=== PATIENT | female | born 1970 | race Caucasian/White ===

== ENCOUNTER 2021-12-31 07:33 | Emergency (ER) | payer MEDICAID, SELFPAY ==
--- OUTSIDE RECORDS SUMMARY | 2021-12-31 07:49 | XMS_ITS | Encounter Summary ---
:1970 Author Organization [facility] Address [address] [place] [address] Care Team Providers Name Role Phone Ro Norton APRN, C.N.PRaffy, D.N.P. Primary Care Provider Reason for Referral Outpatient (Routine) - Authorized Specialty Diagnoses / Procedures Referred By Contact Refer red To Contact Diagnoses Screening Mammogram Breast Cancer Ro Norton, MORGAN, [facility] Procedures BI Breast Screening Bilateral with Tomosynthesis C.N.P., D.N.P. [address] [phone] Referral ID Status Reason Start Date Expiration Date Visits V isits Requested Authorized [id number] Authorized 12/21/2021 12/21/2022 1 1 Encounter Details Date Type Department Care Team Description 12/21/2021 Orders Only [facility], Screening Mammogram MORGAN, C.N.P., Breast Cancer D.N.P. [address] [place] [phone] Social History Tobacco Use Types Packs/Day Years Used Date Smoking Tobacco: Every Day Cigarettes 0.5 Smokeless Tobacco: Never Comments: 4-5 cigarettes a day Alcohol Use Standard Drinks/Week Comments Yes 0 (1 standard drink = 0.6 oz pure alcoho l) ocassionally Alcohol Habits Answer Date Recorded How often do you have a drink containing alcohol? 2-3 times a week 02/25/2021 How many drinks containing alcohol do you have on a 1 or 2 02/25/2021 typical day when you are drinking? How often do you have six or more drinks on one Never 02/25/2021 occasion? Social Isolation Answer Date Recorded In a typical week, how many times do you More than three devon es a week 02/25/2021 talk on the phone with family, friends, or neighbors? How often do you get together with friends More than three t imes a week 02/25/2021 or relatives? How often do you attend nondenominational or Never 2021 jewish services? Do you belong to any clubs or No 02/25/2021 organizations such as nondenominational groups, unions, fraternal or athletic groups, or school groups? How often do you attend meetings of the Never 02/25/2021 clubs or organizations you belong to? Are you now , , , 02/25/2021 , never or living with a partner? Physical Activity Answer Date Recorded On average, how many days per week do you engage in moderate to 2 days 02/25/2021 strenuous exercise (like walking fast, running, jogging, dancing, swimming, biking, or other activities that cause a light or heavy sweat)? On average, how many minutes do you engage in exercise at th is 30 min 02/25/2021 level? Stress Answer Date Recorded Do you feel stress - tense, restless, nervous, or anxious, N ot at all 02/25/2021 or unable to sleep at night because your mind is troubled all the time - these days? Financial Resource Strain Answer Date Recorded How hard is it for you to pay for the very basics like Not h darinel at all 02/25/2021 food, housing, medical care, and heating? Intimate Partner Violence Answer Date Recorded Within the last year, have you been afraid of your partner o r No 02/25/2021 ex-partner? Within the last year, have you been humiliated or emotionall y No 02/25/2021 abused in other ways by your partner or ex-partner? Within the last year, have you been kicked, hit, slapped, or No 02/25/2021 otherwise physically hurt by your partner or ex-partner? Within the last year, have you been raped or forced to have any No 02/25/2021 kind of sexual activity by your partner or ex-partner? Food Insecurity Answer Date Recorded Within the past 12 months, you worried that your food would Never true 02/25/2021 run out before you got money to buy more. Within the past 12 months, the food you bought just didn't N ever true 02/25/2021 last and you didn't have money to get more. Transportation Needs Answer Date Recorded In the past 12 months, has lack of transportation kept you f rom No 02/25/2021 medical appointments or from getting medications? In the past 12 months, has lack of transportation kept you f rom No 02/25/2021 meetings, work, or getting things needed for daily living? Housing Stability Answer Date Recorded In the last 12 months, was there a time when you were not ab le No 02/25/2021 to pay the mortgage or rent on time? In the last 12 months, how many places have you lived? 1 02/25/2021 In the last 12 months, was there a time when you did not hav e a No 02/25/[address] or slept in a skilled nursing (including now)? Education Answer Date Recorded What is the highest level of school you have completed or 12 th grade 11/13/2019 the highest degree you have received? Sex Assigned at Date Recorded Female 10/14/2020 12:54 PM CDT documented as of this encounter Plan of Treatment Scheduled Orders Name Type Priority Associated Order Schedule Diagnoses BI Breast Screening Imaging RAD - Routine (most Screening Mamm ogram Expected: Bilateral with inpatients and all Breast Cancer 2021, Tomosynthesis outpatients) Expires: 06/19/2022 documented as of this encounter Visit Diagnoses Diagnosis Screening Mammogram Breast Cancer documented in this encounter Care Teams Hybrid Car Mechanic Relationship Specialty Start Date End Date Ro Norton APRN, C.N.P., PCP - General Family Medicine D.N.P. [address] [phone] documented as of this encounter
--- OUTSIDE RECORDS SUMMARY | 2021-12-31 07:49 | XMS_ITS | Encounter Summary ---
:1970 Author Organization [facility] Address [address] [place] [address] Care Team Providers Name Role Phone Ro Norton APRN, C.N.P., D.N.P. Primary Care Provider Reason for Visit Reason Comments Form Review Medical opinion form Encounter Details Date Type Department Care Team Description 08/03/2021 Clinical Communication Department of Ro Norton [facility] Review Family MedicineElan APRN, (Medical op inion [place] C.N.P., D.N.P. form ) Clinic, in [address] [address] [place], [place] [phone] (Work) [phone] Social History Tobacco Use Types Packs/Day Years [...] or relatives? How often do you attend gnosticist or Never 2021 anabaptist services? Do you belong to any clubs or No 02/25/2021 organizations such as gnosticist groups, unions, fraternal or athletic groups, or [...] place to sleep or slept in a fdc (including now)? Education Answer Date Recorded What is the highest level of school you have completed or 12 th grade 11/13/2019 the highest degree you have received? Sex Assigned at Date Recorded Female 10/14/2020 12:54 PM CDT documented as of this encounter Miscellaneous Notes Telephone Encounter - Karine Ordonez - 08/06/2021 8:27 AM CDT Form completed by the provider. Faxed back and sent to scanning. Telephone Encounter - Karine Ordonez - 08/04/2021 2:52 PM CDT Form emailed to Ro Norton for review/signature FIRE OFFICER: [facility] PHONE NUMBER: [phone] INFO REQUESTED: Medical Opinion Form INSTRUCTIONS: Fax back to [phone] Telephone Encounter - Mary Cali - 08/03/2021 3:32 PM CDT Work Comp form received by [facility] Forms Team on 08/03/21 from patient. Please allow 7-10 business days for form completion documented in this encounter Plan of Treatment Not on filedocumented as of this encounter Visit Diagnoses Not on filedocumented in this encounter Care Teams Physics Faculty Member Relationship Specialty Start Date End Date Ro Norton APRN, C.N.P., PCP - General Family Medicine D.N.P. [address] [phone] documented as of this encounter
--- OUTSIDE RECORDS SUMMARY | 2021-12-31 07:49 | XMS_ITS | Encounter Summary ---
:[address] [facility] Address [address] [place] [address] Care Team Providers Name Role Phone Ro Norton APRN, C.N.Kirsty, D.N.P. Primary Care Provider Reason for Referral Outpatient (Routine) - Authorized Specialty Diagnoses / Referred By Referred To Cont act Procedures Contact Gastroenterology and Diagnoses [facility] [place] MORA.N.Kirsty, D.N.P. [address] [place] [phone] Referral ID Status Reason Start Date Expiration Date Visits V isits Requested Authorized [id number] Authorized 09/14/2021 09/14/2022 1 1 Encounter Details Date Type Department Care Team Description 09/13/2021 Clinical Communication Department of Ro Holguin, Medicine, [place] MORGAN C.N.PRaffy, Clinic, in [place] [address] [phone] Social History Tobacco Use Types Packs/Day [...] or relatives? How often do you attend sikhism or Never 2021 baptist services? Do you belong to any clubs or No 02/25/2021 organizations such as sikhism groups, unions, fraternal or athletic groups, or [...] place to sleep or slept in a long term (including now)? Education Answer Date Recorded What is the highest level of school you have completed or 12 th grade 11/13/2019 the highest degree you have received? Sex Assigned at Date Recorded Female 10/14/2020 12:54 PM CDT documented as of this encounter Miscellaneous Notes Telephone Encounter - Ro Norton APRN, C.N.P., D.N.P. - 09/14/2021 12:50 PM CDT Order placed for GI-Hepatology. Please assist with scheduling Telephone Encounter - Nicole Carpenter L.P.N. - 09/14/2021 11:22 AM CDT Re-pended order, Routing to Ro Norton APRN, C.N.Kirsty, D.N.P. to see if she has any insight regarding this being a GI thing? Telephone Encounter - Rebekah Campbell - 09/13/2021 4:42 PM CDT ORDER/LAB/REFERRAL REQUEST: Name of test/referral/order requested: [id number] Reason for request: Ro placed an order, for Allison to be seen by Infectious Diseases, regarding Hepatitis, however that order should go to Gastroenterology. Please place a new order for this, as listed above, for [place]. Please contact Allison to schedule. Date needed: as soon as possible. Routing: -Order and Lab requests go to [facility] PCP PANEL MANAGERS -Referral Requests go to PCPs PLASTER MOLD MAKER pool Please pend orders prior to routing to PCP/Provider DOS/PASS are encouraged to pend orders prior to forwarding message documented in this encounter Plan of Treatment Scheduled Referrals Name Type Priority Associated Order Schedule Diagnoses Gastroenterology and Outpatient Routine Hepatitis C Expecte d: Hepatology - Hepatology Referral 08/21 consult (clinic) (Approximat e), Expires: 12/15/2022 documented as of this encounter Visit Diagnoses Diagnosis Hepatitis C - Primary documented in this encounter Care Teams Personal Development Mentor Relationship Specialty Start Date End Date Ro Norton APRN, C.N.P., PCP - General Family Medicine D.N.P. [address] [phone] documented as of this encounter
--- OUTSIDE RECORDS SUMMARY | 2021-12-31 07:49 | XMS_ITS | Encounter Summary ---
:1970 Author Organization [facility] Address [address] [place] [address] Care Team Providers Name Role Phone Ro Norton APRN, C.N.P., D.N.P. Primary Care Provider Encounter Details Date Type Department Care Team Description 07/23/2021 Orders Only Department of [facility] Ro Norton AP RN, Medicine, [place] C.N.P., D .N.P. [facility], [address] [place] [phone] Social History Tobacco Use Types Packs/Day Years [...] or relatives? How often do you attend zoroastrian or Never 2021 caodaism services? Do you belong to any clubs or No 02/25/2021 organizations such as zoroastrian groups, unions, fraternal or athletic groups, or [...] place to sleep or slept in a halfway (including now)? Education Answer Date Recorded What is the highest level of school you have completed or 12 th grade 11/13/2019 the highest degree you have received? Sex Assigned at Date Recorded Female 10/14/2020 12:54 PM CDT documented as of this encounter Plan of Treatment Not on filedocumented as of this encounter Visit Diagnoses Not on filedocumented in this encounter Care Teams Construction Mgr Relationship Specialty Start Date End Date Ro Norton APRN, C.N.P., PCP - General Family Medicine D.N.P. [address] [phone] documented as of this encounter
--- OUTSIDE RECORDS SUMMARY | 2021-12-31 07:49 | XMS_ITS | Encounter Summary ---
:1970 Author Organization [facility] Address [address] [place] [address] Care Team Providers Name Role Phone Ro Norton APRN, C.N.Kirsty, D.N.P. Primary Care Provider Encounter Details Date Type Department Care Team Description 10/20/2021 E-Visit [facility] Express [facility] Express [facility] Online for at the [facility] on MORGAN C. N.Kirsty Athlete's Foot the 4th Floor [address] [facility] [address] [place] [phone] Social History Tobacco Use Types Packs/Day Years [...] or relatives? How often do you attend samaritan or Never 2021 roman catholic services? Do you belong to any clubs or No 02/25/2021 organizations such as samaritan groups, unions, fraternal or athletic groups, or [...] place to sleep or slept in a assisted (including now)? Education Answer Date Recorded What is the highest level of school you have completed or 12 th grade 11/13/2019 the highest degree you have received? Sex Assigned at Date Recorded Female 10/14/2020 12:54 PM CDT documented as of this encounter Plan of Treatment Not on filedocumented as of this encounter Visit Diagnoses Diagnosis Onychomycosis - Primary documented in this encounter Care Teams Food Equipment Service Technician Relationship Specialty Start Date End Date Ro Norton APRN, C.N.P., PCP - General Family Medicine D.N.P. [address] [phone] documented as of this encounter
--- OUTSIDE RECORDS SUMMARY | 2021-12-31 07:49 | XMS_ITS | Encounter Summary ---
:1970 Author Organization [facility] Address [address] [place] [address] Care Team Providers Name Role Phone Ro Norton APRN, C.N.P., D.N.P. Primary Care Provider Reason for Visit Reason Comments Post Ed Visit Follow-up 06/26/21 Face Swelling. States she was out of Lasix and did not take for a few days and thin ks that was the cause. Other Patient states she had a yea st infection awhile ago and still feeling like she has one. Di scharge and itchy. Outpatient (Routine) - Closed Specialty Diagnoses / Procedures Referred By Contact Refer red To Contact Emergency Medicine Diagnoses Swelling Face Darryl Blackman, [facility] MORGAN, C.N.P. [address] [place] [id number] Referral ID Status Reason Start Date Expiration Date Visits Requ ested Visits Authorized [id number] Closed 06/26/2021 06/26/2022 1 1 Encounter Details Date Type Department Care Team Description 07/23/2021 Office Visit Department of [facility] Ro Norton, [place]ien[place] Estrogen Post Menopausal (Primary Dx); Medicine, Law MORA, C.N.P., Swelling F tramaine; [facility], in D.N.P. Screening Examination Diabetes Mellitus; [place] [address] Discharge V aginal; [facility] Screening For Venereal Disease; [address] [place] [address] Pap Smear Examination; [place] [address] Chronic Obstructive Pulmonary Disease Wi thout Exacerbation (HCC); [id number] Tobacco Use; Other Secondary Pulmonary Hypertension ( HCC); [phone] Hepatitis C (Fax) Social History Tobacco Use Types Packs/Day Years [...] or relatives? How often do you attend islam or Never 2021 church services? Do you belong to any clubs or No 02/25/2021 organizations such as islam groups, unions, fraternal or athletic groups, or [...] PM CDT documented as of this encounter Last Filed Vital Signs Vital Sign Reading Time Taken Comments Blood Pressure 123/86 07/23/2021 8:07 AM CDT Pulse 80 07/23/2021 8:07 AM CDT Temperature 36.2 ??C (97.2 ??F) 07/23/2021 8:07 AM CDT Respiratory Rate - - Oxygen Saturation 83% 07/23/2021 8:07 AM CDT Inhaled Oxygen Concentration - - Weight 63.9 kg (140 lb 14 oz) 07/23/2021 8:07 AM CDT Height - - Body Mass Index 19.79 09/29/2020 10:43 AM CDT documented in this encounter Progress Notes Ro Norton, MORGAN, C.N.P., D.N.P. - 07/23/2021 8:00 AM CDT SUBJECTIVE CHIEF COMPLAINT/REASON FOR VISIT Allison Schulz is a 50 y.o. female who presents for evaluation of Post Ed Visit Follow-up (06/26/21 Face Swelling. States she was out of Lasix and did not take for a few days and thinks that was the cause. ) and Other (Patient states she had a yeast infection awhile ago and still feeling like she has one. Discharge and itchy. ). HISTORY OF PRESENT ILLNESS Allison Schulz presents for the following concerns: 1. Vaginal discharge She had a suspected yeast infection and was treated with diflucan. She took both doses and reports symptoms mildly improved but did not resolve. She was sexually active one month ago with a new partner. She has white vaginal discharge without odor and with mild itching. 2. ED follow up-facial swelling This has resolved with re-initiation of her lasix. She was out of her medication for a week before her symptoms of facial swelling began. She reports that her entire body was puffy during this time, and not just her face but this was the most noticeable. 3. Social concerns Her boyfriend of several years in his sleep in December. This has caused her to lose her home which he was renting and main source of income as he supported her. She has been missing several important appointment as she does not currently have transportation andshe is currently homeless. She has been staying between her children's homes couch [employer]. She reports however that her daughter recently got a car that she is hoping she will be able to use to get to her appointments. OBJECTIVE PHYSICAL EXAMINATION Vital Signs: BP 123/86 (BP Location: Left arm, Patient Position: Sitting, Cuff Size: Regular) Pulse 80 Temp 36.2 ??C Wt 63.9 kg SpO2 (!) 83% BMI 19.79 kg/m?? Body mass index is 19.79 kg/m??. General: No acute distress. HEENT: Normocephalic. EOMI, PERRL, Canals patent, TMs normal. Oropharynx without lesion of mucosa. Neck: No nodes, no thyromegaly. No bruit auscultated. Heart: Regular rate and rhythm. No murmurs, gallops or rubs noted. Lungs: Non-labored breathing. Clear to auscultation bilaterally. No expiratory wheeze. Abdomen: Nontender to palpation. No hepato-splenomegaly. No mass. Normal bowel sounds in all 4 quadrants. Extremities: No FERNANDA. No neurovascular compromise. No cyanosis, clubbing or edema. Skin: No atypical moles or skin changes. Neuro: Alert and oriented x3, nonfocal, moving all 4 extremities. CN II-XII grossly intact. Psych: Affect is appropriate. ASSESSMENT / PLAN 1. Swelling Face Resolved. Advised patient on the importance of continuing on lasix as prescribed. - POST ED VISIT Family Medicine - Comprehensive Metabolic Panel; Future - CBC without Differential; Future - Hemoglobin A1c; Future 2. Screening Examination Diabetes Mellitus - Hemoglobin A1c 3. Discharge Vaginal Vaginitis panel positive for gardnerella, will treat with metrogel. - Vaginitis Panel; Future - Chlamydia / Gonorrhoeae Amplified RNA; Future - Chlamydia / Gonorrhoeae Amplified RNA - Vaginitis Panel 4. Screening For Venereal Disease - HBs Antigen Scrn, S; Future - Hepatitis B Core IgM Ab; Future - Hepatitis A IgM Ab, Serum; Future - HCV Ab w/Reflex to HCV PCR, Serum; Future - HBs Antibody, Serum; Future - HBc Total Ab, Serum; Future - HIV-1/-2 Ag and Ab Screen, Plasma; Future 5. Deficiency Estrogen Post Menopausal 6. Pap Smear Examination - ThinPrep w/HPV Co-Test Screen 7. Chronic Obstructive Pulmonary Disease Without Exacerbation (HCC) 8. Tobacco Use 9. Other Secondary Pulmonary Hypertension (HCC) Symptoms are stable at this time, she is due for follow up with cardiology, pulmonary and hepatology. She plans to schedule these as soon as possible as she now has transportation. 10. Hepatitis C Per patient this has not been treated. Will obtain labs for further evaluation. She has previously been referred to hepatology but has been unable to go due to transportation issues. She currently is asymptomatic but does have elevated liver enzymes. Patient was instructed to follow up in primary care if symptoms are worsening or there is no improvement over the next several days. Plan was discussed with patient and is in agreement with plan. All questions were answered, side effects of any/all new medications were discussed. Patient left in no acute distress. Ready to learn. No apparent learning barriers were identified. Learning preferences include listening. Explained diagnosis and treatment plan. Patient/Child/Caregiver expressed understanding of the content. Ro Norton APRN, C.N.P., D.N.P. Total time: 42 minutes documented in this encounter Plan of Treatment Not on filedocumented as of this encounter Procedures Procedure Name Priority Date/Time Associated Comments Diagnosis HBS ANTIGEN SCRN, S Routine 07/23/2021 8:56 AM Screening For R esults for this CDT Venereal Disease procedure a re in the results section. HIV-1/-2 AG AND AB Routine 07/23/2021 8:56 AM Screening For Re sults for this SCREEN, PLASMA CDT Venereal Disease procedure are in the results section. HCV AB W/REFLEX TO HCV Routine 07/23/2021 8:56 AM Screening Fo r Results for this PCR, S CDT Venereal Disease procedure a re in the results section. HEPATITIS A IGM AB Routine 07/23/2021 8:56 AM Screening For Re sults for this CDT Venereal Disease procedure a re in the results section. HEP B CORE AB, IGM Routine 07/23/2021 8:56 AM Screening For Re sults for this CDT Venereal Disease procedure a re in the results section. HBC TOTAL AB, SERUM Routine 07/23/2021 8:56 AM Screening For R esults for this CDT Venereal Disease procedure a re in the results section. HBS ANTIBODY, SERUM Routine 07/23/2021 8:56 AM Screening For R esults for this CDT Venereal Disease procedure a re in the results section. CBC WITHOUT Routine 07/23/2021 8:56 AM Swelling Face Results for this DIFFERENTIAL, B CDT procedure ar e in the results section. HEMOGLOBIN A1C, B Routine 07/23/2021 8:56 AM Swelling Fa ce Results for this CDT Screening procedure are i n Examination the results Diabetes Mellitus section. COMPREHENSIVE Routine 07/23/2021 8:56 AM Swelling Face Results for this METABOLIC PANEL, S/P CDT procedu re are in the results section. VAGINITIS PANEL Routine 07/23/2021 8:24 AM Discharge Vaginal R esults for this CDT procedure are i n the results section. THINPREP W/HPV CO-TEST Routine 07/23/2021 8:24 AM Pap Smear Results for this SCREEN CDT Examination procedure are i n the results section. HPV WITH GENOTYPING, Routine 07/23/2021 8:24 AM R esults for this PCR, THINPREP CDT procedure are in the results section. CHLAMYDIA/GONORRHOEAE Routine 07/23/2021 8:24 AM Discharge Vag inal Results for this AMPLIFIED RNA CDT procedure are in the results section. documented in this encounter Results (ABNORMAL) Hemoglobin A1c (07/23/2021 8:56 AM CDT) P athologist Signature Hemoglobin A1c, 6.3 (H) 4.2 - 5.6 07/23/2021 CNFL B % 9:41 AM CDT Comment: Hemoglobin A1c values of 5.7-6.4 percent indicate an increased risk for developing diabetes m sumit. In diabetic patients, HbA1c goals should be discussed with healthcare provider. Specimen Anatomical Collection Method Collection Time Receive d Time (Source) Location / / Volume Laterality Blood (Blood, 07/23/2021 8:56 AM 07/24/19 9:00 Venous) CDT AM CDT Ro Norton APRN, C.N.P., D.N.P. LAB BLOOD ADD-ON Performing Organization Address City/State/ZIP Code Phon e Number [facility]- [address] [place] [phone] [place] [address] [address] HIV-1/-2 Ag and Ab Screen, Plasma (07/23/2021 8:56 AM CDT) P athologist Signature HIV Ag/Ab Negative Negative 07/24/2021 ECLR Screen, P 12:35 PM CDT Comment: Negative result does not rule out HIV in fection. If exposure to HIV infection occurred <14 d ays ago, contact the laboratory to request additi on of HIV-1 RNA detection / quantification test. HIV-1 p24 Ag Screen, P Negative Negative 07/24/2021 12:35 PM CDT ECLR Comment: Negative result does not rule out HIV in fection. If exposure to HIV infection occurred <14 d ays ago, contact the laboratory to request additi on of HIV-1 RNA detection / quantification test. HIV-1 Ab Screen, P Negative Negative 07/24/2021 12:35 PM C DT ECLR Comment: Negative result does not rule out HIV in fection. If exposure to HIV infection occurred <14 d ays ago, contact the laboratory to request additi on of HIV-1 RNA detection / quantification test. HIV-2 Ab Screen, P Negative Negative 07/24/2021 12:35 PM C DT ECLR Comment: Negative result does not rule out HIV in fection. If exposure to HIV infection occurred <14 d ays ago, contact the laboratory to request additi on of HIV-1 RNA detection / quantification test. Specimen Anatomical Collection Method Collection Time Receive d Time (Source) Location / / Volume Laterality Blood (Blood, 07/23/2021 8:56 AM 07/24/19 22 2:37 Venous) CDT PM CDT Ro Norton APRN C.N.P., D.N.P. LAB MICROBIOLOGY - BLOOD ORDERABLES Performing Organization Address City/State/ZIP Code Phon e Number [facility]- [address] [place] [address] [phone] [facility] [place] [address] System in [address] (ABNORMAL) HBc Total Ab, Serum (07/23/2021 8:56 AM CDT) Patholo gist Method Time Signature HBc Total Ab, Positive (A) Negative 07/24/2021 ECLR w/Reflex, S 1:49 AM CDT Specimen Anatomical Collection Method Collection Time Receive d Time (Source) Location / / Volume Laterality Blood (Blood, 07/23/2021 8:56 AM 07/24/19 22 9:05 Venous) CDT PM CDT Bolivar Borden APRN.N.PRaffy, D.N.P. LAB MICROBIOLOGY - BLOOD ORDERABLES Performing Organization Address [facility] Phon e Number [facility]- [address] [place] [address] [phone] [facility] [place] [address] System in [address] HBs Antibody, Serum (07/23/2021 8:56 AM CDT) P athologist Signature HBs Antibody, Negative 07/24/2021 ECLR S 1:49 AM CDT Comment: ----REFERENCE VALUE---- Unvaccinated: Negative Vaccinated: Positive HBs Antibody, Quantitative, S <3.50 mIU/mL 07/24/2021 1:49 AM CDT ECLR Comment: ----REFERENCE VALUE---- <8.50: Negative 8.50-11.49: Indeterminate >=11.50: Positive Specimen Anatomical Collection Method Collection Time Receive d Time (Source) Location / / Volume Laterality Blood (Blood, 07/23/2021 8:56 AM 07/24/19 22 9:04 Venous) CDT PM CDT Bolivar Borden APRN.N.PRaffy, D.N.P. LAB MICROBIOLOGY - BLOOD ORDERABLES Performing Organization Address [facility] Phon e Number [facility]- [address] [place] [address] [phone] [facility] [place] [address] System [address] (ABNORMAL) HCV Ab w/Reflex to HCV PCR, Serum (07/23/2021 8:56 AM CDT) [facility] Method Time Signature HCV Ab Reactive (A) Negative 07/24/2021 ECLR Screen, S 1:50 AM CDT Comment: Biotin has been identified by the edna levy as a potential interfering substance. Higher concentrations of biotin may be found in multivitamins, mcgregor ir/nail supplements, and workout supplements. If the result d oes not match clinical observations, repeat testing af ter patient refrains from the use of supplements for at least 12 hours. Specimen Anatomical Collection Method Collection Time Receive d Time (Source) Location / / Volume Laterality Blood (Blood, 07/23/2021 8:56 AM 07/24/19 22 9:04 Venous) CDT PM CDT Narrative [facility]- [facility] - 07/24/2021 1:50 AM CDT Specimen Information: Specimen ID: [id number] Specimen Type: Blood Specimen Collection Start Date: 2 ??8:56 AM Specimen Received Date: 07/23/2021 ??9:04 PM Specimen ID: [id number] Specimen Type: Blood Specimen Collection Start Date: 2 ??8:56 AM Specimen Received Date: 07/23/2021 ??9:05 PM Ro Norton APRN, C.N.P., D.N.P. LAB MICROBIOLOGY - BLOOD ORDERABLES Performing Organization Address City/State/ZIP Code Phon e Number [facility]- [address] [place] [address] [phone] [facility] [place] [address] System in [address] Hepatitis A IgM Ab, Serum (07/23/2021 8:56 AM CDT) athologist Signature Hepatitis A Negative Negative 07/24/20[facility] Ab, S 1:49 AM CDT Comment: Biotin has been identified by the edna levy as a potential interfering substance. Higher concentrations of biotin may be found in multivitamins, mcgregor ir/nail supplements, and workout supplements. If the result d oes not match clinical observations, repeat testing af ter patient refrains from the use of supplements for at least 12 hours. Specimen Anatomical Collection Method Collection Time Receive d Time (Source) Location / / Volume Laterality Blood (Blood, 07/23/2021 8:56 AM 07/24/19 22 9:05 Venous) CDT PM CDT Bolivar Borden APRN.N.P., D.N.P. LAB MICROBIOLOGY - BLOOD ORDERABLES Performing Organization Address [facility] Phon e Number [facility]- [address] [place] [address] [phone] [facility] [place] [address] System in [address] Hepatitis B Core IgM Ab (07/23/2021 8:56 AM CDT) [facility] Method Time Signature HBc IgM Ab, S Nonreactive Nonreactive 07/24/2021 ECLR 1:49 AM CDT Comment: Biotin has been identified by the edna levy as a potential interfering substance. Higher concentrations of biotin may be found in multivitamins, mcgregor ir/nail supplements, and workout supplements. If the result d oes not match clinical observations, repeat testing af ter patient refrains from the use of supplements for at least 12 hours. Specimen Anatomical Collection Method Collection Time Receive d Time (Source) Location / / Volume Laterality Blood (Blood, 07/23/2021 8:56 AM 07/24/19 22 9:04 Venous) CDT PM CDT Bolivar Borden APRN.N.P., D.N.P. LAB MICROBIOLOGY - BLOOD ORDERABLES Performing Organization Address [facility] Phon e Number [facility]- [address] [place] [phone] [facility] [place] [address] System in [address] HBs Antigen Scrn, S (07/23/2021 8:56 AM CDT) [facility] Method Time Signature HBs Antigen Nonreactive Nonreactive 07/24/2021 ECLR Scrn, S 1:49 AM CDT Specimen Anatomical Collection Method Collection Time Receive d Time (Source) Location / / Volume Laterality Blood (Blood, 07/23/2021 8:56 AM 07/24/19 22 9:04 Venous) CDT PM CDT Bolivar Borden APRN.N.P., D.N.P. LAB MICROBIOLOGY - BLOOD ORDERABLES Performing Organization Address City/[facility] Phon e Number [facility]- [address] [place] [phone] [facility] [place] [address] System in [address] (ABNORMAL) CBC without Differential (07/23/2021 8:56 AM CDT) Patholo gist Method Time Signature Hemoglobin 17.7 (H) 11.6 - 07/23/2021 CNFL 15.0 g/dL 9:45 AM CDT Hematocrit 54.2 (H) 35.5 - 07/23/2021 CNFL 44.9 % 9:45 AM CDT Erythrocytes 5.85 (H) 3.92 - 07/23/2021 CNFL 5.13 9:45 AM CDT x10(12)/L MCV 92.6 78.2 - 07/23/2021 CNFL 97.9 fL 9:45 AM CDT RBC Distrib Width 16.7 (H) 12.2 - 07/23/2021 CNFL 16.1 % 9:45 AM CDT Platelet Count 129 (L) 157 - 371 07/23/2021 CNFL x10(9)/L 9:45 AM CDT Leukocytes 6.4 3.4 - 9.6 07/23/2021 CNFL x10(9)/L 9:45 AM CDT Specimen Anatomical Collection Method Collection Time Receive d Time (Source) Location / / Volume Laterality Blood (Blood, 07/23/2021 8:56 AM 07/24/19 9:01 Venous) CDT AM CDT Ro Norton APRN, C.N.P., D.N.P. LAB BLOOD ADD-ON Performing Organization Address City/[facility] Code Phon e Number [facility]- [address] [place] [address] [place] [address] [place] [address] (ABNORMAL) Comprehensive Metabolic Panel (07/23/2021 8:56 AM CDT) P athologist Signature Potassium, P 4.0 3.6 - 5.2 07/23/2021 CNFL mmol/L 9:34 AM CDT Sodium, P 139 135 - 145 07/23/2021 CNFL mmol/L 9:34 AM CDT Chloride, P 100 98 - 107 07/23/2021 CNFL mmol/L 9:34 AM CDT Bicarbonate, P 27 22 - 29 07/23/2021 CNFL mmol/L 9:34 AM CDT Anion Gap, P 12 7 - 15 07/23/2021 CNFL 9:34 AM CDT BUN (Blood Urea 17 6 - 21 07/23/2021 CNFL Nitrogen), P mg/dL 9:34 AM CDT Creatinine 0.79 0.59 - 07/23/2021 CNFL 1.04 mg/dL 9:34 AM CDT eGFR-Black/Afric >90 >=60 07/23/2021 CNFL an Jamaican mL/min/BSA 9:34 AM CDT Comment: ----ADDITIONAL INFORMATION---- Estimated GFR calculated using the 2009 CKD_EPI creatinine equation. eGFR Non-Black/ 89 >=60 mL/min/BSA 9:34 AM CDT CNFL Comment: ----ADDITIONAL INFORMATION---- Estimated GFR calculated using the 2009 CKD_EPI creatinine equation. Calcium, Total, P 9.3 8.6 - 10.0 mg/dL 07/23/2021 9:34 AM CDT CNFL Glucose, P 109 70 - 140 mg/dL 07/23/2021 9:34 AM CDT C NFL Protein, Total, P 6.8 6.3 - 7.9 g/dL 07/23/2021 9:34 A M CDT CNFL Albumin, P 3.8 3.5 - 5.0 g/dL 07/23/2021 9:34 AM CDT C NFL Aspartate Aminotransferase 236 (H) 8 - 43 U/L 07/23/2021 9 :34 AM CDT CNFL (AST), P Alkaline Phosphatase, P 139 (H) 35 - 104 U/L 07/23/2021 9: 34 AM CDT CNFL Alanine Aminotransferase 218 (H) 7 - 45 U/L 07/23/2021 9:3 4 AM CDT CNFL (ALT), P Bilirubin, Total, P 1.0 <=1.2 mg/dL 07/23/2021 9:34 AM CDT [facility] Specimen Anatomical Collection Method Collection Time Receive d Time (Source) Location / / Volume Laterality Blood (Blood, 07/23/2021 8:56 AM 07/24/19 9:01 Venous) CDT AM CDT Bolivar Bordne APRN.N.P., D.N.P. LAB BLOOD ADD-ON Performing Organization Address City/[facility] Phon e Number [facility]- [address] [place] [address] [place] [address] [place] [address] HPV with Genotyping, PCR, ThinPrep (07/23/2021 8:24 AM CDT) athologist [facility] HPV with Negative Negative 07/26/2021 ECLR Genotyping, 4:50 PM CDT ThinPrep, PCR Comment: Negative for high risk HPV by nucleic ac id amplification. ??The following high risk HPV types were not detected: 16, 18, 31, 33, 35, 39, 45, 51, 52, 56, 58, 59, 66, and 68 Specimen Anatomical Collection Method Collection Time Receive d Time (Source) Location / / Volume Laterality Varies 07/23/2021 8:24 AM CDT 12:56 PM CDT Ro Norton APRN, Bolivar.N.P., D.N.P. LAB MICROBIOLOGY - GENERAL ORDERABLES Performing Organization Address City/[facility] Phon e Number [facility]- [address] [place] [address] [phone] [facility] [place] [address] System in [address] ThinPrep w/HPV Co-Test Screen (07/23/2021 8:24 AM CDT) Component Value Ref Test Analysis Performed Pathologis t Range Method Time At [facility] 07/29/2021 ECLR 1:02 PM CDT Report COLT Burrows(ASCP) 07/29/2021 ECLR electronically 1:02 PM signed by CDT I verify that I have examined all relevant slides/materials for the specimen(s) and rendered or confirmed the diagnosis. Gross Description Received specimen 07/29/2021 ECL R in a ThinPrep 1:02 PM vial. CDT Pap Test Source Cervical/Endocervi 07/29/2021 ECLR lidya 1:02 PM CDT Clinical History \[id number]\ 07/29/2021 ECLR 1:02 PM CDT Interpretation Cervical/Endocervical ??(ThinPrep): 07/29/2021 ECLR 1:02 PM Satisfactory for Evaluation CDT Endocervical/transformation zone components absent Negative for Intraepithelial Lesion or Malignancy Shift in nirmal suggestive of bacterial vaginosis High Risk HPV: ??Negative Negative for High Risk HPV by nucleic acid amplification. The following High Risk HPV types were not detected: 16, 18, 31, 33, 35, 39, 45, 51, 52, 56, 58, 59, 66, and 68. Specimen Anatomical Collection Method Collection Time Receive d Time (Source) Location / / Volume Laterality Varies 07/23/2021 8:24 AM 2 (Cervix/Endocerv CDT 12:56 PM CD T ix) Narrative This result has an attachment that is no t available. Ro Norton APRN, C.N.P., D.N.P. LAB PAP PATHDX OR DERABLES Performing Organization Address City/State/ZIP Code Phon e Number [facility]- [address] [place] [address] [phone] [facility] [place] [address] System in [address] Chlamydia / Gonorrhoeae Amplified RNA (07/23/2021 8:24 AM CDT) [facility] gist Method Time Signature Source Swab, Vagina 07/26/2021 ECLR 12:49 PM CDT Chlamydia Negative Negative 07/26/2021 ECLR trachomatis 12:49 PM CDT amplified RNA Source Swab, Vagina 07/26/2021 ECLR 12:49 PM CDT Neisseria Negative Negative 07/26/2021 ECLR gonorrhoeae 12:49 PM CDT amplified RNA Specimen Anatomical Collection Method Collection Time Receive d Time (Source) Location / / Volume Laterality Varies (Vagina) 07/23/2021 8:24 AM 2021 2:36 CDT PM CDT Ro Norton APRN, C.N.P., D.N.P. LAB MICROBIOLOGY - GENERAL ORDERABLES Performing Organization Address City/State/[facility] Code Phon e Number [facility]- [address] [place] [address] [phone] [facility] [place] [address] System in [address] (ABNORMAL) Vaginitis Panel (07/23/2021 8:24 AM CDT) Patholo gist Method Time Signature Pema Negative Negative 07/23/2021 CNFL species, DNA 10:17 AM CDT Gardnerella Positive (A) Negative 07/23/2021 CNFL vaginalis, DNA 10:17 AM CDT Trichomonas Negative Negative 07/23/2021 CNFL vaginalis, DNA 10:17 AM CDT Specimen Anatomical Collection Method Collection Time Receive d Time (Source) Location / / Volume Laterality Swab (Vagina) 07/23/2021 8:24 AM 07/24/19 22 9:20 CDT AM CDT Ro Norton APRN C.N.P., D.N.P. LAB MICROBIOLOGY - GENERAL ORDERABLES Performing Organization Address City/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 [address] [place] [phone] documented as of this encounter
--- OUTSIDE RECORDS SUMMARY | 2021-12-31 07:49 | XMS_ITS | Encounter Summary ---
:1970 Author Organization [facility] Address [address] [place] [address] Care Team Providers Name Role Phone Ro Norton APRN, C.N.P., D.N.P. Primary Care Provider Encounter Details Date Type Department Care Team Description 09/22/2021 Orders Only Pharmacy Prior Auth [place] Paulette Barrera [phone] Social History Tobacco Use Types Packs/Day Years [...] or relatives? How often do you attend jewish or Never 2021 alevism services? Do you belong to any clubs or No 02/25/2021 organizations such as jewish groups, unions, fraternal or athletic groups, or [...] minutes do you engage in exercise at is 30 min 02/25/2021 level? Stress Answer [...] place to sleep or slept in a snf (including now)? Education Answer Date Recorded What is the highest level of school you have completed or 12 th grade 11/13/2019 the highest degree you have received? Sex Assigned at Date Recorded Female 10/14/2020 12:54 PM CDT documented as of this encounter Plan of Treatment Not on filedocumented as of this encounter Visit Diagnoses Not on filedocumented in this encounter Care Teams Lead Informatica Developer Relationship Specialty Start Date End Date Ro Norton APRN, C.N.P., PCP - General Family Medicine D.N.P. [id number] [place] [phone] documented as of this encounter
--- OUTSIDE RECORDS SUMMARY | 2021-12-31 07:49 | XMS_ITS | Encounter Summary ---
:1970 Author Organization [facility] Address [address] [place] [address] Care Team Providers Name Role Phone Ro Norton APRN, C.N.PRaffy, D.N.P. Primary Care Provider Encounter Details Date Type Department Care Team Description 07/26/2021 Orders Only Department of Family Ro Norton He patitis C (Primary Medicine, [place] MORGAN, C.N.P., Dx) Clinic, in [place] [address] [phone] Social History Tobacco Use Types Packs/Day Years [...] or relatives? How often do you attend gnosticism or Never 2021 islam services? Do you belong to any clubs or No 02/25/2021 organizations such as gnosticism groups, unions, fraternal or athletic groups, or [...] place to sleep or slept in a usp (including now)? Education Answer Date Recorded What [...] Primary documented in this encounter Care Teams Coal Shoveler Relationship Specialty Start Date End Date Ro Norton APRN, C.N.P., PCP - General Family Medicine D.N.P. [address] [phone] documented as of this encounter
--- OUTSIDE RECORDS SUMMARY | 2021-12-31 07:49 | XMS_ITS | Encounter Summary ---
:1970 Author Organization [facility] Address [address] [place] [address] Care Team Providers Name Role Phone Ro Norton APRN, C.N.P., D.N.P. Primary Care Provider Reason for Visit Reason Comments Form Review Inder Verbal Order Encounter Details Date Type Department Care Team Description 11/25/2021 Clinical Communication Department of Ro Norton Review Family MedicineElan APRN, (Inder Ve rbnikita Ullin C.N.P., D.N.P. Order) Clinic, in [address] [address] [place], [place] [phone] (Work) [phone] Social History Tobacco Use Types Packs/Day Years [...] or relatives? How often do you attend orthodox or Never 2021 shinto services? Do you belong to any clubs or No 02/25/2021 organizations such as orthodox groups, unions, fraternal or athletic groups, or [...] place to sleep or slept in a nursing home (including now)? Education Answer Date Recorded What is the highest level of school you have completed or 12 th grade 11/13/2019 the highest degree you have received? Sex Assigned at Date Recorded Female 10/14/2020 12:54 PM CDT documented as of this encounter Miscellaneous Notes Telephone Encounter - Meg Hensley - 11/25/2021 2:05 PM CDT Faxed back. Sent to be scanned into patient chart. Notation for electronic signature, date, full name, and credentials added. Telephone Encounter - Meg Hensley - 11/25/2021 10:24 AM CDT Form was emailed to LARRY Norton for electronic review/signature. FINISH PRODUCTION MANAGER: Inder PHONE NUMBER: [phone] INFO REQUESTED: portable oxygen INSTRUCTIONS: Fax information to [phone] documented in this encounter Plan of Treatment Not on filedocumented as of this encounter Visit Diagnoses Not on filedocumented in this encounter Care Teams Post Closer Relationship Specialty Start Date End Date Ro Norton APRN, C.N.P., PCP - General Family Medicine D.N.P. [address] [phone] documented as of this encounter
--- OUTSIDE RECORDS SUMMARY | 2021-12-31 07:49 | XMS_ITS | Encounter Summary ---
:1970 Author Organization [facility] Address [address] [place] [address] Care Team Providers Name Role Phone Ro Norton APRN, C.NDean, MileNRaffyPRaffy Primary Care Provider Encounter Details Date Type Department Care Team Description 07/23/2021 Hospital Encounter Department of Ro Norton Scr eening Lipid Laboratory Medicine in [place] MORANDean, Law Alston D.N.P. [address] [phone] Social History Tobacco Use Types Packs/Day Years [...] or relatives? How often do you attend adventist or Never 2021 jewish services? Do you belong to any clubs or No 02/25/2021 organizations such as adventist groups, unions, fraternal or athletic groups, or [...] place to sleep or slept in a longterm (including now)? Education Answer Date Recorded What is the highest level of school you have completed or 12 th grade 11/13/2019 the highest degree you have received? Sex Assigned at Date Recorded Female 10/14/2020 12:54 PM CDT documented as of this encounter Medications at Time of Discharge Medication Sig Dispensed Refills Start Date End Date albuterol 90 INHALE 2 PUFFS BY 25.5 g 3 03/31/202103/31 mcg/actuation inhaler MOUTH FOUR TIMES A DAY ascorbic acid, vitamin C, Take 100 mg by 0 (VITAMIN C) 100 mg tablet mouth daily. DME Oxygen Administer 1 L into 0 nostril(s) at bedtime. DME Order docosahexaenoic acid-epa Take 1,000 mg by 0 120-180 mg capsule mouth. fluticasone Inhale 1 puff 2 0 02/03/2021 propion-salmeteroL 250-50 (two) times a day. mcg/dose diskus inhaler fluticasone INHALE 1 PUFF BY 60 each 11 02/03/20212021 propion-salmeteroL 250-50 MOUTH TWO TIMES A mcg/dose diskus inhaler DAY, RINSE MOUTH WITH WATER AFTER USE TO REDUCE AFTERTASTE AND INCIDENCE OF CANDIDIASIS. DO NOT SWALLOW. furosemide (LASIX) 20 mg Take 1 tablet (20 90 tablet 3 05/0 10/2021 tablet mg total) by mouth daily. HYDROcodone-acetaminophen Take 1 tablet by 0 03/23 (NORCO) 5-325 mg per mouth every 4 tablet (four) hours as needed. for pain ipratropium-albuteroL Inhale 3 mL. 0 03/09/2021 0 03/09/2022 (DUONEB) 0.5-2.5 mg/3 mL nebulizer solution ipratropium-albuteroL INHALE 3 ML BY 270 mL 3 03/09/2021 03/09/2022 (DUONEB) 0.5-2.5 mg/3 mL MOUTH VIA NEBULIZER nebulizer solution FOUR TIMES A DAY NEEDED FOR SHORTNESS OF BREATH OR WHEEZING multivitamin capsule Take 1 capsule by 0 mouth daily. pramipexole (MIRAPEX) Take 2 tablets 180 tablet 3 04/15/2021 0.125 mg tablet (0.25 mg total) by mouth at bedtime. sildenafil (REVATIO) 20 Take 1 tablet (20 270 tablet 3 04/2704/27/2022 mg tabletIndications: mg total) by mouth Hypertension Pulmonary 3 (three) times a Primary (HCC) day. sildenafil (REVATIO) 20 Take 20 mg by 0 1 mg tablet mouth. zinc sulfate (ZINCATE) Take 220 mg by 0 220 (50) mg capsule mouth daily. metroNIDAZOLE (METROGEL) Insert 1 applicator 70 g 0 07/30/2021 0.75 % vaginal gel into the vagina 2 (two) times a day for 7 days. penicillin V potassium TAKE 1 TABLET BY 28 tablet 0 021 12/23/2021 (VEETIDS) 500 mg tablet MOUTH FOUR TIMES A DAY UNTIL GONE fluconazole (DIFLUCAN) Take one tablet now 2 tablet 0 06/2107/29/2021 150 mg tablet and then repeat on day 3. pramipexole (MIRAPEX) Take 2 tablets 180 tablet 3 04/15/2021 09/23/2021 0.125 mg tablet (0.25 mg total) by mouth at bedtime. documented as of this encounter Plan of Treatment Not on filedocumented as of this encounter Procedures Procedure Name Priority Date/Time Associated Diagnosis Comme nts LIPID PANEL, S Routine 07/23/2021 8:56 AM Screening Lipid Resu lts for this CDT procedure are i n the results section . documented in this encounter Results Lipid Panel (07/23/2021 8:56 AM CDT) P athologist Signature Cholesterol, 106 mg/dL 07/23/2021 CNFL Total 9:35 AM CDT Comment: ----REFERENCE VALUE---- Desirable: < 200 Borderline high: 200 - 239 High: > or = 240 Triglycerides 47 mg/dL 07/23/2021 9:35 AM CDT CNF L Comment: ----REFERENCE VALUE---- Normal: <150 Borderline high: 150-199 High: 200-499 Very high: > or =500 Cholesterol, HDL 63 >=50 mg/dL 07/23/2021 9:35 AM CDT CNFL Calculated LDL 34 mg/dL 07/23/2021 9:35 AM CDT CN FL Comment: ----REFERENCE VALUE---- Desirable: <100 mg/dL Above Desirable: 100-129 mg/dL Borderline High: 130-159 mg/dL High: 160-189 mg/dL Very High: >=190 mg/dL Cholesterol, Non-HDL, Calculated 43 mg/dL 022 9:35 AM CDT CNFL Comment: ----REFERENCE VALUE---- Desirable: <130 Above Desirable: 130-159 Borderline high: 160-189 High: 190-219 Very high: > or =220 Specimen Anatomical Collection Method Collection Time Receive d Time (Source) Location / / Volume Laterality Blood (Blood, 07/23/2021 8:56 AM 07/24/19 22 9:00 Venous) CDT AM CDT Ro Norton APRN C.N.P., D.N.P. LAB BLOOD ADD-ON Performing Organization Address City/State/ZIP Code Phon e Number [facility]- [address] [place] [id number] [place] [address] System in [address] documented in this encounter Visit Diagnoses Diagnosis Screening Lipid documented in this encounter Care Teams Billing Services Manager Relationship Specialty Start Date End Date Ro Norton APRN, C.N.P., PCP - General Family Medicine D.N.P. [address] [place], [place] [address] [address] documented as of this encounter
--- OUTSIDE RECORDS SUMMARY | 2021-12-31 07:49 | XMS_ITS | Encounter Summary ---
:1970 Author Organization [facility] Address [address] [place] [address] Care Team Providers Name Role Phone Ro Norton APRN, C.N.P., D.N.P. Primary Care Provider Encounter Details Date Type Department Care Team Description 09/21/2021 Orders Only Pharmacy Prior Auth [place] Paulette Barrera [phone] Social History Tobacco Use Types Packs/Day Years [...] or relatives? How often do you attend synagogue or Never 2021 christianity services? Do you belong to any clubs or No 02/25/2021 organizations such as synagogue groups, unions, fraternal or athletic groups, or [...] place to sleep or slept in a fci (including now)? Education Answer Date Recorded What is the highest level of school you have completed or 12 th grade 11/13/2019 the highest degree you have received? Sex Assigned at Date Recorded Female 10/14/2020 12:54 PM CDT documented as of this encounter Plan of Treatment Not on filedocumented as of this encounter Visit Diagnoses Not on filedocumented in this encounter Care Teams Double End Production Grinder Relationship Specialty Start Date End Date Ro Norton APRN, C.N.P., PCP - General Family Medicine D.N.P. [phone] [place] [phone] documented as of this encounter
--- OUTSIDE RECORDS SUMMARY | 2021-12-31 07:49 | XMS_ITS | Encounter Summary ---
:1970 Author Organization [facility] Address [address] [place] [address] Care Team Providers Name Role Phone Ro Norton APRN, C.N.P., D.N.P. Primary Care Provider Encounter Details Date Type Department Care Team Description 07/29/2021 Orders Only [facility] [employer] Ro Norton AP RN, Medicine, [place] C.N.P., D .N.P. [facility], [address] [place] [phone] Social History Tobacco Use Types Packs/Day Years [...] do you attend nondenominational or Never 2021 yarsanism services? Do you belong to any clubs [...] place to sleep or slept in a group home (including now)? Education Answer Date Recorded What is the highest level of school you have completed or 12 th grade 11/13/2019 the highest degree you have received? Sex Assigned at Date Recorded Female 10/14/2020 12:54 PM CDT documented as of this encounter Plan of Treatment Not on filedocumented as of this encounter Visit Diagnoses Not on filedocumented in this encounter Care Teams Pelletizer Tender Relationship Specialty Start Date End Date Ro Norotn APRN, C.N.P., PCP - General Family Medicine D.N.P. [address] [phone] documented as of this encounter
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
--- OUTSIDE RECORDS SUMMARY | 2021-12-31 07:50 | XMS_ITS | Encounter Summary ---
:1970 Author Organization [facility] Address [address] [place] [address] Care Team Providers Name Role Phone Ro Norton APRN, C.N.P., D.N.P. Primary Care Provider Reason for Visit Reason Comments Care Coordination Encounter Details Date Type Department Care Team Description 04/14/2021 Patient Outreach Department of Miranda Phillips, [facility] Sales Consultant rdination Cardiovascular Medicine R.N. in [facility] [address] [facility] [address] [place] [phone] Social History Tobacco Use Types Packs/Day Years Used Date Smoking Tobacco: Every Day Cigarettes Smokeless Tobacco: Never Comments: 4-5 cigarettes a [...] do you attend zoroastrian or Never 2021 denominational services? Do you belong to any clubs [...] PM CDT documented as of this encounter Progress Notes Miranda Phillips R.N. - 04/14/2021 9:41 AM CST Following up for restart of her Ambrisentan. I have been unable to reach her by phone. A message wasBatesHooko sent through the on line portal. ION BLOCK CLERK documented in this encounter Plan of Treatment Not on filedocumented as of this encounter Visit Diagnoses Not on filedocumented in this encounter Care Teams Section Weaver Relationship Specialty Start Date End Date Ro Norton APRN, C.N.P., PCP - General Family Medicine D.N.P. [address] [phone] documented as of this encounter
--- OUTSIDE RECORDS SUMMARY | 2021-12-31 07:50 | XMS_ITS | Encounter Summary ---
:1970 Author Organization [facility] Address [address] [place] [address] Care Team Providers Name Role Phone Ro Norton APRN C.N.P., D.N.P. Primary Care Provider Reason for Referral Medication Prior Authorization - Closed Specialty Diagnoses / Procedures Referred By Contact Refer red To Contact Diagnoses Hypertension Pulmonary Primary (HCC) Lubna Mcmillan M.D. [address] [place] [address] Referral ID Status Reason Start Date Expiration Date Visits Requ ested Visits Authorized [id number] Closed 1 1 DENT SERVICE COORDINATOR Encounter Details Date Type Department Care Team Description 04/27/2021 Orders Only RST CCM Lubna Mcmillan Hypertension Pulmonary [address] [facility] Michael Ansari Primary (HCC) [place], [place] [address] [facility] [address] [place] [address] Social History Tobacco Use Types Packs/Day Years [...] or relatives? How often do you attend scientology or Never 2021 episcopal services? Do you belong to any clubs or No 02/25/2021 organizations such as scientology groups, unions, [employer] or athletic groups, or school groups? How [...] place to sleep or slept in a retirement (including now)? Education Answer Date Recorded What is the highest level of school you have completed or 12 th grade 11/13/2019 the highest degree you have received? Sex Assigned at Date Recorded Female 10/14/2020 12:54 PM CDT documented as of this encounter Plan of Treatment Not on filedocumented as of this encounter Visit Diagnoses Diagnosis Hypertension Pulmonary Primary (HCC) documented in this encounter Care Teams Rehabilitation Director Relationship Specialty Start Date End Date Ro Norton APRN, C.N.P., PCP - General Family Medicine D.N.P. [address] [phone] documented as of this encounter
--- OUTSIDE RECORDS SUMMARY | 2021-12-31 07:50 | XMS_ITS | Encounter Summary ---
:1970 Author Organization [facility] Address [address] [place] [address] Care Team Providers Name Role Phone Ro Norton APRN, C.N.P., D.N.P. Primary Care Provider Encounter Details Date Type Department Care Team Description 06/04/2021 E-Visit [facility] Ingrid Steinberg E xpress Care Online for Care at the [place] Mikala MORA, M .S.N. Seasonal Allergies Building on the [address] [place], [place] [address] [facility] [address] [place], [place] [phone] (Wo rk) [address] [phone] Social History Tobacco Use Types Packs/Day Years [...] or relatives? How often do you attend adventism or Never 2021 adventism services? Do you belong to any clubs or No 02/25/2021 organizations such as adventism groups, unions, fraternal or athletic groups, or [...] as of this encounter Visit Diagnoses Diagnosis Congestion Nasal - Primary documented in this encounter Care Teams Pen Tender Relationship Specialty Start Date End Date Ro Norton APRN, C.N.P., PCP - General Family Medicine D.N.P. [address] [phone] documented as of this encounter
--- OUTSIDE RECORDS SUMMARY | 2021-12-31 07:50 | XMS_ITS | Encounter Summary ---
:1970 Author Organization [facility] Address [address] [place] [address] Care Team Providers Name Role Phone Ro Norton APRN, C.N.P., D.N.P. Primary Care Provider Reason for Visit Reason Comments Vaginal Discharge Encounter Details Date Type Department Care Team Description 07/17/2021 Telemedicine [facility] Express Sangeetha España Vaginal Care at [facility] in [place], P.A.-C. (Primary Dx) Bryon [place] [address] [facility] [address] [facility] [place] [id number] [phone] Social History Tobacco Use Types Packs/Day Years [...] or relatives? How often do you attend mormonism or Never 2021 sikhism services? Do you belong to any clubs or No 02/25/2021 organizations such as mormonism groups, unions, fraternal or athletic groups, or [...] place to sleep or slept in a fpc (including now)? Education Answer Date Recorded What is the highest level of school you have completed or 12 th grade 11/13/2019 the highest degree you have received? Sex Assigned at Date Recorded Female 10/14/2020 12:54 PM CDT documented as of this encounter Progress Notes [place]enia España P.A.-C. - 07/17/2021 11:20 AM CDT Telemedicine Visit The patient was present for a consult via real-time audio/video technology by Y[place]enia España P.A.-C., [facility] on 07/17/2021. SUBJECTIVE CHIEF COMPLAINT/REASON FOR VISIT Vaginal Discharge Allison is a 50 y.o. female who requested evaluation of Vaginal discharge. A video visit was conducted this morning with the patient from the [facility] in [place], [place]. The patient states for 2 days she has had vaginal itching and a whitish colored discharge. She has noticed moisture and wetness in the vaginal area so thinks that vaginalyeast is likely. She states she recalls having a vaginal yeast infection quite a number of years agowith similar symptoms. She states she is not concerned about sexually transmitted infections at thistime. She has currently not been on an antibiotic. She does not have type 2 diabetes. She is postmenopausal. She has no other concerns today. REVIEW OF SYSTEMS: REVIEW OF SYSTEMS MEDICAL HISTORY Reviewed briefly. ALLERGIES/CONTRAINDICATIONS Reviewed briefly. MEDICATIONS Reviewed. OBJECTIVE VITAL SIGNS This was a video encounter and no vitals completed. Home vital signs reviewed with the patient if available PHYSICAL EXAMINATION Constitutional General: She is not in acute distress. Appearance: She is not ill-appearing or toxic-appearing. Pulmonary Effort: Pulmonary effort is normal. No respiratory distress. Neurological Mental Status: She is alert and oriented to person, place, and time. ASSESSMENT / PLAN Vaginal yeast infection, presumed Diflucan 150 mg, take 1 tablet on day 1 and 1 tablet on day 3. If her vaginal symptoms do not resolve with this treatment, then she is to go into her local clinic for a eres-yx-zumn visit and evaluation. I also told the patient she could purchase an wdhh-klh-zybwfzq topical anti-yeast cream and apply this externally for some relief of her pruritus. She is to try to keep the vaginal area clean and drywith good air circulation; I therefore recommended loose fitting clothing. Patient voices understanding and is in agreement of plan. @[email or web address]@ Consult conducted via real-time audio/video technology by [place] España [facility].A.-C. [facility] Consult conducted via real-time video technology by Charleen Blanca in [facility] Rico the patient Allison Schulz on 07/17/2021. I personally spent a total of 10 minutes in yhu-mixr-iv-face video encounter performing a review of the record and/or discussion with the patient/caregiver as described above. The majority of the time was spent in the counseling and coordination of care. Y[place]enia España P.A.-C. documented in this encounter Plan of Treatment Not on filedocumented as of this encounter Visit Diagnoses Diagnosis Discharge Vaginal - Primary documented in this encounter Care Teams Rotating Equipment Specialist Relationship Specialty Start Date End Date Ro Norton APRN, C.N.P., PCP - General Family Medicine D.N.P. [address] [phone] documented as of this encounter
--- OUTSIDE RECORDS SUMMARY | 2021-12-31 07:50 | XMS_ITS | Encounter Summary ---
:1970 Author Organization [facility] Address [address] [place] [address] Care Team Providers Name Role Phone Ro Norton APRN, C.N.P., D.N.P. Primary Care Provider Encounter Details Date Type Department Care Team Description 06/22/2021 Orders Only [facility] PCP [facility] Sa rosalinda Erickson M.D. Screening Lipid [address] [place] [address] (Wo rk) Social History Tobacco Use Types Packs/Day Years [...] or relatives? How often do you attend baptism or Never 2021 evangelical services? Do you belong to any clubs or No 02/25/2021 organizations such as baptism groups, unions, fraternal or athletic groups, or [...] Not on filedocumented as of this encounter Results Lipid Panel (07/23/2021 8:56 [...] Organization Address City/State/ZIP Code Phon e Number [address] [address] [place] [address] [address] documented in this encounter Visit Diagnoses Diagnosis Screening Lipid documented in this encounter Care Teams Chief Of Planning Relationship Specialty Start Date End Date Ro Norton APRN, C.N.P., PCP - General Family Medicine D.N.P. [address] [place] [phone] documented as of this encounter
--- OUTSIDE RECORDS SUMMARY | 2021-12-31 07:50 | XMS_ITS | Encounter Summary ---
:1970 Author Organization [facility] Address [address] [place] [address] Care Team Providers Name Role Phone Ro Norton APRN, C.N.P., D.N.P. Primary Care Provider Reason for Visit Reason Comments Med Refill Encounter Details Date Type Department Care Team Description 06/25/2021 Refill Division of Pulmonary Medicine Lubna Cleary M.D. Med Refill in [facility] [address] [facility] [address] [place] [address] [place] [address] [phone] Social History Tobacco Use Types Packs/Day Years [...] do you attend samaritan or Never 2021 protestant services? Do you belong to any clubs [...] on filedocumented in this encounter Care Teams Hotel Director Relationship Specialty Start Date End Date Ro Norton APRN, C.N.P., PCP - General Family Medicine D.N.P. [address] [phone] documented as of this encounter
--- OUTSIDE RECORDS SUMMARY | 2021-12-31 07:50 | XMS_ITS | Encounter Summary ---
:1970 Author Organization [facility] Address [address] [place] [address] Care Team Providers Name Role Phone Ro Norton APRN C.N.P., D.N.P. Primary Care Provider Reason for Visit Reason Comments Med Refill Encounter Details Date Type Department Care Team Description 04/15/2021 Refill Department of Family Medicine, Angela Hernandez, Med Refill [facility], in [place] Ama[place]ani, [address] [phone] Social History Tobacco Use Types Packs/Day Years [...] do you attend synagogue or Never 2021 confucianist services? Do you belong to any clubs [...] on filedocumented in this encounter Care Teams Bottom Polisher Relationship Specialty Start Date End Date Ro Norton APRN, C.N.P., PCP - General Family Medicine D.N.P. [address] [phone] documented as of this encounter
--- OUTSIDE RECORDS SUMMARY | 2021-12-31 07:50 | XMS_ITS | Encounter Summary ---
:1970 Author Organization [facility] Address [address] [place] [address] Care Team Providers Name Role Phone Ro Norton APRN, C.NDean, D.N.P. Primary Care Provider Encounter Details Date Type Department Care Team Description 04/22/2021 E-Visit [facility] Express Paige Cooley, Expr ess Care Online for Care at the [place] MORGAN C.N.Taylor., Bladder In fection Building on the 4th D.N.P. (female anatomy, age Floor [address] [place] [address] 12-65 years) [address] [place] [phone] [phone] Social History Tobacco Use Types Packs/Day Years [...] or relatives? How often do you attend zoroastrianism or Never 2021 synagogue services? Do you belong to any clubs or No 02/25/2021 organizations such as zoroastrianism groups, unions, fraternal or athletic groups, or [...] as of this encounter Visit Diagnoses Diagnosis Symptom Urinary - Primary documented in this encounter Care Teams Robotics Engineer Relationship Specialty Start Date End Date Ro Norton APRN, C.N.P., PCP - General Family Medicine D.N.P. [address] [phone] documented as of this encounter
--- OUTSIDE RECORDS SUMMARY | 2021-12-31 07:50 | XMS_ITS | Encounter Summary ---
:1970 Author Organization [facility] Address [address] [place] [address] Care Team Providers Name Role Phone Ro Norton APRN, C.N.P., D.N.P. Primary Care Provider Encounter Details Date Type Department Care Team Description 05/18/2021 Orders Only Pharmacy Prior Auth Kayy James [phone] Social History Tobacco Use Types Packs/Day Years [...] or relatives? How often do you attend congregational or Never 2021 episcopalian services? Do you belong to any clubs or No 02/25/2021 organizations such as congregational groups, unions, fraternal or athletic groups, or [...] on filedocumented in this encounter Care Teams Parachute Accessories Attacher Relationship Specialty Start Date End Date Ro Norton APRN, C.N.P., PCP - General Family Medicine D.N.P. [address] [phone] documented as of this encounter
--- OUTSIDE RECORDS SUMMARY | 2021-12-31 07:50 | XMS_ITS | Encounter Summary ---
:1970 Author Organization [facility] Address [address] [place] [address] Care Team Providers Name Role Phone Ro Norton APRN, C.N.P., D.N.P. Primary Care Provider Reason for Visit Reason Comments Care Coordination Encounter Details Date Type Department Care Team Description 04/21/2021 Patient Outreach Department of Miranda Phillips, Dilan Lieutenant General rdination Cardiovascular Medicine R.N. in [facility] [address] [facility] [address] [place] [phone] Social History Tobacco Use Types Packs/Day Years [...] do you attend scientology or Never 2021 catholic services? Do you belong to any clubs or No 02/25/2021 organizations such as scientology groups, unions, fraternal or athletic groups, or [...] encounter Progress Notes Miranda Phillips R.N. - 04/21/2021 1:27 PM CST She has not returned calls or portal messages regarding her pulmonary arterial hypertension medication, ambrisentan. We will not make further attempts to reach her at this time. L REFEREE documented in this encounter Plan of Treatment Not on filedocumented as of this encounter Visit Diagnoses Not on filedocumented in this encounter Care Teams Professor Of Fine Art Relationship Specialty Start Date End Date Ro Norton APRN, C.N.P., PCP - General Family Medicine D.N.P. [address] [phone] documented as of this encounter
--- OUTSIDE RECORDS SUMMARY | 2021-12-31 07:50 | XMS_ITS | Encounter Summary ---
:1970 Author Organization [facility] Address [address] [place] [address] Care Team Providers Name Role Phone Ro Norton APRN C.N.P., D.N.P. Primary Care Provider Reason for Referral Outpatient (Routine) - Authorized Specialty Diagnoses / Procedures Referred By Contact Refer red To Contact Orthopedic Surgery Yolie Leigh [facility] P.A.-C. [address] [place] [address] Referral ID Status Reason Start Date Expiration Date Visits V isits Requested Authorized [id number] Authorized 04/21/2021 04/21/2022 1 1 ANALYST Outpatient (Routine) - Closed Specialty Diagnoses / Procedures Referred By Contact Refer paula To Contact Diagnoses Pain Wrist Right Yolie Leigh [facility] Procedures DX Wrist Right 3+ Views P.A.-C. [address] [place] [address] Referral ID Status Reason Start Date Expiration Date Visits Requ ested Visits Authorized [id number] Closed 04/21/2021 04/21/2022 1 1 ANALYST Reason for Visit Appointment Request (Routine) - Closed Specialty Diagnoses / Procedures Referred By Contact Refer paula To Contact Family Medicine Referral ID Status Reason Start Date Expiration Date Visits Requ ested Visits Authorized [id number] Closed 04/06/2021 04/06/2022 1 1 Encounter Details Date Type Department Care Team Description 04/21/2021 Comprehensive Visit Department of [place] Leigh Wr ist Right Orthopedic Surgery Yolie Cabrera [place] Dx[place] [address] [phone] Social History Tobacco Use Types Packs/Day Years [...] or relatives? How often do you attend mandaeism or Never 2021 baptism services? Do you belong to any clubs or No 02/25/2021 organizations such as mandaeism groups, unions, fraternal or athletic groups, or [...] place to sleep or slept in a senior living (including now)? Education Answer Date Recorded What is the highest level of school you have completed or 12 th grade 11/13/2019 the highest degree you have received? Sex Assigned at Date Recorded Female 10/14/2020 12:54 PM CDT documented as of this encounter Consult Notes Yolie Leigh P.A.-C. - 04/21/2021 10:02 AM CST SUBJECTIVE CHIEF COMPLAINT/REASON FOR VISIT Right wrist fracture. HISTORY OF PRESENT ILLNESS The patient is a right-hand dominant female who sustained an injury on 04/02/2021 when she fell on the ice fracturing her wrist, presented to [facility] on 04/03/2021 and was placed in a plaster splint which was uncomfortable for her. She had followup scheduled here, but had no-showed that appointment because she did not have a ride. She is currently living at her daughter's house. Her boyfriend recently . She does not have a vehicle. It was difficult for her to get this appointment today even. She had removed her plaster splint on her own accord a few days ago and then at leastput on a Velcro wrist splint which she has been wearing. She tells me she has been nonweightbearing.No new injuries. She has no pain with just sitting. She does try to keep this arm elevated. No previous fractures to the wrist. ALLERGIES/CONTRAINDICATIONS As noted in the EMR. MEDICAL HISTORY As noted in the EMR. SURGICAL HISTORY As noted in the EMR. SOCIAL HISTORY The patient's boyfriend recently of a heart attack. She is a 1/2 pack per day smoker, trying to quit. 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 She is currently not working. She has a son who goes to [place] and plays baseball and she has2 daughters, working. OBJECTIVE PHYSICAL EXAMINATION Right Upper Extremity: Right wrist: She does have a moderate amount of swelling of the dorsum of thewrist with pain with palpation of the wrist. The integument is intact at the digits. Motor is grossly intact. Pulses and perfusion intact. Neurosensory intact to light touch. No issues at the right elbow. Full range of motion. Pain free. DIAGNOSTICS X-rays were reviewed with Dr. Mcmahon. ASSESSMENT / PLAN #1 Right distal radius fracture, now 3 weeks out from injury PLAN: We discussed treating this conservatively, placing a cast which she will stay in for an additional 3 weeks. She will see me back for cast removal and repeat x-rays at that time. Strict nonweightbearing status. Cast care discussed. Yolie Leigh P.A.-C. CT CT Job ID: [id number]/[facility] ANALYST documented in this encounter Plan of Treatment Scheduled Referrals Name Type Priority Associated Order Schedule Diagnoses Orthopedic Surgery Outpatient Referral Routine Ex pected: office visit 05/12/2021 (clinic) (Approximate), Expires: 07/22/2022 documented as of this encounter Results DX Wrist Right 3+ Views (04/21/2021 10:35 AM OIL ANALYST) Anatomical Region Laterality Modality Upper Extremity, Wrist, Musculoskeletal RST LOS, Right Digital Radiography Musculoskeletal ARZ LOS, Muskuloskeletal FLA LOS Specimen (Source) Anatomical Collection Method Collection Time Re ceived Time Location / / Volume Laterality 04/21/2021 10:51 AM OIL ANALYST Impressions 04/21/2021 10:54 AM OIL ANALYST Impacted moderately comminuted, minimally displaced intra-articular fracture the distal right radius with extension to the radio carpal and distal radioulnar joints. Slight dorsal angulation of the distal fracture fragme nt with mild dorsal tilt of the radial articular surface. Radial inclination is preserved on the f rontal image. Subtle tiny defect of the tip of the ulnar styloid could be posttraumatic. No defin ed ulnar styloid fractures. Slight negative ulnar variance. Remainder negative. Narrative 04/21/2021 10:54 AM OIL ANALYST EXAM: ??DX WRIST RIGHT 3+ VIEWS Procedure Note Hai Dawkins M.D. - 04/21/2021Format ting of this note might be different from the original. EXAM: DX WRIST RIGHT 3+ VIEWS IMPRESSION: Impacted moderately comminuted, minimall y displaced intra-articular fracture the distal right radius with extension to the radio carpal and distal radioulnar joints. Slight dorsal angulation of the distal fracture fragme nt with mild dorsal tilt of the radial articular surface. Radial inclination is preserved on the f rontal image. Subtle tiny defect of the tip of the ulnar styloid could be posttraumatic. No defin ed ulnar styloid fractures. Slight negative ulnar variance. Remainder negative. Yolie Leigh P.A.-C. IMG DIAGNOSTIC IMAGING PRO CEDURES documented in this encounter Visit Diagnoses Diagnosis Pain Wrist Right - Primary Pain Wrist Right documented in this encounter Care Teams Wood Barrel Reconditioner Relationship Specialty Start Date End Date Ro Norton APRN, C.N.P., PCP - General Family Medicine D.N.P. [address] [phone] documented as of this encounter
--- OUTSIDE RECORDS SUMMARY | 2021-12-31 07:50 | XMS_ITS | Encounter Summary ---
:1970 Author Organization [facility] Address [address] [place] [address] Care Team Providers Name Role Phone Ro Norton APRN, C.N.P., D.N.P. Primary Care Provider Encounter Details Date Type Department Care Team Description 05/17/2021 Orders Only Pharmacy Prior Auth RO JolleyMiles [phone] Social History Tobacco Use Types Packs/Day Years [...] do you attend gnosticist or Never 2021 congregation services? Do you belong to any clubs [...] on filedocumented in this encounter Care Teams Customs Brokerage Agent Relationship Specialty Start Date End Date Ro Norton APRN, C.N.P., PCP - General Family Medicine D.N.P. [address] [phone] documented as of this encounter
--- OUTSIDE RECORDS SUMMARY | 2021-12-31 07:50 | XMS_ITS | Encounter Summary ---
:1970 Author Organization [facility] Address [address] [place] [address] Care Team Providers Name Role Phone Ro Norton APRN, C.N.P., D.N.P. Primary Care Provider Encounter Details Date Type Department Care Team Description 06/28/2021 Orders Only Division of Pulmonary Archana Mcmillan M.D. Medicine in [place], [facility] [address] [place], [place] [address] [facility] [address] [place] [address] [phone] Social History Tobacco Use Types Packs/Day Years [...] or relatives? How often do you attend pentecostalism or Never 2021 buddhist services? Do you belong to any clubs or No 02/25/2021 organizations such as pentecostalism groups, unions, fraternal or athletic groups, or [...] place to sleep or slept in a correction (including now)? Education Answer Date Recorded What is the highest level of school you have completed or 12 th grade 11/13/2019 the highest degree you have received? Sex Assigned at Date Recorded Female 10/14/2020 12:54 PM CDT documented as of this encounter Plan of Treatment Not on filedocumented as of this encounter Visit Diagnoses Not on filedocumented in this encounter Care Teams State Trooper Relationship Specialty Start Date End Date Ro Norton APRN, C.N.P., PCP - General Family Medicine D.N.P. [address] [phone] documented as of this encounter
--- OUTSIDE RECORDS SUMMARY | 2021-12-31 07:50 | XMS_ITS | Encounter Summary ---
:1970 Author Organization [facility] Address [address] [place] [address] Care Team Providers Name Role Phone Ro Norton APRN, C.N.P., D.N.P. Primary Care Provider Reason for Visit Reason Comments Rx Prior Authorization PA DENIED SILDENAFIL 20 MG T AB Encounter Details Date Type Department Care Team Description 06/08/2021 Clinical Communication Pharmacy Prior Auth Robert Mccarty Rx Prior RO [phone] Authorization (PA DENIED SILDENAF [place] 20 MG TAB) Social History Tobacco Use Types Packs/Day Years [...] or relatives? How often do you attend temple or Never 2021 episcopal services? Do you belong to any clubs or No 02/25/2021 organizations such as temple groups, unions, fraternal or athletic groups, or [...] this encounter Miscellaneous Notes Telephone Encounter - Miranda Phillips R.N. - 06/08/2021 2:38 PM CDT Her [employer] [facility] [employer] insurance terminated 04/19/2021. That is the reason behind the denial. Her cell phone is out of service. I called her home phone. She confirmed she has [employer] insurance.She did not have the letter on her with the phone number for [employer] at the time of my call. She indicates she has not received a card yet with an ID number. On 04/27/2021 the sildenafil [facility]. [facility] [place] indicates they transferred the prescription to the [facility] [employer] - . The [facility] pharmacy indicates her [place] Medicaid numberis [id number]. I called [place] Medicaid at [phone] and they indicated we should call [facility]. Trevor wait for Allison to call back with the [facility] number. Telephone Encounter - Robert Mccarty - 06/08/2021 12:44 PM CDT Images from the original note were not included. The patient's health insurer has denied prior authorization for SILDENAFIL 20 MG TAB. A quick view of the denial reason is in this communication message. To view the denial letter: 1. Go to Snapshot 2. Go to the purple Medications box 3. Click on the blue Prior Authorizations link 4. Under Denied, click on the blue medication link to open and view the attachment. As the prescriber your options are: ??? Appeal the decision to the insurer directly (see denial letter for how to appeal). ??? Write a new Rx for an alternative medication therapy. ??? Release the Rx to the pharmacy so the patient can pay out of pocket if they desire. To Release Rx: Open this encounter, go to Meds & Orders, click on the medication, and click the blue ???Release Rx?? button. PLEASE NOTE: If the ???Release Rx?? button is not visible, the Rx has already been released to the pharmacy. If you have questions, please reply via QuickNote to Taylor AGUDELO. Thank you, The [facility] Team documented in this encounter Plan of Treatment Not on filedocumented as of this encounter Visit Diagnoses Not on filedocumented in this encounter Care Teams Gift Basket Packer Relationship Specialty Start Date End Date Ro Norton APRN, C.N.P., PCP - General Family Medicine D.N.P. [address] [phone] documented as of this encounter
--- OUTSIDE RECORDS SUMMARY | 2021-12-31 07:50 | XMS_ITS | Encounter Summary ---
:1970 Author Organization [facility] Address [address] [place] [address] Care Team Providers Name Role Phone Ro Norton APRN, C.N.P., D.N.P. Primary Care Provider Reason for Visit Reason Comments Med Refill Encounter Details Date Type Department Care Team Description 03/31/2021 Clinical Communication [facility] Karine Coles Med Refill [place] A, Pharm.D., [address] [place] [address] R.Ph. [place] [phone] [facility] [phone] [place] [phone] Social History Tobacco Use Types Packs/Day Years [...] or relatives? How often do you attend sabianist or Never 2021 jainism services? Do you belong to any clubs or No 02/25/2021 organizations such as sabianist groups, unions, fraternal or athletic groups, or [...] encounter Miscellaneous Notes Telephone Encounter - Karine Coles, Pharm.D., R.Ph. - 03/31/2021 9:59 AM CST Patient requesting a refill of albuterol inhaler. Thank you, [facility] - [place] T LINER documented in this encounter Plan of Treatment Not on filedocumented as of this encounter Visit Diagnoses Not on filedocumented in this encounter Care Teams Geology Associate Relationship Specialty Start Date End Date Ro Norton APRN, C.N.P., PCP - General Family Medicine D.N.P. [address] [phone] documented as of this encounter
--- OUTSIDE RECORDS SUMMARY | 2021-12-31 07:50 | XMS_ITS | Encounter Summary ---
:1970 Author Organization [facility] Address [address] [place] [address] Care Team Providers Name Role Phone Ro Norton APRN, C.N.P., D.N.P. Primary Care Provider Reason for Referral Outpatient (Routine) - Closed Specialty Diagnoses / Procedures Referred By Contact Refer red To Contact Emergency Medicine Diagnoses Swelling Face Darryl Blackman, [facility] MORGAN, C.N.P. [address] [place] [address] Referral ID Status Reason Start Date Expiration Date Visits Requ ested Visits Authorized [id number] Closed 06/26/2021 06/26/2022 1 1 Reason for Visit Reason Comments Facial Swelling Ongoing facial swelling for about two weeks. No difficulty with breathing. Encounter Details Date Type Department Care Team Description 06/26/2021 Emergency [facility] Darryl Blackman , Swelling Face (Primary Dx); Department TECHNICAL ADMINISTRATOR, C.N.P. Allergy Unspecified Initial [address] [place] [address] [place] [phone] (Wo rk) Social History Tobacco Use Types [...] or relatives? How often do you attend scientologist or Never 2021 mandaeism services? Do you belong to any clubs or No 02/25/2021 organizations such as scientologist groups, unions, fraternal or athletic groups, or [...] to sleep or slept in a senior care (including now)? Education Answer Date Recorded What is the highest level of school you have completed or 12 th grade 11/13/2019 the highest degree you have received? Sex Assigned at Date Recorded Female 10/14/2020 12:54 PM CDT documented as of this encounter Last Filed Vital Signs Vital Sign Reading Time Taken Comments Blood Pressure 135/99 06/26/2021 12:00 PM CDT Pulse 90 06/26/2021 12:00 PM CDT Temperature 36.5 ??C (97.7 ??F) 06/26/2021 11:53 AM CDT Respiratory Rate - - Oxygen Saturation 93% 06/26/2021 12:00 PM CDT Inhaled Oxygen Concentration - - Weight 78.5 kg (173 lb 1 oz) 06/26/2021 11:54 AM CDT Height - - Body Mass Index 24.31 09/29/2020 10:43 AM CDT documented in this encounter Discharge Instructions AttachmentsThe following attachments cannot be sent through Care Everywhere. Allergies Adult Nppy-oq-Uyhf (Pashto)documented in this encounter Medications at Time of Discharge Medication Sig Dispensed Refills Start Date End Date ascorbic acid, vitamin C, Take 100 mg by 0 (VITAMIN C) 100 mg tablet mouth daily. DME Oxygen Administer 1 L into 0 nostril(s) at bedtime. DME Order docosahexaenoic acid-epa Take 1,000 mg by 0 120-180 mg capsule mouth. fluticasone Inhale 1 puff 2 0 02/03/2021 propion-salmeteroL 250-50 (two) times a day. mcg/dose diskus inhaler ipratropium-albuteroL Inhale 3 mL. 0 03/09/2021 0 03/09/2022 (DUONEB) 0.5-2.5 mg/3 mL nebulizer solution multivitamin capsule Take 1 capsule by 0 mouth daily. sildenafil (REVATIO) 20 Take 1 tablet (20 270 tablet 3 04/2704/27/2022 mg tabletIndications: mg total) by mouth Hypertension Pulmonary 3 (three) times a Primary (HCC) day. sildenafil (REVATIO) 20 Take 20 mg by 0 1 mg tablet mouth. zinc sulfate (ZINCATE) Take 220 mg by 0 220 (50) mg capsule mouth daily. albuterol 90 INHALE 2 PUFFS BY 25.5 g 3 03/31/202103/31 mcg/actuation inhaler MOUTH FOUR TIMES A DAY fluticasone INHALE 1 PUFF BY 60 each 11 02/03/20212021 propion-salmeteroL 250-50 MOUTH TWO TIMES A mcg/dose diskus inhaler DAY, RINSE MOUTH WITH WATER AFTER USE TO REDUCE AFTERTASTE AND INCIDENCE OF CANDIDIASIS. DO NOT SWALLOW. HYDROcodone-acetaminophen Take 1 tablet by 0 03/23 (NORCO) 5-325 mg per mouth every 4 tablet (four) hours as needed. for pain ipratropium-albuteroL INHALE 3 ML BY 270 mL 3 03/09/2021 03/09/2022 (DUONEB) 0.5-2.5 mg/3 mL MOUTH VIA NEBULIZER nebulizer solution FOUR TIMES A DAY NEEDED FOR SHORTNESS OF BREATH OR WHEEZING loratadine (CLARITIN) 10 Take 1 tablet (10 10 tablet 0 05/0 08/2021 mg tablet mg total) by mouth daily for 10 days. pramipexole (MIRAPEX) Take 2 tablets 180 tablet 3 04/15/2021 0.125 mg tablet (0.25 mg total) by mouth at bedtime. pramipexole (MIRAPEX) Take 2 tablets 180 tablet 3 04/15/2021 09/23/2021 0.125 mg tablet (0.25 mg total) by mouth at bedtime. penicillin V potassium TAKE 1 TABLET BY 28 tablet 0 021 12/23/2021 (VEETIDS) 500 mg tablet MOUTH FOUR TIMES A DAY UNTIL GONE diphenhydrAMINE Take 1 capsule (25 10 capsule 0 06/26/2021 0 07/23/2021 (BENADRYL) 25 mg capsule mg total) by mouth at bedtime for 10 days. furosemide (LASIX) 20 mg Take 1 tablet (20 90 tablet 3 10/202106/28/2021 tablet mg total) by mouth daily. nitrofurantoin 0 04/23/2021 07/23/2021 monohydrate (MACROBID) 100 mg capsule phenazopyridine HCl Take by mouth. 0 0 07/23/2021 (PYRIDIUM ORAL) predniSONE (DELTASONE) 10 4 tabs X 4 days 3 40 tablet 0 08/202107/23/2021 mg tablet tabs X 4 days 2 tabs X 4 days 1 tab X 4 days -with food documented as of this encounter ED Notes Darryl Blackman APRN, C.N.P. - 06/26/2021 12:12 PM CDT Images from the original note were not included. SUBJECTIVE CHIEF COMPLAINT/REASON FOR VISIT Facial Swelling (Ongoing facial swelling for about two weeks. No difficulty with breathing.) HISTORY OF PRESENT ILLNESS Patient is a 45-year-old female coming in for evaluation of bilateral facial swelling ongoing for the past 2 weeks. She notes no recent fevers chills or other infectious etiology. She has no pain with extraocular motions. She denies any significant redness just puffy eyes no spreading into her cheeks.She did have an urgent care visit and they recommended her doing saline sprays she has not noticed any significant improvement in notes that the swelling is worse in the morning when she wakes up. She has no other swelling noted in her body and she has no airway compromise at this time. She has not tried anything at home other than nasal sprays. She denies any dental pain fevers. She is not appear in any acute distress at this time. History provided by: Patient REVIEW OF SYSTEMS Constitutional: Negative for chills, fatigue and fever. HENT: Positive for facial swelling. Negative for congestion, dental problem, mouth sores, sinus pressure, sore throat and trouble swallowing. Eyes: Positive for eliot-orbital edema. Negative for photophobia and visual disturbance. Respiratory: Negative for cough and shortness of breath. Cardiovascular: Negative for chest pain. Gastrointestinal: Negative for abdominal pain, nausea and vomiting. Genitourinary: Negative for flank pain, frequency and urgency. Musculoskeletal: Negative for neck pain and extremity pain. Skin: Negative for color change, itching, rash and wound. Allergic/Immunologic: Negative for immunocompromised state. Neurological: Negative for weakness and numbness. Hematological: Does not bruise/bleed easily. Psychiatric/Behavioral: The patient is not nervous/anxious. OBJECTIVE Initial Vitals Temperature Pulse Rate Heart Rate Resp Blood Pressure SpO2 06/26/21 1153 06/26/21 1153 -- -- 06/26/21 1153 06/26/21 1153 36.5 ??C 98 (!) 138/93 91 % Pain Score 06/26/21 1154 0 - No pain PHYSICAL EXAMINATION Constitutional: Vital signs are normal. She appears not listless and not lethargic. She is active and cooperative. She is easily aroused. She does not appear ill. No distress. She is not intubated. HENT: Head: Normocephalic. Swelling present. No signs of injury. There is normal jaw occlusion. Mouth/Throat: Oropharynx is clear and moist. Mucous membranes are moist. Eyes: Conjunctivae and EOM are normal. Pupils are equal, round, and reactive to light. Periorbital area normal appearing. Neck: Neck supple. No crepitus. Cardiovascular: Normal rate, regular rhythm, normal pulses and normal peripheral perfusion. Pulses are palpable. Pulses are no weak pulses. Capillary refill: takes less than 3 seconds, Pulmonary/Chest: Effort normal. There is normal air entry. No accessory muscle usage. No apnea and no tachypnea. She is not intubated. No respiratory distress. She has no decreased breath sounds. Abdominal: Soft. Normal appearance and non-distended. There is no abdominal tenderness. Musculoskeletal: General: No tenderness, deformity or edema. Normal range of motion. Cervical back: Full passive range of motion without pain, normal range of motion and neck supple. No edema, erythema or crepitus. Normal range of motion. Neurological: Alert, oriented to person, place, and time and easily aroused. She has normal sensation, normal strength and intact cranial nerves. She is not disoriented. GCS eye subscore is 4. GCS verbal subscore is 5. GCS motor subscore is 6. Normal speech. Gait normal. Skin: Skin is warm, dry, intact and normal color. She is not diaphoretic. Psychiatric: She has a normal mood and affect. Speech pattern is normal. Judgment and thought content normal. Relaxed.Cognition and memory are normal. ASSESSMENT/PLAN IMPRESSION AND PLAN Patient is a 50-year-old female coming in for evaluation bilateral perioral swelling going down intoher cheeks. She has no redness to the area no pain with extraocular motions. She denies any fevers chills is state that the swelling comes and goes. She has no new contacts or no new detergents. She has not tried anything at home for the past 2 weeks and states that it has waxed and waned but she has been living in [place] and did not want to see a provider there. She is back in town to see her security tech and primary care provider locally. Overall I do not suspect that this is her overall cellulitis or postseptal cellulitis as the area is not hot or inflamed. I feel this most likely represent s since allergic reaction. She will be given a steroid taper along with Benadryl and Claritin. I didgive her strict return precautions which she verbalized understanding of. The patient was dischargedstable condition. Final Diagnoses: as of 06/26/21 1212 Swelling Face - Bilateral eyes and cheeks Allergy Unspecified Initial Darryl Blackamn APRN, C.N.P. 06/26/21 1249 documented in this encounter Plan of Treatment Scheduled Referrals Name Type Priority Associated Diagnoses Order S chedule POST ED VISIT Outpatient Referral Routine Swelling Face Expect ed: Family Medicine 06/29/2021, Expires: 09/26/2022 documented as of this encounter Visit Diagnoses Diagnosis Swelling Face - Primary Allergy Unspecified Initial documented in this encounter Care Teams Spar Cap Beveler Relationship Specialty Start Date End Date Ro Norton APRN, C.N.P., PCP - General Family Medicine D.N.P. [address] [phone] documented as of this encounter
--- OUTSIDE RECORDS SUMMARY | 2021-12-31 07:50 | XMS_ITS | Encounter Summary ---
:1970 Author Organization [facility] Address [address] [place] [address] Care Team Providers Name Role Phone Ro Norton APRN, C.N.P., D.N.P. Primary Care Provider Encounter Details Date Type Department Care Team Description 07/09/2021 Orders Only Pharmacy Prior Auth RO Lyssa Alfred [phone] Social History Tobacco Use Types Packs/Day Years [...] or relatives? How often do you attend spiritism or Never 2021 mandaen services? Do you belong to any clubs or No 02/25/2021 organizations such as spiritism groups, unions, fraternal or athletic groups, or [...] for the very basics like Not h adrinel at all 02/25/2021 food, housing, medical care, [...] on filedocumented in this encounter Care Teams [employer] Storage Architect Relationship Specialty Start Date End Date Ro Norton APRN, C.N.P., PCP - General Family Medicine D.N.P. [address] [phone] documented as of this encounter
--- OUTSIDE RECORDS SUMMARY | 2021-12-31 07:50 | XMS_ITS | Encounter Summary ---
:1970 Author Organization [facility] Address [address] [place] [address] Care Team Providers Name Role Phone Ro Norton APRN C.N.PRaffy, D.N.P. Primary Care Provider Encounter Details Date Type Department Care Team Description 03/31/2021 Orders Only [facility] Pamela Vallecillo APRN, [place] C.N.PRaffy, D.N.P. [address] [phone] [place], [place] [phone] (Wo rk) Social History Tobacco Use Types [...] do you attend gnosticism or Never 2021 anabaptism services? Do you belong to any clubs [...] on filedocumented in this encounter Care Teams Decision Support Manager Relationship Specialty Start Date End Date Ro Norton APRN, C.N.P., PCP - General Family Medicine D.N.P. [address] [phone] documented as of this encounter
--- OUTSIDE RECORDS SUMMARY | 2021-12-31 07:50 | XMS_ITS | Encounter Summary ---
:1970 Author Organization [facility] Address [address] [place] [address] Care Team Providers Name Role Phone Ro Norton APRN, C.N.P., D.N.P. Primary Care Provider Reason for Visit Reason Comments PA denied Encounter Details Date Type Department Care Team Description 07/09/2021 Clinical Communication Division of Pulmonary Lubna Mcmillan denied Medicine in Elan Faust M.D. [place] [address] [facility] [address] [place] [phone] Social History Tobacco Use Types Packs/Day Years [...] do you attend synagogue or Never 2021 anabaptism services? Do you [...] place to sleep or slept in a half-way (including now)? Education Answer Date Recorded What is the highest level of school you have completed or 12 th grade 11/13/2019 the highest degree you have received? Sex Assigned at Date Recorded Female 10/14/2020 12:54 PM CDT documented as of this encounter Miscellaneous Notes Telephone Encounter - Miranda Phillips R.N. - 07/12/2021 4:10 PM CDT PA approval received 07/12/2021-08/19/2021. Pharmacy updated. She has two refills approved. Telephone Encounter - Miranda Phillips R.N. - 07/12/2021 2:37 PM CDT She picked up three weeks of medication from the pharmacy and paid out of pocket. The PA was denied according to the pharmacist. Her insurance with [facility] [employer] terminated 04/19/2021. We had last been waiting for her to update our team with her [employer] ID number. I tried to reach Heatherbut she did not pickling grader. The [facility] pharmacy indicates her [place] Medicaid number is [id number]. They looked for her [employer] ID number and the pharmacist indicates she has just straight [place] which started 05/21/2021. I was provided the phone number [phone] to complete the PA. I completed the PAover the phone and approval is pending. Telephone Encounter - Aniya Howard - 07/09/2021 9:33 AM CDT Call Message Who is Calling: Call Back: [phone] [facility] Medicaid insurance [phone] Message: The PA for sildenafil got denied. Can we get a denial letter sent. Patient cant afford the medication and is out [facility] is giving a coupon to help pay for the medication also Aniya JOLLY 2-1982 documented in this encounter Plan of Treatment Not on filedocumented as of this encounter Visit Diagnoses Not on filedocumented in this encounter Care Teams Electronics Scale Tester Relationship Specialty Start Date End Date Ro Norton APRN, C.N.P., PCP - General Family Medicine D.N.P. [address] [phone] documented as of this encounter
--- OUTSIDE RECORDS SUMMARY | 2021-12-31 07:50 | XMS_ITS | Encounter Summary ---
:1970 Author Organization [facility] Address [address] [place] [address] Care Team Providers Name Role Phone Ro Norton APRN, C.N.P., D.N.P. Primary Care Provider Reason for Visit Reason Comments Flank Pain Encounter Details Date Type Department Care Team Description 05/04/2021 Emergency [place] [facility] Natasha Traylor Pye lonephritis Acute (Primary Dx); Department M.D. Pyelonephritis Acute [address] [facility] [address] [place], [place] [phone] (Wo rk) Social History Tobacco Use Types [...] or relatives? How often do you attend christianity or Never 2021 baptist services? Do you belong to any clubs or No 02/25/2021 organizations such as christianity groups, unions, fraternal or athletic groups, or [...] Sign Reading Time Taken Comments Blood Pressure 104/68 05/04/2021 6:06 PM CDT Pulse 95 05/04/2021 6:06 PM CDT Temperature 36.1 ??C (96.9 ??F) 05/04/2021 3:30 PM CDT Respiratory Rate 16 05/04/2021 5:30 PM CDT Oxygen Saturation 93% 05/04/2021 6:06 PM CDT Inhaled Oxygen Concentration - - Weight - - Height - - Body Mass Index - - documented in this encounter Discharge Instructions AttachmentsThe following attachments cannot be sent through Care Everywhere. Pyelonephritis Adult [id number] (Luxembourgish)documented in this encounter Medications at Time of Discharge Medication Sig Dispensed Refills Start Date End Date ascorbic acid, vitamin C, Take 100 mg by 0 (VITAMIN C) 100 mg tablet mouth daily. DME Oxygen Administer 1 L into 0 nostril(s) at bedtime. DME Order sildenafil (REVATIO) 20 Take 1 tablet (20 270 tablet 3 04/2704/27/2022 mg tabletIndications: mg total) by mouth Hypertension Pulmonary 3 (three) times a Primary (HCC) day. albuterol 90 INHALE 2 PUFFS BY 25.5 g 3 03/31/202103/31 mcg/actuation inhaler MOUTH FOUR TIMES A DAY fluticasone Inhale 1 puff 2 0 02/03/2021 [...] mouth at bedtime. sildenafil (REVATIO) 20 Take 20 mg by 0 1 mg tablet mouth. zinc sulfate (ZINCATE) Take 220 mg by 0 220 (50) mg capsule mouth daily. furosemide (LASIX) 20 mg Take 1 tablet (20 30 tablet 3 12/2206/25/2021 tablet mg total) by mouth daily. phenazopyridine HCl Take by mouth. 0 0 07/23/2021 (PYRIDIUM ORAL) pramipexole (MIRAPEX) Take 2 tablets 180 tablet 3 04/15/2021 09/23/2021 0.125 mg tablet (0.25 mg total) by mouth at bedtime. cefdinir (OMNICEF) 300 mg Take 1 capsule (300 20 capsule 0 0 05/04/2021 05/14/2021 capsule mg total) by mouth every 12 (twelve) hours for 10 days. penicillin V potassium TAKE 1 TABLET BY 28 tablet 0 021 12/23/2021 (VEETIDS) 500 mg tablet MOUTH FOUR TIMES A DAY UNTIL GONE nitrofurantoin 0 04/23/2021 07/23/2021 monohydrate (MACROBID) 100 mg capsule documented as of this encounter ED Notes Natasha Traylor M.D. - 05/04/2021 4:05 PM CDT SUBJECTIVE CHIEF COMPLAINT/REASON FOR VISIT Flank Pain HISTORY OF PRESENT ILLNESS 50-year-old female recently treated with Macrobid for urinary tract infection presenting to the emergency department after completing the antibiotics and not experiencing continued dysuria and now flank pain on the left. Associated nausea but no reported fevers. Patient also describes generalized abdominal pain. REVIEW OF SYSTEMS All other systems reviewed and are negative. OBJECTIVE Initial Vitals Temperature Pulse Rate Heart Rate Resp Rate Blood Pressure SpO2 05/04/21 1530 05/04/21 1530 -- 05/04/21 1530 05/04/21 1530 05/04/21 1530 36.1 ??C 100 22 99/72 94 % Pain Score 05/04/21 1529 10 - Worst possible pain PHYSICAL EXAMINATION Constitutional: Nursing note and vitals reviewed. No distress. HENT: Head: Atraumatic. Mouth/Throat: Mucous membranes are moist. Neck: Neck supple. Cardiovascular: Normal rate and regular rhythm. Capillary refill: takes less than 3 seconds, Pulmonary/Chest: Effort normal. No respiratory distress. Abdominal: Diffuse mild tenderness. Somewhat localized to the left lateral abdomen Musculoskeletal: General: No edema. Normal range of motion. Cervical back: Normal range of motion and neck supple. Neurological: Alert and oriented to person, place, and time. Skin: Skin is warm and dry. She is not diaphoretic. Psychiatric: She has a normal mood and affect. Behavior is normal. ASSESSMENT/PLAN IMPRESSION AND PLAN 50-year-old presenting today with signs and symptoms consistent with a likely urinary tract infection as progressed to pyelonephritis. Urine is orange secondary to medication side effects but we will send for micro and obtain labs and perform cross-sectional imaging to assess for the potential for neph rolithiasis. Will provide Toradol and Zofran as well as fluids for hydration. Labs are notable for leukocytosis of 21k. CT scan consistent with likely left- sided pyelonephritis. After our interventionsin the emergency department the patient is feeling much better, pain free and tolerating orals without difficulty. The patient was treated in the ED with ceftriaxone and IV fluids as well as Toradol and Zofran. Outpatient management with cefdinir with strict return precautions. Final Diagnoses: as of 05/04/211801 Pyelonephritis Acute Pyelonephritis Acute Natasha Traylor M.D. 05/04/21 180 Kelli Sewell R.N. - 05/04/2021 3:30 PM CDT Pt states that she had a uti last week. Pt has taken her antibiotics but feels like the infection isback. Pt has pain in left flank. Kelli Sewell R.N. 05/04/21 1530 documented in this encounter Miscellaneous Notes Result Encounter Note - Lorenzo Ramirez M.D. - 05/06/2021 7:49 AM CDT Lorenzo Iglseias M.D. 05/06/21 0749 documented in this encounter Plan of Treatment Not on filedocumented as of this encounter Procedures Procedure Name Priority Date/Time Associated Comments Diagnosis CT ABDOMEN PELVIS RAD - Semiurgent 05/04/2021 5:59 Res ults for WITHOUT IV CONTRAST (Fast; most ED PM CDT this p rocedure patients; some are in the inpatients) results section. CBC WITH STAT 05/04/2021 4:32 Results for DIFFERENTIAL, B PM CDT this procedu re are in the results section. LACTATE, B/P STAT 05/04/2021 4:32 Results for PM CDT this procedure are in the results section. COMPREHENSIVE STAT 05/04/2021 4:32 Results for METABOLIC PANEL, S/P PM CDT this pr ocedure are in the results section. BACTERIAL CULTURE, STAT 05/04/2021 4:14 Result s for AEROBIC + SUSC, PM CDT this procedu re URINE are in the results section. URINALYSIS WITH STAT 05/04/2021 4:14 Results f or MICROSCOPIC PM CDT this procedure are in the results section. documented in this encounter Results CT Abdomen Pelvis without IV Contrast (05/04/2021 5:59 PM CDT) Anatomical Region Laterality Modality Abdomen, Pelvis, Abdominal RST LOS, Abdominal ARZ LOS, N/A Computed Tomography Abdominal FLA LOS Specimen (Source) Anatomical Collection Method Collection Time Re ceived Time Location / / Volume Laterality 05/05/2021 8:01 AM CDT Impressions 05/05/2021 8:09 AM CDT 1. ??Left perinephric fat stranding/edema and pelvic wall thickening are suspicious for infection. 2. ??6 mm nonobstructing stone left vane l midpole calyx. 3. ??Hepatic steatosis. Narrative 05/05/2021 8:09 AM CDT EXAM: CT ABDOMEN PELVIS WITHOUT IV CONTRAST COMPARISON: CT 10/22/19. FINDINGS: Left renal midpole calyx has 6 mm nonobstructing stone (series 2 image 166). No other stones. Left kidney appears edematous. T here is moderate left perinephric fat stranding/edema and urothelial wall thickening of the left r enal pelvis. These findings are suspicious for infection (pyelitis), though can be from recently passed stone. Cannot directly evaluate for pyelonephritis without IV contrast. No hydronephrosis o r hydroureter. Moderate diffuse hepatic steatosis. Norm al appendix. Arterial calcifications. Degenerative lumbar spondylosis. Otherwise negative. vRad: ??Findings concordant with dayai luciana vRad report. Procedure Note Pj Quijano M.D. - 05/05/2021 EXAM: CT ABDOMEN PELVIS WITHOUT IV CONTR AST COMPARISON: CT 10/22/19. FINDINGS: Left renal midpole calyx has 6 mm nonobstructing stone (series 2 image 166). No other stones. Left kidney appears edematous. T here is moderate left perinephric fat stranding/edema and urothelial wall thickening of the left r enal pelvis. These findings are suspicious for infection (pyelitis), though can be from recently passed stone. Cannot directly evaluate for pyelonephritis without IV contrast. No hydronephrosis o r hydroureter. Moderate diffuse hepatic steatosis. Norm al appendix. Arterial calcifications. Degenerative lumbar spondylosis. Otherwise negative. vRad: Findings concordant with prelimina ry vRad report. IMPRESSION: 1. Left perinephric fat stranding/edema and pelvic wall thickening are suspicious for infection. 2. 6 mm nonobstructing stone left renal midpole calyx. 3. Hepatic steatosis. Natasha Traylor M.D. IMG CT PROCEDURES Lactate (05/04/2021 4:32 PM CDT) athologist Signature Lactate, P 1.3 0.5 - 2.2 05/04/2021 [facility] mmol/L 5:07 PM CDT Specimen Anatomical Collection Method Collection Time Receive d Time (Source) Location / / Volume Laterality Blood (Blood, 05/04/2021 4:32 PM 05/05/19 4:38 Venous) CDT PM CDT Natasha Traylor M.D. LAB BLOOD NON ADD-ON Performing Organization Address City/State/ZIP Code Phon e Number [facility]- [address] [place] [phone] [place] [address] System in [address] (ABNORMAL) Comprehensive Metabolic Panel (05/04/2021 4:32 PM CDT) athologist Signature Potassium, P 4.7 3.6 - 5.2 05/04/2021 [facility] mmol/L 5:10 PM CDT Sodium, P 130 (L) 135 - 145 05/04/2021 [facility] mmol/L 5:10 PM CDT Chloride, P 94 (L) 98 - 107 05/04/2021 [facility] mmol/L 5:10 PM CDT Bicarbonate, P 27 22 - 29 05/04/2021 [facility] mmol/L 5:10 PM CDT Anion Gap, P 9 7 - 15 05/04/2021 [facility] 5:10 PM CDT BUN (Blood Urea 15 6 - 21 05/04/2021 [facility] Nitrogen), P mg/dL 5:10 PM CDT Creatinine 0.80 0.59 - 05/04/2021 [facility] 1.04 mg/dL 5:10 PM CDT eGFR-Black/Afri >90 >=60 05/04/2021 [facility] can Swazi mL/min/BSA 5:10 PM CDT Comment: ----ADDITIONAL INFORMATION---- Estimated GFR calculated using the 2009 CKD_EPI creatinine equation. eGFR Non-Black/ 87 >=60 mL/min/BSA 5:10 PM CDT [facility] Comment: ----ADDITIONAL INFORMATION---- Estimated GFR calculated using the 2009 CKD_EPI creatinine equation. Calcium, Total, P 8.4 (L) 8.6 - 10.0 mg/dL 05/04/2021 5:10 PM CDT [facility] Glucose, P 106 70 - 140 mg/dL 05/04/2021 5:10 PM CDT R [facility] Protein, Total, P 6.7 6.3 - 7.9 g/dL 05/04/2021 5:10 P M CDT [facility] Albumin, P 2.9 (L) 3.5 - 5.0 g/dL 05/04/2021 5:10 PM CDT R [facility] Aspartate Aminotransferase 70 (H) 8 - 43 U/L 05/04/2021 5 :10 PM CDT [facility] (AST), P Alkaline Phosphatase, P 201 (H) 35 - 104 U/L 05/04/2021 5: 10 PM CDT [facility] Alanine Aminotransferase 73 (H) 7 - 45 U/L 05/04/2021 5:1 0 PM CDT [facility] (ALT), P Bilirubin, Total, P 1.0 <=1.2 mg/dL 05/04/2021 5:10 PM CDT [facility] Specimen Anatomical Collection Method Collection Time Receive d Time (Source) Location / / Volume Laterality Blood (Blood, 05/04/2021 4:32 PM 05/05/19 4:38 Venous) CDT PM CDT Natasha Traylor M.D. LAB BLOOD ADD-ON Performing Organization Address City/State/ZIP Code Phon e Number [facility]- [address] [facility] [place] [address] [facility] [place] [address] System in [place] [address] (ABNORMAL) CBC with Differential, Blood (05/04/2021 4:32 PM CDT) [facility] Method Time Signature Hemoglobin 15.9 (H) 11.6 - 05/04/2021 [facility] 15.0 g/dL 4:47 PM CDT Hematocrit 48.8 (H) 35.5 - 05/04/2021 [facility] 44.9 % 4:47 PM CDT Erythrocytes 4.90 3.92 - 05/04/2021 [facility] 5.13 4:47 PM CDT x10(12)/L MCV 99.6 (H) 78.2 - 05/04/2021 [facility] 97.9 fL 4:47 PM CDT RBC Distrib Width 14.9 12.2 - 05/04/2021 [facility] 16.1 % 4:47 PM CDT Platelet Count 204 157 - 371 05/04/2021 [facility] x10(9)/L 4:47 PM CDT Leukocytes 21.2 (H) 3.4 - 9.6 05/04/2021 [facility] x10(9)/L 4:47 PM CDT Neutrophils 18.85 (H) 1.56 - 05/04/2021 [facility] 6.45 4:47 PM CDT x10(9)/L Lymphocytes 1.00 0.95 - 05/04/2021 [facility] 3.07 4:47 PM CDT x10(9)/L Monocytes 1.23 (H) 0.26 - 05/04/2021 [facility] 0.81 4:47 PM CDT x10(9)/L Eosinophils 0.03 0.03 - 05/04/2021 [facility] 0.48 4:47 PM CDT x10(9)/L Basophils 0.08 0.01 - 05/04/2021 [facility] 0.08 4:47 PM CDT x10(9)/L Specimen Anatomical Collection Method Collection Time Receive d Time (Source) Location / / Volume Laterality Blood (Blood, 05/04/2021 4:32 PM 05/05/19 4:38 Venous) CDT PM CDT Natasha Traylor M.D. LAB BLOOD ADD-ON Performing Organization Address City/State/ZIP Code Phon e Number [facility]- [address] [facility] [place], [place] [address] [place] [address] System in [place] [address] (ABNORMAL) Bacterial Culture, Aerobic + Susc, Urine (05/04/2021 4:14 PM CDT) [facility] gist Method Time Signature Urine Culture ESCHERICHIA COLI 05/06/2021 ECLR >100,000 cfu/mL 7:44 AM CDT (A) Specimen Anatomical Collection Method Collection Time Receive d Time (Source) Location / / Volume Laterality Urine (Urine, 05/04/2021 4:14 PM 05/05/19 9:24 Midstream) CDT PM CDT Comment: Specimen Source Site: Urine Organism Antibiotic Method Susceptibility Escherichia coli Ampicillin SUSCEPTIBILITY, DICK <=2 mcg/mL: Susceptible (MCG/ML) Escherichia coli Piperacillin + Tazobactam SUSCEPTIBILITY, DICK < =4 mcg/mL: Susceptible (MCG/ML) Escherichia coli Cefazolin SUSCEPTIBILITY, DICK <=4 mcg/mL: Susceptible (MCG/ML) Comment: The interpretation applies t o uncomplicated urinary tract infections only. It al so applies to these oral cephalosporins: cefuroxime, cephalexin, and cefprozil. Escherichia coli Ceftazidime SUSCEPTIBILITY, DICK <=1 mcg/mL: (MCG/ML) Susceptible Escherichia coli Ceftriaxone SUSCEPTIBILITY, DICK <=1 mcg/mL: (MCG/ML) Susceptible Escherichia coli Cefepime SUSCEPTIBILITY, DICK <=1 mcg/mL: (MCG/ML) Susceptible Escherichia coli Aztreonam SUSCEPTIBILITY, DICK <=1 mcg/mL: (MCG/ML) Susceptible Escherichia coli Ertapenem SUSCEPTIBILITY, DICK <=0.5 mcg/m L: (MCG/ML) Susceptible Escherichia coli Meropenem SUSCEPTIBILITY, DICK <=0.25 mcg/ mL: (MCG/ML) Susceptible Escherichia coli Gentamicin SUSCEPTIBILITY, DICK <=1 mcg/mL: (MCG/ML) Susceptible Escherichia coli Tobramycin SUSCEPTIBILITY, DICK <=1 mcg/mL: (MCG/ML) Susceptible Escherichia coli Levofloxacin SUSCEPTIBILITY, DICK <=0.12 mcg/ mL: (MCG/ML) Susceptible Escherichia coli Nitrofurantoin SUSCEPTIBILITY, DICK <=16 mcg/mL : (MCG/ML) Susceptible Escherichia coli Trimethoprim + SUSCEPTIBILITY, DICK <=20 mcg/mL : Sulfamethoxazole (MCG/ML) Susceptible Natasha Traylor M.D. LAB MICROBIOLOGY - GENERAL O RDERABLES Performing Organization Address City/State/ZIP Code Phon e Number [facility]- [address] [place] [phone] [facility] [place] [address] System [address] (ABNORMAL) Urinalysis with Microscopic: Urine, Midstream (05/04/2021 4:14 PM CDT) athologist Signature Source Midstream 05/04/2021 [facility] 4:41 PM CDT Clarity Cloudy (A) Clear 05/04/2021 [facility] 4:41 PM CDT Color [place] (A) 05/04/2021 [facility] 4:41 PM CDT Comment: ----REFERENCE VALUE---- Colorless Yellow [place] Blood SEE COMMENT Negative 05/04/2021 4:41 PM CDT [facility] Comment: Unable to determine due to colo r interference Nitrite SEE COMMENT Negative 05/04/2021 4:41 PM CDT [facility] Comment: Unable to determine due to colo r interference Leukocyte Esterase SEE COMMENT Negative 05/04/2021 4:41 PM CDT [facility] Comment: Unable to determine due to colo r interference Protein SEE COMMENT mg/dL 05/04/2021 4:41 PM CDT [facility] Comment: Unable to determine due to color interfe rence ----REFERENCE VALUE---- Negative Trace Glucose SEE COMMENT Negative mg/dL 05/04/2021 4:41 PM CDT [facility] Comment: Unable to determine due to colo r interference Ketone SEE COMMENT Negative mg/dL 05/04/2021 4:41 PM CDT [facility] Comment: Unable to determine due to colo r interference Bilirubin SEE COMMENT Negative 05/04/2021 4:41 PM CDT [facility] Comment: Unable to determine due to colo r interference pH SEE COMMENT 5.0 - 8.0 05/04/2021 4:41 PM CDT [facility] Comment: Unable to determine due to colo r interference Specific [place] SEE COMMENT 1.001 - 1.035 05/04/2021 4:41 P M CDT [facility] Comment: Unable to determine due to colo r interference Urobilinogen SEE COMMENT 0.2 - 1.0 mg/dL 05/04/2021 4:41 PM CDT [facility] Comment: Unable to determine due to colo r interference White Blood Cells >100 (A) /hpf 05/04/2021 4:41 PM CDT [facility] Comment: ----REFERENCE VALUE---- Males: 0-3 Females: 0-10 Unknown: 0-10 Red Blood Cells 3-10 (A) 0 - 2 /hpf 05/04/2021 4:41 PM CDT [facility] Dysmorphic Red Blood Cells <=25 <=25 % 05/04/2021 4: 41 PM CDT [facility] Bacteria Present (A) None Seen 05/04/2021 4:41 PM CDT [facility] Specimen Anatomical Collection Method Collection Time Receive d Time (Source) Location / / Volume Laterality Urine (Urine, 05/04/2021 4:14 PM 05/05/19 22 4:17 Midstream) CDT PM CDT Natasha Traylor M.D. LAB URINE ORDERABLES Performing Organization Address City/State/ZIP Code Phon e Number [facility]- [facility] [place], [place] [address] [place] [address] [address] documented in this encounter Visit Diagnoses Diagnosis Pyelonephritis Acute - Primary documented in this encounter Administered Medications Inactive Administered Medications - up to 3 most recent administrations Medication Order MAR Action Action Date Dose Rate Site cefTRIAXone in dextrose New Bag 05/04/2021 5:00 PM CDT 1 g 200 mL/hr (iso-osm) IVPB 1 g (ROCEPHIN) 1 g, intravenous, at 200 mL/hr, Administer over 15 Minutes, Once, On 05/04/21 at 1649, For 1 dose, Drug Monitoring Program: Pharmacist to adjust medication dosing based on indication and drug clearance factors., Indications: pyelo ketorolac injection 15 mg (TORADOL) Given 05/04/2021 4:48 PM CDT 15 mg 15 mg, intravenous, Once, On 05/04/21 at 1602, For 1 dose, Adult IV push rate: Over 15 seconds. Peds IV push rate: Over 1 minute. 60 mg dose only for IM, not recommended for IV. NaCl 0.9 % bolus 1,000 mL New Bag 05/04/2021 4:45 PM CDT 1,000 mL 1000 mL/hr 1,000 mL, intravenous, at 1,000 mL/hr, Administer over 1 Hours, Once, On 05/04/21 at 1602, For 1 dose ondansetron (PF) injection 4 mg (ZOFRAN) Given 05/04/2021 4:47 PM CDT 4 mg 4 mg, intravenous, Once, On 05/04/21 at 1602, For 1 dose documented in this encounter Active and Recently Administered Medications Due to Daylight Saving Time, this section may contain times in both FIELD ACCOUNT MANAGER and CDT. Scheduled Medication Order 05/02/2021 05/03/2021 05/04/2021 cefTRIAXone in dextrose (iso-osm) IVPB 1 g (ROCEPHIN) (COMPLETED ) 1700 (New Bag - Provider: Amparo Johnson RShikha)1715 (Stopped - Provider: Amparo Johnson RShikha) 1 g, intravenous, at 200 mL/hr, Administ er over 15 Minutes, Once, On e 05/04/21 at 1649, For 1 dose, Drug Monitoring Program: Pharmacist to adjust medication dosing based on indication and drug clearance factors., Indications: pyelo ketorolac injection 15 mg (TORADOL) (COMPLETED) 1648 (Given - Provider: Amparo Johnson RShikha) 15 mg, intravenous, Once, On 05/04/21 at 1602, For 1 dose, Adult IV push rate: Over 15 seconds. Peds IV push rate: Over 1 minute. 60 mg dose only for IM, not recommended for IV. NaCl 0.9 % bolus 1,000 mL (COMPLETED) 1645 (New Bag - Provider: Amparo Johnson R.N.)1800 (Stopped - Provider: Amparo Johnson R.N.) 1,000 mL, intravenous, at 1,000 mL/hr, A dminister over 1 Hours, Once, On Mon05/04/21 at 1602, For 1 dose ondansetron (PF) injection 4 mg (ZOFRAN) (COMPLETED) 1647 (Given - Provider: Amparo Johnson R.N.) 4 mg, intravenous, Once, On Mon05/04/21 at 1602, For 1 dose documented in this encounter Care Teams Career Services Coordinator Relationship Specialty Start Date End Date Ro Norton APRN, C.N.P., PCP - General Family Medicine D.N.P. [id number] [phone] documented as of this encounter
--- OUTSIDE RECORDS SUMMARY | 2021-12-31 07:50 | XMS_ITS | Encounter Summary ---
:1970 Author Organization [facility] Address [address] [place] [id number] Care Team Providers Name Role Phone Ro Norton APRN, C.N.Kirsty, D.N.P. Primary Care Provider Encounter Details Date Type Department Care Team Description 06/13/2021 E-Visit [facility] Express Edith Simmons, Expr ess Care Online for Care at the [place] MORGAN C.N.PRaffy, Sinus Symp toms Building on the 4th M.S.N. (sinusitis) Floor [address] [place] [address] [address] [place] [phone] Social History Tobacco Use Types Packs/Day Years [...] do you attend mandaeism or Never 2021 shinto services? Do you [...] as of this encounter Visit Diagnoses Diagnosis Infection Upper Respiratory - Primary documented in this encounter Care Teams Geriatric Physician Relationship Specialty Start Date End Date Ro Norton APRN, C.N.P., PCP - General Family Medicine D.N.P. [address] [phone] documented as of this encounter
--- OUTSIDE RECORDS SUMMARY | 2021-12-31 07:50 | XMS_ITS | Encounter Summary ---
:1970 Author Organization [facility] Address [address] [place] [address] Care Team Providers Name Role Phone Ro Norton APRN C.N.P., D.N.P. Primary Care Provider Reason for Referral Outpatient (Routine) - Closed Specialty Diagnoses / Procedures Referred By Contact Refer red To Contact Diagnoses Pain Wrist Right Yolie Leigh [facility] [place] [facility] Procedures DX Wrist Right 3+ Views P.A.-C. [address] [place] [address] Referral ID Status Reason Start Date Expiration Date Visits Requ ested Visits Authorized [id number] Closed 04/21/2021 04/21/2022 1 1 ER CARE SOCIAL WORKER Reason for Visit Outpatient (Routine) - Closed Specialty Diagnoses / Procedures Referred By Contact Refer red To Contact Diagnoses Pain Wrist Right Yolie Leigh [facility] [place] [facility] Procedures DX Wrist Right 3+ Views P.A.-C. [address] [place] [address] Referral ID Status Reason Start Date Expiration Date Visits Requ ested Visits Authorized [id number] Closed 04/21/2021 04/21/2022 1 1 Encounter Details Date Type Department Care Team Description 04/21/2021 Hospital Encounter Department of Yolie Leigh in Wrist Right Radiology in [place], [place] 701 [facility] [address] [facility] Carlos Alberto [place] [phone] Social History Tobacco Use Types Packs/Day Years [...] do you attend scientologist or Never 2021 adventism services? Do you [...] place to sleep or slept in a long-term (including now)? Education Answer Date Recorded What [...] FOUR TIMES A DAY ascorbic acid, vitamin Take 100 mg by mouth 0 C, (VITAMIN C) 100 mg daily. tablet DME Oxygen Administer 1 L into 0 nostril(s) at bedtime. DME Order fluticasone Inhale 1 puff 2 (two) 0 02/03/2021 propion-salmeteroL times a day. 250-50 mcg/dose diskus inhaler fluticasone INHALE 1 PUFF BY 60 each 11 02/03/20212021 propion-salmeteroL MOUTH TWO TIMES A 250-50 mcg/dose diskus DAY, RINSE MOUTH WITH inhaler WATER AFTER USE TO REDUCE AFTERTASTE AND INCIDENCE OF CANDIDIASIS. DO NOT SWALLOW. HYDROcodone-acetaminoph Take 1 tablet by 0 2021 en (NORCO) 5-325 mg per mouth every 4 (four) tablet hours as needed. for pain ipratropium-albuteroL Inhale 3 mL. 0 03/09/2021 0 03/09/2022 (DUONEB) 0.5-2.5 mg/3 mL nebulizer solution ipratropium-albuteroL INHALE 3 ML BY MOUTH 270 mL 3 02/2003/09/2022 (DUONEB) 0.5-2.5 mg/3 VIA NEBULIZER FOUR mL nebulizer solution TIMES A DAY NEEDED FOR SHORTNESS OF BREATH OR WHEEZING multivitamin capsule Take 1 capsule by 0 mouth daily. pramipexole (MIRAPEX) Take 2 tablets (0.25 180 tablet 3 03/24 0.125 mg tablet mg total) by mouth at bedtime. sildenafil (REVATIO) 20 Take 20 mg by mouth. 0 mg tablet zinc sulfate (ZINCATE) Take 220 mg by mouth 0 220 (50) mg capsule daily. penicillin V potassium TAKE 1 TABLET BY 28 tablet 0 021 12/23/2021 (VEETIDS) 500 mg tablet MOUTH FOUR TIMES A DAY UNTIL GONE furosemide (LASIX) 20 Take 1 tablet (20 mg 30 tablet 3 12/2206/25/2021 mg tablet total) by mouth daily. pramipexole (MIRAPEX) Take 2 tablets (0.25 180 tablet 3 03/2409/23/2021 0.125 mg tablet mg total) by mouth at bedtime. predniSONE (DELTASONE) Take 2 tablets (40 mg 10 tablet 0 04/26/2021 20 mg tablet total) by mouth daily. sildenafil (REVATIO) 20 Take 1 tablet (20 mg 90 tablet 11 04/27/2021 mg tabletIndications: total) by mouth 3 Hypertension Pulmonary (three) times a day. Primary (HCC) documented as of this encounter Plan of Treatment Not on filedocumented as of this encounter Procedures Procedure Name Priority Date/Time Associated Comments Diagnosis DX WRIST RIGHT 3+ RAD - Routine 04/21/2021 10:35 Pain Wrist Right R esults for this VIEWS (most inpatients AM FOSTER CARE SOCIAL WORKER procedure a re in and all the results outpatients) section. documented in this encounter Results DX Wrist Right 3+ Views (04/21/2021 10:35 AM FOSTER CARE SOCIAL WORKER) Anatomical Region Laterality Modality Upper Extremity, Wrist, Musculoskeletal RST LOS, Right Digital Radiography Musculoskeletal ARZ LOS, Muskuloskeletal FLA LOS Specimen (Source) Anatomical Collection Method Collection Time Re ceived Time Location / / Volume Laterality 04/21/2021 10:51 AM FOSTER CARE SOCIAL WORKER Impressions 04/21/2021 10:54 AM FOSTER CARE SOCIAL WORKER Impacted moderately comminuted, minimally displaced intra-articular fracture [...] variance. Remainder negative. Narrative 04/21/2021 10:54 AM FOSTER CARE SOCIAL WORKER EXAM: ??DX WRIST RIGHT 3+ VIEWS Procedure [...] encounter Visit Diagnoses Diagnosis Pain Wrist Right documented in this encounter Care Teams Control Room Helper Relationship Specialty Start Date End Date Ro Norton APRN, C.N.P., PCP - General Family Medicine D.N.P. [address] [phone] documented as of this encounter
--- OUTSIDE RECORDS SUMMARY | 2021-12-31 07:50 | XMS_ITS | Encounter Summary ---
:1970 Author Organization [facility] Address [address] [place] [address] Care Team Providers Name Role Phone Ro Norton APRN, C.N.P., D.N.P. Primary Care Provider Encounter Details Date Type Department Care Team Description 05/14/2021 Orders Only Division of Pulmonary Archana Mcmillan M.D. Medicine in [place], [facility] [address] [place], [place] [address] [facility] [address] [place] [address] [phone] Social History Tobacco Use Types Packs/Day Years [...] or relatives? How often do you attend episcopal or Never 2021 alevism services? Do you belong to any clubs or No 02/25/2021 organizations such as episcopal groups, unions, fraternal or athletic groups, or [...] on filedocumented in this encounter Care Teams Custom Shop Worker Relationship Specialty Start Date End Date Ro Norton APRN, C.N.P., PCP - General Family Medicine D.N.P. [address] [phone] documented as of this encounter
--- OUTSIDE RECORDS SUMMARY | 2021-12-31 07:50 | XMS_ITS | Encounter Summary ---
:1970 Author Organization [facility] Address [address] [place] [address] Care Team Providers Name Role Phone Ro Norton APRN C.N.P., D.N.P. Primary Care Provider Encounter Details Date Type Department Care Team Description 04/15/2021 Orders Only Department of Family Vikki Hernandez, Medicine, [place] P.Ambrosio-Ninoska, P.A. [facility], in [address] [phone] Social History Tobacco Use [...] or relatives? How often do you attend restoration or Never 2021 yazdanism services? Do you belong to any clubs or No 02/25/2021 organizations such as restoration groups, unions, fraternal or athletic groups, or [...] on filedocumented in this encounter Care Teams Chief Projectionist Relationship Specialty Start Date End Date Ro Norton APRN, C.N.P., PCP - General Family Medicine D.N.P. [address] [phone] documented as of this encounter
--- OUTSIDE RECORDS SUMMARY | 2021-12-31 07:51 | XMS_ITS | Encounter Summary ---
:1970 Author Organization [facility] Address [address] [place] [address] Care Team Providers Name Role Phone Ro Norton APRN C.N.P., D.N.P. Primary Care Provider Reason for Visit Reason Onset Date Comments Testing For Upper Respiratory Virus Symptoms 12/16/2020 Encounter Details Date Type Department Care Team Description 12/16/2020 External Outreach Department of Family Emilie Cervantes Contact With And Medicine, [place] Kirsty LiaoAMarcia (Suspected) Exposure Clinic, in [address] To COVID-19 (Primary [place], [place] Dx) 701 [facility] [address] [place], [place] [phone] (Work) [phone] Social History Tobacco Use Types Packs/Day Years [...] or relatives? How often do you attend voodoo or Never 2021 latter day services? Do you belong to any clubs or No 02/25/2021 organizations such as voodoo groups, unions, fraternal or athletic groups, or [...] documented as of this encounter Progress Notes Tanya Cuellar R.N. - 12/16/2020 1:09 PM CDT Encounter created for symptomatic infectious disease screening with possible COVID, Influenza, RSV, and/or Group A Strep testing. documented in this encounter Plan of Treatment Not on filedocumented as of this encounter Visit Diagnoses Diagnosis Contact With And (Suspected) Exposure To COVID-19 - Primary documented in this encounter Additional Health Concerns Infection Onset Date Last Indicated Resolved Time COVID19 Pending 12/16/2020 12/16/2020 01/05/2021 4:50 AM CARBON SETTER documented as of this encounter Care Teams Optometric Coordinator Relationship Specialty Start Date End Date Ro Norton APRN, C.N.P., PCP - General Family Medicine D.N.P. [address] [phone] documented as of this encounter
--- OUTSIDE RECORDS SUMMARY | 2021-12-31 07:51 | XMS_ITS | Encounter Summary ---
:1970 Author Organization [facility] Address [address] [place] [address] Care Team Providers Name Role Phone Ro Norton APRN, C.N.P., D.N.P. Primary Care Provider Reason for Visit Reason Comments Rx Prior Authorization PA DENIED - TADALAFIL 20 MG TABLET Encounter Details Date Type Department Care Team Description 10/12/2020 Clinical Division of [facility], Rx Prior Communication Pulmonary Medicine Joy Amaya Authorization (PA in [place], [address] [facility] DENIED - TADALAFIL 20 [place], [place] MG TABLET) [address] [facility] [address] [place], [place] [phone] (Work) [phone] Social History Tobacco Use Types Packs/Day Years [...] or relatives? How often do you attend baptist or Never 2021 religion services? Do you belong to any clubs or No 02/25/2021 organizations such as baptist groups, unions, fraternal or athletic groups, or [...] place to sleep or slept in a care home (including now)? Education Answer Date Recorded What is the highest level of school you have completed or 12 th grade 11/13/2019 the highest degree you have received? Sex Assigned at Date Recorded Female 10/14/2020 12:54 PM CDT documented as of this encounter Miscellaneous Notes Telephone Encounter - Lubna Mcmillan M.D. - 10/12/2020 4:34 PM CDT yes Telephone Encounter - Dawson Aguirre - 10/12/2020 9:55 AM CDT Images from the original note were not included. The patient's health insurer has denied prior authorization for TADALAFIL 20 MG TABLET A quick view of the denial reason [...] on filedocumented in this encounter Care Teams Overweaver Relationship Specialty Start Date End Date Ro Norton APRN, C.N.P., PCP - General Family Medicine D.N.P. [address] [phone] documented as of this encounter
--- OUTSIDE RECORDS SUMMARY | 2021-12-31 07:51 | XMS_ITS | Encounter Summary ---
:1970 Author Organization [facility] Address [address] [place] [address] Care Team Providers Name Role Phone Ro Norton APRN, C.N.P., D.N.P. Primary Care Provider Reason for Visit Reason Comments Care Coordination Encounter Details Date Type Department Care Team Description 01/21/2021 Patient Outreach Department of Miranda Phillips, [place] Critical Care Paramedic rdination Cardiovascular Medicine R.N. in [facility] [address] [facility] [address] [place] [address] [phone] Social History Tobacco Use Types Packs/Day Years [...] or relatives? How often do you attend muslim or Never 2021 yazidism services? Do you belong to any clubs or No 02/25/2021 organizations such as muslim groups, unions, fraternal or athletic groups, or [...] place to sleep or slept in a detention (including now)? Education Answer Date Recorded What is the highest level of school you have completed or 12 th grade 11/13/2019 the highest degree you have received? Sex Assigned at Date Recorded Female 10/14/2020 12:54 PM CDT documented as of this encounter Plan of Treatment Not on filedocumented as of this encounter Visit Diagnoses Not on filedocumented in this encounter Care Teams Layout Artist Relationship Specialty Start Date End Date Ro Norton APRN, C.N.P., PCP - General Family Medicine D.N.P. [address] [phone] documented as of this encounter
--- OUTSIDE RECORDS SUMMARY | 2021-12-31 07:51 | XMS_ITS | Encounter Summary ---
:1970 Author Organization [facility] Address [address] [place] [address] Care Team Providers Name Role Phone Ro Norton APRN, C.N.P., D.N.P. Primary Care Provider Reason for Visit Reason Comments Medication Problem Encounter Details Date Type Department Care Team Description 10/12/2020 Clinical Communication [facility] Olivia Cloes ation Problem Pharmacy Gamaliel Ratliff Pharm.D., [address] [place] [address]. [address] [address] [facility] [phone] [place] [address] Social History Tobacco Use Types Packs/Day [...] or relatives? How often do you attend religion or Never 2021 scientologist services? Do you belong to any clubs or No 02/25/2021 organizations such as religion groups, unions, fraternal or athletic groups, or [...] encounter Miscellaneous Notes Telephone Encounter - Miranda Patino, R.N. - 10/12/2020 4:41 PM CDT New Rx for Sildenafil sent to [facility] pharmacy [place], [place] Telephone Encounter - Lubna Mcmillan M.D. - 10/12/2020 4:34 PM CDT Ok to do sildenafil instead Telephone Encounter - Karine Coles Pharm.DRaffy, R.Ph. - 10/12/2020 4:20 PM CDT The PA for tadalafil was denied. The insurance will only cover sildenafil. Please consider this change and send an updated prescription, if appropriate, to [facility]. Thank you, [facility] [place] documented in this encounter Plan of Treatment Not on filedocumented as of this encounter Visit Diagnoses Diagnosis Hypertension Pulmonary Primary (HCC) - P rimary documented in this encounter Care Teams Student Life Advisor Relationship Specialty Start Date End Date Ro Norton APRN, C.N.P., PCP - General Family Medicine D.N.P. [address] [phone] documented as of this encounter
--- OUTSIDE RECORDS SUMMARY | 2021-12-31 07:51 | XMS_ITS | Encounter Summary ---
:1970 Author Organization [facility] Address [address] [place] [address] Care Team Providers Name Role Phone Lonny Norton APRN, C.N.P., D.N.P. Primary Care Provider Reason for Visit Reason Comments Medication Question Encounter Details Date Type Department Care Team Description 02/01/2021 Clinical Communication [facility] Olivia Coles ation Question Pharmacy Gamaliel Ratliff Pharm.D., [address] [place] [address]. [address] [address] [facility] [phone] [place] [phone] Social History Tobacco Use Types Packs/Day [...] or relatives? How often do you attend cheondoism or Never 2021 latter day services? Do you belong to any clubs or No 02/25/2021 organizations such as cheondoism groups, unions, fraternal or athletic groups, or [...] place to sleep or slept in a residential (including now)? Education Answer Date Recorded What is the highest level of school you have completed or 12 th grade 11/13/2019 the highest degree you have received? Sex Assigned at Date Recorded Female 10/14/2020 12:54 PM CDT documented as of this encounter Miscellaneous Notes Addendum Note - Lonny Norton APRN, C.N.P., D.N.P. - 02/01/2021 1:46 PM LOOPER FIXER Addended by: LONNY NORTON on: 02/01/2021 01:46 PM Modules accepted: Orders ER FIXER Telephone Encounter - Karine Coles Pharm.D., R.Ph. - 02/01/2021 1:29 PM CST Allison Starr is asking for a refill of her Advair. It has been taken of her medication list. Can she get a new prescription for it? Thank you, [facility] [place] ER FIXER documented in this encounter Plan of Treatment Not on filedocumented as of this encounter Visit Diagnoses Not on filedocumented in this encounter Care Teams Engineer Conductor Relationship Specialty Start Date End Date Lonny Norton APRN, C.N.P., PCP - General Family Medicine D.N.P. [address] [phone] documented as of this encounter
--- OUTSIDE RECORDS SUMMARY | 2021-12-31 07:51 | XMS_ITS | Encounter Summary ---
:1970 Author Organization [facility] Address [address] [place] [address] Care Team Providers Name Role Phone Ro Norton APRN, C.N.P., D.N.P. Primary Care Provider Reason for Visit Reason Comments Follow-up Encounter Details Date Type Department Care Team Description 12/23/2020 Patient Outreach Department of Cathie Phillips, Jatinder-u p Cardiovascular Medicine in [place], [place] [address] [facility] [address] [place] [address] [phone] Social History Tobacco Use Types Packs/Day Years [...] or relatives? How often do you attend pentecostal or Never 2021 christian services? Do you belong to any clubs or No 02/25/2021 organizations such as pentecostal groups, unions, fraternal or athletic groups, or [...] documented as of this encounter Progress Notes Cathie Phillips R.N. - 12/23/2020 5:41 PM CDT SUBJECTIVE CHIEF COMPLAINT / REASON FOR CALL Follow-up Information Discussed Ambrisentan was started on 12/23/2020 at 5 mg once daily. Her weight is reported as 150 pounds. PLAN Side effects to Ambrisentan were reviewed. Labs are planned for 01/08/2021 at the [facility]. testing is no longer needed. In collaboration with Dr. Wren a lab order was [facility] lab guidelines. She was reminded to obtain a weight daily and to call if her weight increases by 2-3 pounds in one day or five pounds over her baseline. Disposition/Recommendation: self-care is appropriate at this time, patient encouraged to call back with questions Information/Education: patient/caller able to teach back Caller agreeable to plan of care: yes The following references were used: nursing clinical judgement and plan per Dr. Wren. documented in this encounter Miscellaneous Notes Addendum Note - Cathie Phillips R.N. - 12/23/2020 5:41 PM CDT Addended by: CATHIE PHILLIPS on: 12/24/2020 03:33 PM Modules accepted: Orders documented in this encounter Plan of Treatment Not on filedocumented as of this encounter Visit Diagnoses Diagnosis Other Secondary Pulmonary Hypertension ( HCC) - Primary Medication Therapy Sod Farmer Not Anticoa gulant documented in this encounter Additional Health Concerns Infection Onset Date Last Indicated Resolved Time COVID19 Pending 12/16/2020 12/16/2020 01/05/2021 4:50 AM DEPENDENCY PROGRAM DIRECTOR documented as of this encounter Care Teams Property Preservation Specialist Relationship Specialty Start Date End Date Ro Norton APRN, C.N.P., PCP - General Family Medicine D.N.P. [address] [phone] documented as of this encounter
--- OUTSIDE RECORDS SUMMARY | 2021-12-31 07:51 | XMS_ITS | Encounter Summary ---
:1970 Author Organization [facility] Address [address] [place] [address] Care Team Providers Name Role Phone Ro Norton APRN, C.N.P., D.N.P. Primary Care Provider Reason for Visit Reason Comments Rx Prior Authorization ambrisentan Encounter Details Date Type Department Care Team Description 11/04/2020 Clinical Department of Nya Clancy Rx Prior Communication Cardiovascular E, R.N. Authorization Medicine in [address] [place] [address] (ambrisentan) [place], [place] [address] [place] [address] [place], [place] [phone] (Work) [phone] Social History Tobacco Use Types Packs/Day Years [...] do you attend sabianist or Never 2021 tenriism services? Do you belong to any clubs [...] Telephone Encounter - Lubna Mcmillan M.D. - 11/05/2020 12:25 PM CDT Spoke with patient for follow up. She feels significantly better on sildenafil but still has some limitations to activity tolerance with exertional dyspnea. She had a headache initially but that has since resolved. She denies any other adverse effects. Given persistent functional class II dyspnea and overall evidence and guidelines recommending upfront combination therapy, will proceed with addition of ambrisentan. Telephone Encounter - Nya Cannon R.N. - 11/04/2020 4:39 PM CDT Images from the original note were not included. Ambrisentan denied by insurance: documented in this encounter Plan of Treatment Not on filedocumented as of this encounter Visit Diagnoses Not on filedocumented in this encounter Care Teams Filter Operator Relationship Specialty Start Date End Date Ro Norton APRN, C.N.P., PCP - General Family Medicine D.N.P. [address] [phone] documented as of this encounter
--- OUTSIDE RECORDS SUMMARY | 2021-12-31 07:51 | XMS_ITS | Encounter Summary ---
:1970 Author Organization [facility] Address [address] [place] [address] Care Team Providers Name Role Phone Ro Norton APRN C.N.PRaffy, D.N.P. Primary Care Provider Encounter Details Date Type Department Care Team Description 03/09/2021 Orders Only [facility] Pamela Vallecillo APRN, [place] C.N.PRaffy, D.N.P. [address] [phone] [place], [place] [phone] (Wo rk) Social History Tobacco Use [...] or relatives? How often do you attend caodaism or Never 2021 sikhism services? Do you belong to any clubs or No 02/25/2021 organizations such as caodaism groups, unions, fraternal or athletic groups, or [...] on filedocumented in this encounter Care Teams Cotton Tier Relationship Specialty Start Date End Date Ro Norton APRN, C.N.P., PCP - General Family Medicine D.N.P. [address] [phone] documented as of this encounter
--- OUTSIDE RECORDS SUMMARY | 2021-12-31 07:51 | XMS_ITS | Encounter Summary ---
:1970 Author Organization [facility] Address [address] [place] [address] Care Team Providers Name Role Phone Ro Norton APRN, C.N.P., D.N.P. Primary Care Provider Reason for Visit Reason Comments Taddidierfil Siomara Encounter Details Date Type Department Care Team Description 10/15/2020 Clinical Communication Division of Lubna Mcmillan Pulmonary Medicine Michael Ansari in [place], [facility] [address] [place], [place] [address] [place] [address] [place], [place] [phone] (Work) [phone] Social History Tobacco Use Types Packs/Day Years [...] do you attend islam or Never 2021 muslim services? Do you belong to any clubs [...] this encounter Miscellaneous Notes Telephone Encounter - Rafia Bills - 10/15/2020 3:24 PM CDT We received a letter from Ms. Schulz's insurance stating that Tadalafil has been denied. I have faxed this letter to pulmonary hypertension at [phone] and scanned in this document to the patient's chart. Thank you, Rafia, Pulmonary Med. Admin. Asst. documented in this encounter Plan of Treatment Not on filedocumented as of this encounter Visit Diagnoses Not on filedocumented in this encounter Care Teams Crossing Supervisor Relationship Specialty Start Date End Date Ro Norton APRN, C.N.P., PCP - General Family Medicine D.N.P. [address] [phone] documented as of this encounter
--- OUTSIDE RECORDS SUMMARY | 2021-12-31 07:51 | XMS_ITS | Encounter Summary ---
:1970 Author Organization [facility] Address [address] [place] [address] Care Team Providers Name Role Phone Ro Norton APRN, C.N.P., D.N.P. Primary Care Provider Encounter Details Date Type Department Care Team Description 02/03/2021 Orders Only Department of Cardiovascular [facility]millan[facility] [place] [address] [facility] [address] [place] [phone] [phone] (Wo rk) Social History Tobacco Use Types [...] or relatives? How often do you attend rastafarian or Never 2021 christian services? Do you belong to any clubs or No 02/25/2021 organizations such as rastafarian groups, unions, fraternal or athletic groups, or [...] place to sleep or slept in a alf (including now)? Education Answer Date Recorded What is the highest level of school you have completed or 12 th grade 11/13/2019 the highest degree you have received? Sex Assigned at Date Recorded Female 10/14/2020 12:54 PM CDT documented as of this encounter Plan of Treatment Not on filedocumented as of this encounter Visit Diagnoses Not on filedocumented in this encounter Care Teams Inseam Trimming Machine Operator Relationship Specialty Start Date End Date Ro Norton APRN, C.N.P., PCP - General Family Medicine D.N.P. [address] [phone] documented as of this encounter
--- OUTSIDE RECORDS SUMMARY | 2021-12-31 07:51 | XMS_ITS | Encounter Summary ---
:1970 Author Organization [facility] Address [address] [place] [address] Care Team Providers Name Role Phone Ro Norton APRN, C.N.P., D.N.P. Primary Care Provider Reason for Visit Reason Comments Care Coordination Encounter Details Date Type Department Care Team Description 12/07/2020 Patient Outreach Department of Cathie Phillips, Dilan Tour Operator rdination Cardiovascular Medicine R.N. in [facility] [address] [facility] [address] [place] [address] [phone] Social History Tobacco Use Types Packs/Day Years [...] do you attend mormonism or Never 2021 temple services? Do you belong to any clubs [...] of this encounter Progress Notes Cathie Phillips RToya. - 12/07/2020 3:36 PM CDT SUBJECTIVE ?? CHIEF COMPLAINT / REASON FOR CALL Follow-up ?? Information Discussed She indicates she will complete a test this month so she can get her medication. She does want her status changed to post menopausal as she has not menstruated for over one year per her. She also has had her tubes tied. ?? PLAN MD Mcmillan has been contacted to see if he is in agreement with changing her status to postmenopausal. His response is pending. In the interim she will complete a test for this month so she can obtain her shipment. ?? Disposition/Recommendation: self-care is appropriate at this time, patient encouraged to call back with questions ?? Information/Education: patient/caller able to teach back ?? Caller agreeable to plan of care: yes ?? The following references were used: nursing clinical judgement documented in this encounter Miscellaneous Notes Addendum Note - Cathie Phillips R.N. - 12/07/2020 3:36 PM CDT Addended by: CATHIE PHILLIPS on: 12/07/2020 04:42 PM Modules accepted: Orders documented in this encounter Plan of Treatment Not on filedocumented as of this encounter Visit Diagnoses Diagnosis Other Secondary Pulmonary Hypertension ( HCC) - Primary Medication Therapy Care Home Not Anticoa gulant documented in this encounter Care Teams Crew Team Member Relationship Specialty Start Date End Date Ro Norton APRN, C.N.P., PCP - General Family Medicine D.N.P. [address] [phone] documented as of this encounter
--- OUTSIDE RECORDS SUMMARY | 2021-12-31 07:51 | XMS_ITS | Encounter Summary ---
:1970 Author Organization [facility] Address [address] [place] [address] Care Team Providers Name Role Phone Ro Norton APRN, C.N.P., D.N.P. Primary Care Provider Encounter Details Date Type Department Care Team Description 10/12/2020 Orders Only [facility] Lubna Hendricks M.D. [address] [facility] [address] [place] [address] [place] [phone] (Wo rk) Social History Tobacco Use Types [...] or relatives? How often do you attend moravian or Never 2021 mu-ism services? Do you belong to any clubs or No 02/25/2021 organizations such as moravian groups, unions, fraternal or athletic groups, or [...] on filedocumented in this encounter Care Teams Permastone Applicator Relationship Specialty Start Date End Date Ro Norton APRN, C.N.P., PCP - General Family Medicine D.N.P. [address] [phone] documented as of this encounter
--- OUTSIDE RECORDS SUMMARY | 2021-12-31 07:51 | XMS_ITS | Encounter Summary ---
:1970 Author Organization [facility] Address [address] [place] [address] Care Team Providers Name Role Phone Ro Norton APRN, C.N.P., D.N.P. Primary Care Provider Reason for Visit Reason Comments Med Refill Encounter Details Date Type Department Care Team Description 01/18/2021 Refill Division of Pulmonary Medicine Lubna Cleary M.D. Med Refill in [facility] [address] [facility] [address] [place] [address] [place] [address] [phone] Social History Tobacco Use Types Packs/Day Years [...] or relatives? How often do you attend hinduism or Never 2021 sabianist services? Do you belong to any clubs or No 02/25/2021 organizations such as hinduism groups, unions, fraternal or athletic groups, or [...] encounter Miscellaneous Notes Telephone Encounter - Rafia Jolley - 01/18/2021 9:[address] Wren, We received a refill request for patient's Lasix Script from the [facility] (P: [phone], ). Patient was last seen by you on 09/29/2020 and has no upcoming appointments at this time. ?? Please review the teed up order and approve if appropriate. Thank you, Rafia, Pulmonary Med. Admin. Asst. T TECHNICAL SPECIALIST documented in this encounter Plan of Treatment Not on filedocumented as of this encounter Visit Diagnoses Not on filedocumented in this encounter Care Teams Executive Account Manager Relationship Specialty Start Date End Date Ro Norton APRN, C.N.P., PCP - General Family Medicine D.N.P. [address] [phone] documented as of this encounter
--- OUTSIDE RECORDS SUMMARY | 2021-12-31 07:51 | XMS_ITS | Encounter Summary ---
:1970 Author Organization [facility] Address [address] [place] [address] Care Team Providers Name Role Phone Ro Norton APRN, C.N.P., D.N.P. Primary Care Provider Encounter Details Date Type Department Care Team Description 12/11/2020 Hospital Encounter Department of Lunba Mcmillan Secondary Pulmonary Hypertension (HCC); Laboratory Medicine Michael Ansari Medication Therapy Custodial Not Anticoa gulant in [place] [phone] BL [phone] [place], [place] (Work) [phone] Social History Tobacco Use Types Packs/Day [...] or relatives? How often do you attend confucianism or Never 2021 episcopalian services? Do you belong to any clubs or No 02/25/2021 organizations such as confucianism groups, unions, fraternal or athletic groups, or [...] Start Date End Date ascorbic acid, vitamin Take 100 mg by mouth 0 C, (VITAMIN C) 100 mg daily. tablet multivitamin capsule Take 1 capsule by 0 mouth daily. sildenafil (REVATIO) 20 Take 20 mg by mouth. 0 mg tablet zinc sulfate (ZINCATE) Take 220 mg by mouth 0 220 (50) mg capsule daily. acetaminophen (TYLENOL) Take 2 tablets (1,000 0 0 10/27/2019 12/17/2020 500 mg tablet mg total) by mouth every 6 (six) hours as needed for pain. 1st level for pain control albuterol 90 Inhale 2 puffs 4 1 Inhaler 2 06/19/20202021 mcg/actuation inhaler (four) times a day. furosemide (LASIX) 20 Take 1 tablet (20 mg 30 tablet 3 06/2001/18/2021 mg tablet total) by mouth daily. ipratropium-albuteroL Take 3 mL by 270 mL 3 05/07/2019 0 03/09/2021 (DUO-NEB) 0.5-2.5 mg/3 nebulization 4 (four) mL nebulizer solution times a day as needed for wheezing or shortness of breath. nicotine (NICOTROL) 10 Puff on dispenser for 168 each 0 12/17/2020 mg inhaler several minutes each hour as needed for nicotine withdrawal symptoms. Change cartridge after two to four hours. pramipexole (MIRAPEX) Take 2 tablets (0.25 60 tablet 2 06/202012/17/2020 0.125 mg tablet mg total) by mouth at bedtime. sildenafil (REVATIO) 20 Take 1 tablet (20 mg 90 tablet 11 04/27/2021 mg tabletIndications: total) by mouth 3 Hypertension Pulmonary (three) times a day. Primary (HCC) tadalafiL, pulm. Take 2 tablets (40 mg 60 tablet 11 10/03/19 21 12/24/2020 hypertension, (ADCIRCA) total) by mouth 20 mg tablet daily. 1 tab daily x 2 weeks then 2 tabs daily tiotropium (Spiriva Inhale 1 capsule (18 90 capsule 3 202012/17/2020 with HandiHaler) 18 mcg mcg total) daily. inhalation capsule documented as of this encounter Plan of Treatment Not on filedocumented as of this encounter Visit Diagnoses Diagnosis Other Secondary Pulmonary Hypertension ( HCC) Medication Therapy Custodial Not Anticoa gulant documented in this encounter Care Teams Truck Rental Clerk Relationship Specialty Start Date End Date Ro Norton APRN, C.N.P., PCP - General Family Medicine D.N.P. [address] [phone] documented as of this encounter
--- OUTSIDE RECORDS SUMMARY | 2021-12-31 07:51 | XMS_ITS | Encounter Summary ---
:1970 Author Organization [facility] Address [address] [place] [address] Care Team Providers Name Role Phone Ro Norton APRN, C.N.P., D.N.P. Primary Care Provider Reason for Visit Reason Comments Care Coordination Encounter Details Date Type Department Care Team Description 01/25/2021 Patient Outreach Department of Miranda Phillips, Dilan Textiles Sales Representative rdination Cardiovascular Medicine R.N. in [facility] [address] [facility] [address] [place] [address] [phone] Social History Tobacco Use Types Packs/Day Years [...] or relatives? How often do you attend alevism or Never 2021 restorationist services? Do you belong to any clubs or No 02/25/2021 organizations such as alevism groups, unions, fraternal or athletic groups, or [...] place to sleep or slept in a custodial (including now)? Education Answer Date Recorded What is the highest level of school you have completed or 12 th grade 11/13/2019 the highest degree you have received? Sex Assigned at Date Recorded Female 10/14/2020 12:54 PM CDT documented as of this encounter Progress Notes Miranda Phillips R.N. - 01/25/2021 10:24 AM CST SUBJECTIVE CHIEF COMPLAINT / REASON FOR CALL Care Coordination ASSESSMENT I was able to reach Allison and she indicates she hasn't been taking her Ambrisentan. She took two pills and stopped. She experienced a recent loss and indicates she just, hasn't been taking care of herself. She indicates she is ready to resume her Ambrisentan now at 5 mg daily. PLAN In collaboration with MD Mcmillan a lab order was completed for labs to be drawn 02/15/2021 at the [facility]. Once we have results we can review to see if she is ready to increase to 10 mg daily. Labs due 02/15/2021 Disposition/Recommendation: self-care is appropriate at this time, patient encouraged to call back with questions. Information/Education: patient/caller able to teach back. Caller agreeable to plan of care: yes. The following references were used: nursing clinical judgement. TIC CRESYLATE SHIFT SUPERINTENDENT documented in this encounter Plan of Treatment Scheduled Orders Name Type Priority Associated Diagnoses Order S chedule AST (Aspartate Lab Routine Other Secondary Pulmonary Expected: Aminotransferase) Hypertension ( HCC) 02/15/2021, Expires: Medication Therapy Long 07/2022 Term Not Anticoagulant ALT (Alanine Lab Routine Other Secondary Pulmonary Ex pected: Aminotransferase) Hypertension ( HCC) 02/15/2021, Expires: Medication Therapy Long 07/2022 Term Not Anticoagulant Alkaline Phosphatase Lab Routine Other Secondary Pulm onary Expected: Hypertension (HC C) 02/15/2021, Expires: Medication Therapy Long 07/2022 Term Not Anticoagulant Bilirubin, Total Lab Routine Other Secondary Pulmonar y Expected: Hypertension (HC C) 02/15/2021, Expires: Medication Therapy Long 07/2022 Term Not Anticoagulant CBC without Differential Lab Routine Other Secondary Pulmonary Expected: Hypertension (HC C) 02/15/2021, Expires: Medication Therapy Long 07/2022 Term Not Anticoagulant documented as of this encounter Visit Diagnoses Diagnosis Other Secondary Pulmonary Hypertension ( HCC) - Primary Medication Therapy [facility]ci Not Anticoa gulant documented in this encounter Care Teams Communication Center Coordinator Relationship Specialty Start Date End Date Ro Norton APRN, C.N.P., PCP - General Family Medicine D.N.P. [address] [phone] documented as of this encounter
--- OUTSIDE RECORDS SUMMARY | 2021-12-31 07:51 | XMS_ITS | Encounter Summary ---
:1970 Author Organization [facility] Address [address] [place] [address] Care Team Providers Name Role Phone Ro Norton APRN, C.N.P., D.N.P. Primary Care Provider Encounter Details Date Type Department Care Team Description 10/14/2020 Orders Only Pharmacy Prior Auth [place] Ro Norton APRN, C.N.P., D.N.P. [address] [place] [phone] (Wo rk) Social History Tobacco Use [...] do you attend gnosticism or Never 2021 confucianist services? Do you [...] on filedocumented in this encounter Care Teams Communication Specialist Relationship Specialty Start Date End Date Ro Norton APRN, C.N.P., PCP - General Family Medicine D.N.P. [address] [phone] documented as of this encounter
--- OUTSIDE RECORDS SUMMARY | 2021-12-31 07:51 | XMS_ITS | Encounter Summary ---
:1970 Author Organization [facility] Address [address] [place] [address] Care Team Providers Name Role Phone Ro Norton APRN, C.N.P., D.N.P. Primary Care Provider Encounter Details Date Type Department Care Team Description 02/01/2021 Orders Only [facility] Olga [place] Pharm.D., R.Ph. [address] [phone] [place], [place] [phone] (Wo rk) Social History Tobacco Use [...] do you attend confucianism or Never 2021 baptism services? Do you [...] on filedocumented in this encounter Care Teams Tool Planer Set Up Operator Relationship Specialty Start Date End Date Ro Norton APRN, C.N.P., PCP - General Family Medicine D.N.P. [address] [phone] documented as of this encounter
--- OUTSIDE RECORDS SUMMARY | 2021-12-31 07:51 | XMS_ITS | Encounter Summary ---
:1970 Author Organization [facility] Address [address] [place] [address] Care Team Providers Name Role Phone Ro Norton APRN, C.N.P., D.N.P. Primary Care Provider Encounter Details Date Type Department Care Team Description 12/16/2020 Patient Self-Triage CONNECTED CARE Symptom Wet Process [place], Provider Social History Tobacco Use Types Packs/Day Years [...] do you attend zoroastrianism or Never 2021 moravian services? Do you belong to any clubs [...] place to sleep or slept in a intermediate (including now)? Education Answer Date Recorded What is the highest level of school you have completed or 12 th grade 11/13/2019 the highest degree you have received? Sex Assigned at Date Recorded Female 10/14/2020 12:54 PM CDT documented as of this encounter Plan of Treatment Not on filedocumented as of this encounter Visit Diagnoses Not on filedocumented in this encounter Additional Health Concerns Infection Onset Date Last Indicated Resolved Time COVID19 Pending 12/16/2020 12/16/2020 01/05/2021 4:50 AM MARKET ANALYSIS DIRECTOR documented as of this encounter Care Teams Tradeshow Worker Relationship Specialty Start Date End Date Ro Norton APRN, C.N.P., PCP - General Family Medicine D.N.P. [address] [phone] documented as of this encounter
--- OUTSIDE RECORDS SUMMARY | 2021-12-31 07:51 | XMS_ITS | Encounter Summary ---
:1970 Author Organization [facility] Address [address] [place] [address] Care Team Providers Name Role Phone Ro Norton APRN, C.N.P., D.N.P. Primary Care Provider Reason for Visit Reason Comments Med Refill Encounter Details Date Type Department Care Team Description 01/28/2021 Refill Division of Pulmonary Medicine Lubna Cleary M.D. Med Refill in [facility] [address] [facility] [address] [place] [address] [place] [address] [phone] Social History Tobacco Use Types Packs/Day Years [...] or relatives? How often do you attend advent or Never 2021 roman catholic services? Do you belong to any clubs or No 02/25/2021 organizations such as advent groups, unions, fraternal or athletic groups, or [...] this encounter Miscellaneous Notes Telephone Encounter - Chanell Alvarez - 01/28/2021 11:27 AM CST Images from the original note were not included. Nurse review: Unable to pend medication to provider; Requested medication is not on patient's current med list. Name of Medication: Wixela Inhub Strength: 250-50 mcg/dose Last Seen: 09/29/2020-Dr. Mcmillan-Virtual Visit Pharmacy: [facility]-[address]?? CLEANER documented in this encounter Plan of Treatment Not on filedocumented as of this encounter Visit Diagnoses Not on filedocumented in this encounter Care Teams Jewel Sawyer Relationship Specialty Start Date End Date Ro Norton APRN, C.N.P., PCP - General Family Medicine D.N.P. [address] [place] [phone] documented as of this encounter
--- OUTSIDE RECORDS SUMMARY | 2021-12-31 07:51 | XMS_ITS | Encounter Summary ---
:1970 Author Organization [facility] Address [address] [place] [address] Care Team Providers Name Role Phone Ro Norton APRN, C.N.P., D.N.P. Primary Care Provider Encounter Details Date Type Department Care Team Description 10/12/2020 Orders Only [facility] Pharm[facility] - Ro Servin APRN, [address] [facility] 1 C.N.P., D.N.P. KARTHIK LEE [phone] [place] [address] [place] [phone] (Wo rk) Social History Tobacco Use [...] do you attend pentecostal or Never 2021 yarsani services? Do you belong to any clubs [...] on filedocumented in this encounter Care Teams Waiter/Waitress Club Relationship Specialty Start Date End Date Ro Norton APRN, C.N.P., PCP - General Family Medicine D.N.P. [address] [phone] documented as of this encounter
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
--- OUTSIDE RECORDS SUMMARY | 2021-12-31 07:51 | XMS_ITS | Encounter Summary ---
:1970 Author Organization [facility] Address [address] [place] [address] Care Team Providers Name Role Phone Ro Norton APRN, C.NDean, MileN.PRaffy Primary Care Provider Encounter Details Date Type Department Care Team Description 12/11/2020 Orders Only Department of [facility] Ro Norton, [facility] Medication Medicine, [place] MORGAN C.N.PRaffy, ([facility] Sc[facility]) Clinic, in [place] [address] [phone] Social History Tobacco Use Types Packs/Day Years [...] or relatives? How often do you attend sabianism or Never 2021 anabaptist services? Do you belong to any clubs or No 02/25/2021 organizations such as sabianism groups, unions, fraFabkids or athletic groups, or school groups? How [...] on filedocumented as of this encounter Results Test, POCT, Urine (lab) (12/11/2020 5:27 PM CDT) P athologist Signature Negative 12/11/2020 CNFL Test, POCT, U 5:32 PM CDT Specimen Anatomical Collection Method Collection Time Receive d Time (Source) Location / / Volume Laterality Urine (Urine, 12/11/2020 5:27 PM 12/12/19 5:27 Clean Catch) CDT PM CDT Ro Norton APRN, C.N.P., D.N.P. LAB POCT ORDERABL ES - DEVICE Performing Organization Address City/State/ZIP Code Phon e Number [facility]- [address] [place] [id number] [place] [address] System in [address] documented in this encounter Visit Diagnoses Diagnosis High Risk Medication - Primary documented in this encounter Additional Health Concerns Infection Onset Date Last Indicated Resolved Time COVID19 Pending 12/16/2020 12/16/2020 01/05/2021 4:50 AM MANAGER OF SELECTION AND ASSESSMENT documented as of this encounter Care Teams Community Services Manager Relationship Specialty Start Date End Date Ro Norton APRN, C.N.P., PCP - General Family Medicine D.N.P. [id number] [phone] documented as of this encounter
--- OUTSIDE RECORDS SUMMARY | 2021-12-31 07:51 | XMS_ITS | Encounter Summary ---
:1970 Author Organization [facility] Address [address] [place] [address] Care Team Providers Name Role Phone Ro Norton APRN C.N.PRaffy, D.N.P. Primary Care Provider Reason for Visit Reason Comments URI Encounter Details Date Type Department Care Team Description 02/25/2021 Telemedicine [facility] Nickie Zamora, Infe ction Upper Respiratory (Primary Dx); Care at [facility] MORGAN C.N.P., Chronic Obstructive Pulmonar y Disease Without Exacerbation (HCC) [address] TIMO Pace.N.P. [place], [place] [address] [facility] [address] [place], [place] [phone] Social History Tobacco Use Types Packs/Day Years [...] or relatives? How often do you attend yazidism or Never 2021 anglican services? Do you belong to any clubs or No 02/25/2021 organizations such as yazidism groups, unions, fraternal or athletic groups, or [...] documented as of this encounter Progress Notes Nickie Zamora APRN, C.N.P., D.N.P. - 02/25/2021 11:00 AM CST SUBJECTIVE CHIEF COMPLAINT / REASON FOR VISIT Video visit arranged today to discuss URI. This visit was arranged in the midst of the COVID-19 pandemic. Consult conducted via real-time audio/video technology by Nickie Zamora APRN, C.N.P., D.N.P. in [facility] to the patient's home. HISTORY OF PRESENT ILLNESS Patient is a pleasant 50 year old female with a significant past medical history including COPD and pulmonary hypertension who arranged a video appointment for evaluation of upper respiratory symptoms.Patient states she started feeling unwell 2 days ago. Began with a runny nose, now has chest congestion but denies any chest pain or shortness of breath. Does have productive cough with yellow secretions. Denies fever, chills, diaphoresis. She is able to drink water and eat per usual. Denies syncope but does have lightheadedness with multiple coughs but attributes this to her underlying cardiac disease. She has been using her PRN albuterol, ICS, nebulizers along with her chronic medications. Albuterol has been helping her wheezing, at time of appointment patient denies wheezing. Was seen by telemed in November for similar symptoms which resolved with oral steroids and antibiotics. Has not been around anyone in the past 2 weeks and has not tested for COVID 19. Patient states she knows her body and that she does not need to go to the ER but would like treatment to stay on top of her illnesses. She states that sometimes her oxygen levels are low but that she???does not feel like they are low at this time. She does not have a car to get to a clinic appointment for in person evaluation. The patient's allergies, current medications, problem list, and social history were reviewed and updated as appropriate. OBJECTIVE PHYSICAL EXAMINATION Exam limited due to this being a video appointment. Patient able to talk in complete sentences and does not appear to be in respiratory distress. Patient coughing throughout interview but alert and interactive moving around her home. ASSESSMENT / PLAN #1 Infection Upper Respiratory #2 Chronic Obstructive Pulmonary Disease Without Exacerbation ([facility]) Informed patient that due to the chronicity of her problems coupled with a second acute illness in the past 3 months, she is better served by discussing her plan of care with a member of her primary care team. Patient states that she was unable to get a video visit in [place], therefore she chosethis express care option. Unfortunately her presentation is outside the scope of express care practice. I recommended an in-person evaluation for physical examination and vital sign assessment to verify accurate diagnosis and subsequent treatment of her illness. Patient mentions that she did not have a car or any ability to travel to the clinic for an in-person appointment. Encouraged patient to contact a taxi or call 911 for emergency transportation to hospital which patient declined. Suggested that patient contact her primary care teams nurse triage for further assistance. There are no Patient Instructions on file for this visit. Patient has a [facility] online portal account, can view medication list electronically. ?? Ready to learn, no apparent learning barriers were identified; learning preferences include listening. Explained diagnosis and treatment plan; patient/child/caregiver expressed understanding of the content; and is in agreement with the plan above. I personally spent a total of 20 minutes in [id number] time performing a review of the record and/or discussion with the patient/caregiver as described above. H HAULER documented in this encounter Plan of Treatment Not on filedocumented as of this encounter Visit Diagnoses Diagnosis Infection Upper Respiratory - Primary Chronic Obstructive Pulmonary Disease Wi thout Exacerbation (HCC) documented in this encounter Care Teams Net Mvc Developer Relationship Specialty Start Date End Date Ro Norton APRN, C.N.P., PCP - General Family Medicine D.N.P. [id number] [phone] documented as of this encounter
--- OUTSIDE RECORDS SUMMARY | 2021-12-31 07:51 | XMS_ITS | Encounter Summary ---
:1970 Author Organization [facility] Address [address] [place] [address] Care Team Providers Name Role Phone Ro Norton APRN, C.N.P., D.N.P. Primary Care Provider Reason for Visit Reason Comments Med Refill Encounter Details Date Type Department Care Team Description 03/09/2021 Clinical Communication [facility] Karine Coles Med Refill Mineral A, Pharm.D., [address] [place] [address] R.Ph. [place] [phone] [facility] [phone] [place] [phone] Social History Tobacco Use Types Packs/Day Years [...] do you attend alevism or Never 2021 confucianism services? Do you belong to any clubs [...] - Ro Norton APRN, C.N.P., D.N.P. - 03/09/2021 2:17 PM CST Refill sent. E RESEARCHER Telephone Encounter - Karine Coles Pharm.D., R.Ph. - 03/09/2021 2:12 PM CST Allison is requesting a refill of Duonebs. Thank you, [facility] - Mineral E RESEARCHER documented in this encounter Plan of Treatment Not on filedocumented as of this encounter Visit Diagnoses Not on filedocumented in this encounter Care Teams Ditch Inspector Relationship Specialty Start Date End Date Ro Norton APRN C.N.P., PCP - General Family Medicine D.N.P. [address] [phone] documented as of this encounter
--- OUTSIDE RECORDS SUMMARY | 2021-12-31 07:51 | XMS_ITS | Encounter Summary ---
:1970 Author Organization [facility] Address [address] [place] [address] Care Team Providers Name Role Phone Ro Norton APRN, C.N.P., D.N.P. Primary Care Provider Encounter Details Date Type Department Care Team Description 12/23/2020 Orders Only [facility] [place] DRaffyDRaffyS. [address] [place] [address] [address] [place], [place] [address] [place] [address] [phone] (Wo rk) Social History Tobacco Use Types [...] or relatives? How often do you attend latter-day or Never 2021 denominational services? Do you belong to any clubs or No 02/25/2021 organizations such as latter-day groups, unions, fraternal or athletic groups, or [...] place to sleep or slept in a mcfp (including now)? Education Answer Date Recorded What [...] COVID19 Pending 12/16/2020 12/16/2020 01/05/2021 4:50 AM MATERIALS TECHNICIAN documented as of this encounter Care Teams Stock Preparation Supervisor Relationship Specialty Start Date End Date Ro Norton APRN, C.N.P., PCP - General Family Medicine D.N.P. [address] [phone] documented as of this encounter
--- OUTSIDE RECORDS SUMMARY | 2021-12-31 07:51 | XMS_ITS | Encounter Summary ---
:1970 Author Organization [facility] Address [address] [place] [address] Care Team Providers Name Role Phone Ro Norton APRN C.N.Kirsty, D.N.P. Primary Care Provider Encounter Details Date Type Department Care Team Description 12/11/2020 Hospital Encounter Department of Ro Norton Medication Laboratory Medicine MORGAN Ansari, in [place] TownsendNDean, D.N.P. [address] [place], [phone] [place] [phone] Social History Tobacco Use Types Packs/Day Years [...] do you attend samaritan or Never 2021 caodaism services? Do you [...] Name Priority Date/Time Associated Diagnosis Comme nts TEST, Routine 12/11/2020 5:27 PM High Risk Medicatio n Results for this POCT, U (LAB) CDT procedure are in the results section. documented in this encounter Results Test, POCT, Urine (lab) [...] Organization Address City/State/ZIP Code Phon e Number [facility]- [address] [place] [address] [place] [address] [place] [address] System [address] documented in this encounter Visit Diagnoses Diagnosis High Risk Medication documented in this encounter Care Teams Tank Charger Relationship Specialty Start Date End Date Ro Norton APRN, C.N.P., PCP - General Family Medicine D.N.P. [address] [place] [phone] documented as of this encounter
--- OUTSIDE RECORDS SUMMARY | 2021-12-31 07:51 | XMS_ITS | Encounter Summary ---
:1970 Author Organization [facility] Address [address] [place] [address] Care Team Providers Name Role Phone Ro Norton APRN C.N.PRaffy, D.N.P. Primary Care Provider Reason for Visit Reason Comments Med Refill Encounter Details Date Type Department Care Team Description 11/24/2020 Refill Department of Family Medicine, Ro Norton APRN, Med Refill [facility], in [place] C .N.P., D.N.P. [address] [phone] (Wo rk) Social History Tobacco Use Types [...] or relatives? How often do you attend denominational or Never 2021 anabaptist services? Do you belong to any clubs or No 02/25/2021 organizations such as denominational groups, unions, fraternal or athletic groups, or [...] on filedocumented in this encounter Care Teams Assistant Professor Of Art Relationship Specialty Start Date End Date Ro Norton APRN, C.N.P., PCP - General Family Medicine D.N.P. [address] [phone] documented as of this encounter
--- OUTSIDE RECORDS SUMMARY | 2021-12-31 07:51 | XMS_ITS | Encounter Summary ---
:1970 Author Organization [facility] Address [address] [place] [address] Care Team Providers Name Role Phone Ro Norton APRN, Bolivar.N.P., D.N.P. Primary Care Provider Reason for Visit Reason Comments Cough O2 at night and using neb an d inhalers yellow and light green plegem, covid test yesterday was neg , no nausea vomitting or fever. Encounter Details Date Type Department Care Team Description 03/01/2021 Telemedicine Department of [facility] Ro Norton Ch ronic Obstructive Pulmonary Disease Exacerbation (HCC) (Primary Dx); Medicine, Law MORA, C.N.P., Other Seco ndary Pulmonary Hypertension (HCC); [facility], in D.N.P. Infection Upper Respiratory [address] [phone] Social History Tobacco Use Types Packs/Day [...] do you attend islam or Never 2021 sabianist services? Do you belong to any clubs or No 02/25/2021 organizations such as islam groups, unions, [employer] or athletic groups, or school groups? How [...] documented as of this encounter Progress Notes Ro Norton, MORGAN, C.N.P., D.N.P. - 03/01/2021 1:30 PM CST SUBJECTIVE CHIEF COMPLAINT/REASON FOR VISIT Allison Schulz is a 50 y.o. female who presents for evaluation of Cough (O2 at night and using neb and inhalers yellow and light green plegem, covid test yesterday was neg , no nausea vomitting or fever. ). This is a virtual visit. HISTORY OF PRESENT ILLNESS Allison Schulz presents for video appointment for ???chest cold?? . Patient reports that symptoms have been present for the past several weeks including will discharge, sinus pressure, sore throat, cough and generalized malaise all of which has improved besides the cough. She reports that it has settled in her chest and she now has a productive cough and shortness of breath. She does not have any fevers or night sweats. She does not have any lower extremity edema. She reports that her weight is stable. She has been taking her medications as prescribed besides the ambrisentan which she self discontinued due to side effect of headache. She is due to follow-up with her cardiology team, but has not yetscheduled this. She reports that besides the current upper respiratory infection she overall feels well. She does report that she has had a extremely difficult past several months as her boyfriend Patricia from a heart attack in his sleep. She also reports that she was evicted from her home and so is in the process of moving. She reports that she had a COVID test at home yesterday which was negative. She has been taking her inhalers and nebulizers as prescribed and they do help with her symptoms. REVIEW OF SYSTEMS A brief review of systems was negative except for that mentioned in the history of present of illness. CURRENT MEDICATIONS Current Outpatient Medications Medication Sig ??? albuterol 90 mcg/actuation inhaler Inhale 2 puffs 4 (four) times a day. ??? ambrisentan (LETAIRIS) 5 mg tablet Take 1 tablet (5 mg total) by mouth daily. ??? ascorbic acid, vitamin C, (vitamin C) 100 mg tablet Take 100 mg by mouth daily. ??? DME Oxygen Administer 1 L into nostril(s) at bedtime. DME Order ??? furosemide (LASIX) 20 mg tablet Take 1 tablet (20 mg total) by mouth daily. ??? multivitamin capsule Take 1 capsule by mouth daily. ??? pramipexole (MIRAPEX) 0.125 mg tablet Take 2 tablets (0.25 mg total) by mouth at bedtime. ??? sildenafil (REVATIO) 20 mg tablet Take 1 tablet (20 mg total) by mouth 3 (three) times a day. ??? Wixela Inhub 250-50 mcg/act diskus inhaler Inhale 1 puff 2 (two) times a day. Rinse mouth with water after use to reduce aftertaste and incidence of candidiasis. Do not swallow. ??? zinc sulfate (ZINCATE) 220 (50) mg capsule Take 220 mg by mouth daily. ??? doxycycline monohydrate (ADOXA) 100 mg tablet Take 1 tablet (100 mg total) by mouth 2 (two) times a day for 5 days. ??? ipratropium-albuteroL (DUO-NEB) 0.5-2.5 mg/3 mL nebulizer solution Take 3 mL by nebulization 4 (four) times a day as needed for wheezing or shortness of breath. ??? predniSONE (DELTASONE) 20 mg tablet Take 2 tablets (40 mg total) by mouth daily. ALLERGIES/CONTRAINDICATIONS Allergies Allergen Reactions ??? Sulfa (Sulfonamide Antibiotics) Angioedema OBJECTIVE PHYSICAL EXAMINATION Visual examination performed as indicated for virtual visit. General: Alert and oriented in no acute distress. ASSESSMENT / PLAN 1. Other Secondary Pulmonary Hypertension (HCC) Encouraged patient to follow-up with her final inspector shuttle as ordered. Discussed the importance of frequent surveillance of her disease and medications. She reports that she plans to schedule this follow-upfollowing her move. 2. Chronic Obstructive Pulmonary Disease Exacerbation (HCC) 3. Infection Upper Respiratory Encouraged continued use of her inhalers and nebulizers. Will treat with prednisone and doxycycline for possible pneumonia given her tenuous heart and lung status. Discussed that she needs to be evaluated in person for any worsening or lack of improvement in symptoms. Plan was discussed with patient and is in agreement with plan. All questions were answered, side effects of any/all new medications were discussed. Ready to learn. No apparent learning barriers were identified. Learning preferences include listening. Explained diagnosis and treatment plan. Patient/Child/Caregiver expressed understanding of the content. No LOS data to display This Video Visit was performed during the COVID-19 emergency, when many states had issued [id number] orders. Ro Norton APRN, C.N.P., D.N.P. IGERATION OPERATOR documented in this encounter Plan of Treatment Not on filedocumented as of this encounter Visit Diagnoses Diagnosis Chronic Obstructive Pulmonary Disease Ex acerbation (HCC) - Primary Other Secondary Pulmonary Hypertension ( HCC) Infection Upper Respiratory documented in this encounter Care Teams Whale Trainer Relationship Specialty Start Date End Date Ro Norton APRN, C.N.P., PCP - General Family Medicine D.N.P. [address] [phone] documented as of this encounter
--- OUTSIDE RECORDS SUMMARY | 2021-12-31 07:51 | XMS_ITS | Encounter Summary ---
:1970 Author Organization [facility] Address [address] [place] [address] Care Team Providers Name Role Phone Ro Norton APRN, C.N.P., D.N.P. Primary Care Provider Reason for Visit Reason Comments Opsumit Denial Encounter Details Date Type Department Care Team Description 10/15/2020 Clinical Communication Division of Lubna Mcmillan Pulmonary Medicine Michael Ansari in [place], [address] [place] [address] [place] [phone] [place], [place] [phone] (Work) [phone] Social History Tobacco Use Types Packs/Day Years [...] do you attend zoroastrian or Never 2021 christianity services? Do you [...] Telephone Encounter - Lubna Mcmillan M.D. - 10/22/2020 9:46 PM CDT Would do ambrisentan instead. She needs a second drug Telephone Encounter - Nya Cannon R.N. - 10/22/2020 4:23 PM CDT Images from the original note were not included. Patient has started sildenafil however Opsumit was denied by insurance. Telephone Encounter - Rafia Bills - 10/15/2020 3:21 PM CDT We received a letter from Ms. Schulz's insurance stating that Opsumit has been denied. I have faxed this letter to pulmonary hypertension at [phone] and scanned in this document to the patient's chart. Thank you, Rafia, Pulmonary Med. Admin. Asst. documented in this encounter Plan of Treatment Not on filedocumented as of this encounter Visit Diagnoses Not on filedocumented in this encounter Care Teams Electronic Train Control Technician Relationship Specialty Start Date End Date Ro Norton APRN, C.N.P., PCP - General Family Medicine D.N.P. [address] [phone] documented as of this encounter
--- OUTSIDE RECORDS SUMMARY | 2021-12-31 07:52 | XMS_ITS | Encounter Summary ---
:1970 Author Organization [facility] Address [address] [place] [address] Care Team Providers Name Role Phone Ro Norton APRN, C.N.P., D.N.P. Primary Care Provider Encounter Details Date Type Department Care Team Description 09/10/2020 Orders Only RST CCM Lubna Mcmillan M.D. [address] [facility] [address] [place] [address] [place] [address] (Wo rk) Social History Tobacco Use Types [...] or relatives? How often do you attend amish or Never 2021 gnosticism services? Do you belong to any clubs or No 02/25/2021 organizations such as amish groups, unions, fraternal or athletic groups, or [...] on filedocumented in this encounter Care Teams Group Home Worker Relationship Specialty Start Date End Date Ro Norton APRN, C.N.P., PCP - General Family Medicine D.N.P. [address] [phone] documented as of this encounter
--- OUTSIDE RECORDS SUMMARY | 2021-12-31 07:52 | XMS_ITS | Encounter Summary ---
:1970 Author Organization [facility] Address [address] [place] [address] Care Team Providers Name Role Phone Ro Norton APRN, C.N.P., D.N.P. Primary Care Provider Encounter Details Date Type Department Care Team Description 10/12/2020 Orders Only Pharmacy Prior Auth [facility] [phone] Social History Tobacco Use Types Packs/Day Years [...] or relatives? How often do you attend hindu or Never 2021 denominational services? Do you belong to any clubs or No 02/25/2021 organizations such as hindu groups, unions, fraternal or athletic groups, or [...] place to sleep or slept in a jail (including now)? Education Answer Date Recorded What is the highest level of school you have completed or 12 th grade 11/13/2019 the highest degree you have received? Sex Assigned at Date Recorded Female 10/14/2020 12:54 PM CDT documented as of this encounter Plan of Treatment Not on filedocumented as of this encounter Visit Diagnoses Not on filedocumented in this encounter Care Teams An/Sqq 89(V)15 Sonar System Journeyman Relationship Specialty Start Date End Date Ro Norton APRN, C.N.P., PCP - General Family Medicine D.N.P. [address] [phone] documented as of this encounter
--- OUTSIDE RECORDS SUMMARY | 2021-12-31 07:52 | XMS_ITS | Encounter Summary ---
:1970 Author Organization [facility] Address [address] [place] [address] Care Team Providers Name Role Phone Ro Norton APRN, C.N.P., D.N.P. Primary Care Provider Reason for Visit Outpatient (Routine) - Closed Specialty Diagnoses / Procedures Referred By Contact Refer red To Contact Cardiovascular Disease Lubna Mcmillan [place] [address] [place] M.D. [address] [place] [phone] Referral ID Status Reason Start Date Expiration Date Visits Requ ested Visits Authorized [id number] Closed 09/23/2020 09/23/2021 1 1 Encounter Details Date Type Department Care Team Description 09/28/2020 Virtual Visit Department of Lubna Mcmillan M.D. [address] [place] [phone] Shortness Of Breath Cardiovascular Medicine Kirsten Barton, R.NRaffy [address] [place] [phone] in [facility] [address] [place] [phone] Social History Tobacco Use Types Packs/Day Years [...] do you attend cheondoism or Never 2021 moravian services? Do you [...] PM CDT documented as of this encounter Patient Instructions Patient InstructionsKirsten Barton, EthanN. - 09/28/2020 2:30 PM CDT Unable to reach patient via phone to provide these instructions. Pre-procedure instructions include: 1. Basic information about the scheduled procedure 2. Fasting for 8 hours, 6 hours, and 2 hours prior to report time; refer to page 8 of the pamphlet entitled Preparing For Your Cardiac Catheterization or Heart Rhythm Procedure for details 3. Presence of a responsible adult (18 years of age or older) the day of procedure as well as for transportation home 4. See updated Visitor policy: Due to the COVID-19 pandemic, visitor restrictions are in place. Two visitors are permitted to accompany the patient to any outpatient appointments, procedures, and the patient's hospital room. Visiting hours are 7 am to 9 pm. 5. Stay within 100 miles of [place] overnight 6. Take all medications as instructed 7. Call the [facility] Service Line ([phone]) the evening before the procedure between the hours of 7 pm and midnight to learn what time and where to report to the hospital the next day Vitamins/Supplements Instructions: Do not take vitamins or supplements the morning of the procedure. documented in this encounter Progress Notes Kirsten Barton R.N. - 09/28/2020 2:30 PM CDT Three attempts were made to contact the patient via phone to review pre- procedure education information. I was unable to reach the patient and left a message with a phone number for her to call to reach us. documented in this encounter Plan of Treatment Not on filedocumented as of this encounter Visit Diagnoses Diagnosis Shortness Of Breath documented in this encounter Care Teams Neck Pinner Relationship Specialty Start Date End Date Ro Norton APRN, C.N.P., PCP - General Family Medicine D.N.P. [address] [phone] documented as of this encounter
--- OUTSIDE RECORDS SUMMARY | 2021-12-31 07:52 | XMS_ITS | Encounter Summary ---
:1970 Author Organization [facility] Address [address] [place] [address] Care Team Providers Name Role Phone Ro Norton APRN, C.N.P., D.N.P. Primary Care Provider Encounter Details Date Type Department Care Team Description 10/03/2020 Orders Only [facility] Olga [place] Pharm.D., R.Ph. [address] [phone] [place], [place] [phone] (Wo rk) Social History Tobacco Use [...] or relatives? How often do you attend jainism or Never 2021 synagogue services? Do you belong to any clubs or No 02/25/2021 organizations such as jainism groups, unions, fraternal or athletic groups, or [...] on filedocumented in this encounter Care Teams Vice Chancellor Relationship Specialty Start Date End Date Ro Norton APRN, C.N.P., PCP - General Family Medicine D.N.P. [address] [phone] documented as of this encounter
--- OUTSIDE RECORDS SUMMARY | 2021-12-31 07:52 | XMS_ITS | Encounter Summary ---
:[address] [facility] Address [address] [place] [address] Care Team Providers Name Role Phone Ro Norton APRN C.N.P., D.N.P. Primary Care Provider Encounter Details Date Type Department Care Team Description 09/21/2020 Clinical Communication Department of Lubna Mcmillan Cardiovascular Medicine Michael Ansari in [facility] [address] [facility] [address] [place] [phone] [phone] Social History Tobacco Use Types Packs/Day Years [...] or relatives? How often do you attend holiness or Never 2021 congregation services? Do you belong to any clubs or No 02/25/2021 organizations such as holiness groups, unions, fraternal or athletic groups, or [...] Telephone Encounter - Lubna Mcmillan M.D. - 09/23/2020 10:55 AM CDT Listed for september 29. Will also need return visit add on (just double book at 3:30pm) and will need repeat covid swab. Telephone Encounter - Katia Ward - 09/21/2020 11:[address] Mcmillan, Ms. Schulz called this morning to get her cath scheduled. Can you please list the cath for sometime next week? Thank you, Katia documented in this encounter Plan of Treatment Not on filedocumented as of this encounter Visit Diagnoses Not on filedocumented in this encounter Additional Health Concerns Infection Onset Date Last Indicated Resolved Time COVID19 Pending 09/25/2020 09/25/2020 09/25/2020 11:14 PM CDT documented as of this encounter Care Teams Court Deputy Relationship Specialty Start Date End Date Ro Norton APRN, C.N.P., PCP - General Family Medicine D.N.P. [address] [phone] documented as of this encounter
--- OUTSIDE RECORDS SUMMARY | 2021-12-31 07:52 | XMS_ITS | Encounter Summary ---
:1970 Author Organization [facility] Address [address] [place] [address] Care Team Providers Name Role Phone Ro Norton APRN, C.N.P., D.N.P. Primary Care Provider Reason for Visit Reason Comments Rx Prior Authorization [place] DENIED - NICOTROL INH 10M G Encounter Details Date Type Department Care Team Description 09/14/2020 Clinical Division of [facility], Rx Prior Communication Pulmonary Medicine Joy Amaya Authorization (PA in [place], [address] [facility] DENIED - NICOTROL INH [place] [address] ) [address] [facility] [address] [place], [place] [phone] (Work) [phone] Social History Tobacco Use Types Packs/Day Years [...] or relatives? How often do you attend sikh or Never 2021 gnosticism services? Do you belong to any clubs or No 02/25/2021 organizations such as sikh groups, unions, fraternal or athletic groups, or [...] Notes Telephone Encounter - Rafia Bills - 09/17/2020 12:[address] Wren, We received the PA denial letter in the mail as well. It appears coverage for the Nicotrol Inhalation Inhaler 10 MG is denied because the patient must try 2 of the following formulary drugs first: nicotine patch, nicotine gum, or nicotine lozenge. ?? Would you like to appeal this denial or prescribe an alternative? Please let me know how you wishto move forward. If we can provide proof that the patient has tried other medications and they didn't work or she hadan allergy it may be approved. Thank you, Raifa, Pulmonary Med. Admin. Asst. Telephone Encounter - Dawson Aguirre - 09/14/2020 10:39 AM CDT The patient's health insurer has denied prior authorization for NICOTROL INH 10MG . To view the denial letter: 1. Go [...] documented as of this encounter Care Teams Partner Relationship Specialty Start Date End Date Ro Norton APRN, C.N.P., PCP - General Family Medicine D.N.P. [address] [phone] documented as of this encounter
--- OUTSIDE RECORDS SUMMARY | 2021-12-31 07:52 | XMS_ITS | Encounter Summary ---
:1970 Author Organization [facility] Address [address] [place] [address] Care Team Providers Name Role Phone Ro Norton APRN, C.N.P., D.N.P. Primary Care Provider Encounter Details Date Type Department Care Team Description 08/27/2020 Diagnostic Division of Pulmonary Lubna Mcmillan, Other Secondary Pulmonary Hypertension (HCC); [place] Shortness Of Breath [place] [address] [facility] [address] [place] [phone] [phone] Social History Tobacco Use Types Packs/Day Years [...] do you attend gnosticist or Never 2021 scientologist services? Do you [...] Name Priority Date/Time Associated Diagnosis Comme nts OXYGEN TITRATION Routine 08/27/2020 8:39 AM Other Secondary Re sults for this CDT Pulmonary Hypertension proce dure are in (HCC) the results Shortness Of Breath section. documented in this encounter Results Oxygen Titration (08/27/2020 8:39 AM CDT) [facility] gist Method Time Signature [1] Inspired Room Air MMODAL Gas (L/min) [1] Interface N/A MMODAL [1] Speed Rest MMODAL (mph) [1] Grade (%) 0 MMODAL [1] Time 10 MMODAL (min) [1] SpO2 (%) 95 MMODAL [1] Heart 84 MMODAL Rate [1] Ratings 6 MMODAL of Perceived Exertion (6-20) [2] Inspired Room Air MMODAL Gas (L/min) [2] Interface N/A MMODAL [2] Speed 1.2 MMODAL (mph) [2] Grade (%) 0 MMODAL [2] Time 3 MMODAL (min) [2] SpO2 (%) 92 MMODAL [2] Heart 90 MMODAL Rate [2] Ratings 7 MMODAL of Perceived Exertion (6-20) [3] Inspired Room Air MMODAL Gas (L/min) [3] Interface N/A MMODAL [3] Speed 1.5 MMODAL (mph) [3] Grade (%) 1.5 MMODAL [3] Time 1 MMODAL (min) [3] SpO2 (%) 91 MMODAL [3] Heart 92 MMODAL Rate [3] Ratings 8 MMODAL of Perceived Exertion (6-20) [4] Inspired Room Air MMODAL Gas (L/min) [4] Interface N/A MMODAL [4] Speed 2.0 MMODAL (mph) [4] Grade (%) 2.0 MMODAL [4] Time 1 MMODAL (min) [4] SpO2 (%) 88 MMODAL [4] Heart 108 MMODAL Rate [4] Ratings 9 MMODAL of Perceived Exertion (6-20) [5] Inspired 1 MMODAL Gas (L/min) [5] Interface Nasal cannula MMODAL [5] Speed 2.0 MMODAL (mph) [5] Grade (%) 2.0 MMODAL [5] Time 2 MMODAL (min) [5] SpO2 (%) 92 MMODAL [5] Heart 109 MMODAL Rate [5] Ratings 13 MMODAL of Perceived Exertion (6-20) Comment Total Exercise MMODAL Time=7 minutes. Forehead probe used. Additional time spent on oxygen education. All of her questions were answered at this time. Specimen (Source) Anatomical Location Collection Method / Collectio n Time Received Time / Laterality Volume Lubna Mcmillan M.D. PFT ORDERABLES Performing Organization Address City/State/ZIP Code Phon e Number MMODAL MMODAL NA documented in this encounter Visit Diagnoses Diagnosis Other Secondary Pulmonary Hypertension ( HCC) Shortness Of Breath documented in this encounter Additional Health Concerns Infection Onset Date Last Indicated Resolved Time COVID19 Pending 08/27/2020 08/27/2020 08/27/2020 12:09 PM CDT documented as of this encounter Care Teams Photographic Plate Maker Relationship Specialty Start Date End Date Ro Norton APRN, C.N.P., PCP - General Family Medicine D.N.P. [address] [phone] documented as of this encounter
--- OUTSIDE RECORDS SUMMARY | 2021-12-31 07:52 | XMS_ITS | Encounter Summary ---
:1970 Author Organization [facility] Address [address] [place] [address] Care Team Providers Name Role Phone Ro Norton APRN, C.N.P., D.N.P. Primary Care Provider Encounter Details Date Type Department Care Team Description 10/06/2020 Orders Only [facility] Pharm[facility] - [facility] Ro Norton APRN, [address] [facility] 1 C.N.P., [place] [address] [place] [address] [place] [phone] (Wo rk) Social History Tobacco [...] do you attend zoroastrianism or Never 2021 shinto services? Do you [...] on filedocumented in this encounter Care Teams Resort Keeper Relationship Specialty Start Date End Date Ro Norton APRN, C.N.P., PCP - General Family Medicine D.N.P. [address] [phone] documented as of this encounter
--- OUTSIDE RECORDS SUMMARY | 2021-12-31 07:52 | XMS_ITS | Encounter Summary ---
:1970 Author Organization [facility] Address [address] [place] [address] Care Team Providers Name Role Phone Ro Norton APRN, C.N.P., D.N.P. Primary Care Provider Encounter Details Date Type Department Care Team Description 08/27/2020 Clinical Communication Division of Pulmonary [facility] in [place] Faust M.D. [address] [place] [phone] Social History Tobacco Use Types Packs/Day Years [...] do you attend pentecostal or Never 2021 zoroastrianism services? Do you belong to any clubs [...] Visit Diagnoses Diagnosis Chronic Obstructive Pulmonary Disease (H CC) - Primary Other Secondary Pulmonary Hypertension ( HCC) Shortness Of Breath documented in this encounter Additional Health Concerns Infection Onset Date Last Indicated Resolved Time COVID19 Pending 08/27/2020 08/27/2020 08/27/2020 12:09 PM CDT documented as of this encounter Care Teams Food And Beverage Order Clerk Relationship Specialty Start Date End Date Ro Norton APRN, C.N.P., PCP - General Family Medicine D.N.P. [address] [phone] documented as of this encounter
--- OUTSIDE RECORDS SUMMARY | 2021-12-31 07:52 | XMS_ITS | Encounter Summary ---
:1970 Author Organization [facility] Address [address] [place] [address] Care Team Providers Name Role Phone Ro Norton APRN, C.N.P., D.N.P. Primary Care Provider Encounter Details Date Type Department Care Team Description 08/31/2020 Orders Only [facility] Pharm[facility] Lubna Hendricks M.D. [address] [facility] [address] [place] [address] [place] [phone] (Wo rk) Social History Tobacco Use Types [...] do you attend islam or Never 2021 synagogue services? Do you [...] on filedocumented in this encounter Care Teams Mule Driver Relationship Specialty Start Date End Date Ro Norton APRN, C.N.P., PCP - General Family Medicine D.N.P. [address] [phone] documented as of this encounter
--- OUTSIDE RECORDS SUMMARY | 2021-12-31 07:52 | XMS_ITS | Encounter Summary ---
:1970 Author Organization [facility] Address [address] [place] [address] Care Team Providers Name Role Phone Ro Norton APRN, C.N.P., D.N.P. Primary Care Provider Encounter Details Date Type Department Care Team Description 09/10/2020 Orders Only [facility] Pharm[facility] - Ro Servin APRN, [address] [facility] 1 C.N.P., D.N.P. KARTHIK LEE [phone] [place] [address] [place] [address] (Wo rk) Social History Tobacco [...] do you attend religion or Never 2021 sabianist services? Do you [...] place to sleep or slept in a [place] [facility] (including now)? Education Answer Date Recorded What is the highest level of school you have completed or 12 th grade 11/13/2019 the highest degree you have received? Sex Assigned at Date Recorded Female 10/14/2020 12:54 PM CDT documented as of this encounter Plan of Treatment Not on filedocumented as of this encounter Visit Diagnoses Not on filedocumented in this encounter Care Teams Chemical Production Engineer Relationship Specialty Start Date End Date Ro Norton APRN, C.N.P., PCP - General Family Medicine D.N.P. [address] [phone] documented as of this encounter
--- OUTSIDE RECORDS SUMMARY | 2021-12-31 07:52 | XMS_ITS | Encounter Summary ---
:1970 Author Organization [facility] Address [address] [place] [address] Care Team Providers Name Role Phone Ro Norton APRN, C.N.P., D.N.P. Primary Care Provider Reason for Visit Reason Comments COVID Inquiry Encounter Details Date Type Department Care Team Description 09/07/2020 Clinical Communication Central Appointment [facility] Office in [address] [id number] Social History Tobacco Use Types Packs/Day Years [...] do you attend voodoo or Never 2021 worship services? Do you belong to any clubs [...] on filedocumented in this encounter Care Teams Ecommerce Manager Relationship Specialty Start Date End Date Ro Norton APRN, C.N.P., PCP - General Family Medicine D.N.P. [address] [phone] documented as of this encounter
--- OUTSIDE RECORDS SUMMARY | 2021-12-31 07:52 | XMS_ITS | Encounter Summary ---
:1970 Author Organization [facility] Address [address] [place] [address] Care Team Providers Name Role Phone Ro Norton APRN, C.N.P., D.N.P. Primary Care Provider Reason for Visit Auth/Cert Specialty Diagnoses / Procedures Referred By Contact Refer red To Contact Diagnoses Other Secondary Pulmonary Hypertension (HCC) Other Secondary Pulmonary Hypertension (HCC) [I27.29] Procedures HEART CATHETERIZATION - RIGHT NITRIC OXIDE STUDY FULL SATURATION RUN Referral ID Status Reason Start Date Expiration Date Visits Requ ested Visits Authorized [id number] 1 1 Encounter Details Date Type Department Care Team Description 09/29/2020 Surgery [facility] of [place] HEART CATH ETERIZATION - Cardiovascular Diseases Michael [facility] in [facility] costa [address] [facility] [address] [place] [address] [phone] Social History Tobacco Use Types Packs/Day Years [...] or relatives? How often do you attend rastafari or Never 2021 restorationism services? Do you belong to any clubs or No 02/25/2021 organizations such as rastafari groups, unions, fraternal or athletic groups, or [...] Sign Reading Time Taken Comments Blood Pressure 133/86 09/29/2020 12:15 PM CDT Pulse 82 09/29/2020 12:10 PM CDT Temperature 36.5 ??C (97.7 ??F) 09/29/2020 10:43 AM CDT Respiratory Rate 7 09/29/2020 11:45 AM CDT Oxygen Saturation 93% 09/29/2020 12:10 PM CDT Inhaled Oxygen Concentration - - Weight 65.7 kg (144 lb 13.5 oz) 09/29/2020 10:43 AM CDT Height 179.7 cm (5' 10.75) 09/29/2020 10:43 AM CDT Body Mass Index 20.35 09/29/2020 10:43 AM CDT documented in this encounter Discharge Instructions AttachmentsThe following attachments cannot be sent through Care Everywhere.Care Following Your Catheter Procedure ([place] Islander)documented in this encounter Medications at Time of Discharge Medication Sig Dispensed Refills Start Date End Date ascorbic acid, vitamin Take 100 mg by mouth 0 C, (VITAMIN C) 100 mg daily. tablet multivitamin capsule Take 1 capsule by 0 mouth daily. zinc sulfate (ZINCATE) Take 220 mg by mouth 0 220 (50) mg capsule daily. albuterol 90 Inhale 2 puffs 4 1 Inhaler 2 06/19/20202021 mcg/actuation inhaler (four) times a day. furosemide (LASIX) 20 Take 1 tablet (20 mg 30 tablet 3 06/2001/18/2021 mg tablet total) by mouth daily. tiotropium (Spiriva Inhale 1 capsule (18 90 capsule 3 202012/17/2020 with HandiHaler) 18 mcg mcg total) daily. inhalation capsule acetaminophen (TYLENOL) Take 2 tablets (1,000 0 0 10/27/2019 12/17/2020 500 mg tablet mg total) by mouth every 6 (six) hours as needed for pain. 1st level for pain control ipratropium-albuteroL Take 3 mL by 270 mL [...] Take 2 tablets (0.25 60 tablet 2 04/10/202011/24/2020 0.125 mg tablet mg total) by mouth at bedtime. documented as of this encounter Nursing Notes Fabi Burkett R.N. - 09/29/2020 12:40 PM CDT The patient???s right IJ site/dressing is dry and intact. Vital signs are stable. No complaints of chest pain, no difficulty swallowing. No hematoma or bleeding present. No change in neuro status from prior to procedure. Ambulated without difficulty. Dismissal instructions were reviewed in detail as per [id number], with patient and family; they verbalized understanding. Follow up appointment is arranged. Patient was dismissed when discharge criteria was met, accompanied by daughter. All questions answered. documented in this encounter Plan of Treatment Not on filedocumented as of this encounter Procedures Procedure Name Priority Date/Time Associated Diagnosis Comme nts CARDIAC CATHETERIZATION Routine 09/29/2020 11:44 Other Seconda ry Results for this AM CDT Pulmonary procedure are i n Hypertension (HCC) the resul ts section. CARDIAC CATHETERIZATION Routine 09/29/2020 11:44 Other Seconda ry Results for this AM CDT Pulmonary procedure are i n Hypertension (HCC) the resul ts section. documented in this encounter Results RIGHT HEART CATHETERIZATION, NITRIC OXIDE STUDY (09/29/2020 11:44 AM CDT) Anatomical Region Laterality Modality X-Ray Angiography Specimen (Source) Anatomical Collection Method Collection Time Re ceived Time Location / / Volume Laterality 09/29/2020 11:03 AM CDT Narrative 09/29/2020 4:31 PM CDT For the complete report, see the Order-L evel Documents. PROCEDURE TYPES 1. ??HEART CATHETERIZATION - RIGHT 2. ??NITRIC OXIDE STUDY FINAL DIAGNOSIS 1. ??Severe pulmonary hypertension PRE-PROCEDURE DIAGNOSIS 1. ??Other Secondary Pulmonary Hypertens ion (HCC) HEMODYNAMICS SUMMARY Normal RA pressure. Severely elevated right ventricular syst olic pressure. ??Mildly elevated right ventricular end-diastolic pressure. ?? Severely elevated pulmonary artery press ure. Normal pulmonary wedge pressure. Reduced cardiac output. With inhaled nitric oxide the PA pressur e decreased and the CO increased. RADIATION DOSE DATA Procedure cumulative skin dose (mGy): 16 .75 Procedure cumulative dose area product ( Gy-cm2): 1.50 Fluoro Time (Min): 5.26 For the complete report, see the Order-L evel Documents. Lubna Mcmillan M.D. CV CARDIAC CATH PROCEDURES documented in this encounter Visit Diagnoses Diagnosis Other Secondary Pulmonary Hypertension ( HCC) - Primary Other Secondary Pulmonary Hypertension ( HCC) documented in this encounter Admitting Diagnoses Diagnosis Other Secondary Pulmonary Hypertension ( HCC) documented in this encounter Administered Medications Inactive Administered Medications - up to 3 most recent administrations Medication Order MAR Action Action Date Dose Rate Site fentaNYL injection 25 mcg (SUBLIMAZE) 25 mcg, intravenous, Every 2 min PRN, mo derate pain or score 4-6 of 10, severe pain or score 7-10 of 10, Administer over 1 m inute immediately prior to the procedure. May repeat every 2 minutes to a maximum of 200 mcg, until pain score of 3 or less, or until the patient meets the pain comf ort goal. Do not give if respiratory rate is less than 8 breaths/minute, Starting on Mon09/29/20 at 1106, Intraprocedure (CV) flumazeniL injection 0.2 mg (ROMAZICON) 0.2 mg, intravenous, Once as needed, rev ersal, Starting on Mon09/29/20 at 1106, For 1 dose, Intraprocedure (CV), Administer once if patient has a RASS score of -4, -5 and has a respiratory rate less than 8 breaths/minute. lidocaine 10 mg/mL (1 %) injection Given 09/29/2020 11:05 AM CDT 5 mL Right Neck (XYLOCAINE) As needed, Starting on Mon09/29/20 at 1105, Intraprocedure (CV) midazolam (PF) injection 0.25 mg (VERSED ) 0.25 mg, intravenous, Every 2 min PRN, s edation, RASS -2, Starting on Mon09/29/20 at 1106, Intraprocedure (CV), May repeat every 2 minutes to a maximum of 5 mg. Do not give if respiratory rate is less than 8 breaths/mi nute. midazolam (PF) injection 0.5 mg (VERSED) Given 09/29/2020 11:07 AM CDT 0.5 mg 0.5 mg, intravenous, Once as needed, sedation, Starting on Mon09/29/20 at 1106, For 1 dose, Intraprocedure (CV) midazolam (PF) injection 0.5 mg (VERSED) 0.5 mg, intravenous, Every 2 min PRN, se dation, RASS -1, Starting on Mon09/29/20 at 1106, Intraprocedure (CV), May repeat ev jami 2 minutes for a maximum of 5 mg. Do not give if respiratory rate is less than 8 breaths/minute . midazolam (PF) injection 1 mg (VERSED) 1 mg, intravenous, Every 2 min PRN, solo tion, RASS 0, Starting on Mon09/29/20 at 1106, Intraprocedure (CV), May repeat ev jami 2 minutes for a maximum of 5 mg. Do not give if respiratory rate is less than 8 breaths/minute . NaCl 0.9% infusion 20 mL/hr, intravenous, Once as needed, t o keep vein open, Starting on Mon09/29/20 at 1106, For 1 dose, Intraprocedure (CV) naloxone injection 0.2 mg (NARCAN) 0.2 mg, intravenous, Once as needed, respiratory depre ssion, Starting on Mon09/29/20 at 1106, For 1 dose, Intraproced ure (CV), Administer once if patient has a RASS score of -4, -5 and has a respiratory rate less t feliciano 8 breaths/minute. sodium chloride 0.9 % injection 10 mL 10 mL, intravenous, As needed, line care, Starting on Mon09/29/20 at 1106, Intraprocedure (CV), Peripheral Intraven ous Catheter and Rapid Infusion Catheter, prior to blood sampling, post blood transfusion or pos t blood sampling sodium chloride 0.9 % injection 10 mL 10 mL, intravenous, As needed, line care, Starting on Mon09/29/20 at 1047, Preprocedure (CV), Peripheral Intravenous Catheter and Rapid Infusion Catheter, prior to blood sampling, post blood transfusion or pos t blood sampling sodium chloride 0.9 % injection 3 mL 3 mL, intravenous, As needed, line care, Starting on T ue 09/29/20 at 1106, Intraprocedure (CV), Prior to and following infusion a nd between multiple consecutive infusions: sodium chloride 0.9 % injection sodium chloride 0.9 % injection 3 mL 3 mL, intravenous, Every 12 hours scheduled, First dos e on Mon09/29/20 at 2100, Intraprocedure (CV), Peripheral Intraven ous Catheter and Rapid Infusion Catheter, when no infusion to maintain patency sodium chloride 0.9 % injection 3 mL 3 mL, intravenous, As needed, line care, Starting on T ue 09/29/20 at 1047, Preprocedure (CV), Prior to and followin g infusion and between multiple consecutive infusions: sodium chloride 0.9 % injection sodium chloride 0.9 % injection 3 mL 3 mL, intravenous, Every 12 hours scheduled, First dos e on Mon09/29/20 at 2100, Preprocedure (CV), Peripheral Intravenous Catheter and Rapid Infusion Catheter, when no infusion to maintain patency documented in this encounter Active and Recently Administered Medications Times are shown in CDT. Scheduled Medication Order 09/27/2020 09/28/2020 09/29/2020 sodium chloride 0.9 % injection 3 mL 3 mL, intravenous, Every 12 hours schedu led, First dose on Mon09/29/20 at 2100, Intraprocedure (CV), Peripheral Intravenous Catheter and Rapid Infusion Catheter, when no infusion to maintain patency sodium chloride 0.9 % injection 3 mL 3 mL, intravenous, Every 12 hours schedu led, First dose on Mon09/29/20 at 2100, Preprocedure (CV), Peripheral Intravenous Catheter and Rapid Infusion Catheter, when no infusion to maintain patency PRN Medication Order 09/27/2020 09/28/2020 09/29/2020 fentaNYL injection 25 mcg (SUBLIMAZE) 25 mcg, intravenous, Every 2 min PRN, mo derate pain or score 4-6 of 10, severe pain or score 7-10 of 10, Administer over 1 minute immediately prior to the procedure. May repeat every 2 minutes to a maxi mum of 200 mcg, until pain score of 3 or less, or until the patient meets the pain comfort goal. Do not give if respiratory rate is less than 8 breaths/minute, Starting on Mon09/29/20 at 1106, Intraprocedure (CV) flumazeniL injection 0.2 mg (ROMAZICON) 0.2 mg, intravenous, Once as needed, rev ersal, Starting on Mon09/29/20 at 1106, For 1 dose, Intraprocedure (CV), Administer once if patient has a RASS score of -4, -5 and has a respiratory rate less than 8 breaths/minute. lidocaine 10 mg/mL (1 %) injection (XYLOCAINE) (CANCELED) 1105 (Given - Provider: Nupur Stewart, B.Ch., B.A.O.) As needed, Starting on Mon09/29/20 at 1105, Intraprocedure (CV) midazolam (PF) injection 0.25 mg (VERSED) 0.25 mg, intravenous, Every 2 min PRN, s edation, RASS -2, Starting on Mon09/29/20 at 1106, Intraprocedure (CV), May repeat every 2 minutes to a maximum of 5 mg. Do not give if respiratory rate is less than 8 breaths/minute. midazolam (PF) injection 0.5 mg (VERSED) (COMPLETED) 1107 (Given - Provider: Charlie Mcmillan R.N.) 0.5 mg, intravenous, Once as needed, sed ation, Starting on Mon09/29/20 at 1106, For 1 dose, Intraprocedure (CV) midazolam (PF) injection 0.5 mg (VERSED) 0.5 mg, intravenous, Every 2 min PRN, se dation, RASS -1, Starting on Mon09/29/20 at 1106, Intraprocedure (CV), May repeat every 2 minutes for a maximum of 5 mg. Do not give if respiratory rate is less than 8 breaths/minute. midazolam (PF) injection 1 mg (VERSED) 1 mg, intravenous, Every 2 min PRN, solo tion, RASS 0, Starting on Mon09/29/20 at 1106, Intraprocedure (CV), May repeat every 2 minutes for a maximum of 5 mg. Do not give if respiratory rate is less than 8 breaths/minute. NaCl 0.9% infusion 20 mL/hr, intravenous, Once as needed, t o keep vein open, Starting on Mon09/29/20 at 1106, For 1 dose, Intraprocedure (CV) naloxone injection 0.2 mg (NARCAN) 0.2 mg, intravenous, Once as needed, res piratory depression, Starting on Mon09/29/20 at 1106, For 1 dose, Intraprocedure (CV), Administer once if patient has a RASS score of -4, -5 and has a respiratory rate less than 8 breaths/minute. sodium chloride 0.9 % injection 10 mL 10 mL, intravenous, As needed, line care , Starting on Mon09/29/20 at 1106, Intraprocedure (CV), Peripheral Intravenous Catheter and Rapid Infusion Catheter, prior to blood sampling, post blood transfusion or post blood sampling sodium chloride 0.9 % injection 10 mL 10 mL, intravenous, As needed, line care , Starting on Mon09/29/20 at 1047, Preprocedure (CV), Peripheral Intravenous Catheter and Rapid Infusion Catheter, prior to blood sampling, post blood transfusion or post blood sampling sodium chloride 0.9 % injection 3 mL 3 mL, intravenous, As needed, line care, Starting on Mon09/29/20 at 1106, Intraprocedure (CV), Prior to and following infusion and between multiple consecutive infusions: sodium chloride 0.9 % injection sodium chloride 0.9 % injection 3 mL 3 mL, intravenous, As needed, line care, Starting on Mon09/29/20 at 1047, Preprocedure (CV), Prior to and following infusion and between multiple consecutive infusions: sodium chloride 0.9 % injection documented in this encounter Care Teams Graphic Design Assistant Relationship Specialty Start Date End Date Ro Norton APRN, C.N.P., PCP - General Family Medicine D.N.P. [address] [address] documented as of this encounter
--- OUTSIDE RECORDS SUMMARY | 2021-12-31 07:52 | XMS_ITS | Encounter Summary ---
:1970 Author Organization [facility] Address [address] [place] [address] Care Team Providers Name Role Phone Ro Norton APRN C.N.P., D.N.P. Primary Care Provider Reason for Referral Outpatient (Routine) - Closed Specialty Diagnoses / Procedures Referred By Contact Refer red To Contact Cardiovascular Disease Lubna Mcmillan [address] [facility] M.D. [address] [place] [address] Referral ID Status Reason Start Date Expiration Date Visits Requ ested Visits Authorized [id number] Closed 09/23/2020 09/23/2021 1 1 Encounter Details Date Type Department Care Team Description 09/23/2020 Orders Only Department of Lubna Mcmillan Cardiovascular Medicine Michael Ansari Pulmonary Hypertension in [facility] cost[place] [address] [facility] (HCC) (Primary Dx) [address] [place] [address] [phone] Social History Tobacco Use Types Packs/Day Years [...] do you attend hindu or Never 2021 baptist services? Do you [...] place to sleep or slept in a prison (including now)? Education Answer Date Recorded What is the highest level of school you have completed or 12 th grade 11/13/2019 the highest degree you have received? Sex Assigned at Date Recorded Female 10/14/2020 12:54 PM CDT documented as of this encounter Plan of Treatment Scheduled Referrals Name Type Priority Associated Order Schedule Diagnoses Cardiovascular Disease Outpatient Referral Routine Expected: nurse visit (clinic) 021 (Approximate), Expires: 09/24/2023 documented as of this encounter Visit Diagnoses Diagnosis Other Secondary Pulmonary Hypertension ( HCC) - Primary documented in this encounter Care Teams Valve Steamer Relationship Specialty Start Date End Date Ro Norton APRN, C.N.P., PCP - General Family Medicine D.N.P. [address] [address] documented as of this encounter
--- OUTSIDE RECORDS SUMMARY | 2021-12-31 07:52 | XMS_ITS | Encounter Summary ---
:1970 Author Organization [facility] Address [address] [place] [address] Care Team Providers Name Role Phone Ro [...] Expiration Date Visits Requ ested Visits Authorized [id number] 1 1 Encounter Details Date Type Department Care Team Description 09/29/2020 Hospital Encounter Division of Eusebia Mcmillan [facility] Cardiovascular Lubna Ansari M.D. Pulmonary Diseases in [place] [address] Hypertension (HCC) [place], [place] [address] [address] [place], [place] [phone] [address] (Work) [phone] Social History Tobacco Use Types Packs/Day Years [...] do you attend sabianism or Never 2021 advent services? Do you belong to any clubs or No 02/25/2021 organizations such as sabianism groups, unions, fraternal or athletic groups, or [...] through Care Everywhere.Care Following Your Catheter Procedure ([place]icaraguan)documented in this encounter Medications at Time of [...] instructions were reviewed in detail as per [id number], with patient and family; they verbalized understanding. [...] a respiratory rate less than 8 breaths/minute. midazolam (PF) injection 0.25 mg (VERSED ) 0.25 mg, intravenous, Every 2 min PRN, s edation, RASS -2, Starting on Mon09/29/20 at 1106, Intraprocedure (CV), May repeat every 2 minutes to a maximum of 5 mg. Do not give if respiratory rate is less than 8 breaths/mi nute. midazolam (PF) injection 0.5 mg (VERSED) 0.5 [...] intravenous, As needed, line care, Starting on 09/29/20 at 1106, Intraprocedure (CV), Prior to [...] intravenous, As needed, line care, Starting on 09/29/20 at 1047, Preprocedure (CV), Prior to [...] (CANCELED) 1105 (Given - Provider: Nupur Stewart, B.Juanita., B.A.O.) As needed, Starting on Mon09/29/20 at [...] injection documented in this encounter Care Teams Wax Ball Molder Relationship Specialty Start Date End Date Ro Norton APRN, C.N.P., PCP - General Family Medicine D.N.P. [address] [address] documented as of this encounter
--- OUTSIDE RECORDS SUMMARY | 2021-12-31 07:52 | XMS_ITS | Encounter Summary ---
:1970 Author Organization [facility] Address [address] [place] [address] Care Team Providers Name Role Phone Ro Norton APRN, C.N.P., D.N.P. Primary Care Provider Encounter Details Date Type Department Care Team Description 09/14/2020 Orders Only Pharmacy Prior Auth [facility] Manuel [phone] Social History Tobacco Use Types Packs/Day Years [...] do you attend gnosticism or Never 2021 buddhist services? Do you [...] documented as of this encounter Care Teams Ux Research Associate Relationship Specialty Start Date End Date Ro Norton APRN, C.N.P., PCP - General Family Medicine D.N.P. [address] [phone] documented as of this encounter
--- OUTSIDE RECORDS SUMMARY | 2021-12-31 07:52 | XMS_ITS | Encounter Summary ---
:1970 Author Organization [facility] Address [address] [place] [address] Care Team Providers Name Role Phone Ro Norton APRN, C.N.P., D.N.P. 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 Do you belong to any clubs [...] place to sleep or slept in a [facility] (including now)? Education Answer Date Recorded What is the highest level of school you have completed or 12 th grade 11/13/2019 the highest degree you have received? Sex Assigned at Date Recorded Female 10/14/2020 12:54 PM CDT documented as of this encounter Plan of Treatment Not on filedocumented as of this encounter Visit Diagnoses Diagnosis Other Secondary Pulmonary Hypertension ( HCC) - Primary Shortness Of Breath documented in this encounter Care Teams Hospital Pharmacy Technician Relationship Specialty Start Date End Date Ro Norton APRN, C.N.P., PCP - General Family Medicine D.N.P. [address] [address] documented as of this encounter
--- OUTSIDE RECORDS SUMMARY | 2021-12-31 07:52 | XMS_ITS | Encounter Summary ---
:[address] [facility] Address [address] [place] [address] Care Team Providers Name Role Phone Ro Norton APRN, C.N.P., D.N.P. Primary Care Provider Reason for Visit Appointment Request (Routine) - Closed Specialty Diagnoses / Procedures Referred By Contact Refer red To Contact Cardiovascular Disease Referral ID Status Reason Start Date Expiration Date Visits Requ ested Visits Authorized [id number] Closed 09/29/2020 09/29/2021 1 1 Encounter Details Date Type Department Care Team Description 09/29/2020 Virtual Visit Department of Lubna Mcmillan Cardiovascular Medicine Michael Ansari Pulmonary in [facility] [address] [facility] Hypertension (HCC) [address] [place] [phone] [phone] Social History Tobacco Use Types Packs/Day Years [...] or relatives? How often do you attend methodist or Never 2021 advent services? Do you belong to any clubs or No 02/25/2021 organizations such as methodist groups, unions, fraternal or athletic groups, or [...] documented as of this encounter Progress Notes Lubna Mcmillan M.D. - 09/29/2020 3:40 PM CDT Patient cancelled her follow up appointment to review the results of her right heart catheterization. I tried calling patient to review the results and it went straight to voicemail. I left a message asking her to return my call. Addendum 10/01/20: I have called patient every day and left voicemails for her to call back with no response. If she calls, I should be paged to talk to her about starting therapy for PAH. Addendum 10/02/20: I called Ms. Schulz and was able to speak with her regarding the results of her right heart catheterization which demonstrated severe precapillary PH RA 6, PCWP 10, CO 2.6, PVR 18 MONGE. Based on her hemodynamics, I would consider parenteral therapy but this will be challenging as it is d ifficult to get in touch with her for titrations and symptom assessment. Her cardiac output is quitelow but I wonder how accurate it is since she has no signs of right heart failure on exam and since RA pressure is also normal. I will start tadalafil and opsumit and we will reassess in 3 months. 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 [address] [phone] documented as of this encounter
--- OUTSIDE RECORDS SUMMARY | 2021-12-31 07:52 | XMS_ITS | Encounter Summary ---
:1970 Author Organization [facility] Address [address] [place] [address] Care Team Providers Name Role Phone Ro Norton APRN C.N.P., D.N.P. Primary Care Provider Reason for Referral Outpatient (Routine) - Closed Specialty Diagnoses / Procedures Referred By Contact Refer red To Contact Diagnoses Other Secondary Pulmonary Hypertension (HCC) Shortness Of Breath Lubna Mcmillan M.D. [facility] Procedures Echo Transthoracic (TTE) [address] [place] [address] Referral ID Status Reason Start Date Expiration Date Visits Requ ested Visits Authorized [id number] Closed 07/01/2020 07/01/2021 1 1 Reason for Visit Outpatient (Routine) - Closed Specialty Diagnoses / Procedures Referred By Contact Refer red To Contact Diagnoses Other Secondary Pulmonary Hypertension (HCC) Shortness Of Breath Lubna Mcmillan M.D. [facility] Procedures Echo Transthoracic (TTE) [address] [place] [address] Referral ID Status Reason Start Date Expiration Date Visits Requ ested Visits Authorized [id number] Closed 07/01/2020 07/01/2021 1 1 Encounter Details Date Type Department Care Team Description 08/27/2020 Hospital Encounter Department of Dub, Eusebia Se condary Pulmonary Hypertension (HCC); Cardiovascular Lubna Ansari M.D. Shortness Of Breath Diseases in [place], [address] [place], [place] [address] [address] [place], [place] [phone] (Work) [phone] Social History Tobacco Use Types Packs/Day Years [...] or relatives? How often do you attend episcopalian or Never 2021 mosque services? Do you belong to any clubs or No 02/25/2021 organizations such as episcopalian groups, unions, fraternal or athletic groups, or [...] capsule daily. acetaminophen (TYLENOL) Take 2 tablets 0 10/27/19 20 12/17/2020 500 mg tablet (1,000 mg total) by mouth every 6 (six) hours as needed for pain. 1st level for pain control albuterol 90 Inhale 2 puffs 4 1 Inhaler 2 06/19/20202021 mcg/actuation inhaler (four) times a day. azithromycin (ZITHROMAX) 500 mg on day 1, 6 tablet 0 06/1908/31/2020 250 mg tablet followed by 250 mg once daily for 4 days. docosahexaenoic acid-epa Take 1,000 mg by 0 09/29/2020 120-180 mg capsule mouth daily. furosemide (LASIX) 20 mg Take 1 tablet (20 mg 30 tablet 3 0 07/01/2020 01/18/2021 tablet total) by mouth daily. ipratropium-albuteroL Take 3 mL by 270 mL 3 05/07/2019 0 03/09/2021 (DUO-NEB) 0.5-2.5 mg/3 nebulization 4 mL nebulizer solution (four) times a day as needed for wheezing or shortness of breath. nicotine (NICOTROL) 10 Puff on dispenser 168 each 0 202012/17/2020 mg inhaler for several minutes each hour as needed for nicotine withdrawal symptoms. Change cartridge after two to four hours. pramipexole (MIRAPEX) Take 2 tablets (0.25 60 tablet 2 04/0 10/202011/24/2020 0.125 mg tablet mg total) by mouth at bedtime. tiotropium (Spiriva with Inhale 1 capsule (18 90 capsule 3 0 06/22/2020 12/17/2020 HandiHaler) 18 mcg mcg total) daily. inhalation capsule documented as of this encounter Plan of Treatment Not on filedocumented as of this encounter Procedures Procedure Name Priority Date/Time Associated Diagnosis Comme nts (TTE) 2D ECHO Routine 08/27/2020 4:25 PM Other Secondary Resul ts for this DOPPLER COLOR AND CDT Pulmonary procedure are in CONTRAST Hypertension (HC C) the results Shortness Of Breath section. documented in this encounter Results (TTE) 2D ECHO DOPPLER COLOR AND CONTRAST (08/27/2020 4:25 PM CDT) [facility] Method Time Signature Ejection Fraction 56 MC CV EIMS LV Mass Index 91 MC CV EIMS LV End-Diastolic 46 MC CV EIMS Diameter LV End-Systolic 32 MC CV EIMS Diameter MV E Velocity 0.3 MC CV EIMS MV A Velocity 0.6 MC CV EIMS MV E/A 0.50 MC CV EIMS MV e' Velocity 0.03 MC CV EIMS Medial MV e' Velocity 0.04 MC CV EIMS Lateral MV E/e' Medial 10.0 MC CV EIMS MV E/e' Lateral 7.5 MC CV EIMS Left ventricular 31 MC CV EIMS stroke volume index Cardiac Output 3.76 MC CV EIMS Cardiac Index 2.02 MC CV EIMS LV Interventricular 11 MC CV EIMS Septal Wall Thickness LV Posterior Wall 10 MC CV EIMS Thickness LV Relative Wall 43 MC CV EIMS Thickness RV 4-Chamber Basal 57 MC CV EIMS Diameter RV 4-Chamber Mid 50 MC CV EIMS Diameter RV 4-Chamber Length 90 MC CV EIMS TAPSE 12 MC CV EIMS Tricuspid Annular S? 0.07 MC CV EIMS RV Free Wall Strain -9 MC CV EIMS TR Vmax 4.30 MC CV EIMS RA Pressure 10 MC CV EIMS RV Systolic Pressure 84 MC CV EIM S Estimated diastolic 29 MC CV EIMS pulmonary artery pressure TR Vmax/RVOT TVI 0.44 MC CV EIMS Anatomical Region Laterality Modality Echocardiography Specimen (Source) Anatomical Collection Method Collection Time Re ceived Time Location / / Volume Laterality 08/27/2020 2:32 PM CDT Impressions 08/27/2020 4:20 PM CDT Echocardiogram performed per follow-up pulmonary hypertension protocol. ??Last full echocardiogram performed 10/23/2019. ??A gitated saline contrast administered. ??Findings consistent with pulmonary hypertension. ??Status post patent ductus arteriosus surgical ligation (elsewhere, date unknown). ??LEFT VENTRI EVER: ??Normal left ventricular chamber size. ??Abnormal left ventricular geometry with concentri c remodeling (increased wall thickness to cavity ratio). ??Calculated 2-D linear left cata tricular ejection fraction 56 %. ??D- shaped left ventricle. ??Paradoxical ventricular sep tommy motion. ??No regional wall motion abnormalities. Indeterminate left ventricular filling p ressure. ??RIGHT VENTRICLE: ??Severely enlarged right ventricular chamber size. ??Moderate-sev erely reduced right ventricular systolic function. Prominent right ventricular moderator ba nd. ??Averaged right ventricular free wall longitudinal peak systolic strain is -9 % (normal = m ore negative than -24%). ??Estimated right ventricular systolic pressure 84 mmHg assuming right atrial pressure of 10 mmHg. ??ATRIA: ??Enlarged left atrial size by visual estimate. ??Severe ly enlarged right atrial size. ??CARDIAC VALVES: Trileaflet aortic valve. ??Normal aortic valve. ??Trivial aortic valve regurgitation. ??Mildly thickened mitral valve. ??Mild mitral va lve regurgitation. ??Normal pulmonary valve. ??Severe pulmonary artery dilatation. ??Normal pu lmonary valve systolic velocities. ??Mild-moderate pulmonary valve regurgitation. ??Moderat susana thickened tricuspid valve. ??Tricuspid annulus dilatation. ??Mild-moderate tricuspid va lve regurgitation. ??OTHER ECHO FINDINGS: ??Borderline enlarged inferior vena cava size with no rmal inspiratory collapse (>50%). ??Normal abdominal aorta Doppler flow pattern. ??No atrial level shunt by color flow imaging and agitated saline contrast injection. ??No intracardiac ma ss or thrombus, but the left atrial appendage cannot be visualized adequately with transthoracic echo to exclude thrombus in this location. ??No pericardial effusion. For the complete report, see the [employer] Documents. Narrative 08/27/2020 4:20 PM CDT For the complete report, see the [employer] Documents. Final Impressions 1. Severely enlarged right ventricular c hamber size, moderate-severely reduced systolic function, estimated right ventricular sy stolic pressure 84 mmHg assuming right atrial pressure of 10 mmHg. 2. Normal left ventricular chamber size, no regional wall motion abnormalities, calculated 2-D linear ejection fraction 56 %. 3. D-shaped left ventricle. 4. Abnormal left ventricular geometry wi th concentric remodeling (increased wall thickness to cavity ratio), indeterminate filling pre ssure. 5. Mild-moderate tricuspid valve regurgi tation. 6. Mild-moderate pulmonary valve regurgi tation. 7. No pericardial effusion. 8. Agitated saline contrast administered . 9. No vecxc-zq-hjoi shunt at atrial leve l at rest or with Valsalva release. 10. No intrapulmonary shunt. Procedure Note Reji Chan M.D., M.P.H. - 2020 For the complete report, see the [employer] Documents. Final Impressions 1. Severely enlarged right ventricular c hamber size, moderate-severely reduced systolic function, estimated right ventricular sy stolic pressure 84 mmHg assuming right atrial pressure of 10 mmHg. 2. Normal left ventricular chamber size, no regional wall motion abnormalities, calculated 2-D linear ejection fraction 56 %. 3. D-shaped left ventricle. 4. Abnormal left ventricular geometry wi th concentric remodeling (increased wall thickness to cavity ratio), indeterminate filling pre ssure. 5. Mild-moderate tricuspid valve regurgi tation. 6. Mild-moderate pulmonary valve regurgi tation. 7. No pericardial effusion. 8. Agitated saline contrast administered . 9. No kbmgq-qi-nggj shunt at atrial leve l at rest or with Valsalva release. 10. No intrapulmonary shunt. Findings Echocardiogram performed per follow-up p ulmonary hypertension protocol. Last full echocardiogram performed 10/23/2019. Lashawn tated saline contrast administered. Findings consistent with pulmonary hypertension. Status post patent ductus arteriosus surgical ligation (elsewhere, date unknown). LEFT VENTRICL E: Normal left ventricular chamber size. Abnormal left ventricular geometry with concentri c remodeling (increased wall thickness to cavity ratio). Calculated 2-D linear left ventr icular ejection fraction 56 %. D-shaped left ventricle. Paradoxical ventricular septa l motion. No regional wall motion abnormalities. Indeterminate left ventricular filling p ressure. RIGHT VENTRICLE: Severely enlarged right ventricular chamber size. Moderate-sever susana reduced right ventricular systolic function. Prominent right ventricular moderator ba nd. Averaged right ventricular free wall longitudinal peak systolic strain is -9 % (normal = m ore negative than -24%). Estimated right ventricular systolic pressure 84 mmHg assuming right atrial pressure of 10 mmHg. ATRIA: Enlarged left atrial size by visual estimate. Severely enlarged right atrial size. CARDIAC VALVES: Trileaflet aortic valve. Normal aortic v alve. Trivial aortic valve regurgitation. Mildly thickened mitral valve. Mild mitral valv e regurgitation. Normal pulmonary valve. Severe pulmonary artery dilatation. Normal pulm onary valve systolic velocities. Mild-moderate pulmonary valve regurgitation. Moderatel y thickened tricuspid valve. Tricuspid annulus dilatation. Mild-moderate tricuspid valv e regurgitation. OTHER ECHO FINDINGS: Borderline enlarged inferior vena cava size with no rmal inspiratory collapse (>50%). Normal abdominal aorta Doppler flow pattern. No atrial le heather shunt by color flow imaging and agitated saline contrast injection. No intracardiac mass or thrombus, but the left atrial appendage cannot be visualized adequately with transthoracic echo to exclude thrombus in this location. No pericardial effusion. For the complete report, see the [employer] Documents. Lubna Mcmillan M.D. CV ECHO PROCEDURES documented in this encounter Visit Diagnoses Diagnosis Other Secondary Pulmonary Hypertension ( HCC) Shortness Of Breath documented in this encounter Administered Medications Inactive Administered Medications - up to 3 most recent administrations Medication Order MAR Action Action Date Dose Rate Site NaCl 0.9% bacteriostatic 0.9 % Given 08/27/2020 4:15 PM CDT 30 m L injection 30 mL 30 mL, intravenous, Once in imaging, for agitated saline (bubble) studies, Starting on Tessie 08/27/20 at 1553, For 1 dose, See protocol documented in this encounter Care Teams Case Assembler Relationship Specialty Start Date End Date Ro Norton APRN, C.N.P., PCP - General Family Medicine D.N.P. [address] [phone] documented as of this encounter
--- OUTSIDE RECORDS SUMMARY | 2021-12-31 07:52 | XMS_ITS | Encounter Summary ---
:1970 Author Organization [facility] Address [address] [place] [address] Care Team Providers Name Role Phone Ro Norton APRN, C.N.P., D.N.P. Primary Care Provider Encounter Details Date Type Department Care Team Description 09/02/2020 Orders Only Pharmacy Prior Auth RO Ro Norton APRN, C.N.P., D.N.P. [address] [place] [phone] (Wo rk) Social History Tobacco Use [...] or relatives? How often do you attend yarsani or Never 2021 mandaeism services? Do you belong to any clubs or No 02/25/2021 organizations such as yarsani groups, unions, fraternal or athletic groups, or [...] on filedocumented in this encounter Care Teams Power Regulator Relationship Specialty Start Date End Date Ro Norton APRN, C.N.P., PCP - General Family Medicine D.N.P. [address] [phone] documented as of this encounter
--- OUTSIDE RECORDS SUMMARY | 2021-12-31 07:52 | XMS_ITS | Encounter Summary ---
:1970 Author Organization [facility] Address [address] [place] [address] Care Team Providers Name Role Phone Ro Norton APRN, C.N.P., D.N.P. Primary Care Provider Reason for Visit Reason Comments Patient Education Outpatient (Routine) - Closed Specialty Diagnoses / Procedures Referred By Contact Refer red To Contact Cardiovascular Disease Lubna Mcmillan [place] [address] [place] M.D. [address] [place] [phone] Referral ID Status Reason Start Date Expiration Date Visits Requ ested Visits Authorized [id number] Closed 07/01/2020 07/01/2021 1 1 Encounter Details Date Type Department Care Team Description 08/21/2020 Virtual Visit Department of Lubna Mcmillan M.D. [address] [place] [phone] Shortness Of Breath Cardiovascular Medicine Mikayla Castañeda, RShikha in [facility] [address] [place] [phone] Social History Tobacco Use Types Packs/Day Years [...] do you attend amish or Never 2021 sabianism services? Do you belong to any clubs [...] as of this encounter Patient Instructions Patient InstructionsMikayla Kinsey R.N. - 08/21/2020 2:00 PM CDT PRE-PROCEDURE EDUCATION PROVIDED VIA TELEPHONE CALL. THE PATIENT WAS NOT PHYSICALLY PRESENT FOR THISAPPOINTMENT Pre-procedure instructions include: 1. Basic information about [...] pm. 5. Stay within 100 miles of [place] overnight 6. Take all medications as instructed 7. Call the [facility] Service Line ([phone]) the evening before the procedure between the hours of 7 pm and midnight to learn what time and where to report to the hospital the next day Vitamins/Supplements Instructions: Do not take vitamins or supplements the morning of the procedure. documented in this encounter Progress Notes Mikayla Kinsey R.N. - 08/21/2020 2:00 PM CDT SUBJECTIVE REASON FOR PHONE CALL Pre-procedure education Information Discussed Reviewed pre-procedure instructions with patient/family as listed in ???Preparing For Your Cardiac Catheterization or Heart Rhythm Procedure?? , [id number]. See After Visit Summary for specific instructions shared with the patient. Disposition/Recommendation: protocol orders Information/Education: none - patient/caller declined Caller agreeable to plan of care: no Patient was unable to be reached. The following references were used: none Additional education materials provided: None History: Pulmonary hypertension, SOB, COPD, Tobacco use, Hx of PDA status post ligation, Hepatitic C Labs: Completed 08/19/2020. Creatinine 1.02, eGFR 65 documented in this encounter Plan of Treatment Not on filedocumented as of this encounter Visit Diagnoses Diagnosis Shortness Of Breath documented in this encounter Care Teams Upholstery Repairer Relationship Specialty Start Date End Date Ro Norton APRN, C.N.P., PCP - General Family Medicine D.N.P. [address] [phone] documented as of this encounter
--- OUTSIDE RECORDS SUMMARY | 2021-12-31 07:52 | XMS_ITS | Encounter Summary ---
:1970 Author Organization [facility] Address [address] [place] [address] Care Team Providers Name Role Phone Ro Norton APRN C.N.P., D.N.P. Primary Care Provider Encounter Details Date Type Department Care Team Description 08/19/2020 Diagnostic Division of Pulmonary Lubna Mcmillan, Other Secondary Pulmonary Hypertension (HCC); [place] Shortness Of Breath [place] [address] [facility] [address] [place] [phone] [phone] Social History Tobacco Use Types Packs/Day Years [...] do you attend adventist or Never 2021 caodaism services? Do you [...] Name Priority Date/Time Associated Diagnosis Comme nts PUL HOME OVERNIGHT Routine 08/20/2020 Other Secondary Result s for this OXIMETRY Pulmonary Hypertension proce dure are in the (HCC) results section. Shortness Of Breath documented in this encounter Results Home Overnight Oximetry (08/20/2020) Specimen (Source) Anatomical Location Collection Method / Collectio n Time Received Time / Laterality Volume 08/20/2020 Narrative MOREJON FRANK MORRISONP - 08/25/2020 1:11 PM CD T This result has an attachment that is no t available. See PDF report for results Procedure Note Emery Ma M.D. - 08/25/2020For matting of this note might be different from the original. See PDF report for results Lubna Mcmillan M.D. PFT ORDERABLES Performing Organization Address City/State/ZIP Code Phon e Number [place] [place] [facility] documented in this encounter Visit Diagnoses Diagnosis Other Secondary Pulmonary Hypertension ( HCC) Shortness Of Breath documented in this encounter Care Teams Religious Healer Relationship Specialty Start Date End Date Ro Norton APRN, C.N.P., PCP - General Family Medicine D.N.P. [address] [phone] (work) documented as of this encounter
--- OUTSIDE RECORDS SUMMARY | 2021-12-31 07:52 | XMS_ITS | Encounter Summary ---
:1970 Author Organization [facility] Address [address] [place] [address] Care Team Providers Name Role Phone Ro Norton APRN, C.N.P., D.N.P. Primary Care Provider Encounter Details Date Type Department Care Team Description 08/20/2020 Orders Only Department of Hipolito Lubna Hepatitis C Chronic Cardiovascular Medicine Michael Ansari (HCC) (Primary Dx) in [facility] [address] [facility] [address] [place] [phone] Social History Tobacco Use Types Packs/Day Years [...] do you attend pentecostal or Never 2021 yarsanism services? Do you [...] this encounter Visit Diagnoses Diagnosis Hepatitis C Chronic (HCC) - Primary documented in this encounter Additional Health Concerns Infection Onset Date Last Indicated Resolved Time COVID19 Pending 08/27/2020 08/27/2020 08/27/2020 12:09 PM CDT documented as of this encounter Care Teams Concrete Products Machine Operator Relationship Specialty Start Date End Date Ro Norton APRN, C.N.P., PCP - General Family Medicine D.N.P. [address] [phone] documented as of this encounter
--- OUTSIDE RECORDS SUMMARY | 2021-12-31 07:52 | XMS_ITS | Encounter Summary ---
:1970 Author Organization [facility] Address [address] [place] [address] Care Team Providers Name Role Phone Ro Norton APRN, C.N.P., D.N.P. Primary Care Provider Reason for Visit Appointment Request (Routine) - Closed Specialty Diagnoses / Procedures Referred By Contact Refer red To Contact Referral ID Status Reason Start Date Expiration Date Visits Requ ested Visits Authorized [id number] Closed 08/07/2020 08/07/2021 1 1 Encounter Details Date Type Department Care Team Description 08/31/2020 Office Visit Department of Lubna Mcmillan Cardiovascular Medicine Michael Ansari Pulmonary in [facility] rotary engine assembler [address] [facility] Hypertension (HCC) [address] [place], [place] (Primary Dx) [place] [phone] Social History Tobacco Use Types Packs/Day Years [...] or relatives? How often do you attend congregation or Never 2021 religion services? Do you belong to any clubs or No 02/25/2021 organizations such as congregation groups, unions, fraternal or athletic groups, or [...] Sign Reading Time Taken Comments Blood Pressure 137/97 08/31/2020 3:29 PM CDT Pulse 86 08/31/2020 3:29 PM CDT Temperature 35.8 ??C (96.4 ??F) 08/31/2020 3:29 PM CDT Respiratory Rate - - Oxygen Saturation 91% 08/31/2020 3:29 PM CDT Inhaled Oxygen Concentration - - Weight 67.8 kg (149 lb 7.6 oz) 08/31/2020 3:29 PM CDT Height 181.1 cm (5' 11.3) 08/31/2020 3:29 PM CDT Body Mass Index 20.67 08/31/2020 3:29 PM CDT documented in this encounter Progress Notes Lubna Mcmillan M.D. - 08/31/2020 3:30 PM CDT SUBJECTIVE CHIEF COMPLAINT / REASON FOR VISIT Pulmonary hypertension HISTORY OF PRESENT ILLNESS Ms. Allison Schluz is a 50 y.o. female who presents for follow-up evaluation of pulmonary hypertension. She is a 50 y.o. female current smoker with a history of P[facility] status [facility] [place], COPD with anatomic emphysema and ongoing tobacco use, untreated HCV infection with abnormal LFTs and prior drug use. I last saw Ms. Allison Schulz on 07/01/20 for an initial consultation. At that time, we started lasix 20mg daily and recommended additional testing related to PH including right heart catheterization andother diagnostic evaluation. Unfortunately, she no-showed her right heart catheterization twice, most recently last week. She returns today to review the results of her testing and to discuss the importance of pursuing right heart catheterization. Since her last visit, Ms. Allison Schulz reports an improvement in lower extremity edema since starting lasix. She has not had any further episodes of syncope. She generally feels fine but does endorse dyspnea with activities such as getting dressed and showering. She denies any dyspnea at rest. Her major concern with pursuing RHC was the need for sedation. She denies any drug use. She continues to smoke cigarettes but has decreased to 10 per day. The following portions of the patient's history were reviewed and updated as appropriate: allergies,current medications, family history, medical history, social history, surgical history and problem list. REVIEW OF SYSTEMS A 10-point review of systems was negative except as noted in the history of present illness. OBJECTIVE PHYSICAL EXAM Vitals: 08/31/20 1529 BP: (!) 137/97 Pulse: 86 Temp: (!) 35.8 ??C SpO2: 91% General: Thin, no conversational dyspnea. No acute distress Eyes: Anicteric sclerae. Vessels: JVP elevated Heart: Regular rate and rhythm. Prominent P2 and 2/6 systolic murmur left sternal border. Well-healed sternal scar Lungs: Hyperinflated. Scattered expiratory wheezes Abdomen: Soft, nontender, nondistended. No hepatosplenomegaly. Extremities: No clubbing, cyanosis or edema. Skin: No appreciable rashes or lesions STUDIES NTproBNP: 1688 Chemistry: Lab Results Component Value Date/Time NA 141 08/19/2020 11:02 AM NA 135 05/29/2020 11:02 AM KSERUM 4.2 08/19/2020 11:02 AM KBLOOD 3.9 10/23/2019 04:13 AM KPLASMA 4.6 05/29/2020 11:02 AM CL 102 08/19/2020 11:02 AM CL 98 05/29/2020 11:02 AM BICARB 25 08/19/2020 11:02 AM BICARB 25 05/29/2020 11:02 AM BICARB 24 10/23/2019 04:13 AM BUN 21 08/19/2020 11:02 AM BUN 11 05/29/2020 11:02 AM CREATININE 1.02 08/19/2020 11:02 AM CREATININE 0.66 05/29/2020 11:02 AM EGFRNONBLKAA 65 08/19/2020 11:02 AM GLUCOSE 113 08/19/2020 11:02 AM GLUCOSE 101 05/29/2020 11:02 AM GLUCOSEPOC 74 10/24/2019 08:49 AM GLUCOSEPOC 125 10/23/2019 04:13 AM ALKPHOS 155 (H) 08/19/2020 11:02 AM ALKPHOS 233 (H) 05/29/2020 11:02 AM AST 199 (H) 08/19/2020 11:02 AM AST 381 (H) 05/29/2020 11:02 AM ALT 182 (H) 08/19/2020 11:02 AM BILITOT 1.0 08/19/2020 11:02 AM BILITOT 1.2 05/29/2020 11:02 AM ANIONGAP 14 08/19/2020 11:02 AM ANIONGAP 12 05/29/2020 11:02 AM CALCIUM 8.9 08/19/2020 11:02 AM CALCIUM 9.2 05/29/2020 11:02 AM CBC: Lab Results Component Value Date/Time WBC 6.1 08/19/2020 11:02 AM RBC 5.18 (H) 08/19/2020 11:02 AM HGB 16.1 (H) 08/19/2020 11:02 AM HCT 50.2 (H) 08/19/2020 11:02 AM HCT 38.0 10/23/2019 04:13 AM PLT 153 (L) 08/19/2020 11:02 AM Overnight oximetry: Reduced oxygen saturation Echo Transthoracic (TTE) Result Date: 08/27/2020 Impression: . Severely enlarged right ventricular chamber size, moderate-severely reduced systolic function, estimated right ventricular systolic pressure 84 mmHg assuming right atrial pressure of 10 mmHg. 2. Normal left ventricular chamber size, no regional wall motion abnormalities, calculated 2-D linear ejection fraction 56 %. 3. D-shaped left ventricle. 4. Abnormal left ventricular geometry with concentric remodeling (increased wall thickness to cavity ratio), indeterminate filling pressure. 5. Mild-moderate tricuspid valve regurgitation. 6. Mild-moderate pulmonary valve regurgitation. 7. No pericardial effusion. 8. Agitated saline contrast administered. 9. No nenrt-tl-pjvs shunt at atrial level at rest or with Valsalva release. 10. No intrapulmonary shunt. PFTs: Severe obstruction with acute bronchodilator response and air trapping VQ Scan: No mismatched defects. Air trapping ASSESSMENT / PLAN #1 Pulmonary hypertension, suspected multifactorial #2 History of PDA status post ligation #3 Ongoing tobacco use #4 COPD with severe obstruction and air trapping #5 HCV infection, untreated #6 Abnormal LFTs #7 Exertional desaturation #8 Polycythemia #9 Functional class III dyspnea on exertion Ms. Allison Schulz is a 50 y.o. female who presents for follow up evaluation of PH to review the results of her testing and to emphasize the importance of right heart catheterization which she has no showed twice and been reluctant to pursue. She has numerous risk factors for PH including active untreated HCV infection and abnormal LFTs, COPD and nocturnal hypoxia. She also has a history of prior druguse although denies methamphetamine use and has a history of PDA status post ligation. We will optimize her COPD treatment as below and also encourage smoking cessation. We discussed the danger of using supplemental oxygen while continuing to smoke and I provided her with a nicotrol prescription to aid in smoking cessation. In terms of her PH, we will proceed with RHC for definitive evaluation to determine the most appropriate next steps. Plan - RHC next week without sedation per patient preference - Hepatology consultation - Nocturnal supplemental oxygen (2lpm) and use of supplemental oxygen with activity (1 lpm) - Stop spiriva and start Trelegy Ellipta (if approved by insurance) - Nicotrol to aid in smoking cessation - Return visit to review test results documented in this encounter Plan of Treatment Not on filedocumented as of this encounter Visit Diagnoses Diagnosis Other Secondary Pulmonary Hypertension ( HCC) - Primary documented in this encounter Care Teams Parking Control Officer Relationship Specialty Start Date End Date Ro Norton APRN, C.N.P., PCP - General Family Medicine D.N.P. [address] [phone] documented as of this encounter
--- OUTSIDE RECORDS SUMMARY | 2021-12-31 07:53 | XMS_ITS | Encounter Summary ---
:1970 Author Organization [facility] Address [address] [place] [address] Care Team Providers Name Role Phone Ro Norton APRN C.N.Kirsty, MileNRaffyPRaffy Primary Care Provider Encounter Details Date Type Department Care Team Description 06/04/2020 Clinical Communication Department of [facility] Ro Norton, Medicine, [place] MORGAN C.N.PRaffy, Clinic, in [place] [address] [phone] Social History Tobacco Use Types Packs/Day Years [...] do you attend gnosticist or Never 2021 adventism services? Do you [...] on filedocumented in this encounter Care Teams Supervisor Painting Department Relationship Specialty Start Date End Date Ro Norton APRN, C.N.P., PCP - General Family Medicine D.N.P. [address] [phone] documented as of this encounter
--- OUTSIDE RECORDS SUMMARY | 2021-12-31 07:53 | XMS_ITS | Encounter Summary ---
:[address] [facility] Address [address] [place] [address] Care Team Providers Name Role Phone Ro Norton APRN C.N.Kirsty, MileNRaffyPRaffy Primary Care Provider Encounter Details Date Type Department Care Team Description 06/01/2020 Clinical Communication Department of [facility] Ro Norton, Medicine, [place] MORGAN C.N.PRaffy, Clinic, in [place] [address] [phone] Social History Tobacco Use Types Packs/Day Years [...] or relatives? How often do you attend uatsdin or Never 2021 hindu services? Do you belong to any clubs or No 02/25/2021 organizations such as uatsdin groups, unions, fraternal or athletic groups, or [...] this encounter Miscellaneous Notes Telephone Encounter - Raissa Mercedeshaydee Ansari - 06/01/2020 5:59 PM CDT Nitish Schulz, Ro Norton APRN, C.N.P., D.N.P. has put in a request for you to schedule an office visit, at your earliest convenience. To secure an appointment, please respond with your appointment time preferences (e.g. day of week, time of day, etc.) that would be close to the expected date that was requested. You can also reach us at your clinic appointment line if you would prefer to schedule this over the phone between 7 am-6 pm, Monday-Monday. [place]: [phone] [place]: [phone] [place]: [phone] [place]: [phone] [place]: [phone] [place]: [phone] Ollie Horne [facility]: [phone] D[facility] Partida [place], [place], or [place] [facility]: [phone] [place]:[phone] [place]: [phone] Thank you for trusting your health care to [facility]. documented in this encounter Plan of Treatment Not on filedocumented as of this encounter Visit Diagnoses Not on filedocumented in this encounter Care Teams Airline Mechanic Relationship Specialty Start Date End Date Ro Norton APRN, C.N.P., PCP - General Family Medicine D.N.P. [address] [phone] documented as of this encounter
--- OUTSIDE RECORDS SUMMARY | 2021-12-31 07:53 | XMS_ITS | Encounter Summary ---
:1970 Author Organization [facility] Address [address] [place] [address] Care Team Providers Name Role Phone Ro Norton APRN, C.N.P., D.N.P. Primary Care Provider Reason for Visit Reason Comments Follow-up Outpatient (Routine) - Closed Specialty Diagnoses / Procedures Referred By Contact Refer red To Contact Family Medicine Diagnoses Chronic Obstructive Pulmonary Disease Exacerbation (HCC) Ro Norton, [facility] MORGAN, C.N.P., D.N.P. [address] [place] [phone] Referral ID Status Reason Start Date Expiration Date Visits Requ ested Visits Authorized [id number] Closed 05/07/2019 05/06/2020 1 1 Encounter Details Date Type Department Care Team Description 06/05/2020 Office Visit Department of Family Ro Norton, Ot her Secondary Pulmonary Hypertension (HCC) (Primary Dx); Medicine, [place] MORA, C.N.P., Chronic Ob structive Pulmonary Disease Exacerbation (HCC); [facility], in D.N.P. Anomaly Heart Congenital (HCC) [address] [phone] Social History Tobacco Use Types Packs/Day Years Used Date Smoking Tobacco: Every Day Cigarettes Smokeless Tobacco: Never Tobacco Cessation: Ready to [...] do you attend yazidism or Never 2021 hinduism services? Do you belong to any clubs [...] Sign Reading Time Taken Comments Blood Pressure 138/97 06/05/2020 3:03 PM CDT Pulse 80 06/05/2020 3:03 PM CDT Temperature 36.4 ??C (97.5 ??F) 06/05/2020 3:03 PM CDT Respiratory Rate 18 06/05/2020 3:03 PM CDT Oxygen Saturation 93% 06/05/2020 3:03 PM CDT Inhaled Oxygen Concentration - - Weight - - Height - - Body Mass Index - - documented in this encounter Progress Notes Ro Norton APRN, C.N.P., D.N.P. - 06/05/2020 3:30 PM CDT SUBJECTIVE CHIEF COMPLAINT/REASON FOR VISIT Allison Schulz is a 49 y.o. female who presents for evaluation of Follow-up HISTORY OF PRESENT ILLNESS Allison Schulz presents for follow-up of her shortness of breath symptoms. She reports that her symptoms have been stable over the past several days. She had significant anxiety following her last appointment, but reports that she has had time to process the information and understands the importance of following up with the ordered tests and consult. OBJECTIVE PHYSICAL EXAMINATION Vital Signs: BP (!) 138/97 (BP Location: Left arm, Patient Position: Sitting, Cuff Size: Regular) Pulse 80 Temp 36.4 ??C (Temporal) Resp 18 SpO2 93% There is no height or weight on file to calculate BMI. General: No acute distress. Psych: Affect is appropriate. No SI/HI ASSESSMENT / PLAN 1. Chronic Obstructive Pulmonary Disease Exacerbation (HCC) Stable. No current concerns. - Family Medicine office visit (clinic) 2. Other Secondary Pulmonary Hypertension (HCC) She has insurance counsel ordered scheduled for July 01. - Cardiovascular Disease - Adult congenital heart disease consult (clinic); Future - Social Work - General consult (clinic); Future 3. Anomaly Heart Congenital (HCC) Consult reordered with appropriate diagnosis code. Patient was asked to contact me if she is unable to schedule this again. - Cardiovascular Disease - Adult congenital heart disease consult (clinic); Future - Social Work - General consult (clinic); Future Patient was instructed to follow up in [...] Ro Norton APRN, C.N.P., D.N.P. Total time: 12 minutes documented in this encounter Plan of Treatment Not on filedocumented as of this encounter Visit Diagnoses Diagnosis Other Secondary Pulmonary Hypertension ( HCC) - Primary Chronic Obstructive Pulmonary Disease Ex acerbation (HCC) Anomaly Heart Congenital (HCC) documented in this encounter Care Teams Powertrain Design Engineer Relationship Specialty Start Date End Date Ro Norton APRN, C.N.Taylor., PCP - General Family Medicine D.N.P. [address] [phone] documented as of this encounter
--- OUTSIDE RECORDS SUMMARY | 2021-12-31 07:53 | XMS_ITS | Encounter Summary ---
:1970 Author Organization [facility] Address [address] [place] [address] Care Team Providers Name Role Phone Ro Norton APRN C.N.PRaffy, D.N.P. Primary Care Provider Reason for Referral Outpatient (Routine) - Closed Specialty Diagnoses / Procedures Referred By Contact Refer red To Contact Diagnoses Other Secondary Pulmonary Hypertension (HCC) Shortness Of Breath Lubna Mcmillan M.D. [facility] Procedures NM Lung Ventilation and Perfusion [address] [place] [address] Referral ID Status Reason Start Date Expiration Date Visits Requ ested Visits Authorized [id number] Closed 07/01/2020 07/01/2021 6 6 Reason for Visit Outpatient (Routine) - Closed Specialty Diagnoses / Procedures Referred By Contact Refer red To Contact Diagnoses Other Secondary Pulmonary Hypertension (HCC) Shortness Of Breath Lubna Mcmillan M.D. [facility] Procedures NM Lung Ventilation and Perfusion [address] [place] [address] Referral ID Status Reason Start Date Expiration Date Visits Requ ested Visits Authorized [id number] Closed 07/01/2020 07/01/2021 6 6 Encounter Details Date Type Department Care Team Description 08/19/2020 Hospital Encounter Department of Lubna Mcmillan Other Secondary Pulmonary Hypertension (HCC); Radiology, Giovanni Ansari M.D. [facility], in [address] [place] [phone] 200 [facility] [phone] [place], [place] (Work) [address] [phone] Social History Tobacco Use Types Packs/Day Years [...] do you attend sikh or Never 2021 shinto services? Do you [...] needed for wheezing or shortness of breath. pramipexole (MIRAPEX) Take 2 tablets (0.25 60 tablet 2 04/10/202011/24/2020 0.125 mg tablet mg total) by mouth at bedtime. tiotropium (Spiriva with Inhale 1 capsule (18 90 capsule 3 0 06/22/2020 12/17/2020 HandiHaler) 18 mcg mcg total) daily. inhalation capsule documented as of this encounter Plan of Treatment Not on filedocumented as of this encounter Procedures Procedure Name Priority Date/Time Associated Comments Diagnosis NM LUNG RAD - Routine 08/19/2020 10:34 Other Secondary Results for VENTILATION AND (most inpatients AM CDT Pulmonary this pro cedure PERFUSION and all Hypertension (HC C) are in the outpatients) Shortness Of Breath results section. documented in this encounter Results NM Lung Ventilation and Perfusion (08/19/2020 10:34 AM CDT) Anatomical Region Laterality Modality Chest, Nuclear Medicine RST LOS, Nuclear Medicine ARZ N/A Nuclear Medicine LOS, Nuclear Medicine FLA LOS, Nuclear Medicine Specimen (Source) Anatomical Collection Method Collection Time Re ceived Time Location / / Volume Laterality 08/19/2020 10:40 AM CDT Impressions 08/19/2020 11:30 AM CDT 1. No mismatched defects to suggest PE. 2. Multifocal subsegmental matching VQ d efects involving all zones of the both lungs secondary to air trapping possibly from small airway disease. 3. Large matched defect involving the ri ght middle lobe and superior aspect of the right lower lobe secondary to atelec tasis/scarring as noted on the CT in October 2019. Narrative 08/19/2020 11:30 AM CDT EXAM: ??NM LUNG VENTILATION AND PERFUSION RADIOPHARMACEUTICAL/MEDS: Route: inhalation xenon Xe 133 gas (XENON Xe-133),19.5 mil licurie Route: intravenous technetium Tc 99m albumin aggregated inj ection (Tc-99m MAA) , 4.06 millicurie TECHNIQUE: Multiple projection planar pieter ng ventilation and perfusion images obtained beginning immediately following radiotracer inhalation and 5 minutes following IV radiotracer injection respe ctively. ?? COMPARISON: ??Chest x-ray 06/19/2020, CT chest with IV contrast 10/22/2019 INDICATION: ??CTEPH FINDINGS: ??On the ventilation study the re are areas of heterogeneous decreased ventilation involving the both lungs. Th e decrease is greatest involving the right mid lung. Multifocal areas of air trapping are noted involving both lungs in the upper, mid, and lower zones great est in the left midlung. On the perfusion study, there is heterog eneous perfusion involving both lungs with mostly matched non-segmental defect s from air trapping. There is a large perfusion defect that is matched with ve ntilation the involving the right middle lobe and the superior aspect of the righ t lower lobe which corresponds to atelectasis and/scarring noted on the co mparison CT chest on 10/22/2019. No mismatch defects suggest PE. Procedure Note Phillip Morel M.D., Ph.D. - 021 EXAM: NM LUNG VENTILATION AND PERFUSION RADIOPHARMACEUTICAL/MEDS: Route: inhalation xenon Xe 133 gas (XENON Xe-133),19.5 mil licurie Route: intravenous technetium Tc 99m albumin aggregated inj ection (Tc-99m MAA) , 4.06 millicurie TECHNIQUE: Multiple projection planar pieter ng ventilation and perfusion images obtained beginning immediately following radiotracer inhalation and 5 minutes following IV radiotracer injection respe ctively. COMPARISON: Chest x-ray 06/19/2020, CT c hest with IV contrast 10/22/2019 INDICATION: CTEPH FINDINGS: On the ventilation study there are areas of heterogeneous decreased ventilation involving the both lungs. Th e decrease is greatest involving the right mid lung. Multifocal areas of air trapping are noted involving both lungs in the upper, mid, and lower zones great est in the left midlung. On the perfusion study, there is heterog eneous perfusion involving both lungs with mostly matched non-segmental defect s from air trapping. There is a large perfusion defect that is matched with ve ntilation the involving the right middle lobe and the superior aspect of the righ t lower lobe which corresponds to atelectasis and/scarring noted on the co mparison CT chest on 10/22/2019. No mismatch defects suggest PE. IMPRESSION: 1. No mismatched defects to suggest PE. 2. Multifocal subsegmental matching VQ d efects involving all zones of the both lungs secondary to air trapping possibly from small airway disease. 3. Large matched defect involving the ri ght middle lobe and superior aspect of the right lower lobe secondary to atelec tasis/scarring as noted on the CT in October 2019. Lubna Mcmillan M.D. IMG NM PROCEDURES documented in this encounter Visit Diagnoses Diagnosis Other Secondary Pulmonary Hypertension ( HCC) Shortness Of Breath documented in this encounter Administered Medications Inactive Administered Medications - up to 3 most recent administrations Medication Order MAR Action Action Date Dose Rate Site technetium Tc 99m Given 08/19/2020 10:15 4.06 millicuries Right Hand albumin aggregated AM CDT injection (Tc-99m MAA) 4.06 millicurie, intravenous, Once, On Mon08/19/20 at 1030, For 1 dose xenon Xe 133 gas (XENON Xe-133) Given 08/19/2020 10:00 AM CDT 19.5 millicuries 15-30 millicurie, inhalation, Once, On Mon08/19/20 at 1030, For 1 dose documented in this encounter Care Teams [place]man Relationship Specialty Start Date End Date Ro Norton APRN, C.N.P., PCP - General Family Medicine D.N.P. [address] [phone] documented as of this encounter
--- OUTSIDE RECORDS SUMMARY | 2021-12-31 07:53 | XMS_ITS | Encounter Summary ---
:1970 Author Organization [facility] Address [address] [place] [address] Care Team Providers Name Role Phone Ro Norton APRN C.N.Kirsty, D.N.P. Primary Care Provider Reason for Visit Reason Comments Med Refill Encounter Details Date Type Department Care Team Description 06/22/2020 Refill Department of Family Medicine, Ro Norton APRN, Med Refill [facility], in Law C .N.P., D.N.P. [address] [phone] (Wo rk) Social History Tobacco Use Types [...] or relatives? How often do you attend christian or Never 2021 nondenominational services? Do you belong to any clubs or No 02/25/2021 organizations such as christian groups, unions, fraternal or athletic groups, or [...] place to sleep or slept in a penitentiary (including now)? Education Answer Date Recorded What is the highest level of school you have completed or 12 th grade 11/13/2019 the highest degree you have received? Sex Assigned at Date Recorded Female 10/14/2020 12:54 PM CDT documented as of this encounter Plan of Treatment Not on filedocumented as of this encounter Visit Diagnoses Not on filedocumented in this encounter Care Teams Dietitian Chief Relationship Specialty Start Date End Date Ro Norton APRN, C.N.P., PCP - General Family Medicine D.N.P. [address] [phone] documented as of this encounter
--- OUTSIDE RECORDS SUMMARY | 2021-12-31 07:53 | XMS_ITS | Encounter Summary ---
:1970 Author Organization [facility] Address [address] [place] [address] Care Team Providers Name Role Phone Ro Norton APRN, C.N.P., D.N.P. Primary Care Provider Reason for Visit Reason Comments Social Work and Cardiovascular Consults for RST Orders for [facility] Encounter Details Date Type Department Care Team Description 06/11/2020 Clinical Department of Ro Norton Social Work and Communication Family Medicine, MORGAN Ansari, [facility] C.N.P., D.N.P. Consults for RST Clinic, in [address] (Orders fo r [address] [address] [place], [place] [phone] (Work) [phone] Social History Tobacco Use Types Packs/Day Years [...] this encounter Miscellaneous Notes Telephone Encounter - Moon Peraza - 06/11/2020 11:49 AM CDT Thank you for your order. We have left messages for this patient to return a call so that we may gather additional informationfor registration and scheduling. We will attempt to contact the patient again in 30 days. If someoneshould contact you about the message, please direct that person to call us at [phone]. If you have questions, please call us at [phone] or [phone]. documented in this encounter Plan of Treatment Not on filedocumented as of this encounter Visit Diagnoses Not on filedocumented in this encounter Additional Health Concerns Infection Onset Date Last Indicated Resolved Time COVID19 Pending 06/19/2020 06/19/2020 06/19/2020 10:46 AM CDT documented as of this encounter Care Teams Keycase Assembler Relationship Specialty Start Date End Date Ro Norton APRN C.N.P., PCP - General Family Medicine D.N.P. [address] [id number] documented as of this encounter
--- OUTSIDE RECORDS SUMMARY | 2021-12-31 07:53 | XMS_ITS | Encounter Summary ---
:1970 Author Organization [facility] Address [address] [place] [address] Care Team Providers Name Role Phone Ro Norton APRN C.N.P., D.N.P. Primary Care Provider Reason for Visit Reason Comments Shortness of Breath Encounter Details Date Type Department Care Team Description 06/19/2020 Emergency [facility] Adrian Rea, Chronic Obstructive Department P.A.-C. Pulmonary Disease (HCC) [address] [place] [address] [address] [place] [address] (Primary Dx) [place] [phone] (Wo rk) Social History Tobacco Use Types [...] do you attend denominational or Never 2021 mosque services? Do you [...] Sign Reading Time Taken Comments Blood Pressure 118/90 06/19/2020 10:00 AM CDT Pulse 80 06/19/2020 10:50 AM CDT Temperature 36 ??C (96.8 ??F) 06/19/2020 9:31 AM CDT Respiratory Rate - - Oxygen Saturation 91% 06/19/2020 10:50 AM CDT Inhaled Oxygen Concentration - - Weight 74 kg (163 lb 2.3 oz) 06/19/2020 9:53 AM CDT Height - - Body Mass Index 23.89 10/23/2019 7:30 AM CDT documented in this encounter Discharge Instructions AttachmentsThe following attachments cannot be sent through Care Everywhere. Chronic Obstructive Pulmonary Disease Exacerbation ([place])documented in this encounter Medications at Time of Discharge Medication Sig Dispensed Refills Start Date End Date ascorbic acid, vitamin Take 100 mg by mouth 0 C, (VITAMIN C) 100 mg daily. tablet multivitamin capsule Take 1 capsule by 0 mouth daily. zinc sulfate (ZINCATE) Take 220 mg by mouth 0 220 (50) mg capsule daily. predniSONE (DELTASONE) Take 3 tablets (60 15 tablet 0 06/1906/24/2020 20 mg tablet mg total) by mouth daily for 5 days. Take with food or milk. acetaminophen (TYLENOL) Take 2 tablets 0 10/27/19 [...] 0 09/29/2020 120-180 mg capsule mouth daily. ipratropium-albuteroL Take 3 mL by 270 mL 3 05/07/2019 0 03/09/2021 (DUO-NEB) 0.5-2.5 mg/3 nebulization 4 mL nebulizer solution (four) times a day as needed for wheezing or shortness of breath. pramipexole (MIRAPEX) Take 2 tablets (0.25 60 tablet 2 10/202011/24/2020 0.125 mg tablet mg total) by mouth at bedtime. tiotropium (Spiriva with Inhale 1 capsule (18 90 capsule 3 0 05/07/2019 06/22/2020 HandiHaler) 18 mcg mcg total) daily. inhalation capsule documented as of this encounter ED Notes Adrian Rea P.A.-C. - 06/19/2020 9:49 AM CDT SUBJECTIVE CHIEF COMPLAINT/REASON FOR VISIT Shortness of Breath HISTORY OF PRESENT ILLNESS 49-year-old female with history of COPD, pulmonary hypertension presenting with shortness of breath,increased wheezing, mildly productive cough worsening over last 1-2 days. No fevers or chills, no nausea, vomiting, diarrhea or myalgias. She has not had the COVID vaccine yet. Patient O2 sat normally runs in the upper 80s however was in the lower 80s when rescue service 1st arrived. She was given a DuoNeb by EMS EN route and feels much improved. Patient currently smokes every day, occasionally drinks. Family history of breast cancer. REVIEW OF SYSTEMS Constitutional: Negative for chills and fever. HENT: Negative for rhinorrhea and sore throat. Respiratory: Positive for cough, shortness of breath and wheezing. Gastrointestinal: Negative for abdominal pain, diarrhea, nausea and vomiting. Skin: Negative for rash and wound. Psychiatric/Behavioral: Negative for confusion and decreased concentration. OBJECTIVE Initial Vitals Temperature Pulse Rate Heart Rate Resp Blood Pressure SpO2 06/19/20 0931 06/19/20 0931 -- -- 06/19/20 0931 06/19/20 0931 36 ??C 101 112/85 (!) 89 % Pain Score 06/19/20 0933 0 - No pain PHYSICAL EXAMINATION Constitutional: Vitals reviewed. She appears not lethargic. No distress. HENT: Nose: No nasal discharge. Mouth/Throat: Mucous membranes are moist. Eyes: Conjunctivae are normal. Pupils are equal, round, and reactive to light. Cardiovascular: Normal rate. Capillary refill: takes less than 3 seconds, Pulmonary/Chest: Effort normal. No respiratory distress. Decreased air movement is present. She has wheezes. Abdominal: exhibits no distension. Musculoskeletal: General: No deformity or edema. Cervical back: Normal range of motion. Neurological: Alert and oriented to person, place, and time. She is not disoriented. Skin: Skin is warm and dry. No rash noted. Psychiatric: She has a normal mood and affect. Behavior is normal. ASSESSMENT/PLAN IMPRESSION AND PLAN Patient given albuterol nebulizer which further improved her breathing. Chest x- ray shows bilateral middle and lower lobe interstitial prominence most consistent with viral etiology. COVID testing negative. Patient given prednisone in the emergency room. Will send her home with prescription for prednisone, albuterol inhaler and azithromycin. Home care instructions discussed, signs and symptoms that should prompt return to the emergency room were discussed. DIFFERENTIAL DIAGNOSIS Emergent etiology such as bacterial pneumonia, viral pneumonia, COVID infection, pneumothorax, PE I reviewed previous medical records including documentation from previous visits, radiology images/report and lab results. I personally reviewed the lab result(s) and my interpretation is documented in ED Course and normal. I personally reviewed the radiology image(s). The Radiology exam interpretation(s) is/are documentedin ED Course and abnormal. Final Diagnoses: as of Jun 19 1048 Chronic Obstructive Pulmonary Disease (HCC) Adrian Rea P.A.Shira. 06/19/20 1050 Annie Pugh R.N. - 06/19/2020 9:43 AM CDT Pt presents to ED with c/o increased work of breathing. Pt has hx of COPD. Denies fevers, chills, chest pain Annie Pugh R.N. 06/19/20 0944 documented in this encounter Plan of Treatment Not on filedocumented as of this encounter Procedures Procedure Name Priority Date/Time Associated Comments Diagnosis SARS CORONAVIRUS 2, STAT 06/19/2020 10:17 Resu lts for this PCR RAPID, V AM CDT procedure are i n the results section. DX CHEST AP OR PA RAD - Semiurgent 06/19/2020 9:54 Res ults for this AND LATERAL 2 VIEWS (Fast; most ED AM CDT proced ure are in patients; some the results inpatients) section. documented in this encounter Results SARS Coronavirus 2, PCR Rapid, V Symptomatic (06/19/2020 10:17 AM CDT) [facility] Method Time Signature SARS CoV-2, Undetected Undetected 06/19/2020 [facility] PCR, Rapid, V 10:46 AM CDT Comment: ----ADDITIONAL INFORMATION---- This RT-PCR test was performed using the Trey SARS-CoV-2 and Influenza A/B Reagent assay from [employer], which has received Emergency Use Authori zation(EUA) by the U.S. Food and Drug Administration . Fact sheets for this Emergency Use Autho rization (EUA) assay can be found at the following link s: For Healthcare Providers: https://www.fda.gov/media/904207/downloa d For Patients: https://www.fda.gov/media/035713/downloa d SARS Coronavirus 2, Source, Swab, Nasopharynx 05/23 10:21 AM CDT [facility] Rapid Specimen Anatomical Collection Method Collection Time Receive d Time (Source) Location / / Volume Laterality Varies 06/19/2020 10:17 06/19/2020 (Nasopharynx) AM CDT 10:21 AM CDT Adrian Rea P.A.-C. LAB MICROBIOLOGY - GENERAL O RDERABLES Performing Organization Address City/State/ZIP Code Phon e Number [facility]- [address] [place] [address] [place] [address] [place] [address] [address] in [place] [address] [address] DX Chest AP or PA and Lateral 2 Views (06/19/2020 9:54 AM CDT) Anatomical Region Laterality Modality Chest, Thoracic RST LOS, Thoracic ARZ LOS, Thoracic N/A Digital Radiography FLA LOS Specimen (Source) Anatomical Collection Method Collection Time Re ceived Time Location / / Volume Laterality 06/19/2020 9:56 AM CDT Impressions 06/19/2020 9:59 AM CDT New interstitial prominence in the mid and lower lungs can be seen with edema or infection. Remainder uncha nged. Cardiomegaly with enlargement of the central pulmonary arteries, and omar cent atelectasis in the medial right lower lobe. Hyperinflation. Sternotomy. Narrative 06/19/2020 9:59 AM CDT EXAM: DX CHEST AP OR PA AND LATERAL 2 VIEWS Procedure Note Asha Sheriff M.D. - 06/19/2020Form atting of this note might be different from the original. EXAM: DX CHEST AP OR PA AND LATERAL 2 EWS IMPRESSION: New interstitial prominence in the mid a nd lower lungs can be seen with edema or infection. Remainder uncha nged. Cardiomegaly with enlargement of the central pulmonary arteries, and omar cent atelectasis in the medial right lower lobe. Hyperinflation. Sternotomy. Adrian Rea P.A.-C. IMG DIAGNOSTIC IMAGING PROCE BLAIR documented in this encounter Visit Diagnoses Diagnosis Chronic Obstructive Pulmonary Disease (H CC) - Primary documented in this encounter Administered Medications Inactive Administered Medications - up to 3 most recent administrations Medication Order MAR Action Action Date Dose Rate Site albuterol nebulizer solution 2.5 Given 06/19/2020 9:51 AM CDT 2. 5 mg mg (ACCUNEB) 2.5 mg, nebulization, Once, On Mon06/19/20 at 0940, For 1 dose predniSONE tablet 60 mg (DELTASONE) Given 06/19/2020 9:51 AM CDT 60 mg 60 mg, oral, Once, On Mon06/19/20 at 0940, For 1 dose documented in this encounter Active and Recently Administered Medications Times are shown in CDT. Scheduled Medication Order 06/17/2020 06/18/2020 06/19/2020 albuterol nebulizer solution 2.5 mg (ACCUNEB) (COMPLETED) 950 (Given - Provider: Annie Pugh R.N.) 2.5 mg, nebulization, Once, On Mon06/19/20 at 0940, For 1 dose predniSONE tablet 60 mg (DELTASONE) (COMPLETED) 950 (Given - Provider: Annie Pugh R.N.) 60 mg, oral, Once, On Mon06/19/20 at 0940, For 1 dose documented in this encounter Additional Health Concerns Infection Onset Date Last Indicated Resolved Time COVID19 Pending 06/19/2020 06/19/2020 06/19/2020 10:46 AM CDT documented as of this encounter Care Teams Vessel Scrapper Relationship Specialty Start Date End Date Ro Norton APRN, C.N.P., PCP - General Family Medicine D.N.P. [id number] [phone] documented as of this encounter
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
--- OUTSIDE RECORDS SUMMARY | 2021-12-31 07:53 | XMS_ITS | Encounter Summary ---
:[address] [facility] Address [address] [place] [address] Care Team Providers Name Role Phone Ro Norton APRN, C.N.P., D.N.P. Primary Care Provider Encounter Details Date Type Department Care Team Description 05/29/2020 Hospital Encounter Department of Ro Norton Obstructive Pulmonary Disease Without Exacerbation (HCC); Radiology in [place] APRN, Other Se condary Pulmonary Hypertension (HCC); [place], [place] C.N.P., D.N.P. Shortness Of Breath; [id number] [place] [id number] [place] [address] [place], [place], [phone] [place] [phone] Social History Tobacco Use Types Packs/Day Years [...] do you attend [employer] or Never 2021 faith services? Do you belong to any clubs [...] pain. 1st level for pain control albuterol inhaler Inhale 2 puffs 4 1 Inhaler 2 05/07/2019 0 06/19/2020 (four) times a day. docosahexaenoic acid-epa Take 1,000 mg by 0 [...] Name Priority Date/Time Associated Comments Diagnosis DX CHEST AP OR PA RAD - Routine 05/29/2020 11:16 Chronic Obstructiv e Results for this AND LATERAL 2 (most inpatients AM CDT Pulmonary Disease proce dure are in VIEWS and all Without the results outpatients) Exacerbation (HC C) section. Other Secondary Pulmonary Hypertension (HC C) [...] C.N.P., D.N.P. IMG DIAGNOSTIC IM AGING PROCEDURES documented in this encounter Visit Diagnoses Diagnosis Chronic Obstructive Pulmonary Disease Wi thout Exacerbation (HCC) Other Secondary Pulmonary Hypertension ( HCC) Shortness Of Breath Fatigue documented in this encounter Care Teams Trim Master Operator Relationship Specialty Start Date End Date Ro Norton APRN, C.N.Taylor., PCP - General Family Medicine D.N.P. [address] [phone] documented as of this encounter
--- OUTSIDE RECORDS SUMMARY | 2021-12-31 07:53 | XMS_ITS | Encounter Summary ---
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 08/19/2020 [place] 25-75% 5:30 PM CDT SUITE PRED PEF 6.8 08/19/2020 [place] 5:30 PM CDT SUITE PRED DLCO 25.7 08/19/2020 [place] 5:30 PM CDT SUITE PRED DLCOc 25.7 08/19/2020 [place] 5:30 PM CDT SUITE Specimen (Source) Anatomical Collection Method Collection Time Re ceived Time Location / / Volume Laterality 08/19/2020 1:58 PM CDT Narrative This result has an attachment that is no t available. Lubna Mcmillan M.D. PFT ORDERABLES Performing Organization Address City/State/ZIP Code Phon e Number [place] [place] NA ECG 12 Lead (08/19/2020 12:42 PM CDT) P athologist Signature Ventricular Rate 69 BPM MUSE ECG/Min AK Interval 144 ms MUSE QRSD Interval 94 ms MUSE QT Interval 456 ms MUSE QTC Interval 488 ms MUSE P [place] 70 degrees MUSE R [place] 112 degrees MUSE T Wave [place] 103 degrees MUSE Specimen Anatomical Collection Method Collection Time Receive d Time (Source) Location / / Volume Laterality 08/19/2020 12:42 08/19/2020 PM CDT 12:53 PM CDT Impressions MUSE - 08/19/2020 12:53 PM CDT Normal sinus rhythm Right axis deviation Right ventricular hypertrophy ST and T wave abnormality, consider ante rior ischemia Slight ST depression in Inferior leads Prolonged QT When compared with ECG of 29-MAY-2020 11 :07, QT has lengthened Incomplete right bundle branch block no longer present Criteria for Right ventricular hypertrop hy is now present ST now depressed in Inferior leads Reviewed by PRAKASH Babin Narrative This result has an attachment that is no t available. Procedure Note José Luis Han M.D. - 08/19/2020Formatt ing of this note might be different from the original. IMPRESSION: Normal sinus rhythm Right axis deviation Right ventricular hypertrophy ST and T wave abnormality, consider ante rior ischemia Slight ST depression in Inferior leads Prolonged QT When compared with ECG of 29-MAY-2020 11 :07, QT has lengthened Incomplete right bundle branch block no longer present Criteria for Right ventricular hypertrop hy is now present ST now depressed in Inferior leads Reviewed by PRAKASH Babin Lubna Mcmillan M.D. ECG ORDERABLES Performing Organization Address City/State/ZIP Code Phon e Number MUSE MUSE NA HIV-1/-2 Ag and Ab Screen, Plasma (08/19/2020 11:02 AM CDT) P athologist Signature HIV-1/-2 Ag Negative Negative 08/19/2020 [facility] and Ab Screen, 9:25 PM CDT P Comment: Negative result does not rule out HIV in fection. If exposure to HIV infection occurred <14 d ays ago, contact the laboratory to request additi on of HIV-1 RNA detection / quantification test (HIV QN). Specimen Anatomical Collection Method Collection Time Receive d Time (Source) Location / / Volume Laterality Blood (Blood, 08/19/2020 11:02 08/19/2020 5:51 Venous) AM CDT PM CDT Lubna Mcmillan M.D. LAB MICROBIOLOGY - BLOOD ORD ERABLES Performing Organization Address [facility] Phon e Number [address] [place] [address] [address] [place] [address] Laboratory Medicine and Pathology [address] [place] [address] Dr. ARMSTRONG (ABNORMAL) HCV Ab w/Reflex to HCV PCR, Serum (08/19/2020 11:02 AM CDT) athologist Signature HCV Ab, S Reactive (A) Negative 08/19/2020 [facility] 10:10 PM CDT Comment: Supplemental testing for HCV RNA is orde red to rule out active HCV infection. Bnxwyh-ug-dsmgje ratio is >=8.00. Specimen Anatomical Collection Method Collection Time Receive d Time (Source) Location / / Volume Laterality Blood (Blood, 08/19/2020 11:02 08/19/2020 5:50 Venous) AM CDT PM CDT Lubna Mcmillan M.D. LAB MICROBIOLOGY - BLOOD ORD ERADARVIN Performing Organization Address [facility] Phon e Number [address] [place] [phone] [facility] [place] [address] Laboratory Medicine and Pathology [address] [place] [address] Dr. [place]STRONG (ABNORMAL) HBc Total Ab, Serum (08/19/2020 11:02 AM CDT) Patholo gist Method Time Signature HBc Total Ab, Positive (A) Negative 08/19/2020 [facility] S 9:53 PM CDT Comment: If clinically indicated, testing for Hep atitis B Core IgM antibody is necessary to differentia te between acute and past HBV infection. Specimen Anatomical Collection Method Collection Time Receive d Time (Source) Location / / Volume Laterality Blood (Blood, 08/19/2020 11:02 08/19/2020 5:50 Venous) AM CDT PM CDT Lubna Mcmillan M.D. LAB MICROBIOLOGY - BLOOD ORD ERABLES Performing Organization Address City/State/ZIP Code Phon e Number [facility] [address] [place], [place] [address] [facility] [place] [address] Laboratory Medicine and Pathology [address] [place] [address] Dr. ARMSTRONG HBs Antibody, Serum (08/19/2020 11:02 AM CDT) athologist Signature HBs Antibody, Negative 08/19/2020 [facility] S 9:47 PM CDT Comment: Patient is presumed to be not immune to infection with HBV. ----REFERENCE VALUE---- Unvaccinated: Negative Vaccinated: Positive HBs Antibody, Quantitative, S <5.0 mIU/mL 08/19/2020 9:47 PM CDT [facility] Comment: ----REFERENCE VALUE---- Unvaccinated: <5.0 Vaccinated: >=12.0 Specimen Anatomical Collection Method Collection Time Receive d Time (Source) Location / / Volume Laterality Blood (Blood, 08/19/2020 11:02 08/19/2020 5:50 Venous) AM CDT PM CDT Luban Mcmillan M.D. LAB MICROBIOLOGY - BLOOD ORD ERADARVIN Performing Organization Address City/State/ZIP Code Phon e Number [address] [place], [place] [address] [facility] [place] [address] Laboratory Medicine and Pathology [address] [place] [address] Dr. ARMSTRONG Hepatitis B Surface Antigen (08/19/2020 11:02 AM CDT) [facility] Signature HBs Antigen, S Negative Negative 08/19/2020 [facility] 9:37 PM CDT Specimen Anatomical Collection Method Collection Time Receive d Time (Source) Location / / Volume Laterality Blood (Blood, 08/19/2020 11:02 08/19/2020 5:50 Venous) AM CDT PM CDT Lubna Mcmillan M.D. LAB MICROBIOLOGY - BLOOD ORD ERABLES Performing Organization Address City/State/ZIP Code Phon e Number [place] [id number] [place], [place] [address] [facility] [place] [address] Laboratory Medicine and Pathology [address] [place] [address] Dr. ARMSTRONG (ABNORMAL) NT-Pro B-Type Natriuretic Peptide (BNP) (08/19/2020 11:02 AM CDT) athologist Signature NT-Pro BNP 1688 (H) <=144 pg/mL 08/19/2020 DTL 3:30 PM CDT Comment: NT-proBNP values less than 300 [...] n adults under 50 years of age. Specimen Anatomical Collection Method Collection Time Receive d Time (Source) Location / / Volume Laterality Blood (Blood, 08/19/2020 11:02 08/19/2020 Venous) AM CDT 11:25 AM CDT Lubna Mcmillan M.D. LAB BLOOD ADD-ON Performing Organization Address City/State/ZIP Code Phon e Number [facility] [address] [place], [place] [address] [facility] [place] [address] Laboratories-[employer] [facility] [employer] [facility] [address] Connective Tissue Diseases [place] (08/19/2020 11:02 AM CDT) athologist [facility] Antinuclear Ab, 0.2 <=1.0 08/20/2020 [facility] S (Negative) 12:33 PM CDT U Comment: ----ADDITIONAL INFORMATION---- Method: Enzyme-linked immunoassay using HEp-2 nuclear extract supplemented with purified antig ens. Cyclic Citrullinated <15.6 <20.0 (Negative) U 08/20/2020 10:49 AM [facility] Peptide Ab, S CDT Interpretation SEE COMMENT 08/20/2020 12:33 PM SDS C CDT Comment: Tests for antibodies to dsDNA and JULIANE an tigens are not performed automatically unless the KETURAH r esult is > or = 3.0 U. ??Studies performed at [facility] indicate that positive KETURAH results <3.0 U are rarely a ccompanied by positive second order tests. Specimen Anatomical Collection Method Collection Time Receive d Time (Source) Location / / Volume Laterality Blood (Blood, 08/19/2020 11:02 08/20/2020 7:35 Venous) AM CDT AM CDT Lubna Mcmillan M.D. LAB BLOOD ADD-ON Performing Organization Address City/State/ZIP Code Phon e Number [facility] [address] [place], [place] [address] [place] [address] [place] [address] Laboratory Medicine and Pathology [address] ARM[place] (ABNORMAL) Comprehensive Metabolic Panel (08/19/2020 11:02 AM CDT) P athologist Signature Potassium, S 4.2 3.6 - 5.2 08/19/2020 DTL mmol/L 3:30 PM CDT Sodium, S 141 135 - 145 08/19/2020 DTL mmol/L 3:30 PM CDT Chloride, S 102 98 - 107 08/19/2020 DTL mmol/L 3:30 PM CDT Bicarbonate, S 25 22 - 29 08/19/2020 DTL mmol/L 3:30 PM CDT Anion Gap 14 7 - 15 08/19/2020 DTL 3:30 PM CDT BUN (Blood Urea 21 6 - 21 08/19/2020 DTL Nitrogen), S mg/dL 3:30 PM CDT Creatinine 1.02 0.59 - 08/19/2020 DTL 1.04 mg/dL 3:30 PM CDT eGFR-Non 65 >=60 08/19/2020 DTL Black/ mL/min/BSA 3:30 PM CDT Burmese Comment: ----ADDITIONAL INFORMATION---- Estimated GFR calculated using the 2009 CKD_EPI creatinine equation. eGFR-Black/ 75 >=60 mL/min/BSA 2020 3:30 PM CDT DTL Comment: ----ADDITIONAL INFORMATION---- Estimated GFR calculated using the 2009 CKD_EPI creatinine equation. Calcium, Total, S 8.9 8.6 - 10.0 mg/dL 08/19/2020 3:30 PM CDT DTL Glucose, S 113 70 - 140 mg/dL 08/19/2020 3:30 PM CDT D TL Protein, Total, S 6.4 6.3 - 7.9 g/dL 08/19/2020 3:30 P M CDT DTL Albumin, S 3.7 3.5 - 5.0 g/dL 08/19/2020 3:30 PM CDT D TL Aspartate Aminotransferase 199 (H) 8 - 43 U/L 08/19/2020 3 :30 PM CDT DTL (AST), S Alkaline Phosphatase, S 155 (H) 35 - 104 U/L 08/19/2020 3: 30 PM CDT DTL Alanine Aminotransferase 182 (H) 7 - 45 U/L 08/19/2020 3:3 0 PM CDT DTL (ALT), S Bilirubin, Total, S 1.0 <=1.2 mg/dL 08/19/2020 3:30 PM CDT DTL Specimen Anatomical Collection Method Collection Time Receive d Time (Source) Location / / Volume Laterality Blood (Blood, 08/19/2020 11:02 08/19/2020 Venous) AM CDT 11:25 AM CDT Lubna Mcmillan M.D. LAB BLOOD ADD-ON Performing Organization Address City/State/ZIP Code Phon e Number [facility] - [address] [place], [place] [address] [facility] [place] [address] Laboratories-[employer] [facility] [employer] [facility] [employer] [facility] [address] [facility] (ABNORMAL) CBC with Differential, Blood (08/19/2020 11:02 AM CDT) [facility] gist Method Time Signature Hemoglobin 16.1 (H) 11.6 - 08/19/2020 DTL 15.0 g/dL 11:37 AM CDT Hematocrit 50.2 (H) 35.5 - 08/19/2020 DTL 44.9 % 11:37 AM CDT Erythrocytes 5.18 (H) 3.92 - 08/19/2020 DTL 5.13 11:37 AM CDT x10(12)/L MCV 96.9 78.2 - 08/19/2020 DTL 97.9 fL 11:37 AM CDT RBC Distrib Width 17.4 (H) 12.2 - 08/19/2020 DTL 16.1 % 11:37 AM CDT Platelet Count 153 (L) 157 - 371 08/19/2020 DTL x10(9)/L 11:37 AM CDT Leukocytes 6.1 3.4 - 9.6 08/19/2020 DTL x10(9)/L 11:37 AM CDT Neutrophils 4.11 1.56 - 08/19/2020 DTL 6.45 11:37 AM CDT x10(9)/L Lymphocytes 1.29 0.95 - 08/19/2020 DTL 3.07 11:37 AM CDT x10(9)/L Monocytes 0.56 0.26 - 08/19/2020 DTL 0.81 11:37 AM CDT x10(9)/L Eosinophils 0.14 0.03 - 08/19/2020 DTL 0.48 11:37 AM CDT x10(9)/L Basophils <0.03 0.01 - 08/19/2020 DTL 0.08 11:37 AM CDT x10(9)/L Specimen Anatomical Collection Method Collection Time Receive d Time (Source) Location / / Volume Laterality Blood (Blood, 08/19/2020 11:02 08/19/2020 Venous) AM CDT 11:26 AM CDT Lubna Mcmillan M.D. LAB BLOOD ADD-ON Performing Organization Address City/State/ZIP Code Phon e Number [facility] - [address] [place] [address] [facility] [place] [place] [address] Laboratories-[address] [place] Lung Ventilation and Perfusion (08/19/2020 10:34 [...] corresponds to atelectasis and/scarring [facility]. No mismatch defects [...] Hypertension ( HCC) Shortness Of Breath Fatigue Other Secondary Pulmonary Hypertension ( HCC) Shortness Of Breath Other Secondary Pulmonary Hypertension ( HCC) Shortness Of Breath Other Secondary Pulmonary Hypertension ( HCC) Shortness Of Breath documented in this encounter Care Teams Manpower Development Advisor Relationship Specialty Start Date End Date Ro Norton APRN, C.N.P., PCP - General Family Medicine D.N.P. [address] [phone] documented as of this encounter
--- OUTSIDE RECORDS SUMMARY | 2021-12-31 07:53 | XMS_ITS | Encounter Summary ---
:1970 Author Organization [facility] Address [address] [place] [address] Care Team Providers Name Role Phone Ro Norton APRN, C.N.P., D.N.P. Primary Care Provider Encounter Details Date Type Department Care Team Description 08/06/2020 Orders Only RST CCM Lubna Mcmillan Other Secondary [address] [facility] Michael Ansari Pulmonary Hypertension [place], [place] [address] [facility] (HCC) (Primary Dx) [phone] [place] [address] Social History Tobacco Use Types Packs/Day Years [...] do you attend spiritism or Never 2021 temple services? Do you [...] on filedocumented as of this encounter Results SARS CoV-2 RNA, PCR, Varies Asymptomatic (08/27/2020 8:37 AM CDT) [facility] Method Time Signature SARS CoV-2 Swab, 08/27/2020 [facility]TL RNA, PCR, Nasopharynx 12:08 PM Source CDT SARS CoV-2 Undetected Undetected 08/27/2020 DTL RNA, PCR 12:08 PM CDT Comment: SARS-CoV-2 RNA absent. This result does not rule out COVID-19 in the patient, as the sensitivity of the test depends o n the timing of the specimen collection and quality of the specimen. Result should be correlated with patient's history and clinical presentat ion. ----ADDITIONAL INFORMATION---- This RT-PCR test has received Emergency Use Authorization (EUA) by the U.S. Food and Drug Administration an d is used per marine railway operator's instructions. Performance characteristics were verified by [facility] in a manner consistent with CLIA requirements. Visit the CDC website: https://www.cdc.g ov/coronavirus/ for the most recent guidelines on Coron avirus testing. Fact Sheet for Healthcare Providers: https://www.fda.gov/media/749117/downloa d Fact Sheet for Patients: https://www.fda.gov/media/754327/downloa d Specimen Anatomical Collection Method Collection Time Receive d Time (Source) Location / / Volume Laterality Varies 08/27/2020 8:37 AM 9:11 (Nasopharynx) CDT AM CDT Lubna Mcmillan M.D. LAB MICROBIOLOGY - GENERAL O RDERABLES Performing Organization Address City/State/ZIP Code Phon e Number [facility] - [address] [place], [place] [address] [facility] [place] [address] Laboratories-[facility] [address] documented in this encounter Visit Diagnoses Diagnosis Other Secondary Pulmonary Hypertension ( HCC) - Primary documented in this encounter Care Teams Farmworker Fur Relationship Specialty Start Date End Date Ro Norton APRN, C.N.P., PCP - General Family Medicine D.N.P. [address] [phone] documented as of this encounter
--- OUTSIDE RECORDS SUMMARY | 2021-12-31 07:53 | XMS_ITS | Encounter Summary ---
:1970 Author Organization [facility] Address [address] [place] [address] Care Team Providers Name Role Phone Ro Norton APRN, C.N.P., D.N.P. Primary Care Provider Encounter Details Date Type Department Care Team Description 06/23/2020 Orders Only [facility] PCP [facility] MNT Ro Norton APRN, C.N.P., D.N.P. [id number] [place] [phone] (Wo rk) Social History Tobacco Use Types [...] do you attend voodoo or Never 2021 taoism services? Do you belong to any clubs [...] on filedocumented in this encounter Care Teams Engineering Test Mechanic Relationship Specialty Start Date End Date Ro Norton APRN, C.N.P., PCP - General Family Medicine D.N.P. [address] [phone] documented as of this encounter
--- OUTSIDE RECORDS SUMMARY | 2021-12-31 07:53 | XMS_ITS | Encounter Summary ---
:1970 Author Organization [facility] Address [address] [place] [address] Care Team Providers Name Role Phone Ro Norton APRN C.N.P., D.N.P. Primary Care Provider Encounter Details Date Type Department Care Team Description 06/29/2020 E-Visit [facility] Express Care Lennie Miller, RE: Express Care Online at the [facility] on MORGAN, C.N.P., for Seasonal Allergies the 4th Floor M.S.N. [address] [facility] [address] [place] [address] [place], [place] [phone] Social History Tobacco Use Types Packs/Day Years [...] or relatives? How often do you attend mosque or Never 2021 zoroastrianism services? Do you belong to any clubs or No 02/25/2021 organizations such as mosque groups, unions, fraternal or athletic groups, or [...] as of this encounter Visit Diagnoses Diagnosis Sinusitis - Primary Rhinitis Allergic documented in this encounter Care Teams Tooth Cutter Clutch Relationship Specialty Start Date End Date Ro Norton APRN, C.N.P., PCP - General Family Medicine D.N.P. [address] [phone] documented as of this encounter
--- OUTSIDE RECORDS SUMMARY | 2021-12-31 07:53 | XMS_ITS | Encounter Summary ---
:1970 Author Organization [facility] Address [address] [place] [address] Care Team Providers Name Role Phone Ro Norton APRN C.N.P., D.N.P. Primary Care Provider Encounter Details Date Type Department Care Team Description 08/19/2020 Hospital Encounter Department of Lubna Mcmillan Secondary Pulmonary Hypertension (HCC); Laboratory Medicine Michael Ansari Shortness Of Breath and Pathology, [address] [place] [address], [address] [facility] [address] [place] [phone] [place] [address] (Work) [place], [place] [phone] [address] (Fax) [phone] Social History Tobacco Use Types Packs/Day Years [...] do you attend rastafarian or Never 2021 restoration services? Do you belong to any clubs [...] Name Priority Date/Time Associated Diagnosis Comme nts HIV-1/-2 AG AND AB Routine 08/19/2020 11:02 Other Secondary Re sults for this SCREEN, PLASMA AM CDT Pulmonary procedure are in Hypertension (HC C) the results Shortness Of Breath section. HCV RNA DETECT/QUANT Routine 08/19/2020 11:02 Res ults for this AM CDT procedure are i n the results section. HCV AB W/REFLEX TO HCV Routine 08/19/2020 11:02 Other Secondar y Results for this PCR, S AM CDT Pulmonary procedure are i n Hypertension (HC C) the results Shortness Of Breath section. NT-PRO B-TYPE Routine 08/19/2020 11:02 Other Secondary Results for this NATRIURETIC PEPTIDE AM CDT Pulmonary procedur e are in (BNP), S Hypertension (HC C) the results Shortness Of Breath section. CONNECTIVE TISSUE Routine 08/19/2020 11:02 Other Secondary Res ults for this DISEASE CASCADE, AM CDT Pulmonary procedure a re in SHAHNAZ, S Hypertension (HC C) the results Shortness Of Breath section. HBC TOTAL AB, SERUM Routine 08/19/2020 11:02 Other Secondary R esults for this AM CDT Pulmonary procedure are i n Hypertension (HC C) the results Shortness Of Breath section. HBS ANTIBODY, SERUM Routine 08/19/2020 11:02 Other Secondary R esults for this AM CDT Pulmonary procedure are i n Hypertension (HC C) the results Shortness Of Breath section. HEPATITIS B SURFACE Routine 08/19/2020 11:02 Other Secondary R esults for this ANTIGEN AM CDT Pulmonary procedure are i n Hypertension (HC C) the results Shortness Of Breath section. CBC WITH DIFFERENTIAL, Routine 08/19/2020 11:02 Other Secondar y Results for this B AM CDT Pulmonary procedure are i n Hypertension (HC C) the results Shortness Of Breath section. COMPREHENSIVE Routine 08/19/2020 11:02 Other Secondary Results for this METABOLIC PANEL, S/P AM CDT Pulmonary procedu re are in Hypertension (HC C) the results Shortness Of Breath section. documented in this encounter Results (ABNORMAL) HCV RNA Detect / Quant, Serum (08/19/2020 11:02 AM CDT) [facility] Method Time Signature HCV RNA [id number] (A) Undetected 08/20/2020 [facility] Detect/Quant, IU/mL 4:16 PM CDT S Comment: Result in log IU/mL is 6.76. ----ADDITIONAL INFORMATION---- The quantification range of this assay i s 15 to 100,000,000 IU/mL (1.18 log to 8.00 log IU/mL). Testing was performe d using the sandra HCV test ([employer] with the sandra 6800 System. Specimen Anatomical Collection Method Collection Time Receive d Time (Source) Location / / Volume Laterality Blood 08/19/2020 11:02 08/19/2020 AM CDT 11:10 PM CDT Lubna Mcmillan M.D. LAB MICROBIOLOGY - BLOOD ORD ERABLES Performing Organization Address City/State/ZIP Code Phon e Number [facility] [address] [place], [place] [address] SUPPORT CENTER [facility] [place] [address] Laboratory Medicine and Pathology [address] [place] [address] Dr. ARMSTRONG HIV-1/-2 Ag and Ab Screen, Plasma (08/19/2020 11:02 AM CDT) athologist Signature HIV-1/-2 Ag Negative Negative 08/19/2020 [facility] and Ab Screen, 9:25 PM CDT P [...] Organization Address City/State/ZIP Code Phon e Number [facility] [address] [place], [place] [address] SUPPORT [facility] [place] [address] Laboratory Medicine and Pathology [facility] [address] ARMSTRONG (ABNORMAL) HCV Ab w/Reflex to HCV PCR, Serum (08/19/2020 11:02 AM CDT) P athologist Signature HCV Ab, S Reactive (A) Negative 08/19/2020 [facility] 10:10 PM CDT Comment: Supplemental testing for HCV RNA is orde red to rule out active HCV infection. Spxwai-kv-xxmabh ratio is >=8.00. Specimen Anatomical Collection Method Collection Time Receive d Time (Source) Location / / Volume Laterality Blood (Blood, 08/19/2020 11:02 08/19/2020 5:50 Venous) AM CDT PM CDT Lubna Mcmillan M.D. LAB MICROBIOLOGY - BLOOD ORD ERADARVIN Performing Organization Address City/State/ZIP Code Phon e Number [facility] [address] [place] [phone] 05 SUPPORT [facility] [place] [address] Laboratory Medicine and Pathology [address] [place] [address] Dr. ARMSTRONG (ABNORMAL) HBc Total Ab, Serum (08/19/2020 11:02 AM CDT) [facility] Method [facility] Signature HBc Total Ab, Positive (A) Negative 08/19/2020 [facility] S 9:53 PM CDT Comment: If clinically [...] Organization Address City/State/ZIP Code Phon e Number [facility] [address] [place] [place] [address] Laboratory Medicine and Pathology [address] [place] [address] Dr. ARMSTRONG HBs Antibody, Serum (08/19/2020 11:02 AM CDT) athologist [facility] HBs Antibody, Negative 08/19/2020 [facility] S 9:47 PM CDT Comment: Patient is presumed to be not immune to infection with HBV. ----REFERENCE VALUE---- Unvaccinated: Negative Vaccinated: Positive HBs Antibody, Quantitative, S <5.0 mIU/mL 08/19/2020 9:47 PM CDT [facility] Comment: ----REFERENCE VALUE---- Unvaccinated: <5.0 Vaccinated: >=12.0 Specimen Anatomical Collection Method Collection Time Receive d Time (Source) Location / / Volume Laterality Blood (Blood, 08/19/2020 11:02 08/19/2020 5:50 Venous) AM CDT PM CDT Lubna Mcmillan M.D. LAB MICROBIOLOGY - BLOOD ORD ERABLES Performing Organization Address City/State/ZIP Code Phon e Number [facility] [address] [place] [address] [place] [address] Laboratory Medicine and Pathology [address] [place] [address] Dr. ARMSTRONG Hepatitis B Surface Antigen (08/19/2020 11:02 AM CDT) [facility] HBs Antigen, S Negative Negative 08/19/2020 [facility] 9:37 PM CDT Specimen Anatomical Collection Method Collection Time Receive d Time (Source) Location / / Volume Laterality Blood (Blood, 08/19/2020 11:02 08/19/2020 5:50 Venous) AM CDT PM CDT Lubna Mcmillan M.D. LAB MICROBIOLOGY - BLOOD ORD ERABLES Performing Organization Address City/State/ZIP Code Phon e Number [facility] [address] [place] [address] [place] [address] Laboratory Medicine and Pathology [address] [place] [address] Dr. ARMSTRONG (ABNORMAL) NT-Pro B-Type Natriuretic Peptide [...] Organization Address City/State/ZIP Code Phon e Number [facility] - [address] [place] [address] [place] [address] [facility] 200 [facility] Connective Tissue Diseases [place] (08/19/2020 11:02 AM CDT) athologist Signature Antinuclear Ab, 0.2 <=1.0 08/20/2020 [facility] S (Negative) 12:33 PM CDT U Comment: ----ADDITIONAL INFORMATION---- Method: Enzyme-linked immunoassay using HEp-2 nuclear extract supplemented with purified antig ens. Cyclic Citrullinated <15.6 <20.0 (Negative) U 08/20/2020 10:49 AM [facility] Peptide Ab, S CDT Interpretation SEE COMMENT 08/20/2020 12:33 PM SDS C CDT Comment: Tests for antibodies to dsDNA and JULIANE an tigens are not performed automatically unless the KETURAH r esult is > or = 3.0 U. ??Studies performed at [facility] indicate that positive KETURAH results <3.0 U are rarely a ccompanied by positive second order tests. Specimen Anatomical Collection Method Collection Time Receive d Time (Source) Location / / Volume Laterality Blood (Blood, 08/19/2020 11:02 08/20/2020 7:35 Venous) AM CDT AM CDT Lubna Mcmillan M.D. LAB BLOOD ADD-ON Performing Organization Address City/State/ZIP Code Phon e Number [facility] [address] [place], [place] [address] SUPPORT CENTER [facility] [place] [address] Laboratory Medicine and Pathology [address] [...] 08/19/2020 [facility] Black/ mL/min/BSA 3:30 PM CDT [place] Comment: ----ADDITIONAL INFORMATION---- Estimated GFR calculated using [...] M.D. LAB BLOOD ADD-ON Performing Organization Address City/State/[facility] Code Phon e Number [facility] - [address] [place] [phone] [place] [address] [facility] 200 [facility] (ABNORMAL) CBC with Differential, Blood (08/19/2020 11:02 AM CDT) [facility] gist Method Time Signature Hemoglobin 16.1 (H) [...] Organization Address City/State/ZIP Code Phon e Number [facility] - [address] [place], [place] [address] [facility] [place] [address] [facility] [address] documented in this encounter Visit Diagnoses Diagnosis Other Secondary Pulmonary Hypertension ( HCC) Shortness Of Breath documented in this encounter Care Teams Food Production Manager Relationship Specialty Start Date End Date Ro Norton APRN, C.N.P., PCP - General Family Medicine D.N.P. [address] [phone] documented as of this encounter
--- OUTSIDE RECORDS SUMMARY | 2021-12-31 07:53 | XMS_ITS | Encounter Summary ---
:1970 Author Organization [facility] Address [address] [place] [address] Care Team Providers Name Role Phone Ro Norton APRN, C.N.P., D.N.P. Primary Care Provider Encounter Details Date Type Department Care Team Description 07/16/2020 Clinical Communication Division of Pulmonary [facility] in [place] Faust M.D. [address] [place] [address] [phone] Social History Tobacco Use Types Packs/Day Years [...] do you attend christian or Never 2021 confucianism services? Do you [...] Telephone Encounter - Lubna Mcmillan M.D. - 07/21/2020 2:50 PM CDT Thanks. Can we reach out to her again to see when she would like to reschedule? Telephone Encounter - Margy Porter - 07/16/2020 8:05 AM CDT Ms. Flores no-showed her COVID swab as scheduled 07/15 in [place]. I left a message for her to call to reschedule. She will need to come to [place] for a rapid COVID swab today 07/16 in order to proceed as scheduled with her testing tomorrow 07/17. Is she still able to proceed with the cath for 07/21 if this testing cannot be completed beforehand? Regardless, she will need to get COVID swabbed this weekend in order to get cathed on Monday. Otherwise, we will need to look at pushing out her entire schedule in order to accommodate the testing prior to the cath. documented in this encounter Plan of Treatment Not on filedocumented as of this encounter Visit Diagnoses Not on filedocumented in this encounter Additional Health Concerns Infection Onset Date Last Indicated Resolved Time COVID19 Pending 07/14/2020 07/14/2020 08/03/2020 4:45 AM CDT documented as of this encounter Care Teams Guest Service Aide Relationship Specialty Start Date End Date Ro Norton APRN, C.N.P., PCP - General Family Medicine D.N.P. [address] [phone] documented as of this encounter
--- OUTSIDE RECORDS SUMMARY | 2021-12-31 07:53 | XMS_ITS | Encounter Summary ---
:1970 Author Organization [facility] Address [address] [place] [address] Care Team Providers Name Role Phone Ro Norton APRN, C.N.P., D.N.P. Primary Care Provider Encounter Details Date Type Department Care Team Description 08/06/2020 Clinical Communication Division of Pulmonary [facility] in [place] Faust M.D. [address] [place] [address] [phone] Social History Tobacco Use Types Packs/Day Years [...] or relatives? How often do you attend mu-ism or Never 2021 judaism services? Do you belong to any clubs or No 02/25/2021 organizations such as mu-ism groups, unions, fraternal or athletic groups, or [...] Telephone Encounter - Lubna Mcmillan M.D. - 08/06/2020 3:46 PM CDT Thanks. Ordered for August 28. I can see as return at 4 Telephone Encounter - Hermila Nogueira - 08/06/2020 3:[address] Mcmillan, Please place the order for the catheterization any day between the and 28 of August for Mrs. Schulz. I have already scheduled for the cath education on August 21 and all other orders prior to that. I will schedule a return visit with you the afternoon after the procedure. Thank you Hermila documented in this encounter Plan of Treatment Not on filedocumented as of this encounter Visit Diagnoses Not on filedocumented in this encounter Care Teams Social Group Worker Relationship Specialty Start Date End Date Ro Norton APRN, C.N.P., PCP - General Family Medicine D.N.P. [address] [phone] (work) documented as of this encounter
--- OUTSIDE RECORDS SUMMARY | 2021-12-31 07:53 | XMS_ITS | Encounter Summary ---
:1970 Author Organization [facility] Address [address] [place] [address] Care Team Providers Name Role Phone Ro Norton APRN, C.N.P., D.N.P. Primary Care Provider Reason for Visit Reason Comments Social Work - General consult RST Order for [facility] Encounter Details Date Type Department Care Team Description 07/13/2020 Clinical Communication Department of Ro Norton Work - Family Medicine, MORGAN Ansari, General con sult RST [place] C.N.P., D.N.P. (Order for [facility], in [address] [address] [place], [place] [phone] [address] (Work) [phone] Social History Tobacco Use Types Packs/Day Years [...] do you attend moravian or Never 2021 christian services? Do you [...] this encounter Miscellaneous Notes Telephone Encounter - Lemuel Alfonso - 07/13/2020 10:33 AM CDT Thank you for your order. We have made our final attempt to contact this patient and have been unable to reach them. This order has been closed but may be reopened within 3 months of the order date. If the patient is interestedin scheduling an appointment, please have the patient contact us at [phone] and we will reinstate the order at that time. Sincerely, [facility] Online Services for Referring Providers Appointment Office documented in this encounter Plan of Treatment Not on filedocumented as of this encounter Visit Diagnoses Not on filedocumented in this encounter Additional Health Concerns Infection Onset Date Last Indicated Resolved Time COVID19 Pending 07/14/2020 07/14/2020 08/03/2020 4:45 AM CDT documented as of this encounter Care Teams Harpoon Engagement Planning Operator Relationship Specialty Start Date End Date Ro Norton, MORAGN, C.N.P., PCP - General Family Medicine D.N.P. [address] [phone] documented as of this encounter
--- OUTSIDE RECORDS SUMMARY | 2021-12-31 07:54 | XMS_ITS | Encounter Summary ---
:1970 Author Organization [facility] Address [address] [place] [address] Care Team Providers Name Role Phone Ro Norton APRN, C.N.P., D.N.P. Primary Care Provider Reason for Visit Reason Comments COVID Inquiry Encounter Details Date Type Department Care Team Description 10/29/2019 Clinical Communication Hospital Outpatient Christopher Amin COVID Inquiry Procedure Center in , R.N. [place], [place] [phone] [address] [facility] (Work) [place] [address] Social History Tobacco Use Types Packs/Day Years [...] or relatives? How often do you attend judaism or Never 2021 religion services? Do you belong to any clubs or No 02/25/2021 organizations such as judaism groups, unions, fraternal or athletic groups, or [...] or slept in a halfway (including now)? Sex Assigned at Date Recorded Female 10/14/2020 12:54 PM CDT documented as of this encounter Plan of Treatment Not on filedocumented as of this encounter Visit Diagnoses Not on filedocumented in this encounter Care Teams Cassandra Developer Relationship Specialty Start Date End Date Ro Norton APRN, C.N.P., PCP - General Family Medicine D.N.P. [address] [phone] documented as of this encounter
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
--- OUTSIDE RECORDS SUMMARY | 2021-12-31 07:54 | XMS_ITS | Encounter Summary ---
:1970 Author Organization [facility] Address [address] [place] [address] Care Team Providers Name Role Phone Ro Norton APRN, C.N.P., D.N.P. Primary Care Provider Reason for Visit Reason Comments COVID Inquiry Encounter Details Date Type Department Care Team Description 11/12/2019 Clinical Communication Hospital Outpatient Rebecca Upton, COVID Inquiry Procedure Center [place], [place] [phone] [address] [facility] (Work) [place] [address] Social History Tobacco Use Types [...] do you attend gnosticism or Never 2021 anglican services? Do you [...] or slept in a chcf (including now)? Sex Assigned at Date Recorded Female 10/14/2020 12:54 PM CDT documented as of this encounter Plan of Treatment Not on filedocumented as of this encounter Visit Diagnoses Not on filedocumented in this encounter Care Teams Aircraft Armament Mechanic Relationship Specialty Start Date End Date Ro Norton APRN, C.N.P., PCP - General Family Medicine D.N.P. [address] [phone] documented as of this encounter
--- OUTSIDE RECORDS SUMMARY | 2021-12-31 07:54 | XMS_ITS | Encounter Summary ---
:1970 Author Organization [facility] Address [address] [place] [address] Care Team Providers Name Role Phone Ro Norton APRN, C.N.P., D.N.P. Primary Care Provider Encounter Details Date Type Department Care Team Description 05/07/2020 Orders Only [facility] PCP [facility] Sa rosalinda Erickson M.D. [address] [place], [place] [phone] (Wo rk) Social History Tobacco Use Types [...] do you attend denominational or Never 2021 oriental orthodox services? Do you belong to any clubs [...] on filedocumented in this encounter Care Teams Transfusion Nurse Relationship Specialty Start Date End Date Ro Norton APRN, C.N.P., PCP - General Family Medicine D.N.P. [address] [phone] documented as of this encounter
--- OUTSIDE RECORDS SUMMARY | 2021-12-31 07:54 | XMS_ITS | Encounter Summary ---
:1970 Author Organization [facility] Address [address] [place] [address] Care Team Providers Name Role Phone Ro Norton APRN C.N.P., D.N.P. Primary Care Provider Encounter Details Date Type Department Care Team Description 12/13/2019 Hospital Encounter Department of Angelita Buchanan [facility] Radiology, [facility] C.N.P., M.S.N. [place], [place] [address] [facility] [address] [place] [phone] Social History Tobacco Use Types Packs/Day Years [...] do you attend advent or Never 2021 holiness services? Do you [...] needed for wheezing or shortness of breath. tiotropium (Spiriva with Inhale 1 capsule (18 90 capsule 3 0 05/07/2019 06/22/2020 HandiHaler) 18 mcg mcg total) daily. inhalation capsule documented as of this encounter Plan of Treatment Not on filedocumented as of this encounter Procedures Procedure Name Priority Date/Time Associated Comments Diagnosis DX KNEE LEFT 2 RAD - Routine 12/13/2019 8:31 Fracture Tibial Result s for this VIEWS (most inpatients AM CDT Plateau Closed procedure are in and all Initial Left the results outpatients) section. documented in this encounter Results DX Knee Left 2 Views (12/13/2019 8:31 AM CDT) Anatomical Region Laterality Modality Lower Extremity, Knee, Musculoskeletal RST LOS, Left Digital Radiography Musculoskeletal ARZ LOS, Muskuloskeletal FLA LOS Specimen (Source) Anatomical Collection Method Collection Time Re ceived Time Location / / Volume Laterality 12/13/2019 8:41 AM CDT Impressions 12/13/2019 8:42 AM CDT Comminuted intra-articular fracture proximal left tibia with interposition cement and medial plate an d screw fixation. Fracture lines are still visible. Lateral subluxation of th e tibia the knee joint. Knee joint effusion. Small cement fragments in the soft tissues along the medial aspect of the proximal leg. Osteopenia. Narrative 12/13/2019 8:42 AM CDT EXAM: ??DX KNEE LEFT 2 VIEWS Procedure Note Nitza Hernández M.D. - 12/13/2019Format ting of this note might be different from the original. EXAM: DX KNEE LEFT 2 VIEWS IMPRESSION: Comminuted intra-articular fracture prox imal left tibia with interposition cement and medial plate an d screw fixation. Fracture lines are still visible. Lateral subluxation of th e tibia the knee joint. Knee joint effusion. Small cement fragments in the soft tissues along the medial aspect of the proximal leg. Osteopenia. Angelita Buchanan APRN C.N.P., M.S.N. IMG DIAGNOSTIC QUE GING PROCEDURES documented in this encounter Visit Diagnoses Diagnosis Fracture Tibial Plateau Closed Initial L eft documented in this encounter Care Teams Utility Operator Relationship Specialty Start Date End Date Ro Norton APRN, C.N.P., PCP - General Family Medicine D.N.P. [address] [phone] documented as of this encounter
--- OUTSIDE RECORDS SUMMARY | 2021-12-31 07:54 | XMS_ITS | Encounter Summary ---
:1970 Author Organization [facility] Address [address] [place] [address] Care Team Providers Name Role Phone Ro Norton APRN, C.N.P., D.N.P. Primary Care Provider Encounter Details Date Type Department Care Team Description 11/13/2019 Hospital Encounter Department of Yvon iDll Rib Multiple Radiology, Jose Liao APRN, Closed [facility], in C.N.P., M.S.N. [place], [place] [address] [facility] [address] [place] [phone] Social History Tobacco Use Types Packs/Day Years [...] do you attend latter-day or Never 2021 temple services? Do you [...] Take 1 capsule by 0 mouth daily. acetaminophen Take 2 tablets (1,000 0 10/27/2019 12/17/2020 (TYLENOL) 500 mg mg total) by mouth tablet every 6 (six) hours as needed for pain. 1st level for pain control albuterol inhaler Inhale 2 puffs 4 1 Inhaler 2 05/07/2019 0 06/19/2020 (four) times a day. docusate sodium Take 2 capsules (200 120 capsule 1 0 12/13/2019 (COLACE) 100 mg mg total) by mouth 2 capsule (two) times a day. While on narcotic pain medications to prevent constipation enoxaparin (LOVENOX) Inject 0.4 mL (40 mg 24 Syringe 0 10/2612/13/2019 40 mg/0.4 mL injection total) under the skin daily for 24 days. gabapentin (NEURONTIN) Take 1 capsule (300 90 capsule 0 09/07/201912/13/2019 300 mg capsule mg total) by mouth 3 (three) times a day. ipratropium-albuteroL Take 3 mL by 270 mL 3 05/07/2019 0 03/09/2021 (DUO-NEB) 0.5-2.5 mg/3 nebulization 4 (four) mL nebulizer solution times a day as needed for wheezing or shortness of breath. lidocaine (Salonpas, Apply 1 patch 0 10/27/2019 1 lidocaine,) 4 % topically every 12 adhesive (twelve) hours as patch,medicated needed (chest wall pain). melatonin 3 mg tablet Take 1 tablet (3 mg 0 10/2612/13/2019 total) by mouth at bedtime. oxyCODONE (ROXICODONE) Take 1 tablet (15 mg 45 tablet 0 07/201912/13/2019 15 mg immediate total) by mouth every release 4 (four) hours as tabletIndications: needed for severe Prolonged Acute pain or score 7-10 of Pain/Traumatic Injury 10 Indication: Prolonged Acute Pain/Traumatic Injury. polyethylene glycol Take 1 packet (17 g 0 020 12/13/2019 (MIRALAX) 17 gram total) by mouth daily powder packet as needed for constipation. Dissolve each 17 g dose in 240 mLs (8 ounces) of beverage. sennosides (SENOKOT) Take 2 tablets (17.2 60 tablet 0 10/2612/13/2019 8.6 mg tablet mg total) by mouth at bedtime. While on narcotic pain medications to prevent constipation tiotropium (Spiriva Inhale 1 capsule (18 90 capsule 3 201906/22/2020 with HandiHaler) 18 mcg total) daily. mcg inhalation capsule traMADoL (ULTRAM) 50 Take 1 tablet (50 mg 50 tablet 0 10/2612/13/2019 mg tabletIndications: total) by mouth every Prolonged Acute 6 (six) hours as Pain/Traumatic Injury needed for pain Indications: Prolonged Acute Pain/Traumatic Injury. documented as of this encounter Plan of Treatment Not on filedocumented as of this encounter Procedures Procedure Name Priority Date/Time Associated Comments Diagnosis DX CHEST AP OR PA RAD - Routine 11/13/2019 8:20 Fracture Rib Result s for this AND LATERAL 2 (most inpatients AM CDT Multiple Closed procedu re are in VIEWS and all Initial Right the results outpatients) section. documented in this encounter Results DX Chest AP or PA and Lateral 2 Views (11/13/2019 8:20 AM CDT) Anatomical Region Laterality Modality Chest, Thoracic RST LOS, Thoracic ARZ LOS, Thoracic N/A Digital Radiography FLA LOS Specimen (Source) Anatomical Collection Method Collection Time Re ceived Time Location / / Volume Laterality 11/13/2019 8:31 AM CDT Impressions 11/13/2019 8:32 AM CDT Sternotomy. Marked prominence of the central pulmonary arteries. Patchy infiltrate in the left base later ally. Linear atelectasis right mid and lower lung. Right rib and sternal fractu res better demonstrated on prior CT exam. Narrative 11/13/2019 8:32 AM CDT EXAM: ??DX CHEST AP OR PA AND LATERAL 2 VIEWS Procedure Note Mason Aaron M.D. - 11/13/2019Format ting of this note might be different from the original. EXAM: DX CHEST AP OR PA AND LATERAL 2 EWS IMPRESSION: Sternotomy. Marked prominence of the eric tral pulmonary arteries. Patchy infiltrate in the left base later ally. Linear atelectasis right mid and lower lung. Right rib and sternal fractu res better demonstrated on prior CT exam. Ninoska Cross APRNN.Taylor., M.S.N. IMG DIAGNOSTIC IMAG ING PROCEDURES documented in this encounter Visit Diagnoses Diagnosis Fracture Rib Multiple Closed Initial Rig ht documented in this encounter Care Teams Medical Library Assistant Relationship Specialty Start Date End Date Ro Norton APRN C.N.P., PCP - General Family Medicine D.N.P. [address] [phone] documented as of this encounter
--- OUTSIDE RECORDS SUMMARY | 2021-12-31 07:54 | XMS_ITS | Encounter Summary ---
:1970 Author Organization [facility] Address [address] [place] [address] Care Team Providers Name Role Phone Ro Norton APRN, C.N.P., D.N.P. Primary Care Provider Encounter Details Date Type Department Care Team Description 01/07/2020 Clinical Communication Department of Raudel Lewis Orthopedic Surgery in [place], [place] [address] [facility] [address] [place] [phone] Social History Tobacco Use Types Packs/Day Years [...] or relatives? How often do you attend buddhism or Never 2021 mosque services? Do you belong to any clubs or No 02/25/2021 organizations such as buddhism groups, unions, fraternal or athletic groups, or [...] on filedocumented in this encounter Care Teams Motel Clerk Relationship Specialty Start Date End Date Ro Norton APRN, C.N.P., PCP - General Family Medicine D.N.P. [address] [phone] documented as of this encounter
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
--- OUTSIDE RECORDS SUMMARY | 2021-12-31 07:54 | XMS_ITS | Encounter Summary ---
:1970 Author Organization [facility] Address [address] [place] [address] Care Team Providers Name Role Phone Ro Norton APRN C.N.PRaffy, D.N.P. Primary Care Provider Encounter Details Date Type Department Care Team Description 12/24/2019 Orders Only Department of [place], Angelita Conde, Fracture T ibial Orthopedic Surgery in [place], C.N.PRaffy, Plate au Closed [place], [place] M.S.N. Subsequent Left [address] (Primary Dx) [place] [phone] Social History Tobacco Use Types Packs/Day Years [...] do you attend rastafarian or Never 2021 restorationism services? Do you [...] Primary documented in this encounter Care Teams Aquatics Group Fitness Instructor Relationship Specialty Start Date End Date Ro Norton APRN, C.N.P., PCP - General Family Medicine D.N.P. [address] [phone] documented as of this encounter
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
--- OUTSIDE RECORDS SUMMARY | 2021-12-31 07:54 | XMS_ITS | Encounter Summary ---
:1970 Author Organization [facility] Address [address] [place] [address] Care Team Providers Name Role Phone Ro Norton APRN, C.N.P., D.N.P. Primary Care Provider Encounter Details Date Type Department Care Team Description 01/21/2020 Hospital Encounter Department of [place], Fracture Tibial Radiology, Jose Vazquez M.D., [facility], in M.E. Subsequent Left [place], [facility] [address] [place], [place] [address] [facility] [address] [place], [place] [phone] (Work) [phone] Social History Tobacco Use Types Packs/Day Years [...] do you attend pentecostalism or Never 2021 sikhism services? Do you [...] Date/Time Associated Comments Diagnosis DX KNEE LEFT RAD - Routine 01/21/2020 9:29 Fracture Tibial Results for this STANDING 1-2 (most inpatients AM COMMERCIAL ACCOUNT EXECUTIVE Plateau Closed procedure are in VIEWS and all Subsequent Left the results outpatients) section. documented in this encounter Results DX Knee Left Standing 1-2 Views (01/21/2020 9:29 AM COMMERCIAL ACCOUNT EXECUTIVE) Anatomical Region Laterality Modality Lower Extremity, Knee, Musculoskeletal RST LOS, Left Digital Radiography Musculoskeletal ARZ LOS, Muskuloskeletal FLA LOS Specimen (Source) Anatomical Collection Method Collection Time Re ceived Time Location / / Volume Laterality 01/21/2020 9:32 AM COMMERCIAL ACCOUNT EXECUTIVE Impressions 01/21/2020 9:37 AM COMMERCIAL ACCOUNT EXECUTIVE Interposition cement and medial plate and screw fixation across a healing comminuted intra-articular left tibial plateau fracture. No change in alignment. Narrative 01/21/2020 9:37 AM COMMERCIAL ACCOUNT EXECUTIVE EXAM: ??DX KNEE LEFT STANDING 1-2 VIEWS Procedure Note Sergei Montiel M.D. - 01/21/2020Form atting of this note might be different from the original. EXAM: DX KNEE LEFT STANDING 1-2 VIEWS IMPRESSION: Interposition cement and medial plate an d screw fixation across a healing comminuted intra-articular left tibial plateau fracture. No change in alignment. Kelli Mojica M.D., M.E. IMG DIAGNOSTIC IMAGING PROCEDURES documented in this encounter Visit Diagnoses Diagnosis Fracture Tibial Plateau Closed Subsequen t Left documented in this encounter Care Teams Finished Metal Repairer Relationship Specialty Start Date End Date Ro Norton APRN, C.N.P., PCP - General Family Medicine D.N.P. [address] [phone] documented as of this encounter
--- OUTSIDE RECORDS SUMMARY | 2021-12-31 07:54 | XMS_ITS | Encounter Summary ---
:1970 Author Organization [facility] Address [address] [place] [address] Care Team Providers Name Role Phone Ro Norton APRN, C.N.P., D.N.P. Primary Care Provider Reason for Visit Reason Comments COVID Inquiry Encounter Details Date Type Department Care Team Description 12/12/2019 Clinical Communication Hospital Outpatient Rebecca Upton, COVID Inquiry Procedure Center in [place], [place] [phone] [address] [facility] (Work) [place] [address] Social History Tobacco Use Types [...] do you attend zoroastrian or Never 2021 yazidism services? Do you [...] on filedocumented in this encounter Care Teams Customizer Relationship Specialty Start Date End Date Ro Norton APRN, C.N.P., PCP - General Family Medicine D.N.P. [address] [phone] documented as of this encounter
--- OUTSIDE RECORDS SUMMARY | 2021-12-31 07:54 | XMS_ITS | Encounter Summary ---
:1970 Author Organization [facility] Address [address] [place] [address] Care Team Providers Name Role Phone Ro Norton APRN C.N.Kirsty, D.N.P. Primary Care Provider Reason for Referral Outpatient (Routine) - Closed Specialty Diagnoses / Procedures Referred By Contact Refer red To Contact Orthopedic Surgery Kelli Mojica [facility] M.D., M.E. [address] [place] [phone] Referral ID Status Reason Start Date Expiration Date Visits Requ ested Visits Authorized [id number] Closed 12/13/2019 12/12/2020 1 1 Reason for Visit Reason Comments Follow-up Outpatient (Routine) - Closed Specialty Diagnoses / Procedures Referred By Contact Refer red To Contact Orthopedic Surgery Angelita Buchanan APRN, [facility] C.N.PRaffy, M.S.N. [address] [place] [phone] Referral ID Status Reason Start Date Expiration Date Visits Requ ested Visits Authorized [id number] Closed 10/24/2019 10/23/2020 1 1 Encounter Details Date Type Department Care Team Description 12/13/2019 [facility] Wander Brush ibial Orthopedic Surgery in [place], [place] [address] [facility] Subsequent Left [address] [place], [place] (Primary Dx) [place] [phone] [phone] Social History Tobacco Use Types Packs/Day Years [...] or relatives? How often do you attend oriental orthodox or Never 2021 rastafarian services? Do you belong to any clubs or No 02/25/2021 organizations such as oriental orthodox groups, unions, fraternal or athletic groups, [...] documented as of this encounter Progress Notes Kelli Mojica M.D., M.E. - 12/13/2019 8:45 AM CDT HISTORY OF PRESENT ILLNESS Allison Schulz is a 49 y.o. female who on October 24, 2019 underwent open reduction internal fixation of her left tibial plateau fracture. They present to our clinic today 7 weeks after the procedure for wound evaluation. Patient is not currently experiencing numbness to the effected limb. Patient has not had any issues with incision drainage or healing to this point. Wound is well healed. Current post-operative ambulatory status/gait aids: Patient has been toe-touch weight-bearing on theleft lower extremity in hinged knee brace working on ROM. PHYSICAL EXAM General Appearance: Patient appears alert, active, comfortable, and in no acute distress. The patient is alert and oriented to person, place, and time and able to follow commands. Skin: Surgical site appearance: Surgical incision is clean, dry and intact without evidence of infection.Wound edges are well approximated. Musculoskeletal: Patient is able to fire EHL, FHL, gastrocsoleus, tibialis anterior, quadriceps, hamstrings. Left knee ROM: 5 degree short of full extension to about 95?? of flexion. Neurologic: Intact sensation to light touch through the deep peroneal, superficial peroneal, sural, saphenous and tibial nerve distributions of the affected leg. Vascular: The left lower extremity does appear well perfused. Dorsalis Pedis pulse is 2+ and capillary refill is <= 2 sec through all toes. IMPRESSION/REPORT/PLAN IMAGING STUDIES: Radiographs reviewed today. Implants remain stable, no evidence of loosening or new periprosthetic fracture. There is evidence of interval healing. #1 Left tibial plateau fracture status post open reduction internal fixation The patient continues to recover from their above stated procedure. Recommended weight bearing/brace/splint: She should remain toe-touch weight- bearing until 3 months postoperatively. She does not need to wear the hinged brace while in bed but when up and moving she should have the brace. She continue to work on range of motion to get full extension back as well as fur ther flexion. Plan/Follow up instructions: We will see her back in 6 wks for x-rays and evaluation. We discussed pain management strategies. All questions were answered, patient understands and agrees with the plan. Dr. Lewis was present for this evaulation. Raudel Lewis M.D. - 12/13/2019 8:45 AM CDT I have seen and evaluated Allison Schulz today. She is here today for a follow-up appointment after Open Reduction, Internal Fixation Tibia. - Left. She is doing well. Her pain is well controlled. She is working on knee range of motion. She has been restricting her weight-bearing. We discussed pain management techniques which include activity modification and medical management. Recent imaging was reviewed as indicated. Her tibial plateau fracture is well aligned. There is no signs of displacement or subsidence. The hardware is stable without signs of loosening or breakage. The joint is well aligned without evidence of posttraumatic arthritis or joint space narrowing. Patient's functional abilities were discussed. Wound evaluation and physical examination was performed. Wound appears in expected state of healing.The incision is healed without erythema, fluctuance, or drainage. There are no signs of acute infection. She can extend her knee short of full extension by about 5??, and when I stretch it a bit, she is able to gain her terminal extension. She is able flexion to about 95?? and with a little bit of pushing can get another 5-10 degrees of motion. Plan will be to continue her toe-touch weight-bearing status. She should not increase her weight-bearing. She can wear brace when she is mobilizing, but may discontinue use of brace at night when she is sleeping.. We discussed expected activities, limitations, and goals. All patient questions were answered. I offered if there was anything else that I could do for the patient and the patient was satisfied. She should continue working on her knee range of motion, working on getting terminal extension and increasing her flexion. We will see the patient back in 6 weeks. documented in this encounter Plan of Treatment Scheduled Referrals Name Type Priority Associated Order Schedule Diagnoses Orthopedic Surgery Outpatient Referral Routine Ex pected: office visit 01/24/2020 (clinic) (Approximate), Expires: 12/12/2022 documented as of this encounter Results DX Knee Left Standing 1-2 Views (01/21/2020 9:29 AM PERSONNEL PSYCHOLOGIST) Anatomical Region Laterality Modality Lower Extremity, Knee, Musculoskeletal RST LOS, Left Digital Radiography Musculoskeletal ARZ LOS, Muskuloskeletal FLA LOS Specimen (Source) Anatomical Collection Method Collection Time Re ceived Time Location / / Volume Laterality 01/21/2020 9:32 AM PERSONNEL PSYCHOLOGIST Impressions 01/21/2020 9:37 AM PERSONNEL PSYCHOLOGIST Interposition cement and medial plate and screw fixation across a healing comminuted intra-articular left tibial plateau fracture. No change in alignment. Narrative 01/21/2020 9:37 AM PERSONNEL PSYCHOLOGIST EXAM: ??DX KNEE LEFT STANDING 1-2 VIEWS [...] Plateau Closed Subsequen t Left - Primary Fracture Tibial Plateau Closed Subsequen t Left documented in this encounter Care Teams Banana Expert Relationship Specialty Start Date End Date Ro Norton APRN, C.N.P., PCP - General Family Medicine D.N.P. [address] [phone] documented as of this encounter
--- OUTSIDE RECORDS SUMMARY | 2021-12-31 07:54 | XMS_ITS | Encounter Summary ---
:1970 Author Organization [facility] Address [address] [place] [address] Care Team Providers Name Role Phone Ro Norton APRN C.N.P., D.N.P. Primary Care Provider Encounter Details Date Type Department Care Team Description 02/26/2020 Hospital Encounter Department of Angelita Buchanan Radiology, [facility] M.S.N. Subsequent [place], [place] [address] [email or web address] [address] [place] [phone] Social History Tobacco Use Types Packs/Day Years [...] or relatives? How often do you attend orthodoxy or Never 2021 muslim services? Do you belong to any clubs or No 02/25/2021 organizations such as orthodoxy groups, unions, fraternal or athletic groups, or [...] DX KNEE LEFT 2 RAD - Routine 02/26/2020 7:55 Fracture Tibial Result s for this VIEWS (most inpatients AM RELIEF WORKER Plateau Closed procedure are in and all Subsequent Left the results outpatients) section. documented in this encounter Results DX Knee Left 2 Views (02/26/2020 7:55 AM RELIEF WORKER) Anatomical Region Laterality Modality Lower Extremity, Knee, Musculoskeletal RST LOS, Left Digital Radiography Musculoskeletal ARZ LOS, Muskuloskeletal FLA LOS Specimen (Source) Anatomical Collection Method Collection Time Re ceived Time Location / / Volume Laterality 02/26/2020 8:08 AM RELIEF WORKER Impressions 02/26/2020 8:37 AM RELIEF WORKER Medial plate and screw fixation and interposition cement across a comminuted intra-articular left tibial p lateau fracture, with interval healing since 01/21/2020. The fracture lines are partially visible. Stable alignment. No radiographic evidence of hardware loosen ing, migration or fracture. Narrative 02/26/2020 8:37 AM RELIEF WORKER EXAM: ??DX KNEE LEFT 2 VIEWS Procedure Note Mukesh Martines M.D. - 02/26/2020For matting of this note might be different from the original. EXAM: DX KNEE LEFT 2 VIEWS IMPRESSION: Medial plate and screw fixation and inte rposition cement across a comminuted intra-articular left tibial p lateau fracture, with interval healing since 01/21/2020. The fracture lines are partially visible. Stable alignment. No radiographic evidence of hardware loosen ing, migration or fracture. Angelita Buchanan APRN C.N.P., M.S.N. IMG DIAGNOSTIC QUE GING PROCEDURES documented in this encounter Visit Diagnoses Diagnosis Fracture Tibial Plateau Closed Subsequen t Left documented in this encounter Care Teams Developer Analyst Relationship Specialty Start Date End Date Ro Norton APRN C.N.P., PCP - General Family Medicine D.N.P. [address] [phone] documented as of this encounter
--- OUTSIDE RECORDS SUMMARY | 2021-12-31 07:54 | XMS_ITS | Encounter Summary ---
:1970 Author Organization [facility] Address [address] [place] [address] Care Team Providers Name Role Phone Ro Norton APRN, C.N.P., D.N.P. Primary Care Provider Reason for Visit Reason Comments Med Refill oxycodone Encounter Details Date Type Department Care Team Description 11/15/2019 Clinical Communication Department of Raudel Lewis Med Refill Orthopedic Surgery Michael Betancourt (oxycodone) in [place], [facility] [address] [place], [place] [address] [facility] [address] [place], [place] [phone] [address] (Work) [phone] Social History Tobacco Use Types Packs/Day Years [...] or relatives? How often do you attend religious or Never 2021 uatsdin services? Do you belong to any clubs or No 02/25/2021 organizations such as religious groups, unions, fraternal or athletic groups, or [...] this encounter Miscellaneous Notes Telephone Encounter - Yogi Lang M.D. - 11/15/2019 1:25 PM CDT Attempted to called patient to discuss nature of pain. Unfortunately she was unable to be reached atthe phone # provided. I prescribed a short course of oxycodone to bridge her pain. This will be a 1 time refill as out expect her pain began to improve in the coming weeks. Will attempt to call her again at a later time. Telephone Encounter - Petra Izaguirre - 11/15/2019 12:17 PM CDT Patient calls today requesting a refill of the oxycodone. She states she has been out for about a day. She would like a refill sent to the [facility] in [place]. She statesshe is also taking gabapentin and Tramadol. She can be reached at [phone] if there are any questions. documented in this encounter Plan of Treatment Not on filedocumented as of this encounter Visit Diagnoses Not on filedocumented in this encounter Care Teams Machine Operator Assistant Relationship Specialty Start Date End Date Ro Norton APRN, C.N.P., PCP - General Family Medicine D.N.P. [address] [phone] documented as of this encounter
--- OUTSIDE RECORDS SUMMARY | 2021-12-31 07:54 | XMS_ITS | Encounter Summary ---
:1970 Author Organization [facility] Address [address] [place] [address] Care Team Providers Name Role Phone Ro Norton APRN, C.N.P., D.N.P. Primary Care Provider Encounter Details Date Type Department Care Team Description 03/05/2020 E-Visit [facility] [place], Laquita ramírez, [place], RE: [place] [facility] [place] [facility] on the [address] .[address]. Floor [address] [place] [address] [address] [place] [address] [phone] (Wo rk) Social History Tobacco Use Types [...] do you attend buddhism or Never 2021 roman catholic services? Do [...] as of this encounter Visit Diagnoses Diagnosis Edema Right Upper Eyelid - Primary documented in this encounter Care Teams Broadcaster Relationship Specialty Start Date End Date Ro Norton APRN, C.N.P., PCP - General Family Medicine D.N.P. [address] [phone] documented as of this encounter
--- OUTSIDE RECORDS SUMMARY | 2021-12-31 07:54 | XMS_ITS | Encounter Summary ---
:1970 Author Organization [facility] Address [address] [place] [address] Care Team Providers Name Role Phone Ro Norton APRN C.N.P., D.N.P. Primary Care Provider Encounter Details Date Type Department Care Team Description 11/15/2019 Orders Only Department of Orthopedic Serafin Lang M.D. Surgery in [place], [address] [place] [address] [place] [address] [place] [address] [phone] Social History Tobacco Use Types Packs/Day Years [...] do you attend zoroastrianism or Never 2021 hoahaoism services? Do you belong to any clubs [...] on filedocumented in this encounter Care Teams Compressor Assembler Relationship Specialty Start Date End Date Ro Norton APRN, C.N.P., PCP - General Family Medicine D.N.P. [address] [phone] documented as of this encounter
--- OUTSIDE RECORDS SUMMARY | 2021-12-31 07:54 | XMS_ITS | Encounter Summary ---
:1970 Author Organization [facility] Address [address] [place] [address] Care Team Providers Name Role Phone Ro Norton APRN C.N.PRaffy, D.N.P. Primary Care Provider Encounter Details Date Type Department Care Team Description 12/23/2019 Orders Only Department of Angelita Buchanan, Pain Calf Left Orthopedic Surgery in [place] C.N.PRaffy, (Prim jonny Dx) [place], [place] M.S.N. [address] [facility] [address] [place] [address] [phone] Social History Tobacco Use Types Packs/Day Years [...] do you attend methodist or Never 2021 mu-ism services? Do you [...] as of this encounter Visit Diagnoses Diagnosis Pain Calf Left - Primary documented in this encounter Care Teams Policy Analyst Relationship Specialty Start Date End Date Ro Norton APRN, C.N.P., PCP - General Family Medicine D.N.P. [address] [phone] documented as of this encounter
--- OUTSIDE RECORDS SUMMARY | 2021-12-31 07:54 | XMS_ITS | Encounter Summary ---
:1970 Author Organization [facility] Address [address] [place] [address] Care Team Providers Name Role Phone Ro Norton APRN, C.N.Kirsty, D.N.P. Primary Care Provider Reason for Referral Outpatient (Routine) - Closed Specialty Diagnoses / Procedures Referred By Contact Refer red To Contact Orthopedic Surgery Angelita Buchanan APRN, [facility] [place].N.Kirsty, M.S.N. 200 [place] [address] Referral ID Status Reason Start Date Expiration Date Visits Requ ested Visits Authorized [id number] Closed 02/24/2020 02/23/2021 1 1 Scheduling Instructions [facility] - est - 745 x-rays, 830 am eval EDURE TECH Encounter Details Date Type Department Care Team Description 02/24/2020 Orders Only Department of Angelita Buchanan, Fracture T ibial Orthopedic Surgery in [place] C.N.Kirsty, Plate au Closed [place], [place] M.S.N. Subsequent Left [address] [facility] 200 [facility] (Primary Dx) [place] [address] [phone] Social History Tobacco Use Types Packs/Day Years [...] do you attend jewish or Never 2021 sabianist services? Do you [...] Outpatient Referral Routine Ex pected: office visit 02/26/2020 (clinic) (Approximate), Expires: 02/23/2023 documented as of this encounter Results DX Knee Left 2 Views (02/26/2020 7:55 AM PROCEDURE TECH) Anatomical Region Laterality Modality Lower Extremity, Knee, Musculoskeletal RST LOS, Left Digital Radiography Musculoskeletal ARZ LOS, Muskuloskeletal FLA LOS Specimen (Source) Anatomical Collection Method Collection Time Re ceived Time Location / / Volume Laterality 02/26/2020 8:08 AM PROCEDURE TECH Impressions 02/26/2020 8:37 AM PROCEDURE TECH Medial plate and screw fixation and interposition cement across a comminuted intra-articular left tibial p lateau fracture, with interval healing since 01/21/2020. The fracture lines are partially visible. Stable alignment. No radiographic evidence of hardware loosen ing, migration or fracture. Narrative 02/26/2020 8:37 AM PROCEDURE TECH EXAM: ??DX KNEE LEFT 2 VIEWS Procedure [...] of hardware loosen ing, migration or fracture. Bolivar Benavides APRN.N.P., M.S.N. IMG DIAGNOSTIC QUE GING PROCEDURES documented in this encounter Visit Diagnoses Diagnosis Fracture Tibial Plateau Closed Subsequen t Left - Primary Fracture Tibial Plateau Closed Subsequen t Left documented in this encounter Care Teams Certified Medical Aide Relationship Specialty Start Date End Date Ro Norton APRN, C.N.P., PCP - General Family Medicine D.N.P. [address] [phone] documented as of this encounter
--- OUTSIDE RECORDS SUMMARY | 2021-12-31 07:54 | XMS_ITS | Encounter Summary ---
:1970 Author Organization [facility] Address [address] [place] [address] Care Team Providers Name Role Phone Ro Norton APRN, C.NDean, D.N.P. Primary Care Provider Reason for Referral Outpatient (Routine) - Closed Specialty Diagnoses / Procedures Referred By Contact Refer red To Contact Diagnoses Fracture Tibial Plateau Closed Subsequent Left Angelita Buchanan APRN, Procedures Suture Removal C.N.PRaffy, M.S.N. [address] [place] [phone] Referral ID Status Reason Start Date Expiration Date Visits Requ ested Visits Authorized [id number] Closed 11/13/2019 11/12/2020 1 1 Reason for Visit Reason Comments Follow-up Outpatient (Routine) - Closed Specialty Diagnoses / Procedures Referred By Contact Refer red To Contact Orthopedic Surgery Angelita Buchanan APRN, [facility] C.N.P., M.S.N. [address] [place] [phone] Referral ID Status Reason Start Date Expiration Date Visits Requ ested Visits Authorized [id number] Closed 10/24/2019 10/23/2020 1 1 Encounter Details Date Type Department Care Team Description 11/13/2019 Office Visit Department of [facility], Raudel Betancourt M.D. [address] [place] [phone] Fracture Tibial Orthopedic Surgery in [place] Angelita Conde APRN, C.N.P., M.S.N. [address] [place] [address] Plateau Closed [place], [place] Subsequent Left [address] [facility] (Primary Dx) [place] [phone] Social History Tobacco Use Types Packs/Day Years [...] do you attend samaritan or Never 2021 latter day services? Do [...] as of this encounter Progress Notes Angelita Buchanan APRN, C.N.P., M.S.N. - 11/13/2019 8:30 AM CDT HISTORY OF PRESENT ILLNESS Allison Schulz is a 49 y.o. female who on October 24, 2019 underwent open reduction internal fixation of her left tibial plateau fracture. They present to our clinic today 3 weeks after the procedure for wound evaluation. Patient is not currently experiencing numbness to the effected limb. Patient has not had any issues with incision drainage or healing to this point. Current post-operative ambulatory status/gait aids: Patient has been toe-touch weight-bearing on theleft lower extremity in the knee immobilizer and bulky dressing. PHYSICAL EXAM General Appearance: Patient appears alert, [...] tibialis anterior, quadriceps, hamstrings. Left knee ROM: 10 degree short of full extension to about 40?? of flexion. Neurologic: Intact sensation to light touch through the deep peroneal, superficial peroneal, sural, saphenous and tibial nerve distributions of the affected leg. Vascular: The left lower extremity does appear well perfused. Dorsalis Pedis pulse is 2+ and capillary refill is <= 2 sec through all toes. IMPRESSION/REPORT/PLAN IMAGING STUDIES: No imaging studies were done today #1 Left tibial plateau fracture status post open reduction internal fixation The patient continues to recover from their above stated procedure. Recommended weight bearing/brace/splint: Today she was transitioned into a hinged knee brace that was set at -10 to open knee range of motion. She should wear this at all times. She can remove it to heck her skin. She will continue her toe-touch weight-bearing status. We encouraged her to work on kneeflexion and extension. Plan/Follow up instructions: We will see her back on December 12 for x-rays and evaluation. We discussed pain management strategies. All questions were answered, patient understands and agrees with the plan. Dr. Lewis was present for this evaulation. Wound care instructions: Surgical sutures will be removed in office today by nursing staff and cleansed with Betadine solution. #1 Fracture Tibial Plateau Closed Subsequent Left documented in this encounter Plan of Treatment Scheduled Orders Name Type Priority Associated Diagnoses Order S chedule Suture Removal Procedures Routine Fracture Tibial Plateau Cl osed Ordered: 11/13/2019 Subsequent Left documented as of this encounter Visit Diagnoses Diagnosis Fracture Tibial Plateau Closed Subsequen t Left - Primary documented in this encounter Care Teams Flame Cutting Machine Operator Relationship Specialty Start Date End Date Ro Norton APRN, C.N.P., PCP - General Family Medicine D.N.P. [address] [phone] documented as of this encounter
--- OUTSIDE RECORDS SUMMARY | 2021-12-31 07:55 | XMS_ITS | Encounter Summary ---
:1970 Author Organization [facility] Address [address] [place] [address] Care Team Providers Name Role Phone Ro Norton APRN, C.N.P., D.N.P. Primary Care Provider Encounter Details Date Type Department Care Team Description 10/24/2019 Orders Only [facility] PCP [facility] MNT Ro Norton APRN, C.N.P., D.N.P. [id number] [place] [address] [phone] (Wo rk) Social History Tobacco Use Types [...] do you attend scientologist or Never 2021 anglican services? Do you [...] or slept in a usp (including now)? Sex Assigned at Date Recorded Female 10/14/2020 12:54 PM CDT documented as of this encounter Plan of Treatment Not on filedocumented as of this encounter Visit Diagnoses Not on filedocumented in this encounter Care Teams Concrete Block Layer Relationship Specialty Start Date End Date Ro Norton APRN, C.N.P., PCP - General Family Medicine D.N.P. [address] [id number] documented as of this encounter
--- OUTSIDE RECORDS SUMMARY | 2021-12-31 07:55 | XMS_ITS | Encounter Summary ---
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 melatonin tablet 3 mg Given 10/26/2019 8:19 PM CDT 3 mg 3 mg, oral, Daily at bedtime, First dose on Mon10/23/19 at 2100 Given 10/25/2019 8:02 PM CDT 3 mg Given 10/23/2019 8:25 PM CDT 3 mg mineral oil-glycerin enema 1 enema Given 10/26/2019 4:57 PM CDT 1 enema 1 enema, rectal, Once, On 10/26/19 at 1345, For 1 dose naloxone injection 0.2 mg (NARCAN) 0.2 mg, intravenous, As needed, respirat ory depression, Starting on Mon10/25/19 at 0720, For RASS Score -4 or less, respiratory rate of l ess than 8 breaths/min. Notify provider/service and rapid response team (if av ailable at institution). oxyCODONE IR tablet 10 mg (ROXICODONE) Given 10/25/2019 6:46 AM CDT 10 mg 10 mg, oral, Every 4 hours PRN, severe pain or score 7-10 of 10, Starting on Mon10/23/19 at 0438 Given 10/23/2019 4:20 PM CDT 10 mg Given 10/23/2019 11:58 AM CDT 10 mg oxyCODONE IR tablet 10 mg (ROXICODONE) 10 mg, oral, Every 4 hours PRN, moderate pain or score 4-6 of 10, Starting on Mon10/25/19 at 0719 oxyCODONE IR tablet 15 mg (ROXICODONE) Given 10/27/2019 12:32 PM CDT 15 mg 15 mg, oral, Every 4 hours PRN, severe pain or score 7-10 of 10, Starting on Mon10/25/19 at 0719 Given 10/26/2019 4:40 PM CDT 15 mg Given 10/26/2019 11:31 AM CDT 15 mg oxyCODONE IR tablet 5 mg (ROXICODONE) Given 10/24/2019 1:00 AM CDT 5 mg 5 mg, oral, Every 4 hours PRN, moderate pain or score 4-6 of 10, Starting on Mon10/23/19 at 0438 Given 10/23/2019 8:25 PM CDT 5 mg polyethylene glycol powder packet 17 g Given 10/26/2019 8:10 AM CDT 17 g (MIRALAX) 17 g, oral, Daily, First dose on Mon10/23/19 at 0900, Dissolve in 240 mLs (8 ounces) of water prior to giving. Avoid mixing with starch-based thickened liquids. Given 10/25/2019 8:30 AM CDT 17 g Given 10/23/2019 9:36 AM CDT 17 g pregabalin capsule 100 mg (LYRICA) Given 10/24/2019 8:18 PM CDT 100 mg 100 mg, oral, 3 times daily, First dose on Mon10/23/19 at 1400, For 2 days Given 10/24/2019 1:46 PM CDT 100 mg Given 10/23/2019 8:25 PM CDT 100 mg sennosides tablet 17.2 mg (SENOKOT) 17.2 mg, oral, Daily at bedtime, First d ose (after last modification) on Mon10/26/19 at 2100 sennosides tablet 8.6 mg (SENOKOT) Given 10/25/2019 8:02 PM CDT 8.6 mg 8.6 mg, oral, Daily at bedtime, First dose on Mon10/25/19 at 2100 sennosides-docusate sodium 8.6-50 mg per Given 10/24/2019 8:18 P M CDT 1 tablet tablet 1 tablet (SENOKOT-S) 1 tablet, oral, 2 times daily, First dose on Mon10/23/19 at 0900 Given 10/23/2019 8:25 PM CDT 1 tablet Given 10/23/2019 9:36 AM CDT 1 tablet sodium chloride 0.9 % injection 10 mL 10 mL, intravenous, As needed, line care, Starting on Mon10/23/19 at 0350, Peripheral Intravenous Catheter and Rapid Infusion Cat heter, prior to blood sampling, post blood transfusion or post blood samplin g sodium chloride 0.9 % injection 3 mL 3 mL, intravenous, As needed, line care, Starting on Mon10/23/19 at 0350, Prior to and following infusion and between multi ple consecutive infusions: sodium chloride 0.9 % injection sodium chloride 0.9 % injection 3 mL Given 10/26/2019 8:21 PM CDT 3 mL 3 mL, intravenous, Every 12 hours scheduled, First dose on Mon10/23/19 at 0900, Peripheral Intravenous Catheter and Rapid Infusion Catheter, when no infusion to maintain patency Given 10/25/2019 8:10 PM CDT 3 mL Given 10/24/2019 8:25 PM CDT 3 mL tiotropium 2.5 mcg/actuation inhaler 2 puff Given 07/2019 9:38 AM CDT 2 puffs (SPIRIVA RESPIMAT) 2 puff, inhalation, Daily (RT), First dose on Mon10/23/19 at 0800, tiotropium respimat was interchanged for tiotropium handihaler (same frequency) Given 10/26/2019 8:13 AM CDT 2 puffs Given 10/25/2019 8:39 AM CDT 2 puffs traMADoL tablet 50 mg (ULTRAM) Given 10/27/2019 11:43 AM CDT 50 mg 50 mg, oral, Every 6 hours, First dose on Mon10/23/19 at 0500, Drug Monitoring Program: Pharmacist to adjust medication dosing based on indication and drug clearance factors. Given 10/27/2019 5:19 AM CDT 50 mg Given 10/26/2019 11:50 PM CDT 50 mg documented in this encounter Active and Recently Administered Medications Times are shown in CDT. Scheduled Medication Order 10/25/2019 10/26/2019 10/27/2019 acetaminophen tablet 1,000 mg (TYLENOL) 0134 (Given - Provider: Augustus Gaona R.N.)0830 (Given - Provider: Damaris Ferreira RToya.)1355 (Given - Provider: Damaris Ferreira R.N.)1947 (Given - Provider: Montserrat Boone R.N.) 0215 (Given - Provider: Montserrat Boone R.N.)0809 (Given - Provider: Ethan TrippN.)1550 (Given - Provider: Damaris Ferreira R.N. - Comment: Patient given mag citrate at 1400-micromedex says no PO rehabilitation medicine physician within 2 hours) 0300 (Given - Provider: Montserrat Boone R.N.)0937 (Given - Provider: Damaris Ferreira R.N.) 1,000 mg, oral, Every 6 hours, First dose on Mon10/23/19 at 0 800 2019 (Given - Provider: Montserrat Boone R.N.) ceFAZolin in dextrose (iso-os) IVPB 2 g (ANCEF) (COMPL ETED) 013 (New Bag - Provider: Augustus Gaona R.N.) 2 g, intravenous, at 200 mL/hr, Administ er over 30 Minutes, Every 8 hours, First dose (after last modification) on Tessie 10/24/19 at 1700, For 2 doses, premix bag, Drug Monitoring Program: Pharmacist to adj ust medication dosing based on indicatio n and drug clearance factors., Indications: Prophylaxis, surgical docusate sodium capsule 200 mg (COLACE) 830 (Given - Provider: Damaris Ferreira R.N.)2001 (Given - Provider: Montserrat Boone R.N.) 808 (Given - Provider: Damaris Ferreira R.N.)2020 (Not Given - Provider: Montserrat Boone R.N. - Reason: Patient/family refused) 934 (Not Given - Provider: Damaris Ferreira R.N. - Reason: Patient/family refused) 200 mg, oral, 2 times daily, First dose on Mon10/25/19 at 0900, Do NOT crush or chew. enoxaparin injection 30 mg (LOVENOX) (CANCELED) 0830 ( Given - Provider: Damaris Ferreira R.N.)2001 (Given - Provider: Montserrat Boone R.N.) 809 (Given - Provider: Damaris Ferreira R.N.)2018 (Given - Provider: Montserrat Boone R.N.) 30 mg, subcutaneous, 2 times daily, First dose on Mon10/25/19 at 0900 enoxaparin injection 40 mg (LOVENOX) 0938 (Given - Provider: Ethan TrippNRaffy) 40 mg, subcutaneous, Daily, First dose ( after last modification) on Mon10/27/19 at 0900 gabapentin capsule 300 mg (NEURONTIN) 0831 (Given - Pr ovider: Damaris Ferreira R.N.)1355 (Given - Provider: Damaris Ferreira R.N.)2002 (Given - Provider: Montserrat Boone R.N. - Comment: lyrica discontinued) 0809 (Given - Provider: Damaris Ferreira R.N.)1550 (Given - Provider: Damaris Ferreira R.N. - Comment: Patient given mag citrate at 1400-micromedex says no PO rehabilitation medicine physician within 2 hours)2018 (Given - Provider: Montserrat Boone R.N.) 0937 (Given - Provider: Damaris Ferreira R.N.) 300 mg, oral, 3 times daily, First dose on Mon10/25/19 at 0900 lidocaine 5 % 1 patch (LIDODERM) 0830 (Medication Appl ied - Provider: Damaris Ferreira R.N.)2000 (Medication Removed - Provider: Montserrat Boone R.N.) 0810 (Not Given - Provider: Damaris Ferreira R.N. - Reason: Patient/family refused) 0934 (Not Given - Provider: Damaris Ferreira R.N. - Reason: Patient/family refused) 1 patch, transdermal, Administer over 12 Hours, Daily, First dose on Mon10/23/19 at 0900, May apply up to 3 patches per day. magnesium citrate solution 148 mL (CITROMA) (COMPLETED) 1406 (Given - Provider: Damaris Ferreira R.N.) 148 mL, oral, Once, On 10/26/19 at 1345, For 1 dose melatonin tablet 3 mg 2001 (Given - Provider: Montserrat brown RRaffyNRaffy) 2018 (Given - Provider: Montserrat Boone R.N.) 3 mg, oral, Daily at bedtime, First dose on Mon10/23/19 at 2100 mineral oil-glycerin enema 1 enema (COMPLETED) 165 (Given - Provider: Damaris Ferreira R.N. - Comment: Patient request to let mag citrate work first before NC route) 1 enema, rectal, Once, On 10/26/19 at 1345, For 1 dose polyethylene glycol powder packet 17 g (MIRALAX) 0830 (Given - Provider: Damaris Ferreira R.N.) 0810 (Given - Provider: Damaris Ferreira R.N.) 0935 (Not Given - Provider: Damaris Ferreira R.N. - Reason: Patient/family refused) 17 g, oral, Daily, First dose on 10/22 at 0900, Dissolve in 240 mLs (8 ounces) of water prior to giving. Avoid mixing with starch-based thickened liquids. sennosides tablet 17.2 mg (SENOKOT) 2020 (Not Given - Provider: Montserrat Boone R.N. - Reason: Patient/family refused) 17.2 mg, oral, Daily at bedtime, First d ose (after last modification) on Mon10/26/19 at 2100 sennosides tablet 8.6 mg (SENOKOT) (CANCELED) 2001 (Gi cata - Provider: Montserrat Boone R.N.) 8.6 mg, oral, Daily at bedtime, First dose on Mon10/25/19 at 2100 sodium chloride 0.9 % injection 3 mL 0844 (Not Given - Provider: Damaris Ferreira R.N. - Reason: Other)2009 (Given - Provider: Montserrat Boone R.N.) 0815 (Not Given - Provider: Damaris Ferreira R.N. - Reason: Other)2020 (Given - Provider: Montserrat Boone R.N.) 0935 (Not Given - Provider: Damaris Ferreira R.N. - Reason: Other) 3 mL, intravenous, Every 12 hours schedu led, First dose on Mon10/23/19 at 0900, Peripheral Intravenous Catheter and Rapid Infusion Catheter, when no infusion to maintain patency tiotropium 2.5 mcg/actuation inhaler 2 puff (SPIRIVA R ESPIMAT) 0839 (Given - Provider: Damaris Ferreira R.N.) 0813 (Given - Provider: Ethan CalhounNRaffy) 0938 (Given - Provider: Daamris saldana R.N.) 2 puff, inhalation, Daily (RT), First do se on Mon10/23/19 at 0800, tiotropium respimat was interchanged for tiotropium handihaler (same frequency) traMADoL tablet 50 mg (ULTRAM) 0134 (Given - Provider: Augustus Gaona R.N.)0547 (Given - Provider: Augustus Gaona R.N.)1112 (Given - Provider: Ethan TrippN.)1659 (Given - Provider: Ethan TrippN.)2256 (Given - Provider: Ethan BadilloN.) 0514 (Given - Provider: Belkis Badillo.N.)1115 (Given - Provider: Ethan TrippN.)1800 (Given - Provider: Ethan TrippN.)2350 (Given - Provider: Ethan BadilloN.) 0519 (Given - Provider: Montserrat Boone R.N.)1143 (Given - Provider: Damaris Ferreira R.N.) 50 mg, oral, Every 6 hours, First dose o n Mon10/23/19 at 0500, Drug Monitoring Program: Pharmacist to adjust medication dosing based on indication and drug clearance factors. PRN Medication Order 10/25/2019 10/26/2019 10/27/2019 albuterol nebulizer solution 2.5 mg (ACCUNEB) 2.5 mg, nebulization, Every 8 hours PRN, wheezing, shortness of breath, Starting Mon10/23/19 at 0412, Albuterol nebs were interchanged for albuterol/levalbuterol MDI (same frequency) bisacodyL suppository 10 mg (DULCOLAX) 10 mg, rectal, Daily PRN, constipation, Starting on Mon10/26/19 a t 0715 HYDROmorphone (PF) injection 0.4 mg (DILAUDID) 0.4 mg, intravenous, Every 2 hour PRN, s evere pain or score 7-10 of 10, Starting on Mon10/23/19 at 0438 naloxone injection 0.2 mg (NARCAN) 0.2 mg, intravenous, As needed, respirat ory depression, Starting on Mon10/25/19 at 0720, For RASS Score -4 or less, respiratory rate of less than 8 breaths/min. Notify provider/service and rapid response team (if available at institution). oxyCODONE IR tablet 10 mg (ROXICODONE) (CANCELED) 0646 (Given - Provider: Augustus Gaona R.N.) 10 mg, oral, Every 4 hours PRN, severe p ain or score 7-10 of 10, Starting on Mon10/23/19 at 0438 oxyCODONE IR tablet 10 mg (ROXICODONE)(Linked Group 1) 1112 (See Alternative - Provider: Damaris Ferreira R.N.)194 (See Alternative - Provider: Montserrat Boone R.N.) 0411 (See Alternative - Provider: Montserrat Boone R.N.)1131 (See Alternative - Provider: Damaris Ferreira R.N.)1640 (See Alternative - Provider: Damaris Ferreira R.N.) 1232 (See Alternative - Provider: Tiff Ferreira R.N.) 10 mg, oral, Every 4 hours PRN, moderate pain or score 4-6 of 10, Starting on Mon10/25/19 at 0719 oxyCODONE IR tablet 15 mg (ROXICODONE)(Linked Group 1) 1112 (Given - Provider: Damaris Ferreira R.N.)194 (Given - Provider: Montserrat Boone R.N.) 041 (Given - Provider: Montserrat Boone R.N.)1131 (Given - Provider: Damaris Ferreira R.N.)1640 (Given - Provider: Damaris Ferreira R.N.) 1232 (Given - Provider: Damaris Ferreira R.N.) 15 mg, oral, Every 4 hours PRN, severe p ain or score 7-10 of 10, Starting on Mon10/25/19 at 0719 sodium chloride 0.9 % injection 10 mL 10 mL, intravenous, As needed, line care , Starting on Mon10/23/19 at 0350, Peripheral Intravenous Catheter and Rapid Infusion Catheter, prior to blood sampling, post blood transfusion or post blood sampling sodium chloride 0.9 % injection 3 mL 3 mL, intravenous, As needed, line care, Starting on Mon10/23/19 at 0350, Prior to and following infusion and between multiple consecutive infusions: sodium chloride 0.9 % injection Linked Groups Order Group 1: oxyCODONE IR tablet 10 mg (ROXICODONE)Jump to med 10 mg, oral, Every 4 hours PRN, moderate pain or score 4-6 of 10, Starting on Mon10/25/19 at 0719 Or oxyCODONE IR tablet 15 mg (ROXICODONE)Jump to med 15 mg, oral, Every 4 hours PRN, severe p ain or score 7-10 of 10, Starting on Mon10/25/19 at 0719 documented in this encounter Additional Health Concerns Infection Onset Date Last Indicated Resolved Time COVID19 Pending 10/23/2019 10/23/2019 10/23/2019 10:32 AM CDT documented as of this encounter Care Teams Rn Iv Therapy Relationship Specialty Start Date End Date Ro Norton, MORGAN, C.N.P., PCP - General Family Medicine D.N.P. [id number] [id number] documented as of this encounter
--- OUTSIDE RECORDS SUMMARY | 2021-12-31 07:55 | XMS_ITS | Encounter Summary ---
:1970 Author Organization [facility] Address [address] [place] [address] Care Team Providers Name Role Phone Ro Norton APRN, C.N.P., D.N.P. Primary Care Provider Encounter Details Date Type Department Care Team Description 10/24/2019 Anesthesia Event RST ROMB MAIN OR Janel Hoff M.D. [address] [place] [phone] 12[address] [facility] Hilda Bello APRN, OLIVE PACKER [address] [place] [phone] [place] [address] Anesthesia Record Procedure Summary Procedure Name Responsible Anesthesia Start Anesthesia Stop Time Anesthesiologist Time OPEN REDUCTION, Janel Hoff M.D. 10/24/19 0803 10/24/19 1 125 INTERNAL FIXATION TIBIA. 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 tr ansport medically necessary Report received and care transferred Vital signs stab le during transfer Ventilation and oxygen saturation stable during transport 0803 In Room 0803 An Start Machine/Equipmen t Checked Infection Precautions Foll owed Procedure/Site Verified NPO Sta tus Verified Supine Standard ASA Mon itors Applied 0822 An Induction 0829 An Intubation 0856 Turnover to Proceduralist 09 Proc Start 0930 Quick Note Recruitment tiffanie ths given, Fi02 increased to 60%, BBS 0950 Quick Note Sat decreased to 84%- ETT pulled back to 19 cm at teeth- recruitment breaths given Saturation respo nded to 97%, Dr. Navarro present 1047 Proc Fin 1058 Airway Removal Criteria Met 1058 Extubation/Airway Removed 1058 Quick Note Oral and ETT suc tion - thick secreations 1100 Turnover to ANE Staff 1106 an stop data 1107 Quick Note Alert, SV, 02 pe r nasal cannula, IV Patent, VSS to P ACU 1116 Out of Room 1125 An End I completed my h andoff to the receiving staff during [facility] we 1. Identified the patient 2. Ident ified the responsible provider 3. Revi ewed the pertinent medical history 4. Discussed the surgical course 5. Review ed intra-op anesthesia management and i ssues during anesthesia 6. Set expectati ons for post-procedure period 7. Allowe d opportunity for questions and ac knowledgement of understanding. Name Total fentanyl injection 50 mcg/mL 100 mcg propofol 10 mg/mL 150 mg succinylcholine 20 mg/mL injection 100 mg phenylephrine 100 mcg/mL injection 1,000 mcg ePHEDrine PF 5 mg/mL syringe injection 25 mg ondansetron 4 mg/2 mL injection 4 mg sugammadex 100 mg/mL injection 160 mg phenylephrine 80 mcg/mL in NaCl 0.9% 250 mL infusion 2 .96 mg ceFAZolin in dextrose (iso-osm) IVPB 1 g (ANCEF) 2 g HYDROmorphone (PF) injection 0.4 mg (DILAUDID) 1.4 mg tranexamic acid in NaCl IVPB 1,000 mg (CYCLOKAPRON) 2 g ketamine 10 mg/mL injection 50 mg rocuronium 10 mg/mL injection 30 mg lactated ringers free drip 500 mL lactated ringers free drip 1,000 mL Agents No agents on file. Blood No blood administrations on file. Lines, Drains, and Airways Type Details Placement Removal Peripheral IV Placement Date: 10/22/192134 by 10/27/19 1245 b y 10/22/19; Placement Books, Chidi Mckay M ackenzie A, Time: 2134; Catheter R.N. Size: 18 G; Orientation: Right; Location: Hand; Site Prep: Chlorhexidine (Preferred); Inserted by: Mile Love CRNA; Insertion Attempts: 1; Removal Date: 10/27/19; Removal Time: 1245 (RETIRED) Wound 10/23/19; Abrasion(s); 10/23/19 0000 by 09/29/20 1242 by Back; Lower, Left, Mid; Harris Montez R.N. Agu zino, Claire L, 09/29/20; 1242 R.N. (RETIRED) Wound 10/23/19; 0500; Yes; 10/23/19 0500 by 09/29/20 1 242 by Abrasion(s); Thigh; Mango, Mirnada Hilario, R.N., Fabi Burkett L, Anterior, Left; CCRN R.N. 09/29/20; 1242 (RETIRED) Wound 10/23/19; 0500; Yes; 10/23/19 0500 by 09/29/20 1 241 by Abrasion(s); Knee; MangoMiranda, R.N., Pernell Burkettire L, Anterior, Left; CCRN R.N. 09/29/20; 1241 (RETIRED) Wound 10/23/19; 0500; Yes; 10/23/19 0500 by 09/29/20 1 241 by Abrasion(s); Pretibial; Miranda Cobian R.N., Jeremy zurita Claire L, Distal, Left; 09/29/20; CCRN R.N. 1241 Peripheral IV Placement Date: 10/23/19 1151 by 10/27/19 1245 b y 10/23/19; Placement Jhon Ford Macke nzie A, Time: 1151; Catheter Chidi Morales R.N. Size: 22 G; Orientation: Left; Location: Hand; Site Prep: Chlorhexidine (Preferred); Technique: Anatomical landmarks (vcb); Insertion Attempts: 1; Removal Date: 10/27/19; Removal Time: 1245 Indwelling Urinary Placement Date: 10/24/19 0545 by 10/24/19 181 3 by Catheter 10/24/19; Placement Dianna Vaca Alaina K, Time: 05; Type: R.N., C.M.S.R. N. Double-lumen, Latex; Size: 16 Fr.; Balloon Size: 10 mL; Urine Returned: Yes; Removal Date: 10/24/19; Removal Time: 181; Removal Reason: Per order ETT Placement Date: 10/24/19 0829 by 10/24/19 1058 b y 10/24/19; Placement Hilda Bello, Junie Bello, Time: 828 (created via FORESTER AIDE, OLIVE PACKER FORESTER AIDE, CR KELLEY procedure documentation); Mask Ventilation: Easy mask; Type: Standard ETT; Single Lumen Tube Size: 7 mm; Cuffed: Yes; Blade Size: Han 2; Location: Oral; Removal Date: 10/24/19; Removal Time: 105 Arterial Line Placement Date: 10/24/19 0856 by 10/24/19 1632 b y 10/24/19; Placemnt Time: Hilda Bello, Farshad Jeter, 08 (created via FORESTER AIDE, OLIVE PACKER R.N. procedure documentation); Orientation: Right; Location: Radial; Site Prep: Chlorhexidine (Preferred); Technique: Ultrasound guidance; Insertion Attempts: 5+; Securement: Securement dressing; Removal Date: 10/24/19; Removal Time: 163; Removal Reason: Per order (RETIRED) Wound 10/24/19; 0939; Yes (3 10/24/19 0939 by 09/29/20 1242 by cm area on right heel Tita Duran Aguzino, Claire L, with peeling scab noted, R.N. R.N. present on arrival to OR. Service notified); Skin tear Type 2 (partial flap loss); Heel; Right; skin tear on right heel with peeling scab; 09/29/20; 1242 (RETIRED) Incision 10/24/19; 1003; No; Leg; 10/24/19 1003 by 12/10 1241 by Left, Lower, Medial; Tita Duran Aguzino, Claire L, 09/29/20; 1241 R.N. R.N. documented in this encounter Social History Tobacco Use Types Packs/Day Years [...] do you attend mu-ism or Never 2021 church services? Do you [...] or slept in a retirement (including now)? Sex Assigned at Date Recorded Female 10/14/2020 12:54 PM CDT documented as of this encounter OR Notes Anesthesia Postprocedure Evaluation - Janel Hoff M.D. - 10/24/2019 2:44 PM CDT Patient: Allison Schulz Procedure Summary Date: 10/24/19 Room / Location: [place] [address] ROMB 4970 / [facility] in [place], [place] Anesthesia Start: 802 Anesthesia Stop: 1124 Procedure: OPEN REDUCTION, INTERNAL FIXATION TIBIA. (Left Leg Lower) Diagnosis: Fracture Tibial Plateau Closed Initial Left (Fracture Tibial Plateau Closed Initial Left [S82.142A].) Provider: Raudel Lewis M.D. Responsible Provider: Janel Hoff M.D. Anesthesia Type: general ASA Status: 3 Anesthesia Type: general Last vitals Vitals Value Taken Time BP 132/112 10/24/2019 12:15 PM Temp 36.4 ??C 10/24/2019 12:20 PM Pulse 74 10/24/2019 12:21 PM Resp 13 10/24/2019 12:25 PM SpO2 92 % 10/24/2019 12:21 PM Please reference Vitals flowsheet for most recent vital signs. Anesthesia Post Evaluation Patient Disposition: monitored unit, expectation for recovery time deferred to receiving unit Cardiovascular status: hemodynamics (HR & BP) acceptable Respiratory status: patent airway with spontaneous effort Temperature: normothermic Oxygen requirements: nasal cannula Level of consciousness: awake Pain score: pain adequately controlled and/or at baseline Post Op nausea/vomiting: none Hydration status: euvolemic Anesthesia Procedure Notes - Hilda Bello APRN, CRNA - 10/24/2019 10:09 AM CDTAssociated Order(s): Airway Airway Date/Time: 10/24/2019 8:29 AM Performed by: Hilda Bello APRN, CRNA Authorized by: Janel Hoff M.D. Patient location during procedure: OR / Procedure Area PROCEDURE DETAILS: Mask difficulty assessment: easy mask Final airway type: direct laryngoscopy, intubation Laryngeal Manipulation: no Final airway difficulty of direct laryngoscopy (DL): 0-easy Final best view of glottic structures - Cormack/Lehane Score: grade 2A ETT location: oral Adult blade type: Han 2 Adult tube size: 7 Adult ETT distance at teeth/gum: 19 Oral tube type: standard ETT Cuffed: yes Number of attempt to successful placement: 1 Airway confirmation: bilateral breath sounds, positive ETCO2 and bilateral chest rise Other previous techniques attempted: none Additional Comments Pre02, IV induction, R/L eyes taped, Handventilated, ETT placed PRE PROCEDURE DETAILS: Pre evaluation for airway management: procedure Urgency: elective Preop assessment of probable difficulty: questionable / suspicious difficult airway Preoxygenation: bag valve mask SEDATION / ANESTHESIA Anesthesia method: anesthesia POST PROCEDURE DETAILS: Procedure outcome: successful Airway event: no complications Anesthesia Procedure Notes - Hilda Bello APRN, CRNA - 10/24/2019 10:05 AM CDTAssociated Order(s): Invasive Catheter Invasive Catheter Date/Time: 10/24/2019 8:56 AM Performed by: Hilda Bello APRN, CRNA Authorized by: Janel Hoff M.D. Location: OR PROCEDURE DETAILS: Line type: arterial Laterality: right Location: radial Location details: new site Age group: adult Catheter diameter: 20 Ga Technique: ultrasound guided Ultrasound guidance: image not saved Monitored: no Number of attempts: 5 or more UNIVERSAL PROTOCOL All relevant documentation and testing were reviewed and available. All required blood products, implants, devices and or special equipment were made available as applicable. Pre-procedure verificationwas conducted and the correct site was marked if required. A fire risk assessment was done as applicable. The procedural time-out was conducted prior to performing the procedure and confirmed in a procedural pause. PRE-PROCEDURE DETAILS: Appropriate hand hygiene, gown, cap, mask, protective eyewear, sterile gloves, skin preparation, sterile drape, and strict aseptic technique were utilized as applicable for the procedure.: yes Skin preparation: chlorhexidine SEDATION / ANESTHESIA Anesthesia method: anesthesia POST-PROCEDURE DETAILS: Procedure completed successfully: yes Line secured: secured with sutureless device Chlorhexidine disc around insertion site and under catheter with slight turn: yes Complications - arterial: none COMMENTS Attempt R/L radial per SILVIA, placed per Dr. Navarro Anesthesia Preprocedure Evaluation - Janel Hoff M.D. - 10/24/2019 9:16 AM CDT Preprocedure Anesthesia & H&P Assessment Procedure Summary Anesthesia Start Date/Time: 10/24/19 0803 Procedure: OPEN REDUCTION, INTERNAL FIXATION TIBIA. (Left ) Diagnosis: Fracture Tibial Plateau Closed Initial Left [S82.142A] Pre-op diagnosis: Fracture Tibial Plateau Closed Initial Left [S82.142A]. Location: [place] [address] ROMB 01 0 / [facility] in [place], [place] Provider: Raudel Lewis M.D. Pertinent components of the patient's history including current problem list, medical history, surgical history, family history, social history, medications and allergies were reviewed. Present illnessand pre-op diagnosis were confirmed. The planned surgery / procedure was verified with the patient /legal guardian. The patient's general health condition remains unchanged PROBLEM LIST Relevant Problems CV (+) Other Secondary Pulmonary Hypertension (HCC) RESP (+) Chronic Obstructive Pulmonary Disease Without Exacerbation (HCC) (+) Other Secondary Pulmonary Hypertension (HCC) Other (+) Fracture Rib Multiple Closed Initial Right (+) Fracture Tibial Plateau Closed Initial Left (+) Traumatic Fracture Sternum Initial OBJECTIVE PHYSICAL EXAMINATION Airway (HEENT) Mallampati: II TM Distance: >3 FB Neck ROM: Full Mouth Opening: >3 cm Facies (pediatrics): normal Cardiovascular Rhythm: Regular Rate: Normal Cardiovascular Assessment: cardiovascular normal Functional Capacity: >4 METS Pulmonary Pulmonary Assessment: Clear General / Constitutional Constitutional Assessment: Normal General State of Health:: calm Neurological Neurologic Assessment:??alert and alert and oriented x 3 Dental Dental Assessment: dentition intact ASSESSMENT / PLAN ANESTHESIA PLAN ASA: 3 Anesthesia Plan: general Patient seen and allergies reviewed, anesthesia plan and risks discussed directly with patient /legal guardian or through an sign language interpreter. Risks/Benefits/Alternatives of Blood transfusion discussed with patient / legal guardian, including an opportunity to ask questions and/or decline some or all transfusion therapies. The patient / legalguardian consented to the use of all blood products, as deemed medically necessary Approval to Proceed: approved for anesthesia documented in this encounter Plan of Treatment Not on filedocumented as of this encounter Procedures Procedure Name Priority Date/Time Associated Comments Diagnosis LDA ANE ENDOTRACHEAL Routine 10/24/2019 10:09 Res ults for this AIRWAY AM CDT procedure are i n the results section. LDA ANE ARTERIAL LINE Routine 10/24/2019 10:05 Re sults for this INSERTION AM CDT procedure are i n the results section. [place] ARTL CATH/CNULA Routine 10/24/2019 10:05 Resul ts for this MONITOR PERC AM CDT procedure are i n the results section. documented in this encounter Results LDA ANE ENDOTRACHEAL AIRWAY (10/24/2019 10:09 AM CDT) Narrative Hilda Bello APRN, CRNA - 0 10:09 AM CDT Hilda Bello APRN, CRNA ? 10/24/2019 10:10 AM Airway Date/Time: 10/24/2019 8:29 AM Performed by: Hilda Bello APRN, CR NA Authorized by: Janel Hoff M.D. Patient location during procedure: OR / Procedure Area PROCEDURE DETAILS: Mask difficulty assessment: easy mask Final airway type: direct laryngoscopy, intubation Laryngeal Manipulation: no ?? Final airway difficulty of direct laryng oscopy (DL): 0-easy Final best view of glottic structures - Cormack/Lehane Score: grade 2A ETT location: oral Adult blade type: Han 2 Adult tube size: 7 Adult ETT distance at teeth/gum: 19 Oral tube type: standard ETT Cuffed: yes Number of attempt to successful placemen t: 1 Airway confirmation: bilateral breath so unds, positive ETCO2 and bilateral chest rise Other previous techniques attempted: non e Additional Comments Pre02, IV induction, R/L eyes taped, Healy dventilated, ETT placed ?? PRE PROCEDURE DETAILS: Pre evaluation for airway management: pr ocedure Urgency: elective Preop assessment of probable difficulty: questionable / suspicious difficult airway Preoxygenation: bag valve mask SEDATION / ANESTHESIA Anesthesia method: anesthesia POST PROCEDURE DETAILS: ? Procedure outcome: successful ?? Airway event: no complications Janel Hoff M.D. ANESTHESIA ORDERABLES [place] ARTL CATH/CNULA MONITOR PERC, LDA ANE ARTERIAL LINE INSERTION (10/24/2019 10:05 AM CDT) Narrative Hilda Bello APRN, CRNA - 0 10:05 AM CDT Hilda Bello APRN, CRNA ? 10/24/2019 10:08 AM Invasive Catheter Date/Time: 10/24/2019 8:56 AM Performed by: Aec, Hilda J, FORESTER AIDE, CR NA Authorized by: Janel Hoff M.D. Location: OR PROCEDURE DETAILS: Line type: arterial ?? Laterality: right Location: radial Location details: new site ? Age group: adult Catheter diameter: 20 Ga Technique: ultrasound guided ?? Ultrasound guidance: image not saved ??Monitored: no ?? Number of attempts: 5 or more UNIVERSAL PROTOCOL All relevant documentation and testing w ere reviewed and available. All required blood products, implants, devic es and or special equipment were made available as applicable. Pre-proced ure verification was conducted and the correct site was marked if required. A fire risk assessment was done as applicable. The procedural time-out w as conducted prior to performing the procedure and confirmed in a procedu ral pause. PRE-PROCEDURE DETAILS: Appropriate hand hygiene, gown, cap, mas k, protective eyewear, sterile gloves, skin preparation, sterile drape, and strict aseptic technique were utilized as applicable for the procedure .: yes ?? Skin preparation: chlorhexidine ?? SEDATION / ANESTHESIA Anesthesia method: anesthesia POST-PROCEDURE DETAILS: Procedure completed successfully: yes ?? Line secured: secured with sutureless de vice Chlorhexidine disc around insertion site and under catheter with slight turn: yes ?? Complications - arterial: none COMMENTS Attempt R/L radial per OLIVE PACKER, placed per Dr. Navarro Janel Hoff M.D. PROCEDURE/MINOR SURGICAL ORD ERABLES documented in this encounter Visit Diagnoses Not on filedocumented in this encounter Administered Medications Inactive Administered Medications - up to 3 most recent administrations Medication Order MAR Action Action Date Dose Rate Site ceFAZolin in dextrose (iso-osm) IVPB Given 10/24/2019 9:20 AM CD T 2 g 1 g (ANCEF) 1 g, intravenous, at 200 mL/hr, Administer over 15 Minutes, Every 8 hours, First dose on Tessie 10/24/19 at 0715, For 2 doses, premix bag, Drug Monitoring Program: Pharmacist to adjust medication dosing based on indication and drug clearance factors., Indications: Prophylaxis, surgical ePHEDrine (PF) injection Given 10/24/2019 8:37 AM CDT 15 mg intravenous, As needed, Starting on Tessie 10/24/19 at 0837, Anesthesia Intra-op Given 10/24/2019 8:30 AM CDT 10 mg fentaNYL injection (SUBLIMAZE) Given 10/24/2019 8:24 AM CDT 100 mcg intravenous, As needed, Starting on Tessie 10/24/19 at 0824, Anesthesia Intra-op HYDROmorphone (PF) injection 0.4 mg Given 10/24/2019 10:47 AM CD T 0.4 mg (DILAUDID) 0.4 mg, intravenous, Every 2 hour PRN, severe pain or score 7-10 of 10, Starting on Mon10/23/19 at 0438 Given 10/24/2019 10:15 AM CDT 0.4 mg Given 10/24/2019 9:59 AM CDT 0.6 mg ketamine injection (KETALAR) Given 10/24/2019 8:24 AM CDT 50 mg As needed, Starting on Tessie 10/24/19 at 0824, Anesthesia Intra-op lactated ringers New Bag 10/24/2019 8:03 AM CDT intravenous, Continuous Infusion: Per Instructions PRN, Starting on Tessie 10/24/19 at 0803, Anesthesia Intra-op lactated ringers New Bag 10/24/2019 10:16 AM CDT intravenous, Continuous Infusion: Per Instructions PRN, Starting on Tessie 10/24/19 at 0803, Anesthesia Intra-op New Bag 10/24/2019 8:03 AM CDT ondansetron (PF) injection (ZOFRAN) Given 10/24/2019 10:25 AM CDT 4 mg intravenous, As needed, Starting on Tessie 10/24/19 at 1025, Anesthesia Intra-op phenylephrine 80 Rate/Dose Change 10/24/2019 9:33 AM 0.2 mcg/kg/min 1 1.4 mL/hr mcg/mL in NaCl 0.9% CDT 250 mL infusion 0-1 mcg/kg/min ? 76 kg Dosing weight (0-57 mL/hr), intravenous, Continuous, Starting on Tessie 10/24/19 at 0745, Intra-Op, Premix ba mg in 250 mL, Patient Type: Standard, initiate at: Other, Rate: Per Provider, Titrate at: Other, Titrate: Per Provider, Goal: Other, Goal: Per Provider Rate/Dose Change 10/24/2019 9:20 AM CDT 0.3 mcg/kg/min 17.1 mL/hr Rate/Dose Change 10/24/2019 9:08 AM CDT 0.4 mcg/kg/min 22.8 mL/hr phenylephrine injection Given 10/24/2019 8:48 AM CDT 300 mcg intravenous, As needed, Starting on Tessie 10/24/19 at 0841, Anesthesia Intra-op Given 10/24/2019 8:41 AM CDT 200 mcg Given 10/24/2019 8:38 AM CDT 200 mcg propofoL injection (DIPRIVAN) Given 10/24/2019 8:24 AM CDT 150 mg intravenous, As needed, Starting on Tessie 10/24/19 at 0824, Anesthesia Intra-op rocuronium injection (ZEMURON) Given 10/24/2019 8:34 AM CDT 30 mg As needed, Starting on Tessie 10/24/19 at 0834, Anesthesia Intra-op succinylcholine (PF) injection (ANECTINE ) Given 10/24/2019 8:24 AM CDT 100 mg intravenous, As needed, Starting on Tessie 10/24/19 at 0824, Anesthesia Intra-op sugammadex injection (BRIDION) Given 10/24/2019 10:38 AM CDT 160 mg As needed, Starting on Tessie 10/24/19 at 1038, Anesthesia Intra-op tranexamic acid in NaCl IVPB 1,000 mg Given 10/24/2019 10:15 AM CDT 1 g (CYCLOKAPRON) 1,000 mg (1 g), intravenous, at 300 mL/hr, Administer over 20 Minutes, Once, On Tessie 10/24/19 at 0715, For 1 dose, Intra-Op, Administer in OR upon induction premix bag Given 10/24/2019 9:27 AM CDT 1 g documented in this encounter Care Teams Cook Specialty Relationship Specialty Start Date End Date Ro Norton APRN, C.N.P., PCP - General Family Medicine D.N.P. [address] [phone] documented as of this encounter
--- OUTSIDE RECORDS SUMMARY | 2021-12-31 07:55 | XMS_ITS | Encounter Summary ---
:1970 Author Organization [facility] Address [address] [place] [address] Care Team Providers Name Role Phone Ro Norton APRN C.N.Kirsty, D.N.P. Primary Care Provider Reason for Referral Outpatient (Routine) - Closed Specialty Diagnoses / Procedures Referred By Contact Refer red To Contact Orthopedic Surgery Angelita Buchanan APRN, [place] C.NDean, M.S.N. [address] [place] [phone] Referral ID Status Reason Start Date Expiration Date Visits Requ ested Visits Authorized [id number] Closed 10/24/2019 10/23/2020 1 1 Scheduling Instructions Sems - est utpatient (Routine) - Closed Specialty Diagnoses / Procedures Referred By Contact Refer red To Contact Orthopedic Surgery Angelita Buchanan APRN, [place] C.N.PRaffy, M.S.N. [address] [place] [phone] Referral ID Status Reason Start Date Expiration Date Visits Requ ested Visits Authorized [id number] Closed 10/24/2019 10/23/2020 1 1 Scheduling Instructions Sems - est - 830 am Encounter Details Date Type Department Care Team Description 10/24/2019 Orders Only Department of Dewayne, Angelita K, Fracture T ibial Orthopedic Surgery in [place], CShikhaP., Plate au Closed Initial [place], [place] M.S.N. Left (Primary Dx) [address] [place] [phone] Social History Tobacco Use Types Packs/Day Years [...] do you attend moravian or Never 2021 catholic services? Do you [...] or slept in a detention (including now)? Sex Assigned at Date Recorded Female 10/14/2020 12:54 PM CDT documented as of this encounter Plan of Treatment Scheduled Referrals Name Type Priority Associated Order Schedule Diagnoses Orthopedic Surgery Outpatient Referral Routine Ex pected: office visit 11/13/2019 (clinic) (Approximate), Expires: 10/23/2022 Orthopedic Surgery Outpatient Referral Routine Ex pected: office visit 12/13/2019 (clinic) (Approximate), Expires: 10/23/2022 documented as of this encounter Results DX [...] Fracture Tibial Plateau Closed Initial L eft - Primary Fracture Tibial Plateau Closed Initial L eft documented in this encounter Care Teams Draw Press Operator Relationship Specialty Start Date End Date Ro Norton APRN, C.N.P., PCP - General Family Medicine D.N.P. [address] [phone] (work) documented as of this encounter
--- OUTSIDE RECORDS SUMMARY | 2021-12-31 07:56 | XMS_ITS | Encounter Summary ---
:1970 Author Organization [facility] Address [address] [place] [address] Care Team Providers Name Role Phone Ro Norton APRN C.NDean, D.N.P. Primary Care Provider Encounter Details Date Type Department Care Team Description 06/04/2019 E-Visit [facility] Express Paige Cooley, RE: E-Visit Submission: Care at the [place] C.N.Kirsty, [facility] Building on the [address] D.N.P. Floor [address] [facility] [address] [place] [phone] Social History Tobacco Use Types Packs/Day Years [...] do you attend islam or Never 2021 uatsdin services? Do you [...] or slept in a snf (including now)? Sex Assigned at Date Recorded Female 10/14/2020 12:54 PM CDT documented as of this encounter Plan of Treatment Not on filedocumented as of this encounter Visit Diagnoses Diagnosis Rhinitis - Primary documented in this encounter Care Teams Management Trainee Program Stores Relationship Specialty Start Date End Date Ro Norton APRN, C.N.P., PCP - General Family Medicine D.N.P. [address] [phone] documented as of this encounter
--- OUTSIDE RECORDS SUMMARY | 2021-12-31 07:56 | XMS_ITS | Encounter Summary ---
:1970 Author Organization [facility] Address [address] [place] [address] Care Team Providers Name Role Phone Ro Norton APRN C.N.Kirsty, Kristin Primary Care Provider Encounter Details Date Type Department Care Team Description 08/07/2019 Clinical Communication Department of [facility] Ro Norton, Medicine, [place] [facility] C.N.PRaffy, Clinic, in [place] [address] [phone] Social History Tobacco Use Types Packs/Day Years [...] do you attend faith or Never 2021 temple services? Do you [...] slept in a senior care (including now)? Sex Assigned at Date Recorded Female 10/14/2020 12:54 PM CDT documented as of this encounter Miscellaneous Notes Telephone Encounter - Andreea Mercedes - 08/07/2019 3:55 PM CDT Nitish Schulz, Ro Norton APRN, [...] the phone between 7 am-6 pm, Monday-Monday. [place]: [phone] [place]: [phone] [place]: [phone] [place]: [phone] [place]: [phone] [place]: [phone] [place] or [place] [facility]: [phone] [place], [place], or [place] clinics: [phone] [place]:[phone] [place]: [phone] Thank you for trusting your health care to [facility]. documented in this encounter Plan of Treatment Not on filedocumented as of this encounter Visit Diagnoses Not on filedocumented in this encounter Care Teams Clipper Operator Relationship Specialty Start Date End Date Ro Norton APRN, C.N.P., PCP - General Family Medicine D.N.P. [address] [phone] documented as of this encounter
--- OUTSIDE RECORDS SUMMARY | 2021-12-31 07:56 | XMS_ITS | Encounter Summary ---
:1970 Author Organization [facility] Address [address] [place] [address] Care Team Providers Name Role Phone Ro Norton APRN, C.N.P., D.N.P. Primary Care Provider Reason for Visit Reason Comments Communication please triage Echo. Encounter Details Date Type Department Care Team Description 05/28/2019 Clinical Department of [place], Communication Communication Cardiovascular Kim Cabrera, (please tria ge Diseases in [place], R.N. Echo. ) [address] [facility], [phone] [place] [phone] Social History Tobacco Use Types Packs/Day [...] or relatives? How often do you attend jew or Never 2021 lutheran services? Do you belong to any clubs or No 02/25/2021 organizations such as jew groups, unions, fraternal or athletic groups, or [...] or slept in a prison (including now)? Sex Assigned at Date Recorded Female 10/14/2020 12:54 PM CDT documented as of this encounter Miscellaneous Notes Telephone Encounter - Radha Belle I - 06/25/2019 8:57 AM CDT lmtc Telephone Encounter - Kim Rodgers R.N. - 06/24/2019 2:29 PM CDT Nitish Garcia, Not sure if this has been done? Could we please call or schedule and send a letter to pt? Telephone Encounter - Kim Rodgers R.N. - 06/11/2019 11:20 AM CDT Nitish Garcia, I think this is one that we could call and schedule when schedules open up again. It will most likely be difficult to get a hold of her. I would probably schedule it and send a letter. I made multiple attempts to call her to defer her and she never called back. She was scheduled in but was deferredI believe. Telephone Encounter - Kim Rodgers R.N. - 06/06/2019 4:08 PM CDT Attempted to call no answer. Telephone Encounter - Kim Rodgers R.N. - 06/04/2019 4:08 PM CDT Lm x 2 . Telephone Encounter - Kim Rodgers R.N. - 06/03/2019 1:26 PM CDT LM for return call. Telephone Encounter - Sanjay Szymanski M.D. - 06/03/2019 11:16 AM CDT Ok, I think we can schedules this on an elective basis once routine echoes have been restarted. Thanks Telephone Encounter - Kim Rodgers R.N. - 06/03/2019 10:[address] Szymanski, I documented in my first message the incorrect information on Pt echo final impressions in Error I believe, because I can not find this information either as documented. Thank you for bringing this to my attention. I could not find any Echo report on file. Do you want pt to have an echo based on reason for ordering. Chronic COPD. Pulmonary HTN. Celso last note on 05/07/19 stated the following: Allison Schulz presents for medication refills. She recently moved from [place], and is out of her inhalers for management of her emphysema. Patient states that she was diagnosed with COPD, pulmonary hypertension and a hole in her heart. She states she had heart surgery to repair the swollen her heart several years ago in [place]. She does state that she was advised to do yearly echocardiograms and pulmonary function testing, which she has not done in several years. She currently smokes between 4-5 cigarettes daily. Telephone Encounter - Corina Bee R.N. - 05/31/2019 11:15 AM CDT Martha, could you look for this information? I could not find it. Telephone Encounter - Sanjay Szymanski M.D. - 05/29/2019 8:38 AM CDT I cannot find the echo report referenced below in Ro Norton's note, in [facility], or elsewhere in the chart. Can you provide the date of that echo report? If it's less than one year ago, this could be deferredfor 1 year. Telephone Encounter - Kim Rodgers R.N. - 05/28/2019 3:43 PM CDT Please Triage echo need ordered by Ro Norton COSMETICS AND TOILETRIES SALESPERSON. No visit scheduled with Dehydration Unit Operator. She ordered on 05/07/19 with visit for Pulmonary HTN and Copd Exacerbation. The below information documented was documented in ERROR. 06/03/19 noted this. Her note stated the following: Final Impressions 1. Possible bicuspid aortic valve with sclerotic/calcified nodules on the posterior cusp. Mild aortic stenosis; mean systolic gradient 16 mmHg, valve area 1.63 cm2. 2. Trivial aortic valve regurgitation. 3. Normal left ventricular chamber size; calculated ejection fraction 60%. 4. Global averaged left ventricular longitudinal peak systolic strain is normal at ?19 % (normal = more negative than ?18%). 5. Grade 1/4 left ventricular diastolic dysfunction, consistent with low to normal left ventricular filling pressure. 6. Normal right ventricular size and systolic function. 7. Ascending aorta dilatation (diameter 43 mm at mid level). documented in this encounter Plan of Treatment Not on filedocumented as of this encounter Visit Diagnoses Not on filedocumented in this encounter Care Teams Harbor Department Manager Relationship Specialty Start Date End Date Ro Norton APRN, C.N.P., PCP - General Family Medicine D.N.P. [address] [phone] documented as of this encounter
--- OUTSIDE RECORDS SUMMARY | 2021-12-31 07:56 | XMS_ITS | Encounter Summary ---
:1970 Author Organization [facility] Address [address] [place] [address] Care Team Providers Name Role Phone Ro Norton APRN C.N.P., D.N.P. Primary Care Provider Encounter Details Date Type Department Care Team Description 07/08/2019 Orders Only RST PCP [facility] Ro Norton, Screen ing Mammogram Breast Cancer; MORGAN C.N.P., D. N.P. Screening Examination Diabetes Mellitus; [address] [place] [address] [place] [phone] (Wo rk) Social History Tobacco Use Types [...] do you attend faith or Never 2021 druze services? Do you belong to any clubs [...] Visit Diagnoses Diagnosis Screening Mammogram Breast Cancer Screening Examination Diabetes Mellitus Screening Lipid documented in this encounter Care Teams Jive Developer Relationship Specialty Start Date End Date Ro Norton APRN, C.N.P., PCP - General Family Medicine D.N.P. [address] [phone] documented as of this encounter
--- OUTSIDE RECORDS SUMMARY | 2021-12-31 07:56 | XMS_ITS | Encounter Summary ---
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 within the frontal scalp near the bridge of the nose which could represent retained foreign bodies. Narrative 10/23/2019 12:21 AM CDT EXAM: CT HEAD WITHOUT IV CONTRAST COMPARISON: None FINDINGS: No intracranial hemorrhage, ma ss effect or acute infarct. No extra-axial fluid collections or hydroce phalus. No small hematoma overlying the right frontal bone. Scattered hyperdensi ties within the soft tissues could represent retained foreign bodies. Mild mucosal thickening in both maxillary sinuses. The remainder the paranasal sin uses and mastoid air cells are well-aerated. Procedure Note Endy Ortiz M.D. - 10/23/2019Form atting of this note might be different from the original. EXAM: CT HEAD WITHOUT IV CONTRAST COMPARISON: None FINDINGS: No intracranial hemorrhage, ma ss effect or acute infarct. No extra-axial fluid collections or hydroce phalus. No small hematoma overlying the right frontal bone. Scattered hyperdensi ties within the soft tissues could represent retained foreign bodies. Mild mucosal thickening in both maxillary sinuses. The remainder the paranasal sin uses and mastoid air cells are well-aerated. IMPRESSION: 1. No acute intracranial findings. 2. Small right frontal soft tissue hemat tristen. Scattered radiopaque foreign bodies within the frontal scalp near the bridge of the nose which could represent retained foreign bodies. Yvon Alcantara M.D. IMG CT PROCEDURES DX Chest Portable 1 View (10/22/2019 10:29 PM CDT) Anatomical Region Laterality Modality Chest, Thoracic RST LOS, Thoracic ARZ LOS, Thoracic N/A Computed Radiography FLA LOS Specimen (Source) Anatomical Collection Method Collection Time Re ceived Time Location / / Volume Laterality 10/22/2019 10:41 PM CDT Impressions 10/22/2019 10:49 PM CDT Widened mediastinum with consolidation in the perihilar right lung, adjacent to the descending aorta. Findin gs could represent pulmonary contusion, however vascular injury is also consider ation. CT of the chest is highly recommended for further evaluation. Part ially visualized mildly displaced fracture of the posterior right 9th rib. Sternotomy. The left lung is clear. Narrative 10/22/2019 10:49 PM CDT EXAM: DX CHEST PORTABLE 1 VIEW Procedure Note Endy Ortiz M.D. - 10/22/2019Form atting of this note might be different from the original. EXAM: DX CHEST PORTABLE 1 VIEW IMPRESSION: Widened mediastinum with consolidation i n the perihilar right lung, adjacent to the descending aorta. Findin gs could represent pulmonary contusion, however vascular injury is also consider ation. CT of the chest is highly recommended for further evaluation. Part ially visualized mildly displaced fracture of the posterior right 9th rib. Sternotomy. The left lung is clear. Yvon Alcantara M.D. IMG DIAGNOSTIC IMAGING PROCE [facility] DX Pelvis 1-2 Views (10/22/2019 10:28 PM CDT) Anatomical Region Laterality Modality Pelvis, Musculoskeletal RST LOS, Musculoskeletal ARZ N/A Computed Radiography LOS, Muskuloskeletal FLA LOS Specimen (Source) Anatomical Collection Method Collection Time Re ceived Time Location / / Volume Laterality 10/22/2019 10:40 PM CDT Impressions 10/22/2019 10:41 PM CDT No acute fractures of the pelvis. Narrative 10/22/2019 10:41 PM CDT EXAM: DX PELVIS 1-2 VIEWS Procedure Note Endy Ortiz M.D. - 10/22/2019Form atting of this note might be different from the original. EXAM: DX PELVIS 1-2 VIEWS IMPRESSION: No acute fractures of the pelvis. Yvon Alcantara M.D. IMG DIAGNOSTIC IMAGING PROCE [facility] Ethanol Level, Serum (10/22/2019 9:51 PM CDT) athologist Signature Ethanol, P <10 <10 mg/dL 10/22/2019 [facility] 10:20 PM CDT Specimen Anatomical Collection Method Collection Time Receive d Time (Source) Location / / Volume Laterality Blood (Blood, 10/22/2019 9:51 PM 10/22/19 20 9:55 Venous) CDT PM CDT Yvon Alcantara M.D. LAB BLOOD NON ADD-ON Performing Organization Address City/State/ZIP Code Phon e Number [facility]- [address] [place], [place] [address] [address] [place] [address] System in [place] [address] (ABNORMAL) Comprehensive Metabolic Panel (10/22/2019 9:51 PM CDT) athologist Signature Potassium, P 4.4 3.6 - 5.2 10/22/2019 [facility] mmol/L 10:21 PM CDT Sodium, P 138 135 - 145 10/22/2019 [facility] mmol/L 10:21 PM CDT Chloride, P 107 98 - 107 10/22/2019 [facility] mmol/L 10:21 PM CDT Bicarbonate, P 21 (L) 22 - 29 10/22/2019 [facility] mmol/L 10:20 PM CDT Anion Gap, P 10 7 - 15 10/22/2019 [facility] 10:21 PM CDT BUN (Blood Urea 18 6 - 21 10/22/2019 [facility] Nitrogen), P mg/dL 10:20 PM CDT Creatinine 0.78 0.59 - 10/22/2019 [facility] 1.04 mg/dL 10:20 PM CDT eGFR-Black/Afri >90 >=60 10/22/2019 [facility] can Mexican mL/min/BSA 10:20 PM CDT Comment: ----ADDITIONAL INFORMATION---- Estimated GFR calculated using the 2009 CKD_EPI creatinine equation. eGFR Non-Black/ >90 >=60 mL/min/BSA 10/22/2019 10:20 PM CDT [facility] Comment: ----ADDITIONAL INFORMATION---- Estimated GFR calculated using the 2009 CKD_EPI creatinine equation. Calcium, Total, P 9.0 8.6 - 10.0 mg/dL 10/22/2019 10:2 0 PM [facility] CDT Glucose, P 109 70 - 140 mg/dL 10/22/2019 10:20 PM [facility] CDT Protein, Total, P 6.6 6.3 - 7.9 g/dL 10/22/2019 10:20 PM [facility] CDT Albumin, P 3.5 3.5 - 5.0 g/dL 10/22/2019 10:20 PM [facility] CDT Aspartate Aminotransferase 339 (H) 8 - 43 U/L 10/22/2019 1 0:20 PM [facility] (AST), P CDT Alkaline Phosphatase, P 155 (H) 35 - 104 U/L 10/22/2019 10 :20 PM [facility] CDT Alanine Aminotransferase 189 (H) 7 - 45 U/L 10/22/2019 10: 20 PM [facility] (ALT), P CDT Bilirubin, Total, P 0.5 <=1.2 mg/dL 10/22/2019 10:20 P M [facility] CDT Specimen Anatomical Collection Method Collection Time Receive d Time (Source) Location / / Volume Laterality Blood (Blood, 10/22/2019 9:51 PM 10/22/19 9:55 Venous) CDT PM CDT Yvon Alcantara M.D. LAB BLOOD ADD-ON Performing Organization Address City/State/ZIP Code Phon e Number [facility]- [address] [facility] [place], [place] [address] [address] [facility] [place] [address] System in [place] [address] [place] [address] (ABNORMAL) CBC without Differential (10/22/2019 9:51 PM CDT) [facility] Method Time Signature Hemoglobin 13.2 11.6 - 10/22/2019 [facility] 15.0 g/dL 9:57 PM CDT Hematocrit 39.8 35.5 - 10/22/2019 [facility] 44.9 % 9:57 PM CDT Erythrocytes 3.95 3.92 - 10/22/2019 [facility] 5.13 9:57 PM CDT x10(12)/L MCV 100.8 (H) 78.2 - 10/22/2019 [facility] 97.9 fL 9:57 PM CDT RBC Distrib Width 12.8 12.2 - 10/22/2019 [facility] 16.1 % 9:57 PM CDT Platelet Count 227 157 - 371 10/22/2019 [facility] x10(9)/L 9:57 PM CDT Leukocytes 13.9 (H) 3.4 - 9.6 10/22/2019 [facility] x10(9)/L 9:57 PM CDT Specimen Anatomical Collection Method Collection Time Receive d Time (Source) Location / / Volume Laterality Blood (Blood, 10/22/2019 9:51 PM 10/22/19 9:55 Venous) CDT PM CDT Yvon Alcantara M.D. LAB BLOOD ADD-ON Performing Organization Address City/State/ZIP Code Phon e Number [facility]- [address] [facility] [place], [place] [address] [facility] [place] [address] System in [place] [address] documented in this encounter Visit Diagnoses Diagnosis Fracture Tibial Plateau Closed Initial L eft - Primary Fracture Sternum Body Closed Initial Fracture Rib Multiple Closed Initial Rig ht Other Secondary Pulmonary Hypertension ( HCC) Chronic Obstructive Pulmonary Disease Wi thout Exacerbation (HCC) documented in this encounter Administered Medications Inactive Administered Medications - up to 3 most recent administrations Medication Order MAR Action Action Date Dose Rate Site fentaNYL injection 75 mcg Given 10/22/2019 10:01 PM CDT 75 mcg (SUBLIMAZE) 75 mcg, intravenous, Once, On Mon10/22/19 at 2156, For 1 dose fentaNYL injection 75 mcg (SUBLIMAZE) Given 10/23/2019 2:58 AM CDT 75 mcg 75 mcg, intravenous, Every 15 min PRN, severe pain or score 7-10 of 10, Starting on Mon10/23/19 at 0029, For 3 doses Given 10/23/2019 12:42 AM CDT 75 mcg iohexoL 300 mg iodine/mL solution 80 mL Given 10/22/2019 11:53 P M CDT 80 mL (OMNIPAQUE) 80 mL, intravenous, Once in imaging, contrast, Starting on Mon10/22/19 at 2306, For 1 dose NaCl 0.9 % bolus 1,000 mL New Bag 10/22/2019 9:40 PM CDT 10 mL 1000 mL/hr 1,000 mL, intravenous, at 1,000 mL/hr, Administer over 1 Hours, Once, On Mon10/22/19 at 2138, For 1 dose NaCl 0.9% infusion New Bag 10/23/2019 12:40 AM CDT 125 mL/hr 125 mL/hr 125 mL/hr, intravenous, Continuous, Starting on Mon10/23/19 at 0035 sodium chloride 0.9 % flush 50 mL Given 10/22/2019 11:53 PM CDT 50 mL 50 mL, intravenous, Once, On Mon10/22/19 at 2308, For 1 dose documented in this encounter Active and Recently Administered Medications Times are shown in CDT. Scheduled Medication Order 10/21/2019 10/22/2019 10/23/2019 fentaNYL injection 75 mcg (SUBLIMAZE) (COMPLETED) 2200 (Given - Provider: Nickie Arita R.N.) 75 mcg, intravenous, Once, On Mon10/22/19 at 2156, For 1 dose NaCl 0.9 % bolus 1,000 mL (COMPLETED) 21 40 (New Bag - Provider: Stefany Castellon(R)(CT), R.TRaffy(R))2240 (Stopped - Provider: Nickie Arita R.N.) 1,000 mL, intravenous, at 1,000 mL/hr, A dminister over 1 Hours, Once, On Mon10/22/19 at 2138, For 1 dose sodium chloride 0.9 % flush 50 mL (COMPLETED) 2353 (Given - Provider: Stefany Castellon(R)(CT), R.Ada(R)) 50 mL, intravenous, Once, On Mon10/22/19 at 2308, For 1 dose Continuous Medication Order 10/21/2019 10/22/2019 10/23/2019 NaCl 0.9% infusion 0040 (New Bag - Provider: Florina Walls R.N.)0242 (Continue to External Healthcare Facility - Provider: Florina Walls R.N.) 125 mL/hr, intravenous, Continuous, Starting on Mon10/23/19 at 00 35 PRN Medication Order 10/21/2019 10/22/2019 10/23/2019 fentaNYL injection 75 mcg (SUBLIMAZE) 0042 (Given - Provider: Florina Walls R.N.)0258 (Given - Provider: Florina Walls R.N.) 75 mcg, intravenous, Every 15 min PRN, s evere pain or score 7-10 of 10, Starting on Mon10/23/19 at 0029, For 3 doses iohexoL 300 mg iodine/mL solution 80 mL (OMNIPAQUE) (COMPLET ED) 2353 (Given - Provider: Stefany Castellon(R)(CT), Stefany(R) - Comment: [phone]) 80 mL, intravenous, Once in imaging, con trast, Starting on Mon10/22/19 at 2306, For 1 dose documented in this encounter Care Teams Chest Pain Coordinator Relationship Specialty Start Date End Date Ro Norton APRN, C.N.P., PCP - General Family Medicine D.N.P. [id number] [address] documented as of this encounter
--- OUTSIDE RECORDS SUMMARY | 2021-12-31 07:56 | XMS_ITS | Encounter Summary ---
:1970 Author Organization [facility] Address [address] [place] [address] Care Team Providers Name Role Phone Ro Norton APRN C.N.PRaffy, D.N.P. Primary Care Provider Reason for Referral Outpatient (Routine) - Closed Specialty Diagnoses / Procedures Referred By Contact Refer red To Contact Family Medicine Diagnoses Chronic Obstructive Pulmonary Disease Exacerbation (HCC) Ro Norton [facility] MORGAN C.N.P., D.N.P. [address] [place] [address] Referral ID Status Reason Start Date Expiration Date Visits Requ ested Visits Authorized [id number] Closed 05/07/2019 05/06/2020 1 1 Reason for Visit Reason Comments Establish Care needs meds Appointment Request (Routine) - Closed Specialty Diagnoses / Procedures Referred By Contact Refer red To Contact Family Medicine Referral ID Status Reason Start Date Expiration Date Visits Requ ested Visits Authorized [id number] Closed 05/06/2019 05/05/2020 1 1 Encounter Details Date Type Department Care Team Description 05/07/2019 Comprehensive Visit Department of Ro Norton ic Obstructive Pulmonary Disease Exacerbation (HCC) (Primary Dx); Family Medicine, MORGAN Ansari, Eusebia moreira Pulmonary Hypertension (HCC) [facility], in [address] [place], [place] [address] [place], [place] [phone] [id number] (Work) [phone] Social History Tobacco Use Types Packs/Day Years [...] do you attend restoration or Never 2021 hindu services? Do you [...] Sign Reading Time Taken Comments Blood Pressure 122/93 05/07/2019 3:23 PM CDT Pulse 82 05/07/2019 3:23 PM CDT Temperature 36.2 ??C (97.2 ??F) 05/07/2019 3:23 PM CDT Respiratory Rate 18 05/07/2019 3:23 PM CDT Oxygen Saturation 96% 05/07/2019 3:23 PM CDT Inhaled Oxygen Concentration - - Weight 72.1 kg (158 lb 15.2 oz) 05/07/2019 3:23 PM CDT Height 176 cm (5' 9.29) 05/07/2019 3:23 PM CDT Body Mass Index 23.28 05/07/2019 3:23 PM CDT documented in this encounter Progress Notes Ro Norton, MORGAN, C.N.P., D.N.P. - 05/07/2019 3:30 PM CDT SUBJECTIVE CHIEF COMPLAINT/REASON FOR VISIT Allison Schulz is a 48 y.o. female who presents for evaluation of Establish Care (needs meds). HISTORY OF PRESENT ILLNESS Allison Schulz presents for medication refills. She recently moved from [place], and is out of her inhalers for management of her emphysema. Patient states that she was diagnosed with COPD, pulmonary hypertension and a hole in her heart. She states she had heart surgery to repair the swollen her heartseveral years ago in [place]. She does state that she was advised to do yearly echocardiograms and pu lmonary function testing, which she has not done in several years. She currently smokes between 4-5 cigarettes daily. REVIEW OF SYSTEMS A brief review of systems was negative except for that mentioned in the history of present of illness. CURRENT MEDICATIONS Current Outpatient Medications Medication Sig ??? albuterol inhaler Inhale 2 puffs 4 (four) times a day. ??? ascorbic acid, vitamin C, (vitamin C) 100 mg tablet Take 100 mg by mouth daily. ??? multivitamin capsule Take 1 capsule by mouth daily. ??? tiotropium (Spiriva with HandiHaler) 18 mcg inhalation capsule Inhale 1 capsule (18 mcg total) daily. ??? ipratropium-albuteroL (DUO-NEB) 0.5-2.5 mg/3 mL nebulizer solution Take 3 mL by nebulization 4 (four) times a day as needed for wheezing or shortness of breath. ALLERGIES/CONTRAINDICATIONS Allergies Allergen Reactions ??? Sulfa (Sulfonamide Antibiotics) Angioedema OBJECTIVE PHYSICAL EXAMINATION Vital Signs: BP (!) 122/93 (BP Location: Left arm, Patient Position: Sitting, Cuff Size: Regular) Pulse 82 Temp 36.2 ??C (Temporal) Resp 18 Ht 176 cm Wt 72.1 kg SpO2 96% No BMI 23.28 kg/m?? Body mass index is 23.28 kg/m??. General: No acute distress. HEENT: Normocephalic. EOMI, PERRL, Canals patent, TMs normal. Oropharynx without lesion of mucosa. Neck: No nodes, no thyromegaly. No bruit auscultated. Heart: Regular rate and rhythm. No murmurs, gallops or rubs noted. Lungs: Non-labored breathing. Clear to auscultation bilaterally. No expiratory wheeze. ASSESSMENT / PLAN 1. Chronic Obstructive Pulmonary Disease Exacerbation (HCC) Will obtain pulmonary function testing, as we do not have access to her records of previously reported pulmonary function testing. Provided refills - Echo Transthoracic (TTE); Future - Pulmonary Function Tests; Future - Family Medicine office visit (clinic); Future 2. Other Secondary Pulmonary Hypertension (HCC) Will obtain echocardiogram for patient's reported pulmonary hypertension. Will follow-up in three months after testing to determine a plan moving forward. - Echo Transthoracic (TTE); Future - Pulmonary Function Tests; Future Patient was instructed to follow up [...] the content. Ro Norton APRN, C.N.P., D.N.P. documented in this encounter Plan of Treatment Scheduled Orders Name Type Priority Associated Diagnoses Order S chedule Pulmonary Function PFT Routine Chronic Obstructive Ex pected: 05/07/2019 Tests Pulmonary Disease (Approxima te), Exacerbation (HC C) Expires: 05/06/2022 Other Secondary Pulmonary Hypertension (HCC) Scheduled Referrals Name Type Priority Associated Diagnoses Order S [facility] Outpatient Referral Routine Chronic Obstructiv e Expected: office visit Pulmonary Disease 08/07/2019 (clinic) Exacerbation (HCC) (Approxim ate), Expires: 05/06/2022 documented as of this encounter Visit Diagnoses Diagnosis Chronic Obstructive Pulmonary Disease Ex acerbation (HCC) - Primary Other Secondary Pulmonary Hypertension ( HCC) documented in this encounter Care Teams Rn Nicu Relationship Specialty Start Date End Date Ro Norton APRN, C.N.P., PCP - General Family Medicine D.N.P. [id number] [phone] documented as of this encounter
--- OUTSIDE RECORDS SUMMARY | 2021-12-31 07:56 | XMS_ITS | Encounter Summary ---
:1970 Author Organization [facility] Address [address] [place] [address] Care Team Providers Name Role Phone Ro Norotn APRN C.N.P., D.N.P. Primary Care Provider Encounter Details Date Type Department Care Team Description 10/23/2019 Documentation Department of Orthopedic Elyssa Lewis M.D. Surgery in [place], [facility] [address] [place], [place] [address] [facility] [address] [place] [address] [phone] Social History Tobacco Use Types Packs/Day Years [...] or relatives? How often do you attend quaker or Never 2021 anabaptism services? Do you belong to any clubs or No 02/25/2021 organizations such as quaker groups, unions, fraternal or athletic groups, or [...] slept in a nursing home (including now)? Sex Assigned at Date Recorded Female 10/14/2020 12:54 PM CDT documented as of this encounter Progress Notes Raudel Lewis M.D. - 10/23/2019 12:49 PM CDT I have seen and evaluated Allison Schulz today. She sustained a tibial plateau fracture. She has beenadmitted to the hospital. Her leg is been splinted. Her left foot remains well perfused. We discussed pain management techniques which include activity modification and medical management. Recent imaging was reviewed as indicated. She has a tibial plateau fracture with involvement of the medial plateau with comminution present. She has anterior impaction. The medial fragment is displacedmedially relative to the tibial shaft. There is widening of the joint incongruity of the lateral articular surface. Patient's functional abilities were discussed. We discussed operative versus non operative management of this injury. Based on the amount of joint displacement and incongruity and malalignment, I think it would be best treated with open reduction and internal fixation. She has significant impaction of the anterior joint with comminution present. We will try to disimpact this and likely have to bone graft or use synthetic bone graft material such as a tri calcium phosphate wedge to support the anterior joint. We will plan on medial plate fixationas well. We discussed the fact that she would be nonweightbearing or have minimal weight-bearing on this leg for the first 3 months. I stressed the fact that she would be 12 weeks off of this leg. She u nderstands this. We discussed expected activities, limitations, and goals. All patient questions were answered. I offered if there was anything else that I could do for the patient and the patient was satisfied. We will proceed with open reduction internal fixation of her tibial plateau fracture tomorrow. documented in this encounter Plan of Treatment Not on filedocumented as of this encounter Visit Diagnoses Not on filedocumented in this encounter Additional Health Concerns Infection Onset Date Last Indicated Resolved Time COVID19 Pending 10/23/2019 10/23/2019 10/23/2019 10:32 AM CDT documented as of this encounter Care Teams Meat Department Manager Relationship Specialty Start Date End Date Ro Norton APRN, C.N.P., PCP - General Family Medicine D.N.P. [address] [phone] documented as of this encounter
--- OUTSIDE RECORDS SUMMARY | 2021-12-31 07:56 | XMS_ITS | Encounter Summary ---
:1970 Author Organization [facility] Address [address] [place] [address] Care Team Providers Name Role Phone Unavailable Primary Care Provider Unavailable Reason for Visit Reason Onset Date Comments Pre-visit Testing Orders 06/04/2018 Encounter Details Date Type Department Care Team Description 06/04/2018 Clinical Department of [place] Pre-visit Test ing Communication Cardiovascular Tim Cabrera [facility] Medicine in .. [place], [place] [address] [facility] [address] [place] [phone] Social History Tobacco Use Types Packs/Day Years Used Date Smoking Tobacco: Never Assessed Alcohol Habits Answer Date Recorded How often [...] do you attend jew or Never 2021 scientology services? Do you belong to any clubs [...] slept in a group home (including now)? Sex Assigned at Date Recorded Female 10/14/2020 12:54 PM CDT documented as of this encounter Plan of Treatment Not on filedocumented as of this encounter Visit Diagnoses Diagnosis Hypertension Pulmonary (HCC) - Primary documented in this encounter
--- OUTSIDE RECORDS SUMMARY | 2021-12-31 07:56 | XMS_ITS | Encounter Summary ---
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 Montserrat Boone R.N.) 809 (Given - Provider: Damaris Ferreira R.N.)2018 (Given - Provider: Montserrat Boone R.N.) 30 mg, subcutaneous, 2 times daily, First dose on Mon10/25/19 at 0900 enoxaparin injection 40 mg (LOVENOX) 38 (Given - Provider: Damaris Ferreira R.N.) 40 mg, subcutaneous, Daily, First dose ( after last modification) on Mon10/27/19 at 0900 gabapentin capsule 300 mg (NEURONTIN) 0831 (Given - Pr ovider: Damaris Ferreira R.N.)1355 (Given - Provider: Damaris Ferreira R.N.)2002 (Given - Provider: Montserrat Boone R.N. - Comment: lyrica discontinued) 808 (Given - Provider: Damaris Ferreira R.N.)1550 (Given - Provider: Damaris Ferreira R.N. - Comment: Patient given mag citrate at 1400-micromedex says no PO medicinal chemist within 2 hours)2018 (Given - Provider: Montserrat Boone R.N.) 0937 (Given - Provider: Damaris Ferreira R.N.) 300 mg, oral, 3 times daily, First dose on Mon10/25/19 at 0900 lidocaine 5 % 1 patch (LIDODERM) 829 (Medication Appl ied - Provider: Damaris Ferreira R.N.)2000 (Medication Removed - Provider: Montserrat Boone R.N.) 08 (Not Given - Provider: Damaris Ferreira R.N. - Reason: Patient/family refused) 0934 (Not Given - Provider: Damaris Ferreira R.N. - Reason: Patient/family refused) 1 patch, transdermal, Administer over 12 Hours, Daily, First dose on Mon10/23/19 at 0900, May apply up to 3 patches per day. magnesium citrate solution 148 mL (CITROMA) (COMPLETED) 140 (Given - Provider: Damaris Ferreira R.N.) 148 mL, oral, Once, On 10/26/19 at 1345, For 1 dose melatonin tablet 3 mg 2001 (Given - Provider: Montserrat brown R.N.) 2018 (Given - Provider: Montserrat Boone R.N.) 3 mg, oral, Daily at bedtime, First dose on Mon10/23/19 at 2100 mineral oil-glycerin enema 1 enema (COMPLETED) 1656 (Given - Provider: Damaris Ferreira R.N. - Comment: Patient request to let mag citrate work first before MD route) 1 enema, rectal, Once, On 10/26/19 at 1345, For 1 dose polyethylene glycol powder packet 17 g (MIRALAX) 829 (Given - Provider: Damaris Ferreira R.N.) 809 (Given - Provider: Damaris Ferreira R.N.) 0935 [...] First d ose (after last modification) on 9/5/20 at 2100 sennosides tablet 8.6 mg (SENOKOT) (CANCELED) 2001 (Gi cata - Provider: Montserrat Boone R.N.) 8.6 mg, oral, Daily at bedtime, First dose on Mon10/25/19 at 2100 sodium chloride 0.9 % injection 3 mL 0844 (Not Given - Provider: Damaris Ferreira R.N. - Reason: Other)2009 (Given - Provider: Montserrat Bonoe R.N.) 0815 (Not Given - Provider: Damaris [...] Damaris Ferreira R.N.) 0813 (Given - Provider: Damaris saldana RRaffyNRaffy) 0938 (Given - Provider: Damaris saldana RRaffyN.) 2 puff, inhalation, Daily (RT), First do se on Mon10/23/19 at 0800, tiotropium respimat was interchanged for tiotropium handihaler (same frequency) traMADoL tablet 50 mg (ULTRAM) 0134 (Given - Provider: Augustus Gaona R.N.)0547 (Given - Provider: Augustus Gaona R.N.)1112 (Given - Provider: Damaris Ferreira R.N.)1659 (Given - Provider: Damaris Ferreira R.N.)2256 (Given - Provider: Montserrat Boone R.N.) 0514 (Given - Provider: Montserrat Boone R.N.)1115 (Given - Provider: Damaris A Koble, R.N.)1800 (Given - Provider: Damaris Ferreira R.N.)2350 (Given - Provider: Montserrat Boone R.N.) 0519 (Given - Provider: Montserrat Boone R.N.)1143 [...] 1112 (See Alternative - Provider: Damaris Ferreira R.N.)1947 (See Alternative - Provider: Montserrat Boone R.N.) [...] 1) 1112 (Given - Provider: Damaris Ferreira R.N.)1947 (Given - Provider: Montserrat Boone R.N.) 0411 (Given - Provider: Montserrat Boone R.N.)1131 (Given [...] documented as of this encounter Care Teams Cooker Sulfate Relationship Specialty Start Date End Date Ro Norton APRN, C.N.P., PCP - General Family Medicine D.N.P. [address] [phone] documented as of this encounter
== END 2021-12-31 07:55 | disposition left against medical advice (07) ==
DX: Z53.21 Procedure and treatment not carried out due to patient leaving prior to being seen by health care provider (principal)
CPT/HCPCS: 99281

== ENCOUNTER 2022-01-10 23:22 | Emergency (ER) | payer MEDICAID, SELFPAY ==
[2022-01-10 23:35] VITALS: BP 94/67; PULSE 106; RESP 24; TEMP 36.4; O2SAT 80; BMI 26.5
[2022-01-10 23:40] VITALS: O2SAT 89
[2022-01-10] MEDS: IPRAT-ALBUT 0.5-2.5 MG/3 ML NEB 1 NEB IH (23:40)
[2022-01-10 23:57] VITALS: O2SAT 89
--- NOTE | 2022-01-11 00:02 | CRLHL7_ITS ---
For Patients: As a result of the Century Cures Act, medical imaging exams and procedure reports are released immediately into your electronic medical record. You may view this report before your referring provider. If you have questions, please contact your health care provider. INDICATION: Cough, dyspnea. TECHNIQUE: Chest 1 views. COMPARISON: June 27, 2021. FINDINGS: Cardiovascular and mediastinum: Stable cardiomegaly and enlarged mediastinum. Sternotomy. Lungs and pleural spaces: Increase interstitial prominence. No sign of pleural effusion. No pneumothorax. Bones and soft tissues: No significant findings. IMPRESSION: Increase interstitial prominence, suggestive of pulmonary edema. Subtle patchy right midlung/lower lobe airspace opacities, possibly pneumonia. Similar cardiomegaly and pulmonary hypertension Dictated by Morgan Rome MD @ 01/11/2022 12:25:53 AM (Electronically Signed)
--- NOTE | 2022-01-11 00:02 | ED.GENADULT ---
HPI - General Adult General Time Seen by Provider: 23:50 Date Seen: 01/10/22 Chief complaint: Shortness of Breath/Dyspnea Stated complaint: wants a breathing treatment/nebulizer Time Seen by Provider: 01/10/22 23:24 Source: patient Mode of arrival: ambulatory Limitations: no limitations History of Present Illness HPI narrative: 51-year-old female with history of oxygen dependent COPD as well as heart failure who presents today with increased shortness of breath and cough starting today. She is in the process of moving and could not find her nebulizer machine. She reports she was seen at an outside facility 2 days ago and at that time was diagnosed with acute heart failure exacerbation. She increased her dose of Lasix and feels like her swelling and fluid have improved. She denies any chest pain, nausea, vomiting, diarrhea, fever. Leg swelling which is chronic but has improved. She is usually on 3 L of oxygen at night. Her medications include sildenafil, Lasix, and her inhalers. She reports a history of what sounds like BS the with repair. Patient reports she finished a prednisone burst 2 days ago. Related Data Home Medications Medication Instructions Recorded Confirmed albuterol sulfate 90 mcg/actuation 2 puff inhalation QID PRN 01/10/22 01/10/22 aerosol inhaler (ProAir HFA) furosemide 20 mg tablet 20 mg PO DAILY 01/10/22 01/10/22 ipratropium 0.5 mg-albuterol 3 mg 3 ml inhalation Q6H PRN 01/11/22 01/11/22 (2.5 mg base)/3 mL nebulization soln pramipexole 0.125 mg tablet 0.125 mg PO DAILY 01/11/22 01/11/22 prednisone 20 mg tablet 20 mg PO DAILY 01/11/22 01/11/22 sildenafil (pulm.hypertension) 20 20 mg PO DAILY 01/11/22 01/11/22 mg tablet Allergies Allergy/AdvReac Type Severity Reaction Status Date / Time Sulfa (Sulfonamide Allergy Severe Verified 01/11/22 01:54 Antibiotics) Review of Systems Status of ROS: Reports: 10 or more systems reviewed and unremarkable except as noted in History and below [facility] Medical History (Updated 01/11/22 @ 01:43 by Maxx Camarena RN) CHF (congestive heart failure) Constipation COPD (chronic obstructive pulmonary disease) Fracture of ribs, multiple Fracture of tibial plateau, closed Hemarthrosis Hypomagnesemia Severe pulmonary hypertension Shortness of breath Tobacco use Traumatic fracture of sternum Social History Smoking Status: Current every day smoker What tobacco products do you use: cigarettes Second hand tobacco smoke exposure: No How often do you have a drink containing alcohol: never AUDIT-C Alcohol total score: 0 Non-prescribed substance use: denies use Exam Narrative: Exam Narrative: General: Well-developed and well-nourished, no acute distress Head: Atraumatic and normocephalic Eyes: Pupils are equal reactive, extraocular motions intact, conjunctiva clear ENT: External nose and ears are normal, posterior pharynx without erythema or exudate Neck: No midline cervical tenderness, full spontaneous range of motion the neck, trachea midline, no adenopathy Heart: Regular rate and rhythm with 5 6 systolic murmur Lungs: Mild increased work of breathing with inspiratory and expiratory wheezes throughout, crackles on the left. Oxygen saturation 93-94% on 3 L but drops down in the 80s while talking. Abdomen: Soft, nontender, nondistended with active bowel sounds Musculoskeletal: No tenderness, deformity, or edema Neurologic: Awake, alert, and oriented x3, no gross focal neurologic deficits, cranial nerves intact as tested Psych: Mood and affect are appropriate Skin: No rashes Const: Vital Signs, click to edit/add: Vital Signs - 24 hr 01/10/22 23:35 01/10/22 23:57 01/10/22 23:40 Temperature 97.6 F Pulse Rate [Right Pulse Oximeter] 106 H Respiratory Rate 24 Blood Pressure [Ri ght Upper Arm] 94/67 Pulse Oximetry 80 L 89 89 Oxygen Delivery Me thod Room Air Nasal Cannula Oxygen Flow Rate 4 01/11/22 01:11 Temperature Pulse Rate [Right Pulse Oximeter] 94 Respiratory Rate 24 Blood Pressure [Ri ght Upper Arm] 115/74 Pulse Oximetry 95 Oxygen Delivery Me thod Nasal Cannula Oxygen Flow Rate 4 Documenting provider has reviewed patient's vital signs: yes Course Course Hospital Course: Patient seen and examined, prior records are reviewed. Differential diagnosis includes but not limited to acute heart failure, pulmonary edema, anemia, COPD exacerbation, respiratory failure, pneumonia. Patient presents with increased shortness of breath and cough today. She is given a DuoNeb on arrival in feels little bit better, chronically on 3 L of oxygen with recent emergency department visit for heart failure exacerbation. Labs and x-ray ordered, repeat albuterol neb will be given. Patient is mildly hypotensive and is tachycardic but given known recent heart failure, will not initiate aggressive fluid resuscitation at this time until chest x-ray and BNP resulted to evaluate for degree of heart failure today. Reevaluation(s) Reevaluation #1: White blood cell count is slightly elevated likely representing demargination from stress and recent prednisone use, could be also from hemoconcentration given elevated hemoglobin level. Venous blood gas with pCO2 of 59 but pH is 7.4, chronic hypercarbia. Time: 00:30 Reevaluation #2: Chest x-ray suggestive of pneumonia given patient's leukocytosis and worsening respiratory status, this is likely. Rocephin and azithromycin are ordered along with additional nebulizer treatment. Time: 00:47 Reevaluation #3: Patient recheck, she is feeling better. Heart rate is improved and blood pressure is also improved. Oxygen saturations still about 90% on her usual 3 L. She reports her oxygen saturation is normal 88-90%. She feels better. Using shared decision-making, we discussed risks and benefits of admission versus discharge, patient would like to be discharged. She will get a new nebulizer machine tomorrow. Decadron IV is given in the emergency department but will not continue further steroids. Azithromycin for home. Time: 01:09 Vital Signs Vital signs: Initial Vital Signs Temperature 97.6 F 01/10/22 23:35 Temperature Source Temporal Artery Scan 01/10/22 23:35 Pulse Rate 106 H 01/10/22 23:35 Respiratory Rate 24 01/10/22 23:35 Blood Pressure 94/67 01/10/22 23:35 Blood Pressure Mean 76 01/10/22 23:35 Blood Pressure Position Sitting 01/10/22 23:35 Pulse Oximetry 80 L 01/10/22 23:35 Oxygen Delivery Method 01/10/22 23:35 Vital Signs Temperature 97.6 F 01/10/22 23:35 Pulse Rate 106 H 01/10/22 23:35 Respiratory Rate 24 01/10/22 23:35 Blood Pressure 94/67 01/10/22 23:35 Pulse Oximetry 80 L 01/10/22 23:35 Oxygen Delivery Method 01/10/22 23:35 Temperature 97.6 F 01/10/22 23:35 Pulse Rate 94 01/11/22 01:11 Respiratory Rate 24 01/11/22 01:11 Blood Pressure 115/74 01/11/22 01:11 Pulse Oximetry 95 01/11/22 01:11 Oxygen Delivery Method 01/11/22 01:11 Oxygen Flow Rate 4 01/11/22 01:11 Medical Decision Making Medical Records Medical records reviewed: Yes I reviewed the patient's medical records Lab Data Lab results reviewed: Yes I reviewed the patient's lab results Labs: Lab Results 01/11/22 01/11/22 01/11/22 Range/Units 00:20 00:20 00:20 WBC 15.80 H (4.50-11.00) K/uL RBC 5.10 (4.00-5.20) m/uL Hgb 16.7 H (12.0-16.0) gm/dL Hct 51.6 H (33.0-51.0) % MCV 101 H (80-100) fL MCH 33 (26-34) pg MCHC 32 (32-36) gm/dL RDW Coeff of Jovan 14.4 (11.5-15.5) % Plt Count 225 (140-440) K/uL Neut % (Auto) 83.0 H (42.0-72.0) % Lymph % (Auto) 7.6 L (20-44) % Story % (Auto) 9.1 (0.0-11.0) % Eos % (Auto) 0.1 (0.0-7.0) % Baso % (Auto) 0.1 (0.0-3.0) % Neut # (Auto) 13.10 H (1.7-7.0) K/uL Lymph # (Auto) 1.20 (0.90-2.90) K/uL Story # (Auto) 1.40 H (0.00-0.90) K/UL Eos # (Auto) 0.00 (0.00-0.50) K/uL Baso # (Auto) 0.00 (0.00-0.30) K/uL Abs Immat Gran (auto) 0.00 (0.00-0.30) K/uL Imm/Tot Granulo (auto) 0.1 % VBG pH 7.419 (7.32-7.43) VBG pCO2 58 H (40-50) mmHG VBG pO2 27.3 (25-47) mmHG VBG HCO3 38 H (21-28) mmol/L Sodium 134 L (135-149) mmol/L Potassium 4.0 (3.6-5.1) mmol/L Chloride 93 L (96-114) mmol/L Carbon Dioxide 37 H (20-32) mmol/L BUN 21 (5-24) mg/dL Creatinine 0.7 (0.5-1.5) mg/dL Estimated Creat Clear 73.36 Estimated GFR 106 ml/min Glucose 94 (60-115) mg/dL Calcium 8.3 L (8.4-10.6) mg/dL NT-Pro-B Natriuret Pep 4530 H (0-125) PG/mL Imaging Data Chest x-ray: Attestation: I have reviewed the pertinent imaging results. My impression: Reviewed, cardiomegaly with question of some right lower lobe infiltrates Radiologist's impression: IMPRESSION: Increase interstitial prominence, suggestive of pulmonary edema. Subtle patchy right midlung/lower lobe airspace opacities, possibly pneumonia. Discharge Plan Discharge Clinical Impression: Acute infective exacerbation of chronic obstructive airway disease, Congestive heart failure, Community acquired pneumonia Patient Disposition: Home, Self-Care Condition: Stable Instructions: Heart Failure (DC), COPD (Chronic Obstructive Pulmonary Disease) (DC), Community Acquired Pneumonia (DC) Additional Instructions: Continue your current medications. Restart nebulizer treatments in the morning. Follow-up with your primary care doctor this week. Activity Level: No Restrictions Discharge Diet: Regular Prescriptions: No Action albuterol sulfate [ProAir HFA] 90 mcg/actuation HFA aerosol inhaler 2 puff INHALATION QID PRN furosemide 20 mg tablet 20 mg PO DAILY ipratropium-albuterol 0.5 mg-3 mg(2.5 mg base)/3 mL solution for nebulization 3 ml INHALATION Q6H PRN pramipexole 0.125 mg tablet 0.125 mg PO DAILY prednisone 20 mg tablet 20 mg PO DAILY sildenafil (pulm.hypertension) 20 mg tablet 20 mg PO DAILY Follow Up/Referrals: Provider,Not a Local [Primary Care Provider] - Stand Alone Forms: [employer] Info Instructions
--- OUTSIDE RECORDS SUMMARY | 2022-01-11 00:15 | XMS_ITS | Encounter Summary ---
:1970 [address] [facility] Address [address] [place] [address] Care Team Providers Name Role Phone Ro Norton APRN, C.N.Kirsty, D.N.P. Primary Care Provider Reason for Referral Outpatient (Routine) - Authorized Specialty Diagnoses / Referred By Referred To Cont act Procedures Contact Gastroenterology and Diagnoses [facility] [place] MORA.N.Kirsty, D.N.P. [address] [place] [phone] Referral ID Status Reason Start Date Expiration Date Visits V isits Requested Authorized [id number] Authorized 09/14/2021 09/14/2022 1 1 Encounter Details Date Type Department Care Team Description 09/13/2021 Clinical Communication Department of Ro Holguin, Medicine, [place] MORGAN C.N.PRaffy, Clinic, in [place] [address] [phone] Social History Tobacco Use Types Packs/Day [...] do you attend adventist or Never 2021 baptism services? Do you [...] CDT ORDER/LAB/REFERRAL REQUEST: Name of test/referral/order requested: [id number] Reason for request: Ro placed an order, for Allison to be seen by Infectious Diseases, regarding Hepatitis, however that order should go to Gastroenterology. Please place a new order for this, as listed above, for A[place]. Please contact Allison to schedule. Date needed: as soon as possible. Routing: -Order and Lab requests go to [facility] PCP PANEL MANAGERS -Referral Requests go to PCPs HAND BULLDOZER pool Please pend orders prior to routing to PCP/Provider DOS/PASS are encouraged to pend orders prior to forwarding message documented in this encounter Plan of Treatment Upcoming Encounters Date Type Specialty Care Team Description 01/14/2022 Appointment Radiology Ro Norton APRN, C.NDean, D.N.P. [address] [phone] (Amanda goldman) 01/27/2022 Clinical Support Integrative Medicine Haris, [address] [place], [place] [phone] (Amanda goldman) Scheduled Referrals Name Type Priority Associated Order Schedule Diagnoses Gastroenterology and Outpatient Routine Hepatitis C Expecte d: Hepatology - Hepatology Referral 08/21 consult (clinic) (Approximat e), Expires: 12/15/2022 documented as of this encounter Visit Diagnoses Diagnosis Hepatitis C - Primary documented in this encounter Care Teams Health Information Clerk Relationship Specialty Start Date End Date Ro Norton APRN C.N.P., PCP - General Family Medicine D.N.P. [address] [phone] documented as of this encounter
--- OUTSIDE RECORDS SUMMARY | 2022-01-11 00:15 | XMS_ITS | Encounter Summary ---
:1970 Author Organization [facility] Address [address] [place] [address] Care Team Providers Name Role Phone Ro Norton APRN, C.N.P., D.N.P. Primary Care Provider Encounter Details Date Type Department Care Team Description 09/21/2021 Orders Only Pharmacy Prior Auth [place] Paulette Barrera [phone] Social History Tobacco Use Types Packs/Day Years [...] do you attend adventism or Never 2021 tenriism services? Do you [...] as of this encounter Plan of Treatment Upcoming Encounters Date Type Specialty Care Team Description 01/14/2022 Appointment Radiology Ro Norton APRN, C.N.P., D.N.P. [address] [phone] (Wo rk) 01/27/2022 Clinical Support Integrative Medicine Haris, [address] [place], [place] [phone] (Wo rk) documented as of this encounter Visit Diagnoses Not on filedocumented in this encounter Care Teams Clinical Unit Coordinator Relationship Specialty Start Date End Date Ro Norton APRN, C.N.P., PCP - General Family Medicine D.N.P. [address] [phone] documented as of this encounter
--- OUTSIDE RECORDS SUMMARY | 2022-01-11 00:15 | XMS_ITS | Encounter Summary ---
:1970 Author Organization [facility] Address [address] [place] [address] Care Team Providers Name Role Phone Ro Norton APRN, C.N.P., D.N.P. Primary Care Provider Reason for Visit Reason Comments Form Review Inder Verbal Order Encounter Details Date Type Department Care Team Description 11/25/2021 Clinical Communication Department of Ro Norton rm Review Family MedicineElan APRN, (Inder Coello rbal [place] C.N.P., D.N.P. Order) Clinic, in [address] [address] [place], [place] [phone] (Work) [phone] Social History Tobacco Use Types Packs/Day Years [...] do you attend scientology or Never 2021 taoist services? Do you belong to any clubs [...] name, and credentials added. Telephone Encounter - eMg Hensley - 11/25/2021 10:24 AM CDT Form was emailed to LARRY Norton for electronic review/signature. QC TECH: Inder PHONE NUMBER: [phone] INFO REQUESTED: portable oxygen INSTRUCTIONS: Fax information to [phone] documented in this encounter Plan of Treatment Upcoming Encounters Date Type Specialty Care Team Description 01/14/2022 Appointment Radiology Ro Norton APRN, C.N.P., D.N.P. [address] [address] [place] [phone] (Wo rk) 01/27/2022 Clinical Support Integrative Medicine Haris, [address] [place], [place] [phone] (Wo rk) documented as of this encounter Visit Diagnoses Not on filedocumented in this encounter Care Teams Firer Diesel Locomotive Relationship Specialty Start Date End Date Ro Norton APRN, C.N.P., PCP - General Family Medicine D.N.P. [address] [phone] documented as of this encounter
--- OUTSIDE RECORDS SUMMARY | 2022-01-11 00:15 | XMS_ITS | Encounter Summary ---
:1970 Author Organization [facility] Address [address] [place] [address] Care Team Providers Name Role Phone Ro Norton APRN, C.NDean, MileN.PRaffy Primary Care Provider Encounter Details Date Type Department Care Team Description 07/23/2021 Hospital Encounter Department of Ro Norton Scr eening Lipid Laboratory Medicine in [place] MORANDean, Mile TownsendNRaffyP. [address] [phone] Social History Tobacco Use Types Packs/Day Years [...] do you attend muslim or Never 2021 orthodox services? Do you belong to any [...] Take 1 tablet (20 90 tablet 3 10/2021 tablet mg total) by mouth daily. [...] Appointment Radiology Ro Norton APRN, C.N.P., D.N.P. [id number] [phone] (Wo rk) 01/27/2022 Clinical Support Integrative Medicine Haris, Sohan y [address] [facility], [place] [phone] (Amanda rk) documented as of this encounter Procedures Procedure Name Priority Date/Time Associated Diagnosis Comme nts LIPID PANEL, S Routine 07/23/2021 8:56 AM Screening Lipid Resu lts for this CDT procedure are i n the results section . documented in this encounter Results Lipid Panel (07/23/2021 8:56 AM CDT) athologist Signature Cholesterol, 106 mg/dL 07/23/2021 CNFL [...] Organization Address City/State/ZIP Code Phon e Number [facility]- [address] [place] [phone] [facility] [place] [address] System in [address] documented in this encounter Visit Diagnoses Diagnosis Screening Lipid documented in this encounter Care Teams Inside Barrel Lathe Operator Relationship Specialty Start Date End Date Ro Norton APRN, C.N.P., PCP - General Family Medicine D.N.P. [address] [place] [phone] documented as of this encounter
--- OUTSIDE RECORDS SUMMARY | 2022-01-11 00:15 | XMS_ITS | Clinical Summary ---
:1970 Author Organization [facility] Address [address] [place] [address] Care Team Providers Name Role Phone Ro Norton APRN C.N.P., D.N.P. Primary Care Provider Source Comments Patient records contain information from all sites at [facility]. For routine questions regarding patient records, call [phone] during business hours, M-F 8:00 AM - 5:00 PM Central Time. Record requests for emergency care only can be directed to [phone] at any time.[facility] Allergies Active Allergy Reactions Severity Noted Date Comments Sulfa (Sulfonamide Antibiotics) Angioedema 8 Medications Medication Sig Dispensed Refills Start Date End Date Status multivitamin capsule Take 1 capsule by 0 Active mouth daily. ascorbic acid, Take 100 mg by 0 Active vitamin C, (VITAMIN mouth daily. C) 100 mg tablet zinc sulfate Take 220 mg by 0 Ac tive (ZINCATE) 220 (50) mg mouth daily. capsule DME Oxygen Administer 1 L 0 Acti ve into nostril(s) at bedtime. DME Order sildenafil (REVATIO) Take 1 tablet (20 270 tablet 3 04/27/2021 Active 20 mg mg total) by mouth 3 tabletIndications: 3 (three) times a Hypertension day. Pulmonary Primary (HCC) docosahexaenoic Take 1,000 mg by 0 Active acid-epa 120-180 mg mouth. capsule HYDROcodone-acetamino Take 1 tablet by 0 04/03/2021 Active phen (NORCO) 5-325 mg mouth every 4 per tablet (four) hours as needed. for pain fluticasone Inhale 1 puff 2 0 02/03/2021 A ctive propion-salmeteroL (two) times a day. 250-50 mcg/dose diskus inhaler ipratropium-albuteroL Inhale 3 mL. 0 03/09/202102/20 Active (DUONEB) 0.5-2.5 mg/3 3 mL nebulizer solution sildenafil (REVATIO) Take 20 mg by 0 10/12/2020 Active 20 mg tablet mouth. loratadine (CLARITIN) Take 1 tablet (10 10 tablet 0 06/26/2021 Active 10 mg tablet mg total) by mouth daily for 10 days. furosemide (LASIX) 20 Take 1 tablet (20 90 tablet 3 06/28/2021 Active mg tablet mg total) by mouth daily. pramipexole (MIRAPEX) Take 2 tablets 180 tablet 3 04/15/2021 Active 0.125 mg tablet (0.25 mg total) by mouth at bedtime. albuterol 90 INHALE 2 PUFFS BY 25.5 g 3 03/31/2021 03/31/19 2 Active mcg/actuation inhaler MOUTH FOUR TIMES A 3 DAY ipratropium-albuteroL INHALE 3 ML BY 270 mL 3 03/09/2021 Active (DUONEB) 0.5-2.5 mg/3 MOUTH VIA 3 mL nebulizer solution NEBULIZER FOUR TIMES A DAY NEEDED FOR SHORTNESS OF BREATH OR WHEEZING fluticasone INHALE 1 PUFF BY 60 each 11 02/03/2021 Active propion-salmeteroL MOUTH TWO TIMES A 2 250-50 mcg/dose DAY, RINSE MOUTH diskus inhaler WITH WATER AFTER USE TO REDUCE AFTERTASTE AND INCIDENCE OF CANDIDIASIS. DO NOT SWALLOW. ipratropium-albuteroL Inhale 3 mL by 180 mL 11 12/31/2021 Active (DUONEB) 0.5-2.5 mg/3 nebulization 4 mL nebulizer solution (four) times a day. penicillin V TAKE 1 TABLET BY 28 tablet 0 12/23/2020 potassium (VEETIDS) MOUTH FOUR TIMES A 2 500 mg tablet DAY UNTIL GONE predniSONE Take 3 tablets (60 15 tablet 0 12/31/2021 (DELTASONE) 20 mg mg total) by mouth 2 tablet daily for 5 days. Active Problems Problem Noted Date History Of Falling 07/25/2021 Shortness Of Breath 07/01/2020 Overview: Added automatically from request for stan pedersen [phone] Constipation 10/26/2019 Hypomagnesemia 10/24/2019 Observation Following Motor [...] Encounters Date Type Specialty Care Team Description 01/07/2022 Emergency Emergency Pj Jones Fluid Overload Unspecified (Primary Dx); Medicine A, C.N.P. Edema Leg 12/31/2021 Emergency Emergency Karine Goins Acute And Chron ic Respiratory Failure With Hypoxia (HCC) (Primary Dx); Medicine L, P.A.-C. Chronic Obstruc tive Pulmonary Disease Exacerbation (HCC); Edema Pulmonary (HCC); Other Secondary Pulmonary Hypertension (HCC); Thrombocytopeni a (HCC) 12/21/2021 Orders Only Errol, Screening Mammo gram Ro Ansari APRN, Breast Cancer C.N.P., D.N.P. 11/25/2021 Clinical Family Medicine Errol, Form Review ([facility] [employer] Ro Ansari APRN, Verbal Order) C.N.P., D.N.P. 10/20/2021 E-Visit Express or Urgent Candido Lyn Ca re Online for Care Anika Betancourt, Athlete's Foot MORGAN, C.N.P. from Last 3 Months Immunizations Name [...] or relatives? How often do you attend yazdanism or Never 2021 mu-ism services? Do you belong to any clubs or No 02/25/2021 organizations such as yazdanism groups, unions, fraternal or athletic groups, or [...] Sign Reading Time Taken Comments Blood Pressure 116/80 01/07/2022 8:00 PM CABINET WORKER Pulse 93 01/07/2022 8:00 PM CABINET WORKER Temperature 36.4 ??C (97.5 ??F) 01/07/2022 7:31 PM CABINET WORKER Respiratory Rate 22 01/07/2022 8:00 PM CABINET WORKER Oxygen Saturation 85% 01/07/2022 8:00 PM CABINET WORKER Inhaled Oxygen Concentration - - Weight 72.4 kg (159 lb 9.8 oz) 01/07/2022 7:26 PM CABINET WORKER Height 179.7 cm (5' 10.75) 09/29/2020 10:43 AM CDT Body Mass Index 22.42 09/29/2020 10:43 AM CDT Plan of Treatment Upcoming Encounters Date Type Specialty Care Team Description 01/14/2022 Appointment Radiology Ro Norton APRN, C.N.P., D.N.P. [id number] [phone] (Wo rk) 01/27/2022 Clinical Support Integrative Medicine Sohan Carballo y [address] [place], [place] [phone] (Wo rk) Health Maintenance Due Date Last Done Comments CT Colonography 1970 Cologuard 1970 Colonoscopy 1970 Colorectal Cancer Screening 1970 FIT 1970 Hepatitis B Vaccines (1 of 3 - 1970 3-dose series) Mammogram 1972 COVID-19 Vaccine (#1) 01/27/1973 Pneumococcal vaccine (0-64 years) 1978 (1 - PCV) Depression Screening (Annual 02/20/2021 PHQ-2) Tobacco Cessation counseling 06/05/2021 06/05/2020 Influenza Vaccine (#1) 2021 06/01/2020 Creatinine Level 01/07/2023 01/07/2022, 12/31/2021, 07/23/2021, Additional history exists Potassium Level 01/07/2023 01/07/2022, 12/31/2021, 07/23/2021, Additional history exists Sodium Level 01/07/2023 01/07/2022, 12/31/2021, 07/23/2021, Additional history exists Fasting Glucose for Diabetes 01/07/2025 01/07/2022, 022, Screening 07/23/2021, Additional history exists Cervical Cancer Screening 07/23/2026 07/23/2021, 07/23/2021 Lipid (Cholesterol) Screening 07/23/2026 07/23/2021 DTaP,Tdap,and Td Vaccines (3 - Td 10/22/2029 10/23/2019, or Tdap) HIV Screening Completed 07/23/2021, 08/19/2020 Medical Devices Implanted Type Area Software Intern Device Shelf Model / Identifier Expiration Serial / Date Lot Scrw Dcp St Fthrd 3.5x75 - [id number] Hardware Left: Depuy Syn thes 204.875 / Implanted: Qty: 1 on 10/24/2019 by Raudel Lewis M.D. at [facility] e.g. Tibia / pins/screws/ rods Procedures Procedure Name Priority Date/Time Associated Comments Diagnosis DX CHEST AP OR PA RAD - Semiurgent 01/07/2022 8:09 Res ults for AND LATERAL 2 VIEWS (Fast; most ED PM CABINET WORKER this p rocedure patients; some are in the inpatients) results section. NT-PRO B-TYPE STAT 01/07/2022 8:01 Results for NATRIURETIC PEPTIDE PM CABINET WORKER this pro cedure (BNP), S are in the results section. COMPREHENSIVE STAT 01/07/2022 8:01 Results for METABOLIC PANEL, S/P PM CABINET WORKER this pr ocedure are in the results section. CBC WITHOUT STAT 01/07/2022 8:01 Results for DIFFERENTIAL, B PM CABINET WORKER this procedu re are in the results section. CRITICAL CARE Routine 12/31/2021 1:25 Results for PM CABINET WORKER this procedure are in the results section. TROPONIN T, 2H/6H, Timed 12/31/2021 11:31 Resul ts for 5TH GEN, P AM CABINET WORKER this procedure are in the results section. DX CHEST AP OR PA RAD - Semiurgent 12/31/2021 9:23 Res ults for AND LATERAL 2 VIEWS (Fast; most ED AM CABINET WORKER this p rocedure patients; some are in the inpatients) results section. HC BLD GASES ANY Routine 12/31/2021 9:22 Results for COMBINATION AM CABINET WORKER this procedure are in the results section. BLOOD GAS, POCT, B STAT 12/31/2021 9:10 Result s for AM CABINET WORKER this procedure are in the results section. TROPONIN T, STAT 12/31/2021 9:10 Results for BASELINE, 5TH GEN, P AM CABINET WORKER this pr ocedure are in the results section. BASIC METABOLIC STAT 12/31/2021 9:10 Results f or PANEL, S/P AM CABINET WORKER this procedure are in the results section. CBC WITH STAT 12/31/2021 9:10 Results for DIFFERENTIAL, B AM CABINET WORKER this procedu re are in the results section. IFLU A, B, SARS STAT 12/31/2021 9:10 Results f or COV-2, PCR, RAPID,V AM CABINET WORKER this pro cedure are in the results section. ECG STAT 12/31/2021 8:45 Results for AM CABINET WORKER this procedure are in the results section. from Last 3 Months Results DX Chest AP or PA and Lateral 2 Views (01/07/2022 8:09 PM CABINET WORKER)Only the most recent of2 resultswithin the time period is included. Anatomical Region Laterality Modality Chest, Thoracic RST LOS, Thoracic ARZ LOS, Thoracic N/A Digital Radiography FLA LOS Specimen (Source) Anatomical Collection Method Collection Time Re ceived Time Location / / Volume Laterality 01/07/2022 8:14 PM CABINET WORKER Impressions 01/07/2022 8:16 PM CABINET WORKER Stable cardiomegaly and enlarged central pulmonary arteries, as can be seen with pulmonary hypertension. No pneumothorax. Increased mild bilateral mid and lower lung opacities could be seen with asymmetric pulmonary edema or multifocal pneumonia. Trace bilateral pleural effusions. Comparison: 12/31/2021 Narrative 01/07/2022 8:16 PM CABINET WORKER EXAM: DX CHEST AP OR PA AND LATERAL 2 VIEWS Procedure Note Tim Bruce M.D. - 01/07/2022Format ting of this note might be different from the original. EXAM: DX CHEST AP OR PA AND LATERAL 2 EWS IMPRESSION: Stable cardiomegaly and enlarged central pulmonary arteries, as can be seen with pulmonary hypertension. No pneumothorax. Increased mild bilateral mid and lower lung opacities could be seen with asymmetric pulmonary edema or multifocal pneumonia. Trace bilateral pleural effusions. Comparison: 12/31/2021 Pj Jones C.N.P. IMSelam DIAGNOSTIC IMAGING PROCE DURES (ABNORMAL) NT-Pro B-Type Natriuretic Peptide (BNP) (01/07/2022 8:01 PM CABINET WORKER) P athologist Signature NT-Pro BNP 2344 (H) <=141 pg/mL 01/07/2022 CNFL 8:35 PM CABINET WORKER Comment: NT-proBNP values less than 300 pg/mL hav e a 99% negative predictive value for excluding acute con gestive heart failure. A cutoff of 1200 pg/mL for janeen ents with an eGFR<60 yields a diagnostic sensitivity and spec ificity of 89% and 72% for acute congestive heart failure. NT-proBNP values greater than 450 pg/mL are consistent wi th CHF in adults under 50 years of age. Specimen Anatomical Collection Method Collection Time Receive d Time (Source) Location / / Volume Laterality Blood (Blood, 01/07/2022 8:01 PM 01/08/20 8:03 Venous) CABINET WORKER PM CABINET WORKER Pj Jones C.N.P. LAB BLOOD ADD-ON Performing Organization Address City/State/ZIP Code Phon e Number [facility]- [address] [place] [id number] [place] [address] [address] (ABNORMAL) CBC without Differential (01/07/2022 8:01 PM CABINET WORKER) Patholo gist Method Time Signature Hemoglobin 17.3 (H) 11.6 - 01/07/2022 CNFL 15.0 g/dL 8:17 PM CABINET WORKER Hematocrit 53.5 (H) 35.5 - 01/07/2022 CNFL 44.9 % 8:17 PM CABINET WORKER Erythrocytes 5.35 (H) 3.92 - 01/07/2022 CNFL 5.13 8:17 PM CABINET WORKER x10(12)/L MCV 100.0 (H) 78.2 - 01/07/2022 CNFL 97.9 fL 8:17 PM CABINET WORKER RBC Distrib Width 14.2 12.2 - 01/07/2022 CNFL 16.1 % 8:17 PM CABINET WORKER Platelet Count 196 157 - 371 01/07/2022 CNFL x10(9)/L 8:17 PM CABINET WORKER Leukocytes 16.1 (H) 3.4 - 9.6 01/07/2022 CNFL x10(9)/L 8:17 PM CABINET WORKER Specimen Anatomical Collection Method Collection Time Receive d Time (Source) Location / / Volume Laterality Blood (Blood, 01/07/2022 8:01 PM 01/08/20 8:03 Venous) CABINET WORKER PM CABINET WORKER Pj Jones C.N.P. LAB BLOOD ADD-ON Performing Organization Address City/State/ZIP Code Phon e Number [address] [address] [place] [address] [address] (ABNORMAL) Comprehensive Metabolic Panel (01/07/2022 8:01 PM CABINET WORKER) P athologist Signature Potassium, P 3.8 3.6 - 5.2 01/07/2022 CNFL mmol/L 8:24 PM CABINET WORKER Sodium, P 138 135 - 145 01/07/2022 CNFL mmol/L 8:24 PM CABINET WORKER Chloride, P 96 (L) 98 - 107 01/07/2022 CNFL mmol/L 8:24 PM CABINET WORKER Bicarbonate, P 32 (H) 22 - 29 01/07/2022 CNFL mmol/L 8:24 PM CABINET WORKER Anion Gap, P 10 7 - 15 01/07/2022 CNFL 8:24 PM CABINET WORKER BUN (Blood Urea 19 6 - 21 01/07/2022 CNFL Nitrogen), P mg/dL 8:24 PM CABINET WORKER Creatinine 0.73 0.59 - 01/07/2022 CNFL 1.04 mg/dL 8:24 PM CABINET WORKER Estimated GFR >90 >=60 01/07/2022 CNFL (eGFR) mL/min/BSA 8:24 PM CABINET WORKER Comment: Estimated GFR calculated using the 2020 CKD_EPI creatinine equation. Calcium, Total, P 8.5 (L) 8.6 - 10.0 mg/dL 01/07/2022 8:24 PM CABINET WORKER CNFL Glucose, P 126 70 - 140 mg/dL 01/07/2022 8:24 PM CABINET WORKER C NFL Protein, Total, P 6.8 6.3 - 7.9 g/dL 01/07/2022 8:24 P M CABINET WORKER CNFL Albumin, P 3.0 (L) 3.5 - 5.0 g/dL 01/07/2022 8:24 PM CABINET WORKER C NFL Aspartate Aminotransferase 79 (H) 8 - 43 U/L 01/07/2022 8 :24 PM CABINET WORKER CNFL (AST), P Alkaline Phosphatase, P 270 (H) 35 - 104 U/L 01/07/2022 8: 24 PM CABINET WORKER CNFL Alanine Aminotransferase 100 (H) 7 - 45 U/L 01/07/2022 8:2 4 PM CABINET WORKER CNFL (ALT), P Bilirubin, Total, P 0.8 <=1.2 mg/dL 01/07/2022 8:24 PM CABINET WORKER CNFL Specimen Anatomical Collection Method Collection Time Receive d Time (Source) Location / / Volume Laterality Blood (Blood, 01/07/2022 8:01 PM 01/08/20 8:03 Venous) CABINET WORKER PM CABINET WORKER Pj Jones C.N.P. LAB BLOOD ADD-ON Performing Organization Address City/State/ZIP Code Phon e Number [phone] [place] [address] [place] [address] System [address] Critical Care (12/31/2021 1:25 PM CABINET WORKER) Narrative Karine Goins P.A.-C. - 12/31/2021 1:25 PM CABINET WORKER Karine Goins P.A.-C. ? 12/31/2021 ??3:29 PM Critical Care Performed by: Karine Goins P.A.-C. Authorized by: Karine Goins P.A.-C. Critical care provider statement: Critical care total time (minutes): 30 Critical care time was exclusive of: sep luis billable procedures and treating other patients and teaching devon saldana CPR was performed on this patient: no ?? Critical care was necessary to treat or prevent imminent or life-threatening deterioration of the fo llowing conditions: respiratory failure Critical care was time spent personally by me on the following activities: blood draw for specimens, development of treatment plan with patient or surrogate, documenting in the patient ch art, evaluation of patient's response to treatment, examination of pa tient, obtaining history from patient or surrogate, ordering and perfo rming treatments and interventions, ordering and review of la boratory studies, ordering and review of radiographic studies, pulse ox imetry, re-evaluation of patient's condition and review of old charts I assumed direction of critical care for this patient from another provider in my specialty: no ?? Karine Goins P.A.-C. PROCEDURE/MINOR SURGICAL ORD ERABLES (ABNORMAL) Troponin T, 2H/6H, 5th Gen (12/31/2021 11:31 AM CABINET WORKER) P athologist Signature Troponin T, 2 12 (H) <=10 ng/L 12/31/2021 CNFL hr, 5th gen 12:01 PM CABINET WORKER Comment: Biotin has been identified by the edna levy as a potential interfering substance. Higher concentrations of biotin may be found in multivitamins, mcgregor ir/nail supplements, and workout supplements. If the result d oes not match clinical observations, repeat testing af ter patient refrains from the use of supplements for at least 12 hours. 2H Delta -3 ng/L 12/31/2021 12:01 PM CABINET WORKER CNFL 2H Delta Interp Not Changing 12/31/2021 12:[address] CNFL Troponin T, 6 hr, 5th gen CANCELED ng/L 12/31/2021 12: 01 PM CABINET WORKER CNFL Comment: Result canceled by the esha mejia Specimen Anatomical Collection Method Collection Time Receive d Time (Source) Location / / Volume Laterality Blood (Blood, 12/31/2021 11:31 12/31/2021 Venous) AM CABINET WORKER 11:33 AM CABINET WORKER Narrative [facility] - 12/31/2021 12:01 PM CABINET WORKER Specimen Information: Specimen ID: [id number] Specimen Type: Blood Specimen Collection Start Date: 022 11:31 AM Specimen Received Date: 12/31/2021 11:3 3 AM Specimen ID: [id number] Specimen Type: Blood Karine Goins P.A.-C. LAB BLOOD TROPONIN Performing Organization Address City/State/ZIP Code Phon e Number [address] [phone] [place] [address] (ABNORMAL) VBG (Venous Blood Gas), POCT (12/31/2021 9:22 AM CABINET WORKER) [facility] Method Time Signature pH, Venous, 7.41 7.32 - 7.43 12/31/2021 CNFL POCT, B 9:22 AM CABINET WORKER pCO2, Venous, 58 (H) 41 - 51 mm Hg 12/31/2021 CNFL POCT, B 9:22 AM CABINET WORKER pO2, Venous, 28 Not applicable 12/31/2021 CNFL POCT, B mm Hg 9:22 AM CABINET WORKER HCO3, Venous, 37 Not applicable 12/31/2021 CNFL POCT, B mmol/L 9:22 AM CABINET WORKER Base Excess, 12 Not applicable 12/31/2021 CNFL Venous, POCT, mmol/L 9:22 AM CABINET WORKER B O2 Saturation, 52 Not applicable 12/31/2021 CNFL Venous, POCT, % 9:22 AM CABINET WORKER B Sample Type, ABEL 12/31/2021 CNFL Blood Gas, 9:22 AM CABINET WORKER POCT Specimen Anatomical Collection Method Collection Time Receive d Time (Source) Location / / Volume Laterality Blood 12/31/2021 9:22 AM 9:23 CABINET WORKER AM CABINET WORKER Generic Rals LAB POCT ORDERABLES - DEVICE Performing Organization Address City/State/[facility] Code Phon e Number [address] [phone] [address] Influenza A/B, SARS CoV-2, PCR, Rapid, Varies Symptomatic (12/31/2021 9:10 AM CABINET WORKER) [facility] Method Time Signature Influenza A, Negative Negative 12/31/2021 CNFL PCR, Rapid, V 9:50 AM CABINET WORKER Influenza B, Negative Negative 12/31/2021 CNFL PCR, Rapid, V 9:50 AM CABINET WORKER SARS CoV-2, Undetected Undetected 12/31/2021 CNFL PCR, Rapid, V 9:50 AM CABINET WORKER Comment: ----ADDITIONAL INFORMATION---- This RT-PCR test was performed using the Trey SARS-CoV-2 and Influenza A/B Reagent assay from [employer], which has received Emergency Use Authori zation(EUA) by the U.S. Food and Drug Administration . Fact sheets for this Emergency Use Autho rization (EUA) assay can be found at the following link s: For Healthcare Providers: https://www.fda.gov/media/970724/downloa d For Patients: https://www.fda.gov/media/693215/downloa d Infl A/B, SARS CoV-2, PCR, Source Swab, Nasopharynx 12/31/2021 9:50 AM CABINET WORKER [facility] Specimen Anatomical Collection Method Collection Time Receive d Time (Source) Location / / Volume Laterality Swab 12/31/2021 9:10 AM 9:50 (Nasopharynx) CABINET WORKER AM CABINET WORKER Karine Goins P.A.-C. LAB MICROBIOLOGY - GENERAL O RDERABLES Performing Organization Address [facility] Phon e Number [address] [address] [place] [address] (ABNORMAL) Troponin T, Baseline, 5th gen (12/31/2021 9:10 AM CABINET WORKER) P athologist Signature Troponin T, 15 (H) <=10 ng/L 12/31/2021 [facility] Baseline, 5th 9:47 AM CABINET WORKER gen Comment: Biotin has been identified by the [...] Location / / Volume Laterality Blood (Blood, 12/31/2021 9:10 AM 01/01/20 22 9:14 Venous) CABINET WORKER AM CABINET WORKER Karine Goins P.A.-C. LAB BLOOD TROPONIN Performing Organization Address [facility] Phon e Number [address] [address] [place] [address] [address] Blood Gas, Venous, POCT (12/31/2021 9:10 AM CABINET WORKER) Analysis Performed At Patho logist Time Signature Blood Gas, Collected DEFAULT 12/31/2021 CNFL POCT, B 9:14 AM CABINET WORKER Specimen Anatomical Collection Method Collection Time Receive d Time (Source) Location / / Volume Laterality Blood (Other, 12/31/2021 9:10 AM 01/01/20 9:14 Specify in CABINET WORKER AM CABINET WORKER Comments) Karine Goins P.A.-C. LAB POCT ORDERABLES - DEVICE Performing Organization Address City/State/ZIP Code Phon e Number [facility]- [address] [place] [id number] [place] [address] [address] (ABNORMAL) CBC with Differential, Blood (12/31/2021 9:10 AM CABINET WORKER) Patholo gist Method Time Signature Hemoglobin 15.9 (H) 11.6 - 12/31/2021 CNFL 15.0 g/dL 9:18 AM CABINET WORKER Hematocrit 50.1 (H) 35.5 - 12/31/2021 CNFL 44.9 % 9:18 AM CABINET WORKER Erythrocytes 4.90 3.92 - 12/31/2021 CNFL 5.13 9:18 AM CABINET WORKER x10(12)/L MCV 102.2 (H) 78.2 - 12/31/2021 CNFL 97.9 fL 9:18 AM CABINET WORKER RBC Distrib Width 14.0 12.2 - 12/31/2021 CNFL 16.1 % 9:18 AM CABINET WORKER Platelet Count 150 (L) 157 - 371 12/31/2021 CNFL x10(9)/L 9:18 AM CABINET WORKER Leukocytes 8.4 3.4 - 9.6 12/31/2021 CNFL x10(9)/L 9:18 AM CABINET WORKER Neutrophils 7.00 (H) 1.56 - 12/31/2021 CNFL 6.45 9:18 AM CABINET WORKER x10(9)/L Lymphocytes 0.75 (L) 0.95 - 12/31/2021 CNFL 3.07 9:18 AM CABINET WORKER x10(9)/L Monocytes 0.59 0.26 - 12/31/2021 CNFL 0.81 9:18 AM CABINET WORKER x10(9)/L Eosinophils <0.04 0.03 - 12/31/2021 CNFL 0.48 9:18 AM CABINET WORKER x10(9)/L Basophils <0.04 0.01 - 12/31/2021 CNFL 0.08 9:18 AM CABINET WORKER x10(9)/L Specimen Anatomical Collection Method Collection Time Receive d Time (Source) Location / / Volume Laterality Blood (Blood, 12/31/2021 9:10 AM 01/01/20 9:13 Venous) CABINET WORKER AM CABINET WORKER Karine Goins P.A.-C. LAB BLOOD ADD-ON Performing Organization Address City/State/ZIP Code Phon e Number [facility]- [address] [place] [phone] [place] [address] [place] [address] (ABNORMAL) Basic Metabolic Panel (12/31/2021 9:10 AM CABINET WORKER) P athologist Signature Potassium, P 4.6 3.6 - 5.2 12/31/2021 CNFL mmol/L 9:47 AM CABINET WORKER Sodium, P 137 135 - 145 12/31/2021 CNFL mmol/L 9:47 AM CABINET WORKER Chloride, P 97 (L) 98 - 107 12/31/2021 CNFL mmol/L 9:47 AM CABINET WORKER Bicarbonate, P 29 22 - 29 12/31/2021 CNFL mmol/L 9:47 AM CABINET WORKER Anion Gap, P 11 7 - 15 12/31/2021 CNFL 9:47 AM CABINET WORKER BUN (Blood Urea 19 6 - 21 12/31/2021 CNFL Nitrogen), P mg/dL 9:47 AM CABINET WORKER Creatinine 0.78 0.59 - 12/31/2021 CNFL 1.04 mg/dL 9:47 AM CABINET WORKER Estimated GFR >90 >=60 12/31/2021 CNFL (eGFR) mL/min/BSA 9:47 AM CABINET WORKER Comment: Estimated GFR calculated using the 2020 CKD_EPI creatinine equation. Calcium, Total, P 8.5 (L) 8.6 - 10.0 mg/dL 12/31/2021 9:47 AM CABINET WORKER CNFL Glucose, P 118 70 - 140 mg/dL 12/31/2021 9:47 AM CABINET WORKER C NFL Specimen Anatomical Collection Method Collection Time Receive d Time (Source) Location / / Volume Laterality Blood (Blood, 12/31/2021 9:10 AM 01/01/20 9:13 Venous) CABINET WORKER AM CABINET WORKER Karine Goins P.A.-C. LAB BLOOD ADD-ON Performing Organization Address City/State/ZIP Code Phon e Number [facility]- [address] [place] [address] [place] [address] [place] [address] System in [place] [address] Bl ECG 12 Lead (12/31/2021 8:45 AM CABINET WORKER) P athologist Signature Ventricular Rate 100 BPM MUSE ECG/Min MS Interval 114 ms MUSE QRSD Interval 104 ms MUSE QT Interval 402 ms MUSE QTC Interval 518 ms MUSE P [place] 66 degrees MUSE R [place] 111 degrees MUSE T Wave [place] -55 degrees MUSE Specimen Anatomical Collection Method Collection Time Receive d Time (Source) Location / / Volume Laterality 12/31/2021 8:45 AM 8:52 CABINET WORKER AM CABINET WORKER Impressions MUSE - 12/31/2021 8:52 AM CABINET WORKER Poor data quality Normal sinus rhythm with short MS Right axis deviation Incomplete right bundle branch block Right ventricular hypertrophy Cannot rule out Anteroseptal infarct ST and T wave abnormality, consider infe rior ischemia ST and T wave abnormality, consider ante rolateral ischemia Prolonged QT When compared with ECG of 19-AUG-2020 12 :42, Significant changes have occurred Reviewed by PRAKASH Savage Narrative This result has an attachment that is no t available. Procedure Note Rob Walter M.D. - 12/31/2021Formatt ing of this note might be different from the original. IMPRESSION: Poor data quality Normal sinus rhythm with short MS Right axis deviation Incomplete right bundle branch block Right ventricular hypertrophy Cannot rule out Anteroseptal infarct ST and T wave abnormality, consider infe rior ischemia ST and T wave abnormality, consider ante rolateral ischemia Prolonged QT When compared with ECG of 19-AUG-2020 12 :42, Significant changes have occurred Reviewed by PRAKASH Savage Karine Goins P.A.-C. ECG ORDERABLES Performing Organization Address City/State/ZIP Code Phon e Number MUSE MUSE NA from Last 3 Months Insurance Payer Benefit Plan Subscriber ID Effective Dates Phone Address Type / Group [place] [id number] 2021-Presen [phone] [address] Medicaid HMO t [address] [place] [address] Advance Directives For more information, please contact: [phone] Latest Code Status on File Code Status Date Activated Date Inactivated Comments Full Code 10/23/2019 4:09 AM 10/27/2019 3:11 PM Question Answer Comments Full Code: Not Discussed Due to: Patient not available Care Teams Clinical Registered Nurse Relationship Specialty Start Date End Date Ro Norton APRN, C.N.P., PCP - General Family Medicine D.N.P. [id number] [id number]
--- OUTSIDE RECORDS SUMMARY | 2022-01-11 00:15 | XMS_ITS | Encounter Summary ---
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 Receive d Time (Source) Location / / Volume Laterality Blood (Blood, 12/31/2021 11:31 12/31/2021 Venous) AM BAKERY CHEF 11:33 AM BAKERY CHEF Narrative [facility] - 12/31/2021 12:01 PM BAKERY CHEF Specimen Information: Specimen ID: [id number] Specimen Type: Blood Specimen Collection Start Date: 022 11:31 AM Specimen Received Date: 12/31/2021 11:3 3 AM Specimen ID: [id number] Specimen Type: Blood Karine Goins P.A.-C. LAB BLOOD TROPONIN Performing Organization Address City/State/ZIP Code Phon e Number [place] [address] [place] [address] [place] [address] DX Chest AP or PA and Lateral 2 Views (12/31/2021 9:23 AM BAKERY CHEF) Anatomical Region Laterality Modality Chest, Thoracic RST LOS, Thoracic ARZ LOS, Thoracic N/A Digital Radiography FLA LOS Specimen (Source) Anatomical Collection Method Collection Time Re ceived Time Location / / Volume Laterality 12/31/2021 9:26 AM BAKERY CHEF Impressions 12/31/2021 9:32 AM BAKERY CHEF Unchanged enlargement of the cardiac silhouette and central pulmonary arteries. Intact median sternotomy wires. Mild increased interstitial pulmonary markings which could be seen with acute interstitial pulmonary edema. No l arge pleural effusion. Mild chronic degenerative changes in the spine. Comparison, 06/19/2020. Narrative 12/31/2021 9:32 AM BAKERY CHEF EXAM: DX CHEST AP OR PA AND LATERAL 2 VIEWS Procedure Note Reese Lynch M.B., Michael Roblero - 12/2021 EXAM: DX CHEST AP OR PA AND LATERAL 2 EWS IMPRESSION: Unchanged enlargement of the cardiac singh houette and central pulmonary arteries. Intact median sternotomy wires. Mild increased interstitial pulmonary markings which could be seen with acute interstitial pulmonary edema. No l arge pleural effusion. Mild chronic degenerative changes in the spine. Comparison, 06/19/2020. Karine Goins P.A.-C. IMG DIAGNOSTIC IMAGING PROCE DURES (ABNORMAL) VBG (Venous Blood Gas), POCT (12/31/2021 9:22 AM BAKERY CHEF) [facility] Method Time Signature pH, Venous, 7.41 7.32 - 7.43 12/31/2021 CNFL POCT, B 9:22 AM BAKERY CHEF pCO2, Venous, 58 (H) 41 - 51 mm Hg 12/31/2021 CNFL POCT, B 9:22 AM BAKERY CHEF pO2, Venous, 28 Not applicable 12/31/2021 CNFL POCT, B mm Hg 9:22 AM BAKERY CHEF HCO3, Venous, 37 Not applicable 12/31/2021 CNFL POCT, B mmol/L 9:22 AM BAKERY CHEF Base Excess, 12 Not applicable 12/31/2021 CNFL Venous, POCT, mmol/L 9:22 AM BAKERY CHEF B O2 Saturation, 52 Not applicable 12/31/2021 CNFL Venous, POCT, % 9:22 AM BAKERY CHEF B Sample Type, ABEL 12/31/2021 CNFL Blood Gas, 9:22 AM BAKERY CHEF POCT Specimen Anatomical Collection Method Collection Time Receive d Time (Source) Location / / Volume Laterality Blood 12/31/2021 9:22 AM 9:23 BAKERY CHEF AM BAKERY CHEF Generic Rals LAB POCT ORDERABLES - DEVICE Performing Organization Address City/State/ZIP Code Phon e Number [address] [address] [place] [address] [address] Influenza A/B, SARS CoV-2, PCR, Rapid, Varies Symptomatic (12/31/2021 9:10 AM BAKERY CHEF) [facility] Method Time Signature Influenza A, Negative Negative 12/31/2021 CNFL PCR, Rapid, V 9:50 AM BAKERY CHEF Influenza B, Negative Negative 12/31/2021 CNFL PCR, Rapid, V 9:50 AM BAKERY CHEF SARS CoV-2, Undetected Undetected 12/31/2021 CNFL PCR, Rapid, V 9:50 AM BAKERY CHEF Comment: ----ADDITIONAL INFORMATION---- This RT-PCR test was performed using the Trey SARS-CoV-2 and Influenza A/B Reagent assay from [employer], which has received Emergency Use Authori zation(EUA) by the U.S. Food and Drug Administration . Fact sheets for this Emergency Use Autho rization (EUA) assay can be found at the following link s: For Healthcare Providers: https://www.fda.gov/media/405340/downloa d For Patients: https://www.fda.gov/media/408322/downloa d Infl A/B, SARS CoV-2, PCR, Source Swab, Nasopharynx 12/31/2021 9:50 AM BAKERY CHEF CNFL Specimen Anatomical Collection Method Collection Time Receive d Time (Source) Location / / Volume Laterality Swab 12/31/2021 9:10 AM 9:50 (Nasopharynx) BAKERY CHEF AM BAKERY CHEF Karine Goins P.A.-C. LAB MICROBIOLOGY - GENERAL O RDERABLES Performing Organization Address [facility] Code Phon e Number [address] [address] [place] [address] [address] (ABNORMAL) Troponin T, Baseline, 5th gen (12/31/2021 9:10 AM BAKERY CHEF) athologist Signature Troponin T, 15 (H) <=10 ng/L 12/31/2021 CNFL Baseline, 5th 9:47 AM BAKERY CHEF gen Comment: Biotin has been identified by [...] Laterality Blood (Blood, 12/31/2021 9:10 AM 01/01/20 9:14 Venous) BAKERY CHEF AM BAKERY CHEF Karine Goins P.A.-C. LAB BLOOD TROPONIN Performing Organization Address [facility] Code Phon e Number [address] [address] [place] [address] [address] (ABNORMAL) Basic Metabolic Panel (12/31/2021 9:10 AM BAKERY CHEF) athologist Signature Potassium, P 4.6 3.6 - 5.2 12/31/2021 CNFL mmol/L 9:47 AM BAKERY CHEF Sodium, P 137 135 - 145 12/31/2021 CNFL mmol/L 9:47 AM BAKERY CHEF Chloride, P 97 (L) 98 - 107 12/31/2021 CNFL mmol/L 9:47 AM BAKERY CHEF Bicarbonate, P 29 22 - 29 12/31/2021 CNFL mmol/L 9:47 AM BAKERY CHEF Anion Gap, P 11 7 - 15 12/31/2021 CNFL 9:47 AM BAKERY CHEF BUN (Blood Urea 19 6 - 21 12/31/2021 CNFL Nitrogen), P mg/dL 9:47 AM BAKERY CHEF Creatinine 0.78 0.59 - 12/31/2021 CNFL 1.04 mg/dL 9:47 AM BAKERY CHEF Estimated GFR >90 >=60 12/31/2021 CNFL (eGFR) mL/min/BSA 9:47 AM BAKERY CHEF Comment: Estimated GFR calculated using the 2020 CKD_EPI creatinine equation. Calcium, Total, P 8.5 (L) 8.6 - 10.0 mg/dL 12/31/2021 9:47 AM BAKERY CHEF CNFL Glucose, P 118 70 - 140 mg/dL 12/31/2021 9:47 AM BAKERY CHEF C NFL Specimen Anatomical Collection Method Collection Time Receive d Time (Source) Location / / Volume Laterality Blood (Blood, 12/31/2021 9:10 AM 01/01/20 9:13 Venous) BAKERY CHEF AM BAKERY CHEF Karine Goins P.A.-C. LAB BLOOD ADD-ON Performing Organization Address City/State/ZIP Code Phon e Number [facility] [address] [place] [id number] [place] [address] [place] [address] [address] (ABNORMAL) CBC with Differential, Blood (12/31/2021 9:10 AM BAKERY CHEF) [facility] gist Method Time Signature Hemoglobin 15.9 (H) 11.6 - 12/31/2021 CNFL 15.0 g/dL 9:18 AM BAKERY CHEF Hematocrit 50.1 (H) 35.5 - 12/31/2021 CNFL 44.9 % 9:18 AM BAKERY CHEF Erythrocytes 4.90 3.92 - 12/31/2021 CNFL 5.13 9:18 AM BAKERY CHEF x10(12)/L MCV 102.2 (H) 78.2 - 12/31/2021 CNFL 97.9 fL 9:18 AM BAKERY CHEF RBC Distrib Width 14.0 12.2 - 12/31/2021 CNFL 16.1 % 9:18 AM BAKERY CHEF Platelet Count 150 (L) 157 - 371 12/31/2021 CNFL x10(9)/L 9:18 AM BAKERY CHEF Leukocytes 8.4 3.4 - 9.6 12/31/2021 CNFL x10(9)/L 9:18 AM BAKERY CHEF Neutrophils 7.00 (H) 1.56 - 12/31/2021 CNFL 6.45 9:18 AM BAKERY CHEF x10(9)/L Lymphocytes 0.75 (L) 0.95 - 12/31/2021 CNFL 3.07 9:18 AM BAKERY CHEF x10(9)/L Monocytes 0.59 0.26 - 12/31/2021 CNFL 0.81 9:18 AM BAKERY CHEF x10(9)/L Eosinophils <0.04 0.03 - 12/31/2021 CNFL 0.48 9:18 AM BAKERY CHEF x10(9)/L Basophils <0.04 0.01 - 12/31/2021 CNFL 0.08 9:18 AM BAKERY CHEF x10(9)/L Specimen Anatomical Collection Method Collection Time Receive d Time (Source) Location / / Volume Laterality Blood (Blood, 12/31/2021 9:10 AM 01/01/20 22 9:13 Venous) BAKERY CHEF AM BAKERY CHEF Karine Goins P.A.-C. LAB BLOOD ADD-ON Performing Organization Address City/[facility]/ZIP Code Phon e Number [address] [address] [place] [address] [address] Blood Gas, Venous, POCT (12/31/2021 9:10 AM BAKERY CHEF) Analysis Performed At Patho logist Time Signature Blood Gas, Collected DEFAULT 12/31/2021 CNFL POCT, B 9:14 AM BAKERY CHEF Specimen Anatomical Collection Method Collection Time Receive d Time (Source) Location / / Volume Laterality Blood (Other, 12/31/2021 9:10 AM 01/01/20 22 9:14 Specify in BAKERY CHEF AM BAKERY CHEF Comments) Karine Goins P.A.-C. LAB POCT ORDERABLES - DEVICE Performing Organization Address [facility] Phon e Number [address] [address] [place] [address] ECG 12 Lead (12/31/2021 8:45 AM BAKERY CHEF) P athologist Signature Ventricular Rate 100 BPM MUSE ECG/Min VT Interval 114 ms MUSE QRSD Interval 104 ms MUSE QT Interval 402 ms MUSE QTC Interval 518 ms MUSE P [place] 66 degrees MUSE R [place] 111 degrees MUSE T Wave [place] -55 degrees MUSE Specimen Anatomical Collection Method Collection Time Receive d Time (Source) Location / / Volume Laterality 12/31/2021 8:45 AM 8:52 BAKERY CHEF AM BAKERY CHEF Impressions MUSE - 12/31/2021 8:52 AM BAKERY CHEF Poor data quality Normal sinus rhythm with short VT Right axis deviation Incomplete right bundle branch [...] data quality Normal sinus rhythm with short VT Right axis deviation Incomplete right bundle branch [...] Code Phon e Number MUSE MUSE NA documented in this encounter Visit Diagnoses Diagnosis Acute And Chronic Respiratory Failure Wi th Hypoxia (HCC) - Primary Chronic Obstructive Pulmonary Disease Ex acerbation (HCC) Edema Pulmonary (HCC) Other Secondary Pulmonary Hypertension ( HCC) Thrombocytopenia (HCC) documented in this encounter Administered Medications Inactive Administered Medications - up to 3 most recent administrations Medication Order MAR Action Action Date Dose Rate Site furosemide (LASIX) 10 mg/mL injection - ADS Override Pull Starting on Mon12/31/21 at 0958, For 1 dose, Created by mellyt override furosemide injection 20 mg (LASIX) Given 12/31/2021 10:01 AM BAKERY CHEF 20 mg 20 mg, intravenous, Once, On Mon12/31/21 at 0945, For 1 dose, Adults: Doses less than 120 mg: IV push over 20 mg/minute. Doses 120 mg or greater: IVPB at 4 mg/minute. Peds/Neonates: Doses less than 120 mg over 0.5 mg/kg/minute. Doses 120 mg or greater: IVPB at 4 mg/minute. ipratropium-albuteroL 0.5-2.5 mg/3 mL nebulizer Given 12/31/2021 8:55 AM BAKERY CHEF 3 mL solution 3 mL (DUONEB) 3 mL, nebulization, Once, On Mon12/31/21 at 0835, For 1 dose ipratropium-albuteroL 0.5-2.5 mg/3 mL Given 12/31/2021 10:00 AM BAKERY CHEF 3 mL nebulizer solution 3 mL (DUONEB) 3 mL, nebulization, Once, On Mon12/31/21 at 0927, For 1 dose methylPREDNISolone sod succinate (PF) Given 12/31/2021 9:[address] 125 mg injection 125 mg (SOLU-Medrol) 125 mg, intravenous, Once, On Mon12/31/21 at 0835, For 1 dose, Activate vial to a final concentration of 62.5 mg/mL sodium chloride 0.9 % injection 10 mL 10 mL, intravenous, As needed, line care, Starting on Mon12/31/21 at 0832, Peripheral Intravenous Catheter and Rapid Infusion Cat heter, prior to blood sampling, post blood transfusion or post blood samplin g sodium chloride 0.9 % injection 3 mL 3 mL, intravenous, As needed, line care, Starting on Mon12/31/21 at 0832, Prior to and following infusion and between multi ple consecutive infusions: sodium chloride 0.9 % injection sodium chloride 0.9 % injection 3 mL 3 mL, intravenous, Every 12 hours schedu led, First dose on Mon12/31/21 at 0900, Peripheral Intravenous Catheter and Rapi d Infusion Catheter, when no infusion to maintain patency documented in this encounter Active and Recently Administered Medications Times are shown in BAKERY CHEF. Scheduled Medication Order 12/29/2021 12/30/2021 12/31/2021 furosemide injection 20 mg (LASIX) (COMPLETED) 1001 (Given - Provider: Annie Pugh R.N.) 20 mg, intravenous, Once, On Mon 2 at 0945, For 1 dose, Adults: Doses less than 120 mg: IV push over 20 mg/minute. Doses 120 mg or greater: IVPB at 4 mg/minute. Peds/Neonates: Doses less than 120 mg over 0.5 mg/kg/minute. Doses 120 mg or greater: IVPB at 4 mg /minute. ipratropium-albuteroL 0.5-2.5 mg/3 mL ne bulizer solution 3 mL (DUONEB) (COMPLETED) 0855 (Given - Provid er: Avis Good, R.R.T., L.R.T.) 3 mL, nebulization, Once, On Mon12/31/21 at 0835, For 1 dose ipratropium-albuteroL 0.5-2.5 mg/3 mL ne bulizer solution 3 mL (DUONEB) (COMPLETED) 1000 (Given - Provid er: Avis Good, R.R.T., L.R.T.) 3 mL, nebulization, Once, On Mon12/31/21 at 0927, For 1 dose methylPREDNISolone sod succinate (PF) in jection 125 mg (SOLU-Medrol) (COMPLETED) 09 (Given - Provid er: Annie Pugh, R.N.) 125 mg, intravenous, Once, On Mon at 0835, For 1 dose, Activate vial to a final concentration of 62.5 mg/mL sodium chloride 0.9 % injection 3 mL 0900 (Due) 3 mL, intravenous, Every 12 hours schedu led, First dose on Mon12/31/21 at 0900, Peripheral Intravenous Catheter and Rapid Infusion Catheter, when no infusion to maintain patency PRN Medication Order 12/29/2021 12/30/2021 12/31/2021 sodium chloride 0.9 % injection 10 mL 10 mL, intravenous, As needed, line care , Starting on Mon12/31/21 at 0832, Peripheral Intravenous Catheter and Rapid Infusion Catheter, prior to blood sampling, post blood transfusion or post blood sampling sodium chloride 0.9 % injection 3 mL 3 mL, intravenous, As needed, line care, Starting on Mon12/31/21 at 0832, Prior to and following infusion and between multiple consecutive infusions: sodium chloride 0.9 % injection documented in this encounter Additional Health Concerns Infection Onset Date Last Indicated Resolved Time COVID19 Pending 12/31/2021 12/31/2021 12/31/2021 9:51 AM BAKERY CHEF documented as of this encounter Care Teams Supervisor Fruit Grading Relationship Specialty Start Date End Date Ro Norton APRN, C.N.P., PCP - General Family Medicine D.N.P. [address] [phone] documented as of this encounter
--- OUTSIDE RECORDS SUMMARY | 2022-01-11 00:15 | XMS_ITS | Encounter Summary ---
:1970 Author Organization [facility] Address [address] [place] [id number] Care Team Providers Name Role Phone Ro Norton APRN, C.N.Kirsty, D.N.P. Primary Care Provider Encounter Details Date Type Department Care Team Description 10/20/2021 E-Visit [facility] Express Care Anika Lyn Express Care Online for at the [facility] on MORGAN C. N.P. Athlete's Foot the 4th Floor [address] [place] [address] [address] [place] [phone] Social History Tobacco Use Types Packs/Day Years [...] do you attend rastafarian or Never 2021 jewish services? Do you [...] Appointment Radiology Ro Norton APRN, C.N.P., D.N.P. [phone] [place] [phone] (Amanda goldman) 01/27/2022 Clinical Support Integrative Medicine Haris, Iv y [address] [place], [place] [phone] (Wo rk) documented as of this encounter Visit Diagnoses Diagnosis Onychomycosis - Primary documented in this encounter Care Teams Cake Wringer Relationship Specialty Start Date End Date Ro Norton APRN, C.N.P., PCP - General Family Medicine D.N.P. [phone] [place] [phone] documented as of this encounter
--- OUTSIDE RECORDS SUMMARY | 2022-01-11 00:15 | XMS_ITS | Encounter Summary ---
:1970 Author Organization [facility] Address [address] [place] [address] Care Team Providers Name Role Phone Ro Norotn APRN, C.N.P., D.N.P. Primary Care Provider Reason for Visit Reason Comments Form Review Medical opinion form Encounter Details Date Type Department Care Team Description 08/03/2021 Clinical Communication Department of Ro Norton Review Family MedicineElan APRN, (Medical op inion [facility] C.N.P., D.N.P. form ) Clinic, in [address] [phone] [place], [place] [phone] (Work) [phone] Social History Tobacco Use Types Packs/Day Years [...] do you attend restoration or Never 2021 baptist services? Do you [...] Form emailed to Ro Norton for review/signature APPLICATIONS CHEMIST: [facility] PHONE NUMBER: [phone] INFO REQUESTED: Medical Opinion Form INSTRUCTIONS: Fax back to [phone] Telephone Encounter - Mary Cali - 08/03/2021 3:32 PM CDT Work Comp form received by [facility] Forms Team on 08/03/21 from patient. Please allow 7-10 business days for form completion documented in this encounter Plan of Treatment Upcoming Encounters Date Type Specialty Care Team Description 01/14/2022 Appointment Radiology Ro Norton APRN, C.N.P., D.N.P. [address] [phone] (Wo rk) 01/27/2022 Clinical Support Integrative Medicine Haris, Iv y [address] [place], [place] [phone] (Wo rk) documented as of this encounter Visit Diagnoses Not on filedocumented in this encounter Care Teams Health Services Director Relationship Specialty Start Date End Date Ro Norton APRN, C.N.P., PCP - General Family Medicine D.N.P. [phone] [phone] documented as of this encounter
--- OUTSIDE RECORDS SUMMARY | 2022-01-11 00:15 | XMS_ITS | Encounter Summary ---
:1970 Author Organization [facility] Address [address] [place] [address] Care Team Providers Name Role Phone Ro Norton APRN C.N.PRaffy, D.N.P. Primary Care Provider Reason for Referral Outpatient (Routine) - Authorized Specialty Diagnoses / Procedures Referred By Contact Refer red To Contact Diagnoses Screening Mammogram Breast Cancer Ro Norton, [facility] Procedures BI Breast Screening Bilateral with Tomosynthesis C.N.P., D.N.P. [address] [place] [phone] Referral ID Status Reason Start Date Expiration Date Visits V isits Requested Authorized [id number] Authorized 12/21/2021 12/21/2022 1 1 Encounter Details Date Type Department Care Team Description 12/21/2021 Orders Only [facility], Screening Mammogram MORGAN C.N.PRaffy, Breast Cancer D.N.P. [address] [place] [phone] Social History Tobacco Use Types Packs/Day [...] do you attend jewish or Never 2021 zoroastrianism services? Do you [...] Appointment Radiology Ro Norton APRN, C.N.P., D.N.P. [address] [phone] (Amanda goldman) 01/27/2022 Clinical Support Integrative Medicine Sohan Carballo y [address] [place], [place] [phone] (Amanda goldman) Scheduled Orders Name Type Priority Associated Order Schedule Diagnoses BI Breast Screening Imaging RAD - Routine (most Screening Mamm ogram Expected: Bilateral with inpatients and all Breast Cancer 2021, Tomosynthesis outpatients) Expires: 06/19/2022 documented as of this encounter Visit Diagnoses Diagnosis Screening Mammogram Breast Cancer documented in this encounter Care Teams Transport Aircrewman Relationship Specialty Start Date End Date Ro Norton APRN, C.N.P., PCP - General Family Medicine D.N.P. [phone] [phone] documented as of this encounter
--- OUTSIDE RECORDS SUMMARY | 2022-01-11 00:15 | XMS_ITS | Encounter Summary ---
:1970 Author Organization [facility] Address [address] [place] [address] Care Team Providers Name Role Phone Ro Norton APRN, C.N.P., D.N.P. Primary Care Provider Encounter Details Date Type Department Care Team Description 07/26/2021 Orders Only Department of Family Ro Norton He patitis C (Primary Medicine, [place], C.N.P., Dx) Clinic, in [address] [phone] Social History Tobacco Use Types Packs/Day Years [...] do you attend yazidism or Never 2021 amish services? Do you belong to any clubs [...] Appointment Radiology Ro Norton APRN, C.N.P., D.N.P. [address] [phone] (Amanda goldman) 01/27/2022 Clinical Support Integrative Medicine Haris, Iv y [address] [place], [place] [phone] (Amanda rk) documented as of this encounter Visit Diagnoses Diagnosis Hepatitis C - Primary documented in this encounter Care Teams Multi Needle Machine Operator Relationship Specialty Start Date End Date Ro Norton APRN, C.N.P., PCP - General Family Medicine D.N.P. [address] [phone] documented as of this encounter
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
--- OUTSIDE RECORDS SUMMARY | 2022-01-11 00:15 | XMS_ITS | Encounter Summary ---
:1970 Author Organization [facility] Address [address] [place] [address] Care Team Providers Name Role Phone Ro Norton APRN C.N.P., D.N.P. Primary Care Provider Encounter Details Date Type Department Care Team Description 07/23/2021 Orders Only Department of [facility] Ro Norton AP RN, Medicine, [place] C.N.P., D .N.P. [facility], [place] [phone] [place] [phone] Social History Tobacco Use Types Packs/Day Years [...] or relatives? How often do you attend anabaptism or Never 2021 pentecostalism services? Do you belong to any clubs or No 02/25/2021 organizations such as anabaptism groups, unions, fraternal or athletic groups, or [...] Appointment Radiology Ro Norton APRN, C.N.P., D.N.P. [address] [phone] (Amanda goldman) 01/27/2022 Clinical Support Integrative Medicine Haris, Iv y [address] [place], [place] [phone] (Amanda goldman) documented as of this encounter Visit Diagnoses Not on filedocumented in this encounter Care Teams Fashion Consultant Selling Relationship Specialty Start Date End Date Ro Norton APRN, C.N.P., PCP - General Family Medicine D.N.P. [address] [phone] documented as of this encounter
--- OUTSIDE RECORDS SUMMARY | 2022-01-11 00:15 | XMS_ITS | Encounter Summary ---
:1970 Author Organization [facility] Address [address] [place] [address] Care Team Providers Name Role Phone Ro Norton APRN C.N.P., D.N.P. Primary Care Provider Encounter Details Date Type Department Care Team Description 07/29/2021 Orders Only Department of [facility] Ro Norton AP RN, Medicine, [place] C.N.P., D .N.P. [facility], [address] [address] [phone] Social History Tobacco Use Types Packs/Day Years [...] do you attend buddhism or Never 2021 pentecostalism services? Do you [...] Appointment Radiology Ro Norton APRN, C.N.P., D.N.P. [address] [phone] (Amanda goldman) 01/27/2022 Clinical Support Integrative Medicine Haris, Iv y [address] [place], [place] [phone] (Amanda goldman) documented as of this encounter Visit Diagnoses Not on filedocumented in this encounter Care Teams Patient Accounts Coordinator Relationship Specialty Start Date End Date Ro Norton APRN, C.N.P., PCP - General Family Medicine D.N.P. [address] [phone] documented as of this encounter
--- OUTSIDE RECORDS SUMMARY | 2022-01-11 00:15 | XMS_ITS | Encounter Summary ---
:1970 Author Organization [facility] Address [address] [place] [address] Care Team Providers Name Role Phone Ro Norton APRN, C.N.P., D.N.P. Primary Care Provider Encounter Details Date Type Department Care Team Description 09/22/2021 Orders Only Pharmacy Prior Auth [place] Paulette Barrera [phone] Social History Tobacco Use Types Packs/Day Years [...] or relatives? How often do you attend catholic or Never 2021 synagogue services? Do you belong to any clubs or No 02/25/2021 organizations such as catholic groups, unions, fraternal or athletic groups, or [...] Appointment Radiology Ro Norton APRN, C.N.P., D.N.P. [address] [phone] (Wo rk) 01/27/2022 Clinical Support Integrative Medicine Haris, Iv y [address] [place], [place] [phone] (Wo rk) documented as of this encounter Visit Diagnoses Not on filedocumented in this encounter Care Teams Animation Producer Relationship Specialty Start Date End Date Ro Norton APRN, C.N.P., PCP - General Family Medicine D.N.P. [address] [phone] documented as of this encounter
--- OUTSIDE RECORDS SUMMARY | 2022-01-11 00:16 | XMS_ITS | Encounter Summary ---
:1970 Author Organization [facility] Address [address] [place] [address] Care Team Providers Name Role Phone Ro Norton APRN C.N.P., D.N.P. Primary Care Provider Reason for Visit Reason Comments PA denied Encounter Details Date Type Department Care Team Description 07/09/2021 Clinical Communication Division of Pulmonary Lubna Mcmillan denied Medicine in Elan Faust M.D. [place] [address] [facility] [address] [place] [phone] [phone] Social History Tobacco Use Types Packs/Day Years [...] do you attend samaritan or Never 2021 mandaeism services? Do you [...] according to the pharmacist. Her insurance with [facility] [employer] terminated 04/19/2021. We had last been waiting for her to update our team with her [employer] ID number. I tried to reach Heatherbut she did not cotton picker. The [place] pharmacy indicates her [place] Medicaid number is [id number]. They looked for her are ID number and the pharmacist indicates she has just straight MA which started 05/21/2021. I was provided the phone number [phone] to complete the PA. I completed the PAover the phone and approval is pending. Telephone Encounter - Aniya Howard - 07/09/2021 9:33 AM CDT Call Message Who is Calling: Call Back: [phone] [place] [facility] Medicaid insurance [phone] Message: The PA for sildenafil got denied. Can we get a denial letter sent. Patient cant afford the medication and is out [facility] is giving a coupon to help pay for the medication also Aniya JOLLY [phone] documented in this encounter Plan of Treatment Upcoming Encounters Date Type Specialty Care Team Description 01/14/2022 Appointment Radiology Ro Norton APRN, C.N.P., D.N.P. [address] [place] [phone] (Wo rk) 01/27/2022 Clinical Support Integrative Medicine Haris, Iv y [address] [place], [place] [phone] (Wo rk) documented as of this encounter Visit Diagnoses Not on filedocumented in this encounter Care Teams Straight Truck Driver Relationship Specialty Start Date End Date Ro Norton APRN, C.N.P., PCP - General Family Medicine D.N.P. [phone] [place] [phone] documented as of this encounter
--- OUTSIDE RECORDS SUMMARY | 2022-01-11 00:16 | XMS_ITS | Encounter Summary ---
:1970 Author Organization [facility] Address [address] [place] [address] Care Team Providers Name Role Phone Ro Norton APRN C.N.P., D.N.P. Primary Care Provider Reason for Visit Reason Comments Med Refill Encounter Details Date Type Department Care Team Description 06/25/2021 Refill Division of Pulmonary Medicine Lubna Cleary M.D. Med Refill in [facility] [address] [facility] [address] [place] [address] [place] [address] [phone] Social History Tobacco Use Types Packs/Day Years [...] do you attend moravian or Never 2021 mormonism services? Do you belong to any clubs [...] Appointment Radiology Ro Norton APRN, C.N.P., D.N.P. [address] [phone] (Wo rk) 01/27/2022 Clinical Support Integrative Medicine Haris, Iv y [address] [place], [place] [phone] (Wo rk) documented as of this encounter Visit Diagnoses Not on filedocumented in this encounter Care Teams Allocation Analyst Relationship Specialty Start Date End Date Ro Norton APRN, C.N.P., PCP - General Family Medicine D.N.P. [address] [phone] documented as of this encounter
--- OUTSIDE RECORDS SUMMARY | 2022-01-11 00:16 | XMS_ITS | Encounter Summary ---
:1970 Author Organization [facility] Address [address] [place] [address] Care Team Providers Name Role Phone Ro Norton APRN, C.N.P., D.N.P. Primary Care Provider Encounter Details Date Type Department Care Team Description 06/04/2021 E-Visit [facility] Ingrid Steinberg E xpress Care Online for [facility] at the [place] Mikala MORA, M .S.N. Seasonal Allergies Building on the [address] [place], [place] [address] [facility] [address] [place], [place] [phone] (Wo rk) [address] [phone] Social History Tobacco Use Types Packs/Day Years [...] or relatives? How often do you attend bahai or Never 2021 islam services? Do you belong to any clubs or No 02/25/2021 organizations such as bahai groups, unions, fraternal or athletic groups, or [...] Appointment Radiology Ro Norton APRN, C.N.P., D.N.P. [address] [phone] (Amanda goldman) 01/27/2022 Clinical Support Integrative Medicine Haris, Iv y [address] [place], [place] [phone] (Amanda rk) documented as of this encounter Visit Diagnoses Diagnosis Congestion Nasal - Primary documented in this encounter Care Teams Creasing And Cutting Press Feeder Relationship Specialty Start Date End Date Ro Norton APRN, C.N.P., PCP - General Family Medicine D.N.P. [address] [phone] documented as of this encounter
--- OUTSIDE RECORDS SUMMARY | 2022-01-11 00:16 | XMS_ITS | Encounter Summary ---
:1970 Author Organization [facility] Address [address] [place] [address] Care Team Providers Name Role Phone Ro Norton APRN, C.N.P., D.N.P. Primary Care Provider Encounter Details Date Type Department Care Team Description 05/18/2021 Orders Only Pharmacy Prior Auth RO Kayy Velazquez [phone] Social History Tobacco Use Types Packs/Day Years [...] you attend oriental orthodox or Never 2021 zoroastrian services? Do you belong to any clubs [...] Appointment Radiology Ro Norton APRN, C.N.P., D.N.P. [address] [phone] (Wo rk) 01/27/2022 Clinical Support Integrative Medicine Hairs, Iv y [address] [place], [place] [phone] (Wo rk) documented as of this encounter Visit Diagnoses Not on filedocumented in this encounter Care Teams Supervisory Training Specialist Relationship Specialty Start Date End Date Ro Norton APRN, C.N.P., PCP - General Family Medicine D.N.P. [address] [phone] documented as of this encounter
--- OUTSIDE RECORDS SUMMARY | 2022-01-11 00:16 | XMS_ITS | Encounter Summary ---
:1970 Author Organization [facility] Address [address] [place] [address] Care Team Providers Name Role Phone Ro Norton APRN C.N.P., D.N.P. Primary Care Provider Reason for Visit Reason Comments Care Coordination Encounter Details Date Type Department Care Team Description 04/21/2021 Patient Outreach Department of Miranda Phillips Care Research Nurse rdination Cardiovascular Medicine R.N. in [facility] 200 [facility] [address] [place] [phone] [phone] Social History Tobacco Use Types Packs/Day Years [...] do you attend sabianism or Never 2021 congregational services? Do you belong to any clubs [...] attempts to reach her at this time. OGICAL AIDE documented in this encounter Plan of Treatment Upcoming Encounters Date Type Specialty Care Team Description 01/14/2022 Appointment Radiology Ro Norton APRN, C.N.P., D.N.P. [address] [phone] (Amanda goldman) 01/27/2022 Clinical Support Integrative Medicine Haris, Iv y [address] [place], [place] [phone] (Amanda goldman) documented as of this encounter Visit Diagnoses Not on filedocumented in this encounter Care Teams Trimming Machine Operator Relationship Specialty Start Date End Date Ro Norton APRN, C.N.P., PCP - General Family Medicine D.N.P. [address] [phone] documented as of this encounter
--- OUTSIDE RECORDS SUMMARY | 2022-01-11 00:16 | XMS_ITS | Encounter Summary ---
:1970 Author Organization [facility] Address [address] [place] [address] Care Team Providers Name Role Phone Ro [...] Emergency Medicine Diagnoses Swelling Face Darryl Blackman, [facility] MORGAN, C.N.P. [address] [place] [address] Referral ID Status Reason Start Date Expiration Date Visits Requ ested Visits Authorized [id number] Closed 06/26/2021 06/26/2022 1 1 Encounter Details Date Type Department Care Team Description 07/23/2021 Office Visit Department of [facility] Ro Norton, Christianson Estrogen Post Menopausal (Primary Dx); Medicine, Law MORA, C.N.P., Swelling F tramaine; [facility], in D.N.P. Screening Examination Diabetes Mellitus; [place] [address] Discharge V aginal; [facility] Screening For Venereal Disease; [address] [place] [address] Pap Smear Examination; [place] [address] Chronic Obstructive Pulmonary Disease Wi thout Exacerbation ([facility]); [phone] Tobacco Use; Other Secondary Pulmonary Hypertension ( HCC); [phone] Hepatitis C (Fax) Social History Tobacco Use [...] do you attend rastafarian or Never 2021 congregational services? Do you [...] been staying between her children's homes couch SIPXing. She reports however that her daughter recently [...] Appointment Radiology Ro Norton APRN, C.N.P., D.N.P. [address] [phone] (Amanda goldman) 01/27/2022 Clinical Support Integrative Medicine Haris, Iv y [address] [place] [phone] (Amanda goldman) documented as of this encounter Procedures Procedure [...] an increased risk for developing diabetes m ellitus. In diabetic patients, HbA1c goals should be discussed with healthcare provider. Specimen Anatomical Collection Method Collection Time Receive d Time (Source) Location / / Volume Laterality Blood (Blood, 07/23/2021 8:56 AM 07/24/19 22 9:00 Venous) CDT AM CDT Ninoska Borden APRNN.Kirsty, D.N.P. LAB BLOOD ADD-ON Performing Organization Address City/[facility] Phon e Number [place] [address] [place] [address] [facility] [place] [address] System [address] HIV-1/-2 Ag and Ab Screen, Plasma [...] 07/24/19 22 2:37 Venous) CDT PM CDT Bolivar Borden APRN.N.PRaffy, D.N.P. LAB MICROBIOLOGY - BLOOD ORDERABLES Performing Organization Address City/State/ZIP Code Phon e Number [address] [phone] [facility] [place] [address] [address] (ABNORMAL) HBc Total Ab, Serum (07/23/2021 [...] MICROBIOLOGY - BLOOD ORDERABLES Performing Organization Address [facility] Phon e Number [address] [phone] [facility] [place] [address] System [address] HBs Antibody, Serum (07/23/2021 8:56 AM [...] 07/24/19 22 9:04 Venous) CDT PM CDT Ro Norton APRN, C.N.PRaffy, D.N.P. LAB MICROBIOLOGY - BLOOD ORDERABLES Performing Organization Address [facility] Phon e Number [address] [place], [place] [address] [facility] [place] [address] System in [address] (ABNORMAL) HCV Ab w/Reflex to HCV PCR, Serum (07/23/2021 8:56 AM CDT) Patholo gist Method Time Signature HCV Ab Reactive (A) [...] Laterality Blood (Blood, 07/23/2021 8:56 AM 07/24/19 9:04 Venous) CDT PM CDT Narrative [facility] - 07/24/2021 1:50 AM CDT Specimen Information: Specimen ID: [id number] Specimen Type: Blood Specimen Collection Start Date: 2 ??8:56 AM Specimen Received Date: 07/23/2021 ??9:04 PM Specimen ID: [id number] Specimen Type: Blood Specimen Collection Start Date: 2 ??8:56 AM Specimen Received Date: 07/23/2021 ??9:05 PM Ro Norton APRN, C.N.P., D.N.P. LAB MICROBIOLOGY - BLOOD ORDERABLES Performing Organization Address City/State/ZIP Code Phon e Number [address] [address] [facility] [place] [address] System in [address] Hepatitis A IgM Ab, Serum (07/23/2021 8:56 AM CDT) P athologist Signature Hepatitis A Negative Negative 07/24/2021 ECLR IgM Ab, S 1:49 AM CDT Comment: [...] 07/24/19 22 9:05 Venous) CDT PM CDT Ro Norton APRN C.N.P., D.N.P. LAB MICROBIOLOGY - BLOOD ORDERABLES Performing Organization Address [facility] Phon e Number [address] [place] [address] [place] [address] System [address] Hepatitis B Core IgM Ab (07/23/2021 8:56 AM CDT) [facility] Method Time Signature HBc IgM Ab, [...] MICROBIOLOGY - BLOOD ORDERABLES Performing Organization Address [facility] Phon e Number [address] [address] [facility] [place] [address] System in [address] HBs Antigen Scrn, S (07/23/2021 8:56 AM CDT) [facility] Method Time Signature HBs Antigen Nonreactive Nonreactive 07/24/2021 ECLR Scrn, S 1:49 AM CDT Specimen Anatomical Collection Method Collection Time Receive d Time (Source) Location / / Volume Laterality Blood (Blood, 07/23/2021 8:56 AM 07/24/19 22 9:04 Venous) CDT PM CDT Ro Norton APRN, C.N.P., D.N.P. LAB MICROBIOLOGY - BLOOD ORDERABLES Performing Organization Address City/State/ZIP Code Phon e Number [facility]- [address] [place] [address] [facility] [place] [address] (ABNORMAL) CBC without Differential (07/23/2021 8:56 AM CDT) [facility] Method Time Signature Hemoglobin 17.7 (H) 11.6 [...] Blood (Blood, 07/23/2021 8:56 AM 07/24/19 22 9:01 Venous) CDT AM CDT Ro Norton APRN, C.N.P., MileNRaffyPRaffy LAB BLOOD ADD-ON Performing Organization Address City/State/ZIP Code Phon e Number [facility]- [address] [place] [address] [facility] [address] System [address] (ABNORMAL) Comprehensive Metabolic Panel (07/23/2021 8:56 [...] CDT eGFR-Black/Afric >90 >=60 07/23/2021 CNFL an Panamanian mL/min/BSA 9:34 AM CDT Comment: ----ADDITIONAL INFORMATION---- [...] 1.0 <=1.2 mg/dL 07/23/2021 9:34 AM CDT CNFL Specimen Anatomical Collection Method Collection Time Receive d Time (Source) Location / / Volume Laterality Blood (Blood, 07/23/2021 8:56 AM 07/24/19 9:01 Venous) CDT AM CDT Ro Norton APRN C.N.P., D.N.P. LAB BLOOD ADD-ON Performing Organization Address City/[facility] Phon e Number [address] [address] [facility] [address] [address] HPV with Genotyping, PCR, ThinPrep (07/23/2021 8:24 AM CDT) athologist Signature HPV with Negative Negative 07/26/2021 ECLR Genotyping, [...] CDT 12:56 PM CDT Ro Norton APRN, C.N.P., D.N.P. LAB MICROBIOLOGY - GENERAL ORDERABLES Performing Organization Address City/[facility]/ZIP Code Phon e Number [facility]- [address] [place] [address] [place] [address] [place] [address] [address] ThinPrep w/HPV Co-Test Screen (07/23/2021 8:24 AM CDT) Component Value Ref Test Analysis Performed Pathologis t Range Method Time At Signature 07/29/2021 ECLR 1:02 PM CDT Report COLT Burrows(ASCP) 07/29/2021 ECLR electronically 1:02 PM signed by CDT I verify that I have examined all relevant slides/materials for the specimen(s) and rendered or confirmed the diagnosis. Gross Description Received specimen 07/29/2021 ECL R in a ThinPrep 1:02 PM vial. CDT Pap Test Source Cervical/Endocervi 07/29/2021 ECLR lidya 1:02 PM CDT Clinical History \[id number]\ 07/29/2021 ECLR 1:02 PM CDT Interpretation Cervical/Endocervical [...] an attachment that is no t available. Bolivar Borden APRN.N.P., D.N.P. LAB PAP PATHDX OR DERABLES Performing Organization Address City/State/ZIP Code Phon e Number [facility]- [address] [place] [address] [facility] [place] [address] Chlamydia / Gonorrhoeae Amplified RNA (07/23/2021 8:24 AM CDT) Patholo gist Method Time Signature Source Swab, Vagina [...] 8:24 AM 2021 2:36 CDT PM CDT Bolivar Borden APRN.N.P., D.N.P. LAB MICROBIOLOGY - GENERAL ORDERABLES Performing Organization Address [facility] Phon e Number [address] [address] [facility] [place] [address] System [address] (ABNORMAL) Vaginitis Panel (07/23/2021 8:24 AM [...] AM 07/24/19 22 9:20 CDT AM CDT Bolivar Borden APRN.N.P., D.N.P. LAB MICROBIOLOGY - GENERAL ORDERABLES Performing Organization Address City/[facility] Phon e Number [address] [address] [facility] [address] System in [address] documented in this encounter Visit Diagnoses Diagnosis Deficiency Estrogen Post Menopausal - Pr imary Swelling Face Screening Examination Diabetes Mellitus Discharge Vaginal Screening For Venereal Disease Pap Smear Examination Chronic Obstructive Pulmonary Disease Wi thout Exacerbation (HCC) Tobacco Use Other Secondary Pulmonary Hypertension ( HCC) Hepatitis C documented in this encounter Care Teams Inspector Plumbing Relationship Specialty Start Date End Date Ro Norton APRN, C.N.P., PCP - General Family Medicine D.N.P. [address] [phone] documented as of this encounter
--- OUTSIDE RECORDS SUMMARY | 2022-01-11 00:16 | XMS_ITS | Encounter Summary ---
:1970 Author Organization [facility] Address [address] [place] [address] Care Team Providers Name Role Phone Ro Norton APRN C.N.P., D.N.P. Primary Care Provider Encounter Details Date Type Department Care Team Description 05/14/2021 Orders Only Division of Pulmonary Archana Mcmillan M.D. Medicine in [place], [facility] [address] [place], [place] [address] [facility] [address] [place] [address] [phone] Social History Tobacco Use Types Packs/Day Years [...] do you attend quaker or Never 2021 confucianism services? Do you [...] Appointment Radiology Ro Norton APRN, C.N.P., D.N.P. [address] [phone] (Wo rk) 01/27/2022 Clinical Support Integrative Medicine Haris, Sohan y [address] [place], [place] [phone] (Wo rk) documented as of this encounter Visit Diagnoses Not on filedocumented in this encounter Care Teams Power Wood Sawyer Relationship Specialty Start Date End Date Ro Norton APRN, C.N.P., PCP - General Family Medicine D.N.P. [address] [phone] documented as of this encounter
--- OUTSIDE RECORDS SUMMARY | 2022-01-11 00:16 | XMS_ITS | Encounter Summary ---
:1970 Author Organization [facility] Address [address] [place] [address] Care Team Providers Name Role Phone Ro Norton APRN C.N.P., D.N.P. Primary Care Provider Reason for Visit Reason Comments Flank Pain Encounter Details Date Type Department Care Team Description 05/04/2021 Emergency [place] [facility] [place], Derrell Seaman lonephritis Acute (Primary Dx); Department M.D. Pyelonephritis Acute [address] NATHANIEL [place], [place] [phone] (Wo rk) Social History Tobacco Use [...] do you attend islam or Never 2021 yazidism services? Do you [...] be sent through Care Everywhere. Pyelonephritis Adult Hozr-zr-Mpsg (Mongolian)documented in this encounter Medications at Time of [...] Pyelonephritis Acute Pyelonephritis Acute Natasha Traylor M.D. 05/04/211802 Kelli Sewell R.N. - 05/04/2021 3:30 PM CDT Pt states that she had a uti last week. Pt has taken her antibiotics but feels like the infection isback. Pt has pain in left flank. Kelli Sewell R.N. 05/04/21 1530 documented in this encounter Miscellaneous Notes Result Encounter Note - Lorenzo Ramirez M.D. - 05/06/2021 7:49 AM CDT omnicef Lorenzo Ramirez M.D. 05/06/21 0749 documented in this encounter Plan of Treatment Upcoming Encounters Date Type Specialty Care Team Description 01/14/2022 Appointment Radiology oR Norton APRN, C.N.P., D.N.P. [address] [phone] (Amanda goldman) 01/27/2022 Clinical Support Integrative Medicine Sohan Carballo y [address] [place], [place] [phone] (Wo rk) documented as [...] spondylosis. Otherwise negative. vRad: ??Findings concordant with prelimi luciana vRad report. Procedure Note Pj Quijano [...] CT PROCEDURES Lactate (05/04/2021 4:32 PM CDT) P athologist Signature Lactate, P 1.3 0.5 - 2.2 05/04/2021 [facility] mmol/L 5:07 PM CDT Specimen Anatomical Collection Method Collection Time Receive d Time (Source) Location / / Volume Laterality Blood (Blood, 05/04/2021 4:32 PM 05/05/19 22 4:38 Venous) CDT PM CDT Natasha Traylor M.D. LAB BLOOD NON ADD-ON Performing Organization Address City/State/ZIP Code Phon e Number [facility] [address] [place], [place] [address] [facility] [place] [address] System in [place] [address] (ABNORMAL) Comprehensive Metabolic Panel (05/04/2021 4:32 PM CDT) P athologist Signature Potassium, P 4.7 3.6 - [...] CDT eGFR-Black/Afri >90 >=60 05/04/2021 [facility] can Algerian mL/min/BSA 5:10 PM CDT Comment: ----ADDITIONAL INFORMATION---- [...] Address City/State/ZIP Code Phon e Number [facility]- [address] [place], [place] [address] [facility] [place] [address] System in [place] 701 [facility] (ABNORMAL) CBC with Differential, Blood (05/04/2021 4:32 PM CDT) [facility] gist Method Time Signature Hemoglobin 15.9 (H) [...] Laterality Blood (Blood, 05/04/2021 4:32 PM 05/05/19 22 4:38 Venous) CDT PM CDT Natasha Traylor M.D. LAB BLOOD ADD-ON Performing Organization Address City/State/ZIP Code Phon e Number [facility]- [address] [place] [address] [facility] [place] [address] System in [place] 701 [facility] (ABNORMAL) Bacterial Culture, Aerobic + Susc, Urine (05/04/2021 4:14 PM CDT) [facility] Method Time Signature Urine Culture ESCHERICHIA COLI 05/06/2021 ECLR >100,000 cfu/mL 7:44 AM CDT (A) Specimen Anatomical Collection Method Collection Time Receive d Time (Source) Location / / Volume Laterality Urine (Urine, 05/04/2021 4:14 PM 05/05/19 22 9:24 Midstream) CDT PM CDT Comment: Specimen [...] Address City/State/ZIP Code Phon e Number [facility]- [address] [place] [address] [facility] [place] [address] System [address] (ABNORMAL) Urinalysis with Microscopic: Urine, Midstream (05/04/2021 4:14 PM CDT) athologist Signature Source Midstream 05/04/2021 RDWG 4:41 PM CDT Clarity Cloudy (A) Clear 05/04/2021 RDW[facility] 4:41 PM CDT Color [place] (A) 05/04/2021 R[facility] 4:41 PM CDT Comment: [...] determine due to colo r interference Specific [place] SEE COMMENT 1.001 - 1.035 05/04/2021 4:41 [...] Laterality Urine (Urine, 05/04/2021 4:14 PM 05/05/19 4:17 Midstream) CDT PM CDT Natasha Traylor M.D. LAB URINE ORDERABLES Performing Organization Address City/State/ZIP Code Phon e Number [facility]- [address] [place], [place] [address] [facility] [place] [address] System in [place] [address] documented in this encounter Visit Diagnoses [...] 15 mg 15 mg, intravenous, Once, On Mon05/04/21 at 1602, For 1 dose, Adult IV [...] 4 mg 4 mg, intravenous, Once, On e 05/04/21 at 1602, For 1 dose documented in this encounter Active and Recently Administered Medications Due to Daylight Saving Time, this section may contain times in both EDI DEVELOPER and CDT. Scheduled Medication Order 05/02/2021 05/03/2021 05/04/2021 cefTRIAXone in dextrose (iso-osm) IVPB 1 g (ROCEPHIN) (COMPLETED ) 1700 (New Bag - Provider: Amparo Johnson R.N.)1715 (Stopped - Provider: Amparo Johnson R.N.) 1 g, intravenous, at 200 mL/hr, Administ er over 15 Minutes, Once, On e 05/04/21 at 1649, For 1 dose, Drug Monitoring Program: Pharmacist to adjust medication dosing based on indication and drug clearance factors., Indications: pyelo ketorolac injection 15 mg (TORADOL) (COMPLETED) 1647 (Given - Provider: Amparo Johnson R.N.) 15 mg, intravenous, Once, On e 05/04/21 at 1602, For 1 dose, Adult IV push rate: Over 15 seconds. Peds IV push rate: Over 1 minute. 60 mg dose only for IM, not recommended for IV. NaCl 0.9 % bolus 1,000 mL (COMPLETED) 1644 (New Bag - Provider: Amparo Johnson R.N.)1800 (Stopped - Provider: Amparo Johnson R.N.) 1,000 mL, intravenous, at 1,000 mL/hr, A dminister over 1 Hours, Once, On Mon05/04/21 at 1602, For 1 dose ondansetron (PF) injection 4 mg (ZOFRAN) (COMPLETED) 1646 (Given - Provider: Amparo Johnson R.N.) 4 mg, intravenous, Once, On e 05/04/21 at 1602, For 1 dose documented in this encounter Care Teams Logging Superintendent Relationship Specialty Start Date End Date Ro Norton APRN, C.N.P., PCP - General Family Medicine D.N.P. [address] [phone] documented as of this encounter
--- OUTSIDE RECORDS SUMMARY | 2022-01-11 00:16 | XMS_ITS | Encounter Summary ---
:1970 Author Organization [facility] Address [address] [place] [address] Care Team Providers Name Role Phone Ro Norton APRN, C.N.PRaffy, D.N.P. Primary Care Provider Reason for Referral Outpatient (Routine) - Closed Specialty Diagnoses / Procedures Referred By Contact Refer red To Contact Emergency Medicine Diagnoses Swelling Face Darryl Blackman, [facility] MORGAN, C.N.P. [address] [place] [address] Referral ID Status Reason Start Date Expiration Date Visits Requ ested Visits Authorized [id number] Closed 06/26/2021 06/26/2022 1 1 Reason for Visit Reason Comments Facial Swelling Ongoing facial swelling for about two weeks. No difficulty with breathing. Encounter Details Date Type Department Care Team Description 06/26/2021 Emergency [place] [facility] Darryl Blackman , Swelling Face (Primary Dx); Department MORGAN, C.N.P. Allergy Unspecified Initial [address] [place] [address] [place] [phone] (Wo rk) Social History Tobacco Use [...] do you attend voodoo or Never 2021 anglican services? Do you [...] be sent through Care Everywhere. Allergies Adult Zjht-eb-Hwjj (Faroese)documented in this encounter Medications at Time of [...] Take 1 tablet (10 10 tablet 0 08/2021 mg tablet mg total) by mouth [...] waned but she has been living in [place] and did not want to see a provider there. She is back in town to see her manager android and primary care provider locally. Overall I [...] eyes and cheeks Allergy Unspecified Initial Darryl Blackman APRN, C.N.P. 06/26/21 1249 documented in this encounter Plan of Treatment Upcoming Encounters Date Type Specialty Care Team Description 01/14/2022 Appointment Radiology Ro Norton APRN, C.N.P., D.N.P. [address] [phone] (Wo rk) 01/27/2022 Clinical Support Integrative Medicine Haris, Iv y [address] [place], [place] [phone] (Amanda rk) Scheduled Referrals Name Type Priority Associated Diagnoses Order S chedule POST ED VISIT Outpatient Referral Routine Swelling Face Expect ed: Family Medicine 06/29/2021, Expires: 09/26/2022 documented as of this encounter Visit Diagnoses Diagnosis Swelling Face - Primary Allergy Unspecified Initial documented in this encounter Care Teams Acetone Button Paster Relationship Specialty Start Date End Date Ro Norton APRN, C.N.P., PCP - General Family Medicine D.N.P. [address] [phone] documented as of this encounter
--- OUTSIDE RECORDS SUMMARY | 2022-01-11 00:16 | XMS_ITS | Encounter Summary ---
:1970 Author Organization [facility] Address [address] [place] [address] Care Team Providers Name Role Phone Ro Norton APRN C.N.P., D.N.P. Primary Care Provider Encounter Details Date Type Department Care Team Description 06/22/2021 Orders Only [facility] PCP [facility] Sa rosalinda Erickson M.D. Screening Lipid [address] [place] [phone] (Wo rk) Social History Tobacco Use Types [...] Appointment Radiology Ro Norton APRN, C.N.P., D.N.P. [address] [phone] (Wo rk) 01/27/2022 Clinical Support Integrative Medicine Haris, Iv y [address] [place], [place] [phone] (Wo rk) documented as of this encounter Results Lipid Panel [...] Organization Address City/State/ZIP Code Phon e Number [facility]- [address] [place] [address] [place] [address] System in [address] documented in this encounter Visit Diagnoses Diagnosis Screening Lipid documented in this encounter Care Teams Stoker Erector And Servicer Relationship Specialty Start Date End Date Ro Norton APRN, C.N.P., PCP - General Family Medicine D.N.P. [address] [place] [phone] documented as of this encounter
--- OUTSIDE RECORDS SUMMARY | 2022-01-11 00:16 | XMS_ITS | Encounter Summary ---
:1970 Author Organization [facility] Address [address] [place] [address] Care Team Providers Name Role Phone Ro Norton APRN C.N.PRaffy, D.N.P. Primary Care Provider Reason for Referral Medication Prior Authorization - Closed Specialty Diagnoses / Procedures Referred By Contact Refer red To Contact Diagnoses Hypertension Pulmonary Primary (HCC) Lubna Mcmillan M.D. [address] [place] [address] Referral ID Status Reason Start Date Expiration Date Visits Requ ested Visits Authorized [id number] Closed [address] FRAMER Encounter Details Date Type Department Care Team Description 04/27/2021 Orders Only RST CCM Lubna Mcmillan Hypertension Pulmonary 200 [facility] Michael Ansari Primary (HCC) [place], [place] 200 [facility] [address] [place] [address] Social History Tobacco Use Types Packs/Day Years [...] do you attend sabianism or Never 2021 sabianism services? Do you belong to any clubs or No 02/25/2021 organizations such as sabianism groups, unions, fraShout For Good or athletic groups, or school groups? How [...] Appointment Radiology Ro Norton APRN, C.N.P., D.N.P. [address] [phone] (Amanda goldman) 01/27/2022 Clinical Support Integrative Medicine Haris, Sohan y [address] [place], [place] [phone] (Amanda goldman) documented as of this encounter Visit Diagnoses Diagnosis Hypertension Pulmonary Primary (HCC) documented in this encounter Care Teams Plant Operator/Shift Supervisor Relationship Specialty Start Date End Date Ro Norton APRN, C.N.P., PCP - General Family Medicine D.N.P. [address] [phone] documented as of this encounter
--- OUTSIDE RECORDS SUMMARY | 2022-01-11 00:16 | XMS_ITS | Encounter Summary ---
:1970 Author Organization [facility] Address [address] [place] [address] Care Team Providers Name Role Phone Ro Norton APRN, C.N.P., D.N.P. Primary Care Provider Encounter Details Date Type Department Care Team Description 07/09/2021 Orders Only Pharmacy Prior Auth RO Lyssa Alfred [phone] Social History Tobacco Use Types Packs/Day Years [...] do you attend uatsdin or Never 2021 restoration services? Do you [...] Appointment Radiology Ro Norton APRN, C.N.P., D.N.P. [address] [phone] (Wo rk) 01/27/2022 Clinical Support Integrative Medicine Haris, Iv y [address] [place], [place] [phone] (Wo rk) documented as of this encounter Visit Diagnoses Not on filedocumented in this encounter Care Teams Department Chairperson Relationship Specialty Start Date End Date Ro Norton APRN, C.N.P., PCP - General Family Medicine D.N.P. [address] [phone] documented as of this encounter
--- OUTSIDE RECORDS SUMMARY | 2022-01-11 00:16 | XMS_ITS | Encounter Summary ---
:1970 Author Organization [facility] Address [address] [place] [address] Care Team Providers Name Role Phone Ro Norton APRN C.N.P., D.N.P. Primary Care Provider Reason for Visit Reason Comments Vaginal Discharge Encounter Details Date Type Department Care Team Description 07/17/2021 Telemedicine [facility] Express Sangeetha España Vaginal Care at [facility] in [place] P.A.-C. (Primary Dx) Bryon [place] [phone] [facility] [place] [phone] Social History Tobacco Use Types Packs/Day Years [...] do you attend baptist or Never 2021 anabaptist services? Do you [...] real-time audio/video technology by Yecenia España P.A.-C., [facility] on 07/17/2021. SUBJECTIVE CHIEF COMPLAINT/REASON FOR VISIT Dixie Discharge Allison is a 50 y.o. female who requested evaluation of Vaginal discharge. A video visit was conducted this morning with the patient from the [facility] in [place], [place]. The patient states for 2 days [...] go into her local clinic for a mrqd-dm-elka visit and evaluation. I also told the patient she could purchase an gnyn-abk-ijaxhjx topical anti-yeast cream and apply this externally for some relief of her pruritus. She is to try to keep the vaginal area clean and drywith good air circulation; I therefore recommended loose fitting clothing. Patient voices understanding and is in agreement of plan. @[email or web address]@ Consult conducted via real-time audio/video technology by Yecenia España P.A.-C. [facility] Patient's Home Consult conducted via real-time video technology by Charleen Blanca [facility] [place] the patient Allison Schulz on 07/17/2021. I personally spent a total of 10 minutes in fhq-knez-fj-face video encounter performing a review of the record and/or discussion with the patient/caregiver as described above. The majority of the time was spent in the counseling and coordination of care. Yecenia España P.A.-C. documented in this encounter Plan of Treatment Upcoming Encounters Date Type Specialty Care Team Description 01/14/2022 Appointment Radiology Ro Norton APRN, C.N.P., D.N.P. [address] [phone] (Wo rk) 01/27/2022 Clinical Support Integrative Medicine Haris, Iv y [address] [place], [place] [phone] (Wo rk) documented as of this encounter Visit Diagnoses Diagnosis Discharge Vaginal - Primary documented in this encounter Care Teams Roll Clamp Operator Relationship Specialty Start Date End Date Ro Norton APRN, C.N.P., PCP - General Family Medicine D.N.P. [address] [phone] documented as of this encounter
--- OUTSIDE RECORDS SUMMARY | 2022-01-11 00:16 | XMS_ITS | Encounter Summary ---
:1970 Author Organization [facility] Address [address] [place] [address] Care Team Providers Name Role Phone Ro Norton APRN, C.N.P., D.N.P. Primary Care Provider Reason for Visit Reason Comments Rx Prior Authorization [place] DENIED SILDENAFIL 20 MG T AB Encounter Details Date Type Department Care Team Description 06/08/2021 Clinical Communication Pharmacy Prior Auth Robert Mccarty Rx Prior RO [phone] Authorization ([place] DENIED SILDENAF [place] 20 MG [...] do you attend spiritism or Never 2021 voodoo services? Do you belong to any clubs [...] R.N. - 06/08/2021 2:38 PM CDT Her [facility] [employer] insurance terminated 04/19/2021. That is the reason behind the denial. Her cell phone is out of service. I called her home phone. She confirmed she has [employer] insurance.She did not have the letter on her with the phone number for [employer] at the time of my call. She indicates she has not received a card yet with an ID number. On 04/27/2021 the sildenafil was filled [facility]. The [facility] in [place] indicates they transferred the prescription to the [facility] - . The [place] pharmacy indicates her [place] Medicaid numberis [id number]. I called [place] Medicaid at [phone] and they indicated we should call [facility]. Trevor wait for Allison to call back with the [facility] number. Telephone Encounter - Robert Mccarty - [...] Appointment Radiology Ro Norton APRN, C.N.P., D.N.P. [address] [phone] (Amanda goldman) 01/27/2022 Clinical Support Integrative Medicine Haris, Iv y [address] [place], [place] [phone] (Amanda goldman) documented as of this encounter Visit Diagnoses Not on filedocumented in this encounter Care Teams Sole Tacker Relationship Specialty Start Date End Date Ro Norton APRN, C.N.P., PCP - General Family Medicine D.N.P. [address] [phone] documented as of this encounter
--- OUTSIDE RECORDS SUMMARY | 2022-01-11 00:16 | XMS_ITS | Encounter Summary ---
:1970 Author Organization [facility] Address [address] [place] [address] Care Team Providers Name Role Phone Ro Norton APRN C.N.P., D.N.P. Primary Care Provider Encounter Details Date Type Department Care Team Description 06/28/2021 Orders Only Division of Pulmonary Archana Mcmillan M.D. Medicine in [place], [facility] [address] [place], [place] [address] [facility] [phone] [place] [address] [phone] Social History Tobacco Use Types Packs/Day Years [...] do you attend adventist or Never 2021 faith services? Do you [...] Appointment Radiology Ro Norton APRN, C.N.P., D.N.P. [address] [phone] (Wo rk) 01/27/2022 Clinical Support Integrative Medicine Haris, Iv y [address] [place], [place] [phone] (Wo rk) documented as of this encounter Visit Diagnoses Not on filedocumented in this encounter Care Teams Aircraft Pilot Relationship Specialty Start Date End Date Ro Norton APRN, C.N.P., PCP - General Family Medicine D.N.P. [address] [phone] documented as of this encounter
--- OUTSIDE RECORDS SUMMARY | 2022-01-11 00:16 | XMS_ITS | Encounter Summary ---
:1970 Author Organization [facility] Address [address] [place] [address] Care Team Providers Name Role Phone Ro Norton APRN, C.N.Kirsty, D.N.P. Primary Care Provider Encounter Details Date Type Department Care Team Description 04/22/2021 E-Visit [facility] Express Paige Cooley, Shrutir ess Care Online for Care at the [place] MORGAN, C.N.P., Bladder In fection Building on the D.N.P. (female anatomy, age Floor [address] [place] [address] 12-65 years) [address] [place] [phone] Social History Tobacco Use Types Packs/Day Years [...] do you attend jain or Never 2021 zoroastrianism services? Do you [...] Appointment Radiology Ro Norton APRN, C.N.P., D.N.P. [address] [phone] (Amanda goldman) 01/27/2022 Clinical Support Integrative Medicine Haris, Iv y [address] [place], [place] [phone] (Amanda goldman) documented as of this encounter Visit Diagnoses Diagnosis Symptom Urinary - Primary documented in this encounter Care Teams Sausage Machine Operator Relationship Specialty Start Date End Date Ro Norton APRN, C.N.P., PCP - General Family Medicine D.N.P. [address] [phone] documented as of this encounter
--- OUTSIDE RECORDS SUMMARY | 2022-01-11 00:16 | XMS_ITS | Encounter Summary ---
:1970 Author Organization [facility] Address [address] [place] [address] Care Team Providers Name Role Phone Ro Norton APRN C.N.Kirsty, D.N.P. Primary Care Provider Encounter Details Date Type Department Care Team Description 06/13/2021 E-Visit [facility] Express SmaEdith clarke, Expr ess Care Online for Care at the [place] MORGAN, C.N.P., Sinus Symp toms Building on the 4th M.S.N. (sinusitis) Floor [address] [place] [address] [address] [place] [phone] [phone] Social History Tobacco Use Types Packs/Day Years [...] do you attend catholic or Never 2021 spiritism services? Do you belong to any clubs [...] Appointment Radiology Ro Norton APRN, C.N.P., D.N.P. [address] [phone] (Amanda goldman) 01/27/2022 Clinical Support Integrative Medicine Haris, Iv y [address] [place], [place] [phone] (Amanda goldman) documented as of this encounter Visit Diagnoses Diagnosis Infection Upper Respiratory - Primary documented in this encounter Care Teams Pipe Straightener Relationship Specialty Start Date End Date Ro Norton APRN, C.N.P., PCP - General Family Medicine D.N.P. [address] [phone] documented as of this encounter
--- OUTSIDE RECORDS SUMMARY | 2022-01-11 00:16 | XMS_ITS | Encounter Summary ---
:1970 Author Organization [facility] Address [address] [place] [address] Care Team Providers Name Role Phone Ro Norton APRN, C.N.P., D.N.P. Primary Care Provider Encounter Details Date Type Department Care Team Description 05/17/2021 Orders Only Pharmacy Prior Auth RO Miles Jolley [phone] Social History Tobacco Use Types Packs/Day Years [...] do you attend congregational or Never 2021 restorationism services? Do you [...] Appointment Radiology Ro Norton APRN, C.N.P., D.N.P. [address] [phone] (Wo rk) 01/27/2022 Clinical Support Integrative Medicine Haris, Iv y [address] [place], [place] [phone] (Wo rk) documented as of this encounter Visit Diagnoses Not on filedocumented in this encounter Care Teams Systems Architect Relationship Specialty Start Date End Date Ro Norton APRN, C.N.P., PCP - General Family Medicine D.N.P. [address] [phone] documented as of this encounter
--- OUTSIDE RECORDS SUMMARY | 2022-01-11 00:17 | XMS_ITS | Encounter Summary ---
:1970 Author Organization [facility] Address [address] [place] [address] Care Team Providers Name Role Phone Ro Norton APRN C.N.PRaffy, D.N.P. Primary Care Provider Reason for Referral Outpatient (Routine) - Authorized Specialty Diagnoses / Procedures Referred By Contact Francine mitchell To Contact Orthopedic Surgery Yolie Leigh [facility] P.A.-C. [address] [place] [address] Referral ID Status Reason Start Date Expiration Date Visits V isits Requested Authorized [id number] Authorized 04/21/2021 04/21/2022 1 1 TORIAL MANAGER Outpatient (Routine) - Closed Specialty Diagnoses / Procedures Referred By Contact Francine mitchell To Contact Diagnoses Pain Wrist Right Yolie Leigh [facility] Procedures DX Wrist Right 3+ Views P.A.-C. [address] [place] [phone] Referral ID Status Reason Start Date Expiration Date Visits Requ ested Visits Authorized [id number] Closed 04/21/2021 04/21/2022 1 1 TORIAL MANAGER Reason for Visit Appointment Request (Routine) - Closed Specialty Diagnoses / Procedures Referred By Contact Refer red To Contact Family Medicine Referral ID Status Reason Start Date Expiration Date Visits Requ ested Visits Authorized [id number] Closed 04/06/2021 04/06/2022 1 1 Encounter Details Date Type Department Care Team Description 04/21/2021 Comprehensive Visit Department of [place] Leigh ist Right Orthopedic Surgery Yolie Cabrera (Primary Dx) [place] [address] [phone] Social History Tobacco Use Types Packs/Day [...] do you attend sikh or Never 2021 sabianist services? Do you [...] the ice fracturing her wrist, presented to [facility] on 04/03/2021 and was placed in [...] trying to quit. 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 She is currently not working. She has a son who goes to [place] and plays baseball and she has2 daughters, [...] Yolie Leigh P.A.-C. CT CT Job ID: [id number]/[facility] TORIAL MANAGER documented in this encounter Plan of Treatment Upcoming Encounters Date Type Specialty Care Team Description 01/14/2022 Appointment Radiology Ro Norton APRN, C.N.P., D.N.P. [address] [phone] (Wo rk) 01/27/2022 Clinical Support Integrative Medicine Haris, Iv y [address] [place] [phone] (Wo rk) Scheduled Referrals Name Type Priority Associated Order Schedule Diagnoses Orthopedic Surgery Outpatient Referral Routine Ex pected: office visit 05/12/2021 (clinic) (Approximate), Expires: 07/22/2022 documented as of this encounter Results DX Wrist Right 3+ Views (04/21/2021 10:35 AM JANITORIAL MANAGER) Anatomical Region Laterality Modality Upper Extremity, Wrist, Musculoskeletal RST LOS, Right Digital Radiography Musculoskeletal ARZ LOS, Muskuloskeletal FLA LOS Specimen (Source) Anatomical Collection Method Collection Time Re ceived Time Location / / Volume Laterality 04/21/2021 10:51 AM JANITORIAL MANAGER Impressions 04/21/2021 10:54 AM JANITORIAL MANAGER Impacted moderately comminuted, minimally displaced intra-articular fracture [...] variance. Remainder negative. Narrative 04/21/2021 10:54 AM JANITORIAL MANAGER EXAM: ??DX WRIST RIGHT 3+ VIEWS Procedure [...] Right documented in this encounter Care Teams Charge Master Analyst Relationship Specialty Start Date End Date Ro Norton APRN, C.N.P., PCP - General Family Medicine D.N.P. [address] [phone] documented as of this encounter
--- OUTSIDE RECORDS SUMMARY | 2022-01-11 00:17 | XMS_ITS | Encounter Summary ---
:1970 Author Organization [facility] Address [address] [place] [address] Care Team Providers Name Role Phone Ro Norton APRN C.N.PRaffy, D.N.P. Primary Care Provider Reason for Visit Reason Comments URI Encounter Details Date Type Department Care Team Description 02/25/2021 Telemedicine [facility] Nickie Zamora, Infe ction Upper Respiratory (Primary Dx); Care at [facility] MORGAN C.N.P., Chronic Obstructive Pulmonar y Disease Without Exacerbation (HCC) [address] TIMO Pace.N.P. [place], [place] [address] [facility] [address] [place], [place] [phone] Social History Tobacco Use Types Packs/Day Years [...] do you attend jain or Never 2021 evangelical services? Do you [...] by Nickie Zamora APRN, C.N.P., D.N.P. in [facility] to the patient's home. HISTORY OF PRESENT [...] #2 Chronic Obstructive Pulmonary Disease Without Exacerbation ([facility]) Informed patient that due to the chronicity of her problems coupled with a second acute illness in the past 3 months, she is better served by discussing her plan of care with a member of her primary care team. Patient states that she was unable to get a video visit in [place], therefore she chosethis express care option. Unfortunately [...] file for this visit. Patient has a [facility] online portal account, can view medication list electronically. ?? Ready to learn, no apparent learning barriers were identified; learning preferences include listening. Explained diagnosis and treatment plan; patient/child/caregiver expressed understanding of the content; and is in agreement with the plan above. I personally spent a total of 20 minutes in vpq-wooo-pw-face time performing a review of the record and/or discussion with the patient/caregiver as described above. TAMPING MACHINE OPERATOR documented in this encounter Plan of Treatment Upcoming Encounters Date Type Specialty Care Team Description 01/14/2022 Appointment Radiology Ro Norton APRN C.N.P., D.N.P. [address] [phone] (Wo rk) 01/27/2022 Clinical Support Integrative Medicine Haris, Iv y [address] [place], [place] [phone] (Wo rk) documented as of this encounter Visit Diagnoses Diagnosis Infection Upper Respiratory - Primary Chronic Obstructive Pulmonary Disease Wi thout Exacerbation (HCC) documented in this encounter Care Teams Product Marketing Programs Manager Relationship Specialty Start Date End Date Ro Norton APRN, C.N.P., PCP - General Family Medicine D.N.P. [address] [place] [phone] documented as of this encounter
--- OUTSIDE RECORDS SUMMARY | 2022-01-11 00:17 | XMS_ITS | Encounter Summary ---
:1970 Author Organization [facility] Address [address] [place] [address] Care Team Providers Name Role Phone Ro Norton APRN C.N.PRaffy, D.N.P. Primary Care Provider Encounter Details Date Type Department Care Team Description 03/31/2021 Orders Only [facility] Pamela Vallecillo APRN, [place] C.N.PRaffy, D.N.P. [address] [address] [place], [place] [phone] (Wo rk) Social History Tobacco Use [...] or relatives? How often do you attend taoist or Never 2021 denominational services? Do you belong to any clubs or No 02/25/2021 organizations such as taoist groups, unions, fraternal or athletic groups, or [...] Appointment Radiology Ro Norton APRN, C.N.P., D.N.P. [address] [phone] (Wo rk) 01/27/2022 Clinical Support Integrative Medicine Haris, Iv y [address] [place], [place] [phone] (Wo rk) documented as of this encounter Visit Diagnoses Not on filedocumented in this encounter Care Teams Publication Distributor Relationship Specialty Start Date End Date Ro Norton APRN, C.N.P., PCP - General Family Medicine D.N.P. [address] [phone] documented as of this encounter
--- OUTSIDE RECORDS SUMMARY | 2022-01-11 00:17 | XMS_ITS | Encounter Summary ---
:1970 Author Organization [facility] Address [address] [place] [address] Care Team Providers Name Role Phone Ro Norton APRN C.N.P., D.N.P. Primary Care Provider Reason for Visit Reason Comments Med Refill Encounter Details Date Type Department Care Team Description 01/28/2021 Refill Division of Pulmonary Medicine Lubna Cleary M.D. Med Refill in [facility] costa [address] [facility] [address] [place] [address] [place] [address] [phone] Social History Tobacco Use Types Packs/Day Years [...] or relatives? How often do you attend mandaen or Never 2021 sabianism services? Do you belong to any clubs or No 02/25/2021 organizations such as mandaen groups, unions, fraternal or athletic groups, or [...] mcg/dose Last Seen: 09/29/2020-Dr. Mcmillan-Virtual Visit Pharmacy: [facility] - [address]?? ERTY MANAGEMENT SUPERVISOR documented in this encounter Plan of Treatment Upcoming Encounters Date Type Specialty Care Team Description 01/14/2022 Appointment Radiology Ro Norton APRN, C.N.P., D.N.P. [address] [place] [phone] (Amanda goldman) 01/27/2022 Clinical Support Integrative Medicine Sohan Carballo y [address] [place], [place] [phone] (Amanda goldman) documented as of this encounter Visit Diagnoses Not on filedocumented in this encounter Care Teams Regrader Relationship Specialty Start Date End Date Ro Norton APRN, C.N.P., PCP - General Family Medicine D.N.P. [address] [phone] documented as of this encounter
--- OUTSIDE RECORDS SUMMARY | 2022-01-11 00:17 | XMS_ITS | Encounter Summary ---
:1970 Author Organization [facility] Address [address] [place] [address] Care Team Providers Name Role Phone Ro Norton APRN C.N.P., D.N.P. Primary Care Provider Reason for Visit Reason Comments Med Refill Encounter Details Date Type Department Care Team Description 03/31/2021 Clinical Communication [facility] Karine Coles Med Refill Cantil A, Pharm.D., [address] [place] [address] R.Ph. [place] [phone] [facility] [phone] [place] [phone] Social History Tobacco Use Types Packs/Day Years [...] do you attend temple or Never 2021 sabianism services? Do you [...] a refill of albuterol inhaler. Thank you, [facility] - [place] Y BAR MANAGER documented in this encounter Plan of Treatment Upcoming Encounters Date Type Specialty Care Team Description 01/14/2022 Appointment Radiology Ro Norton APRN, C.N.P., D.N.P. [address] [phone] (Wo rk) 01/27/2022 Clinical Support Integrative Medicine Sohan Carballo y [address] [place], [place] [phone] (Amanda rk) documented as of this encounter Visit Diagnoses Not on filedocumented in this encounter Care Teams File Machine Operator Relationship Specialty Start Date End Date Ro Norton APRN, C.N.P., PCP - General Family Medicine [place] [address] [phone] documented as of this encounter
--- OUTSIDE RECORDS SUMMARY | 2022-01-11 00:17 | XMS_ITS | Encounter Summary ---
:1970 Author Organization [facility] Address [address] [place] [address] Care Team Providers Name Role Phone Ro Norton APRN C.N.PRaffy, D.N.P. Primary Care Provider Encounter Details Date Type Department Care Team Description 03/09/2021 Orders Only [facility] Pamela Vallecillo APRN, [place] C.N.PRaffy, D.N.P. [address] [address] [place], [place] [phone] (Wo rk) Social History Tobacco Use [...] do you attend episcopalian or Never 2021 synagogue services? Do you [...] Appointment Radiology Ro Norton APRN, C.N.P., D.N.P. [address] [phone] (Wo rk) 01/27/2022 Clinical Support Integrative Medicine Haris, Iv y [address] [place], [place] [phone] (Wo rk) documented as of this encounter Visit Diagnoses Not on filedocumented in this encounter Care Teams Mill Tender Warm Up Relationship Specialty Start Date End Date Ro Norton APRN, C.N.P., PCP - General Family Medicine D.N.P. [address] [phone] documented as of this encounter
--- OUTSIDE RECORDS SUMMARY | 2022-01-11 00:17 | XMS_ITS | Encounter Summary ---
:1970 Author Organization [facility] Address [address] [place] [address] Care Team Providers Name Role Phone Ro Norton APRN C.N.P., D.N.P. Primary Care Provider Reason for Visit Reason Comments Care Coordination Encounter Details Date Type Department Care Team Description 01/21/2021 Patient Outreach Department of Miranda Phillips Care Compounding Technician rdination Cardiovascular Medicine R.N. in [facility] 200 [facility] [address] [place] [address] [phone] Social History Tobacco Use Types Packs/Day Years [...] do you attend jew or Never 2021 christian services? Do you [...] Appointment Radiology Ro Norton APRN, C.N.P., D.N.P. [address] [phone] (Wo rk) 01/27/2022 Clinical Support Integrative Medicine Haris, Sohan y [address] [place], [place] [phone] (Wo rk) documented as of this encounter Visit Diagnoses Not on filedocumented in this encounter Care Teams Fisheries Technician Relationship Specialty Start Date End Date Ro Norton APRN, C.N.P., PCP - General Family Medicine D.N.P. [address] [phone] documented as of this encounter
--- OUTSIDE RECORDS SUMMARY | 2022-01-11 00:17 | XMS_ITS | Encounter Summary ---
:1970 Author Organization [facility] Address [address] [place] [address] Care Team Providers Name Role Phone Lonny Norton APRN C.N.P., D.N.P. Primary Care Provider Reason for Visit Reason Comments Medication Question Encounter Details Date Type Department Care Team Description 02/01/2021 Clinical Communication [facility] Olivia Coles ation Question Pharmacy Gamaliel Ratliff Pharm.D., [address] [place] [address]. [address] [address] [facility] [phone] [place] [phone] Social History Tobacco Use Types Packs/Day [...] do you attend yazidism or Never 2021 islam services? Do you [...] APRN, C.N.P., D.N.P. - 02/01/2021 1:46 PM BULK FLUIDS HANDLER Addended by: LONNY NORTON on: 02/01/2021 01:46 PM Modules accepted: Orders FLUIDS HANDLER Telephone Encounter - Karine Coles Pharm.D., R.Ph. - 02/01/2021 1:29 PM CST Allison Starr is asking for a refill of her Advair. It has been taken of her medication list. Can she get a new prescription for it? Thank you, [facility] [place] FLUIDS HANDLER documented in this encounter Plan of Treatment Upcoming Encounters Date Type Specialty Care Team Description 01/14/2022 Appointment Radiology Lonny Norton APRN, C.N.P., D.N.P. [address] [phone] (Wo rk) 01/27/2022 Clinical Support Integrative Medicine Haris, Iv y 701 [facility] [place] [place] [phone] (Wo rk) documented as of this encounter Visit Diagnoses Not on filedocumented in this encounter Care Teams Pipe Production Worker Relationship Specialty Start Date End Date Lonny Norton APRN, C.N.P., PCP - General Family Medicine D.N.P. [address] [address] [place] [phone] documented as of this encounter
--- OUTSIDE RECORDS SUMMARY | 2022-01-11 00:17 | XMS_ITS | Encounter Summary ---
:1970 Author Organization [facility] Address [address] [place] [address] Care Team Providers Name Role Phone Ro Norton APRN C.N.P., D.N.P. Primary Care Provider Reason for Visit Reason Comments Care Coordination Encounter Details Date Type Department Care Team Description 01/25/2021 Patient Outreach Department of Miranda Phillips Care Dextrine Mixer rdination Cardiovascular Medicine R.N. in [facility] 200 [facility] [address] [place] [address] [phone] Social History Tobacco Use Types Packs/Day Years [...] do you attend mosque or Never 2021 judaism services? Do you [...] labs to be drawn 02/15/2021 at the [facility]. Once we have results we can review to see if she is ready to increase to 10 mg daily. Labs due 02/15/2021 Disposition/Recommendation: self-care is appropriate at this time, patient encouraged to call back with questions. Information/Education: patient/caller able to teach back. Caller agreeable to plan of care: yes. The following references were used: nursing clinical judgement. PING AND RECEIVING documented in this encounter Plan of Treatment Upcoming Encounters Date Type Specialty Care Team Description 01/14/2022 Appointment Radiology Ro Norton APRN, C.N.P., D.N.P. [address] [address] [place] [address] (Wo rk) 01/27/2022 Clinical Support Integrative Medicine Sohan Carballo y 701 [facility] [place] [phone] (Wo rk) Scheduled Orders Name Type Priority Associated Diagnoses [...] (HC C) 02/15/2021, Expires: Medication Therapy Long 0 07/2022 Term Not Anticoagulant CBC without Differential Lab Routine Other Secondary Pulmonary Expected: Hypertension (HC C) 02/15/2021, Expires: Medication Therapy Long 07/2022 Term Not Anticoagulant documented as of this encounter Visit Diagnoses Diagnosis Other Secondary Pulmonary Hypertension ( HCC) - Primary Medication Therapy Shipping And Receiving Assistant Not Anticoa gulant documented in this encounter Care Teams Insurance Claims Representative Relationship Specialty Start Date End Date Ro Norton APRN, C.N.P., PCP - General Family Medicine D.N.P. [address] [phone] documented as of this encounter
--- OUTSIDE RECORDS SUMMARY | 2022-01-11 00:17 | XMS_ITS | Encounter Summary ---
:1970 Author Organization [facility] Address [address] [place] [address] Care Team Providers Name Role Phone Ro Norton APRN, C.N.P., D.N.P. Primary Care Provider Reason for Visit Reason Comments Cough O2 at night and using neb an d inhalers yellow and light green plegem, covid test yesterday was neg , no nausea vomitting or fever. Encounter Details Date Type Department Care Team Description 03/01/2021 Telemedicine Department of [facility] Ro Norton Ch ronic Obstructive Pulmonary Disease Exacerbation (HCC) (Primary Dx); Medicine, Law MORA, C.N.P., Other Seco ndary Pulmonary Hypertension (HCC); [facility], in D.N.P. Infection Upper Respiratory [address] [phone] Social History Tobacco Use Types Packs/Day [...] do you attend gnosticist or Never 2021 confucianism services? Do you belong to any clubs or No 02/25/2021 organizations such as gnosticist groups, unions, fraViking Therapeutics or athletic groups, or school groups? How [...] (HCC) Encouraged patient to follow-up with her grinder mill operator as ordered. Discussed the importance of frequent [...] COVID-19 emergency, when many states had issued soqrnpj-ez-swcip orders. Ro Norton APRN, C.N.P., D.N.P. MATIC BRINE MIXER OPERATOR documented in this encounter Plan of Treatment Upcoming Encounters Date Type Specialty Care Team Description 01/14/2022 Appointment Radiology Ro Norton APRN, C.N.P., D.N.P. [address] [phone] (Wo rk) 01/27/2022 Clinical Support Integrative Medicine Sohan Carballo [address] [place], [place] [phone] (Wo rk) documented as of this encounter Visit Diagnoses Diagnosis Chronic Obstructive Pulmonary Disease Ex acerbation (HCC) - Primary Other Secondary Pulmonary Hypertension ( HCC) Infection Upper Respiratory documented in this encounter Care Teams Yacht Captain Relationship Specialty Start Date End Date Ro Norton APRN, C.N.P., PCP - General Family Medicine D.N.P. [address] [phone] documented as of this encounter
--- OUTSIDE RECORDS SUMMARY | 2022-01-11 00:17 | XMS_ITS | Encounter Summary ---
:1970 Author Organization [facility] Address [address] [place] [address] Care Team Providers Name Role Phone Ro Norton APRN C.N.P., D.N.P. Primary Care Provider Reason for Visit Reason Comments Care Coordination Encounter Details Date Type Department Care Team Description 04/14/2021 Patient Outreach Department of Miranda Phillips Care Shake Out Worker rdination Cardiovascular Medicine R.N. in [facility] 200 [email or web address] [address] [place] [address] [phone] Social History Tobacco Use Types Packs/Day Years [...] or relatives? How often do you attend tenriism or Never 2021 anglican services? Do you belong to any clubs or No 02/25/2021 organizations such as tenriism groups, unions, fraternal or athletic groups, or [...] to reach her by phone. A message wasalso sent through the on line portal. ELAIN ENAMEL REPAIRER documented in this encounter Plan of Treatment Upcoming Encounters Date Type Specialty Care Team Description 01/14/2022 Appointment Radiology Ro Norton APRN, C.N.P., D.N.P. [address] [phone] (Amanda goldman) 01/27/2022 Clinical Support Integrative Medicine Haris, Iv y [address] [place], [place] [phone] (Amanda goldman) documented as of this encounter Visit Diagnoses Not on filedocumented in this encounter Care Teams Customer Support Specialist Relationship Specialty Start Date End Date Ro Norton APRN, C.N.P., PCP - General Family Medicine D.N.P. [address] [phone] documented as of this encounter
--- OUTSIDE RECORDS SUMMARY | 2022-01-11 00:17 | XMS_ITS | Encounter Summary ---
:1970 Author Organization [facility] Address [address] [place] [address] Care Team Providers Name Role Phone Ro Norton APRN C.N.P., D.N.P. Primary Care Provider Reason for Visit Reason Comments Med Refill Encounter Details Date Type Department Care Team Description 04/15/2021 Refill Department of Family Medicine, Angela Hernandez, Med Refill [facility], in [place] Ama[address] [phone] Social History Tobacco Use [...] do you attend voodoo or Never 2021 roman catholic services? Do [...] Appointment Radiology Ro Norton APRN, C.N.P., D.N.P. [address] [phone] (Wo rk) 01/27/2022 Clinical Support Integrative Medicine Haris, Iv y [address] [place], [place] [phone] (Wo rk) documented as of this encounter Visit Diagnoses Not on filedocumented in this encounter Care Teams Rfid Systems Engineer Relationship Specialty Start Date End Date Ro Norton APRN, C.N.P., PCP - General Family Medicine D.N.P. [address] [phone] documented as of this encounter
--- OUTSIDE RECORDS SUMMARY | 2022-01-11 00:17 | XMS_ITS | Encounter Summary ---
:1970 Author Organization [facility] Address [address] [place] [address] Care Team Providers Name Role Phone Ro Norton APRN C.N.P., D.N.P. Primary Care Provider Reason for Visit Reason Comments Med Refill Encounter Details Date Type Department Care Team Description 01/18/2021 Refill Division of Pulmonary Medicine Lubna Cleary M.D. Med Refill in [facility] [address] [facility] [address] [place] [address] [place] [address] [phone] Social History Tobacco Use Types Packs/Day Years [...] do you attend anabaptist or Never 2021 shinto services? Do you [...] request for patient's Lasix Script from the [facility] (P: [phone], ). Patient was last seen by you on 09/29/2020 and has no upcoming appointments at this time. ?? Please review the teed up order and approve if appropriate. Thank you, Rafia, Pulmonary Med. Admin. Asst. ON PUNCHER documented in this encounter Plan of Treatment Upcoming Encounters Date Type Specialty Care Team Description 01/14/2022 Appointment Radiology Ro Norton APRN, C.N.P., D.N.P. [address] [phone] (Amanda goldman) 01/27/2022 Clinical Support Integrative Medicine Sohan Carballo y [address] [place], [place] [phone] (Amanda goldman) documented as of this encounter Visit Diagnoses Not on filedocumented in this encounter Care Teams Voyage Management System Operator Relationship Specialty Start Date End Date Ro Norton APRN, C.N.P., PCP - General Family Medicine D.N.P. [address] [phone] documented as of this encounter"
--- OUTSIDE RECORDS SUMMARY | 2022-01-11 00:17 | XMS_ITS | Encounter Summary ---
:1970 Author Organization [facility] Address [address] [place] [address] Care Team Providers Name Role Phone Ro Norton APRN C.N.P., D.N.P. Primary Care Provider Reason for Visit Reason Comments Med Refill Encounter Details Date Type Department Care Team Description 03/09/2021 Clinical Communication [facility] Karine Coles Med Refill [place] A, Pharm.D., [address] [place] [address] R.Ph. [place] [phone] [facility] [phone] [place] [phone] Social History Tobacco Use Types Packs/Day Years [...] do you attend gnosticist or Never 2021 sabianism services? Do you [...] - 03/09/2021 2:17 PM CST Refill sent. TER'S DEVIL Telephone Encounter - Karine Coles Pharm.D., R.Ph. - 03/09/2021 2:12 PM CST Allison is requesting a refill of Duonebs. Thank you, [facility] - [place] TER'S DEVIL documented in this encounter Plan of Treatment Upcoming Encounters Date Type Specialty Care Team Description 01/14/2022 Appointment Radiology Ro Norton APRN, C.N.P., D.N.P. [address] [phone] (Wo rk) 01/27/2022 Clinical Support Integrative Medicine Haris, Iv y [address] [place], [place] [phone] (Wo rk) documented as of this encounter Visit Diagnoses Not on filedocumented in this encounter Care Teams Glue Reel Operator Relationship Specialty Start Date End Date Ro Norton APRN, C.N.P., PCP - General Family Medicine D.N.P. [address] [phone] documented as of this encounter
--- OUTSIDE RECORDS SUMMARY | 2022-01-11 00:17 | XMS_ITS | Encounter Summary ---
:1970 Author Organization [facility] Address [address] [place] [address] Care Team Providers Name Role Phone Ro Norton APRN C.N.P., D.N.P. Primary Care Provider Encounter Details Date Type Department Care Team Description 02/01/2021 Orders Only [facility] Olga [place] Pharm.D., R.Ph. [address] [phone] [place], [place] [phone] (Wo rk) Social History Tobacco Use [...] do you attend sikhism or Never 2021 yarsani services? Do you [...] Appointment Radiology Ro Norton APRN, C.N.P., D.N.P. [address] [phone] (Wo rk) 01/27/2022 Clinical Support Integrative Medicine Haris, Iv y [address] [place], [place] [phone] (Wo rk) documented as of this encounter Visit Diagnoses Not on filedocumented in this encounter Care Teams Electrical Parts Reconditioner Relationship Specialty Start Date End Date Ro Norton APRN, C.N.P., PCP - General Family Medicine D.N.P. [address] [phone] documented as of this encounter
--- OUTSIDE RECORDS SUMMARY | 2022-01-11 00:17 | XMS_ITS | Encounter Summary ---
:1970 Author Organization [facility] Address [address] [place] [address] Care Team Providers Name Role Phone Ro Norton APRN C.NDean, D.N.P. Primary Care Provider Reason for Referral Outpatient (Routine) - Closed Specialty Diagnoses / Procedures Referred By Contact Refer red To Contact Diagnoses Pain Wrist Right Yolie Leigh [facility] [place] [facility] Procedures DX Wrist Right 3+ Views P.A.-C. [address] [place] [phone] Referral ID Status Reason Start Date Expiration Date Visits Requ ested Visits Authorized [id number] Closed 04/21/2021 04/21/2022 1 1 N RESOURCES OFFICE MANAGER Reason for Visit Outpatient (Routine) - Closed Specialty Diagnoses / Procedures Referred By Contact Refer red To Contact Diagnoses Pain Wrist Right Yolie Leigh [facility] [place] [facility] Procedures DX Wrist Right 3+ Views P.A.-C. [address] [place] [phone] Referral ID Status Reason Start Date Expiration Date Visits Requ ested Visits Authorized [id number] Closed 04/21/2021 04/21/2022 1 1 Encounter Details Date Type Department Care Team Description 04/21/2021 Hospital Encounter Department of Yolie Leigh in Wrist Right Radiology in Carlos Alberto Cabrera P.A.-C. [place], [place] 701 [facility] 701 [facility] Carlos Alberto De Guz[place] [phone] Social History Tobacco Use Types Packs/Day Years [...] do you attend baptism or Never 2021 worship services? Do you [...] Appointment Radiology Ro Norton APRN, C.N.P., D.N.P. [address] [phone] (Wo rk) 01/27/2022 Clinical Support Integrative Medicine Sohan Carballo y [address] [place], [place] [phone] (Wo rk) documented as of this encounter Procedures Procedure Name Priority Date/Time Associated Comments Diagnosis DX WRIST RIGHT 3+ RAD - Routine 04/21/2021 10:35 Pain Wrist Right R esults for this VIEWS (most inpatients AM HUMAN RESOURCES OFFICE MANAGER procedure a re in and all the results outpatients) section. documented in this encounter Results DX Wrist Right 3+ Views (04/21/2021 10:35 AM HUMAN RESOURCES OFFICE MANAGER) Anatomical Region Laterality Modality Upper Extremity, Wrist, Musculoskeletal RST LOS, Right Digital Radiography Musculoskeletal ARZ LOS, Muskuloskeletal FLA LOS Specimen (Source) Anatomical Collection Method Collection Time Re ceived Time Location / / Volume Laterality 04/21/2021 10:51 AM HUMAN RESOURCES OFFICE MANAGER Impressions 04/21/2021 10:54 AM HUMAN RESOURCES OFFICE MANAGER Impacted moderately comminuted, minimally displaced intra-articular [...] variance. Remainder negative. Narrative 04/21/2021 10:54 AM HUMAN RESOURCES OFFICE MANAGER EXAM: ??DX WRIST RIGHT 3+ VIEWS [...] Right documented in this encounter Care Teams Crawler Crane Operator Relationship Specialty Start Date End Date Ro Norton APRN, C.N.P., PCP - General Family Medicine D.N.P. [address] [phone] documented as of this encounter
--- OUTSIDE RECORDS SUMMARY | 2022-01-11 00:17 | XMS_ITS | Encounter Summary ---
:1970 Author Organization [facility] Address [address] [place] [address] Care Team Providers Name Role Phone Ro Norton APRN C.N.Kirsty, D.N.P. Primary Care Provider Encounter Details Date Type Department Care Team Description 04/15/2021 Orders Only Department of Family Vikki Hernandez, Medicine, [place] P.Scott, P.A. [facility], in [address] [phone] Social History Tobacco Use [...] or relatives? How often do you attend druze or Never 2021 congregational services? Do you belong to any clubs or No 02/25/2021 organizations such as druze groups, unions, fraternal or athletic groups, or [...] Appointment Radiology Ro Norton APRN, C.N.P., D.N.P. [address] [phone] (Wo rk) 01/27/2022 Clinical Support Integrative Medicine Haris, Iv y [address] [place], [place] [phone] (Wo rk) documented as of this encounter Visit Diagnoses Not on filedocumented in this encounter Care Teams Watch Caser Relationship Specialty Start Date End Date Ro Norton APRN, C.N.P., PCP - General Family Medicine D.N.P. [address] [phone] documented as of this encounter
--- OUTSIDE RECORDS SUMMARY | 2022-01-11 00:17 | XMS_ITS | Encounter Summary ---
:1970 Author Organization [facility] Address [address] [place] [address] Care Team Providers Name Role Phone Ro Norton APRN C.N.P., D.N.P. Primary Care Provider Encounter Details Date Type Department Care Team Description 02/03/2021 Orders Only Department of Cardiovascular Dior Mcmillan, Medicine in [facility] [address] [place] [address] [address] [place] [phone] (Wo rk) Social History Tobacco Use Types [...] do you attend yazdanism or Never 2021 christian services? Do you [...] Appointment Radiology Ro Norton APRN, C.N.P., D.N.P. [address] [phone] (Wo rk) 01/27/2022 Clinical Support Integrative Medicine Haris, Sohan y [address] [place], [place] [phone] (Wo rk) documented as of this encounter Visit Diagnoses Not on filedocumented in this encounter Care Teams Telephone Advice Nurse Relationship Specialty Start Date End Date Ro Norton APRN, C.N.P., PCP - General Family Medicine D.N.P. [address] [phone] documented as of this encounter
--- OUTSIDE RECORDS SUMMARY | 2022-01-11 00:18 | XMS_ITS | Encounter Summary ---
:1970 Author Organization [facility] Address [address] [place] [address] Care Team Providers Name Role Phone Ro Norton APRN C.N.P., D.N.P. Primary Care Provider Encounter Details Date Type Department Care Team Description 12/16/2020 Patient Self-Triage CONNECTED CARE Symptom Lining Closer, Provider Social History Tobacco Use Types Packs/Day [...] do you attend holiness or Never 2021 scientologist services? Do you [...] Appointment Radiology Ro Norton APRN, C.N.P., D.N.P. [address] [phone] (Wo rk) 01/27/2022 Clinical Support Integrative Medicine Haris, Sohan y [address] [place], [place] [phone] (Wo rk) documented as of this encounter Visit Diagnoses Not on filedocumented in this encounter Additional Health Concerns Infection Onset Date Last Indicated Resolved Time COVID19 Pending 12/16/2020 12/16/2020 01/05/2021 4:50 AM QUILTING MACHINE HELPER documented as of this encounter Care Teams Post Doctoral Fellow Relationship Specialty Start Date End Date Ro Norton APRN, C.N.P., PCP - General Family Medicine D.N.P. [address] [phone] documented as of this encounter
--- OUTSIDE RECORDS SUMMARY | 2022-01-11 00:18 | XMS_ITS | Encounter Summary ---
:1970 Author Organization [facility] Address [address] [place] [address] Care Team Providers Name Role Phone Ro Norton APRN, C.N.P., D.N.P. Primary Care Provider Encounter Details Date Type Department Care Team Description 10/06/2020 Orders Only [facility] - [facility] Ro Norton APRN, [address] [facility] TE 1 C.N.P., [place] [address] [place] [address] [place] [phone] (Wo rk) Social History Tobacco [...] do you attend methodist or Never 2021 islam services? Do you [...] Appointment Radiology Ro Norton APRN, C.N.P., D.N.P. [address] [phone] (Amanda rk) 01/27/2022 Clinical Support Integrative Medicine Haris, Iv y [address] [place], [place] [phone] (Wo rk) documented as of this encounter Visit Diagnoses Not on filedocumented in this encounter Care Teams Guide Excursion Relationship Specialty Start Date End Date Ro Norton APRN, C.N.P., PCP - General Family Medicine D.N.P. [address] [phone] documented as of this encounter
--- OUTSIDE RECORDS SUMMARY | 2022-01-11 00:18 | XMS_ITS | Encounter Summary ---
:1970 Author Organization [facility] Address [address] [place] [address] Care Team Providers Name Role Phone Ro Norton APRN C.N.P., D.N.P. Primary Care Provider Reason for Visit Reason Comments Rx Prior Authorization PA DENIED - TADALAFIL 20 MG TABLET Encounter Details Date Type Department Care Team Description 10/12/2020 Clinical Division of [facility], Rx Prior Communication Pulmonary Medicine Joy Amaya Authorization (PA in [place], [address] [facility] DENIED - TADALAFIL 20 [place], [place] MG TABLET) [address] [facility] [address] [place], [place] [phone] (Work) [phone] Social History Tobacco Use Types Packs/Day Years [...] do you attend cheondoism or Never 2021 episcopal services? Do you belong to any clubs or No 02/25/2021 organizations such as cheondoism groups, unions, fraVeryan Medical or athletic groups, or school groups? How [...] Appointment Radiology Ro Norton APRN, C.N.P., D.N.P. [address] [phone] (Amanda goldman) 01/27/2022 Clinical Support Integrative Medicine Haris, Iv y [address] [place], [place] [phone] (Amanda goldman) documented as of this encounter Visit Diagnoses Not on filedocumented in this encounter Care Teams Ceo Na Relationship Specialty Start Date End Date Ro Norton APRN, C.N.P., PCP - General Family Medicine D.N.P. [address] [phone] documented as of this encounter
--- OUTSIDE RECORDS SUMMARY | 2022-01-11 00:18 | XMS_ITS | Encounter Summary ---
:1970 Author Organization [facility] Address [address] [place] [address] Care Team Providers Name Role Phone Ro Norton APRN C.N.P., D.N.P. Primary Care Provider Reason for Visit Reason Comments Tadalafil Denial Encounter Details Date Type Department Care Team Description 10/15/2020 Clinical Communication Division of Lubna Mcmillan Pulmonary Medicine Michael Ansari in [place], [address] [place] [address] [place] [address] [place], [place] [phone] (Work) [phone] Social History Tobacco Use Types Packs/Day Years [...] do you attend anabaptism or Never 2021 congregation services? Do you [...] faxed this letter to pulmonary hypertension at [phone] and scanned in this document to the patient's chart. Thank you, [facility]ia Pulmonary Med. Admin. Asst. documented in this encounter Plan of Treatment Upcoming Encounters Date Type Specialty Care Team Description 01/14/2022 Appointment Radiology Ro Norton APRN, C.N.P., D.N.P. [address] [phone] (Amanda goldman) 01/27/2022 Clinical Support Integrative Medicine Sohan Carballo y [address] [place], [place] [phone] (Amanda goldman) documented as of this encounter Visit Diagnoses Not on filedocumented in this encounter Care Teams Reading Professor Relationship Specialty Start Date End Date Ro Norton APRN, C.N.P., PCP - General Family Medicine D.N.P. [address] [phone] documented as of this encounter
--- OUTSIDE RECORDS SUMMARY | 2022-01-11 00:18 | XMS_ITS | Encounter Summary ---
:1970 Author Organization [facility] Address [address] [place] [address] Care Team Providers Name Role Phone Ro Norton APRN C.N.P., D.N.P. Primary Care Provider Encounter Details Date Type Department Care Team Description 12/23/2020 Orders Only [facility] Marvin [place] D.D.S. [address] [place], [place] [phone] [place], [place] [phone] (Wo rk) Social History Tobacco Use Types [...] do you attend adventism or Never 2021 congregation services? Do you [...] Appointment Radiology Ro Norton APRN, C.N.P., D.N.P. 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 [address] [place] [phone] documented as of this encounter
--- OUTSIDE RECORDS SUMMARY | 2022-01-11 00:18 | XMS_ITS | Encounter Summary ---
:1970 Author Organization [facility] Address [address] [place] [address] Care Team Providers Name Role Phone Ro Norton APRN C.N.Kirsty, Katelynn.N.P. Primary Care Provider Encounter Details Date Type Department Care Team Description 12/11/2020 Orders Only Department of [facility] Ro Norton, [facility] Medication Medicine, [place] MORGAN C.N.PRaffy, (Mei Scherer) Clinic, in [address] [phone] Social History Tobacco Use Types Packs/Day Years [...] do you attend religious or Never 2021 moravian services? Do you [...] Appointment Radiology Ro Norton APRN, C.N.P., D.N.P. [address] [phone] (Amanda rk) 01/27/2022 Clinical Support Integrative Medicine Haris, Iv y [address] [place], [place] [phone] (Amanda rk) documented as of this encounter Results Test, POCT, [...] Organization Address City/State/ZIP Code Phon e Number [facility]- [address] [place] [address] [place] [address] System [address] documented in this encounter Visit Diagnoses Diagnosis High Risk Medication - Primary documented in this encounter Additional Health Concerns Infection Onset Date Last Indicated Resolved Time COVID19 Pending 12/16/2020 12/16/2020 01/05/2021 4:50 AM 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 [address] [place] [phone] documented as of this encounter
--- OUTSIDE RECORDS SUMMARY | 2022-01-11 00:18 | XMS_ITS | Encounter Summary ---
:1970 Author Organization [facility] Address [address] [place] [address] Care Team Providers Name Role Phone Ro Norton APRN, C.N.P., D.N.P. Primary Care Provider Encounter Details Date Type Department Care Team Description 10/12/2020 Orders Only [facility] - Ro Servin APRN, [address] [facility] 1 C.N.P., [place] [address] [place] [address] [place] [phone] (Wo rk) Social History Tobacco [...] do you attend hinduism or Never 2021 protestant services? Do you [...] Appointment Radiology Ro Norton APRN, C.N.P., D.N.P. [address] [phone] (Amanda rk) 01/27/2022 Clinical Support Integrative Medicine Haris, Iv y [address] [place], [place] [phone] (Wo rk) documented as of this encounter Visit Diagnoses Not on filedocumented in this encounter Care Teams Label Machine Operator Relationship Specialty Start Date End Date Ro Norton APRN, C.N.P., PCP - General Family Medicine D.N.P. [address] [phone] documented as of this encounter
--- OUTSIDE RECORDS SUMMARY | 2022-01-11 00:18 | XMS_ITS | Encounter Summary ---
:1970 Author Organization [facility] Address [address] [place] [address] Care Team Providers Name Role Phone Ro Norton APRN C.N.PRaffy, D.N.P. Primary Care Provider Reason for Visit Reason Onset Date Comments Testing For Upper Respiratory Virus Symptoms 12/16/2020 Encounter Details Date Type Department Care Team Description 12/16/2020 External Outreach Department of [facility] Emilie Cervantes Contact With And Medicine, [place] Amairani Liao (Suspected) Exposure Clinic, in [address] To [facility] (Primary [place], [place] Dx) 701 [facility] [address] [place], [place] [phone] (Work) [phone] Social History Tobacco Use Types Packs/Day Years [...] do you attend faith or Never 2021 sabianist services? Do you [...] Appointment Radiology Ro Norton APRN, C.N.P., D.N.P. [address] [phone] (Amanda goldman) 01/27/2022 Clinical Support Integrative Medicine Sohan Carballo y [address] [place], [place] [phone] (Amanda goldman) documented as of this encounter Visit Diagnoses Diagnosis Contact With And (Suspected) Exposure To COVID-19 - Primary documented in this encounter Additional Health Concerns Infection Onset Date Last Indicated Resolved Time COVID19 Pending 12/16/2020 12/16/2020 01/05/2021 4:50 AM HOCKEY SCOUT documented as of this encounter Care Teams Adolescent Counselor Relationship Specialty Start Date End Date Ro Norton APRN, C.N.P., PCP - General Family Medicine D.N.P. [address] [phone] documented as of this encounter
--- OUTSIDE RECORDS SUMMARY | 2022-01-11 00:18 | XMS_ITS | Encounter Summary ---
:1970 Author Organization [facility] Address [address] [place] [address] Care Team Providers Name Role Phone Ro Norton APRN, C.N.P., D.N.P. Primary Care Provider Encounter Details Date Type Department Care Team Description 10/12/2020 Orders Only [facility] Lubna Hendricks M.D. 12[address] [facility] [address] [place] [address] [place], [place] [phone] (Wo rk) Social History Tobacco Use Types [...] or relatives? How often do you attend shinto or Never 2021 uatsdin services? Do you belong to any clubs or No 02/25/2021 organizations such as shinto groups, unions, fraternal or athletic groups, or [...] Appointment Radiology Ro Norton APRN, C.N.P., D.N.P. [address] [phone] (Wo rk) 01/27/2022 Clinical Support Integrative Medicine Haris, Iv y [address] [place], [place] [phone] (Wo rk) documented as of this encounter Visit Diagnoses Not on filedocumented in this encounter Care Teams Electronic Instrument Trades Worker Relationship Specialty Start Date End Date Ro Norton APRN, C.N.P., PCP - General Family Medicine D.N.P. [address] [phone] documented as of this encounter
--- OUTSIDE RECORDS SUMMARY | 2022-01-11 00:18 | XMS_ITS | Encounter Summary ---
:1970 Author Organization [facility] Address [address] [place] [address] Care Team Providers Name Role Phone Ro Norton APRN C.N.Kirsty, D.N.P. Primary Care Provider Encounter Details Date Type Department Care Team Description 12/11/2020 Hospital Encounter Department of Ro Norton is Medication Laboratory Medicine MORGAN Ansari, in [place] C.N.Kirsty, D.N.P. [address] [place], [address] [place] [phone] Social History Tobacco Use Types Packs/Day Years [...] do you attend baptist or Never 2021 gnosticist services? Do you belong to any clubs [...] Take 2 tablets (40 mg 60 tablet 10/03/19 21 12/24/2020 hypertension, (ADCIRCA) total) by [...] Appointment Radiology Ro Norton APRN, C.N.P., D.N.P. [address] [phone] (Wo rk) 01/27/2022 Clinical Support Integrative Medicine Haris, Iv y [address] [place], [place] [phone] (Wo rk) documented as [...] 12/12/19 5:27 Clean Catch) CDT PM CDT Ninoska Borden APRNN.Taylor., D.N.P. LAB POCT ORDERABL ES - DEVICE Performing Organization Address City/State/ZIP Code Phon e Number [facility]- [address] [place] [address] [place] [address] System [address] documented in this encounter Visit Diagnoses Diagnosis High Risk Medication documented in this encounter Care Teams Sloop Captain Relationship Specialty Start Date End Date Ro Norton APRN, C.N.P., PCP - General Family Medicine D.N.P. [address] [place] [phone] documented as of this encounter
--- OUTSIDE RECORDS SUMMARY | 2022-01-11 00:18 | XMS_ITS | Encounter Summary ---
:1970 Author Organization [facility] Address [address] [place] [address] Care Team Providers Name Role Phone Ro Norton APRN, C.N.P., D.N.P. Primary Care Provider Encounter Details Date Type Department Care Team Description 10/06/2020 Orders Only [facility] [place], Screening Mammogram Breast Cancer; MORGAN, C.N.P., Screening Lipi d D.N.P. [address] [phone] Social History Tobacco Use Types Packs/Day Years [...] do you attend gnosticist or Never 2021 yazdanism services? Do you [...] Appointment Radiology Ro Norton APRN, C.N.P., D.N.P. [address] [place] [phone] (Wo rk) 01/27/2022 Clinical Support Integrative Medicine Haris, Sohan y 701 [place], [place] [phone] (Wo rk) documented as of this encounter Visit Diagnoses Diagnosis Screening Mammogram Breast Cancer Screening Lipid documented in this encounter Care Teams Route Driver Salesperson Relationship Specialty Start Date End Date Ro Norton APRN, C.N.P., PCP - General Family Medicine D.N.P. [address] [place] [phone] documented as of this encounter
--- OUTSIDE RECORDS SUMMARY | 2022-01-11 00:18 | XMS_ITS | Encounter Summary ---
:1970 Author Organization [facility] Address [address] [place] [address] Care Team Providers Name Role Phone Ro Norton APRN C.N.P., D.N.P. Primary Care Provider Encounter Details Date Type Department Care Team Description 12/11/2020 Hospital Encounter Department of Lubna Mcmillan Secondary Pulmonary Hypertension (HCC); Laboratory Medicine Michael Ansari Medication Therapy Halfway Not Anticoa gulant in [place] [phone] [address] [phone] [place], [place] (Work) [phone] Social History Tobacco Use [...] Appointment Radiology Ro Norton APRN, C.N.P., D.N.P. [address] [phone] (Amanda rk) 01/27/2022 Clinical Support Integrative Medicine Hairs, Iv y [address] [place], [place] [phone] (Wo rk) documented as of this encounter Visit Diagnoses Diagnosis Other Secondary Pulmonary Hypertension ( HCC) Medication Therapy Java Developer Architect Not Anticoa gulant documented in this encounter Care Teams Auto Vinyl Top Installer Relationship Specialty Start Date End Date Ro Norton APRN, C.N.P., PCP - General Family Medicine D.N.P. [address] [phone] documented as of this encounter
--- OUTSIDE RECORDS SUMMARY | 2022-01-11 00:18 | XMS_ITS | Encounter Summary ---
:1970 Author Organization [facility] Address [address] [place] [address] Care Team Providers Name Role Phone Ro Norton APRN C.N.PRaffy, D.N.P. Primary Care Provider Reason for Visit Reason Comments URI worse the last 2 days. Star ezequiel 4 days ago Appointment Request (Routine) - Closed Specialty Diagnoses / Procedures Referred By Contact Refer red To Contact Family Medicine Referral ID Status Reason Start Date Expiration Date Visits Requ ested Visits Authorized [id number] Closed 12/16/2020 12/16/2021 1 1 Encounter Details Date Type Department Care Team Description 12/17/2020 Telemedicine Department of [facility] Marco Antonio Cervantes onbarrington Obstructive Pulmonary Disease Exacerbation (HCC) (Primary Dx); Medicine, [facility], [address] [address] [place], [place] [phone] (Work) [phone] Social History Tobacco Use Types Packs/Day Years [...] do you attend temple or Never 2021 restorationist services? Do you belong to any clubs or No 02/25/2021 organizations such as temple groups, [employer], [employer] or athletic groups, or school groups? How [...] technology by Marco Antonio Cervantes PA-C at [facility] to the patient in patient's home/personal device. At the beginning of visit, I introduced the myself, verified patient's date of , and discussed limitations of virtual visit verses [id number] visit. Patient agreed to proceed on with [...] by mouth daily for 5 days., Starting Mon12/17/2020, Until Mon12/22/2020, Normal - doxycycline hyclate (VIBRAMYCIN) 100 mg capsule; Take 1 capsule (100 mg total) by mouth 2 (two) times a day for 5 days., Starting Mon12/17/2020, Until Mon12/22/2020, Normal Consult conducted via real-time audio/video technology by Marco Antonio Cervantes PA-C at [facility] to the patient in patient's home/personal device. PATIENT EDUCATION Ready to learn, no apparent learning barriers were identified; learning preferences include listening. Explained diagnosis and treatment plan; patient/marketing analytics manager expressed understanding of the content. Patient/caregiver was [...] Description 01/14/2022 Appointment Radiology Ro Norton APRN, C.N.PRaffy, D.N.P. 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 [address] [phone] documented as of this encounter
--- OUTSIDE RECORDS SUMMARY | 2022-01-11 00:18 | XMS_ITS | Encounter Summary ---
:1970 Author Organization [facility] Address [address] [place] [address] Care Team Providers Name Role Phone Ro Norton APRN, C.N.P., D.N.P. Primary Care Provider Encounter Details Date Type Department Care Team Description 10/12/2020 Orders Only Pharmacy Prior Auth Dawson Manuel [phone] Social History Tobacco Use Types Packs/Day Years [...] or relatives? How often do you attend taoism or Never 2021 restorationism services? Do you belong to any clubs or No 02/25/2021 organizations such as taoism groups, unions, fraternal or athletic groups, or [...] Care Team Description 01/14/2022 Appointment Radiology Ro Nortno APRN, C.N.P., D.N.P. [address] [phone] (Wo rk) 01/27/2022 Clinical Support Integrative Medicine Haris, Iv y [address] [place], [place] [phone] (Wo rk) documented as of this encounter Visit Diagnoses Not on filedocumented in this encounter Care Teams Load Builder Relationship Specialty Start Date End Date Ro Norton APRN, C.N.P., PCP - General Family Medicine D.N.P. [address] [phone] documented as of this encounter
--- OUTSIDE RECORDS SUMMARY | 2022-01-11 00:18 | XMS_ITS | Encounter Summary ---
:[address] [facility] Address [address] [place] [address] Care Team Providers Name Role Phone Ro Norton APRN C.N.P., D.N.P. Primary Care Provider Reason for Visit Reason Comments Opsumit Denial Encounter Details Date Type Department Care Team Description 10/15/2020 Clinical Communication Division of Lubna Mcmillan Pulmonary Medicine Michael Ansari in [place], [address] [place] [address] [place] [phone] [place], [place] [phone] (Work) [phone] Social History Tobacco Use Types Packs/Day Years [...] or relatives? How often do you attend buddhist or Never 2021 evangelical services? Do you belong to any clubs or No 02/25/2021 organizations such as buddhist groups, unions, fraternal or athletic groups, or [...] second drug Telephone Encounter - Nya Cannon RToya. - 10/22/2020 4:23 PM CDT Images from the original note were not included. Patient has started sildenafil however Opsumit was denied by insurance. Telephone Encounter - Rafia Bills - 10/15/2020 3:21 PM CDT We received a letter from Ms. Schulz's insurance stating that Opsumit has been denied. I have faxed this letter to pulmonary hypertension at [phone] and scanned in this document to the patient's chart. Thank you, Rafia, Pulmonary Med. Admin. Asst. documented in this encounter Plan of Treatment Upcoming Encounters Date Type Specialty Care Team Description 01/14/2022 Appointment Radiology Ro Norton APRN, C.N.P., D.N.P. [address] [phone] (Wo rk) 01/27/2022 Clinical Support Integrative Medicine Haris, Iv y [address] [place], [place] [phone] (Wo rk) documented as of this encounter Visit Diagnoses Not on filedocumented in this encounter Care Teams Marble Machine Operator Relationship Specialty Start Date End Date Ro Norton APRN, C.N.P., PCP - General Family Medicine D.N.P. [address] [phone] documented as of this encounter
--- OUTSIDE RECORDS SUMMARY | 2022-01-11 00:18 | XMS_ITS | Encounter Summary ---
:1970 Author Organization [facility] Address [address] [place] [address] Care Team Providers Name Role Phone Ro Norton APRN C.N.PRaffy, D.N.P. Primary Care Provider Reason for Visit Reason Comments Med Refill Encounter Details Date Type Department Care Team Description 11/24/2020 Refill Department of Family Medicine, Ro Norton APRN, Med Refill [facility], in [place] C .N.PRaffy, D.N.P. [address] [phone] (Wo rk) Social History Tobacco Use Types [...] do you attend catholic or Never 2021 taoist services? Do you [...] Appointment Radiology Ro Norton APRN, C.N.P., D.N.P. [address] [phone] (Amanda godlman) 01/27/2022 Clinical Support Integrative Medicine Haris, Iv y [address] [place], [place] [phone] (Wo rk) documented as of this encounter Visit Diagnoses Not on filedocumented in this encounter Care Teams Pipe Smoker Machine Operator Relationship Specialty Start Date End Date Ro Norton APRN, C.N.P., PCP - General Family Medicine D.N.P. [address] [phone] documented as of this encounter
--- OUTSIDE RECORDS SUMMARY | 2022-01-11 00:18 | XMS_ITS | Encounter Summary ---
:1970 Author Organization [facility] Address [address] [place] [address] Care Team Providers Name Role Phone Ro Norton APRN C.N.P., D.N.P. Primary Care Provider Reason for Visit Reason Comments Medication Problem Encounter Details Date Type Department Care Team Description 10/12/2020 Clinical Communication [facility] Olivia Coles ation Problem Pharmacy Gamaliel Ratliff Pharm.D., [address] [place] [address]. [address] [address] [facility] [place] [facility] [phone] [place] [phone] Social History Tobacco Use Types Packs/Day [...] do you attend catholic or Never 2021 scientology services? Do you [...] CDT New Rx for Sildenafil sent to [facility] pharmacy [place], [place] Telephone Encounter - Lubna Mcmillan M.D. - 10/12/2020 4:34 PM CDT Ok to do sildenafil instead Telephone Encounter - Karine Coles Pharm.D., R.Ph. - 10/12/2020 4:20 PM CDT The PA for tadalafil was denied. The insurance will only cover sildenafil. Please consider this change and send an updated prescription, if appropriate, to [facility]. Thank you, [facility] documented in this encounter Plan of Treatment Upcoming Encounters Date Type Specialty Care Team Description 01/14/2022 Appointment Radiology Ro Norton APRN, C.N.P., D.N.P. [address] [phone] (Wo rk) 01/27/2022 Clinical Support Integrative Medicine Haris, Iv y [address] [place], [place] [phone] (Wo rk) documented as of this encounter Visit Diagnoses Diagnosis Hypertension Pulmonary Primary (HCC) - P rimary documented in this encounter Care Teams Manager Office Relationship Specialty Start Date End Date Ro Norton APRN, C.N.P., PCP - General Family Medicine D.N.P. [address] [phone] documented as of this encounter
--- OUTSIDE RECORDS SUMMARY | 2022-01-11 00:18 | XMS_ITS | Encounter Summary ---
:1970 Author Organization [facility] Address [address] [place] [address] Care Team Providers Name Role Phone Ro Norton APRN C.N.P., D.N.P. Primary Care Provider Encounter Details Date Type Department Care Team Description 10/03/2020 Orders Only [facility] Olga [place] Pharm.D., R.Ph. [address] [phone] [place], [place] [phone] (Wo rk) Social History Tobacco Use [...] do you attend episcopal or Never 2021 yarsani services? Do you [...] Appointment Radiology Ro Norton APRN, C.N.P., D.N.P. [address] [phone] (Wo rk) 01/27/2022 Clinical Support Integrative Medicine Haris, Iv y [address] [place], [place] [phone] (Wo rk) documented as of this encounter Visit Diagnoses Not on filedocumented in this encounter Care Teams It Infrastructure Engineer Relationship Specialty Start Date End Date Ro Norton APRN, C.N.P., PCP - General Family Medicine D.N.P. [address] [phone] documented as of this encounter
--- OUTSIDE RECORDS SUMMARY | 2022-01-11 00:18 | XMS_ITS | Encounter Summary ---
:1970 Author Organization [facility] Address [address] [place] [address] Care Team Providers Name Role Phone Ro Norton APRN C.N.P., D.N.P. Primary Care Provider Reason for Visit Reason Comments Follow-up Encounter Details Date Type Department Care Team Description 12/23/2020 Patient Outreach Department of Cathie Phillips Follow-brennan p Cardiovascular Medicine in [place], [place] [address] [facility] [address] [place] [phone] [phone] Social History Tobacco Use Types Packs/Day Years [...] do you attend sabianist or Never 2021 jewish services? Do you [...] Labs are planned for 01/08/2021 at the [facility]. testing is no longer needed. In collaboration with Dr. Wren a lab order was completedper the [facility] lab guidelines. She was reminded to obtain [...] Description 01/14/2022 Appointment Radiology Ro Norton APRN C.N.PRaffy, D.N.P. 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 [address] [phone] documented as of this encounter
--- OUTSIDE RECORDS SUMMARY | 2022-01-11 00:18 | XMS_ITS | Encounter Summary ---
:1970 Author Organization [facility] Address [address] [place] [address] Care Team Providers Name Role Phone Ro Norton APRN C.N.P., D.N.P. Primary Care Provider Reason for Visit Reason Comments Rx Prior Authorization ambrisentan Encounter Details Date Type Department Care Team Description 11/04/2020 Clinical Department of Nya Clancy Rx Prior Communication Cardiovascular E, R.N. Authorization Medicine in [address] [place] [address] (ambrisentan) [place], [place] [address] [place] [address] [place], [place] [phone] (Work) [phone] Social History Tobacco Use Types Packs/Day Years [...] do you attend samaritan or Never 2021 baptist services? Do you [...] Appointment Radiology Ro Norton APRN, C.N.P., D.N.P. [address] [phone] (Wo rk) 01/27/2022 Clinical Support Integrative Medicine Haris, Iv y [address] [place], [place] [phone] (Wo rk) documented as of this encounter Visit Diagnoses Not on filedocumented in this encounter Care Teams Memory Care Program Resident Relationship Specialty Start Date End Date Ro Norton APRN, C.N.P., PCP - General Family Medicine D.N.P. [address] [phone] documented as of this encounter
--- OUTSIDE RECORDS SUMMARY | 2022-01-11 00:18 | XMS_ITS | Encounter Summary ---
:1970 Author Organization [facility] Address [address] [place] [address] Care Team Providers Name Role Phone Ro Norton APRN C.N.P., D.N.P. Primary Care Provider Reason for Visit Reason Comments Care Coordination Encounter Details Date Type Department Care Team Description 12/07/2020 Patient Outreach Department of Cathie Phillips Care Patent Agent rdination Cardiovascular Medicine R.N. in [facility] 200 [facility] [address] [place] [address] [phone] Social History Tobacco Use Types Packs/Day Years [...] do you attend gnosticist or Never 2021 holiness services? Do you [...] Miscellaneous Notes Addendum Note - Cathie Phillips RToya. - 12/07/2020 3:36 PM CDT Addended by: CATHIE PHILLIPS on: 12/07/2020 04:42 PM Modules accepted: Orders documented in this encounter Plan of Treatment Upcoming Encounters Date Type Specialty Care Team Description 01/14/2022 Appointment Radiology Ro Norton APRN, C.N.PRaffy, D.N.P. [address] [phone] (Wo rk) 01/27/2022 Clinical Support Integrative Medicine Haris, Iv y [address] [place], [place] [phone] (Wo rk) documented as of this encounter Visit Diagnoses Diagnosis Other Secondary Pulmonary Hypertension ( HCC) - Primary Medication Therapy Correction Not Anticoa gulant documented in this encounter Care Teams Data Warehousing Engineer Relationship Specialty Start Date End Date Ro Norton APRN, C.N.P., PCP - General Family Medicine D.N.P. [address] [phone] documented as of this encounter
--- OUTSIDE RECORDS SUMMARY | 2022-01-11 00:18 | XMS_ITS | Encounter Summary ---
:1970 Author Organization [facility] Address [address] [place] [address] Care Team Providers Name Role Phone Ro Norton APRN, C.N.P., D.N.P. Primary Care Provider Encounter Details Date Type Department Care Team Description 10/14/2020 Orders Only Pharmacy Prior Auth [place] Ro Norton APRN, C.N.P., D.N.P. [address] [place] [phone] (Wo rk) Social History Tobacco Use [...] do you attend shinto or Never 2021 hindu services? Do you [...] Appointment Radiology Ro Norton APRN, C.N.P., D.N.P. [address] [phone] (Wo rk) 01/27/2022 Clinical Support Integrative Medicine Haris, Sohan y [address] [place], [place] [phone] (Wo rk) documented as of this encounter Visit Diagnoses Not on filedocumented in this encounter Care Teams Photo Optics Technician Relationship Specialty Start Date End Date Ro Norton APRN, C.N.P., PCP - General Family Medicine D.N.P. [address] [phone] documented as of this encounter
--- OUTSIDE RECORDS SUMMARY | 2022-01-11 00:19 | XMS_ITS | Encounter Summary ---
:1970 Author Organization [facility] Address [address] [place] [address] Care Team Providers Name Role Phone Ro Norton APRN, C.N.P., D.N.P. Primary Care Provider Reason for Visit Reason Comments Rx Prior Authorization PA DENIED - NICOTROL INH 10M G Encounter Details Date Type Department Care Team Description 09/14/2020 Clinical Division of [facility], Rx Prior Communication Pulmonary Medicine Joy Amaya Authorization (PA in [place], [address] [facility] DENIED - [place] [address] ) [address] [facility] [address] [place], [place] [phone] (Work) [phone] Social History Tobacco Use Types Packs/Day Years [...] do you attend nondenominational or Never 2021 anabaptist services? Do you [...] allergy it may be approved. Thank you, Rafia, Pulmonary Med. Admin. Asst. Telephone Encounter - [...] Appointment Radiology Ro Norton APRN, C.N.P., D.N.P. [address] [phone] (Wo rk) 01/27/2022 Clinical Support Integrative Medicine Haris, Iv y [address] [place], [place] [phone] (Wo rk) documented as of this encounter Visit Diagnoses Not on filedocumented in this encounter Additional Health Concerns Infection Onset Date Last Indicated Resolved Time COVID19 Pending 09/25/2020 09/25/2020 09/25/2020 11:14 PM CDT documented as of this encounter Care Teams Web Press Operator Assistant Relationship Specialty Start Date End Date Ro Norton APRN, C.N.P., PCP - General Family Medicine D.N.P. [address] [phone] documented as of this encounter
--- OUTSIDE RECORDS SUMMARY | 2022-01-11 00:19 | XMS_ITS | Encounter Summary ---
:1970 Author Organization [facility] Address [address] [place] [address] Care Team Providers Name Role Phone Ro Norton APRN C.N.PRaffy, D.N.P. Primary Care Provider Reason for Referral Outpatient (Routine) - Closed Specialty Diagnoses / Procedures Referred By Contact Refer red To Contact Cardiovascular Disease Lubna Mcmillan [address] [place] M.D. [address] [place] [address] Referral ID Status Reason Start Date Expiration Date Visits Requ ested Visits Authorized [id number] Closed 09/23/2020 09/23/2021 1 1 Encounter Details Date Type Department Care Team Description 09/23/2020 Orders Only Department of Lubna Mcmillan Cardiovascular Medicine Michael Ansari Pulmonary Hypertension in 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 Do you belong to any clubs or No 02/25/2021 organizations such as hindu groups, unions, fraVeristorm or athletic groups, or school groups? How [...] Appointment Radiology Ro Norton APRN, C.N.P., D.N.P. [address] [phone] (Wo rk) 01/27/2022 Clinical Support Integrative Medicine Sohan Carballo [address] [place], [place] [phone] (Wo rk) Scheduled Referrals Name Type Priority Associated Order Schedule Diagnoses Cardiovascular Disease Outpatient Referral Routine Expected: nurse visit (clinic) 08/04/2 021 (Approximate), Expires: 09/24/2023 documented as of this encounter Visit Diagnoses Diagnosis Other Secondary Pulmonary Hypertension ( HCC) - Primary documented in this encounter Care Teams Personnel Quality Assurance Auditor Relationship Specialty Start Date End Date Ro Norton APRN, C.N.P., PCP - General Family Medicine D.N.P. [address] [phone] documented as of this encounter
--- OUTSIDE RECORDS SUMMARY | 2022-01-11 00:19 | XMS_ITS | Encounter Summary ---
:1970 Author Organization [facility] Address [address] [place] [address] Care Team Providers Name Role Phone Ro Norton APRN, C.N.P., D.N.P. Primary Care Provider Encounter Details Date Type Department Care Team Description 09/02/2020 Orders Only Pharmacy Prior Auth RO Ro Norton APRN, C.N.P., D.N.P. [address] [place] [phone] (Wo rk) Social History Tobacco Use [...] do you attend orthodox or Never 2021 mandaen services? Do you [...] Appointment Radiology Ro Norton APRN, C.N.P., D.N.P. [address] [phone] (Wo rk) 01/27/2022 Clinical Support Integrative Medicine Haris, Sohan y [address] [place], [place] [phone] (Wo rk) documented as of this encounter Visit Diagnoses Not on filedocumented in this encounter Care Teams Escrow Officer Relationship Specialty Start Date End Date Ro Norton APRN, C.N.P., PCP - General Family Medicine D.N.P. [address] [phone] documented as of this encounter
--- OUTSIDE RECORDS SUMMARY | 2022-01-11 00:19 | XMS_ITS | Encounter Summary ---
:1970 Author Organization [facility] Address [address] [place] [address] Care Team Providers Name Role Phone Ro Norton APRN, C.N.P., D.N.P. Primary Care Provider Encounter Details Date Type Department Care Team Description 09/10/2020 Orders Only [facility] Pharm[facility] - Ro Servin APRN, [address] [facility] 1 C.N.P., [place] [address] [place] [address] [place] [phone] (Wo rk) Social History Tobacco [...] do you attend episcopal or Never 2021 scientologist services? Do you [...] Appointment Radiology Ro Norton APRN, C.N.P., D.N.P. [address] [phone] (Amanda rk) 01/27/2022 Clinical Support Integrative Medicine Haris, Iv y [address] [place], [place] [phone] (Wo rk) documented as of this encounter Visit Diagnoses Not on filedocumented in this encounter Care Teams Auto Body Estimator Relationship Specialty Start Date End Date Ro Norton APRN, C.N.P., PCP - General Family Medicine D.N.P. [address] [phone] documented as of this encounter
--- OUTSIDE RECORDS SUMMARY | 2022-01-11 00:19 | XMS_ITS | Encounter Summary ---
:1970 Author Organization [facility] Address [address] [place] [address] Care Team Providers Name Role Phone Ro Norton APRN C.N.PRaffy, D.N.P. Primary Care Provider Encounter Details Date Type Department Care Team Description 10/02/2020 Orders Only Department of Lubna Mcmillan Pulmonary Hypertension (HCC) (Primary Dx); Cardiovascular Medicine Michael Ansari Shortness Of Breath in [facility] costa [address] [facility] [address] [place] [address] [phone] Social History Tobacco Use Types Packs/Day Years [...] or relatives? How often do you attend confucianist or Never 2021 islam services? Do you belong to any clubs or No 02/25/2021 organizations such as confucianist groups, unions, fraternal or athletic groups, or [...] Appointment Radiology Ro Norton APRN, C.N.P., D.N.P. [address] [phone] (Wo rk) 01/27/2022 Clinical Support Integrative Medicine Haris, Iv y 701 [place], [place] [phone] (Wo rk) documented as of this encounter Visit Diagnoses Diagnosis Other Secondary Pulmonary Hypertension ( HCC) - Primary Shortness Of Breath documented in this encounter Care Teams Aluminum Can Collector Relationship Specialty Start Date End Date Ro Norton APRN, C.N.P., PCP - General Family Medicine D.N.P. [address] [phone] documented as of this encounter
--- OUTSIDE RECORDS SUMMARY | 2022-01-11 00:19 | XMS_ITS | Encounter Summary ---
:1970 Author Organization [facility] Address [address] [place] [address] Care Team Providers Name Role Phone Ro [...] Expiration Date Visits Requ ested Visits Authorized [id number] 1 1 Encounter Details Date Type Department Care Team Description 09/29/2020 Surgery Division of [place] HEART CATH ETERIZATION - Cardiovascular Diseases Michael [facility] in [facility] [address] [facility] [address] [place] [address] [phone] Social History Tobacco Use Types Packs/Day Years [...] do you attend druze or Never 2021 jew services? Do you belong to any clubs [...] through Care Everywhere.Care Following Your Catheter Procedure (Indonesian)documented in this encounter Medications at Time of [...] instructions were reviewed in detail as per [id number], with patient and family; they verbalized understanding. Follow up appointment is arranged. Patient was dismissed when discharge criteria was met, accompanied by daughter. All questions answered. documented in this encounter Plan of Treatment Upcoming Encounters Date Type Specialty Care Team Description 01/14/2022 Appointment Radiology Ro Norton APRN, C.N.P., D.N.P. [address] [phone] (Wo rk) 01/27/2022 Clinical Support Integrative Medicine Haris, Iv y [address] [place], [place] [phone] (Wo rk) documented as [...] As needed, line care, Starting on T 09/29/20 at 1106, Intraprocedure (CV), Prior to [...] As needed, line care, Starting on T 09/29/20 at 1047, Preprocedure (CV), Prior to [...] 10 mg/mL (1 %) injection (XYLOCAINE) (CANCELED) 110 (Given - Provider: Nupur Stewart, B.Juanita., B.A.O.) [...] midazolam (PF) injection 0.5 mg (VERSED) (COMPLETED) 1106 (Given - Provider: Charlie Mcmillan R.N.) 0.5 [...] injection documented in this encounter Care Teams Technical Sales Consultant Relationship Specialty Start Date End Date Ro Norton APRN, C.N.P., PCP - General Family Medicine D.N.P. [address] [phone] documented as of this encounter
--- OUTSIDE RECORDS SUMMARY | 2022-01-11 00:19 | XMS_ITS | Encounter Summary ---
:1970 Author Organization [facility] Address [address] [place] [address] Care Team Providers Name Role Phone Ro Norton APRN C.N.P., D.N.P. Primary Care Provider Encounter Details Date Type Department Care Team Description 08/27/2020 Clinical Communication Division of Pulmonary [facility] in Elan Faust M.D. [address] [place] [phone] [phone] Social History Tobacco Use Types Packs/Day Years [...] do you attend yazdanism or Never 2021 hindu services? Do you [...] Appointment Radiology Ro Norton APRN, C.N.P., D.N.P. [address] [phone] (Wo rk) 01/27/2022 Clinical Support Integrative Medicine Sohan Carballo y 701 [place], [place] [phone] (Wo rk) documented as of this encounter Visit Diagnoses Diagnosis Chronic Obstructive Pulmonary Disease (H CC) - Primary Other Secondary Pulmonary Hypertension ( HCC) Shortness Of Breath documented in this encounter Additional Health Concerns Infection Onset Date Last Indicated Resolved Time COVID19 Pending 08/27/2020 08/27/2020 08/27/2020 12:09 PM CDT documented as of this encounter Care Teams Streetcar Conductor Relationship Specialty Start Date End Date Ro Norton APRN, C.N.P., PCP - General Family Medicine D.N.P. [address] [phone] documented as of this encounter
--- OUTSIDE RECORDS SUMMARY | 2022-01-11 00:19 | XMS_ITS | Encounter Summary ---
:1970 Author Organization [facility] Address [address] [place] [address] Care Team Providers Name Role Phone Ro Norton APRN C.N.P., D.N.P. Primary Care Provider Encounter Details Date Type Department Care Team Description 08/27/2020 Diagnostic Division of Pulmonary Lubna Mcmillan, Other Secondary Pulmonary Hypertension (HCC); Medicine in [place] Shortness Of Breath [place] [address] [facility] [address] [place] [phone] [phone] Social History Tobacco Use Types Packs/Day Years [...] do you attend episcopal or Never 2021 baptist services? Do you [...] Appointment Radiology Ro Norton APRN, C.N.P., D.N.P. [address] [phone] (Wo rk) 01/27/2022 Clinical Support Integrative Medicine Haris, Sohan y [address] [place] [phone] (Wo rk) documented as of this encounter Procedures Procedure Name Priority Date/Time Associated Diagnosis Comme nts OXYGEN TITRATION Routine 08/27/2020 8:39 AM Other Secondary Re sults for this CDT Pulmonary Hypertension proce dure are in (HCC) the results Shortness Of Breath section. documented in this encounter Results Oxygen Titration (08/27/2020 8:39 AM CDT) [facility] gist Method Time Signature [1] Inspired [...] documented as of this encounter Care Teams Safety Glass Installer Relationship Specialty Start Date End Date Ro Norton APRN, C.N.P., PCP - General Family Medicine D.N.P. [address] [phone] documented as of this encounter
--- OUTSIDE RECORDS SUMMARY | 2022-01-11 00:19 | XMS_ITS | Encounter Summary ---
:1970 Author Organization [facility] Address [address] [place] [address] Care Team Providers Name Role Phone Ro Norton APRN C.N.P., D.N.P. Primary Care Provider Reason for Visit Reason Comments COVID Inquiry Encounter Details Date Type Department Care Team Description 09/07/2020 Clinical Communication Central Appointment [facility] in [address] [address] Social History Tobacco Use Types Packs/Day Years [...] do you attend yarsanism or Never 2021 mormonism services? Do you [...] Appointment Radiology Ro Norton APRN, C.N.P., D.N.P. [address] [phone] (Wo rk) 01/27/2022 Clinical Support Integrative Medicine Haris, Iv y [address] [place], [place] [phone] (Wo rk) documented as of this encounter Visit Diagnoses Not on filedocumented in this encounter Care Teams Welfare Centre Manager Relationship Specialty Start Date End Date Ro Norton APRN, C.N.P., PCP - General Family Medicine D.N.P. [address] [phone] documented as of this encounter
--- OUTSIDE RECORDS SUMMARY | 2022-01-11 00:19 | XMS_ITS | Encounter Summary ---
:1970 Author Organization [facility] Address [address] [place] [address] Care Team Providers Name Role Phone Ro Norton APRN C.N.Kirsty, D.N.P. Primary Care Provider Reason for Referral Outpatient (Routine) - Closed Specialty Diagnoses / Procedures Referred By Contact Refer red To Contact Diagnoses Other Secondary Pulmonary Hypertension (HCC) Shortness Of Breath Lubna Mcmillan M.D. [facility] Procedures Echo Transthoracic (TTE) [address] [place] [address] Referral ID Status Reason Start Date Expiration Date Visits Requ ested Visits Authorized [id number] Closed 07/01/2020 07/01/2021 1 1 Reason for Visit Outpatient (Routine) - Closed Specialty Diagnoses / Procedures Referred By Contact Refer red To Contact Diagnoses Other Secondary Pulmonary Hypertension (HCC) Shortness Of Breath Lubna Mcmillan M.D. [facility] Procedures Echo Transthoracic (TTE) [address] [place], [place] [phone] Referral ID Status Reason Start Date Expiration Date Visits Requ ested Visits Authorized [id number] Closed 07/01/2020 07/01/2021 1 1 Encounter Details Date Type Department Care Team Description 08/27/2020 Hospital Encounter Department of Hipolito, Eusebia Se condary Pulmonary Hypertension (HCC); Cardiovascular Lubna Ansari M.D. Shortness Of Breath Diseases in [place], [address] [place], [place] [address] [address] [place], [place] [phone] (Work) [phone] Social History Tobacco Use Types Packs/Day Years [...] do you attend gnosticist or Never 2021 mandaeism services? Do you [...] Appointment Radiology Ro Norton APRN, C.N.P., D.N.P. [address] [phone] (Wo rk) 01/27/2022 Clinical Support Integrative Medicine Sohan Carballo y [address] [place], [place] [phone] (Wo rk) documented as [...] COLOR AND CONTRAST (08/27/2020 4:25 PM CDT) [facility] Method Time Signature Ejection Fraction 56 [...] effusion. For the complete report, see the [facility] Documents. Narrative 08/27/2020 4:20 PM CDT For the complete report, see the [facility] Documents. Final Impressions 1. Severely enlarged right [...] Agitated saline contrast administered . 9. No upbjh-qe-oose shunt at atrial leve l at rest [...] Agitated saline contrast administered . 9. No ckmui-fi-buon shunt at atrial leve l at rest [...] protocol documented in this encounter Care Teams Billet Bed Operator Relationship Specialty Start Date End Date Ro Norton APRN, C.N.P., PCP - General Family Medicine D.N.P. [address] [phone] documented as of this encounter
--- OUTSIDE RECORDS SUMMARY | 2022-01-11 00:19 | XMS_ITS | Encounter Summary ---
:1970 Author Organization [facility] Address [address] [place] [address] Care Team Providers Name Role Phone Ro Norton APRN C.N.PRaffy, D.N.P. Primary Care Provider Reason for Visit Outpatient (Routine) - Closed Specialty Diagnoses / Procedures Referred By Contact Refer red To Contact Cardiovascular Disease Lubna Mcmillan [place] [address] [place] M.D. [address] [place] [phone] Referral ID Status Reason Start Date Expiration Date Visits Requ ested Visits Authorized [id number] Closed 09/23/2020 09/23/2021 1 1 Encounter Details Date Type Department Care Team Description 09/28/2020 Virtual Visit Department of Lubna Mcmillan M.D. [address] [place] [phone] Shortness Of Breath Cardiovascular Medicine Kirsten Barton, R.NRaffy [address] [place] [phone] in [facility] [address] [place] [phone] Social History Tobacco Use Types Packs/Day [...] this encounter Patient Instructions Patient InstructionsKirsten Barton, RRaffyN. - 09/28/2020 2:30 PM CDT Unable to [...] pm. 5. Stay within 100 miles of [place] overnight 6. Take all medications as instructed 7. Call the [facility] Service Line ([phone]) the evening before the procedure between the [...] Appointment Radiology Ro Norton APRN, C.N.P., D.N.P. [address] [phone] (Amanda goldman) 01/27/2022 Clinical Support Integrative Medicine Haris, Iv y [address] [place], [place] [phone] (Wo rk) documented as of this encounter Visit Diagnoses Diagnosis Shortness Of Breath documented in this encounter Care Teams Painter Railroad Car Relationship Specialty Start Date End Date Ro Norton APRN, C.N.P., PCP - General Family Medicine D.N.P. [address] [phone] documented as of this encounter
--- OUTSIDE RECORDS SUMMARY | 2022-01-11 00:19 | XMS_ITS | Encounter Summary ---
:1970 Author Organization [facility] Address [address] [place] [address] Care Team Providers Name Role Phone Ro Norton APRN, C.N.P., D.N.P. Primary Care Provider Encounter Details Date Type Department Care Team Description 09/10/2020 Orders Only RST CCM Lubna Mcmillan M.D. [address] [facility] [address] [place] [address] [place] [address] (Wo rk) Social History Tobacco Use Types [...] do you attend confucianist or Never 2021 restorationist services? Do you [...] Appointment Radiology Ro Norton APRN, C.N.P., D.N.P. [address] [place] [phone] (Wo rk) 01/27/2022 Clinical Support Integrative Medicine Haris, Iv y [address] [place], [place] [phone] (Wo rk) documented as of this encounter Visit Diagnoses Not on filedocumented in this encounter Care Teams Arch Pad Cementer Relationship Specialty Start Date End Date Ro Norton APRN, C.N.P., PCP - General Family Medicine D.N.P. [address] [phone] documented as of this encounter
--- OUTSIDE RECORDS SUMMARY | 2022-01-11 00:19 | XMS_ITS | Encounter Summary ---
:1970 Author Organization [facility] Address [address] [place] [address] Care Team Providers Name Role Phone Ro Norton APRN, C.N.P., D.N.P. Primary Care Provider Encounter Details Date Type Department Care Team Description 08/31/2020 Orders Only [facility] Pharm[facility] Lubna Hendricks M.D. [address] [facility] [address] [place] [address] [place], [place] [phone] (Wo rk) Social History Tobacco Use Types [...] do you attend denominational or Never 2021 sikh services? Do you belong to any clubs [...] Appointment Radiology Ro Norton APRN, C.N.P., D.N.P. [address] [phone] (Wo rk) 01/27/2022 Clinical Support Integrative Medicine Haris, Iv y [address] [place], [place] [phone] (Wo rk) documented as of this encounter Visit Diagnoses Not on filedocumented in this encounter Care Teams Chain Dyer Relationship Specialty Start Date End Date Ro Norton APRN, C.N.P., PCP - General Family Medicine D.N.P. [address] [phone] documented as of this encounter
--- OUTSIDE RECORDS SUMMARY | 2022-01-11 00:19 | XMS_ITS | Encounter Summary ---
:1970 Author Organization [facility] Address [address] [place] [address] Care Team Providers Name Role Phone Ro Norton APRN, C.N.P., D.N.P. Primary Care Provider Encounter Details Date Type Department Care Team Description 09/14/2020 Orders Only Pharmacy Prior Auth Dawson Manuel [phone] Social History Tobacco Use Types Packs/Day Years [...] do you attend judaism or Never 2021 bahai services? Do you belong to any clubs [...] Appointment Radiology Ro Norton APRN, C.N.P., D.N.P. [address] [phone] (Wo rk) 01/27/2022 Clinical Support Integrative Medicine Haris, Iv y [address] [place], [place] [phone] (Wo rk) documented as of this encounter Visit Diagnoses Not on filedocumented in this encounter Additional Health Concerns Infection Onset Date Last Indicated Resolved Time COVID19 Pending 09/25/2020 09/25/2020 09/25/2020 11:14 PM CDT documented as of this encounter Care Teams Machine Sole Leveler Relationship Specialty Start Date End Date Ro Norton APRN, C.N.P., PCP - General Family Medicine D.N.P. [address] [phone] documented as of this encounter
--- OUTSIDE RECORDS SUMMARY | 2022-01-11 00:19 | XMS_ITS | Encounter Summary ---
:1970 Author Organization [facility] Address [address] [place] [address] Care Team Providers Name Role Phone Ro Norton APRN C.N.P., D.N.P. Primary Care Provider Encounter Details Date Type Department Care Team Description 09/21/2020 Clinical Communication Department of Lubna Mcmillan Cardiovascular Medicine Michael Ansari in [facility] [address] [facility] [address] [place] [address] [phone] Social History Tobacco Use Types Packs/Day Years [...] do you attend yazdanism or Never 2021 mosque services? Do you [...] - 09/21/2020 11:[address] Mcmillan, . Jazz called this morning to get her cath scheduled. Can you please list the cath for sometime next week? Thank you, Katia documented in this encounter Plan of Treatment Upcoming Encounters Date Type Specialty Care Team Description 01/14/2022 Appointment Radiology Ro Norton APRN, C.N.P., D.N.P. [address] [phone] (Wo rk) 01/27/2022 Clinical Support Integrative Medicine Sohan Carballo [address] [place] [phone] (Wo rk) documented as of this encounter Visit Diagnoses Not on filedocumented in this encounter Additional Health Concerns Infection Onset Date Last Indicated Resolved Time COVID19 Pending 09/25/2020 09/25/2020 09/25/2020 11:14 PM CDT documented as of this encounter Care Teams Crossbow Maker Relationship Specialty Start Date End Date Ro Norton APRN, C.N.P., PCP - General Family Medicine D.N.P. [address] [phone] documented as of this encounter
--- OUTSIDE RECORDS SUMMARY | 2022-01-11 00:19 | XMS_ITS | Encounter Summary ---
:1970 Author Organization [facility] Address [address] [place] [address] Care Team Providers Name Role Phone Ro Norton APRN C.N.P., D.N.P. Primary Care Provider Reason for Visit Appointment Request (Routine) - Closed Specialty Diagnoses / Procedures Referred By Contact Refer red To Contact Cardiovascular Disease Referral ID Status Reason Start Date Expiration Date Visits Requ ested Visits Authorized [id number] Closed 09/29/2020 09/29/2021 1 1 Encounter Details Date Type Department Care Team Description 09/29/2020 Virtual Visit Department of Lubna Mcmillan Cardiovascular Medicine Michael Ansari Pulmonary in [facility] rotary cutter feeder [address] [facility] Hypertension (HCC) [address] [place] [address] [phone] Social History Tobacco Use Types Packs/Day Years [...] do you attend baptism or Never 2021 episcopalian services? Do you [...] Appointment Radiology Ro Norton APRN, C.N.P., D.N.P. [address] [place] [phone] (Wo rk) 01/27/2022 Clinical Support Integrative Medicine Haris, Iv y [address] [place], [place] [phone] (Wo rk) documented as of this encounter Visit Diagnoses Diagnosis Other Secondary Pulmonary Hypertension ( HCC) documented in this encounter Care Teams Commercial Horticulture Instructor Relationship Specialty Start Date End Date Ro Norton APRN, C.N.P., PCP - General Family Medicine D.N.P. [address] [place] [phone] documented as of this encounter
--- OUTSIDE RECORDS SUMMARY | 2022-01-11 00:19 | XMS_ITS | Encounter Summary ---
:1970 Author Organization [facility] Address [address] [place] [address] Care Team Providers Name Role Phone Ro [...] Expiration Date Visits Requ ested Visits Authorized [id number] 1 1 Encounter Details Date Type Department Care Team Description 09/29/2020 Hospital Encounter Division of [facility] Cardiovascular Lubna Ansari M.D. Pulmonary Diseases in [place] [address] [address] Hypertension (HCC) [place], [place] [address] [address] [place], [place] [phone] [address] (Work) [phone] Social History Tobacco Use Types Packs/Day Years [...] do you attend muslim or Never 2021 anglican services? Do you belong to any clubs or No 02/25/2021 organizations such as muslim groups, unions, fraWANTED Technologies or athletic groups, or school groups? How [...] through Care Everywhere.Care Following Your Catheter Procedure (Kuwaiti)documented in this encounter Medications at Time of [...] Take 2 tablets (0.25 60 tablet 2 /10/202011/24/2020 0.125 mg tablet mg total) by mouth [...] instructions were reviewed in detail as per [id number], with patient and family; they verbalized understanding. Follow up appointment is arranged. Patient was dismissed when discharge criteria was met, accompanied by daughter. All questions answered. documented in this encounter Plan of Treatment Upcoming Encounters Date Type Specialty Care Team Description 01/14/2022 Appointment Radiology Ro Norton APRN, C.N.P., D.N.P. [address] [phone] (Wo rk) 01/27/2022 Clinical Support Integrative Medicine Haris, Iv y [address] [place], [place] [phone] (Wo rk) documented as [...] intravenous, As needed, line care, Starting on u09/29/20 at 1047, Preprocedure (CV), Prior to and [...] injection documented in this encounter Care Teams Veneer Department Manager Relationship Specialty Start Date End Date Ro Norton APRN, C.N.P., PCP - General Family Medicine D.N.P. [address] [phone] documented as of this encounter
--- OUTSIDE RECORDS SUMMARY | 2022-01-11 00:19 | XMS_ITS | Encounter Summary ---
:1970 Author Organization [facility] Address [address] [place] [address] Care Team Providers Name Role Phone Ro Norton APRN C.N.PRaffy, D.N.P. Primary Care Provider Reason for Visit Appointment Request (Routine) - Closed Specialty Diagnoses / Procedures Referred By Contact Refer red To Contact Referral ID Status Reason Start Date Expiration Date Visits Requ ested Visits Authorized [id number] Closed 08/07/2020 08/07/2021 1 1 Encounter Details Date Type Department Care Team Description 08/31/2020 Office Visit Department of Lubna Mcmillan Cardiovascular Medicine Michael Ansari Pulmonary in [facility] rotational moulding operator [address] [facility] Hypertension (HCC) [address] [place], [place] (Primary Dx) [place] [address] [phone] Social History Tobacco Use Types Packs/Day Years [...] do you attend taoist or Never 2021 tenriism services? Do you [...] CDT documented in this encounter Progress Notes uLbna Mcmillan M.D. - 08/31/2020 3:30 PM CDT SUBJECTIVE CHIEF COMPLAINT / REASON FOR VISIT Pulmonary hypertension HISTORY OF PRESENT ILLNESS Ms. Allison Schulz is a 50 y.o. female who presents for follow-up evaluation of pulmonary hypertension. She is a 50 y.o. female current smoker with a history of PDA status post ligation in 2007 at [facility] [place], COPD with anatomic emphysema and ongoing tobacco [...] 8. Agitated saline contrast administered. 9. No cgckk-jv-etah shunt at atrial level at rest or [...] Description 01/14/2022 Appointment Radiology Ro Norton APRN, C.N.Taylor., D.N.P. [address] [phone] (Amanda goldman) 01/27/2022 Clinical Support Integrative Medicine Haris, Iv y [address] [place], [place] [phone] (Amanda goldman) documented as of this encounter Visit Diagnoses Diagnosis Other Secondary Pulmonary Hypertension ( HCC) - Primary documented in this encounter Care Teams Dialysis Patient Care Technician Relationship Specialty Start Date End Date Ro Norton APRN, C.N.P., PCP - General Family Medicine D.N.P. [address] [phone] documented as of this encounter
--- OUTSIDE RECORDS SUMMARY | 2022-01-11 00:20 | XMS_ITS | Encounter Summary ---
:1970 Author Organization [facility] Address [address] [place] [address] Care Team Providers Name Role Phone Ro Norton APRN C.N.P., D.N.P. Primary Care Provider Encounter Details Date Type Department Care Team Description 07/16/2020 Clinical Communication Division of Pulmonary [facility] in Elan Faust M.D. [address] [place] [phone] [phone] Social History Tobacco Use Types Packs/Day Years [...] do you attend mosque or Never 2021 evangelical services? Do you [...] her COVID swab as scheduled 07/15 in [place]. I left a message for her to call to reschedule. She will need to come to [place] for a rapid COVID swab today 07/16 [...] Appointment Radiology Ro Norton APRN, C.N.P., D.N.P. [address] [phone] (Amanda rk) 01/27/2022 Clinical Support Integrative Medicine Haris, Iv y [address] [place], [place] [address] (Amanda goldman) documented as of this encounter Visit Diagnoses Not on filedocumented in this encounter Additional Health Concerns Infection Onset Date Last Indicated Resolved Time COVID19 Pending 07/14/2020 07/14/2020 08/03/2020 4:45 AM CDT documented as of this encounter Care Teams Sports Announcer Relationship Specialty Start Date End Date Ro Norton APRN, C.N.P., PCP - General Family Medicine D.N.P. [address] [phone] documented as of this encounter
--- OUTSIDE RECORDS SUMMARY | 2022-01-11 00:20 | XMS_ITS | Encounter Summary ---
:1970 Author Organization [facility] Address [address] [place] [address] Care Team Providers Name Role Phone Ro Norton APRN C.N.P., D.N.P. Primary Care Provider Encounter Details Date Type Department Care Team Description 08/20/2020 Orders Only Department of Lubna Mcmillan Hepatitis C Chronic Cardiovascular Medicine Michael Ansari (HCC) (Primary Dx) in [facility] sweet potato disintegrator [address] [facility] [address] [place] [address] [phone] Social History Tobacco Use Types Packs/Day Years [...] do you attend sikh or Never 2021 druze services? Do you [...] Appointment Radiology Ro Norton APRN, C.N.P., D.N.P. [address] [phone] (Wo rk) 01/27/2022 Clinical Support Integrative Medicine Haris, Iv y [address] [place], [place] [phone] (Wo rk) documented as of this encounter Visit Diagnoses Diagnosis Hepatitis C Chronic (HCC) - Primary documented in this encounter Additional Health Concerns Infection Onset Date Last Indicated Resolved Time COVID19 Pending 08/27/2020 08/27/2020 08/27/2020 12:09 PM CDT documented as of this encounter Care Teams Civil Engineering Teacher Relationship Specialty Start Date End Date Ro Norton APRN, C.N.P., PCP - General Family Medicine D.N.P. [address] [phone] documented as of this encounter
--- OUTSIDE RECORDS SUMMARY | 2022-01-11 00:20 | XMS_ITS | Encounter Summary ---
:1970 Author Organization [facility] Address [address] [place] [address] Care Team Providers Name Role Phone Ro Norton APRN C.N.P., D.N.P. Primary Care Provider Encounter Details Date Type Department Care Team Description 08/06/2020 Orders Only RST CCM Lubna Mcmillan Other Secondary [address] [facility] Michael Ansari Pulmonary Hypertension [place], [place] [address] [facility] (HCC) (Primary Dx) [phone] [place] [address] Social History Tobacco Use Types Packs/Day Years [...] do you attend faith or Never 2021 amish services? Do you [...] Appointment Radiology Ro Norton, MORGAN, C.N.P., D.N.P. [address] [phone] (Wo rk) 01/27/2022 Clinical Support Integrative Medicine Haris, Iv y [address] [place], [place] [phone] (Wo rk) documented as of this encounter Results SARS CoV-2 RNA, PCR, Varies Asymptomatic (08/27/2020 8:37 AM CDT) [facility] Method Time Signature SARS CoV-2 Swab, 08/27/2020 [...] Drug Administration an d is used per metal sash setter's instructions. Performance characteristics were verified by [facility] in a manner consistent with CLIA requirements. Visit the CDC website: https://www.cdc.g ov/coronavirus/ for the most recent guidelines on Coron avirus testing. Fact Sheet for Healthcare Providers: https://www.fda.gov/media/055074/downloa d Fact Sheet for Patients: https://www.fda.gov/media/366224/downloa d Specimen Anatomical Collection Method Collection Time Receive d Time (Source) Location / / Volume Laterality Varies 08/27/2020 8:37 AM 9:11 (Nasopharynx) CDT AM CDT Lubna Mcmillan M.D. LAB MICROBIOLOGY - GENERAL O RDERABLES Performing Organization Address City/State/ZIP Code Phon e Number [facility] - [address] [place], [place] [address] [facility] [place] [address] [facility] [address] documented in this encounter Visit Diagnoses Diagnosis Other Secondary Pulmonary Hypertension ( HCC) - Primary documented in this encounter Care Teams Crusher Dry Ground Mica Relationship Specialty Start Date End Date Ro Norton APRN, C.N.P., PCP - General Family Medicine D.N.P. [address] [phone] documented as of this encounter
--- OUTSIDE RECORDS SUMMARY | 2022-01-11 00:20 | XMS_ITS | Encounter Summary ---
:1970 Author Organization [facility] Address [address] [place] [address] Care Team Providers Name Role Phone Ro Nroton APRN C.N.P., D.N.P. Primary Care Provider Encounter Details Date Type Department Care Team Description 08/06/2020 Clinical Communication Division of Pulmonary [facility] in Elan Faust M.D. [address] [place] [phone] [phone] Social History Tobacco Use Types Packs/Day Years [...] do you attend jewish or Never 2021 uatsdin services? Do you [...] Appointment Radiology Ro Norton, MORGAN, C.N.P., D.N.P. [address] [phone] (Wo rk) 01/27/2022 Clinical Support Integrative Medicine Haris Iv y [address] [facility] Carlos Alberto [place] [phone] (Wo rk) documented as of this encounter Visit Diagnoses Not on filedocumented in this encounter Care Teams Welder Gas Automatic Relationship Specialty Start Date End Date Ro Norton APRN, C.N.P., PCP - General Family Medicine D.N.P. [address] [phone] documented as of this encounter
--- OUTSIDE RECORDS SUMMARY | 2022-01-11 00:20 | XMS_ITS | Encounter Summary ---
:1970 Author Organization [facility] Address [address] [place] [address] Care Team Providers Name Role Phone Ro Norton APRN, C.N.Kirsty, D.N.P. Primary Care Provider Reason for Referral Outpatient (Routine) - Closed Specialty Diagnoses / Procedures Referred By Contact Refer red To Contact Diagnoses Other Secondary Pulmonary Hypertension (HCC) Shortness Of Breath Lubna Mcmillan M.D. [facility] Procedures NM Lung Ventilation and Perfusion [address] [place] [address] Referral ID Status Reason Start Date Expiration Date Visits Requ ested Visits Authorized [id number] Closed 07/01/2020 07/01/2021 6 6 Reason for Visit Outpatient (Routine) - Closed Specialty Diagnoses / Procedures Referred By Contact Refer red To Contact Diagnoses Other Secondary Pulmonary Hypertension (HCC) Shortness Of Breath Lubna Mcmillan M.D. [facility] Procedures NM Lung Ventilation and Perfusion [address] [place] [address] Referral ID Status Reason Start Date Expiration Date Visits Requ ested Visits Authorized [id number] Closed 07/01/2020 07/01/2021 6 6 Encounter Details Date Type Department Care Team Description 08/19/2020 Hospital Encounter Department of Lubna Mcmillan Other Secondary Pulmonary Hypertension (HCC); Radiology, Giovanni M, M.D. Shortness Of Breath Building, in 200 [facility] [address] 200 [facility] [phone] [place], [place] (Work) [address] [phone] Social History Tobacco Use Types Packs/Day Years [...] do you attend taoism or Never 2021 temple services? Do you [...] Appointment Radiology Ro Norton APRN, C.N.P., D.N.P. [address] [phone] (Wo rk) 01/27/2022 Clinical Support Integrative Medicine Sohan Carballo y [address] [place], [place] [phone] (Wo rk) documented as [...] corresponds to atelectasis and/scarring noted on the [place] m[facility] CT chest on 10/22/2019. No mismatch [...] corresponds to atelectasis and/[facility]. No mismatch defects [...] dose documented in this encounter Care Teams [employer] Relationship Specialty Start Date End Date Ro Norton APRN, C.N.P., PCP - General Family Medicine D.N.P. [address] [phone] documented as of this encounter
--- OUTSIDE RECORDS SUMMARY | 2022-01-11 00:20 | XMS_ITS | Encounter Summary ---
:1970 Author Organization [facility] Address [address] [place] [address] Care Team Providers Name Role Phone Ro Norton APRN, C.N.P., D.N.P. Primary Care Provider Reason for Visit Reason Comments Social Work - General consult RST Order for [facility] Encounter Details Date Type Department Care Team Description 07/13/2020 Clinical Communication Department of Ro Norton Work - Family Medicine, MORGAN Ansari, General con sult RST [place] C.N.P., D.N.P. (Order for [facility], in [address] [address] [place], [place] [phone] [address] (Work) [phone] Social History Tobacco Use Types Packs/Day Years [...] do you attend holiness or Never 2021 holiness services? Do you [...] please have the patient contact us at [phone] and we will reinstate the order at that time. Sincerely, [facility] Online Services for Referring Providers Appointment Office documented in this encounter Plan of Treatment Upcoming Encounters Date Type Specialty Care Team Description 01/14/2022 Appointment Radiology Ro Norton APRN, C.N.P., D.N.P. [address] [phone] (Wo rk) 01/27/2022 Clinical Support Integrative Medicine Sohan Carballo y [address] [place], [place] [phone] (Wo rk) documented as of this encounter Visit Diagnoses Not on filedocumented in this encounter Additional Health Concerns Infection Onset Date Last Indicated Resolved Time COVID19 Pending 07/14/2020 07/14/2020 08/03/2020 4:45 AM CDT documented as of this encounter Care Teams Admissions Nurse Relationship Specialty Start Date End Date Ro Norton APRN, C.N.P., PCP - General Family Medicine D.N.P. [address] [phone] documented as of this encounter
--- OUTSIDE RECORDS SUMMARY | 2022-01-11 00:20 | XMS_ITS | Encounter Summary ---
:1970 Author Organization [facility] Address [address] [place] [address] Care Team Providers Name Role Phone Ro Norton APRN C.N.P., D.N.P. Primary Care Provider Encounter Details Date Type Department Care Team Description 08/19/2020 Diagnostic Division of Pulmonary Lubna Mcmillan, Other Secondary Pulmonary Hypertension (HCC); Medicine in [place] Shortness Of Breath [place] [address] [facility] [address] [place] [address] [phone] Social History Tobacco Use Types Packs/Day Years [...] do you attend voodoo or Never 2021 anabaptism services? Do you [...] Appointment Radiology Ro Norton, MORGAN, C.N.P., D.N.P. [address] [phone] (Wo rk) 01/27/2022 Clinical Support Integrative Medicine Sohan Carballo y [address] [place] [phone] (Wo rk) documented as of this encounter Procedures Procedure Name Priority Date/Time Associated Diagnosis Comme nts PUL HOME OVERNIGHT Routine 08/20/2020 Other Secondary Result s for this OXIMETRY Pulmonary Hypertension proce dure are in the ([facility]) results section. Shortness Of Breath documented in this encounter Results Home Overnight Oximetry (08/20/2020) Specimen (Source) Anatomical Location Collection Method / Collectio n Time Received Time / Laterality Volume 08/20/2020 Narrative JEAN-PIERRE MARIE EAP - 08/25/2020 1:11 PM CD T This result has an attachment that is no t available. See PDF report for results Procedure Note Eemry Ma M.D. - 08/25/2020For matting of this note might be different from the original. See PDF report for results Lubna Mcmillan M.D. PFT ORDERABLES Performing Organization Address City/State/ZIP Code Phon e Number [facility] documented in this encounter Visit Diagnoses Diagnosis Other Secondary Pulmonary Hypertension ( HCC) Shortness Of Breath documented in this encounter Care Teams Clinical Documentation Developer Relationship Specialty Start Date End Date Ro Norton APRN, C.N.P., PCP - General Family Medicine D.N.P. [phone] [place] [phone] documented as of this encounter
--- OUTSIDE RECORDS SUMMARY | 2022-01-11 00:20 | XMS_ITS | Encounter Summary ---
:1970 Author Organization [facility] Address [address] [place] [address] Care Team Providers Name Role Phone Ro Norton APRN C.N.PRaffy, D.N.P. Primary Care Provider Reason for Visit Reason Comments Patient Education Outpatient (Routine) - Closed Specialty Diagnoses / Procedures Referred By Contact Refer red To Contact Cardiovascular Disease Lubna Mcmillan [address] [address] [place] M.D. [address] [place] [address] Referral ID Status Reason Start Date Expiration Date Visits Requ ested Visits Authorized [id number] Closed 07/01/2020 07/01/2021 1 1 Encounter Details Date Type Department Care Team Description 08/21/2020 Virtual Visit Department of Lubna Mcmillan M.D. [address] [place] [address] Shortness Of Breath Cardiovascular Medicine Mikayla Castañeda, RShikha in [employer] instant potato processing supervisor [address] [place] [address] Social History Tobacco Use Types Packs/Day Years [...] do you attend episcopal or Never 2021 jew services? Do you belong to any clubs or No 02/25/2021 organizations such as episcopal groups, unions, [employer] or athletic groups, or school groups? How [...] as of this encounter Patient Instructions Patient InstructionsBoMikayla ellsworth R.NRaffy - 08/21/2020 2:00 PM CDT PRE-PROCEDURE EDUCATION [...] pm. 5. Stay within 100 miles of [place] overnight 6. Take all medications as instructed 7. Call the [facility] Service Line ([phone]) the evening before the procedure between the [...] Cardiac Catheterization or Heart Rhythm Procedure?? , [id number]. See After Visit Summary for specific instructions [...] Appointment Radiology Ro Norton APRN, C.N.P., D.N.P. [address] [phone] (Amanda goldman) 01/27/2022 Clinical Support Integrative Medicine Sohan Carballo y [address] [place], [place] [phone] (Amanda goldman) documented as of this encounter Visit Diagnoses Diagnosis Shortness Of Breath documented in this encounter Care Teams Cook Specialty Foreign Food Relationship Specialty Start Date End Date Ro Norton APRN, C.N.P., PCP - General Family Medicine D.N.P. [address] [phone] documented as of this encounter
--- OUTSIDE RECORDS SUMMARY | 2022-01-11 00:20 | XMS_ITS | Encounter Summary ---
:1970 Author Organization [facility] Address [address] [place] [address] Care Team Providers Name Role Phone Ro Norton APRN C.N.PRaffy, D.N.P. Primary Care Provider Encounter Details Date Type Department Care Team Description 08/19/2020 Hospital Encounter Department of Lubna Mcmillan Other Secondary Pulmonary Hypertension (HCC); Laboratory Medicine Michael Ansari Shortness Of Breath and Pathology, [address] [place] [address] [facility] [address] [place] [phone] [place] [address] (Work) [place], [place] [phone] [address] (Fax) [phone] Social History Tobacco Use Types Packs/Day Years [...] do you attend anabaptism or Never 2021 catholic services? Do you [...] Appointment Radiology Ro Norton APRN, C.N.P., D.N.P. [address] [phone] (Wo rk) 01/27/2022 Clinical Support Integrative Medicine Haris, Iv y [address] [place], [place] [phone] (Wo rk) documented as [...] / Quant, Serum (08/19/2020 11:02 AM CDT) [facility] Method Time Signature HCV RNA [id number] (A) Undetected 08/20/2020 [facility] Detect/Quant, IU/mL 4:16 PM CDT S Comment: Result in log IU/mL is 6.76. ----ADDITIONAL INFORMATION---- The quantification range of this assay i s 15 to 100,000,000 IU/mL (1.18 log to 8.00 log IU/mL). Testing was performe d using the sandra HCV test ([employer] with the sandra 6800 System. Specimen Anatomical Collection Method Collection Time Receive d Time (Source) Location / / Volume Laterality Blood 08/19/2020 11:02 08/19/2020 AM CDT 11:10 PM CDT Lubna Mcmillan M.D. LAB MICROBIOLOGY - BLOOD ORD ERABLES Performing Organization Address City/State/ZIP Code Phon e Number [facility] [address] NATHANIEL Faust [place] [address] [facility] [place] [address] Laboratory Medicine and Pathology [address] ARMSTRONG HIV-1/-2 Ag and Ab Screen, Plasma (08/19/2020 11:02 AM CDT) athologist Signature HIV-1/-2 Ag Negative Negative 08/19/2020 [facility] and Ab Screen, 9:25 PM [...] - BLOOD ORD ERABLES Performing Organization Address City/[facility]/ZIP Code Phon e Number [address] [place] [address] [address] SU[address] [facility] [place] [address] Laboratory Medicine and Pathology [address] [place] [address] Dr. ARMSTRONG (ABNORMAL) HCV Ab w/Reflex to HCV PCR, Serum (08/19/2020 11:02 AM CDT) athologist Signature HCV Ab, S Reactive (A) Negative 08/19/2020 [facility] 10:10 PM CDT Comment: Supplemental testing for HCV RNA is orde red to rule out active HCV infection. Lavehs-rd-nwjkhs ratio is >=8.00. Specimen Anatomical Collection Method Collection Time Receive d Time (Source) Location / / Volume Laterality Blood (Blood, 08/19/2020 11:02 08/19/2020 5:50 Venous) AM CDT PM CDT Lubna Mcmillan M.D. LAB MICROBIOLOGY - BLOOD ORD ERABLES Performing Organization Address City/State/ZIP Code Phon e Number [place] [id number] [place], [place] [address] SUPPORT [facility] [place] [address] Laboratory Medicine and Pathology [address] [place] [address] Dr. ARMSTRONG (ABNORMAL) HBc Total Ab, Serum (08/19/2020 11:02 AM CDT) Patholo gist Method Time Signature HBc Total Ab, Positive (A) Negative 08/19/2020 [facility] S 9:53 PM CDT Comment: [...] - BLOOD ORD ERADARVIN Performing Organization Address [facility] Phon e Number [facility] [address] [place] [address] [place] [address] Laboratory Medicine and Pathology [address] [place] [address] Dr. ARMSTRONG HBs Antibody, Serum (08/19/2020 11:02 AM CDT) athologist Signature HBs Antibody, Negative 08/19/2020 [facility] S 9:47 PM CDT Comment: Patient is presumed to be not immune to infection with HBV. ----REFERENCE VALUE---- Unvaccinated: Negative Vaccinated: Positive HBs Antibody, Quantitative, S <5.0 mIU/mL 08/19/2020 9:47 PM CDT [facility] Comment: ----REFERENCE VALUE---- Unvaccinated: <5.0 Vaccinated: >=12.0 Specimen Anatomical Collection Method Collection Time Receive d Time (Source) Location / / Volume Laterality Blood (Blood, 08/19/2020 11:02 08/19/2020 5:50 Venous) AM CDT PM CDT Lubna Mcmillan M.D. LAB MICROBIOLOGY - BLOOD ORD KRISTY Performing Organization Address City/[facility] Code Phon e Number [facility] [address] [place], [place] [address] SUPPORT [facility] [place] [address] Laboratory Medicine and Pathology [address] [place] [address] Dr. ARMSTRONG Hepatitis B Surface Antigen (08/19/2020 11:02 AM CDT) athologist Signature HBs Antigen, S Negative Negative 08/19/2020 [facility] 9:37 PM CDT Specimen Anatomical Collection Method Collection Time Receive d Time (Source) Location / / Volume Laterality Blood (Blood, 08/19/2020 11:02 08/19/2020 5:50 Venous) AM CDT PM CDT Lubna Mcmillan M.D. LAB MICROBIOLOGY - BLOOD ORD ERABLES Performing Organization Address City/[facility]/ZIP Code Phon e Number [facility] [address] [place], [place] [address] [facility] [place] [address] Laboratory Medicine and Pathology [address] ARMSTRONG (ABNORMAL) NT-Pro B-Type Natriuretic Peptide [...] M.D. LAB BLOOD ADD-ON Performing Organization Address City/[facility]/ZIP Code Phon e Number [facility] [address] [place], [place] [address] [facility] [place] [address] [facility] 200 [facility] Connective Tissue Diseases [place] (08/19/2020 11:02 AM CDT) athologist Signature Antinuclear Ab, 0.2 <=1.0 08/20/2020 [facility] S (Negative) 12:33 PM CDT U Comment: ----ADDITIONAL INFORMATION---- Method: Enzyme-linked immunoassay using HEp-2 nuclear extract supplemented with purified antig ens. Cyclic Citrullinated <15.6 <20.0 (Negative) U 08/20/2020 10:49 AM [facility] Peptide Ab, S CDT Interpretation SEE COMMENT 08/20/2020 12:33 PM SDS C CDT Comment: Tests for antibodies to dsDNA and JULIANE an tigens are not performed automatically unless the KETURAH r esult is > or = 3.0 U. ??Studies performed at [facility] indicate that positive KETURAH results <3.0 U are rarely a ccompanied by positive second order tests. Specimen Anatomical Collection Method Collection Time Receive d Time (Source) Location / / Volume Laterality Blood (Blood, 08/19/2020 11:02 08/20/2020 7:35 Venous) AM CDT AM CDT Lubna Mcmillan M.D. LAB BLOOD ADD-ON Performing Organization Address City/State/ZIP Code Phon e Number [facility] [address] [place], [place] [address] [facility] [place] [address] Laboratory Medicine and Pathology [address] [place]ONG (ABNORMAL) Comprehensive Metabolic Panel (08/19/2020 11:02 AM CDT) athologist Signature Potassium, S 4.2 3.6 - [...] 08/19/2020 [facility]/ mL/min/BSA 3:30 PM CDT [place] Comment: ----ADDITIONAL INFORMATION---- Estimated GFR calculated using [...] Address City/State/ZIP Code Phon e Number [facility] - [address] [place] [address] [facility] [place] [address] [facility] 200 [facility] (ABNORMAL) CBC with Differential, Blood (08/19/2020 11:02 AM CDT) [facility] gist Method Time Signature Hemoglobin 16.1 [...] Address City/State/ZIP Code Phon e Number [facility] - [address] [place], [place] [address] [facility] [place] [address] [facility] [address] documented in this encounter Visit Diagnoses Diagnosis Other Secondary Pulmonary Hypertension ( HCC) Shortness Of Breath documented in this encounter Care Teams Traffic Operations Manager Relationship Specialty Start Date End Date Ro Norton APRN, C.N.P., PCP - General Family Medicine D.N.P. [address] [phone] documented as of this encounter
--- OUTSIDE RECORDS SUMMARY | 2022-01-11 00:21 | XMS_ITS | Encounter Summary ---
:1970 Author Organization [facility] Address [address] [place] [address] Care Team Providers Name Role Phone Ro Norton APRN, C.N.P., D.N.P. Primary Care Provider Encounter Details Date Type Department Care Team Description 03/05/2020 E-Visit [facility] Express Care at [place], Laquita ramírez, MORGAN, RE: [place] [facility] the [facility] [place] on the 4th C.N .P. Floor [address] [facility] [address] [place] [phone] (Wo rk) Social History Tobacco Use Types [...] you attend oriental orthodox or Never 2021 episcopalian services? Do you [...] Appointment Radiology Ro Norton APRN, C.N.P., D.N.P. [address] [place] [phone] (Wo rk) 01/27/2022 Clinical Support Integrative Medicine Haris, Iv y [address] [place], [place] [phone] (Wo rk) documented as of this encounter Visit Diagnoses Diagnosis Edema Right Upper Eyelid - Primary documented in this encounter Care Teams Welcome Wagon Host/Hostess Relationship Specialty Start Date End Date Ro Norton APRN, C.N.P., PCP - General Family Medicine D.N.P. [address] [place] [phone] documented as of this encounter
--- OUTSIDE RECORDS SUMMARY | 2022-01-11 00:21 | XMS_ITS | Encounter Summary ---
:1970 Author Organization [facility] Address [address] [place] [address] Care Team Providers Name Role Phone Ro Norton APRN C.N.P., D.N.P. Primary Care Provider Encounter Details Date Type Department Care Team Description 06/29/2020 E-Visit [facility] Express Care Lennie Miller, RE: Express Care Online at the [facility] on MORGAN, C.N.P., for Seasonal Allergies the 4th Floor M.S.N. [address] [facility] [address] [place] [phone] [place], [place] [phone] Social History Tobacco Use Types Packs/Day Years [...] or relatives? How often do you attend lutheran or Never 2021 quaker services? Do you belong to any clubs or No 02/25/2021 organizations such as lutheran groups, unions, fraternal or athletic groups, or [...] Appointment Radiology Ro Norton APRN, C.N.P., D.N.P. [address] [place] [phone] (Amanda goldman) 01/27/2022 Clinical Support Integrative Medicine Haris, Iv y [address] [place], [place] [phone] (Amanda rk) documented as of this encounter Visit Diagnoses Diagnosis Sinusitis - Primary Rhinitis Allergic documented in this encounter Care Teams Control Panel Operator Relationship Specialty Start Date End Date Ro Norton APRN, C.N.P., PCP - General Family Medicine D.N.P. [id number] [place] [phone] documented as of this encounter
--- OUTSIDE RECORDS SUMMARY | 2022-01-11 00:21 | XMS_ITS | Encounter Summary ---
:1970 Author Organization [facility] Address [address] [place] [address] Care Team Providers Name Role Phone Ro Norton APRN, C.N.P., D.N.P. Primary Care Provider Reason for Visit Reason Comments Social Work and Cardiovascular Consults for RST Orders for [facility] Encounter Details Date Type Department Care Team Description 06/11/2020 Clinical Department of Ro Norton Work and Communication Family Medicine, MORGAN Ansari, Cardiovasc stephanie [place] C.N.P., D.N.P. Consults for [facility] Clinic, in [address] (Orders fo r [address]) [address] [place] [phone] [place], [place] [phone] (Work) [phone] Social History Tobacco Use Types Packs/Day Years [...] do you attend moravian or Never 2021 presybeterian services? Do you belong to any clubs [...] direct that person to call us at [phone]. If you have questions, please call us at [phone] or [phone]. documented in this encounter Plan of Treatment Upcoming Encounters Date Type Specialty Care Team Description 01/14/2022 Appointment Radiology Ro Norton APRN, C.N.P., D.N.P. [address] [phone] (Wo rk) 01/27/2022 Clinical Support Integrative Medicine HarisSohan y [address] [place], [place] [phone] (Wo rk) documented as of this encounter Visit Diagnoses Not on filedocumented in this encounter Additional Health Concerns Infection Onset Date Last Indicated Resolved Time COVID19 Pending 06/19/2020 06/19/2020 06/19/2020 10:46 AM CDT documented as of this encounter Care Teams Cylinder Block Hole Reliner Relationship Specialty Start Date End Date Ro Norton APRN, C.N.P., PCP - General Family Medicine D.N.P. [address] [phone] documented as of this encounter
--- OUTSIDE RECORDS SUMMARY | 2022-01-11 00:21 | XMS_ITS | Encounter Summary ---
:1970 Author Organization [facility] Address [address] [place] [address] Care Team Providers Name Role Phone Ro Norton APRN C.N.PRaffy, D.N.P. Primary Care Provider Reason for Visit Reason Comments Follow-up Outpatient (Routine) - Closed Specialty Diagnoses / Procedures Referred By Contact Refer red To Contact Orthopedic Surgery Angelita Buchanan APRN, [facility] Selina C.N.PRaffy, M.S.N. [address] [place] [phone] Referral ID Status Reason Start Date Expiration Date Visits Requ ested Visits Authorized [id number] Closed 02/24/2020 02/23/2021 1 1 Encounter Details Date Type Department Care Team Description 02/26/2020 [facility] [address] [place] [phone] Fracture Tibial Orthopedic Surgery in Angelita Buchanan APRN C.N.PRaffy, M.S.N. [address] [place] [phone] Plateau Closed [place], [place] Subsequent Left [address] [facility] (Primary Dx) [place] [address] Social History Tobacco Use Types [...] do you attend rastafarian or Never 2021 gnosticist services? Do you [...] #1 Fracture Tibial Plateau Closed Subsequent Left SION SUPPORT MANAGER Felicity Hansen R.N. - 02/26/2020 8:30 AM CST Nursing Note Patient fitted for a Knee Immobilzer. 20 inch [place] Knee Immobilizer applied to left leg. Instructed to wear over clothing. Printed materials supplied by the product company sent with patient. Patient instructed on proper use of device. Patient taught. Learning assessment no barriers present, patient ready to learn. Patient verbalizedunderstanding and able to teach back. SION SUPPORT MANAGER documented in this encounter Plan of Treatment Upcoming Encounters Date Type Specialty Care Team Description 01/14/2022 Appointment Radiology Ro Norton APRN, C.N.P., D.N.P. [address] [phone] (Wo rk) 01/27/2022 Clinical Support Integrative Medicine Haris, Iv y [address] [place], [place] [phone] (Wo rk) documented as of this encounter Visit Diagnoses Diagnosis Fracture Tibial Plateau Closed Subsequen t Left - Primary documented in this encounter Care Teams Meter Tester Primary Relationship Specialty Start Date End Date Ro Norton APRN, C.N.P., PCP - General Family Medicine D.N.P. [address] [phone] documented as of this encounter
--- OUTSIDE RECORDS SUMMARY | 2022-01-11 00:21 | XMS_ITS | Encounter Summary ---
:1970 Author Organization [facility] Address [address] [place] [address] Care Team Providers Name Role Phone Ro Norton APRN C.N.PRaffy, D.N.P. Primary Care Provider Reason for Visit Reason Comments Med Refill Encounter Details Date Type Department Care Team Description 06/22/2020 Refill Department of Family Medicine, Ro Norton APRN, Med Refill [facility], in [place] C .N.PRaffy, D.N.P. [address] [phone] (Wo rk) Social History Tobacco Use Types [...] do you attend sikhism or Never 2021 mandaeism services? Do you [...] Appointment Radiology Ro Norton APRN, C.N.P., D.N.P. [address] [phone] (Amanda goldman) 01/27/2022 Clinical Support Integrative Medicine Haris, Iv y [address] [place], [place] [phone] (Wo rk) documented as of this encounter Visit Diagnoses Not on filedocumented in this encounter Care Teams Hospital Account Manager Relationship Specialty Start Date End Date Ro Norton APRN, C.N.P., PCP - General Family Medicine D.N.P. [address] [phone] documented as of this encounter
--- OUTSIDE RECORDS SUMMARY | 2022-01-11 00:21 | XMS_ITS | Encounter Summary ---
:1970 Author Organization [facility] Address [address] [place] [address] Care Team Providers Name Role Phone Ro Norton APRN C.N.P., D.N.P. Primary Care Provider Reason for Visit Reason Comments Shortness of Breath Encounter Details Date Type Department Care Team Description 06/19/2020 Emergency [facility] Adrian Rea, Chronic Obstructive Department P.A.-C. Pulmonary Disease (HCC) [address] [place] [address] [place] [address] (Primary Dx) [place] [phone] (Wo rk) Social History Tobacco Use Types [...] do you attend spiritism or Never 2021 holiness services? Do you [...] Care Everywhere. Chronic Obstructive Pulmonary Disease Exacerbation (Arabic)documented in this encounter Medications at Time of [...] 0931 06/19/20 0931 -- -- 06/19/20 0931 06/19/20930 36 ??C 101 112/85 (!) 89 % [...] 1048 Chronic Obstructive Pulmonary Disease (HCC) Adrian Rea, PRaffyA.Anita 06/19/20 1050 Annie Pugh R.N. - 06/19/2020 9:43 AM CDT Pt presents to ED with c/o increased work of breathing. Pt has hx of COPD. Denies fevers, chills, chest pain Annie Pugh R.N. 06/19/20 0944 documented in this encounter Plan of Treatment Upcoming Encounters Date Type Specialty Care Team Description 01/14/2022 Appointment Radiology Ro Norton, MORGAN, C.N.P., D.N.P. [address] [phone] (Wo rk) 01/27/2022 Clinical Support Integrative Medicine Haris, Iv y [address] [place] [phone] (Wo rk) documented as of [...] Rapid, V Symptomatic (06/19/2020 10:17 AM CDT) [facility] Method Time Signature SARS CoV-2, Undetected Undetected 06/19/2020 CNFL PCR, Rapid, V 10:46 AM CDT Comment: ----ADDITIONAL INFORMATION---- This RT-PCR test was performed using the Trey SARS-CoV-2 and Influenza A/B Reagent assay from [employer], which has received Emergency Use Authori zation(EUA) by the U.S. Food and Drug Administration . Fact sheets for this Emergency Use Autho rization (EUA) assay can be found at the following link s: For Healthcare Providers: https://www.fda.gov/media/789188/downloa d For Patients: https://www.fda.gov/media/900807/downloa d SARS Coronavirus 2, Source, Swab, Nasopharynx 05/23 10:21 AM CDT CNFL Rapid Specimen Anatomical Collection Method Collection Time Receive d Time (Source) Location / / Volume Laterality Varies 06/19/2020 10:17 06/19/2020 (Nasopharynx) AM CDT 10:21 AM CDT Adrian Rea P.A.-C. LAB MICROBIOLOGY - GENERAL O RDERABLES Performing Organization Address City/State/ZIP Code Phon e Number [id number] [place] [address] [place] [address] System in [place] [address] [address] DX Chest AP or PA and [...] as of this encounter Care Teams Food Beverage Manager Relationship Specialty Start Date End Date Ro Norton APRN, C.N.P., PCP - General Family Medicine D.N.P. [address] [phone] documented as of this encounter
--- OUTSIDE RECORDS SUMMARY | 2022-01-11 00:21 | XMS_ITS | Encounter Summary ---
:1970 Author Organization [facility] Address [address] [place] [address] Care Team Providers Name Role Phone Ro Norton APRN, C.N.P., D.N.P. Primary Care Provider Encounter Details Date Type Department Care Team Description 06/23/2020 Orders Only [facility] PCP [facility] MNT Ro Norton APRN, C.N.P., D.N.P. [address] [place] [phone] (Wo rk) Social History Tobacco Use [...] many times do you More than three edvon es a week 02/25/2021 talk on the phone with family, friends, or neighbors? How often do you get together with friends More than three t imes a week 02/25/2021 or relatives? How often do you attend pentecostalism or Never 2021 anabaptism services? Do you [...] Appointment Radiology Ro Norton APRN, C.N.P., D.N.P. [address] [phone] (Wo rk) 01/27/2022 Clinical Support Integrative Medicine Haris, Sohan y [address] [place], [place] [phone] (Wo rk) documented as of this encounter Visit Diagnoses Not on filedocumented in this encounter Care Teams Coat Feller Relationship Specialty Start Date End Date Ro Norton APRN, C.N.P., PCP - General Family Medicine D.N.P. [address] [phone] documented as of this encounter
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
--- OUTSIDE RECORDS SUMMARY | 2022-01-11 00:21 | XMS_ITS | Encounter Summary ---
:1970 Author Organization [facility] Address [address] [place] [address] Care Team Providers Name Role Phone Ro Norton APRN C.N.PRaffy, D.N.P. Primary Care Provider Encounter Details Date Type Department Care Team Description 02/26/2020 Hospital Encounter Department of Angelita Buchanan Radiology, [facility] M.S.N. Subsequent [place], [place] [address] [facility] [address] [place] [phone] Social History Tobacco Use Types Packs/Day Years [...] do you attend anabaptism or Never 2021 nondenominational services? Do you [...] Appointment Radiology Ro Norton APRN, C.N.P., D.N.P. [address] [place] [phone] (Wo rk) 01/27/2022 Clinical Support Integrative Medicine Haris, Iv y [address] [facility] [place] [phone] (Wo rk) documented as of this encounter Procedures Procedure Name Priority Date/Time Associated Comments Diagnosis DX KNEE LEFT 2 RAD - Routine 02/26/2020 7:55 Fracture Tibial Result s for this VIEWS (most inpatients AM RECEIVING TANK OPERATOR Plateau Closed procedure are in and all Subsequent Left the results outpatients) section. documented in this encounter Results DX Knee Left 2 Views (02/26/2020 7:55 AM RECEIVING TANK OPERATOR) Anatomical Region Laterality Modality Lower Extremity, Knee, Musculoskeletal RST LOS, Left Digital Radiography Musculoskeletal ARZ LOS, Muskuloskeletal FLA LOS Specimen (Source) Anatomical Collection Method Collection Time Re ceived Time Location / / Volume Laterality 02/26/2020 8:08 AM RECEIVING TANK OPERATOR Impressions 02/26/2020 8:37 AM RECEIVING TANK OPERATOR Medial plate and screw fixation and interposition cement across a comminuted intra-articular left tibial p lateau fracture, with interval healing since 01/21/2020. The fracture lines are partially visible. Stable alignment. No radiographic evidence of hardware loosen ing, migration or fracture. Narrative 02/26/2020 8:37 AM RECEIVING TANK OPERATOR EXAM: ??DX KNEE LEFT 2 VIEWS Procedure [...] loosen ing, migration or fracture. Angelita Buchanan APRN, C.N.P., M.S.N. IMG DIAGNOSTIC QUE GING PROCEDURES documented in this encounter Visit Diagnoses Diagnosis Fracture Tibial Plateau Closed Subsequen t Left documented in this encounter Care Teams Development Advisor Relationship Specialty Start Date End Date Ro Norton APRN C.N.P., PCP - General Family Medicine D.N.P. [address] [phone] documented as of this encounter
--- OUTSIDE RECORDS SUMMARY | 2022-01-11 00:21 | XMS_ITS | Encounter Summary ---
:1970 Author Organization [facility] Address [address] [place] [address] Care Team Providers Name Role Phone Ro Norton APRN, C.N.P., D.N.P. Primary Care Provider Reason for Visit Reason Comments Follow-up Outpatient (Routine) - Closed Specialty Diagnoses / Procedures Referred By Contact Refer red To Contact Family Medicine Diagnoses Chronic Obstructive Pulmonary Disease Exacerbation (HCC) Ro Norton, [facility] MORGAN, C.N.P., D.N.P. [address] [place] [phone] Referral ID Status Reason Start Date Expiration Date Visits Requ ested Visits Authorized [id number] Closed 05/07/2019 05/06/2020 1 1 Encounter Details Date Type Department Care Team Description 06/05/2020 Office Visit Department of Family Ro Norton, Ot her Secondary Pulmonary Hypertension (HCC) (Primary Dx); Medicine, Law MORA, C.N.P., Chronic Ob structive Pulmonary Disease Exacerbation (HCC); [facility], in D.N.P. Anomaly Heart Congenital (HCC) [address] [phone] Social History Tobacco Use Types Packs/Day [...] do you attend sikh or Never 2021 islam services? Do you [...] Other Secondary Pulmonary Hypertension (HCC) She has ip counsel ordered scheduled for July 01. - [...] Appointment Radiology Ro Norton APRN, C.N.P., D.N.P. [address] [phone] (Wo rk) 01/27/2022 Clinical Support Integrative Medicine Harsi, Iv y [address] [place], [place] [phone] (Wo rk) documented as of this encounter Visit Diagnoses Diagnosis Other Secondary Pulmonary Hypertension ( HCC) - Primary Chronic Obstructive Pulmonary Disease Ex acerbation (HCC) Anomaly Heart Congenital (HCC) documented in this encounter Care Teams [place]ombstone Setter Relationship Specialty Start Date End Date Ro Norton APRN, C.N.P., PCP - General Family Medicine D.N.P. [address] [phone] documented as of this encounter
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
--- OUTSIDE RECORDS SUMMARY | 2022-01-11 00:21 | XMS_ITS | Encounter Summary ---
:1970 Author Organization [facility] Address [address] [place] [address] Care Team Providers Name Role Phone Ro Norton APRN C.N.Kirsty, Katelynn.N.P. Primary Care Provider Encounter Details Date Type Department Care Team Description 06/01/2020 Clinical Communication Department of [facility] Ro Norton, Medicine, [place] MORGAN C.N.PRaffy, Clinic, in [place] [address] [phone] Social History Tobacco Use Types Packs/Day Years [...] do you attend nondenominational or Never 2021 baptism services? Do you [...] this encounter Miscellaneous Notes Telephone Encounter - Venufrank Andreea Ansari - 06/01/2020 5:59 PM CDT Nitish [...] the phone between 7 am-6 pm, Monday-Monday. [place]: [phone] [place]: [phone] [place]: [phone] [place]: [phone] [place]: [phone] [place]: [phone] [facility]: [phone] Dc Partida [place], [place], or [place] clinics: [phone] [place]:[phone] [place]: [phone] Thank you for trusting your health care to [facility]. documented in this encounter Plan of Treatment Upcoming Encounters Date Type Specialty Care Team Description 01/14/2022 Appointment Radiology Ro Norton APRN, C.N.P., D.N.P. [address] [phone] (Wo rk) 01/27/2022 Clinical Support Integrative Medicine Haris, Iv y [address] [place], [place] [phone] (Amanda goldman) documented as of this encounter Visit Diagnoses Not on filedocumented in this encounter Care Teams Terminal Block Assembler Relationship Specialty Start Date End Date Ro Norton APRN, C.N.P., PCP - General Family Medicine D.N.P. [address] [phone] documented as of this encounter
--- OUTSIDE RECORDS SUMMARY | 2022-01-11 00:21 | XMS_ITS | Encounter Summary ---
:1970 Author Organization [facility] Address [address] [place] [address] Care Team Providers Name Role Phone Ro Norton APRN, C.N.P., D.N.P. Primary Care Provider Encounter Details Date Type Department Care Team Description 05/29/2020 Hospital Encounter Department of Ro Norton c Obstructive Pulmonary Disease Without Exacerbation (HCC); Radiology in [place] Ansari APRN, Other Se condary Pulmonary Hypertension (HCC); [place], [place] C.N.P., D.N.P. Shortness Of Breath; [address] [place] [phone] [place] [address] [place], [place], [address] [place] [address] Social History Tobacco Use Types Packs/Day Years [...] do you attend amish or Never 2021 adventist services? Do you belong to any clubs [...] Appointment Radiology Ro Norton APRN, C.N.P., D.N.P. [address] [phone] (Wo rk) 01/27/2022 Clinical Support Integrative Medicine Haris, Iv y [address] [place], [place] [phone] (Wo rk) documented as [...] size unchanged. No new consolidation or effusion. Bolivar Borden APRN.N.Taylor., D.N.P. IMG DIAGNOSTIC IM AGING PROCEDURES documented in this encounter Visit Diagnoses Diagnosis Chronic Obstructive Pulmonary Disease Wi thout Exacerbation (HCC) Other Secondary Pulmonary Hypertension ( HCC) Shortness Of Breath Fatigue documented in this encounter Care Teams Stain Remover Relationship Specialty Start Date End Date Ro Norton APRN, C.N.P., PCP - General Family Medicine D.N.P. [address] [phone] documented as of this encounter
--- OUTSIDE RECORDS SUMMARY | 2022-01-11 00:21 | XMS_ITS | Encounter Summary ---
:1970 Author Organization [facility] Address [address] [place] [address] Care Team Providers Name Role Phone Ro Norton APRN C.N.Kirsty, Katelynn.N.P. Primary Care Provider Encounter Details Date Type Department Care Team Description 06/04/2020 Clinical Communication Department of [facility] Ro Norton, Medicine, [place] MORGAN C.N.PRaffy, Clinic, in [place] [address] [phone] Social History Tobacco Use Types Packs/Day Years [...] do you attend faith or Never 2021 orthodox services? Do you [...] Appointment Radiology Ro Norton APRN, C.N.P., D.N.P. [address] [phone] (Amanda rk) 01/27/2022 Clinical Support Integrative Medicine Haris, Iv y [address] [place], [place] [phone] (Wo rk) documented as of this encounter Visit Diagnoses Not on filedocumented in this encounter Care Teams Client Director Relationship Specialty Start Date End Date Ro Norton APRN, C.N.P., PCP - General Family Medicine D.N.P. [address] [phone] documented as of this encounter
--- OUTSIDE RECORDS SUMMARY | 2022-01-11 00:21 | XMS_ITS | Encounter Summary ---
:1970 Author Organization [facility] Address [address] [place] [address] Care Team Providers Name Role Phone Ro Norton APRN, C.N.P., D.N.P. Primary Care Provider Encounter Details Date Type Department Care Team Description 05/07/2020 Orders Only [facility] PCP [facility] Sa rosalinda Erickson M.D. [address] [place], [place] [phone] (Wo rk) Social History [...] Appointment Radiology Ro Norton APRN, C.N.P., D.N.P. [address] [place] [phone] (Wo rk) 01/27/2022 Clinical Support Integrative Medicine Haris, Iv y [address] [place], [place] [phone] (Wo rk) documented as of this encounter Visit Diagnoses Not on filedocumented in this encounter Care Teams Vice President Supply Chain Relationship Specialty Start Date End Date Ro Norton APRN, C.N.P., PCP - General Family Medicine D.N.P. [address] [phone] documented as of this encounter
--- OUTSIDE RECORDS SUMMARY | 2022-01-11 00:22 | XMS_ITS | Encounter Summary ---
:1970 Author Organization [facility] Address [address] [place] [address] Care Team Providers Name Role Phone oR Norton APRN, C.N.P., D.N.P. Primary Care Provider Reason for Visit Reason Comments COVID Inquiry Encounter Details Date Type Department Care Team Description 11/12/2019 Clinical Communication Hospital Outpatient Rebecca Upton, COVID Inquiry Procedure Center in [place], [place] [phone] [address] [facility] (Work) [place] [address] Social History Tobacco Use Types [...] do you attend sabianist or Never 2021 yazidi services? Do you belong to any clubs [...] or slept in a long-term (including now)? Sex Assigned at Date Recorded Female 10/14/2020 12:54 PM CDT documented as of this encounter Plan of Treatment Upcoming Encounters Date Type Specialty Care Team Description 01/14/2022 Appointment Radiology Ro Norton APRN, C.N.P., D.N.P. [address] [phone] (Wo rk) 01/27/2022 Clinical Support Integrative Medicine Haris, Iv y [address] [place], [place] [phone] (Wo rk) documented as of this encounter Visit Diagnoses Not on filedocumented in this encounter Care Teams Vascular Manager Relationship Specialty Start Date End Date Ro Norton APRN, C.N.P., PCP - General Family Medicine D.N.P. [address] [phone] documented as of this encounter
--- OUTSIDE RECORDS SUMMARY | 2022-01-11 00:22 | XMS_ITS | Encounter Summary ---
:1970 Author Organization [facility] Address [address] [place] [address] Care Team Providers Name Role Phone Ro Norton APRN C.N.P., D.N.P. Primary Care Provider Encounter Details Date Type Department Care Team Description 01/07/2020 Clinical Communication Department of Raudel Lewis Orthopedic Surgery in [place], [place] [address] [place] [address] [address] [place] [phone] Social History Tobacco Use Types Packs/Day Years [...] do you attend advent or Never 2021 mandaen services? Do you [...] Appointment Radiology Ro Norton APRN, C.N.P., D.N.P. [address] [phone] (Wo rk) 01/27/2022 Clinical Support Integrative Medicine Haris, Iv y [address] [place], [place] [phone] (Wo rk) documented as of this encounter Visit Diagnoses Not on filedocumented in this encounter Care Teams Mass Communications Professor Relationship Specialty Start Date End Date Ro Norton APRN, C.N.P., PCP - General Family Medicine D.N.P. [address] [phone] documented as of this encounter
--- OUTSIDE RECORDS SUMMARY | 2022-01-11 00:22 | XMS_ITS | Encounter Summary ---
:1970 Author Organization [facility] Address [address] [place] [address] Care Team Providers Name Role Phone Ro Norton APRN, C.N.P., D.N.P. Primary Care Provider Reason for Visit Reason Comments COVID Inquiry Encounter Details Date Type Department Care Team Description 12/12/2019 Clinical Communication Hospital Outpatient Rebecca Upton, COVID Inquiry Procedure Center in [place], [place] [phone] [address] [facility] [place] (Work) [place] [address] Social History Tobacco Use Types [...] do you attend cheondoism or Never 2021 restoration services? Do you [...] Appointment Radiology Ro Norton APRN, C.N.P., D.N.P. [address] [phone] (Wo rk) 01/27/2022 Clinical Support Integrative Medicine Haris, Iv y [address] [place], [place] [phone] (Wo rk) documented as of this encounter Visit Diagnoses Not on filedocumented in this encounter Care Teams Micro Computer Data Processor Relationship Specialty Start Date End Date Ro Norton APRN, C.N.P., PCP - General Family Medicine D.N.P. [address] [phone] documented as of this encounter
--- OUTSIDE RECORDS SUMMARY | 2022-01-11 00:22 | XMS_ITS | Encounter Summary ---
:1970 Author Organization [facility] Address [address] [place] [address] Care Team Providers Name Role Phone Ro Norton APRN C.N.PRaffy, D.N.P. Primary Care Provider Reason for Referral Outpatient (Routine) - Closed Specialty Diagnoses / Procedures Referred By Contact Refer red To Contact Orthopedic Surgery Kelli Mojica [place] [address] [place] M.D., M.E. [address] [place] [phone] Referral ID Status Reason Start Date Expiration Date Visits Requ ested Visits Authorized [id number] Closed 12/13/2019 12/12/2020 1 1 Reason for Visit Reason Comments Follow-up Outpatient (Routine) - Closed Specialty Diagnoses / Procedures Referred By Contact Refer red To Contact Orthopedic Surgery Angelita Buchanan APRN, [address] [place] C.N.P., M.S.N. [address] [place] [phone] Referral ID Status Reason Start Date Expiration Date Visits Requ ested Visits Authorized [id number] Closed 10/24/2019 10/23/2020 1 1 Encounter Details Date Type Department Care Team Description 12/13/2019 [facility] Wander Brush T ibial Orthopedic Surgery in [place], [place] 200 [facility] Subsequent Left [address] [place], [place] (Primary Dx) [place] [phone] Social History Tobacco Use Types Packs/Day Years [...] do you attend synagogue or Never 2021 adventism services? Do you [...] Appointment Radiology Ro Norton APRN, C.N.P., D.N.P. [address] [phone] (Wo rk) 01/27/2022 Clinical Support Integrative Medicine Sohan Carballo y [address] [facility] Carlos Alberto [place] [phone] (Wo rk) Scheduled Referrals Name Type Priority Associated Order Schedule Diagnoses Orthopedic Surgery Outpatient Referral Routine Ex pected: office visit 01/24/2020 (clinic) (Approximate), Expires: 12/12/2022 documented as of this encounter Results DX Knee Left Standing 1-2 Views (01/21/2020 9:29 AM [facility]) Anatomical Region Laterality Modality Lower Extremity, Knee, Musculoskeletal RST LOS, Left Digital Radiography Musculoskeletal ARZ LOS, Muskuloskeletal FLA LOS Specimen (Source) Anatomical Collection Method Collection Time Re ceived Time Location / / Volume Laterality 01/21/2020 9:32 AM [facility] Impressions 01/21/2020 9:37 AM [facility] Interposition cement and medial plate and screw fixation across a healing comminuted intra-articular left tibial plateau fracture. No change in alignment. Narrative 01/21/2020 9:37 AM [facility] EXAM: ??DX KNEE LEFT STANDING 1-2 VIEWS [...] Left documented in this encounter Care Teams Director Of Optimization Relationship Specialty Start Date End Date Ro Norton APRN, C.N.P., PCP - General Family Medicine D.N.P. [address] [place] [phone] documented as of this encounter
--- OUTSIDE RECORDS SUMMARY | 2022-01-11 00:22 | XMS_ITS | Encounter Summary ---
:1970 Author Organization [facility] Address [address] [place] [address] Care Team Providers Name Role Phone Ro Norton APRN, C.N.P., D.N.P. Primary Care Provider Reason for Visit Reason Comments COVID Inquiry Encounter Details Date Type Department Care Team Description 10/29/2019 Clinical Communication Hospital Outpatient Christopher Amin COVID Inquiry Procedure Center in [place], [place] [phone] [address] [facility] (Work) [place] [address] Social History Tobacco Use Types [...] do you attend pentecostalism or Never 2021 lutheran services? Do you [...] Appointment Radiology Ro Norton APRN, C.N.P., D.N.P. [address] [phone] (Wo rk) 01/27/2022 Clinical Support Integrative Medicine Haris, Iv y [address] [place], [place] [phone] (Wo rk) documented as of this encounter Visit Diagnoses Not on filedocumented in this encounter Care Teams Glaciologist Relationship Specialty Start Date End Date Ro Norton APRN, C.N.P., PCP - General Family Medicine D.N.P. [address] [phone] documented as of this encounter
--- OUTSIDE RECORDS SUMMARY | 2022-01-11 00:22 | XMS_ITS | Encounter Summary ---
:1970 Author Organization [facility] Address [address] [place] [address] Care Team Providers Name Role Phone Ro Norton APRN, C.NDean, D.N.P. Primary Care Provider Reason for Referral Outpatient (Routine) - Closed Specialty Diagnoses / Procedures Referred By Contact Refer red To Contact Orthopedic Surgery Angelita Buchanan APRN, [place] [facility] [place].N.Kirsty, M.S.N. 200 [place] [address] Referral ID Status Reason Start Date Expiration Date Visits Requ ested Visits Authorized [id number] Closed 02/24/2020 02/23/2021 1 1 Scheduling Instructions Sems - est - 745 x-rays, 830 am eval T CLUB MANAGER Encounter Details Date Type Department Care Team Description 02/24/2020 Orders Only Department of Angelita Buchanan, Fracture T ibial Orthopedic Surgery in [place] MORA.NDean, Plate au Closed [place], [place] M.S.N. Subsequent Left 1216 [facility] 200 [facility] (Primary Dx) [place] [address] [phone] Social History Tobacco Use Types Packs/Day Years [...] do you attend yarsanism or Never 2021 mu-ism services? Do you [...] Appointment Radiology Ro Norton APRN, C.N.P., D.N.P. [address] [phone] (Wo rk) 01/27/2022 Clinical Support Integrative Medicine Sohan Carballo 701 [place], [place] [phone] (Wo rk) Scheduled Referrals Name Type Priority Associated Order Schedule Diagnoses Orthopedic Surgery Outpatient Referral Routine Ex pected: office visit 02/26/2020 (clinic) (Approximate), Expires: 02/23/2023 documented as of this encounter Results DX Knee Left 2 Views (02/26/2020 7:55 AM NIGHT CLUB MANAGER) Anatomical Region Laterality Modality Lower Extremity, Knee, Musculoskeletal RST LOS, Left Digital Radiography Musculoskeletal ARZ LOS, Muskuloskeletal FLA LOS Specimen (Source) Anatomical Collection Method Collection Time Re ceived Time Location / / Volume Laterality 02/26/2020 8:08 AM NIGHT CLUB MANAGER Impressions 02/26/2020 8:37 AM NIGHT CLUB MANAGER Medial plate and screw fixation and interposition cement across a comminuted intra-articular left tibial p lateau fracture, with interval healing since 01/21/2020. The fracture lines are partially visible. Stable alignment. No radiographic evidence of hardware loosen ing, migration or fracture. Narrative 02/26/2020 8:37 AM NIGHT CLUB MANAGER EXAM: ??DX KNEE LEFT 2 VIEWS Procedure [...] Left documented in this encounter Care Teams Creative Arts Music Therapist Relationship Specialty Start Date End Date Ro Norton APRN, C.N.P., PCP - General Family Medicine D.N.P. [address] [place] [phone] documented as of this encounter
--- OUTSIDE RECORDS SUMMARY | 2022-01-11 00:22 | XMS_ITS | Encounter Summary ---
:1970 Author Organization [facility] Address [address] [place] [address] Care Team Providers Name Role Phone Ro Norton APRN C.N.Kirsty, D.N.P. Primary Care Provider Encounter Details Date Type Department Care Team Description 11/15/2019 Orders Only Department of Orthopedic Serafin Lang M.D. Surgery in [place], [address] [place] [address] [place] [phone] [place] [address] [phone] Social History Tobacco Use Types Packs/Day Years [...] do you attend yarsani or Never 2021 caodaism services? Do you [...] Appointment Radiology Ro Norton APRN, C.N.P., D.N.P. [address] [phone] (Wo rk) 01/27/2022 Clinical Support Integrative Medicine [place], Sohan y 701 [place], [place] [phone] (Wo rk) documented as of this encounter Visit Diagnoses Not on filedocumented in this encounter Care Teams Grinding Supervisor Relationship Specialty Start Date End Date Ro Norton APRN, C.N.P., PCP - General Family Medicine D.N.P. [address] [phone] documented as of this encounter
--- OUTSIDE RECORDS SUMMARY | 2022-01-11 00:22 | XMS_ITS | Encounter Summary ---
:1970 Author Organization [facility] Address [address] [place] [address] Care Team Providers Name Role Phone Ro Norton APRN C.N.P., D.N.P. Primary Care Provider Encounter Details Date Type Department Care Team Description 01/21/2020 Hospital Encounter Department of [place], Fracture Tibial Radiology, Jose Vazquez M.D., [facility], in [place]. Subsequent Left [place], [address] [place], [place] [address] [facility] [address] [place], [place] [phone] [address] (Work) [phone] Social History Tobacco Use Types Packs/Day Years [...] do you attend shinto or Never 2021 jew services? Do you [...] Appointment Radiology Ro Norton APRN, C.N.P., D.N.P. [address] [place] [phone] (Wo rk) 01/27/2022 Clinical Support Integrative Medicine Haris, Iv y 701 [place], [place] [phone] (Wo rk) documented as of this encounter Procedures Procedure Name Priority Date/Time Associated Comments Diagnosis DX KNEE LEFT RAD - Routine 01/21/2020 9:29 Fracture Tibial Results for this STANDING 1-2 (most inpatients AM CHIEF QUALITY OFFICER Plateau Closed procedure are in VIEWS and all Subsequent Left the results outpatients) section. documented in this encounter Results DX Knee Left Standing 1-2 Views (01/21/2020 9:29 AM CHIEF QUALITY OFFICER) Anatomical Region Laterality Modality Lower Extremity, Knee, Musculoskeletal RST LOS, Left Digital Radiography Musculoskeletal ARZ LOS, Muskuloskeletal FLA LOS Specimen (Source) Anatomical Collection Method Collection Time Re ceived Time Location / / Volume Laterality 01/21/2020 9:32 AM CHIEF QUALITY OFFICER Impressions 01/21/2020 9:37 AM CHIEF QUALITY OFFICER Interposition cement and medial plate and screw fixation across a healing comminuted intra-articular left tibial plateau fracture. No change in alignment. Narrative 01/21/2020 9:37 AM CHIEF QUALITY OFFICER EXAM: ??DX KNEE LEFT STANDING 1-2 VIEWS [...] Left documented in this encounter Care Teams Palaeontologist Relationship Specialty Start Date End Date Ro Norton APRN, C.N.P., PCP - General Family Medicine Katelynn.N.P. [address] [phone] documented as of this encounter
--- OUTSIDE RECORDS SUMMARY | 2022-01-11 00:22 | XMS_ITS | Encounter Summary ---
:1970 Author Organization [facility] Address [address] [place] [address] Care Team Providers Name Role Phone Ro Norton APRN C.N.PRaffy, D.N.P. Primary Care Provider Encounter Details Date Type Department Care Team Description 12/24/2019 Orders Only Department of [place], Angelita Conde, Fracture T ibial Orthopedic Surgery in [place], C.N.PRaffy, Plate au Closed [place], [place] M.S.N. Subsequent Left [address] (Primary Dx) [place] [address] [phone] Social History Tobacco Use Types Packs/Day Years [...] do you attend temple or Never 2021 yazidism services? Do you [...] Appointment Radiology Ro Norton APRN, C.N.P., D.N.P. [address] [phone] (Amanda rk) 01/27/2022 Clinical Support Integrative Medicine Haris, Iv y 701 [place], [place] [phone] (Wo rk) documented as of this encounter Visit Diagnoses Diagnosis Fracture Tibial Plateau Closed Subsequen t Left - Primary documented in this encounter Care Teams Touch Up Painter Hand Relationship Specialty Start Date End Date Ro Norton APRN, C.N.P., PCP - General Family Medicine D.N.P. [address] [phone] documented as of this encounter
--- OUTSIDE RECORDS SUMMARY | 2022-01-11 00:22 | XMS_ITS | Encounter Summary ---
:1970 Author Organization [facility] Address [address] [place] [address] Care Team Providers Name Role Phone Ro Norton APRN, C.NDean, D.N.P. Primary Care Provider Reason for Referral Outpatient (Routine) - Closed Specialty Diagnoses / Procedures Referred By Contact Refer red To Contact Diagnoses Fracture Tibial Plateau Closed Subsequent Left Angelita Buchanan APRN, Procedures Suture Removal C.N.P., M.S.N. [address] [place] [phone] Referral ID Status Reason Start Date Expiration Date Visits Requ ested Visits Authorized [id number] Closed 11/13/2019 11/12/2020 1 1 Reason for Visit Reason Comments Follow-up Outpatient (Routine) - Closed Specialty Diagnoses / Procedures Referred By Contact Refer red To Contact Orthopedic Surgery Angelita Buchanan APRN, [place] [facility] C.N.P., M.S.N. [address] [place] [phone] Referral ID Status Reason Start Date Expiration Date Visits Requ ested Visits Authorized [id number] Closed 10/24/2019 10/23/2020 1 1 Encounter Details Date Type Department Care Team Description 11/13/2019 Office Visit Department of [facility], Raudel Betancourt M.D. [address] [place] [phone] Fracture Tibial Orthopedic Surgery in Angelita Buchanan MOR[place] Conde C.N.P., M.S.N. [address] [place] [address] Plateau Closed [place], [place] Subsequent Left [address] [facility] (Primary Dx) [place] [phone] Social History Tobacco Use Types Packs/Day Years [...] do you attend yazidi or Never 2021 sikh services? Do you [...] instructions: We will see her back on October 23rd for x-rays and evaluation. We discussed pain [...] Appointment Radiology Ro Norton APRN C.N.P., D.N.P. [address] [phone] (Wo rk) 01/27/2022 Clinical Support Integrative Medicine Haris, Iv y [address] [place], [place] [phone] (Amanda goldman) Scheduled Orders Name Type Priority Associated Diagnoses Order S chedule Suture Removal Procedures Routine Fracture Tibial Plateau Cl osed Ordered: 11/13/2019 Subsequent Left documented as of this encounter Visit Diagnoses Diagnosis Fracture Tibial Plateau Closed Subsequen t Left - Primary documented in this encounter Care Teams Director Of Pupil Personnel Program Relationship Specialty Start Date End Date Ro Norton APRN, C.N.P., PCP - General Family Medicine D.N.P. [address] [phone] documented as of this encounter
--- OUTSIDE RECORDS SUMMARY | 2022-01-11 00:22 | XMS_ITS | Encounter Summary ---
:1970 Author Organization [facility] Address [address] [place] [address] Care Team Providers Name Role Phone Ro Norton APRN C.NDean, D.N.P. Primary Care Provider Reason for Visit Reason Comments Follow-up Outpatient (Routine) - Closed Specialty Diagnoses / Procedures Referred By Contact Refer red To Contact Orthopedic Surgery Kelli Mojica [facility] [address] [place] M.D., M.ERaffy [address] [place] [address] Referral ID Status Reason Start Date Expiration Date Visits Requ ested Visits Authorized [id number] Closed 12/13/2019 12/12/2020 1 1 Encounter Details Date Type Department Care Team Description 01/21/2020 Office Visit Department of [facility], Raudel Betancourt Fracture T ibial Orthopedic Surgery in .DRaffy [facility] Closed [place], [place] 200 [facility] Subsequent Left [address] [place], [place] (Primary Dx) [place] [phone] Social History Tobacco Use Types Packs/Day Years [...] do you attend adventist or Never 2021 mandaen services? Do you belong to any clubs or No 02/25/2021 organizations such as adventist groups, unions, [employer] or athletic groups, or school groups? How [...] Notes Angelita Buchanan APRN, C.N.P., M.S.N. - 01/21/2020 9:45 AM CST [...] #1 Fracture Tibial Plateau Closed Subsequent Left IC POLICY ANALYST documented in this encounter Plan of Treatment Upcoming Encounters Date Type Specialty Care Team Description 01/14/2022 Appointment Radiology Ro Norton APRN, C.N.P., D.N.P. [address] [phone] (Amanda goldman) 01/27/2022 Clinical Support Integrative Medicine Sohan Carballo y [address] [place], [place] [phone] (Wo rk) documented as of this encounter Visit Diagnoses Diagnosis Fracture Tibial Plateau Closed Subsequen t Left - Primary documented in this encounter Care Teams Trouble Operator Relationship Specialty Start Date End Date Ro Norton APRN, C.N.P., PCP - General Family Medicine D.N.P. [address] [phone] documented as of this encounter
--- OUTSIDE RECORDS SUMMARY | 2022-01-11 00:22 | XMS_ITS | Encounter Summary ---
:1970 Author Organization [facility] Address [address] [place] [address] Care Team Providers Name Role Phone Ro Norton APRN, C.N.P., D.N.P. Primary Care Provider Encounter Details Date Type Department Care Team Description 11/13/2019 Hospital Encounter Department of Yvon Dill Rib Multiple Radiology, Jose Liao APRN, Closed [facility], in C.N.P., M.S.N. [place], [place] [address] [facility] [address] [place] [phone] Social History Tobacco Use Types Packs/Day Years [...] do you attend zoroastrianism or Never 2021 mandaen services? Do you [...] Appointment Radiology Ro Norton APRN, C.N.P., D.N.P. [address] [phone] (Wo rk) 01/27/2022 Clinical Support Integrative Medicine Haris, Iv y [address] [facility] [place] [phone] (Wo rk) documented as of [...] res better demonstrated on prior CT exam. Yvon Dill APRN C.N.P., M.S.N. IMG DIAGNOSTIC IMAG ING PROCEDURES documented in this encounter Visit Diagnoses Diagnosis Fracture Rib Multiple Closed Initial Rig ht documented in this encounter Care Teams Wage And Salary Administrator Relationship Specialty Start Date End Date Ro Norton APRN, C.N.P., PCP - General Family Medicine D.N.P. [address] [place] [phone] documented as of this encounter
--- OUTSIDE RECORDS SUMMARY | 2022-01-11 00:22 | XMS_ITS | Encounter Summary ---
:1970 Author Organization [facility] Address [address] [place] [address] Care Team Providers Name Role Phone Ro Norton APRN, C.N.P., D.N.P. Primary Care Provider Reason for Visit Reason Comments Post Hospital Follow-up d/c 10/27/2019 Encounter Details Date Type Department Care Team Description 10/29/2019 Clinical Communication Department of Ro Norton [facility], MORGAN Ansari, Follow-up ( d/c [place] C.N.P., D.N.P. 10/27/2019) Clinic, in [address] [address] [place], [place] [phone] (Work) [phone] Social History Tobacco Use Types Packs/Day Years [...] do you attend episcopal or Never 2021 sikh services? Do you [...] Appointment Radiology Ro Norton APRN, C.N.P., D.N.P. [address] [phone] (Amanda goldman) 01/27/2022 Clinical Support Integrative Medicine Haris, Iv y 701 [place], [place] [phone] (Amanda goldman) documented as of this encounter Visit Diagnoses Not on filedocumented in this encounter Care Teams Claim Investigator Relationship Specialty Start Date End Date Ro Norton APRN, C.N.P., PCP - General Family Medicine D.N.P. [address] [phone] documented as of this encounter
--- OUTSIDE RECORDS SUMMARY | 2022-01-11 00:22 | XMS_ITS | Encounter Summary ---
:1970 Author Organization [facility] Address [address] [place] [address] Care Team Providers Name Role Phone Ro Norton APRN C.N.PRaffy, D.N.P. Primary Care Provider Reason for Visit Reason Comments Follow-up Outpatient (Routine) - Closed Specialty Diagnoses / Procedures Referred By Contact Refer red To Contact Trauma Critical Care Diagnoses Yvon Dill, [facility] and General Surgery Ninoska MORAN.Kirsty, M.S.N. [address] [place] [phone] Referral ID Status Reason Start Date Expiration Date Visits Requ ested Visits Authorized [id number] Closed 10/27/2019 10/26/2020 1 1 Encounter Details Date Type Department Care Team Description 11/13/2019 Office Visit Division of Trauma Yvon Dill APRN C.N.P., M.S.N. [address] [place] [phone] Fracture Rib Multiple Subsequent With Ro utine [facility] (Primary Dx); Critical Care and Veronique Castro APRN C.N.P., D.N.P. [address] [place] [phone] Chronic Obstructive Pulmonary Disease Wi thout Exacerbation (HCC); General Surgery in [facility] U se; [place], [place] Traumatic Fracture Sternum I nitial [address] [place] [phone] Social History Tobacco Use Types Packs/Day Years [...] or relatives? How often do you attend anglican or Never 2021 restoration services? Do you belong to any clubs or No 02/25/2021 organizations such as anglican groups, unions, fraternal or athletic groups, or [...] OF PRESENT ILLNESS Ms. Schulz presented to [facility] on 10/22 after she was involved in [...] Appointment Radiology Ro Norton APRN, C.N.P., D.N.P. [address] [phone] (Amanda goldman) 01/27/2022 Clinical Support Integrative Medicine Haris, Iv y 701 [place], [place] [phone] (Amanda rk) documented as of this encounter Visit Diagnoses Diagnosis Fracture Rib Multiple Subsequent With Ro utine Healing Right - Primary Chronic Obstructive Pulmonary Disease Wi thout Exacerbation (HCC) Tobacco Use Traumatic Fracture Sternum Initial documented in this encounter Care Teams Educational Director Relationship Specialty Start Date End Date Ro Norton APRN, C.N.P., PCP - General Family Medicine D.N.P. [address] [phone] documented as of this encounter
--- OUTSIDE RECORDS SUMMARY | 2022-01-11 00:22 | XMS_ITS | Encounter Summary ---
:1970 Author Organization [facility] Address [address] [place] [address] Care Team Providers Name Role Phone Ro Norton APRN C.N.PRaffy, D.N.P. Primary Care Provider Encounter Details Date Type Department Care Team Description 12/13/2019 Hospital Encounter Department of [place]ay[place], Angelita saldana [facility] Radiology, [facility] in C.N.P., M.S.N. [place], [place] [address] [facility] [address] [place] [phone] Social History Tobacco Use Types Packs/Day Years [...] do you attend congregation or Never 2021 denominational services? Do you [...] Appointment Radiology Ro Norton APRN, C.N.P., D.N.P. [address] [place] [phone] (Wo rk) 01/27/2022 Clinical Support Integrative Medicine Haris, Iv y 701 [place], [place] [phone] (Wo rk) documented as [...] aspect of the proximal leg. Osteopenia. Angelita Amaya Buchanan APRN, C.N.P., M.S.N. IMG DIAGNOSTIC QUE GING PROCEDURES documented in this encounter Visit Diagnoses Diagnosis Fracture Tibial Plateau Closed Initial L eft documented in this encounter Care Teams Mint Wafer Depositor Relationship Specialty Start Date End Date Ro Norton APRN, C.N.P., PCP - General Family Medicine D.N.P. [address] [phone] documented as of this encounter
--- OUTSIDE RECORDS SUMMARY | 2022-01-11 00:22 | XMS_ITS | Encounter Summary ---
:1970 Author Organization [facility] Address [address] [place] [address] Care Team Providers Name Role Phone Ro Norton APRN C.N.PRaffy, D.N.P. Primary Care Provider Reason for Visit Reason Comments Med Refill oxycodone Encounter Details Date Type Department Care Team Description 11/15/2019 Clinical Communication Department of Raudel Lewis Med Refill Orthopedic Surgery Michael Betancuort (oxycodone) in [place], [address] [place] [address] [place] [address] [place], [place] [phone] (Work) [phone] Social History Tobacco Use Types Packs/Day Years [...] do you attend sabianist or Never 2021 anglican services? Do you [...] would like a refill sent to the [facility] in [place]. She statesshe is also taking gabapentin and Tramadol. She can be reached at [phone] if there are any questions. documented in this encounter Plan of Treatment Upcoming Encounters Date Type Specialty Care Team Description 01/14/2022 Appointment Radiology Ro Norton APRN, C.N.P., D.N.P. [address] [phone] (Amanda goldman) 01/27/2022 Clinical Support Integrative Medicine Haris, Iv y 701 [place], [place] [phone] (Amanda goldman) documented as of this encounter Visit Diagnoses Not on filedocumented in this encounter Care Teams Dispatcher Chief Oil Relationship Specialty Start Date End Date Ro Norton APRN, C.N.P., PCP - General Family Medicine D.N.P. [address] [phone] documented as of this encounter
--- OUTSIDE RECORDS SUMMARY | 2022-01-11 00:22 | XMS_ITS | Encounter Summary ---
:1970 Author Organization [facility] Address [address] [place] [address] Care Team Providers Name Role Phone Ro Norton APRN C.N.PRaffy, D.N.P. Primary Care Provider Encounter Details Date Type Department Care Team Description 12/23/2019 Orders Only Department of Angelita Buchanan, Pain Calf Left Orthopedic Surgery in [place] C.N.PRaffy, (Prim jonny Dx) [place], [place] M.S.N. [address] [facility] [address] [place] [phone] [phone] Social History Tobacco Use Types Packs/Day Years [...] do you attend druze or Never 2021 episcopalian services? Do you [...] Appointment Radiology Ro Norton APRN, C.N.P., D.N.P. [address] [phone] (Wo rk) 01/27/2022 Clinical Support Integrative Medicine Haris, Iv y [address] [place], [place] [phone] (Wo rk) documented as of this encounter Visit Diagnoses Diagnosis Pain Calf Left - Primary documented in this encounter Care Teams Annealing Operator Relationship Specialty Start Date End Date Ro Norton APRN, C.N.P., PCP - General Family Medicine D.N.P. [address] [phone] documented as of this encounter
[2022-01-11 00:23] LABS: HCO3 VBG 38 mmol/L (21-28); PCO2 VBG 58 mmHG (40-50); PO2 VBG 27.3 mmHG (25-47); pH VBG 7.419 (7.32-7.43)
--- OUTSIDE RECORDS SUMMARY | 2022-01-11 00:23 | XMS_ITS | Encounter Summary ---
:1970 Author Organization [facility] Address [address] [place] [address] Care Team Providers Name Role Phone Ro Norton APRN C.N.Kirsty, D.N.P. Primary Care Provider Reason for Referral Outpatient (Routine) - Closed Specialty Diagnoses / Procedures Referred By Contact Refer red To Contact Orthopedic Surgery Angelita Buchanan APRN, [place] ter [place] C.N.Kirsty, M.S.N. [address] [place] [phone] Referral ID Status Reason Start Date Expiration Date Visits Requ ested Visits Authorized [id number] Closed 10/24/2019 10/23/2020 1 1 Scheduling Instructions Sems - est utpatient (Routine) - Closed Specialty Diagnoses / Procedures Referred By Contact Refer red To Contact Orthopedic Surgery Angelita Buchanan APRN, [place] ter [place] C.N.PRaffy, M.S.N. [address] [place] [phone] Referral ID Status Reason Start Date Expiration Date Visits Requ ested Visits Authorized [id number] Closed 10/24/2019 10/23/2020 1 1 Scheduling Instructions Sems - est - 830 am Encounter Details Date Type Department Care Team Description 10/24/2019 Orders Only Department of [place]ayne, Angelita Conde, Fracture T ibial Orthopedic Surgery in [place], CRaffyNRaffyP., Plate au Closed Initial [place], [place] M.S.N. Left (Primary Dx) [address] [place] [phone] [phone] Social History Tobacco Use Types Packs/Day Years [...] do you attend taoist or Never 2021 jainism services? Do you [...] Appointment Radiology Ro Norton APRN, C.N.P., D.N.P. [address] [place] [phone] (Wo rk) 01/27/2022 Clinical Support Integrative Medicine Haris, Iv y 701 [place], [place] [phone] (Wo rk) Scheduled Referrals [...] aspect of the proximal leg. Osteopenia. Angelita K Dewayne MORA C.N.P., M.S.N. IMG DIAGNOSTIC QUE GING PROCEDURES documented in this encounter Visit Diagnoses Diagnosis Fracture Tibial Plateau Closed Initial L eft - Primary Fracture Tibial Plateau Closed Initial L eft documented in this encounter Care Teams Burglar Alarm Operator Relationship Specialty Start Date End Date Ro Norton APRN, C.N.Taylor., PCP - General Family Medicine D.N.P. [address] [phone] documented as of this encounter
--- OUTSIDE RECORDS SUMMARY | 2022-01-11 00:23 | XMS_ITS | Encounter Summary ---
:1970 Author Organization [facility] Address [address] [place] [address] Care Team Providers Name Role Phone Ro Norton APRN, C.N.P., D.N.P. Primary Care Provider Encounter Details Date Type Department Care Team Description 10/24/2019 Anesthesia Event RST ROMB MAIN OR Janel Hoff M.D. [address] [place] [phone] [address] [facility] [place]ilda [place], [place] [phone] Anesthesia Record Procedure Summary Procedure Name Responsible Anesthesia Start Anesthesia Stop Time Anesthesiologist Time OPEN REDUCTION, Janel Hoff M.D. 10/24/19 0803 10/24/19 1 125 INTERNAL FIXATION TIBIA. (Left: Leg Lower) Events Date Time Event Comment 10/24/2019 0755 Monitored Transport Anesthesia p ick up from 7MB 514, 02 per nasal cannula, h ep lock x2, ECG, BP, pulse ox 0755 Anesthesia Lead Project Manager Anesthesia tr ansport medically necessary Report received [...] h andoff to the receiving staff during [facility] we 1. Identified the patient 2. Ident [...] Prep: Chlorhexidine (Preferred); Inserted by: Mile Love ONLINE MARKETING DIRECTOR; Insertion Attempts: 1; Removal Date: 10/27/19; Removal Time: 1245 (RETIRED) Wound 10/23/19; Abrasion(s); 10/23/19 0000 by 09/29/20 1242 by Back; Lower, Left, Mid; Harris Montez R.N. Agu zino, Claire L, 09/29/20; 1242 R.N. (RETIRED) Wound 10/23/19; 0500; Yes; 10/23/19 0500 by 09/29/20 1 242 by Abrasion(s); Thigh; MangoMiranda R.N., Fabi Burkett L, Anterior, Left; CCRN R.N. 09/29/20; 1242 (RETIRED) Wound 10/23/19; 0500; Yes; 10/23/19 0500 by 09/29/20 1 241 by Abrasion(s); Knee; Miranda Cobian R.NRaffy, Fabi Burkett L, Anterior, Left; CCRN R.N. 09/29/20; 1241 (RETIRED) Wound 10/23/19; 0500; Yes; 10/23/19 0500 by 09/29/20 1 241 by Abrasion(s); Pretibial; Miranda Cobian RShikha, Fabi Bailey L, Distal, Left; 09/29/20; CCRN R.N. 1241 [...] 10/24/19; Placement Dianna Vaca Alaina K, Time: 0545; Type: R.N., C.M.S.R. N. Double-lumen, Latex; Size: 16 Fr.; Balloon Size: 10 mL; Urine Returned: Yes; Removal Date: 10/24/19; Removal Time: 1813; Removal Reason: Per order ETT Placement Date: 10/24/19828 by 10/24/19 1058 b y 10/24/19; Placement Hilda Bello, Junie Bello, Time: 08 (created via EDUCATIONAL DIRECTOR, ONLINE MARKETING DIRECTOR EDUCATIONAL DIRECTOR, JUAN MANUEL BENSON procedure documentation); Mask Ventilation: Easy mask; Type: Standard ETT; Single Lumen Tube Size: 7 mm; Cuffed: Yes; Blade Size: Han 2; Location: Oral; Removal Date: 10/24/19; Removal Time: 105 Arterial Line Placement Date: 10/24/19855 by 10/24/19 1632 b y 10/24/19; Placemnt Time: Hilda Bello, Hipolito sales, Farshad W, 08 (created via EDUCATIONAL DIRECTOR, SILVIA R.NRaffy procedure documentation); Orientation: Right; Location: Radial; Site [...] do you attend pentecostal or Never 2021 lutheran services? Do you [...] Procedure Summary Date: 10/24/19 Room / Location: [place] [address] ROMB 1630 / [facility] in [place], [place] Anesthesia Start: 0803 Anesthesia Stop: 1124 Procedure: OPEN REDUCTION, INTERNAL [...] Tibial Plateau Closed Initial Left [S82.142A]. Location: OR 410 ROMB 01 1630 / [facility] in [place], [place] Provider: Raudel Lewis M.D. Pertinent components [...] with patient /legal guardian or through an wood cabinetmaker. Risks/Benefits/Alternatives of Blood transfusion discussed with patient [...] Appointment Radiology Ro Norton APRN, C.N.P., D.N.P. [address] [phone] (Wo rk) 01/27/2022 Clinical Support Integrative Medicine Sohan Carballo y [address] [place], [place] [phone] (Wo rk) documented as of this encounter Procedures Procedure Name Priority Date/Time Associated Comments Diagnosis LDA ANE ENDOTRACHEAL Routine 10/24/2019 10:09 Res ults for this AIRWAY AM CDT procedure are i n the results section. LDA ANE ARTERIAL LINE Routine 10/24/2019 10:05 Re sults for this INSERTION AM CDT procedure are i n the results section. [place] ARTL CATH/CNULA Routine 10/24/2019 10:05 Resul ts [...] no complications Janel Hoff M.D. ANESTHESIA ORDERABLES [place] ARTL CATH/CNULA MONITOR PERC, LDA ANE ARTERIAL LINE INSERTION (10/24/2019 10:05 AM CDT) Narrative Hilda Bello APRN, CRNA - 0 10:05 AM CDT Hilda Bello APRN, CRNA ? 10/24/2019 10:08 AM Invasive Catheter Date/Time: 10/24/2019 8:56 AM Performed by: Hilda Bello APRN, CR [...] arterial: none COMMENTS Attempt R/L radial per ONLINE MARKETING DIRECTOR, placed per Dr. Navarro Janel Hoff M.D. [...] g documented in this encounter Care Teams Dial Screw Assembler Relationship Specialty Start Date End Date Ro Norton APRN, C.N.P., PCP - General Family Medicine D.N.P. [address] [phone] documented as of this encounter
--- OUTSIDE RECORDS SUMMARY | 2022-01-11 00:23 | XMS_ITS | Encounter Summary ---
:1970 Author Organization [facility] Address [address] [place] [address] Care Team Providers Name Role Phone Ro Norton APRN, C.N.P., D.N.P. Primary Care Provider Encounter Details Date Type Department Care Team Description 10/24/2019 Orders Only [facility] PCP [facility] MNT Ro Norton APRN, C.N.P., D.N.P. [address] [place] [phone] (Wo rk) Social History Tobacco Use Types [...] do you attend rastafari or Never 2021 anabaptist services? Do you [...] Appointment Radiology Ro Norton APRN, C.N.P., D.N.P. [address] [phone] (Wo rk) 01/27/2022 Clinical Support Integrative Medicine Haris, Iv y [address] [place], [place] [phone] (Wo rk) documented as of this encounter Visit Diagnoses Not on filedocumented in this encounter Care Teams Food And Beverage Order Clerk Relationship Specialty Start Date End Date Ro Norton APRN, C.N.P., PCP - General Family Medicine D.N.P. [address] [phone] documented as of this encounter
--- OUTSIDE RECORDS SUMMARY | 2022-01-11 00:23 | XMS_ITS | Encounter Summary ---
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 [address] [facility] [place] [place] [address] Laboratories-[facility] [address] DX Chest Portable 1 [...] L1 vertebral body. Tasia French APRN, C.N.P. IMSelam DIAGNOSTIC IMAGIN G PROCEDURES Calcium, Ionized (10/25/2019 3:45 AM CDT) P athologist Signature Calcium, 4.73 4.57 - 5.43 10/25/2019 DTL Ionized, S mg/dL 5:09 AM CDT Comment: ----ADDITIONAL INFORMATION---- This test has been modified from the wilda no's instructions. Its performance characteri stics were determined by [facility] in a manner co nsistent with CLIA [...] Organization Address City/State/ZIP Code Phon e Number [facility] - [address] [place], [place] [address] [facility] [place] [address] [facility] [address] [facility] (ABNORMAL) Basic Metabolic Panel (10/24/2019 8:36 PM [...] 10/24/2019 DTL Black/ mL/min/BSA 9:48 PM CDT Gambian Comment: ----ADDITIONAL INFORMATION---- Estimated GFR calculated using [...] 9:32 Venous) CDT PM CDT Tasia French APRN, C.N.P. LAB BLOOD ADD-ON Performing Organization Address City/[facility] Phon e Number [facility] - [address] [place] [address] [facility] [place] [address] [address] (ABNORMAL) CBC without Differential (10/24/2019 8:36 PM CDT) [facility] gist Method Time Signature Hemoglobin 10.9 (L) [...] C.N.P. LAB BLOOD ADD-ON Performing Organization Address City/[facility] Code Phon e Number [facility] - [address] [place], [place] [address] [facility] [place] [address] [facility] [address] [place] Fluoro Less Than 1 Hour (10/24/2019 [...] Luis WANG FLUOROSCOPY PROCEDURES Performing Organization Address City/State/ZIP Code [...] Small left knee effusion. Elan Baeza M.D. IMSelam DIAGNOSTIC IMAGING PROCE BLAIR Glucose, POCT (10/24/2019 [...] City/State/ZIP Code Phon e Number POC RST [facility] [address] [place], [place] [address] LABS [facility] [place] [address] [place] P[place] [address] (ABNORMAL) Basic Metabolic [...] 10/24/2019 DTL Black/ mL/min/BSA 8:07 AM CDT Gambian Comment: ----ADDITIONAL INFORMATION---- Estimated GFR calculated using [...] 20 7:17 Venous) CDT AM CDT Ninoska Sierra APRNN.P. LAB BLOOD ADD-ON Performing Organization Address City/[facility] Phon e Number [facility] - [address] (ABNORMAL) CBC without Differential (10/24/2019 6:56 [...] 10/24/19 20 7:19 Venous) CDT AM CDT Bolivar Sierra APRN.N.P. LAB BLOOD ADD-ON Performing Organization Address City/[facility] Phon e Number [facility] - [address] (ABNORMAL) Hepatic Function Panel (10/24/2019 6:56 [...] D.N.P. LAB BLOOD ADD-ON Performing Organization Address City/[facility]/ZIP Code Phon e Number [facility] [address] [address] [facility] [place] [address] Laboratories-[address] Phosphorus Inorganic (10/24/2019 6:56 AM CDT) P athologist Signature Phosphorus 3.2 2.5 - 4.5 10/24/2019 DTL (Inorganic), S mg/dL 7:51 AM CDT Specimen Anatomical Collection Method Collection Time Receive d Time (Source) Location / / Volume Laterality Blood (Blood, 10/24/2019 6:56 AM 10/24/19 20 7:17 Venous) CDT AM CDT Sita Flores APRN, Bolivar.N.P., D.N.P. LAB BLOOD ADD-ON Performing Organization Address City/[facility]/ZIP Code Phon e Number [facility] - [address] [place], [place] [address] [place] [address] Magnesium (10/24/2019 6:56 AM CDT) P [...] City/State/ZIP Code Phon e Number [facility] - [address] [place] [address] [place] [address] DX Chest Portable 1 View (10/24/2019 [...] arteries consistent with pulmonary arterial hypertension. Sita A Ninoska Flores APRNNRaffyP., D.N.P. IMG DIAGNOSTIC IM AGING PROCEDURES (TTE) 2D ECHO DOPPLER COLOR (10/23/2019 3:03 PM CDT) [facility] Method Time Signature Ejection Fraction 61 [...] effusion. For the complete report, see the [email or web address] Documents. Narrative 10/23/2019 3:58 PM CDT For the complete report, see the [email or web address] Documents. Final Impressions 1. Status post patent [...] ??DX KNEE LEFT 2 VIEWS Procedure Note Harms, Mason F, M.D. - 10/23/2019Format ting of this note [...] Drug Screen Urine (10/23/2019 7:43 AM CDT) [facility] Method Time Signature Ethanol, Negative NEGATIVE 10/23/2019 [...] Organization Address City/State/ZIP Code Phon e Number [facility] - [address] [place], [place] [address] [facility] [place] [address] Laboratories-[facility] [address] Troponin T, 2H/6H, 5th Gen (10/23/2019 7:14 AM CDT) [facility] Method Time Signature Troponin T, 2 <6 [...] 20 7:19 Venous) CDT AM CDT Narrative [facility] - [facility] - 10/23/2019 12:31 PM CDT Specimen Information: Specimen ID: [id number] Specimen Type: Blood Specimen Collection Start Date: 0 ??7:14 AM Specimen Received Date: 10/23/2019 ??7:19 AM Specimen ID: [id number] Specimen Type: Blood Specimen Collection Start Date: 0 11:48 AM Specimen Received Date: 10/23/2019 11:52 AM Sita Flores APRN, C.N.P., D.N.P. LAB BLOOD TROPONI N Performing Organization Address City/State/[facility] Code Phon e Number [address] [address] [place] [address] [facility] 200 [facility] Critical Care (10/23/2019 6:55 AM CDT) [...] Signature Ventricular Rate 72 BPM MUSE ECG/Min [place] Interval 134 ms MUSE QRSD Interval 94 ms MUSE QT Interval 434 ms MUSE QTC Interval 475 ms MUSE P [place] 80 degrees MUSE R [place] 96 degrees MUSE T Wave [place] 102 degrees MUSE Specimen Anatomical Collection Method [...] NA SARS Coronavirus 2, Molecular Detection, PCR (HOUSESMITH) Asymptomatic (10/23/2019 5:31 AM CDT) [facility] gist Method Time Signature COVID-19, PCR Undetected [...] Drug Administration an d is used per beater room supervisor's instructions. Performance characteristics were verified by [facility] in a manner consistent with CLIA requirements. Visit the CDC website: https://www.cdc.g ov/coronavirus/ for the most recent guidelines on [place] virus testing. Fact Sheet for Healthcare Providers: https://www.fda.gov/media/506058/downloa d Fact Sheet for Patients: https://www.fda.gov/media/191792/downloa d Specimen Anatomical Collection Method Collection Time Receive d Time (Source) Location / / Volume Laterality Varies 10/23/2019 5:31 AM 0 6:00 (Nasopharynx) CDT AM CDT Sita Flores APRN, Bolivar.N.P., D.N.P. LAB MICROBIOLOGY - GENERAL ORDERABLES Performing Organization Address City/[facility] Phon e Number [facility] - [address] [place] [address] Troponin T, Baseline, 5th gen (10/23/2019 5:18 [...] LAB BLOOD TROPONI N Performing Organization Address City/[facility] Phon e Number [facility] - [address] [place] [address] Lactate, POCT (10/23/2019 4:14 AM CDT) Analysis Performed At Patho logist Time Signature Lactate, POCT Collected DEFAULT 10/23/2019 SMLX 4:14 AM CDT Specimen Anatomical Collection Method Collection Time Receive d Time (Source) Location / / Volume Laterality Blood (Blood, 10/23/2019 4:14 AM 10/23/19 20 4:14 Venous) CDT AM CDT Phillip Kimbrough M.D. LAB POCT ORDERABLES - DEVICE Performing Organization Address City/[facility]/ZIP [facility] Phon e Number [facility] - [address] [place], [place] [address] [facility] [place] [address] [facility] 200 [facility] (ABNORMAL) Lactate, POCT (10/23/2019 4:13 AM [...] POCT ORDERABLES - DEVICE Performing Organization Address City/[facility] Phon e Number [facility] [address] [place] [address] PCLX [facility] [address] [facility]ly [facility] 200 [facility] Venous Blood Gas and Electrolytes CG8+, [...] City/State/ZIP Code Phon e Number POC RST [facility] [address] [place], [place] [address] LABS [facility] [place] [address] [place] P[facility] [address] Ethanol Level, Serum (10/23/2019 4:13 AM CDT) P athologist Signature Ethanol, S <10 <10 mg/dL 10/23/2019 5:17 DTL AM CDT Specimen Anatomical Collection Method Collection Time Receive d Time (Source) Location / / Volume Laterality Blood (Blood, 10/23/2019 4:13 AM 10/23/19 5:04 Venous) CDT AM CDT Phillip Kimbrough M.D. LAB BLOOD NON ADD-ON Performing Organization Address City/[facility] Phon e Number [facility] - [address] Amylase, Total (10/23/2019 4:13 AM CDT) athologist Signature Amylase, Total, 32 26 - 102 10/23/2019 DT S U/L 5:17 AM CDT Specimen Anatomical Collection Method Collection Time Receive d Time (Source) Location / / Volume Laterality Blood (Blood, 10/23/2019 4:13 AM 10/23/19 5:04 Venous) CDT AM CDT Phillip Kimbrough M.D. LAB BLOOD ADD-ON Performing Organization Address City/[facility] Phon e Number [facility] - [address] hCG (Human Chorionic Gonadotropin), Quantitative, (10/23/2019 4:13 [...] Laterality Blood (Blood, 10/23/2019 4:13 AM 10/23/19 4:24 Venous) CDT AM CDT Phillip Kimbrough M.D. LAB BLOOD ADD-ON Performing Organization Address City/State/ZIP Code Phon e Number [facility] - [address] [place], [place] [address] [place] [address] Type and Screen (with reflex Antibody ID) (10/23/2019 4:12 AM CDT) Patholo gist Method Time Signature ABORh O Pos Not 10/23/2019 STRM applicable 4:46 AM CDT Antibody Negative Negative 10/23/2019 STRM Screen 5:01 AM CDT Type & Screen 10/26/2019 10/23/2019 STRM Expiration 23:59 4:46 AM CDT Testing Govind DEFAULT 10/23/2019 STRM Location 4:27 AM CDT Specimen Anatomical Collection Method Collection Time Receive d Time (Source) Location / / Volume Laterality Blood (Blood, 10/23/2019 4:12 AM 10/23/19 20 4:27 Venous) CDT AM CDT Phillip Kimbrough M.D. LAB BLOOD BANK TEST ORDERABL ES Performing Organization Address City/State/ZIP Code Phon e Number [facility] - [address] [place], [place] [address] [place] [address] [place] [address] [address] [facility] APTT (Activated Partial Thromboplastin Time) (10/23/2019 4:12 [...] Organization Address City/State/ZIP Code Phon e Number [facility] - [address] [place], [place] [address] [place] [address] Prothrombin Time (PT) (10/23/2019 4:12 AM [...] Organization Address City/State/ZIP Code Phon e Number [facility] - [address] [place], [place] [address] [place] [address] [facility] [address] (ABNORMAL) Basic Metabolic Panel (10/23/2019 4:12 [...] CDT eGFR-Black/Afric >90 >=60 10/23/2019 STMA an Gambian mL/min/BSA 4:41 AM CDT Comment: ----ADDITIONAL INFORMATION---- [...] M.D. LAB BLOOD ADD-ON Performing Organization Address City/[facility] Phon e Number [facility] - [address] [place] [phone] Laboratories-[address] (ABNORMAL) AST (Aspartate Aminotransferase) (10/23/2019 4:12 AM CDT) [facility] Mention Mobile Method Time Signature Aspartate 239 (H) 8 - 43 10/23/2019 STMA Aminotransferase U/L 4:41 AM CDT (AST), P Specimen Anatomical Collection Method Collection Time Receive d Time (Source) Location / / Volume Laterality Blood (Blood, 10/23/2019 4:12 AM 10/23/19 4:24 Venous) CDT AM CDT Phillip Kimbrough M.D. LAB BLOOD ADD-ON Performing Organization Address City/[facility] Phon e Number [facility] - [address] [place], [place] [address] [facility] [place] [address] (ABNORMAL) CBC with Differential, Blood (10/23/2019 4:12 AM CDT) [facility] Method Time Signature Hemoglobin 12.6 11.6 - [...] Organization Address City/State/ZIP Code Phon e Number [facility] - [address] [place], [place] [address] [place] [address] [facility] [address] (ABNORMAL) Thromboelastograph, Kaolin, Blood (10/23/2019 4:09 [...] 10/23/2019 STMA TEG mm 5:15 AM CDT Radha Moreno, 5.1 (H) 0.0 - 4.8 % 10/23/2019 STMA TEG 5:15 AM CDT Specimen Anatomical Collection Method Collection Time Receive d Time (Source) Location / / Volume Laterality Blood (Blood, 10/23/2019 4:09 AM 10/23/19 20 4:16 Venous) CDT AM CDT Phillip Kimbrough M.D. LAB BLOOD NON ADD-ON Performing Organization Address City/State/ZIP Code Phon e Number [facility] - [address] [place], [place] [address] [place] [address] [facility] [address] DX Chest Portable 1 View (10/23/2019 4:06 AM CDT) Anatomical Region Laterality Modality Chest, Thoracic RST LOS, Thoracic ARZ LOS, Thoracic N/A Digital Radiography FLA LOS Specimen (Source) Anatomical Collection Method Collection Time Re ceived Time Location / / Volume Laterality 10/23/2019 4:27 AM CDT Impressions 10/23/2019 6:42 AM CDT No significant change compared to [facility] radiograph from 10/22/2019. Sternotomy. Marked pulmonary [...] VIEW IMPRESSION: No significant change compared to [facility] r adiograph from 10/22/2019. Sternotomy. Marked pulmonary artery dila tation. Patchy opacities right lung base. No pleural effusion or pneumothora x. Rib and sternal fractures better demonstrated on comparison CT. Phillip Kimbrough M.D. IMG DIAGNOSTIC IMAGING PROCE DURES documented in this encounter Visit Diagnoses Diagnosis [...] (TYLENOL) 0134 (Given - Provider: Augustus Gaona RShikha)0830 (Given - Provider: Damaris Ferreira R.N.)1358 (Given - Provider: Damaris Ferreira R.N.)8539 (Given - Provider: Montserrat Boone RRaffyN.) 0215 (Given - Provider: Montserrat Boone R.N.)0809 (Given - Provider: Damaris Ferreira R.N.)1550 (Given - Provider: Damaris Ferreira R.N. - Comment: Patient given mag citrate at 1400-micromedex says no PO sediment remediation consultant within 2 hours) 0300 (Given - Provider: Montserrat Boone R.N.)0937 (Given - Provider: Damaris Ferreira R.N.) 1,000 mg, oral, Every 6 hours, First dose on Mon10/23/19 at 0 800 2018 (Given - Provider: Montserrat Boone R.N.) ceFAZolin [...] R.N.)2001 (Given - Provider: Montserrat Boone R.N.) 0809 (Given - Provider: Ethan TrippNRaffy)2020 (Not Given - Provider: Montserrat Boone R.N. - Reason: Patient/family refused) 0935 (Not Given - Provider: Damaris Ferreira R.N. - Reason: Patient/family refused) 200 mg, oral, 2 times daily, First dose on Mon10/25/19 at 0900, Do NOT crush or chew. enoxaparin injection 30 mg (LOVENOX) (CANCELED) 0830 ( Given - Provider: Damaris Ferreira R.N.)2001 (Given - Provider: Montserrat Boone R.N.) 08 (Given - Provider: Damaris Ferreira R.N.)2018 (Given - Provider: Montserrat Boone R.N.) 30 mg, subcutaneous, 2 times daily, First dose on Mon10/25/19 at 0900 enoxaparin injection 40 mg (LOVENOX) 09 (Given - Provider: Damaris Ferreira R.N.) 40 mg, subcutaneous, Daily, First dose ( after last modification) on Mon10/27/19 at 0900 gabapentin capsule 300 mg (NEURONTIN) 0831 (Given - Pr ovider: Damaris Ferreira R.N.)1355 (Given - Provider: Damaris Ferreira R.N.)2002 (Given - Provider: Montserrat Boone R.N. - Comment: lyrica discontinued) 08 (Given - Provider: Damaris Ferreira R.N.)1550 (Given - Provider: Damaris Ferreira R.N. - Comment: Patient given mag citrate at 1400-micromedex says no PO sediment remediation consultant within 2 hours)2018 (Given - Provider: Montserrat Boone R.N.) 0937 (Given - Provider: Ethan TrippNRaffy) 300 mg, oral, 3 times daily, First [...] mL (CITROMA) (COMPLETED) 1406 (Given - Provider: Ethan TrippNRaffy) 148 mL, oral, Once, On Mon10/26/19 at 1345, For 1 dose melatonin tablet 3 mg 2001 (Given - Provider: Montserrat brown RRaffyN.) 2018 (Given - Provider: Montserrat Boone R.N.) 3 mg, oral, Daily at bedtime, First dose on Mon10/23/19 at 2100 mineral oil-glycerin enema 1 enema (COMPLETED) 1656 (Given - Provider: Damaris Ferreira R.N. - Comment: Patient request to let mag citrate work first before TN route) 1 enema, rectal, Once, On 10/26/19 [...] mg (SENOKOT) 2020 (Not Given - Provider: oMntserrat Boone R.N. - Reason: Patient/family refused) 17.2 mg, oral, Daily at bedtime, First d ose (after last modification) on 10/26/19 at 2100 sennosides tablet 8.6 mg (SENOKOT) (CANCELED) 2001 (Gi cata - Provider: Ethan BadilloNRaffy) 8.6 mg, oral, Daily at bedtime, First [...] Provider: Ethan CalhounNRaffy) 0938 (Given - Provider: Ethan CalhounNRaffy) 2 puff, inhalation, Daily (RT), First do [...] Provider: Montserrat Boone R.N.)1115 (Given - Provider: Ethan TrippNRaffy)1800 (Given - Provider: Damaris Ferreira R.N.)2350 (Given - Provider: Montsrerat Boone R.N.) 0519 (Given - Provider: Ethan BadilloNRaffy)1143 (Given - Provider: Damaris Ferreira R.N.) 50 [...] mg, rectal, Daily PRN, constipation, Starting on Sat 20 a t 0715 HYDROmorphone (PF) injection 0.4 [...] 1112 (See Alternative - Provider: Damaris Ferreira R.N.)1946 (See Alternative - Provider: Montserrat Boone R.N.) 0411 (See Alternative - Provider: Montserrat Boone R.N.)1131 (See Alternative - Provider: Damaris Ferreira R.N.)1640 (See Alternative - Provider: Ethan TrippN.) 1232 (See Alternative - Provider: Tiff Ferreira RRaffyNRaffy) 10 mg, oral, Every 4 hours PRN, moderate pain or score 4-6 of 10, Starting on Mon10/25/19 at 0719 oxyCODONE IR tablet 15 mg (ROXICODONE)(Linked Group 1) 1112 (Given - Provider: Damaris Ferreira R.N.)194 (Given - Provider: Montserrat Boone R.N.) 041 (Given - Provider: Montserrat Boone R.N.)113 (Given - Provider: Dmaaris Ferreira R.N.)1640 (Given - Provider: Damaris Ferreira R.N.) 1232 (Given - Provider: Damaris Ferreira R.N.) 15 mg, oral, Every 4 hours PRN, severe p ain or score 7-10 of 10, Starting on Mon10/25/19 at 07 sodium chloride 0.9 % injection 10 mL [...] documented as of this encounter Care Teams Body Designer Relationship Specialty Start Date End Date Ro Norton APRN, C.N.P., PCP - General Family Medicine D.N.P. [id number] [phone] documented as of this encounter
[2022-01-11 00:24] LABS: Basophils Percent Auto 0.1 % (0.0-3.0); Eosinophils Percent Auto 0.1 % (0.0-7.0); Hematocrit 51.6 % (33.0-51.0); Hemoglobin* 16.7 gm/dL (12.0-16.0); Immature Granulocytes Pct Auto 0.1 %; Lymphocytes Percent Auto 7.6 % (20-44); Mean Corpuscular HGB Conc 32 gm/dL (32-36); Mean Corpuscular Hemoglobin 33 pg (26-34); Mean Corpuscular Volume 101 fL (80-100); Monocytes Percent Auto 9.1 % (0.0-11.0); Platelet Count* 225 K/uL (140-440); RDW Coefficient of Variation % 14.4 % (11.5-15.5)
--- OUTSIDE RECORDS SUMMARY | 2022-01-11 00:24 | XMS_ITS | Encounter Summary ---
:1970 Author Organization [facility] Address [address] [place] [address] Care Team Providers Name Role Phone Ro Norton APRN, C.N.P., D.N.P. Primary Care Provider Reason for Referral Outpatient (Routine) - Closed Specialty Diagnoses / Procedures Referred By Contact Refer red To Contact Family Medicine Diagnoses Chronic Obstructive Pulmonary Disease Exacerbation (HCC) Ro Norton, [facility] MORGAN C.N.P., D.N.P. [address] [place] [phone] Referral ID Status Reason Start Date Expiration Date Visits Requ ested Visits Authorized [id number] Closed 05/07/2019 05/06/2020 1 1 Reason for Visit Reason Comments Establish Care needs meds Appointment Request (Routine) - Closed Specialty Diagnoses / Procedures Referred By Contact Refer red To Contact Family Medicine Referral ID Status Reason Start Date Expiration Date Visits Requ ested Visits Authorized [id number] Closed 05/06/2019 05/05/2020 1 1 Encounter Details Date Type Department Care Team Description 05/07/2019 Comprehensive Visit Department of Ro Norton ic Obstructive Pulmonary Disease Exacerbation (HCC) (Primary Dx); Family Medicine, MORGAN Ansari, Eusebia moreira Pulmonary Hypertension (HCC) [place] C.N[facility] D.N.P[facility], in [place] [address] [address] [place], [place] [phone] (Work) [phone] Social History Tobacco Use Types Packs/Day Years [...] do you attend jew or Never 2021 zoroastrianism services? Do you [...] or slept in a custodial (including now)? Sex Assigned at Date Recorded [...] Notes Ro Norton APRN, C.N.P., D.N.P. - 05/07/2019 3:30 PM CDT SUBJECTIVE CHIEF COMPLAINT/REASON FOR VISIT Allison Schulz is a 48 y.o. female who presents for evaluation of Establish Care (needs meds). HISTORY OF PRESENT ILLNESS Allison Schulz presents for medication refills. She recently moved from [place], and is out of her inhalers for management of her emphysema. Patient states that she was diagnosed with COPD, pulmonary hypertension and a hole in her heart. She states she had heart surgery to repair the swollen her heartseveral years ago in [place]. She does state that she was advised [...] Description 01/14/2022 Appointment Radiology Ro Norton APRN, [place].N.P., D.N.P. [address] [phone] (Wo rk) 01/27/2022 Clinical Support Integrative Medicine Haris, Sohan y [address] [facility] [place] [phone] (Wo rk) Scheduled Orders Name Type Priority Associated Diagnoses Order S chedule Pulmonary Function PFT Routine Chronic Obstructive Ex pected: 05/07/2019 Tests Pulmonary Disease (Approxima te), Exacerbation (HC C) Expires: 05/06/2022 Other Secondary Pulmonary Hypertension (HCC) Scheduled Referrals Name Type Priority Associated Diagnoses Order [facility] Outpatient Referral Routine Chronic Obstructiv e Expected: office visit Pulmonary Disease 08/07/2019 (clinic) Exacerbation (HCC) (Approxim ate), Expires: 05/06/2022 documented as of this encounter Visit Diagnoses Diagnosis Chronic Obstructive Pulmonary Disease Ex acerbation (HCC) - Primary Other Secondary Pulmonary Hypertension ( HCC) documented in this encounter Care Teams Lumber Trimmer Relationship Specialty Start Date End Date Ro Norton APRN, C.N.P., PCP - General Family Medicine D.N.P. [address] [place] [phone] documented as of this encounter
--- OUTSIDE RECORDS SUMMARY | 2022-01-11 00:24 | XMS_ITS | Encounter Summary ---
:1970 Author Organization [facility] Address [address] [place] [address] Care Team Providers Name Role Phone Ro Norton APRN C.N.Kirsty, D.N.P. Primary Care Provider Encounter Details Date Type Department Care Team Description 10/23/2019 Documentation Department of Orthopedic Elyssa Lewis M.D. Surgery in [place], [facility] [address] [place], [place] [address] [place] [phone] [place] [phone] [phone] Social History Tobacco Use Types Packs/Day Years [...] or relatives? How often do you attend restorationist or Never 2021 jainism services? Do you belong to any clubs or No 02/25/2021 organizations such as restorationist groups, unions, fraternal or athletic groups, or [...] or slept in a correction (including now)? Sex Assigned at Date Recorded [...] Appointment Radiology Ro Norton APRN, C.N.P., D.N.P. [address] [phone] (Wo rk) 01/27/2022 Clinical Support Integrative Medicine Haris, Iv y [address] [place], [place] [phone] (Wo rk) documented as of this encounter Visit Diagnoses Not on filedocumented in this encounter Additional Health Concerns Infection Onset Date Last Indicated Resolved Time COVID19 Pending 10/23/2019 10/23/2019 10/23/2019 10:32 AM CDT documented as of this encounter Care Teams Quality Control Operator Relationship Specialty Start Date End Date Ro Norton APRN, C.N.P., PCP - General Family Medicine D.N.P. [address] [address] [place] [address] documented as of this encounter
--- OUTSIDE RECORDS SUMMARY | 2022-01-11 00:24 | XMS_ITS | Encounter Summary ---
:1970 Author Organization [facility] Address [address] [place] [address] Care Team Providers Name Role Phone Ro Norton APRN C.N.PRaffy, Katelynn.N.P. Primary Care Provider Encounter Details Date Type Department Care Team Description 08/07/2019 Clinical Communication Department of [facility] Ro Norton, Medicine, [place] MORGAN C.N.PRaffy, Clinic, in [place] [address] [phone] Social History Tobacco Use Types Packs/Day Years [...] do you attend gnosticism or Never 2021 uatsdin services? Do you [...] the phone between 7 am-6 pm, Monday-Monday. [place]: [phone] [place]: [phone] [place]: [phone] [place]: [phone] [place]: [phone] [place]: [phone] [place] or [place] clinics: [phone] [place], [place], or [place] clinics: [phone] [place]:[phone] [place]: [phone] Thank you for trusting your health care to [facility]. documented in this encounter Plan of Treatment Upcoming Encounters Date Type Specialty Care Team Description 01/14/2022 Appointment Radiology Ro Norton APRN, C.N.P., D.N.P. [address] [phone] (Wo rk) 01/27/2022 Clinical Support Integrative Medicine Haris, Iv y [address] [place], [place] [phone] (Wo rk) documented as of this encounter Visit Diagnoses Not on filedocumented in this encounter Care Teams Linter Saw Sharpener Relationship Specialty Start Date End Date Ro Norton APRN, C.N.P., PCP - General Family Medicine D.N.P. [address] [phone] documented as of this encounter
--- OUTSIDE RECORDS SUMMARY | 2022-01-11 00:24 | XMS_ITS | Encounter Summary ---
:1970 Author Organization [facility] Address [address] [place] [address] Care Team Providers Name Role Phone Ro Norton APRN C.N.Kirsty, D.N.P. Primary Care Provider Encounter Details Date Type Department Care Team Description 06/04/2019 E-Visit [facility] Paige Cooley, RE: E-Visit Submission: Care at the [place] MORGAN, C.N.PRaffy, [facility] [place] [facility] on the [address] D.N.P. Floor [address] [place] [address] [address] [place] [phone] Social History Tobacco Use Types Packs/Day Years [...] do you attend judaism or Never 2021 methodist services? Do you belong to any clubs [...] Appointment Radiology Ro Norton APRN, C.N.P., D.N.P. [address] [phone] (Wo rk) 01/27/2022 Clinical Support Integrative Medicine Haris, Iv y [address] [place], [place] [phone] (Wo rk) documented as of this encounter Visit Diagnoses Diagnosis Rhinitis - Primary documented in this encounter Care Teams Contract Technician Relationship Specialty Start Date End Date Ro Norton APRN, C.N.P., PCP - General Family Medicine D.N.P. [address] [phone] documented as of this encounter
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
--- OUTSIDE RECORDS SUMMARY | 2022-01-11 00:24 | XMS_ITS | Encounter Summary ---
:1970 Author Organization [facility] Address [address] [place] [address] Care Team Providers Name Role Phone Unavailable Primary Care Provider Unavailable Reason for Visit Reason Onset Date Comments Pre-visit Testing Orders 06/04/2018 Encounter Details Date Type Department Care Team Description 06/04/2018 Clinical Department of Sarah, Pre-visit Test ing Communication Cardiovascular Tim Cabrera [facility] Medicine in .[place], [place] [address] [facility] [address] [place] [phone] Social History Tobacco Use Types Packs/Day Years [...] do you attend spiritism or Never 2021 yarsani services? Do you [...] Appointment Radiology Ro Norton, MORGAN, C.N.P., D.N.P. [address] [phone] (Amanda goldman) 01/27/2022 Clinical Support Integrative Medicine Sohan Carballo y [address] [place], [place] [phone] (Amanda goldman) documented as of this encounter Visit Diagnoses Diagnosis Hypertension Pulmonary (HCC) - Primary documented in this encounter
--- OUTSIDE RECORDS SUMMARY | 2022-01-11 00:24 | XMS_ITS | Encounter Summary ---
:1970 Author Organization [facility] [place] Address [address] [place] [address] Care Team Providers Name Role Phone Ro Norton APRN C.N.P., D.N.P. Primary Care Provider Encounter Details Date Type Department Care Team Description 07/08/2019 Orders Only RST PCP [facility] MNT Ro Norton, Screen ing Mammogram Breast Cancer; MORGAN C.N.P., D. N.P. Screening Examination Diabetes Mellitus; [address] [place] [address] [place] [phone] (Wo rk) Social History Tobacco Use Types [...] do you attend cheondoism or Never 2021 anabaptism services? Do you [...] slept in a care home (including now)? Sex Assigned at Date Recorded Female 10/14/2020 12:54 PM CDT documented as of this encounter Plan of Treatment Upcoming Encounters Date Type Specialty Care Team Description 01/14/2022 Appointment Radiology Ro Norton APRN, C.N.P., D.N.P. [address] [phone] (Wo rk) 01/27/2022 Clinical Support Integrative Medicine Haris, Iv y [address] [place], [place] [phone] (Wo rk) documented as of this encounter Visit Diagnoses Diagnosis Screening Mammogram Breast Cancer Screening Examination Diabetes Mellitus Screening Lipid documented in this encounter Care Teams Sales Branch Manager Relationship Specialty Start Date End Date Ro Norton APRN, C.N.P., PCP - General Family Medicine D.N.P. [address] [phone] documented as of this encounter
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
--- OUTSIDE RECORDS SUMMARY | 2022-01-11 00:24 | XMS_ITS | Encounter Summary ---
:1970 Author Organization [facility] Address [address] [place] [address] Care Team Providers Name Role Phone Ro Norton APRN C.N.P., D.N.P. Primary Care Provider Reason for Visit Reason Comments Communication please triage Echo. Encounter Details Date Type Department Care Team Description 05/28/2019 Clinical Department of [place], Communication Communication Cardiovascular Kim Cabrera, (please tria ge Diseases in [place], R.NRaffy Echo. ) [address], [phone] [place] [phone] Social History Tobacco Use Types Packs/Day [...] do you attend religion or Never 2021 sabianism services? Do you [...] for medication refills. She recently moved from [place], and is out of her inhalers for management of her emphysema. Patient states that she was diagnosed with COPD, pulmonary hypertension and a hole in her heart. She states she had heart surgery to repair the swollen her heart several years ago in [place]. She does state that she was advised [...] Triage echo need ordered by Ro Norton CEMENT SIDE LASTER. No visit scheduled with Hearing Aid Technician. She ordered on 05/07/19 with visit for [...] Appointment Radiology Ro Norton APRN, C.N.P., D.N.P. [address] [phone] (Wo rk) 01/27/2022 Clinical Support Integrative Medicine Har[place], Iv y [address] [place], [place] [phone] (Wo rk) documented as of this encounter Visit Diagnoses Not on filedocumented in this encounter Care Teams Dog Or Animal Sitter Relationship Specialty Start Date End Date Ro Norton APRN, C.N.P., PCP - General Family Medicine D.N.P. [address] [phone] documented as of this encounter
[2022-01-11 00:26] LABS: Slide Review Reflex No
[2022-01-11 00:37] LABS: Chloride* 93 mmol/L (96-114); Sodium* 134 mmol/L (135-149)
[2022-01-11 00:40] LABS: Carbon Dioxide* 37 mmol/L (20-32); Creatinine* 0.7 mg/dL (0.5-1.5); Est. Creatinine Clearance* 73.36; Estimated Glomerular Filt Rate 106 ml/min
[2022-01-11 00:41] LABS: Blood Urea Nitrogen* 21 mg/dL (5-24); Calcium* 8.3 mg/dL (8.4-10.6); Glucose* 94 mg/dL (60-115)
[2022-01-11 00:50] LABS: NT Pro B Type NatriureticPept* 4530 PG/mL (0-125)
[2022-01-11] MEDS: ALBUTEROL SULFATE 2.5 MG/3 ML VIAL.NEB NEB (00:50)
[2022-01-11] MEDS: AZITHROMYCIN 250 MG TABLET 500 MG PO (01:03)
[2022-01-11] MEDS: cefTRIAXone 2 GM in 0.9 % SODIUM CHLORIDE Mini-bag 100 ML IVPB (01:03)
[2022-01-11 01:11] VITALS: BP 115/74; PULSE 94; RESP 24; O2SAT 95
[2022-01-11] MEDS: dexAMETHasone 10 MG/ML inj IVP (01:21)
[2022-01-11 02:30] VITALS: BP 115/74; PULSE 89; RESP 24; TEMP 36.7; O2SAT 95
== END 2022-01-11 02:30 | disposition home or self-care (01) ==
PROVIDERS: Emergency Provider Family Medicine
DX: J44.1 Chronic obstructive pulmonary disease with (acute) exacerbation (principal); I50.9 Heart failure, unspecified; J18.9 Pneumonia, unspecified organism; Z99.81 Dependence on supplemental oxygen
CPT/HCPCS: 36415; 71045; 80048; 82803; 83880; 85025; 94640; 94761; 96365; 96375; 99284; A9270; J0696; J1100

== ENCOUNTER 2022-01-17 11:41 | Emergency (ER) | payer MEDICAID, SELFPAY ==
[2022-01-17 11:56] VITALS: PULSE 96; RESP 28; TEMP 36.5; O2SAT 79; BMI 19.5
[2022-01-17] MEDS: IPRAT-ALBUT 0.5-2.5 MG/3 ML NEB 1 NEB IH (12:10)
--- NOTE | 2022-01-17 12:15 | ED.NURSE ---
pt doing better after duoneb. pt on 3 L O2/nc. sats 88%. pt talking in full sentences. dr. biggs in seeing pt.
--- NOTE | 2022-01-17 12:19 | CRLHL7_ITS ---
For Patients: As a result of the Century Cures Act, medical imaging exams and procedure reports are released immediately into your electronic medical record. You may view this report before your referring provider. If you have questions, please contact your health care provider. INDICATION: Shortness of breath TECHNIQUE: Chest 1 view COMPARISON: 01/11/2022, 06/27/2021, 10/03/2019 FINDINGS: Similar appearance of the chest with enlargement of the cardiac silhouette and aortic arch along with masslike density in the right hilar region. Postop changes median sternotomy. The interstitial markings appear similar in both lung bases. No pneumothorax. No pleural effusion. IMPRESSION: Chronic changes to the mediastinal contours, similar to prior exams. No definitive acute disease. Dictated by Pj Bronson MD @ 01/17/2022 1:07:06 PM (Electronically Signed)
--- NOTE | 2022-01-17 12:19 | ED.SOB ---
HPI - SOB/Dyspnea General Chief Complaint: Shortness of Breath/Dyspnea Stated Complaint: Difficulty breathing Time Seen by Provider: 01/17/22 12:10 History of Present Illness HPI Narrative: This 51-year-old female comes in with shortness of breath. She has history of COPD and continues to smoke. She also reports history of congestive heart failure and is taking Lasix. She does not report any chest pain. She is on oxygen at home as needed. Her oximetry was in the 70s and 80s%. She took a nebulizer treatment at home that did not help much. Soon after arrival here she received a DuoNeb treatment which helped her significantly. She is talking in complete sentences and does not appear short of breath. She is not using accessory muscles for breathing. Her oximetry is in the mid 80s% but her fingers are rather cool. Her baseline oximetry reading according to her report is around 88-90%. She did have some readings at the time of my initial visit of oximetry around 90 92% on nasal cannula oxygen. She states that she was seen several days ago and had a chest x-ray and labs done at that time. She also received an IV dose of steroid. She completed a Z-Rivera to treat a possible pneumonia. She states that those symptoms have cleared but she now has recurrent shortness of breath. She does not report any fevers and does not feel like she is ill with an infection. Related Data Home Medications Medication Instructions Recorded Confirmed albuterol sulfate 90 mcg/actuation 2 puff inhalation QID PRN 01/10/22 01/17/22 aerosol inhaler (ProAir HFA) furosemide 20 mg tablet 20 mg PO DAILY 01/10/22 01/17/22 ipratropium 0.5 mg-albuterol 3 mg 3 ml inhalation Q6H PRN 01/11/22 01/17/22 (2.5 mg base)/3 mL nebulization soln pramipexole 0.125 mg tablet 0.125 mg PO DAILY 01/11/22 01/17/22 prednisone 20 mg tablet 20 mg PO DAILY 01/11/22 01/17/22 sildenafil (pulm.hypertension) 20 20 mg PO DAILY 01/11/22 01/17/22 mg tablet Previous Rx's Medication Instructions Recorded methylprednisolone 4 mg tablets in See Rx Instructions PO .COMPLEX 01/17/22 a dose pack (Medrol (Rivera)) #21 ea Allergies Allergy/AdvReac Type Severity Reaction Status Date / Time Sulfa (Sulfonamide Allergy Severe Verified 01/17/22 12:07 Antibiotics) Review of Systems Status of ROS: Reports: 10 or more systems reviewed and unremarkable except as noted in History and below Narrative: Constitutional: No fevers, no weight gain or loss. Eyes: No discharge. No vision changes. HENT: No congestion, no sore throat, no ear pain. Cardiovascular: No chest pain, no palpitations. Respiratory: Shortness of breath. Occasional cough. Gastrointestinal: No abdominal pain, no vomiting, no diarrhea. Genitourinary: No dysuria, no hematuria. Musculoskeletal: Normal range of motion. Skin: No rashes, no pruritis. Neurological: No dizziness, weakness, sensory change, speech change. Endo/Heme/Allergies: No bruising or bleeding. No polydipsia. Pysch: no suicidality, no anxiety, no insomnia. All other systems reviewed and are negative. [facility] Medical History (Updated 01/17/22 @ 15:11 by Lorenzo Tyler MD) CHF (congestive heart failure) Constipation COPD (chronic obstructive pulmonary disease) Fracture of ribs, multiple Fracture of tibial plateau, closed Hemarthrosis Hypomagnesemia Severe pulmonary hypertension Shortness of breath Tobacco use Traumatic fracture of sternum Social History Smoking Status: Current every day smoker What tobacco products do you use: cigarettes Second hand tobacco smoke exposure: No How often do you have a drink containing alcohol: never AUDIT-C Alcohol total score: 0 Non-prescribed substance use: denies use Exam Narrative: Exam Narrative: Constitutional: Well-developed, well-nourished, no acute distress. HEENT: Normocephalic, atraumatic. Neck: Normal range of motion. Nontender. Supple. Heart: Regular. No murmurs. Normal rate. Intact distal pulses. Lungs: Clear to auscultation. No chest discomfort. No wheezes, rhonchi, or rales. Oximetry decreased at around 90% on nasal cannula oxygen. Abdomen: Normal bowel sounds. Nontender. No rebound tenderness. Genitalia: Deferred. Back: No midline tenderness. Normal range of motion. Extremities: Normal range of motion. No injury. No pedal edema. Skin: Intact. No rash. Warm. No erythema or pallor. Neurologic: No altered sensation. No weakness. Alert and oriented. Psychiatric: No suicidality. No anxiety or depression. No insomnia. Nursing notes and vitals signs are reviewed. Const: Vital Signs, click to edit/add: Vital Signs - 24 hr 01/17/22 11:56 01/17/22 12:37 01/17/22 14:20 Temperature 97.7 F Pulse Rate [Right Pulse Oximeter] 96 86 Respiratory Rate 28 H 22 Blood Pressure [Ri ght Upper Arm] 134/100 H Pulse Oximetry 79 L 89 87 L Oxygen Delivery Me thod Room Air Nasal Cannula Course Vital Signs Vital signs: Initial Vital Signs Temperature 97.7 F 01/17/22 11:56 Temperature Source Temporal Artery Scan 01/17/22 11:56 Pulse Rate 96 01/17/22 11:56 Respiratory Rate 28 H 01/17/22 11:56 Blood Pressure Position Sitting 01/17/22 11:56 Pulse Oximetry 79 L 01/17/22 11:56 Oxygen Delivery Method 01/17/22 11:56 Vital Signs Temperature 97.7 F 01/17/22 11:56 Pulse Rate 96 01/17/22 11:56 Respiratory Rate 28 H 01/17/22 11:56 Pulse Oximetry 79 L 01/17/22 11:56 Oxygen Delivery Method 01/17/22 11:56 Temperature 97.7 F 01/17/22 11:56 Pulse Rate 86 01/17/22 14:20 Respiratory Rate 22 01/17/22 14:20 Blood Pressure 134/100 H 01/17/22 14:20 Pulse Oximetry 87 L 01/17/22 14:20 Oxygen Delivery Method 01/17/22 12:37 MDM - SOB/Dyspnea MDM Narrative Medical decision making narrative: This patient comes in with shortness of breath. She has COPD and CHF. She uses oxygen at home. She continues to smoke but states that she is trying to quit. She did finish a Z-Rivera recently and states that she does not feel that she has symptoms of infection. She states that her oximetry is typically in the upper 80s%. This is her baseline and C seems to be functioning at that currently. Chest x-ray today is not normal but does not show any new findings compared to previous. The patient states that she feels much better and back to her normal. She is able to talk in complete sentences and shows no use of accessory muscles for breathing. She is okay to return home and encouraged to completely quit smoking. I did prescribe Medrol Dosepak. She has oxygen and inhalers that can be used at home. Discharge Plan Discharge Clinical Impression: Acute infective exacerbation of chronic obstructive airway disease Patient Disposition: Home, Self-Care Condition: Stable Additional Instructions: Take medication as prescribed. Follow up with MD or return if worsening. Prescriptions: New methylprednisolone [Medrol (Rivera)] 4 mg tablets,dose pack See Rx Instructions .ROUTE .COMPLEX Qty: 21 0RF Rx Instructions: orally per package directions No Action albuterol sulfate [ProAir HFA] 90 mcg/actuation HFA aerosol inhaler 2 puff INHALATION QID PRN furosemide 20 mg tablet 20 mg PO DAILY ipratropium-albuterol 0.5 mg-3 mg(2.5 mg base)/3 mL solution for nebulization 3 ml INHALATION Q6H PRN pramipexole 0.125 mg tablet 0.125 mg PO DAILY prednisone 20 mg tablet 20 mg PO DAILY sildenafil (pulm.hypertension) 20 mg tablet 20 mg PO DAILY Follow Up/Referrals: Provider,Not a Local [Primary Care Provider] - Stand Alone Forms: [employer] Info Instructions
[2022-01-17 12:37] VITALS: O2SAT 89
--- NOTE | 2022-01-17 12:38 | RESP.RT ---
Pt seen. On 3L NC, SPO2 92%. RN reports saturations improved with a Duoneb. BBS with fair aeration, scattered crackles in bases. Pt reports wearing oxygen at home between 1-3 L at night, will use during the day at times. Pt getting CXR. Would not increase oxygen or start a modality without checking an ABG or VBG. Would give Albuterol neb within the next hour. Pt with harsh dry cough.
--- OUTSIDE RECORDS SUMMARY | 2022-01-17 13:07 | XMS_ITS | Encounter Summary ---
:1970 Author Organization [facility] Address [address] [place] [address] Care Team Providers Name Role Phone Ro Norton APRN C.N.P., D.N.P. Primary Care Provider Reason for Visit Reason Comments Leg Swelling Pt comes in for evaluation o f lower leg edema and facial swelling. This is different from Monday' s visit, per pt report. Encounter Details Date Type Department Care Team Description 01/07/2022 Emergency [place] [facility] Pj Jones F luid Overload Unspecified (Primary Dx); Department C.N.P. Edema Leg [address] [place] [address] [address] [place], [place] Juaquin Martínez [address] [place], [place] [phone] (Wo rk) Social History Tobacco Use [...] do you attend judaism or Never 2021 mosque services? Do you [...] Comments Blood Pressure 116/80 01/07/2022 8:00 PM WILLOW WORKER Pulse 93 01/07/2022 8:00 PM WILLOW WORKER Temperature 36.4 ??C (97.5 ??F) 01/07/2022 7:31 PM WILLOW WORKER Respiratory Rate 22 01/07/2022 8:00 PM WILLOW WORKER Oxygen Saturation 85% 01/07/2022 8:00 PM WILLOW WORKER Inhaled Oxygen Concentration - - Weight 72.4 kg (159 lb 9.8 oz) 01/07/2022 7:26 PM WILLOW WORKER Height - - Body Mass Index 22.42 [...] any chest pain. Thank you for utilizing [facility] for your care! OW WORKER documented in this encounter Medications at Time [...] 8. Agitated saline contrast administered. 9. No pxdro-gs-iixd shunt at atrial level at rest or with Valsalva release. 10. No intrapulmonary shunt. History provided by: Patient photograph developer needed/used: no REVIEW OF SYSTEMS Constitutional: Negative [...] - RIGHT; Surgeon: Moon Fields M.D.; Location: [facility] NITRIC OXIDE STUDY N/A 09/29/2020 Procedure: NITRIC OXIDE STUDY; Surgeon: Moon Fields M.D.; Location: [facility] CCL OPEN REDUCTION INTERNAL FIXATION TIBIA Left [...] Specialty: Family Medicine Relationship: PCP - General [address] [place] [phone] Next Steps: Follow up in 1 week(s) Instructions: As needed Pj Jones, GENNY, WAISTLINE JOINER OVERLOCK, METAPHYSICS TEACHER-C, AGACNP-BC, ENP-C Emergency Medicine Pj Jones C.N.P. 01/07/222050 OW WORKER documented in this encounter Plan of Treatment Upcoming Encounters Date Type Specialty Care Team Description 01/21/2022 Appointment Radiology Ro Norton APRN, C.N.P., D.N.P. [address] [place] [phone] (Wo rk) 01/27/2022 Clinical Support Integrative Medicine Sohan Carballo y [facility] [place]to [place], [place] [phone] (Wo rk) documented as of this encounter Procedures Procedure Name Priority Date/Time Associated Comments Diagnosis DX CHEST AP OR PA RAD - Semiurgent 01/07/2022 8:09 Res ults for AND LATERAL 2 VIEWS (Fast; most ED PM WILLOW WORKER this p rocedure patients; some are in the inpatients) results section. NT-PRO B-TYPE STAT 01/07/2022 8:01 Results for NATRIURETIC PEPTIDE PM WILLOW WORKER this pro cedure (BNP), S are in the results section. CBC WITHOUT STAT 01/07/2022 8:01 Results for DIFFERENTIAL, B PM WILLOW WORKER this procedu re are in the results section. COMPREHENSIVE STAT 01/07/2022 8:01 Results for METABOLIC PANEL, S/P PM WILLOW WORKER this pr ocedure are in the results section. documented in this encounter Results DX Chest AP or PA and Lateral 2 Views (01/07/2022 8:09 PM WILLOW WORKER) Anatomical Region Laterality Modality Chest, Thoracic RST LOS, Thoracic ARZ LOS, Thoracic N/A Digital Radiography FLA LOS Specimen (Source) Anatomical Collection Method Collection Time Re ceived Time Location / / Volume Laterality 01/07/2022 8:14 PM WILLOW WORKER Impressions 01/07/2022 8:16 PM WILLOW WORKER Stable cardiomegaly and enlarged central pulmonary arteries, as can be seen with pulmonary hypertension. No pneumothorax. Increased mild bilateral mid and lower lung opacities could be seen with asymmetric pulmonary edema or multifocal pneumonia. Trace bilateral pleural effusions. Comparison: 12/31/2021 Narrative 01/07/2022 8:16 PM WILLOW WORKER EXAM: DX CHEST AP OR PA [...] B-Type Natriuretic Peptide (BNP) (01/07/2022 8:01 PM WILLOW WORKER) athologist Signature NT-Pro BNP 2344 (H) <=141 pg/mL 01/07/2022 CNFL 8:35 PM WILLOW WORKER Comment: NT-proBNP values less than 300 [...] (Blood, 01/07/2022 8:01 PM 01/08/20 8:03 Venous) WILLOW WORKER PM WILLOW WORKER Pj Jones C.N.P. LAB BLOOD ADD-ON Performing Organization Address City/State/ZIP Code Phon e Number [facility]- [address] [place] [phone] [place] [address] [address] (ABNORMAL) Comprehensive Metabolic Panel (01/07/2022 8:01 PM WILLOW WORKER) athologist Signature Potassium, P 3.8 3.6 - 5.2 01/07/2022 CNFL mmol/L 8:24 PM WILLOW WORKER Sodium, P 138 135 - 145 01/07/2022 CNFL mmol/L 8:24 PM WILLOW WORKER Chloride, P 96 (L) 98 - 107 01/07/2022 CNFL mmol/L 8:24 PM WILLOW WORKER Bicarbonate, P 32 (H) 22 - 29 01/07/2022 CNFL mmol/L 8:24 PM WILLOW WORKER Anion Gap, P 10 7 - 15 01/07/2022 CNFL 8:24 PM WILLOW WORKER BUN (Blood Urea 19 6 - 21 01/07/2022 CNFL Nitrogen), P mg/dL 8:24 PM WILLOW WORKER Creatinine 0.73 0.59 - 01/07/2022 CNFL 1.04 mg/dL 8:24 PM WILLOW WORKER Estimated GFR >90 >=60 01/07/2022 CNFL (eGFR) mL/min/BSA 8:24 PM WILLOW WORKER Comment: Estimated GFR calculated using the 2020 CKD_EPI creatinine equation. Calcium, Total, P 8.5 (L) 8.6 - 10.0 mg/dL 01/07/2022 8:24 PM WILLOW WORKER CNFL Glucose, P 126 70 - 140 mg/dL 01/07/2022 8:24 PM WILLOW WORKER C NFL Protein, Total, P 6.8 6.3 - 7.9 g/dL 01/07/2022 8:24 P M WILLOW WORKER CNFL Albumin, P 3.0 (L) 3.5 - 5.0 g/dL 01/07/2022 8:24 PM WILLOW WORKER C NFL Aspartate Aminotransferase 79 (H) 8 - 43 U/L 01/07/2022 8 :24 PM WILLOW WORKER CNFL (AST), P Alkaline Phosphatase, P 270 (H) 35 - 104 U/L 01/07/2022 8: 24 PM WILLOW WORKER CNFL Alanine Aminotransferase 100 (H) 7 - 45 U/L 01/07/2022 8:2 4 PM WILLOW WORKER CNFL (ALT), P Bilirubin, Total, P 0.8 <=1.2 mg/dL 01/07/2022 8:24 PM WILLOW WORKER CNFL Specimen Anatomical Collection Method Collection Time Receive d Time (Source) Location / / Volume Laterality Blood (Blood, 01/07/2022 8:01 PM 01/08/20 8:03 Venous) WILLOW WORKER PM WILLOW WORKER Pj Jones C.N.P. LAB BLOOD ADD-ON Performing Organization Address City/State/ZIP Code Phon e Number [facility] [address] [place] [phone] [place] [address] (ABNORMAL) CBC without Differential (01/07/2022 8:01 PM WILLOW WORKER) [facility] gist Method Time Signature Hemoglobin 17.3 (H) 11.6 - 01/07/2022 CNFL 15.0 g/dL 8:17 PM WILLOW WORKER Hematocrit 53.5 (H) 35.5 - 01/07/2022 CNFL 44.9 % 8:17 PM WILLOW WORKER Erythrocytes 5.35 (H) 3.92 - 01/07/2022 CNFL 5.13 8:17 PM WILLOW WORKER x10(12)/L MCV 100.0 (H) 78.2 - 01/07/2022 CNFL 97.9 fL 8:17 PM WILLOW WORKER RBC Distrib Width 14.2 12.2 - 01/07/2022 CNFL 16.1 % 8:17 PM WILLOW WORKER Platelet Count 196 157 - 371 01/07/2022 CNFL x10(9)/L 8:17 PM WILLOW WORKER Leukocytes 16.1 (H) 3.4 - 9.6 01/07/2022 CNFL x10(9)/L 8:17 PM WILLOW WORKER Specimen Anatomical Collection Method Collection Time Receive d Time (Source) Location / / Volume Laterality Blood (Blood, 01/07/2022 8:01 PM 01/08/20 8:03 Venous) WILLOW WORKER PM WILLOW WORKER Pj Jones C.N.P. LAB BLOOD ADD-ON Performing Organization Address City/State/ZIP Code Phon e Number [facility]- [address] [place] [phone] [place] [address] [place] [address] [address] documented in this encounter Visit Diagnoses Diagnosis Fluid Overload Unspecified - Primary Edema Leg documented in this encounter Administered Medications Inactive Administered Medications - up to 3 most recent administrations Medication Order MAR Action Action Date Dose Rate Site furosemide injection 60 mg (LASIX) Given 01/07/2022 8:09 PM WILLOW WORKER 60 mg 60 mg, intravenous, Once, On [...] Recently Administered Medications Times are shown in WILLOW WORKER. Scheduled Medication Order 01/05/2022 01/06/2022 01/07/2022 furosemide [...] /minute. documented in this encounter Care Teams Loan Interviewer Mortgage Relationship Specialty Start Date End Date Ro Norton APRN, C.N.P., PCP - General Family Medicine D.N.P. [address] [address] documented as of this encounter
--- OUTSIDE RECORDS SUMMARY | 2022-01-17 13:07 | XMS_ITS | Encounter Summary ---
:1970 Author Organization [facility] Address [address] [place] [address] Care Team Providers Name Role Phone Ro Norton APRN C.N.P., D.N.P. Primary Care Provider Reason for Visit Reason Comments Vaginal Discharge Encounter Details Date Type Department Care Team Description 07/17/2021 Telemedicine [facility] Sangeetha España Vaginal Care at [facility] in [place] P.A.-C. (Primary Dx) Bryon [place] [phone] [facility] [place] [address] [phone] Social History Tobacco Use Types Packs/Day Years [...] do you attend gnosticism or Never 2021 latter day services? Do [...] real-time audio/video technology by Yecenia España P.A.-C., [facility] on 07/17/2021. SUBJECTIVE CHIEF COMPLAINT/REASON FOR VISIT Dixie Discharge Allison is a 50 y.o. female who requested evaluation of Vaginal discharge. A video visit was conducted this morning with the patient from the [facility] in [place], [place]. The patient states for 2 days [...] go into her local clinic for a [id number]-sa-[id number] visit and evaluation. I also told the patient she could purchase an zaen-wlt-vbtaggh topical anti-yeast cream and apply this externally for some relief of her pruritus. She is to try to keep the vaginal area clean and drywith good air circulation; I therefore recommended loose fitting clothing. Patient voices understanding and is in agreement of plan. @[email or web address]@ Consult conducted via real-time audio/video technology by Y[facility]enia España [facility].A.-C[facility] Consult conducted via real-time video technology by Charleen Blanca [facility] [place] the patient Allison Schulz on 07/17/2021. I personally spent a total of 10 minutes in gem-zbyx-mk-face video encounter performing a review of the record and/or discussion with the patient/caregiver as described above. The majority of the time was spent in the counseling and coordination of care. Yecenia España P.A.-C. documented in this encounter Plan of Treatment Upcoming Encounters Date Type Specialty Care Team Description 01/21/2022 Appointment Radiology Ro Norton APRN, C.N.P., D.N.P. [address] [phone] (Wo rk) 01/27/2022 Clinical Support Integrative Medicine Haris, Iv y [address] [place], [place] [phone] (Wo rk) documented as of this encounter Visit Diagnoses Diagnosis Discharge Vaginal - Primary documented in this encounter Care Teams Cinder Pitman Relationship Specialty Start Date End Date Ro Norton APRN, C.N.P., PCP - General Family Medicine D.N.P. [address] [phone] documented as of this encounter
--- OUTSIDE RECORDS SUMMARY | 2022-01-17 13:07 | XMS_ITS | Encounter Summary ---
:1970 Author Organization [facility] Address [address] [place] [address] Care Team Providers Name Role Phone Ro Norton APRN, C.N.P., D.N.P. Primary Care Provider Reason for Visit Reason Comments Form Review Medical opinion form Encounter Details Date Type Department Care Team Description 08/03/2021 Clinical Communication Department of Ro Norton Review Family MedicineElan APRN, (Medical op inion [place] C.N.P., D.N.P. form ) Clinic, in [address] [address] [place], [place] [phone] (Work) [phone] Social History Tobacco Use Types Packs/Day Years [...] do you attend jain or Never 2021 caodaism services? Do you [...] Form emailed to Ro Norton for review/signature ADDICTION THERAPIST: [facility] PHONE NUMBER: [phone] INFO REQUESTED: Medical Opinion Form INSTRUCTIONS: Fax back to [phone] Telephone Encounter - Mary Cali - 08/03/2021 3:32 PM CDT Work Comp form received by [facility] Forms Team on 08/03/21 from patient. Please allow 7-10 business days for form completion documented in this encounter Plan of Treatment Upcoming Encounters Date Type Specialty Care Team Description 01/21/2022 Appointment Radiology Ro Norton APRN, C.N.P., D.N.P. [address] [phone] (Wo rk) 01/27/2022 Clinical Support Integrative Medicine Haris, Iv y [address] [place], [place] [phone] (Wo rk) documented as of this encounter Visit Diagnoses Not on filedocumented in this encounter Care Teams Sports Director Relationship Specialty Start Date End Date Ro Norton APRN, C.N.P., PCP - General Family Medicine D.N.P. [address] [phone] documented as of this encounter
--- OUTSIDE RECORDS SUMMARY | 2022-01-17 13:07 | XMS_ITS | Encounter Summary ---
:1970 Author Organization [facility] Address [address] [place] [address] Care Team Providers Name Role Phone Ro Norton APRN C.N.P., D.N.P. Primary Care Provider Encounter Details Date Type Department Care Team Description 07/23/2021 Orders Only Department of [facility] Ro Norton AP RN, Medicine, [place] C.N.P., D .N.P. [facility], [address] [phone] [place] [phone] Social History Tobacco Use Types Packs/Day Years [...] do you attend hindu or Never 2021 faith services? Do you [...] Appointment Radiology Ro Norton APRN, C.N.P., D.N.P. [address] [phone] (Amanda goldman) 01/27/2022 Clinical Support Integrative Medicine Haris, Iv y [address] [place], [place] [phone] (Amanda goldman) documented as of this encounter Visit Diagnoses Not on filedocumented in this encounter Care Teams Oilseed Meat Presser Relationship Specialty Start Date End Date Ro Norton APRN, C.N.P., PCP - General Family Medicine D.N.P. [address] [phone] documented as of this encounter
--- OUTSIDE RECORDS SUMMARY | 2022-01-17 13:07 | XMS_ITS | Encounter Summary ---
:1970 Author Organization [facility] Address [address] [place] [address] Care Team Providers Name Role Phone Ro Norton APRN, C.N.P., D.N.P. Primary Care Provider Encounter Details Date Type Department Care Team Description 09/21/2021 Orders Only Pharmacy Prior Auth [place] Paulette Barrera [phone] Social History Tobacco Use Types Packs/Day Years [...] do you attend anabaptism or Never 2021 jewish services? Do you [...] Appointment Radiology Ro Norton APRN, C.N.P., D.N.P. [address] [phone] (Wo rk) 01/27/2022 Clinical Support Integrative Medicine Haris, Iv y [address] [place], [place] [phone] (Wo rk) documented as of this encounter Visit Diagnoses Not on filedocumented in this encounter Care Teams Telecommunications Line Installer Relationship Specialty Start Date End Date Ro Norton APRN, C.N.P., PCP - General Family Medicine D.N.P. [address] [phone] documented as of this encounter
--- OUTSIDE RECORDS SUMMARY | 2022-01-17 13:07 | XMS_ITS | Clinical Summary ---
:1970 Author Organization [facility] Address [address] [place] [address] Care Team Providers Name Role Phone Ro Norton APRN C.N.P., D.N.P. Primary Care Provider Source Comments Patient records contain information from all sites at [facility]. For routine questions regarding patient records, call [phone] during business hours, M-F 8:00 AM - 5:00 PM Central Time. Record requests for emergency care only can be directed to [phone] at any time.[facility] Allergies Active Allergy Reactions Severity Noted [...] Added automatically from request for stan pedersen [id number] Constipation 10/26/2019 Hypomagnesemia 10/24/2019 Observation Following Motor [...] or relatives? How often do you attend worship or Never 2021 zoroastrian services? Do you belong to any clubs or No 02/25/2021 organizations such as worship groups, unions, fraternal or athletic groups, or [...] Comments Blood Pressure 116/80 01/07/2022 8:00 PM CLOTHES DRIER REPAIRER Pulse 93 01/07/2022 8:00 PM CLOTHES DRIER REPAIRER Temperature 36.4 ??C (97.5 ??F) 01/07/2022 7:31 PM CLOTHES DRIER REPAIRER Respiratory Rate 22 01/07/2022 8:00 PM CLOTHES DRIER REPAIRER Oxygen Saturation 85% 01/07/2022 8:00 PM CLOTHES DRIER REPAIRER Inhaled Oxygen Concentration - - Weight 72.4 kg (159 lb 9.8 oz) 01/07/2022 7:26 PM CLOTHES DRIER REPAIRER Height 179.7 cm (5' 10.75) 09/29/2020 10:43 AM CDT Body Mass Index 22.42 09/29/2020 10:43 AM CDT Plan of Treatment Upcoming Encounters Date Type Specialty Care Team Description 01/21/2022 Appointment Radiology Ro Norton APRN, C.N.P., D.N.P. [id number] [phone] (Wo rk) 01/27/2022 Clinical Support Integrative Medicine Sohan Carballo y [address] [place], [place] [phone] (Wo rk) Health Maintenance [...] 07/23/2021, 08/19/2020 Medical Devices Implanted Type Area Doughnut Maker Device Shelf Model / Identifier Expiration Serial / Date Lot Scrw Dcp St Fthrd 3.5x75 - [id number] Hardware Left: Depuy Syn thes 204.875 / Implanted: Qty: 1 on 10/24/2019 by Raudel Lewis M.D. at [facility] e.g. Tibia / pins/screws/ rods Procedures Procedure Name Priority Date/Time Associated Comments Diagnosis DX CHEST AP OR PA RAD - Semiurgent 01/07/2022 8:09 Res ults for AND LATERAL 2 VIEWS (Fast; most ED PM CLOTHES DRIER REPAIRER this p rocedure patients; some are in the inpatients) results section. NT-PRO B-TYPE STAT 01/07/2022 8:01 Results for NATRIURETIC PEPTIDE PM CLOTHES DRIER REPAIRER this pro cedure (BNP), S are in the results section. COMPREHENSIVE STAT 01/07/2022 8:01 Results for METABOLIC PANEL, S/P PM CLOTHES DRIER REPAIRER this pr ocedure are in the results section. CBC WITHOUT STAT 01/07/2022 8:01 Results for DIFFERENTIAL, B PM CLOTHES DRIER REPAIRER this procedu re are in the results section. CRITICAL CARE Routine 12/31/2021 1:25 Results for PM CLOTHES DRIER REPAIRER this procedure are in the results section. TROPONIN T, 2H/6H, Timed 12/31/2021 11:31 Resul ts for 5TH GEN, P AM CLOTHES DRIER REPAIRER this procedure are in the results section. DX CHEST AP OR PA RAD - Semiurgent 12/31/2021 9:23 Res ults for AND LATERAL 2 VIEWS (Fast; most ED AM CLOTHES DRIER REPAIRER this p rocedure patients; some are in the inpatients) results section. HC BLD GASES ANY Routine 12/31/2021 9:22 Results for COMBINATION AM CLOTHES DRIER REPAIRER this procedure are in the results section. BLOOD GAS, POCT, B STAT 12/31/2021 9:10 Result s for AM CLOTHES DRIER REPAIRER this procedure are in the results section. TROPONIN T, STAT 12/31/2021 9:10 Results for BASELINE, 5TH GEN, P AM CLOTHES DRIER REPAIRER this pr ocedure are in the results section. BASIC METABOLIC STAT 12/31/2021 9:10 Results f or PANEL, S/P AM CLOTHES DRIER REPAIRER this procedure are in the results section. CBC WITH STAT 12/31/2021 9:10 Results for DIFFERENTIAL, B AM CLOTHES DRIER REPAIRER this procedu re are in the results section. IFLU A, B, SARS STAT 12/31/2021 9:10 Results f or COV-2, PCR, RAPID,V AM CLOTHES DRIER REPAIRER this pro cedure are in the results section. ECG STAT 12/31/2021 8:45 Results for AM CLOTHES DRIER REPAIRER this procedure are in the results section. from Last 3 Months Results DX Chest AP or PA and Lateral 2 Views (01/07/2022 8:09 PM CLOTHES DRIER REPAIRER)Only the most recent of2 resultswithin the time period is included. Anatomical Region Laterality Modality Chest, Thoracic RST LOS, Thoracic ARZ LOS, Thoracic N/A Digital Radiography FLA LOS Specimen (Source) Anatomical Collection Method Collection Time Re ceived Time Location / / Volume Laterality 01/07/2022 8:14 PM CLOTHES DRIER REPAIRER Impressions 01/07/2022 8:16 PM CLOTHES DRIER REPAIRER Stable cardiomegaly and enlarged central pulmonary arteries, as can be seen with pulmonary hypertension. No pneumothorax. Increased mild bilateral mid and lower lung opacities could be seen with asymmetric pulmonary edema or multifocal pneumonia. Trace bilateral pleural effusions. Comparison: 12/31/2021 Narrative 01/07/2022 8:16 PM CLOTHES DRIER REPAIRER EXAM: DX CHEST AP OR PA AND [...] B-Type Natriuretic Peptide (BNP) (01/07/2022 8:01 PM CLOTHES DRIER REPAIRER) P athologist Signature NT-Pro BNP 2344 (H) <=141 pg/mL 01/07/2022 CNFL 8:35 PM CLOTHES DRIER REPAIRER Comment: NT-proBNP values less than 300 pg/mL [...] (Blood, 01/07/2022 8:01 PM 01/08/20 8:03 Venous) CLOTHES DRIER REPAIRER PM CLOTHES DRIER REPAIRER Pj Jones C.N.P. LAB BLOOD ADD-ON Performing Organization Address City/State/ZIP Code Phon e Number [facility]- [address] [place] [phone] [place] [address] [address] (ABNORMAL) CBC without Differential (01/07/2022 8:01 PM CLOTHES DRIER REPAIRER) Patholo gist Method Time Signature Hemoglobin 17.3 (H) 11.6 - 01/07/2022 CNFL 15.0 g/dL 8:17 PM CLOTHES DRIER REPAIRER Hematocrit 53.5 (H) 35.5 - 01/07/2022 CNFL 44.9 % 8:17 PM CLOTHES DRIER REPAIRER Erythrocytes 5.35 (H) 3.92 - 01/07/2022 CNFL 5.13 8:17 PM CLOTHES DRIER REPAIRER x10(12)/L MCV 100.0 (H) 78.2 - 01/07/2022 CNFL 97.9 fL 8:17 PM CLOTHES DRIER REPAIRER RBC Distrib Width 14.2 12.2 - 01/07/2022 CNFL 16.1 % 8:17 PM CLOTHES DRIER REPAIRER Platelet Count 196 157 - 371 01/07/2022 CNFL x10(9)/L 8:17 PM CLOTHES DRIER REPAIRER Leukocytes 16.1 (H) 3.4 - 9.6 01/07/2022 CNFL x10(9)/L 8:17 PM CLOTHES DRIER REPAIRER Specimen Anatomical Collection Method Collection Time Receive d Time (Source) Location / / Volume Laterality Blood (Blood, 01/07/2022 8:01 PM 01/08/20 8:03 Venous) CLOTHES DRIER REPAIRER PM CLOTHES DRIER REPAIRER Pj Jones C.N.P. LAB BLOOD ADD-ON Performing Organization Address City/State/ZIP Code Phon e Number [address] [address] [place] [address] [address] (ABNORMAL) Comprehensive Metabolic Panel (01/07/2022 8:01 PM CLOTHES DRIER REPAIRER) P athologist Signature Potassium, P 3.8 3.6 - 5.2 01/07/2022 CNFL mmol/L 8:24 PM CLOTHES DRIER REPAIRER Sodium, P 138 135 - 145 01/07/2022 CNFL mmol/L 8:24 PM CLOTHES DRIER REPAIRER Chloride, P 96 (L) 98 - 107 01/07/2022 CNFL mmol/L 8:24 PM CLOTHES DRIER REPAIRER Bicarbonate, P 32 (H) 22 - 29 01/07/2022 CNFL mmol/L 8:24 PM CLOTHES DRIER REPAIRER Anion Gap, P 10 7 - 15 01/07/2022 CNFL 8:24 PM CLOTHES DRIER REPAIRER BUN (Blood Urea 19 6 - 21 01/07/2022 CNFL Nitrogen), P mg/dL 8:24 PM CLOTHES DRIER REPAIRER Creatinine 0.73 0.59 - 01/07/2022 CNFL 1.04 mg/dL 8:24 PM CLOTHES DRIER REPAIRER Estimated GFR >90 >=60 01/07/2022 CNFL (eGFR) mL/min/BSA 8:24 PM CLOTHES DRIER REPAIRER Comment: Estimated GFR calculated using the 2020 CKD_EPI creatinine equation. Calcium, Total, P 8.5 (L) 8.6 - 10.0 mg/dL 01/07/2022 8:24 PM CLOTHES DRIER REPAIRER CNFL Glucose, P 126 70 - 140 mg/dL 01/07/2022 8:24 PM CLOTHES DRIER REPAIRER C NFL Protein, Total, P 6.8 6.3 - 7.9 g/dL 01/07/2022 8:24 P M CLOTHES DRIER REPAIRER CNFL Albumin, P 3.0 (L) 3.5 - 5.0 g/dL 01/07/2022 8:24 PM CLOTHES DRIER REPAIRER C NFL Aspartate Aminotransferase 79 (H) 8 - 43 U/L 01/07/2022 8 :24 PM CLOTHES DRIER REPAIRER CNFL (AST), P Alkaline Phosphatase, P 270 (H) 35 - 104 U/L 01/07/2022 8: 24 PM CLOTHES DRIER REPAIRER CNFL Alanine Aminotransferase 100 (H) 7 - 45 U/L 01/07/2022 8:2 4 PM CLOTHES DRIER REPAIRER CNFL (ALT), P Bilirubin, Total, P 0.8 <=1.2 mg/dL 01/07/2022 8:24 PM CLOTHES DRIER REPAIRER CNFL Specimen Anatomical Collection Method Collection Time Receive d Time (Source) Location / / Volume Laterality Blood (Blood, 01/07/2022 8:01 PM 01/08/20 8:03 Venous) CLOTHES DRIER REPAIRER PM CLOTHES DRIER REPAIRER Pj Jones C.N.P. LAB BLOOD ADD-ON Performing Organization Address City/State/ZIP Code Phon e Number [phone] [place] [address] [place] [address] System [address] Critical Care (12/31/2021 1:25 PM CLOTHES DRIER REPAIRER) Narrative Karine Goins P.A.-C. - 12/31/2021 1:25 PM CLOTHES DRIER REPAIRER Karine Goins P.A.-C. ? 12/31/2021 ??3:29 PM [...] T, 2H/6H, 5th Gen (12/31/2021 11:31 AM CLOTHES DRIER REPAIRER) P athologist Signature Troponin T, 2 12 (H) <=10 ng/L 12/31/2021 CNFL hr, 5th gen 12:01 PM CLOTHES DRIER REPAIRER Comment: Biotin has been identified by the edna levy as a potential interfering substance. Higher concentrations of biotin may be found in multivitamins, mcgregor ir/nail supplements, and workout supplements. If the result d oes not match clinical observations, repeat testing af ter patient refrains from the use of supplements for at least 12 hours. 2H Delta -3 ng/L 12/31/2021 12:01 PM CLOTHES DRIER REPAIRER CNFL 2H Delta Interp Not Changing 12/31/2021 12:[address] CNFL Troponin T, 6 hr, 5th gen CANCELED ng/L 12/31/2021 12: 01 PM CLOTHES DRIER REPAIRER CNFL Comment: Result canceled by the esha mejia Specimen Anatomical Collection Method Collection Time Receive d Time (Source) Location / / Volume Laterality Blood (Blood, 12/31/2021 11:31 12/31/2021 Venous) AM CLOTHES DRIER REPAIRER 11:33 AM CLOTHES DRIER REPAIRER Narrative [facility] - 12/31/2021 12:01 PM CLOTHES DRIER REPAIRER Specimen Information: Specimen ID: [id number] Specimen Type: Blood Specimen Collection Start Date: 022 11:31 AM Specimen Received Date: 12/31/2021 11:3 3 AM Specimen ID: [id number] Specimen Type: Blood Karine Goins P.A.-C. LAB BLOOD TROPONIN Performing Organization Address City/State/ZIP Code Phon e Number [address] [id number] [place] [address] [address] (ABNORMAL) VBG (Venous Blood Gas), POCT (12/31/2021 9:22 AM CLOTHES DRIER REPAIRER) [facility] Method Time Signature pH, Venous, 7.41 7.32 - 7.43 12/31/2021 CNFL POCT, B 9:22 AM CLOTHES DRIER REPAIRER pCO2, Venous, 58 (H) 41 - 51 mm Hg 12/31/2021 CNFL POCT, B 9:22 AM CLOTHES DRIER REPAIRER pO2, Venous, 28 Not applicable 12/31/2021 CNFL POCT, B mm Hg 9:22 AM CLOTHES DRIER REPAIRER HCO3, Venous, 37 Not applicable 12/31/2021 CNFL POCT, B mmol/L 9:22 AM CLOTHES DRIER REPAIRER Base Excess, 12 Not applicable 12/31/2021 CNFL Venous, POCT, mmol/L 9:22 AM CLOTHES DRIER REPAIRER B O2 Saturation, 52 Not applicable 12/31/2021 CNFL Venous, POCT, % 9:22 AM CLOTHES DRIER REPAIRER B Sample Type, ABEL 12/31/2021 CNFL Blood Gas, 9:22 AM CLOTHES DRIER REPAIRER POCT Specimen Anatomical Collection Method Collection Time Receive d Time (Source) Location / / Volume Laterality Blood 12/31/2021 9:22 AM 9:23 CLOTHES DRIER REPAIRER AM CLOTHES DRIER REPAIRER Generic Rals LAB POCT ORDERABLES - DEVICE Performing Organization Address City/State/[facility] Code Phon e Number [address] [address] [address] Influenza A/B, SARS CoV-2, PCR, Rapid, Varies Symptomatic (12/31/2021 9:10 AM CLOTHES DRIER REPAIRER) [facility] Method Time Signature Influenza A, Negative Negative 12/31/2021 CNFL PCR, Rapid, V 9:50 AM CLOTHES DRIER REPAIRER Influenza B, Negative Negative 12/31/2021 CNFL PCR, Rapid, V 9:50 AM CLOTHES DRIER REPAIRER SARS CoV-2, Undetected Undetected 12/31/2021 CNFL PCR, Rapid, V 9:50 AM CLOTHES DRIER REPAIRER Comment: ----ADDITIONAL INFORMATION---- This RT-PCR test was performed using the Trey SARS-CoV-2 and Influenza A/B Reagent assay from [employer], which has received Emergency Use Authori zation(EUA) by the U.S. Food and Drug Administration . Fact sheets for this Emergency Use Autho rization (EUA) assay can be found at the following link s: For Healthcare Providers: https://www.fda.gov/media/201937/downloa d For Patients: https://www.fda.gov/media/376765/downloa d Infl A/B, SARS CoV-2, PCR, Source Swab, Nasopharynx 12/31/2021 9:50 AM CLOTHES DRIER REPAIRER [facility] Specimen Anatomical Collection Method Collection Time Receive d Time (Source) Location / / Volume Laterality Swab 12/31/2021 9:10 AM 9:50 (Nasopharynx) CLOTHES DRIER REPAIRER AM CLOTHES DRIER REPAIRER Karine Goins P.A.-C. LAB MICROBIOLOGY - GENERAL O RDERABLES Performing Organization Address [facility] Phon e Number [address] [address] [place] [address] System [address] (ABNORMAL) Troponin T, Baseline, 5th gen (12/31/2021 9:10 AM CLOTHES DRIER REPAIRER) P athologist Signature Troponin T, 15 (H) <=10 ng/L 12/31/2021 [facility] Baseline, 5th 9:47 AM CLOTHES DRIER REPAIRER gen Comment: Biotin has been identified by [...] 12/31/2021 9:10 AM 01/01/20 22 9:14 Venous) CLOTHES DRIER REPAIRER AM CLOTHES DRIER REPAIRER Karine Goins P.A.-C. LAB BLOOD TROPONIN Performing Organization Address [facility] Phon e Number [address] [address] [place] [address] System [address] Blood Gas, Venous, POCT (12/31/2021 9:10 AM CLOTHES DRIER REPAIRER) Analysis Performed At Patho logist Time Signature Blood Gas, Collected DEFAULT 12/31/2021 CNFL POCT, B 9:14 AM CLOTHES DRIER REPAIRER Specimen Anatomical Collection Method Collection Time Receive d Time (Source) Location / / Volume Laterality Blood (Other, 12/31/2021 9:10 AM 01/01/20 9:14 Specify in CLOTHES DRIER REPAIRER AM CLOTHES DRIER REPAIRER Comments) Karine Goins P.A.-C. LAB POCT ORDERABLES - DEVICE Performing Organization Address City/State/ZIP Code Phon e Number [facility]- [address] [place] [phone] [place] [address] [address] (ABNORMAL) CBC with Differential, Blood (12/31/2021 9:10 AM CLOTHES DRIER REPAIRER) Patholo gist Method Time Signature Hemoglobin 15.9 (H) 11.6 - 12/31/2021 CNFL 15.0 g/dL 9:18 AM CLOTHES DRIER REPAIRER Hematocrit 50.1 (H) 35.5 - 12/31/2021 CNFL 44.9 % 9:18 AM CLOTHES DRIER REPAIRER Erythrocytes 4.90 3.92 - 12/31/2021 CNFL 5.13 9:18 AM CLOTHES DRIER REPAIRER x10(12)/L MCV 102.2 (H) 78.2 - 12/31/2021 CNFL 97.9 fL 9:18 AM CLOTHES DRIER REPAIRER RBC Distrib Width 14.0 12.2 - 12/31/2021 CNFL 16.1 % 9:18 AM CLOTHES DRIER REPAIRER Platelet Count 150 (L) 157 - 371 12/31/2021 CNFL x10(9)/L 9:18 AM CLOTHES DRIER REPAIRER Leukocytes 8.4 3.4 - 9.6 12/31/2021 CNFL x10(9)/L 9:18 AM CLOTHES DRIER REPAIRER Neutrophils 7.00 (H) 1.56 - 12/31/2021 CNFL 6.45 9:18 AM CLOTHES DRIER REPAIRER x10(9)/L Lymphocytes 0.75 (L) 0.95 - 12/31/2021 CNFL 3.07 9:18 AM CLOTHES DRIER REPAIRER x10(9)/L Monocytes 0.59 0.26 - 12/31/2021 CNFL 0.81 9:18 AM CLOTHES DRIER REPAIRER x10(9)/L Eosinophils <0.04 0.03 - 12/31/2021 CNFL 0.48 9:18 AM CLOTHES DRIER REPAIRER x10(9)/L Basophils <0.04 0.01 - 12/31/2021 CNFL 0.08 9:18 AM CLOTHES DRIER REPAIRER x10(9)/L Specimen Anatomical Collection Method Collection Time Receive d Time (Source) Location / / Volume Laterality Blood (Blood, 12/31/2021 9:10 AM 01/01/20 9:13 Venous) CLOTHES DRIER REPAIRER AM CLOTHES DRIER REPAIRER Karine Goins P.A.-C. LAB BLOOD ADD-ON Performing Organization Address City/State/ZIP Code Phon e Number [facility]- [address] [place] [phone] [place] [address] [place] [address] [address] (ABNORMAL) Basic Metabolic Panel (12/31/2021 9:10 AM CLOTHES DRIER REPAIRER) P athologist Signature Potassium, P 4.6 3.6 - 5.2 12/31/2021 CNFL mmol/L 9:47 AM CLOTHES DRIER REPAIRER Sodium, P 137 135 - 145 12/31/2021 CNFL mmol/L 9:47 AM CLOTHES DRIER REPAIRER Chloride, P 97 (L) 98 - 107 12/31/2021 CNFL mmol/L 9:47 AM CLOTHES DRIER REPAIRER Bicarbonate, P 29 22 - 29 12/31/2021 CNFL mmol/L 9:47 AM CLOTHES DRIER REPAIRER Anion Gap, P 11 7 - 15 12/31/2021 CNFL 9:47 AM CLOTHES DRIER REPAIRER BUN (Blood Urea 19 6 - 21 12/31/2021 CNFL Nitrogen), P mg/dL 9:47 AM CLOTHES DRIER REPAIRER Creatinine 0.78 0.59 - 12/31/2021 CNFL 1.04 mg/dL 9:47 AM CLOTHES DRIER REPAIRER Estimated GFR >90 >=60 12/31/2021 CNFL (eGFR) mL/min/BSA 9:47 AM CLOTHES DRIER REPAIRER Comment: Estimated GFR calculated using the 2020 CKD_EPI creatinine equation. Calcium, Total, P 8.5 (L) 8.6 - 10.0 mg/dL 12/31/2021 9:47 AM CLOTHES DRIER REPAIRER CNFL Glucose, P 118 70 - 140 mg/dL 12/31/2021 9:47 AM CLOTHES DRIER REPAIRER C NFL Specimen Anatomical Collection Method Collection Time Receive d Time (Source) Location / / Volume Laterality Blood (Blood, 12/31/2021 9:10 AM 01/01/20 9:13 Venous) CLOTHES DRIER REPAIRER AM CLOTHES DRIER REPAIRER Karine Goins P.A.-C. LAB BLOOD ADD-ON Performing Organization Address City/State/ZIP Code Phon e Number [facility]- [address] [place] [address] [place] [address] [place] [address] System in [place] [address] Bl ECG 12 Lead (12/31/2021 8:45 AM CLOTHES DRIER REPAIRER) P athologist Signature Ventricular Rate 100 BPM MUSE ECG/Min NC Interval 114 ms MUSE QRSD Interval 104 ms MUSE QT Interval 402 ms MUSE QTC Interval 518 ms MUSE P [place] 66 degrees MUSE R [place] 111 degrees MUSE T Wave [place] -55 degrees MUSE Specimen Anatomical Collection Method Collection Time Receive d Time (Source) Location / / Volume Laterality 12/31/2021 8:45 AM 8:52 CLOTHES DRIER REPAIRER AM CLOTHES DRIER REPAIRER Impressions MUSE - 12/31/2021 8:52 AM CLOTHES DRIER REPAIRER Poor data quality Normal sinus rhythm with short NC Right axis deviation Incomplete right bundle branch [...] data quality Normal sinus rhythm with short NC Right axis deviation Incomplete right bundle branch [...] Phone Address Type / Group [employer] [facility] [id number] 2021-Presen [phone] [address] Medicaid HMO t [address] [place] [address] Advance Directives For more information, please contact: [phone] Latest Code Status on File Code Status Date Activated Date Inactivated Comments Full Code 10/23/2019 4:09 AM 10/27/2019 3:11 PM Question Answer Comments Full Code: Not Discussed Due to: Patient not available Care Teams [employer] Product Consultant Relationship Specialty Start Date End Date Ro Norton APRN, C.N.P., PCP - General Family Medicine D.N.P. [id number] [phone]
--- OUTSIDE RECORDS SUMMARY | 2022-01-17 13:07 | XMS_ITS | Encounter Summary ---
:1970 Author Organization [facility] Address [address] [place] [address] Care Team Providers Name Role Phone Ro Norton APRN C.N.Kirsty, D.N.P. 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 Chronic Obstructive Pulmonary Disease Ex acerbation (HCC); [address] [place] [address] [address] [facility] Edema Pulmonary ([facility]); [place], [place] Other [facility] Pulmonary Hypertension (HCC); [id number] Thrombocytopenia (HCC) [phone] Social History Tobacco Use Types Packs/Day Years [...] do you attend zoroastrianism or Never 2021 mormonism services? Do you [...] Comments Blood Pressure 108/77 12/31/2021 12:15 PM MILKING SYSTEM INSTALLER Pulse 82 12/31/2021 12:32 PM MILKING SYSTEM INSTALLER Temperature 36.6 ??C (97.9 ??F) 12/31/2021 8:31 AM MILKING SYSTEM INSTALLER Respiratory Rate 20 12/31/2021 12:32 PM MILKING SYSTEM INSTALLER Oxygen Saturation 89% 12/31/2021 12:32 PM MILKING SYSTEM INSTALLER Inhaled Oxygen Concentration - - Weight - [...] specialty: no Karine Goins P.A.-C. 12/31/21 1529 ING SYSTEM INSTALLER documented in this encounter ED Notes Annie [...] negative results. Annie Pugh R.N. 12/31/21 0836 ING SYSTEM INSTALLER Karine Goins P.A.-C. - 12/31/2021 8:29 AM [...] was allowed to. She last saw her Machine Oiler a year ago. She lost her neb [...] 8. Agitated saline contrast administered. 9. No [id number] shunt at atrial level at rest or [...] and close follow up with PCP and Machine Oiler. Danger signs were dicussed for return to [...] gen CANCELED Narrative: Specimen Information: Specimen ID: [id number] Specimen Type: Blood Specimen Collection Start Date: 12/31/2021 11:31 AM Specimen Received Date: 12/31/2021 11:33 AM Specimen ID: [id number] Specimen Type: Blood VBG (VENOUS BLOOD GAS), [...] data quality Normal sinus rhythm with short AK Right axis deviation Incomplete right bundle branch block Right ventricular hypertrophy Cannot rule out Anteroseptal infarct ST and T wave abnormality, consider inferior ischemia ST and T wave abnormality, consider anterolateral ischemia Prolonged QT When compared with ECG of 19-AUG-2020 12:42, Significant changes have occurred Reviewed by PRAKASH Savage Angela L PRaffyA.-CRaffy 12/31/21 1229 ING SYSTEM INSTALLER documented in this encounter Plan of Treatment Upcoming Encounters Date Type Specialty Care Team Description 01/21/2022 Appointment Radiology Ro Norton, MORGAN, C.N.P., D.N.P. [address] [phone] (Amanda rk) 01/27/2022 Clinical Support Integrative Medicine Haris, Iv y [address] [place], [place] [phone] (Wo rk) documented as of this encounter Procedures Procedure Name Priority Date/Time Associated Comments Diagnosis CRITICAL CARE Routine 12/31/2021 1:25 Results for this PM MILKING SYSTEM INSTALLER procedure are i n the results section. TROPONIN T, 2H/6H, Timed 12/31/2021 11:31 Resul ts for this 5TH GEN, P AM MILKING SYSTEM INSTALLER procedure are i n the results section. DX CHEST AP OR PA RAD - Semiurgent 12/31/2021 9:23 Res ults for this AND LATERAL 2 VIEWS (Fast; most ED AM MILKING SYSTEM INSTALLER proced ure are in patients; some the results inpatients) section. HC BLD GASES ANY Routine 12/31/2021 9:22 Results for this COMBINATION AM MILKING SYSTEM INSTALLER procedure are i n the results section. IFLU A, B, SARS STAT 12/31/2021 9:10 Results f or this COV-2, PCR, RAPID,V AM MILKING SYSTEM INSTALLER procedur e are in the results section. TROPONIN T, STAT 12/31/2021 9:10 Results for this BASELINE, 5TH GEN, AM MILKING SYSTEM INSTALLER procedure are in P the results section. BLOOD GAS, POCT, B STAT 12/31/2021 9:10 Result s for this AM MILKING SYSTEM INSTALLER procedure are i n the results section. CBC WITH STAT 12/31/2021 9:10 Results for this DIFFERENTIAL, B AM MILKING SYSTEM INSTALLER procedure ar e in the results section. BASIC METABOLIC STAT 12/31/2021 9:10 Results f or this PANEL, S/P AM MILKING SYSTEM INSTALLER procedure are i n the results section. ECG STAT 12/31/2021 8:45 Results for this AM MILKING SYSTEM INSTALLER procedure are i n the results section. documented in this encounter Results Critical Care (12/31/2021 1:25 PM MILKING SYSTEM INSTALLER) Narrative Karine Goins P.A.-C. - 12/31/2021 1:25 PM MILKING SYSTEM INSTALLER Karine Goins P.A.-C. ? 12/31/2021 ??3:29 PM [...] T, 2H/6H, 5th Gen (12/31/2021 11:31 AM MILKING SYSTEM INSTALLER) P athologist Signature Troponin T, 2 12 (H) <=10 ng/L 12/31/2021 CNFL hr, 5th gen 12:01 PM MILKING SYSTEM INSTALLER Comment: Biotin has been identified by the edna levy as a potential interfering substance. Higher concentrations of biotin may be found in multivitamins, mcgregor ir/nail supplements, and workout supplements. If the result d oes not match clinical observations, repeat testing af ter patient refrains from the use of supplements for at least 12 hours. 2H Delta -3 ng/L 12/31/2021 12:01 PM MILKING SYSTEM INSTALLER CNFL 2H Delta Interp Not Changing 12/31/2021 12:[address] CNFL Troponin T, 6 hr, 5th gen CANCELED ng/L 12/31/2021 12: 01 PM MILKING SYSTEM INSTALLER CNFL Comment: Result canceled by the esha mejia Specimen Anatomical Collection Method Collection Time Receive d Time (Source) Location / / Volume Laterality Blood (Blood, 12/31/2021 11:31 12/31/2021 Venous) AM MILKING SYSTEM INSTALLER 11:33 AM MILKING SYSTEM INSTALLER Narrative [facility] - 12/31/2021 12:01 PM MILKING SYSTEM INSTALLER Specimen Information: Specimen ID: [id number] Specimen Type: Blood Specimen Collection Start Date: 022 11:31 AM Specimen Received Date: 12/31/2021 11:3 3 AM Specimen ID: [id number] Specimen Type: Blood Karine Goins P.A.-C. LAB BLOOD TROPONIN Performing Organization Address City/State/ZIP Code Phon e Number [place] [address] [place] [address] [place] [address] System in [place] [address] DX Chest AP or PA and Lateral 2 Views (12/31/2021 9:23 AM MILKING SYSTEM INSTALLER) Anatomical Region Laterality Modality Chest, Thoracic RST LOS, Thoracic ARZ LOS, Thoracic N/A Digital Radiography FLA LOS Specimen (Source) Anatomical Collection Method Collection Time Re ceived Time Location / / Volume Laterality 12/31/2021 9:26 AM MILKING SYSTEM INSTALLER Impressions 12/31/2021 9:32 AM MILKING SYSTEM INSTALLER Unchanged enlargement of the cardiac silhouette and central pulmonary arteries. Intact median sternotomy wires. Mild increased interstitial pulmonary markings which could be seen with acute interstitial pulmonary edema. No l arge pleural effusion. Mild chronic degenerative changes in the spine. Comparison, 06/19/2020. Narrative 12/31/2021 9:32 AM MILKING SYSTEM INSTALLER EXAM: DX CHEST AP OR PA AND [...] (Venous Blood Gas), POCT (12/31/2021 9:22 AM MILKING SYSTEM INSTALLER) [facility] Method Time Signature pH, Venous, 7.41 7.32 - 7.43 12/31/2021 CNFL POCT, B 9:22 AM MILKING SYSTEM INSTALLER pCO2, Venous, 58 (H) 41 - 51 mm Hg 12/31/2021 CNFL POCT, B 9:22 AM MILKING SYSTEM INSTALLER pO2, Venous, 28 Not applicable 12/31/2021 CNFL POCT, B mm Hg 9:22 AM MILKING SYSTEM INSTALLER HCO3, Venous, 37 Not applicable 12/31/2021 CNFL POCT, B mmol/L 9:22 AM MILKING SYSTEM INSTALLER Base Excess, 12 Not applicable 12/31/2021 CNFL Venous, POCT, mmol/L 9:22 AM MILKING SYSTEM INSTALLER B O2 Saturation, 52 Not applicable 12/31/2021 CNFL Venous, POCT, % 9:22 AM MILKING SYSTEM INSTALLER B Sample Type, ABEL 12/31/2021 CNFL Blood Gas, 9:22 AM MILKING SYSTEM INSTALLER POCT Specimen Anatomical Collection Method Collection Time Receive d Time (Source) Location / / Volume Laterality Blood 12/31/2021 9:22 AM 9:23 MILKING SYSTEM INSTALLER AM MILKING SYSTEM INSTALLER Generic [facility] LAB POCT ORDERABLES - DEVICE Performing Organization Address City/State/ZIP Code Phon e Number [address] [address] [place] [address] Influenza A/B, SARS CoV-2, PCR, Rapid, Varies Symptomatic (12/31/2021 9:10 AM MILKING SYSTEM INSTALLER) [facility] Method Time Signature Influenza A, Negative Negative 12/31/2021 CNFL PCR, Rapid, V 9:50 AM MILKING SYSTEM INSTALLER Influenza B, Negative Negative 12/31/2021 CNFL PCR, Rapid, V 9:50 AM MILKING SYSTEM INSTALLER SARS CoV-2, Undetected Undetected 12/31/2021 CNFL PCR, Rapid, V 9:50 AM MILKING SYSTEM INSTALLER Comment: ----ADDITIONAL INFORMATION---- This RT-PCR test was performed using the Trey SARS-CoV-2 and Influenza A/B Reagent assay from [employer], which has received Emergency Use Authori zation(EUA) by the U.S. Food and Drug Administration . Fact sheets for this Emergency Use Autho rization (EUA) assay can be found at the following link s: For Healthcare Providers: https://www.fda.gov/media/998990/downloa d For Patients: https://www.fda.gov/media/512174/downloa d Infl A/B, SARS CoV-2, PCR, Source Swab, Nasopharynx 12/31/2021 9:50 AM MILKING SYSTEM INSTALLER CNFL Specimen Anatomical Collection Method Collection Time Receive d Time (Source) Location / / Volume Laterality Swab 12/31/2021 9:10 AM 9:50 (Nasopharynx) MILKING SYSTEM INSTALLER AM MILKING SYSTEM INSTALLER Karine Goins P.A.-C. LAB MICROBIOLOGY - GENERAL O RDERABLES Performing Organization Address [facility] Code Phon e Number [address] [address] [place] [address] (ABNORMAL) Troponin T, Baseline, 5th gen (12/31/2021 9:10 AM MILKING SYSTEM INSTALLER) athologist Signature Troponin T, 15 (H) <=10 ng/L 12/31/2021 CNFL Baseline, 5th 9:47 AM MILKING SYSTEM INSTALLER gen Comment: Biotin has been identified by [...] (Blood, 12/31/2021 9:10 AM 01/01/20 9:14 Venous) MILKING SYSTEM INSTALLER AM MILKING SYSTEM INSTALLER Karine Goins P.A.-C. LAB BLOOD TROPONIN Performing Organization Address [facility] Code Phon e Number [address] [address] [place] [address] System [address] (ABNORMAL) Basic Metabolic Panel (12/31/2021 9:10 AM MILKING SYSTEM INSTALLER) athologist Signature Potassium, P 4.6 3.6 - 5.2 12/31/2021 CNFL mmol/L 9:47 AM MILKING SYSTEM INSTALLER Sodium, P 137 135 - 145 12/31/2021 CNFL mmol/L 9:47 AM MILKING SYSTEM INSTALLER Chloride, P 97 (L) 98 - 107 12/31/2021 CNFL mmol/L 9:47 AM MILKING SYSTEM INSTALLER Bicarbonate, P 29 22 - 29 12/31/2021 CNFL mmol/L 9:47 AM MILKING SYSTEM INSTALLER Anion Gap, P 11 7 - 15 12/31/2021 CNFL 9:47 AM MILKING SYSTEM INSTALLER BUN (Blood Urea 19 6 - 21 12/31/2021 CNFL Nitrogen), P mg/dL 9:47 AM MILKING SYSTEM INSTALLER Creatinine 0.78 0.59 - 12/31/2021 CNFL 1.04 mg/dL 9:47 AM MILKING SYSTEM INSTALLER Estimated GFR >90 >=60 12/31/2021 CNFL (eGFR) mL/min/BSA 9:47 AM MILKING SYSTEM INSTALLER Comment: Estimated GFR calculated using the 2020 CKD_EPI creatinine equation. Calcium, Total, P 8.5 (L) 8.6 - 10.0 mg/dL 12/31/2021 9:47 AM MILKING SYSTEM INSTALLER CNFL Glucose, P 118 70 - 140 mg/dL 12/31/2021 9:47 AM MILKING SYSTEM INSTALLER C NFL Specimen Anatomical Collection Method Collection Time Receive d Time (Source) Location / / Volume Laterality Blood (Blood, 12/31/2021 9:10 AM 01/01/20 9:13 Venous) MILKING SYSTEM INSTALLER AM MILKING SYSTEM INSTALLER Karine Goins P.A.-C. LAB BLOOD ADD-ON Performing Organization Address City/State/ZIP Code Phon e Number [facility]- [address] [place] [id number] [place] [address] [place] [address] [address] (ABNORMAL) CBC with Differential, Blood (12/31/2021 9:10 AM MILKING SYSTEM INSTALLER) [facility] gist Method Time Signature Hemoglobin 15.9 (H) 11.6 - 12/31/2021 CNFL 15.0 g/dL 9:18 AM MILKING SYSTEM INSTALLER Hematocrit 50.1 (H) 35.5 - 12/31/2021 CNFL 44.9 % 9:18 AM MILKING SYSTEM INSTALLER Erythrocytes 4.90 3.92 - 12/31/2021 CNFL 5.13 9:18 AM MILKING SYSTEM INSTALLER x10(12)/L MCV 102.2 (H) 78.2 - 12/31/2021 CNFL 97.9 fL 9:18 AM MILKING SYSTEM INSTALLER RBC Distrib Width 14.0 12.2 - 12/31/2021 CNFL 16.1 % 9:18 AM MILKING SYSTEM INSTALLER Platelet Count 150 (L) 157 - 371 12/31/2021 CNFL x10(9)/L 9:18 AM MILKING SYSTEM INSTALLER Leukocytes 8.4 3.4 - 9.6 12/31/2021 CNFL x10(9)/L 9:18 AM MILKING SYSTEM INSTALLER Neutrophils 7.00 (H) 1.56 - 12/31/2021 CNFL 6.45 9:18 AM MILKING SYSTEM INSTALLER x10(9)/L Lymphocytes 0.75 (L) 0.95 - 12/31/2021 CNFL 3.07 9:18 AM MILKING SYSTEM INSTALLER x10(9)/L Monocytes 0.59 0.26 - 12/31/2021 CNFL 0.81 9:18 AM MILKING SYSTEM INSTALLER x10(9)/L Eosinophils <0.04 0.03 - 12/31/2021 CNFL 0.48 9:18 AM MILKING SYSTEM INSTALLER x10(9)/L Basophils <0.04 0.01 - 12/31/2021 CNFL 0.08 9:18 AM MILKING SYSTEM INSTALLER x10(9)/L Specimen Anatomical Collection Method Collection Time Receive d Time (Source) Location / / Volume Laterality Blood (Blood, 12/31/2021 9:10 AM 01/01/20 22 9:13 Venous) MILKING SYSTEM INSTALLER AM MILKING SYSTEM INSTALLER Karine Goins P.A.-C. LAB BLOOD ADD-ON Performing Organization Address City/[facility]/ZIP Code Phon e Number [address] [address] [place] [address] System [address] Blood Gas, Venous, POCT (12/31/2021 9:10 AM MILKING SYSTEM INSTALLER) Analysis Performed At Patho logist Time Signature Blood Gas, Collected DEFAULT 12/31/2021 CNFL POCT, B 9:14 AM MILKING SYSTEM INSTALLER Specimen Anatomical Collection Method Collection Time Receive d Time (Source) Location / / Volume Laterality Blood (Other, 12/31/2021 9:10 AM 01/01/20 22 9:14 Specify in MILKING SYSTEM INSTALLER AM MILKING SYSTEM INSTALLER Comments) Karine Goins P.A.-C. LAB POCT ORDERABLES - DEVICE Performing Organization Address [facility] Phon e Number [address] [address] [place] [address] ECG 12 Lead (12/31/2021 8:45 AM MILKING SYSTEM INSTALLER) P athologist Signature Ventricular Rate 100 BPM MUSE ECG/Min AK Interval 114 ms MUSE QRSD Interval 104 ms MUSE QT Interval 402 ms MUSE QTC Interval 518 ms MUSE P [place] 66 degrees MUSE R [place] 111 degrees MUSE T Wave [place] -55 degrees MUSE Specimen Anatomical Collection Method Collection Time Receive d Time (Source) Location / / Volume Laterality 12/31/2021 8:45 AM 8:52 MILKING SYSTEM INSTALLER AM MILKING SYSTEM INSTALLER Impressions MUSE - 12/31/2021 8:52 AM MILKING SYSTEM INSTALLER Poor data quality Normal sinus rhythm with short AK Right axis deviation Incomplete right bundle branch [...] data quality Normal sinus rhythm with short AK Right axis deviation Incomplete right bundle branch [...] 20 mg (LASIX) Given 12/31/2021 10:01 AM MILKING SYSTEM INSTALLER 20 mg 20 mg, intravenous, Once, On Mon12/31/21 at 0945, For 1 dose, Adults: Doses less than 120 mg: IV push over 20 mg/minute. Doses 120 mg or greater: IVPB at 4 mg/minute. Peds/Neonates: Doses less than 120 mg over 0.5 mg/kg/minute. Doses 120 mg or greater: IVPB at 4 mg/minute. ipratropium-albuteroL 0.5-2.5 mg/3 mL nebulizer Given 12/31/2021 8:55 AM MILKING SYSTEM INSTALLER 3 mL solution 3 mL (DUONEB) 3 mL, nebulization, Once, On Mon12/31/21 at 0835, For 1 dose ipratropium-albuteroL 0.5-2.5 mg/3 mL Given 12/31/2021 10:00 AM MILKING SYSTEM INSTALLER 3 mL nebulizer solution 3 mL (DUONEB) [...] Recently Administered Medications Times are shown in MILKING SYSTEM INSTALLER. Scheduled Medication Order 12/29/2021 12/30/2021 12/31/2021 furosemide [...] COVID19 Pending 12/31/2021 12/31/2021 12/31/2021 9:51 AM MILKING SYSTEM INSTALLER documented as of this encounter Care Teams Buffing Machine Tender Relationship Specialty Start Date End Date Ro Norton APRN, C.N.P., PCP - General Family Medicine D.N.P. [address] [phone] documented as of this encounter
--- OUTSIDE RECORDS SUMMARY | 2022-01-17 13:07 | XMS_ITS | Encounter Summary ---
:1970 Author Organization [facility] Address [address] [place] [address] Care Team Providers Name Role Phone Ro [...] Emergency Medicine Diagnoses Swelling Face Darryl Blackman, [facility] MORGAN, C.N.P. [address] [place] [address] Referral ID Status Reason Start Date Expiration Date Visits Requ ested Visits Authorized [id number] Closed 06/26/2021 06/26/2022 1 1 Encounter Details Date Type Department Care Team Description 07/23/2021 Office Visit Department of [facility] Ro Norton, Christianson Estrogen Post Menopausal (Primary Dx); Medicine, Law MORA, C.N.P., Swelling F tramaine; [facility], in D.N.P. Screening Examination Diabetes Mellitus; [place] [address] Discharge V aginal; [facility] Screening For Venereal Disease; [address] [place] [address] Pap Smear Examination; [place] [address] Chronic Obstructive Pulmonary Disease Wi thout Exacerbation ([facility]); [id number] Tobacco Use; Other Secondary Pulmonary Hypertension ( HCC); [phone] Hepatitis C (Fax) Social History Tobacco Use [...] do you attend yazdanism or Never 2021 scientology services? Do you [...] been staying between her children's homes couch [employer]. She reports however that her daughter recently [...] Appointment Radiology Ro Norton APRN, C.N.P., D.N.P. [address] [phone] (Amanda goldman) 01/27/2022 Clinical Support Integrative Medicine Haris, Iv y [address] [place] [phone] (Amanda goldman) documented as of [...] ADD-ON Performing Organization Address City/[facility] Phon e Number [place] [address] [place] [address] [place] [address] HIV-1/-2 Ag and Ab Screen, Plasma [...] Address City/State/ZIP Code Phon e Number [address] [phone] [facility] [place] [address] (ABNORMAL) HBc Total Ab, Serum (07/23/2021 [...] MICROBIOLOGY - BLOOD ORDERABLES Performing Organization Address [facility] Phon e Number [address] [phone] [facility] [place] [address] System in [address] HBs Antibody, Serum (07/23/2021 8:56 AM [...] MICROBIOLOGY - BLOOD ORDERABLES Performing Organization Address [facility] Phon e Number [address] [place], [place] [address] [facility] [place] [address] (ABNORMAL) HCV Ab w/Reflex to HCV [...] 07/24/19 9:04 Venous) CDT PM CDT Narrative [facility] - 07/24/2021 1:50 AM CDT Specimen Information: Specimen ID: [id number] Specimen Type: Blood Specimen Collection Start Date: 2 ??8:56 AM Specimen Received Date: 07/23/2021 ??9:04 PM Specimen ID: [id number] Specimen Type: Blood Specimen Collection Start Date: 2 ??8:56 AM Specimen Received Date: 07/23/2021 ??9:05 PM Ro Norton APRN, C.N.P., D.N.P. LAB MICROBIOLOGY - BLOOD ORDERABLES Performing Organization Address City/State/ZIP Code Phon e Number [address] [phone] [facility] [place] [address] [address] Hepatitis A IgM Ab, Serum (07/23/2021 [...] MICROBIOLOGY - BLOOD ORDERABLES Performing Organization Address [facility] Phon e Number [address] [place] [address] [place] [address] System [address] Hepatitis B Core IgM Ab (07/23/2021 8:56 AM CDT) [facility] Method Time Signature HBc IgM Ab, S [...] MICROBIOLOGY - BLOOD ORDERABLES Performing Organization Address [facility] Phon e Number [phone] [facility] [place] [address] System in [address] HBs Antigen Scrn, S (07/23/2021 8:56 AM CDT) [facility] [employer] Method Time Signature HBs Antigen Nonreactive Nonreactive 07/24/2021 ECLR Scrn, S 1:49 AM CDT Specimen Anatomical Collection Method Collection Time Receive d Time (Source) Location / / Volume Laterality Blood (Blood, 07/23/2021 8:56 AM 07/24/19 22 9:04 Venous) CDT PM CDT Ro Norton APRN, C.N.P., D.N.P. LAB MICROBIOLOGY - BLOOD ORDERABLES Performing Organization Address City/State/ZIP Code Phon e Number [facility]- [address] [place] [phone] [facility] [place] [address] (ABNORMAL) CBC without Differential (07/23/2021 8:56 AM CDT) [facility] [employer] Method Time Signature Hemoglobin 17.7 (H) 11.6 [...] Organization Address City/State/ZIP Code Phon e Number [facility]- [address] [place] [address] [place] [address] (ABNORMAL) Comprehensive Metabolic Panel (07/23/2021 8:56 [...] CDT eGFR-Black/Afric >90 >=60 07/23/2021 CNFL an [place] mL/min/BSA 9:34 AM CDT Comment: ----ADDITIONAL INFORMATION---- [...] ADD-ON Performing Organization Address City/[facility] Phon e Number [address] [address] [place] [address] HPV with Genotyping, PCR, ThinPrep (07/23/2021 [...] ORDERABLES Performing Organization Address City/[facility]/ZIP Code Phon e Number [facility]- [address] [place] [phone] [place] [address] [place] [address] ThinPrep w/HPV Co-Test Screen (07/23/2021 8:24 [...] ECLR lidya 1:02 PM CDT Clinical History \[id number]\ 07/29/2021 ECLR 1:02 PM CDT Interpretation Cervical/Endocervical [...] Organization Address City/State/ZIP Code Phon e Number [facility]- [address] [place] [phone] [facility] [place] [address] Chlamydia / Gonorrhoeae Amplified RNA (07/23/2021 [...] MICROBIOLOGY - GENERAL ORDERABLES Performing Organization Address [facility] Phon e Number [address] [phone] [facility] [place] [address] (ABNORMAL) Vaginitis Panel (07/23/2021 8:24 AM [...] ORDERABLES Performing Organization Address City/[facility] Phon e Number [address] [address] [place] [address] documented in this encounter Visit Diagnoses Diagnosis Deficiency Estrogen Post Menopausal - Pr imary Swelling Face Screening Examination Diabetes Mellitus Discharge Vaginal Screening For Venereal Disease Pap Smear Examination Chronic Obstructive Pulmonary Disease Wi thout Exacerbation (HCC) Tobacco Use Other Secondary Pulmonary Hypertension ( HCC) Hepatitis C documented in this encounter Care Teams Organ Teacher Relationship Specialty Start Date End Date Ro Norton APRN, C.N.P., PCP - General Family Medicine D.N.P. [address] [phone] documented as of this encounter
--- OUTSIDE RECORDS SUMMARY | 2022-01-17 13:07 | XMS_ITS | Encounter Summary ---
:1970 Author Organization [facility] Address [address] [place] [address] Care Team Providers Name Role Phone Ro Norton APRN, C.N.P., D.N.P. Primary Care Provider Reason for Visit Reason Comments Form Review Inder Verbal Order Encounter Details Date Type Department Care Team Description 11/25/2021 Clinical Communication Department of Ro Norton rm Review Family MedicineElan APRN, (Inder Coello rbal [place] C.N.P., D.N.P. Order) Clinic, in [address] [address] [place], [place] [phone] (Work) [phone] Social History Tobacco Use Types Packs/Day Years [...] or relatives? How often do you attend protestant or Never 2021 taoist services? Do you belong to any clubs or No 02/25/2021 organizations such as protestant groups, unions, fraternal or athletic groups, or [...] emailed to LARRY Norton for electronic review/signature. APPLICATIONS PACKAGER: Inder PHONE NUMBER: [phone] INFO REQUESTED: portable oxygen INSTRUCTIONS: Fax information to [phone] documented in this encounter Plan of Treatment Upcoming Encounters Date Type Specialty Care Team Description 01/21/2022 Appointment Radiology Ro Norton APRN, C.N.P., D.N.P. [address] [address] [place] [phone] (Wo rk) 01/27/2022 Clinical Support Integrative Medicine Haris, Iv y [address] [place], [place] [phone] (Wo rk) documented as of this encounter Visit Diagnoses Not on filedocumented in this encounter Care Teams Certified Energy Manager Relationship Specialty Start Date End Date Ro Norton APRN, C.N.P., PCP - General Family Medicine D.N.P. [address] [phone] documented as of this encounter
--- OUTSIDE RECORDS SUMMARY | 2022-01-17 13:07 | XMS_ITS | Encounter Summary ---
:1970 Author Organization [facility] Address [address] [place] [address] Care Team Providers Name Role Phone Ro Norton APRN C.N.P., D.N.P. Primary Care Provider Encounter Details Date Type Department Care Team Description 07/29/2021 Orders Only Department of [facility] Ro Norton AP RN, Medicine, [place] C.N.P., D .N.P. [facility], [address] [phone] Social History Tobacco Use Types Packs/Day Years [...] do you attend nondenominational or Never 2021 orthodoxy services? Do you belong to any clubs [...] Appointment Radiology Ro Norton APRN, C.N.P., D.N.P. [address] [phone] (Amanda goldman) 01/27/2022 Clinical Support Integrative Medicine Haris, Iv y [address] [place], [place] [phone] (Amanda goldman) documented as of this encounter Visit Diagnoses Not on filedocumented in this encounter Care Teams Forensic Toxicologist Relationship Specialty Start Date End Date Ro Norton APRN, C.N.P., PCP - General Family Medicine D.N.P. [address] [phone] documented as of this encounter
--- OUTSIDE RECORDS SUMMARY | 2022-01-17 13:07 | XMS_ITS | Encounter Summary ---
:1970 Author Organization [facility] Address [address] [place] [address] Care Team Providers Name Role Phone Ro Norton APRN, C.N.Kirsty, D.N.P. Primary Care Provider Reason for Referral Outpatient (Routine) - Authorized Specialty Diagnoses / Referred By Referred To Cont act Procedures Contact Gastroenterology and Diagnoses Hepatitis [facility] [place] MORA.N.Kirsty, D.N.P. [address] [place] [phone] Referral ID Status Reason Start Date Expiration Date Visits V isits Requested Authorized [id number] Authorized 09/14/2021 09/14/2022 1 1 Encounter Details Date Type Department Care Team Description 09/13/2021 Clinical Communication Department of Ro Holguin, Medicine, Corinne MORGAN C.N.PRaffy, Clinic, in [place] [address] [phone] Social History Tobacco Use Types Packs/Day [...] do you attend buddhism or Never 2021 mu-ism services? Do you [...] CDT ORDER/LAB/REFERRAL REQUEST: Name of test/referral/order requested: [id number] Reason for request: Ro placed an order, for Allison to be seen by Infectious Diseases, regarding Hepatitis, however that order should go to Gastroenterology. Please place a new order for this, as listed above, for [place]. Please contact Allison to schedule. Date needed: as soon as possible. Routing: -Order and Lab requests go to [facility] PCP PANEL MANAGERS -Referral Requests go to PCPs DIRECTOR LEARNING SERVICES pool Please pend orders prior to routing to PCP/Provider DOS/PASS are encouraged to pend orders prior to forwarding message documented in this encounter Plan of Treatment Upcoming Encounters Date Type Specialty Care Team Description 01/21/2022 Appointment Radiology Ro Norton APRN, C.NDean, D.N.P. [address] [phone] (Amanda goldman) 01/27/2022 Clinical Support Integrative Medicine Haris, Iv y [address] [place], [place] [phone] (Amanda goldman) Scheduled Referrals Name Type Priority Associated Order Schedule Diagnoses Gastroenterology and Outpatient Routine Hepatitis C Expecte d: Hepatology - Hepatology Referral 08/21 consult (clinic) (Approximat e), Expires: 12/15/2022 documented as of this encounter Visit Diagnoses Diagnosis Hepatitis C - Primary documented in this encounter Care Teams Director Of Sales Support Relationship Specialty Start Date End Date Ro Norton APRN C.N.P., PCP - General Family Medicine D.N.P. [address] [phone] documented as of this encounter
--- OUTSIDE RECORDS SUMMARY | 2022-01-17 13:07 | XMS_ITS | Encounter Summary ---
:1970 Author Organization [facility] Address [address] [place] [address] Care Team Providers Name Role Phone Ro Norton APRN, C.N.P., D.N.P. Primary Care Provider Encounter Details Date Type Department Care Team Description 09/22/2021 Orders Only Pharmacy Prior Auth [place] Paulette Barrera [phone] Social History Tobacco Use Types Packs/Day Years [...] do you attend protestant or Never 2021 roman catholic services? Do [...] Appointment Radiology Ro Norton APRN, C.N.P., D.N.P. [address] [phone] (Wo rk) 01/27/2022 Clinical Support Integrative Medicine Haris, Iv y [address] [place], [place] [phone] (Wo rk) documented as of this encounter Visit Diagnoses Not on filedocumented in this encounter Care Teams Checkering Machine Adjuster Relationship Specialty Start Date End Date Ro Norton APRN, C.N.P., PCP - General Family Medicine D.N.P. [address] [phone] documented as of this encounter
--- OUTSIDE RECORDS SUMMARY | 2022-01-17 13:07 | XMS_ITS | Encounter Summary ---
:1970 Author Organization [facility] Address [address] [place] [address] Care Team Providers Name Role Phone Ro Norton APRN, C.NDean, MileN.PRaffy Primary Care Provider Encounter Details Date Type Department Care Team Description 07/23/2021 Hospital Encounter Department of Ro Norton Scr eening Lipid Laboratory Medicine in [place] MORANDean, Mile TownsendNRaffyP. [address] [phone] Social History Tobacco Use Types Packs/Day Years [...] do you attend anabaptism or Never 2021 yazidi services? Do you [...] Appointment Radiology Ro Norton APRN, C.N.P., D.N.P. [address] [phone] (Wo rk) 01/27/2022 Clinical Support Integrative Medicine Haris, Sohan y 701 [facility], [place] [phone] (Amanda rk) documented as of [...] Organization Address City/State/ZIP Code Phon e Number [facility]- [address] [place] [address] [place] [address] System in [address] documented in this encounter Visit Diagnoses Diagnosis Screening Lipid documented in this encounter Care Teams Community Worker Relationship Specialty Start Date End Date Ro Norton APRN, C.N.P., PCP - General Family Medicine D.N.P. [address] [place] [phone] documented as of this encounter
--- OUTSIDE RECORDS SUMMARY | 2022-01-17 13:07 | XMS_ITS | Encounter Summary ---
:1970 Author Organization [facility] Address [address] [place] [address] Care Team Providers Name Role Phone Ro Norton APRN, C.N.Kirsty, D.N.P. Primary Care Provider Encounter Details Date Type Department Care Team Description 10/20/2021 E-Visit [facility] Express [facility] Anika Lyn Express Care Online for at the [facility] on MORGAN C. N.P. Athlete's Foot the 4th Floor [address] [place] [address] [address] [place] [address] [phone] Social History Tobacco Use Types Packs/Day Years [...] do you attend mosque or Never 2021 temple services? Do you [...] Appointment Radiology Ro Norton APRN, C.N.P., D.N.P. [address] [place] [phone] (Amanda goldman) 01/27/2022 Clinical Support Integrative Medicine Haris, Iv y [address] [place], [place] [phone] (Wo rk) documented as of this encounter Visit Diagnoses Diagnosis Onychomycosis - Primary documented in this encounter Care Teams Conduit Mechanic Relationship Specialty Start Date End Date Ro Norton APRN, C.N.P., PCP - General Family Medicine D.N.P. [address] [place] [phone] documented as of this encounter
--- OUTSIDE RECORDS SUMMARY | 2022-01-17 13:07 | XMS_ITS | Encounter Summary ---
:1970 Author Organization [facility] Address [address] [place] [address] Care Team Providers Name Role Phone Ro Norton APRN C.N.PRaffy, D.N.P. Primary Care Provider Reason for Referral Outpatient (Routine) - Authorized Specialty Diagnoses / Procedures Referred By Contact Refer red To Contact Diagnoses Screening Mammogram Breast Cancer Ro Norton, MORGAN, [facility] Procedures BI Breast Screening Bilateral with Tomosynthesis C.N.P., D.N.P. [address] [place] [phone] Referral ID Status Reason Start Date Expiration Date Visits V isits Requested Authorized [id number] Authorized 12/21/2021 12/21/2022 1 1 Encounter Details Date Type Department Care Team Description 12/21/2021 Orders Only [facility] Norton, Screening Mammogram MORGAN C.N.PRaffy, Breast Cancer D.N.P. [address] [place] [phone] Social History Tobacco Use Types Packs/Day [...] do you attend yarsani or Never 2021 yazdanism services? Do you [...] Appointment Radiology Ro Norton APRN, C.N.P., D.N.P. [address] [phone] (Amanda goldman) 01/27/2022 Clinical Support Integrative Medicine Sohan Carballo y [address] [place], [place] [phone] (Amanda goldman) Scheduled Orders Name Type Priority Associated Order Schedule Diagnoses BI Breast Screening Imaging RAD - Routine (most Screening Mamm ogram Expected: Bilateral with inpatients and all Breast Cancer 2021, Tomosynthesis outpatients) Expires: 06/19/2022 documented as of this encounter Visit Diagnoses Diagnosis Screening Mammogram Breast Cancer documented in this encounter Care Teams Hull Outfit Supervisor Relationship Specialty Start Date End Date Ro Norton APRN, C.N.P., PCP - General Family Medicine D.N.P. [address] [phone] documented as of this encounter
--- OUTSIDE RECORDS SUMMARY | 2022-01-17 13:07 | XMS_ITS | Encounter Summary ---
:1970 Author Organization [facility] Address [address] [place] [address] Care Team Providers Name Role Phone Ro Norton APRN, C.N.P., D.N.P. Primary Care Provider Encounter Details Date Type Department Care Team Description 07/26/2021 Orders Only Department of Family Ro Norton He patitis C (Primary Medicine, [place] MORGAN, C.N.P., Dx) Clinic, in [address] [phone] Social History Tobacco Use Types Packs/Day Years [...] or relatives? How often do you attend presybeterian or Never 2021 temple services? Do you belong to any clubs or No 02/25/2021 organizations such as presybeterian groups, unions, fraternal or athletic groups, or [...] Appointment Radiology Ro Norton APRN, C.N.P., D.N.P. [address] [phone] (Amanda goldman) 01/27/2022 Clinical Support Integrative Medicine Haris, Iv y [address] [place], [place] [phone] (Amanda rk) documented as of this encounter Visit Diagnoses Diagnosis Hepatitis C - Primary documented in this encounter Care Teams Granite Setter Relationship Specialty Start Date End Date Ro Norton APRN, C.N.P., PCP - General Family Medicine D.N.P. [address] [phone] documented as of this encounter
--- OUTSIDE RECORDS SUMMARY | 2022-01-17 13:08 | XMS_ITS | Encounter Summary ---
:1970 Author Organization [facility] Address [address] [place] [address] Care Team Providers Name Role Phone Ro Norton APRN C.N.PRaffy, D.N.P. Primary Care Provider Reason for Referral Medication Prior Authorization - Closed Specialty Diagnoses / Procedures Referred By Contact Refer red To Contact Diagnoses Hypertension Pulmonary Primary (HCC) Lubna Mcmillan M.D. [address] [place] [address] Referral ID Status Reason Start Date Expiration Date Visits Requ ested Visits Authorized [id number] Closed 1 1 TED PRODUCTS ASSEMBLER Encounter Details Date Type Department Care Team Description 04/27/2021 Orders Only RST CCM Lubna Mcmillan Hypertension Pulmonary 200 [facility] Michael Ansari Primary (HCC) [place], [place] 200 [facility] [address] [place] [address] Social History Tobacco Use Types Packs/Day Years [...] do you attend amish or Never 2021 baptist services? Do you belong to any clubs or No 02/25/2021 organizations such as amish groups, unions, fraPush Energy or athletic groups, or school groups? How [...] Appointment Radiology Ro Norton APRN, C.N.P., D.N.P. [address] [phone] (Amanda goldmna) 01/27/2022 Clinical Support Integrative Medicine Haris, Sohan y [address] [place], [place] [phone] (Amanda goldman) documented as of this encounter Visit Diagnoses Diagnosis Hypertension Pulmonary Primary (HCC) documented in this encounter Care Teams Radiological Technician Relationship Specialty Start Date End Date Ro Norton APRN, C.N.P., PCP - General Family Medicine D.N.P. [address] [phone] documented as of this encounter
--- OUTSIDE RECORDS SUMMARY | 2022-01-17 13:08 | XMS_ITS | Encounter Summary ---
:1970 Author Organization [facility] Address [address] [place] [address] Care Team Providers Name Role Phone Ro Norton APRN, C.N.P., D.N.P. Primary Care Provider Encounter Details Date Type Department Care Team Description 05/18/2021 Orders Only Pharmacy Prior Auth RO Kayy Velazquez [phone] Social History Tobacco Use Types Packs/Day Years [...] do you attend jainism or Never 2021 adventist services? Do you [...] Appointment Radiology Ro Norton APRN, C.N.P., D.N.P. [address] [phone] (Wo rk) 01/27/2022 Clinical Support Integrative Medicine Haris, Iv y [address] [place], [place] [phone] (Wo rk) documented as of this encounter Visit Diagnoses Not on filedocumented in this encounter Care Teams Forming And Assembling Supervisor Relationship Specialty Start Date End Date Ro Norton APRN, C.N.P., PCP - General Family Medicine D.N.P. [address] [phone] documented as of this encounter
--- OUTSIDE RECORDS SUMMARY | 2022-01-17 13:08 | XMS_ITS | Encounter Summary ---
:1970 Author Organization [facility] Address [address] [place] [address] Care Team Providers Name Role Phone Ro Norton APRN C.N.P., D.N.P. Primary Care Provider Encounter Details Date Type Department Care Team Description 06/28/2021 Orders Only Division of Pulmonary Archana Mcmillan M.D. Medicine in [place], [facility] [address] [place], [place] [address] [facility] [address] [place] [address] [phone] Social History Tobacco Use Types Packs/Day Years [...] do you attend catholic or Never 2021 mandaen services? Do you [...] Appointment Radiology Ro Norton APRN, C.N.P., D.N.P. [address] [phone] (Wo rk) 01/27/2022 Clinical Support Integrative Medicine Haris, Iv y [address] [place], [place] [phone] (Wo rk) documented as of this encounter Visit Diagnoses Not on filedocumented in this encounter Care Teams Contract Administration Specialist Relationship Specialty Start Date End Date Ro Norton APRN, C.N.P., PCP - General Family Medicine D.N.P. [address] [phone] documented as of this encounter
--- OUTSIDE RECORDS SUMMARY | 2022-01-17 13:08 | XMS_ITS | Encounter Summary ---
:1970 Author Organization [facility] Address [address] [place] [address] Care Team Providers Name Role Phone Ro Norton APRN C.N.P., D.N.P. Primary Care Provider Reason for Visit Reason Comments Care Coordination Encounter Details Date Type Department Care Team Description 04/21/2021 Patient Outreach Department of Miranda Phillips Care Oracle Wms Consultant rdination Cardiovascular Medicine R.N. in [facility] 200 [facility] [address] [place] [address] [phone] Social History Tobacco Use Types Packs/Day Years [...] many times do you More than three devno es a week 02/25/2021 talk on the phone with family, friends, or neighbors? How often do you get together with friends More than three t imes a week 02/25/2021 or relatives? How often do you attend samaritan or Never 2021 yarsani services? Do you [...] attempts to reach her at this time. NE SERVICE INSTRUCTOR TRAINER documented in this encounter Plan of Treatment Upcoming Encounters Date Type Specialty Care Team Description 01/21/2022 Appointment Radiology Ro Norton APRN, C.N.P., D.N.P. [address] [phone] (Amanda goldman) 01/27/2022 Clinical Support Integrative Medicine Haris, Iv y [address] [place], [place] [phone] (Amanda goldman) documented as of this encounter Visit Diagnoses Not on filedocumented in this encounter Care Teams Senior Biostatistician/Group Leader Relationship Specialty Start Date End Date Ro Norton APRN, C.N.P., PCP - General Family Medicine D.N.P. [address] [phone] documented as of this encounter
--- OUTSIDE RECORDS SUMMARY | 2022-01-17 13:08 | XMS_ITS | Encounter Summary ---
:1970 Author Organization [facility] Address [address] [place] [address] Care Team Providers Name Role Phone Ro Norton APRN C.N.P., D.N.P. Primary Care Provider Reason for Visit Reason Comments Care Coordination Encounter Details Date Type Department Care Team Description 04/14/2021 Patient Outreach Department of Miranda Phillips Care Weapons Mechanic rdination Cardiovascular Medicine R.N. in [facility] 200 [facility] [address] [place] [address] [phone] Social History Tobacco Use Types Packs/Day Years [...] do you attend sabianist or Never 2021 samaritan services? Do you belong to any clubs [...] wasalso sent through the on line portal. ER OPERATOR documented in this encounter Plan of Treatment Upcoming Encounters Date Type Specialty Care Team Description 01/21/2022 Appointment Radiology Ro Norton APRN, C.N.P., D.N.P. [address] [phone] (Amanda goldman) 01/27/2022 Clinical Support Integrative Medicine Haris, Iv y [address] [place], [place] [phone] (Amanda goldman) documented as of this encounter Visit Diagnoses Not on filedocumented in this encounter Care Teams Manager Convention Relationship Specialty Start Date End Date Ro Norton APRN, C.N.P., PCP - General Family Medicine D.N.P. [address] [phone] documented as of this encounter
--- OUTSIDE RECORDS SUMMARY | 2022-01-17 13:08 | XMS_ITS | Encounter Summary ---
:1970 Author Organization [facility] Address [address] [place] [address] Care Team Providers Name Role Phone Ro Norton APRN C.NDean, D.N.P. Primary Care Provider Reason for Referral Outpatient (Routine) - Closed Specialty Diagnoses / Procedures Referred By Contact Refer red To Contact Diagnoses Pain Wrist Right Yolie Leigh [facility] [place] [facility] Procedures DX Wrist Right 3+ Views P.A.-C. [address] [place] [address] Referral ID Status Reason Start Date Expiration Date Visits Requ ested Visits Authorized [id number] Closed 04/21/2021 04/21/2022 1 1 SUGAR CUTTER Reason for Visit Outpatient (Routine) - Closed Specialty Diagnoses / Procedures Referred By Contact Refer red To Contact Diagnoses Pain Wrist Right Yolie Leigh [facility] [place] [facility] Procedures DX Wrist Right 3+ Views P.A.-C. [address] [place] [phone] Referral ID Status Reason Start Date Expiration Date Visits Requ ested Visits Authorized [id number] Closed 04/21/2021 04/21/2022 1 1 Encounter Details Date Type Department Care Team Description 04/21/2021 Hospital Encounter Department of Yolie Leigh in Wrist Right Radiology in Carlos Alberto Cabrera P.A.-C. [place], [place] 701 [facility] 701 [facility] Carlos Alberto [place] [phone] Social History Tobacco Use Types Packs/Day Years [...] do you attend baptist or Never 2021 mu-ism services? Do you [...] Appointment Radiology Ro Norton APRN, C.N.P., D.N.P. [address] [phone] (Wo rk) 01/27/2022 Clinical Support Integrative Medicine Sohan Carballo y [address] [place], [place] [phone] (Wo rk) documented as of this encounter Procedures Procedure Name Priority Date/Time Associated Comments Diagnosis DX WRIST RIGHT 3+ RAD - Routine 04/21/2021 10:35 Pain Wrist Right R esults for this VIEWS (most inpatients AM SOFT SUGAR CUTTER procedure a re in and all the results outpatients) section. documented in this encounter Results DX Wrist Right 3+ Views (04/21/2021 10:35 AM SOFT SUGAR CUTTER) Anatomical Region Laterality Modality Upper Extremity, Wrist, Musculoskeletal RST LOS, Right Digital Radiography Musculoskeletal ARZ LOS, Muskuloskeletal FLA LOS Specimen (Source) Anatomical Collection Method Collection Time Re ceived Time Location / / Volume Laterality 04/21/2021 10:51 AM SOFT SUGAR CUTTER Impressions 04/21/2021 10:54 AM SOFT SUGAR CUTTER Impacted moderately comminuted, minimally displaced intra-articular fracture [...] variance. Remainder negative. Narrative 04/21/2021 10:54 AM SOFT SUGAR CUTTER EXAM: ??DX WRIST RIGHT 3+ VIEWS Procedure [...] Right documented in this encounter Care Teams Management Professional Relationship Specialty Start Date End Date Ro Norton APRN, C.N.P., PCP - General Family Medicine D.N.P. [address] [phone] documented as of this encounter
--- OUTSIDE RECORDS SUMMARY | 2022-01-17 13:08 | XMS_ITS | Encounter Summary ---
:1970 Author Organization [facility] Address [address] [place] [address] Care Team Providers Name Role Phone Ro Norton APRN, C.N.P., D.N.P. Primary Care Provider Encounter Details Date Type Department Care Team Description 05/17/2021 Orders Only Pharmacy Prior Auth RO Miles Jolley [phone] Social History Tobacco Use Types Packs/Day Years [...] do you attend protestant or Never 2021 faith services? Do you [...] Appointment Radiology Ro Norton APRN, C.N.P., D.N.P. [address] [phone] (Wo rk) 01/27/2022 Clinical Support Integrative Medicine Haris, Iv y [address] [place], [place] [phone] (Wo rk) documented as of this encounter Visit Diagnoses Not on filedocumented in this encounter Care Teams Java Programming Professor Relationship Specialty Start Date End Date Ro Norton APRN, C.N.P., PCP - General Family Medicine D.N.P. [address] [phone] documented as of this encounter
--- OUTSIDE RECORDS SUMMARY | 2022-01-17 13:08 | XMS_ITS | Encounter Summary ---
:1970 Author Organization [facility] Address [address] [place] [address] Care Team Providers Name Role Phone Ro Norton APRN C.N.P., D.N.P. Primary Care Provider Reason for Visit Reason Comments PA denied Encounter Details Date Type Department Care Team Description 07/09/2021 Clinical Communication Division of Pulmonary Lubna Mcmillan denied Medicine in Elan Faust M.D. [place] [address] [facility] [address] [place] [phone] Social History Tobacco Use Types Packs/Day Years [...] do you attend mandaen or Never 2021 spiritism services? Do you [...] according to the pharmacist. Her insurance with [facility] terminated 04/19/2021. We had last been waiting for her to update our team with her [employer] ID number. I tried to reach Heatherbut she did not warehouse order picker. The [facility] pharmacy indicates her [place] Medicaid number is [id number]. They looked for her are ID number and the pharmacist indicates she has just straight [place] which started 05/21/2021. I was provided the phone number [phone] to complete the PA. I completed the PAover the phone and approval is pending. Telephone Encounter - Aniya Howard - 07/09/2021 9:33 AM CDT Call Message Who is Calling: Call Back: [phone] [facility] Medicaid insurance [phone] Message: The PA for sildenafil got denied. Can we get a denial letter sent. Patient cant afford the medication and is out [place] [facility] is giving a coupon to help pay for the medication also Aniya JOLLY [phone] documented in this encounter Plan of Treatment Upcoming Encounters Date Type Specialty Care Team Description 01/21/2022 Appointment Radiology Ro Norton APRN, C.N.P., D.N.P. [address] [place] [address] [phone] (Wo rk) 01/27/2022 Clinical Support Integrative Medicine Haris, Iv y [address] [place], [place] [phone] (Wo rk) documented as of this encounter Visit Diagnoses Not on filedocumented in this encounter Care Teams Subscription Clerk Relationship Specialty Start Date End Date Ro Norton APRN, C.N.P., PCP - General Family Medicine D.N.P. [phone] [place] [address] [phone] documented as of this encounter
--- OUTSIDE RECORDS SUMMARY | 2022-01-17 13:08 | XMS_ITS | Encounter Summary ---
:1970 Author Organization [facility] Address [address] [place] [address] Care Team Providers Name Role Phone Ro Norton APRN C.N.P., D.N.P. Primary Care Provider Reason for Visit Reason Comments Med Refill Encounter Details Date Type Department Care Team Description 04/15/2021 Refill Department of Family Medicine, Angela Hernandez, Med Refill [facility], in [place] [address] [phone] Social History Tobacco Use [...] do you attend tenriism or Never 2021 lutheran services? Do you [...] Appointment Radiology Ro Norton APRN, C.N.P., D.N.P. [address] [phone] (Wo rk) 01/27/2022 Clinical Support Integrative Medicine Haris, Iv y [address] [place], [place] [phone] (Wo rk) documented as of this encounter Visit Diagnoses Not on filedocumented in this encounter Care Teams Band Aid Machine Operator Relationship Specialty Start Date End Date Ro Norton APRN, C.N.P., PCP - General Family Medicine D.N.P. [address] [phone] documented as of this encounter
--- OUTSIDE RECORDS SUMMARY | 2022-01-17 13:08 | XMS_ITS | Encounter Summary ---
:1970 Author Organization [facility] Address [address] [place] [address] Care Team Providers Name Role Phone Ro Norton APRN C.N.Kirsty, D.N.P. Primary Care Provider Encounter Details Date Type Department Care Team Description 06/13/2021 E-Visit [facility] Express SmaEdith clarke, Expr ess Care Online for Care at the [place] MORGAN, C.N.P., Sinus Symp toms Building on the 4th M.S.N. (sinusitis) Floor [address] [place] [address] [address] [place] [phone] [phone] Social History Tobacco Use Types Packs/Day Years [...] do you attend uatsdin or Never 2021 mosque services? Do you [...] Appointment Radiology Ro Norton APRN, C.N.P., D.N.P. [address] [phone] (Amanda goldman) 01/27/2022 Clinical Support Integrative Medicine Haris, Iv y [address] [place], [place] [phone] (Amanda goldman) documented as of this encounter Visit Diagnoses Diagnosis Infection Upper Respiratory - Primary documented in this encounter Care Teams Litigation Paralegal Relationship Specialty Start Date End Date Ro Norton APRN, C.N.P., PCP - General Family Medicine D.N.P. [address] [phone] documented as of this encounter
--- OUTSIDE RECORDS SUMMARY | 2022-01-17 13:08 | XMS_ITS | Encounter Summary ---
:1970 Author Organization [facility] Address [address] [place] [address] Care Team Providers Name Role Phone Ro Norton APRN, C.N.PRaffy, D.N.P. Primary Care Provider Reason for Referral Outpatient (Routine) - Closed Specialty Diagnoses / Procedures Referred By Contact Refer red To Contact Emergency Medicine Diagnoses Swelling Face Darryl Blackman, [facility] MORGAN, C.N.P. [address] [place] [phone] Referral ID Status Reason Start Date Expiration Date Visits Requ ested Visits Authorized [id number] Closed 06/26/2021 06/26/2022 1 1 Reason for Visit Reason Comments Facial Swelling Ongoing facial swelling for about two weeks. No difficulty with breathing. Encounter Details Date Type Department Care Team Description 06/26/2021 Emergency [facility] Darryl Blackman , Swelling Face (Primary Dx); Department MORGAN, C.N.P. Allergy Unspecified Initial [address] [place] [address] [place] [phone] (Wo rk) Social History Tobacco Use [...] be sent through Care Everywhere. Allergies Adult Tzzk-km-Btyn (Tamazight)documented in this encounter Medications at Time of [...] waned but she has been living in [place] and did not want to see a provider there. She is back in town to see her ruby on rails consultant and primary care provider locally. Overall I [...] Appointment Radiology Ro Norton APRN, C.N.P., D.N.P. [address] [phone] (Wo rk) 01/27/2022 Clinical Support Integrative Medicine Haris, Iv y [address] [place], [place] [phone] (Amanda rk) Scheduled Referrals Name Type Priority Associated Diagnoses Order S chedule POST ED VISIT Outpatient Referral Routine Swelling Face Expect ed: Family Medicine 06/29/2021, Expires: 09/26/2022 documented as of this encounter Visit Diagnoses Diagnosis Swelling Face - Primary Allergy Unspecified Initial documented in this encounter Care Teams Employee Communications Coordinator Relationship Specialty Start Date End Date Ro Norton APRN, C.N.P., PCP - General Family Medicine D.N.P. [address] [phone] documented as of this encounter
--- OUTSIDE RECORDS SUMMARY | 2022-01-17 13:08 | XMS_ITS | Encounter Summary ---
:1970 Author Organization [facility] Address [address] [place] [address] Care Team Providers Name Role Phone Ro Norton APRN C.N.P., D.N.P. Primary Care Provider Reason for Visit Reason Comments Med Refill Encounter Details Date Type Department Care Team Description 06/25/2021 Refill Division of Pulmonary Medicine Lubna Cleary M.D. Med Refill in [facility] [address] [facility] [address] [place] [address] [place] [address] [phone] Social History Tobacco Use Types Packs/Day Years [...] do you attend jew or Never 2021 druze services? Do you [...] Appointment Radiology Ro Norton APRN, C.N.P., D.N.P. [address] [phone] (Wo rk) 01/27/2022 Clinical Support Integrative Medicine Haris, Iv y [address] [place], [place] [phone] (Wo rk) documented as of this encounter Visit Diagnoses Not on filedocumented in this encounter Care Teams Director Enterprise Data Architecture Relationship Specialty Start Date End Date Ro Norton APRN, C.N.P., PCP - General Family Medicine D.N.P. [address] [phone] documented as of this encounter
--- OUTSIDE RECORDS SUMMARY | 2022-01-17 13:08 | XMS_ITS | Encounter Summary ---
:1970 Author Organization [facility] Address [address] [place] [address] Care Team Providers Name Role Phone Ro Norton APRN C.N.P., D.N.P. Primary Care Provider Reason for Visit Reason Comments Med Refill Encounter Details Date Type Department Care Team Description 03/31/2021 Clinical Communication [facility] Karine Coles Med Refill [place] A, Pharm.D., [address] [place] [address] R.Ph. [place] [phone] [facility] [phone] [place] [phone] Social History Tobacco Use Types Packs/Day Years [...] do you attend bahai or Never 2021 episcopal services? Do you [...] of albuterol inhaler. Thank you, [facility] - [place] LE FINISHER documented in this encounter Plan of Treatment Upcoming Encounters Date Type Specialty Care Team Description 01/21/2022 Appointment Radiology Ro Norton APRN, C.N.P., D.N.P. [address] [phone] (Wo rk) 01/27/2022 Clinical Support Integrative Medicine Sohan Carballo y [address] [place], [place] [phone] (Amanda rk) documented as of this encounter Visit Diagnoses Not on filedocumented in this encounter Care Teams Binder Caser Relationship Specialty Start Date End Date Ro Norton APRN, C.N.P., PCP - General Family Medicine Kristin [address] [phone] documented as of this encounter
--- OUTSIDE RECORDS SUMMARY | 2022-01-17 13:08 | XMS_ITS | Encounter Summary ---
:1970 Author Organization [facility] Address [address] [place] [address] Care Team Providers Name Role Phone Ro Norton APRN, C.N.Kirsty, D.N.P. Primary Care Provider Encounter Details Date Type Department Care Team Description 04/22/2021 E-Visit [facility] Express Paige Cooley, Shrutir ess Care Online for Care at the [place] MORGAN, C.N.P., Bladder In fection Building on the D.N.P. (female anatomy, age Floor [address] [place] [address] 12-65 years) [address] [place] [phone] [phone] Social History Tobacco Use Types Packs/Day Years [...] do you attend taoism or Never 2021 episcopal services? Do you [...] Appointment Radiology Ro Norton APRN, C.N.P., D.N.P. [address] [phone] (Amanda goldman) 01/27/2022 Clinical Support Integrative Medicine Haris, Iv y [address] [place], [place] [phone] (Amanda goldman) documented as of this encounter Visit Diagnoses Diagnosis Symptom Urinary - Primary documented in this encounter Care Teams Healthcare Project Manager Relationship Specialty Start Date End Date Ro Norton APRN, C.N.P., PCP - General Family Medicine D.N.P. [address] [phone] documented as of this encounter
--- OUTSIDE RECORDS SUMMARY | 2022-01-17 13:08 | XMS_ITS | Encounter Summary ---
:1970 Author Organization [facility] Address [address] [place] [address] Care Team Providers Name Role Phone Ro Norton APRN C.N.PRaffy, D.N.P. Primary Care Provider Encounter Details Date Type Department Care Team Description 03/31/2021 Orders Only [facility] Pamela Vallecillo APRN, [place] C.N.PRaffy, D.N.P. [address] [phone] [place], [place] [phone] (Wo rk) Social History Tobacco Use [...] do you attend synagogue or Never 2021 judaism services? Do you [...] Appointment Radiology Ro Norton APRN, C.N.P., D.N.P. [address] [phone] (Wo rk) 01/27/2022 Clinical Support Integrative Medicine Haris, Iv y [address] [place], [place] [phone] (Wo rk) documented as of this encounter Visit Diagnoses Not on filedocumented in this encounter Care Teams Physician Support Coordinator Relationship Specialty Start Date End Date Ro Norton APRN, C.N.P., PCP - General Family Medicine D.N.P. [address] [phone] documented as of this encounter
--- OUTSIDE RECORDS SUMMARY | 2022-01-17 13:08 | XMS_ITS | Encounter Summary ---
:1970 Author Organization [facility] Address [address] [place] [address] Care Team Providers Name Role Phone Ro Norton APRN, C.N.P., D.N.P. Primary Care Provider Encounter Details Date Type Department Care Team Description 06/04/2021 E-Visit [facility] Ingrid Steinberg E xpress Care Online for Care at the [place] Mikala MORA, M .S.N. Seasonal Allergies Building on the [address] [place], [place] [address] [facility] [address] [place], [place] [phone] (Wo rk) [address] [phone] Social History Tobacco Use Types Packs/Day Years [...] do you attend pentecostal or Never 2021 druze services? Do you [...] Appointment Radiology Ro Norton APRN, C.N.P., D.N.P. [address] [phone] (Amanda goldman) 01/27/2022 Clinical Support Integrative Medicine Haris, Iv y [address] [place], [place] [phone] (Amanda rk) documented as of this encounter Visit Diagnoses Diagnosis Congestion Nasal - Primary documented in this encounter Care Teams Core Measures Abstractor Relationship Specialty Start Date End Date Ro Norton APRN, C.N.P., PCP - General Family Medicine D.N.P. [address] [phone] documented as of this encounter
--- OUTSIDE RECORDS SUMMARY | 2022-01-17 13:08 | XMS_ITS | Encounter Summary ---
:1970 Author Organization [facility] Address [address] [place] [address] Care Team Providers Name Role Phone Ro Norton APRN, C.N.P., D.N.P. Primary Care Provider Reason for Visit Reason Comments Rx Prior Authorization PA DENIED SILDENAFIL 20 MG T AB Encounter Details Date Type Department Care Team Description 06/08/2021 Clinical Communication Pharmacy Prior Auth Robert Mccarty Rx Prior RO [phone] Authorization (PA DENIED SILDENAF [place] 20 MG [...] do you attend judaism or Never 2021 orthodoxy services? Do you [...] R.N. - 06/08/2021 2:38 PM CDT Her [facility] [employer] insurance terminated 04/19/2021. That is the reason behind the denial. Her cell phone is out of service. I called her home phone. She confirmed she has [email or web address] insurance.She did not have the letter on her with the phone number for [employer] at the time of my call. She indicates she has not received a card yet with an ID number. On 04/27/2021 the sildenafil [facility]. [facility] in [place] indicates they transferred the prescription to the [facility] - . The [place] pharmacy indicates her [place] Medicaid numberis [id number]. I called [place] Medicaid at [phone] and they indicated we should call [facility]. Trevor wait for Allison to call back with the [facility] number. Telephone Encounter - Robert Mccarty - [...] Appointment Radiology Ro Norton APRN, C.N.P., D.N.P. [address] [phone] (Amanda goldman) 01/27/2022 Clinical Support Integrative Medicine Haris, Iv y [address] [place], [place] [phone] (Amanda goldman) documented as of this encounter Visit Diagnoses Not on filedocumented in this encounter Care Teams Welder Gas Relationship Specialty Start Date End Date Ro Norton APRN, C.N.P., PCP - General Family Medicine D.N.P. [address] [phone] documented as of this encounter
--- OUTSIDE RECORDS SUMMARY | 2022-01-17 13:08 | XMS_ITS | Encounter Summary ---
:1970 Author Organization [facility] Address [address] [place] [address] Care Team Providers Name Role Phone Ro Norton APRN, C.N.P., D.N.P. Primary Care Provider Encounter Details Date Type Department Care Team Description 07/09/2021 Orders Only Pharmacy Prior Auth RO Lyssa Alfred [phone] Social History Tobacco Use Types Packs/Day Years [...] do you attend congregation or Never 2021 yazidism services? Do you [...] Care Team Description 01/21/2022 Appointment Radiology Ro Nroton APRN, C.N.P., D.N.P. [address] [phone] (Wo rk) 01/27/2022 Clinical Support Integrative Medicine Haris, Iv y [address] [place], [place] [phone] (Wo rk) documented as of this encounter Visit Diagnoses Not on filedocumented in this encounter Care Teams Liquid Sugar Melter Relationship Specialty Start Date End Date Ro Norton APRN, C.N.P., PCP - General Family Medicine D.N.P. [address] [phone] documented as of this encounter
--- OUTSIDE RECORDS SUMMARY | 2022-01-17 13:08 | XMS_ITS | Encounter Summary ---
:1970 Author Organization [facility] Address [address] [place] [address] Care Team Providers Name Role Phone Ro Norton APRN C.N.P., D.N.P. Primary Care Provider Encounter Details Date Type Department Care Team Description 05/14/2021 Orders Only Division of Pulmonary Archana Mcmillan M.D. Medicine in [place], [facility] [address] [place], [place] [address] [facility] [address] [place] [address] [phone] Social History Tobacco Use Types Packs/Day Years [...] do you attend denominational or Never 2021 caodaism services? Do you [...] Appointment Radiology Ro Norton APRN, C.N.P., D.N.P. [address] [phone] (Wo rk) 01/27/2022 Clinical Support Integrative Medicine Haris, Sohan y [address] [place], [place] [phone] (Wo rk) documented as of this encounter Visit Diagnoses Not on filedocumented in this encounter Care Teams Plasma Center Technician Relationship Specialty Start Date End Date Ro Norton APRN, C.N.P., PCP - General Family Medicine D.N.P. [address] [phone] documented as of this encounter
--- OUTSIDE RECORDS SUMMARY | 2022-01-17 13:08 | XMS_ITS | Encounter Summary ---
:1970 Author Organization [facility] Address [address] [place] [address] Care Team Providers Name Role Phone Ro Norton APRN C.N.P., D.N.P. Primary Care Provider Encounter Details Date Type Department Care Team Description 06/22/2021 Orders Only [facility] PCP [facility] Sa rosalinda Erickson M.D. Screening Lipid [address] [place] [phone] (Wo rk) Social History Tobacco Use Types [...] do you attend yazidi or Never 2021 latter-day services? Do you [...] Appointment Radiology Ro Norton APRN, C.N.P., D.N.P. [address] [phone] (Wo rk) 01/27/2022 Clinical Support Integrative Medicine Haris, Iv y [address] [place], [place] [phone] (Wo rk) documented as [...] Organization Address City/State/ZIP Code Phon e Number [facility]- [address] [place] [address] [place] [address] System in [address] documented in this encounter Visit Diagnoses Diagnosis Screening Lipid documented in this encounter Care Teams Manufacturing Manager Relationship Specialty Start Date End Date Ro Norton APRN, C.N.P., PCP - General Family Medicine D.N.P. [address] [place] [phone] documented as of this encounter
--- OUTSIDE RECORDS SUMMARY | 2022-01-17 13:08 | XMS_ITS | Encounter Summary ---
:1970 Author Organization [facility] Address [address] [place] [address] Care Team Providers Name Role Phone Ro Norton APRN C.N.P., D.N.P. Primary Care Provider Reason for Visit Reason Comments Flank Pain Encounter Details Date Type Department Care Team Description 05/04/2021 Emergency [place] [facility] [place], Derrell Seaman lonephritis Acute (Primary Dx); Department M.D. Pyelonephritis Acute [address] NATHANIEL [place], [place] [phone] (Wo rk) Social History Tobacco Use [...] do you attend congregation or Never 2021 moravian services? Do you [...] be sent through Care Everywhere. Pyelonephritis Adult Cpzi-vc-Ieki (Uzbek)documented in this encounter Medications at Time of [...] Appointment Radiology Ro Norton APRN, C.N.P., D.N.P. [address] [phone] (Amanda goldman) 01/27/2022 Clinical Support Integrative Medicine Sohan Carballo y [address] [place], [place] [phone] (Wo rk) documented as [...] Code Phon e Number [facility]- [address] [place], [place] [address] [facility] [place] [place] [address] System in [place] [address] (ABNORMAL) Comprehensive Metabolic Panel [...] CDT eGFR-Black/Afri >90 >=60 05/04/2021 [facility] can Indian mL/min/BSA 5:10 PM CDT Comment: ----ADDITIONAL INFORMATION---- [...] Code Phon e Number [facility]- [address] [place], [place] [address] [facility] [place] [place] [address] System in [place] 701 [facility] (ABNORMAL) CBC with Differential, Blood (05/04/2021 4:32 PM CDT) [facility] gist Method Time Signature Hemoglobin 15.9 [...] Code Phon e Number [facility]- [address] [place] [address] [facility] [place] [address] System in [place] 701 [facility] (ABNORMAL) Bacterial Culture, Aerobic + Susc, Urine (05/04/2021 4:14 PM CDT) [facility] Method Time Signature Urine Culture ESCHERICHIA [...] Code Phon e Number [facility]- [address] [place] [address]43 [facility] [place] [address] System [address] (ABNORMAL) Urinalysis with Microscopic: Urine, Midstream (05/04/2021 4:14 PM CDT) athologist Signature Source Midstream 05/04/2021 [facility] 4:41 PM CDT Clarity Cloudy (A) Clear 05/04/2021 [facility] 4:41 PM CDT Color [place] (A) 05/04/2021 [facility] 4:41 PM CDT Comment: [...] determine due to colo r interference Specific [place] SEE COMMENT 1.001 - 1.035 05/04/2021 4:41 [...] Code Phon e Number [facility]- [address] [place], [place] [address] [facility] [place] [address] System in [place] [address] documented in this encounter [...] this section may contain times in both DIRECTOR CLIENT SERVICES and CDT. Scheduled Medication Order 05/02/2021 05/03/2021 [...] dose documented in this encounter Care Teams Food Server Relationship Specialty Start Date End Date Ro Norton APRN, C.N.P., PCP - General Family Medicine D.N.P. [address] [phone] documented as of this encounter
--- OUTSIDE RECORDS SUMMARY | 2022-01-17 13:08 | XMS_ITS | Encounter Summary ---
:1970 Author Organization [facility] Address [address] [place] [address] Care Team Providers Name Role Phone Ro Norton APRN C.N.PRaffy, D.N.P. Primary Care Provider Encounter Details Date Type Department Care Team Description 03/09/2021 Orders Only [facility] Pamela Vallecillo APRN, [place] C.N.PRaffy, D.N.P. [address] [phone] [place], [place] [phone] (Wo rk) Social History Tobacco Use [...] do you attend presybeterian or Never 2021 mandaeism services? Do you [...] Appointment Radiology Ro Norton APRN, C.N.P., D.N.P. [address] [phone] (Wo rk) 01/27/2022 Clinical Support Integrative Medicine Haris, Iv y [address] [place], [place] [phone] (Wo rk) documented as of this encounter Visit Diagnoses Not on filedocumented in this encounter Care Teams Community Organization Aide Relationship Specialty Start Date End Date Ro Norton APRN, C.N.P., PCP - General Family Medicine D.N.P. [address] [phone] documented as of this encounter
--- OUTSIDE RECORDS SUMMARY | 2022-01-17 13:08 | XMS_ITS | Encounter Summary ---
:1970 Author Organization [facility] Address [address] [place] [address] Care Team Providers Name Role Phone Ro Norton APRN C.N.Kirsty, D.N.P. Primary Care Provider Encounter Details Date Type Department Care Team Description 04/15/2021 Orders Only Department of Family Vikki Hernandez, Medicine, [place] [facility], in [address] [phone] Social History Tobacco Use [...] do you attend episcopal or Never 2021 pentecostalism services? Do you [...] Appointment Radiology Ro Norton APRN, C.N.P., D.N.P. [address] [phone] (Wo rk) 01/27/2022 Clinical Support Integrative Medicine Haris, Iv y [address] [place], [place] [phone] (Wo rk) documented as of this encounter Visit Diagnoses Not on filedocumented in this encounter Care Teams Personal Development Educator Relationship Specialty Start Date End Date Ro Norton APRN, C.N.P., PCP - General Family Medicine D.N.P. [address] [phone] documented as of this encounter
--- OUTSIDE RECORDS SUMMARY | 2022-01-17 13:08 | XMS_ITS | Encounter Summary ---
:1970 Author Organization [facility] Address [address] [place] [address] Care Team Providers Name Role Phone Ro Norton APRN C.N.PRaffy, D.N.P. Primary Care Provider Reason for Referral Outpatient (Routine) - Authorized Specialty Diagnoses / Procedures Referred By Contact Francine mitchell To Contact Orthopedic Surgery Yolie Leigh [facility] P.A.-C. [address] [place] [address] Referral ID Status Reason Start Date Expiration Date Visits V isits Requested Authorized [id number] Authorized 04/21/2021 04/21/2022 1 1 ACTOR OPERATOR Outpatient (Routine) - Closed Specialty Diagnoses / Procedures Referred By Contact Francine mitchell To Contact Diagnoses Pain Wrist Right Yolie Leigh [facility] Procedures DX Wrist Right 3+ Views P.A.-C. [address] [place] [phone] Referral ID Status Reason Start Date Expiration Date Visits Requ ested Visits Authorized [id number] Closed 04/21/2021 04/21/2022 1 1 ACTOR OPERATOR Reason for Visit Appointment Request (Routine) - Closed Specialty Diagnoses / Procedures Referred By Contact Refer red To Contact Family Medicine Referral ID Status Reason Start Date Expiration Date Visits Requ ested Visits Authorized [id number] Closed 04/06/2021 04/06/2022 1 1 Encounter Details Date Type Department Care Team Description 04/21/2021 Comprehensive Visit Department of [place] Leigh ist Right Orthopedic Surgery Yolie Cabrera (Primary Dx) in [place] [address] [phone] Social History Tobacco Use Types Packs/Day [...] do you attend advent or Never 2021 christian services? Do you [...] the ice fracturing her wrist, presented to [facility] on 04/03/2021 and was placed in a [...] trying to quit. 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 She is currently not working. She has a son who goes to [place] and plays baseball and she has2 daughters, [...] Yolie Leigh P.A.-C. CT CT Job ID: [id number]/[facility] ACTOR OPERATOR documented in this encounter Plan of Treatment Upcoming Encounters Date Type Specialty Care Team Description 01/21/2022 Appointment Radiology Ro Norton APRN, C.N.P., D.N.P. [address] [phone] (Wo rk) 01/27/2022 Clinical Support Integrative Medicine Haris, Iv y [address] [place], [place] [phone] (Wo rk) Scheduled Referrals Name Type Priority Associated Order Schedule Diagnoses Orthopedic Surgery Outpatient Referral Routine Ex pected: office visit 05/12/2021 (clinic) (Approximate), Expires: 07/22/2022 documented as of this encounter Results DX Wrist Right 3+ Views (04/21/2021 10:35 AM EXTRACTOR OPERATOR) Anatomical Region Laterality Modality Upper Extremity, Wrist, Musculoskeletal RST LOS, Right Digital Radiography Musculoskeletal ARZ LOS, Muskuloskeletal FLA LOS Specimen (Source) Anatomical Collection Method Collection Time Re ceived Time Location / / Volume Laterality 04/21/2021 10:51 AM EXTRACTOR OPERATOR Impressions 04/21/2021 10:54 AM EXTRACTOR OPERATOR Impacted moderately comminuted, minimally displaced intra-articular fracture [...] variance. Remainder negative. Narrative 04/21/2021 10:54 AM EXTRACTOR OPERATOR EXAM: ??DX WRIST RIGHT 3+ VIEWS Procedure [...] Right documented in this encounter Care Teams Freelance Graphic Designer Relationship Specialty Start Date End Date Ro Norton APRN, C.N.P., PCP - General Family Medicine D.N.P. [address] [phone] documented as of this encounter
--- OUTSIDE RECORDS SUMMARY | 2022-01-17 13:09 | XMS_ITS | Encounter Summary ---
:1970 Author Organization [facility] Address [address] [place] [address] Care Team Providers Name Role Phone Ro Norton APRN, C.N.P., D.N.P. Primary Care Provider Encounter Details Date Type Department Care Team Description 10/12/2020 Orders Only [facility] Lubna Hendricks M.D. [address] [facility] [address] [place] [address] [place], [place] [phone] (Wo rk) Social History Tobacco Use Types [...] do you attend sabianist or Never 2021 restorationism services? Do you [...] Appointment Radiology Ro Norton APRN, C.N.P., D.N.P. [address] [phone] (Wo rk) 01/27/2022 Clinical Support Integrative Medicine Haris, Iv y [address] [place], [place] [phone] (Wo rk) documented as of this encounter Visit Diagnoses Not on filedocumented in this encounter Care Teams Janitor Helper Relationship Specialty Start Date End Date Ro Norton APRN, C.N.P., PCP - General Family Medicine D.N.P. [address] [phone] documented as of this encounter
--- OUTSIDE RECORDS SUMMARY | 2022-01-17 13:09 | XMS_ITS | Encounter Summary ---
:1970 Author Organization [facility] Address [address] [place] [address] Care Team Providers Name Role Phone Ro Norton APRN, C.N.P., D.N.P. Primary Care Provider Encounter Details Date Type Department Care Team Description 10/12/2020 Orders Only [facility] Pharm[facility] - Ro Servin APRN, [address] [facility] 1 C.N.P., [place] [address] [place] [address] [place] [phone] (Wo rk) Social History Tobacco [...] do you attend methodist or Never 2021 scientologist services? Do you [...] Appointment Radiology Ro Norton APRN, C.N.P., D.N.P. [address] [phone] (Amanda rk) 01/27/2022 Clinical Support Integrative Medicine Haris, Iv y [address] [place], [place] [phone] (Wo rk) documented as of this encounter Visit Diagnoses Not on filedocumented in this encounter Care Teams Vac Press Operator Relationship Specialty Start Date End Date Ro Norton APRN, C.N.P., PCP - General Family Medicine D.N.P. [address] [phone] documented as of this encounter
--- OUTSIDE RECORDS SUMMARY | 2022-01-17 13:09 | XMS_ITS | Encounter Summary ---
:1970 Author Organization [facility] Address [address] [place] [address] Care Team Providers Name Role Phone Ro Norton APRN C.N.P., D.N.P. Primary Care Provider Reason for Visit Reason Comments Med Refill Encounter Details Date Type Department Care Team Description 01/18/2021 Refill Division of Pulmonary Medicine Lubna Cleary M.D. Med Refill in [facility] costa [address] [facility] [address] [place] [address] [place] [address] [phone] Social History Tobacco Use Types Packs/Day Years [...] do you attend pentecostalism or Never 2021 anglican services? Do you [...] request for patient's Lasix Script from the [facility] (P: [phone], ). Patient was last seen by you on 09/29/2020 and has no upcoming appointments at this time. ?? Please review the teed up order and approve if appropriate. Thank you, Rafia, Pulmonary Med. Admin. Asst. ATAL ICU COORDINATOR documented in this encounter Plan of Treatment Upcoming Encounters Date Type Specialty Care Team Description 01/21/2022 Appointment Radiology Ro Norton APRN, C.N.P., D.N.P. [address] [phone] (Amanda goldman) 01/27/2022 Clinical Support Integrative Medicine Sohan Carballo y [address] [place], [place] [phone] (Amanda goldman) documented as of this encounter Visit Diagnoses Not on filedocumented in this encounter Care Teams Um Rn Relationship Specialty Start Date End Date Ro Norton APRN, C.N.P., PCP - General Family Medicine D.N.P. [address] [phone] documented as of this encounter
--- OUTSIDE RECORDS SUMMARY | 2022-01-17 13:09 | XMS_ITS | Encounter Summary ---
:1970 Author Organization [facility] Address [address] [place] [address] Care Team Providers Name Role Phone Ro Norton APRN C.N.P., D.N.P. Primary Care Provider Encounter Details Date Type Department Care Team Description 12/23/2020 Orders Only [facility] Marvin [place] D.D.S. [address] [place], [place] [phone] [place], [place] [phone] (Wo rk) Social History Tobacco Use Types [...] do you attend catholic or Never 2021 oriental orthodox services? Do [...] Appointment Radiology Ro Norton APRN, C.N.P., D.N.P. [address] [phone] (Wo rk) 01/27/2022 Clinical Support Integrative Medicine Haris, Sohan y [address] [place], [place] [phone] (Wo rk) documented as of this encounter Visit Diagnoses Not on filedocumented in this encounter Additional Health Concerns Infection Onset Date Last Indicated Resolved Time COVID19 Pending 12/16/2020 12/16/2020 01/05/2021 4:50 AM DENTAL SPECIALIST documented as of this encounter Care Teams Lamination Operator Relationship Specialty Start Date End Date Ro Norton APRN, C.N.P., PCP - General Family Medicine D.N.P. [address] [place] [phone] documented as of this encounter
--- OUTSIDE RECORDS SUMMARY | 2022-01-17 13:09 | XMS_ITS | Encounter Summary ---
:1970 Author Organization [facility] Address [address] [place] [address] Care Team Providers Name Role Phone Ro Norton APRN C.N.P., D.N.P. Primary Care Provider Reason for Visit Reason Comments Med Refill Encounter Details Date Type Department Care Team Description 01/28/2021 Refill Division of Pulmonary Medicine Lubna Cleary M.D. Med Refill in [facility] costa [address] [facility] [address] [place] [address] [place] [address] [phone] Social History Tobacco Use Types Packs/Day Years [...] do you attend jew or Never 2021 mu-ism services? Do you [...] mcg/dose Last Seen: 09/29/2020-Dr. Mcmillan-Virtual Visit Pharmacy: [facility] - [address]?? ER INSTALLER documented in this encounter Plan of Treatment Upcoming Encounters Date Type Specialty Care Team Description 01/21/2022 Appointment Radiology Ro Norton APRN, C.N.P., D.N.P. [address] [place] [phone] (Amanda goldman) 01/27/2022 Clinical Support Integrative Medicine Sohan Carballo y [address] [place], [place] [phone] (Amanda goldman) documented as of this encounter Visit Diagnoses Not on filedocumented in this encounter Care Teams Reclamation Engineer Relationship Specialty Start Date End Date Ro Norton APRN, C.N.P., PCP - General Family Medicine D.N.P. [address] [phone] documented as of this encounter
--- OUTSIDE RECORDS SUMMARY | 2022-01-17 13:09 | XMS_ITS | Encounter Summary ---
:1970 Author Organization [facility] Address [address] [place] [address] Care Team Providers Name Role Phone Ro Norton APRN C.N.Kirsty, Katelynn.N.P. Primary Care Provider Encounter Details Date Type Department Care Team Description 12/11/2020 Orders Only Department of [facility] Ro Norton, [facility] Medication Medicine, [place]anchard MORGAN C.N.PRaffy, ([facility] Sc[facility]) Clinic, in [address] [phone] Social History Tobacco Use Types Packs/Day Years [...] or relatives? How often do you attend latter day or Never 2021 denominational services? Do you belong to any clubs or No 02/25/2021 organizations such as latter day groups, unions, fraternal or athletic groups, or [...] Appointment Radiology Ro Norton APRN, C.N.P., D.N.P. [address] [phone] (Amanda rk) 01/27/2022 Clinical Support Integrative Medicine Haris, Iv y [address] [place], [place] [phone] (Amanda rk) documented as [...] Phon e Number [facility]- [address] [place] [address] [place] [address] System [address] documented in this encounter Visit Diagnoses Diagnosis High Risk Medication - Primary documented in this encounter Additional Health Concerns Infection Onset Date Last Indicated Resolved Time COVID19 Pending 12/16/2020 12/16/2020 01/05/2021 4:50 AM TRAVEL JOURNALIST documented as of this encounter Care Teams Linoleum Installer Relationship Specialty Start Date End Date Ro Norton APRN C.N.P., PCP - General Family Medicine D.N.P. [address] [place] [phone] documented as of this encounter
--- OUTSIDE RECORDS SUMMARY | 2022-01-17 13:09 | XMS_ITS | Encounter Summary ---
:1970 Author Organization [facility] Address [address] [place] [address] Care Team Providers Name Role Phone Ro Norton APRN C.N.PRaffy, D.N.P. Primary Care Provider Reason for Visit Reason Comments URI worse the last 2 days. Star ezequiel 4 days ago Appointment Request (Routine) - Closed Specialty Diagnoses / Procedures Referred By Contact Refer red To Contact Family Medicine Referral ID Status Reason Start Date Expiration Date Visits Requ ested Visits Authorized [id number] Closed 12/16/2020 12/16/2021 1 1 Encounter Details Date Type Department Care Team Description 12/17/2020 Telemedicine Department of [facility] Marco Antonio Cervantes onbarrington Obstructive Pulmonary Disease Exacerbation (HCC) (Primary Dx); Medicine, [place] T, P.A.-C. [facility], [address] [address] [place], [place] [phone] (Work) [phone] Social History Tobacco Use Types Packs/Day Years [...] do you attend religious or Never 2021 scientologist services? Do you belong to any clubs or No 02/25/2021 organizations such as religious groups, [employer], [employer] or athletic groups, or school groups? [...] technology by Marco Antonio Cervantes PA-C at [facility] to the patient in patient's home/personal device. At the beginning of visit, I introduced the myself, verified patient's date of , and discussed limitations of virtual visit verses [id number]-[id number] visit. Patient agreed to proceed on with [...] technology by Marco Antonio Cervantes PA-C at [facility] to the patient in patient's home/personal device. PATIENT EDUCATION Ready to learn, no apparent learning barriers were identified; learning preferences include listening. Explained diagnosis and treatment plan; patient/personal financial counselor expressed understanding of the content. Patient/caregiver was [...] Description 01/21/2022 Appointment Radiology Ro Norton APRN, C.N.PRaffy, D.N.P. [address] [phone] (Wo rk) 01/27/2022 Clinical Support Integrative Medicine Haris, Iv y [address] [place], [place] [phone] (Wo rk) documented as of this encounter Visit Diagnoses Diagnosis Chronic Obstructive Pulmonary Disease Ex acerbation (HCC) - Primary Viral Syndrome documented in this encounter Additional Health Concerns Infection Onset Date Last Indicated Resolved Time COVID19 Pending 12/16/2020 12/16/2020 01/05/2021 4:50 AM PERSONAL LINES ADVISOR documented as of this encounter Care Teams Casting Technician Relationship Specialty Start Date End Date Ro Norton APRN, C.N.P., PCP - General Family Medicine D.N.P. [address] [phone] documented as of this encounter
--- OUTSIDE RECORDS SUMMARY | 2022-01-17 13:09 | XMS_ITS | Encounter Summary ---
:1970 Author Organization [facility] Address [address] [place] [address] Care Team Providers Name Role Phone Ro Norton APRN C.N.P., D.N.P. Primary Care Provider Reason for Visit Reason Comments Care Coordination Encounter Details Date Type Department Care Team Description 12/07/2020 Patient Outreach Department of Cathie Phillips Care Occupational Health Physiotherapist rdination Cardiovascular Medicine R.N. in [facility] 200 [facility] [address] [place] [phone] [phone] Social History Tobacco Use Types Packs/Day Years [...] do you attend alevism or Never 2021 worship services? Do you [...] - 12/07/2020 3:36 PM CDT Addended by: CTAHIE PHILLIPS on: 12/07/2020 04:42 PM Modules accepted: Orders documented in this encounter Plan of Treatment Upcoming Encounters Date Type Specialty Care Team Description 01/21/2022 Appointment Radiology Ro Norton APRN, C.N.PRaffy, D.N.P. [address] [phone] (Wo rk) 01/27/2022 Clinical Support Integrative Medicine Haris, Iv y [address] [place], [place] [phone] (Wo rk) documented as of this encounter Visit Diagnoses Diagnosis Other Secondary Pulmonary Hypertension ( HCC) - Primary Medication Therapy Jail Not Anticoa gulant documented in this encounter Care Teams Purchasing Manager Relationship Specialty Start Date End Date Ro Norton APRN, C.N.P., PCP - General Family Medicine D.N.P. [address] [phone] documented as of this encounter
--- OUTSIDE RECORDS SUMMARY | 2022-01-17 13:09 | XMS_ITS | Encounter Summary ---
:1970 Author Organization [facility] Address [address] [place] [address] Care Team Providers Name Role Phone Ro Norton APRN C.N.P., D.N.P. Primary Care Provider Reason for Visit Reason Comments Rx Prior Authorization ambrisentan Encounter Details Date Type Department Care Team Description 11/04/2020 Clinical Department of Nya Clancy Rx Prior Communication Cardiovascular E, R.N. Authorization Medicine in [address] [place] [address] (ambrisentan) [place], [place] [address] [place] [address] [place], [place] [phone] (Work) [phone] Social History Tobacco Use Types Packs/Day Years [...] do you attend druze or Never 2021 baptist services? Do you [...] Appointment Radiology Ro Norton APRN, C.N.P., D.N.P. [address] [phone] (Wo rk) 01/27/2022 Clinical Support Integrative Medicine Haris, Iv y [address] [place], [place] [phone] (Wo rk) documented as of this encounter Visit Diagnoses Not on filedocumented in this encounter Care Teams Or First Assist Registered Nurse Relationship Specialty Start Date End Date Ro Norton APRN, C.N.P., PCP - General Family Medicine D.N.P. [address] [phone] documented as of this encounter
--- OUTSIDE RECORDS SUMMARY | 2022-01-17 13:09 | XMS_ITS | Encounter Summary ---
:1970 Author Organization [facility] Address [address] [place] [address] Care Team Providers Name Role Phone Lonny Norton APRN C.N.P., D.N.P. Primary Care Provider Reason for Visit Reason Comments Medication Question Encounter Details Date Type Department Care Team Description 02/01/2021 Clinical Communication [facility] Olivia Coles ation Question Pharmacy Gamaliel Ratliff Pharm.D., [address] [place] [address]. [address] [address] [facility] [phone] [place] [phone] Social History Tobacco Use Types Packs/Day [...] do you attend zoroastrian or Never 2021 nondenominational services? Do you [...] APRN, C.N.P., D.N.P. - 02/01/2021 1:46 PM LABORATORY COORDINATOR Addended by: LONNY NORTON on: 02/01/2021 01:46 PM Modules accepted: Orders RATORY COORDINATOR Telephone Encounter - Karine Coles Pharm.D., R.Ph. - 02/01/2021 1:29 PM CST Allison Starr is asking for a refill of her Advair. It has been taken of her medication list. Can she get a new prescription for it? Thank you, [facility] [place] RATORY COORDINATOR documented in this encounter Plan of Treatment Upcoming Encounters Date Type Specialty Care Team Description 01/21/2022 Appointment Radiology Lonny Norton APRN, C.N.P., D.N.P. [address] [phone] (Wo rk) 01/27/2022 Clinical Support Integrative Medicine Haris, Iv y 701 [facility] [place] [place] [address] (Wo rk) documented as of this encounter Visit Diagnoses Not on filedocumented in this encounter Care Teams Admissions Nurse Relationship Specialty Start Date End Date Lonny Norton APRN, C.N.P., PCP - General Family Medicine D.N.P. [address] [address] [place] [address] documented as of this encounter
--- OUTSIDE RECORDS SUMMARY | 2022-01-17 13:09 | XMS_ITS | Encounter Summary ---
:1970 Author Organization [facility] Address [address] [place] [address] Care Team Providers Name Role Phone Ro Norton APRN C.N.P., D.N.P. Primary Care Provider Encounter Details Date Type Department Care Team Description 02/03/2021 Orders Only Department of Cardiovascular Dior Mcmillan, Medicine in [facility] [address] [place] [address] [address] [place] [address] [phone] (Wo rk) Social History Tobacco Use Types [...] do you attend christian or Never 2021 confucianist services? Do you [...] Appointment Radiology Ro Norton APRN, C.N.P., D.N.P. [address] [phone] (Wo rk) 01/27/2022 Clinical Support Integrative Medicine Haris, Sohan y [address] [place], [place] [phone] (Wo rk) documented as of this encounter Visit Diagnoses Not on filedocumented in this encounter Care Teams Airport Operations Crew Member Relationship Specialty Start Date End Date Ro Norton APRN, C.N.P., PCP - General Family Medicine D.N.P. [address] [phone] documented as of this encounter
--- OUTSIDE RECORDS SUMMARY | 2022-01-17 13:09 | XMS_ITS | Encounter Summary ---
:1970 Author Organization [facility] Address [address] [place] [address] Care Team Providers Name Role Phone Ro Norton APRN, C.N.P., D.N.P. Primary Care Provider Reason for Visit Reason Comments Cough O2 at night and using neb an d inhalers yellow and light green plegem, covid test yesterday was neg , no nausea vomitting or fever. Encounter Details Date Type Department Care Team Description 03/01/2021 Telemedicine Department of [facility] Ro Norton Ch ronic Obstructive Pulmonary Disease Exacerbation (HCC) (Primary Dx); Medicine, Law MORA, C.N.P., Other Seco ndary Pulmonary Hypertension (HCC); [facility], in D.N.P. Infection Upper Respiratory [address] [phone] Social History Tobacco Use Types Packs/Day [...] do you attend nondenominational or Never 2021 buddhism services? Do you belong to any clubs or No 02/25/2021 organizations such as nondenominational groups, unions, fraKabam or athletic groups, or school groups? How [...] (HCC) Encouraged patient to follow-up with her informatics scientist as ordered. Discussed the importance of frequent [...] COVID-19 emergency, when many states had issued zrpzsod-[id number] orders. Ro Norton APRN, C.N.P., D.N.P. INUM SHEET CUTTER documented in this encounter Plan of Treatment Upcoming Encounters Date Type Specialty Care Team Description 01/21/2022 Appointment Radiology Ro Norton APRN, C.N.P., D.N.P. [address] [phone] (Wo rk) 01/27/2022 Clinical Support Integrative Medicine Sohan Carballo [address] [place], [place] [phone] (Wo rk) documented as of this encounter Visit Diagnoses Diagnosis Chronic Obstructive Pulmonary Disease Ex acerbation (HCC) - Primary Other Secondary Pulmonary Hypertension ( HCC) Infection Upper Respiratory documented in this encounter Care Teams Cpa Tax Relationship Specialty Start Date End Date Ro Norton APRN, C.N.P., PCP - General Family Medicine D.N.P. [address] [phone] documented as of this encounter
--- OUTSIDE RECORDS SUMMARY | 2022-01-17 13:09 | XMS_ITS | Encounter Summary ---
:1970 Author Organization [facility] Address [address] [place] [address] Care Team Providers Name Role Phone Ro Norton APRN C.N.P., D.N.P. Primary Care Provider Encounter Details Date Type Department Care Team Description 12/16/2020 Patient Self-Triage CONNECTED CARE Symptom Elementary Instructional Coach, Provider Social History Tobacco Use Types Packs/Day [...] do you attend mormonism or Never 2021 pentecostal services? Do you [...] Appointment Radiology Ro Norton APRN, C.N.P., D.N.P. [address] [phone] (Wo rk) 01/27/2022 Clinical Support Integrative Medicine Haris, Sohan y [address] [place], [place] [phone] (Wo rk) documented as of this encounter Visit Diagnoses Not on filedocumented in this encounter Additional Health Concerns Infection Onset Date Last Indicated Resolved Time COVID19 Pending 12/16/2020 12/16/2020 01/05/2021 4:50 AM FLOOR COVERINGS INSTALLER documented as of this encounter Care Teams Radioisotope Technician Relationship Specialty Start Date End Date Ro Norton APRN, C.N.P., PCP - General Family Medicine D.N.P. [address] [phone] documented as of this encounter
--- OUTSIDE RECORDS SUMMARY | 2022-01-17 13:09 | XMS_ITS | Encounter Summary ---
:1970 Author Organization [facility] Address [address] [place] [address] Care Team Providers Name Role Phone Ro Norton APRN C.N.P., D.N.P. Primary Care Provider Encounter Details Date Type Department Care Team Description 02/01/2021 Orders Only [facility] Olga [place] Pharm.D., R.Ph. [address] [phone] [place], [place] [phone] (Wo rk) Social History Tobacco Use [...] do you attend shinto or Never 2021 spiritism services? Do you [...] Appointment Radiology Ro Norton APRN, C.N.P., D.N.P. [address] [phone] (Wo rk) 01/27/2022 Clinical Support Integrative Medicine Haris, Iv y [address] [place], [place] [phone] (Wo rk) documented as of this encounter Visit Diagnoses Not on filedocumented in this encounter Care Teams Senior Research Consultant Relationship Specialty Start Date End Date Ro Norton APRN, C.N.P., PCP - General Family Medicine D.N.P. [address] [place] [phone] documented as of this encounter
--- OUTSIDE RECORDS SUMMARY | 2022-01-17 13:09 | XMS_ITS | Encounter Summary ---
:1970 Author Organization [facility] Address [address] [place] [address] Care Team Providers Name Role Phone Ro Norton APRN C.N.P., D.N.P. Primary Care Provider Reason for Visit Reason Comments Medication Problem Encounter Details Date Type Department Care Team Description 10/12/2020 Clinical Communication [facility] Olivia Coles ation Problem Pharmacy Gamaliel Ratliff Pharm.D., [address] [place] [address] [address] [facility] [phone] [place] [phone] Social History Tobacco Use Types Packs/Day [...] do you attend quaker or Never 2021 baptism services? Do you [...] CDT New Rx for Sildenafil sent to [facility] pharmacy [place], [place] Telephone Encounter - Lubna Mcmillan M.D. - 10/12/2020 4:34 PM CDT Ok to do sildenafil instead Telephone Encounter - Karine Coles Pharm.D., R.Ph. - 10/12/2020 4:20 PM CDT The PA for tadalafil was denied. The insurance will only cover sildenafil. Please consider this change and send an updated prescription, if appropriate, to [facility]. Thank you, [facility] [place] documented in this encounter Plan of Treatment Upcoming Encounters Date Type Specialty Care Team Description 01/21/2022 Appointment Radiology Ro Norton APRN, C.N.P., D.N.P. [address] [phone] (Wo rk) 01/27/2022 Clinical Support Integrative Medicine Haris, Iv y [address] [place], [place] [phone] (Wo rk) documented as of this encounter Visit Diagnoses Diagnosis Hypertension Pulmonary Primary (HCC) - P rimary documented in this encounter Care Teams Rivet Sorter Relationship Specialty Start Date End Date Ro Norton APRN, C.N.P., PCP - General Family Medicine D.N.P. [address] [phone] documented as of this encounter
--- OUTSIDE RECORDS SUMMARY | 2022-01-17 13:09 | XMS_ITS | Encounter Summary ---
:1970 Author Organization [facility] Address [address] [place] [address] Care Team Providers Name Role Phone Ro Norton APRN C.N.P., D.N.P. Primary Care Provider Reason for Visit Reason Comments Med Refill Encounter Details Date Type Department Care Team Description 03/09/2021 Clinical Communication [facility] Karine Coles Med Refill [place] A, Pharm.D., [address] [place] [address] R.Ph. [place] [phone] [facility] [phone] [place] [phone] Social History Tobacco Use Types Packs/Day Years [...] do you attend presybeterian or Never 2021 catholic services? Do you [...] - 03/09/2021 2:17 PM CST Refill sent. ON RAILS WEB DEVELOPER Telephone Encounter - Karine Coles Pharm.D., R.Ph. - 03/09/2021 2:12 PM CST Allison is requesting a refill of Duonebs. Thank you, [facility] [place] ON RA[employer]S WEB DEVELOPER documented in this encounter Plan of Treatment Upcoming Encounters Date Type Specialty Care Team Description 01/21/2022 Appointment Radiology Ro Norton APRN, C.N.P., D.N.P. [address] [phone] (Wo rk) 01/27/2022 Clinical Support Integrative Medicine Haris, Iv y [address] [place], [place] [phone] (Wo rk) documented as of this encounter Visit Diagnoses Not on filedocumented in this encounter Care Teams Closing Manager Relationship Specialty Start Date End Date Ro Norton APRN, C.N.P., PCP - General Family Medicine D.N.P. [address] [phone] documented as of this encounter
--- OUTSIDE RECORDS SUMMARY | 2022-01-17 13:09 | XMS_ITS | Encounter Summary ---
:1970 Author Organization [facility] Address [address] [place] [address] Care Team Providers Name Role Phone Ro Norton APRN C.N.Kirsty, D.N.P. Primary Care Provider Encounter Details Date Type Department Care Team Description 12/11/2020 Hospital Encounter Department of Ro Norton is Medication Laboratory Medicine MORGAN Ansari, in [place] C.N.Kirsty, D.N.P. [address] [place], [address] [place] [phone] Social History Tobacco Use Types Packs/Day Years [...] do you attend temple or Never 2021 faith services? Do you [...] Appointment Radiology Ro Norton APRN, C.N.P., D.N.P. [address] [phone] (Wo rk) 01/27/2022 Clinical Support Integrative Medicine Haris, Iv y [address] [place], [place] [phone] (Wo rk) documented as [...] Organization Address City/State/ZIP Code Phon e Number [facility]- [address] [place] [address] [place] [address] System in [address] documented in this encounter Visit Diagnoses Diagnosis High Risk Medication documented in this encounter Care Teams Reagent Tender Relationship Specialty Start Date End Date Ro Norton APRN, C.N.P., PCP - General Family Medicine D.N.P. [address] [place] [phone] documented as of this encounter
--- OUTSIDE RECORDS SUMMARY | 2022-01-17 13:09 | XMS_ITS | Encounter Summary ---
:1970 Author Organization [facility] Address [address] [place] [address] Care Team Providers Name Role Phone Ro Norton APRN C.N.P., D.N.P. Primary Care Provider Reason for Visit Reason Comments Care Coordination Encounter Details Date Type Department Care Team Description 01/21/2021 Patient Outreach Department of Miranda Phillips Care Optical Glass Sawyer rdination Cardiovascular Medicine R.N. in [facility] 200 [facility] [address] [place] [address] [phone] Social History Tobacco Use Types Packs/Day Years [...] do you attend jainism or Never 2021 congregational services? Do you [...] Appointment Radiology Ro Norton APRN, C.N.P., D.N.P. [address] [phone] (Wo rk) 01/27/2022 Clinical Support Integrative Medicine Haris, Sohan y [address] [place], [place] [phone] (Wo rk) documented as of this encounter Visit Diagnoses Not on filedocumented in this encounter Care Teams Crop Research Scientist Relationship Specialty Start Date End Date Ro Norton APRN, C.N.P., PCP - General Family Medicine D.N.P. [address] [phone] documented as of this encounter
--- OUTSIDE RECORDS SUMMARY | 2022-01-17 13:09 | XMS_ITS | Encounter Summary ---
:1970 Author Organization [facility] Address [address] [place] [address] Care Team Providers Name Role Phone Ro Norton APRN C.N.P., D.N.P. Primary Care Provider Reason for Visit Reason Comments Rx Prior Authorization [place] DENIED - TADALAFIL 20 MG TABLET Encounter Details Date Type Department Care Team Description 10/12/2020 Clinical Division of [facility], Rx Prior Communication Pulmonary Medicine Joy Amaya Authorization (PA in [place], [address] [facility] DENIED - TADALAFIL 20 [place], [place] MG TABLET) [address] [facility] [address] [place], [place] [phone] (Work) [phone] Social History Tobacco Use Types Packs/Day Years [...] do you attend uatsdin or Never 2021 oriental orthodox services? Do you belong to any clubs or No 02/25/2021 organizations such as uatsdin groups, unions, [employer] or athletic groups, or school groups? How [...] Appointment Radiology Ro Norton APRN, C.N.P., D.N.P. [address] [phone] (Amanda goldman) 01/27/2022 Clinical Support Integrative Medicine Haris, Iv y [address] [place], [place] [phone] (Amanda goldman) documented as of this encounter Visit Diagnoses Not on filedocumented in this encounter Care Teams Golf Club Head Inspector Relationship Specialty Start Date End Date Ro Norton APRN, C.N.P., PCP - General Family Medicine D.N.P. [address] [phone] documented as of this encounter
--- OUTSIDE RECORDS SUMMARY | 2022-01-17 13:09 | XMS_ITS | Encounter Summary ---
:1970 Author Organization [facility] Address [address] [place] [address] Care Team Providers Name Role Phone Ro Norton APRN, C.N.P., D.N.P. Primary Care Provider Encounter Details Date Type Department Care Team Description 10/14/2020 Orders Only Pharmacy Prior Auth [place] Ro Norton APRN, C.N.P., D.N.P. [address] [place] [phone] (Wo rk) Social History Tobacco Use [...] many times do you More than three dveon es a week 02/25/2021 talk on the phone with family, friends, or neighbors? How often do you get together with friends More than three t imes a week 02/25/2021 or relatives? How often do you attend orthodoxy or Never 2021 sabianist services? Do you [...] Appointment Radiology Ro Norton APRN, C.N.P., D.N.P. [address] [phone] (Wo rk) 01/27/2022 Clinical Support Integrative Medicine Haris, Sohan y [address] [place], [place] [phone] (Wo rk) documented as of this encounter Visit Diagnoses Not on filedocumented in this encounter Care Teams Barrel Raiser Relationship Specialty Start Date End Date Ro Norton APRN, C.N.P., PCP - General Family Medicine D.N.P. [address] [phone] documented as of this encounter
--- OUTSIDE RECORDS SUMMARY | 2022-01-17 13:09 | XMS_ITS | Encounter Summary ---
:1970 Author Organization [facility] Address [address] [place] [address] Care Team Providers Name Role Phone Ro Norton APRN C.N.P., D.N.P. Primary Care Provider Reason for Visit Reason Comments Opsumit Denial Encounter Details Date Type Department Care Team Description 10/15/2020 Clinical Communication Division of Lubna Mcmillan Pulmonary Medicine Michael Ansari in [place], [address] [place] [address] [place] [address] [place], [place] [phone] (Work) [phone] Social History Tobacco Use Types Packs/Day Years [...] do you attend bahai or Never 2021 jehovah's witness services? Do [...] faxed this letter to pulmonary hypertension at 9-6100 and scanned in this document to the patient's chart. Thank you, Rafia, Pulmonary Med. Admin. Asst. documented in this encounter Plan of Treatment Upcoming Encounters Date Type Specialty Care Team Description 01/21/2022 Appointment Radiology Ro Norton APRN, C.N.P., D.N.P. [address] [phone] (Wo rk) 01/27/2022 Clinical Support Integrative Medicine Haris, Iv y [address] [place], [place] [phone] (Wo rk) documented as of this encounter Visit Diagnoses Not on filedocumented in this encounter Care Teams Stock Clerk Self Service Store Relationship Specialty Start Date End Date Ro Norton APRN, C.N.P., PCP - General Family Medicine D.N.P. [address] [phone] documented as of this encounter
--- OUTSIDE RECORDS SUMMARY | 2022-01-17 13:09 | XMS_ITS | Encounter Summary ---
:1970 Author Organization [facility] Address [address] [place] [address] Care Team Providers Name Role Phone Ro Norton APRN C.N.PRaffy, D.N.P. Primary Care Provider Reason for Visit Reason Comments Med Refill Encounter Details Date Type Department Care Team Description 11/24/2020 Refill Department of Family Medicine, Ro Norton APRN, Med Refill [facility], in [place] C .N.PRaffy, D.N.P. [address] [phone] (Wo rk) Social History Tobacco Use Types [...] do you attend latter-day or Never 2021 holiness services? Do you [...] Appointment Radiology Ro Norton APRN, C.N.P., D.N.P. [address] [phone] (Amanda goldman) 01/27/2022 Clinical Support Integrative Medicine Haris, Iv y [address] [place], [place] [phone] (Wo rk) documented as of this encounter Visit Diagnoses Not on filedocumented in this encounter Care Teams Spar Cap Beveler Relationship Specialty Start Date End Date Ro Norton APRN, C.N.P., PCP - General Family Medicine D.N.P. [address] [phone] documented as of this encounter
--- OUTSIDE RECORDS SUMMARY | 2022-01-17 13:09 | XMS_ITS | Encounter Summary ---
:1970 Author Organization [facility] Address [address] [place] [address] Care Team Providers Name Role Phone Ro Norton APRN C.N.P., D.N.P. Primary Care Provider Reason for Visit Reason Comments Follow-up Encounter Details Date Type Department Care Team Description 12/23/2020 Patient Outreach Department of Cathie Phillips Follow-brennan p Cardiovascular Medicine in [place], [place] [address] [facility] [address] [place] [address] [phone] Social History Tobacco Use Types Packs/Day Years [...] you attend latter day or Never 2021 worship services? Do you [...] Labs are planned for 01/08/2021 at the [facility]. testing is no longer needed. In collaboration with Dr. Wren a lab order was completedper the [facility] lab guidelines. She was reminded to obtain [...] Team Description 01/21/2022 Appointment Radiology Ro Norton APRN C.N.PRaffy, D.N.P. [address] [phone] (Wo rk) 01/27/2022 Clinical Support Integrative Medicine Haris, Iv y [address] [place], [place] [phone] (Wo rk) documented as of this encounter Visit Diagnoses Diagnosis Other Secondary Pulmonary Hypertension ( HCC) - Primary Medication Therapy Long-Term Not Anticoa gulant documented in this encounter Additional Health Concerns Infection Onset Date Last Indicated Resolved Time COVID19 Pending 12/16/2020 12/16/2020 01/05/2021 4:50 AM SPECIAL EDUCATION TEACHERS documented as of this encounter Care Teams Dobby Loom Weaver Relationship Specialty Start Date End Date Ro Norton APRN, C.N.P., PCP - General Family Medicine D.N.P. [address] [phone] documented as of this encounter
--- OUTSIDE RECORDS SUMMARY | 2022-01-17 13:09 | XMS_ITS | Encounter Summary ---
:1970 Author Organization [facility] Address [address] [place] [address] Care Team Providers Name Role Phone Ro Norton APRN C.N.PRaffy, D.N.P. Primary Care Provider Reason for Visit Reason Comments URI Encounter Details Date Type Department Care Team Description 02/25/2021 Telemedicine [facility] Express Nickie Zamora, Infe ction Upper Respiratory (Primary Dx); Care at [facility] MORGAN C.N.P., Chronic Obstructive Pulmonar y Disease Without Exacerbation (HCC) [address] TIMO Pace.N.P. [place], [place] [address] [facility] [address] [place], [place] [phone] Social History Tobacco Use Types Packs/Day Years [...] do you attend advent or Never 2021 anabaptist services? Do you [...] by Nickie Zamora APRN, C.N.P., D.N.P. in [facility] to the patient's home. HISTORY OF PRESENT [...] #2 Chronic Obstructive Pulmonary Disease Without Exacerbation ([facility]) Informed patient that due to the chronicity of her problems coupled with a second acute illness in the past 3 months, she is better served by discussing her plan of care with a member of her primary care team. Patient states that she was unable to get a video visit in [place], therefore she chosethis express care option. Unfortunately [...] file for this visit. Patient has a [facility] online portal account, can view medication list electronically. ?? Ready to learn, no apparent learning barriers were identified; learning preferences include listening. Explained diagnosis and treatment plan; patient/child/caregiver expressed understanding of the content; and is in agreement with the plan above. I personally spent a total of 20 minutes in ytq-akht-fo-face time performing a review of the record and/or discussion with the patient/caregiver as described above. FINISHER documented in this encounter Plan of Treatment Upcoming Encounters Date Type Specialty Care Team Description 01/21/2022 Appointment Radiology Ro Norton APRN, C.N.P., D.N.P. [address] [phone] (Wo rk) 01/27/2022 Clinical Support Integrative Medicine Haris, Iv y [address] [place], [place] [phone] (Wo rk) documented as of this encounter Visit Diagnoses Diagnosis Infection Upper Respiratory - Primary Chronic Obstructive Pulmonary Disease Wi thout Exacerbation (HCC) documented in this encounter Care Teams Internal Affairs Commander Relationship Specialty Start Date End Date Ro Norton APRN, C.N.P., PCP - General Family Medicine D.N.P. [address] [place] [phone] documented as of this encounter
--- OUTSIDE RECORDS SUMMARY | 2022-01-17 13:09 | XMS_ITS | Encounter Summary ---
:1970 Author Organization [facility] Address [address] [place] [address] Care Team Providers Name Role Phone Ro Norton APRN C.N.PRaffy, D.N.P. Primary Care Provider Reason for Visit Reason Onset Date Comments Testing For Upper Respiratory Virus Symptoms 12/16/2020 Encounter Details Date Type Department Care Team Description 12/16/2020 External Outreach Department of [facility] Emilie Cervantes Contact With And Medicine, Wise Amairani Liao (Suspected) Exposure Clinic, in [address] [facility] (Primary [place], [place] Dx) 701 [facility] [address] [place], [place] [phone] (Work) [phone] Social History Tobacco Use Types Packs/Day Years [...] do you attend episcopal or Never 2021 christianity services? Do you [...] Appointment Radiology Ro Norton APRN, C.N.P., D.N.P. [address] [phone] (Amanda goldman) 01/27/2022 Clinical Support Integrative Medicine Sohan Carballo y [address] [place], [place] [phone] (Amanda goldman) documented as of this encounter Visit Diagnoses Diagnosis Contact With And (Suspected) Exposure To COVID-19 - Primary documented in this encounter Additional Health Concerns Infection Onset Date Last Indicated Resolved Time COVID19 Pending 12/16/2020 12/16/2020 01/05/2021 4:50 AM COOPERATIVE MANAGER documented as of this encounter Care Teams Apartment Community Assistant Manager Relationship Specialty Start Date End Date Ro Norton APRN, C.N.P., PCP - General Family Medicine D.N.P. [address] [phone] documented as of this encounter
--- OUTSIDE RECORDS SUMMARY | 2022-01-17 13:09 | XMS_ITS | Encounter Summary ---
:1970 Author Organization [facility] Address [address] [place] [address] Care Team Providers Name Role Phone Ro Norton APRN C.N.P., D.N.P. Primary Care Provider Reason for Visit Reason Comments Care Coordination Encounter Details Date Type Department Care Team Description 01/25/2021 Patient Outreach Department of Miranda Phillips Care Property Claim Rep rdination Cardiovascular Medicine R.N. in [facility] 200 [facility] [address] [place] [address] [phone] Social History Tobacco Use Types Packs/Day Years [...] do you attend religious or Never 2021 oriental orthodox services? Do [...] labs to be drawn 02/15/2021 at the [facility]. Once we have results we can review to see if she is ready to increase to 10 mg daily. Labs due 02/15/2021 Disposition/Recommendation: self-care is appropriate at this time, patient encouraged to call back with questions. Information/Education: patient/caller able to teach back. Caller agreeable to plan of care: yes. The following references were used: nursing clinical judgement. CH LANGUAGE PATHOLOGIST ASSISTANT documented in this encounter Plan of Treatment Upcoming Encounters Date Type Specialty Care Team Description 01/21/2022 Appointment Radiology Ro Norton APRN, C.N.P., D.N.P. [address] [address] [place] [address] (Wo rk) 01/27/2022 Clinical Support Integrative Medicine Sohan Carballo y 701 [facility] Carlos [place]to [place], [place] [phone] (Wo rk) Scheduled Orders [...] Hypertension ( HCC) - Primary Medication Therapy Ore Miner Blasting Not Anticoa gulant documented in this encounter Care Teams Line Fisher Relationship Specialty Start Date End Date Ro Norton APRN, C.N.P., PCP - General Family Medicine D.N.P. [address] [phone] documented as of this encounter
--- OUTSIDE RECORDS SUMMARY | 2022-01-17 13:09 | XMS_ITS | Encounter Summary ---
:1970 Author Organization [facility] Address [address] [place] [address] Care Team Providers Name Role Phone Ro Norton APRN C.N.P., D.N.P. Primary Care Provider Reason for Visit Reason Comments Tadalafil Denial Encounter Details Date Type Department Care Team Description 10/15/2020 Clinical Communication Division of Lubna Mcmillan Pulmonary Medicine Michael Ansari in [place], [address] [place] [address] [place] [address] [place], [place] [phone] (Work) [phone] Social History Tobacco Use Types Packs/Day Years [...] faxed this letter to pulmonary hypertension at 3-5506 and scanned in this document to the patient's chart. Thank you, Rafia Pulmonary Med. Admin. Asst. documented in this encounter Plan of Treatment Upcoming Encounters Date Type Specialty Care Team Description 01/21/2022 Appointment Radiology Ro Norton APRN, C.N.P., D.N.P. [address] [phone] (Amanda goldman) 01/27/2022 Clinical Support Integrative Medicine Sohan Carballo y [address] [place] [phone] (Amanda goldman) documented as of this encounter Visit Diagnoses Not on filedocumented in this encounter Care Teams Brick Stacker Relationship Specialty Start Date End Date Ro Norton APRN, C.N.P., PCP - General Family Medicine D.N.P. [address] [phone] documented as of this encounter
--- OUTSIDE RECORDS SUMMARY | 2022-01-17 13:09 | XMS_ITS | Encounter Summary ---
:1970 Author Organization [facility] Address [address] [place] [address] Care Team Providers Name Role Phone Ro Norton APRN C.N.P., D.N.P. Primary Care Provider Encounter Details Date Type Department Care Team Description 12/11/2020 Hospital Encounter Department of Lubna Mcmillan Secondary Pulmonary Hypertension (HCC); Laboratory Medicine Michael Ansari Medication Therapy Alf Not Anticoa gulant in [place] [phone] BL [phone] [place], [place] (Work) [phone] Social History Tobacco Use [...] do you attend uatsdin or Never 2021 orthodox services? Do you [...] Appointment Radiology Ro Norton APRN, C.N.P., D.N.P. [address] [phone] (Amanda rk) 01/27/2022 Clinical Support Integrative Medicine Haris, Iv y [address] [place], [place] [phone] (Wo rk) documented as of this encounter Visit Diagnoses Diagnosis Other Secondary Pulmonary Hypertension ( HCC) Medication Therapy Skin Diving Teacher Not Anticoa gulant documented in this encounter Care Teams Housekeeper Head Relationship Specialty Start Date End Date Ro Norton APRN, C.N.P., PCP - General Family Medicine D.N.P. [address] [phone] documented as of this encounter
--- OUTSIDE RECORDS SUMMARY | 2022-01-17 13:10 | XMS_ITS | Encounter Summary ---
:1970 Author Organization [facility] Address [address] [place] [address] Care Team Providers Name Role Phone Ro Norton APRN, C.N.P., D.N.P. Primary Care Provider Encounter Details Date Type Department Care Team Description 09/10/2020 Orders Only [facility] - Ro Servin APRN, [address] [facility] 1 C.N.P., D.[place] [address] [place] [address] [place] [phone] (Wo rk) Social History Tobacco [...] Appointment Radiology Ro Norton APRN, C.N.P., D.N.P. [address] [phone] (Amanda rk) 01/27/2022 Clinical Support Integrative Medicine Haris, Iv y [address] [place], [place] [phone] (Wo rk) documented as of this encounter Visit Diagnoses Not on filedocumented in this encounter Care Teams Medical Receptionist Medical Assistant Relationship Specialty Start Date End Date Ro Norton APRN, C.N.P., PCP - General Family Medicine D.N.P. [address] [phone] documented as of this encounter
--- OUTSIDE RECORDS SUMMARY | 2022-01-17 13:10 | XMS_ITS | Encounter Summary ---
:1970 Author Organization [facility] Address [address] [place] [address] Care Team Providers Name Role Phone Ro Norton APRN C.N.P., D.N.P. Primary Care Provider Encounter Details Date Type Department Care Team Description 08/27/2020 Diagnostic Division of Pulmonary Lubna Mcmillan, Other Secondary Pulmonary Hypertension (HCC); Medicine in [place] Shortness Of Breath [place] [address] [facility] [address] [place] [phone] [phone] Social History Tobacco Use Types Packs/Day Years [...] do you attend catholic or Never 2021 congregation services? Do you [...] Appointment Radiology Ro Norton APRN, C.N.P., D.N.P. [address] [phone] (Wo rk) 01/27/2022 Clinical Support Integrative Medicine Haris, Sohan y [address] [place] [phone] (Wo rk) documented as of this encounter Procedures Procedure Name Priority Date/Time Associated Diagnosis Comme nts OXYGEN TITRATION Routine 08/27/2020 8:39 AM Other Secondary Re sults for this CDT Pulmonary Hypertension proce dure are in (HCC) the results Shortness Of Breath section. documented in this encounter Results Oxygen Titration (08/27/2020 8:39 AM CDT) [facility] gist Method Time Signature [1] Inspired [...] documented as of this encounter Care Teams Linter Saw Sharpener Relationship Specialty Start Date End Date Ro Norton APRN, C.N.P., PCP - General Family Medicine D.N.P. [address] [phone] documented as of this encounter
--- OUTSIDE RECORDS SUMMARY | 2022-01-17 13:10 | XMS_ITS | Encounter Summary ---
:1970 Author Organization [facility] Address [address] [place] [address] Care Team Providers Name Role Phone Ro Norton APRN, C.N.P., D.N.P. Primary Care Provider Encounter Details Date Type Department Care Team Description 10/06/2020 Orders Only [facility], Screening Mammogram Breast Cancer; MORGAN, C.N.P., Screening Lipi d D.N.P. [address] [phone] Social History Tobacco Use Types Packs/Day Years [...] or relatives? How often do you attend restorationism or Never 2021 faith services? Do you belong to any clubs or No 02/25/2021 organizations such as restorationism groups, unions, fraternal or athletic groups, or [...] Appointment Radiology Ro Norton APRN, C.N.P., D.N.P. [address] [place] [phone] (Wo rk) 01/27/2022 Clinical Support Integrative Medicine Sohan Carballo y [address] [place], [place] [phone] (Wo rk) documented as of this encounter Visit Diagnoses Diagnosis Screening Mammogram Breast Cancer Screening Lipid documented in this encounter Care Teams Airplane Pilot Photogrammetry Relationship Specialty Start Date End Date Ro Norton APRN, C.N.P., PCP - General Family Medicine D.N.P. [address] [place] [phone] documented as of this encounter
--- OUTSIDE RECORDS SUMMARY | 2022-01-17 13:10 | XMS_ITS | Encounter Summary ---
:1970 Author Organization [facility] Address [address] [place] [address] Care Team Providers Name Role Phone Ro [...] Expiration Date Visits Requ ested Visits Authorized [id number] 1 1 Encounter Details Date Type Department Care Team Description 09/29/2020 Hospital Encounter Division of [facility] Lubna Ansari M.D. Pulmonary Diseases in [place] [address] Hypertension (HCC) [place], [place] [address] [address] [place], [place] [phone] [address] (Work) [phone] Social History Tobacco Use Types Packs/Day Years [...] do you attend judaism or Never 2021 jainism services? Do you belong to any clubs or No 02/25/2021 organizations such as judaism groups, unions, fraBIW Technologies or athletic groups, or school groups? [...] through Care Everywhere.Care Following Your Catheter Procedure (Citizen Of [place])documented in this encounter Medications at Time of [...] instructions were reviewed in detail as per [id number], with patient and family; they verbalized understanding. Follow up appointment is arranged. Patient was dismissed when discharge criteria was met, accompanied by daughter. All questions answered. documented in this encounter Plan of Treatment Upcoming Encounters Date Type Specialty Care Team Description 01/21/2022 Appointment Radiology Ro Norton APRN, C.N.P., D.N.P. [address] [phone] (Wo rk) 01/27/2022 Clinical Support Integrative Medicine Haris, Iv y [address] [place], [place] [phone] (Wo rk) documented as [...] injection documented in this encounter Care Teams Filter Operator Relationship Specialty Start Date End Date Ro Norton APRN, C.N.P., PCP - General Family Medicine D.N.P. [address] [phone] documented as of this encounter
--- OUTSIDE RECORDS SUMMARY | 2022-01-17 13:10 | XMS_ITS | Encounter Summary ---
:1970 Author Organization [facility] Address [address] [place] [address] Care Team Providers Name Role Phone Ro Norton APRN C.N.PRaffy, D.N.P. Primary Care Provider Reason for Visit Outpatient (Routine) - Closed Specialty Diagnoses / Procedures Referred By Contact Refer red To Contact Cardiovascular Disease Lubna Mcmillan [place] [address] [place] M.D. [address] [place] [phone] Referral ID Status Reason Start Date Expiration Date Visits Requ ested Visits Authorized [id number] Closed 09/23/2020 09/23/2021 1 1 Encounter Details Date Type Department Care Team Description 09/28/2020 Virtual Visit Department of Lubna Mcmillan M.D. [address] [place] [phone] Shortness Of Breath Cardiovascular Medicine Kirsten Barton, R.NRaffy [address] [place] [phone] in [facility] [address] [place] [phone] Social History Tobacco Use Types Packs/Day [...] do you attend spiritism or Never 2021 faith services? Do you [...] pm. 5. Stay within 100 miles of [place] overnight 6. Take all medications as instructed 7. Call the [facility] Service Line ([phone]) the evening before the procedure between the [...] Appointment Radiology Ro Norton APRN, C.N.P., D.N.P. [address] [phone] (Amanda goldman) 01/27/2022 Clinical Support Integrative Medicine Haris, Iv y [address] [place], [place] [phone] (Wo rk) documented as of this encounter Visit Diagnoses Diagnosis Shortness Of Breath documented in this encounter Care Teams Registered Route Associate Relationship Specialty Start Date End Date Ro Norton APRN, C.N.P., PCP - General Family Medicine D.N.P. [address] [phone] documented as of this encounter
--- OUTSIDE RECORDS SUMMARY | 2022-01-17 13:10 | XMS_ITS | Encounter Summary ---
:1970 Author Organization [facility] Address [address] [place] [address] Care Team Providers Name Role Phone Ro Norton APRN C.N.P., D.N.P. Primary Care Provider Reason for Visit Reason Comments COVID Inquiry Encounter Details Date Type Department Care Team Description 09/07/2020 Clinical Communication Central Appointment [facility] Office in [address] [address] Social History Tobacco Use Types [...] do you attend gnosticist or Never 2021 baptism services? Do you [...] Appointment Radiology Ro Norton APRN, C.N.P., D.N.P. [address] [phone] (Wo rk) 01/27/2022 Clinical Support Integrative Medicine Haris, Iv y [address] [place], [place] [phone] (Wo rk) documented as of this encounter Visit Diagnoses Not on filedocumented in this encounter Care Teams Presto Log Operator Relationship Specialty Start Date End Date Ro Norton APRN, C.N.P., PCP - General Family Medicine D.N.P. [address] [phone] documented as of this encounter
--- OUTSIDE RECORDS SUMMARY | 2022-01-17 13:10 | XMS_ITS | Encounter Summary ---
:1970 Author Organization [facility] Address [address] [place] [address] Care Team Providers Name Role Phone Ro Norton APRN, C.N.P., D.N.P. Primary Care Provider Encounter Details Date Type Department Care Team Description 09/02/2020 Orders Only Pharmacy Prior Auth RO Ro Norton APRN, C.N.P., D.N.P. [address] [place] [phone] (Wo rk) Social History Tobacco Use [...] do you attend rastafarian or Never 2021 rastafari services? Do you belong to any clubs [...] Appointment Radiology Ro Norton APRN, C.N.P., D.N.P. [address] [phone] (Wo rk) 01/27/2022 Clinical Support Integrative Medicine Haris, Sohan y [address] [place], [place] [phone] (Wo rk) documented as of this encounter Visit Diagnoses Not on filedocumented in this encounter Care Teams Career Development Director Relationship Specialty Start Date End Date Ro Norton APRN, C.N.P., PCP - General Family Medicine D.N.P. [address] [phone] documented as of this encounter
--- OUTSIDE RECORDS SUMMARY | 2022-01-17 13:10 | XMS_ITS | Encounter Summary ---
:1970 Author Organization [facility] Address [address] [place] [address] Care Team Providers Name Role Phone Ro Norton APRN, C.N.P., D.N.P. Primary Care Provider Encounter Details Date Type Department Care Team Description 09/14/2020 Orders Only Pharmacy Prior Auth Dawson Manuel [phone] Social History Tobacco Use Types Packs/Day Years [...] do you attend temple or Never 2021 anabaptism services? Do you [...] Appointment Radiology Ro Norton APRN, C.N.P., D.N.P. [address] [phone] (Wo rk) 01/27/2022 Clinical Support Integrative Medicine Haris, Iv y [address] [place], [place] [phone] (Wo rk) documented as of this encounter Visit Diagnoses Not on filedocumented in this encounter Additional Health Concerns Infection Onset Date Last Indicated Resolved Time COVID19 Pending 09/25/2020 09/25/2020 09/25/2020 11:14 PM CDT documented as of this encounter Care Teams Orthodontic Laboratory Technician Relationship Specialty Start Date End Date Ro Norton APRN, C.N.P., PCP - General Family Medicine D.N.P. [address] [phone] documented as of this encounter
--- OUTSIDE RECORDS SUMMARY | 2022-01-17 13:10 | XMS_ITS | Encounter Summary ---
:1970 Author Organization [facility] Address [address] [place] [address] Care Team Providers Name Role Phone Ro Norton APRN C.N.PRaffy, D.N.P. Primary Care Provider Reason for Visit Appointment Request (Routine) - Closed Specialty Diagnoses / Procedures Referred By Contact Refer red To Contact Referral ID Status Reason Start Date Expiration Date Visits Requ ested Visits Authorized [id number] Closed 08/07/2020 08/07/2021 1 1 Encounter Details Date Type Department Care Team Description 08/31/2020 Office Visit Department of Lubna Mcmillan Cardiovascular Medicine Michael Ansari Pulmonary in [facility] rotary driller helper [address] [facility] Hypertension (HCC) [address] [place], [place] (Primary Dx) [place] [phone] [phone] Social History Tobacco Use Types Packs/Day Years [...] do you attend caodaism or Never 2021 mu-ism services? Do you [...] 8. Agitated saline contrast administered. 9. No dngkw-yi-vjok shunt at atrial level at rest or [...] Description 01/21/2022 Appointment Radiology Ro Norton APRN, C.N.Taylor., D.N.P. [address] [phone] (Amanda goldman) 01/27/2022 Clinical Support Integrative Medicine Haris, Iv y [address] [place], [place] [phone] (Amanda goldman) documented as of this encounter Visit Diagnoses Diagnosis Other Secondary Pulmonary Hypertension ( HCC) - Primary documented in this encounter Care Teams Airplane Pilot Photogrammetry Relationship Specialty Start Date End Date Ro Norton APRN, C.N.P., PCP - General Family Medicine D.N.P. [address] [phone] documented as of this encounter
--- OUTSIDE RECORDS SUMMARY | 2022-01-17 13:10 | XMS_ITS | Encounter Summary ---
:1970 Author Organization [facility] Address [address] [place] [address] Care Team Providers Name Role Phone Ro Norton APRN C.N.P., D.N.P. Primary Care Provider Encounter Details Date Type Department Care Team Description 10/03/2020 Orders Only [facility] Pharm[facility] Olga [place] Pharm.D., R.Ph. [address] [phone] [place], [place] [phone] (Wo rk) Social History Tobacco Use [...] do you attend evangelical or Never 2021 yazidism services? Do you [...] Appointment Radiology Ro Norton APRN, C.N.P., D.N.P. [address] [phone] (Wo rk) 01/27/2022 Clinical Support Integrative Medicine Haris, Iv y [address] [place], [place] [phone] (Wo rk) documented as of this encounter Visit Diagnoses Not on filedocumented in this encounter Care Teams Procurement Assistant Relationship Specialty Start Date End Date Ro Norton APRN, C.N.P., PCP - General Family Medicine D.N.P. [address] [place] [phone] documented as of this encounter
--- OUTSIDE RECORDS SUMMARY | 2022-01-17 13:10 | XMS_ITS | Encounter Summary ---
:1970 Author Organization [facility] Address [address] [place] [address] Care Team Providers Name Role Phone Ro Norton APRN, C.N.P., D.N.P. Primary Care Provider Encounter Details Date Type Department Care Team Description 10/12/2020 Orders Only Pharmacy Prior Auth Dawson Manuel [phone] Social History Tobacco Use Types Packs/Day Years [...] do you attend hindu or Never 2021 restorationist services? Do you [...] Appointment Radiology Ro Norton APRN, C.N.P., D.N.P. [address] [phone] (Wo rk) 01/27/2022 Clinical Support Integrative Medicine Haris, Iv y [address] [place], [place] [phone] (Wo rk) documented as of this encounter Visit Diagnoses Not on filedocumented in this encounter Care Teams M48/M60 Tank Driver Relationship Specialty Start Date End Date Ro Norton APRN, C.N.P., PCP - General Family Medicine D.N.P. [address] [phone] documented as of this encounter
--- OUTSIDE RECORDS SUMMARY | 2022-01-17 13:10 | XMS_ITS | Encounter Summary ---
:1970 Author Organization [facility] Address [address] [place] [address] Care Team Providers Name Role Phone Ro Norton APRN C.N.PRaffy, D.N.P. Primary Care Provider Reason for Referral Outpatient (Routine) - Closed Specialty Diagnoses / Procedures Referred By Contact Refer red To Contact Cardiovascular Disease Lubna Mcmillan [place] [address] [place] M.D. [address] [place] [address] Referral ID Status Reason Start Date Expiration Date Visits Requ ested Visits Authorized [id number] Closed 09/23/2020 09/23/2021 1 1 Encounter Details Date Type Department Care Team Description 09/23/2020 Orders Only Department of Lubna Mcmillan Cardiovascular Medicine Michael Ansari Pulmonary Hypertension in [facility] quotation clerk 200 [facility] (HCC) (Primary Dx) [address] [place] [address] [phone] Social History Tobacco Use Types Packs/Day Years [...] do you attend presybeterian or Never 2021 sabianist services? Do you belong to any clubs or No 02/25/2021 organizations such as presybeterian groups, unions, fraEashmart or athletic groups, or school groups? How [...] Radiology Ro Norton APRN, C.N.P., D.N.P. [address] [phone] (Wo rk) 01/27/2022 Clinical Support Integrative Medicine Sohan Carballo [address] [place], [place] [phone] (Wo rk) Scheduled Referrals Name Type Priority Associated Order Schedule Diagnoses Cardiovascular Disease Outpatient Referral Routine Expected: nurse visit (clinic) 08/04/2 021 (Approximate), Expires: 09/24/2023 documented as of this encounter Visit Diagnoses Diagnosis Other Secondary Pulmonary Hypertension ( HCC) - Primary documented in this encounter Care Teams A R Specialist Relationship Specialty Start Date End Date Ro Norton APRN, C.N.P., PCP - General Family Medicine D.N.P. [address] [phone] documented as of this encounter
--- OUTSIDE RECORDS SUMMARY | 2022-01-17 13:10 | XMS_ITS | Encounter Summary ---
:1970 Author Organization [facility] Address [address] [place] [address] Care Team Providers Name Role Phone Ro Norton APRN C.N.P., D.N.P. Primary Care Provider Encounter Details Date Type Department Care Team Description 09/21/2020 Clinical Communication Department of Lubna Mcmillan Cardiovascular Medicine Michael Ansari in [facility] [address] [facility] [address] [place] [address] [phone] Social History Tobacco Use Types Packs/Day Years [...] do you attend samaritan or Never 2021 sikhism services? Do you [...] Appointment Radiology Ro Norton APRN, C.N.P., D.N.P. [address] [phone] (Wo rk) 01/27/2022 Clinical Support Integrative Medicine Sohan Carballo [address] [place] [phone] (Wo rk) documented as of this encounter Visit Diagnoses Not on filedocumented in this encounter Additional Health Concerns Infection Onset Date Last Indicated Resolved Time COVID19 Pending 09/25/2020 09/25/2020 09/25/2020 11:14 PM CDT documented as of this encounter Care Teams Character Actress Relationship Specialty Start Date End Date Ro Norton APRN, C.N.P., PCP - General Family Medicine D.N.P. [address] [phone] documented as of this encounter
--- OUTSIDE RECORDS SUMMARY | 2022-01-17 13:10 | XMS_ITS | Encounter Summary ---
:1970 Author Organization [facility] Address [address] [place] [address] Care Team Providers Name Role Phone Ro Norton APRN C.N.PRaffy, D.N.P. Primary Care Provider Encounter Details Date Type Department Care Team Description 10/02/2020 Orders Only Department of Lubna Mcmillan Pulmonary Hypertension (HCC) (Primary Dx); Cardiovascular Medicine Michael Ansari Shortness Of Breath in [facility] costa [address] [facility] [address] [place] [address] [phone] Social History Tobacco Use Types Packs/Day Years [...] do you attend synagogue or Never 2021 church services? Do you [...] Appointment Radiology Ro Norton APRN, C.N.P., D.N.P. [address] [phone] (Wo rk) 01/27/2022 Clinical Support Integrative Medicine Haris, Iv y [address] [place], [place] [phone] (Wo rk) documented as of this encounter Visit Diagnoses Diagnosis Other Secondary Pulmonary Hypertension ( HCC) - Primary Shortness Of Breath documented in this encounter Care Teams Boiler House Operator Relationship Specialty Start Date End Date Ro Norton APRN, C.N.P., PCP - General Family Medicine D.N.P. [address] [phone] documented as of this encounter
--- OUTSIDE RECORDS SUMMARY | 2022-01-17 13:10 | XMS_ITS | Encounter Summary ---
:1970 Author Organization [facility] Address [address] [place] [address] Care Team Providers Name Role Phone Ro Norton APRN C.N.PRaffy, D.N.P. Primary Care Provider Reason for Visit Reason Comments Patient Education Outpatient (Routine) - Closed Specialty Diagnoses / Procedures Referred By Contact Refer red To Contact Cardiovascular Disease Lubna Mcmillan [address] [address] [place] M.D. [address] [place] [phone] Referral ID Status Reason Start Date Expiration Date Visits Requ ested Visits Authorized [id number] Closed 07/01/2020 07/01/2021 1 1 Encounter Details Date Type Department Care Team Description 08/21/2020 Virtual Visit Department of Lubna Mcmillan M.D. [address] [place] [phone] Shortness Of Breath Cardiovascular Medicine Mikayla Castañeda, RShikha in [facility] potato loader [address] [place] [phone] Social History Tobacco Use Types Packs/Day Years [...] do you attend protestant or Never 2021 presybeterian services? Do you belong to any clubs or No 02/25/2021 organizations such as protestant groups, unions, fraSupramed or athletic groups, or school groups? How [...] pm. 5. Stay within 100 miles of [place] overnight 6. Take all medications as instructed 7. Call the [facility] Service Line ([phone]) the evening before the procedure between the [...] Cardiac Catheterization or Heart Rhythm Procedure?? , [id number]. See After Visit Summary for specific instructions [...] Appointment Radiology Ro Norton APRN, C.N.P., D.N.P. [address] [phone] (Amanda goldman) 01/27/2022 Clinical Support Integrative Medicine Sohan Carballo y [address] [place] [phone] (Amanda goldman) documented as of this encounter Visit Diagnoses Diagnosis Shortness Of Breath documented in this encounter Care Teams Pick Up Relationship Specialty Start Date End Date Ro Norton APRN, C.N.P., PCP - General Family Medicine D.N.P. [address] [phone] documented as of this encounter
--- OUTSIDE RECORDS SUMMARY | 2022-01-17 13:10 | XMS_ITS | Encounter Summary ---
:1970 Author Organization [facility] Address [address] [place] [address] Care Team Providers Name Role Phone Ro Norton APRN, C.N.P., D.N.P. Primary Care Provider Reason for Visit Reason Comments Rx Prior Authorization PA DENIED - NICOTROL INH 10M G Encounter Details Date Type Department Care Team Description 09/14/2020 Clinical Division of [facility], Rx Prior Communication Pulmonary Medicine Joy Amaya Authorization (PA in [place], [address] [facility] DENIED - N[place]OTROL [place]H [place], [place] [address] ) [address] [facility] [address] [place], [place] [phone] (Work) [phone] Social History Tobacco Use Types Packs/Day Years [...] do you attend taoism or Never 2021 amish services? Do you [...] Appointment Radiology Ro Norton APRN, C.N.P., D.N.P. [address] [phone] (Wo rk) 01/27/2022 Clinical Support Integrative Medicine Haris, Iv y [address] [place], [place] [phone] (Wo rk) documented as of this encounter Visit Diagnoses Not on filedocumented in this encounter Additional Health Concerns Infection Onset Date Last Indicated Resolved Time COVID19 Pending 09/25/2020 09/25/2020 09/25/2020 11:14 PM CDT documented as of this encounter Care Teams Disc Inspector Relationship Specialty Start Date End Date Ro Norton APRN, C.N.P., PCP - General Family Medicine D.N.P. [address] [phone] documented as of this encounter
--- OUTSIDE RECORDS SUMMARY | 2022-01-17 13:10 | XMS_ITS | Encounter Summary ---
:1970 Author Organization [facility] Address [address] [place] [address] Care Team Providers Name Role Phone Ro Norton APRN C.N.P., D.N.P. Primary Care Provider Encounter Details Date Type Department Care Team Description 08/27/2020 Clinical Communication Division of Pulmonary [facility] in Elan Faust M.D. [address] [place] [address] [phone] Social History Tobacco Use Types Packs/Day Years [...] do you attend christianity or Never 2021 mormonism services? Do you [...] Appointment Radiology Ro Norton APRN, C.N.P., D.N.P. [address] [phone] (Wo rk) 01/27/2022 Clinical Support Integrative Medicine Sohan Carballo y [address] [place], [place] [phone] (Wo rk) documented as of this encounter Visit Diagnoses Diagnosis Chronic Obstructive Pulmonary Disease (H CC) - Primary Other Secondary Pulmonary Hypertension ( HCC) Shortness Of Breath documented in this encounter Additional Health Concerns Infection Onset Date Last Indicated Resolved Time COVID19 Pending 08/27/2020 08/27/2020 08/27/2020 12:09 PM CDT documented as of this encounter Care Teams It Business Systems Analyst Relationship Specialty Start Date End Date Ro Norton APRN, C.N.P., PCP - General Family Medicine D.N.P. [address] [phone] documented as of this encounter
--- OUTSIDE RECORDS SUMMARY | 2022-01-17 13:10 | XMS_ITS | Encounter Summary ---
:1970 Author Organization [facility] Address [address] [place] [address] Care Team Providers Name Role Phone Ro [...] Expiration Date Visits Requ ested Visits Authorized [id number] 1 1 Encounter Details Date Type Department Care Team Description 09/29/2020 Surgery Division of [facility] HEART CATH ETERIZATION - Cardiovascular Diseases Michael [facility] in [facility] [place] [address] [facility] [address] [place] [phone] [phone] Social History Tobacco Use Types Packs/Day Years [...] do you attend mormonism or Never 2021 advent services? Do you [...] through Care Everywhere.Care Following Your Catheter Procedure (Kinyarwanda)documented in this encounter Medications at Time of [...] instructions were reviewed in detail as per [id number], with patient and family; they verbalized understanding. Follow up appointment is arranged. Patient was dismissed when discharge criteria was met, accompanied by daughter. All questions answered. documented in this encounter Plan of Treatment Upcoming Encounters Date Type Specialty Care Team Description 01/21/2022 Appointment Radiology Ro Norton APRN, C.N.P., D.N.P. [address] [phone] (Wo rk) 01/27/2022 Clinical Support Integrative Medicine Haris, Iv y [address] [place], [place] [phone] (Wo rk) documented [...] injection documented in this encounter Care Teams Reimbursement Spec Relationship Specialty Start Date End Date Ro Norton APRN, C.N.P., PCP - General Family Medicine D.N.P. [address] [phone] documented as of this encounter
--- OUTSIDE RECORDS SUMMARY | 2022-01-17 13:10 | XMS_ITS | Encounter Summary ---
:1970 Author Organization [facility] Address [address] [place] [address] Care Team Providers Name Role Phone Ro Norton APRN, C.N.P., D.N.P. Primary Care Provider Encounter Details Date Type Department Care Team Description 08/31/2020 Orders Only [facility] Lubna Hendricks M.D. [address] [facility] [address] [place] [address] [place], [place] [phone] (Wo rk) Social History Tobacco Use Types [...] do you attend sabianist or Never 2021 moravian services? Do you [...] Appointment Radiology Ro Norton APRN, C.N.P., D.N.P. [address] [phone] (Wo rk) 01/27/2022 Clinical Support Integrative Medicine Haris, Iv y [address] [place], [place] [phone] (Wo rk) documented as of this encounter Visit Diagnoses Not on filedocumented in this encounter Care Teams Leather Piece Inspector Relationship Specialty Start Date End Date Ro Norton APRN, C.N.P., PCP - General Family Medicine D.N.P. [address] [phone] documented as of this encounter
--- OUTSIDE RECORDS SUMMARY | 2022-01-17 13:10 | XMS_ITS | Encounter Summary ---
:1970 Author [address] [facility] Address [address] [place] [address] Care Team Providers Name Role Phone Ro Norton APRN, C.N.P., D.N.P. Primary Care Provider Encounter Details Date Type Department Care Team Description 10/06/2020 Orders Only [facility] - [facility] Ro Norton APRN, [address] [facility] C.N.P., D.N.P. [facility] [place] [address] [place] [address] [place] [phone] (Wo rk) Social History Tobacco [...] do you attend hinduism or Never 2021 jehovah's witness services? Do [...] Appointment Radiology Ro Norton APRN, C.N.P., D.N.P. [address] [phone] (Amanda rk) 01/27/2022 Clinical Support Integrative Medicine Haris, Iv y [address] [place], [place] [phone] (Wo rk) documented as of this encounter Visit Diagnoses Not on filedocumented in this encounter Care Teams Container Crane Operator Relationship Specialty Start Date End Date Ro Norton APRN, C.N.P., PCP - General Family Medicine D.N.P. [address] [phone] documented as of this encounter
--- OUTSIDE RECORDS SUMMARY | 2022-01-17 13:10 | XMS_ITS | Encounter Summary ---
:1970 Author Organization [facility] Address [address] [place] [address] Care Team Providers Name Role Phone Ro Norton APRN, C.N.P., D.N.P. Primary Care Provider Encounter Details Date Type Department Care Team Description 09/10/2020 Orders Only [facility] Lubna Mcmillan M.D. [address] [facility] [address] [place] [address] [place] [address] (Wo rk) Social History Tobacco Use Types [...] do you attend restoration or Never 2021 sikhism services? Do you [...] Appointment Radiology Ro Norton APRN, C.N.P., D.N.P. [address] [place] [phone] (Wo rk) 01/27/2022 Clinical Support Integrative Medicine Haris, Iv y [address] [place], [place] [phone] (Wo rk) documented as of this encounter Visit Diagnoses Not on filedocumented in this encounter Care Teams Scouring Train Operator Chief Relationship Specialty Start Date End Date Ro Norton APRN, C.N.P., PCP - General Family Medicine D.N.P. [address] [phone] documented as of this encounter
--- OUTSIDE RECORDS SUMMARY | 2022-01-17 13:10 | XMS_ITS | Encounter Summary ---
:1970 Author Organization [facility] Address [address] [place] [address] Care Team Providers Name Role Phone Ro Norton APRN C.N.Kirsty, D.N.P. Primary Care Provider Reason for Referral Outpatient (Routine) - Closed Specialty Diagnoses / Procedures Referred By Contact Refer red To Contact Diagnoses Other Secondary Pulmonary Hypertension (HCC) Shortness Of Breath Lubna Mcmillan M.D. [facility] Procedures Echo Transthoracic (TTE) [address] [place] [address] Referral ID Status Reason Start Date Expiration Date Visits Requ ested Visits Authorized [id number] Closed 07/01/2020 07/01/2021 1 1 Reason for Visit Outpatient (Routine) - Closed Specialty Diagnoses / Procedures Referred By Contact Refer red To Contact Diagnoses Other Secondary Pulmonary Hypertension (HCC) Shortness Of Breath Lubna Mcmillan M.D. [facility] Procedures Echo Transthoracic (TTE) [address] [place], [place] [address] Referral ID Status Reason Start Date Expiration Date Visits Requ ested Visits Authorized [id number] Closed 07/01/2020 07/01/2021 1 1 Encounter Details Date Type Department Care Team Description 08/27/2020 Hospital Encounter Department of [place], Eusebia Se condary Pulmonary Hypertension (HCC); Cardiovascular Lubna Ansari M.D. Shortness Of Breath Diseases in [place], [address] [place], [place] [address] [address] [place], [place] [phone] (Work) [phone] Social History Tobacco Use Types Packs/Day Years [...] do you attend catholic or Never 2021 mandaeism services? Do you [...] Appointment Radiology Ro Norton APRN, C.N.P., D.N.P. [address] [phone] (Wo rk) 01/27/2022 Clinical Support Integrative Medicine Sohan Carballo y [address] [place], [place] [phone] (Wo rk) documented as [...] COLOR AND CONTRAST (08/27/2020 4:25 PM CDT) [facility] Method Time Signature Ejection Fraction 56 MC [...] effusion. For the complete report, see the Belly Documents. Narrative 08/27/2020 4:20 PM CDT For the complete report, see the Belly Documents. Final Impressions 1. Severely enlarged right [...] Agitated saline contrast administered . 9. No ikpun-fs-oncp shunt at atrial leve l at rest [...] Agitated saline contrast administered . 9. No otbnj-qy-omkq shunt at atrial leve l at rest [...] protocol documented in this encounter Care Teams Insurance Sales Associate Relationship Specialty Start Date End Date Ro Norton APRN, C.N.P., PCP - General Family Medicine D.N.P. [address] [phone] documented as of this encounter
--- OUTSIDE RECORDS SUMMARY | 2022-01-17 13:10 | XMS_ITS | Encounter Summary ---
:1970 Author Organization [facility] Address [address] [place] [address] Care Team Providers Name Role Phone Ro Norton APRN C.N.P., D.N.P. Primary Care Provider Reason for Visit Appointment Request (Routine) - Closed Specialty Diagnoses / Procedures Referred By Contact Refer red To Contact Cardiovascular Disease Referral ID Status Reason Start Date Expiration Date Visits Requ ested Visits Authorized [id number] Closed 09/29/2020 09/29/2021 1 1 Encounter Details Date Type Department Care Team Description 09/29/2020 Virtual Visit Department of Lubna Mcmillan Cardiovascular Medicine Michael Ansari Pulmonary in [facility] rotary cutter feeder [address] [facility] Hypertension (HCC) [address] [place] [address] [phone] Social History Tobacco Use Types Packs/Day Years [...] do you attend druze or Never 2021 confucianism services? Do you [...] Appointment Radiology Ro Norton APRN, C.N.P., D.N.P. [address] [place] [phone] (Wo rk) 01/27/2022 Clinical Support Integrative Medicine Haris, Iv y [address] [place], [place] [phone] (Wo rk) documented as of this encounter Visit Diagnoses Diagnosis Other Secondary Pulmonary Hypertension ( HCC) documented in this encounter Care Teams Chain Hoist Operator Relationship Specialty Start Date End Date Ro Norton APRN, C.N.P., PCP - General Family Medicine D.N.P. [address] [place] [phone] documented as of this encounter
--- OUTSIDE RECORDS SUMMARY | 2022-01-17 13:11 | XMS_ITS | Encounter Summary ---
:1970 Author Organization [facility] Address [address] [place] [address] Care Team Providers Name Role Phone Ro Norton APRN, C.N.P., D.N.P. Primary Care Provider Reason for Visit Reason Comments Social Work and Cardiovascular Consults for RST Orders for [facility] Encounter Details Date Type Department Care Team Description 06/11/2020 Clinical Department of Ro Norton Work and Communication Family Medicine, MORGAN Ansari, Cardiovasc stephanie Crowheart C.N.P., D.N.P. Consults for RST Clinic, in [address] (Orders fo r [address]) [address] [place] [address] [place], [place] [phone] (Work) [phone] Social History Tobacco Use Types Packs/Day Years [...] do you attend mormonism or Never 2021 yazdanism services? Do you [...] direct that person to call us at [phone]. If you have questions, please call us at [phone] or [phone]. documented in this encounter Plan of Treatment Upcoming Encounters Date Type Specialty Care Team Description 01/21/2022 Appointment Radiology Ro Norton APRN, C.N.P., D.N.P. [address] [phone] (Wo rk) 01/27/2022 Clinical Support Integrative Medicine HarisSohan y [address] [place], [place] [phone] (Wo rk) documented as of this encounter Visit Diagnoses Not on filedocumented in this encounter Additional Health Concerns Infection Onset Date Last Indicated Resolved Time COVID19 Pending 06/19/2020 06/19/2020 06/19/2020 10:46 AM CDT documented as of this encounter Care Teams Biofuels Technology Development Manager Relationship Specialty Start Date End Date Ro Norton APRN, C.N.P., PCP - General Family Medicine D.N.P. [address] [phone] documented as of this encounter
--- OUTSIDE RECORDS SUMMARY | 2022-01-17 13:11 | XMS_ITS | Encounter Summary ---
:1970 Author Organization [facility] Address [address] [place] [address] Care Team Providers Name Role Phone Ro Norton APRN, C.N.P., D.N.P. Primary Care Provider Reason for Visit Reason Comments Follow-up Outpatient (Routine) - Closed Specialty Diagnoses / Procedures Referred By Contact Refer red To Contact Family Medicine Diagnoses Chronic Obstructive Pulmonary Disease Exacerbation (HCC) Ro Norton, [facility] MORGAN, C.N.P., D.N.P. [address] [place] [address] Referral ID Status Reason Start Date Expiration Date Visits Requ ested Visits Authorized [id number] Closed 05/07/2019 05/06/2020 1 1 Encounter Details Date Type Department Care Team Description 06/05/2020 Office Visit Department of Family Ro Norton, Ot her Secondary Pulmonary Hypertension (HCC) (Primary Dx); Medicine, [place] MORA, C.N.P., Chronic Ob structive Pulmonary Disease Exacerbation (HCC); [facility], in D.N.P. Anomaly Heart Congenital (HCC) [address] [phone] Social History Tobacco Use Types Packs/Day [...] do you attend jew or Never 2021 taoism services? Do you [...] Other Secondary Pulmonary Hypertension (HCC) She has field counsel ordered scheduled for July 01. - [...] Appointment Radiology Ro Norton APRN, C.N.P., D.N.P. [address] [phone] (Wo rk) 01/27/2022 Clinical Support Integrative Medicine Haris, Iv y [address] [place], [place] [phone] (Wo rk) documented as of this encounter Visit Diagnoses Diagnosis Other Secondary Pulmonary Hypertension ( HCC) - Primary Chronic Obstructive Pulmonary Disease Ex acerbation (HCC) Anomaly Heart Congenital (HCC) documented in this encounter Care Teams Directory Operator Relationship Specialty Start Date End Date Ro Norton APRN, C.N.P., PCP - General Family Medicine D.N.P. [address] [phone] documented as of this encounter
--- OUTSIDE RECORDS SUMMARY | 2022-01-17 13:11 | XMS_ITS | Encounter Summary ---
:1970 Author Organization [facility] Address [address] [place] [address] Care Team Providers Name Role Phone Ro Norton APRN, C.N.P., D.N.P. Primary Care Provider Encounter Details Date Type Department Care Team Description 05/29/2020 Hospital Encounter Department of Ro Norton c Obstructive Pulmonary Disease Without Exacerbation (HCC); Radiology in [place] Ansari APRN, Other Se condary Pulmonary Hypertension (HCC); [place], [place] C.N.P., D.N.P. Shortness Of Breath; [address] [place] [address] [place] [address] [place], [place], [address] [place] [address] Social History Tobacco Use Types Packs/Day Years [...] do you attend mosque or Never 2021 pentecostal services? Do you [...] Appointment Radiology Ro Norton APRN, C.N.P., D.N.P. [address] [phone] (Wo rk) 01/27/2022 Clinical Support Integrative Medicine Haris, Iv y [address] [place], [place] [phone] (Wo rk) documented as [...] Fatigue documented in this encounter Care Teams Bracelet And Brooch Maker Relationship Specialty Start Date End Date Ro Norton APRN, C.N.P., PCP - General Family Medicine D.N.P. [address] [phone] documented as of this encounter
--- OUTSIDE RECORDS SUMMARY | 2022-01-17 13:11 | XMS_ITS | Encounter Summary ---
:1970 Author Organization [facility] Address [address] [place] [address] Care Team Providers Name Role Phone Ro Norton APRN C.N.Kirsty, Katelynn.N.P. Primary Care Provider Encounter Details Date Type Department Care Team Description 06/01/2020 Clinical Communication Department of [facility] Ro Norton, Medicine, [place] MORGAN C.N.PRaffy, Clinic, in [place] [address] [phone] Social History Tobacco Use Types Packs/Day Years [...] do you attend islam or Never 2021 voodoo services? Do you [...] the phone between 7 am-6 pm, Monday-Monday. [place]: [phone] [place]: [phone] [place]: [phone] [place]: [phone] [place]: [phone] [place]: [phone] [facility]: [phone] [facility], [place], or [place] clinics: [phone] [place]:[phone] [place]: [phone] Thank you for trusting your health care to [facility]. documented in this encounter Plan of Treatment Upcoming Encounters Date Type Specialty Care Team Description 01/21/2022 Appointment Radiology Ro Norton APRN, C.N.P., D.N.P. [address] [phone] (Wo rk) 01/27/2022 Clinical Support Integrative Medicine Haris, Iv y [address] [place], [place] [phone] (Amanda goldman) documented as of this encounter Visit Diagnoses Not on filedocumented in this encounter Care Teams Lower School Spanish Teacher Relationship Specialty Start Date End Date Ro Norton APRN, C.N.P., PCP - General Family Medicine D.N.P. [address] [phone] documented as of this encounter
--- OUTSIDE RECORDS SUMMARY | 2022-01-17 13:11 | XMS_ITS | Encounter Summary ---
:1970 Author Organization [facility] Address [address] [place] [address] Care Team Providers Name Role Phone Ro Norton APRN C.N.Kirsty, Katelynn.N.P. Primary Care Provider Encounter Details Date Type Department Care Team Description 06/04/2020 Clinical Communication Department of [facility] Ro Norton, Medicine, [place] MORGAN C.N.PRaffy, Clinic, in [place] [address] [place] [address] [phone] Social History Tobacco Use Types Packs/Day Years [...] do you attend congregation or Never 2021 alevism services? Do you [...] Appointment Radiology Ro Norton APRN, C.N.P., D.N.P. [address] [phone] (Amanda rk) 01/27/2022 Clinical Support Integrative Medicine Haris, Iv y [address] [place], [place] [phone] (Wo rk) documented as of this encounter Visit Diagnoses Not on filedocumented in this encounter Care Teams Packing Attendant Relationship Specialty Start Date End Date Ro Norton APRN, C.N.P., PCP - General Family Medicine D.N.P. [address] [phone] documented as of this encounter
--- OUTSIDE RECORDS SUMMARY | 2022-01-17 13:11 | XMS_ITS | Encounter Summary ---
:1970 Author Organization [facility] Address [address] [place] [address] Care Team Providers Name Role Phone Ro Norton APRN C.N.P., D.N.P. Primary Care Provider Encounter Details Date Type Department Care Team Description 06/29/2020 E-Visit [facility] Express Care Lennie Miller, RE: Express Care Online at the [facility] on MORGAN, C.N.P., for Seasonal Allergies the 4th Floor M.S.N. [address] [facility] [address] [place] [address] [place], [place] [phone] Social History Tobacco Use Types Packs/Day Years [...] do you attend judaism or Never 2021 jain services? Do you belong to any clubs [...] Appointment Radiology Ro Norton APRN, C.N.P., D.N.P. [address] [place] [phone] (Amanda goldman) 01/27/2022 Clinical Support Integrative Medicine Haris, Iv y [address] [place], [place] [phone] (Amanda rk) documented as of this encounter Visit Diagnoses Diagnosis Sinusitis - Primary Rhinitis Allergic documented in this encounter Care Teams Mold Closer Relationship Specialty Start Date End Date Ro Norton APRN, C.N.P., PCP - General Family Medicine D.N.P. [address] [place] [phone] documented as of this encounter
--- OUTSIDE RECORDS SUMMARY | 2022-01-17 13:11 | XMS_ITS | Encounter Summary ---
:1970 Author Organization [facility] Address [address] [place] [address] Care Team Providers Name Role Phone Ro Norton APRN C.N.P., D.N.P. Primary Care Provider Encounter Details Date Type Department Care Team Description 08/19/2020 Diagnostic Division of Pulmonary Lubna Mcmillan, Other Secondary Pulmonary Hypertension (HCC); Medicine in [place] Shortness Of Breath [place] [address] [facility] [address] [place] [address] [phone] Social History Tobacco Use Types Packs/Day Years [...] do you attend yazidism or Never 2021 confucianism services? Do you [...] Appointment Radiology Ro Norton APRN, C.N.P., D.N.P. [address] [phone] (Wo rk) 01/27/2022 Clinical Support Integrative Medicine Sohan Carballo y [address] [place] [phone] (Wo rk) documented as of this encounter Procedures Procedure Name Priority Date/Time Associated Diagnosis Comme nts PUL HOME OVERNIGHT Routine 08/20/2020 Other Secondary Result s for this OXIMETRY Pulmonary Hypertension proce dure are in the ([facility]) results section. Shortness Of Breath documented in [...] Organization Address City/State/ZIP Code Phon e Number [place] [facility] documented in this encounter Visit Diagnoses Diagnosis Other Secondary Pulmonary Hypertension ( HCC) Shortness Of Breath documented in this encounter Care Teams Red Hat Linux Engineer Relationship Specialty Start Date End Date Ro Norton APRN, C.N.P., PCP - General Family Medicine D.N.P. [address] [place] [phone] documented as of this encounter
--- OUTSIDE RECORDS SUMMARY | 2022-01-17 13:11 | XMS_ITS | Encounter Summary ---
:1970 Author Organization [facility] Address [address] [place] [address] Care Team Providers Name Role Phone Ro Norton APRN C.N.P., D.N.P. Primary Care Provider Encounter Details Date Type Department Care Team Description 07/16/2020 Clinical Communication Division of Pulmonary [facility] in Elan Faust M.D. [address] [place] [phone] Social History Tobacco Use Types Packs/Day Years [...] do you attend islam or Never 2021 yazidi services? Do you [...] her COVID swab as scheduled 07/15 in [place]. I left a message for her to call to reschedule. She will need to come to [place] for a rapid COVID swab today 07/16 [...] Appointment Radiology Ro Norton APRN, C.N.P., D.N.P. [address] [phone] (Wo rk) 01/27/2022 Clinical Support Integrative Medicine Haris, Iv y [address] [place], [place] [phone] (Amanda goldman) documented as of this encounter Visit Diagnoses Not on filedocumented in this encounter Additional Health Concerns Infection Onset Date Last Indicated Resolved Time COVID19 Pending 07/14/2020 07/14/2020 08/03/2020 4:45 AM CDT documented as of this encounter Care Teams Production Machine Shop Supervisor Relationship Specialty Start Date End Date Ro Norton APRN, C.N.P., PCP - General Family Medicine D.N.P. [address] [phone] documented as of this encounter
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
--- OUTSIDE RECORDS SUMMARY | 2022-01-17 13:11 | XMS_ITS | Encounter Summary ---
:1970 Author Organization [facility] Address [address] [place] [address] Care Team Providers Name Role Phone Ro Norton APRN, C.N.Kirsty, D.N.P. Primary Care Provider Reason for Referral Outpatient (Routine) - Closed Specialty Diagnoses / Procedures Referred By Contact Refer red To Contact Diagnoses Other Secondary Pulmonary Hypertension (HCC) Shortness Of Breath Lubna Mcmillan M.D. [facility] Procedures [place] Lung Ventilation and Perfusion [address] [place] [address] Referral ID Status Reason Start Date Expiration Date Visits Requ ested Visits Authorized [id number] Closed 07/01/2020 07/01/2021 6 6 Reason for Visit Outpatient (Routine) - Closed Specialty Diagnoses / Procedures Referred By Contact Refer red To Contact Diagnoses Other Secondary Pulmonary Hypertension (HCC) Shortness Of Breath Lubna Mcmillan M.D. [facility] Procedures NM Lung Ventilation and Perfusion [address] [place] [address] Referral ID Status Reason Start Date Expiration Date Visits Requ ested Visits Authorized [id number] Closed 07/01/2020 07/01/2021 6 6 Encounter Details Date Type Department Care Team Description 08/19/2020 Hospital Encounter Department of Lubna Mcmillan Other Secondary Pulmonary Hypertension (HCC); Radiology, Giovanni M, M.D. Shortness Of Breath Building, in 200 [facility] [address] 200 [facility] [phone] [place], [place] (Work) [address] [phone] Social History Tobacco Use Types Packs/Day Years [...] do you attend religion or Never 2021 mu-ism services? Do you [...] Appointment Radiology Ro Norton APRN, C.N.P., D.N.P. [address] [phone] (Wo rk) 01/27/2022 Clinical Support Integrative Medicine Sohan Carballo y [address] [place], [place] [phone] (Wo rk) documented as [...] corresponds to atelectasis and/scarring noted on the nm mparison CT chest on 10/22/2019. No mismatch [...] corresponds to [facility]electasis and[facility]. No mismatch [...] dose documented in this encounter Care Teams Atm Servicer Relationship Specialty Start Date End Date Ro Norton APRN, C.N.P., PCP - General Family Medicine D.N.P. [address] [phone] documented as of this encounter
--- OUTSIDE RECORDS SUMMARY | 2022-01-17 13:11 | XMS_ITS | Encounter Summary ---
:1970 Author Organization [facility] Address [address] [place] [address] Care Team Providers Name Role Phone Ro Norton APRN, C.N.P., D.N.P. Primary Care Provider Reason for Visit Reason Comments Social Work - General consult RST Order for [facility] Encounter Details Date Type Department Care Team Description 07/13/2020 Clinical Communication Department of Ro Norton Work - Family Medicine, MORGAN Ansari, General con sult RST [place] C.N.P., D.N.P. (Order for [facility], in [address] [address] [place], [place] [phone] (Work) [phone] Social History Tobacco Use Types Packs/Day Years [...] do you attend druze or Never 2021 advent services? Do you [...] please have the patient contact us at [phone] and we will reinstate the order at that time. Sincerely, [facility] Online Services for Referring Providers Appointment Office documented in this encounter Plan of Treatment Upcoming Encounters Date Type Specialty Care Team Description 01/21/2022 Appointment Radiology Ro Norton APRN, C.N.P., D.N.P. [address] [phone] (Wo rk) 01/27/2022 Clinical Support Integrative Medicine Sohan Carballo y [address] [place], [place] [phone] (Wo rk) documented as of this encounter Visit Diagnoses Not on filedocumented in this encounter Additional Health Concerns Infection Onset Date Last Indicated Resolved Time COVID19 Pending 07/14/2020 07/14/2020 08/03/2020 4:45 AM CDT documented as of this encounter Care Teams Manager Advertising Relationship Specialty Start Date End Date Ro Norton APRN, C.N.P., PCP - General Family Medicine D.N.P. [address] [phone] documented as of this encounter
--- OUTSIDE RECORDS SUMMARY | 2022-01-17 13:11 | XMS_ITS | Encounter Summary ---
:1970 Author Organization [facility] Address [address] [place] [address] Care Team Providers Name Role Phone Ro Norton APRN C.N.P., D.N.P. Primary Care Provider Encounter Details Date Type Department Care Team Description 08/06/2020 Orders Only RST CCM Lubna Mcmillan Other Secondary [address] [facility] Michael Ansari Pulmonary Hypertension [place], [place] [address] [facility] (HCC) (Primary Dx) [address] [place] [address] Social History Tobacco Use Types Packs/Day Years [...] do you attend adventism or Never 2021 worship services? Do you [...] Appointment Radiology Ro Norton, MORGAN, C.N.P., D.N.P. [address] [phone] (Wo rk) 01/27/2022 Clinical Support Integrative Medicine Haris, Iv y [address] [place], [place] [phone] (Wo rk) documented as of this encounter Results SARS CoV-2 RNA, PCR, Varies Asymptomatic (08/27/2020 8:37 AM CDT) [facility] Method Time Signature SARS CoV-2 Swab, [...] Drug Administration an d is used per blocker and sewer's instructions. Performance characteristics were verified by [facility] in a manner consistent with CLIA requirements. Visit the CDC website: https://www.cdc.g ov/coronavirus/ for the most recent guidelines on Coron avirus testing. Fact Sheet for Healthcare Providers: https://www.fda.gov/media/282896/downloa d Fact Sheet for Patients: https://www.fda.gov/media/064354/downloa d Specimen Anatomical Collection Method Collection Time Receive d Time (Source) Location / / Volume Laterality Varies 08/27/2020 8:37 AM 9:11 (Nasopharynx) CDT AM CDT Lubna Mcmillan M.D. LAB MICROBIOLOGY - GENERAL O RDERABLES Performing Organization Address City/State/ZIP Code Phon e Number [facility] - [address] [place], [place] [address] [facility] [place] [address] Laboratories[facility] [place] [address] documented in this encounter Visit Diagnoses Diagnosis Other Secondary Pulmonary Hypertension ( HCC) - Primary documented in this encounter Care Teams Complaint Adjuster Relationship Specialty Start Date End Date Ro Norton APRN, C.N.P., PCP - General Family Medicine D.N.P. [address] [phone] documented as of this encounter
--- OUTSIDE RECORDS SUMMARY | 2022-01-17 13:11 | XMS_ITS | Encounter Summary ---
:1970 Author Organization [facility] Address [address] [place] [address] Care Team Providers Name Role Phone Ro Norton APRN C.N.P., D.N.P. Primary Care Provider Encounter Details Date Type Department Care Team Description 08/06/2020 Clinical Communication Division of Pulmonary [facility] in Elan Faust M.D. [address] [place] [phone] [phone] Social History Tobacco Use Types Packs/Day Years [...] do you attend latter-day or Never 2021 pentecostalism services? Do you [...] Appointment Radiology Ro Norton, MORGAN, C.N.P., D.N.P. [address] [phone] (Wo rk) 01/27/2022 Clinical Support Integrative Medicine Haris Iv y 701 [facility] Carlos Alberto [place] [phone] (Wo rk) documented as of this encounter Visit Diagnoses Not on filedocumented in this encounter Care Teams Data Warehouse Architect Relationship Specialty Start Date End Date Ro Norton APRN, C.N.P., PCP - General Family Medicine D.N.P. [address] [phone] documented as of this encounter
--- OUTSIDE RECORDS SUMMARY | 2022-01-17 13:11 | XMS_ITS | Encounter Summary ---
:1970 Author Organization [facility] Address [address] [place] [address] Care Team Providers Name Role Phone Ro Norton APRN C.N.P., D.N.P. Primary Care Provider Reason for Visit Reason Comments Shortness of Breath Encounter Details Date Type Department Care Team Description 06/19/2020 Emergency [facility] Adrian Rea, Chronic Obstructive Department P.A.-C. Pulmonary Disease (HCC) [address] [place] [address] [place] [address] (Primary Dx) [place] [phone] (Wo rk) Social History Tobacco Use [...] do you attend religion or Never 2021 mandaen services? Do you [...] Care Everywhere. Chronic Obstructive Pulmonary Disease Exacerbation (Amharic)documented in this encounter Medications at Time of [...] Appointment Radiology Ro Norton, MORGAN, C.N.P., D.N.P. [address] [phone] (Wo rk) 01/27/2022 Clinical Support Integrative Medicine Haris, Iv y [address] [place] [phone] (Wo rk) documented as of [...] Rapid, V Symptomatic (06/19/2020 10:17 AM CDT) [facility] Method Time Signature SARS CoV-2, Undetected Undetected 06/19/2020 CNFL PCR, Rapid, V 10:46 AM CDT Comment: ----ADDITIONAL INFORMATION---- This RT-PCR test was performed using the Trey SARS-CoV-2 and Influenza A/B Reagent assay from [employer], which has received Emergency Use Authori zation(EUA) by the U.S. Food and Drug Administration . Fact sheets for this Emergency Use Autho rization (EUA) assay can be found at the following link s: For Healthcare Providers: https://www.fda.gov/media/165963/downloa d For Patients: https://www.fda.gov/media/651013/downloa d SARS Coronavirus 2, Source, Swab, Nasopharynx 05/23 10:21 AM CDT CNFL Rapid Specimen Anatomical Collection Method Collection Time Receive d Time (Source) Location / / Volume Laterality Varies 06/19/2020 10:17 06/19/2020 (Nasopharynx) AM CDT 10:21 AM CDT Adrian Rea P.A.-C. LAB MICROBIOLOGY - GENERAL O RDERABLES Performing Organization Address City/State/ZIP Code Phon e Number [id number] [place] [address] [place] [address] System in [place] [address] [address] DX Chest AP or PA and [...] documented as of this encounter Care Teams Jet Mechanic Relationship Specialty Start Date End Date Ro Norton APRN, C.N.P., PCP - General Family Medicine D.N.P. [address] [phone] documented as of this encounter
--- OUTSIDE RECORDS SUMMARY | 2022-01-17 13:11 | XMS_ITS | Encounter Summary ---
:1970 Author Organization [facility] Address [address] [place] [address] Care Team Providers Name Role Phone Ro Norton APRN C.N.PRaffy, D.N.P. Primary Care Provider Encounter Details Date Type Department Care Team Description 08/19/2020 Hospital Encounter Department of Lubna Mcmillan Other Secondary Pulmonary Hypertension (HCC); Laboratory Medicine Michael Ansari Shortness Of Breath and Pathology, [address] [place] [address] in [facility] [address] [place] [phone] [place] [address] (Work) [place], [place] [phone] (Fax) [phone] Social History Tobacco Use Types Packs/Day Years [...] do you attend cheondoism or Never 2021 cheondoism services? Do you belong to any clubs [...] Appointment Radiology Ro Norton APRN, C.N.P., D.N.P. [address] [phone] (Wo rk) 01/27/2022 Clinical Support Integrative Medicine Haris, Iv y [address] [place], [place] [phone] (Wo rk) documented as [...] / Quant, Serum (08/19/2020 11:02 AM CDT) [facility] Method Time Signature HCV RNA [id number] (A) Undetected 08/20/2020 [facility] Detect/Quant, IU/mL 4:16 PM CDT S Comment: Result in log IU/mL is 6.76. ----ADDITIONAL INFORMATION---- The quantification range of this assay i s 15 to 100,000,000 IU/mL (1.18 log to 8.00 log IU/mL). Testing was performe d using the sandra HCV test ([employer] with the sandra 6800 System. Specimen Anatomical Collection Method Collection Time Receive d Time (Source) Location / / Volume Laterality Blood 08/19/2020 11:02 08/19/2020 AM CDT 11:10 PM CDT Lubna Mcmillan M.D. LAB MICROBIOLOGY - BLOOD ORD ERABLES Performing Organization Address City/State/ZIP Code Phon e Number [facility] [address] [place]ATHANIEL Faust [place] [address] [facility] [place] [address] Laboratory Medicine and Pathology [address] [place] HIV-1/-2 Ag and Ab Screen, Plasma (08/19/2020 11:02 AM CDT) athologist Signature HIV-1/-2 Ag Negative Negative 08/19/2020 [facility] and Ab Screen, 9:25 [...] - BLOOD ORD ERABLES Performing Organization Address City/[facility]/ZIP Code Phon e Number [address] [place] [address] 05 SUPPORT [facility] [place] [address] Laboratory Medicine and Pathology [address] [place] [address] Dr. ARMSTRONG (ABNORMAL) HCV Ab w/Reflex to HCV PCR, Serum (08/19/2020 11:02 AM CDT) athologist Signature HCV Ab, S Reactive (A) Negative 08/19/2020 [facility] 10:10 PM CDT Comment: Supplemental testing for HCV RNA is orde red to rule out active HCV infection. Nmrnoq-zb-sxlkfw ratio is >=8.00. Specimen Anatomical Collection Method Collection Time Receive d Time (Source) Location / / Volume Laterality Blood (Blood, 08/19/2020 11:02 08/19/2020 5:50 Venous) AM CDT PM CDT Lubna Mcmillan M.D. LAB MICROBIOLOGY - BLOOD ORD ERABLES Performing Organization Address City/State/ZIP Code Phon e Number [place] [phone] [place], [place] [address] SUPPORT [facility] [place] [address] Laboratory Medicine and Pathology [address] [place] [address] Dr. ARMSTRONG (ABNORMAL) HBc Total Ab, Serum (08/19/2020 11:02 AM CDT) Patholo gist Method Time Signature HBc Total Ab, Positive (A) Negative 08/19/2020 [facility] S 9:53 PM CDT [...] - BLOOD ORD ERADARVIN Performing Organization Address [facility] Phon e Number [facility] [address] [place] [address] [place] [address] Laboratory Medicine and Pathology [address] [place] [address] Dr. ARMSTRONG HBs Antibody, Serum (08/19/2020 11:02 AM CDT) athologist Signature HBs Antibody, Negative 08/19/2020 [facility] S 9:47 PM CDT Comment: Patient is presumed to be not immune to infection with HBV. ----REFERENCE VALUE---- Unvaccinated: Negative Vaccinated: Positive HBs Antibody, Quantitative, S <5.0 mIU/mL 08/19/2020 9:47 PM CDT [facility] Comment: ----REFERENCE VALUE---- Unvaccinated: <5.0 Vaccinated: >=12.0 Specimen Anatomical Collection Method Collection Time Receive d Time (Source) Location / / Volume Laterality Blood (Blood, 08/19/2020 11:02 08/19/2020 5:50 Venous) AM CDT PM CDT Lubna Mcmillan M.D. LAB MICROBIOLOGY - BLOOD ORD KRISTY Performing Organization Address City/[facility] Code Phon e Number [facility] [address] [place], [place] [address] SUPPORT [facility] [place] [address] Laboratory Medicine and Pathology [address] [place] [address] Dr. ARMSTRONG Hepatitis B Surface Antigen (08/19/2020 11:02 AM CDT) athologist Signature HBs Antigen, S Negative Negative 08/19/2020 [facility] 9:37 PM CDT Specimen Anatomical Collection Method Collection Time Receive d Time (Source) Location / / Volume Laterality Blood (Blood, 08/19/2020 11:02 08/19/2020 5:50 Venous) AM CDT PM CDT Lubna Mcmillan M.D. LAB MICROBIOLOGY - BLOOD ORD ERABLES Performing Organization Address City/[facility]/ZIP Code Phon e Number [facility] [address] [place], [place] [address] SU[facility] [place] [address] Laboratory Medicine and Pathology [address] [...] M.D. LAB BLOOD ADD-ON Performing Organization Address City/[facility]/ZIP Code Phon e Number [facility] [address] [place], [place] [address] [facility] [place] [address] Laboratories-[facility] 200 [facility] Connective Tissue Diseases [place] (08/19/2020 11:02 AM CDT) athologist Signature Antinuclear Ab, 0.2 <=1.0 08/20/2020 [facility] S (Negative) 12:33 PM CDT U Comment: ----ADDITIONAL INFORMATION---- Method: Enzyme-linked immunoassay using HEp-2 nuclear extract supplemented with purified antig ens. Cyclic Citrullinated <15.6 <20.0 (Negative) U 08/20/2020 10:49 AM [facility] Peptide Ab, S CDT Interpretation SEE COMMENT 08/20/2020 12:33 PM SDS C CDT Comment: Tests for antibodies to dsDNA and JULIANE an tigens are not performed automatically unless the KETURAH r esult is > or = 3.0 U. ??Studies performed at [facility] indicate that positive KETURAH results <3.0 U are rarely a ccompanied by positive second order tests. Specimen Anatomical Collection Method Collection Time Receive d Time (Source) Location / / Volume Laterality Blood (Blood, 08/19/2020 11:02 08/20/2020 7:35 Venous) AM CDT AM CDT Lubna Mcmillan M.D. LAB BLOOD ADD-ON Performing Organization Address City/State/ZIP Code Phon e Number [facility] [address] [place], [place] [address] SU[facility] CENTER [facility] [place] [address] Laboratory Medicine and Pathology [address] [...] 08/19/2020 DTL Black/ mL/min/BSA 3:30 PM CDT [place] Comment: ----ADDITIONAL INFORMATION---- Estimated GFR calculated using [...] Code Phon e Number [facility] - [address] [place] [address] [facility] [place] [address] Laboratories-[facility] 200 [facility] (ABNORMAL) CBC with Differential, Blood (08/19/2020 11:02 AM CDT) [facility] gist Method Time Signature Hemoglobin 16.1 [...] Code Phon e Number [facility] - [address] [place], [place] [address] [facility] [place] [address] Laboratories-[facility] [address] documented in this encounter Visit Diagnoses Diagnosis Other Secondary Pulmonary Hypertension ( HCC) Shortness Of Breath documented in this encounter Care Teams Parts Sales Representative Relationship Specialty Start Date End Date Ro Norton APRN, C.N.P., PCP - General Family Medicine D.N.P. [address] [phone] documented as of this encounter
--- OUTSIDE RECORDS SUMMARY | 2022-01-17 13:11 | XMS_ITS | Encounter Summary ---
:1970 Author Organization [facility] Address [address] [place] [address] Care Team Providers Name Role Phone Ro Norton APRN C.N.P., D.N.P. Primary Care Provider Encounter Details Date Type Department Care Team Description 08/20/2020 Orders Only Department of Lubna Mcmillan Hepatitis C Chronic Cardiovascular Medicine Michael Ansari (HCC) (Primary Dx) in [facility] pharmaceutical botanist [address] [facility] [address] [place] [address] [phone] Social History Tobacco Use Types Packs/Day Years [...] do you attend temple or Never 2021 pentecostalism services? Do you [...] Appointment Radiology Ro Norton APRN, C.N.P., D.N.P. [address] [phone] (Wo rk) 01/27/2022 Clinical Support Integrative Medicine Haris, Iv y [address] [place], [place] [phone] (Wo rk) documented as of this encounter Visit Diagnoses Diagnosis Hepatitis C Chronic (HCC) - Primary documented in this encounter Additional Health Concerns Infection Onset Date Last Indicated Resolved Time COVID19 Pending 08/27/2020 08/27/2020 08/27/2020 12:09 PM CDT documented as of this encounter Care Teams Business Operations Manager Relationship Specialty Start Date End Date Ro Norton APRN, C.N.P., PCP - General Family Medicine D.N.P. [address] [phone] documented as of this encounter
--- OUTSIDE RECORDS SUMMARY | 2022-01-17 13:11 | XMS_ITS | Encounter Summary ---
:1970 Author Organization [facility] Address [address] [place] [address] Care Team Providers Name Role Phone Ro Norton APRN C.N.PRaffy, D.N.P. Primary Care Provider Reason for Visit Reason Comments Med Refill Encounter Details Date Type Department Care Team Description 06/22/2020 Refill Department of Family Medicine, Ro Norton APRN, Med Refill [facility], in [place] C .N.PRaffy, D.N.P. [address] [phone] (Wo rk) Social History Tobacco Use Types [...] Appointment Radiology Ro Norton APRN, C.N.P., D.N.P. [address] [phone] (Amanda goldman) 01/27/2022 Clinical Support Integrative Medicine Haris, Iv y [address] [place], [place] [phone] (Wo rk) documented as of this encounter Visit Diagnoses Not on filedocumented in this encounter Care Teams Collection Advisor Relationship Specialty Start Date End Date Ro Norton APRN, C.N.P., PCP - General Family Medicine D.N.P. [address] [phone] documented as of this encounter
--- OUTSIDE RECORDS SUMMARY | 2022-01-17 13:11 | XMS_ITS | Encounter Summary ---
:1970 Author Organization [facility] Address [address] [place] [address] Care Team Providers Name Role Phone Ro Norton APRN, C.N.P., D.N.P. Primary Care Provider Encounter Details Date Type Department Care Team Description 06/23/2020 Orders Only [facility] Ro Norton APRN, C.N.P., D.N.P. [address] [place] [phone] (Wo rk) Social History Tobacco Use [...] do you attend muslim or Never 2021 denominational services? Do you [...] Appointment Radiology Ro Norton APRN, C.N.P., D.N.P. [address] [phone] (Wo rk) 01/27/2022 Clinical Support Integrative Medicine Haris, Sohan y 701 [place], [place] [phone] (Wo rk) documented as of this encounter Visit Diagnoses Not on filedocumented in this encounter Care Teams Med Dir Relationship Specialty Start Date End Date Ro Norton APRN, C.N.P., PCP - General Family Medicine D.N.P. [address] [phone] documented as of this encounter
--- OUTSIDE RECORDS SUMMARY | 2022-01-17 13:12 | XMS_ITS | Encounter Summary ---
:1970 Author Organization [facility] Address [address] [place] [address] Care Team Providers Name Role Phone Ro Norton APRN C.N.PRaffy, D.N.P. Primary Care Provider Encounter Details Date Type Department Care Team Description 12/23/2019 Orders Only Department of Angelita Buchanan, Pain Calf Left Orthopedic Surgery in [place] C.N.PRaffy, (Prim jonny Dx) [place], [place] M.S.N. [address] [facility] [address] [place] [phone] [phone] Social History Tobacco Use Types Packs/Day Years [...] do you attend mormonism or Never 2021 mandaen services? Do you [...] Appointment Radiology Ro Norton APRN, C.N.P., D.N.P. [address] [phone] (Wo rk) 01/27/2022 Clinical Support Integrative Medicine Haris, Iv y [address] [place], [place] [phone] (Wo rk) documented as of this encounter Visit Diagnoses Diagnosis Pain Calf Left - Primary documented in this encounter Care Teams Felled Seam Operator Chainstitch Relationship Specialty Start Date End Date Ro Norton APRN, C.N.P., PCP - General Family Medicine D.N.P. [address] [phone] documented as of this encounter
--- OUTSIDE RECORDS SUMMARY | 2022-01-17 13:12 | XMS_ITS | Encounter Summary ---
:1970 Author Organization [facility] Address [address] [place] [address] Care Team Providers Name Role Phone Ro Norton APRN C.N.PRaffy, D.N.P. Primary Care Provider Encounter Details Date Type Department Care Team Description 12/13/2019 Hospital Encounter Department of [place]ay[place], Angelita saldana [facility] Radiology, [facility] Conde [facility] in C.N.P., M.S.N. [place], [place] [address] [facility] [address] [place] [phone] Social History Tobacco Use Types Packs/Day Years [...] do you attend rastafari or Never 2021 scientologist services? Do you [...] Appointment Radiology Ro Norton APRN, C.N.P., D.N.P. [address] [place] [phone] (Wo rk) 01/27/2022 Clinical Support Integrative Medicine Haris, Iv y [address] [place], [place] [phone] (Wo rk) documented as [...] eft documented in this encounter Care Teams Shrink Pit Operator Relationship Specialty Start Date End Date Ro Norton APRN, C.N.P., PCP - General Family Medicine D.N.P. [address] [phone] documented as of this encounter
--- OUTSIDE RECORDS SUMMARY | 2022-01-17 13:12 | XMS_ITS | Encounter Summary ---
:1970 Author Organization [facility] Address [address] [place] [address] Care Team Providers Name Role Phone Ro Norton APRN C.N.PRaffy, D.N.P. Primary Care Provider Encounter Details Date Type Department Care Team Description 12/24/2019 Orders Only Department of Dewayne, Angelita Conde, Fracture T ibial Orthopedic Surgery in [place], C.N.PRaffy, Plate au Closed [place], [place] M.S.N. Subsequent Left [address] (Primary Dx) [place] [phone] [phone] Social History Tobacco Use Types Packs/Day Years [...] you attend latter day or Never 2021 zoroastrianism services? Do you [...] Appointment Radiology Ro Norton APRN, C.N.P., D.N.P. [address] [phone] (Amanda rk) 01/27/2022 Clinical Support Integrative Medicine Haris, Iv y [address] [place], [place] [phone] (Wo rk) documented as of this encounter Visit Diagnoses Diagnosis Fracture Tibial Plateau Closed Subsequen t Left - Primary documented in this encounter Care Teams Russian History Professor Relationship Specialty Start Date End Date oR Norton APRN, C.N.P., PCP - General Family Medicine D.N.P. [address] [phone] documented as of this encounter
--- OUTSIDE RECORDS SUMMARY | 2022-01-17 13:12 | XMS_ITS | Encounter Summary ---
:1970 Author Organization [facility] Address [address] [place] [address] Care Team Providers Name Role Phone Ro Norton APRN C.N.P., D.N.P. Primary Care Provider Encounter Details Date Type Department Care Team Description 01/07/2020 Clinical Communication Department of Raudel Lewis Orthopedic Surgery in [place], [place] [address] [place] [address] [address] [place] [phone] Social History Tobacco Use Types Packs/Day Years [...] do you attend taoism or Never 2021 adventist services? Do you [...] Appointment Radiology Ro Norton APRN, C.N.P., D.N.P. [address] [phone] (Wo rk) 01/27/2022 Clinical Support Integrative Medicine Haris, Iv y [address] [place], [place] [phone] (Wo rk) documented as of this encounter Visit Diagnoses Not on filedocumented in this encounter Care Teams Community Health Specialist Relationship Specialty Start Date End Date Ro Norton APRN, C.N.P., PCP - General Family Medicine D.N.P. [address] [phone] documented as of this encounter
--- OUTSIDE RECORDS SUMMARY | 2022-01-17 13:12 | XMS_ITS | Encounter Summary ---
:1970 Author Organization [facility] Address [address] [place] [address] Care Team Providers Name Role Phone Ro Norton APRN C.N.PRaffy, D.N.P. Primary Care Provider Reason for Visit Reason Comments Follow-up Outpatient (Routine) - Closed Specialty Diagnoses / Procedures Referred By Contact Refer red To Contact Orthopedic Surgery Angelita Buchanan APRN, [facility] C.N.PRaffy, M.S.N. [address] [place] [phone] Referral ID Status Reason Start Date Expiration Date Visits Requ ested Visits Authorized [id number] Closed 02/24/2020 02/23/2021 1 1 Encounter Details Date Type Department Care Team Description 02/26/2020 [facility] [address] [place] [phone] Fracture Tibial Orthopedic Surgery in Angelita Buchanan APRN C.N.PRaffy, M.S.N. [address] [place] [phone] Plateau Closed [place], [place] Subsequent Left [address] [facility] (Primary Dx) [place] [address] Social History Tobacco Use Types [...] do you attend christian or Never 2021 orthodox services? Do you [...] #1 Fracture Tibial Plateau Closed Subsequent Left ER SUPERVISOR OPEN HEARTH FURNACE Felicity Hansen R.N. - 02/26/2020 8:30 AM CST Nursing Note Patient fitted for a Knee Immobilzer. 20 inch [place] Knee Immobilizer applied to left leg. Instructed to wear over clothing. Printed materials supplied by the product company sent with patient. Patient instructed on proper use of device. Patient taught. Learning assessment no barriers present, patient ready to learn. Patient verbalizedunderstanding and able to teach back. ER SUPERVISOR OPEN HEARTH FURNACE documented in this encounter Plan of Treatment Upcoming Encounters Date Type Specialty Care Team Description 01/21/2022 Appointment Radiology Ro Norton APRN, C.N.P., D.N.P. [address] [phone] (Wo rk) 01/27/2022 Clinical Support Integrative Medicine Har[place], Iv y [address] [place], [place] [phone] (Wo rk) documented as of this encounter Visit Diagnoses Diagnosis Fracture Tibial Plateau Closed Subsequen t Left - Primary documented in this encounter Care Teams Order Tracer Relationship Specialty Start Date End Date Ro Norton APRN, C.N.P., PCP - General Family Medicine D.N.P. [address] [phone] documented as of this encounter
--- OUTSIDE RECORDS SUMMARY | 2022-01-17 13:12 | XMS_ITS | Encounter Summary ---
:1970 Author Organization [facility] Address [address] [place] [address] Care Team Providers Name Role Phone Ro Norton APRN, C.N.P., D.N.P. Primary Care Provider Reason for Visit Reason Comments Post Hospital Follow-up d/c 10/27/2019 Encounter Details Date Type Department Care Team Description 10/29/2019 Clinical Communication Department of Ro Norton [facility], MORGAN Ansari, Follow-up ( d/c [place] C.N.P., D.N.P. 10/27/2019) Clinic, in [address] [address] [place], [place] [phone] (Work) [phone] Social History Tobacco Use Types Packs/Day Years [...] do you attend shinto or Never 2021 hinduism services? Do you [...] Appointment Radiology Ro Norton APRN, C.N.P., D.N.P. [address] [phone] (Amanda goldman) 01/27/2022 Clinical Support Integrative Medicine [place], Iv y [address] [place], [place] [phone] (Amanda goldman) documented as of this encounter Visit Diagnoses Not on filedocumented in this encounter Care Teams Hospice Bereavement Coordinator Relationship Specialty Start Date End Date Ro Norton APRN, C.N.P., PCP - General Family Medicine D.N.P. [address] [phone] documented as of this encounter
--- OUTSIDE RECORDS SUMMARY | 2022-01-17 13:12 | XMS_ITS | Encounter Summary ---
:1970 Author Organization [facility] Address [address] [place] [address] Care Team Providers Name Role Phone Ro Norton APRN C.NDean, D.N.P. Primary Care Provider Reason for Visit Reason Comments Follow-up Outpatient (Routine) - Closed Specialty Diagnoses / Procedures Referred By Contact Refer red To Contact Orthopedic Surgery Kelli Mojica [facility] [address] [facility] M.D., M.ERaffy [address] [place] [address] Referral ID Status Reason Start Date Expiration Date Visits Requ ested Visits Authorized [id number] Closed 12/13/2019 12/12/2020 1 1 Encounter Details Date Type Department Care Team Description 01/21/2020 [facility] Raudel Betancourt Fracture T ibial Orthopedic Surgery in .DRaffy [facility] Closed [place], [place] 200 [facility] Subsequent Left [address] [place], [place] (Primary Dx) [place] [phone] Social History Tobacco Use Types Packs/Day Years [...] do you attend moravian or Never 2021 scientology services? Do you belong to any clubs or No 02/25/2021 organizations such as moravian groups, unions, fraPredictify or athletic groups, or school groups? How [...] #1 Fracture Tibial Plateau Closed Subsequent Left RY STEWARD/STEWARDESS documented in this encounter Plan of Treatment Upcoming Encounters Date Type Specialty Care Team Description 01/21/2022 Appointment Radiology Ro Norton APRN, C.N.P., D.N.P. [address] [phone] (Amanda goldman) 01/27/2022 Clinical Support Integrative Medicine Sohan Carballo y [address] [place], [place] [phone] (Wo rk) documented as of this encounter Visit Diagnoses Diagnosis Fracture Tibial Plateau Closed Subsequen t Left - Primary documented in this encounter Care Teams Health Promotion Manager Relationship Specialty Start Date End Date Ro Norton APRN, C.N.P., PCP - General Family Medicine D.N.P. [address] [phone] documented as of this encounter
--- OUTSIDE RECORDS SUMMARY | 2022-01-17 13:12 | XMS_ITS | Encounter Summary ---
:1970 Author Organization [facility] Address [address] [place] [address] Care Team Providers Name Role Phone Ro Norton APRN, C.NDean, D.N.P. Primary Care Provider Reason for Referral Outpatient (Routine) - Closed Specialty Diagnoses / Procedures Referred By Contact Refer red To Contact Diagnoses Fracture Tibial Plateau Closed Subsequent Left Angelita Buchanan APRN, Procedures Suture Removal C.N.P., M.S.N. [address] [place] [phone] Referral ID Status Reason Start Date Expiration Date Visits Requ ested Visits Authorized [id number] Closed 11/13/2019 11/12/2020 1 1 Reason for Visit Reason Comments Follow-up Outpatient (Routine) - Closed Specialty Diagnoses / Procedures Referred By Contact Refer red To Contact Orthopedic Surgery Angelita Buchanan APRN, [facility] C.N.P., M.S.N. [address] [place] [phone] Referral ID Status Reason Start Date Expiration Date Visits Requ ested Visits Authorized [id number] Closed 10/24/2019 10/23/2020 1 1 Encounter Details Date Type Department Care Team Description 11/13/2019 Office Visit Department of [facility], Raudel Betancourt M.D. [address] [place] [phone] Fracture Tibial Orthopedic Surgery in Angelita Buchanan MORGAN Conde C.N.P., M.S.N. [address] [place] [address] Plateau Closed [place], [place] Subsequent Left [address] [facility] (Primary Dx) [place] [phone] Social History Tobacco Use Types Packs/Day Years [...] do you attend sikhism or Never 2021 sabianist services? Do you [...] as of this encounter Progress Notes Angelita Buchanna APRN, C.N.P., M.S.N. - 11/13/2019 8:30 AM [...] Description 01/21/2022 Appointment Radiology Ro Norton APRN C.N.P., D.N.P. [address] [phone] (Wo rk) 01/27/2022 Clinical Support Integrative Medicine [place], Iv y [address] [place], [place] [phone] (Amanda rk) Scheduled Orders Name Type Priority Associated Diagnoses Order S chedule Suture Removal Procedures Routine Fracture Tibial Plateau Cl osed Ordered: 11/13/2019 Subsequent Left documented as of this encounter Visit Diagnoses Diagnosis Fracture Tibial Plateau Closed Subsequen t Left - Primary documented in this encounter Care Teams Moving Van Driver Relationship Specialty Start Date End Date Ro Norton APRN, C.N.P., PCP - General Family Medicine D.N.P. [address] [phone] documented as of this encounter
--- OUTSIDE RECORDS SUMMARY | 2022-01-17 13:12 | XMS_ITS | Encounter Summary ---
:1970 Author Organization [facility] Address [address] [place] [address] Care Team Providers Name Role Phone Ro Norton APRN C.N.P., D.N.P. Primary Care Provider Encounter Details Date Type Department Care Team Description 01/21/2020 Hospital Encounter Department of [place], Fracture Tibial Radiology, Jose Vazquez M.D., [facility], in M.E. Subsequent Left [place], [address] [place], [place] [address] [facility] [address] [place], [place] [phone] [address] (Work) [phone] Social History Tobacco Use Types Packs/Day Years [...] do you attend synagogue or Never 2021 jainism services? Do you [...] Appointment Radiology Ro Norton APRN, C.N.P., D.N.P. [address] [place] [phone] (Wo rk) 01/27/2022 Clinical Support Integrative Medicine [place], Iv y [address] [place], [place] [phone] (Wo rk) documented as of this encounter Procedures Procedure Name Priority Date/Time Associated Comments Diagnosis DX KNEE LEFT RAD - Routine 01/21/2020 9:29 Fracture Tibial Results for this STANDING 1-2 (most inpatients AM SOLID DIE CUTTER Plateau Closed procedure are in VIEWS and all Subsequent Left the results outpatients) section. documented in this encounter Results DX Knee Left Standing 1-2 Views (01/21/2020 9:29 AM SOLID DIE CUTTER) Anatomical Region Laterality Modality Lower Extremity, Knee, Musculoskeletal RST LOS, Left Digital Radiography Musculoskeletal ARZ LOS, Muskuloskeletal FLA LOS Specimen (Source) Anatomical Collection Method Collection Time Re ceived Time Location / / Volume Laterality 01/21/2020 9:32 AM SOLID DIE CUTTER Impressions 01/21/2020 9:37 AM SOLID DIE CUTTER Interposition cement and medial plate and screw fixation across a healing comminuted intra-articular left tibial plateau fracture. No change in alignment. Narrative 01/21/2020 9:37 AM SOLID DIE CUTTER EXAM: ??DX KNEE LEFT STANDING 1-2 VIEWS [...] Left documented in this encounter Care Teams Holter Technician Relationship Specialty Start Date End Date Ro Norton APRN, C.N.P., PCP - General Family Medicine Katelynn.N.P. [address] [phone] documented as of this encounter
--- OUTSIDE RECORDS SUMMARY | 2022-01-17 13:12 | XMS_ITS | Encounter Summary ---
:1970 Author Organization [facility] Address [address] [place] [address] Care Team Providers Name Role Phone Ro Norton APRN, C.N.P., D.N.P. Primary Care Provider Encounter Details Date Type Department Care Team Description 03/05/2020 E-Visit [facility] [place], Laquita ramírez, MORGAN, RE: [place] [facility] on the 4th C.N .P. Floor [address] [facility] [address] [place] [address] [phone] (Wo rk) Social History Tobacco Use Types [...] do you attend mandaen or Never 2021 methodist services? Do you [...] Radiology Ro Norton APRN, C.N.P., D.N.P. [address] [place] [phone] (Wo rk) 01/27/2022 Clinical Support Integrative Medicine [place], Iv y [address] [place], [place] [phone] (Wo rk) documented as of this encounter Visit Diagnoses Diagnosis Edema Right Upper Eyelid - Primary documented in this encounter Care Teams Arcgis Developer Relationship Specialty Start Date End Date Ro Norton APRN, C.N.P., PCP - General Family Medicine D.N.P. [address] [place] [phone] documented as of this encounter
--- OUTSIDE RECORDS SUMMARY | 2022-01-17 13:12 | XMS_ITS | Encounter Summary ---
:1970 Author Organization [facility] Address 200 [place] [address] Care Team Providers Name Role Phone Ro Norton APRN, C.NDean, D.N.P. Primary Care Provider Reason for Referral Outpatient (Routine) - Closed Specialty Diagnoses / Procedures Referred By Contact Refer red To Contact Orthopedic Surgery Angelita Buchanan APRN, [facility] [place].N.Kirsty, M.S.N. 200 [place] [address] Referral ID Status Reason Start Date Expiration Date Visits Requ ested Visits Authorized [id number] Closed 02/24/2020 02/23/2021 1 1 Scheduling Instructions Sems - est - 745 x-rays, 830 am eval MASTER Encounter Details Date Type Department Care Team Description 02/24/2020 Orders Only Department of Angelita Buchanan, Fracture T ibial Orthopedic Surgery in [place] MORA.NDean, Plate au Closed [place], [place] M.S.N. Subsequent Left [address] [facility] 200 [facility] (Primary Dx) [place] [address] [phone] Social History Tobacco Use Types Packs/Day Years [...] or relatives? How often do you attend roman catholic or Never 2021 advent services? Do you belong to any clubs or No 02/25/2021 organizations such as roman catholic groups, unions, fraternal or athletic groups, [...] Appointment Radiology Ro Norton APRN, C.N.P., D.N.P. [address] [phone] (Wo rk) 01/27/2022 Clinical Support Integrative Medicine Sohan Carballo [address] [place], [place] [phone] (Wo rk) Scheduled Referrals Name Type Priority Associated Order Schedule Diagnoses Orthopedic Surgery Outpatient Referral Routine Ex pected: office visit 02/26/2020 (clinic) (Approximate), Expires: 02/23/2023 documented as of this encounter Results DX Knee Left 2 Views (02/26/2020 7:55 AM WINE MASTER) Anatomical Region Laterality Modality Lower Extremity, Knee, Musculoskeletal RST LOS, Left Digital Radiography Musculoskeletal ARZ LOS, Muskuloskeletal FLA LOS Specimen (Source) Anatomical Collection Method Collection Time Re ceived Time Location / / Volume Laterality 02/26/2020 8:08 AM WINE MASTER Impressions 02/26/2020 8:37 AM WINE MASTER Medial plate and screw fixation and interposition cement across a comminuted intra-articular left tibial p lateau fracture, with interval healing since 01/21/2020. The fracture lines are partially visible. Stable alignment. No radiographic evidence of hardware loosen ing, migration or fracture. Narrative 02/26/2020 8:37 AM WINE MASTER EXAM: ??DX KNEE LEFT 2 VIEWS Procedure [...] Left documented in this encounter Care Teams Integrated Campaign Manager Relationship Specialty Start Date End Date Ro Norton APRN, C.N.P., PCP - General Family Medicine D.N.P. [address] [place] [phone] documented as of this encounter
--- OUTSIDE RECORDS SUMMARY | 2022-01-17 13:12 | XMS_ITS | Encounter Summary ---
:1970 Author Organization [facility] Address [address] [place] [address] Care Team Providers Name Role Phone Ro Norton APRN C.N.Kirsty, D.N.P. Primary Care Provider Encounter Details Date Type Department Care Team Description 11/15/2019 Orders Only Department of Orthopedic Serafin Lang M.D. Surgery in [place], [address] [place] [address] [place] [phone] [place] [address] [phone] Social History Tobacco Use Types Packs/Day Years [...] do you attend jain or Never 2021 moravian services? Do you [...] Appointment Radiology Ro Norton APRN, C.N.P., D.N.P. [address] [phone] (Wo rk) 01/27/2022 Clinical Support Integrative Medicine [place], Sohan y [address] [place], [place] [phone] (Wo rk) documented as of this encounter Visit Diagnoses Not on filedocumented in this encounter Care Teams Shipwright Helper Relationship Specialty Start Date End Date Ro Norton APRN, C.N.P., PCP - General Family Medicine D.N.P. [address] [phone] documented as of this encounter
--- OUTSIDE RECORDS SUMMARY | 2022-01-17 13:12 | XMS_ITS | Encounter Summary ---
:1970 Author Organization [facility] Address [address] [place] [address] Care Team Providers Name Role Phone Ro Norton APRN, C.N.P., D.N.P. Primary Care Provider Reason for Visit Reason Comments COVID Inquiry Encounter Details Date Type Department Care Team Description 11/12/2019 Clinical Communication Hospital Outpatient Rebecca Upton, COVID Inquiry Procedure Center in [place], [place] [phone] [address] [facility] (Work) [place] [address] Social History Tobacco Use Types [...] do you attend catholic or Never 2021 sikh services? Do you [...] Appointment Radiology Ro Norton APRN, C.N.P., D.N.P. [address] [phone] (Wo rk) 01/27/2022 Clinical Support Integrative Medicine [place], Iv y [address] [place], [place] [phone] (Wo rk) documented as of this encounter Visit Diagnoses Not on filedocumented in this encounter Care Teams Air Bag Builder Relationship Specialty Start Date End Date Ro Norton APRN, C.N.P., PCP - General Family Medicine D.N.P. [address] [phone] documented as of this encounter
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
--- OUTSIDE RECORDS SUMMARY | 2022-01-17 13:12 | XMS_ITS | Encounter Summary ---
:1970 Author Organization [facility] Address [address] [place] [address] Care Team Providers Name Role Phone Ro Norton APRN, C.N.P., D.N.P. Primary Care Provider Encounter Details Date Type Department Care Team Description 05/07/2020 Orders Only [facility] PCP [facility] Sa rosalinda Erickson M.D. [address] [place], [place] [phone] (Wo rk) Social History [...] do you attend methodist or Never 2021 catholic services? Do you [...] Appointment Radiology Ro Norton APRN, C.N.P., D.N.P. [phone] [place] [phone] (Wo rk) 01/27/2022 Clinical Support Integrative Medicine Haris, Iv y [address] [place], [place] [phone] (Wo rk) documented as of this encounter Visit Diagnoses Not on filedocumented in this encounter Care Teams Cytotechnologist Relationship Specialty Start Date End Date Ro Norton APRN, C.N.P., PCP - General Family Medicine D.N.P. [address] [phone] documented as of this encounter
--- OUTSIDE RECORDS SUMMARY | 2022-01-17 13:12 | XMS_ITS | Encounter Summary ---
:1970 Author Organization [facility] Address [address] [place] [address] Care Team Providers Name Role Phone Ro Norton APRN C.N.PRaffy, D.N.P. Primary Care Provider Reason for Visit Reason Comments Med Refill oxycodone Encounter Details Date Type Department Care Team Description 11/15/2019 Clinical Communication Department of Raudel Lewis Med Refill Orthopedic Surgery Michael Betancourt (oxycodone) in [place], [address] [place] [address] [place] [phone] [place], [place] [phone] (Work) [phone] Social History Tobacco Use Types Packs/Day Years [...] do you attend catholic or Never 2021 congregational services? Do you [...] would like a refill sent to the [facility] in [place]. She statesshe is also taking gabapentin and Tramadol. She can be reached at [phone] if there are any questions. documented in this encounter Plan of Treatment Upcoming Encounters Date Type Specialty Care Team Description 01/21/2022 Appointment Radiology Ro Norton APRN, C.N.P., D.N.P. [address] [phone] (Amanda goldman) 01/27/2022 Clinical Support Integrative Medicine Haris, Iv y [address] [place], [place] [phone] (Amanda goldman) documented as of this encounter Visit Diagnoses Not on filedocumented in this encounter Care Teams Applications Manager Relationship Specialty Start Date End Date Ro Norton APRN, C.N.P., PCP - General Family Medicine D.N.P. [address] [phone] documented as of this encounter
--- OUTSIDE RECORDS SUMMARY | 2022-01-17 13:12 | XMS_ITS | Encounter Summary ---
:1970 Author Organization [facility] Address [address] [place] [address] Care Team Providers Name Role Phone Ro Norton APRN, C.N.P., D.N.P. Primary Care Provider Encounter Details Date Type Department Care Team Description 11/13/2019 Hospital Encounter Department of Yvon Dill Rib Multiple Radiology, Jose Liao APRN, Closed [facility], in C.N.P., M.S.N. [place], [place] [address] [facility] [address] [place] [phone] Social History Tobacco Use Types Packs/Day Years [...] do you attend religion or Never 2021 spiritism services? Do you [...] Appointment Radiology Ro Norton APRN, C.N.P., D.N.P. [address] [phone] (Wo rk) 01/27/2022 Clinical Support Integrative Medicine Haris, Iv y [facility] RICH [place] [phone] (Wo rk) documented [...] ht documented in this encounter Care Teams Secondary School Teacher Librarian Relationship Specialty Start Date End Date Ro Norton APRN, C.N.P., PCP - General Family Medicine D.N.P. [address] [place] [phone] documented as of this encounter
--- OUTSIDE RECORDS SUMMARY | 2022-01-17 13:12 | XMS_ITS | Encounter Summary ---
:1970 Author Organization [facility] Address [address] [place] [address] Care Team Providers Name Role Phone Ro Norton APRN C.N.PRaffy, D.N.P. Primary Care Provider Encounter Details Date Type Department Care Team Description 02/26/2020 Hospital Encounter Department of Angelita Buchanan Radiology, [facility] C.N.P., M.S.N. Subsequent [place], [place] [address] [facility] [address] [place] [phone] Social History Tobacco Use Types Packs/Day Years [...] do you attend orthodoxy or Never 2021 latter day services? Do [...] Appointment Radiology Ro Norton APRN, C.N.P., D.N.P. [address] [place] [phone] (Wo rk) 01/27/2022 Clinical Support Integrative Medicine Haris, Iv y 701 [facility] [place], [place] [phone] (Wo rk) documented as of this encounter Procedures Procedure Name Priority Date/Time Associated Comments Diagnosis DX KNEE LEFT 2 RAD - Routine 02/26/2020 7:55 Fracture Tibial Result s for this VIEWS (most inpatients AM EATING DISORDER PSYCHOLOGIST Plateau Closed procedure are in and all Subsequent Left the results outpatients) section. documented in this encounter Results DX Knee Left 2 Views (02/26/2020 7:55 AM EATING DISORDER PSYCHOLOGIST) Anatomical Region Laterality Modality Lower Extremity, Knee, Musculoskeletal RST LOS, Left Digital Radiography Musculoskeletal ARZ LOS, Muskuloskeletal FLA LOS Specimen (Source) Anatomical Collection Method Collection Time Re ceived Time Location / / Volume Laterality 02/26/2020 8:08 AM EATING DISORDER PSYCHOLOGIST Impressions 02/26/2020 8:37 AM EATING DISORDER PSYCHOLOGIST Medial plate and screw fixation and interposition cement across a comminuted intra-articular left tibial p lateau fracture, with interval healing since 01/21/2020. The fracture lines are partially visible. Stable alignment. No radiographic evidence of hardware loosen ing, migration or fracture. Narrative 02/26/2020 8:37 AM EATING DISORDER PSYCHOLOGIST EXAM: ??DX KNEE LEFT 2 VIEWS Procedure [...] Left documented in this encounter Care Teams Granite Sandblaster Apprentice Relationship Specialty Start Date End Date Ro Norton APRN C.N.P., PCP - General Family Medicine D.N.P. [address] [phone] documented as of this encounter
--- OUTSIDE RECORDS SUMMARY | 2022-01-17 13:12 | XMS_ITS | Encounter Summary ---
:1970 Author Organization [facility] Address [address] [place] [address] Care Team Providers Name Role Phone Ro Norton APRN, C.N.P., D.N.P. Primary Care Provider Reason for Visit Reason Comments COVID Inquiry Encounter Details Date Type Department Care Team Description 12/12/2019 Clinical Communication Hospital Outpatient Rebecca Upton, COVID Inquiry Procedure Center in [place], [place] [phone] [address] [facility] (Work) [place] [phone] Social History Tobacco Use Types [...] do you attend methodist or Never 2021 yarsani services? Do you [...] Appointment Radiology Ro Norton APRN, C.N.P., D.N.P. [address] [phone] (Wo rk) 01/27/2022 Clinical Support Integrative Medicine Haris, Iv y [address] [place], [place] [phone] (Wo rk) documented as of this encounter Visit Diagnoses Not on filedocumented in this encounter Care Teams Engagement Manager Relationship Specialty Start Date End Date Ro Norton APRN, C.N.P., PCP - General Family Medicine D.N.P. [address] [phone] documented as of this encounter
--- OUTSIDE RECORDS SUMMARY | 2022-01-17 13:12 | XMS_ITS | Encounter Summary ---
:1970 Author Organization [facility] Address [address] [place] [address] Care Team Providers Name Role Phone Ro Norton APRN, C.N.P., D.N.P. Primary Care Provider Reason for Visit Reason Comments COVID Inquiry Encounter Details Date Type Department Care Team Description 10/29/2019 Clinical Communication Hospital Outpatient Christopher Amin COVID Inquiry Procedure Center in L, R.N. [place], [place] [phone] [address] [facility] (Work) [place] [phone] Social History Tobacco Use Types [...] do you attend rastafari or Never 2021 jewish services? Do you [...] or slept in a fpc (including now)? Sex Assigned at Date Recorded Female 10/14/2020 12:54 PM CDT documented as of this encounter Plan of Treatment Upcoming Encounters Date Type Specialty Care Team Description 01/21/2022 Appointment Radiology Ro Norton APRN, C.N.P., D.N.P. [address] [phone] (Wo rk) 01/27/2022 Clinical Support Integrative Medicine Haris, Iv y [address] [place], [place] [phone] (Wo rk) documented as of this encounter Visit Diagnoses Not on filedocumented in this encounter Care Teams Truck Service Technician Relationship Specialty Start Date End Date Ro Norton APRN, C.N.P., PCP - General Family Medicine D.N.P. [address] [phone] documented as of this encounter
--- OUTSIDE RECORDS SUMMARY | 2022-01-17 13:12 | XMS_ITS | Encounter Summary ---
:1970 Author Organization [facility] Address [address] [place] [address] Care Team Providers Name Role Phone Ro Norton APRN C.N.PRaffy, D.N.P. Primary Care Provider Reason for Referral Outpatient (Routine) - Closed Specialty Diagnoses / Procedures Referred By Contact Refer red To Contact Orthopedic Surgery Kelli Mojica [place] [facility] [place] M.D., M.E. [address] [place] [phone] Referral ID Status Reason Start Date Expiration Date Visits Requ ested Visits Authorized [id number] Closed 12/13/2019 12/12/2020 1 1 Reason for Visit Reason Comments Follow-up Outpatient (Routine) - Closed Specialty Diagnoses / Procedures Referred By Contact Refer red To Contact Orthopedic Surgery Angelita Buchanan APRN, [place] [facility] [place] C.N.P., M.S.N. [address] [place] [phone] Referral ID Status Reason Start Date Expiration Date Visits Requ ested Visits Authorized [id number] Closed 10/24/2019 10/23/2020 1 1 Encounter Details Date Type Department Care Team Description 12/13/2019 [facility] Wander Brush T ibial Orthopedic Surgery in Michael [place], [place] 200 [facility] Subsequent Left [address] [place], [place] (Primary Dx) [place] [phone] Social History Tobacco Use Types Packs/Day Years [...] do you attend scientology or Never 2021 orthodox services? Do you [...] Appointment Radiology Ro Norton APRN, C.N.P., D.N.P. [address] [phone] (Wo rk) 01/27/2022 Clinical Support Integrative Medicine Sohan Carballo y 701 [facility] Carlos Alberto [place] [phone] (Wo rk) Scheduled Referrals Name Type Priority Associated Order Schedule Diagnoses Orthopedic Surgery Outpatient Referral Routine Ex pected: office visit 01/24/2020 (clinic) (Approximate), Expires: 12/12/2022 documented as of this encounter Results DX Knee Left Standing 1-2 Views (01/21/2020 9:29 AM CNC SUPERVISOR) Anatomical Region Laterality Modality Lower Extremity, Knee, Musculoskeletal RST LOS, Left Digital Radiography Musculoskeletal ARZ LOS, Muskuloskeletal FLA LOS Specimen (Source) Anatomical Collection Method Collection Time Re ceived Time Location / / Volume Laterality 01/21/2020 9:32 AM CNC SUPERVISOR Impressions 01/21/2020 9:37 AM CNC SUPERVISOR Interposition cement and medial plate and screw fixation across a healing comminuted intra-articular left tibial plateau fracture. No change in alignment. Narrative 01/21/2020 9:37 AM CNC SUPERVISOR EXAM: ??DX KNEE LEFT STANDING 1-2 VIEWS [...] Left documented in this encounter Care Teams Breaker Operator Relationship Specialty Start Date End Date Ro Norton APRN, C.N.P., PCP - General Family Medicine D.N.P. [address] [place] [phone] documented as of this encounter
--- OUTSIDE RECORDS SUMMARY | 2022-01-17 13:13 | XMS_ITS | Encounter Summary ---
:1970 Author Organization [facility] Address [address] [place] [address] Care Team Providers Name Role Phone Ro Norton APRN C.N.Kirsty, D.N.P. Primary Care Provider Reason for Referral Outpatient (Routine) - Closed Specialty Diagnoses / Procedures Referred By Contact Refer red To Contact Orthopedic Surgery Angelita Buchanan APRN, [place] C.N.Kirsty, M.S.N. [address] [place] [phone] Referral ID Status Reason Start Date Expiration Date Visits Requ ested Visits Authorized [id number] Closed 10/24/2019 10/23/2020 1 1 Scheduling Instructions Sems - est utpatient (Routine) - Closed Specialty Diagnoses / Procedures Referred By Contact Refer red To Contact Orthopedic Surgery Angelita Buchanan APRN, [place] [facility] [place] C.N.PRfafy, M.S.N. [address] [place] [phone] Referral ID Status Reason Start Date Expiration Date Visits Requ ested Visits Authorized [id number] Closed 10/24/2019 10/23/2020 1 1 Scheduling Instructions Sems - est - 830 am Encounter Details Date Type Department Care Team Description 10/24/2019 Orders Only Department of [place], Angelita Conde, Fracture T ibial Orthopedic Surgery in MORGAN, CRaffyNRaffyP., Plate au Closed Initial [place], [place] M.S.N. Left (Primary Dx) [address] [place] [phone] [phone] Social History Tobacco Use Types Packs/Day Years [...] do you attend evangelical or Never 2021 moravian services? Do you [...] Appointment Radiology Ro Norton APRN, C.N.P., D.N.P. [address] [place] [phone] (Wo rk) 01/27/2022 Clinical Support Integrative Medicine Haris, Iv y [address] [place], [place] [phone] (Wo rk) Scheduled Referrals [...] eft documented in this encounter Care Teams Auction Block Clerk Relationship Specialty Start Date End Date Ro Norton APRN, C.N.Taylor., PCP - General Family Medicine D.N.P. [address] [phone] documented as of this encounter
--- OUTSIDE RECORDS SUMMARY | 2022-01-17 13:13 | XMS_ITS | Encounter Summary ---
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 [place].N.P., D.N.P. LAB MICROBIOLOGY - GENERAL ORDERABLES Performing Organization Address City/[facility] Phon e Number [facility] - [address] [place] [address] Troponin T, Baseline, 5th gen (10/23/2019 [...] LAB BLOOD TROPONI N Performing Organization Address City/[facility] Phon e Number [facility] - [address] [place] [address] Lactate, POCT (10/23/2019 4:14 AM CDT) Analysis Performed At Patho logist Time Signature Lactate, POCT Collected DEFAULT 10/23/2019 SMLX 4:14 AM CDT Specimen Anatomical Collection Method Collection Time Receive d Time (Source) Location / / Volume Laterality Blood (Blood, 10/23/2019 4:14 AM 10/23/19 20 4:14 Venous) CDT AM CDT Phillip Kimbrough M.D. LAB POCT ORDERABLES - DEVICE Performing Organization Address City/[facility]/ZIP [facility] Phon e Number [facility] - 200 [place], [place] [address] [facility] [place] [address] [facility] 200 [facility] (ABNORMAL) Lactate, POCT (10/23/2019 4:13 AM CDT) [...] POCT ORDERABLES - DEVICE Performing Organization Address City/[facility] Phon e Number [facility] [address] [place] [address] PCLX [facility] [place] [address] [facility] 200 [facility] Venous Blood Gas and Electrolytes CG8+, POCT [...] City/State/ZIP Code Phon e Number POC [facility] [address] [place], [place] [address] LABS PCSM [facility] [place] [address] [place] [facility] [address] Ethanol Level, Serum (10/23/2019 4:13 AM CDT) P athologist Signature Ethanol, S <10 <10 mg/dL 10/23/2019 5:17 DTL AM CDT Specimen Anatomical Collection Method Collection Time Receive d Time (Source) Location / / Volume Laterality Blood (Blood, 10/23/2019 4:13 AM 10/23/19 5:04 Venous) CDT AM CDT Phillip Kimbrough M.D. LAB BLOOD NON ADD-ON Performing Organization Address City/[facility] Phon e Number [facility] - [address] Amylase, Total (10/23/2019 4:13 AM CDT) athologist Signature Amylase, Total, 32 26 - 102 10/23/2019 DT S U/L 5:17 AM CDT Specimen Anatomical Collection Method Collection Time Receive d Time (Source) Location / / Volume Laterality Blood (Blood, 10/23/2019 4:13 AM 10/23/19 5:04 Venous) CDT AM CDT Phlilip Kimbrough M.D. LAB BLOOD ADD-ON Performing Organization Address City/[facility] Phon e Number [facility] - [address] hCG (Human Chorionic Gonadotropin), Quantitative, (10/23/2019 [...] Address City/State/ZIP Code Phon e Number [facility] - [address] [place], [place] [address] [place] [address] Type and Screen (with reflex Antibody [...] Address City/State/ZIP Code Phon e Number [facility] - [address] [place], [place] [address] [place] [address] [place] [address] [address] [facility] APTT (Activated Partial Thromboplastin Time) (10/23/2019 4:12 [...] Address City/State/ZIP Code Phon e Number [facility] - [address] [place], [place] [address] [place] [address] Prothrombin Time (PT) (10/23/2019 4:12 AM [...] Address City/State/ZIP Code Phon e Number [facility] - [address] [place], [place] [address] [place] [address] [facility] [address] (ABNORMAL) Basic Metabolic Panel [...] CDT eGFR-Black/Afric >90 >=60 10/23/2019 STMA an Cambodian mL/min/BSA 4:41 AM CDT Comment: ----ADDITIONAL INFORMATION---- [...] M.D. LAB BLOOD ADD-ON Performing Organization Address City/[facility] Phon e Number [facility] - 200 [place] [address] Laboratories-[address] (ABNORMAL) AST (Aspartate Aminotransferase) (10/23/2019 4:12 AM CDT) [facility] Method Time Signature Aspartate 239 (H) 8 - 43 10/23/2019 STMA Aminotransferase U/L 4:41 AM CDT (AST), P Specimen Anatomical Collection Method Collection Time Receive d Time (Source) Location / / Volume Laterality Blood (Blood, 10/23/2019 4:12 AM 10/23/19 4:24 Venous) CDT AM CDT Phillip Kimbrough M.D. LAB BLOOD ADD-ON Performing Organization Address City/[facility] Phon e Number [facility] - 200 [place], [place] [address] [facility] [place] [address] (ABNORMAL) CBC with Differential, Blood (10/23/2019 4:12 AM CDT) [facility] Method Time Signature Hemoglobin 12.6 11.6 - [...] Address City/State/ZIP Code Phon e Number [facility] - [address] [place], [place] [address] [place] [address] [facility] [address] (ABNORMAL) Thromboelastograph, Kaolin, Blood [...] Address City/State/ZIP Code Phon e Number [facility] - 200 [place], [place] [address] [place] [address] [facility] [address] DX Chest Portable 1 View (10/23/2019 4:06 AM CDT) Anatomical Region Laterality Modality Chest, Thoracic RST LOS, Thoracic ARZ LOS, Thoracic N/A Digital Radiography FLA LOS Specimen (Source) Anatomical Collection Method Collection Time Re ceived Time Location / / Volume Laterality 10/23/2019 4:27 AM CDT Impressions 10/23/2019 6:42 AM CDT No significant change compared to [facility] radiograph from 10/22/2019. Sternotomy. Marked pulmonary [...] VIEW IMPRESSION: No significant change compared to [facility] r adiograph from 10/22/2019. Sternotomy. Marked [...] Gaona RShikha)0830 (Given - Provider: Damaris Ferreira R.N.)1353 (Given - Provider: Damaris Ferreira R.N.)4341 (Given - Provider: Montserrat Boone RRaffyN.) 0215 (Given - Provider: Montserrat Boone R.N.)0809 (Given - Provider: Damaris Ferreira R.N.)1550 (Given - Provider: Damaris Ferreira R.N. - Comment: Patient given mag citrate at 1400-micromedex says no PO integrative medicine physician within 2 hours) 0300 (Given [...] (LOVENOX) (CANCELED) 0830 ( Given - Provider: aDmaris Ferreira R.N.)2001 (Given - Provider: Montserrat Boone [...] mag citrate at 1400-micromedex says no PO integrative medicine physician within 2 hours)2018 (Given - [...] to let mag citrate work first before CT route) 1 enema, rectal, Once, On 10/26/19 [...] Montserrat Boone R.N.) 0519 (Given - Provider: Ethan [...] Provider: Montserrat Boone R.N.)113 (Given - Provider: Damaris Ferreira R.N.)1640 (Given [...] documented as of this encounter Care Teams Inter Fold Roll Cutter Relationship Specialty Start Date End Date Ro Norton APRN, C.N.P., PCP - General Family Medicine D.N.P. [address] [phone] documented as of this encounter
--- OUTSIDE RECORDS SUMMARY | 2022-01-17 13:13 | XMS_ITS | Encounter Summary ---
:1970 Author Organization [facility] Address [address] [place] [address] Care Team Providers Name Role Phone Ro Norton APRN, C.N.P., D.N.P. Primary Care Provider Encounter Details Date Type Department Care Team Description 10/24/2019 Orders Only [facility] PCP [facility] MNT Ro Norton APRN, C.N.P., D.N.P. [address] [place] [phone] (Wo rk) Social History Tobacco Use Types [...] do you attend buddhism or Never 2021 yazidism services? Do you [...] Appointment Radiology Ro Norton APRN, C.N.P., D.N.P. [address] [phone] (Wo rk) 01/27/2022 Clinical Support Integrative Medicine Haris, Iv y [address] [place], [place] [phone] (Wo rk) documented as of this encounter Visit Diagnoses Not on filedocumented in this encounter Care Teams Hand Baseball Sewer Relationship Specialty Start Date End Date Ro Norton APRN, C.N.P., PCP - General Family Medicine D.N.P. [address] [phone] documented as of this encounter
--- OUTSIDE RECORDS SUMMARY | 2022-01-17 13:13 | XMS_ITS | Encounter Summary ---
:1970 Author Organization [facility] Address [address] [place] [address] Care Team Providers Name Role Phone Ro Norton APRN, C.N.P., D.N.P. Primary Care Provider Encounter Details Date Type Department Care Team Description 10/24/2019 Anesthesia Event RST ROMB MAIN OR Janel Hoff M.D. [address] [place] [phone] [address] [facility] Hilda Bello [place], [place] [phone] Anesthesia Record Procedure Summary Procedure Name Responsible Anesthesia Start Anesthesia Stop Time Anesthesiologist Time OPEN REDUCTION, Janel Hoff M.D. 10/24/19 0803 10/24/19 1 125 INTERNAL FIXATION TIBIA. (Left: Leg Lower) Events Date Time Event Comment 10/24/2019 0755 Monitored Transport Anesthesia p ick up from 7MB 514, 02 per nasal cannula, h ep lock x2, ECG, BP, pulse ox 0755 Anesthesia [employer] Agent Team Member Anesthesia tr ansport medically necessary Report received [...] h andoff to the receiving staff [facility] we 1. Identified the patient 2. Ident [...] Prep: Chlorhexidine (Preferred); Inserted by: Mile Love TRAIN MASTER; Insertion Attempts: 1; Removal Date: 10/27/19; Removal [...] Bello, Junie Bello, Time: 08 (created via REAL ESTATE LOAN PROCESSOR, TRAIN MASTER REAL ESTATE LOAN PROCESSOR, JUAN MANUEL BENSON procedure documentation); Mask Ventilation: Easy mask; Type: Standard ETT; Single Lumen Tube Size: 7 mm; Cuffed: Yes; Blade Size: Han 2; Location: Oral; Removal Date: 10/24/19; Removal Time: 105 Arterial Line Placement Date: 10/24/19855 by 10/24/19 1632 b y 10/24/19; Placemnt Time: Hilda Bello, Hipolito sales, Farshad W, 08 (created via REAL ESTATE LOAN PROCESSOR, SILVIA R.NRaffy procedure documentation); Orientation: Right; Location: [...] do you attend mu-ism or Never 2021 scientology services? Do you [...] Procedure Summary Date: 10/24/19 Room / Location: [place] [address] ROMB 1630 / [facility] in [place], [place] Anesthesia Start: 0803 Anesthesia Stop: 1124 [...] Location: OR 410 ROMB 01 1630 / [facility] in [place], [place] Provider: Raudel Lewis M.D. Pertinent components [...] with patient /legal guardian or through an interpreter translator. Risks/Benefits/Alternatives of Blood transfusion discussed with patient [...] Appointment Radiology Ro Norton APRN, C.N.P., D.N.P. [address] [phone] (Wo rk) 01/27/2022 Clinical Support Integrative Medicine Sohan Carballo y [address] [place], [place] [phone] (Wo rk) documented as of this encounter Procedures Procedure Name Priority Date/Time Associated Comments Diagnosis LDA ANE ENDOTRACHEAL Routine 10/24/2019 10:09 Res ults for this AIRWAY AM CDT procedure are i n the results section. LDA ANE ARTERIAL LINE Routine 10/24/2019 10:05 Re sults for this INSERTION AM CDT procedure are i n the results section. AZ ARTL CATH/CNULA Routine 10/24/2019 10:05 Resul ts [...] no complications Janel Hoff M.D. ANESTHESIA ORDERABLES [place] ARTL CATH/CNULA MONITOR PERC, LDA ANE ARTERIAL [...] arterial: none COMMENTS Attempt R/L radial per TRAIN MASTER, placed per Dr. Naavrro Janel Hoff M.D. PROCEDURE/MINOR SURGICAL ORD ERABLES [...] g documented in this encounter Care Teams Line Inspector Relationship Specialty Start Date End Date Ro Norton APRN, C.N.P., PCP - General Family Medicine D.N.P. [address] [phone] documented as of this encounter
--- OUTSIDE RECORDS SUMMARY | 2022-01-17 13:14 | XMS_ITS | Encounter Summary ---
:1970 Author Organization [facility] Address [address] [place] [address] Care Team Providers Name Role Phone Ro Norton APRN C.N.Kirsty, D.N.P. Primary Care Provider Encounter Details Date Type Department Care Team Description 10/23/2019 Documentation Department of Orthopedic Elyssa Lewis M.D. Surgery in [place], [facility] [address] [place], [place] [address] [place] [phone] [place] [address] [phone] Social History Tobacco Use Types Packs/Day Years [...] do you attend rastafari or Never 2021 anabaptism services? Do you [...] a [place] [facility] [place] (including now)? Sex Assigned at Date Recorded [...] Appointment Radiology Ro Norton APRN, C.N.P., D.N.P. [address] [phone] (Wo rk) 01/27/2022 Clinical Support Integrative Medicine Haris, Iv y [address] [place], [place] [phone] (Wo rk) documented as of this encounter Visit Diagnoses Not on filedocumented in this encounter Additional Health Concerns Infection Onset Date Last Indicated Resolved Time COVID19 Pending 10/23/2019 10/23/2019 10/23/2019 10:32 AM CDT documented as of this encounter Care Teams Hot Cell Technician Relationship Specialty Start Date End Date Ro Norton APRN, C.N.P., PCP - General Family Medicine D.N.P. [address] [address] [place] [phone] documented as of this encounter
--- OUTSIDE RECORDS SUMMARY | 2022-01-17 13:14 | XMS_ITS | Encounter Summary ---
:1970 Author Organization [facility] Address [address] [place] [address] Care Team Providers Name Role Phone Ro Norton APRN C.N.PRaffy, Katelynn.N.P. Primary Care Provider Encounter Details Date Type Department Care Team Description 08/07/2019 Clinical Communication Department of [facility] Ro Norton, Medicine, [place] MORGAN C.N.PRaffy, Clinic, in [place] [address] [phone] Social History Tobacco Use Types Packs/Day Years [...] do you attend lutheran or Never 2021 roman catholic services? Do [...] or slept in a residential (including now)? Sex Assigned at Date Recorded [...] the phone between 7 am-6 pm, Monday-Monday. [place]: [phone] [place]: [phone] [place]: [phone] [place]: [phone] [place]: [phone] [place]: [phone] [place] or [place] clinics: [phone] [place], [place], or [place] clinics: [phone] [place]:[phone] [place]: [phone] Thank you for trusting your health care to [facility]. documented in this encounter Plan of Treatment Upcoming Encounters Date Type Specialty Care Team Description 01/21/2022 Appointment Radiology Ro Norton APRN, C.N.P., D.N.P. [address] [phone] (Wo rk) 01/27/2022 Clinical Support Integrative Medicine Haris, Iv y [address] [place], [place] [phone] (Wo rk) documented as of this encounter Visit Diagnoses Not on filedocumented in this encounter Care Teams Soybean Grower Relationship Specialty Start Date End Date Ro Norton APRN, C.N.P., PCP - General Family Medicine D.N.P. [address] [phone] documented as of this encounter
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
--- OUTSIDE RECORDS SUMMARY | 2022-01-17 13:14 | XMS_ITS | Encounter Summary ---
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 Healthcare Providers: https://www.fda.gov/media/628613/downloa d Fact Sheet for Patients: https://www.fda.gov/media/716536/downloa d Specimen Anatomical Collection Method Collection Time Receive d Time (Source) Location / / Volume Laterality Varies 10/23/2019 5:31 AM 0 6:00 (Nasopharynx) CDT AM CDT Bolivar Vinson APRN.N.P., D.N.P. LAB MICROBIOLOGY - GENERAL ORDERABLES Performing Organization Address City/[facility]/ZIP Code Phon e Number [facility] - [address] [place], [place] [address] [place] [address] [facility] [address] Troponin T, Baseline, 5th [...] LAB BLOOD TROPONI N Performing Organization Address [facility] Phon e Number [facility] - [address] [facility] [address] Lactate, POCT (10/23/2019 4:14 AM CDT) Analysis Performed At [facility] logist Time Signature Lactate, POCT Collected DEFAULT 10/23/2019 SMLX 4:14 AM CDT Specimen Anatomical Collection Method Collection Time Receive d Time (Source) Location / / Volume Laterality Blood (Blood, 10/23/2019 4:14 AM 10/23/19 20 4:14 Venous) CDT AM CDT Phillip Kimbrough M.D. LAB POCT ORDERABLES - DEVICE Performing Organization Address [facility]/RUST Code Phon e Number [facility] - 200 [place] [address] [facility] SML[facility] [address] (ABNORMAL) Lactate, POCT (10/23/2019 4:13 AM [...] POCT ORDERABLES - DEVICE Performing Organization Address City/[facility]/ZIP Code Phon e Number POC [facility] [address] [place] [address] PCLX [facility] [place] [place] [address] [place] [facility] 200 [facility] Venous Blood Gas and Electrolytes CG8+, [...] POCT ORDERABLES - DEVICE Performing Organization Address [facility]/ZIP [facility] Phon e Number POC RST [facility] [address] [place], [place] [address] [place] [address] [facility] [address] [place] [address] Ethanol Level, Serum (10/23/2019 4:13 AM CDT) athologist Signature Ethanol, S <10 <10 mg/dL 10/23/2019 5:17 DTL AM CDT Specimen Anatomical Collection Method Collection Time Receive d Time (Source) Location / / Volume Laterality Blood (Blood, 10/23/2019 4:13 AM 10/23/19 20 5:04 Venous) CDT AM CDT Phillip Kimbrough M.D. LAB BLOOD NON ADD-ON Performing Organization Address City/[facility]/ZIP Code Phon e Number [facility] - [address] [place], [place] [address] [place] [address] [facility] [address] Amylase, Total (10/23/2019 4:13 AM CDT) P athologist Signature Amylase, Total, 32 26 - 102 10/23/2019 DTL S U/L 5:17 AM CDT Specimen Anatomical Collection Method Collection Time Receive d Time (Source) Location / / Volume Laterality Blood (Blood, 10/23/2019 4:13 AM 10/23/19 20 5:04 Venous) CDT AM CDT Phillip Kimbrough M.D. LAB BLOOD ADD-ON Performing Organization Address City/[facility]/ZIP Code Phon e Number [facility] - [address] [place] [address] [facility] [address] [facility] hCG (Human Chorionic Gonadotropin), Quantitative, (10/23/2019 4:13 [...] Address City/State/ZIP Code Phon e Number [facility] - [address] [place] [address] Type and Screen (with reflex Antibody [...] Address City/State/ZIP Code Phon e Number [facility] - [address] [place] [address] APTT (Activated Partial Thromboplastin Time) (10/23/2019 4:12 AM CDT) athologist Signature Activated 27 25 - 37 sec 10/23/2019 [facility] Partial 4:47 AM CDT Thrombopl Time, P Specimen Anatomical Collection Method Collection Time Receive d Time (Source) Location / / Volume Laterality Blood (Blood, 10/23/2019 4:12 AM 10/23/19 20 4:24 Venous) CDT AM CDT Phillip Kimbrough M.D. LAB BLOOD ADD-ON Performing Organization Address [facility] Phon e Number [facility] - [address] Prothrombin Time (PT) (10/23/2019 4:12 AM CDT) athologist Signature Prothrombin 12.4 9.4 - 12.5 10/23/2019 [facility] Time, P sec 4:30 AM CDT INR 1.1 0.9 - 1.1 10/23/2019 [facility] 4[facility]30 AM CDT Comment: ----ADDITIONAL INFORMATION---- Standard intensity warfarin therapeutic range: 2.0 to 3.0 ?? High intensity warfarin therapeutic rang e: 2.5 to 3.5 Specimen Anatomical Collection Method Collection Time Receive d Time (Source) Location / / Volume Laterality Blood (Blood, 10/23/2019 4:12 AM 10/23/19 20 4:24 Venous) CDT AM CDT Phillip Kimbrough M.D. LAB BLOOD ADD-ON Performing Organization Address City/[facility] Phon e Number [facility] - [address] (ABNORMAL) Basic Metabolic Panel (10/23/2019 4:12 [...] CDT eGFR-Black/Afric >90 >=60 10/23/2019 [facility] an [place] Citizen mL/min/BSA 4:41 AM CDT Comment: ----ADDITIONAL INFORMATION---- [...] Address City/State/ZIP Code Phon e Number [facility] - [address] [place], [place] [address] [place] [address] [facility] [address] (ABNORMAL) AST (Aspartate Aminotransferase) (10/23/2019 4:12 AM CDT) [facility] gist Method Time Signature Aspartate 239 (H) 8 - 43 10/23/2019 [facility] Aminotransferase U/L 4:41 AM CDT (AST), P Specimen Anatomical Collection Method Collection Time Receive d Time (Source) Location / / Volume Laterality Blood (Blood, 10/23/2019 4:12 AM 09/02/20 20 4:24 Venous) CDT AM CDT Phillip Kimbrough M.D. LAB BLOOD ADD-ON Performing Organization Address City/State/ZIP Code Phon e Number [facility] - [address] [place], [place] [address] [place] [address] [facility] [address] [facility] (ABNORMAL) CBC with Differential, Blood (10/23/2019 4:12 AM CDT) [facility] Method Time Signature Hemoglobin 12.6 11.6 - [...] M.D. LAB BLOOD ADD-ON Performing Organization Address City/[facility]/RUST Code Phon e Number [facility] - [address] [place], [place] [address] 05 [place] [address] (ABNORMAL) Thromboelastograph, Kaolin, Blood (10/23/2019 4:09 [...] LAB BLOOD NON ADD-ON Performing Organization Address City/[facility]/RUST Code Phon e Number [facility] - [address] [place], [place] [address] 05 [place] [address] DX Chest Portable 1 View (10/23/2019 4:06 AM CDT) Anatomical Region Laterality Modality Chest, Thoracic RST LOS, Thoracic ARZ LOS, Thoracic N/A Digital Radiography FLA LOS Specimen (Source) Anatomical Collection Method Collection Time Re ceived Time Location / / Volume Laterality 10/23/2019 4:27 AM CDT Impressions 10/23/2019 6:42 AM CDT No significant change compared to [facility] radiograph from 10/22/2019. Sternotomy. Marked pulmonary [...] VIEW IMPRESSION: No significant change compared to [facility] r adiograph from 10/22/2019. Sternotomy. Marked [...] mag citrate at 1400-micromedex says no PO medical donation professional within 2 hours) 0300 (Given - Provider: [...] mag citrate at 1400-micromedex says no PO medical donation professional within 2 hours)2018 (Given - Provider: Montserrat [...] to let mag citrate work first before [place] route) 1 enema, rectal, Once, On 10/26/19 [...] Ethan BadilloN.) 0519 (Given - Provider: Ethan BadilloN.)1143 (Given - Provider: Ethan TrippNRaffy) 50 mg, [...] as of this encounter Care Teams Body Shop Supervisor Relationship Specialty Start Date End Date Ro Norton APRN, C.N.P., PCP - General Family Medicine D.N.P. [address] [phone] documented as of this encounter
--- OUTSIDE RECORDS SUMMARY | 2022-01-17 13:14 | XMS_ITS | Encounter Summary ---
:1970 Author Organization [facility] Address [address] [place] [address] Care Team Providers Name Role Phone Ro Norton APRN C.N.Kirsty, D.N.P. Primary Care Provider Encounter Details Date Type Department Care Team Description 06/04/2019 E-Visit [facility] Paige Cooley, RE: E-Visit Submission: Care at the [place] MORGAN, C.N.PRaffy, [facility] Building on the 4th D.N.P. Floor [address] [place] [address] [address] [place] [phone] Social History Tobacco Use Types Packs/Day Years [...] do you attend sikh or Never 2021 uatsdin services? Do you [...] Appointment Radiology Ro Norton APRN, C.N.P., D.N.P. [address] [phone] (Wo rk) 01/27/2022 Clinical Support Integrative Medicine Haris, Iv y [address] [place], [place] [phone] (Wo rk) documented as of this encounter Visit Diagnoses Diagnosis Rhinitis - Primary documented in this encounter Care Teams Hull Inspector Relationship Specialty Start Date End Date Ro Norton APRN, C.N.P., PCP - General Family Medicine D.N.P. [address] [phone] documented as of this encounter
--- OUTSIDE RECORDS SUMMARY | 2022-01-17 13:14 | XMS_ITS | Encounter Summary ---
:[address] [facility] Address [address] [place] [address] Care Team Providers Name Role Phone Unavailable Primary Care Provider Unavailable Reason for Visit Reason Onset Date Comments Pre-visit Testing Orders 06/04/2018 Encounter Details Date Type Department Care Team Description 06/04/2018 Clinical Department of Sarah, Pre-visit Test ing Communication Cardiovascular Tim Cabrera [facility] Medicine in .[place], [place] [address] [facility] [address] [place] [phone] Social History Tobacco Use Types Packs/Day Years [...] do you attend hindu or Never 2021 church services? Do you [...] Appointment Radiology Ro Norton, MORGAN, C.N.P., D.N.P. [address] [phone] (Amanda goldman) 01/27/2022 Clinical Support Integrative Medicine Sohan Carballo y [address] [place], [place] [phone] (Amanda goldman) documented as of this encounter Visit Diagnoses Diagnosis Hypertension Pulmonary (HCC) - Primary documented in this encounter
--- OUTSIDE RECORDS SUMMARY | 2022-01-17 13:14 | XMS_ITS | Encounter Summary ---
:1970 Author Organization [facility] Address [address] [place] [address] Care Team Providers Name Role Phone Ro Norton APRN C.N.P., D.N.P. Primary Care Provider Encounter Details Date Type Department Care Team Description 07/08/2019 Orders Only RST PCP HLTH MNT Ro Norton, Screen ing Mammogram Breast Cancer; MORGAN C.N.P., D. N.P. Screening Examination Diabetes Mellitus; [address] [place] [address] [place] [phone] (Wo rk) Social History Tobacco Use Types [...] do you attend sikhism or Never 2021 jewish services? Do you [...] or slept in a assisted (including now)? Sex Assigned at Date Recorded Female 10/14/2020 12:54 PM CDT documented as of this encounter Plan of Treatment Upcoming Encounters Date Type Specialty Care Team Description 01/21/2022 Appointment Radiology Ro Norton APRN, C.N.P., D.N.P. [address] [phone] (Wo rk) 01/27/2022 Clinical Support Integrative Medicine Haris, Iv y [address] [place], [place] [phone] (Wo rk) documented as of this encounter Visit Diagnoses Diagnosis Screening Mammogram Breast Cancer Screening Examination Diabetes Mellitus Screening Lipid documented in this encounter Care Teams Loading Checker Relationship Specialty Start Date End Date Ro Norton APRN, C.N.P., PCP - General Family Medicine D.N.P. [address] [phone] documented as of this encounter
--- OUTSIDE RECORDS SUMMARY | 2022-01-17 13:14 | XMS_ITS | Encounter Summary ---
:1970 Author Organization [facility] Address [address] [place] [address] Care Team Providers Name Role Phone Ro Norton APRN, C.N.P., D.N.P. Primary Care Provider Reason for Referral Outpatient (Routine) - Closed Specialty Diagnoses / Procedures Referred By Contact Refer red To Contact Family Medicine Diagnoses Chronic Obstructive Pulmonary Disease Exacerbation (HCC) Ro Norton, [facility] MORGAN C.N.P., D.N.P. [address] [place] [phone] Referral ID Status Reason Start Date Expiration Date Visits Requ ested Visits Authorized [id number] Closed 05/07/2019 05/06/2020 1 1 Reason for Visit Reason Comments Establish Care needs meds Appointment Request (Routine) - Closed Specialty Diagnoses / Procedures Referred By Contact Refer red To Contact Family Medicine Referral ID Status Reason Start Date Expiration Date Visits Requ ested Visits Authorized [id number] Closed 05/06/2019 05/05/2020 1 1 Encounter Details Date Type Department Care Team Description 05/07/2019 Comprehensive Visit Department of Ro Norton ic Obstructive Pulmonary Disease Exacerbation (HCC) (Primary Dx); Family Medicine, MORGAN Ansari, Eusebia moreira Pulmonary Hypertension (HCC) [place] C.N.P., D.N.P. Clinic, in [place] [address] [address] [place], [place] [phone] (Work) [phone] Social History Tobacco Use Types Packs/Day Years [...] do you attend lutheran or Never 2021 scientologist services? Do you [...] for medication refills. She recently moved from [place], and is out of her inhalers for management of her emphysema. Patient states that she was diagnosed with COPD, pulmonary hypertension and a hole in her heart. She states she had heart surgery to repair the swollen her heartseveral years ago in [place]. She does state that she was advised [...] Specialty Care Team Description 01/21/2022 Appointment Radiology oR Norton APRN, Bolivar.N.P., D.N.P. [address] [phone] (Wo rk) 01/27/2022 Clinical Support Integrative Medicine Haris, Sohan y 701 [facility] [place] [phone] (Wo rk) Scheduled Orders Name Type Priority Associated Diagnoses Order S chedule Pulmonary Function PFT Routine Chronic Obstructive Ex pected: 05/07/2019 Tests Pulmonary Disease (Approxima te), Exacerbation (HC C) Expires: 05/06/2022 Other Secondary Pulmonary Hypertension (HCC) Scheduled Referrals Name Type Priority Associated Diagnoses Order S [facility] Family Medicine Outpatient Referral Routine Chronic Obstructiv e Expected: office visit Pulmonary Disease 08/07/2019 (clinic) Exacerbation (HCC) (Approxim ate), Expires: 05/06/2022 documented as of this encounter Visit Diagnoses Diagnosis Chronic Obstructive Pulmonary Disease Ex acerbation (HCC) - Primary Other Secondary Pulmonary Hypertension ( HCC) documented in this encounter Care Teams Foundry Finisher Relationship Specialty Start Date End Date Ro Norton APRN, C.N.P., PCP - General Family Medicine D.N.P. [address] [place] [phone] documented as of this encounter
--- OUTSIDE RECORDS SUMMARY | 2022-01-17 13:14 | XMS_ITS | Encounter Summary ---
:1970 Author Organization [facility] Address [address] [place] [address] Care Team Providers Name Role Phone Ro Norton APRN C.N.P., D.N.P. Primary Care Provider Reason for Visit Reason Comments Communication please triage Echo. Encounter Details Date Type Department Care Team Description 05/28/2019 Clinical Department of [place], Communication Communication Cardiovascular Kim Cabrera, (please tria ge Diseases in [place], R.NRaffy Echo. ) [address], [phone] [place] [phone] Social History Tobacco Use Types Packs/Day [...] do you attend jew or Never 2021 shinto services? Do you [...] or slept in a alf (including now)? Sex Assigned at Date Recorded [...] for medication refills. She recently moved from [place], and is out of her inhalers for management of her emphysema. Patient states that she was diagnosed with COPD, pulmonary hypertension and a hole in her heart. She states she had heart surgery to repair the swollen her heart several years ago in [place]. She does state that she was advised [...] Triage echo need ordered by Ro Norton SIGNALS COLLECTOR/ANALYST. No visit scheduled with Organic Section Technical Lead. She ordered on 05/07/19 with visit for [...] Appointment Radiology Ro Norton APRN, C.N.P., D.N.P. [address] [phone] (Wo rk) 01/27/2022 Clinical Support Integrative Medicine Haris, Iv y [address] [place], [place] [phone] (Wo rk) documented as of this encounter Visit Diagnoses Not on filedocumented in this encounter Care Teams Tractor Mechanic Relationship Specialty Start Date End Date Ro Norton APRN, C.N.P., PCP - General Family Medicine D.N.P. [address] [phone] documented as of this encounter
[2022-01-17 14:20] VITALS: BP 134/100; PULSE 86; RESP 22; O2SAT 87
[2022-01-17] MEDS: ALBUTEROL SULFATE 2.5 MG/3 ML VIAL.NEB NEB (14:39)
--- NOTE | 2022-01-17 14:41 | ED.NURSE ---
pt sats 81%, pt asymptomatic. pt said dr. biggs was going to give her another neb. dr. biggs ordered albuterol neb. during neb sats 78%, pt continues to be asymptomatic, talking in sentences, on phone.
== END 2022-01-17 15:28 | disposition home or self-care (01) ==
PROVIDERS: Emergency Provider Emergency Medicine Emergency Medical Services
DX: J44.1 Chronic obstructive pulmonary disease with (acute) exacerbation (principal)
CPT/HCPCS: 71045; 94640; 94761; 99284

== ENCOUNTER 2022-01-30 19:04 | Emergency (ER) | payer MEDICAID, SELFPAY ==
[2022-01-30] MEDS: IPRAT-ALBUT 0.5-2.5 MG/3 ML NEB 1 NEB IH (19:15)
[2022-01-30 19:17] VITALS: BP 170/90; PULSE 102; RESP 18; TEMP 36.7; O2SAT 70; BMI 23.7
[2022-01-30 19:43] VITALS: O2SAT 78
[2022-01-30 19:44] VITALS: O2SAT 78
[2022-01-30 19:50] VITALS: O2SAT 78
--- OUTSIDE RECORDS SUMMARY | 2022-01-30 19:54 | XMS_ITS | Encounter Summary ---
:1970 Author Organization [facility] Address [address] [place] [address] Care Team Providers Name Role Phone Ro Norton APRN C.N.P., D.N.P. Primary Care Provider Reason for Visit Reason Comments Leg Swelling Pt comes in for evaluation o f lower leg edema and facial swelling. This is different from Monday' s visit, per pt report. Encounter Details Date Type Department Care Team Description 01/07/2022 Emergency [facility] Pj Jones F luid Overload Unspecified (Primary Dx); Department C.N.P. Edema Leg [address] [place] [address] [address] [place], [place] Juaquin Martínez [address] [place], [place] [phone] (Wo rk) Social History Tobacco Use [...] do you attend [employer]ist or Never 2021 [employer] services? Do you [...] Comments Blood Pressure 116/80 01/07/2022 8:00 PM CONFERENCE PRODUCER Pulse 93 01/07/2022 8:00 PM CONFERENCE PRODUCER Temperature 36.4 ??C (97.5 ??F) 01/07/2022 7:31 PM CONFERENCE PRODUCER Respiratory Rate 22 01/07/2022 8:00 PM CONFERENCE PRODUCER Oxygen Saturation 85% 01/07/2022 8:00 PM CONFERENCE PRODUCER Inhaled Oxygen Concentration - - Weight 72.4 kg (159 lb 9.8 oz) 01/07/2022 7:26 PM CONFERENCE PRODUCER Height - - Body Mass Index 22.42 [...] any chest pain. Thank you for utilizing [facility] for your care! ERENCE PRODUCER documented in this encounter Medications at Time [...] 8. Agitated saline contrast administered. 9. No [id number] shunt at atrial level at rest or with Valsalva release. 10. No intrapulmonary shunt. History provided by: Patient information officer needed/used: no REVIEW OF SYSTEMS Constitutional: Negative [...] - RIGHT; Surgeon: Moon Fields M.D.; Location: [facility] NITRIC OXIDE STUDY N/A 09/29/2020 Procedure: NITRIC OXIDE STUDY; Surgeon: Moon Fields M.D.; Location: [facility] CCL OPEN REDUCTION INTERNAL FIXATION TIBIA Left [...] Specialty: Family Medicine Relationship: PCP - General [address] [place] [phone] Next Steps: Follow up in 1 week(s) Instructions: As needed Pj Jones, GENNY, ORNAMENTAL PAINTER, RETAIL AND PROMOTIONS COORDINATOR-C, AGACNP-BC, ENP-C Emergency Medicine Pj Jones, C.N.P. 01/07/222050 ERENCE PRODUCER documented in this encounter Plan of Treatment Not on filedocumented as of this encounter Procedures Procedure Name Priority Date/Time Associated Comments Diagnosis DX CHEST AP OR PA RAD - Semiurgent 01/07/2022 8:09 Res ults for AND LATERAL 2 VIEWS (Fast; most ED PM CONFERENCE PRODUCER this p rocedure patients; some are in the inpatients) results section. NT-PRO B-TYPE STAT 01/07/2022 8:01 Results for NATRIURETIC PEPTIDE PM CONFERENCE PRODUCER this pro cedure (BNP), S are in the results section. CBC WITHOUT STAT 01/07/2022 8:01 Results for DIFFERENTIAL, B PM CONFERENCE PRODUCER this procedu re are in the results section. COMPREHENSIVE STAT 01/07/2022 8:01 Results for METABOLIC PANEL, S/P PM CONFERENCE PRODUCER this pr ocedure are in the results section. documented in this encounter Results DX Chest AP or PA and Lateral 2 Views (01/07/2022 8:09 PM CONFERENCE PRODUCER) Anatomical Region Laterality Modality Chest, Thoracic RST LOS, Thoracic ARZ LOS, Thoracic N/A Digital Radiography FLA LOS Specimen (Source) Anatomical Collection Method Collection Time Re ceived Time Location / / Volume Laterality 01/07/2022 8:14 PM CONFERENCE PRODUCER Impressions 01/07/2022 8:16 PM CONFERENCE PRODUCER Stable cardiomegaly and enlarged central pulmonary arteries, as can be seen with pulmonary hypertension. No pneumothorax. Increased mild bilateral mid and lower lung opacities could be seen with asymmetric pulmonary edema or multifocal pneumonia. Trace bilateral pleural effusions. Comparison: 12/31/2021 Narrative 01/07/2022 8:16 PM CONFERENCE PRODUCER EXAM: DX CHEST AP OR PA AND [...] B-Type Natriuretic Peptide (BNP) (01/07/2022 8:01 PM CONFERENCE PRODUCER) P athologist Signature NT-Pro BNP 2344 (H) <=141 pg/mL 01/07/2022 CNFL 8:35 PM CONFERENCE PRODUCER Comment: NT-proBNP values less than 300 pg/mL [...] (Blood, 01/07/2022 8:01 PM 01/08/20 8:03 Venous) CONFERENCE PRODUCER PM CONFERENCE PRODUCER Pj Jones C.N.P. LAB BLOOD ADD-ON Performing Organization Address City/State/ZIP Code Phon e Number [address] [phone] [place] [address] [address] (ABNORMAL) Comprehensive Metabolic Panel (01/07/2022 8:01 PM CONFERENCE PRODUCER) P athologist Signature Potassium, P 3.8 3.6 - 5.2 01/07/2022 CN[facility] mmol/L 8:24 PM CONFERENCE PRODUCER Sodium, P 138 135 - 145 01/07/2022 [facility] mmol/L 8:24 PM CONFERENCE PRODUCER Chloride, P 96 (L) 98 - 107 01/07/2022 [facility] mmol/L 8:24 PM CONFERENCE PRODUCER Bicarbonate, P 32 (H) 22 - 29 01/07/2022 [facility] mmol/L 8:24 PM CONFERENCE PRODUCER Anion Gap, P 10 7 - 15 01/07/2022 CN[facility] 8:24 PM CONFERENCE PRODUCER BUN (Blood Urea 19 6 - 21 01/07/2022 CNFL Nitrogen), P mg/dL 8:24 PM CONFERENCE PRODUCER Creatinine 0.73 0.59 - 01/07/2022 CN[facility] 1.04 mg/dL 8:24 PM CONFERENCE PRODUCER Estimated GFR >90 >=60 01/07/2022 CN[facility] (eGFR) mL/min/BSA 8:24 PM CONFERENCE PRODUCER Comment: Estimated GFR calculated using the 2020 CKD_EPI creatinine equation. Calcium, Total, P 8.5 (L) 8.6 - 10.0 mg/dL 01/07/2022 8:24 PM CONFERENCE PRODUCER CNFL Glucose, P 126 70 - 140 mg/dL 01/07/2022 8:24 PM CONFERENCE PRODUCER C NFL Protein, Total, P 6.8 6.3 - 7.9 g/dL 01/07/2022 8:24 P M CONFERENCE PRODUCER CNFL Albumin, P 3.0 (L) 3.5 - 5.0 g/dL 01/07/2022 8:24 PM CONFERENCE PRODUCER C NFL Aspartate Aminotransferase 79 (H) 8 - 43 U/L 01/07/2022 8 :24 PM CONFERENCE PRODUCER CNFL (AST), P Alkaline Phosphatase, P 270 (H) 35 - 104 U/L 01/07/2022 8: 24 PM CONFERENCE PRODUCER CNFL Alanine Aminotransferase 100 (H) 7 - 45 U/L 01/07/2022 8:2 4 PM CONFERENCE PRODUCER CNFL (ALT), P Bilirubin, Total, P 0.8 <=1.2 mg/dL 01/07/2022 8:24 PM CONFERENCE PRODUCER CNFL Specimen Anatomical Collection Method Collection Time Receive d Time (Source) Location / / Volume Laterality Blood (Blood, 01/07/2022 8:01 PM 01/08/20 8:03 Venous) CONFERENCE PRODUCER PM CONFERENCE PRODUCER Pj Jones C.N.P. LAB BLOOD ADD-ON Performing Organization Address City/State/[facility] Code Phon e Number [phone] [place] [address] [place] [address] [address] (ABNORMAL) CBC without Differential (01/07/2022 8:01 PM CONFERENCE PRODUCER) [facility] Method Time Signature Hemoglobin 17.3 (H) 11.6 - 01/07/2022 CN[facility] 15.0 g/dL 8:17 PM CONFERENCE PRODUCER Hematocrit 53.5 (H) 35.5 - 01/07/2022 CNFL 44.9 % 8:17 PM CONFERENCE PRODUCER Erythrocytes 5.35 (H) 3.92 - 01/07/2022 CNFL 5.13 8:17 PM CONFERENCE PRODUCER x10(12)/L MCV 100.0 (H) 78.2 - 01/07/2022 CNFL 97.9 fL 8:17 PM CONFERENCE PRODUCER RBC Distrib Width 14.2 12.2 - 01/07/2022 CNFL 16.1 % 8:17 PM CONFERENCE PRODUCER Platelet Count 196 157 - 371 01/07/2022 CNFL x10(9)/L 8:17 PM CONFERENCE PRODUCER Leukocytes 16.1 (H) 3.4 - 9.6 01/07/2022 CNFL x10(9)/L 8:17 PM CONFERENCE PRODUCER Specimen Anatomical Collection Method Collection Time Receive d Time (Source) Location / / Volume Laterality Blood (Blood, 01/07/2022 8:01 PM 01/08/20 8:03 Venous) CONFERENCE PRODUCER PM CONFERENCE PRODUCER Pj Jones C.N.P. LAB BLOOD ADD-ON Performing Organization Address City/State/ZIP Code Phon e Number [facility]- [address] [place] [phone] [place] [address] [address] documented in this encounter Visit Diagnoses Diagnosis Fluid Overload Unspecified - Primary Edema Leg documented in this encounter Administered Medications Inactive Administered Medications - up to 3 most recent administrations Medication Order MAR Action Action Date Dose Rate Site furosemide injection 60 mg (LASIX) Given 01/07/2022 8:09 PM CONFERENCE PRODUCER 60 mg 60 mg, intravenous, Once, On [...] Recently Administered Medications Times are shown in CONFERENCE PRODUCER. Scheduled Medication Order 01/05/2022 01/06/2022 01/07/2022 furosemide [...] /minute. documented in this encounter Care Teams Assistant Floor Covering Printer Relationship Specialty Start Date End Date Ro Norton APRN, C.N.P., PCP - General Family Medicine D.N.P. [id number] [phone] documented as of this encounter
--- OUTSIDE RECORDS SUMMARY | 2022-01-30 19:54 | XMS_ITS | Encounter Summary ---
:1970 Author Organization [facility] Address [address] [place] [address] Care Team Providers Name Role Phone Ro Norton APRN C.N.PRaffy, D.N.P. Primary Care Provider Reason for Referral Outpatient (Routine) - Authorized Specialty Diagnoses / Procedures Referred By Contact Refer red To Contact Diagnoses Screening Mammogram Breast Cancer Ro Norton, [facility], [facility] Procedures BI Breast Screening Bilateral with Tomosynthesis C.N.P., D.N.P. [address] [place] [phone] Referral ID Status Reason Start Date Expiration Date Visits V isits Requested Authorized [id number] Authorized 12/21/2021 12/21/2022 1 1 Encounter Details Date Type Department Care Team Description 12/21/2021 Orders Only [facility], Screening Mammogram MORGAN C.N.PRaffy, Breast Cancer D.N.P. [address] [place] [phone] Social History Tobacco Use Types Packs/Day [...] or relatives? How often do you attend mormon or Never 2021 voodoo services? Do you belong to any clubs or No 02/25/2021 organizations such as mormon groups, unions, fraternal or athletic groups, or [...] Cancer documented in this encounter Care Teams Employee Health Rn Relationship Specialty Start Date End Date Ro Norton APRN, C.N.P., PCP - General Family Medicine D.N.P. [id number] [phone] documented as of this encounter
--- OUTSIDE RECORDS SUMMARY | 2022-01-30 19:54 | XMS_ITS | Encounter Summary ---
:1970 Author Organization [facility] Address [address] [place] [address] Care Team Providers Name Role Phone Ro Norton APRN C.N.Kirsty, D.N.P. 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 Chronic Obstructive Pulmonary Disease Ex acerbation (HCC); [address] [place] [address] [address] [facility] Edema Pulmonary ([facility]); [place], [place] Other [facility] Pulmonary Hypertension (HCC); [id number] Thrombocytopenia (HCC) [phone] Social History Tobacco Use Types Packs/Day Years [...] do you attend alevism or Never 2021 spiritism services? Do you [...] Comments Blood Pressure 108/77 12/31/2021 12:15 PM BOTANY PROFESSOR Pulse 82 12/31/2021 12:32 PM BOTANY PROFESSOR Temperature 36.6 ??C (97.9 ??F) 12/31/2021 8:31 AM BOTANY PROFESSOR Respiratory Rate 20 12/31/2021 12:32 PM BOTANY PROFESSOR Oxygen Saturation 89% 12/31/2021 12:32 PM BOTANY PROFESSOR Inhaled Oxygen Concentration - - Weight - [...] specialty: no Karine Goins P.A.-C. 12/31/21 1529 [place] PROF[place] documented in this encounter ED Notes Annie [...] negative results. Annie Pugh R.N. 12/31/21 0836 [place] PROFESS[place] Karine Goins P.A.-C. - 12/31/2021 8:29 AM [...] was allowed to. She last saw her Magnetic Prospecting Operator a year ago. She lost her neb [...] 8. Agitated saline contrast administered. 9. No [id number] shunt at atrial level at rest or [...] and close follow up with PCP and Magnetic Prospecting Operator. Danger signs were dicussed for return to [...] gen CANCELED Narrative: Specimen Information: Specimen ID: [id number] Specimen Type: Blood Specimen Collection Start Date: 12/31/2021 11:31 AM Specimen Received Date: 12/31/2021 11:33 AM Specimen ID: [id number] Specimen Type: Blood VBG (VENOUS BLOOD GAS), [...] data quality Normal sinus rhythm with short OK Right axis deviation Incomplete right bundle branch block Right ventricular hypertrophy Cannot rule out Anteroseptal infarct ST and T wave abnormality, consider inferior ischemia ST and T wave abnormality, consider anterolateral ischemia Prolonged QT When compared with ECG of 19-AUG-2020 12:42, Significant changes have occurred Reviewed by PRAKASH Savage Angela L, P.A.-C. 12/31/21 1229 [place] PROFESS[place] documented in this encounter Plan of Treatment Not on filedocumented as of this encounter Procedures Procedure Name Priority Date/Time Associated Comments Diagnosis CRITICAL CARE Routine 12/31/2021 1:25 Results for this PM BOTANY PROFESSOR procedure are i n the results section. TROPONIN T, 2H/6H, Timed 12/31/2021 11:31 Resul ts for this 5TH GEN, P AM BOTANY PROFESSOR procedure are i n the results section. DX CHEST AP OR PA RAD - Semiurgent 12/31/2021 9:23 Res ults for this AND LATERAL 2 VIEWS (Fast; most ED AM BOTANY PROFESSOR proced ure are in patients; some the results inpatients) section. HC BLD GASES ANY Routine 12/31/2021 9:22 Results for this COMBINATION AM BOTANY PROFESSOR procedure are i n the results section. IFLU A, B, SARS STAT 12/31/2021 9:10 Results f or this COV-2, PCR, RAPID,V AM BOTANY PROFESSOR procedur e are in the results section. TROPONIN T, STAT 12/31/2021 9:10 Results for this BASELINE, 5TH GEN, AM BOTANY PROFESSOR procedure are in P the results section. BLOOD GAS, POCT, B STAT 12/31/2021 9:10 Result s for this AM BOTANY PROFESSOR procedure are i n the results section. CBC WITH STAT 12/31/2021 9:10 Results for this DIFFERENTIAL, B AM BOTANY PROFESSOR procedure ar e in the results section. BASIC METABOLIC STAT 12/31/2021 9:10 Results f or this PANEL, S/P AM BOTANY PROFESSOR procedure are i n the results section. ECG STAT 12/31/2021 8:45 Results for this AM BOTANY PROFESSOR procedure are i n the results section. documented in this encounter Results Critical Care (12/31/2021 1:25 PM BOTANY PROFESSOR) Narrative Karine Goins P.A.-C. - 12/31/2021 1:25 PM BOTANY PROFESSOR Karine Goins P.A.-C. ? 12/31/2021 ??3:29 PM Critical Care Performed by: Karine Goins P.A.-C. Authorized by: Karine Goins P.A.-C. Critical care provider statement: Critical care total time (minutes): 30 Critical care time was exclusive of: sophia smith billable procedures and treating other patients and [...] T, 2H/6H, 5th Gen (12/31/2021 11:31 AM BOTANY PROFESSOR) P athologist Signature Troponin T, 2 12 (H) <=10 ng/L 12/31/2021 CNFL hr, 5th gen 12:01 PM BOTANY PROFESSOR Comment: Biotin has been identified by the edna manuelr as a potential interfering substance. Higher concentrations of biotin may be found in multivitamins, mcgregor ir/nail supplements, and workout supplements. If the result d oes not match clinical observations, repeat testing af ter patient refrains from the use of supplements for at least 12 hours. 2H Delta -3 ng/L 12/31/2021 12:01 PM BOTANY PROFESSOR CNFL 2H Delta Interp Not Changing 12/31/2021 12:[address] CNFL Troponin T, 6 hr, 5th gen CANCELED ng/L 12/31/2021 12: 01 PM BOTANY PROFESSOR CNFL Comment: Result canceled by the esha mejia Specimen Anatomical Collection Method Collection Time Receive d Time (Source) Location / / Volume Laterality Blood (Blood, 12/31/2021 11:31 12/31/2021 Venous) AM BOTANY PROFESSOR 11:33 AM BOTANY PROFESSOR Narrative [facility] - 12/31/2021 12:01 PM BOTANY PROFESSOR Specimen Information: Specimen ID: [id number] Specimen Type: Blood Specimen Collection Start Date: 022 11:31 AM Specimen Received Date: 12/31/2021 11:3 3 AM Specimen ID: [id number] Specimen Type: Blood Karine Goins P.A.-C. LAB BLOOD TROPONIN Performing Organization Address City/State/ZIP Code Phon e Number [address] [address] [place] [address] DX Chest AP or PA and Lateral 2 Views (12/31/2021 9:23 AM BOTANY PROFESSOR) Anatomical Region Laterality Modality Chest, Thoracic RST LOS, Thoracic ARZ LOS, Thoracic N/A Digital Radiography FLA LOS Specimen (Source) Anatomical Collection Method Collection Time Re ceived Time Location / / Volume Laterality 12/31/2021 9:26 AM BOTANY PROFESSOR Impressions 12/31/2021 9:32 AM BOTANY PROFESSOR Unchanged enlargement of the cardiac silhouette and central pulmonary arteries. Intact median sternotomy wires. Mild increased interstitial pulmonary markings which could be seen with acute interstitial pulmonary edema. No l arge pleural effusion. Mild chronic degenerative changes in the spine. Comparison, 06/19/2020. Narrative 12/31/2021 9:32 AM BOTANY PROFESSOR EXAM: DX CHEST AP OR PA AND [...] (Venous Blood Gas), POCT (12/31/2021 9:22 AM BOTANY PROFESSOR) Patholo gist Method Time Signature pH, Venous, 7.41 7.32 - 7.43 12/31/2021 CNFL POCT, B 9:22 AM BOTANY PROFESSOR pCO2, Venous, 58 (H) 41 - 51 mm Hg 12/31/2021 CNFL POCT, B 9:22 AM BOTANY PROFESSOR pO2, Venous, 28 Not applicable 12/31/2021 CNFL POCT, B mm Hg 9:22 AM BOTANY PROFESSOR HCO3, Venous, 37 Not applicable 12/31/2021 CNFL POCT, B mmol/L 9:22 AM BOTANY PROFESSOR Base Excess, 12 Not applicable 12/31/2021 CNFL Venous, POCT, mmol/L 9:22 AM BOTANY PROFESSOR B O2 Saturation, 52 Not applicable 12/31/2021 CNFL Venous, POCT, % 9:22 AM BOTANY PROFESSOR B Sample Type, ABEL 12/31/2021 CNFL Blood Gas, 9:22 AM BOTANY PROFESSOR POCT Specimen Anatomical Collection Method Collection Time Receive d Time (Source) Location / / Volume Laterality Blood 12/31/2021 9:22 AM 9:23 BOTANY PROFESSOR AM BOTANY PROFESSOR Generic [facility] LAB POCT ORDERABLES - DEVICE Performing Organization Address City/State/ZIP Code Phon e Number [facility] [address] [address] [place] [address] [address] Influenza A/B, SARS CoV-2, PCR, Rapid, Varies Symptomatic (12/31/2021 9:10 AM BOTANY PROFESSOR) [facility] Method Time Signature Influenza A, Negative Negative 12/31/2021 CNFL PCR, Rapid, V 9:50 AM BOTANY PROFESSOR Influenza B, Negative Negative 12/31/2021 CNFL PCR, Rapid, V 9:50 AM BOTANY PROFESSOR SARS CoV-2, Undetected Undetected 12/31/2021 CNFL PCR, Rapid, V 9:50 AM BOTANY PROFESSOR Comment: ----ADDITIONAL INFORMATION---- This RT-PCR test was performed using the Trey SARS-CoV-2 and Influenza A/B Reagent assay from [employer], which has received Emergency Use Authori zation(EUA) by the U.S. Food and Drug Administration . Fact sheets for this Emergency Use Autho rization (EUA) assay can be found at the following link s: For Healthcare Providers: https://www.fda.gov/media/965093/downloa d For Patients: https://www.fda.gov/media/450251/downloa d Infl A/B, SARS CoV-2, PCR, Source Swab, Nasopharynx 12/31/2021 9:50 AM BOTANY PROFESSOR CNFL Specimen Anatomical Collection Method Collection Time Receive d Time (Source) Location / / Volume Laterality Swab 12/31/2021 9:10 AM 9:50 (Nasopharynx) BOTANY PROFESSOR AM BOTANY PROFESSOR Karine Goins P.A.-C. LAB MICROBIOLOGY - GENERAL O RDERABLES Performing Organization Address City/State/ZIP Code Phon e Number [address] [address] [place] [address] System [address] (ABNORMAL) Troponin T, Baseline, 5th gen (12/31/2021 9:10 AM BOTANY PROFESSOR) athologist Signature Troponin T, 15 (H) <=10 ng/L 12/31/2021 CNFL Baseline, 5th 9:47 AM BOTANY PROFESSOR gen Comment: Biotin has been identified by [...] (Blood, 12/31/2021 9:10 AM 01/01/20 9:14 Venous) BOTANY PROFESSOR AM BOTANY PROFESSOR Karine Goins P.A.-C. LAB BLOOD TROPONIN Performing Organization Address City/State/ZIP Code Phon e Number [facility]- [address] [place] [phone] [place] [address] (ABNORMAL) Basic Metabolic Panel (12/31/2021 9:10 AM BOTANY PROFESSOR) athologist Signature Potassium, P 4.6 3.6 - 5.2 12/31/2021 CNFL mmol/L 9:47 AM BOTANY PROFESSOR Sodium, P 137 135 - 145 12/31/2021 CNFL mmol/L 9:47 AM BOTANY PROFESSOR Chloride, P 97 (L) 98 - 107 12/31/2021 CNFL mmol/L 9:47 AM BOTANY PROFESSOR Bicarbonate, P 29 22 - 29 12/31/2021 CNFL mmol/L 9:47 AM BOTANY PROFESSOR Anion Gap, P 11 7 - 15 12/31/2021 CNFL 9:47 AM BOTANY PROFESSOR BUN (Blood Urea 19 6 - 21 12/31/2021 CNFL Nitrogen), P mg/dL 9:47 AM BOTANY PROFESSOR Creatinine 0.78 0.59 - 12/31/2021 CNFL 1.04 mg/dL 9:47 AM BOTANY PROFESSOR Estimated GFR >90 >=60 12/31/2021 CNFL (eGFR) mL/min/BSA 9:47 AM BOTANY PROFESSOR Comment: Estimated GFR calculated using the 2020 CKD_EPI creatinine equation. Calcium, Total, P 8.5 (L) 8.6 - 10.0 mg/dL 12/31/2021 9:47 AM BOTANY PROFESSOR CNFL Glucose, P 118 70 - 140 mg/dL 12/31/2021 9:47 AM BOTANY PROFESSOR C NFL Specimen Anatomical Collection Method Collection Time Receive d Time (Source) Location / / Volume Laterality Blood (Blood, 12/31/2021 9:10 AM 01/01/20 9:13 Venous) BOTANY PROFESSOR AM BOTANY PROFESSOR Karine Goins P.A.-C. LAB BLOOD ADD-ON Performing Organization Address City/State/ZIP Code Phon e Number [facility]- [address] [place] [phone] [place] [address] (ABNORMAL) CBC with Differential, Blood (12/31/2021 9:10 AM BOTANY PROFESSOR) [facility] Method Time Signature Hemoglobin 15.9 (H) 11.6 - 12/31/2021 CNFL 15.0 g/dL 9:18 AM BOTANY PROFESSOR Hematocrit 50.1 (H) 35.5 - 12/31/2021 CNFL 44.9 % 9:18 AM BOTANY PROFESSOR Erythrocytes 4.90 3.92 - 12/31/2021 CNFL 5.13 9:18 AM BOTANY PROFESSOR x10(12)/L MCV 102.2 (H) 78.2 - 12/31/2021 CNFL 97.9 fL 9:18 AM BOTANY PROFESSOR RBC Distrib Width 14.0 12.2 - 12/31/2021 CNFL 16.1 % 9:18 AM BOTANY PROFESSOR Platelet Count 150 (L) 157 - 371 12/31/2021 CNFL x10(9)/L 9:18 AM BOTANY PROFESSOR Leukocytes 8.4 3.4 - 9.6 12/31/2021 CNFL x10(9)/L 9:18 AM BOTANY PROFESSOR Neutrophils 7.00 (H) 1.56 - 12/31/2021 CNFL 6.45 9:18 AM BOTANY PROFESSOR x10(9)/L Lymphocytes 0.75 (L) 0.95 - 12/31/2021 CNFL 3.07 9:18 AM BOTANY PROFESSOR x10(9)/L Monocytes 0.59 0.26 - 12/31/2021 CNFL 0.81 9:18 AM BOTANY PROFESSOR x10(9)/L Eosinophils <0.04 0.03 - 12/31/2021 CNFL 0.48 9:18 AM BOTANY PROFESSOR x10(9)/L Basophils <0.04 0.01 - 12/31/2021 CNFL 0.08 9:18 AM BOTANY PROFESSOR x10(9)/L Specimen Anatomical Collection Method Collection Time Receive d Time (Source) Location / / Volume Laterality Blood (Blood, 12/31/2021 9:10 AM 01/01/20 22 9:13 Venous) BOTANY PROFESSOR AM BOTANY PROFESSOR Karine Goins P.A.-C. LAB BLOOD ADD-ON Performing Organization Address City/[facility] Phon e Number [address] [address] [place] [address] [address] Blood Gas, Venous, POCT (12/31/2021 9:10 AM BOTANY PROFESSOR) Analysis Performed At Patho logist Time Signature Blood Gas, Collected DEFAULT 12/31/2021 CNFL POCT, B 9:14 AM BOTANY PROFESSOR Specimen Anatomical Collection Method Collection Time Receive d Time (Source) Location / / Volume Laterality Blood (Other, 12/31/2021 9:10 AM 01/01/20 22 9:14 Specify in BOTANY PROFESSOR AM BOTANY PROFESSOR Comments) Karine Goins P.A.-C. LAB POCT ORDERABLES - DEVICE Performing Organization Address [facility] Phon e Number [address] [address] [place] [address] [address] ECG 12 Lead (12/31/2021 8:45 AM BOTANY PROFESSOR) P athologist Signature Ventricular Rate 100 BPM MUSE ECG/Min OK Interval 114 ms MUSE QRSD Interval 104 ms MUSE QT Interval 402 ms MUSE QTC Interval 518 ms MUSE P Warren 66 degrees MUSE R Warren 111 degrees MUSE T Wave Warren -55 degrees MUSE Specimen Anatomical Collection Method Collection Time Receive d Time (Source) Location / / Volume Laterality 12/31/2021 8:45 AM 8:52 BOTANY PROFESSOR AM BOTANY PROFESSOR Impressions MUSE - 12/31/2021 8:52 AM BOTANY PROFESSOR Poor data quality Normal sinus rhythm with short OK Right axis deviation Incomplete right bundle branch [...] data quality Normal sinus rhythm with short OK Right axis deviation Incomplete right bundle branch [...] at 0958, For 1 dose, Created by cabinet override furosemide injection 20 mg (LASIX) Given 12/31/2021 10:01 AM BOTANY PROFESSOR 20 mg 20 mg, intravenous, Once, On Mon12/31/21 at 0945, For 1 dose, Adults: Doses less than 120 mg: IV push over 20 mg/minute. Doses 120 mg or greater: IVPB at 4 mg/minute. Peds/Neonates: Doses less than 120 mg over 0.5 mg/kg/minute. Doses 120 mg or greater: IVPB at 4 mg/minute. ipratropium-albuteroL 0.5-2.5 mg/3 mL nebulizer Given 12/31/2021 8:55 AM BOTANY PROFESSOR 3 mL solution 3 mL (DUONEB) 3 mL, nebulization, Once, On Mon12/31/21 at 0835, For 1 dose ipratropium-albuteroL 0.5-2.5 mg/3 mL Given 12/31/2021 10:00 AM BOTANY PROFESSOR 3 mL nebulizer solution 3 mL (DUONEB) [...] Recently Administered Medications Times are shown in BOTANY PROFESSOR. Scheduled Medication Order 12/29/2021 12/30/2021 12/31/2021 furosemide [...] (COMPLETED) 0855 (Given - Provid er: Avis L Florentino, R.R.T., L.R.T.) 3 mL, nebulization, Once, On Mon12/31/21 at 0835, For 1 dose ipratropium-albuteroL 0.5-2.5 mg/3 mL ne bulizer solution 3 mL (DUONEB) (COMPLETED) 1000 (Given - Provid er: Avis Good, R.R.T., L.R.T.) 3 mL, nebulization, Once, On Mon12/31/21 at 0927, For 1 dose methylPREDNISolone sod succinate (PF) in jection 125 mg (SOLU-Medrol) (COMPLETED) 910 (Given - Provid er: Annie Pugh R.N.) 125 mg, intravenous, Once, On Mon [...] COVID19 Pending 12/31/2021 12/31/2021 12/31/2021 9:51 AM BOTANY PROFESSOR documented as of this encounter Care Teams Web Machine Tender Relationship Specialty Start Date End Date Ro Norton APRN, C.N.P., PCP - General Family Medicine D.N.P. [id number] [id number] documented as of this encounter
--- OUTSIDE RECORDS SUMMARY | 2022-01-30 19:54 | XMS_ITS | Clinical Summary ---
:1970 Author Organization [facility] Address [address] [place] [address] Care Team Providers Name Role Phone Ro Norton APRN C.N.P., D.N.P. Primary Care Provider Source Comments Patient records contain information from all sites at [facility]. For routine questions regarding patient records, call [phone] during business hours, M-F 8:00 AM - 5:00 PM Central Time. Record requests for emergency care only can be directed to [phone] at any time.[facility] Allergies Active Allergy Reactions Severity Noted [...] mL nebulizer solution (four) times a day. predniSONE Take 3 tablets (60 15 tablet 0 12/31/2021 (DELTASONE) 20 mg mg total) by mouth 2 tablet daily for 5 days. Active Problems Problem Noted Date History Of Falling 07/25/2021 Shortness Of Breath 07/01/2020 Overview: Added automatically from request for stan pedersen [id number] Constipation 10/26/2019 Hypomagnesemia 10/24/2019 Observation Following Motor [...] Ro Ansari APRN, Verbal Order) C.N.P., D.N.P. from Last 3 Months Immunizations Name Administration [...] do you attend gnosticist or Never 2021 roman catholic services? Do you belong to any clubs or No 02/25/2021 organizations such as gnosticist groups, unions, fraDealentra or athletic groups, or school groups? How [...] Comments Blood Pressure 116/80 01/07/2022 8:00 PM PRODUCT SAFETY OFFICER Pulse 93 01/07/2022 8:00 PM PRODUCT SAFETY OFFICER Temperature 36.4 ??C (97.5 ??F) 01/07/2022 7:31 PM PRODUCT SAFETY OFFICER Respiratory Rate 22 01/07/2022 8:00 PM PRODUCT SAFETY OFFICER Oxygen Saturation 85% 01/07/2022 8:00 PM PRODUCT SAFETY OFFICER Inhaled Oxygen Concentration - - Weight 72.4 kg (159 lb 9.8 oz) 01/07/2022 7:26 PM PRODUCT SAFETY OFFICER Height 179.7 cm (5' 10.75) 09/29/2020 10:43 [...] 07/23/2021, 08/19/2020 Medical Devices Implanted Type Area Certified Scrum Master Device Shelf Model / Identifier Expiration Serial / Date Lot Scrw [facility] Ftd 3.5x75 - [id number] Hardware Left: Depuy Syn thes 204.875 / Implanted: Qty: 1 on 10/24/2019 by Raudel Lewis M.D. at [facility] e.g. Tibia / pins/screws/ rods Procedures Procedure Name Priority Date/Time Associated Comments Diagnosis DX CHEST AP OR PA RAD - Semiurgent 01/07/2022 8:09 Res ults for AND LATERAL 2 VIEWS (Fast; most ED PM PRODUCT SAFETY OFFICER this p rocedure patients; some are in the inpatients) results section. NT-PRO B-TYPE STAT 01/07/2022 8:01 Results for NATRIURETIC PEPTIDE PM PRODUCT SAFETY OFFICER this pro cedure (BNP), S are in the results section. COMPREHENSIVE STAT 01/07/2022 8:01 Results for METABOLIC PANEL, S/P PM PRODUCT SAFETY OFFICER this pr ocedure are in the results section. CBC WITHOUT STAT 01/07/2022 8:01 Results for DIFFERENTIAL, B PM PRODUCT SAFETY OFFICER this procedu re are in the results section. CRITICAL CARE Routine 12/31/2021 1:25 Results for PM PRODUCT SAFETY OFFICER this procedure are in the results section. TROPONIN T, 2H/6H, Timed 12/31/2021 11:31 Resul ts for 5TH GEN, P AM PRODUCT SAFETY OFFICER this procedure are in the results section. DX CHEST AP OR PA RAD - Semiurgent 12/31/2021 9:23 Res ults for AND LATERAL 2 VIEWS (Fast; most ED AM PRODUCT SAFETY OFFICER this p rocedure patients; some are in the inpatients) results section. HC BLD GASES ANY Routine 12/31/2021 9:22 Results for COMBINATION AM PRODUCT SAFETY OFFICER this procedure are in the results section. BLOOD GAS, POCT, B STAT 12/31/2021 9:10 Result s for AM PRODUCT SAFETY OFFICER this procedure are in the results section. TROPONIN T, STAT 12/31/2021 9:10 Results for BASELINE, 5TH GEN, P AM PRODUCT SAFETY OFFICER this pr ocedure are in the results section. BASIC METABOLIC STAT 12/31/2021 9:10 Results f or PANEL, S/P AM PRODUCT SAFETY OFFICER this procedure are in the results section. CBC WITH STAT 12/31/2021 9:10 Results for DIFFERENTIAL, B AM PRODUCT SAFETY OFFICER this procedu re are in the results section. IFLU A, B, SARS STAT 12/31/2021 9:10 Results f or COV-2, PCR, RAPID,V AM PRODUCT SAFETY OFFICER this pro cedure are in the results section. ECG STAT 12/31/2021 8:45 Results for AM PRODUCT SAFETY OFFICER this procedure are in the results section. from Last 3 Months Results DX Chest AP or PA and Lateral 2 Views (01/07/2022 8:09 PM PRODUCT SAFETY OFFICER)Only the most recent of2 resultswithin the time period is included. Anatomical Region Laterality Modality Chest, Thoracic RST LOS, Thoracic ARZ LOS, Thoracic N/A Digital Radiography FLA LOS Specimen (Source) Anatomical Collection Method Collection Time Re ceived Time Location / / Volume Laterality 01/07/2022 8:14 PM PRODUCT SAFETY OFFICER Impressions 01/07/2022 8:16 PM PRODUCT SAFETY OFFICER Stable cardiomegaly and enlarged central pulmonary arteries, as can be seen with pulmonary hypertension. No pneumothorax. Increased mild bilateral mid and lower lung opacities could be seen with asymmetric pulmonary edema or multifocal pneumonia. Trace bilateral pleural effusions. Comparison: 12/31/2021 Narrative 01/07/2022 8:16 PM PRODUCT SAFETY OFFICER EXAM: DX CHEST AP OR PA AND [...] B-Type Natriuretic Peptide (BNP) (01/07/2022 8:01 PM PRODUCT SAFETY OFFICER) athologist Signature NT-Pro BNP 2344 (H) <=141 pg/mL 01/07/2022 CNFL 8:35 PM PRODUCT SAFETY OFFICER Comment: NT-proBNP values less than 300 pg/mL [...] (Blood, 01/07/2022 8:01 PM 01/08/20 8:03 Venous) PRODUCT SAFETY OFFICER PM PRODUCT SAFETY OFFICER Pj Jones C.N.P. LAB BLOOD ADD-ON Performing Organization Address City/State/[facility] Phon e Number [address] [address] [place] [address] [address] (ABNORMAL) CBC without Differential (01/07/2022 8:01 PM PRODUCT SAFETY OFFICER) Patholo gist Method Time Signature Hemoglobin 17.3 (H) 11.6 - 01/07/2022 CNFL 15.0 g/dL 8:17 PM PRODUCT SAFETY OFFICER Hematocrit 53.5 (H) 35.5 - 01/07/2022 CNFL 44.9 % 8:17 PM PRODUCT SAFETY OFFICER Erythrocytes 5.35 (H) 3.92 - 01/07/2022 CNFL 5.13 8:17 PM PRODUCT SAFETY OFFICER x10(12)/L MCV 100.0 (H) 78.2 - 01/07/2022 CNFL 97.9 fL 8:17 PM PRODUCT SAFETY OFFICER RBC Distrib Width 14.2 12.2 - 01/07/2022 CNFL 16.1 % 8:17 PM PRODUCT SAFETY OFFICER Platelet Count 196 157 - 371 01/07/2022 CNFL x10(9)/L 8:17 PM PRODUCT SAFETY OFFICER Leukocytes 16.1 (H) 3.4 - 9.6 01/07/2022 CNFL x10(9)/L 8:17 PM PRODUCT SAFETY OFFICER Specimen Anatomical Collection Method Collection Time Receive d Time (Source) Location / / Volume Laterality Blood (Blood, 01/07/2022 8:01 PM 01/08/20 8:03 Venous) PRODUCT SAFETY OFFICER PM PRODUCT SAFETY OFFICER Pj Jones C.N.P. LAB BLOOD ADD-ON Performing Organization Address City/[facility] Phon e Number [address] [address] [place] [address] (ABNORMAL) Comprehensive Metabolic Panel (01/07/2022 8:01 PM PRODUCT SAFETY OFFICER) P athologist Signature Potassium, P 3.8 3.6 - 5.2 01/07/2022 CNFL mmol/L 8:24 PM PRODUCT SAFETY OFFICER Sodium, P 138 135 - 145 01/07/2022 CNFL mmol/L 8:24 PM PRODUCT SAFETY OFFICER Chloride, P 96 (L) 98 - 107 01/07/2022 CNFL mmol/L 8:24 PM PRODUCT SAFETY OFFICER Bicarbonate, P 32 (H) 22 - 29 01/07/2022 CNFL mmol/L 8:24 PM PRODUCT SAFETY OFFICER Anion Gap, P 10 7 - 15 01/07/2022 CNFL 8:24 PM PRODUCT SAFETY OFFICER BUN (Blood Urea 19 6 - 21 01/07/2022 CNFL Nitrogen), P mg/dL 8:24 PM PRODUCT SAFETY OFFICER Creatinine 0.73 0.59 - 01/07/2022 CNFL 1.04 mg/dL 8:24 PM PRODUCT SAFETY OFFICER Estimated GFR >90 >=60 01/07/2022 CNFL (eGFR) mL/min/BSA 8:24 PM PRODUCT SAFETY OFFICER Comment: Estimated GFR calculated using the 2020 CKD_EPI creatinine equation. Calcium, Total, P 8.5 (L) 8.6 - 10.0 mg/dL 01/07/2022 8:24 PM PRODUCT SAFETY OFFICER CNFL Glucose, P 126 70 - 140 mg/dL 01/07/2022 8:24 PM PRODUCT SAFETY OFFICER C NFL Protein, Total, P 6.8 6.3 - 7.9 g/dL 01/07/2022 8:24 P M PRODUCT SAFETY OFFICER CNFL Albumin, P 3.0 (L) 3.5 - 5.0 g/dL 01/07/2022 8:24 PM PRODUCT SAFETY OFFICER C NFL Aspartate Aminotransferase 79 (H) 8 - 43 U/L 01/07/2022 8 :24 PM PRODUCT SAFETY OFFICER CNFL (AST), P Alkaline Phosphatase, P 270 (H) 35 - 104 U/L 01/07/2022 8: 24 PM PRODUCT SAFETY OFFICER CNFL Alanine Aminotransferase 100 (H) 7 - 45 U/L 01/07/2022 8:2 4 PM PRODUCT SAFETY OFFICER CNFL (ALT), P Bilirubin, Total, P 0.8 <=1.2 mg/dL 01/07/2022 8:24 PM PRODUCT SAFETY OFFICER CNFL Specimen Anatomical Collection Method Collection Time Receive d Time (Source) Location / / Volume Laterality Blood (Blood, 01/07/2022 8:01 PM 01/08/20 8:03 Venous) PRODUCT SAFETY OFFICER PM PRODUCT SAFETY OFFICER Pj Jones C.N.P. LAB BLOOD ADD-ON Performing Organization Address City/State/ZIP Code Phon e Number [facility] [address] [place] [address] Critical Care (12/31/2021 1:25 PM PRODUCT SAFETY OFFICER) Narrative Karine Goins P.A.-C. - 12/31/2021 1:25 PM PRODUCT SAFETY OFFICER Karine Goins P.A.-C. ? 12/31/2021 ??3:29 PM [...] T, 2H/6H, 5th Gen (12/31/2021 11:31 AM PRODUCT SAFETY OFFICER) P athologist Signature Troponin T, 2 12 (H) <=10 ng/L 12/31/2021 CNFL hr, 5th gen 12:01 PM PRODUCT SAFETY OFFICER Comment: Biotin has been identified by the edna levy as a potential interfering substance. Higher concentrations of biotin may be found in multivitamins, mcgregor ir/nail supplements, and workout supplements. If the result d oes not match clinical observations, repeat testing af ter patient refrains from the use of supplements for at least 12 hours. 2H Delta -3 ng/L 12/31/2021 12:01 PM PRODUCT SAFETY OFFICER CNFL 2H Delta Interp Not Changing 12/31/2021 12:[address] CNFL Troponin T, 6 hr, 5th gen CANCELED ng/L 12/31/2021 12: 01 PM PRODUCT SAFETY OFFICER CNFL Comment: Result canceled by the esha y. Specimen Anatomical Collection Method Collection Time Receive d Time (Source) Location / / Volume Laterality Blood (Blood, 12/31/2021 11:31 12/31/2021 Venous) AM PRODUCT SAFETY OFFICER 11:33 AM PRODUCT SAFETY OFFICER Narrative [facility] - 12/31/2021 12:01 PM PRODUCT SAFETY OFFICER Specimen Information: Specimen ID: [id number] Specimen Type: Blood Specimen Collection Start Date: 022 11:31 AM Specimen Received Date: 12/31/2021 11:3 3 AM Specimen ID: [id number] Specimen Type: Blood Karine Goins P.A.-C. LAB BLOOD TROPONIN Performing Organization Address City/State/ZIP Code Phon e Number [address] [address] [place] [address] [address] (ABNORMAL) VBG (Venous Blood Gas), POCT (12/31/2021 9:22 AM PRODUCT SAFETY OFFICER) [facility] gist Method Time Signature pH, Venous, 7.41 7.32 - 7.43 12/31/2021 CNFL POCT, B 9:22 AM PRODUCT SAFETY OFFICER pCO2, Venous, 58 (H) 41 - 51 mm Hg 12/31/2021 CNFL POCT, B 9:22 AM PRODUCT SAFETY OFFICER pO2, Venous, 28 Not applicable 12/31/2021 CNFL POCT, B mm Hg 9:22 AM PRODUCT SAFETY OFFICER HCO3, Venous, 37 Not applicable 12/31/2021 CNFL POCT, B mmol/L 9:22 AM PRODUCT SAFETY OFFICER Base Excess, 12 Not applicable 12/31/2021 CNFL Venous, POCT, mmol/L 9:22 AM PRODUCT SAFETY OFFICER B O2 Saturation, 52 Not applicable 12/31/2021 CNFL Venous, POCT, % 9:22 AM PRODUCT SAFETY OFFICER B Sample Type, ABEL 12/31/2021 CNFL Blood Gas, 9:22 AM PRODUCT SAFETY OFFICER POCT Specimen Anatomical Collection Method Collection Time Receive d Time (Source) Location / / Volume Laterality Blood 12/31/2021 9:22 AM 2 9:23 PRODUCT SAFETY OFFICER AM PRODUCT SAFETY OFFICER Generic Rals LAB POCT ORDERABLES - DEVICE Performing Organization Address [facility] Phon e Number [address] [address] [place] [address] [address] Influenza A/B, SARS CoV-2, PCR, Rapid, Varies Symptomatic (12/31/2021 9:10 AM PRODUCT SAFETY OFFICER) [facility] Method Time Signature Influenza A, Negative Negative 12/31/2021 CNFL PCR, Rapid, V 9:50 AM PRODUCT SAFETY OFFICER Influenza B, Negative Negative 12/31/2021 CNFL PCR, Rapid, V 9:50 AM PRODUCT SAFETY OFFICER SARS CoV-2, Undetected Undetected 12/31/2021 CNFL PCR, Rapid, V 9:50 AM PRODUCT SAFETY OFFICER Comment: ----ADDITIONAL INFORMATION---- This RT-PCR test was performed using the Trey SARS-CoV-2 and Influenza A/B Reagent assay from [facility], which has received Emergency Use Authori zation(EUA) by the U.S. Food and Drug Administration . Fact sheets for this Emergency Use Autho rization (EUA) assay can be found at the following link s: For Healthcare Providers: https://www.fda.gov/media/963676/downloa d For Patients: https://www.fda.gov/media/536834/downloa d Infl A/B, SARS CoV-2, PCR, Source Swab, Nasopharynx 12/31/2021 9:50 AM PRODUCT SAFETY OFFICER CNFL Specimen Anatomical Collection Method Collection Time Receive d Time (Source) Location / / Volume Laterality Swab 12/31/2021 9:10 AM 2 9:50 (Nasopharynx) PRODUCT SAFETY OFFICER AM PRODUCT SAFETY OFFICER Karine Goins P.A.-C. LAB MICROBIOLOGY - GENERAL O RDERABLES Performing Organization Address City/[facility] Phon e Number [address] [address] [place] [address] (ABNORMAL) Troponin T, Baseline, 5th gen (12/31/2021 9:10 AM PRODUCT SAFETY OFFICER) P athologist Signature Troponin T, 15 (H) <=10 ng/L 12/31/2021 [facility] Baseline, 5th 9:47 AM PRODUCT SAFETY OFFICER gen Comment: Biotin has been identified by [...] (Blood, 12/31/2021 9:10 AM 01/01/20 9:14 Venous) PRODUCT SAFETY OFFICER AM PRODUCT SAFETY OFFICER Karine Goins P.A.-C. LAB BLOOD TROPONIN Performing Organization Address City/State/ZIP Code Phon e Number [address] [address] [place] [address] [address] Blood Gas, Venous, POCT (12/31/2021 9:10 AM PRODUCT SAFETY OFFICER) Analysis Performed At Patho logist Time Signature Blood Gas, Collected DEFAULT 12/31/2021 [facility] POCT, B 9:14 AM PRODUCT SAFETY OFFICER Specimen Anatomical Collection Method Collection Time Receive d Time (Source) Location / / Volume Laterality Blood (Other, 12/31/2021 9:10 AM 01/01/20 9:14 Specify in PRODUCT SAFETY OFFICER AM PRODUCT SAFETY OFFICER Comments) Karine Goins P.A.-C. LAB POCT ORDERABLES - DEVICE Performing Organization Address City/State/ZIP Code Phon e Number [address] [address] [place] [address] (ABNORMAL) CBC with Differential, Blood (12/31/2021 9:10 AM PRODUCT SAFETY OFFICER) [facility] gist Method Time Signature Hemoglobin 15.9 (H) 11.6 - 12/31/2021 CNFL 15.0 g/dL 9:18 AM PRODUCT SAFETY OFFICER Hematocrit 50.1 (H) 35.5 - 12/31/2021 CNFL 44.9 % 9:18 AM PRODUCT SAFETY OFFICER Erythrocytes 4.90 3.92 - 12/31/2021 CNFL 5.13 9:18 AM PRODUCT SAFETY OFFICER x10(12)/L MCV 102.2 (H) 78.2 - 12/31/2021 CNFL 97.9 fL 9:18 AM PRODUCT SAFETY OFFICER RBC Distrib Width 14.0 12.2 - 12/31/2021 CNFL 16.1 % 9:18 AM PRODUCT SAFETY OFFICER Platelet Count 150 (L) 157 - 371 12/31/2021 CNFL x10(9)/L 9:18 AM PRODUCT SAFETY OFFICER Leukocytes 8.4 3.4 - 9.6 12/31/2021 CNFL x10(9)/L 9:18 AM PRODUCT SAFETY OFFICER Neutrophils 7.00 (H) 1.56 - 12/31/2021 CNFL 6.45 9:18 AM PRODUCT SAFETY OFFICER x10(9)/L Lymphocytes 0.75 (L) 0.95 - 12/31/2021 CNFL 3.07 9:18 AM PRODUCT SAFETY OFFICER x10(9)/L Monocytes 0.59 0.26 - 12/31/2021 CNFL 0.81 9:18 AM PRODUCT SAFETY OFFICER x10(9)/L Eosinophils <0.04 0.03 - 12/31/2021 CNFL 0.48 9:18 AM PRODUCT SAFETY OFFICER x10(9)/L Basophils <0.04 0.01 - 12/31/2021 CNFL 0.08 9:18 AM PRODUCT SAFETY OFFICER x10(9)/L Specimen Anatomical Collection Method Collection Time Receive d Time (Source) Location / / Volume Laterality Blood (Blood, 12/31/2021 9:10 AM 01/01/20 9:13 Venous) PRODUCT SAFETY OFFICER AM PRODUCT SAFETY OFFICER Karine Goins P.A.-C. LAB BLOOD ADD-ON Performing Organization Address City/State/ZIP Code Phon e Number [facility]- [address] [place] [address] [place] [address] (ABNORMAL) Basic Metabolic Panel (12/31/2021 9:10 AM PRODUCT SAFETY OFFICER) athologist Signature Potassium, P 4.6 3.6 - 5.2 12/31/2021 CNFL mmol/L 9:47 AM PRODUCT SAFETY OFFICER Sodium, P 137 135 - 145 12/31/2021 CNFL mmol/L 9:47 AM PRODUCT SAFETY OFFICER Chloride, P 97 (L) 98 - 107 12/31/2021 CNFL mmol/L 9:47 AM PRODUCT SAFETY OFFICER Bicarbonate, P 29 22 - 29 12/31/2021 CNFL mmol/L 9:47 AM PRODUCT SAFETY OFFICER Anion Gap, P 11 7 - 15 12/31/2021 CNFL 9:47 AM PRODUCT SAFETY OFFICER BUN (Blood Urea 19 6 - 21 12/31/2021 CNFL Nitrogen), P mg/dL 9:47 AM PRODUCT SAFETY OFFICER Creatinine 0.78 0.59 - 12/31/2021 CNFL 1.04 mg/dL 9:47 AM PRODUCT SAFETY OFFICER Estimated GFR >90 >=60 12/31/2021 CNFL (eGFR) mL/min/BSA 9:47 AM PRODUCT SAFETY OFFICER Comment: Estimated GFR calculated using the 2020 CKD_EPI creatinine equation. Calcium, Total, P 8.5 (L) 8.6 - 10.0 mg/dL 12/31/2021 9:47 AM PRODUCT SAFETY OFFICER CNFL Glucose, P 118 70 - 140 mg/dL 12/31/2021 9:47 AM PRODUCT SAFETY OFFICER C NFL Specimen Anatomical Collection Method Collection Time Receive d Time (Source) Location / / Volume Laterality Blood (Blood, 12/31/2021 9:10 AM 01/01/20 9:13 Venous) PRODUCT SAFETY OFFICER AM PRODUCT SAFETY OFFICER Karine Goins P.A.-C. LAB BLOOD ADD-ON Performing Organization Address City/State/ZIP Code Phon e Number [facility]- [address] [place] [address] [place] [address] ECG 12 Lead (12/31/2021 8:45 AM PRODUCT SAFETY OFFICER) athologist Signature Ventricular Rate 100 BPM MUSE ECG/Min NH Interval 114 ms MUSE QRSD Interval 104 ms MUSE QT Interval 402 ms MUSE QTC Interval 518 ms MUSE P Sharon 66 degrees MUSE R Sharon 111 degrees MUSE T Wave [place] -55 degrees MUSE Specimen Anatomical Collection Method Collection Time Receive d Time (Source) Location / / Volume Laterality 12/31/2021 8:45 AM 8:52 PRODUCT SAFETY OFFICER AM PRODUCT SAFETY OFFICER Impressions MUSE - 12/31/2021 8:52 AM PRODUCT SAFETY OFFICER Poor data quality Normal sinus rhythm with short NH Right axis deviation Incomplete right bundle branch [...] data quality Normal sinus rhythm with short NH Right axis deviation Incomplete right bundle branch [...] MUSE MUSE NA from Last 3 Months Advance Directives For more information, please contact: [phone] Latest Code Status on File Code Status Date Activated Date Inactivated Comments Full Code 10/23/2019 4:09 AM 10/27/2019 3:11 PM Question Answer Comments Full Code: Not Discussed Due to: Patient not available Care Teams Building Maintenance Worker Relationship Specialty Start Date End Date Ro Norton APRN, C.N.P., PCP - General Family Medicine D.N.P. [id number] [phone]
--- OUTSIDE RECORDS SUMMARY | 2022-01-30 19:55 | XMS_ITS | Encounter Summary ---
:1970 Author Organization [facility] Address [address] [place] [address] Care Team Providers Name Role Phone Ro [...] Emergency Medicine Diagnoses Swelling Face Darryl Blackman, [facility] MORGAN, C.N.P. [address] [place] [address] Referral ID Status Reason Start Date Expiration Date Visits Requ ested Visits Authorized [id number] Closed 06/26/2021 06/26/2022 1 1 Encounter Details Date Type Department Care Team Description 07/23/2021 Office Visit Department of [facility] Ro Norton, Christianson Estrogen Post Menopausal (Primary Dx); Medicine, Law MORA, C.N.P., Swelling F tramaine; [facility], in D.N.P. Screening Examination Diabetes Mellitus; [place] [address] Discharge V aginal; [facility] Screening For Venereal Disease; [address] [place] [address] Pap Smear Examination; [place] [address] Chronic Obstructive Pulmonary Disease Wi thout Exacerbation (HCC); [id number] Tobacco Use; Other Secondary Pulmonary Hypertension ( HCC); [phone] Hepatitis C (Fax) Social History Tobacco Use [...] been staying between her children's homes couch [place]. She reports however that her daughter recently [...] e Number [facility]- [address] [place] [address] [facility] [place] [address] System [address] HIV-1/-2 Ag and Ab Screen, Plasma [...] 2:37 Venous) CDT PM CDT Ro Norton APRN, C.N.P., D.N.P. LAB MICROBIOLOGY - BLOOD ORDERABLES Performing Organization Address City/State/ZIP Code Phon e Number [facility]- [address] [place] [phone] [facility] [place] [address] System [address] (ABNORMAL) HBc Total Ab, Serum (07/23/2021 8:56 AM CDT) Patholo gist Method Time Signature HBc Total Ab, Positive (A) Negative 07/24/2021 ECLR w/Reflex, S 1:49 AM CDT Specimen Anatomical Collection Method Collection Time Receive d Time (Source) Location / / Volume Laterality Blood (Blood, 07/23/2021 8:56 AM 07/24/19 22 9:05 Venous) CDT PM CDT Boliavr Borden APRN.N.PRaffy, D.N.P. LAB MICROBIOLOGY - BLOOD ORDERABLES Performing Organization Address [facility] Phon e Number [facility]- [address] [place] [phone] [facility] [place] [address] System in [address] HBs Antibody, Serum (07/23/2021 8:56 AM CDT) athologist Signature HBs Antibody, Negative 07/24/2021 ECLR [...] MICROBIOLOGY - BLOOD ORDERABLES Performing Organization Address [facility] Phon e Number [facility]- [address] [place] [address] [facility] [place] [address] System in [address] (ABNORMAL) HCV Ab w/Reflex to HCV PCR, Serum (07/23/2021 8:56 AM CDT) [facility] Method Time Signature HCV Ab Reactive [...] 07/24/19 9:04 Venous) CDT PM CDT Narrative [facility]- [facility] - 07/24/2021 1:50 AM CDT Specimen Information: Specimen ID: [id number] Specimen Type: Blood Specimen Collection Start Date: 2 ??8:56 AM Specimen Received Date: 07/23/2021 ??9:04 PM Specimen ID: [id number] Specimen Type: Blood Specimen Collection Start Date: 2 ??8:56 AM Specimen Received Date: 07/23/2021 ??9:05 PM Ro Norton APRN, C.N.P., D.N.P. LAB MICROBIOLOGY - BLOOD ORDERABLES Performing Organization Address City/State/ZIP Code Phon e Number [facility]- [address] [place] [address] [facility] [place] [address] System [place] [address] Hepatitis A IgM Ab, Serum (07/23/2021 8:56 AM CDT) athologist Signature Hepatitis A Negative Negative 07/24/2021 [facility] IgM Ab, S 1:49 AM CDT Comment: [...] MICROBIOLOGY - BLOOD ORDERABLES Performing Organization Address [facility] Phon e Number [facility]- [address] [place] [address] [facility] [place] [address] System [place] [address] Hepatitis B Core IgM Ab (07/23/2021 8:56 AM CDT) [facility] Method Time Signature HBc IgM Ab, [...] MICROBIOLOGY - BLOOD ORDERABLES Performing Organization Address [facility] Phon e Number [facility]- [address] [place] [address] [facility] [place] [address] System [address] HBs Antigen Scrn, S (07/23/2021 8:56 AM CDT) [facility] Method Time Signature HBs Antigen Nonreactive Nonreactive 07/24/2021 ECLR Scrn, S 1:49 AM CDT Specimen Anatomical Collection Method Collection Time Receive d Time (Source) Location / / Volume Laterality Blood (Blood, 07/23/2021 8:56 AM 07/24/19 22 9:04 Venous) CDT PM CDT Bolivar Borden APRN.N.P., D.N.P. LAB MICROBIOLOGY - BLOOD ORDERABLES Performing Organization Address [facility] Phon e Number [facility]- [address] [place] [address] [facility] [place] [address] System [address] (ABNORMAL) CBC without Differential (07/23/2021 8:56 [...] D.N.P. LAB BLOOD ADD-ON Performing Organization Address City/[facility] [[email or web address]] Code Phon e Number [facility]- [address] [place] [address] [place] [address] [place] [place] [address] System [address] (ABNORMAL) Comprehensive Metabolic Panel (07/23/2021 8:56 [...] CDT eGFR-Black/Afric >90 >=60 07/23/2021 CNFL an Russian mL/min/BSA 9:34 AM CDT Comment: ----ADDITIONAL INFORMATION---- [...] 1.0 <=1.2 mg/dL 07/23/2021 9:34 AM CDT CNAR Specimen Anatomical Collection Method Collection Time Receive d Time (Source) Location / / Volume Laterality Blood (Blood, 07/23/2021 8:56 AM 07/24/19 9:01 Venous) CDT AM CDT Bolivar Borden APRN.N.P., D.N.P. LAB BLOOD ADD-ON Performing Organization Address City/[facility] Phon e Number [facility]- [address] [place], [place] [address] [address] [place] [place] [address] System [address] HPV with Genotyping, PCR, ThinPrep (07/23/2021 [...] MICROBIOLOGY - GENERAL ORDERABLES Performing Organization Address City/[facility] Phon e Number [facility]- [address] [place] [address] [facility] [place] [address] System [address] ThinPrep w/HPV Co-Test Screen (07/23/2021 8:24 AM CDT) Component Value Ref Test Analysis Performed Pathologis t Range Method Time At [facility] 07/29/2021 ECLR 1:02 PM CDT Report COLT Burrows(ASCP) 07/29/2021 ECLR electronically 1:02 PM signed by CDT I verify that I have examined all relevant slides/materials for the specimen(s) and rendered or confirmed the diagnosis. Gross Description Received specimen 07/29/2021 ECL R in a ThinPrep 1:02 PM vial. CDT Pap Test Source Cervical/Endocervi 07/29/2021 ECLR lidya 1:02 PM CDT Clinical History \[id number]\ 07/29/2021 ECLR 1:02 PM CDT Interpretation Cervical/Endocervical [...] / Volume Laterality Varies 07/23/2021 8:24 AM (Cervix/Endocerv CDT 12:56 PM CD T ix) Narrative This result has an attachment that is no t available. Bolivar Borden APRN.N.P., D.N.P. LAB PAP PATHDX OR DERABLES Performing Organization Address City/State/ZIP Code Phon e Number [facility]- [address] [place] [address] [facility] [place] [address] [address] Chlamydia / Gonorrhoeae Amplified RNA (07/23/2021 8:24 AM CDT) [facility] gist Method Time Signature Source Swab, [...] MICROBIOLOGY - GENERAL ORDERABLES Performing Organization Address City/[facility] [[email or web address]] Code Phon e Number [facility]- [address] [place] [address] [facility] [place] [address] System [address] (ABNORMAL) Vaginitis Panel (07/23/2021 8:24 AM [...] MICROBIOLOGY - GENERAL ORDERABLES Performing Organization Address City/[facility] Phon e Number [facility]- [address] [place] [address] [place] [place] [address] System in [address] documented in this encounter Visit Diagnoses Diagnosis Deficiency Estrogen Post Menopausal - Pr imary Swelling Face Screening Examination Diabetes Mellitus Discharge Vaginal Screening For Venereal Disease Pap Smear Examination Chronic Obstructive Pulmonary Disease Wi thout Exacerbation (HCC) Tobacco Use Other Secondary Pulmonary Hypertension ( HCC) Hepatitis C documented in this encounter Care Teams Group Fitness Instructor Relationship Specialty Start Date End Date Ro Norton APRN, C.N.P., PCP - General Family Medicine D.N.P. [address] [place] [phone] documented as of this encounter
--- OUTSIDE RECORDS SUMMARY | 2022-01-30 19:55 | XMS_ITS | Encounter Summary ---
:1970 Author Organization [facility] Address [address] [place] [address] Care Team Providers Name Role Phone Ro Norton APRN C.N.Kirsty, D.N.P. Primary Care Provider Encounter Details Date Type Department Care Team Description 06/13/2021 E-Visit [facility] Express SmaEdith clarke, Expr ess Care Online for Care at the [place] MORGAN, C.N.P., Sinus Symp toms Building on the 4th M.S.N. (sinusitis) Floor [address] [place] [address] [address] [place] [phone] Social History Tobacco Use Types Packs/Day Years [...] do you attend moravian or Never 2021 yazidism services? Do you [...] Primary documented in this encounter Care Teams Construction Operations Manager Relationship Specialty Start Date End Date Ro Norton APRN, C.N.P., PCP - General Family Medicine D.N.P. [address] [phone] documented as of this encounter
--- OUTSIDE RECORDS SUMMARY | 2022-01-30 19:55 | XMS_ITS | Encounter Summary ---
:1970 Author Organization [facility] Address [address] [place] [address] Care Team Providers Name Role Phone Ro Norton APRN, C.N.PRaffy, D.N.P. Primary Care Provider Reason for Referral Outpatient (Routine) - Closed Specialty Diagnoses / Procedures Referred By Contact Refer red To Contact Emergency Medicine Diagnoses Swelling Face Darryl Blackman, [facility] MORGAN, C.N.P. [address] [place] [address] Referral ID Status Reason Start Date Expiration Date Visits Requ ested Visits Authorized [id number] Closed 06/26/2021 06/26/2022 1 1 Reason for Visit Reason Comments Facial Swelling Ongoing facial swelling for about two weeks. No difficulty with breathing. Encounter Details Date Type Department Care Team Description 06/26/2021 Emergency [facility] Darryl Blackman , Swelling Face (Primary Dx); Department MORGAN, C.N.P. Allergy Unspecified Initial [address] [place] [address] [address] [place], [place] [phone] Social History Tobacco Use Types Packs/Day Years [...] do you attend islam or Never 2021 tenriism services? Do you [...] be sent through Care Everywhere. Allergies Adult Xkba-kk-Oiwq (Azeri)documented in this encounter Medications at Time of [...] total) by mouth daily for 10 days. multivitamin capsule Take 1 capsule by 0 [...] 0 220 (50) mg capsule mouth daily. penicillin V potassium TAKE 1 TABLET [...] (0.25 mg total) by mouth at bedtime. predniSONE (DELTASONE) 10 4 tabs X 4 [...] waned but she has been living in [place] and did not want to see a provider there. She is back in town to see her hotel engineer and primary care provider locally. Overall I [...] eyes and cheeks Allergy Unspecified Initial Darryl Blackman, MORGAN, C.N.P. 06/26/21 1249 documented in this encounter Plan of Treatment Scheduled Referrals Name Type Priority Associated Diagnoses Order S chedule POST ED VISIT Outpatient Referral Routine Swelling Face Expect ed: Family Medicine 06/29/2021, Expires: 09/26/2022 documented as of this encounter Visit Diagnoses Diagnosis Swelling Face - Primary Allergy Unspecified Initial documented in this encounter Care Teams Pipe Fitter Soft Copper Relationship Specialty Start Date End Date Ro Norton APRN, C.N.P., PCP - General Family Medicine D.N.P. [address] [phone] documented as of this encounter
--- OUTSIDE RECORDS SUMMARY | 2022-01-30 19:55 | XMS_ITS | Encounter Summary ---
:1970 Author Organization [facility] Address [address] [place] [address] Care Team Providers Name Role Phone Ro Norton APRN, C.N.P., D.N.P. Primary Care Provider Encounter Details Date Type Department Care Team Description 05/17/2021 Orders Only Pharmacy Prior Auth RO Miles Jolley [phone] Social History Tobacco Use Types Packs/Day Years [...] do you attend druze or Never 2021 latter-day services? Do you [...] on filedocumented in this encounter Care Teams News Operations Manager Relationship Specialty Start Date End Date Ro Norton APRN, C.N.P., PCP - General Family Medicine D.N.P. [phone] [place] [phone] documented as of this encounter
--- OUTSIDE RECORDS SUMMARY | 2022-01-30 19:55 | XMS_ITS | Encounter Summary ---
:1970 Author Organization [facility] Address [address] [place] [address] Care Team Providers Name Role Phone Ro Norton APRN, C.N.Kirsty, D.N.P. Primary Care Provider Reason for Referral Outpatient (Routine) - Authorized Specialty Diagnoses / Referred By Referred To Cont act Procedures Contact Gastroenterology and Diagnoses [facility] MORA.N.Kirsty, D.N.P. [address] [place] [phone] Referral ID Status Reason Start Date Expiration Date Visits V isits Requested Authorized [id number] Authorized 09/14/2021 09/14/2022 1 1 Encounter Details Date Type Department Care Team Description 09/13/2021 Clinical Communication Department of Ro Holguin, Medicine, [place] MORGAN C.N.PRaffy, Clinic, in [place] [address] [phone] Social History Tobacco Use Types Packs/Day [...] do you attend orthodox or Never 2021 moravian services? Do you [...] AM CDT Re-pended order, Routing to Ro MORGAN Norton C.N.Kirsty, D.N.P. to see if she has any insight regarding this being a GI thing? Telephone Encounter - Rebekah Campbell - 09/13/2021 4:42 PM CDT ORDER/LAB/REFERRAL REQUEST: Name of test/referral/order requested: [id number] Reason for request: Ro placed an order, for Allison to be seen by Infectious Diseases, regarding Hepatitis, however that order should go to Gastroenterology. Please place a new order for this, as listed above, for [place]. Please contact Allison to schedule. Date needed: as soon as possible. Routing: -Order and Lab requests go to [facility] PCP PANEL MANAGERS -Referral Requests go to PCPs BIG MACHINE CONSULTANT pool Please pend orders prior to routing [...] Primary documented in this encounter Care Teams Electric Serviceman Relationship Specialty Start Date End Date Ro Norton APRN, C.N.P., PCP - General Family Medicine D.N.P. [address] [phone] documented as of this encounter
--- OUTSIDE RECORDS SUMMARY | 2022-01-30 19:55 | XMS_ITS | Encounter Summary ---
:1970 Author Organization [facility] Address [address] [place] [address] Care Team Providers Name Role Phone Ro Norton APRN, C.N.P., D.N.P. Primary Care Provider Encounter Details Date Type Department Care Team Description 07/09/2021 Orders Only Pharmacy Prior Auth RO Lyssa Alfred [phone] Social History Tobacco Use Types Packs/Day Years [...] do you attend buddhist or Never 2021 yarsani services? Do you [...] on filedocumented in this encounter Care Teams Inner Tube Cutter Relationship Specialty Start Date End Date Ro Norton APRN, C.N.P., PCP - General Family Medicine D.N.P. [address] [phone] documented as of this encounter
--- OUTSIDE RECORDS SUMMARY | 2022-01-30 19:55 | XMS_ITS | Encounter Summary ---
:1970 Author Organization [facility] Address [address] [place] [address] Care Team Providers Name Role Phone Ro Norton APRN C.N.P., D.N.P. Primary Care Provider Reason for Visit Reason Comments Flank Pain Encounter Details Date Type Department Care Team Description 05/04/2021 Emergency [place] [facility] [place], Derrell Seaman lonephritis Acute (Primary Dx); Department M.D. Pyelonephritis Acute [address] NATHANIEL DE GUZMAN, [place] [phone] (Wo rk) Social History Tobacco Use [...] do you attend restorationist or Never 2021 cheondoism services? Do you [...] be sent through Care Everywhere. Pyelonephritis Adult Bjet-nd-Xeft (Kazakh)documented in this encounter Medications at Time of [...] DME Order fluticasone Inhale 1 puff 2 0 02/03/2021 [...] 0 220 (50) mg capsule mouth daily. cefdinir (OMNICEF) 300 mg Take 1 capsule (300 20 capsule 0 0 05/04/2021 05/14/2021 capsule mg total) by mouth every 12 (twelve) hours for 10 days. penicillin V potassium TAKE 1 TABLET BY 28 tablet 0 021 12/23/2021 (VEETIDS) 500 mg tablet MOUTH FOUR TIMES A DAY UNTIL GONE furosemide (LASIX) 20 mg Take 1 tablet (20 30 tablet 3 12/2206/25/2021 tablet mg total) by mouth daily. nitrofurantoin 0 04/23/2021 07/23/2021 monohydrate (MACROBID) 100 mg capsule phenazopyridine HCl Take by mouth. 0 0 07/23/2021 (PYRIDIUM ORAL) pramipexole (MIRAPEX) Take 2 tablets 180 tablet 3 04/15/2021 09/23/2021 0.125 mg tablet (0.25 mg total) by mouth at bedtime. documented as of this encounter ED Notes [...] Acute Pyelonephritis Acute Natasha Traylor M.D. 05/04/21 1803 Kelli Sewell R.N. - 05/04/2021 3:30 PM CDT Pt states that she had a uti last week. Pt has taken her antibiotics but feels like the infection isback. Pt has pain in left flank. Kelli Sewell R.N. 05/04/21 1530 documented in this encounter Miscellaneous Notes Result Encounter Note - Lorenzo Ramirez M.D. - 05/06/2021 7:49 AM CDT Lorenzo Iglesias M.D. 05/06/21 0749 documented in this encounter [...] spondylosis. Otherwise negative. vRad: ??Findings concordant with tay Post report. Procedure Note Pj Quijano M.D. - [...] Phon e Number [facility]- [address] [place] [address] [facility] [place] [address] (ABNORMAL) Comprehensive Metabolic Panel (05/04/2021 4:32 [...] CDT eGFR-Black/Afri >90 >=60 05/04/2021 [facility] can Nigerian mL/min/BSA 5:10 PM CDT Comment: ----ADDITIONAL INFORMATION---- [...] PM 05/05/19 4:38 Venous) CDT PM CDT Betzalel E Layton M.D. LAB BLOOD ADD-ON Performing Organization Address City/State/ZIP Code Phon e Number [facility]- [address] [place], [place] [address] [facility] [place] [address] System in [place] [address] [place] [address] [place] (ABNORMAL) CBC with Differential, Blood (05/04/2021 4:32 PM CDT) [facility] Method Time Signature Hemoglobin 15.9 (H) [...] Phon e Number [facility]- [address] [place], [place] [address] [facility] [place] [address] System in [place] [address] (ABNORMAL) Bacterial Culture, Aerobic + Susc, Urine (05/04/2021 4:14 PM CDT) [facility] gist Method Time Signature Urine Culture ESCHERICHIA [...] Phon e Number [facility]- [address] [place] [address] [facility] [place] [place] [address] System [address] (ABNORMAL) Urinalysis with Microscopic: Urine, Midstream (05/04/2021 4:14 PM CDT) athologist Signature Source Midstream 05/04/2021 RDWG 4:41 PM CDT Clarity Cloudy (A) Clear 05/04/2021 RDWG 4:41 PM CDT Color [place] (A) 05/04/2021 RDWG 4:41 PM CDT Comment: [...] determine due to colo r interference Specific Bradford SEE COMMENT 1.001 - 1.035 05/04/2021 4:41 [...] Phon e Number [facility]- [address] [place], [place] [address] [facility] [place] [address] System in [place] [address] [address] documented in this encounter Visit [...] section may contain times in both DIRECTOR OF CRITICAL CARE and CDT. Scheduled Medication Order 05/02/2021 05/03/2021 05/04/2021 cefTRIAXone in dextrose (iso-osm) IVPB 1 g (ROCEPHIN) (COMPLETED ) 1700 (New Bag - Provider: Amparo Johnson RShikha)1715 (Stopped - Provider: Apmaro Johnson RShikha) 1 g, intravenous, at 200 mL/hr, Administ er over 15 Minutes, Once, On 05/04/21 at [...] dose documented in this encounter Care Teams Server Support Technician Relationship Specialty Start Date End Date Ro Norton APRN, C.N.P., PCP - General Family Medicine D.N.P. [address] [phone] documented as of this encounter
--- OUTSIDE RECORDS SUMMARY | 2022-01-30 19:55 | XMS_ITS | Encounter Summary ---
:1970 Author Organization [facility] Address [address] [place] [address] Care Team Providers Name Role Phone Ro Norton APRN C.N.P., D.N.P. Primary Care Provider Reason for Visit Reason Comments PA denied Encounter Details Date Type Department Care Team Description 07/09/2021 Clinical Communication Division of Pulmonary Lbuna Mcmillan denied Medicine in [place] Faust M.D. [place] [address] [facility] [address] [place] [phone] Social History Tobacco Use Types Packs/Day Years [...] do you attend presybeterian or Never 2021 latter day services? Do [...] according to the pharmacist. Her insurance with [facility] [employer] terminated 04/19/2021. We had last been waiting for her to update our team with her [employer] ID number. 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 The [place] pharmacy indicates her [place] Medicaid number is [id number]. They looked for her are ID number and the pharmacist indicates she has just straight MA which started 05/21/2021. I was provided the phone number [phone] to complete the PA. I completed the PAover the phone and approval is pending. Telephone Encounter - Aniya Howard - 07/09/2021 9:33 AM CDT Call Message Who is Calling: Call Back: [phone] [facility] Medicaid insurance [phone] Message: The PA for sildenafil got denied. Can we get a denial letter sent. Patient cant afford the medication and is out [place] pharmacy is giving a coupon to help pay for the medication also Aniya JOLLY [phone] documented in this encounter Plan of Treatment Not on filedocumented as of this encounter Visit Diagnoses Not on filedocumented in this encounter Care Teams Geothermal Installer Relationship Specialty Start Date End Date Ro Norton APRN, C.N.P., PCP - General Family Medicine D.N.P. [address] [phone] documented as of this encounter
--- OUTSIDE RECORDS SUMMARY | 2022-01-30 19:55 | XMS_ITS | Encounter Summary ---
:1970 Author Organization [facility] Address [address] [place] [address] Care Team Providers Name Role Phone Ro Norton APRN, C.NDean, MileN.PRaffy Primary Care Provider Encounter Details Date Type Department Care Team Description 07/23/2021 Hospital Encounter Department of Ro Norton Scr eening Lipid Laboratory Medicine in [place] MORANDean, Mile TownsendNRaffyP. [address] [address] [phone] Social History Tobacco Use Types Packs/Day Years [...] do you attend orthodoxy or Never 2021 synagogue services? Do you [...] Organization Address City/State/ZIP Code Phon e Number [facility]- [address] [place] [address] [facility] [place] [address] System in [address] documented in this encounter Visit Diagnoses Diagnosis Screening Lipid documented in this encounter Care Teams Circuit Board Inspector Relationship Specialty Start Date End Date Ro Norton APRN, C.N.P., PCP - General Family Medicine D.N.P. [address] [place] [address] documented as of this encounter
--- OUTSIDE RECORDS SUMMARY | 2022-01-30 19:55 | XMS_ITS | Encounter Summary ---
:1970 Author Organization [facility] Address [address] [place] [address] Care Team Providers Name Role Phone Ro Norton APRN, C.N.P., D.N.P. Primary Care Provider Encounter Details Date Type Department Care Team Description 05/18/2021 Orders Only Pharmacy Prior Auth RO Kayy Velazquez [phone] Social History Tobacco Use Types Packs/Day Years [...] do you attend samaritan or Never 2021 mu-ism services? Do you [...] filedocumented in this encounter Care Teams Manager Actuarial Relationship Specialty Start Date End Date Ro Norton APRN, C.N.P., PCP - General Family Medicine D.N.P. [address] [phone] documented as of this encounter
--- OUTSIDE RECORDS SUMMARY | 2022-01-30 19:55 | XMS_ITS | Encounter Summary ---
:1970 Author Organization [facility] Address [address] [place] [address] Care Team Providers Name Role Phone Ro Norton APRN C.N.P., D.N.P. Primary Care Provider Encounter Details Date Type Department Care Team Description 06/28/2021 Orders Only Division of Pulmonary Archana Mcmillan M.D. Medicine in [place], [facility] [address] [place], [place] [address] [facility] [address] [place] [address] [phone] Social History Tobacco Use Types Packs/Day Years [...] do you attend yazdanism or Never 2021 advent services? Do you [...] on filedocumented in this encounter Care Teams Pharmacologist Relationship Specialty Start Date End Date Ro Norton APRN, C.N.P., PCP - General Family Medicine D.N.P. [address] [phone] documented as of this encounter
--- OUTSIDE RECORDS SUMMARY | 2022-01-30 19:55 | XMS_ITS | Encounter Summary ---
:1970 Author Organization [facility] Address [address] [place] [address] Care Team Providers Name Role Phone Ro Norton APRN, C.N.P., D.N.P. Primary Care Provider Encounter Details Date Type Department Care Team Description 09/22/2021 Orders Only Pharmacy Prior Auth [place] Paulette Barrera [phone] Social History Tobacco Use Types Packs/Day Years [...] do you attend mormonism or Never 2021 episcopalian services? Do you [...] on filedocumented in this encounter Care Teams Ampoule Filler Relationship Specialty Start Date End Date Ro Norton APRN, C.N.P., PCP - General Family Medicine D.N.P. [address] [phone] documented as of this encounter
--- OUTSIDE RECORDS SUMMARY | 2022-01-30 19:55 | XMS_ITS | Encounter Summary ---
:1970 Author Organization [facility] Address [address] [place] [address] Care Team Providers Name Role Phone Ro Norton APRN C.N.P., D.N.P. Primary Care Provider Encounter Details Date Type Department Care Team Description 06/22/2021 Orders Only [facility] Sa rosalinda Erickson M.D. Screening Lipid [address] [place] [phone] (Wo rk) Social History Tobacco Use Types [...] do you attend latter-day or Never 2021 protestant services? Do you [...] AM 07/24/19 9:00 Venous) CDT AM CDT Ninoska Borden APRNNLisandro., D.N.P. LAB BLOOD ADD-ON Performing Organization Address City/State/ZIP Code Phon e Number [facility]- [address] [place] [address] [place] [address] System [address] documented in this encounter Visit Diagnoses Diagnosis Screening Lipid documented in this encounter Care Teams Music Agent Relationship Specialty Start Date End Date Ro Norton APRN, C.N.P., PCP - General Family Medicine D.N.P. [address] [place] [phone] documented as of this encounter
--- OUTSIDE RECORDS SUMMARY | 2022-01-30 19:55 | XMS_ITS | Encounter Summary ---
:1970 Author Organization [facility] Address [address] [place] [address] Care Team Providers Name Role Phone Ro Norton APRN, C.N.P., D.N.P. Primary Care Provider Reason for Visit Reason Comments Form Review Medical opinion form Encounter Details Date Type Department Care Team Description 08/03/2021 Clinical Communication Department of Ro Norton Review Family MedicineElan APRN, (Medical op inion [place] C.N.P., D.N.P. form ) Clinic, in [address] [address] [place], [place] [phone] (Work) [phone] Social History Tobacco Use Types Packs/Day Years [...] do you attend rastafarian or Never 2021 hoahaoism services? Do you [...] Form emailed to Ro Norton for review/signature ACCREDITED LEGAL SECRETARY: [facility] PHONE NUMBER: [phone] INFO REQUESTED: Medical Opinion Form INSTRUCTIONS: Fax back to [phone] Telephone Encounter - Mary Cali - 08/03/2021 3:32 PM CDT Work Comp form received by [facility] Forms Team on 08/03/21 from patient. Please allow 7-10 business days for form completion documented in this encounter Plan of Treatment Not on filedocumented as of this encounter Visit Diagnoses Not on filedocumented in this encounter Care Teams Portable Router Operator Relationship Specialty Start Date End Date Ro Norton, MORGAN, C.N.P., PCP - General Family Medicine D.N.P. [address] [phone] documented as of this encounter
--- OUTSIDE RECORDS SUMMARY | 2022-01-30 19:55 | XMS_ITS | Encounter Summary ---
:1970 Author Organization [facility] Address [address] [place] [address] Care Team Providers Name Role Phone Ro Norton APRN, C.N.P., D.N.P. Primary Care Provider Encounter Details Date Type Department Care Team Description 09/21/2021 Orders Only Pharmacy Prior Auth [place] Paulette Barrera [phone] Social History Tobacco Use Types Packs/Day Years [...] do you attend gnosticist or Never 2021 episcopalian services? Do you [...] on filedocumented in this encounter Care Teams Garment Looper Relationship Specialty Start Date End Date Ro Norton APRN, C.N.P., PCP - General Family Medicine D.N.P. [address] [phone] documented as of this encounter
--- OUTSIDE RECORDS SUMMARY | 2022-01-30 19:55 | XMS_ITS | Encounter Summary ---
:1970 Author Organization [facility] Address [address] [place] [address] Care Team Providers Name Role Phone Ro Norton APRN, C.N.P., D.N.P. Primary Care Provider Reason for Visit Reason Comments Form Review Inder Verbal Order Encounter Details Date Type Department Care Team Description 11/25/2021 Clinical Communication Department of Ro Norton rm Review Family MedicineElan APRN, (Inder Coello rbal [place] C.N.P., D.N.P. Order) Clinic, in [address] [address] [place], [place] [phone] (Work) [phone] Social History Tobacco Use Types Packs/Day Years [...] do you attend synagogue or Never 2021 anglican services? Do you [...] emailed to LARRY Norton for electronic review/signature. BIBLE WORKER: Inder PHONE NUMBER: [phone] INFO REQUESTED: portable oxygen INSTRUCTIONS: Fax information to [phone] documented in this encounter Plan of Treatment Not on filedocumented as of this encounter Visit Diagnoses Not on filedocumented in this encounter Care Teams Bone Char Operator Relationship Specialty Start Date End Date LindRo jacob APRN C.N.P., PCP - General Family Medicine D.N.P. [address] [phone] documented as of this encounter
--- OUTSIDE RECORDS SUMMARY | 2022-01-30 19:55 | XMS_ITS | Encounter Summary ---
:1970 Author Organization [facility] Address [address] [place] [address] Care Team Providers Name Role Phone Ro Norton APRN, C.N.P., D.N.P. Primary Care Provider Encounter Details Date Type Department Care Team Description 06/04/2021 E-Visit [facility] Ingrid Steinberg E xpress Care Online for Care at the [place] Mikala MORA, M .S.N. Seasonal Allergies Building on the [address] [place], [place] [address] [facility] [address] [place], [place] [phone] (Wo rk) [address] [phone] Social History Tobacco Use Types Packs/Day Years [...] do you attend buddhism or Never 2021 evangelical services? Do you [...] Primary documented in this encounter Care Teams Gluing Machine Feeder Relationship Specialty Start Date End Date Ro Norton APRN, C.N.P., PCP - General Family Medicine D.N.P. [address] [phone] documented as of this encounter
--- OUTSIDE RECORDS SUMMARY | 2022-01-30 19:55 | XMS_ITS | Encounter Summary ---
:1970 Author Organization [facility] Address [address] [place] [address] Care Team Providers Name Role Phone Ro Norton APRN, C.N.P., D.N.P. Primary Care Provider Encounter Details Date Type Department Care Team Description 07/26/2021 Orders Only Department of Family Ro Norton He patitis C (Primary Medicine, [place] MORGAN, C.N.P., Dx) Clinic, in [address] [phone] Social History Tobacco Use Types Packs/Day Years [...] do you attend holiness or Never 2021 congregational services? Do you [...] Primary documented in this encounter Care Teams Export Coordinator Relationship Specialty Start Date End Date Ro Norton APRN, C.N.P., PCP - General Family Medicine D.N.P. [address] [phone] documented as of this encounter
--- OUTSIDE RECORDS SUMMARY | 2022-01-30 19:55 | XMS_ITS | Encounter Summary ---
:1970 Author Organization [facility] Address [address] [place] [address] Care Team Providers Name Role Phone Ro Norton APRN C.N.P., D.N.P. Primary Care Provider Reason for Visit Reason Comments Med Refill Encounter Details Date Type Department Care Team Description 06/25/2021 Refill Division of Pulmonary Medicine Lubna Cleary M.D. Med Refill in [facility] costa [address] [facility] [address] [place] [address] [place] [address] [phone] Social History Tobacco Use Types Packs/Day Years [...] do you attend confucianist or Never 2021 yazdanism services? Do you [...] filedocumented in this encounter Care Teams Photo Finish Photographer Relationship Specialty Start Date End Date Ro Norton APRN, C.N.P., PCP - General Family Medicine D.N.P. [address] [phone] documented as of this encounter
--- OUTSIDE RECORDS SUMMARY | 2022-01-30 19:55 | XMS_ITS | Encounter Summary ---
:1970 Author Organization [facility] Address [address] [place] [address] Care Team Providers Name Role Phone Ro Norton APRN C.N.P., D.N.P. Primary Care Provider Encounter Details Date Type Department Care Team Description 07/23/2021 Orders Only Department of [facility] Ro Norton AP RN, Medicine, [place] C.N.P., D .N.P. [facility], [place] [phone] [place] [address] [phone] Social History Tobacco Use Types Packs/Day Years [...] do you attend advent or Never 2021 anabaptism services? Do you [...] on filedocumented in this encounter Care Teams Accounts Payable Supervisor Relationship Specialty Start Date End Date Ro Norton APRN, C.N.P., PCP - General Family Medicine D.N.P. [address] [phone] documented as of this encounter
--- OUTSIDE RECORDS SUMMARY | 2022-01-30 19:55 | XMS_ITS | Encounter Summary ---
:1970 Author Organization [facility] Address [address] [place] [address] Care Team Providers Name Role Phone Ro Norton APRN C.N.P., D.N.P. Primary Care Provider Reason for Visit Reason Comments Vaginal Discharge Encounter Details Date Type Department Care Team Description 07/17/2021 Telemedicine [facility] Express Sangeetha España Vaginal Care at [facility] in Yecenia P.A.-C. (Primary Dx) Bryon [place] [address] [address] [facility] [place] [address] [phone] Social History Tobacco Use Types Packs/Day Years [...] do you attend nondenominational or Never 2021 methodist services? Do you [...] real-time audio/video technology by Yecenia España P.A.-C., [facility] on 07/17/2021. SUBJECTIVE CHIEF COMPLAINT/REASON FOR VISIT Dixie Discharge Allison is a 50 y.o. female who requested evaluation of Vaginal discharge. A video visit was conducted this morning with the patient from the [facility] in [place], [place]. The patient states for 2 days [...] go into her local clinic for a jrqw-os-zboi visit and evaluation. I also told the patient she could purchase an wwcn-xtz-ikhutmn topical anti-yeast cream and apply this externally for some relief of her pruritus. She is to try to keep the vaginal area clean and drywith good air circulation; I therefore recommended loose fitting clothing. Patient voices understanding and is in agreement of plan. [email or web address] Consult conducted via real-time audio/video technology by Yecenia España P.A.-C. [facility] the patient in Patient's Home Consult conducted via real-time video technology by Charleen Blanca in [facility] Rico the patient Allison Schulz on 07/17/2021. I personally spent a total of 10 minutes in tdj-ccal-ff-face video encounter performing a review of the record and/or discussion with the patient/caregiver as described above. The majority of the time was spent in the counseling and coordination of care. Yecenia España P.A.-C. documented in this encounter Plan of Treatment Not on filedocumented as of this encounter Visit Diagnoses Diagnosis Discharge Vaginal - Primary documented in this encounter Care Teams Fast Food Cashier Relationship Specialty Start Date End Date Ro Norton APRN, C.N.P., PCP - General Family Medicine D.N.P. [address] [phone] documented as of this encounter
--- OUTSIDE RECORDS SUMMARY | 2022-01-30 19:55 | XMS_ITS | Encounter Summary ---
:1970 Author Organization [facility] Address [address] [place] [address] Care Team Providers Name Role Phone Ro Norton APRN, C.N.P., D.N.P. Primary Care Provider Reason for Visit Reason Comments Rx Prior Authorization PA DENIED SILDENAFIL 20 MG T AB Encounter Details Date Type Department Care Team Description 06/08/2021 Clinical Communication Pharmacy Prior Auth Robert Mccarty Rx Prior RO [phone] Authorization (PA DENIED SILDENAF [place] 20 MG [...] do you attend caodaism or Never 2021 nondenominational services? Do you [...] R.N. - 06/08/2021 2:38 PM CDT Her [facility] [employer] insurance terminated 04/19/2021. That is the reason behind the denial. Her cell phone is out of service. I called her home phone. She confirmed she has [employer] insurance.She did not have the letter on her with the phone number for [employer] at the time of my call. She indicates she has not received a card yet with an ID number. On 04/27/2021 the sildenafil was [facility]. The [facility] in [place] indicates they transferred the prescription to the [facility] - . The [place] [facility] indicates her [place] Medicaid numberis [id number]. I called [place] Medicaid at [phone] and they indicated we should call [facility]. Trevor wait for Allison to call back with the [facility] number. Telephone Encounter - Robert Mccarty [...] on filedocumented in this encounter Care Teams Residence Supervisor Relationship Specialty Start Date End Date Ro Norton APRN, C.N.P., PCP - General Family Medicine D.N.P. [address] [phone] documented as of this encounter
--- OUTSIDE RECORDS SUMMARY | 2022-01-30 19:55 | XMS_ITS | Encounter Summary ---
:1970 Author Organization [facility] Address [address] [place] [address] Care Team Providers Name Role Phone Ro Norton APRN C.N.P., D.N.P. Primary Care Provider Encounter Details Date Type Department Care Team Description 05/14/2021 Orders Only Division of Pulmonary Archana Mcmillan M.D. Medicine in [place], [facility] [address] [place], [place] [address] [facility] [address] [place] [address] [phone] Social History Tobacco Use Types Packs/Day Years [...] do you attend mandaen or Never 2021 hoahaoism services? Do you [...] on filedocumented in this encounter Care Teams Support Associate Relationship Specialty Start Date End Date Ro Norton APRN, C.N.P., PCP - General Family Medicine D.N.P. [address] [phone] documented as of this encounter
--- OUTSIDE RECORDS SUMMARY | 2022-01-30 19:55 | XMS_ITS | Encounter Summary ---
:1970 Author Organization [facility] Address [address] [place] [address] Care Team Providers Name Role Phone Ro Norton APRN, C.N.Kirsty, D.N.P. Primary Care Provider Encounter Details Date Type Department Care Team Description 10/20/2021 E-Visit [facility] Express Care Anika Lyn Express Care Online for at the [facility] on MORGAN C. N.P. Athlete's Foot the 4th Floor [address] [place] [address] [address] [place] [address] [phone] Social History Tobacco Use Types Packs/Day Years [...] do you attend orthodoxy or Never 2021 samaritan services? Do you [...] Primary documented in this encounter Care Teams Glass Tube Bender Relationship Specialty Start Date End Date Ro Norton APRN, C.N.P., PCP - General Family Medicine D.N.P. [address] [phone] documented as of this encounter
--- OUTSIDE RECORDS SUMMARY | 2022-01-30 19:55 | XMS_ITS | Encounter Summary ---
:1970 Author Organization [facility] Address [address] [place] [address] Care Team Providers Name Role Phone Ro Norton APRN C.N.P., D.N.P. Primary Care Provider Encounter Details Date Type Department Care Team Description 07/29/2021 Orders Only Department of [facility] Ro Norton AP RN, Medicine, [place] C.N.P., D .N.P. [facility], [address] [phone] Social History Tobacco Use Types Packs/Day Years [...] do you attend rastafarian or Never 2021 caodaism services? Do you [...] on filedocumented in this encounter Care Teams Adzing And Boring Machine Operator Relationship Specialty Start Date End Date Ro Norton APRN, C.N.P., PCP - General Family Medicine D.N.P. [address] [phone] documented as of this encounter
[2022-01-30] MEDS: ALBUTEROL SULFATE 2.5 MG/3 ML VIAL.NEB NEB (19:56)
--- OUTSIDE RECORDS SUMMARY | 2022-01-30 19:56 | XMS_ITS | Encounter Summary ---
:1970 Author Organization [facility] Address [address] [place] [address] Care Team Providers Name Role Phone Ro Norton APRN C.N.PRaffy, D.N.P. Primary Care Provider Reason for Referral Medication Prior Authorization - Closed Specialty Diagnoses / Procedures Referred By Contact Refer red To Contact Diagnoses Hypertension Pulmonary Primary (HCC) Lubna Mcmillan M.D. 200 [place] [address] Referral ID Status Reason Start Date Expiration Date Visits Requ ested Visits Authorized [id number] Closed 1 1 ME TANNER Encounter Details Date Type Department Care Team Description 04/27/2021 Orders Only RST CCM Lubna Mcmillan Hypertension Pulmonary 200 [facility] Michael Ansari Primary (HCC) [place], [place] 200 [facility] [address] [place] [address] Social History Tobacco Use Types Packs/Day Years [...] you attend roman catholic or Never 2021 buddhist services? Do you belong to any clubs or No 02/25/2021 organizations such as roman catholic groups, unions, [employer] or athletic groups, or school groups? How [...] (HCC) documented in this encounter Care Teams Photographs Curator Relationship Specialty Start Date End Date Ro Norton APRN, C.N.P., PCP - General Family Medicine D.N.P. [address] [phone] documented as of this encounter
--- OUTSIDE RECORDS SUMMARY | 2022-01-30 19:56 | XMS_ITS | Encounter Summary ---
:1970 Author Organization [facility] Address [address] [place] [address] Care Team Providers Name Role Phone Ro Norton APRN C.N.PRaffy, D.N.P. Primary Care Provider Reason for Visit Reason Comments URI worse the last 2 days. Star ezequiel 4 days ago Appointment Request (Routine) - Closed Specialty Diagnoses / Procedures Referred By Contact Refer red To Contact Family Medicine Referral ID Status Reason Start Date Expiration Date Visits Requ ested Visits Authorized [id number] Closed 12/16/2020 12/16/2021 1 1 Encounter Details Date Type Department Care Team Description 12/17/2020 Telemedicine Department of [facility] Marco Antonio Cervantes onbarrington Obstructive Pulmonary Disease Exacerbation (HCC) (Primary Dx); Medicine, [place] T, P.A.-C. [facility], [address] [address] [place], [place] [phone] (Work) [phone] Social History Tobacco Use Types Packs/Day Years [...] do you attend sikhism or Never 2021 alevism services? Do you belong to any clubs or No 02/25/2021 organizations such as sikhism groups, [employer], [place] or athletic groups, or school groups? How [...] technology by Marco Antonio Cervantes PA-C at [facility] to the patient in patient's home/personal device. At the beginning of visit, I introduced the myself, verified patient's date of , and discussed limitations of virtual visit verses kxms-np-zpoo visit. Patient agreed to proceed on with [...] technology by Marco Antonio Cervantes PA-C at [facility] to the patient in patient's home/personal device. PATIENT EDUCATION Ready to learn, no apparent learning barriers were identified; learning preferences include listening. Explained diagnosis and treatment plan; patient/wind energy mechanic expressed understanding of the content. Patient/caregiver was [...] COVID19 Pending 12/16/2020 12/16/2020 01/05/2021 4:50 AM HEAD STILL OPERATOR documented as of this encounter Care Teams Registration Officer Relationship Specialty Start Date End Date Ro Norton APRN, C.N.P., PCP - General Family Medicine D.N.P. [address] [phone] documented as of this encounter
--- OUTSIDE RECORDS SUMMARY | 2022-01-30 19:56 | XMS_ITS | Encounter Summary ---
:1970 Author Organization [facility] Address [address] [place] [address] Care Team Providers Name Role Phone Ro Norton APRN C.N.P., D.N.P. Primary Care Provider Reason for Visit Reason Comments Med Refill Encounter Details Date Type Department Care Team Description 01/18/2021 Refill Division of Pulmonary Medicine Lubna Cleary M.D. Med Refill in [facility] costa [address] [facility] [address] [place] [address] [place] [address] [phone] Social History Tobacco Use Types Packs/Day Years [...] do you attend voodoo or Never 2021 shinto services? Do you [...] patient's Lasix Script from the [facility] (P: [phone], ). Patient was last seen by you on 09/29/2020 and has no upcoming appointments at this time. ?? Please review the teed up order and approve if appropriate. Thank you, Rafia, Pulmonary Med. Admin. Asst. NO SUPERVISOR documented in this encounter Plan of Treatment Not on filedocumented as of this encounter Visit Diagnoses Not on filedocumented in this encounter Care Teams Psychological Stress Evaluator Relationship Specialty Start Date End Date Ro Norton, MORGAN, C.N.P., PCP - General Family Medicine D.N.P. [address] [phone] documented as of this encounter
--- OUTSIDE RECORDS SUMMARY | 2022-01-30 19:56 | XMS_ITS | Encounter Summary ---
:1970 Author Organization [facility] Address [address] [place] [address] Care Team Providers Name Role Phone Ro Norton APRN C.N.PRaffy, D.N.P. Primary Care Provider Encounter Details Date Type Department Care Team Description 03/31/2021 Orders Only [facility] Pamela Vallecillo APRN, [place] C.N.PRaffy, D.N.P. [address] [phone] [place], [place] [phone] (Wo rk) Social History Tobacco Use [...] do you attend baptism or Never 2021 mormon services? Do you belong to any clubs [...] on filedocumented in this encounter Care Teams Magazine Filler Relationship Specialty Start Date End Date Ro Norton APRN, C.N.P., PCP - General Family Medicine D.N.P. [address] [phone] documented as of this encounter
--- OUTSIDE RECORDS SUMMARY | 2022-01-30 19:56 | XMS_ITS | Encounter Summary ---
:1970 Author Organization [facility] Address [address] [place] [address] Care Team Providers Name Role Phone Ro Norton APRN C.N.P., D.N.P. Primary Care Provider Reason for Visit Reason Comments Follow-up Encounter Details Date Type Department Care Team Description 12/23/2020 Patient Outreach Department of Cathie Phillips Follow-brennan p Cardiovascular Medicine in [place], [place] [address] [facility] [address] [place] [address] [phone] Social History Tobacco Use Types Packs/Day Years [...] do you attend advent or Never 2021 zoroastrianism services? Do you [...] Labs are planned for 01/08/2021 at the [facility]. testing is no longer needed. In collaboration with Dr. Wren a lab order was completedper the [facility] lab guidelines. She was reminded to [...] Hypertension ( HCC) - Primary Medication Therapy Brick Yard Hand Not Anticoa gulant documented in this encounter Additional Health Concerns Infection Onset Date Last Indicated Resolved Time COVID19 Pending 12/16/2020 12/16/2020 01/05/2021 4:50 AM MILL WORKER documented as of this encounter Care Teams Custom Bike Builder Relationship Specialty Start Date End Date Ro Norton APRN, C.N.P., PCP - General Family Medicine D.N.P. [address] [address] documented as of this encounter
--- OUTSIDE RECORDS SUMMARY | 2022-01-30 19:56 | XMS_ITS | Encounter Summary ---
:1970 Author Organization [facility] Address [address] [place] [address] Care Team Providers Name Role Phone Ro Norton APRN C.N.PRaffy, D.N.P. Primary Care Provider Reason for Visit Reason Comments Med Refill Encounter Details Date Type Department Care Team Description 11/24/2020 Refill Department of Family Medicine, Ro Norton APRN, Med Refill [facility], in [place] C .N.PRaffy, D.N.P. [address] [phone] (Wo rk) Social History Tobacco Use Types [...] do you attend baptism or Never 2021 baptist services? Do you [...] on filedocumented in this encounter Care Teams Low Voltage Technician Relationship Specialty Start Date End Date Ro Norton APRN, C.N.P., PCP - General Family Medicine D.N.P. [address] [phone] documented as of this encounter
--- OUTSIDE RECORDS SUMMARY | 2022-01-30 19:56 | XMS_ITS | Encounter Summary ---
:1970 Author Organization [facility] Address [address] [place] [address] Care Team Providers Name Role Phone Ro Norton APRN C.N.P., D.N.P. Primary Care Provider Reason for Visit Reason Comments Care Coordination Encounter Details Date Type Department Care Team Description 01/21/2021 Patient Outreach Department of Miranda Phillips Care C D Stripper rdination Cardiovascular Medicine R.N. in [facility] 200 [facility] [address] [place] [address] [phone] Social History Tobacco Use Types Packs/Day Years [...] do you attend quaker or Never 2021 orthodoxy services? Do you [...] on filedocumented in this encounter Care Teams Radio Board Operator Announcer Relationship Specialty Start Date End Date Ro Norton APRN, C.N.P., PCP - General Family Medicine D.N.P. [address] [phone] documented as of this encounter
--- OUTSIDE RECORDS SUMMARY | 2022-01-30 19:56 | XMS_ITS | Encounter Summary ---
:1970 Author Organization [facility] Address [address] [place] [address] Care Team Providers Name Role Phone Ro Norton APRN C.N.PRaffy, D.N.P. Primary Care Provider Reason for Referral Outpatient (Routine) - Authorized Specialty Diagnoses / Procedures Referred By Contact Francine mitchell To Contact Orthopedic Surgery Yolie Leigh [facility] P[facility]C. [address] [place] [address] Referral ID Status Reason Start Date Expiration Date Visits V isits Requested Authorized [id number] Authorized 04/21/2021 04/21/2022 1 1 ENE STILL UTILITY OPERATOR Outpatient (Routine) - Closed Specialty Diagnoses / Procedures Referred By Contact Francine mitchell To Contact Diagnoses Pain Wrist Right Yolie Leigh [facility] Procedures DX Wrist Right 3+ Views P.A.-C. [address] [place] [phone] Referral ID Status Reason Start Date Expiration Date Visits Requ ested Visits Authorized [id number] Closed 04/21/2021 04/21/2022 1 1 ENE STILL UTILITY OPERATOR Reason for Visit Appointment Request (Routine) - Closed Specialty Diagnoses / Procedures Referred By Contact Refer red To Contact Family Medicine Referral ID Status Reason Start Date Expiration Date Visits Requ ested Visits Authorized [id number] Closed 04/06/2021 04/06/2022 1 1 Encounter Details Date Type Department Care Team Description 04/21/2021 Comprehensive Visit Department of [place] Leigh ist Right Orthopedic Surgery Yolie Cabrera (Primary Dx) [place] [address] [phone] Social History Tobacco Use Types Packs/Day [...] do you attend evangelical or Never 2021 anabaptism services? Do you [...] the ice fracturing her wrist, presented to [facility] on 04/03/2021 and was placed in [...] trying to quit. 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 She is currently not working. She has a son who goes to [place] and plays baseball and she has2 daughters, [...] Yolie Leigh P.A.-C. CT CT Job ID: [id number]/[facility] ENE STILL UTILITY OPERATOR documented in this encounter Plan of Treatment Scheduled Referrals Name Type Priority Associated Order Schedule Diagnoses Orthopedic Surgery Outpatient Referral Routine Ex pected: office visit 05/12/2021 (clinic) (Approximate), Expires: 07/22/2022 documented as of this encounter Results DX Wrist Right 3+ Views (04/21/2021 10:35 AM BENZENE STILL UTILITY OPERATOR) Anatomical Region Laterality Modality Upper Extremity, Wrist, Musculoskeletal RST LOS, Right Digital Radiography Musculoskeletal ARZ LOS, Muskuloskeletal FLA LOS Specimen (Source) Anatomical Collection Method Collection Time Re ceived Time Location / / Volume Laterality 04/21/2021 10:51 AM BENZENE STILL UTILITY OPERATOR Impressions 04/21/2021 10:54 AM BENZENE STILL UTILITY OPERATOR Impacted moderately comminuted, minimally displaced intra-articular [...] variance. Remainder negative. Narrative 04/21/2021 10:54 AM BENZENE STILL UTILITY OPERATOR EXAM: ??DX WRIST RIGHT 3+ VIEWS [...] Right documented in this encounter Care Teams Business Law Teacher Relationship Specialty Start Date End Date Ro Norton APRN, C.N.P., PCP - General Family Medicine D.N.P. [address] [phone] documented as of this encounter
--- OUTSIDE RECORDS SUMMARY | 2022-01-30 19:56 | XMS_ITS | Encounter Summary ---
:1970 Author Organization [facility] Address [address] [place] [address] Care Team Providers Name Role Phone Ro Norton APRN C.N.PRaffy, D.N.P. Primary Care Provider Encounter Details Date Type Department Care Team Description 03/09/2021 Orders Only [facility] Pamela Vallecillo APRN, [place] C.N.PRaffy, D.N.P. [address] [phone] [place], [place] [phone] (Wo rk) Social History Tobacco Use [...] do you attend christianity or Never 2021 taoism services? Do you [...] on filedocumented in this encounter Care Teams Still Photographer Relationship Specialty Start Date End Date Ro Norton APRN, C.N.P., PCP - General Family Medicine D.N.P. [address] [phone] documented as of this encounter
--- OUTSIDE RECORDS SUMMARY | 2022-01-30 19:56 | XMS_ITS | Encounter Summary ---
:1970 Author Organization [facility] Address [address] [place] [address] Care Team Providers Name Role Phone Ro Norton APRN C.N.Kirsty, D.N.P. Primary Care Provider Encounter Details Date Type Department Care Team Description 04/15/2021 Orders Only Department of Family Vikki Hernandez, Medicine, [place] P.Scott, P.A. [facility], in [address] [phone] Social History Tobacco Use [...] do you attend faith or Never 2021 anabaptist services? Do you [...] on filedocumented in this encounter Care Teams Dedicated Regional Driver Relationship Specialty Start Date End Date Ro Norton APRN, C.N.P., PCP - General Family Medicine D.N.P. [address] [phone] documented as of this encounter
--- OUTSIDE RECORDS SUMMARY | 2022-01-30 19:56 | XMS_ITS | Encounter Summary ---
:1970 Author Organization [facility] Address [address] [place] [address] Care Team Providers Name Role Phone Ro Norton APRN C.N.P., D.N.P. Primary Care Provider Encounter Details Date Type Department Care Team Description 12/11/2020 Hospital Encounter Department of Lubna Mcmillan Secondary Pulmonary Hypertension (HCC); Laboratory Medicine Michael Ansari Medication Therapy [facility] Not Anticoa gulant in [place] [phone] [place] [phone] [place], [place] (Work) [phone] Social History Tobacco Use [...] do you attend alevism or Never 2021 pentecostalism services? Do you [...] Secondary Pulmonary Hypertension ( HCC) Medication Therapy Hotel Operations Manager Not Anticoa gulant documented in this encounter Care Teams Dictaphone Mechanic Relationship Specialty Start Date End Date Ro Norton APRN, C.N.P., PCP - General Family Medicine D.N.P. [address] [phone] documented as of this encounter
--- OUTSIDE RECORDS SUMMARY | 2022-01-30 19:56 | XMS_ITS | Encounter Summary ---
:1970 Author Organization [facility] Address [address] [place] [address] Care Team Providers Name Role Phone Ro Norton APRN C.NDean, D.N.P. Primary Care Provider Reason for Referral Outpatient (Routine) - Closed Specialty Diagnoses / Procedures Referred By Contact Refer red To Contact Diagnoses Pain Wrist Right Yolie Leigh [facility] [place] [facility] Procedures DX Wrist Right 3+ Views P.A.-C. [address] [place] [address] Referral ID Status Reason Start Date Expiration Date Visits Requ ested Visits Authorized [id number] Closed 04/21/2021 04/21/2022 1 1 GE INSIDE ADJUSTER Reason for Visit Outpatient (Routine) - Closed Specialty Diagnoses / Procedures Referred By Contact Refer red To Contact Diagnoses Pain Wrist Right Yolie Leigh [facility] [place] [facility] Procedures DX Wrist Right 3+ Views P.A.-C. [address] [place] [address] Referral ID Status Reason Start Date Expiration Date Visits Requ ested Visits Authorized [id number] Closed 04/21/2021 04/21/2022 1 1 Encounter Details Date Type Department Care Team Description 04/21/2021 Hospital Encounter Department of Yolie Leigh in Wrist Right Radiology in [place] Alberto Cabrera P.A.-C. [place], [place] 701 [facility] 701 [facility] Carlos [place] [phone] Social History Tobacco Use Types Packs/Day Years [...] do you attend episcopalian or Never 2021 bahai services? Do you [...] esults for this VIEWS (most inpatients AM DAMAGE INSIDE ADJUSTER procedure a re in and all the results outpatients) section. documented in this encounter Results DX Wrist Right 3+ Views (04/21/2021 10:35 AM DAMAGE INSIDE ADJUSTER) Anatomical Region Laterality Modality Upper Extremity, Wrist, Musculoskeletal RST LOS, Right Digital Radiography Musculoskeletal ARZ LOS, Muskuloskeletal FLA LOS Specimen (Source) Anatomical Collection Method Collection Time Re ceived Time Location / / Volume Laterality 04/21/2021 10:51 AM DAMAGE INSIDE ADJUSTER Impressions 04/21/2021 10:54 AM DAMAGE INSIDE ADJUSTER Impacted moderately comminuted, minimally displaced intra-articular fracture [...] variance. Remainder negative. Narrative 04/21/2021 10:54 AM DAMAGE INSIDE ADJUSTER EXAM: ??DX WRIST RIGHT 3+ VIEWS Procedure [...] Right documented in this encounter Care Teams Corset Fitter Relationship Specialty Start Date End Date Ro Norton APRN, C.N.P., PCP - General Family Medicine D.N.P. [address] [phone] documented as of this encounter
--- OUTSIDE RECORDS SUMMARY | 2022-01-30 19:56 | XMS_ITS | Encounter Summary ---
:1970 Author Organization [facility] Address [address] [place] [address] Care Team Providers Name Role Phone Ro Norton APRN C.N.P., D.N.P. Primary Care Provider Reason for Visit Reason Comments Med Refill Encounter Details Date Type Department Care Team Description 03/31/2021 Clinical Communication [facility] Karine Coles Med Refill [place] A, Pharm.D., [address] [place] [address] R.Ph. [place] [phone] [facility] [phone] [place] [phone] Social History Tobacco Use Types Packs/Day Years [...] do you attend methodist or Never 2021 yazdanism services? Do you [...] a refill of albuterol inhaler. Thank you, [facility] - [place] GRINDER documented in this encounter Plan of Treatment Not on filedocumented as of this encounter Visit Diagnoses Not on filedocumented in this encounter Care Teams Pesticide Applicator Relationship Specialty Start Date End Date Ro Norton APRN, C.N.P., PCP - General Family Medicine D.N.P. [address] [phone] documented as of this encounter
--- OUTSIDE RECORDS SUMMARY | 2022-01-30 19:56 | XMS_ITS | Encounter Summary ---
:1970 Author Organization [facility] Address [address] [place] [address] Care Team Providers Name Role Phone Ro Norton APRN C.N.P., D.N.P. Primary Care Provider Reason for Visit Reason Comments Care Coordination Encounter Details Date Type Department Care Team Description 04/14/2021 Patient Outreach Department of Miranda Phillips Care Dye Can Operator rdination Cardiovascular Medicine R.N. in [facility] 200 [facility] [address] [place] [address] [phone] Social History Tobacco Use Types Packs/Day Years [...] do you attend yarsani or Never 2021 orthodoxy services? Do you [...] to reach her by phone. A message wasSavi Healtho sent through the on line portal. ENT TRANSPORT ORDERLY documented in this encounter Plan of Treatment Not on filedocumented as of this encounter Visit Diagnoses Not on filedocumented in this encounter Care Teams As400 Operator Relationship Specialty Start Date End Date Ro Norton APRN, C.N.P., PCP - General Family Medicine D.N.P. [address] [phone] documented as of this encounter
--- OUTSIDE RECORDS SUMMARY | 2022-01-30 19:56 | XMS_ITS | Encounter Summary ---
:[address] [facility] Address [address] [place] [address] Care Team Providers Name Role Phone Ro Norton APRN C.N.P., D.N.P. Primary Care Provider Encounter Details Date Type Department Care Team Description 02/03/2021 Orders Only Department of Cardiovascular Dior Mcmillan, Medicine in [facility] [address] [place] [address] [address] [place] [address] [phone] (Wo rk) Social History Tobacco Use Types [...] do you attend presybeterian or Never 2021 judaism services? Do you [...] on filedocumented in this encounter Care Teams Pest Control Service Sales Agent Relationship Specialty Start Date End Date Ro Norton APRN, C.N.P., PCP - General Family Medicine D.N.P. [address] [phone] documented as of this encounter
--- OUTSIDE RECORDS SUMMARY | 2022-01-30 19:56 | XMS_ITS | Encounter Summary ---
:1970 Author Organization [facility] Address [address] [place] [address] Care Team Providers Name Role Phone Ro Norton APRN C.N.P., D.N.P. Primary Care Provider Reason for Visit Reason Comments Care Coordination Encounter Details Date Type Department Care Team Description 12/07/2020 Patient Outreach Department of Cathie Phillips Care Avionics Technician rdination Cardiovascular Medicine R.N. in [facility] 200 [facility] [address] [place] [address] [phone] Social History Tobacco Use Types Packs/Day Years [...] Hypertension ( HCC) - Primary Medication Therapy Counter Waiter Not Anticoa gulant documented in this encounter Care Teams Certified Medical Biller Relationship Specialty Start Date End Date Ro Norton APRN, C.N.P., PCP - General Family Medicine D.N.P. [address] [phone] documented as of this encounter
--- OUTSIDE RECORDS SUMMARY | 2022-01-30 19:56 | XMS_ITS | Encounter Summary ---
:1970 Author Organization [facility] Address [address] [place] [address] Care Team Providers Name Role Phone Ro Norton APRN C.N.Kirsty, D.N.P. Primary Care Provider Encounter Details Date Type Department Care Team Description 12/11/2020 Hospital Encounter Department of Ro Norton is Medication Laboratory Medicine MORGAN Ansari, in [place] C.N.Kirsty, D.N.P. [address] [place], [address] [place] [phone] Social History Tobacco Use Types Packs/Day Years [...] do you attend restorationism or Never 2021 worship services? Do you [...] Address City/State/ZIP Code Phon e Number [facility]- [address] [place] [address] [place] [address] [place] [address] [address] documented in this encounter Visit Diagnoses Diagnosis High Risk Medication documented in this encounter Care Teams Groundskeeper Relationship Specialty Start Date End Date Ro Norton APRN C.N.P., PCP - General Family Medicine D.N.P. [address] [place] [phone] documented as of this encounter
--- OUTSIDE RECORDS SUMMARY | 2022-01-30 19:56 | XMS_ITS | Encounter Summary ---
:1970 Author Organization [facility] Address [address] [place] [address] Care Team Providers Name Role Phone Ro Norton APRN C.N.P., D.N.P. Primary Care Provider Reason for Visit Reason Comments Care Coordination Encounter Details Date Type Department Care Team Description 01/25/2021 Patient Outreach Department of Miranda Phillips Care Slat Grader rdination Cardiovascular Medicine R.N. in [facility] 200 [facility] [address] [place] [address] [phone] Social History Tobacco Use Types Packs/Day Years [...] do you attend uatsdin or Never 2021 church services? Do you [...] labs to be drawn 02/15/[address] [facility]. Once we have results we can review to see if she is ready to increase to 10 mg daily. Labs due 02/15/2021 Disposition/Recommendation: self-care is appropriate at this time, patient encouraged to call back with questions. Information/Education: patient/caller able to teach back. Caller agreeable to plan of care: yes. The following references were used: nursing clinical judgement. ESTIMATING CLERK documented in this encounter Plan of [...] Hypertension ( HCC) - Primary Medication Therapy Special Order Jeweler Not Anticoa gulant documented in this encounter Care Teams Groundskeeper Relationship Specialty Start Date End Date Ro Norton APRN, C.N.P., PCP - General Family Medicine D.N.P. [address] [phone] documented as of this encounter
--- OUTSIDE RECORDS SUMMARY | 2022-01-30 19:56 | XMS_ITS | Encounter Summary ---
:1970 Author Organization [facility] Address [address] [place] [address] Care Team Providers Name Role Phone Ro Norton APRN, C.N.P., D.N.P. Primary Care Provider Reason for Visit Reason Comments Cough O2 at night and using neb an d inhalers yellow and light green plegem, covid test yesterday was neg , no nausea vomitting or fever. Encounter Details Date Type Department Care Team Description 03/01/2021 Telemedicine Department of [facility] Ro Norton Ch ronic Obstructive Pulmonary Disease Exacerbation (HCC) (Primary Dx); Medicine, Law MORA, C.N.P., Other Seco ndary Pulmonary Hypertension (HCC); [facility], in D.N.P. Infection Upper Respiratory [address] [phone] Social History Tobacco Use Types Packs/Day [...] do you attend yazdanism or Never 2021 gnosticism services? Do you belong to any clubs or No 02/25/2021 organizations such as yazdanism groups, unions, fraLookTracker or athletic groups, or school groups? How [...] (HCC) Encouraged patient to follow-up with her tooth grinder as ordered. Discussed the importance of frequent [...] COVID-19 emergency, when many states had issued xycpace-ky-poeuv orders. Ro Norton APRN, C.N.P., D.N.P. TUTOR documented in this encounter Plan of Treatment Not on filedocumented as of this encounter Visit Diagnoses Diagnosis Chronic Obstructive Pulmonary Disease Ex acerbation (HCC) - Primary Other Secondary Pulmonary Hypertension ( HCC) Infection Upper Respiratory documented in this encounter Care Teams Security Architect Relationship Specialty Start Date End Date Ro Norton APRN, C.N.P., PCP - General Family Medicine D.N.P. [address] [phone] documented as of this encounter
--- OUTSIDE RECORDS SUMMARY | 2022-01-30 19:56 | XMS_ITS | Encounter Summary ---
:1970 Author Organization [facility] Address [address] [place] [address] Care Team Providers Name Role Phone Ro Norton APRN C.N.PRaffy, D.N.P. Primary Care Provider Reason for Visit Reason Comments URI Encounter Details Date Type Department Care Team Description 02/25/2021 Telemedicine [facility] Express Nickie Zamora, Infe ction Upper Respiratory (Primary Dx); Care at [facility] MORGAN C.N.P., Chronic Obstructive Pulmonar y Disease Without Exacerbation (HCC) [address] TIMO Pace.N.P. [place], [place] [address] [facility] [address] [place], [place] [phone] Social History Tobacco Use Types Packs/Day Years [...] do you attend anabaptism or Never 2021 sabianism services? Do you [...] by Nickie Zamora APRN, C.N.P., D.N.P. in [facility] to the patient's home. HISTORY [...] #2 Chronic Obstructive Pulmonary Disease Without Exacerbation ([facility]) Informed patient that due to the chronicity of her problems coupled with a second acute illness in the past 3 months, she is better served by discussing her plan of care with a member of her primary care team. Patient states that she was unable to get a video visit in [place], therefore she chosethis express care option. Unfortunately [...] file for this visit. Patient has a [facility] online portal account, can view medication list electronically. ?? Ready to learn, no apparent learning barriers were identified; learning preferences include listening. Explained diagnosis and treatment plan; patient/child/caregiver expressed understanding of the content; and is in agreement with the plan above. I personally spent a total of 20 minutes in lse-tfau-zk-face time performing a review of the record and/or discussion with the patient/caregiver as described above. E VARIATION EQUIPMENT TENDER documented in this encounter Plan of Treatment Not on filedocumented as of this encounter Visit Diagnoses Diagnosis Infection Upper Respiratory - Primary Chronic Obstructive Pulmonary Disease Wi thout Exacerbation (HCC) documented in this encounter Care Teams Insurance Claims Adjuster Relationship Specialty Start Date End Date Ro Norton APRN, C.N.P., PCP - General Family Medicine D.N.P. [address] [phone] documented as of this encounter
--- OUTSIDE RECORDS SUMMARY | 2022-01-30 19:56 | XMS_ITS | Encounter Summary ---
:1970 Author Organization [facility] Address [address] [place] [address] Care Team Providers Name Role Phone oR Norton APRN C.N.PRaffy, D.N.P. Primary Care Provider Reason for Visit Reason Onset Date Comments Testing For Upper Respiratory Virus Symptoms 12/16/2020 Encounter Details Date Type Department Care Team Description 12/16/2020 External Outreach Department of [facility] Emilie Cevrantes Contact With And Medicine, [place] Amairani Liao (Suspected) Exposure Clinic, in [address] [facility] (Primary [place], [place] Dx) [address] [facility] [address] [place], [place] [phone] [address] (Work) [phone] Social History Tobacco Use Types Packs/Day Years [...] you attend oriental orthodox or Never 2021 scientology services? Do you [...] COVID19 Pending 12/16/2020 12/16/2020 01/05/2021 4:50 AM PLATE DEVELOPER documented as of this encounter Care Teams Tool And Die Machinist Relationship Specialty Start Date End Date Ro Norton, MORGAN, C.N.P., PCP - General Family Medicine D.N.P. [address] [phone] documented as of this encounter
--- OUTSIDE RECORDS SUMMARY | 2022-01-30 19:56 | XMS_ITS | Encounter Summary ---
:1970 Author Organization [facility] Address [address] [place] [address] Care Team Providers Name Role Phone Ro Norton APRN C.N.P., D.N.P. Primary Care Provider Encounter Details Date Type Department Care Team Description 12/23/2020 Orders Only [facility] Marvin [place] D.D.S. [address] [place], [place] [phone] [place], [place] [phone] (Wo rk) Social History Tobacco Use Types [...] do you attend voodoo or Never 2021 denominational services? Do you [...] COVID19 Pending 12/16/2020 12/16/2020 01/05/2021 4:50 AM BLADDER CLEANER documented as of this encounter Care Teams Apron Cleaner Relationship Specialty Start Date End Date Ro Norton APRN, C.N.P., PCP - General Family Medicine D.N.P. [address] [phone] documented as of this encounter
--- OUTSIDE RECORDS SUMMARY | 2022-01-30 19:56 | XMS_ITS | Encounter Summary ---
:1970 Author Organization [facility] Address [address] [place] [address] Care Team Providers Name Role Phone Ro Norton APRN C.N.P., D.N.P. Primary Care Provider Reason for Visit Reason Comments Med Refill Encounter Details Date Type Department Care Team Description 03/09/2021 Clinical Communication [facility] Karine Coles Med Refill [place] A, Pharm.D., [address] [place] [address] R.Ph. [place] [address] [facility] [phone] [place] [phone] Social History Tobacco Use Types Packs/Day Years [...] do you attend mandaen or Never 2021 adventist services? Do you [...] - 03/09/2021 2:17 PM CST Refill sent. ERCIAL PRODUCTION EDITOR Telephone Encounter - Karine Coles Pharm.D., R.Ph. - 03/09/2021 2:12 PM CST Allison is requesting a refill of Duonebs. Thank you, [facility] - [place] ERCIAL PRODUCTION EDITOR documented in this encounter Plan of Treatment Not on filedocumented as of this encounter Visit Diagnoses Not on filedocumented in this encounter Care Teams Sourcing Internship Relationship Specialty Start Date End Date Ro Norton APRN, C.N.P., PCP - General Family Medicine D.N.P. [address] [phone] documented as of this encounter
--- OUTSIDE RECORDS SUMMARY | 2022-01-30 19:56 | XMS_ITS | Encounter Summary ---
:1970 Author Organization [facility] Address [address] [place] [address] Care Team Providers Name Role Phone Ro Norton APRN C.N.P., D.N.P. Primary Care Provider Reason for Visit Reason Comments Care Coordination Encounter Details Date Type Department Care Team Description 04/21/2021 Patient Outreach Department of Miranda Phillips Care Naturopath rdination Cardiovascular Medicine R.N. in [facility] 200 [facility] [address] [place] [address] [phone] Social History Tobacco Use Types Packs/Day Years [...] do you attend orthodox or Never 2021 episcopal services? Do you [...] attempts to reach her at this time. WAY PAINTER HELPER documented in this encounter Plan of Treatment Not on filedocumented as of this encounter Visit Diagnoses Not on filedocumented in this encounter Care Teams Sweater Designer Relationship Specialty Start Date End Date Ro Norton APRN, C.N.P., PCP - General Family Medicine D.N.P. [address] [phone] documented as of this encounter
--- OUTSIDE RECORDS SUMMARY | 2022-01-30 19:56 | XMS_ITS | Encounter Summary ---
:1970 Author Organization [facility] Address [address] [place] [address] Care Team Providers Name Role Phone Ro Norton APRN C.N.P., D.N.P. Primary Care Provider Reason for Visit Reason Comments Med Refill Encounter Details Date Type Department Care Team Description 01/28/2021 Refill Division of Pulmonary Medicine Lubna Cleary M.D. Med Refill in [facility] [address] [facility] [address] [place] [address] [place] [address] [phone] Social History Tobacco Use Types Packs/Day Years [...] do you attend caodaism or Never 2021 mandaeism services? Do you [...] mcg/dose Last Seen: 09/29/2020-Dr. Mcmillan-Virtual Visit Pharmacy: [facility]-[address]?? TECHNICIAN documented in this encounter Plan of Treatment Not on filedocumented as of this encounter Visit Diagnoses Not on filedocumented in this encounter Care Teams Burlap Roll Coverer Relationship Specialty Start Date End Date Ro Norton APRN, C.N.P., PCP - General Family Medicine D.N.P. [address] [place] [phone] documented as of this encounter
--- OUTSIDE RECORDS SUMMARY | 2022-01-30 19:56 | XMS_ITS | Encounter Summary ---
:1970 Author Organization [facility] Address [address] [place] [address] Care Team Providers Name Role Phone Lonny Norton APRN C.N.P., D.N.P. Primary Care Provider Reason for Visit Reason Comments Medication Question Encounter Details Date Type Department Care Team Description 02/01/2021 Clinical Communication [facility] Olivia Coles ation Question Pharmacy Gamaliel Ratliff Pharm.D., [address] [place] [address]. [address] [address] [facility] [phone] [place] [phone] Social History Tobacco Use Types Packs/Day [...] do you attend jew or Never 2021 evangelical services? Do you [...] APRN, C.N.P., D.N.P. - 02/01/2021 1:46 PM PAPER CUP MACHINE OPERATOR Addended by: LONNY NORTON on: 02/01/2021 01:46 PM Modules accepted: Orders R CUP MACHINE OPERATOR Telephone Encounter - Karine Coles Pharm.D., R.Ph. - 02/01/2021 1:29 PM CST Allison Starr is asking for a refill of her Advair. It has been taken of her medication list. Can she get a new prescription for it? Thank you, [facility] - [place] R CUP MACHINE OPERATOR documented in this encounter Plan of Treatment Not on filedocumented as of this encounter Visit Diagnoses Not on filedocumented in this encounter Care Teams Program Paraprofessional Relationship Specialty Start Date End Date Lonny Norton APRN, C.N.P., PCP - General Family Medicine [place] [address] [phone] documented as of this encounter
--- OUTSIDE RECORDS SUMMARY | 2022-01-30 19:56 | XMS_ITS | Encounter Summary ---
:1970 Author Organization [facility] Address [address] [place] [address] Care Team Providers Name Role Phone Ro Norton APRN C.N.Kirsty, Katelynn.N.P. Primary Care Provider Encounter Details Date Type Department Care Team Description 12/11/2020 Orders Only Department of [facility] Ro Norton, [facility] Medication Medicine, [place] MORGAN C.N.PRaffy, ([facility]) Clinic, in [address] [phone] Social History Tobacco Use Types Packs/Day Years [...] do you attend christian or Never 2021 judaism services? Do you [...] e Number [facility]- [address] [place] [address] [facility] [place] [address] System in [address] documented in this encounter Visit Diagnoses Diagnosis High Risk Medication - Primary documented in this encounter Additional Health Concerns Infection Onset Date Last Indicated Resolved Time COVID19 Pending 12/16/2020 12/16/2020 01/05/2021 4:50 AM BORING MACHINE OPERATOR PRODUCTION documented as of this encounter Care Teams Drink Waiter Relationship Specialty Start Date End Date Ro Norton APRN, C.N.P., PCP - General Family Medicine D.N.P. [address] [phone] documented as of this encounter
--- OUTSIDE RECORDS SUMMARY | 2022-01-30 19:56 | XMS_ITS | Encounter Summary ---
:1970 Author Organization [facility] Address [address] [place] [address] Care Team Providers Name Role Phone Ro Norton APRN C.N.P., D.N.P. Primary Care Provider Encounter Details Date Type Department Care Team Description 02/01/2021 Orders Only [facility] Olga [place] Pharm.D., R.Ph. [address] [address] [place], [place] [phone] (Wo rk) Social History Tobacco Use [...] do you attend advent or Never 2021 oriental orthodox services? Do [...] on filedocumented in this encounter Care Teams Cartridge Feeder Relationship Specialty Start Date End Date Ro Norton APRN, C.N.P., PCP - General Family Medicine D.N.P. [address] [phone] documented as of this encounter
--- OUTSIDE RECORDS SUMMARY | 2022-01-30 19:56 | XMS_ITS | Encounter Summary ---
:1970 Author Organization [facility] Address [address] [place] [address] Care Team Providers Name Role Phone Ro Norton APRN C.N.P., D.N.P. Primary Care Provider Encounter Details Date Type Department Care Team Description 12/16/2020 Patient Self-Triage CONNECTED CARE Symptom Housing Management Representative, Provider Social History Tobacco Use Types Packs/Day [...] or relatives? How often do you attend jehovah's witness or Never 2021 hinduism services? Do you belong to any clubs or No 02/25/2021 organizations such as jehovah's witness groups, unions, fraternal or athletic groups, or [...] COVID19 Pending 12/16/2020 12/16/2020 01/05/2021 4:50 AM OUTSOLE SCHEDULER documented as of this encounter Care Teams Proof Machine Operator Relationship Specialty Start Date End Date Ro Norton APRN, C.N.P., PCP - General Family Medicine D.N.P. [address] [phone] documented as of this encounter
--- OUTSIDE RECORDS SUMMARY | 2022-01-30 19:56 | XMS_ITS | Encounter Summary ---
:1970 Author Organization [facility] Address [address] [place] [address] Care Team Providers Name Role Phone Ro Norton APRN, C.N.Kirsty, D.N.P. Primary Care Provider Encounter Details Date Type Department Care Team Description 04/22/2021 E-Visit [facility] Paige Cooley, Shrutir ess Care Online for Care at the [place] MORGAN, C.N.P., Bladder In fection Building on the D.N.P. (female anatomy, age Floor [address] [place] [address] 12-65 years) [address] [place] [address] [phone] Social History Tobacco Use Types Packs/Day Years [...] Primary documented in this encounter Care Teams Cleaning Custodian Relationship Specialty Start Date End Date Ro Norton APRN, C.N.P., PCP - General Family Medicine D.N.P. [address] [phone] documented as of this encounter
--- OUTSIDE RECORDS SUMMARY | 2022-01-30 19:56 | XMS_ITS | Encounter Summary ---
:1970 Author Organization [facility] Address [address] [place] [address] Care Team Providers Name Role Phone Ro Norton APRN C.N.P., D.N.P. Primary Care Provider Reason for Visit Reason Comments Med Refill Encounter Details Date Type Department Care Team Description 04/15/2021 Refill Department of Family Medicine, Angela Hernandez, Med Refill [facility], in [place] [address] [phone] Social History Tobacco Use [...] do you attend buddhism or Never 2021 holiness services? Do you [...] on filedocumented in this encounter Care Teams Business Development Director Relationship Specialty Start Date End Date Ro Norton APRN, C.N.P., PCP - General Family Medicine D.N.P. [address] [phone] documented as of this encounter
--- OUTSIDE RECORDS SUMMARY | 2022-01-30 19:57 | XMS_ITS | Encounter Summary ---
:1970 Author Organization [facility] Address [address] [place] [address] Care Team Providers Name Role Phone Ro [...] Expiration Date Visits Requ ested Visits Authorized [id number] 1 1 Encounter Details Date Type Department Care Team Description 09/29/2020 Hospital Encounter Division [facility] Cardiovascular Lubna Ansari M.D. Pulmonary Diseases in [place] [address] [address] Hypertension (HCC) [place], [place] [address] [address] [place], [place] [phone] (Work) [phone] Social History Tobacco Use Types Packs/Day Years [...] do you attend mosque or Never 2021 mandaeism services? Do you belong to any clubs or No 02/25/2021 organizations such as mosque groups, unions, [employer]ure [employer]arma or athletic groups, or school groups? How [...] through Care Everywhere.Care Following Your Catheter Procedure (Hong Konger)documented in this encounter Medications at Time of [...] total) by mouth at bedtime. tiotropium (Spiriva Inhale 1 capsule (18 90 capsule 3 202012/17/2020 with HandiHaler) 18 mcg mcg total) daily. inhalation capsule documented as of this encounter Nursing Notes Fabi Burkett R.N. - 09/29/2020 12:40 PM CDT The patient???s right IJ site/dressing is dry and intact. Vital signs are stable. No complaints of chest pain, no difficulty swallowing. No hematoma or bleeding present. No change in neuro status from prior to procedure. Ambulated without difficulty. Dismissal instructions were reviewed in detail as per [id number], with patient and family; they verbalized understanding. [...] mg (VERSED) (COMPLETED) 1107 (Given - Provider: Charile Mcmillan R.N.) 0.5 mg, intravenous, Once as [...] injection documented in this encounter Care Teams Charger Operator Relationship Specialty Start Date End Date Ro Norton APRN, C.N.P., PCP - General Family Medicine D.N.P. [address] [phone] documented as of this encounter
--- OUTSIDE RECORDS SUMMARY | 2022-01-30 19:57 | XMS_ITS | Encounter Summary ---
:1970 Author Organization [facility] Address [address] [place] [address] Care Team Providers Name Role Phone Ro Norton APRN, C.N.P., D.N.P. Primary Care Provider Encounter Details Date Type Department Care Team Description 10/06/[address] [facility] - [facility] Ro Norton APRN, [address] [facility] [address] C.N.P., [place].N.[place]. [place] [address] [place] [address] [place] [address] (Wo rk) Social History Tobacco [...] do you attend sabianist or Never 2021 baptist services? Do you [...] on filedocumented in this encounter Care Teams Tire Recapping Machine Operator Relationship Specialty Start Date End Date Ro Norton APRN, C.N.P., PCP - General Family Medicine D.N.P. [address] [phone] documented as of this encounter
--- OUTSIDE RECORDS SUMMARY | 2022-01-30 19:57 | XMS_ITS | Encounter Summary ---
:1970 Author Organization [facility] Address [address] [place] [address] Care Team Providers Name Role Phone Ro Norton APRN C.N.P., D.N.P. Primary Care Provider Reason for Visit Reason Comments Rx Prior Authorization ambrisentan Encounter Details Date Type Department Care Team Description 11/04/2020 Clinical Department of Nya Clancy Rx Prior Communication Cardiovascular E, R.N. Authorization Medicine in [address] [place] [address] (ambrisentan) [place], [place] [address] [place] [address] [place], [place] [phone] (Work) [phone] Social History Tobacco Use Types Packs/Day Years [...] do you attend taoism or Never 2021 moravian services? Do you [...] on filedocumented in this encounter Care Teams Water Treatment Technician Relationship Specialty Start Date End Date Ro Norton APRN, C.N.P., PCP - General Family Medicine D.N.P. [address] [phone] documented as of this encounter
--- OUTSIDE RECORDS SUMMARY | 2022-01-30 19:57 | XMS_ITS | Encounter Summary ---
:1970 Author Organization [facility] Address [address] [place] [address] Care Team Providers Name Role Phone Ro Norton APRN C.N.P., D.N.P. Primary Care Provider Reason for Visit Reason Comments Rx Prior Authorization [place] DENIED - TADALAFIL 20 MG TABLET Encounter Details Date Type Department Care Team Description 10/12/2020 Clinical Division of [facility], Rx Prior Communication Pulmonary Medicine Joy Amaya Authorization (PA in [place], [address] [facility] DENIED - TADALAFIL 20 [place], [place] MG TABLET) [address] [facility] [address] [place], [place] [phone] (Work) [phone] Social History Tobacco Use Types Packs/Day Years [...] do you attend mormonism or Never 2021 buddhism services? Do you belong to any clubs or No 02/25/2021 organizations such as mormonism groups, unions, fraIencuentra or athletic groups, or school groups? How [...] on filedocumented in this encounter Care Teams Field Crop Farmer Relationship Specialty Start Date End Date Ro Norton APRN, C.N.P., PCP - General Family Medicine D.N.P. [address] [phone] documented as of this encounter
--- OUTSIDE RECORDS SUMMARY | 2022-01-30 19:57 | XMS_ITS | Encounter Summary ---
:1970 Author Organization [facility] Address [address] [place] [address] Care Team Providers Name Role Phone Ro Norton APRN C.N.P., D.N.P. Primary Care Provider Encounter Details Date Type Department Care Team Description 09/21/2020 Clinical Communication Department of Lubna Mcmillan Cardiovascular Medicine Michael Ansari in [facility] [address] [facility] [address] [place] [address] [phone] Social History Tobacco Use Types Packs/Day Years [...] do you attend pentecostalism or Never 2021 yarsanism services? Do you [...] repeat covid swab. Telephone Encounter - Katia Wrad - 09/21/2020 11:[address] Mcmillan, [...] documented as of this encounter Care Teams Risk Management Manager Relationship Specialty Start Date End Date Ro Norton, EMISSION TECHNICIAN, C.N.P., PCP - General Family Medicine D.N.P. [address] [phone] documented as of this encounter
--- OUTSIDE RECORDS SUMMARY | 2022-01-30 19:57 | XMS_ITS | Encounter Summary ---
:1970 Author Organization [facility] Address [address] [place] [address] Care Team Providers Name Role Phone Ro Norton APRN C.N.P., D.N.P. Primary Care Provider Reason for Visit Reason Comments Opsumit Denial Encounter Details Date Type Department Care Team Description 10/15/2020 Clinical Communication Division of Lubna Mcmillan Pulmonary Medicine Michael Ansari in [place], [address] [place] [address] [place] [address] [place], [place] [phone] (Work) [phone] Social History Tobacco Use Types Packs/Day Years [...] do you attend cheondoism or Never 2021 episcopalian services? Do you [...] faxed this letter to pulmonary hypertension at [phone] and scanned in this document to the patient's chart. Thank you, Rafia, Pulmonary Med. Admin. Asst. documented in this encounter Plan of Treatment Not on filedocumented as of this encounter Visit Diagnoses Not on filedocumented in this encounter Care Teams Groover Operator Relationship Specialty Start Date End Date Ro Norton APRN, C.N.P., PCP - General Family Medicine D.N.P. [address] [phone] documented as of this encounter
--- OUTSIDE RECORDS SUMMARY | 2022-01-30 19:57 | XMS_ITS | Encounter Summary ---
:1970 Author Organization [facility] Address [address] [place] [address] Care Team Providers Name Role Phone Ro Norton APRN C.N.P., D.N.P. Primary Care Provider Reason for Visit Appointment Request (Routine) - Closed Specialty Diagnoses / Procedures Referred By Contact Refer red To Contact Cardiovascular Disease Referral ID Status Reason Start Date Expiration Date Visits Requ ested Visits Authorized [id number] Closed 09/29/2020 09/29/2021 1 1 Encounter Details Date Type Department Care Team Description 09/29/2020 Virtual Visit Department of Lubna Mcmillan Cardiovascular Medicine Michael Ansari Pulmonary in [facility] quotation clerk [address] [facility] Hypertension (HCC) [address] [place] [address] [phone] Social History Tobacco Use Types Packs/Day Years [...] do you attend mandaen or Never 2021 christian services? Do you [...] HCC) documented in this encounter Care Teams Microsoft Dynamics Ax Consultant Relationship Specialty Start Date End Date Ro Norton APRN, C.N.P., PCP - General Family Medicine D.N.P. [address] [phone] documented as of this encounter
--- OUTSIDE RECORDS SUMMARY | 2022-01-30 19:57 | XMS_ITS | Encounter Summary ---
:1970 Author Organization [facility] Address [address] [place] [address] Care Team Providers Name Role Phone Ro Norton APRN, C.N.P., D.N.P. Primary Care Provider Encounter Details Date Type Department Care Team Description 09/10/2020 Orders Only RST CCM Lubna Mcmillan M.D. [address] [facility] [address] [place] [address] [place] [address] (Wo rk) Social History Tobacco Use Types [...] do you attend temple or Never 2021 baptist services? Do you [...] on filedocumented in this encounter Care Teams Title Clerk Automobile Relationship Specialty Start Date End Date Ro Norton APRN, C.N.P., PCP - General Family Medicine D.N.P. [address] [phone] documented as of this encounter
--- OUTSIDE RECORDS SUMMARY | 2022-01-30 19:57 | XMS_ITS | Encounter Summary ---
:1970 Author Organization [facility] Address [address] [place] [address] Care Team Providers Name Role Phone Ro Norton APRN C.N.P., D.N.P. Primary Care Provider Encounter Details Date Type Department Care Team Description 08/27/2020 Clinical Communication Division of Pulmonary [facility] in Elan Faust M.D. [address] [place] [address] [phone] Social History Tobacco Use Types Packs/Day Years [...] do you attend taoist or Never 2021 latter day services? Do [...] documented as of this encounter Care Teams Steward Racetrack Relationship Specialty Start Date End Date Ro Norton APRN, C.N.P., PCP - General Family Medicine D.N.P. [address] [phone] documented as of this encounter
--- OUTSIDE RECORDS SUMMARY | 2022-01-30 19:57 | XMS_ITS | Encounter Summary ---
:1970 Author Organization [facility] Address [address] [place] [address] Care Team Providers Name Role Phone Ro Norton APRN C.N.P., D.N.P. Primary Care Provider Reason for Visit Reason Comments Medication Problem Encounter Details Date Type Department Care Team Description 10/12/2020 Clinical Communication [facility] Olivia Coles ation Problem Pharmacy Gamaliel Ratliff Pharm.D., [address] [place] [address]. [address] [address] [facility] [phone] [place] [address] Social History Tobacco Use Types Packs/Day [...] do you attend confucianism or Never 2021 jehovah's witness services? Do [...] CDT New Rx for Sildenafil sent to [facility] pharmacy [place], [place] Telephone Encounter - Lubna Mcmillan M.D. - 10/12/2020 4:34 PM CDT Ok to do sildenafil instead Telephone Encounter - Karine Coles Pharm.D., R.Ph. - 10/12/2020 4:20 PM CDT The PA for tadalafil was denied. The insurance will only cover sildenafil. Please consider this change and send an updated prescription, if appropriate, to [facility] [place]. Thank you, [facility] [place] documented in this encounter Plan of Treatment Not on filedocumented as of this encounter Visit Diagnoses Diagnosis Hypertension Pulmonary Primary (HCC) - P rimary documented in this encounter Care Teams Electronic Musical Instrument Repairer Relationship Specialty Start Date End Date Ro Norton APRN, C.N.P., PCP - General Family Medicine D.N.P. [address] [phone] documented as of this encounter
--- OUTSIDE RECORDS SUMMARY | 2022-01-30 19:57 | XMS_ITS | Encounter Summary ---
:1970 Author Organization [facility] Address [address] [place] [address] Care Team Providers Name Role Phone Ro Norton APRN, C.N.P., D.N.P. Primary Care Provider Encounter Details Date Type Department Care Team Description 10/06/2020 Orders Only [facility] Ro Norton, Screening Mammogram Breast Cancer; [place], C.N.P., Screening Lipi d D.N.P. [address] [phone] Social History Tobacco Use Types Packs/Day Years [...] Lipid documented in this encounter Care Teams Construction Recruiter Relationship Specialty Start Date End Date Ro Norton APRN, C.N.P., PCP - General Family Medicine D.N.P. [address] [phone] documented as of this encounter
--- OUTSIDE RECORDS SUMMARY | 2022-01-30 19:57 | XMS_ITS | Encounter Summary ---
:1970 Author Organization [facility] Address [address] [place] [address] Care Team Providers Name Role Phone Ro Norton APRN, C.N.P., D.N.P. Primary Care Provider Encounter Details Date Type Department Care Team Description 10/12/2020 Orders Only Pharmacy Prior Auth [place] [phone] Social History Tobacco Use Types Packs/Day Years [...] do you attend gnosticist or Never 2021 jehovah's witness services? Do [...] filedocumented in this encounter Care Teams Certified Physician Assistant Relationship Specialty Start Date End Date Ro Norton APRN, C.N.P., PCP - General Family Medicine D.N.P. [address] [phone] documented as of this encounter
--- OUTSIDE RECORDS SUMMARY | 2022-01-30 19:57 | XMS_ITS | Encounter Summary ---
:1970 Author Organization [facility] Address [address] [place] [address] Care Team Providers Name Role Phone Ro Norton APRN C.N.PRaffy, D.N.P. Primary Care Provider Encounter Details Date Type Department Care Team Description 10/02/2020 Orders Only Department of Lubna Mcmillan Pulmonary Hypertension (HCC) (Primary Dx); Cardiovascular Medicine Michael Ansari Shortness Of Breath in [facility] [address] [facility] [address] [place] [address] [phone] Social History Tobacco Use Types Packs/Day Years [...] do you attend mormonism or Never 2021 denominational services? Do you [...] Breath documented in this encounter Care Teams Try Out Person Relationship Specialty Start Date End Date Ro Norton APRN, C.N.P., PCP - General Family Medicine D.N.P. [address] [phone] documented as of this encounter
--- OUTSIDE RECORDS SUMMARY | 2022-01-30 19:57 | XMS_ITS | Encounter Summary ---
:1970 Author Organization [facility] Address [address] [place] [address] Care Team Providers Name Role Phone Ro Norton APRN C.N.PRaffy, D.N.P. Primary Care Provider Reason for Referral Outpatient (Routine) - Closed Specialty Diagnoses / Procedures Referred By Contact Refer red To Contact Cardiovascular Disease Lubna Mcmillan [address] [place] M.D. [address] [place] [address] Referral ID Status Reason Start Date Expiration Date Visits Requ ested Visits Authorized [id number] Closed 09/23/2020 09/23/2021 1 1 Encounter Details Date Type Department Care Team Description 09/23/2020 Orders Only Department of Lubna Mcmillan Cardiovascular Medicine Michael Ansari Pulmonary Hypertension in [facility] botany laboratory assistant 200 [facility] (HCC) (Primary Dx) [address] [place] [address] [phone] Social History Tobacco Use Types Packs/Day Years [...] do you attend voodoo or Never 2021 yazidism services? Do you belong to any clubs or No 02/25/2021 organizations such as voodoo groups, unions, fraTravelMuse or athletic groups, or school groups? How [...] Primary documented in this encounter Care Teams Dock Loader Relationship Specialty Start Date End Date Ro Norton APRN, C.N.P., PCP - General Family Medicine D.N.P. [address] [phone] documented as of this encounter
--- OUTSIDE RECORDS SUMMARY | 2022-01-30 19:57 | XMS_ITS | Encounter Summary ---
:1970 Author Organization [facility] Address [address] [place] [address] Care Team Providers Name Role Phone Ro Norton APRN C.N.P., D.N.P. Primary Care Provider Reason for Visit Reason Comments COVID Inquiry Encounter Details Date Type Department Care Team Description 09/07/2020 Clinical Communication Central Appointment [facility] Office in [address] [address] Social History Tobacco Use Types [...] do you attend lutheran or Never 2021 denominational services? Do you [...] on filedocumented in this encounter Care Teams House Shorer Relationship Specialty Start Date End Date Ro Norton APRN, C.N.P., PCP - General Family Medicine D.N.P. [address] [phone] documented as of this encounter
--- OUTSIDE RECORDS SUMMARY | 2022-01-30 19:57 | XMS_ITS | Encounter Summary ---
:1970 Author Organization [facility] Address [address] [place] [address] Care Team Providers Name Role Phone Ro Norton APRN, C.N.P., D.N.P. Primary Care Provider Encounter Details Date Type Department Care Team Description 08/31/[address] [facility] Pharmacy Lubna Hendricks M.D. 12[address] [facility] [address] [place] [address] [place], [place] [phone] (Wo rk) Social History Tobacco Use Types [...] you attend oriental orthodox or Never 2021 yarsanism services? Do you [...] on filedocumented in this encounter Care Teams Project Systems Engineer Relationship Specialty Start Date End Date Ro Norton APRN, C.N.P., PCP - General Family Medicine D.N.P. [address] [phone] documented as of this encounter
--- OUTSIDE RECORDS SUMMARY | 2022-01-30 19:57 | XMS_ITS | Encounter Summary ---
:1970 Author Organization [facility] Address [address] [place] [address] Care Team Providers Name Role Phone Ro Norton APRN, C.N.P., D.N.P. Primary Care Provider Encounter Details Date Type Department Care Team Description 09/10/2020 Orders Only [facility] Pharmacy - Ro Servin APRN, [address] C.N.P., [place] [address] [place] [address] [place] [address] (Wo rk) Social History Tobacco [...] do you attend yarsani or Never 2021 hinduism services? Do you [...] on filedocumented in this encounter Care Teams Shop Tailor Relationship Specialty Start Date End Date Ro Norton APRN, C.N.P., PCP - General Family Medicine D.N.P. [address] [phone] documented as of this encounter
--- OUTSIDE RECORDS SUMMARY | 2022-01-30 19:57 | XMS_ITS | Encounter Summary ---
:1970 Author Organization [facility] Address [address] [place] [address] Care Team Providers Name Role Phone Ro Norotn APRN C.N.P., D.N.P. Primary Care Provider Encounter Details Date Type Department Care Team Description 10/03/2020 Orders Only [facility] Pharmacy [place]ga [place] Pharm.D., R.Ph. [address] [phone] [place], [place] [phone] (Wo rk) Social History Tobacco Use [...] do you attend protestant or Never 2021 hoahaoism services? Do you [...] on filedocumented in this encounter Care Teams Boat Pilot Relationship Specialty Start Date End Date Ro Norton APRN, C.N.P., PCP - General Family Medicine D.N.P. [address] [phone] documented as of this encounter
--- OUTSIDE RECORDS SUMMARY | 2022-01-30 19:57 | XMS_ITS | Encounter Summary ---
:1970 Author Organization [facility] Address [address] [place] [address] Care Team Providers Name Role Phone Ro Norton APRN, C.N.P., D.N.P. Primary Care Provider Encounter Details Date Type Department Care Team Description 10/12/2020 Orders Only [facility] Pharmacy - Ro Servin APRN, [address] [facility] 1 C.N.P., [place] [address] [place] [address] [place] [address] (Wo rk) Social History Tobacco [...] do you attend sabianist or Never 2021 sikh services? Do you [...] on filedocumented in this encounter Care Teams Pressfitter Relationship Specialty Start Date End Date Ro Norton APRN, C.N.P., PCP - General Family Medicine D.N.P. [address] [phone] documented as of this encounter
--- OUTSIDE RECORDS SUMMARY | 2022-01-30 19:57 | XMS_ITS | Encounter Summary ---
:1970 Author Organization [facility] Address [address] [place] [address] Care Team Providers Name Role Phone Ro Norton APRN C.N.PRaffy, D.N.P. Primary Care Provider Reason for Visit Outpatient (Routine) - Closed Specialty Diagnoses / Procedures Referred By Contact Refer red To Contact Cardiovascular Disease Lubna Mcmillan [address] [place] M.D. [address] [place] [phone] Referral ID Status Reason Start Date Expiration Date Visits Requ ested Visits Authorized [id number] Closed 09/23/2020 09/23/2021 1 1 Encounter Details Date Type Department Care Team Description 09/28/2020 Virtual Visit Department of Lubna Mcmillan M.D. [address] [place] [phone] Shortness Of Breath Cardiovascular Medicine Kirsten Barton, R.NRaffy [address] [place] [phone] in [facility] [address] [place] [phone] Social History Tobacco Use Types Packs/Day [...] do you attend episcopalian or Never 2021 mandaen services? Do you [...] pm. 5. Stay within 100 miles of [place] overnight 6. Take all medications as instructed 7. Call the [facility] Service Line ([phone]) the evening before the procedure between the [...] Breath documented in this encounter Care Teams Assistant Strength Coach Relationship Specialty Start Date End Date Ro Norton APRN, C.N.P., PCP - General Family Medicine D.N.P. [address] [phone] documented as of this encounter
--- OUTSIDE RECORDS SUMMARY | 2022-01-30 19:57 | XMS_ITS | Encounter Summary ---
:1970 Author Organization [facility] Address [address] [place] [address] Care Team Providers Name Role Phone Ro [...] Expiration Date Visits Requ ested Visits Authorized [id number] 1 1 Encounter Details Date Type Department Care Team Description 09/29/2020 Surgery Division of [facility] HEART CATH ETERIZATION - Cardiovascular Diseases [facility] in [facility] [address] [facility] [address] [place] [address] [phone] Social History Tobacco Use Types Packs/Day Years [...] you attend oriental orthodox or Never 2021 sabianist services? Do you [...] through Care Everywhere.Care Following Your Catheter Procedure (Maltese)documented in this encounter Medications at Time of [...] instructions were reviewed in detail as per [id number], with patient and family; they verbalized understanding. [...] needed, line care, Starting on u09/29/20 at 1106, Intraprocedure (CV), Prior to and [...] injection documented in this encounter Care Teams Timber Hand Relationship Specialty Start Date End Date Ro Norton APRN, C.N.P., PCP - General Family Medicine D.N.P. [address] [phone] documented as of this encounter
--- OUTSIDE RECORDS SUMMARY | 2022-01-30 19:57 | XMS_ITS | Encounter Summary ---
:1970 Author Organization [facility] Address [address] [place] [address] Care Team Providers Name Role Phone Ro Norton APRN C.N.P., D.N.P. Primary Care Provider Encounter Details Date Type Department Care Team Description 08/27/2020 Diagnostic Division of Pulmonary Lubna Mcmillan, Other Secondary Pulmonary Hypertension (HCC); Medicine [place] Short[place] Breath [place] [address] [facility] [address] [place] [address] [phone] Social History Tobacco Use Types Packs/Day Years [...] do you attend protestant or Never 2021 rastafarian services? Do you [...] Results Oxygen Titration (08/27/2020 8:39 AM CDT) [facility] gist Method Time Signature [1] Inspired [...] documented as of this encounter Care Teams After School Teacher Relationship Specialty Start Date End Date Ro Norton APRN, C.N.P., PCP - General Family Medicine D.N.P. [address] [phone] documented as of this encounter
--- OUTSIDE RECORDS SUMMARY | 2022-01-30 19:57 | XMS_ITS | Encounter Summary ---
:1970 Author Organization [facility] Address [address] [place] [address] Care Team Providers Name Role Phone Ro Norton APRN, C.N.P., D.N.P. Primary Care Provider Reason for Visit Reason Comments Rx Prior Authorization [place] DENIED - NICOTROL INH 10M G Encounter Details Date Type Department Care Team Description 09/14/2020 Clinical Division of [facility], Rx Prior Communication Pulmonary Medicine Joy Amaya Authorization (PA in [place], [address] [facility] DENIED - N[place] [address] ) [address] [facility] [address] [place], [place] [phone] (Work) [phone] Social History Tobacco Use Types Packs/Day Years [...] do you attend sabianism or Never 2021 alevism services? Do you [...] documented as of this encounter Care Teams Accounting Manager Cpa Relationship Specialty Start Date End Date Ro Norton APRN, C.N.P., PCP - General Family Medicine D.N.P. [address] [phone] documented as of this encounter
--- OUTSIDE RECORDS SUMMARY | 2022-01-30 19:57 | XMS_ITS | Encounter Summary ---
:1970 Author Organization [facility] Address [address] [place] [address] Care Team Providers Name Role Phone Ro Norton APRN, C.N.P., D.N.P. Primary Care Provider Encounter Details Date Type Department Care Team Description 09/02/2020 Orders Only Pharmacy Prior Auth RO Ro Norton APRN, C.N.P., D.N.P. [address] [place] [phone] (Wo rk) Social History Tobacco Use [...] do you attend nondenominational or Never 2021 jew services? Do you [...] on filedocumented in this encounter Care Teams Deployment Specialist Relationship Specialty Start Date End Date Ro Norton APRN, C.N.P., PCP - General Family Medicine D.N.P. [address] [phone] documented as of this encounter
--- OUTSIDE RECORDS SUMMARY | 2022-01-30 19:57 | XMS_ITS | Encounter Summary ---
:1970 Author Organization [facility] Address [address] [place] [address] Care Team Providers Name Role Phone Ro Norton APRN, C.N.P., D.N.P. Primary Care Provider Encounter Details Date Type Department Care Team Description 09/14/2020 Orders Only Pharmacy Prior Auth [place] Manuel [phone] Social History Tobacco Use Types Packs/Day Years [...] do you attend faith or Never 2021 zoroastrian services? Do you [...] documented as of this encounter Care Teams Packer Inspector Relationship Specialty Start Date End Date Ro Norton APRN, C.N.P., PCP - General Family Medicine D.N.P. [address] [phone] documented as of this encounter
--- OUTSIDE RECORDS SUMMARY | 2022-01-30 19:57 | XMS_ITS | Encounter Summary ---
:1970 Author Organization [facility] Address [address] [place] [address] Care Team Providers Name Role Phone Ro Norton APRN, C.N.P., D.N.P. Primary Care Provider Encounter Details Date Type Department Care Team Description 10/12/2020 Orders Only [facility] Pharmacy Lubna Hendricks M.D. 1222 [facility] [address] [place] [address] [place], [place] [phone] (Wo rk) Social History Tobacco Use Types [...] do you attend pentecostalism or Never 2021 holiness services? Do you [...] on filedocumented in this encounter Care Teams Technical Services Specialist Relationship Specialty Start Date End Date Ro Norton APRN, C.N.P., PCP - General Family Medicine D.N.P. [address] [phone] documented as of this encounter
--- OUTSIDE RECORDS SUMMARY | 2022-01-30 19:57 | XMS_ITS | Encounter Summary ---
:1970 Author Organization [facility] Address [address] [place] [address] Care Team Providers Name Role Phone Ro Norton APRN C.N.P., D.N.P. Primary Care Provider Reason for Visit Reason Comments Tadalafil Denial Encounter Details Date Type Department Care Team Description 10/15/2020 Clinical Communication Division of Lubna Mcmillan Pulmonary Medicine Michael Ansari in [place], [address] [place] [address] [place] [address] [place], [place] [phone] (Work) [phone] Social History Tobacco Use Types Packs/Day Years [...] do you attend jew or Never 2021 restorationist services? Do you [...] faxed this letter to pulmonary hypertension at [phone] and scanned in this document to the patient's chart. Thank you, [facility] Pulmonary Med. Admin. Asst. documented in this encounter Plan of Treatment Not on filedocumented as of this encounter Visit Diagnoses Not on filedocumented in this encounter Care Teams Dinkey Operator Relationship Specialty Start Date End Date Ro Norton APRN, C.N.P., PCP - General Family Medicine D.N.P. [address] [phone] documented as of this encounter
--- OUTSIDE RECORDS SUMMARY | 2022-01-30 19:57 | XMS_ITS | Encounter Summary ---
:1970 Author Organization [facility] Address [address] [place] [address] Care Team Providers Name Role Phone Ro Norton APRN C.N.PRaffy, D.N.P. Primary Care Provider Reason for Visit Appointment Request (Routine) - Closed Specialty Diagnoses / Procedures Referred By Contact Refer red To Contact Referral ID Status Reason Start Date Expiration Date Visits Requ ested Visits Authorized [id number] Closed 08/07/2020 08/07/2021 1 1 Encounter Details Date Type Department Care Team Description 08/31/2020 Office Visit Department of Lubna Mcmillan Cardiovascular Medicine Michael Ansari Pulmonary in [facility] botany technician [address] [facility] Hypertension (HCC) [address] [place], [place] (Primary Dx) [place] [address] [phone] Social History Tobacco Use Types Packs/Day Years [...] do you attend yazidi or Never 2021 yarsani services? Do you [...] [facility] [place], COPD with anatomic emphysema and ongoing tobacco [...] 8. Agitated saline contrast administered. 9. No zioey-lv-uhhr shunt at atrial level at rest or [...] Primary documented in this encounter Care Teams Supervisor Printing Shop Relationship Specialty Start Date End Date Ro Norton APRN, C.N.P., PCP - General Family Medicine D.N.P. [address] [phone] documented as of this encounter
--- OUTSIDE RECORDS SUMMARY | 2022-01-30 19:57 | XMS_ITS | Encounter Summary ---
:1970 Author Organization [facility] Address [address] [place] [address] Care Team Providers Name Role Phone Ro Norton APRN, C.N.P., D.N.P. Primary Care Provider Encounter Details Date Type Department Care Team Description 10/14/2020 Orders Only Pharmacy Prior Auth [place] Ro Norton APRN, C.N.P., D.N.P. [address] [place] [phone] (Wo rk) Social History Tobacco Use [...] do you attend gnosticist or Never 2021 yarsani services? Do you [...] on filedocumented in this encounter Care Teams Industrial Electrician Journeyman Relationship Specialty Start Date End Date Ro Norton APRN, C.N.P., PCP - General Family Medicine D.N.P. [address] [phone] documented as of this encounter
--- OUTSIDE RECORDS SUMMARY | 2022-01-30 19:58 | XMS_ITS | Encounter Summary ---
:1970 Author Organization [facility] Address [address] [place] [address] Care Team Providers Name Role Phone Ro Norton APRN C.N.P., D.N.P. Primary Care Provider Encounter Details Date Type Department Care Team Description 08/20/2020 Orders Only Department of Lubna Mcmillan Hepatitis C Chronic Cardiovascular Medicine Michael Ansari (HCC) (Primary Dx) in [facility] botany laboratory assistant [address] [facility] [address] [place] [address] [phone] Social History Tobacco Use Types Packs/Day Years [...] do you attend mosque or Never 2021 mosque services? Do you [...] documented as of this encounter Care Teams Merchandising Intern Relationship Specialty Start Date End Date Ro Norton APRN, C.N.P., PCP - General Family Medicine D.N.P. [address] [phone] documented as of this encounter
--- OUTSIDE RECORDS SUMMARY | 2022-01-30 19:58 | XMS_ITS | Encounter Summary ---
:1970 Author Organization [facility] Address [address] [place] [address] Care Team Providers Name Role Phone Ro Norton APRN, C.N.P., D.N.P. Primary Care Provider Reason for Visit Reason Comments Social Work and Cardiovascular Consults for RST Orders for [facility] Encounter Details Date Type Department Care Team Description 06/11/2020 Clinical Department of Ro Norton Work and Communication Family Medicine, MORGAN Ansari, Cardiovasc stephanie [place] C.N.P., D.N.P. Consults for RST Clinic, in [address] (Orders fo r [address]) [address] [place] [phone] [place], [place] [phone] (Work) [phone] Social History Tobacco Use Types Packs/Day Years [...] do you attend taoist or Never 2021 moravian services? Do you [...] direct that person to call us at [phone]. If you have questions, please call us at [phone] or [phone]. documented in this encounter Plan of Treatment Not on filedocumented as of this encounter Visit Diagnoses Not on filedocumented in this encounter Additional Health Concerns Infection Onset Date Last Indicated Resolved Time COVID19 Pending 06/19/2020 06/19/2020 06/19/2020 10:46 AM CDT documented as of this encounter Care Teams Lumber Scaler Relationship Specialty Start Date End Date Ro Norton APRN, C.N.P., PCP - General Family Medicine D.N.P. [address] [phone] documented as of this encounter
--- OUTSIDE RECORDS SUMMARY | 2022-01-30 19:58 | XMS_ITS | Encounter Summary ---
:1970 Author Organization [facility] Address [address] [place] [address] Care Team Providers Name Role Phone Ro Norton APRN, C.N.P., D.N.P. Primary Care Provider Reason for Visit Reason Comments Follow-up Outpatient (Routine) - Closed Specialty Diagnoses / Procedures Referred By Contact Refer red To Contact Family Medicine Diagnoses Chronic Obstructive Pulmonary Disease Exacerbation (HCC) Ro Norton, [facility] MORGAN, C.N.P., D.N.P. 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 Anomaly Heart Congenital (HCC) [address] [phone] Social History Tobacco Use Types Packs/Day [...] do you attend muslim or Never 2021 tenriism services? Do you [...] Other Secondary Pulmonary Hypertension (HCC) She has risk reduction counselor ordered scheduled for July 01. - Cardiovascular [...] (HCC) documented in this encounter Care Teams Iron Bender Relationship Specialty Start Date End Date Ro Norton APRN, C.N.P., PCP - General Family Medicine D.N.P. [address] [phone] documented as of this encounter
--- OUTSIDE RECORDS SUMMARY | 2022-01-30 19:58 | XMS_ITS | Encounter Summary ---
:1970 Author Organization [facility] Address [address] [place] [address] Care Team Providers Name Role Phone Ro Norton APRN C.N.Kirsty, Katelynn.N.P. Primary Care Provider Encounter Details Date Type Department Care Team Description 06/01/2020 Clinical Communication Department of [facility] Ro Norton, Medicine, [place] MORGAN C.N.PRaffy, Clinic, in [place] [address] [phone] Social History Tobacco Use Types Packs/Day Years [...] do you attend yazdanism or Never 2021 islam services? Do you [...] the phone between 7 am-6 pm, Monday-Monday. [place]: [phone] [place]: [phone] [place]: [phone] [place]: [phone] [place]: [phone] [facility]: [phone] [facility] Part[place], [place], or [place] [facility]: [phone] [place]:[phone] [place]: [phone] Thank you for trusting your health care to [facility]. documented in this encounter Plan of Treatment Not on filedocumented as of this encounter Visit Diagnoses Not on filedocumented in this encounter Care Teams Gas Check Pad Maker Relationship Specialty Start Date End Date Ro Norton APRN, C.N.P., PCP - General Family Medicine D.N.P. [address] [phone] documented as of this encounter
--- OUTSIDE RECORDS SUMMARY | 2022-01-30 19:58 | XMS_ITS | Encounter Summary ---
:1970 Author Organization [facility] Address [address] [place] [address] Care Team Providers Name Role Phone Ro Norton APRN C.N.P., D.N.P. Primary Care Provider Encounter Details Date Type Department Care Team Description 08/19/2020 Diagnostic Division of Pulmonary Lubna Mcmillan, Other Secondary Pulmonary Hypertension (HCC); Medicine in [place] Shortness Of Breath [place] [address] [facility] [address] [place] [phone] Social History Tobacco Use Types Packs/Day Years [...] do you attend adventism or Never 2021 restoration services? Do you [...] for the very basics like Not h darniel at all 02/25/2021 food, housing, medical care, [...] Address City/State/ZIP Code Phon e Number [place] documented in this encounter Visit Diagnoses Diagnosis Other Secondary Pulmonary Hypertension ( HCC) Shortness Of Breath documented in this encounter Care Teams Ground Instructor Basic Relationship Specialty Start Date End Date Ro Norton APRN, C.N.P., PCP - General Family Medicine D.N.P. [address] [phone] documented as of this encounter
--- OUTSIDE RECORDS SUMMARY | 2022-01-30 19:58 | XMS_ITS | Encounter Summary ---
:[address] [facility] Address [address] [place] [address] Care Team Providers Name Role Phone Ro Norton APRN C.N.P., D.N.P. Primary Care Provider Encounter Details Date Type Department Care Team Description 06/29/[address] [facility] Express Care Lennie Miller, RE: Express Care Online at the [facility] on MORGAN, C.N.P., for Seasonal Allergies the 4th Floor M.S.N. [address] [facility] [address] [place] [address] [place], [place] [phone] Social History Tobacco Use Types Packs/Day Years [...] do you attend rastafarian or Never 2021 latter day services? Do [...] Allergic documented in this encounter Care Teams Hydrometallurgical Engineer Relationship Specialty Start Date End Date Ro Norton APRN, C.N.P., PCP - General Family Medicine D.N.P. [address] [phone] documented as of this encounter
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
--- OUTSIDE RECORDS SUMMARY | 2022-01-30 19:58 | XMS_ITS | Encounter Summary ---
:1970 Author Organization [facility] Address [address] [place] [address] Care Team Providers Name Role Phone Ro Norton APRN C.N.P., D.N.P. Primary Care Provider Encounter Details Date Type Department Care Team Description 08/06/2020 Orders Only RST CCM Lubna Mcmillan Other Secondary [address] [facility] Michael Ansari Pulmonary Hypertension [place], [place] [address] [facility] (HCC) (Primary Dx) [address] [place] [address] Social History Tobacco Use Types Packs/Day Years [...] do you attend shinto or Never 2021 sabianist services? Do you [...] PCR, Varies Asymptomatic (08/27/2020 8:37 AM CDT) [employer] Method Time Signature SARS CoV-2 Swab, 08/27/2020 [...] Drug Administration an d is used per tsa screener's instructions. Performance characteristics were verified by [facility] in a manner consistent with CLIA requirements. Visit the CDC website: https://www.cdc.g ov/coronavirus/ for the most recent guidelines on Coron avirus testing. Fact Sheet for Healthcare Providers: https://www.fda.gov/media/487904/downloa d Fact Sheet for Patients: https://www.fda.gov/media/567269/downloa d Specimen Anatomical Collection Method Collection Time Receive d Time (Source) Location / / Volume Laterality Varies 08/27/2020 8:37 AM 9:11 (Nasopharynx) CDT AM CDT Lubna Mcmillan M.D. LAB MICROBIOLOGY - GENERAL O RDERABLES Performing Organization Address City/State/ZIP Code Phon e Number [facility] - [address] [place], [place] [address] [facility] [place] [address] [facility] [place] [address] documented in this encounter Visit Diagnoses Diagnosis Other Secondary Pulmonary Hypertension ( HCC) - Primary documented in this encounter Care Teams Lithographic Press Feeder Relationship Specialty Start Date End Date Ro Norton APRN, C.N.P., PCP - General Family Medicine D.N.P. [address] [address] documented as of this encounter
--- OUTSIDE RECORDS SUMMARY | 2022-01-30 19:58 | XMS_ITS | Encounter Summary ---
:1970 Author Organization [facility] Address [address] [place] [address] Care Team Providers Name Role Phone Ro Norton APRN C.N.Kirsty, D.N.P. Primary Care Provider Reason for Referral Outpatient (Routine) - Closed Specialty Diagnoses / Procedures Referred By Contact Refer red To Contact Diagnoses Other Secondary Pulmonary Hypertension (HCC) Shortness Of Breath Lubna Mcmillan M.D. [facility] Procedures Echo Transthoracic (TTE) [address] [place] [address] Referral ID Status Reason Start Date Expiration Date Visits Requ ested Visits Authorized [id number] Closed 07/01/2020 07/01/2021 1 1 Reason for Visit Outpatient (Routine) - Closed Specialty Diagnoses / Procedures Referred By Contact Refer red To Contact Diagnoses Other Secondary Pulmonary Hypertension (HCC) Shortness Of Breath Lubna Mcmillan M.D. [facility] Procedures Echo Transthoracic (TTE) [address] [place], [place] [address] Referral ID Status Reason Start Date Expiration Date Visits Requ ested Visits Authorized [id number] Closed 07/01/2020 07/01/2021 1 1 Encounter Details Date Type Department Care Team Description 08/27/2020 Hospital Encounter Department of Hipolito, Eusebia Se condary Pulmonary Hypertension (HCC); Cardiovascular Lubna Ansari M.D. Shortness Of Breath Diseases in [place], [address] [place], [place] [address] [address] [place], [place] [phone] [address] (Work) [phone] Social History Tobacco Use Types Packs/Day Years [...] do you attend cheondoism or Never 2021 latter-day services? Do you [...] COLOR AND CONTRAST (08/27/2020 4:25 PM CDT) [facility] Method Time Signature Ejection Fraction 56 [...] effusion. For the complete report, see the [employer] Documents. Narrative 08/27/2020 4:20 PM CDT For the complete report, see the [employer] Documents. Final Impressions 1. Severely enlarged right [...] Agitated saline contrast administered . 9. No [id number]-[id number] shunt at atrial leve l at rest [...] Agitated saline contrast administered . 9. No fzsxp-ox-xnbo shunt at atrial leve l at rest [...] protocol documented in this encounter Care Teams Crosstie Inspector Relationship Specialty Start Date End Date Ro Norton APRN, C.N.P., PCP - General Family Medicine D.N.P. [address] [phone] documented as of this encounter
--- OUTSIDE RECORDS SUMMARY | 2022-01-30 19:58 | XMS_ITS | Encounter Summary ---
:1970 Author Organization [facility] Address [address] [place] [address] Care Team Providers Name Role Phone Ro Norton APRN C.N.Kirsty, Katelynn.N.P. Primary Care Provider Encounter Details Date Type Department Care Team Description 06/04/2020 Clinical Communication Department of [facility] Ro Norton, Medicine, [place] MORGAN C.N.PRaffy, Clinic, in [place] [address] [phone] Social History Tobacco Use Types Packs/Day Years [...] do you attend mormon or Never 2021 alevism services? Do you [...] filedocumented in this encounter Care Teams Certified Maintenance Welder Relationship Specialty Start Date End Date Ro Norton APRN, C.N.P., PCP - General Family Medicine D.N.P. [address] [phone] documented as of this encounter
--- OUTSIDE RECORDS SUMMARY | 2022-01-30 19:58 | XMS_ITS | Encounter Summary ---
:1970 Author Organization [facility] Address [address] [place] [address] Care Team Providers Name Role Phone Ro Norton APRN, C.N.P., D.N.P. Primary Care Provider Encounter Details Date Type Department Care Team Description 06/23/2020 Orders Only [facility] PCP [facility] MNT Ro Norton APRN, C.N.P., D.N.P. [address] [place] [phone] (Wo rk) Social History Tobacco Use [...] do you attend orthodoxy or Never 2021 protestant services? Do you [...] on filedocumented in this encounter Care Teams Men'S Garment Fitter Relationship Specialty Start Date End Date Ro Norton APRN, C.N.P., PCP - General Family Medicine D.N.P. [address] [phone] documented as of this encounter
--- OUTSIDE RECORDS SUMMARY | 2022-01-30 19:58 | XMS_ITS | Encounter Summary ---
:1970 Author Organization [facility] Address [address] [place] [address] Care Team Providers Name Role Phone Ro Norton APRN, C.N.Kirsty, D.N.P. Primary Care Provider Reason for Referral Outpatient (Routine) - Closed Specialty Diagnoses / Procedures Referred By Contact Refer red To Contact Diagnoses Other Secondary Pulmonary Hypertension (HCC) Shortness Of Breath Lubna Mcmillan M.D. [facility] Procedures NM Lung Ventilation and Perfusion [address] [place] [address] Referral ID Status Reason Start Date Expiration Date Visits Requ ested Visits Authorized [id number] Closed 07/01/2020 07/01/2021 6 6 Reason for Visit Outpatient (Routine) - Closed Specialty Diagnoses / Procedures Referred By Contact Refer red To Contact Diagnoses Other Secondary Pulmonary Hypertension (HCC) Shortness Of Breath Lubna Mcmillan M.D. [facility] Procedures NM Lung Ventilation and Perfusion [address] [place] [address] Referral ID Status Reason Start Date Expiration Date Visits Requ ested Visits Authorized [id number] Closed 07/01/2020 07/01/2021 6 6 Encounter Details Date Type Department Care Team Description 08/19/2020 Hospital Encounter Department of Lubna Mcmillan Other Secondary Pulmonary Hypertension (HCC); Radiology, Giovanni M, M.D. Shortness Of Breath Building, in 200 [facility] [address] 200 [facility] [phone] [place], [place] (Work) [address] [phone] Social History Tobacco Use Types Packs/Day Years [...] do you attend episcopalian or Never 2021 jain services? Do you [...] to atelectasis and/[facility]. No mismatch [...] CT in October 2019. Lubna Mcmillan M.D. [facility] [place] PROCEDURES documented in this encounter Visit [...] dose documented in this encounter Care Teams Mechanical Spreader Operator Relationship Specialty Start Date End Date Ro Norton APRN, C.N.P., PCP - General Family Medicine D.N.P. [address] [phone] documented as of this encounter
--- OUTSIDE RECORDS SUMMARY | 2022-01-30 19:58 | XMS_ITS | Encounter Summary ---
:1970 Author Organization [facility] Address [address] [place] [address] Care Team Providers Name Role Phone Ro Norton APRN, C.N.P., D.N.P. Primary Care Provider Encounter Details Date Type Department Care Team Description 05/29/2020 Hospital Encounter Department of Ro Norton c Obstructive Pulmonary Disease Without Exacerbation (HCC); Radiology in [place] Ansari APRN, Other Se condary Pulmonary Hypertension (HCC); [place], [place] C.N.P., D.N.P. Shortness Of Breath; [address] [place] [phone] [place] [address] [place], [place], [address] [place] [address] Social History Tobacco Use Types Packs/Day Years [...] do you attend episcopalian or Never 2021 catholic services? Do you [...] [place] documented in this encounter Care Teams Coin Machine Mechanic Relationship Specialty Start Date End Date Ro Norton APRN, C.N.Taylor., PCP - General Family Medicine D.N.P. [address] [phone] documented as of this encounter
--- OUTSIDE RECORDS SUMMARY | 2022-01-30 19:58 | XMS_ITS | Encounter Summary ---
:1970 Author Organization [facility] Address [address] [place] [address] Care Team Providers Name Role Phone Ro Norton APRN C.N.P., D.N.P. Primary Care Provider Encounter Details Date Type Department Care Team Description 08/06/2020 Clinical Communication Division of Pulmonary [facility] in Elan Faust M.D. [address] [place] [address] [phone] Social History Tobacco Use Types Packs/Day Years [...] do you attend latter-day or Never 2021 mormonism services? Do you [...] filedocumented in this encounter Care Teams Airport Tower Controller Relationship Specialty Start Date End Date Ro Norton APRN, C.N.P., PCP - General Family Medicine D.N.P. [address] [phone] documented as of this encounter
--- OUTSIDE RECORDS SUMMARY | 2022-01-30 19:58 | XMS_ITS | Encounter Summary ---
:1970 Author Organization [facility] Address [address] [place] [address] Care Team Providers Name Role Phone Ro Norton APRN C.N.PRaffy, D.N.P. Primary Care Provider Encounter Details Date Type Department Care Team Description 08/19/2020 Hospital Encounter Department of Lubna Mcmillan Other Secondary Pulmonary Hypertension (HCC); Laboratory Medicine Michael Ansari Shortness Of Breath and Pathology, [address] [place] [address] in [facility] [address] [place] [phone] [place] [address] (Work) [place], [place] [phone] [address] (Fax) [phone] Social History Tobacco Use Types Packs/Day Years [...] do you attend taoism or Never 2021 nondenominational services? Do you [...] / Quant, Serum (08/19/2020 11:02 AM CDT) [facility] Method Time Signature HCV RNA [id number] (A) Undetected 08/20/2020 [facility] Detect/Quant, IU/mL 4:16 PM CDT S Comment: Result in log IU/mL is 6.76. ----ADDITIONAL INFORMATION---- The quantification range of this assay i s 15 to 100,000,000 IU/mL (1.18 log to 8.00 log IU/mL). Testing was performe d using the sandra HCV test ([employer] with the sandra 6800 System. Specimen Anatomical Collection Method Collection Time Receive d Time (Source) Location / / Volume Laterality Blood 08/19/2020 11:02 08/19/2020 AM CDT 11:10 PM CDT Lubna Mcmillan M.D. LAB MICROBIOLOGY - BLOOD ORD ERABLES Performing Organization Address City/State/ZIP Code Phon e Number [facility] [address] [place], [place] [address] SUPPORT CENTER [facility] [place] [address] Laboratory Medicine and Pathology [address] [place] HIV-1/-2 Ag and Ab Screen, Plasma (08/19/2020 11:02 AM CDT) athologist Signature HIV-1/-2 Ag Negative Negative 08/19/2020 [facility] and Ab Screen, 9:25 PM CDT [...] City/State/ZIP Code Phon e Number [facility] [address] [place], [place] [address] SUPPORT CENTER [facility] [place] [address] Laboratory Medicine and Pathology [address] [place] [address] Dr. [place]STRONG (ABNORMAL) HCV Ab w/Reflex to HCV PCR, Serum (08/19/2020 11:02 AM CDT) P athologist Signature HCV Ab, S Reactive (A) Negative 08/19/2020 [facility] 10:10 PM CDT Comment: Supplemental testing for HCV RNA is orde red to rule out active HCV infection. Njtvvy-xh-ueixfd ratio is >=8.00. Specimen Anatomical Collection Method Collection Time Receive d Time (Source) Location / / Volume Laterality Blood (Blood, 08/19/2020 11:02 08/19/2020 5:50 Venous) AM CDT PM CDT Lubna Mcmillan M.D. LAB MICROBIOLOGY - BLOOD ORD ERADARVIN Performing Organization Address City/[facility]/ZIP Code Phon e Number [address] [place] [address] SUPPORT [facility] [place] [address] Laboratory Medicine and Pathology [address] [place] [address] Dr. ARMSTRONG (ABNORMAL) HBc Total Ab, Serum (08/19/2020 11:02 AM CDT) Patholo gist Method Time Signature HBc Total Ab, Positive (A) Negative 08/19/2020 [facility] S 9:53 PM CDT Comment: If [...] - BLOOD ORD KRISTY Performing Organization Address City/State/ZIP Code Phon e Number [place] [phone] NATHANIEL Faust [address] [place] [address] Laboratory Medicine and Pathology [address] [place] [address] Dr. [place]STRONG HBs Antibody, Serum (08/19/2020 11:02 AM CDT) [facility] HBs Antibody, Negative 08/19/2020 [facility] S 9:47 PM CDT Comment: Patient is presumed to be not immune to infection with HBV. ----REFERENCE VALUE---- Unvaccinated: Negative Vaccinated: Positive HBs Antibody, Quantitative, S <5.0 mIU/mL 08/19/2020 9:47 PM CDT [facility] Comment: ----REFERENCE VALUE---- Unvaccinated: <5.0 Vaccinated: >=12.0 Specimen Anatomical Collection Method Collection Time Receive d Time (Source) Location / / Volume Laterality Blood (Blood, 08/19/2020 11:02 08/19/2020 5:50 Venous) AM CDT PM CDT Lubna Mcmillan M.D. LAB MICROBIOLOGY - BLOOD ORD ERABLES Performing Organization Address City/State/ZIP Code Phon e Number [facility] [address] NATHANIEL Faust[address] [place] [address] Laboratory Medicine and Pathology [address] [place] [address] Dr. [place] Hepatitis B Surface Antigen (08/19/2020 11:02 AM CDT) [facility] HBs Antigen, S Negative Negative 08/19/2020 [facility] 9:37 PM CDT Specimen Anatomical Collection Method Collection Time Receive d Time (Source) Location / / Volume Laterality Blood (Blood, 08/19/2020 11:02 08/19/2020 5:50 Venous) AM CDT PM CDT Lubna Mcmillan M.D. LAB MICROBIOLOGY - BLOOD ORD ERADARVIN Performing Organization Address City/State/ZIP Code Phon e Number [facility] [address] NATHANIEL Faust [address] [place] [address] Laboratory Medicine and Pathology [address] [place] [address] Dr. [place]STR[place] (ABNORMAL) NT-Pro B-Type Natriuretic Peptide (BNP) (08/19/2020 11:02 AM CDT) P athologist Signature NT-Pro BNP 1688 (H) <=144 [...] Organization Address City/State/ZIP Code Phon e Number [facility] - [address] [place] [address] [facility] [place] [address] Laboratories-[facility] 200 [facility] Connective Tissue Diseases [place] (08/19/2020 11:02 AM CDT) athologist [facility] Antinuclear Ab, 0.2 <=1.0 08/20/2020 [facility] S (Negative) 12:33 PM CDT U Comment: ----ADDITIONAL INFORMATION---- Method: Enzyme-linked immunoassay using HEp-2 nuclear extract supplemented with purified antig ens. Cyclic Citrullinated <15.6 <20.0 (Negative) U 08/20/2020 10:49 AM [facility] Peptide Ab, S CDT Interpretation SEE COMMENT 08/20/2020 12:33 PM SDS C CDT Comment: Tests for antibodies to dsDNA and JULIANE an tigens are not performed automatically unless the KETURAH r esult is > or = 3.0 U. ??Studies performed at [facility] indicate that positive KETURAH results <3.0 U are rarely a ccompanied by positive second order tests. Specimen Anatomical Collection Method Collection Time Receive d Time (Source) Location / / Volume Laterality Blood (Blood, 08/19/2020 11:02 08/20/2020 7:35 Venous) AM CDT AM CDT Lubna Mcmillan M.D. LAB BLOOD ADD-ON Performing Organization Address City/State/ZIP Code Phon e Number [facility] [address] [place], [place] [address] SUPPORT CENTER [facility] [place] [address] Laboratory Medicine and Pathology [address] [...] 08/19/2020 [place]/ mL/min/BSA 3:30 PM CDT Thai Comment: ----ADDITIONAL INFORMATION---- Estimated GFR calculated using [...] M.D. LAB BLOOD ADD-ON Performing Organization Address City/State/[facility] Code Phon e Number [facility] - [address] [place] [address] [facility] [place] [place] [address] [facility] 200 [facility] (ABNORMAL) CBC with Differential, Blood (08/19/2020 11:02 AM CDT) [facility] gist Method Time Signature [...] Organization Address City/State/ZIP Code Phon e Number [facility] - [address] [place], [place] [address] [facility] [place] [address] [facility] [address] documented in this encounter Visit Diagnoses Diagnosis Other Secondary Pulmonary Hypertension ( HCC) Shortness Of Breath documented in this encounter Care Teams Hand Reamer Relationship Specialty Start Date End Date Ro Norton APRN, C.N.P., PCP - General Family Medicine D.N.P. [address] [phone] documented as of this encounter
--- OUTSIDE RECORDS SUMMARY | 2022-01-30 19:58 | XMS_ITS | Encounter Summary ---
:1970 Author Organization [facility] Address [address] [place] [address] Care Team Providers Name Role Phone Ro Norton APRN C.N.P., D.N.P. Primary Care Provider Encounter Details Date Type Department Care Team Description 07/16/2020 Clinical Communication Division of Pulmonary [facility] in [place] Faust M.D. [address] [place] [address] [phone] Social History Tobacco Use Types Packs/Day Years [...] her COVID swab as scheduled 07/15 in [place]. I left a message for her to call to reschedule. She will need to come to [place] for a rapid COVID swab today 07/16 [...] documented as of this encounter Care Teams Plateman Relationship Specialty Start Date End Date Ro Norton APRN, C.N.P., PCP - General Family Medicine D.N.P. [address] [phone] documented as of this encounter
--- OUTSIDE RECORDS SUMMARY | 2022-01-30 19:58 | XMS_ITS | Encounter Summary ---
:1970 Author Organization [facility] Address [address] [place] [address] Care Team Providers Name Role Phone Ro Norton APRN C.N.PRaffy, D.N.P. Primary Care Provider Reason for Visit Reason Comments Med Refill Encounter Details Date Type Department Care Team Description 06/22/2020 Refill Department of Family Medicine, Ro Norton APRN, Med Refill [facility], in [place] C .N.PRaffy, D.N.P. [address] [phone] (Wo rk) Social History Tobacco Use Types [...] do you attend religious or Never 2021 shinto services? Do you [...] on filedocumented in this encounter Care Teams Sail Cutter Relationship Specialty Start Date End Date Ro Norton APRN, C.N.P., PCP - General Family Medicine D.N.P. [address] [phone] documented as of this encounter
--- OUTSIDE RECORDS SUMMARY | 2022-01-30 19:58 | XMS_ITS | Encounter Summary ---
:1970 Author Organization [facility] Address [address] [place] [address] Care Team Providers Name Role Phone Ro Norton APRN C.N.P., D.N.P. Primary Care Provider Reason for Visit Reason Comments Shortness of Breath Encounter Details Date Type Department Care Team Description 06/19/2020 Emergency [place] [facility] Adrian Rea, Chronic Obstructive Department P.A.-C. Pulmonary Disease (HCC) [address] [place] [address] [place] [address] (Primary Dx) [place] [phone] (Wo rk) Social History Tobacco Use [...] you attend latter day or Never 2021 mormonism services? Do you [...] Care Everywhere. Chronic Obstructive Pulmonary Disease Exacerbation (Estonian)documented in this encounter Medications at Time of [...] Chronic Obstructive Pulmonary Disease (HCC) Adrian Rea, PRaffyA.-C. 06/19/20 1050 Annie Pugh R.N. - 06/19/2020 [...] Rapid, V Symptomatic (06/19/2020 10:17 AM CDT) [facility] Method Time Signature SARS CoV-2, Undetected Undetected 06/19/2020 [facility] PCR, Rapid, V 10:46 AM CDT Comment: ----ADDITIONAL INFORMATION---- This RT-PCR test was performed using the Trey SARS-CoV-2 and Influenza A/B Reagent assay from [employer], which has received Emergency Use Authori zation(EUA) by the U.S. Food and Drug Administration . Fact sheets for this Emergency Use Autho rization (EUA) assay can be found at the following link s: For Healthcare Providers: https://www.fda.gov/media/768729/downloa d For Patients: https://www.fda.gov/media/016584/downloa d SARS Coronavirus 2, Source, Swab, Nasopharynx 05/23 10:21 AM CDT [facility] Rapid Specimen Anatomical Collection Method Collection Time Receive d Time (Source) Location / / Volume Laterality Varies 06/19/2020 10:17 06/19/2020 (Nasopharynx) AM CDT 10:21 AM CDT Adrian Rea P.A.-C. LAB MICROBIOLOGY - GENERAL O RDERABLES Performing Organization Address City/State/ZIP Code Phon e Number [facility]- [address] [place] [address] [place] [address] [place] [address] System in [place] [address] Chest AP or PA and [...] documented as of this encounter Care Teams Satellite Manager Relationship Specialty Start Date End Date Ro Norton APRN, C.N.P., PCP - General Family Medicine D.N.P. [address] [phone] documented as of this encounter
--- OUTSIDE RECORDS SUMMARY | 2022-01-30 19:58 | XMS_ITS | Encounter Summary ---
:1970 Author Organization [facility] Address [address] [place] [address] Care Team Providers Name Role Phone Ro Norton APRN C.N.PRaffy, D.N.P. Primary Care Provider Reason for Visit Reason Comments Patient Education Outpatient (Routine) - Closed Specialty Diagnoses / Procedures Referred By Contact Refer red To Contact Cardiovascular Disease Lubna Mcmillan [place] [address] [place] M.D. [address] [place] [phone] Referral ID Status Reason Start Date Expiration Date Visits Requ ested Visits Authorized [id number] Closed 07/01/2020 07/01/2021 1 1 Encounter Details Date Type Department Care Team Description 08/21/2020 Virtual Visit Department of Lubna Mcmillan M.D. [address] [place] [phone] Shortness Of Breath Cardiovascular Medicine Mikayla Castañeda, RShikha in [facility] paleobotanist [address] [place] [phone] Social History Tobacco Use Types Packs/Day Years [...] do you attend orthodox or Never 2021 taoism services? Do you belong to any clubs or No 02/25/2021 organizations such as orthodox groups, unions, fraLedgerPal Inc[employer] or athletic groups, or school groups? How [...] pm. 5. Stay within 100 miles of [place] overnight 6. Take all medications as instructed 7. Call the [facility] Service Line ([phone]) the evening before the procedure between the [...] Cardiac Catheterization or Heart Rhythm Procedure?? , [id number]. See After Visit Summary for specific instructions [...] Breath documented in this encounter Care Teams Product Safety Test Engineer Relationship Specialty Start Date End Date Ro Norton APRN, C.N.P., PCP - General Family Medicine D.N.P. [address] [phone] documented as of this encounter
--- OUTSIDE RECORDS SUMMARY | 2022-01-30 19:58 | XMS_ITS | Encounter Summary ---
:1970 Author Organization [facility] Address [address] [place] [address] Care Team Providers Name Role Phone Ro Norton APRN, C.N.P., D.N.P. Primary Care Provider Reason for Visit Reason Comments Social Work - General consult RST Order for [facility] Encounter Details Date Type Department Care Team Description 07/13/2020 Clinical Communication Department of Ro Norton Work - Family Medicine, MORGAN Ansari, General con sult RST [place] C.N.P., D.N.P. (Order for [facility], in [address] [address] [place], [place] [phone] [address] (Work) [phone] Social History Tobacco Use Types Packs/Day Years [...] do you attend pentecostalism or Never 2021 yazidi services? Do you [...] please have the patient contact us at [phone] and we will reinstate the order at that time. Sincerely, [facility] Online Services for Referring Providers Appointment Office documented in this encounter Plan of Treatment Not on filedocumented as of this encounter Visit Diagnoses Not on filedocumented in this encounter Additional Health Concerns Infection Onset Date Last Indicated Resolved Time COVID19 Pending 07/14/2020 07/14/2020 08/03/2020 4:45 AM CDT documented as of this encounter Care Teams Mastercam Programmer Relationship Specialty Start Date End Date Ro Norton APRN C.N.P., PCP - General Family Medicine D.N.P. [address] [phone] documented as of this encounter
--- OUTSIDE RECORDS SUMMARY | 2022-01-30 19:59 | XMS_ITS | Encounter Summary ---
:1970 Author Organization [facility] Address [address] [place] [address] Care Team Providers Name Role Phone Ro Norton APRN, C.N.P., D.N.P. Primary Care Provider Encounter Details Date Type Department Care Team Description 03/05/2020 E-Visit [facility] at [place], Laquita ramírez, MORGAN, RE: [place] [facility] on the 4th C.N .P. Floor [address] [facility] [address] [place] [phone] (Wo rk) Social History Tobacco Use Types [...] do you attend sikhism or Never 2021 gnosticist services? Do you [...] Primary documented in this encounter Care Teams Relief Charge Nurse Relationship Specialty Start Date End Date Ro Norton APRN, C.N.P., PCP - General Family Medicine D.N.P. [address] [phone] documented as of this encounter
--- OUTSIDE RECORDS SUMMARY | 2022-01-30 19:59 | XMS_ITS | Encounter Summary ---
:1970 Author Organization [facility] Address [address] [place] [address] Care Team Providers Name Role Phone Ro Norton APRN, C.N.P., D.N.P. Primary Care Provider Encounter Details Date Type Department Care Team Description 11/13/2019 Hospital Encounter Department of Yvon Dill Rib Multiple Radiology, Jose Liao APRN, Closed [facility], in C.N.P., M.S.N. [place], [place] [address] [facility] [address] [place] [phone] Social History Tobacco Use Types Packs/Day Years [...] APRNNLisandro., M.S.N. IMG DIAGNOSTIC IMAG ING PROCEDURES documented in this encounter Visit Diagnoses Diagnosis Fracture Rib Multiple Closed Initial Rig ht documented in this encounter Care Teams Analytics Associate Relationship Specialty Start Date End Date Ro Norton APRN, C.N.P., PCP - General Family Medicine D.N.P. [address] [phone] documented as of this encounter
--- OUTSIDE RECORDS SUMMARY | 2022-01-30 19:59 | XMS_ITS | Encounter Summary ---
:1970 Author Organization [facility] Address [address] [place] [address] Care Team Providers Name Role Phone Ro Norton APRN C.N.Kirsty, D.N.P. Primary Care Provider Encounter Details Date Type Department Care Team Description 11/15/2019 Orders Only Department of Orthopedic Serafin Lang M.D. Surgery in [place], [address] [place] [address] [place] [phone] [place] [address] [phone] Social History Tobacco Use Types Packs/Day Years [...] do you attend hindu or Never 2021 lutheran services? Do you [...] on filedocumented in this encounter Care Teams Aerospace Project Engineer Relationship Specialty Start Date End Date Ro Norton APRN, C.N.P., PCP - General Family Medicine D.N.P. [address] [phone] documented as of this encounter
--- OUTSIDE RECORDS SUMMARY | 2022-01-30 19:59 | XMS_ITS | Encounter Summary ---
:1970 Author Organization [facility] Address [address] [place] [address] Care Team Providers Name Role Phone Ro Norton APRN C.N.PRaffy, D.N.P. Primary Care Provider Reason for Referral Outpatient (Routine) - Closed Specialty Diagnoses / Procedures Referred By Contact Refer red To Contact Orthopedic Surgery Kelli Mojica [place] [address] [place] M.D., M.E. [address] [place] [phone] Referral ID Status Reason Start Date Expiration Date Visits Requ ested Visits Authorized [id number] Closed 12/13/2019 12/12/2020 1 1 Reason for Visit Reason Comments Follow-up Outpatient (Routine) - Closed Specialty Diagnoses / Procedures Referred By Contact Refer red To Contact Orthopedic Surgery Angelita Buchanan APRN, [place] [facility] [place] C.N.P., M.S.N. [address] [place] [phone] Referral ID Status Reason Start Date Expiration Date Visits Requ ested Visits Authorized [id number] Closed 10/24/2019 10/23/2020 1 1 Encounter Details Date Type Department Care Team Description 12/13/2019 [facility] Wander Brush T ibial Orthopedic Surgery in [place], [place] 200 [facility] Subsequent Left [address] [place], [place] (Primary Dx) [place] [phone] Social History Tobacco Use Types Packs/Day Years [...] do you attend restoration or Never 2021 yarsanism services? Do you [...] Left Standing 1-2 Views (01/21/2020 9:29 AM SILK SCREEN PAINTER) Anatomical Region Laterality Modality Lower Extremity, Knee, Musculoskeletal RST LOS, Left Digital Radiography Musculoskeletal ARZ LOS, Muskuloskeletal FLA LOS Specimen (Source) Anatomical Collection Method Collection Time Re ceived Time Location / / Volume Laterality 01/21/2020 9:32 AM SILK SCREEN PAINTER Impressions 01/21/2020 9:37 AM SILK SCREEN PAINTER Interposition cement and medial plate and screw fixation across a healing comminuted intra-articular left tibial plateau fracture. No change in alignment. Narrative 01/21/2020 9:37 AM SILK SCREEN PAINTER EXAM: ??DX KNEE LEFT STANDING 1-2 VIEWS [...] Left documented in this encounter Care Teams Emergency Vehicle Dispatcher Relationship Specialty Start Date End Date Ro Norton APRN, C.N.P., PCP - General Family Medicine D.N.P. [address] [phone] documented as of this encounter
--- OUTSIDE RECORDS SUMMARY | 2022-01-30 19:59 | XMS_ITS | Encounter Summary ---
:1970 Author Organization [facility] Address [address] [place] [address] Care Team Providers Name Role Phone Ro Norton APRN C.NDean, D.N.P. Primary Care Provider Reason for Visit Reason Comments Follow-up Outpatient (Routine) - Closed Specialty Diagnoses / Procedures Referred By Contact Refer red To Contact Orthopedic Surgery Kelli Mojica [address] [place] M.D., M.ERaffy [address] [place] [address] Referral ID Status Reason Start Date Expiration Date Visits Requ ested Visits Authorized [id number] Closed 12/13/2019 12/12/2020 1 1 Encounter Details Date Type Department Care Team Description 01/21/2020 [facility] Raudel Betancourt Fracture T ibial Orthopedic Surgery in .DRaffy [facility] Closed [place], [place] 200 [facility] Subsequent Left [address] [place], [place] (Primary Dx) [place] [phone] Social History Tobacco Use Types Packs/Day Years [...] do you attend episcopal or Never 2021 moravian services? Do you belong to any clubs or No 02/25/2021 organizations such as episcopal groups, unions, fraGigzolo or athletic groups, or school groups? How [...] #1 Fracture Tibial Plateau Closed Subsequent Left FIELD SERVICE ENGINEER documented in this encounter Plan of Treatment Not on filedocumented as of this encounter Visit Diagnoses Diagnosis Fracture Tibial Plateau Closed Subsequen t Left - Primary documented in this encounter Care Teams Gizzard Puller Relationship Specialty Start Date End Date Ro Norton APRN, C.N.P., PCP - General Family Medicine D.N.P. [address] [phone] documented as of this encounter
--- OUTSIDE RECORDS SUMMARY | 2022-01-30 19:59 | XMS_ITS | Encounter Summary ---
:1970 Author Organization [facility] Address [address] [place] [address] Care Team Providers Name Role Phone Ro Norton APRN C.N.PRaffy, D.N.P. Primary Care Provider Reason for Visit Reason Comments Follow-up Outpatient (Routine) - Closed Specialty Diagnoses / Procedures Referred By Contact Refer red To Contact Orthopedic Surgery Angelita Buchanan APRN, [facility] Selina C.N.PRaffy, M.S.N. [address] [place] [phone] Referral ID Status Reason Start Date Expiration Date Visits Requ ested Visits Authorized [id number] Closed 02/24/2020 02/23/2021 1 1 Encounter Details Date Type Department Care Team Description 02/26/2020 [facility] [address] [place] [phone] Fracture Tibial Orthopedic Surgery in Angelita Buchanan APRN C.N.PRaffy, M.S.N. [address] [place] [phone] Plateau Closed [place], [place] Subsequent Left [address] [facility] (Primary Dx) [place] [address] Social History Tobacco Use Types [...] do you attend anabaptist or Never 2021 adventism services? Do you [...] #1 Fracture Tibial Plateau Closed Subsequent Left STANT INFANT TEACHER Felicity Hansen R.N. - 02/26/2020 8:30 AM CST Nursing Note Patient fitted for a Knee Immobilzer. 20 inch [place] Knee Immobilizer applied to left leg. Instructed to wear over clothing. Printed materials supplied by the product company sent with patient. Patient instructed on proper use of device. Patient taught. Learning assessment no barriers present, patient ready to learn. Patient verbalizedunderstanding and able to teach back. STANT INFANT TEACHER documented in this encounter Plan of Treatment Not on filedocumented as of this encounter Visit Diagnoses Diagnosis Fracture Tibial Plateau Closed Subsequen t Left - Primary documented in this encounter Care Teams Stripper Soft Plastic Relationship Specialty Start Date End Date Ro Norton APRN, C.N.P., PCP - General Family Medicine D.N.P. [address] [phone] documented as of this encounter
--- OUTSIDE RECORDS SUMMARY | 2022-01-30 19:59 | XMS_ITS | Encounter Summary ---
:1970 Author Organization [facility] Address 200 [place] [address] Care Team Providers Name Role Phone Ro Norton APRN, C.NDean, D.N.P. Primary Care Provider Reason for Referral Outpatient (Routine) - Closed Specialty Diagnoses / Procedures Referred By Contact Refer red To Contact Orthopedic Surgery Angelita Buchanan APRN, [facility] [place].N.Kirsty, M.S.N. 200 [place] [address] Referral ID Status Reason Start Date Expiration Date Visits Requ ested Visits Authorized [id number] Closed 02/24/2020 02/23/2021 1 1 Scheduling Instructions Sems - est - 745 x-rays, 830 am eval [employer] Encounter Details Date Type Department Care Team Description 02/24/2020 Orders Only Department of Angelita Buchanan, Fracture T ibial Orthopedic Surgery in [place] MORA.NDean, Plate au Closed [place], [place] M.S.N. Subsequent Left 1216 [facility] 200 [facility] (Primary Dx) [place] [phone] Social History Tobacco Use Types Packs/Day Years [...] do you attend anabaptism or Never 2021 scientology services? 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 The fracture lines are partially visible. Stable alignment. No radiographic evidence of hardware loosen ing, migration or fracture. Narrative 02/26/2020 8:37 AM SUPERVISOR [employer]ANERS EXAM: ??DX KNEE LEFT 2 VIEWS Procedure [...] Left documented in this encounter Care Teams Cook Fast Food Relationship Specialty Start Date End Date Ro Norton APRN, C.N.P., PCP - General Family Medicine D.N.P. [address] [phone] documented as of this encounter
--- OUTSIDE RECORDS SUMMARY | 2022-01-30 19:59 | XMS_ITS | Encounter Summary ---
:1970 Author Organization [facility] Address [address] [place] [address] Care Team Providers Name Role Phone Ro Norton APRN, C.N.P., D.N.P. Primary Care Provider Reason for Visit Reason Comments COVID Inquiry Encounter Details Date Type Department Care Team Description 12/12/2019 Clinical Communication Hospital Outpatient Rebecca Upton, COVID Inquiry Procedure Center in [place], [place] [phone] [address] [facility] (Work) [place] [address] Social History Tobacco Use Types [...] do you attend religion or Never 2021 taoism services? Do you [...] on filedocumented in this encounter Care Teams Roll Edge Stitcher Hand Relationship Specialty Start Date End Date Ro Norton APRN, C.N.P., PCP - General Family Medicine D.N.P. [address] [phone] documented as of this encounter
--- OUTSIDE RECORDS SUMMARY | 2022-01-30 19:59 | XMS_ITS | Encounter Summary ---
:1970 Author Organization [facility] Address [address] [place] [address] Care Team Providers Name Role Phone Ro Norton APRN, C.NDean, D.N.P. Primary Care Provider Reason for Referral Outpatient (Routine) - Closed Specialty Diagnoses / Procedures Referred By Contact Refer red To Contact Diagnoses Fracture Tibial Plateau Closed Subsequent Left Angelita Buchanan APRN, Procedures Suture Removal C.N.P., M.S.N. [address] [place] [phone] Referral ID Status Reason Start Date Expiration Date Visits Requ ested Visits Authorized [id number] Closed 11/13/2019 11/12/2020 1 1 Reason for Visit Reason Comments Follow-up Outpatient (Routine) - Closed Specialty Diagnoses / Procedures Referred By Contact Refer red To Contact Orthopedic Surgery Angelita Buchanan APRN, [facility] C.N.P., M.S.N. [address] [place] [phone] Referral ID Status Reason Start Date Expiration Date Visits Requ ested Visits Authorized [id number] Closed 10/24/2019 10/23/2020 1 1 Encounter Details Date Type Department Care Team Description 11/13/2019 Office Visit Department of [facility], Raudel Betancourt M.D. [address] [place] [phone] Fracture Tibial Orthopedic Surgery in Angelita Buchanan MORGAN Conde C.N.P., M.S.N. [address] [place] [address] Plateau Closed [place], [place] Subsequent Left [address] [facility] (Primary Dx) [place] [phone] Social History Tobacco Use Types Packs/Day Years [...] do you attend confucianist or Never 2021 orthodoxy services? Do you [...] Primary documented in this encounter Care Teams Staff Occupational Therapist Relationship Specialty Start Date End Date Ro Norton APRN, C.N.P., PCP - General Family Medicine D.N.P. [address] [phone] documented as of this encounter
--- OUTSIDE RECORDS SUMMARY | 2022-01-30 19:59 | XMS_ITS | Encounter Summary ---
:1970 Author Organization [facility] Address [address] [place] [address] Care Team Providers Name Role Phone Ro Norton APRN C.N.PRaffy, D.N.P. Primary Care Provider Encounter Details Date Type Department Care Team Description 12/23/2019 Orders Only Department of Angelita Buchanan, Pain Calf Left Orthopedic Surgery in [place] C.N.PRaffy, (Prim jonny Dx) [place], [place] M.S.N. [address] [facility] [address] [place] [phone] [phone] Social History Tobacco Use Types Packs/Day Years [...] do you attend episcopal or Never 2021 mormonism services? Do you [...] Primary documented in this encounter Care Teams Roading Engineer Relationship Specialty Start Date End Date Ro Norton APRN, C.N.P., PCP - General Family Medicine D.N.P. [address] [phone] documented as of this encounter
--- OUTSIDE RECORDS SUMMARY | 2022-01-30 19:59 | XMS_ITS | Encounter Summary ---
:1970 Author Organization [facility] Address [address] [place] [address] Care Team Providers Name Role Phone Ro Norton APRN, C.N.P., D.N.P. Primary Care Provider Encounter Details Date Type Department Care Team Description 05/07/2020 Orders Only [facility] PCP [facility] Sa rosalinda Erickson M.D. [address] [place], [place] [phone] (Wo rk) Social History [...] do you attend sikh or Never 2021 confucianism services? Do you [...] on filedocumented in this encounter Care Teams Gallery Manager Relationship Specialty Start Date End Date Ro Norton APRN, C.N.P., PCP - General Family Medicine D.N.P. [address] [phone] documented as of this encounter
--- OUTSIDE RECORDS SUMMARY | 2022-01-30 19:59 | XMS_ITS | Encounter Summary ---
:1970 Author Organization [facility] Address [address] [place] [address] Care Team Providers Name Role Phone Ro Norton APRN, C.N.P., D.N.P. Primary Care Provider Reason for Visit Reason Comments COVID Inquiry Encounter Details Date Type Department Care Team Description 11/12/2019 Clinical Communication Hospital Outpatient Rebecca Upton, COVID Inquiry Procedure Center in [place], [place] [phone] [address] [facility] (Work) [place] [address] Social History Tobacco Use Types [...] do you attend lutheran or Never 2021 jewish services? Do you [...] on filedocumented in this encounter Care Teams Tree Feller Operator Relationship Specialty Start Date End Date Ro Norton APRN, C.N.P., PCP - General Family Medicine D.N.P. [address] [phone] documented as of this encounter
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
--- OUTSIDE RECORDS SUMMARY | 2022-01-30 19:59 | XMS_ITS | Encounter Summary ---
:1970 Author Organization [facility] Address [address] [place] [address] Care Team Providers Name Role Phone Ro Norton APRN C.N.PRaffy, D.N.P. Primary Care Provider Encounter Details Date Type Department Care Team Description 02/26/2020 Hospital Encounter Department of Angelita Buchanan Radiology, [facility] C.N.P., M.S.N. Subsequent [place], [place] [address] [facility] [address] [place] [phone] Social History Tobacco Use Types Packs/Day Years [...] do you attend hindu or Never 2021 jainism services? Do you [...] s for this VIEWS (most inpatients AM 3RD PRESSMAN Plateau Closed procedure are in and all Subsequent Left the results outpatients) section. documented in this encounter Results DX Knee Left 2 Views (02/26/2020 7:55 AM 3RD PRESSMAN) Anatomical Region Laterality Modality Lower Extremity, Knee, Musculoskeletal RST LOS, Left Digital Radiography Musculoskeletal ARZ LOS, Muskuloskeletal FLA LOS Specimen (Source) Anatomical Collection Method Collection Time Re ceived Time Location / / Volume Laterality 02/26/2020 8:08 AM 3RD PRESSMAN Impressions 02/26/2020 8:37 AM 3RD PRESSMAN Medial plate and screw fixation and interposition cement across a comminuted intra-articular left tibial p lateau fracture, with interval healing since 01/21/2020. The fracture lines are partially visible. Stable alignment. No radiographic evidence of hardware loosen ing, migration or fracture. Narrative 02/26/2020 8:37 AM 3RD PRESSMAN EXAM: ??DX KNEE LEFT 2 VIEWS Procedure [...] Left documented in this encounter Care Teams Physician Underwriter Relationship Specialty Start Date End Date Ro Norton APRN C.N.P., PCP - General Family Medicine D.N.P. [address] [phone] documented as of this encounter
--- OUTSIDE RECORDS SUMMARY | 2022-01-30 19:59 | XMS_ITS | Encounter Summary ---
:1970 Author Organization [facility] Address [address] [place] [address] Care Team Providers Name Role Phone Ro Norton APRN, C.N.P., D.N.P. Primary Care Provider Reason for Visit Reason Comments COVID Inquiry Encounter Details Date Type Department Care Team Description 10/29/2019 Clinical Communication Hospital Outpatient Christopher Amin COVID Inquiry Procedure Center in L, R.N. [place], [place] [phone] [address] [facility] (Work) [place] [address] Social History Tobacco Use Types [...] do you attend rastafarian or Never 2021 church services? Do you [...] or slept in a penitentiary (including now)? Sex Assigned at Date Recorded Female 10/14/2020 12:54 PM CDT documented as of this encounter Plan of Treatment Not on filedocumented as of this encounter Visit Diagnoses Not on filedocumented in this encounter Care Teams Bonded Structures Repairer Relationship Specialty Start Date End Date Ro Norton APRN, C.N.P., PCP - General Family Medicine D.N.P. [address] [phone] documented as of this encounter
--- OUTSIDE RECORDS SUMMARY | 2022-01-30 19:59 | XMS_ITS | Encounter Summary ---
:[address] [facility] Address [address] [place] [address] Care Team Providers Name Role Phone Ro Norton APRN C.N.P., D.N.P. Primary Care Provider Encounter Details Date Type Department Care Team Description 01/21/2020 Hospital Encounter Department of [place], Fracture Tibial Radiology, Jose Vazquez M.D., [facility], in M.E. Subsequent Left [place], [address] [place], [place] [address] [facility] [address] [place], [place] [phone] (Work) [phone] Social History Tobacco Use Types Packs/Day Years [...] do you attend mandaen or Never 2021 rastafari services? Do you [...] for this STANDING 1-2 (most inpatients AM STUNT WOMAN Plateau Closed procedure are in VIEWS and all Subsequent Left the results outpatients) section. documented in this encounter Results DX Knee Left Standing 1-2 Views (01/21/2020 9:29 AM STUNT WOMAN) Anatomical Region Laterality Modality Lower Extremity, Knee, Musculoskeletal RST LOS, Left Digital Radiography Musculoskeletal ARZ LOS, Muskuloskeletal FLA LOS Specimen (Source) Anatomical Collection Method Collection Time Re ceived Time Location / / Volume Laterality 01/21/2020 9:32 AM STUNT WOMAN Impressions 01/21/2020 9:37 AM STUNT WOMAN Interposition cement and medial plate and screw fixation across a healing comminuted intra-articular left tibial plateau fracture. No change in alignment. Narrative 01/21/2020 9:37 AM STUNT WOMAN EXAM: ??DX KNEE LEFT STANDING 1-2 VIEWS [...] Left documented in this encounter Care Teams Radius Corner Machine Operator Relationship Specialty Start Date End Date Ro Norton APRN, C.N.P., PCP - General Family Medicine D.N.P. [address] [phone] documented as of this encounter
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
--- OUTSIDE RECORDS SUMMARY | 2022-01-30 19:59 | XMS_ITS | Encounter Summary ---
:1970 Author Organization [facility] Address [address] [place] [address] Care Team Providers Name Role Phone Ro Norton APRN C.N.PRaffy, D.N.P. Primary Care Provider Encounter Details Date Type Department Care Team Description 12/13/2019 Hospital Encounter Department of Dewayne, Angelita saldana [facility] Radiology, [facility] C.N.P., M.S.N. [place], [place] [address] [facility] [address] [place] [phone] Social History Tobacco Use Types Packs/Day Years [...] do you attend taoism or Never 2021 bahai services? Do you [...] eft documented in this encounter Care Teams Substation Engineer Relationship Specialty Start Date End Date Ro Norton APRN C.N.P., PCP - General Family Medicine D.N.P. [address] [phone] documented as of this encounter
--- OUTSIDE RECORDS SUMMARY | 2022-01-30 19:59 | XMS_ITS | Encounter Summary ---
:1970 Author Organization [facility] Address [address] [place] [address] Care Team Providers Name Role Phone Ro Norton APRN C.N.PRaffy, D.N.P. Primary Care Provider Reason for Visit Reason Comments Med Refill oxycodone Encounter Details Date Type Department Care Team Description 11/15/2019 Clinical Communication Department of Raudel Lewis Med Refill Orthopedic Surgery Michael Betancourt (oxycodone) in [place], [address] [place] [address] [place] [phone] [place], [place] [phone] (Work) [phone] Social History Tobacco Use Types Packs/Day Years [...] would like a refill sent to the [facility] in [place]. She statesshe is also taking gabapentin and Tramadol. She can be reached at [phone] if there are any questions. documented in this encounter Plan of Treatment Not on filedocumented as of this encounter Visit Diagnoses Not on filedocumented in this encounter Care Teams City Director Relationship Specialty Start Date End Date Ro Norton APRN, C.N.P., PCP - General Family Medicine D.N.P. [address] [phone] documented as of this encounter
--- OUTSIDE RECORDS SUMMARY | 2022-01-30 19:59 | XMS_ITS | Encounter Summary ---
:1970 Author Organization [facility] Address [address] [place] [address] Care Team Providers Name Role Phone Ro Norton APRN C.N.PRaffy, D.N.P. Primary Care Provider Encounter Details Date Type Department Care Team Description 12/24/2019 Orders Only Department of [place], Angelita Conde, Fracture T ibial Orthopedic Surgery in [place], C.N.PRaffy, Plate au Closed [place], [place] M.S.N. Subsequent Left [address] (Primary Dx) [place] [address] [phone] Social History Tobacco Use Types Packs/Day Years [...] do you attend sabianist or Never 2021 mormon services? Do you [...] Primary documented in this encounter Care Teams Motor Equipment Commanding Officer Relationship Specialty Start Date End Date Ro Norton APRN, C.N.P., PCP - General Family Medicine D.N.P. [address] [phone] documented as of this encounter
--- OUTSIDE RECORDS SUMMARY | 2022-01-30 19:59 | XMS_ITS | Encounter Summary ---
:1970 Author Organization [facility] Address [address] [place] [address] Care Team Providers Name Role Phone Ro Norton APRN C.N.P., D.N.P. Primary Care Provider Encounter Details Date Type Department Care Team Description 01/07/2020 Clinical Communication Department of Raudel Lewis Orthopedic Surgery in [place], [place] [address] [place] [address] [address] [place] [phone] Social History Tobacco Use Types Packs/Day Years [...] do you attend sabianism or Never 2021 synagogue services? Do you [...] on filedocumented in this encounter Care Teams Mechanical Systems Engineer Relationship Specialty Start Date End Date Ro Norton APRN, C.N.P., PCP - General Family Medicine D.N.P. [address] [phone] documented as of this encounter
--- OUTSIDE RECORDS SUMMARY | 2022-01-30 19:59 | XMS_ITS | Encounter Summary ---
:1970 Author Organization [facility] Address [address] [place] [address] Care Team Providers Name Role Phone Ro Norton APRN, C.N.P., D.N.P. Primary Care Provider Reason for Visit Reason Comments Post Hospital Follow-up d/c 10/27/2019 Encounter Details Date Type Department Care Team Description 10/29/2019 Clinical Communication Department of Ro Nortno [facility], MORGAN Ansari, Follow-up ( d/c [place] C.N.P., D.N.P. 10/27/2019) Clinic, in [address] [address] [place], [place] [phone] (Work) [phone] Social History Tobacco Use Types Packs/Day Years [...] do you attend zoroastrian or Never 2021 uatsdin services? Do you [...] filedocumented in this encounter Care Teams Manager Fast Food Relationship Specialty Start Date End Date Ro Norton APRN, C.N.P., PCP - General Family Medicine D.N.P. [address] [phone] documented as of this encounter
--- OUTSIDE RECORDS SUMMARY | 2022-01-30 20:00 | XMS_ITS | Encounter Summary ---
:1970 Author Organization [facility] Address [address] [place] [address] Care Team Providers Name Role Phone Ro Norton APRN C.N.Kirsty, D.N.P. Primary Care Provider Reason for Referral Outpatient (Routine) - Closed Specialty Diagnoses / Procedures Referred By Contact Refer red To Contact Orthopedic Surgery Angelita Buchanan APRN, [place] C.N.Kirsty, M.S.N. [address] [place] [phone] Referral ID Status Reason Start Date Expiration Date Visits Requ ested Visits Authorized [id number] Closed 10/24/2019 10/23/2020 1 1 Scheduling Instructions Sems - est utpatient (Routine) - Closed Specialty Diagnoses / Procedures Referred By Contact Refer red To Contact Orthopedic Surgery Angelita Buchanan APRN, [place] [facility] [place] C.N.PRaffy, M.S.N. [address] [place] [phone] Referral ID Status Reason Start Date Expiration Date Visits Requ ested Visits Authorized [id number] Closed 10/24/2019 10/23/2020 1 1 Scheduling Instructions Sems - est - 830 am Encounter Details Date Type Department Care Team Description 10/24/2019 Orders Only Department of [place], Angelita Conde, Fracture T ibial Orthopedic Surgery in [place], CRaffyNRaffyP., Plate au Closed Initial [place], [place] M.S.N. Left (Primary Dx) [address] [place] [phone] [phone] Social History Tobacco Use Types Packs/Day Years [...] do you attend mu-ism or Never 2021 zoroastrian services? Do you [...] of the proximal leg. Osteopenia. Angelita Buchanan APRN, C.N.P., M.S.N. IMG DIAGNOSTIC QUE GING PROCEDURES documented in this encounter Visit Diagnoses Diagnosis Fracture Tibial Plateau Closed Initial L eft - Primary Fracture Tibial Plateau Closed Initial L eft documented in this encounter Care Teams Community Program Assistant Relationship Specialty Start Date End Date Ro Norton APRN, C.N.P., PCP - General Family Medicine D.N.P. [address] [phone] documented as of this encounter
--- OUTSIDE RECORDS SUMMARY | 2022-01-30 20:00 | XMS_ITS | Encounter Summary ---
:1970 Author Organization [facility] Address [address] [place] [address] Care Team Providers Name Role Phone Ro Norton APRN, C.N.P., D.N.P. Primary Care Provider Encounter Details Date Type Department Care Team Description 10/24/2019 Anesthesia Event RST ROMB MAIN OR Janel Hoff M.D. [address] [place] [phone] [address] [facility] Hilda Bello [place], [place] [phone] Anesthesia Record Procedure Summary Procedure Name Responsible Anesthesia Start Anesthesia Stop Time Anesthesiologist Time OPEN REDUCTION, Janel Hoff M.D. 10/24/19 0803 10/24/19 1 125 INTERNAL FIXATION TIBIA. (Left: Leg Lower) Events Date Time Event Comment 10/24/2019 0755 Monitored Transport Anesthesia p ick up from 7MB 514, 02 per nasal cannula, h ep lock x2, ECG, BP, pulse ox 0755 Anesthesia Briar [employer] Supervisor Anesthesia tr ansport medically necessary Report received [...] h andoff to the receiving staff during [facility] we 1. Identified the patient [...] Prep: Chlorhexidine (Preferred); Inserted by: Mile Love ANTHROPOLOGY AND ARCHEOLOGY INSTRUCTOR; Insertion Attempts: 1; Removal Date: 10/27/19; Removal Time: 1245 (RETIRED) Wound 10/23/19; Abrasion(s); 10/23/19 0000 by 09/29/20 1242 by Back; Lower, Left, Mid; Harris Montez, Fabi Burkett L, 09/29/20; 1242 R.N., CFRN R.N. (RETIRED) Wound 10/23/19; 0500; Yes; 10/23/19 0500 by 09/29/20 1 242 by Abrasion(s); Thigh; Mango, Miranda L, R.N., Pernell Burkettire L, Anterior, Left; CCRN R.N. 09/29/20; 1242 (RETIRED) Wound 10/23/19; 0500; Yes; 10/23/19 0500 by 09/29/20 1 241 by Abrasion(s); Knee; Miranda Cobian L, R.N., Fabi Burkett L, Anterior, Left; CCRN R.N. 09/29/20; 1241 (RETIRED) Wound 10/23/19; 0500; Yes; 10/23/19 0500 by 09/29/20 1 241 by Abrasion(s); Pretibial; Miranda Cobian, R.N., Fabi Bailey L, Distal, Left; 09/29/20; CCRN R.N. 1241 Peripheral IV Placement Date: 10/23/19 1151 by 10/27/19 1245 b y 10/23/19; Placement Jhon Ford Macke nzie A, Time: 1151; Catheter Chidi Morales R.N. Size: 22 G; Orientation: Left; Location: Hand; Site Prep: Chlorhexidine (Preferred); Technique: Anatomical landmarks (vcb); Insertion Attempts: 1; Removal Date: 10/27/19; Removal Time: 124 Indwelling Urinary Placement Date: 10/24/19 0545 by 10/24/19 181 3 by Catheter 10/24/19; Placement Dianna Vaca Alaina K, Time: 0545; Type: R.N., C.M.S.R. N. Double-lumen, Latex; Size: 16 Fr.; Balloon Size: 10 mL; Urine Returned: Yes; Removal Date: 10/24/19; Removal Time: 1813; Removal Reason: Per order ETT Placement Date: 10/24/19 08 by 10/24/19 1058 b y 10/24/19; Placement Hilda Bello, Junie Bello, Time: 828 (created via CULINARY DIRECTOR, SILVIA SANDERSN, JUAN MANUEL BENSON procedure documentation); Mask Ventilation: Easy mask; Type: Standard ETT; Single Lumen Tube Size: 7 mm; Cuffed: Yes; Blade Size: Han 2; Location: Oral; Removal Date: 10/24/19; Removal Time: 1057 Arterial Line Placement Date: 10/24/19855 by 10/24/19 1632 b y 10/24/19; Placemnt Time: Hilda Bello, Hipolito sales, Farshad W, 855 (created via CULINARY DIRECTORSILVIA R.N. procedure documentation); Orientation: Right; Location: Radial; [...] do you attend nondenominational or Never 2021 sikh services? Do you [...] Procedure Summary Date: 10/24/19 Room / Location: [place] [address] ROMB 01 [id number] / [facility] in [place], [place] Anesthesia Start: 08 Anesthesia Stop: 1124 Procedure: OPEN REDUCTION, INTERNAL [...] 2A ETT location: oral Adult blade type: Hna 2 Adult tube size: 7 Adult ETT [...] Tibial Plateau Closed Initial Left [S82.142A]. Location: RM OR 410 ROMB 1630 / [facility] in [place], [place] Provider: Raudel Lewis M.D. Pertinent components [...] with patient /legal guardian or through an weight training instructor. Risks/Benefits/Alternatives of Blood transfusion discussed with patient [...] Hilda Bello APRN, CR NA Authorized by: Luis Eduardo, Janel A, M.D. Location: OR PROCEDURE DETAILS: Line type: [...] arterial: none COMMENTS Attempt R/L radial per ANTHROPOLOGY AND ARCHEOLOGY INSTRUCTOR, placed per Dr. Navarro Janel Hoff M.D. [...] g documented in this encounter Care Teams Step Finisher Relationship Specialty Start Date End Date Ro Norton APRN, C.N.P., PCP - General Family Medicine D.N.P. [address] [phone] documented as of this encounter
--- OUTSIDE RECORDS SUMMARY | 2022-01-30 20:00 | XMS_ITS | Encounter Summary ---
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 Signature Hemoglobin 13.6 [...] 7:19 Venous) CDT AM CDT Tasia French APRN C.N.P. LAB BLOOD ADD-ON Performing Organization Address City/State/[facility] Code Phon e Number [facility] - [address] [place] [address] [facility] [place] [address] [facility] [address] [facility] (ABNORMAL) Hepatic Function Panel (10/24/2019 6:56 AM [...] 10/24/19 20 7:17 Venous) CDT AM CDT Bolivar Vinson APRN.N.P., D.N.P. LAB BLOOD ADD-ON Performing Organization Address City/[facility] Phon e Number [address] Phosphorus Inorganic (10/24/2019 6:56 AM CDT) P athologist Signature Phosphorus 3.2 2.5 - 4.5 10/24/2019 DTL (Inorganic), S mg/dL 7:51 AM CDT Specimen Anatomical Collection Method Collection Time Receive d Time (Source) Location / / Volume Laterality Blood (Blood, 10/24/2019 6:56 AM 10/24/19 20 7:17 Venous) CDT AM CDT Sita Flores APRN, Bolivar.N.P., D.N.P. LAB BLOOD ADD-ON Performing Organization Address City/[facility] Code Phon e Number [facility] - [address] [place] [address] [place] [address] Magnesium (10/24/2019 6:56 AM CDT) P [...] Number [facility] - [address] [place], [place] [address] [facility] [place] [address] [facility] [address] DX Chest Portable 1 View (10/24/2019 [...] ECHO DOPPLER COLOR (10/23/2019 3:03 PM CDT) [facility] Method Time Signature Ejection [...] effusion. For the complete report, see the [employer] Documents. Narrative 10/23/2019 3:58 PM CDT For the complete report, see the [employer] Documents. Final Impressions 1. Status post patent [...] Drug Screen Urine (10/23/2019 7:43 AM CDT) [facility] Method Time Signature Ethanol, [...] Laterality Urine (Urine, 10/23/2019 7:43 AM 10/23/19 20 8:47 Clean Catch) CDT AM CDT Phillip Kimbrough M.D. LAB URINE ORDERABLES Performing Organization Address City/State/ZIP Code Phon e Number [facility] - [address] [place] [address] 559 05 [place] [address] Troponin T, 2H/6H, 5th Gen (10/23/2019 7:14 AM CDT) [facility] gist Method Time Signature Troponin T, [...] 20 7:19 Venous) CDT AM CDT Narrative [facility] - [facility] - 10/23/2019 12:31 PM CDT Specimen Information: Specimen ID: [id number] Specimen Type: Blood Specimen Collection Start Date: 0 ??7:14 AM Specimen Received Date: 10/23/2019 ??7:19 AM Specimen ID: [id number] Specimen Type: Blood Specimen Collection Start Date: 0 11:48 AM Specimen Received Date: 10/23/2019 11:52 AM Sita Flores APRN C.NRaffyPRaffy, Katelynn.N.P. LAB BLOOD TROPONI N Performing Organization Address City/State/ZIP Code Phon e Number [facility] - [address] [place] [address] 55 05 [place] [address] [facility] [address] [facility] Critical Care (10/23/2019 6:55 AM CDT) Narrative [...] Signature Ventricular Rate 72 BPM MUSE ECG/Min UT Interval 134 ms MUSE QRSD Interval 94 ms MUSE QT Interval 434 ms MUSE QTC Interval 475 ms MUSE P [place] 80 degrees MUSE R [place] 96 degrees MUSE T Wave [place] 102 degrees MUSE Specimen Anatomical Collection Method [...] NA SARS Coronavirus 2, Molecular Detection, PCR (MANAGER OPERATIONAL) Asymptomatic (10/23/2019 5:31 AM CDT) [facility] Method Time Signature COVID-19, [...] Drug Administration an d is used per splitting machine feeder's instructions. Performance characteristics were verified by [facility] in a manner consistent with CLIA requirements. Visit the CDC website: https://www.cdc.g ov/coronavirus/ for the most recent guidelines on [place] virus testing. Fact Sheet for Healthcare Providers: https://www.fda.gov/media/920439/downloa d Fact Sheet for Patients: https://www.fda.gov/media/659439/downloa d Specimen Anatomical Collection Method Collection Time Receive d Time (Source) Location / / Volume Laterality Varies 10/23/2019 5:31 AM 0 6:00 (Nasopharynx) CDT AM CDT Bolivar Vinson APRN.N.P., D.N.P. LAB MICROBIOLOGY - GENERAL ORDERABLES Performing Organization Address City/[facility]/ZIP [facility] Phon e Number [facility] - [address] [place], [place] [address] [facility] DTL [place], [place] [address] [place] [address] [address] [facility] Troponin T, Baseline, 5th gen (10/23/2019 5:18 AM CDT) P athologist Signature Troponin T, 9 <=10 ng/L 10/23/2019 ST[facility] Baseline, 5th 5:45 AM CDT gen Specimen Anatomical Collection Method Collection Time Receive d Time (Source) Location / / Volume Laterality Blood (Blood, 10/23/2019 5:18 AM 10/23/19 20 5:24 Venous) CDT AM CDT Sita Flores APRN, NinoskaN.P., D.N.P. LAB BLOOD TROPONI N Performing Organization Address City/[facility] Phon e Number [facility] - [address] [place], [place] [address] [facility] [place] [address] [facility] [address] Lactate, POCT (10/23/2019 4:14 AM CDT) Analysis Performed At Patho logist Time Signature Lactate, POCT Collected DEFAULT 10/23/2019 LX 4:14 AM CDT Specimen Anatomical Collection Method Collection Time Receive d Time (Source) Location / / Volume Laterality Blood (Blood, 10/23/2019 4:14 AM 10/23/19 20 4:14 Venous) CDT AM CDT Phillip Kimbrough M.D. LAB POCT ORDERABLES - DEVICE Performing Organization Address City/[facility] Phon e Number [facility] - [address] [place], [place] [address] [facility] [place] [address] [facility] [address] (ABNORMAL) Lactate, POCT (10/23/2019 4:13 AM CDT) P athologist Signature Lactate, POCT 0.47 (L) 0.50 - 10/23/2019 PCLX 2.20 4:32 AM CDT mmol/L Sample Site, [facility] 10/23/2019 PCLX POCT 4:32 AM CDT Specimen Anatomical Collection Method Collection Time Receive d Time (Source) Location / / Volume Laterality Blood 10/23/2019 4:13 AM 0 4:32 CDT AM CDT Unknown Provider LAB POCT ORDERABLES - DEVICE Performing Organization Address City/State/[facility] Code Phon e Number POC [facility] [address] [place] [address] PCLX [facility] [place] [address] Pyrites POC 200 [facility] Venous Blood Gas and Electrolytes CG8+, POCT (10/23/2019 4:13 AM CDT) athologist Signature Sample Site, [facility] 10/23/2019 PCSM POCT 4:32 AM [...] POCT ORDERABLES - DEVICE Performing Organization Address City/[facility] Code Phon e Number POC [facility] INPATIENT [address] [place], [place] [address] [place]S [place] [id number] [place] [address] [place] [address] Ethanol Level, Serum (10/23/2019 4:13 AM CDT) [...] Number [facility] - [address] [place], [place] [address] [facility] [place]TB[place], [place] [phone] [place] [address] Amylase, Total (10/23/2019 4:13 AM CDT) athologist Signature Amylase, Total, 32 26 - 102 10/23/2019 DTL S U/L 5:17 AM CDT Specimen Anatomical Collection Method Collection Time Receive d Time (Source) Location / / Volume Laterality Blood (Blood, 10/23/2019 4:13 AM 10/23/19 5:04 Venous) CDT AM CDT Phillip Kimbrough M.D. LAB BLOOD ADD-ON Performing Organization Address City/[facility] Phon e Number [facility] - [address] [place], [place] [address] [place] [address] hCG (Human Chorionic Gonadotropin), Quantitative, (10/23/2019 4:13 AM CDT) athologist Signature HCG, 0.5 <5 IU/L 10/23/2019 [facility] Quantitative, 4:40 AM CDT , P Comment: [...] M.D. LAB BLOOD ADD-ON Performing Organization Address City/[facility] Phon e Number [facility] - [address] Type and Screen (with reflex Antibody ID) (10/23/2019 4:12 AM CDT) [facility] gist Method Time Signature ABORh O Pos Not 10/23/2019 STRM applicable 4:46 AM CDT Antibody Negative Negative 10/23/2019 STRM Screen 5:01 AM CDT Type & Screen 10/26/2019 10/23/2019 STRM Expiration 23:59 4:46 AM CDT Testing Pyrites DEFAULT 10/23/2019 STRM Location 4:27 AM CDT Specimen Anatomical Collection Method Collection Time Receive d Time (Source) Location / / Volume Laterality Blood (Blood, 10/23/2019 4:12 AM 10/23/19 4:27 Venous) CDT AM CDT Phillip Kimbrough M.D. LAB BLOOD BANK TEST ORDERABL ES Performing Organization Address City/[facility]/ZIP Code Phon e Number [facility] - [address] [place], [place] [address] [facility] [place] [address] [facility] [address] [facility] APTT (Activated Partial Thromboplastin Time) (10/23/2019 4:12 AM CDT) P athologist Signature Activated 27 25 - 37 sec 10/23/2019 STMA Partial 4:47 AM CDT Thrombopl Time, P Specimen Anatomical Collection Method Collection Time Receive d Time (Source) Location / / Volume Laterality Blood (Blood, 10/23/2019 4:12 AM 10/23/19 4:24 Venous) CDT AM CDT Phillip Kimbrough M.D. LAB BLOOD ADD-ON Performing Organization Address City/[facility]/ZIP Code Phon e Number [facility] - [address] [place], [place] [address] 05 [place] [address] [facility] [address] [facility] Prothrombin Time (PT) (10/23/2019 4:12 AM CDT) [...] e Number [facility] - [address] [place], [place] 55 05 [place] [address] [facility] [address] [facility] (ABNORMAL) Basic Metabolic Panel (10/23/2019 4:12 AM [...] CDT eGFR-Black/Afric >90 >=60 10/23/2019 STMA an [place] mL/min/BSA 4:41 AM CDT Comment: ----ADDITIONAL INFORMATION---- [...] e Number [facility] - [address] [place], [place] [address] 05 [place] [address] Laboratories-[address] (ABNORMAL) AST (Aspartate Aminotransferase) (10/23/2019 4:12 AM CDT) [facility] Method Time Signature Aspartate 239 (H) 8 - 43 10/23/2019 STMA Aminotransferase U/L 4:41 AM CDT (AST), P Specimen Anatomical Collection Method Collection Time Receive d Time (Source) Location / / Volume Laterality Blood (Blood, 10/23/2019 4:12 AM 10/23/19 20 4:24 Venous) CDT AM CDT Phillip Kimbrough M.D. LAB BLOOD ADD-ON Performing Organization Address City/State/ZIP Code Phon e Number [facility] - [address] [place] [address] Laboratories-[address] (ABNORMAL) CBC with Differential, Blood (10/23/2019 4:12 AM CDT) [facility] Method Time [...] M.D. LAB BLOOD ADD-ON Performing Organization Address City/[facility] Code Phon e Number [facility] - [address] [place] [address] 05 [place] [address] Laboratories-[address] (ABNORMAL) Thromboelastograph, Kaolin, Blood (10/23/2019 4:09 [...] LAB BLOOD NON ADD-ON Performing Organization Address City/[facility]/ZIP Code Phon e Number [facility] - [address] [place] [address] 05 [place] [address] [facility] [address] [facility] DX Chest Portable 1 View (10/23/2019 4:06 AM CDT) Anatomical Region Laterality Modality Chest, Thoracic RST LOS, Thoracic ARZ LOS, Thoracic N/A Digital Radiography FLA LOS Specimen (Source) Anatomical Collection Method Collection Time Re ceived Time Location / / Volume Laterality 10/23/2019 4:27 AM CDT Impressions 10/23/2019 6:42 AM CDT No significant change compared to [facility] radiograph from 10/22/2019. Sternotomy. Marked pulmonary [...] VIEW IMPRESSION: No significant change compared to [facility] r adiograph from 10/22/2019. Sternotomy. Marked pulmonary artery dila tation. Patchy opacities right lung base. No pleural effusion or pneumothora x. Rib and sternal fractures better demonstrated on comparison CT. Phillip Kimbrough M.D. IMSelam DIAGNOSTIC IMAGING PROCE BLAIR documented in this [...] Gaona R.N.)0830 (Given - Provider: Damaris Ferreira RRaffyN.)1355 (Given - Provider: Damaris Ferreira RaRffyN.)1947 (Given - Provider: Montserrat Boone R.N.) 0215 (Given - Provider: Montserrat Boone R.N.)0809 (Given - Provider: Damaris Ferreira RRaffyN.)1550 (Given - Provider: Ethan TrippN. - Comment: Patient given mag citrate at 1400-micromedex says no PO medical center representative within 2 hours) 0300 (Given - Provider: [...] chew. enoxaparin injection 30 mg (LOVENOX) (CANCELED) 30 ( Given - Provider: Damaris Ferreira R.N.)2001 (Given - Provider: Montserrat Boone R.N.) 809 (Given - Provider: Damaris Ferreira R.N.)2018 (Given - Provider: Montserrat Boone R.N.) 30 mg, subcutaneous, 2 times daily, First dose on Mon10/25/19 at 0900 enoxaparin injection 40 mg (LOVENOX) 38 (Given - Provider: Ethan TrippNRaffy) 40 mg, subcutaneous, Daily, First dose ( after last modification) on Mon10/27/19 at 0900 gabapentin capsule 300 mg (NEURONTIN) 0831 (Given - Pr ovider: Damaris Ferreira R.N.)1355 (Given - Provider: Damaris Ferreira R.N.)2002 (Given - Provider: Montserrat Boone R.N. - Comment: constanza discontinued) 0809 (Given - Provider: Damaris Ferreira R.N.)1550 (Given - Provider: Damaris Ferreira R.N. - Comment: Patient given mag citrate at 1400-micromedex says no PO medical center representative within 2 hours)2018 (Given - Provider: Montserrat Boone R.N.) 09 (Given - Provider: Ethan TrippNRaffy) 300 mg, [...] (COMPLETED) 1656 (Given - Provider: Damaris Ferreira RRaffyN. - Comment: Patient request to let mag citrate work first before UT route) 1 enema, rectal, Once, On 10/26/19 at 1345, For 1 dose polyethylene glycol powder packet 17 g (MIRALAX) 0830 (Given - Provider: Ethan TrippN.) 08 (Given - Provider: Damaris Ferreira R.N.) 0935 (Not Given - Provider: Damaris Ferreira R.Rosamaria. - Reason: Patient/family refused) 17 g, oral, [...] RRaffyNRaffy) 0938 (Given - Provider: Damaris saldana RRaffyNRaffy) 2 puff, inhalation, Daily (RT), First do se on Mon10/23/19 at 0800, tiotropium respimat was interchanged for tiotropium handihaler (same frequency) traMADoL tablet 50 mg (ULTRAM) 0134 (Given - Provider: Ethan HicksNRaffy)0547 (Given - Provider: Augustus Gaona RRaffyNRaffy)1112 (Given - Provider: Ethan TrippN.)1659 (Given - Provider: Damaris Ferreira R.N.)2256 (Given - Provider: Ethan BadilloN.) 0514 (Given - Provider: Ethan BadilloN.)1115 (Given - Provider: Damaris Ferreira R.N.)1800 (Given - Provider: Damaris Ferreira R.N.)2350 (Given - Provider: Ethan BadilloN.) 0519 (Given [...] mg (ROXICODONE) (CANCELED) 0646 (Given - Provider: Ethan HicksNRaffy) 10 mg, oral, Every 4 hours PRN, severe p ain or score 7-10 of 10, Starting on Mon10/23/19 at 0438 oxyCODONE IR tablet 10 mg (ROXICODONE)(Linked Group 1) 1112 (See Alternative - Provider: Damaris Ferreira R.N.)194 (See Alternative - Provider: Montserrat Boone R.N.) 041 (See Alternative - Provider: Montserrat Boone R.N.)1131 (See Alternative - Provider: Damaris Ferreira R.N.)1640 (See Alternative - Provider: Damaris Ferreira R.N.) 1232 (See Alternative - Provider: Ethan MayoNRaffy) 10 mg, oral, Every 4 hours PRN, moderate pain or score 4-6 of 10, Starting on Mon10/25/19 at 0719 oxyCODONE IR tablet 15 mg (ROXICODONE)(Linked Group 1) 1112 (Given - Provider: Damaris Ferreira R.N.)1946 (Given - Provider: Montserrat Boone R.N.) 041 (Given - Provider: Montserrat Boone R.N.)113 (Given - Provider: Ethan TrippNRaffy)1640 (Given - Provider: Ethan TrippNRaffy) 1232 (Given - Provider: Ethan TrippNRaffy) 15 mg, oral, Every 4 hours PRN, [...] documented as of this encounter Care Teams Instructor Extension Work Relationship Specialty Start Date End Date Ro Norton APRN, C.N.P., PCP - General Family Medicine D.N.P. [address] [phone] documented as of this encounter
--- OUTSIDE RECORDS SUMMARY | 2022-01-30 20:00 | XMS_ITS | Encounter Summary ---
:1970 Author Organization [facility] Address [address] [place] [address] Care Team Providers Name Role Phone Ro Norton APRN, C.N.P., D.N.P. Primary Care Provider Encounter Details Date Type Department Care Team Description 10/24/2019 Orders Only [facility] PCP [facility] MNT Ro Norton APRN, C.N.P., D.N.P. [address] [place] [phone] (Wo rk) Social History Tobacco Use Types [...] do you attend jew or Never 2021 anabaptism services? Do you [...] filedocumented in this encounter Care Teams Post Adoption Coordinator Relationship Specialty Start Date End Date Ro Norton APRN, C.N.P., PCP - General Family Medicine D.N.P. [address] [phone] documented as of this encounter
[2022-01-30 20:06] VITALS: BP 116/88; PULSE 97; RESP 22; O2SAT 81
--- NOTE | 2022-01-30 20:20 | ED.NURSE ---
post nebulizers, pt states she feels much better and they help more than at home.
--- NOTE | 2022-01-30 20:29 | ED.NURSE ---
Block in with patient, pt requesting to discharge home. oximetry 72-82% room air, pt states she feels back to her baseline which is low 80%
[2022-01-30 20:42] VITALS: BP 116/88; PULSE 97; RESP 22; TEMP 36.7
--- NOTE | 2022-01-31 20:00 | ED_ITS ---
HPI - General Adult General Date Seen: 01/30/22 Chief complaint: Shortness of Breath/Dyspnea Stated complaint: Needs a Breathing Treatment Time Seen by Provider: 01/30/22 19:15 Source: patient History of Present Illness HPI narrative: Patient is a 51-year-old woman with underlying COPD, congenital heart disease and CHF who presents saying that she is out of her oxygen and needs a neb treatment. She tells me that she has oxygen ordered and it should come tomorrow morning. She also tells me that she is out of her albuterol inhaler, and admits that she frequently forgets to take her Advair. She notes that she was more short of breath today. She says her O2 sats typically run about 88-90%, not normally higher than that, but she usually uses oxygen mainly at night. We seen her a couple times recently with lower O2 sats, needing a neb treatments and more oxygen therapy. She has doctors outside of our clinic system, she tells me that she has upcoming appointments that she plans to keep. She downplays the severity of her illnesses. She tells me that she has been having some coughing, but believes that her CHF is currently under good control, does not believe that she has a current illness such as pneumonia, she was treated for 1 recently and believes that is resolved. She tells me she does not think anything specific is going on today except that she was out of her albuterol and oxygen. She tells me that she thinks are medicines are just ?stronger as whenever she gets the a neb treatment in the ER she feels significantly better than when she uses her own. Related Data Home Medications Medication Instructions Recorded Confirmed albuterol sulfate 90 mcg/actuation 2 puff inhalation QID PRN 01/10/22 01/17/22 aerosol inhaler (ProAir HFA) furosemide 20 mg tablet 20 mg PO DAILY 01/10/22 01/17/22 ipratropium 0.5 mg-albuterol 3 mg 3 ml inhalation Q6H PRN 01/11/22 01/17/22 (2.5 mg base)/3 mL nebulization soln pramipexole 0.125 mg tablet 0.125 mg PO DAILY 01/11/22 01/17/22 prednisone 20 mg tablet 20 mg PO DAILY 11/22/22 11/28/22 sildenafil (pulm.hypertension) 20 20 mg PO DAILY 01/11/22 01/17/22 mg tablet Previous Rx's Medication Instructions Recorded methylprednisolone 4 mg tablets in See Rx Instructions PO .COMPLEX 01/17/22 a dose pack (Medrol (Rivera)) #21 ea Allergies Allergy/AdvReac Type Severity Reaction Status Date / Time Sulfa (Sulfonamide Allergy Severe Verified 01/30/22 19:20 Antibiotics) Review of Systems Status of ROS: Reports: 10 or more systems reviewed and unremarkable except as noted in History and below [facility] Medical History CHF (congestive heart failure) Constipation COPD (chronic obstructive pulmonary disease) Fracture of ribs, multiple Fracture of tibial plateau, closed Hemarthrosis Hypomagnesemia Severe pulmonary hypertension Shortness of breath Tobacco use Traumatic fracture of sternum Social History Smoking Status: Current every day smoker What tobacco products do you use: cigarettes Second hand tobacco smoke exposure: No How often do you have a drink containing alcohol: never AUDIT-C Alcohol total score: 0 Non-prescribed substance use: denies use Exam Narrative: Exam Narrative: Vital signs as noted above. In general, an alert, nontoxic woman. Actually does not appear to be struggling with her breathing. Head: Normocephalic, atraumatic. Eyes: Pupils are equal reactive. Extraocular movements are full. Conjunctivae are normal. ENT: Mucous membranes are moist. Throat is normal. Neck: Supple without lymphadenopathy. Heart: Regular rate and rhythm. Lungs: Diffuse wheezes. No increased work of breathing. Abdomen: Soft and nontender. No organomegaly. Extremities: Mild edema in bilateral lower extremities, baseline per patient. Pulses intact. No erythema or warmth. Neurologic: Patient is alert and oriented to person and place. Speech is fluent. Face is symmetric. Moves all extremities equally. Affect: Normal. Skin: Warm and dry. Well perfused. Const: Vital Signs, click to edit/add: Vital Signs - 24 hr 01/30/22 20:42 Temperature 98.0 F Pulse Rate [Right Pulse Oximeter] 97 Respiratory Rate 22 Blood Pressure [Ri ght Upper Arm] 116/88 Documenting provider has reviewed patient's vital signs: yes Course Course Hospital Course: She was placed on oxygen on arrival here, at her normal 3 L, had O2 sats in the mid 80s on 3 L. she had a DuoNeb followed by an albuterol neb, and she says she feels significantly better. I had a conversation with her about how she would like to proceed. My argument to her was that since she did not have any oxygen we should probably keep her in the hospital until she had access to oxygen again tomorrow. She is quite sure that that is unnecessary. She says that she can tell when she is having trouble, and if she is having more trouble she will just come back. She says she only [place] blocks away. She further declines any more evaluation tonight, she says that she just needed to get a couple of nebs and she now feels better. I have explained to her that on room air as she is still only about 79% which is quite a bit off of her baseline, even though she says she is feeling better. She declines further intervention or admission. She is of sound mind, I do think she can make these decisions for herself. She is not showing any signs of respiratory distress or confusion. I have reinforced that we are always happy to see her at any time should she decide that she would like to come back. I refilled her albuterol inhaler for her. She also feels that she does better on prednisone so I have sent another prescription for that as well. Would recommend that she sees her primary clinic doctors as soon as possible given these frequent episodes of worsening respir atory status and need for steroids. Also recommend that she take her medications as prescribed. Vital Signs Vital signs: Initial Vital Signs Temperature 98.0 F 01/30/22 19:17 Temperature Source Temporal Artery Scan 01/30/22 19:17 Pulse Rate 102 H 01/30/22 19:17 Respiratory Rate 18 01/30/22 19:17 Blood Pressure 170/90 H 01/30/22 19:17 Blood Pressure Mean 116 01/30/22 19:17 Blood Pressure Position Sitting 01/30/22 19:17 Pulse Oximetry 70 L 01/30/22 19:17 Oxygen Delivery Method 01/30/22 19:17 Vital Signs Temperature 98.0 F 01/30/22 19:17 Pulse Rate 102 H 01/30/22 19:17 Respiratory Rate 18 01/30/22 19:17 Blood Pressure 170/90 H 01/30/22 19:17 Pulse Oximetry 70 L 01/30/22 19:17 Oxygen Delivery Method 01/30/22 19:17 Temperature 98.0 F 01/30/22 20:42 Pulse Rate 97 01/30/22 20:42 Respiratory Rate 22 01/30/22 20:42 Blood Pressure 116/88 01/30/22 20:42 Pulse Oximetry 81 L 01/30/22 20:06 Oxygen Delivery Method 01/30/22 20:06 Discharge Plan Discharge Clinical Impression: COPD (chronic obstructive pulmonary disease) Patient Disposition: Home, Self-Care Condition: Improved Instructions: COPD (Chronic Obstructive Pulmonary Disease) (DC) Additional Instructions: Medications as prescribed. Use oxygen as needed. Return at any time for wors ening shortness of breath. Follow-up with your regular doctors as planned. Prescriptions: No Action albuterol sulfate [ProAir HFA] 90 mcg/actuation HFA aerosol inhaler 2 puff INHALATION QID PRN furosemide 20 mg tablet 20 mg PO DAILY ipratropium-albuterol 0.5 mg-3 mg(2.5 mg base)/3 mL solution for nebulization 3 ml INHALATION Q6H PRN pramipexole 0.125 mg tablet 0.125 mg PO DAILY prednisone 20 mg tablet 20 mg PO DAILY sildenafil (pulm.hypertension) 20 mg tablet 20 mg PO DAILY methylprednisolone [Medrol (Rivera)] 4 mg tablets,dose pack See Rx Instructions .ROUTE .COMPLEX Qty: 21 0RF Rx Instructions: orally per package directions Follow Up/Referrals: Provider,Not a Local [Primary Care Provider] - Stand Alone Forms: [employer] Info Instructions
== END 2022-01-30 20:44 | disposition home or self-care (01) ==
PROVIDERS: Emergency Provider Emergency Medicine
DX: J44.9 Chronic obstructive pulmonary disease, unspecified (principal)
CPT/HCPCS: 94640; 94761; 99284

== ENCOUNTER 2022-02-06 18:20 | Emergency (ER) | payer MEDICAID, SELFPAY ==
[2022-02-06 18:31] VITALS: BP 118/105; PULSE 95; RESP 20; TEMP 36.1; O2SAT 84; BMI 19.5
[2022-02-06 18:35] VITALS: O2SAT 92
[2022-02-06 18:36] VITALS: BP 157/108; PULSE 94; RESP 14; O2SAT 89
[2022-02-06 19:00] VITALS: O2SAT 94
[2022-02-06] MEDS: FUROSEMIDE 40 MG TABLET PO (19:05)
[2022-02-06 19:13] VITALS: BP 128/82; PULSE 94; RESP 14; TEMP 36.1
--- NOTE | 2022-02-06 19:18 | ED.NURSE ---
Ice chips and water provided. Pt tolerating RA at this time. Per MD ramos to d/c.
--- NOTE | 2022-02-06 19:23 | ED_ITS ---
HPI - General Adult General Date Seen: 02/06/22 Chief complaint: Lower Extremity Swelling Stated complaint: Swelling all over body Time Seen by Provider: 02/06/22 18:51 Source: patient History of Present Illness HPI narrative: Patient is a 51-year-old woman with underlying CHF and COPD who presents saying that she has not had access to her Lasix and feels that she is swelling all over. She actually feels that her breathing is much better. I saw her not too long ago when she was significantly hypoxic, she has been on a few rounds of prednisone, and now has access to her oxygen again, and feels that her breathing is significantly improved. She does however say that her legs are more swollen and they feel tight. She says that she was supposed to be on double the dose of Lasix, she says that she takes 20 mg a day. Her primary doctor she says had told her to double up for a few days, because she had been on the prednisone and was having more edema than usual. She thinks that there was some confusion with her clinic as to getting her prescription filled earlier because she was doubling up. As such, she did not have a prescription ready when she was supposed to, and says she has been out of it for a couple of days. Here requesting Lasix. Related Data Home Medications Medication Instructions Recorded Confirmed albuterol sulfate 90 mcg/actuation 2 puff inhalation QID PRN 01/10/22 02/06/22 aerosol inhaler (ProAir HFA) furosemide 20 mg tablet 20 mg PO DAILY 01/10/22 02/06/22 ipratropium 0.5 mg-albuterol 3 mg 3 ml inhalation Q6H PRN 01/11/22 02/06/22 (2.5 mg base)/3 mL nebulization soln pramipexole 0.125 mg tablet 0.125 mg PO DAILY 01/11/22 02/06/22 sildenafil (pulm.hypertension) 20 20 mg PO DAILY 01/11/22 02/06/22 mg tablet Allergies Allergy/AdvReac Type Severity Reaction Status Date / Time Sulfa (Sulfonamide Allergy Severe Verified 01/30/22 19:20 Antibiotics) Review of Systems Status of ROS: Reports: 10 or more systems reviewed and unremarkable except as noted in History and below [facility] Medical History CHF (congestive heart failure) Constipation COPD (chronic obstructive pulmonary disease) Fracture of ribs, multiple Fracture of tibial plateau, closed Hemarthrosis Hypomagnesemia Severe pulmonary hypertension Shortness of breath Tobacco use Traumatic fracture of sternum Social History Smoking Status: Current every day smoker What tobacco products do you use: cigarettes Do you use any of these nicotine containing products: None Second hand tobacco smoke exposure: No How often do you have a drink containing alcohol: never AUDIT-C Alcohol total score: 0 Non-prescribed substance use: denies use Exam Narrative: Exam Narrative: Vital signs as noted above. In general, an alert, well-appearing patient. She is actually breathing easily today. Head: Normocephalic, atraumatic. Eyes: Pupils are equal reactive. Extraocular movements are full. Conjunctivae are normal. ENT: Mucous membranes are moist. Throat is normal. Neck: Supple without lymphadenopathy. Heart: Regular rate and rhythm. No murmur or rub. Lungs: Sounds are slightly decreased, but no wheezing and no crackles today. Abdomen: Soft and nontender. No organomegaly. Extremities: Bilateral feet are somewhat poorly perfused, but baseline for her per her report. Pulses intact bilaterally. She has pitting edema in both ankles and shins. I do not feel any pitting edema above mid miller. No abdominal edema. No upper extremity edema. She does have a little bit of puffiness to her face which I attribute to her recent multiple courses of prednisone. Neurologic: Patient is alert and oriented to person and place. Speech is fluent. Face is symmetric. Moves all extremities equally. Affect: Normal. Skin: Warm and dry. Well perfused. Const: Vital Signs, click to edit/add: Vital Signs - 24 hr 02/06/22 18:31 02/06/22 19:13 02/06/22 18:35 Temperature 96.9 F L 96.9 F L Pulse Rate [Pulse Oximeter] 95 94 Respiratory Rate 20 14 Blood Pressure [Le ft Upper Arm] 118/105 H 128/82 Pulse Oximetry 84 L 92 Oxygen Delivery Me thod Room Air Nasal Cannula Oxygen Flow Rate 2 02/06/22 18:36 02/06/22 19:00 Temperature Pulse Rate [Pulse Oximeter] 94 Respiratory Rate 14 Blood Pressure [Le ft Upper Arm] 157/108 H Pulse Oximetry 89 94 Oxygen Delivery Me thod Room Air Room Air Oxygen Flow Rate Documenting provider has reviewed patient's vital signs: yes Course Course Hospital Course: Clinically, patient looks much improved relative to the last couple of time she has been here. Her room-air sats are much closer to her baseline, which is about 88%. Her stated reason for coming in is that she is out of Lasix. She does not look to be in significant heart failure to me, her lungs are clear, her O2 sats are vastly improved relative to the last time I saw her, and as per usual, she is not interested in significant workup but only in getting her medication. She says that she has a prescription or will have 1 in the next day or 2, but did wonder if we could give her an extra couple of doses of Lasix. I do not have that in the [facility] machine, so I gave her an extra 20 mg from here just to take with her. Vital Signs Vital signs: Initial Vital Signs Temperature 96.9 F L 02/06/22 18:31 Temperature Source Temporal Artery Scan 02/06/22 18:31 Pulse Rate 95 02/06/22 18:31 Respiratory Rate 20 02/06/22 18:31 Blood Pressure 118/105 H 02/06/22 18:31 Blood Pressure Mean 109 02/06/22 18:31 Blood Pressure Position High-Fowlers 02/06/22 18:31 Pulse Oximetry 84 L 02/06/22 18:31 Oxygen Delivery Method 02/06/22 18:31 Vital Signs Temperature 96.9 F L 02/06/22 18:31 Pulse Rate 95 02/06/22 18:31 Respiratory Rate 20 02/06/22 18:31 Blood Pressure 118/105 H 02/06/22 18:31 Pulse Oximetry 84 L 02/06/22 18:31 Oxygen Delivery Method 02/06/22 18:31 Temperature 96.9 F L 02/06/22 19:13 Pulse Rate 94 02/06/22 19:13 Respiratory Rate 14 02/06/22 19:13 Blood Pressure 128/82 02/06/22 19:13 Pulse Oximetry 94 02/06/22 19:00 Oxygen Delivery Method 02/06/22 19:00 Oxygen Flow Rate 2 02/06/22 18:35 Discharge Plan Discharge Clinical Impression: Bilateral lower extremity edema, Medication refill Patient Disposition: Home, Self-Care Condition: Stable Instructions: Leg Edema (ED) Additional Instructions: Refill your Lasix as discussed. Follow-up with your primary doctor's. Return as needed for worsening shortness of breath, worsening swelling, or other concerns. Prescriptions: No Action albuterol sulfate [ProAir HFA] 90 mcg/actuation HFA aerosol inhaler 2 puff INHALATION QID PRN furosemide 20 mg tablet 20 mg PO DAILY ipratropium-albuterol 0.5 mg-3 mg(2.5 mg base)/3 mL solution for nebulization 3 ml INHALATION Q6H PRN pramipexole 0.125 mg tablet 0.125 mg PO DAILY sildenafil (pulm.hypertension) 20 mg tablet 20 mg PO DAILY Follow Up/Referrals: Provider,Not a Local [Primary Care Provider] - Stand Alone Forms: [email or web address] Info Instructions
== END 2022-02-06 19:13 | disposition home or self-care (01) ==
PROVIDERS: Emergency Provider Emergency Medicine
DX: R60.0 Localized edema (principal)
CPT/HCPCS: 99283; 99284; A9270

== ENCOUNTER 2022-03-26 13:08 | Emergency (ER) | payer MEDICAID, SELFPAY ==
[2022-03-26 13:14] VITALS: BP 92/66; PULSE 97; RESP 32; TEMP 35.9; BMI 20.2
--- NOTE | 2022-03-26 13:28 | CRLHL7_ITS ---
For Patients: As a result of the Century Cures Act, medical imaging exams and procedure reports are released immediately into your electronic medical record. You may view this report before your referring provider. If you have questions, please contact your health care provider. INDICATION: Short of breath. Cough. COMPARISON: 31 October 2018. FINDINGS: Sternotomy. Large heart with lobular presumed enlarged central pulmonary arteries distorting both desiree noted with a pattern and appearance unchanged from comparison. Hyperinflated hyperlucent lungs with diffuse hazy reticular interstitial prominence with no interval change. No new pneumonia or nodule. No pneumothorax or effusion. Dictated by Farshad Araujo MD @ 03/26/2022 2:44:16 PM (Electronically Signed)
--- NOTE | 2022-03-26 13:29 | ED.GENADULT ---
HPI - General Adult General Chief complaint: Shortness of Breath/Dyspnea Stated complaint: Breathing treatment. Difficulty breathing Time Seen by Provider: 03/26/22 13:12 History of Present Illness HPI narrative: This 51-year-old female comes in reporting worsening shortness of breath. She has COPD and continues to smoke. She states that she uses oxygen at night at home. She does not report any fevers. She does have a chronic cough. She states she normally takes an inhaler or nebulizer and feels like it does not work as well as what is administered here. She arrives with normal vital signs except for an increased respiratory rate at 32 breaths per minute. She states that her baseline oximetry is typically lower. Related Data Home Medications Medication Instructions Recorded Confirmed albuterol sulfate 90 mcg/actuation 2 puff inhalation QID PRN 01/10/22 02/06/22 aerosol inhaler (ProAir HFA) furosemide 20 mg tablet 20 mg PO DAILY 01/10/22 02/06/22 ipratropium 0.5 mg-albuterol 3 mg 3 ml inhalation Q6H PRN 01/11/22 02/06/22 (2.5 mg base)/3 mL nebulization soln pramipexole 0.125 mg tablet 0.125 mg PO DAILY 01/11/22 02/06/22 sildenafil (pulm.hypertension) 20 20 mg PO DAILY 01/11/22 02/06/22 mg tablet Allergies Allergy/AdvReac Type Severity Reaction Status Date / Time Sulfa (Sulfonamide Allergy Severe Verified 01/30/22 19:20 Antibiotics) Review of Systems Status of ROS: Reports: 10 or more systems reviewed and unremarkable except as noted in History and below Narrative: Constitutional: No fevers, no weight gain or loss. Eyes: No discharge. No vision changes. HENT: No congestion, no sore throat, no ear pain. Cardiovascular: No chest pain, no palpitations. Respiratory: Chronic cough. Shortness of breath. Gastrointestinal: No abdominal pain, no vomiting, no diarrhea. Genitourinary: No dysuria, no hematuria. Musculoskeletal: Normal range of motion. Skin: No rashes, no pruritis. Neurological: No dizziness, weakness, sensory change, speech change. Endo/Heme/Allergies: No bruising or bleeding. No polydipsia. Pysch: no suicidality, no anxiety, no insomnia. All other systems reviewed and are negative. [facility] Medical History CHF (congestive heart failure) Constipation COPD (chronic obstructive pulmonary disease) Fracture of ribs, multiple Fracture of tibial plateau, closed Hemarthrosis Hypomagnesemia Severe pulmonary hypertension Shortness of breath Tobacco use Traumatic fracture of sternum Social History Smoking Status: Current every day smoker What tobacco products do you use: cigarettes Do you use any of these nicotine containing products: None Second hand tobacco smoke exposure: No How often do you have a drink containing alcohol: never AUDIT-C Alcohol total score: 0 Non-prescribed substance use: denies use Exam Narrative: Exam Narrative: Constitutional: Well-developed, well-nourished, no acute distress. HEENT: Normocephalic, atraumatic. Neck: Normal range of motion. Nontender. Supple. Heart: Regular. No murmurs. Normal rate. Intact distal pulses. Lungs: No chest discomfort. Bilateral wheezes and rhonchi. Abdomen: Normal bowel sounds. Nontender. No rebound tenderness. Genitalia: Deferred. Back: No midline tenderness. Normal range of motion. Extremities: Normal range of motion. No injury. Skin: Intact. No rash. Warm. No erythema or pallor. Neurologic: No altered sensation. No weakness. Alert and oriented. Psychiatric: No suicidality. No anxiety or depression. No insomnia. Nursing notes and vitals signs are reviewed. Const: Vital Signs, click to edit/add: Vital Signs - 24 hr 03/26/22 13:14 Temperature 96.6 F L Pulse Rate [Pulse Oximeter] 97 Respiratory Rate 32 H Blood Pressure [Ri ght Upper Arm] 92/66 Oxygen Delivery Me thod Room Air Course Vital Signs Vital signs: Initial Vital Signs Temperature 96.6 F L 03/26/22 13:14 Temperature Source Temporal Artery Scan 03/26/22 13:14 Pulse Rate 97 03/26/22 13:14 Respiratory Rate 32 H 03/26/22 13:14 Blood Pressure 92/66 03/26/22 13:14 Blood Pressure Mean 74 03/26/22 13:14 Blood Pressure Position Supine 03/26/22 13:14 Oxygen Delivery Method 03/26/22 13:14 Vital Signs Temperature 96.6 F L 03/26/22 13:14 Pulse Rate 97 03/26/22 13:14 Respiratory Rate 32 H 03/26/22 13:14 Blood Pressure 92/66 03/26/22 13:14 Oxygen Delivery Method 03/26/22 13:14 Temperature 96.6 F L 03/26/22 13:14 Pulse Rate 97 03/26/22 13:14 Respiratory Rate 32 H 03/26/22 13:14 Blood Pressure 92/66 03/26/22 13:14 Oxygen Delivery Method 03/26/22 13:14 Medical Decision Making MDM Narrative Medical decision making narrative: This patient has COPD and continues to smoke. She also has history of congestive heart failure and states that she is taking Lasix. She has had steroid doses in the past and states that sometimes she has retain fluid related to that. She did receive a DuoNeb here and an oral dose of dexamethasone. Discharge Plan Discharge Prescriptions: No Action albuterol sulfate [ProAir HFA] 90 mcg/actuation HFA aerosol inhaler 2 puff INHALATION QID PRN furosemide 20 mg tablet 20 mg PO DAILY ipratropium-albuterol 0.5 mg-3 mg(2.5 mg base)/3 mL solution for nebulization 3 ml INHALATION Q6H PRN pramipexole 0.125 mg tablet 0.125 mg PO DAILY sildenafil (pulm.hypertension) 20 mg tablet 20 mg PO DAILY Follow Up/Referrals: Provider,Not a Local [Primary Care Provider] -
--- NOTE | 2022-03-26 13:35 | ED.NURSE ---
pt states sats at home usually run 84%. forehead probe place on pt, sats 80-84%. RT called and giving pt a neb.
[2022-03-26] MEDS: dexAMETHasone 10 MG/ML inj PO (13:50)
[2022-03-26 14:11] VITALS: PULSE 92; O2SAT 81
--- NOTE | 2022-03-26 14:13 | ED.NURSE ---
Patient reports that her oxygen pulse ox baseline in low to mid 80's. Now using 4L following neb with sats at 82%.
[2022-03-26 14:16] VITALS: O2SAT 82
[2022-03-26 14:29] VITALS: RESP 24; O2SAT 84
[2022-03-26 14:33] VITALS: O2SAT 86; O2SAT 92
--- NOTE | 2022-03-26 14:33 | ED.NURSE ---
Titrated O2 from 4L to 3L with sats at 91%
--- NOTE | 2022-03-26 14:53 | ED_ITS ---
HPI - SOB/Dyspnea General Chief Complaint: Shortness of Breath/Dyspnea Stated Complaint: Breathing treatment. Difficulty breathing Time Seen by Provider: 03/26/22 13:12 History of Present Illness HPI Narrative: This 51-year-old female comes in reporting worsening shortness of breath. She she has history of COPD and continues to smoke. She also has a history of CHF. She states that she takes oxygen at night. She does not report any fevers. She states that her oximetry is typically in the 80s%. She does have a chronic cough. She states that she used her nebulizer at home but feels that the treatment she received here works better. Related Data Home Medications Medication Instructions Recorded Confirmed albuterol sulfate 90 mcg/actuation 2 puff inhalation QID PRN 01/10/22 02/06/22 aerosol inhaler (ProAir HFA) furosemide 20 mg tablet 20 mg PO DAILY 01/10/22 02/06/22 ipratropium 0.5 mg-albuterol 3 mg 3 ml inhalation Q6H PRN 01/11/22 02/06/22 (2.5 mg base)/3 mL nebulization soln pramipexole 0.125 mg tablet 0.125 mg PO DAILY 01/11/22 02/06/22 sildenafil (pulm.hypertension) 20 20 mg PO DAILY 01/11/22 02/06/22 mg tablet Previous Rx's Medication Instructions Recorded furosemide 40 mg tablet 40 mg PO DAILY PRN prn #20 tabs 03/26/22 methylprednisolone 4 mg tablets in See Rx Instructions PO .COMPLEX 03/26/22 a dose pack (Medrol (Rivera)) #21 ea Allergies Allergy/AdvReac Type Severity Reaction Status Date / Time Sulfa (Sulfonamide Allergy Severe Verified 01/30/22 19:20 Antibiotics) Review of Systems Status of ROS: Reports: 10 or more systems reviewed and unremarkable except as noted in History and below Narrative: Constitutional: No fevers, no weight gain or loss. Eyes: No discharge. No vision changes. HENT: No congestion, no sore throat, no ear pain. Cardiovascular: No chest pain, no palpitations. Respiratory: Chronic cough. Shortness of breath. Gastrointestinal: No abdominal pain, no vomiting, no diarrhea. Genitourinary: No dysuria, no hematuria. Musculoskeletal: Normal range of motion. Skin: No rashes, no pruritis. Neurological: No dizziness, weakness, sensory change, speech change. Endo/Heme/Allergies: No bruising or bleeding. No polydipsia. Pysch: no suicidality, no anxiety, no insomnia. All other systems reviewed and are negative. [facility] Medical History CHF (congestive heart failure) Constipation COPD (chronic obstructive pulmonary disease) Fracture of ribs, multiple Fracture of tibial plateau, closed Hemarthrosis Hypomagnesemia Severe pulmonary hypertension Shortness of breath Tobacco use Traumatic fracture of sternum Social History Smoking Status: Current every day smoker What tobacco products do you use: cigarettes Do you use any of these nicotine containing products: None Second hand tobacco smoke exposure: No How often do you have a drink containing alcohol: never AUDIT-C Alcohol total score: 0 Non-prescribed substance use: denies use Exam Narrative: Exam Narrative: Constitutional: Well-developed, well-nourished, no acute distress. HEENT: Normocephalic, atraumatic. Neck: Normal range of motion. Nontender. Supple. Heart: Regular. No murmurs. Normal rate. Intact distal pulses. Lungs: Increased respiratory rate. Bilateral rhonchi and wheezes. Abdomen: Normal bowel sounds. Nontender. No rebound tenderness. Genitalia: Deferred. Back: No midline tenderness. Normal range of motion. Extremities: Normal range of motion. No injury. No pedal edema. Skin: Intact. No rash. Warm. No erythema or pallor. Neurologic: No altered sensation. No weakness. Alert and oriented. Psychiatric: No suicidality. No anxiety or depression. No insomnia. Nursing notes and vitals signs are reviewed. Const: Vital Signs, click to edit/add: Vital Signs - 24 hr 03/26/22 13:14 03/26/22 14:11 03/26/22 14:16 Temperature 96.6 F L Pulse Rate [Pulse Oximeter] 97 92 Respiratory Rate 32 H Blood Pressure [Ri ght Upper Arm] 92/66 Pulse Oximetry 81 L 82 L Oxygen Delivery Me thod Room Air Nasal Cannula Nasal Cannula Oxygen Flow Rate 4 4 03/26/22 14:33 03/26/22 14:33 03/26/22 14:29 Temperature Pulse Rate [Pulse Oximeter] Respiratory Rate 24 Blood Pressure [Ri ght Upper Arm] Pulse Oximetry 92 86 L 84 L Oxygen Delivery Me thod Nasal Cannula Nasal Cannula Nasal Cannula Oxygen Flow Rate 4 3 4 Course Vital Signs Vital signs: Initial Vital Signs Temperature 96.6 F L 03/26/22 13:14 Temperature Source Temporal Artery Scan 03/26/22 13:14 Pulse Rate 97 03/26/22 13:14 Respiratory Rate 32 H 03/26/22 13:14 Blood Pressure 92/66 03/26/22 13:14 Blood Pressure Mean 74 03/26/22 13:14 Blood Pressure Position Supine 03/26/22 13:14 Oxygen Delivery Method 03/26/22 13:14 Vital Signs Temperature 96.6 F L 03/26/22 13:14 Pulse Rate 97 03/26/22 13:14 Respiratory Rate 32 H 03/26/22 13:14 Blood Pressure 92/66 03/26/22 13:14 Oxygen Delivery Method 03/26/22 13:14 Temperature 96.6 F L 03/26/22 13:14 Pulse Rate 92 03/26/22 14:11 Respiratory Rate 24 03/26/22 14:29 Blood Pressure 92/66 03/26/22 13:14 Pulse Oximetry 86 L 03/26/22 14:33 Oxygen Delivery Method 03/26/22 14:33 Oxygen Flow Rate 3 03/26/22 14:33 MDM - SOB/Dyspnea MDM Narrative Medical decision making narrative: This patient received a DuoNeb and an oral dose of dexamethasone. She has COPD and CHF. She states that these treatments brought significant relief to her symptoms. Her respiratory rate is in normal range but she continues to have chronic hypoxia with oximetry in the upper 80s%. She does have oxygen at home. Her chest x-ray shows no acute findings. She did have a sternotomy to attend to a large hole in her heart by her report. There is significant increased pulmonary vasculature related to this and shows up on x-ray. Comparing with previous x-rays were is no new findings. She is okay to return home. She received a prescription for Medrol Dosepak and some tablets of Lasix in case she retains fluid. Discharge Plan Discharge Clinical Impression: Congestive heart failure, Acute exacerbation of chronic obstructive pulmonary disease Patient Disposition: Home, Self-Care Condition: Stable Instructions: COPD (Chronic Obstructive Pulmonary Disease) (ED) Additional Instructions: Take medication as needed and indicated. Follow up with MD or return if worsening symptoms occur. Prescriptions: New furosemide 40 mg tablet 40 mg PO DAILY PRN (Reason: prn) Qty: 20 2RF methylprednisolone [Medrol (Rivera)] 4 mg tablets,dose pack See Rx Instructions .ROUTE .COMPLEX Qty: 21 0RF Rx Instructions: orally per package directions No Action albuterol sulfate [ProAir HFA] 90 mcg/actuation HFA aerosol inhaler 2 puff INHALATION QID PRN furosemide 20 mg tablet 20 mg PO DAILY ipratropium-albuterol 0.5 mg-3 mg(2.5 mg base)/3 mL solution for nebulization 3 ml INHALATION Q6H PRN pramipexole 0.125 mg tablet 0.125 mg PO DAILY sildenafil (pulm.hypertension) 20 mg tablet 20 mg PO DAILY Follow Up/Referrals: Provider,Not a Local [Primary Care Provider] - Stand Alone Forms: [facility] Info Instructions
== END 2022-03-26 15:45 | disposition home or self-care (01) ==
PROVIDERS: Emergency Provider Emergency Medicine Emergency Medical Services
DX: I50.9 Heart failure, unspecified (principal); J44.1 Chronic obstructive pulmonary disease with (acute) exacerbation
CPT/HCPCS: 71046; 94640; 99284; J1100

== ENCOUNTER 2022-06-25 13:44 | Emergency (ER) | payer MEDICAID, SELFPAY ==
[2022-06-25] VITALS (17 sets, daily range): BP systolic 100–125; BP diastolic 64–86; PULSE 83–111; RESP 28–32; TEMP 35.8; O2SAT 72–88
--- NOTE | 2022-06-25 13:56 | ED.NURSE ---
Pt presents to the ER c/o of SOB. O2 sats are ~72% on room air. Pt states she is normally in the 80's% O2 sats at home. Placed pt on 3L O2 NC. RT in room to assess pt.
--- NOTE | 2022-06-25 14:01 | ED_ITS ---
HPI - SOB/Dyspnea General Chief Complaint: Shortness of Breath/Dyspnea Stated Complaint: Needs a breathing treatment Time Seen by Provider: 06/25/22 13:54 History of Present Illness HPI Narrative: Pt hx of COPD. Presents with 72% on RA. States O2 normally in the 80's%. States she cannot breathe. 51-year-old woman presenting to the emergency department being short of breath. She says ?I just need a breathing treatment?. She says that her little machine at home and the little capsules she thinks is just albuterol just do not help like they do here. Symptoms began within the last 24 hours increasing short of breath. Normally does have oxygen at night with history COPD and cor pulmonale and CHF. She denies that her weight is. She notes how last time she was in her legs were swollen. She is also tends to hear congestion in her chest and so she is pretty certain that she is not in CHF exacerbation. She has not had any fever. No increased cough. No chest pain. Does take regular Lasix. Reports baseline oxygenation is mid to upper 80s. Does smoke cigarettes. She says that she has decreasing. She does not want any assistance with quitting. She thinks only a few cigarettes a day though a pack will last only a few days. I noted to be congested. She acknowledges allergies and takes antihistamines of some sort orally. Has never used a nasal spray. Exacerbated also as she has been crying. Related Data Home Medications Medication Instructions Recorded Confirmed albuterol sulfate 90 mcg/actuation 2 puff inhalation QID PRN 01/10/22 02/06/22 aerosol inhaler (ProAir HFA) furosemide 20 mg tablet 20 mg PO DAILY 01/10/22 02/06/22 ipratropium 0.5 mg-albuterol 3 mg 3 ml inhalation Q6H PRN 01/11/22 02/06/22 (2.5 mg base)/3 mL nebulization soln pramipexole 0.125 mg tablet 0.125 mg PO DAILY 01/11/22 02/06/22 sildenafil (pulm.hypertension) 20 20 mg PO DAILY 01/11/22 02/06/22 mg tablet Previous Rx's Medication Instructions Recorded furosemide 40 mg tablet 40 mg PO DAILY PRN prn #20 tabs 03/26/22 methylprednisolone 4 mg tablets in See Rx Instructions PO .COMPLEX 03/26/22 a dose pack (Medrol (Rivera)) #21 ea fluticasone propionate 50 2 spray intranasal DAILY #16 grams 06/25/22 mcg/actuation nasal spray,suspension (Flonase Allergy Relief) ipratropium 0.5 mg-albuterol 3 mg 3 ml inhalation QID #90 mL 06/25/22 (2.5 mg base)/3 mL nebulization soln prednisone 20 mg tablet See Rx Instructions .Route 06/25/22 .COMPLEX #20 tabs Allergies Allergy/AdvReac Type Severity Reaction Status Date / Time Sulfa (Sulfonamide Allergy Severe Verified 01/30/22 19:20 Antibiotics) Review of Systems Status of ROS: Reports: 6 or more systems reviewed and unremarkable except as noted in History and below [facility] Medical History Shortness of breath ?R06.02 - Shortness of breath (ICD-10) Constipation ?K59.00 - Constipation, unspecified (ICD-10) Hypomagnesemia ?E83.42 - Hypomagnesemia (ICD-10) Hemarthrosis ?M25.00 - Hemarthrosis, unspecified joint (ICD-10) Fracture of tibial plateau, closed ?S82.143A - Displaced bicondylar fracture of unspecified tibia, initial encounter for closed fracture (ICD-10) Fracture of ribs, multiple ?S22.49XA - Multiple fractures of ribs, unspecified side, initial encounter for closed fracture (ICD-10) Traumatic fracture of sternum ?S22.20XA - Unspecified fracture of sternum, initial encounter for closed fracture (ICD-10) Tobacco use ?Z72.0 - Tobacco use (ICD-10) Severe pulmonary hypertension ?I27.20 - Pulmonary hypertension, unspecified (ICD-10) CHF (congestive heart failure) ?I50.9 - Heart failure, unspecified (ICD-10) COPD (chronic obstructive pulmonary disease) ?J44.9 - Chronic obstructive pulmonary disease, unspecified (ICD-10) Social History Smoking Status: Current every day smoker What tobacco products do you use: cigarettes Do you use any of these nicotine containing products: None Second hand tobacco smoke exposure: No How often do you have a drink containing alcohol: never AUDIT-C Alcohol total score: 0 Non-prescribed substance use: denies use Exam Narrative: Exam Narrative: Pleasant. Sounds congested nasopharynx. Eyes are a little injected as if has been crying. Labored in breathing and mildly tachypneic. Nasal cannula in place when I see her initially. Light smell of cigarette smoke. Skin is generally dark she has numerous tattoos. Oropharynx is hyperemic. No facial swelling or erythema. Lower extremities without edema. Cranial nerves 2-12 intact. Heart is in an elevated rate with regular rhythm. Lungs with diminished breath sounds throughout. No wheeze actually. Heart an elevated rate but regular rhythm. Const: Vital Signs, click to edit/add: Vital Signs - 24 hr 06/25/22 13:53 06/25/22 13:55 06/25/22 13:56 Temperature 96.5 F L Pulse Rate 106 H 111 H Pulse Rate [Pulse Oximeter] 102 H Respiratory Rate 32 H Blood Pressure 119/86 Blood Pressure [Ri ght Upper Arm] 125/85 Pulse Oximetry 72 L 77 L 78 L Oxygen Delivery Me thod Room Air Nasal Cannula Nasal Cannula Oxygen Flow Rate 3 3 06/25/22 14:00 06/25/22 14:00 06/25/22 14:15 Temperature Pulse Rate 96 96 Pulse Rate [Pulse Oximeter] Respiratory Rate Blood Pressure Blood Pressure [Ri ght Upper Arm] Pulse Oximetry 82 L 75 L 84 L Oxygen Delivery Me thod Nasal Cannula Nasal Cannula Nasal Cannula Oxygen Flow Rate 3 3 3 06/25/22 14:30 06/25/22 14:38 06/25/22 14:39 Temperature Pulse Rate 92 103 H 102 H Pulse Rate [Pulse Oximeter] Respiratory Rate Blood Pressure 108/71 Blood Pressure [Ri ght Upper Arm] Pulse Oximetry 80 L 72 L 78 L Oxygen Delivery Me thod Nasal Cannula Nasal Cannula Nasal Cannula Oxygen Flow Rate 3 3 3 06/25/22 14:45 06/25/22 14:48 06/25/22 15:00 Temperature Pulse Rate 89 87 Pulse Rate [Pulse Oximeter] Respiratory Rate 28 H Blood Pressure Blood Pressure [Ri ght Upper Arm] Pulse Oximetry 81 L 75 L Oxygen Delivery Me thod Nasal Cannula Nasal Cannula Oxygen Flow Rate 3 3 06/25/22 15:01 06/25/22 15:02 06/25/22 15:15 Temperature Pulse Rate 85 85 91 Pulse Rate [Pulse Oximeter] Respiratory Rate Blood Pressure 106/64 Blood Pressure [Ri ght Upper Arm] Pulse Oximetry 74 L 74 L 86 L Oxygen Delivery Me thod Nasal Cannula Nasal Cannula Aerosol Mask Oxygen Flow Rate 3 3 8 06/25/22 15:30 06/25/22 15:31 06/25/22 15:45 Temperature Pulse Rate 83 89 85 Pulse Rate [Pulse Oximeter] Respiratory Rate Blood Pressure 100/72 Blood Pressure [Ri ght Upper Arm] Pulse Oximetry 86 L 88 77 L Oxygen Delivery Me thod Aerosol Mask Aerosol Mask Nasal Cannula Oxygen Flow Rate 8 8 3 Documenting provider has reviewed patient's vital signs: yes Course Vital Signs Vital signs: Initial Vital Signs Temperature 96.5 F L 06/25/22 13:53 Temperature Source Temporal Artery Scan 06/25/22 13:53 Pulse Rate 102 H 06/25/22 13:53 Respiratory Rate 32 H 06/25/22 13:53 Blood Pressure 125/85 06/25/22 13:53 Blood Pressure Mean 98 06/25/22 13:53 Blood Pressure Position Sitting 06/25/22 13:53 Pulse Oximetry 72 L 06/25/22 13:53 Oxygen Delivery Method Room Air 06/25/22 13:53 Vital Signs Temperature 96.5 F L 06/25/22 13:53 Pulse Rate 102 H 06/25/22 13:53 Respiratory Rate 32 H 06/25/22 13:53 Blood Pressure 125/85 06/25/22 13:53 Pulse Oximetry 72 L 06/25/22 13:53 Oxygen Delivery Method Room Air 06/25/22 13:53 Temperature 96.5 F L 06/25/22 13:53 Pulse Rate 85 06/25/22 15:45 Respiratory Rate 28 H 06/25/22 14:48 Blood Pressure 100/72 06/25/22 15:31 Pulse Oximetry 77 L 06/25/22 15:45 Oxygen Delivery Method Nasal Cannula 06/25/22 15:45 Oxygen Flow Rate 3 06/25/22 15:45 MDM - SOB/Dyspnea MDM Narrative Medical decision making narrative: This does appear to be a COPD exacerbation and less CHF. She would like a nebulizing treatment. DuoNeb has been given and shows minor improvement in her oxygenation into low 80s. Says she feels better. She says usually gets 2 nebs. Also order some steroids form of dexamethasone. Certainly is possible is a pneumonia here but abrupt onset I think is more of a COPD exacerbation and without evidence at this time of CHF exacerbation. Respiratory therapy has been involved in initial treatments. I have already proposed hospitalization to Allison and she is clear that she will not do that and intends to return home. She becomes tearful discussing her health history. Following time of observation and repeat neb with albuterol around an hour after the 1st, Oxygen saturations remain in the low 80s on low-flow nasal cannula. Overall feels improved and is still clear that she wants to go home. Is observed to ambulate without oxygen to the restroom without any difficulty. Oxygenating in the low 70s. I am concerned regarding this turned around. She does seem more relaxed and comfortable. Given that she was adamant not to be admitted and limiting treatment did not do lab workup including blood gases and similar. In addition to prednisone and DuoNebs sent to pharmacy, will also prescribe nasal steroid as does need to take oxygen via nasal cannula. She describes a history of allergic rhinitis. Has never tried nasal steroid spray. Allison will be signing out AMA. She says that she has oxygen at home if needed and can return here as needed. See patient discharge plan. Medical Records Attestation: I reviewed the patient's medical records. Discharge Plan Discharge Clinical Impression: Respiratory failure, COPD exacerbation, Allergic rhinitis Patient Disposition: Left Against Medical Advice Condition: Unchanged Additional Instructions: Please follow-up with your primary care this next week. Use the DuoNebs containing ipratropium bromide and albuterol in 4 times daily over the next 3 days. Then can probably back off to twice daily to complete a week. Nasal steroid spray also sent as might help your breathing through nasal cannula. Return if worsening. Prescriptions: New ipratropium-albuterol 0.5 mg-3 mg(2.5 mg base)/3 mL solution for nebulization 3 ml inhalation QID Qty: 90 0RF prednisone 20 mg tablet See Rx Instructions .ROUTE .COMPLEX Qty: 20 0RF Rx Instructions: 60 mg daily for 3 days then 40 mg daily for 4 days then 20 mg daily for 3 days fluticasone propionate [Flonase Allergy Relief] 50 mcg/actuation spray,suspension 2 spray intranasal DAILY Qty: 16 1RF Rx Instructions: administer into each nostril No Action albuterol sulfate [ProAir HFA] 90 mcg/actuation HFA aerosol inhaler 2 puff INHALATION QID PRN furosemide 20 mg tablet 20 mg PO DAILY ipratropium-albuterol 0.5 mg-3 mg(2.5 mg base)/3 mL solution for nebulization 3 ml INHALATION Q6H PRN pramipexole 0.125 mg tablet 0.125 mg PO DAILY sildenafil (pulm.hypertension) 20 mg tablet 20 mg PO DAILY furosemide 40 mg tablet 40 mg PO DAILY PRN (Reason: prn) Qty: 20 2RF methylprednisolone [Medrol (Rivera)] 4 mg tablets,dose pack See Rx Instructions .ROUTE .COMPLEX Qty: 21 0RF Rx Instructions: orally per package directions Follow Up/Referrals: Provider,Not a Local [Primary Care Provider] - Stand Alone Forms: [facility] Info Instructions
[2022-06-25] MEDS: IPRAT-ALBUT 0.5-2.5 MG/3 ML NEB 1 NEB IH (14:02)
--- NOTE | 2022-06-25 14:38 | ED.NURSE ---
Pt ambulatory independently to the restroom.
[2022-06-25] MEDS: dexAMETHasone 2 MG TABLET 10 MG PO (14:42)
--- NOTE | 2022-06-25 15:01 | ED.NURSE ---
Pt O2 sats noted to be around ~75% on 3L O2 NC. Pt states she does not feel SOB at this time, states she more or less feels back to her normal.
[2022-06-25] MEDS: ALBUTEROL SULFATE 1.25 MG/3 ML VIAL.NEB 2.5 MG NEB (15:11)
--- NOTE | 2022-06-25 15:11 | ED.NURSE ---
MD updated about pt lower trending O2 sats. Pt continues to deny any SOB with O2 sats ~74%. 2nd neb treatment started.
--- NOTE | 2022-06-25 15:58 | ED.NURSE ---
Pt intending to leave AMA despite MD recommendation. Pt did sign AMA form.
--- NOTE | 2022-06-25 15:58 | RESP.RT ---
Patient has 3L NC home O2 and has stated that she takes nebs and inhalers at home. Patient currently has SATs of 76% on 3L NC. I recommended that she stay and be put on HFNC, but she wants to go home and does not want further interventions. We did a DuoNeb and her SATs did not improve. I spoke to her several times and she simply wants to go home.
== END 2022-06-25 16:08 | disposition left against medical advice (07) ==
PROVIDERS: Emergency Provider Family Medicine
DX: J96.90 Respiratory failure, unspecified, unspecified whether with hypoxia or hypercapnia (principal); J44.1 Chronic obstructive pulmonary disease with (acute) exacerbation; J30.9 Allergic rhinitis, unspecified
CPT/HCPCS: 94640; 99284; A9270

== ENCOUNTER 2022-11-14 09:51 | Emergency (ER) | payer MEDICAID, SELFPAY ==
[2022-11-14 10:05] VITALS: BP 94/67; PULSE 102; RESP 20; TEMP 36.2; O2SAT 80; BMI 19.7
--- NOTE | 2022-11-14 10:24 | ED_ITS ---
HPI - General Adult General Time Seen by Provider: 10:25 Date Seen: 11/14/22 Chief complaint: Shortness of Breath/Dyspnea Stated complaint: difficulty breathing Time Seen by Provider: 11/14/22 10:10 History of Present Illness HPI narrative: This is a 52-year-old female with a past medical history including congenital heart disease, pulmonary hypertension, CHF (she follows at [facility]. She isn't managing these with a blood pressure medicine and diuretic, Lasix) and has been doing well lately. She also has a history of tobacco use and COPD. She is on home oxygen p.r.n. but is working with a home nurse to get oxygen continuously. She normally has a home nebulizer, which she uses as needed. Her family have been sick lately with a, ?cold. She thinks she probably caught her daughter's school. She has been sick with symptoms of cough and nasal congestion and headache for 2 days, over the weekend. She with this illness, as typically happens she noted more shortness of breath and tightness in her lungs. She has been using her neb machine a few times a day, as she typically does. This morning she was trying to use her nebulizer machine but it broke. She comes to the ER this morning requesting a neb and also a prescription for a new nebulizer machine. She does not have a fever. No chest pain. No hemoptysis. No peripheral edema or swelling in her legs. She does not feel achy or fatigue like she typically does when she has pneumonia. She does not think she is having a flare of CHF. She just wants treatments with nebs and steroids for her COPD. She took an at-home COVID test kit and it was negative. Related Data Home Medications Medication Instructions Recorded Confirmed albuterol sulfate 90 mcg/actuation 2 puff inhalation QID PRN 01/10/22 02/06/22 aerosol inhaler (ProAir HFA) furosemide 20 mg tablet 20 mg PO DAILY 01/10/22 02/06/22 ipratropium 0.5 mg-albuterol 3 mg 3 ml inhalation Q6H PRN 01/11/22 02/06/22 (2.5 mg base)/3 mL nebulization soln pramipexole 0.125 mg tablet 0.125 mg PO DAILY 01/11/22 02/06/22 sildenafil (pulm.hypertension) 20 20 mg PO DAILY 01/11/22 02/06/22 mg tablet Previous Rx's Medication Instructions Recorded furosemide 40 mg tablet 40 mg PO DAILY PRN prn #20 tabs 03/26/22 methylprednisolone 4 mg tablets in See Rx Instructions PO .COMPLEX 03/26/22 a dose pack (Medrol (Rivera)) #21 ea fluticasone propionate 50 2 spray intranasal DAILY #16 grams 06/25/22 mcg/actuation nasal spray,suspension (Flonase Allergy Relief) ipratropium 0.5 mg-albuterol 3 mg 3 ml inhalation QID #90 mL 06/25/22 (2.5 mg base)/3 mL nebulization soln prednisone 20 mg tablet See Rx Instructions .Route 06/25/22 .COMPLEX #20 tabs ipratropium 0.5 mg-albuterol 3 mg 3 ml inhalation Q4H PRN #90 mL 11/14/22 (2.5 mg base)/3 mL nebulization soln nebulizer accessories #1 ea 11/14/22 prednisone 20 mg tablet 40 mg (2 x 20 mg) PO DAILY 5 days 11/14/22 #10 tabs Allergies Allergy/AdvReac Type Severity Reaction Status Date / Time Sulfa (Sulfonamide Allergy Severe Verified 01/30/22 19:20 Antibiotics) [facility] Medical History Shortness of breath ?R06.02 - Shortness of breath (ICD-10) Constipation ?K59.00 - Constipation, unspecified (ICD-10) Hypomagnesemia ?E83.42 - Hypomagnesemia (ICD-10) Hemarthrosis ?M25.00 - Hemarthrosis, unspecified joint (ICD-10) Fracture of tibial plateau, closed ?S82.143A - Displaced bicondylar fracture of unspecified tibia, initial encounter for closed fracture (ICD-10) Fracture of ribs, multiple ?S22.49XA - Multiple fractures of ribs, unspecified side, initial encounter for closed fracture (ICD-10) Traumatic fracture of sternum ?S22.20XA - Unspecified fracture of sternum, initial encounter for closed fracture (ICD-10) Tobacco use ?Z72.0 - Tobacco use (ICD-10) Severe pulmonary hypertension ?I27.20 - Pulmonary hypertension, unspecified (ICD-10) CHF (congestive heart failure) ?I50.9 - Heart failure, unspecified (ICD-10) COPD (chronic obstructive pulmonary disease) ?J44.9 - Chronic obstructive pulmonary disease, unspecified (ICD-10) Social History Smoking Status: Current every day smoker What tobacco products do you use: cigarettes Do you use any of these nicotine containing products: None Second hand tobacco smoke exposure: No How often do you have a drink containing alcohol: never AUDIT-C Alcohol total score: 0 Non-prescribed substance use: denies use Exam Narrative: Exam Narrative: Constitutional: Appears well-developed and well-nourished. Alert. Conversant. Non toxic. HENT: Head: Atraumatic. Nose: Nose normal. Mouth/Throat: Oral mucosa is clear and moist. no trismus. Pharynx normal. Tonsils symmetric. No tonsillar enlargement, erythema, or exudate. Eyes: Conjunctivae normal. EOM normal. Pupils equal, round, and reactive to light. No scleral icterus. Neck: Normal range of motion. Neck supple. No tracheal deviation present. No JVP Cardiovascular: Normal rate, regular rhythm. No gallop. No friction rub. No murmur heard. Symmetric radial artery pulses Pulmonary/Chest: Effort normal. Speaking full sentences No stridor. No respiratory distress. Fairly diffuse tight wheezes. No focal rales or rhonchi . No tenderness. Abdominal: Soft. Bowel sounds normal. No distension. No mass. No tenderness. No rebound. No guarding. Musculoskeletal: RUE: Normal range of motion. No tenderness. No deformity LUE: Normal range of motion. No tenderness. No deformity RLE: Normal range of motion. No edema. No tenderness. No deformity LLE: Normal range of motion. No edema. No tenderness. No deformity Lymph: No cervical adenopathy. Neurological: Alert and oriented to person, place, and time. Normal strength. CN II-VII intact. No sensory deficit. GCS eye subscore is 4. GCS verbal subscore is 5. GCS motor subscore is 6. Normal coordination Skin: Skin is warm and dry. No rash noted. No pallor. Normal capillary refill. Psychiatric: Normal mood. Normal affect. Const: Vital Signs, click to edit/add: Vital Signs - 24 hr 11/14/22 10:05 Temperature 97.1 F L Pulse Rate [Right Pulse Oximeter] 102 H Respiratory Rate 20 Blood Pressure [Ri ght Upper Arm] 94/67 Pulse Oximetry 80 L Oxygen Delivery Me thod Room Air Course Course ED Course: Recheck-after DuoNeb doing better. She feels well a that she wants to get home. Vital Signs Vital signs: Initial Vital Signs Temperature 97.1 F L 11/14/22 10:05 Temperature Source Temporal Artery Scan 11/14/22 10:05 Pulse Rate 102 H 11/14/22 10:05 Respiratory Rate 20 11/14/22 10:05 Blood Pressure 94/67 11/14/22 10:05 Blood Pressure Mean 76 11/14/22 10:05 Blood Pressure Position Sitting 11/14/22 10:05 Pulse Oximetry 80 L 11/14/22 10:05 Oxygen Delivery Method Room Air 11/14/22 10:05 Vital Signs Temperature 97.1 F L 11/14/22 10:05 Pulse Rate 102 H 11/14/22 10:05 Respiratory Rate 20 11/14/22 10:05 Blood Pressure 94/67 11/14/22 10:05 Pulse Oximetry 80 L 11/14/22 10:05 Oxygen Delivery Method Room Air 11/14/22 10:05 Temperature 97.1 F L 11/14/22 10:05 Pulse Rate 102 H 11/14/22 10:05 Respiratory Rate 20 11/14/22 10:05 Blood Pressure 94/67 11/14/22 10:05 Pulse Oximetry 80 L 11/14/22 10:05 Oxygen Delivery Method Room Air 11/14/22 10:05 Medical Decision Making MDM Narrative Medical decision making narrative: This patient presents for evaluation of shortness of breath and wheezing. Signs and symptoms are consistent with asthma exacerbation. A broad differential was considered including asthma, pneumonia, bronchitis, pneumothorax, viral induced wheezing, allergic phenomena, among others. She did have exposure to a presumed viral URI from her family who have recently been sick. She are did at home COVID test and it was negative. We discussed the sensitivity of at home COVID testing. She was offered a PCR based test here in the ER but we decided to hold off for now. We considered possible chest x-ray but she does not feel like she has pneumonia. She did not have any focal lung findings to suggest pneumonia so will hold off on that. She does have a complex heart history. However she is not having any peripheral edema or clear rales on her exam to suggest pulmonary edema so will hold off on EKG, cardiac labs, x-ray for now. There are no signs at this point of any serious etiologies including those mentioned above. The patient feels and sounds improved after interventions here in ED. No indication for hospitalization at this time including no hypoxia, no marked increase in respiratory rate, and there are minimal to no retractions. Supportive outpatient management is indicated, medications for discharge noted above. I did give her a prescription to refill for her DuoNebs and for a new nebulizer machine because her previous at home neb machine broke/malfunction to this morning. Will also put her on a 5 day burst of prednisone 40 mg per day. Close followup with primary care physician. Return if increased wheezing, progressive shortness of breath, peripheral edema, chest pain, fever greater than 102. Questions answered and patient comfortable with plan. Discharge Plan Discharge Clinical Impression: Acute exacerbation of chronic obstructive pulmonary disease Patient Disposition: Home, Self-Care Condition: Stable Instructions: COPD (Chronic Obstructive Pulmonary Disease) (DC) Additional Instructions: As we discussed, please come back to the ER right away if you have worsening trouble breathing, fever, body aches or severe headache, dizziness, swelling in her legs, or any concerns. Use your nebulizer every 6 hours as needed. Prescriptions: New (DME) nebulizer accessories Kit See Rx Instructions .Route Qty: 1 0RF Rx Instructions: As directed prednisone 20 mg tablet 40 mg PO DAILY 5 Days Qty: 10 0RF ipratropium-albuterol 0.5 mg-3 mg(2.5 mg base)/3 mL solution for nebulization 3 ml inhalation Q4H PRNQty: 90 0RF Rx Instructions: until breathing returns to target peak flow/parameters No Action albuterol sulfate [ProAir HFA] 90 mcg/actuation HFA aerosol inhaler 2 puff INHALATION QID PRN furosemide 20 mg tablet 20 mg PO DAILY ipratropium-albuterol 0.5 mg-3 mg(2.5 mg base)/3 mL solution for nebulization 3 ml INHALATION Q6H PRN pramipexole 0.125 mg tablet 0.125 mg PO DAILY sildenafil (pulm.hypertension) 20 mg tablet 20 mg PO DAILY furosemide 40 mg tablet 40 mg PO DAILY PRN (Reason: prn) Qty: 20 2RF methylprednisolone [Medrol (Rivera)] 4 mg tablets,dose pack See Rx Instructions .ROUTE .COMPLEX Qty: 21 0RF Rx Instructions: orally per package directions ipratropium-albuterol 0.5 mg-3 mg(2.5 mg base)/3 mL solution for nebulization 3 ml inhalation QID Qty: 90 0RF prednisone 20 mg tablet See Rx Instructions .ROUTE .COMPLEX Qty: 20 0RF Rx Instructions: 60 mg daily for 3 days then 40 mg daily for 4 days then 20 mg daily for 3 days fluticasone propionate [Flonase Allergy Relief] 50 mcg/actuation spray,suspension 2 spray intranasal DAILY Qty: 16 1RF Rx Instructions: administer into each nostril Follow Up/Referrals: Provider,Not a Local [Primary Care Provider] - Stand Alone Forms: [employer] Info Instructions
[2022-11-14] MEDS: predniSONE 20 MG TABLET 40 MG PO (10:42)
[2022-11-14] MEDS: IPRAT-ALBUT 0.5-2.5 MG/3 ML NEB 1 NEB IH (10:42)
[2022-11-14] MEDS: IBUPROFEN 200 MG TABLET 600 MG PO (10:53)
== END 2022-11-14 13:12 | disposition home or self-care (01) ==
PROVIDERS: Emergency Provider Emergency Medicine
DX: J44.1 Chronic obstructive pulmonary disease with (acute) exacerbation (principal)
CPT/HCPCS: 94640; 99283; 99284; A9270; J7512

== ENCOUNTER 2022-11-16 10:41 | Emergency (ER) | payer MEDICAID, SELFPAY ==
[2022-11-16 11:02] VITALS: BP 99/67; PULSE 98; RESP 22; TEMP 35.7; O2SAT 84; BMI 19.7
[2022-11-16 11:09] VITALS: PULSE 93; O2SAT 83
[2022-11-16 11:15] VITALS: PULSE 97; O2SAT 85
--- NOTE | 2022-11-16 11:20 | ED.SOB ---
HPI - SOB/Dyspnea General Chief Complaint: Shortness of Breath/Dyspnea Stated Complaint: breathing issues Time Seen by Provider: 11/16/22 11:07 History of Present Illness HPI Narrative: This 52-year-old female comes in with shortness of breath that is not new for her. She has COPD and CHF. She was seen a couple days ago and received a prescription for a new nebulizer machine. She has been unable to fill this prescription as the pharmacy is working on acquiring a new machine for her. She is taking a steroid but has not had any benefit from nebulizer treatments. She is on oxygen 4 L at home 24 hours a day. She does arrive with O2 sats at 84% on room air but benefits when receiving oxygen. She did have a workup a couple days ago. She does have a cough but there was no evidence of pneumonia. The patient states that she is here simply to get a DuoNeb treatment. Related Data Home Medications Medication Instructions Recorded Confirmed albuterol sulfate 90 mcg/actuation 2 puff inhalation QID PRN 01/10/22 02/06/22 aerosol inhaler (ProAir HFA) furosemide 20 mg tablet 20 mg PO DAILY 01/10/22 02/06/22 ipratropium 0.5 mg-albuterol 3 mg 3 ml inhalation Q6H PRN 01/11/22 02/06/22 (2.5 mg base)/3 mL nebulization soln pramipexole 0.125 mg tablet 0.125 mg PO DAILY 01/11/22 02/06/22 sildenafil (pulm.hypertension) 20 20 mg PO DAILY 01/11/22 02/06/22 mg tablet Previous Rx's Medication Instructions Recorded furosemide 40 mg tablet 40 mg PO DAILY PRN prn #20 tabs 03/26/22 methylprednisolone 4 mg tablets in See Rx Instructions PO .COMPLEX 03/26/22 a dose pack (Medrol (Rivera)) #21 ea fluticasone propionate 50 2 spray intranasal DAILY #16 grams 06/25/22 mcg/actuation nasal spray,suspension (Flonase Allergy Relief) ipratropium 0.5 mg-albuterol 3 mg 3 ml inhalation QID #90 mL 06/25/22 (2.5 mg base)/3 mL nebulization soln prednisone 20 mg tablet See Rx Instructions .Route 06/25/22 .COMPLEX #20 tabs ipratropium 0.5 mg-albuterol 3 mg 3 ml inhalation Q4H PRN #90 mL 11/14/22 (2.5 mg base)/3 mL nebulization soln nebulizer accessories #1 ea 11/14/22 prednisone 20 mg tablet 40 mg (2 x 20 mg) PO DAILY 5 days 11/14/22 #10 tabs Allergies Allergy/AdvReac Type Severity Reaction Status Date / Time Sulfa (Sulfonamide Allergy Severe Verified 11/16/22 11:02 Antibiotics) Review of Systems Status of ROS: Reports: 10 or more systems reviewed and unremarkable except as noted in History and below Narrative: Constitutional: No fevers, no weight gain or loss. Eyes: No discharge. No vision changes. HENT: No congestion, no sore throat, no ear pain. Cardiovascular: No chest pain, no palpitations. Respiratory: COPD with chronic shortness of breath on oxygen. She has a cough. Gastrointestinal: No abdominal pain, no vomiting, no diarrhea. Genitourinary: No dysuria, no hematuria. Musculoskeletal: Normal range of motion. Skin: No rashes, no pruritis. Neurological: No dizziness, weakness, sensory change, speech change. Endo/Heme/Allergies: No bruising or bleeding. No polydipsia. Pysch: no suicidality, no anxiety, no insomnia. All other systems reviewed and are negative. [facility] Medical History Shortness of breath ?R06.02 - Shortness of breath (ICD-10) Constipation ?K59.00 - Constipation, unspecified (ICD-10) Hypomagnesemia ?E83.42 - Hypomagnesemia (ICD-10) Hemarthrosis ?M25.00 - Hemarthrosis, unspecified joint (ICD-10) Fracture of tibial plateau, closed ?S82.143A - Displaced bicondylar fracture of unspecified tibia, initial encounter for closed fracture (ICD-10) Fracture of ribs, multiple ?S22.49XA - Multiple fractures of ribs, unspecified side, initial encounter for closed fracture (ICD-10) Traumatic fracture of sternum ?S22.20XA - Unspecified fracture of sternum, initial encounter for closed fracture (ICD-10) Tobacco use ?Z72.0 - Tobacco use (ICD-10) Severe pulmonary hypertension ?I27.20 - Pulmonary hypertension, unspecified (ICD-10) CHF (congestive heart failure) ?I50.9 - Heart failure, unspecified (ICD-10) COPD (chronic obstructive pulmonary disease) ?J44.9 - Chronic obstructive pulmonary disease, unspecified (ICD-10) Social History Smoking Status: Current every day smoker What tobacco products do you use: cigarettes Do you use any of these nicotine containing products: None Second hand tobacco smoke exposure: No How often do you have a drink containing alcohol: never AUDIT-C Alcohol total score: 0 Non-prescribed substance use: denies use Exam Narrative: Exam Narrative: Constitutional: Well-developed, well-nourished, no acute distress. HEENT: Normocephalic, atraumatic. Neck: Normal range of motion. Nontender. Supple. Heart: Regular. No murmurs. Normal rate. Intact distal pulses. Lungs: Decreased air movement. No chest discomfort. No wheezes, rhonchi, or rales. Abdomen: Normal bowel sounds. Nontender. No rebound tenderness. Genitalia: Deferred. Back: No midline tenderness. Normal range of motion. Extremities: Normal range of motion. No injury. Skin: Intact. No rash. Warm. No erythema or pallor. Neurologic: No altered sensation. No weakness. Alert and oriented. Psychiatric: No suicidality. No anxiety or depression. No insomnia. Nursing notes and vitals signs are reviewed. Const: Vital Signs, click to edit/add: Vital Signs - 24 hr 11/16/22 11:02 11/16/22 11:09 11/16/22 11:15 Temperature 96.3 F L Pulse Rate 93 97 Pulse Rate [Pulse Oximeter] 98 Respiratory Rate 22 Blood Pressure [Ri ght Upper Arm] 99/67 Pulse Oximetry 84 L 83 L 85 L Oxygen Delivery Me thod Room Air Nasal Cannula Nasal Cannula Oxygen Flow Rate 4 4 11/16/22 11:30 11/16/22 11:31 Temperature Pulse Rate 93 Pulse Rate [Pulse Oximeter] Respiratory Rate Blood Pressure [Ri ght Upper Arm] Pulse Oximetry 87 L 85 L Oxygen Delivery Me thod Nasal Cannula Oxygen Flow Rate 4 Course Vital Signs Vital signs: Initial Vital Signs Temperature 96.3 F L 11/16/22 11:02 Temperature Source Temporal Artery Scan 11/16/22 11:02 Pulse Rate 98 11/16/22 11:02 Respiratory Rate 22 11/16/22 11:02 Blood Pressure 99/67 11/16/22 11:02 Blood Pressure Mean 77 11/16/22 11:02 Blood Pressure Position Sitting 11/16/22 11:02 Pulse Oximetry 84 L 11/16/22 11:02 Oxygen Delivery Method Room Air 11/16/22 11:02 Vital Signs Temperature 96.3 F L 11/16/22 11:02 Pulse Rate 98 11/16/22 11:02 Respiratory Rate 22 11/16/22 11:02 Blood Pressure 99/67 11/16/22 11:02 Pulse Oximetry 84 L 11/16/22 11:02 Oxygen Delivery Method Room Air 11/16/22 11:02 Temperature 96.3 F L 11/16/22 11:02 Pulse Rate 93 11/16/22 11:30 Respiratory Rate 22 11/16/22 11:02 Blood Pressure 99/67 11/16/22 11:02 Pulse Oximetry 85 L 11/16/22 11:31 Oxygen Delivery Method Nasal Cannula 11/16/22 11:31 Oxygen Flow Rate 4 11/16/22 11:31 MDM - SOB/Dyspnea MDM Narrative Medical decision making narrative: This patient has chronic hypoxia due to COPD. She is on home oxygen at 4 L and comes in today requesting a DuoNeb treatment as she is still waiting for the pharmacy to provide a new nebulizer machine for her. She was seen a couple days ago where she received a prescription for this. At that time she had an appropriate workup which did not show any new findings. The patient declined any further studies today and is simply requesting a DuoNeb treatment. She is currently taking a Medrol Dosepak. She did receive a DuoNeb and states that she is feeling better. She is not using accessory muscles for breathing and does not appear to be in any respiratory distress however her oximetry on 4 L is in the mid upper 80s%. The patient states that she wants to return home and knows how to return here if not improving or worsening symptoms happen. Discharge Plan Discharge Prescriptions: No Action albuterol sulfate [ProAir HFA] 90 mcg/actuation HFA aerosol inhaler 2 puff INHALATION QID PRN furosemide 20 mg tablet 20 mg PO DAILY ipratropium-albuterol 0.5 mg-3 mg(2.5 mg base)/3 mL solution for nebulization 3 ml INHALATION Q6H PRN pramipexole 0.125 mg tablet 0.125 mg PO DAILY sildenafil (pulm.hypertension) 20 mg tablet 20 mg PO DAILY furosemide 40 mg tablet 40 mg PO DAILY PRN (Reason: prn) Qty: 20 2RF methylprednisolone [Medrol (Rivera)] 4 mg tablets,dose pack See Rx Instructions .ROUTE .COMPLEX Qty: 21 0RF Rx Instructions: orally per package directions (DME) nebulizer accessories Kit See Rx Instructions .Route Qty: 1 0RF Rx Instructions: As directed prednisone 20 mg tablet 40 mg PO DAILY 5 Days Qty: 10 0RF ipratropium-albuterol 0.5 mg-3 mg(2.5 mg base)/3 mL solution for nebulization 3 ml inhalation Q4H PRNQty: 90 0RF Rx Instructions: until breathing returns to target peak flow/parameters ipratropium-albuterol 0.5 mg-3 mg(2.5 mg base)/3 mL solution for nebulization 3 ml inhalation QID Qty: 90 0RF prednisone 20 mg tablet See Rx Instructions .ROUTE .COMPLEX Qty: 20 0RF Rx Instructions: 60 mg daily for 3 days then 40 mg daily for 4 days then 20 mg daily for 3 days fluticasone propionate [Flonase Allergy Relief] 50 mcg/actuation spray,suspension 2 spray intranasal DAILY Qty: 16 1RF Rx Instructions: administer into each nostril Follow Up/Referrals: Provider,Not a Local [Primary Care Provider] -
[2022-11-16] MEDS: IPRAT-ALBUT 0.5-2.5 MG/3 ML NEB 1 NEB IH (11:26)
[2022-11-16] MEDS: IBUPROFEN 200 MG TABLET 600 MG PO (11:26)
[2022-11-16 11:30] VITALS: PULSE 93; O2SAT 87
[2022-11-16 11:31] VITALS: O2SAT 85
--- NOTE | 2022-11-16 11:50 | ED.NURSE ---
repeat respiratory assessment post neb. SPO2 improved to 87%, still expiratory wheezes in the lower left lobe, pt states I feel so much better
== END 2022-11-16 12:30 | disposition home or self-care (01) ==
PROVIDERS: Emergency Provider Emergency Medicine Emergency Medical Services
DX: J44.1 Chronic obstructive pulmonary disease with (acute) exacerbation (principal); R09.02 Hypoxemia
CPT/HCPCS: 94640; 99284; A9270

== ENCOUNTER 2023-09-28 02:19 | Emergency (ER) | payer MEDICAID, SELFPAY ==
[2023-09-28 02:33] VITALS: BP 119/82; PULSE 110; RESP 18; TEMP 36.6; O2SAT 73; BMI 19.7
[2023-09-28 02:40] VITALS: PULSE 100; RESP 18; O2SAT 83
[2023-09-28] MEDS: TRAMADOL HCL 50 MG TABLET PO (02:59)
[2023-09-28] MEDS: AMOXICILLIN/CLAVULANATE 875 mg/125 mg TABLET PO (02:59)
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
--- OUTSIDE RECORDS SUMMARY | 2023-09-28 03:00 | XMS_ITS | Encounter Summary ---
Author Organization [facility] Address [address] [place] [address] Care Team Providers Care Salad Chef Name Role Phone Ro Norton APRN, C.N.P., D.N.P. Primary Ca re Provider Reason for Visit * Reason Onset Date Comments Rx Prior Authorization 09/11/2023 ensure Rx Denial 09/11/2023 ENSURE Encounter Details Date Type Department Care Team (Latest Contact Info) Description 09/11/2023 Clinical Communication Department of Family Medicine, [facility], in [address] [phone] Ro Norton APRN, C.N.P., D.N.P. [address] [place] [phone] Rx Prior Authorization (ensure); Rx Denial (ENSURE ) Social History Tobacco Use Types Packs/Day Years Used Date Smoking Tobacco: Every Day Cigarettes 0.5 30 Smokeless Tobacco: Never Comments:4-5 cigarettes a da y Alcohol Use Standard Drinks/Week Comments Not Currently 0 (1 standard drink = 0.6 oz pur e alcohol) ocassionally [facility] Utilities Answer Date Recorded In the past 12 months has e electric, gas, oil, or water company threatened to shut off services in your [...] week 03/25/2022 How often do you attend [facility] or hinduism services? Never 03/25/2022 Do you belong to any clubs o r organizations such as jain groups, unions, fraternal [...] Answer Date Recorded PHQ-2 Score 2 07/31/2023 [facility] Health - Occupational Stress Questionnaire Answer [...] Answer Date Recorded Employment status Permanently disabled 4 Housing Stability Answer Date Recorded What is your living situation today? I have a [facility] place to live 06/06/2023 Education Answer Date Recorded What is the highest level of school you have completed or the highest degree you have received? 12th grade 11/13/2019 Sex and Gender Information Value Date Recorded Sex Assigned at Female 10/14/2020 12:54 PM CDT Gender Identity Female 09/11/2019 2:43 PM CDT Sexual Orientation Straight 09/11/2019 2: 43 PM CDT documented as of this encounter Miscellaneous Notes * Telephone Encounter - Ro Nortno APRN, C.N.P., D.N.P. - 09/14/2023 10:39 AM CDT It looks like she needs to a try an alternative, did they list the alternative anywhere? I can't seem to find it but that would be next step * Telephone Encounter - Kala Smith I. - 09/13/2023 3:18 PM CDT Images from the original note were not included. The patient's health insurer has denied prior authorization for ENSURE. A screen shot of the denial reason is at the bottom of this communication message. To view the complete denial letter, scroll down to the green Guidance section below and click on the appropriate medication in the Current Prescription Prior Authorizations display. As the prescriber, your options are: Appeal the decision to the insurer directly (see denial letter for how to appeal). Write a new Rx for an alternative medication therapy. Release the Rx to the pharmacy so the patient has the option to pay out of pocket. To Release Rx: Open this encounter, go to Blue Badge Style, and click on the medication. If the blue ???Release Rx?? button appears as an option, click to release the prescription. If the blue Release Rx button is not visible, the Rx has already been released to the pharmacy. If you have questions, please reply to Taylor AGUDELO. Thank you, The OPPA Team documented in this encounter Plan of Treatment Upcoming Encounters Date Type Department Care Team (Latest Contact Info) Description 10/13/2023 10:30 AM CDT Comprehensive Visit Department of Family Medicine, [facility], in [address] [phone] Ro Norton APRN, C.N.P., D.N.P. [address] [place] [phone] Discharge Disposition: Home or Self Care 11/08/2023 11:30 AM CDT Clinical Communication Virtual Review in [address] [phone] 11/15/2023 9:40 AM CDT Appointment Department of Laboratory Medicine and Pathology, [facility], in [place], [place] [address] [place] [phone] Lubna Mcmillan M.D. [address] [place] [phone] 11/15/2023 10:10 AM CDT Appointment Department of Cardiovascular Diseases in [place], [place] [address] [place] [phone] Lubna Mcmillan M.D. [address] [place] [phone] Discharge Disposition: Home or Self Care 11/15/2023 1:00 PM CDT Appointment Department of Cardiac Rehabilitation in [place], [place] [address] [place] [phone] Lubna Mcmillan M.D. [address] [place] [phone] 11/15/2023 3:00 PM CDT Office Visit Department of Cardiovascular Medicine in [place], [place] [address] [place] [phone] Lubna Mcmillan M.D. [address] [place] [phone] documented as of this encounter Visit Diagnoses Not on filedocumented in this encounter Care Teams Salad Chef Relationship Specialty Start Date End Date Ro Norton APRN, C.N.P., D.N.P. [address] [place] [phone] PCP - General Family Medicine 05/07/19 documented as of this encounter
--- OUTSIDE RECORDS SUMMARY | 2023-09-28 03:00 | XMS_ITS | Encounter Summary ---
Author Organization [facility] Address [address] [place] [address] Care Team Providers Care Training Systems Officer Name Role Phone Ro Norton APRN, C.N.P., D.N.P. 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 [address] [place] [address] [facility] Referral ID Status Reason Start Date Expiration Date V isits Requested Visits Authorized [id number] Authorized 06/14/2023 12/13/2024 1 1 Encounter Details Date Type Department Care Team (Latest Contact Info) Description 06/13/2023 Clinical Communication Department of Cardiovascular Medicine in [place], [place] [address] [place] [phone] Lubna Mcmillan M.D. [address] [place] [phone] Social History Tobacco Use Types Packs/Day Years Used Date Smoking Tobacco: Every Day Cigarettes 0.5 30 Smokeless Tobacco: Never Comments:4-5 cigarettes a da y Alcohol Use Standard Drinks/Week Comments Not Currently 0 (1 standard drink = 0.6 oz pur e alcohol) ocassionally [facility] Utilities Answer Date Recorded In the past 12 months has th e electric, gas, oil, or water company [...] week 03/25/2022 How often do you attend [facility] or hinduism services? Never 03/25/2022 Do you belong to any clubs o r organizations such as taoism groups, unions, fraternal [...] 03/25/2022 PHQ-2 Answer Date Recorded PHQ-2 Score 1 06/06/2023 [facility] [place] of Occupat ional Health - Occupational Stress [...] your living situation today? I have a [facility] place to live 06/06/2023 Education Answer Date [...] CDT Comprehensive Visit Department of Family Medicine, [facility], in [address] [phone] Ro Norton APRN, C.N.P., D.N.P. [address] [place] [phone] Discharge Disposition: Home or Self Care 11/08/2023 11:30 AM CDT Clinical Communication Virtual Review in [place], [place] [address] [place] [address] 11/15/2023 9:40 AM CDT Appointment Department of Laboratory Medicine and Pathology, [facility] in [place], [place] [address] [place] [phone] Lubna Mcmillan M.D. [address] [place] [phone] 11/15/2023 10:10 AM CDT Appointment Department of Cardiovascular Diseases in [address] [phone] Lubna Mcmillan M.D. [address] [place] [phone] Discharge Disposition: Home or Self Care 11/15/2023 1:00 PM CDT Appointment Department of Cardiac Rehabilitation in [place], [place] [address] [place] [phone] Lubna Mcmillan M.D. [address] [place] [phone] 11/15/2023 3:00 PM CDT Office Visit Department of Cardiovascular Medicine in [place], [place] [address] [place] [phone] Lubna Mcmillan M.D. [address] [place] [phone] Scheduled Referrals Name Type Priority Associated Diagnoses Order Schedule Gastroenterology and Hepatology - Hepatology consult (clinic) Outpatient Referral Routine Unspecified Viral Hepatitis C Without Hepatic Coma Expected: 06/14/2023, Expires: 09/12/2024 documented as of this encounter Visit Diagnoses Diagnosis Unspecified Viral Hepatitis C Without Hepatic Coma- Primary documented in this encounter Care Teams Training Systems Officer Relationship Specialty Start Date End Date Ro Norton APRN, C.N.P., D.N.P. [address] [phone] PCP - General Family Medicine 05/07/19 documented as of this encounter
--- OUTSIDE RECORDS SUMMARY | 2023-09-28 03:00 | XMS_ITS | Encounter Summary ---
Author Organization [facility] Address [address] [place] [address] Care Team Providers Care Scutcher Tender Name Role Phone Ro Norton APRN, C.N.P., D.N.P. Primary Ca re Provider Reason for Visit * Reason Onset Date Comments Med Question 09/27/2023 Encounter Details Date Type Department Care Team (Late st Contact Info) Description 09/27/2023 Nurse Triage Department of Family Medicine, [facility], in [address] [phone] Evelia Hernandez, R.N. [address] [place] [phone] Med Question Social History Tobacco Use Types Packs/Day Years Used Date Smoking Tobacco: Every Day Cigarettes 0.5 30 Smokeless Tobacco: Never Comments:4-5 cigarettes a da y Alcohol Use Standard Drinks/Week Comments Not Currently 0 (1 standard drink = 0.6 oz pur e alcohol) ocassionally [facility] Utilities Answer Date Recorded In the [...] 03/25/2022 How often do you attend chur or latter-day services? Never 03/25/2022 Do you belong to any clubs o r organizations such as faith groups, unions, fraternal [...] Answer Date Recorded PHQ-2 Score 2 07/31/2023 [facility] [place] of Occupat ional Health - Occupational Stress [...] your living situation today? I have a [facility] place to live 06/06/2023 Education Answer [...] encounter Miscellaneous Notes * Telephone Encounter - Evelia Hernandez, RRaffyN. - 09/27/2023 7:41 PM CDT Chief Complaint / Reason for Call Patient is a 53 y.o. female calling regarding Med Question. Assessment Concern: Patient calling to see if Berna Snow had sent an antibiotic in yet to a pharmacy for her dental abscess. Explained to patient that she did not order it yet and to call her when the clinicopens in the morning. Encouraged to call back with new/worsening symptoms. The recommended disposition is Other. documented in this encounter Plan of Treatment Upcoming Encounters Date Type Department Care Team (Latest Contact Info) Description 10/13/2023 10:30 AM CDT Comprehensive Visit Department of Family Medicine, [facility], in [address] [phone] Ro Norton, MORGAN, C.N.P., D.N.P. [address] [place] [phone] Discharge Disposition: Home or Self Care 11/08/2023 11:30 AM CDT Clinical Communication Virtual Review in [place], [place] 200 [place] [address] 11/15/2023 9:40 AM CDT Appointment Department of Laboratory Medicine and Pathology, [facility] in [place], [place] [address] [place] [phone] Lubna Mcmillan M.D. [address] [place] [phone] 11/15/2023 10:10 AM CDT Appointment Department of Cardiovascular Diseases in [place], [place] [address] [place] [phone] Lubna Mcmillan M.D. [address] [place] [phone] Discharge Disposition: Home or Self Care 11/15/2023 1:00 PM CDT Appointment Department of Cardiac Rehabilitation in [place], [place] [address] [place] [phone] Lubna Mcmillan M.D. [address] [place] [phone] 11/15/2023 3:00 PM CDT Office Visit Department of Cardiovascular Medicine in [place], [place] [address] [place] [phone] Lubna Mcmillan M.D. [address] [place] [phone] documented as of this encounter Visit Diagnoses Not on filedocumented in this encounter Care Teams Scutcher Tender Relationship Specialty Start Date End Date Ro Norton APRN, C.N.P., D.N.P. [address] [place] [phone] PCP - General Family Medicine 05/07/19 documented as of this encounter
--- OUTSIDE RECORDS SUMMARY | 2023-09-28 03:00 | XMS_ITS | Encounter Summary ---
Author Organization [facility] Address [address] [place] [address] Care Team Providers Care Pin Game Machine Inspector Name Role Phone Ro Norton APRN, C.N.PRaffy, D.N.P. Primary Ca re Provider Reason for Referral * Medication Prior Authorization - Denied Specialty Diagnoses / Procedures Referred By Maria L t Referred To Contact Ro Norton APRN, C.N.P., D.N.P. [address] [place] [phone] Referral ID Status Reason Start Date Expiration Date Visits Re quested Visits Authorized [id number] Denied 1 1 Reason for Visit * Reason Comments Med Refill Encounter Details Date Type Department Care Team (Late st Contact Info) Description 08/25/2023 Refill Department of Family Medicine, [facility], in [address] [phone] Ro Norton APRN, Bolivar.N.P., D.N.P. [address] [place] [phone] Med Refill Social History Tobacco Use Types Packs/Day Years Used Date Smoking Tobacco: Every Day Cigarettes 0.5 30 Smokeless Tobacco: Never Comments:4-5 cigarettes a da y Alcohol Use Standard Drinks/Week Comments Not Currently 0 (1 standard drink = 0.6 oz pur e alcohol) ocassionally [facility] Utilities Answer Date Recorded In the past 12 months has th e marked[employer], gas, oil, or water company threatened to [...] often do you attend chur ch or sabianism services? Never 03/25/2022 Do you belong to any clubs o r organizations such as restorationist groups, unions, fraternal [...] Answer Date Recorded PHQ-2 Score 2 07/31/2023 [facility] [place] of Occupat ional Health - Occupational Stress [...] CDT Comprehensive Visit Department of Family Medicine, [facility], in [address] [phone] Ro Norton, MORGAN, C.N.P., D.N.P. [address] [place] [phone] Discharge Disposition: Home or Self Care 11/08/2023 11:30 AM CDT Clinical Communication Virtual Review in [place], [place] [address] [place] [phone] 11/15/2023 9:40 AM CDT Appointment Department of Laboratory Medicine and Pathology, [facility] in [place], [place] [address] [place] [phone] Lubna Mcmillan M.D. [address] [place] [phone] 11/15/2023 10:10 AM CDT Appointment Department of Cardiovascular Diseases in [place], [place] [address] [place] [phone] Lubna Mcmillan M.D. [address] [place] [phone] Discharge Disposition: Home or Self Care 11/15/2023 1:00 PM CDT Appointment Department of Cardiac Rehabilitation in [place], [place] [address] [place] [phone] Lubna Mcmillan M.D. [address] [place] [phone] 11/15/2023 3:00 PM CDT Office Visit Department of Cardiovascular Medicine in [place], [place] [address] [place] [phone] Lubna Mcmillan M.D. [address] [place] [phone] documented as of this encounter Visit Diagnoses Not on filedocumented in this encounter Care Teams Pin Game Machine Inspector Relationship Specialty Start Date End Date Ro Norton APRN, C.N.P., D.N.P. [phone] [place] [phone] PCP - General Family Medicine 05/07/19 documented as of this encounter
--- OUTSIDE RECORDS SUMMARY | 2023-09-28 03:00 | XMS_ITS | Encounter Summary ---
Author Organization [facility] Address [address] [place] [address] Care Team Providers Care Tire Fabric Inspector Name Role Phone Ro Norton APRN, C.N.P., D.N.P. Primary Ca re Provider Encounter Details Date Type Department Care Team (Late st Contact Info) Description 09/27/2023 Patient Self-Triage [facility] Symptom Public Relations Director, Provider Social History Tobacco Use Types Packs/Day Years Used Date Smoking Tobacco: Every Day Cigarettes 0.5 30 Smokeless Tobacco: Never Comments:4-5 cigarettes a da y Alcohol Use Standard Drinks/Week Comments Not Currently 0 (1 standard drink = 0.6 oz pur e alcohol) ocassionally [facility] Utilities Answer Date Recorded In the past 12 months has e [employer], gas, oil, or water [employer] threatened to shut off services in your [...] often do you attend chur ch or quaker services? Never 03/25/2022 Do you belong to any clubs o r organizations such as catholic groups, unions, fraternal [...] Answer Date Recorded PHQ-2 Score 2 07/31/2023 [facility] Questionnaire Answer Date Recorded [...] your living situation today? I have a [facility] place to live 06/06/2023 Education Answer Date [...] of Family Medicine, [facility], in [address] [phone] oR Norton APRN, C.N.P., D.N.P. [address] [place] [phone] Discharge Disposition: Home or Self Care 11/08/2023 11:30 AM CDT Clinical Communication Virtual Review in [place], [place] [address] [place] [phone] 11/15/2023 9:40 AM CDT Appointment Department of Laboratory Medicine and Pathology, [facility], in [place], [place] [address] [place] [address] Lubna Mcmillan M.D. [address] [place] [phone] 11/15/2023 10:10 AM CDT Appointment Department of Cardiovascular Diseases in [place], [place] [address] [place] [phone] Lubna Mcmillan M.D. [address] [place] [phone] Discharge Disposition: Home or Self Care 11/15/2023 1:00 PM CDT Appointment Department of Cardiac Rehabilitation in [place], [place] [address] [place] [address] Lubna Mcmillan M.D. [address] [place] [phone] 11/15/2023 3:00 PM CDT Office Visit Department of Cardiovascular Medicine in [place], [place] [address] [place] [phone] Lubna Mcmillan M.D. [address] [place] [phone] documented as of this encounter Visit Diagnoses Not on filedocumented in this encounter Care Teams Tire Fabric Inspector Relationship Specialty Start Date End Date Ro Norton APRN, C.N.P., D.N.P. [address] [phone] PCP - General Family Medicine 05/07/19 documented as of this encounter
--- OUTSIDE RECORDS SUMMARY | 2023-09-28 03:00 | XMS_ITS | Encounter Summary ---
Author Organization [facility] Address [address] [place] [address] Care Team Providers Care Trailer Technician Name Role Phone Ro Norton APRN, C.N.P., D.N.P. Primary Ca re Provider Reason for Visit * Reason Comments Infection Encounter Details Date Type Department Care Team (Late st Contact Info) Description 08/14/2023 9:30 AM CDT Telemedicine Department of Family Medicine, [facility], in [place], [place] [address] [place] [phone] Tc Bee D.O. [address] [place] [phone] Pain Teeth (Primary Dx) Discharge Disposition: Home or Self Care Social History Tobacco Use Types Packs/Day Years Used Date Smoking Tobacco: Every Day Cigarettes 0.5 30 Smokeless Tobacco: Never Comments:4-5 cigarettes a da y Alcohol Use Standard Drinks/Week Comments Not Currently 0 (1 standard drink = 0.6 oz pur e alcohol) ocassionally [facility] Utilities Answer Date Recorded In the past 12 months has e [employer], gas, oil, or water [employer] threatened to shut off services in your [...] How often do you attend chur or zoroastrian services? Never 03/25/2022 Do you belong to any clubs o r organizations such as hoahaoism groups, unions, fraternal or athletic groups, or [...] Answer Date Recorded PHQ-2 Score 2 07/31/2023 [facility] [place] of Occupat ional Health - Occupational Stress [...] money to buy more. Never true 06/06/19 Within the past 12 months, t he [...] your living situation today? I have a [facility] place to live 06/06/2023 Education Answer Date [...] documented as of this encounter Progress Notes * Tc Bee D.O. - 08/14/2023 9:30 AM CDT SUBJECTIVE CHIEF COMPLAINT /REASON FOR VISIT Ms. Allison Schulz is a 53 y.o. female who presents via virtual video visit for request of antibiotics for dental infection She is at her home I am in the [facility]. HISTORY OF PRESENT ILLNESS Ms. Schulz Is a pleasant 53-year-old female who I am meeting very virtual video visit today for the 1st time. She had met with Dr. Nur via virtual video visit on 07/31/2023 at that time discussed COPD exacerbation. She states all those symptoms have resolved with the treatment provided. This is a new concern for today's visit. She states that a filling came out of her tooth about 1 month ago and then the 2 subsequently broke. She feels it isn't infected it has been getting sore over the last2 days there has also been some possible swelling of the right side of her face. She denies swallowing difficulties, adenopathy, fever nor chills. She can not feel an abscess along the gumline. Tylenol and ibuprofen or taking the edge off. She has a dentist visit scheduled 1 month from now. Patient's past medical problems, surgical history, social history, family medical history are reviewed in the tabbed electronic medical record on today's date. OBJECTIVE VITAL SIGNS not currently . PHYSICAL EXAMINATION General: Pleasant 53-year-old female seen on the video screen. Psych: Becomes tearful at times during our visit HEENT: Visual examination limited due to the capabilities of the telemedicine visit. I do not appreciate any obvious erythema to the face. She lifts her upper lip I see a missing tooth on the upper right lateral side. Unable to visualize any swelling or erythema of the gumline given limitations to the video. She palpates it and states she does not feel any swelling or soft area such as an abscess. ASSESSMENT / PLAN #1 Pain Teeth Other orders - amoxicillin-pot clavulanate (Augmentin) 875-125 mg per tablet; Take 1 tablet by mouth 2 (two) times a day., Starting 08/14/2023, Normal - L.acidoph-L.bulg-B.bif-S.therm (Bacid) 1 billion cell- 250 mg per tablet; Take 1 tablet by mouth 2 (two) times a day with meals., Starting 08/14/2023, Normal Will start Augmentin 1 tab twice daily for 10 days. Also start probiotic. Sent to the pharmacy of her choice. She will continue try to call the dentist to be seen earlier. If despite the antibiotics she notes any progression of symptoms she should be evaluated in person. She expresses understandingof plan. documented in this encounter Plan of Treatment Upcoming Encounters Date Type Department Care Team (Latest Contact Info) Description 10/13/2023 10:30 AM CDT Comprehensive Visit Department of Family Medicine, [facility], in [address] [phone] Ro Norton APRN, C.N.P., D.N.P. [address] [place] [phone] Discharge Disposition: Home or Self Care 11/08/2023 11:30 AM CDT Clinical Communication Virtual Review in [place], [place] 200 [place] [phone] 11/15/2023 9:40 AM CDT Appointment Department of Laboratory Medicine and Pathology, [facility], in [place], [place] [address] [place] [phone] Lubna Mcmillan M.D. [address] [place] [phone] 11/15/2023 10:10 AM CDT Appointment Department of Cardiovascular Diseases in [address] [phone] Lubna cMmillan M.D. [address] [place] [phone] Discharge Disposition: Home or Self Care 11/15/2023 1:00 PM CDT Appointment Department of Cardiac Rehabilitation in [place], [place] [address] [place] [phone] Lubna Mcmillan M.D. [address] [place] [phone] 11/15/2023 3:00 PM CDT Office Visit Department of Cardiovascular Medicine in [place], [place] [address] [place] [phone] Lubna Mcmillan M.D. [address] [place] [phone] documented as of this encounter Visit Diagnoses Diagnosis Pain Teeth- Primary documented in this encounter Care Teams Trailer Technician Relationship Specialty Start Date End Date Ro Norton APRN C.N.P., D.N.P. [phone] [place] [phone] PCP - General Family Medicine 05/07/19 documented as of this encounter
--- OUTSIDE RECORDS SUMMARY | 2023-09-28 03:00 | XMS_ITS | Encounter Summary ---
Author Organization [facility] Address [address] [place] [address] Care Team Providers Care Stock Turner Name Role Phone Ro Norton APRN, C.N.P., D.N.P. Primary Ca re Provider Encounter Details Date Type Department Care Team (Late st Contact Info) Description 09/11/2023 Clinical Communication Pharmacy Prior Auth RO [phone] Salome Alfaro Social History Tobacco Use Types Packs/Day Years Used Date Smoking Tobacco: Every Day Cigarettes 0.5 30 Smokeless Tobacco: Never Comments:4-5 cigarettes a da y Alcohol Use Standard Drinks/Week Comments Not Currently 0 (1 standard drink = 0.6 oz pur e alcohol) ocassionally [facility] Utilities Answer Date Recorded In the past 12 months has e [employer], gas, oil, or water [employer] threatened to shut off services in your [...] How often do you attend chur or uatsdin services? Never 03/25/2022 Do you belong to any clubs o r organizations such as confucianism groups, unions, fraternal [...] Answer Date Recorded PHQ-2 Score 2 07/31/2023 [facility] - Occupational Stress Questionnaire Answer Date [...] your living situation today? I have a [facility] place to live 06/06/2023 Education Answer [...] CDT Comprehensive Visit Department of Family Medicine, [facility], in [address] [phone] Ro Norton APRN, C.N.P., D.N.P. [address] [place] [phone] Discharge Disposition: Home or Self Care 11/08/2023 11:30 AM CDT Clinical Communication Virtual Review in [address] [phone] 11/15/2023 9:40 AM CDT Appointment Department of Laboratory Medicine and Pathology, [facility], in [place], [place] [address] [place] [phone] Lubna Mcmillan M.D. [address] [place] [phone] 11/15/2023 10:10 AM CDT Appointment Department of Cardiovascular Diseases in [place], [place] [address] [place] [phone] Lubna Mcmillan M.D. [address] [place] [phone] Discharge Disposition: Home or Self Care 11/15/2023 1:00 PM CDT Appointment Department of Cardiac Rehabilitation in [place], [place] [address] [place] [address] Lubna Mcmillan M.D. [address] [place] [phone] 11/15/2023 3:00 PM CDT Office Visit Department of Cardiovascular Medicine in [place], [place] [address] [place] [phone] Lubna Mcmillan M.D. [address] [place] [phone] documented as of this encounter Visit Diagnoses Not on filedocumented in this encounter Care Teams Stock Turner Relationship Specialty Start Date End Date Ro Norton APRN, C.N.P., D.N.P. [address] [place] [phone] PCP - General Family Medicine 05/07/19 documented as of this encounter
--- OUTSIDE RECORDS SUMMARY | 2023-09-28 03:00 | XMS_ITS | Encounter Summary ---
Author Organization [facility] Address [address] [place] [address] Care Team Providers Care Experimental Mechanic Electrical Name Role Phone Ro Norton APRN, C.N.P., D.N.P. Primary Ca re Provider Encounter Details Date Type Department Care Team (Latest Contact Info) Description 06/14/2023 Clinical Communication Department of Cardiovascular Medicine in [place], [place] [address] [place] [phone] Lubna Mcmillan M.D. [address] [place] [address] Social History Tobacco Use Types Packs/Day Years Used Date Smoking Tobacco: Every Day Cigarettes 0.5 30 Smokeless Tobacco: Never Comments:4-5 cigarettes a da y Alcohol Use Standard Drinks/Week Comments Not Currently 0 (1 standard drink = 0.6 oz pur e alcohol) ocassionally [facility] Utilities Answer Date Recorded In the past [...] How often do you attend chur or christian services? Never 03/25/2022 Do you belong to any clubs o r organizations such as samaritan groups, unions, fraternal [...] Answer Date Recorded PHQ-2 Score 1 06/06/2023 [facility] of Occupat ional Health - [...] your living situation today? I have a [facility] place to live 06/06/2023 Education Answer [...] CDT Comprehensive Visit Department of Family Medicine, [facility], in [address] [phone] Ro Norton APRN, C.N.P., D.N.P. [address] [place] [phone] Discharge Disposition: Home or Self Care 11/08/2023 11:30 AM CDT Clinical Communication Virtual Review in [place], [place] [address] [place] [phone] 11/15/2023 9:40 AM CDT Appointment Department of Laboratory Medicine and Pathology, [facility] in [place], [place] [address] [place] [phone] Lubna Mcmillan M.D. [address] [place] [phone] 11/15/2023 10:10 AM CDT Appointment Department of Cardiovascular Diseases in [place], [place] [address] [place] [phone] Lubna Mcmillan M.D. [address] [place] [phone] Discharge Disposition: Home or Self Care 11/15/2023 1:00 PM CDT Appointment Department of Cardiac Rehabilitation in [place], [place] [address] [place] [phone] Lubna Mcmillan M.D. [address] [place] [phone] 11/15/2023 3:00 PM CDT Office Visit Department of Cardiovascular Medicine in [place], [place] [address] [place] [phone] Lubna Mcmillan M.D. [address] [place] [phone] documented as of this encounter Visit Diagnoses Not on filedocumented in this encounter Care Teams Experimental Mechanic Electrical Relationship Specialty Start Date End Date Ro Norton APRN, C.N.P., D.N.P. [address] [place] [address] [phone] PCP - General Family Medicine 05/07/19 documented as of this encounter
--- OUTSIDE RECORDS SUMMARY | 2023-09-28 03:00 | XMS_ITS | Encounter Summary ---
Author Organization [facility] Address [address] [place] [address] Care Team Providers Care Passport Support Manager Name Role Phone Ro Norton APRN, C.N.P., D.N.P. Primary Ca re Provider Encounter Details Date Type Department Care Team (Late st Contact Info) Description 08/22/2023 Orders Only [facility] [address] [phone] Karine Coles, Pharm.D., R.Ph. [address] [place] [phone] Social History Tobacco Use Types Packs/Day Years Used Date Smoking Tobacco: Every Day Cigarettes 0.5 30 Smokeless Tobacco: Never Comments:4-5 cigarettes a da y Alcohol Use Standard Drinks/Week Comments Not Currently 0 (1 standard drink = 0.6 oz pur e alcohol) ocassionally [facility] Utilities Answer Date Recorded In the [...] How often do you attend chur or restorationist services? Never 03/25/2022 Do you belong to any clubs o r organizations such as restoration groups, unions, fraternal [...] Answer Date Recorded PHQ-2 Score 2 07/31/2023 [facility] [place] of Occupat ional Health - Occupational Stress [...] your living situation today? I have a [facility] place to live 06/06/2023 Education [...] CDT Comprehensive Visit Department of Family Medicine, [facility], in [address] [phone] Ro Norton APRN, C.N.P., D.N.P. [address] [place] [phone] Discharge Disposition: Home or Self Care 11/08/2023 11:30 AM CDT Clinical Communication Virtual Review in [place], [place] 200 [place] [phone] 11/15/2023 9:40 AM CDT Appointment Department of Laboratory Medicine and Pathology, [facility] in [place], [place] [address] [place] [phone] Lubna Mcmillan M.D. [address] [place] [phone] 11/15/2023 10:10 AM CDT Appointment Department of Cardiovascular Diseases in [place], [place] [address] [place] [phone] Lubna Mcmillan M.D. [address] [place] [phone] Discharge Disposition: Home or Self Care 11/15/2023 1:00 PM CDT Appointment Department of Cardiac Rehabilitation in [place], [place] [address] [place] [phone] Lubna Mcmillan M.D. [address] [place] [phone] 11/15/2023 3:00 PM CDT Office Visit Department of Cardiovascular Medicine in [address] [phone] Lubna Mcmillan M.D. [address] [place] [phone] documented as of this encounter Visit Diagnoses Not on filedocumented in this encounter Care Teams Passport Support Manager Relationship Specialty Start Date End Date Ro Norton APRN, C.N.P., D.N.P. [address] [place] [phone] PCP - General Family Medicine 05/07/19 documented as of this encounter
--- OUTSIDE RECORDS SUMMARY | 2023-09-28 03:00 | XMS_ITS | Encounter Summary ---
Author Organization [facility] Address [address] [place] [address] Care Team Providers Care Mill House Supervisor Name Role Phone Ro Norton APRN, C.N.P., D.N.P. Primary Ca re Provider Reason for Visit * Reason Comments Med Refill Encounter Details Date Type Department Care Team (Late st Contact Info) Description 07/23/2023 Refill Department of Family Medicine, [facility], in [address] [phone] Ro Norton APRN, C.N.P., D.N.P. [address] [place] [phone] Med Refill Social History Tobacco Use Types Packs/Day Years Used Date Smoking Tobacco: Every Day Cigarettes 0.5 30 Smokeless Tobacco: Never Comments:4-5 cigarettes a da y Alcohol Use Standard Drinks/Week Comments Not Currently 0 (1 standard drink = 0.6 oz pur e alcohol) ocassionally [facility] Utilities Answer Date Recorded In the past 12 months has e [employer], gas, oil, or water [employer] threatened to shut off services in your [...] How often do you attend chur or jewish services? Never 03/25/2022 Do you belong to any clubs o r organizations such as hinduism groups, unions, fraternal [...] Answer Date Recorded PHQ-2 Score 1 06/06/2023 [facility] [place] of Occupat ional Health - Occupational Stress [...] your living situation today? I have a [facility] place to live 06/06/2023 Education Answer [...] CDT Comprehensive Visit Department of Family Medicine, [facility], in [address] [phone] Ro Norton APRN, C.N.P., D.N.P. [address] [place] [phone] Discharge Disposition: Home or Self Care 11/08/2023 11:30 AM CDT Clinical Communication Virtual Review in [place], [place] [address] [place] [phone] 11/15/2023 9:40 AM CDT Appointment Department of Laboratory Medicine and Pathology, [facility] in [place], [place] [address] [place] [phone] Lubna Mcmillan M.D. [address] [place] [phone] 11/15/2023 10:10 AM CDT Appointment Department of Cardiovascular Diseases in [place], [place] [address] [place] [phone] Lubna Mcmillan M.D. [address] [place] [phone] Discharge Disposition: Home or Self Care 11/15/2023 1:00 PM CDT Appointment Department of Cardiac Rehabilitation in [place], [place] [address] [place] [phone] Lubna Mcmillan M.D. [address] [place] [phone] 11/15/2023 3:00 PM CDT Office Visit Department of Cardiovascular Medicine in [address] [phone] Lubna Mcmillan M.D. [address] [place] [phone] documented as of this encounter Visit Diagnoses Not on filedocumented in this encounter Care Teams Mill House Supervisor Relationship Specialty Start Date End Date Ro Nortno APRN, C.N.P., D.N.P. [address] [place] [address] [place] [phone] PCP - General Family Medicine 05/07/19 documented as of this encounter
--- OUTSIDE RECORDS SUMMARY | 2023-09-28 03:00 | XMS_ITS | Encounter Summary ---
Author Organization [facility] Address [address] [place] [address] Care Team Providers Care Communications Specialist Name Role Phone Ro Norton APRN, C.N.P., D.N.P. Primary Ca re Provider Encounter Details Date Type Department Care Team (Late st Contact Info) Description 09/27/2023 Patient Self-Triage CONNECTED CARE Symptom Registered Vascular Technologist (Rvt), Provider Social History Tobacco Use Types Packs/Day Years Used Date Smoking Tobacco: Every Day Cigarettes 0.5 30 Smokeless Tobacco: Never Comments:4-5 cigarettes a da y Alcohol Use Standard Drinks/Week Comments Not Currently 0 (1 standard drink = 0.6 oz pur e alcohol) ocassionally [facility] Utilities Answer Date Recorded In the past 12 months has e [employer] gas, oil, or water [employer] threatened to shut off services in your [...] often do you attend chur ch or adventist services? Never 03/25/2022 Do you belong to any clubs o r organizations such as episcopalian groups, unions, fraternal [...] Answer Date Recorded PHQ-2 Score 2 07/31/2023 [facility]ational [facility] Questionnaire Answer Date [...] your living situation today? I have a [facility] place to live 06/06/2023 Education Answer [...] CDT Comprehensive Visit Department of Family Medicine, [facility], in [address] [phone] Ro Norton APRN, C.N.P., D.N.P. [address] [place] [phone] Discharge Disposition: Home or Self Care 11/08/2023 11:30 AM CDT Clinical Communication Virtual Review in [place], [place] [address] [place] [phone] 11/15/2023 9:40 AM CDT Appointment Department of Laboratory Medicine and Pathology, [facility], in [place], [place] [address] [place] [phone] Lubna Mcmillan M.D. [address] [place] [phone] 11/15/2023 10:10 AM CDT Appointment Department of Cardiovascular Diseases in [place], [place] [address] [place] [phone] Lubna Mcmillan M.D. [address] [place] [phone] Discharge Disposition: Home or Self Care 11/15/2023 1:00 PM CDT Appointment Department of Cardiac Rehabilitation in [place], [place] [address] [place] [phone] Lubna Mcmillan M.D. [address] [place] [phone] 11/15/2023 3:00 PM CDT Office Visit Department of Cardiovascular Medicine in [place], [place] [address] [place] [phone] Lubna Mcmillan M.D. [address] [place] [phone] documented as of this encounter Visit Diagnoses Not on filedocumented in this encounter Care Teams Communications Specialist Relationship Specialty Start Date End Date Ro Norton APRN, C.N.P., D.N.P. [address] [phone] PCP - General Family Medicine 05/07/19 documented as of this encounter
--- OUTSIDE RECORDS SUMMARY | 2023-09-28 03:00 | XMS_ITS | Encounter Summary ---
Author Organization [facility] Address [address] [place] [address] Care Team Providers Care Violin Repairer Name Role Phone Ro Norton APRN, C.N.P., D.N.P. Primary Ca re Provider Reason for Visit * Reason Comments tooth infection Encounter Details Date Type Department Care Team (Late st Contact Info) Description 09/07/2023 1:30 PM CDT Telemedicine Department of Family Medicine, [facility], in [place], [place] [address] [place] [phone] Valentin Andrea M.D. [address] [place] [phone] Pain Teeth (Primary Dx) Discharge Disposition: Home or Self Care Social History Tobacco Use Types Packs/Day Years Used Date Smoking Tobacco: Every Day Cigarettes 0.5 30 Smokeless Tobacco: Never Comments:4-5 cigarettes a da y Alcohol Use Standard Drinks/Week Comments Not Currently 0 (1 standard drink = 0.6 oz pur e alcohol) ocassionally [facility] Utilities Answer Date Recorded In the past 12 months has e [employer], gas, oil, or water [employer] threatened to shut off services in your [...] How often do you attend chur or buddhist services? Never 03/25/2022 Do you belong to any clubs o r organizations such as orthodox groups, unions, fraternal [...] Answer Date Recorded PHQ-2 Score 2 07/31/2023 [facility] [place] of Occupat ional Health - Occupational Stress [...] living situation today? I have a [facility] place to live 06/06/2023 Education Answer [...] as of this encounter Progress Notes * Valentin Andrea M.D. - 09/07/2023 1:30 PM CDT SUBJECTIVE CHIEF COMPLAINT / REASON FOR VISIT Allison Schulz is a 53 y.o. female who presents for evaluation of tooth infection. Video visit HISTORY OF PRESENT ILLNESS The patient was seen three and half weeks ago by video visit complaining of an abscess tooth. She was treated with Augmentin had complete relief of symptoms. She has contacted a community dentist andshe has an appointment in October for extraction and further management. The patient reports she awoke today with recurrent pain. There has been no drainage from the tooth. She has had no fever chills or other systemic symptoms. She wishes a refill of the prescription. The following portions of the patient's history were reviewed and updated as appropriate: allergies, current medications, family history, medical history, social history, surgical history and problemlist. REVIEW OF SYSTEMS OBJECTIVE not currently . PHYSICAL EXAM Examination not done due to video visit ASSESSMENT / PLAN 1. Tooth pain. Impression: Patient has history of dental abscess. Good response to Augmentin. Definitive management for the abscess tooth is planned for October. It is reasonable to renew antibiotic prescription. Plan: Rx sent for Augmentin 875 b.i.d. times 10 days. Probiotics recommended. Follow up as needed documented in this encounter Plan of Treatment Upcoming Encounters Date Type Department Care Team (Latest Contact Info) Description 10/13/2023 10:30 AM CDT Comprehensive Visit Department of Family Medicine, [facility], in [address] [phone] Ro Norton, MORGAN, C.N.P., D.N.P. [address] [place] [phone] Discharge Disposition: Home or Self Care 11/08/2023 11:30 AM CDT Clinical Communication Virtual Review in [address] [phone] 11/15/2023 9:40 AM CDT Appointment Department of Laboratory Medicine and Pathology, [facility], in [address] [phone] Lubna Mcmillan M.D. [address] [place] [phone] 11/15/2023 10:10 AM CDT Appointment Department of Cardiovascular Diseases in [address] [place] [phone] Lubna Mcmillan M.D. [address] [place] [phone] Discharge Disposition: Home or Self Care 11/15/2023 1:00 PM CDT Appointment Department of Cardiac Rehabilitation in [place], [place] [address] [place] [phone] Lubna Mcmillan M.D. [address] [place] [phone] 11/15/2023 3:00 PM CDT Office Visit Department of Cardiovascular Medicine in [place], [place] [address] [place] [phone] Lubna Mcmillan M.D. [address] [place] [phone] documented as of this encounter Visit Diagnoses Diagnosis Pain Teeth- Primary documented in this encounter Care Teams Violin Repairer Relationship Specialty Start Date End Date Ro Norton APRN, C.N.P., D.N.P. [address] [place] [phone] PCP - General Family Medicine 05/07/19 documented as of this encounter
--- OUTSIDE RECORDS SUMMARY | 2023-09-28 03:00 | XMS_ITS | Encounter Summary ---
Author Organization [facility] Address [address] [place] [address] Care Team Providers Care Dog Boarder Name Role Phone Ro Norton APRN, C.N.P., D.N.P. Primary Ca re Provider Reason for Visit * Reason Comments Med Refill Encounter Details Date Type Department Care Team (Late st Contact Info) Description 08/21/2023 Refill Department of Cardiovascular Medicine in [place], [place] [address] [place] [phone] Lubna Mcmillan M.D. [address] [place] [phone] Med Refill Social History Tobacco Use Types Packs/Day Years Used Date Smoking Tobacco: Every Day Cigarettes 0.5 30 Smokeless Tobacco: Never Comments:4-5 cigarettes a da y Alcohol Use Standard Drinks/Week Comments Not Currently 0 (1 standard drink = 0.6 oz pur e alcohol) ocassionally [facility] Utilities Answer Date Recorded In the [...] How often do you attend chur or anabaptism services? Never 03/25/2022 Do you belong to any clubs o r organizations such as confucianist groups, unions, fraternal [...] Answer Date Recorded PHQ-2 Score 2 07/31/2023 [facility] [place] of Occupat ional Health - Occupational Stress [...] your living situation today? I have a [facility] place to live 06/06/2023 Education Answer [...] encounter Miscellaneous Notes * Telephone Encounter - Avis Joe Elan - 08/22/2023 3:15 PM CDT Refill too soon. Patient has an active script at below pharmacy good until April 2024. Please see below, thank you. Disp Refills Start End sildenafil (REVATIO) 20 mg tablet 90 tablet 11 04/21/2023 -- Sig - Route: Take 1 tablet (20 mg total) by mouth 3 (three) times a day. - oral Sent to pharmacy as: sildenafiL (pulmonary hypertension) 20 mg tablet (REVATIO) E-Prescribing Status: Receipt confirmed by pharmacy (04/21/2023 4:04 PM [facility]ACLE ERP ARCHITECT) No prior authorization was found for this prescription. Found prior authorization for another prescription for the same medication: Approved [place] - [address] [place] [address] documented in this encounter Plan of Treatment Upcoming Encounters Date Type Department Care Team (Latest Contact Info) Description 10/13/2023 10:30 AM CDT Comprehensive Visit Department of Family Medicine, [facility], in [address] [phone] Ro Norton, MORGAN, C.N.P., D.N.P. [address] [place] [phone] Discharge Disposition: Home or Self Care 11/08/2023 11:30 AM CDT Clinical Communication Virtual Review in [address] [phone] 11/15/2023 9:40 AM CDT Appointment Department of Laboratory Medicine and Pathology, [facility] in [address] [phone] Lubna Mcmillan M.D. [address] [place] [phone] 11/15/2023 10:10 AM CDT Appointment Department of Cardiovascular Diseases in [address] [phone] Lubna Mcmillan M.D. [address] [place] [phone] Discharge Disposition: Home or Self Care 11/15/2023 1:00 PM CDT Appointment Department of Cardiac Rehabilitation in [address] [phone] Lubna Mcmillan M.D. [address] [place] [phone] 11/15/2023 3:00 PM CDT Office Visit Department of Cardiovascular Medicine in [place], [place] [address] [place] [phone] Lubna Mcmillan M.D. [address] [place] [phone] documented as of this encounter Visit Diagnoses Not on filedocumented in this encounter Care Teams Dog Boarder Relationship Specialty Start Date End Date Ro Norton APRN, C.N.P., D.N.P. [phone] [place] [phone] PCP - General Family Medicine 05/07/19 documented as of this encounter
--- OUTSIDE RECORDS SUMMARY | 2023-09-28 03:00 | XMS_ITS ---
Author Organization [facility] Address [address] [place] [address] Care Team Providers Care Maintenance Operator Name Role Phone Unavailable Unavailable Unavailable Surgery Details Not on file Complications Check Surgery Details section. Procedure Estimated Blood Loss Check Surgery Details section. Procedure Findings Check Surgery Details section. Procedure Specimens Taken Check Surgery Details section.
--- OUTSIDE RECORDS SUMMARY | 2023-09-28 03:00 | XMS_ITS | Encounter Summary ---
Author Organization [facility] Address [address] [place] [phone] Care Team Providers Care Safety Manager Name Role Phone Ro Norton APRN, C.N.P., D.N.P. Primary Ca re Provider Encounter Details Date Type Department Care Team (Late st Contact Info) Description 07/06/2023 Clinical Communication Department of Orthopedic Surgery in [place], [place] [address] [place] [phone] Kady Collins, MPAS, P.A.-C. [address] [place] [phone] Social History Tobacco Use Types Packs/Day Years Used Date Smoking Tobacco: Every Day Cigarettes 0.5 30 Smokeless Tobacco: Never Comments:4-5 cigarettes a da y Alcohol Use Standard Drinks/Week Comments Not Currently 0 (1 standard drink = 0.6 oz pur e alcohol) ocassionally [facility] Utilities Answer Date Recorded In [...] How often do you attend chur or sikhism services? Never 03/25/2022 Do you belong to any clubs o r organizations such as buddhism groups, unions, fraternal [...] Answer Date Recorded PHQ-2 Score 1 06/06/2023 [facility] [place] of Occupat ional Health - Occupational Stress [...] your living situation today? I have a [facility] place to live 06/06/2023 Education Answer Date [...] of Family Medicine, [facility], in [address] [phone] Ro Norton APRN, C.N.P., D.N.P. [address] [place] [phone] Discharge Disposition: Home or Self Care 11/08/2023 11:30 AM CDT Clinical Communication Virtual Review in [place], [place] [address] [place] [phone] 11/15/2023 9:40 AM CDT Appointment Department of Laboratory Medicine and Pathology, [facility] in [place], [place] [address] [place] [phone] Lubna Mcmillan M.D. [address] [place] [phone] 11/15/2023 10:10 AM CDT Appointment Department of Cardiovascular Diseases in [place], [place] [address] [place] [phone] Lubna Mcmillan M.D. [address] [place] [phone] Discharge Disposition: Home or Self Care 11/15/2023 1:00 PM CDT Appointment Department of Cardiac Rehabilitation in [place], [place] [address] [place] [phone] Lubna Mcmillan M.D. [address] [place] [phone] 11/15/2023 3:00 PM CDT Office Visit Department of Cardiovascular Medicine in [address] [phone] Lubna Mcmillan M.D. [address] [place] [phone] documented as of this encounter Visit Diagnoses Not on filedocumented in this encounter Care Teams Safety Manager Relationship Specialty Start Date End Date Ro Norton APRN, C.N.P., D.N.P. [address] [place] [phone] PCP - General Family Medicine 05/07/19 documented as of this encounter
--- OUTSIDE RECORDS SUMMARY | 2023-09-28 03:00 | XMS_ITS | Encounter Summary ---
Author Organization [facility] Address [address] [place] [address] Care Team Providers Care Smoking Tobacco Packer Hand Name Role Phone Ro Norton APRN, C.N.P., D.N.P. Primary Ca re Provider Reason for Visit * Reason Comments Follow-up Chest congestion sta rted on Monday , no fevers, SOB with coughing and exertionAlso uses O2, unable to check sats at homeUsing neb and hasn't helped much Encounter Details Date Type Department Care Team (Late st Contact Info) Description 07/31/2023 5:30 PM CDT Telemedicine Department of Family Medicine, [facility], in [address] [phone] Corina Nur M.D. [address] [place] [phone] Chronic Obstructive Pulmonary Disease Exacerbation (HCC) Discharge Disposition: Home or Self Care Social History Tobacco Use Types Packs/Day Years Used Date Smoking Tobacco: Every Day Cigarettes 0.5 30 Smokeless Tobacco: Never Tobacco Cessation:Ready to Q uit: Not Asked; Counseling Given: Not Answered Comments:4-5 cigarettes a day Alcohol Use Standard Drinks/Week Comments Not Currently 0 (1 standard drink = 0.6 oz pur e alcohol) ocassionally [facility] Utilities Answer Date Recorded In the past 12 months has [employer], gas, oil, or water company threatened to [...] How often do you attend chur or episcopalian services? Never 03/25/2022 Do you belong to [...] Answer Date Recorded PHQ-2 Score 2 07/31/2023 [facility] Mode of Occupat ional Health - Occupational Stress [...] your living situation today? [facility] 06/06/2023 [...] as of this encounter Progress Notes * Corina Nur M.D. - 07/31/2023 5:30 PM CDT SUBJECTIVE Consult conducted via real-time audio/video technology by Corina Nur M.D. in [facility] to the patient in the patient's home. Patient was informed of the roles, benefits (including but not limited to improved access to medical care, and more efficient medical evaluation/management), and limitations (including but not limited to information gathered may not be sufficient to allow for appropriate medical decision making, technical issues could lead to a delay in evaluation and medical management, in person evaluation may still be needed) of telehealth visits and agrees to continue with the visit: YES CHIEF COMPLAINT Follow-up (Chest congestion started on Monday , no fevers, SOB with coughing and exertion/Also usesO2, unable to check sats at home/Using neb and hasn't helped much) HISTORY OF PRESENT ILLNESS: Allison Schulz is a 53 y.o. female patient who is being seen today for above concern. She reports shortness of breath, which started over the weekend. Fatigued and achy for one day, butnow resolved. She has wheezing and dry cough. No fever. No sick contacts. No sore throat, runny nose, or other upper respiratory symptoms. She is on oxygen chronically. She is needing 3-4 L of oxygencontinuously, which is at her baseline. She is using nebs 4-5 times per day but not responding as we ll as she typically does. She states that her current symptoms feel similar to prior COPD exacerbations and would like to try a course of prednisone. She is on mecitentan for pulmonary hypertension and denies adverse effects. She states that she will be following up with cardiology soon. OBJECTIVE PHYSICAL EXAMINATION Constitutional General: She is not in acute distress. Appearance: She is not toxic-appearing. Pulmonary Effort: Pulmonary effort is normal. Neurological Mental Status: She is alert. Psychiatric Mood and Affect: Mood normal. Behavior: Behavior normal. ASSESSMENT / PLAN #1 Chronic Obstructive Pulmonary Disease Exacerbation (HCC) Patient describes symptoms that are concerning for COPD exacerbation. Differential also includes worsening pulmonary hypertension. She was unable to be present in person today, so unfortunately we were unable to perform an exam or assess vitals. She denies increasing home oxygen needs. We will prescribe a course of prednisone, 40 mg daily for 5 days. If symptoms worsen or do not improve with prednisone, advised in-person follow-up. Corina Nur M.D. documented in this encounter Plan of Treatment Upcoming Encounters Date Type Department Care Team (Latest Contact Info) Description 10/13/2023 10:30 AM CDT Comprehensive Visit Department of Family Medicine, [facility], in [address] [phone] Ro Norton APRN, C.N.P., D.N.P. [address] [place] [phone] Discharge Disposition: Home or Self Care 11/08/2023 11:30 AM CDT Clinical Communication Virtual Review in [place], [place] [address] [place] [phone] 11/15/2023 9:40 AM CDT Appointment Department of Laboratory Medicine and Pathology, [facility] in [place], [place] [address] [place] [phone] Lubna Mcmillan M.D. [address] [place] [phone] 11/15/2023 10:10 AM CDT Appointment Department of Cardiovascular Diseases in [address] [phone] Lubna Mcmillan M.D. [address] [place] [phone] Discharge Disposition: Home or Self Care 11/15/2023 1:00 PM CDT Appointment Department of Cardiac Rehabilitation in [place], [place] [address] [place] [phone] Lubna Mcmillan M.D. [address] [place] [phone] 11/15/2023 3:00 PM CDT Office Visit Department of Cardiovascular Medicine in [place], [place] [address] [place] [phone] Lubna Mcmillan M.D. [address] [place] [phone] documented as of this encounter Visit Diagnoses Diagnosis Chronic Obstructive Pulmonary Disease Exacerbation (HCC) documented in this encounter Care Teams Smoking Tobacco Packer Hand Relationship Specialty Start Date End Date Ro Norton APRN, C.N.P., D.N.P. [address] [place] [phone] PCP - General Family Medicine 05/07/19 documented as of this encounter
--- OUTSIDE RECORDS SUMMARY | 2023-09-28 03:00 | XMS_ITS | Encounter Summary ---
Author Organization [facility] Address [address] [place] [address] Care Team Providers Care Programmer Name Role Phone Ro Norton APRN, C.N.P., D.N.P. Primary Ca re Provider Reason for Visit * Reason Comments Other Tooth infection Encounter Details Date Type Department Care Team (Late st Contact Info) Description 09/27/2023 3:00 PM CDT Telemedicine Department of Family Medicine, [facility], in [place] [address] [place] [phone] Berna Snow APRN, C.N.P. [address] [place] [phone] Arrived Discharge Disposition: Home or Self Care Social History Tobacco Use Types Packs/Day Years Used Date Smoking Tobacco: Every Day Cigarettes 0.5 30 Smokeless Tobacco: Never Comments:4-5 cigarettes a da y Alcohol Use Standard Drinks/Week Comments Not Currently 0 (1 standard drink = 0.6 oz pur e alcohol) ocassionally [facility] Utilities Answer Date Recorded In the past 12 months has e [employer], gas, oil, or water [employer] threatened to shut off services in your [...] often do you attend chur ch or mormonism services? Never 03/25/2022 Do you belong to any clubs o r organizations such as scientology groups, unions, fraternal [...] Answer Date Recorded PHQ-2 Score 2 07/31/2023 [facility] [place] of Occupat ional Health - Occupational Stress [...] your living situation today? I have a [facility] place to live 06/06/2023 Education Answer [...] Comprehensive Visit Department of Family Medicine, [facility], in [address] [phone] Ro Norton APRN, C.N.P., D.N.P. [address] [place] [phone] Discharge Disposition: Home or Self Care 11/08/2023 11:30 AM CDT Clinical Communication Virtual Review in [place], [place] 200 [place] [phone] 11/15/2023 9:40 AM CDT Appointment Department of Laboratory Medicine and Pathology, [facility] in [place], [place] [address] [place] [phone] Lubna Mcmillan M.D. [address] [place] [phone] 11/15/2023 10:10 AM CDT Appointment Department of Cardiovascular Diseases in [address] [phone] Lubna Mcmillan M.D. [address] [place] [phone] Discharge Disposition: Home or Self Care 11/15/2023 1:00 PM CDT Appointment Department of Cardiac Rehabilitation in [address] [phone] Lubna Mcmillan M.D. [address] [place] [phone] 11/15/2023 3:00 PM CDT Office Visit Department of Cardiovascular Medicine in [address] [phone] Lubna Mcmillan M.D. [address] [place] [phone] documented as of this encounter Visit Diagnoses Not on filedocumented in this encounter Care Teams Programmer Relationship Specialty Start Date End Date Ro Norton APRN, C.N.P., D.N.P. [address] [place] [address] [place] [phone] PCP - General Family Medicine 05/07/19 documented as of this encounter
--- NOTE | 2023-09-28 03:03 | ED.GENADULT ---
HPI - General Adult General Chief complaint: Dental/Oral/Mouth Injury/Pain Stated complaint: infected gum Time Seen by Provider: 09/28/23 02:23 Source: patient Mode of arrival: ambulatory Limitations: no limitations History of Present Illness HPI narrative: 53-year-old female with significant baseline pulmonary hypertension and chronic hypoxia presents to the emergency department for evaluation of swelling of the right side of her face. Reports that she has been struggling with a broken tooth and dental abscess for a few months. She has been on 2 courses of Augmentin, ending about a month ago. She has an upcoming appointment to see an oral surgeon but not for about 5 weeks. She had a telehealth visit this morning with her primary care team. She inquired about an antibiotic besides Augmentin since the last 2 courses did not clear up the infection. The midlevel was going to check with the patient's physician and send in an antibiotic after they had discussed. Unfortunately, it sounds like no antibiotic was sent to the pharmacy. Patient therefore was not able to start an antibiotic and she feels like the swelling is getting worse. She now has swelling of the cheek but not the eyelid, forehead, chin or airway. She notes no difficulty breathing or swallowing. There is no fever, no shaking chills. She has not tried taking any ibuprofen for the pain, did try a Tylenol and it did not relieve her symptoms. No difficulty eating. No recent changes in her medications. She has a known history of severe pulmonary hypertension and is very hypoxic each visit to the emergency department here. She says that her oxygen levels tend to live in the 70s and she wears her oxygen at night and when she ?feels like she needs it?. She is not feeling short of breath at this time. She admits that most medical providers are quite alarmed by her hypoxia but she assures all of this that this is her baseline and I can review records and see that she is correct. 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 She is on 4 L of oxygen at baseline. Admits that she does not really feel better when she is wearing her oxygen. Current home medications are reviewed, listed as accurate per her report. ROS is notable for the facial swelling, otherwise denies times 12 systems beyond her typical baseline. Related Data Home Medications ?Medication ?Instructions ?Recorded ?Confirmed albuterol sulfate 90 mcg/actuation 2 puff inhalation QID PRN 01/10/22 02/06/22 aerosol inhaler (ProAir HFA) furosemide 20 mg tablet 20 mg PO DAILY 01/10/22 02/06/22 ipratropium 0.5 mg-albuterol 3 mg 3 ml inhalation Q6H PRN 01/11/22 02/06/22 (2.5 mg base)/3 mL nebulization soln pramipexole 0.125 mg tablet 0.125 mg PO DAILY 01/11/22 02/06/22 sildenafil (pulm.hypertension) 20 20 mg PO DAILY 01/11/22 02/06/22 mg tablet Previous Rx's ?Medication ?Instructions ?Recorded furosemide 40 mg tablet 40 mg PO DAILY PRN prn #20 tabs 03/26/22 methylprednisolone 4 mg tablets in See Rx Instructions PO .COMPLEX 03/26/22 a dose pack (Medrol (Rivera)) #21 ea fluticasone propionate 50 2 spray intranasal DAILY #16 grams 06/25/22 mcg/actuation nasal spray,suspension (Flonase Allergy Relief) ipratropium 0.5 mg-albuterol 3 mg 3 ml inhalation QID #90 mL 06/25/22 (2.5 mg base)/3 mL nebulization soln prednisone 20 mg tablet See Rx Instructions .Route 06/25/22 .COMPLEX #20 tabs ipratropium 0.5 mg-albuterol 3 mg 3 ml inhalation Q4H PRN #90 mL 11/14/22 (2.5 mg base)/3 mL nebulization soln nebulizer accessories #1 ea 11/14/22 prednisone 20 mg tablet 40 mg (2 x 20 mg) PO DAILY 5 days 11/14/22 #10 tabs Allergies Allergy/AdvReac Type Severity Reaction Status Date / Time Sulfa (Sulfonamide Allergy Severe Verified 11/16/22 11:02 Antibiotics) [facility] Medical History Shortness of breath ?R06.02 - Shortness of breath (ICD-10) Constipation ?K59.00 - Constipation, unspecified (ICD-10) Hypomagnesemia ?E83.42 - Hypomagnesemia (ICD-10) Hemarthrosis ?M25.00 - Hemarthrosis, unspecified joint (ICD-10) Fracture of tibial plateau, closed ?S82.143A - Displaced bicondylar fracture of unspecified tibia, initial encounter for closed fracture (ICD-10) Fracture of ribs, multiple ?S22.49XA - Multiple fractures of ribs, unspecified side, initial encounter for closed fracture (ICD-10) Traumatic fracture of sternum ?S22.20XA - Unspecified fracture of sternum, initial encounter for closed fracture (ICD-10) Tobacco use ?Z72.0 - Tobacco use (ICD-10) Severe pulmonary hypertension ?I27.20 - Pulmonary hypertension, unspecified (ICD-10) CHF (congestive heart failure) ?I50.9 - Heart failure, unspecified (ICD-10) COPD (chronic obstructive pulmonary disease) ?J44.9 - Chronic obstructive pulmonary disease, unspecified (ICD-10) Social History Smoking Status: Current every day smoker What tobacco products do you use: cigarettes Smoking packs per day: 0.5 Smoking cigarettes per day: 10.0 Do you use any of these nicotine containing products: None Second hand tobacco smoke exposure: No How often do you have a drink containing alcohol: never AUDIT-C Alcohol total score: 0 Non-prescribed substance use: denies use Exam Const: Vital Signs, click to edit/add: Vital Signs - 24 hr 09/28/23 02:33 09/28/23 02:40 Temperature 98 F Pulse Rate [Pulse Oximeter] 110 H 100 Respiratory Rate 18 18 Blood Pressure [Ri ght Upper Arm] 119/82 Pulse Oximetry 73 L 83 L Oxygen Delivery Me thod Room Air OxyMask Fraction of Inspir ed Oxygen 5 Documenting provider has reviewed patient's vital signs: yes General appearance: comfortable Other: Speaks in full sentences without dyspnea. She does have some cyanosis to the lips which is not unexpected. Awake, alert, with normal mentation HENMT: Other: Scalp and header normal in appearance. There is some mild swelling to the right cheek as compared to the left. Eyes open and close normally, no swelling of the lids. There is no swelling of the lip, swelling is really just located in the right maxillary cheek area. Slight pink hue but no warmth. No well demarcated cellulitis. Jaw opens and closes normally. Inside the mouth the 2nd upper premolar is broken away with signs of swelling along the gum line. No drainage. No swelling of the tongue or other affected areas. Soft palate in oropharynx posteriorly are normal. Eye: Common normals: conjunctivae normal General eye: normal appearance of both eyes Conjunctiva: conjunctiva(e) normal Neck & C-Spine: Common normals: full ROM and no lymphadenopathy General: normal visual inspection Resp: Common normals: normal respiratory effort Other: Coarse breath sounds throughout but normal respiratory effort and air movement does seem adequate. Symmetric. Cardio: Common normals: regular rate and regular rhythm Rate: regular rate Rhythm: regular rhythm Other: Positive S1 and S2 with no obvious gallop. Does sound like there is a mid systolic murmur but not loud. Extremity: Other: Capillary refill is around 3 seconds but hands are warm. Neuro: Speech: speech normal Motor exam: no movement abnormalities noted Psych: Attitude: engaged Activity/motor behavior: appropriate eye contact Mood and affect: euthymic mood Skin: Common normals: no rashes or lesions noted General skin exam: no rashes or lesions noted Course Course ED Course: 53-year-old female with known dental abscess with interval worsening today and clerical failure to receive antibiotics. She is not exhibiting any signs of sepsis, severe cellulitis or dangerously spreading infection inter airway, brain or other structures. She is hypoxic but she is correct that she is at her baseline and she is not exhibiting any symptomatic features at this time. Will start patient on Augmentin, 1st dose given here in ED. Tramadol x1 for pain. She assures me that she does not drive due to the hypoxia which is reassuring. Her daughter will take her home. She has difficulty getting medications due to not driving, will prescribe the remainder of the supply through [facility] vending machine in the lobby. Counseled patient that unfortunately no oral antibiotic is going to relieve this infection. She will have to have surgical repair. Encouraged her to look in to [facility] but also continue checking with other sources for emergency dentistry. I let patient know that she should start to notice improvement in 24 hours if she is not noticing any improvement 36 hours, she should seek re-evaluation. If she is worsening, she needs to go to an ED that has or a facial surgical capabilities like [facility], others were reviewed. She verbalizes understanding and agreement of this. Okay to use Tylenol and/or ibuprofen for pain. Written instructions provided. She verbalizes understanding and agreement. Vital Signs Vital signs: Initial Vital Signs Temperature 98 F 09/28/23 02:33 Temperature Source Temporal Artery Scan 09/28/23 02:33 Pulse Rate 110 H 09/28/23 02:33 Respiratory Rate 18 09/28/23 02:33 Blood Pressure 119/82 09/28/23 02:33 Blood Pressure Mean 94 09/28/23 02:33 Blood Pressure Position Sitting 09/28/23 02:33 Pulse Oximetry 73 L 09/28/23 02:33 Oxygen Delivery Method Room Air 09/28/23 02:33 Vital Signs Temperature 98 F 09/28/23 02:33 Pulse Rate 110 H 09/28/23 02:33 Respiratory Rate 18 09/28/23 02:33 Blood Pressure 119/82 09/28/23 02:33 Pulse Oximetry 73 L 09/28/23 02:33 Oxygen Delivery Method Room Air 09/28/23 02:33 Temperature 98 F 09/28/23 02:33 Pulse Rate 100 09/28/23 02:40 Respiratory Rate 18 09/28/23 02:40 Blood Pressure 119/82 09/28/23 02:33 Pulse Oximetry 83 L 09/28/23 02:40 Oxygen Delivery Method OxyMask 09/28/23 02:40 Fraction of Inspired Oxygen 5 09/28/23 02:40 Medications Administered Medications: Generic Name Dose Route Start Last Admin Trade Name Freq PRN Reason Stop Dose Admin Amoxicillin/Clavulanate Potassium 875 mg 09/28/23 02:53 09/28/23 02:59 Amoxicillin/Clavulanate 875 Mg/125 Mg Tablet PO 09/28/23 02:54 875 mg ONCE ONE Administration Tramadol HCl 50 mg 09/28/23 02:53 09/28/23 02:59 Tramadol Hcl 50 Mg Tablet PO 09/28/23 02:54 50 mg ONCE ONE Administration Discharge Plan Discharge Clinical Impression: Dental abscess Patient Disposition: Home w/ Parent or Adult Condition: Stable Instructions: Dental Abscess (ED) Additional Instructions: As we discussed, no antibiotic is going to completely clear up this infection. Unfortunately, the only treatment is drainage of the abscess which is a dental procedure that we cannot perform in a small emergency department. Antibiotics will could certainly calmed down the infection and risk it is spreading most of the time. Augmentin is the best antibiotic choice. I have restarted this medication and placed you on a 10 day supply. As discussed, things really should start to improve in 24 hours but if they have not improved in 36 hours you should seek re-evaluation. Especially come in if you are having high fevers, difficulty breathing or swallowing or significant other worsening like chills. If you do need to be re-evaluated, please go to an emergency department that has or a facial surgery like [facility] or other similar facility. Those emergency department do have or a facial surgeons on-call that can treat the dental abscess if needed. Otherwise, please keep calling dental providers to see if you can get in sooner. You were given a small dose of tramadol tonight for pain. I am hoping that the antibiotics will calm down the inflammation and improve your pain by morning. It is okay to continue Tylenol and or ibuprofen. Your oxygen levels do seem stable for you. Please make sure your wearing her oxygen, especially with sleep. Please come in sooner if your symptoms worsen in the meantime. Activity Level: Activity as Tolerated Discharge Diet: Regular Prescriptions: No Action albuterol sulfate [ProAir HFA] 90 mcg/actuation HFA aerosol inhaler 2 puff INHALATION QID PRN furosemide 20 mg tablet 20 mg PO DAILY ipratropium-albuterol 0.5 mg-3 mg(2.5 mg base)/3 mL solution for nebulization 3 ml INHALATION Q6H PRN pramipexole 0.125 mg tablet 0.125 mg PO DAILY sildenafil (pulm.hypertension) 20 mg tablet 20 mg PO DAILY furosemide 40 mg tablet 40 mg PO DAILY PRN (Reason: prn) Qty: 20 2RF methylprednisolone [Medrol (Rivera)] 4 mg tablets,dose pack See Rx Instructions .ROUTE .COMPLEX Qty: 21 0RF Rx Instructions: orally per package directions (DME) nebulizer accessories Kit See Rx Instructions .Route Qty: 1 0RF Rx Instructions: As directed prednisone 20 mg tablet 40 mg PO DAILY 5 Days Qty: 10 0RF ipratropium-albuterol 0.5 mg-3 mg(2.5 mg base)/3 mL solution for nebulization 3 ml inhalation Q4H PRNQty: 90 0RF Rx Instructions: until breathing returns to target peak flow/parameters ipratropium-albuterol 0.5 mg-3 mg(2.5 mg base)/3 mL solution for nebulization 3 ml inhalation QID Qty: 90 0RF prednisone 20 mg tablet See Rx Instructions .ROUTE .COMPLEX Qty: 20 0RF Rx Instructions: 60 mg daily for 3 days then 40 mg daily for 4 days then 20 mg daily for 3 days fluticasone propionate [Flonase Allergy Relief] 50 mcg/actuation spray,suspension 2 spray intranasal DAILY Qty: 16 1RF Rx Instructions: administer into each nostril Follow Up/Referrals: Provider,Not a Local [Staff Physician] - Stand Alone Forms: [employer] Info Instructions
== END 2023-09-28 03:09 | disposition home or self-care (01) ==
PROVIDERS: Emergency Provider Family Medicine; PCP Nurse Practitioner Family
DX: K04.7 Periapical abscess without sinus (principal)
CPT/HCPCS: 99283; A9270

== ENCOUNTER 2023-10-30 20:45 | Outpatient (CLI) | payer MEDICAID, SELFPAY ==
--- OUTSIDE RECORDS SUMMARY | 2023-11-03 05:59 | XMS_ITS | Encounter Summary ---
Author Organization [facility] Address [address] [place] [address] Care Team Providers Care Vice President For Instruction Name Role Phone Ro Norton APRN, C.N.P., D.N.P. Primary Ca re Provider Reason for Visit * Reason Onset Date Comments Post Hospital Follow-up 11/02/2023 Discharg ed 11/01/23 Encounter Details Date Type Department Care Team (Latest Contact Info) Description 11/02/2023 Clinical Communication Department of Family Medicine, [facility], in [address] [phone] Lizbeth Mcneil R.N. [address] [place] [phone] Post Hospital Follow-up (Discharged 11/01/23) Social History Tobacco Use Types Packs/Day Years Used Date Smoking Tobacco: Every Day Cigarettes 0.5 30 Smokeless Tobacco: Never Comments:4-5 cigarettes a da y Alcohol Use Standard Drinks/Week Comments Not Currently 0 (1 standard drink = 0.6 oz pur e alcohol) ocassionally [facility] Utilities Answer Date Recorded In [...] any clubs o r organizations such as yarsanism groups, unions, fraternal [...] Answer Date Recorded PHQ-2 Score 2 07/31/2023 [facility] of Occupat ional Health - Occupational Stress [...] your living situation today? I have a [facility] place to live 11/01/2023 Education Answer [...] AM CDT Clinical Communication Virtual Review in [place], [place] [address] [place] [address] 11/15/2023 9:40 AM CDT Appointment Department of Laboratory Medicine and Pathology, [facility], in [place], [place] [address] [place] [address] Lubna Mcmillan M.D. [address] [place] [phone] 11/15/2023 10:10 AM CDT Appointment Department of Cardiovascular Diseases in [place], [place] [address] [place] [phone] Lubna Mcmillan M.D. [address] [place] [phone] Discharge Disposition: Home or Self Care 11/15/2023 1:00 PM CDT Appointment Department of Cardiac Rehabilitation in [place], [place] [address] [place] [phone] Lubna Mcmillan M.D. [address] [place] [phone] 11/15/2023 3:00 PM CDT Office Visit Department of Cardiovascular Medicine in [place], [place] [address] [place] [address] Lubna Mcmillan M.D. [address] [place] [phone] 11/17/2023 2:00 PM CDT Comprehensive Visit Department of Family Medicine, [facility], in [address] [phone] Ro Norton APRN, C.N.P., D.N.P. [address] [place] [phone] 11/21/2023 11:00 AM CDT Office Visit Department of Family Medicine, [facility], in [address] [phone] Ro Norton APRN, C.N.P., D.N.P. [address] [phone] documented as of this encounter Visit Diagnoses Not on filedocumented in this encounter Care Teams Vice President For Instruction Relationship Specialty Start Date End Date Ro Norton APRN, C.NLisandro., D.N.P. [address] [phone] PCP - General Family Medicine 05/07/19 documented as of this encounter
--- OUTSIDE RECORDS SUMMARY | 2023-11-03 05:59 | XMS_ITS ---
Author Organization [facility] Address [address] [place] [address] Care Team Providers Care Wire Mill Rover Name Role Phone Unavailable Unavailable Unavailable Surgery Details Not on file Complications Check Surgery Details section. Procedure Estimated Blood Loss Check Surgery Details section. Procedure Findings Check Surgery Details section. Procedure Specimens Taken Check Surgery Details section.
--- OUTSIDE RECORDS SUMMARY | 2023-11-03 05:59 | XMS_ITS | Referral Summary ---
Author Organization [facility] Address [address] [place] [address] Care Team Providers Care Online Advertising Director Name Role Phone Ro Norton APRN C.N.PRaffy, D.N.P. Primary Ca re Provider Source Comments Patient records contain information from all sites at [facility]. For routine questions regarding patient records, call [phone] during business hours, M-F 8:00 AM - 5:00 PM Central Time. Record requests for emergency care only can be directed to [phone] at any time.[facility] Encounters Date Type Department Care Team Description 11/02/2023 Clinical Communication Department of Family Medicine, [facility] [place], in [address] [phone] Lizbeth Mcneil R.N. Post Hospital Follow-up (Discharged 11/01/23) 10/31/2023 12:53 AM CDT - 11/01/2023 4:46 PM CDT Hospital Encounter [facility], [facility], [facility], Sixth Floor [address] [place] [phone] Whit Bhatti M.D. Jorge Sosa M.D. Acute Respiratory Failure With Hypoxia (HCC) (Primary Dx); Hypertension Pulmonary Primary (HCC) Discharge Disposition: Home or Self Care 10/30/2023 9:57 PM CDT - 10/31/2023 12:05 AM CDT Emergency [facility] [address] [place] [phone] Serjio Gonsalves APRN, C.N.P., D.N.P., M.S.N. Acute And Chronic Respiratory Failure With Hypoxia (HCC) (Primary Dx); Chronic Obstructive Pulmonary Disease Exacerbation (HCC); Acute Respiratory Failure With Hypercapnia (HCC) Discharge Disposition: [facility] 10/30/2023 Intake T TRANSFER [facility] 10/17/2023 Orders Only [facility] [address] [place] [phone] Ro Norton APRN, Bolivar.N.P., D.N.P. Screening Cancer Colon 10/03/2023 Orders Only [facility] [address] [place] [phone] Ro Norton APRN, C.N.P., D.N.P. Screening Cancer Colon 09/27/2023 Patient Self-Triage [facility] Symptom Pottery Machine Operator, Provider 09/27/2023 Patient Self-Triage [facility] Symptom Pottery Machine Operator, Provider 09/27/2023 Nurse Triage Department of Family [facility], [facility] [place], [address] [phone] Evelia Hernandez, EthanN. Med Question 09/27/2023 3:00 PM CDT Telemedicine Department of Family Medicine, [facility], in [address] [phone] Berna Snow APRN, C.N.P. Abscess Dental (Primary Dx) Discharge Disposition: Home or Self Care 09/11/2023 Clinical Communication Department of Family [facility], [facility] [place], [address] [phone] Ro Norton APRN, C.N.P., D.N.P. Rx Prior Authorization (ensure); Rx Denial (ENSURE ) 09/11/2023 Clinical Communication Pharmacy Prior Auth [id number] Salome Alfaro 09/07/2023 1:30 PM CDT Telemedicine Department of Family Medicine, [facility], in [place], [place] [address] [place] [address] Valentin Andrea M.D. Pain Teeth (Primary Dx) Discharge Disposition: Home or Self Care 08/25/2023 Refill Department of Family Medicine, [facility] [place], in [address] [phone] Ro Norton APRN, C.N.P., D.N.P. Med Refill 08/22/2023 Orders Only [facility] [address] [phone] Karine Coles, Pharm.D., R.Ph. 08/21/2023 Refill Department of Cardiovascular Medicine in [place], [place] [address] [place] [address] Lubna Mcmillan M.D. Med Refill 08/14/2023 9:30 AM CDT Telemedicine Department of Family Medicine, [facility], in [place], [place] [address] [place] [address] Tc Bee D.O. Pain Teeth (Primary Dx) [...] 90 tablet 11 04/21/2023 10/31/19 24 Discontinued Fannie DominguezKeith (Bacid) 1 billion cell- 250 mg per [...] times a day. 20 capsule 09/28/2023 10/31/19 Discontinued Active Problems Problem Noted Date Diagnosed [...] (07/01/2020): Added automatically from request for surgery [id number] Anemia Posthemorrhagic Acute (Blood Loss Anemia) 10/25/2019 [...] pur e alcohol) ocassionally [facility] Utilities Answer Date Recorded In the past 12 months has e [employer], gas, oil, or water [employer] threatened to shut off services in your [...] PHQ-2 Score 2 07/31/2023 [facility] of Occupat ional [facility] - Occupational Stress Questionnaire Answer Date [...] your living situation today? I have a [facility] place to live 11/01/2023 Education Answer Date [...] AM CDT Clinical Communication Virtual Review in [place], [place] [address] [place] [address] 11/15/2023 9:40 AM CDT Appointment Department of Laboratory Medicine and Pathology, [facility] in [place], [place] [address] [place] [address] Lubna Mcmillan M.D. [address] [place] [phone] 11/15/2023 10:10 AM CDT Appointment Department of Cardiovascular Diseases in [place], [place] [address] [place] [address] Lubna Mcmillan M.D. [address] [place] [phone] Discharge Disposition: Home or Self Care 11/15/2023 1:00 PM CDT Appointment Department of Cardiac Rehabilitation in [place], [place] [address] [place] [address] Lubna Mcmillan M.D. [address] [place] [address] 11/15/2023 3:00 PM CDT Office Visit Department of Cardiovascular Medicine in [place], [place] [address] [place] [address] Lubna Mcmillan M.D. [address] [place] [address] 11/17/2023 2:00 PM CDT Comprehensive Visit Department of Family Medicine, [facility] [place], in [address] [phone] Ro Norton APRN, C.N.P., D.N.P. [address] [place] [phone] 11/21/2023 11:00 AM CDT Office Visit Department of Family Medicine, [facility] [place], [address] [phone] Ro Norton APRN, C.N.P., D.N.P. [address] [place] [phone] Medical Devices Implanted Type Area Tankage Supervisor Device Identifier Shelf Expiration Date Model / Serial / Lot Osferion Bone Void Filler, 10 X 3 X 30 X 12 Mm Implanted:Qty : 1 on 10/24/2019 by Raudel Lewis M.D. at [facility] Hardware e.g. pins/screws/ rods Left: Tibia Arthrex 09/19/2023 [id number] / N/A / [id number] Scrw Tmx St Fthrd Nlck 3.5x38 - [id number] Implanted:Qty : 1 on 10/24/2019 by Raudel Lewis M.D. at [facility] Hardware e.g. pins/screws/ rods Left: Tibia Depuy Synthes [id number] / / Scrw Tmx St Fthrd Nlck 3.5x55 - [id number] Implanted:Qty : 1 on 10/24/2019 by Raudel Lewis M.D. at [facility] Hardware e.g. pins/screws/ rods Left: Tibia Depuy [employer]ynthes [id number] / / Scrw Tmx St Fthrd Nlck 3.5x65 - [id number] Implanted:Qty : 2 on 10/24/2019 by Raudel Lewis M.D. at [facility] Hardware e.g. pins/screws/ rods Left: Tibia Depuy Synthes [id number] / / Plt Ankl Mei 3h Lck 74.7x35.6 - [id number] Implanted:Qty : 1 on 10/24/2019 by Raudel Lewis M.D. at [facility] Hardware e.g. pins/screws/ rods Left: Tibia Rabia Biomet [id number] / / Scrw Dcp St Fthrd 3.5x75 - [id number] Implanted:Qty : 1 on 10/24/2019 by Raudel Lewis M.D. at [facility] Hardware e.g. pins/screws/ rods Left: [...] 10/31/2023 2:58 AM CDT RESPIRATORY PANEL, PCR, PACKAGING DESIGNER Routine 10/31/2023 2:18 AM CDT CRITICAL CARE [...] M.D. LAB BLOOD ADD-ON Performing Organization Address [facility] [place] [address] * (ABNORMAL) Potassium (11/01/2023 7:17 AM CDT) Potassium, S 5.3(H) 3.6 - 5.2 mmol/L 11/01/2023 8:16 AM CDT DTL Comment: Specimen collected by special instruction procedure due to recurrent hemolysis. Blood 11/01/2023 7:17 AM CDT 11/01/2023 7:43 AM CDT Corin Chauhan M.D. LAB BLOOD ADD-ON Performing Organization Address [facility] Co de Phone Number [facility] [address] [place] [address] * Bilirubin, Direct (11/01/2023 7:17 AM CDT) Bilirubin, Direct, S 0.2 0.0 - 0.3 mg/dL 11/01/2023 8:16 AM CDT DTL Comment: Specimen collected by special instruction procedure due to recurrent hemolysis. Blood 11/01/2023 7:17 AM CDT 11/01/2023 7:43 AM CDT Corin Chauhan M.D. LAB BLOOD ADD-ON Performing Organization Address [facility]/ZIP Co de Phone Number [facility] [address] [place] [address], [facility] [address] [place] [address] * (ABNORMAL) HCV RNA Detect / Quant, Serum (11/01/2023 3:27 AM CDT) Pathologist [facility] HCV RNA Detect/Quant, S 524070(A ) Undetected IU/mL 11/01/2023 1:32 PM CDT [facility] Comment: Result in log IU/mL is 5.72. ----ADDITIONAL INFORMATION---- The quantification range of this assay is 15 to 100,000,000 IU/mL (1.18 log to 8.00 log IU/mL). Testing was performed using the sandra HCV test ([employer] Blood (Blood, Venous) 11/01/2023 3:27 AM CDT 11/01/2023 8:12 AM CDT Sergei Palomares M.D. LAB MICROBIOLOGY - BLOOD ORDERABLES Performing Organization Address [facility] Co de Phone Number [facility] [address] [place] [address] [facility] [address] [place] [address] [place] [address] * (ABNORMAL) CBC with Differential, Blood (11/01/2023 3:27 AM CDT) Only the most recent of3 resultswithin the time period is included. Pathologist [facility] Hemoglobin 17.1(H) 11.6 - 15.0 g/dL 11/01/2023 [...] LAB BLOOD ADD-ON [facility] [address] [place] [address], [facility] DTL [facility] [address] [place] [address] [facility]3] [address] [place] [address] * (ABNORMAL) Hepatic Function Panel (11/01/2023 3:26 [...] CDT Sergei Palomares M.D. LAB BLOOD ADD-ON [address] [address], [facility] [address] [address] * (ABNORMAL) Basic Metabolic Panel (11/01/2023 3:26 [...] LAB BLOOD ADD-ON Performing Organization Address City/[facility]/ZIP Co de Phone Number [facility] [address] [place] [address], [facility] [place] [address] * (ABNORMAL) Staph aureus / MRSA, Nasal, PCR (10/31/2023 2:27 PM CDT) Staphylococcus aureus, PCR Positive(A) Negative 10/31/2023 4:08 PM CDT DTL MRSA, PCR Negative Negative 10/31/2023 4:08 PM CDT DTL Comment: Methicillin (oxacillin)-susceptible Staphylococcus aureus complex detected. Swab (Nares) 10/31/2023 2:27 PM CDT 10/31/2023 2:51 PM CDT Sergei Palomares M.D. LAB MICROBIOLOGY - GENERAL ORDERABLES Performing Organization Address City/[facility]/ZIP Co de Phone Number [facility] [address] [place], [place] [phone] [place] [address] [facility] [address] [place] [address] * CT Chest Angiogram and Pulmonary Arteries [...] Corin Chauhan M.D. LAB BLOOD NON ADD-ON [facility] 200 [place] [address], [facility] 200 [place] [address] * (ABNORMAL) Blood Gas without Coox, Arterial (10/31/2023 3:08 AM CDT) Pathologist [facility] pO2 52(L) 83 - 108 mm Hg [...] Corin Chauhan M.D. LAB BLOOD NON ADD-ON [facility] [address] [place] [address], [facility] [address] [place] [address] * (ABNORMAL) Erythropoietin (EPO) (10/31/2023 2:58 AM CDT) Erythropoietin (EPO), S 18.8(H) 2.6 - 18.5 mIU/mL 10/31/2023 10:11 AM CDT [facility] Blood 10/31/2023 2:58 AM CDT 10/31/2023 8:56 AM CDT Corin Chauhan M.D. LAB BLOOD ADD-ON Performing Organization Address City/[facility]/ZIP Co de Phone Number [facility] [address] [place] [address] [facility] [address] [place] [address] * (ABNORMAL) Respiratory Panel, PCR, Nasopharyngeal (10/31/2023 2:18 AM CDT) Pathologist [facility] Specimen Source NASOPHARYNGEAL SWAB 10/31/2023 3:31 AM CDT DTL Adenovirus Undetected Undetected 10/31/2023 3:31 AM CDT DTL Coronavirus 229E Undetected Undetected 10/31/19 24 3:31 AM CDT DTL Coronavirus HKU1 Undetected Undetected 10/31/19 3:31 AM CDT DTL Coronavirus NL63 Undetected Undetected 10/31/19 24 3:31 AM CDT DTL Coronavirus OC43 Undetected Undetected 10/31/19 24 3:31 AM CDT DTL SARS Coronavirus-2 Undetected [...] using the FDA-Cleared FilmArray Respiratory Panel 2.1 ([employer]). Swab (Nasopharynx) 10/31/2023 2:18 AM CDT 10/31/2023 2:35 AM CDT Corin Chauhan M.D. LAB MICROBIOLOGY - G ENERAL ORDERABLES [facility] [address] [place] [address], [facility] DTL 200 [facility] 200 [place] [address] * Critical Care (10/30/2023 11:19 PM CDT) Narrative Serjio Gonsalves APRN, C.N.P., D.N.PRaffy, M.S.N. - 10/30/2023 11:19 PM CDT Serjio Gonsalves APRN, NinoskaNDean, MileN.PRaffy, M.S.N. ? 10/30/2023 11:20 PM Critical Care Performed by: Serjio Gonsalves APRN, NinoskaNDean, MileN.PRaffy, M.S.N. Authorized by: Serjio Gonsalves APRN, C.NDean, MileN.PRaffy, M.S.N. ?? Critical care provider statement: Critical [...] in my specialty: no ?? Ninoska Bradford APRNNDean, MileNDean, M.S.N . PROCEDURE/MINOR SURGICAL ORDERABLES * [...] newconsolidative opacity identified. Serjio Gonsalves APRN, C.N.P., MileN.P., M.S.N . IMG DIAGNOSTIC IMAGING PROCEDURES * Lactate for Sepsis with Reflex (10/30/2023 10:28 PM CDT) Lactate, P 2.2 0.5 - 2.2 mmol/L 10/30/2023 10:55 PM CDT CNFL Blood (Blood, Venous) 10/30/2023 10:28 PM CDT 10/30/2023 10:40 PM CDT Serjio Gonsalves APRN, C.N.P., Katelynn.N.P., M.S.N . LAB BLOOD NON ADD-ON [facility] [address] [place] [address], [facility] in [address] [address] * Troponin T, Baseline with 2 Hour/6 Hour Reflex Biomarker Panel (10/30/2023 10:28 PM CDT) Troponin T, Baseline, 5th gen 10 <=10 ng/L 10/30/2023 11:07 PM CDT CNFL Blood (Blood, Venous) 10/30/2023 10:28 PM CDT 10/30/2023 10:52 PM CDT Serjio Gonsalves APRN, C.N.P., MileN.P., M.S.N . LAB BLOOD TROPONIN [facility] [address] [place] [address], [address] [address] * (ABNORMAL) Venous Blood Gas with Lactate, [...] CDT 10/30/2023 10:33 PM CDT Serjio Gonsalves APRN C.N.P., D.N.P., M.S.N . LAB POCT ORDERABLES - DEVICE [facility] [address] [place] [address], [facility] in [address] [place] [address] * (ABNORMAL) NT-Pro B-Type Natriuretic Peptide (BNP) [...] 10:26 PM CDT 10/30/2023 10:57 PM CDT Ninoska Bradford APRNNLisandro., D.N.P., M.S.N . LAB BLOOD ADD-ON [facility] [address] [place] [address], [facility] in [address] [address] * (ABNORMAL) Prothrombin Time (PT) (10/30/2023 10:26 PM CDT) Prothrombin Time, P 13.1(H) 9.4 - 12.5 sec 10/30/2023 10:53 PM CDT CNFL INR 1.1 0.9 - 1.1 10/30/2023 10:53 PM CDT CNFL Comment: ----ADDITIONAL INFORMATION---- Standard intensity warfarin therapeutic range: 2.0 to 3.0 ?? High intensity warfarin therapeutic range: 2.5 to 3.5 Blood (Blood, Venous) 10/30/2023 10:26 PM CDT 10/30/2023 10:50 PM CDT Gorge Bradford APRN.P., Katelynn.N.P., M.S.N . LAB BLOOD ADD-ON Performing Organization Address City/[facility]/ZIP Co de Phone Number [address] [address], [address] [address] * SARS Coronavirus 2, PCR Rapid Symptomatic (10/30/2023 9:50 PM CDT) Pathologist [facility] SARS CoV-2, PCR, Rapid, V Undetected Undetected 10/30/2023 10:46 PM CDT CNFL SARS Coronavirus 2, Source, Rapid Swab, Nasopharynx 10/30/2023 10:43 PM CDT CNMN Swab (Nasopharynx) 10/30/2023 9:50 PM CDT 10/30/2023 10:43 PM CDT Serjio Gonsalves APRN, C.N.P., MileNRaffyP., M.S.N . LAB MICROBIOLOGY - GENERAL ORDERABLES Performing Organization Address City/[facility]/ZIP Co de Phone Number [address] [address], [facility] in [address] [address] * Influenza A/B and RSV, PCR, Point of Care (10/30/2023 9:50 PM CDT) Pathologist [facility] Influenza A, POCT Negative Negative 10/30/2023 11:55 PM CDT [facility]MN Influenza B, POCT Negative Negative 10/30/2023 11:55 PM CDT CNFL Resp Syncytial Virus, POCT Negative Negative 10/30/2023 11:55 PM CDT [facility]MN Swab (Nasopharynx) 10/30/2023 9:50 PM CDT 10/30/2023 10:43 PM CDT Serijo Gonsalves APRN, C.N.P., Katelynn.N.P., M.S.N . LAB POCT ORDERABLES - DEVICE Performing Organization Address [facility] Co de Phone Number [facility] [address] [place] [address], [facility] in [address] [address] * ECG 12 Lead (10/30/2023 9:43 PM CDT) Ventricular Rate ECG/Min 74 BPM MUSE NV Interval 146 ms MUSE QRSD Interval 120 ms MUSE QT Interval 434 ms MUSE QTC Interval 481 ms MUSE P [place] 70 degrees MUSE R [place] 108 degrees MUSE T Wave [place] 63 degrees MUSE 10/30/2023 9:43 PM CDT [...] has changed Reviewed by PRAKASH Vargas Serjio Major MORA C.NRaffyP., D.N.P., M.S.N . ECG ORDERABLES Performing Organization Address City/[facility] Co de Phone Number MUSE NA * Lipid Panel (07/23/2021 8:56 AM CDT) Cholesterol, Total 106 mg/dL 2021 9:35 AM CDT [facility] Comment: ----REFERENCE VALUE---- Desirable: < 200 Borderline [...] 07/23/2021 9:00 AM CDT Ro Norton APRN, C.N.P., D.N.P. LAB BLOOD ADD-ON [facility] [address] [place] [address], [facility] [address] * HPV with Genotyping, PCR, ThinPrep (07/23/2021 [...] 8:24 AM CDT 07/26/2021 12:56 PM CDT Ninoska Borden APRNN.PRaffy, D.N.P. LAB MICROBIOLOGY - GENERAL ORDERABLES [facility] [address] [place] [address], [place] ECLR [facility] [place] [address] [place] [address] from Last 3 Months or Most Recently Relevant to Health Maintenance Advance Directives For more information, please contact: [phone] * Full Code (Latest Code Status on [...] Due to: Patient not available Care Teams Online Advertising Director Relationship Specialty Start Date End Date Ro Norton APRN, C.N.P., D.N.P. [address] [phone] PCP - General Family Medicine 05/07/19
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
--- OUTSIDE RECORDS SUMMARY | 2023-11-03 06:00 | XMS_ITS | Encounter Summary ---
Author Organization [facility] Address [address] [place] [address] Care Team Providers Care Helminthologist Name Role Phone Ro Norton APRN, C.N.P., D.N.P. 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 Never 03/25/2022 Do you belong to [...] Recorded PHQ-2 Score 2 07/31/2023 [facility] Questionnaire Answer Date [...] your living situation today? I [facility] a [facility] 06/06/2023 Education Answer [...] AM CDT Clinical Communication Virtual Review in [place], [place] [address] [place] [phone] 11/15/2023 9:40 AM CDT Appointment Department of Laboratory Medicine and Pathology, [facility] in [place], [place] [address] [place] [phone] Lubna Mcmillan M.D. [address] [place] [phone] 11/15/2023 10:10 AM CDT Appointment Department of Cardiovascular Diseases in [place], [place] [address] [place] [phone] Lubna Mcmillan M.D. [address] [place] [phone] Discharge Disposition: Home or Self Care 11/15/2023 1:00 PM CDT Appointment Department of Cardiac Rehabilitation in [place], [place] [address] [place] [address] Lubna Mcmillan M.D. [address] [place] [address] 11/15/2023 3:00 PM CDT Office Visit Department of Cardiovascular Medicine in [place], [place] [address] [place] [phone] Lubna Mcmillan M.D. [address] [place] [phone] 11/17/2023 2:00 PM CDT Comprehensive Visit Department of Family Medicine, [facility], in [address] [phone] Ro Norton APRN, C.N.P., D.N.P. [address] [place] [phone] 11/21/2023 11:00 AM CDT Office Visit Department of Family Medicine, [facility], in [address] [phone] Ro Norton APRN, C.N.P., D.N.P. [address] [place] [phone] documented as of this encounter Visit Diagnoses Not on filedocumented in this encounter Care Teams Helminthologist Relationship Specialty Start Date End Date Ro Norton APRN C.N.P., D.N.P. [address] [place] [phone] PCP - General Family Medicine 05/07/19 documented as of this encounter
--- OUTSIDE RECORDS SUMMARY | 2023-11-03 06:00 | XMS_ITS | Encounter Summary ---
Author Organization [facility] Address [address] [place] [address] Care Team Providers Care Street Railway Line Installer Name Role Phone Ro Norton APRN, C.N.P., D.N.P. Primary Ca re Provider Reason for Visit * Reason Onset Date Comments Med Question 09/27/2023 Encounter Details Date Type Department Care Team (Late st Contact Info) Description 09/27/2023 Nurse Triage Department of Family Medicine, [facility], in [address] [phone] Evelia Hernandez, R.N. [address] [place] [phone] Med Question Social History Tobacco Use Types Packs/Day Years Used Date Smoking Tobacco: Every Day Cigarettes 0.5 30 Smokeless Tobacco: Never Comments:4-5 cigarettes a da y Alcohol Use Standard Drinks/Week Comments Not Currently 0 (1 standard drink = 0.6 oz pur e alcohol) ocassionally [facility] Utilities Answer Date Recorded In the [...] How often do you attend chur or presybeterian services? Never 03/25/2022 Do you belong to any clubs o r organizations such as zoroastrianism groups, unions, fraternal [...] PHQ-2 Score 2 07/31/2023 [facility] [place] of Occupat ional Health - Occupational Stress [...] your living situation today? I have a [facility] place to live 06/06/2023 Education Answer Date [...] AM CDT Clinical Communication Virtual Review in [place], [place] [address] [place] [phone] 11/15/2023 9:40 AM CDT Appointment Department of Laboratory Medicine and Pathology, [facility] in [place], [place] [address] [place] [phone] Lubna Mcmillan M.D. [address] [place] [phone] 11/15/2023 10:10 AM CDT Appointment Department of Cardiovascular Diseases in [place], [place] [address] [place] [phone] Lubna Mcmillan M.D. [address] [place] [phone] Discharge Disposition: Home or Self Care 11/15/2023 1:00 PM CDT Appointment Department of Cardiac Rehabilitation in [place], [place] [address] [place] [phone] Lubna Mcmillan M.D. [address] [place] [phone] 11/15/2023 3:00 PM CDT Office Visit Department of Cardiovascular Medicine in [place], [place] [address] [place] [phone] Lubna Mcmillan M.D. [address] [place] [phone] 11/17/2023 2:00 PM CDT Comprehensive Visit Department of Family Medicine, [facility], in [address] [phone] Ro Norton APRN, C.N.P., D.N.P. [address] [place] [phone] 11/21/2023 11:00 AM CDT Office Visit Department of Family Medicine, [facility], in [address] [place] [phone] Ro Norton APRN, C.N.Kirsty, D.N.P. [address] [place] [phone] documented as of this encounter Visit Diagnoses Not on filedocumented in this encounter Care Teams Street Railway Line Installer Relationship Specialty Start Date End Date Ro Norton APRN, C.N.Taylor., D.N.P. [address] [place] [phone] PCP - General Family Medicine 05/07/19 documented as of this encounter
--- OUTSIDE RECORDS SUMMARY | 2023-11-03 06:00 | XMS_ITS | Encounter Summary ---
Author Organization [facility] Address [address] [place] [address] Care Team Providers Care Inventory Manager Name Role Phone Ro Norton APRN, C.N.P., D.N.P. Primary Ca re Provider Reason for Visit * Auth/Cert (Routine) Specialty Diagnoses / Procedures Referred By Maria L t Referred To Contact Diagnoses Acute Respiratory Failure With Hypoxia (HCC) Hypoxic resp failure Procedures DIR Referral ID Status Reason Start Date Expiration Date Visits Re quested Visits Authorized [id number] 1 1 Encounter Details Date Type Department Care Team (Latest Contact Info) Description 10/31/2023 12:53 AM CDT - 11/01/2023 4:46 PM CDT Hospital Encounter [facility], [facility], [facility], Sixth Floor [address] [place] [phone] Whit Bhatti M.D. [address] [place] [phone] Jorge Sosa M.D. [address] [place] [phone] Acute Respiratory Failure With Hypoxia (HCC) (Primary Dx); Hypertension Pulmonary Primary (HCC) Discharge Disposition: Home or Self Care Social History Tobacco Use Types Packs/Day Years Used Date Smoking Tobacco: Every Day Cigarettes 0.5 30 Smokeless Tobacco: Never Comments:4-5 cigarettes a da y Alcohol Use Standard Drinks/Week Comments Not Currently 0 (1 standard drink = 0.6 oz pur e alcohol) ocassionally [facility] Utilities Answer Date Recorded In the past 12 months has e uromovie, gas, oil, or water [employer] threatened to shut off services in your [...] often do you attend chur ch or restoration services? Never 03/25/2022 Do you belong to any clubs o r organizations such as presybeterian groups, unions, fraternal [...] Answer Date Recorded PHQ-2 Score 2 07/31/2023 [facility] [place] of Occupat ional Health - Occupational Stress [...] your living situation today? I have a [facility] place to live 11/01/2023 Education [...] PM CDT DISCHARGE SUMMARY BRIEF OVERVIEW Hospital: [facility] Discharge Provider: Whit Bhatti M.D. Primary Team: [facility] Medicine 1 Primary Care Providers: Ro Norton, MORGAN, C.N.PRaffy, DRaffy* (General) [address] [place] [phone] Primary Care Provider Primary Care Provider Other [...] prednisone (steroid) prescriptions have been sent to [facility] in [place]. Pleasepick them up tonight, 11/01/2023. - Start [...] back to your normal - Please call [phone] or the [facility] general number ([phone]) to schedule an appointment for gastroenterology at [...] Home medications: Held: vit C, Advair, lasix E COMMERCE DIRECTOR: RASS 0, O x 3, pain 0 [...] contact (babysitting her grandkid). Patient lives in [place], and was transferred from [place] to [facility]. The patient's background medical history includes COPD [...] M.D. - 10/31/2023 12:51 AM CDT [facility] Medicine 1 H&P NOTE SUBJECTIVE Brief Summary: [...] Bedside ultrasound showed biventricular enlargement. Contacted [facility], who gave IV solu-medrol, lasix 0mg, [...] / PLAN Ms. Schulz is hospitalized on [facility] Medicine 1 for evaluation and management [...] Diet: low sodium diet. Plan discussed with [facility] Medicine 1 Electroencephalograph Technologist, Dr. oJrge López, who was present during rachel portions of the evaluation today. Please page the [facility] Medicine 1 [place] [phone] with any questions. Corin Chauhan MD Neurology PGY-1 Pager [phone] 10/31/23 12:51 AM CDT documented in this encounter Consult Notes * Chrystal Delgadillo M.S.W., LJose.S.W. - 11/01/2023 3:58 PM CDTAssociated Order(s): IP CONSULT TO CARE MANAGEMENT SUBJECTIVE Social Work met with the patient on [address] Room 520 to address the care management consult for home oxygen and discharge planning. The patient was sleeping but woke when social work entered the patients room. The patient confirmed that she has [facility] for her oxygen supply company. A reconnection was completed. The patient has new oxygen needs and will need a larger concentrator at home. [facility] was contacted and the soonest they could deliver a concentrator would be AM. The patient would like to discharge home today. [facility] is okay with patient picking up the larger concentrator on her way home to [place], [place]. The patient is being transported by [employer] ([phone]). Jaspreet at [employer] approved the extra stop at [facility]. He requested that [facility] be notified that there is an add-on (extra stop). [facility] that set up the transport was contacted and asked to contact [facility] about the add-on. The patient stated she will be fine getting into her home independently and that her daughter is home and can assist with the new concentrator. OBJECTIVE The patient resides in her [place], [place] home with her adult daughter. The patient presented to [facility] ED on 10/31/23 due to hypoxia. She was transferred to [facility] and admitted to the ICU on [address] due to a primary medical problem of Acute Respiratory Failure with Hypoxia. She is medically ready to discharge home and will be discharging from the ICU. [employer] will provide transportation. ASSESSMENT / PLAN ASSESSMENT The patient was oriented x 3. She appeared tired. Her thoughts were intact and linear. Her speech was within normal limits for volume, rhythm, and tone. PLAN - The patient will be discharging from the ICU to her [place], [place] home today, 11/01/23. - The patient will be transported by [employer] ([phone]). - Patient has agreed to stop by [employer] on her way home and tack picker the larger concentrator that she needs. - Social Work will continue to follow for any new discharge needs. Oxygen Reconnect: Durable Medical Equipment - Admitted Since 10/31/2023 Service Provider Selected Services Address Phone Fax Patient Preferred [facility] Durable Medical Equipment [phone] [facility] [phone] -- Contact: [facility] Respiratory Equipment : [...] AM CDT Clinical Communication Virtual Review in [address] [phone] 11/15/2023 9:40 AM CDT Appointment Department of Laboratory Medicine and Pathology, [facility] in [address] [phone] Lubna Wren M.D. [address] [place] [phone] 11/15/2023 10:10 AM CDT Appointment Department of Cardiovascular Diseases in [address] [phone] Lubna Wren M.D. [address] [place] [phone] Discharge Disposition: Home or Self Care 11/15/2023 1:00 PM CDT Appointment Department of Cardiac Rehabilitation in [address] [phone] Lubna Wren M.D. [address] [place] [phone] 11/15/2023 3:00 PM CDT Office Visit Department of Cardiovascular Medicine in [place], [place] [address] [place] [phone] Lubna Wren M.D. [address] [place] [phone] 11/17/2023 2:00 PM CDT Comprehensive Visit Department of Family Medicine, [facility], in [address] [phone] Ro Norton APRN C.N.P., D.N.P. [address] [place] [phone] 11/21/2023 11:00 AM CDT Office Visit Department of Family Medicine, [facility], in [address] [phone] Ro Norton APRN, C.N.P., D.N.P. [address] [place] [phone] Scheduled Orders Name Type Priority Associated Diagnoses [...] 10/31/2023 2:58 AM CDT RESPIRATORY PANEL, PCR, FINANCIAL SALES ASSOCIATE Routine 10/31/2023 2:18 AM CDT documented in this encounter Results * (ABNORMAL) Potassium (11/01/2023 7:17 AM CDT) Potassium, S 5.3(H) 3.6 - 5.2 mmol/L 11/01/2023 8:16 AM CDT DTL Comment: Specimen collected by special instruction procedure due to recurrent hemolysis. Blood 11/01/2023 7:17 AM CDT 11/01/2023 7:43 AM CDT Corin Chauhan M.D. LAB BLOOD ADD-ON Performing Organization Address [facility] Co de Phone Number [facility] 200 [place] [address], [facility] 200 [place] [address] * (ABNORMAL) AST (Aspartate Aminotransferase) (11/01/2023 7:17 [...] M.D. LAB BLOOD ADD-ON Performing Organization Address [facility] Co de Phone Number [facility] 200 [place] [address], [facility] 200 [place] [address] * Bilirubin, Direct (11/01/2023 7:17 AM CDT) Bilirubin, Direct, S 0.2 0.0 - 0.3 mg/dL 11/01/2023 8:16 AM CDT DTL Comment: Specimen collected by special instruction procedure due to recurrent hemolysis. Blood 11/01/2023 7:17 AM CDT 11/01/2023 7:43 AM CDT Corin Chauhan M.D. LAB BLOOD ADD-ON [facility] [address] [place] [address], [facility] DTL [facility] [address] [place] [address] * (ABNORMAL) CBC with Differential, Blood (11/01/2023 [...] Chauhan M.D. LAB BLOOD ADD-ON [facility] [address] [place] [address], [place] DTL [facility] [address] [place] [address] [facility] 200 [place] [address] * (ABNORMAL) HCV RNA Detect / Quant, Serum (11/01/2023 3:27 AM CDT) [facility] HCV RNA Detect/Quant, S [id number](A ) Undetected IU/mL 11/01/2023 1:32 PM CDT [facility] Comment: Result in log IU/mL is 5.72. ----ADDITIONAL INFORMATION---- The quantification range of this assay is 15 to 100,000,000 IU/mL (1.18 log to 8.00 log IU/mL). Testing was performed using the sandra HCV test ([employer] Blood (Blood, Venous) 11/01/2023 3:27 AM CDT 11/01/2023 8:12 AM CDT Sergei Palomares M.D. LAB MICROBIOLOGY - BLOOD ORDERABLES Performing Organization Address City/[facility]/ZIP Co de Phone Number [facility] [place] [address] [place] [address] [facility] [address] [place] [address] [place] [address] * (ABNORMAL) Basic Metabolic Panel (11/01/2023 3:26 AM CDT) [facility] Potassium, S CANCELED mmol/L 11/01/2023 4:44 AM [...] CDT Corin Chauhan M.D. LAB BLOOD ADD-ON [address] [address], [facility] [address] [address] * (ABNORMAL) Hepatic Function Panel (11/01/2023 3:26 [...] M.D. LAB BLOOD ADD-ON Performing Organization Address City/[facility]/[place] [address] * (ABNORMAL) Staph aureus / MRSA, Nasal, PCR (10/31/2023 2:27 PM CDT) Pathologist [facility] Staphylococcus aureus, PCR Positive(A) Negative 10/31/2023 4:08 PM CDT DTL MRSA, PCR Negative Negative 10/31/2023 4:08 PM CDT DTL Comment: Methicillin (oxacillin)-susceptible Staphylococcus aureus complex detected. Swab (Nares) 10/31/2023 2:27 PM CDT 10/31/2023 2:51 PM CDT Sergei Palomares M.D. LAB MICROBIOLOGY - GENERAL ORDERABLES Performing Organization Address City/[facility]/[place] [address] * (ABNORMAL) Hepatic Function Panel (10/31/2023 12:12 PM CDT) Pathologist [facility] Bilirubin, Total, S 0.6 0.0 - 1.2 mg/dL 10/31/2023 1:36 PM CDT DTL Bilirubin, Direct, S CANCELED mg/dL 10/21 2:01 PM CDT DTL Comment: Specimen was hemolyzed. Provider contacted at [phone] and asked to cancel without redraw. 10/31/2023 ?? 14:00 HEMATOLOGY TECHNICIAN Result canceled by the ancillary. Aspartate Aminotransferase (AST), S CANCELED U/L 10/31/2023 2:01 PM CDT DTL Comment: Specimen was hemolyzed. Provider contacted at [phone] and asked to cancel without redraw. 10/31/2023 ?? 14:00 HEMATOLOGY TECHNICIAN Result canceled by the ancillary. Alanine Aminotransferase [...] CDT Corin Chauhan M.D. LAB BLOOD ADD-ON [facility] [address] [place] [address], [facility] DTL [facility] [address] [place] [address] * CT Chest Angiogram and Pulmonary Arteries [...] to assess for resolution. Sergei Palomares M.D. [facility] PROCEDURES * (ABNORMAL) Basic Metabolic Panel (10/31/2023 3:14 AM CDT) Pathologist [facility] Potassium, S 5.0 3.6 - 5.2 mmol/L [...] CDT Corin Chauhan M.D. LAB BLOOD ADD-ON [facility] [address] [place] [address], [facility] [address] [place] [address] * (ABNORMAL) CBC with Differential, Blood (10/31/2023 [...] Chauhan M.D. LAB BLOOD ADD-ON [facility] [address] [place] [address], [facility] DTL [facility] [address] [place] [address] [facility] [address] [place] [address] * Patient Status (10/31/2023 3:08 AM CDT) O2 Flow 10.0L L/min 10/31/2023 3:14 AM CDT [facility] Comment:REVISED RESULTS Device NC 10/31/2023 3:14 AM CDT [facility] Comment:REVISED RESULTS Spont. breaths/min 15 10/31/2023 3:14 AM CDT [facility] Comment:REVISED RESULTS Blood 10/31/2023 3:08 AM CDT 10/31/2023 3:08 AM CDT Corin Chauhan M.D. LAB BLOOD NON ADD-ON [facility] [address] [place], [place] [phone] [place] [address] 200 [place] [address] * (ABNORMAL) Blood Gas without Coox, Arterial [...] M.D. LAB BLOOD NON ADD-ON [facility] [address] [place] [address], [facility] [address] [place] [address] * (ABNORMAL) Erythropoietin (EPO) (10/31/2023 2:58 AM CDT) Erythropoietin (EPO), S 18.8(H) 2.6 - 18.5 mIU/mL 10/31/2023 10:11 AM CDT [facility] Blood 10/31/2023 2:58 AM CDT 10/31/2023 8:56 AM CDT Corin Chauhan M.D. LAB BLOOD ADD-ON [facility] [address] [place] [address] [facility] [address] [place] [address] * (ABNORMAL) Hepatic Function Panel (10/31/2023 2:58 [...] CDT Corin Chauhan M.D. LAB BLOOD ADD-ON [facility] [address] [place] [address], [place] DTL [facility] [address] [place] [address] * (ABNORMAL) Respiratory Panel, PCR, Nasopharyngeal (10/31/2023 [...] using the FDA-Cleared FilmArray Respiratory Panel 2.1 ([employer]). Swab (Nasopharynx) 10/31/2023 2:18 AM CDT 10/31/2023 2:35 AM CDT Corin Chauhan M.D. LAB MICROBIOLOGY - [facility] ORDERABLES Performing Organization Address City/State/[facility] Co de Phone Number [facility] 200 [place] [address], [facility] DTL 200 [facility] 200 [place] [address] documented in this encounter Visit Diagnoses Diagnosis [...] indication: Opioid Use Disorder (OUD), Continuation of vtjvd-ez-bjdgylizd therapy? Yes Given 10/31/2023 11:41 AM CDT 4 mg of buprenorphine buprenorphine-naloxo ne 4-1 mg per SL Film 4 mg of buprenorphine (Suboxone) 4 mg of buprenorphine (1 Film), sublingual, Once, On Mon10/31/23 at 1115, For 1 dose, Select indication: Opioid Use Disorder (OUD), Continuation of phpzs-ll-mgbdccwna therapy? Yes Given 10/31/2023 11:42 AM CDT 4 mg of buprenorphine buprenorphine-naloxo ne 8-2 mg per SL Film 8 mg of buprenorphine (Suboxone) 8 mg of buprenorphine (1 Film), sublingual, Daily, First dose on Mon11/01/23 at 0900, Select indication: Opioid Use Disorder (OUD), Continuation of qbpni-nw-ijmzbkwmh therapy? Yes Given 11/01/2023 9:24 AM CDT [...] Patient not of reproductive potential, Continuation of dslvq-qx-yenouyjrk therapy? Yes, Is the patient under the [...] chloride 0.65 % nasal spray 1 spray ([place]) 1 spray, each nostril, As needed, congestion, [...] indication: Opioid Use Disorder (OUD), Continuation of gdpjb-rg-nuhlmfnpe therapy? Yes 1141 (Given - Provider: Silvina Myers R.N.) buprenorphine-naloxone 4-1 mg per SL Film 4 mg of buprenorphine (Suboxone) (COMPLETED) 4 mg of buprenorphine (1 Film), sublingual, Once, On Mon10/31/23 at 1115, For 1 dose, Select indication: Opioid Use Disorder (OUD), Continuation of rknpd-da-ackhdcdzq therapy? Yes 1142 (Given - Provider: Silvina Myers R.N.) buprenorphine-naloxone 8-2 mg per SL Film 8 mg of buprenorphine (Suboxone) 8 mg of buprenorphine (1 Film), sublingual, Daily, First dose on Mon11/01/23 at 0900, Select indication: Opioid Use Disorder (OUD), Continuation of lbhvp-ij-ckjlhkcgf therapy? Yes 923 (Given - Provid er: [...] Patient not of reproductive potential, Continuation of fgzsf-un-tyxeifkgt therapy? Yes, Is the patient under the [...] chloride 0.65 % nasal spray 1 spray ([place]) 1 spray, each nostril, As needed, congestion, dryness, Starting on Mon11/01/23 at 0211 0924 (Given - Provid er: Silvina Myers R.N.) documented in this encounter Additional Health Concerns Infection Onset Date Last Indicated Resolved Time COVID19 Pending 10/31/2023 10/31/2023 10/31/2023 3 :31 AM CDT documented as of this encounter Care Teams Inventory Manager Relationship Specialty Start Date End Date Ro Norton APRN, C.N.P., D.N.P. [address] [phone] PCP - General Family Medicine 05/07/19 documented as of this encounter
--- OUTSIDE RECORDS SUMMARY | 2023-11-03 06:00 | XMS_ITS | Encounter Summary ---
Author Organization [facility] Address [address] [place] [phone] Care Team Providers Care Millwork Estimator Name Role Phone Ro Norton APRN C.N.PRaffy, D.N.P. Primary Ca re Provider Reason for Visit * Reason Comments Shortness of Breath 53 yo presents to [facility] ED via [facility] with c/o worsening shortness of breath, cough, and headache. Patient received Fentanyl, and Ativan en-route for agitation, shortness of breath, and headache. Patient has productive cough with clear sputum. Encounter Details Date Type Department Care Team (Late Contact Info) Description 10/30/2023 9:57 PM CDT - 10/31/2023 12:05 AM CDT Emergency [facility] [address] [place] [phone] Serjio Gonsalves APRN, C.N.P., D.N.P., M.S.N. [address] [place] [phone] Acute And Chronic Respiratory Failure With Hypoxia [...] often do you attend chur ch or hinduism services? Never 03/25/2022 Do you belong to any clubs o r organizations such as roman catholic groups, unions, [...] Answer Date Recorded PHQ-2 Score 2 07/31/2023 [facility] of Occupat ional [facility] - Occupational Stress Questionnaire Answer Date [...] Serjio Gonsalves APRN, C.N.P., Kristin, M.S.N. 10/30/23 [phone] documented in this encounter ED Notes * Serjio Gonsalves APRN, C.N.P., Kristin, M.S.N. - 10/30/2023 10:49 PM CDT SUBJECTIVE CHIEF COMPLAINT/REASON FOR VISIT Shortness of Breath (53 yo presents to the ED via [facility] with c/o worsening shortnessof breath, cough, [...] CCOD consult 223 Consulted with CCOD from [facility], Woody Art M.D., M.S. I appreciate [...] and would like to do it at [facility] in [place]. 2305 CTA chest was ordered but patient was unstable to go to CT due to persistent hypoxia. EMS enroute to transport patient. Will defer CTA chest at this time until patient gets to [facility]. 2308 BUN (Blood Urea Nitrogen), P(!): 22 [...] Serjio Gonsalves APRN, C.N.P., D.N.P., M.S.N. 10/30/23 [phone] documented in this encounter Plan of Treatment Upcoming Encounters Date Type Department Care Team (Latest Contact Info) Description 11/08/2023 11:30 AM CDT Clinical Communication Virtual Review in [place], [place] [address] [place] [address] 11/15/2023 9:40 AM CDT Appointment Department of Laboratory Medicine and Pathology, [facility], in [place], [place] [address] [place] [address] Lubna Mcmillan M.D. [address] [place] [phone] 11/15/2023 10:10 AM CDT Appointment Department of Cardiovascular Diseases in [place], [place] [address] [place] [phone] Lubna Mcmillan M.D. [address] [place] [phone] Discharge Disposition: Home or Self Care 11/15/2023 1:00 PM CDT Appointment Department of Cardiac Rehabilitation in [place], [place] [address] [place] [phone] Lubna Mcmillan M.D. [address] [place] [phone] 11/15/2023 3:00 PM CDT Office Visit Department of Cardiovascular Medicine in [place], [place] [address] [place] [phone] Lubna Mcmillan M.D. [address] [place] [phone] 11/17/2023 2:00 PM CDT Comprehensive Visit Department of Family Medicine, [facility], in [address] [phone] Ro Norton APRN, C.N.P., D.N.P. [address] [place] [phone] 11/21/2023 11:00 AM CDT Office Visit Department of Family Medicine, [facility], in [address] [phone] Ro Norton APRN, C.N.PRaffy, D.N.P. [address] [phone] documented as of this encounter Procedures Procedure [...] C.N.P., MileNRaffyP., M.S.N . LAB BLOOD TROPONIN [facility] [address] [place] [address], [facility] CNFL [place] [address] * Lactate for Sepsis with Reflex (10/30/2023 10:28 PM CDT) Lactate, P 2.2 0.5 - 2.2 mmol/L 10/30/2023 10:55 PM CDT CNFL Blood (Blood, Venous) 10/30/2023 10:28 PM CDT 10/30/2023 10:40 PM CDT Serjio Gonsalves APRN, C.N.P., MileN.P., M.S.N . LAB BLOOD NON ADD-ON [facility] [address] [place] [address], [address] [address] * (ABNORMAL) Venous Blood Gas with Lactate, POCT, B (10/30/2023 10:26 PM CDT) [facility] pH, Venous, POCT, B 7.28(L) 7.32 [...] POCT ORDERABLES - DEVICE Performing Organization Address [facility]/ZIP Co de Phone Number [facility] [address] [place] [address], [facility] [address] [address] * (ABNORMAL) Prothrombin Time (PT) (10/30/2023 10:26 [...] APRN.NRaffyPRaffy, D.N.P., M.S.N . LAB BLOOD ADD-ON [facility] [address] [place] [address], [facility] in [address] [address] * (ABNORMAL) NT-Pro B-Type Natriuretic Peptide (BNP) (10/30/2023 10:26 PM CDT) NT-Pro BNP 1566(H) <=141 pg/mL 10/30/2023 11:17 PM CDT [facility] Comment: NT-proBNP values less than 300 [...] . LAB BLOOD ADD-ON Performing Organization Address City/[facility] Co de Phone Number [facility] [address] [place] [address], [facility] CNFL [facility] in [address] [address] * (ABNORMAL) Basic Metabolic Panel (10/30/2023 10:26 [...] C.N.P., Katelynn.N.P., M.S.N . LAB BLOOD ADD-ON [facility] [address] [place] [address], [facility] CNFL [facility] in [address] [address] * (ABNORMAL) CBC with Differential, Blood (10/30/2023 [...] . LAB BLOOD ADD-ON Performing Organization Address City/[facility] Co de Phone Number [facility] [address] [place] [address], [facility] in [address] [address] * Influenza A/B and RSV, PCR, Point [...] POCT ORDERABLES - DEVICE Performing Organization Address [facility] Co de Phone Number [facility] [address] [place] [address], [facility] in [address] [address] * SARS Coronavirus 2, PCR Rapid Symptomatic (10/30/2023 9:50 PM CDT) SARS CoV-2, PCR, Rapid, V Undetected Undetected 10/30/2023 10:46 PM CDT CNFL SARS Coronavirus 2, Source, Rapid Swab, Nasopharynx 10/30/2023 10:43 PM CDT CNFL Swab (Nasopharynx) 10/30/2023 9:50 PM CDT 10/30/2023 10:43 PM CDT Serjio Gonsalves APRN, C.N.P., MileN.P., M.S.N . LAB MICROBIOLOGY - GENERAL ORDERABLES Performing Organization Address City/[facility] Co de Phone Number [facility] [address] [place] [address], [place] CNFL [facility] in [address] [address] * ECG 12 Lead (10/30/2023 9:43 PM CDT) Ventricular Rate ECG/Min 74 BPM MUSE GA Interval 146 ms MUSE QRSD Interval 120 ms MUSE QT Interval 434 ms MUSE QTC Interval 481 ms MUSE P [place] 70 degrees MUSE R [place] 108 degrees MUSE T Wave [place] 63 degrees MUSE 10/30/2023 9:43 PM CDT [...] M.S.N . ECG ORDERABLES Performing Organization Address [facility]/ZIP Co de Phone Number MUSE NA documented [...] documented as of this encounter Care Teams Millwork Estimator Relationship Specialty Start Date End Date Ro Norton APRN, C.N.P., D.N.P. [address] [phone] PCP - General Family Medicine 05/07/19 documented as of this encounter
--- OUTSIDE RECORDS SUMMARY | 2023-11-03 06:00 | XMS_ITS | Encounter Summary ---
Author Organization [facility] Address [address] [place] [address] Care Team Providers Care Customer Service Analyst Name Role Phone Ro Norton APRN, C.N.P., D.N.P. Primary Ca re Provider Encounter Details Date Type Department Care Team (Late st Contact Info) Description 09/27/2023 Patient Self-Triage CONNECTED [facility] Symptom Sap Bobj Developer, Provider Social History Tobacco Use Types Packs/Day Years Used Date Smoking Tobacco: Every Day Cigarettes 0.5 30 Smokeless Tobacco: Never Comments:4-5 cigarettes a da y Alcohol Use Standard Drinks/Week Comments Not Currently 0 (1 standard drink = 0.6 oz pur e alcohol) ocassionally [facility] Utilities Answer Date Recorded In the past 12 months has e [employer] gas, oil, or water [employer] threatened to shut off services in your [...] often do you attend chur ch or samaritan services? Never 03/25/2022 Do you belong to any clubs o r organizations such as voodoo groups, unions, fraternal [...] Answer Date Recorded PHQ-2 Score 2 07/31/2023 [facility] Questionnaire Answer Date [...] your living situation today? [facility] 06/06/2023 Education Answer [...] AM CDT Clinical Communication Virtual Review in [place], [place] [address] [place] [phone] 11/15/2023 9:40 AM CDT Appointment Department of Laboratory Medicine and Pathology, [facility] in [place], [place] [address] [place] [phone] Lubna Mcmillan M.D. [address] [place] [phone] 11/15/2023 10:10 AM CDT Appointment Department of Cardiovascular Diseases in [place], [place] [address] [place] [phone] Lubna Mcmillan M.D. [address] [place] [phone] Discharge Disposition: Home or Self Care 11/15/2023 1:00 PM CDT Appointment Department of Cardiac Rehabilitation in [place], [place] [address] [place] [address] Lubna Mcmillan M.D. [address] [place] [phone] 11/15/2023 3:00 PM CDT Office Visit Department of Cardiovascular Medicine in [place], [place] [address] [place] [phone] Lubna Mcmillan M.D. [address] [place] [phone] 11/17/2023 2:00 PM CDT Comprehensive Visit Department of Family Medicine, [facility], in [address] [phone] Ro Norton APRN, C.N.P., D.N.P. [address] [place] [phone] 11/21/2023 11:00 AM CDT Office Visit Department of Family Medicine, [facility], in [address] [phone] Ro Norton APRN, C.N.P., D.N.P. [address] [place] [phone] documented as of this encounter Visit Diagnoses Not on filedocumented in this encounter Care Teams Customer Service Analyst Relationship Specialty Start Date End Date Ro Norton APRN C.N.P., D.N.P. [address] [place] [phone] PCP - General Family Medicine 05/07/19 documented as of this encounter
--- OUTSIDE RECORDS SUMMARY | 2023-11-03 06:00 | XMS_ITS | Encounter Summary ---
Author Organization [facility] Address [address] [place] [address] Care Team Providers Care Inspector Watch Assembly Name Role Phone Ro Norton APRN, C.N.P., D.N.P. Primary Ca re Provider Encounter Details Date Type Department Care Team (Late st Contact Info) Description 10/17/2023 Orders Only [facility] SELF [facility] [address] [place] [phone] Ro Norton APRN, C.N.P., D.N.P. [address] [place] [phone] Screening Cancer Colon Social History Tobacco [...] How often do you attend chur or bahai services? Never 03/25/2022 Do you belong to any clubs o r organizations such as sabianist groups, unions, fraternal [...] Answer Date Recorded PHQ-2 Score 2 07/31/2023 [facility] [place] of Occupat ional Health - Occupational Stress [...] your living situation today? I have a [facility] place to live 11/01/2023 Education Answer Date [...] AM CDT Clinical Communication Virtual Review in [place], [place] [address] [place] [address] 11/15/2023 9:40 AM CDT Appointment Department of Laboratory Medicine and Pathology, [facility], in [place], [place] [address] [place] [phone] Lubna Mcmillan M.D. [address] [place] [phone] 11/15/2023 10:10 AM CDT Appointment Department of Cardiovascular Diseases in [place], [place] [address] [place] [phone] Lubna Mcmillan M.D. [address] [place] [phone] Discharge Disposition: Home or Self Care 11/15/2023 1:00 PM CDT Appointment Department of Cardiac Rehabilitation in [place], [place] [address] [place] [phone] Lubna Mcmillan M.D. [address] [place] [phone] 11/15/2023 3:00 PM CDT Office Visit Department of Cardiovascular Medicine in [place], [place] [address] [place] [phone] Lubna Mcmillan M.D. [address] [place] [phone] 11/17/2023 2:00 PM CDT Comprehensive Visit Department of Family Medicine, [facility], in [address] [phone] Ro Norton APRN, C.N.P., D.N.P. [address] [place] [phone] 11/21/2023 11:00 AM CDT Office Visit Department of Family Medicine, [facility], in [address] [phone] Ro Norton APRN, C.N.P., D.N.P. [address] [place] [phone] documented as of this encounter Visit Diagnoses Diagnosis Screening Cancer Colon documented in this encounter Additional Health Concerns Infection Onset Date Last Indicated Resolved Time COVID19 Pending 10/30/2023 10/30/2023 10/30/2023 1 1:05 PM CDT COVID19 Pending 10/31/2023 10/31/2023 10/31/2023 3 :31 AM CDT documented as of this encounter Care Teams Inspector Watch Assembly Relationship Specialty Start Date End Date Ro Norton APRN, C.N.P., D.N.P. [address] [phone] PCP - General Family Medicine 05/07/19 documented as of this encounter
--- OUTSIDE RECORDS SUMMARY | 2023-11-03 06:00 | XMS_ITS | Encounter Summary ---
Author Organization [facility] Address [address] [place] [address] Care Team Providers Care Check Out Clerk Name Role Phone Ro Norton APRN, C.N.P., D.N.P. Primary Ca re Provider Encounter Details Date Type Department Care Team (Late st Contact Info) Description 10/03/2023 Orders Only [facility] SELF [facility] [address] [place] [phone] Ro Norton APRN, C.N.P., D.N.P. [address] [place] [phone] Screening Cancer Colon Social History Tobacco [...] any clubs o r organizations such as religious groups, unions, fraternal [...] Answer Date Recorded PHQ-2 Score 2 07/31/2023 [facility] [place] of Occupat ional Health - Occupational Stress [...] AM CDT Clinical Communication Virtual Review in [place], [place] [address] [place] [address] 11/15/2023 9:40 AM CDT Appointment Department of Laboratory Medicine and Pathology, [facility], in [place], [place] [address] [place] [phone] Lubna Mcmillan M.D. [address] [place] [phone] 11/15/2023 10:10 AM CDT Appointment Department of Cardiovascular Diseases in [place], [place] [address] [place] [phone] Lubna Mcmillan M.D. [address] [place] [phone] Discharge Disposition: Home or Self Care 11/15/2023 1:00 PM CDT Appointment Department of Cardiac Rehabilitation in [place], [place] [address] [place] [phone] Lubna Mcmillan M.D. [address] [place] [phone] 11/15/2023 3:00 PM CDT Office Visit Department of Cardiovascular Medicine in [place], [place] [address] [place] [phone] Lubna Mcmillan M.D. [address] [place] [phone] 11/17/2023 2:00 PM CDT Comprehensive Visit Department of Family Medicine, [facility], in [address] [phone] Ro Norton APRN, C.N.P., D.N.P. [address] [place] [phone] 11/21/2023 11:00 AM CDT Office Visit Department of Family Medicine, [facility], in [address] [phone] Ro Norton APRN, C.N.P., D.N.P. [address] [place] [phone] Scheduled Orders Name Type Priority Associated Diagnoses Orde r Schedule Cologuard - Sent Out Lab Lab Routine Screening Cancer Colon Expected: 10/17/2023, Expires: 01/02/2025 documented as of this encounter Visit Diagnoses Diagnosis Screening Cancer Colon documented in this encounter Care Teams Check Out Clerk Relationship Specialty Start Date End Date Ro Norton APRN, C.N.P., D.N.P. [address] [phone] PCP - General Family Medicine 05/07/19 documented as of this encounter
--- OUTSIDE RECORDS SUMMARY | 2023-11-03 06:00 | XMS_ITS | Encounter Summary ---
Author Organization [facility] Address [address] [place] [address] Care Team Providers Care Small Products Ii Assembler Name Role Phone Ro Norton APRN, C.N.P., D.N.P. Primary Ca re Provider Reason for Visit * Reason Comments Other Tooth infection Encounter Details Date Type Department Care Team (Late st Contact Info) Description 09/27/2023 3:00 PM CDT Telemedicine Department of Family Medicine, [facility], in [place], [place] [address] [place] [phone] Berna Snow APRN, C.N.P. [address] [place] [phone] Abscess Dental (Primary Dx) Discharge Disposition: Home or Self Care Social History Tobacco Use Types Packs/Day Years Used Date Smoking Tobacco: Every Day Cigarettes 0.5 30 Smokeless Tobacco: Never Comments:4-5 cigarettes a da y Alcohol Use Standard Drinks/Week Comments Not Currently 0 (1 standard drink = 0.6 oz pur e alcohol) ocassionally [facility] Utilities Answer Date Recorded In the past 12 months has e electric, gas, oil, or water [employer] threatened to shut off services in your [...] any clubs o r organizations such as latter-day groups, unions, fraternal [...] Answer Date Recorded PHQ-2 Score 2 07/31/2023 [facility] [place] of Occupat ional Health - Occupational Stress [...] your living situation today? I have a [facility] place to live 06/06/2023 Education Answer Date [...] this encounter Progress Notes * Berna Snow, VACUUM CASTER, C.N.P. - 09/27/2023 3:00 PM CDT SUBJECTIVE [...] technology by Berna Snow APRN, C.N.P. in [facility] to the patient in patient's home. documented in this encounter Plan of Treatment Upcoming Encounters Date Type Department Care Team (Latest Contact Info) Description 11/08/2023 11:30 AM CDT Clinical Communication Virtual Review in [address] [phone] 11/15/2023 9:40 AM CDT Appointment Department of Laboratory Medicine and Pathology, [facility] in [address] [phone] Lubna Mcmillan M.D. [address] [place] [phone] 11/15/2023 10:10 AM CDT Appointment Department of Cardiovascular Diseases in [address] [phone] Lubna Mcmillan M.D. [address] [place] [phone] Discharge Disposition: Home or Self Care 11/15/2023 1:00 PM CDT Appointment Department of Cardiac Rehabilitation in [place], [place] [address] [place] [phone] Lubna cMmillan M.D. [address] [place] [phone] 11/15/2023 3:00 PM CDT Office Visit Department of Cardiovascular Medicine in [place], [place] [address] [place] [phone] Lubna Mcmillan M.D. [address] [place] [phone] 11/17/2023 2:00 PM CDT Comprehensive Visit Department of Family Medicine, [facility], in [address] [phone] Ro Norton APRN C.N.P., D.N.P. [address] [place] [phone] 11/21/2023 11:00 AM CDT Office Visit Department of Family Medicine, [facility], in [address] [phone] Ro Norton APRN, C.N.P., D.N.P. [address] [place] [phone] documented as of this encounter Visit Diagnoses Diagnosis Abscess Dental- Primary documented in this encounter Care Teams Small Products Ii Assembler Relationship Specialty Start Date End Date Ro Norton APRN C.N.P., D.N.P. [address] [place] [phone] PCP - General Family Medicine 05/07/19 documented as of this encounter
--- OUTSIDE RECORDS SUMMARY | 2023-11-03 06:00 | XMS_ITS | Encounter Summary ---
Author Organization [facility] Address [address] [place] [address] Care Team Providers Care Engine Generator Assembler Name Role Phone Ro Norton APRN, C.N.P., D.N.P. Primary Ca re Provider Reason for Visit * Reason Onset Date Comments Rx Prior Authorization 09/11/2023 ensure Rx Denial 09/11/2023 ENSURE Encounter Details Date Type Department Care Team (Latest Contact Info) Description 09/11/2023 Clinical Communication Department of Family Medicine, [facility], in [address] [phone] Ro Norton APRN, C.N.P., D.N.P. [address] [place] [phone] Rx Prior Authorization (ensure); Rx Denial (ENSURE ) Social History Tobacco Use Types Packs/Day Years Used Date Smoking Tobacco: Every Day Cigarettes 0.5 30 Smokeless Tobacco: Never Comments:4-5 cigarettes a da y Alcohol Use Standard Drinks/Week Comments Not Currently 0 (1 standard drink = 0.6 oz pur e alcohol) ocassionally [facility] Utilities Answer Date Recorded In the [...] week 03/25/2022 How often do you attend [facility] or temple services? Never 03/25/2022 Do you belong to [...] Answer Date Recorded PHQ-2 Score 2 07/31/2023 [facility] - Occupational Stress Questionnaire [...] Release Rx: Open this encounter, go to [facility], and click on the medication. If the [...] AM CDT Clinical Communication Virtual Review in [place], [place] 200 [place] [phone] 11/15/2023 9:40 AM CDT Appointment Department of Laboratory Medicine and Pathology, [facility], in [address] [phone] Lubna Mcmillan M.D. [address] [place] [phone] 11/15/2023 10:10 AM CDT Appointment Department of Cardiovascular Diseases in [place], [place] [address] [place] [phone] Lubna Mcmillan M.D. [address] [place] [phone] Discharge Disposition: Home or Self Care 11/15/2023 1:00 PM CDT Appointment Department of Cardiac Rehabilitation in [place], [place] [address] [place] [phone] Lubna Mcmillan M.D. [address] [place] [phone] 11/15/2023 3:00 PM CDT Office Visit Department of Cardiovascular Medicine in [place], [place] [address] [place] [phone] Lubna Mcmillan M.D. [address] [place] [phone] 11/17/2023 2:00 PM CDT Comprehensive Visit Department of Family Medicine, [facility], in [address] [phone] Ro Norton APRN, C.N.P., D.N.P. [address] [place] [phone] 11/21/2023 11:00 AM CDT Office Visit Department of Family Medicine, [facility], in [address] [phone] Ro Norton APRN, C.N.P., D.N.P. [address] [place] [phone] documented as of this encounter Visit Diagnoses Not on filedocumented in this encounter Care Teams Engine Generator Assembler Relationship Specialty Start Date End Date Ro Norton APRN, C.N.P., D.N.P. [address] [phone] PCP - General Family Medicine 05/07/19 documented as of this encounter
--- OUTSIDE RECORDS SUMMARY | 2023-11-03 06:00 | XMS_ITS | Encounter Summary ---
Author Organization [facility] Address [address] [place] [address] Care Team Providers Care Gymnastics Coach Or Instructor Name Role Phone Ro Norton APRN, C.N.P., [...] has e electric, gas, oil, or water [employer] threatened to shut off services in your [...] often do you attend chur ch or buddhist services? Never 03/25/2022 Do you belong to any clubs o r organizations such as tenriism groups, unions, fraternal [...] Answer Date Recorded PHQ-2 Score 2 07/31/2023 [facility] - Occupational Stress Questionnaire Answer Date [...] your living situation today? I have a [facility] place to live 11/01/2023 Education Answer [...] AM CDT Clinical Communication Virtual Review in [place], [place] [address] [place] [phone] 11/15/2023 9:40 AM CDT Appointment Department of Laboratory Medicine and Pathology, [facility], in [place], [place] [address] [place] [phone] Lubna Mcmillan M.D. [address] [place] [phone] 11/15/2023 10:10 AM CDT Appointment Department of Cardiovascular Diseases in [place], [place] [address] [place] [phone] Lubna Mcmillan M.D. [address] [place] [phone] Discharge Disposition: Home or Self Care 11/15/2023 1:00 PM CDT Appointment Department of Cardiac Rehabilitation in [place], [place] [address] [place] [phone] Lubna Mcmillan M.D. [address] [place] [address] 11/15/2023 3:00 PM CDT Office Visit Department of Cardiovascular Medicine in [place], [place] [address] [place] [address] Lubna Mcmillan M.D. [address] [place] [phone] 11/17/2023 2:00 PM CDT Comprehensive Visit Department of Family Medicine, [facility], in [address] [phone] Ro Norton APRN, C.N.P., D.N.P. [address] [place] [phone] 11/21/2023 11:00 AM CDT Office Visit Department of Family Medicine, [facility], in [address] [phone] Ro Norton APRN, C.N.P., D.N.P. [address] [place] [phone] documented as of this encounter Visit Diagnoses Not on filedocumented in this encounter Additional Health Concerns Infection Onset Date Last Indicated Resolved Time COVID19 Pending 10/30/2023 10/30/2023 10/30/2023 1 1:05 PM CDT COVID19 Pending 10/31/2023 10/31/2023 10/31/2023 3 :31 AM CDT documented as of this encounter Care Teams Gymnastics Coach Or Instructor Relationship Specialty Start Date End Date Ro Norton APRN, C.N.P., D.N.P. [address] [phone] PCP - General Family Medicine 05/07/19 documented as of this encounter
--- OUTSIDE RECORDS SUMMARY | 2023-11-03 06:00 | XMS_ITS | Encounter Summary ---
Author Organization [facility] Address [address] [place] [address] Care Team Providers Care Coiled Tubing Operator Name Role Phone Ro Norton APRN, C.N.P., D.N.P. Primary Ca re Provider Encounter Details Date Type Department Care Team (Late st Contact Info) Description 09/11/2023 Clinical Communication Pharmacy Prior Auth RO [phone] Salome Alfaro Social History Tobacco Use Types Packs/Day Years Used Date Smoking Tobacco: Every Day Cigarettes 0.5 30 Smokeless Tobacco: Never Comments:4-5 cigarettes a da y Alcohol Use Standard Drinks/Week Comments Not Currently 0 (1 standard drink = 0.6 oz pur e alcohol) ocassionally [facility] Utilities Answer Date Recorded In the past 12 months has e [employer], gas, oil, or water [employer] threatened to shut off services in your [...] How often do you attend chur or methodist services? Never 03/25/2022 Do you [...] PHQ-2 Score 2 07/31/2023 [facility] - Occupational Stress Questionnaire Answer Date [...] AM CDT Clinical Communication Virtual Review in [place], [place] 200 [place] [address] 11/15/2023 9:40 AM CDT Appointment Department of Laboratory Medicine and Pathology, [facility], in [place], [place] [address] [place] [phone] Lubna Mcmillan M.D. [address] [place] [phone] 11/15/2023 10:10 AM CDT Appointment Department of Cardiovascular Diseases in [place], [place] [address] [place] [phone] Lubna Mcmillan M.D. [address] [place] [phone] Discharge Disposition: Home or Self Care 11/15/2023 1:00 PM CDT Appointment Department of Cardiac Rehabilitation in [place], [place] [address] [place] [phone] Lubna Mcmillan M.D. [address] [place] [phone] 11/15/2023 3:00 PM CDT Office Visit Department of Cardiovascular Medicine in [place], [place] [address] [place] [address] Lubna Mcmillan M.D. [address] [place] [phone] 11/17/2023 2:00 PM CDT Comprehensive Visit Department of Family Medicine, [facility], in [address] [phone] Ro Norton APRN, C.N.P., D.N.P. [address] [place] [phone] 11/21/2023 11:00 AM CDT Office Visit Department of Family Medicine, [facility], in [address] [phone] Ro Norton APRN C.N.P., D.N.P. [address] [place] [phone] documented as of this encounter Visit Diagnoses Not on filedocumented in this encounter Care Teams Coiled Tubing Operator Relationship Specialty Start Date End Date Ro Norton APRN, C.N.P., D.N.P. [address] [phone] PCP - General Family Medicine 05/07/19 documented as of this encounter
--- OUTSIDE RECORDS SUMMARY | 2023-11-03 06:01 | XMS_ITS | Encounter Summary ---
Author Organization [facility] Address [address] [place] [address] Care Team Providers Care Dermatology Physician Assistant Name Role Phone Ro Norton APRN, C.N.P., D.N.P. Primary Ca re Provider Reason for Visit * Reason Comments Infection Encounter Details Date Type Department Care Team (Late st Contact Info) Description 08/14/2023 9:30 AM CDT Telemedicine Department of Family Medicine, [facility] [place], in [place], [place] [address] [place] [phone] Tc Bee D.O. [address] [place] [phone] Pain Teeth (Primary Dx) Discharge Disposition: Home or Self Care Social History Tobacco Use Types Packs/Day Years Used Date Smoking Tobacco: Every Day Cigarettes 0.5 30 Smokeless Tobacco: Never Comments:4-5 cigarettes a da y Alcohol Use Standard Drinks/Week Comments Not Currently 0 (1 standard drink = 0.6 oz pur e alcohol) ocassionally [facility] Utilities Answer Date Recorded In the past 12 months has e [employer], gas, oil, or water [employer] threatened to shut off services in your [...] How often do you attend chur or sabianist services? Never 03/25/2022 Do you belong to any clubs o r organizations such as shinto groups, unions, fraternal [...] Date Recorded PHQ-2 Score 2 07/31/2023 [facility] [place] of Occupat ional Health - Occupational Stress [...] your living situation today? I have a [facility] place to live 06/06/2023 Education Answer Date [...] at her home I am in the [facility] [place]. HISTORY OF PRESENT ILLNESS Ms. Schulz Is [...] AM CDT Clinical Communication Virtual Review in [place], [place] 200 [place] [phone] 11/15/2023 9:40 AM CDT Appointment Department of Laboratory Medicine and Pathology, [facility], in [place], [place] [address] [place] [phone] Lubna Mcmillan M.D. [address] [place] [phone] 11/15/2023 10:10 AM CDT Appointment Department of Cardiovascular Diseases in [place], [place] [address] [place] [phone] Lubna Mcmillan M.D. [address] [place] [phone] Discharge Disposition: Home or Self Care 11/15/2023 1:00 PM CDT Appointment Department of Cardiac Rehabilitation in [place], [place] [address] [place] [phone] Lubna Mcmillan M.D. [address] [place] [phone] 11/15/2023 3:00 PM CDT Office Visit Department of Cardiovascular Medicine in [place], [place] [address] [place] [phone] Lubna Mcmillan M.D. [address] [place] [phone] 11/17/2023 2:00 PM CDT Comprehensive Visit Department of Family Medicine, [facility], in [address] [phone] Ro Norton APRN, C.N.P., D.N.P. [address] [place] [phone] 11/21/2023 11:00 AM CDT Office Visit Department of Family Medicine, [facility], in [address] [phone] Ro Norton APRN, C.N.P., D.N.P. [address] [place] [phone] documented as of this encounter Visit Diagnoses Diagnosis Pain Teeth- Primary documented in this encounter Care Teams Dermatology Physician Assistant Relationship Specialty Start Date End Date Ro Norton APRN, C.N.P., D.N.P. [address] [place] [phone] PCP - General Family Medicine 05/07/19 documented as of this encounter
--- OUTSIDE RECORDS SUMMARY | 2023-11-03 06:01 | XMS_ITS | Encounter Summary ---
Author Organization [facility] Address [address] [place] [address] Care Team Providers Care Manager Support Services Name Role Phone Ro Norton APRN, C.N.PRaffy, D.N.P. Primary Ca re Provider Reason for Referral * Medication Prior Authorization - Denied Specialty Diagnoses / Procedures Referred By Maria L t Referred To Contact Ro Norton APRN, C.N.P., D.N.P. [address] [place] [phone] Referral ID Status Reason Start Date Expiration Date Visits Re quested Visits Authorized [id number] Denied 1 1 Reason for Visit * Reason Comments Med Refill Encounter Details Date Type Department Care Team (Late st Contact Info) Description 08/25/2023 Refill Department of Family Medicine, [facility], in [address] [phone] Ro Norton APRN, Bolivar.N.P., D.N.P. [address] [place] [phone] Med Refill Social History Tobacco Use Types Packs/Day Years Used Date Smoking Tobacco: Every Day Cigarettes 0.5 30 Smokeless Tobacco: Never Comments:4-5 cigarettes a da y Alcohol Use Standard Drinks/Week Comments Not Currently 0 (1 standard drink = 0.6 oz pur e alcohol) ocassionally [facility] Utilities Answer Date Recorded In the past 12 months has th e [employer], gas, oil, or water company threatened to [...] often do you attend chur ch or congregation services? Never 03/25/2022 Do you [...] Answer Date Recorded PHQ-2 Score 2 07/31/2023 [facility] [place] of Occupat ional Health - Occupational Stress [...] AM CDT Clinical Communication Virtual Review in [place], [place] [address] [place] [address] 11/15/2023 9:40 AM CDT Appointment Department of Laboratory Medicine and Pathology, [facility] in [place], [place] [address] [place] [phone] Lubna Mcmillan M.D. [address] [place] [phone] 11/15/2023 10:10 AM CDT Appointment Department of Cardiovascular Diseases in [place], [place] [address] [place] [phone] Lubna Mcmillan M.D. [address] [place] [phone] Discharge Disposition: Home or Self Care 11/15/2023 1:00 PM CDT Appointment Department of Cardiac Rehabilitation in [place], [place] [address] [place] [phone] Lubna Mcmillan M.D. [address] [place] [phone] 11/15/2023 3:00 PM CDT Office Visit Department of Cardiovascular Medicine in [place], [place] [address] [place] [phone] Lubna Mcmillan M.D. [address] [place] [phone] 11/17/2023 2:00 PM CDT Comprehensive Visit Department of Family Medicine, [facility], in [address] [phone] Ro Norton APRN, C.NRaffyP., D.N.P. [address] [place] [address], [place] [phone] 11/21/2023 11:00 AM CDT Office Visit Department of Family Medicine, [facility], in [address] [place] [phone] Ro Norton APRN, C.N.Kirsty, D.N.P. [address] [place] [phone] documented as of this encounter Visit Diagnoses Not on filedocumented in this encounter Care Teams Manager Support Services Relationship Specialty Start Date End Date Ro Norton APRN, C.N.Taylor., D.N.P. [address] [place] [phone] PCP - General Family Medicine 05/07/19 documented as of this encounter
--- OUTSIDE RECORDS SUMMARY | 2023-11-03 06:01 | XMS_ITS | Encounter Summary ---
Author Organization [facility] Address [address] [place] [address] Care Team Providers Care Sports Broadcasting Internship Name Role Phone Ro Norton APRN, C.N.P., D.N.P. Primary Ca re Provider Reason for Visit * Reason Comments Med Refill Encounter Details Date Type Department Care Team (Late st Contact Info) Description 08/21/2023 Refill Department of Cardiovascular Medicine in [place], [place] [address] [place] [phone] Lubna Mcmillan M.D. [address] [place] [phone] Med Refill Social History Tobacco Use Types Packs/Day Years Used Date Smoking Tobacco: Every Day Cigarettes 0.5 30 Smokeless Tobacco: Never Comments:4-5 cigarettes a da y Alcohol Use Standard Drinks/Week Comments Not Currently 0 (1 standard drink = 0.6 oz pur e alcohol) ocassionally [facility] Utilities Answer Date Recorded In [...] How often do you attend chur or islam services? 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 Found prior authorization for another prescription for the same medication: Approved Pharmacy [facility] [place], [place] - [address] [facility] documented in this encounter Plan of Treatment Upcoming Encounters Date Type Department Care Team (Latest Contact Info) Description 11/08/2023 11:30 AM CDT Clinical Communication Virtual Review in [place], [place] 200 [place] [address] 11/15/2023 9:40 AM CDT Appointment Department of Laboratory Medicine and Pathology, [facility] in [address] [phone] Lubna Mcmillan M.D. [address] [place] [phone] 11/15/2023 10:10 AM CDT Appointment Department of Cardiovascular Diseases in [address] [phone] Lubna Mcmillan M.D. [address] [place] [phone] Discharge Disposition: Home or Self Care 11/15/2023 1:00 PM CDT Appointment Department of Cardiac Rehabilitation in [address] [phone] Lubna Mcmillan M.D. [address] [place] [phone] 11/15/2023 3:00 PM CDT Office Visit Department of Cardiovascular Medicine in [address] [phone] Lubna Mcmillan M.D. [address] [place] [phone] 11/17/2023 2:00 PM CDT Comprehensive Visit Department of Family [facility], in [address] [phone] Ro Norton APRN, C.N.P., D.N.P. [address] [place] [phone] 11/21/2023 11:00 AM CDT Office Visit Department of Family [facility], [facility], in [address] [phone] Ro Norton APRN, Bolivar.N.P., D.N.P. [address] [place] [phone] documented as of this encounter Visit Diagnoses Not on filedocumented in this encounter Care Teams [employer] Broadcasting Internship Relationship Specialty Start Date End Date Ro Norton APRN C.N.P., D.N.P. [address] [place] [phone] PCP - General Family Medicine 05/07/19 documented as of this encounter
--- OUTSIDE RECORDS SUMMARY | 2023-11-03 06:01 | XMS_ITS | Encounter Summary ---
Author Organization [facility] Address [address] [place] [address] Care Team Providers Care Dye Range Feeder Name Role Phone Ro Norton APRN, C.N.P., D.N.P. Primary Ca re Provider Encounter Details Date Type Department Care Team (Late st Contact Info) Description 08/22/2023 Orders Only [facility] [address] [phone] Karine Coles, Pharm.D., R.Ph. [address] [place] [phone] Social History Tobacco Use Types Packs/Day Years Used Date Smoking Tobacco: Every Day Cigarettes 0.5 30 Smokeless Tobacco: Never Comments:4-5 cigarettes a da y Alcohol Use Standard Drinks/Week Comments Not Currently 0 (1 standard drink = 0.6 oz pur e alcohol) ocassionally [facility] Utilities Answer Date Recorded In [...] How often do you attend chur or synagogue services? Never 03/25/2022 Do you belong to [...] Answer Date Recorded PHQ-2 Score 2 07/31/2023 [facility] [place] of Occupat ional Health - Occupational Stress [...] AM CDT Clinical Communication Virtual Review in [place], [place] [address] [place] [phone] 11/15/2023 9:40 AM CDT Appointment Department of Laboratory Medicine and Pathology, [facility], in [place], [place] [address] [place] [phone] Lubna Mcmillan M.D. [address] [place] [phone] 11/15/2023 10:10 AM CDT Appointment Department of Cardiovascular Diseases in [place], [place] [address] [place] [phone] Lubna Mcmillan M.D. [address] [place] [phone] Discharge Disposition: Home or Self Care 11/15/2023 1:00 PM CDT Appointment Department of Cardiac Rehabilitation in [place], [place] [address] [place] [phone] Lubna Mcmillan M.D. [address] [place] [phone] 11/15/2023 3:00 PM CDT Office Visit Department of Cardiovascular Medicine in [place], [place] [address] [place] [phone] Lubna Mcmillan M.D. [address] [place] [phone] 11/17/2023 2:00 PM CDT Comprehensive Visit Department of Family Medicine, [facility], in [address] [phone] Ro Norton APRN, C.N.P., D.N.P. [address] [place] [phone] 11/21/2023 11:00 AM CDT Office Visit Department of Family Medicine, [facility], in [address] [phone] Ro Norton APRN, C.N.P., D.N.P. [address] [place] [phone] documented as of this encounter Visit Diagnoses Not on filedocumented in this encounter Care Teams Dye Range Feeder Relationship Specialty Start Date End Date Ro Norton APRN, C.N.P., D.N.P. [address] [phone] PCP - General Family Medicine 05/07/19 documented as of this encounter
--- OUTSIDE RECORDS SUMMARY | 2023-11-03 06:01 | XMS_ITS | Encounter Summary ---
Author Organization [facility] Address [address] [place] [address] Care Team Providers Care Telephonic Nurse Case Manager Name Role Phone Ro Norton APRN, [...] Department of Family Medicine, [facility], in [address] [phone] Corina Nur M.D. [address] [place] [phone] Chronic Obstructive Pulmonary Disease Exacerbation (HCC) Discharge [...] alcohol) ocassionally [facility] Utilities Answer Date Recorded In the past 12 months has [employer], gas, oil, or water company threatened to [...] any clubs o r organizations such as latter day groups, unions, [...] Answer Date Recorded PHQ-2 Score 2 07/31/2023 [facility] [place] of Occupat ional Health - Occupational Stress [...] technology by Corina Nur M.D. in [facility] to the patient in the patient's home. [...] AM CDT Clinical Communication Virtual Review in [place], [place] 200 [place] [phone] 11/15/2023 9:40 AM CDT Appointment Department of Laboratory Medicine and Pathology, [facility] in [place], [place] [address] [place] [phone] Lubna Mcimllan M.D. [address] [place] [phone] 11/15/2023 10:10 AM CDT Appointment Department of Cardiovascular Diseases in [place], [place] [address] [place] [phone] Lubna Mcmillan M.D. [address] [place] [phone] Discharge Disposition: Home or Self Care 11/15/2023 1:00 PM CDT Appointment Department of Cardiac Rehabilitation in [place], [place] [address] [place] [phone] Lubna Mcmillan M.D. [address] [place] [phone] 11/15/2023 3:00 PM CDT Office Visit Department of Cardiovascular Medicine in [place], [place] [address] [place] [phone] Lubna Mcmillan M.D. [address] [place] [phone] 11/17/2023 2:00 PM CDT Comprehensive Visit Department of Family Medicine, [facility], in [address] [phone] Ro Norton APRN, C.NDean, D.N.P. [address] [place] [phone] 11/21/2023 11:00 AM CDT Office Visit Department of Family Medicine, [facility], in [address] [place] [phone] Ro Norton APRN, C.NDean, D.N.P. [address] [place] [address], [place] [phone] documented as of this encounter Visit Diagnoses Diagnosis Chronic Obstructive Pulmonary Disease Exacerbation (HCC) documented in this encounter Care Teams Telephonic Nurse Case Manager Relationship Specialty Start Date End Date Ro Norton APRN, C.NLisandro., D.N.P. [address] [place] [phone] PCP - General Family Medicine 05/07/19 documented as of this encounter
--- OUTSIDE RECORDS SUMMARY | 2023-11-03 06:01 | XMS_ITS | Encounter Summary ---
Author Organization [facility] Address [address] [place] [address] Care Team Providers Care Associate Professor Of Literature Name Role Phone Ro Norton APRN, C.N.P., D.N.P. Primary Ca re Provider Reason for Visit * Reason Comments tooth infection Encounter Details Date Type Department Care Team (Late st Contact Info) Description 09/07/2023 1:30 PM CDT Telemedicine Department of Family Medicine, [facility], in [place], [place] [address] [place] [phone] Valentin Andrea M.D. [address] [place] [phone] Pain Teeth (Primary Dx) Discharge Disposition: Home or Self Care Social History Tobacco Use Types Packs/Day Years Used Date Smoking Tobacco: Every Day Cigarettes 0.5 30 Smokeless Tobacco: Never Comments:4-5 cigarettes a da y Alcohol Use Standard Drinks/Week Comments Not Currently 0 (1 standard drink = 0.6 oz pur e alcohol) ocassionally [facility] Utilities Answer Date Recorded In the past 12 months has e eblizz, gas, oil, or water [employer] threatened to shut off services in your [...] How often do you attend chur or baptism services? Never 03/25/2022 Do you belong to [...] Answer Date Recorded PHQ-2 Score 2 07/31/2023 [facility] [place] of Occupat ional Health - Occupational Stress [...] your living situation today? I have a [facility] place to live 06/06/2023 Education [...] AM CDT Clinical Communication Virtual Review in [place], [place] [address] [place] [address] 11/15/2023 9:40 AM CDT Appointment Department of Laboratory Medicine and Pathology, [facility] in [address] [phone] Lubna Mcmillan M.D. [address] [place] [phone] 11/15/2023 10:10 AM CDT Appointment Department of Cardiovascular Diseases in [address] [phone] Lubna Mcmillan M.D. [address] [place] [phone] Discharge Disposition: Home or Self Care 11/15/2023 1:00 PM CDT Appointment Department of Cardiac Rehabilitation in [address] [phone] Lubna Mcmillan M.D. [address] [place] [phone] 11/15/2023 3:00 PM CDT Office Visit Department of Cardiovascular Medicine in [place], [place] [address] [place] [address] Lubna Mcmillan M.D. [address] [place] [address] 11/17/2023 2:00 PM CDT Comprehensive Visit Department of Family Medicine, [facility], in [address] [phone] Ro Norton APRN, C.N.P., D.N.P. [address] [place] [phone] 11/21/2023 11:00 AM CDT Office Visit Department of Family Medicine, [facility], in [address] [phone] Ro Norton APRN, C.N.P., D.N.P. [address] [place] [phone] documented as of this encounter Visit Diagnoses Diagnosis Pain Teeth- Primary documented in this encounter Care Teams Associate Professor Of Literature Relationship Specialty Start Date End Date Ro Norton APRN, C.N.P., D.N.P. [address] [place] [phone] PCP - General Family Medicine 05/07/19 documented as of this encounter
== END 2023-10-30 20:46 | disposition home or self-care (01) ==
LOC: AMB 11-03 05:57
PROVIDERS: PCP Nurse Practitioner Family; Visit Provider Emergency Medicine Emergency Medical Services
DX: R51.9 Headache, unspecified (principal); R06.09 Other forms of dyspnea
CPT/HCPCS: A0425; A0427

== ENCOUNTER 2023-11-02 02:54 | Outpatient (CLI) | payer MEDICAID, SELFPAY ==
--- OUTSIDE RECORDS SUMMARY | 2023-11-03 15:07 | XMS_ITS | Encounter Summary ---
Author Organization [facility] Address [address] [place] [address] Care Team Providers Care Reweaver Name Role Phone Ro Norton APRN, C.N.P., D.N.P. Primary Ca re Provider Reason for Visit * Auth/Cert (Routine) Specialty Diagnoses / Procedures Referred By Maria L t Referred To Contact Diagnoses Acute Respiratory Failure With Hypoxia (HCC) Hypoxic resp failure Procedures DIR Referral ID Status Reason Start Date Expiration Date Visits Re quested Visits Authorized [id number] 1 1 Encounter Details Date Type Department Care Team (Latest Contact Info) Description 10/31/2023 12:53 AM CDT - 11/01/2023 4:46 PM CDT Hospital Encounter [facility], [facility], [facility], Sixth Floor [address] [place] [phone] Whit Bhatti M.D. [address] [place] [phone] Jorge Sosa M.D. [address] [place] [phone] Acute Respiratory Failure With Hypoxia (HCC) (Primary [...] In the past 12 months has e [employer], gas, oil, or water [employer] threatened to shut off services in your [...] often do you attend chur ch or holiness services? Never 03/25/2022 Do you belong to [...] Answer Date Recorded PHQ-2 Score 2 07/31/2023 [facility] [place] of Occupat ional Health - Occupational Stress [...] have a [facility] place to live 11/01/2023 Education Answer [...] Discharge Provider: Whit Bhatti M.D. Primary Team: [facility] Medicine 1 Primary Care Providers: Ro Norton, MORGAN, C.N.PRaffy, DRaffy* (General) [address] [place] [phone] Primary Care Provider Primary Care Provider Other [...] prednisone (steroid) prescriptions have been sent to [facility] in [place]. Pleasepick them up tonight, 11/01/2023. - Start [...] back to your normal - Please call [phone] or the [facility] general number ([phone]) to schedule an appointment for gastroenterology at [...] Home medications: Held: vit C, Advair, lasix DENTISTRY TEACHER: RASS 0, O x 3, pain 0 [...] contact (babysitting her grandkid). Patient lives in [place], and was transferred from [place] to [facility]. The patient's background medical history includes [...] M.D. - 10/31/2023 12:51 AM CDT [facility] Medicine 1 H&P NOTE SUBJECTIVE Brief [...] inversions. Bedside ultrasound showed biventricular enlargement. Contacted [facility], who gave IV solu-medrol, lasix 0mg, rocephin, [...] / PLAN Ms. Schulz is hospitalized on [facility] Medicine 1 for evaluation and management [...] Diet: low sodium diet. Plan discussed with [facility] Medicine 1 Maintenance Planner, Dr. Jorge López, who was present during rachel portions of the evaluation today. Please page the [facility] Medicine 1 [place] [phone] with any questions. Corin Chauhan MD Neurology PGY-1 Pager [phone] 10/31/23 12:51 AM CDT documented in this encounter Consult Notes * Chrystal Delgadillo M.S.W., LJose.S.W. - 11/01/2023 3:58 PM CDTAssociated Order(s): IP CONSULT TO CARE MANAGEMENT SUBJECTIVE Social Work met with the patient on [address] Room 520 to address the care management consult for home oxygen and discharge planning. The patient was sleeping but woke when social work entered the patients room. The patient confirmed that she has [facility] for her oxygen supply company. A reconnection was completed. The patient has new oxygen needs and will need a larger concentrator at home. [facility] was contacted and the soonest they could deliver a concentrator would be AM. The patient would like to discharge home today. [facility] is okay with patient picking up the larger concentrator on her way home to [place], [place]. The patient is being transported by [employer] ([phone]). Jaspreet at [employer] approved the extra stop at [facility]. He requested that [facility] be notified that there is an add-on (extra stop). [facility] that set up the transport was contacted and asked to contact [facility] about the add-on. The patient stated she will be fine getting into her home independently and that her daughter is home and can assist with the new concentrator. OBJECTIVE The patient resides in her [place], [place] home with her adult daughter. The patient presented to [facility] ED on 10/31/23 due to hypoxia. She was transferred to [place] and admitted to the ICU on [address] due to a primary medical problem of Acute Respiratory Failure with Hypoxia. She is medically ready to discharge home and will be discharging from the ICU. [employer] will provide transportation. ASSESSMENT / PLAN ASSESSMENT The patient was oriented x 3. She appeared tired. Her thoughts were intact and linear. Her speech was within normal limits for volume, rhythm, and tone. PLAN - The patient will be discharging from the ICU to her [place], [place] home today, 11/01/23. - The patient will be transported by [employer] ([phone]). - Patient has agreed to stop by [employer] on her way home and tack picker the larger concentrator that she needs. - Social Work will continue to follow for any new discharge needs. Oxygen Reconnect: Durable Medical Equipment - Admitted Since 10/31/2023 Service Provider Selected Services Address Phone Fax Patient Preferred [facility] Durable Medical Equipment [phone] [facility] [phone] -- Contact: Piper Respiratory Equipment : [...] CDT Clinical Communication Virtual Review in [address] [phone] 11/15/2023 9:40 AM CDT Appointment Department of Laboratory Medicine and Pathology, [facility] in [address] [phone] Lubna Wren M.D. [address] [place] [phone] 11/15/2023 10:10 AM CDT Appointment Department of Cardiovascular Diseases in [address] [phone] Lubna Wren M.D. [address] [place] [phone] Discharge Disposition: Home or Self Care 11/15/2023 1:00 PM CDT Appointment Department of Cardiac Rehabilitation in [address] [phone] Lubna Wren M.D. [address] [place] [phone] 11/15/2023 3:00 PM CDT Office Visit Department of Cardiovascular Medicine in [place], [place] [address] [place] [address] Lubna Wren M.D. [address] [place] [address] 11/17/2023 2:00 PM CDT Comprehensive Visit Department of Family Medicine, [facility], in [address] [phone] Ro Norton APRN C.N.P., D.N.P. [address] [place] [phone] 11/21/2023 11:00 AM CDT Office Visit Department of Family Medicine, [facility], in [address] [phone] Ro Norton APRN, C.N.P., D.N.P. [address] [place] [phone] Scheduled Orders Name Type Priority Associated Diagnoses [...] 10/31/2023 2:58 AM CDT RESPIRATORY PANEL, PCR, MODERATE NEEDS TEACHER Routine 10/31/2023 2:18 AM CDT documented in this encounter Results * (ABNORMAL) Potassium (11/01/2023 7:17 AM CDT) Potassium, S 5.3(H) 3.6 - 5.2 mmol/L 11/01/2023 8:16 AM CDT DTL Comment: Specimen collected by special instruction procedure due to recurrent hemolysis. Blood 11/01/2023 7:17 AM CDT 11/01/2023 7:43 AM CDT Corin Chauhan M.D. LAB BLOOD ADD-ON Performing Organization Address [facility] Co de Phone Number [facility] 200 [place] [address], [facility] [address] [place] [address] * (ABNORMAL) AST (Aspartate Aminotransferase) (11/01/2023 7:17 [...] M.D. LAB BLOOD ADD-ON Performing Organization Address [facility] Co de Phone Number [facility] [address] [place] [address], [facility] [address] [place] [address] * Bilirubin, Direct (11/01/2023 7:17 AM CDT) Bilirubin, Direct, S 0.2 0.0 - 0.3 mg/dL 11/01/2023 8:16 AM CDT DTL Comment: Specimen collected by special instruction procedure due to recurrent hemolysis. Blood 11/01/2023 7:17 AM CDT 11/01/2023 7:43 AM CDT Corin Chauhan M.D. LAB BLOOD ADD-ON [facility] [address] [place] [address], [facility] DTL [facility] [address] [place] [address] * (ABNORMAL) CBC with Differential, Blood (11/01/2023 [...] CDT Corin Chauhan M.D. LAB BLOOD ADD-ON [facility] [address] [place] [address], [place] DTL [facility] [address] [place] [address] [facility] [address] [place] [address] * (ABNORMAL) HCV RNA Detect / Quant, Serum (11/01/2023 3:27 AM CDT) [facility] HCV RNA Detect/Quant, S [id number](A ) Undetected IU/mL 11/01/2023 1:32 PM CDT [facility] Comment: Result in log IU/mL is 5.72. ----ADDITIONAL INFORMATION---- The quantification range of this assay is 15 to 100,000,000 IU/mL (1.18 log to 8.00 log IU/mL). Testing was performed using the sandra HCV test ([employer] Blood (Blood, Venous) 11/01/2023 3:27 AM CDT 11/01/2023 8:12 AM CDT Sergei Palomares M.D. LAB MICROBIOLOGY - BLOOD ORDERABLES Performing Organization Address City/[facility]/ZIP Co de Phone Number [facility] [place] [address] [place] [address] [facility] [address] [place] [address] [place] [address] * (ABNORMAL) Basic Metabolic Panel (11/01/2023 3:26 AM CDT) [facility] Potassium, S CANCELED mmol/L 11/01/2023 4:44 [...] CDT Corin Chauhan M.D. LAB BLOOD ADD-ON [address] [address], [facility] [address] [address] * (ABNORMAL) Hepatic Function Panel (11/01/2023 3:26 [...] LAB BLOOD ADD-ON Performing Organization Address City/[facility]/[place] [address] * (ABNORMAL) Staph aureus / MRSA, Nasal, PCR (10/31/2023 2:27 PM CDT) Pathologist [facility] Staphylococcus aureus, PCR Positive(A) Negative 10/31/2023 4:08 PM CDT DTL MRSA, PCR Negative Negative 10/31/2023 4:08 PM CDT DTL Comment: Methicillin (oxacillin)-susceptible Staphylococcus aureus complex detected. Swab (Nares) 10/31/2023 2:27 PM CDT 10/31/2023 2:51 PM CDT Sergei Palomares M.D. LAB MICROBIOLOGY - GENERAL ORDERABLES Performing Organization Address City/[facility]/[place] [address] * (ABNORMAL) Hepatic Function Panel (10/31/2023 12:12 PM CDT) Pathologist [facility] Bilirubin, Total, S 0.6 0.0 - 1.2 mg/dL 10/31/2023 1:36 PM CDT DTL Bilirubin, Direct, S CANCELED mg/dL 10/21 2:01 PM CDT DTL Comment: Specimen was hemolyzed. Provider contacted at [phone] and asked to cancel without redraw. 10/31/2023 ?? 14:00 SHOE SHANKER Result canceled by the ancillary. Aspartate Aminotransferase (AST), S CANCELED U/L 10/31/2023 2:01 PM CDT DTL Comment: Specimen was hemolyzed. Provider contacted at [phone] and asked to cancel without redraw. 10/31/2023 ?? 14:00 SHOE SHANKER Result canceled by the ancillary. Alanine Aminotransferase [...] CDT Corin Chauhan M.D. LAB BLOOD ADD-ON [facility] [address] [place] [address], [facility] DTL [facility] [address] [place] [address] * CT Chest Angiogram and Pulmonary Arteries [...] to assess for resolution. Sergei Palomares M.D. [facility] PROCEDURES * (ABNORMAL) Basic Metabolic Panel (10/31/2023 3:14 AM CDT) Pathologist [facility] Potassium, S 5.0 3.6 - 5.2 mmol/L [...] CDT Corin Chauhan M.D. LAB BLOOD ADD-ON [facility] [address] [place] [address], [facility] [address] [place] [address] * (ABNORMAL) CBC with Differential, Blood (10/31/2023 [...] CDT Corin Chauhan M.D. LAB BLOOD ADD-ON [facility] [address] [place] [address], [facility] DTL [facility] [address] [place] [address] [facility] [address] [place] [address] * Patient Status (10/31/2023 3:08 AM CDT) O2 Flow 10.0L L/min 10/31/2023 3:14 AM CDT [facility] Comment:REVISED RESULTS Device NC 10/31/2023 3:14 AM CDT [facility] Comment:REVISED RESULTS Spont. breaths/min 15 10/31/2023 3:14 AM CDT [facility] Comment:REVISED RESULTS Blood 10/31/2023 3:08 AM CDT 10/31/2023 3:08 AM CDT Corin Chauhan M.D. LAB BLOOD NON ADD-ON [facility] [address] [place], [place] [phone] [place] [address] 200 [place] [address] * (ABNORMAL) Blood Gas without Coox, Arterial [...] Corin Chauhan M.D. LAB BLOOD NON ADD-ON [facility] [address] [place] [address], [facility] [address] [place] [address] * (ABNORMAL) Erythropoietin (EPO) (10/31/2023 2:58 AM CDT) Erythropoietin (EPO), S 18.8(H) 2.6 - 18.5 mIU/mL 10/31/2023 10:11 AM CDT [facility] Blood 10/31/2023 2:58 AM CDT 10/31/2023 8:56 AM CDT Corin Chauhan M.D. LAB BLOOD ADD-ON [facility] [address] [place] [address] [facility] [address] [place] [address] * (ABNORMAL) Hepatic Function Panel (10/31/2023 2:58 [...] CDT Corin Chauhan M.D. LAB BLOOD ADD-ON [facility] [address] [place] [address], [place] DTL [facility] [address] [place] [address] * (ABNORMAL) Respiratory Panel, PCR, Nasopharyngeal (10/31/2023 [...] using the FDA-Cleared Film[employer] Respiratory Panel 2.1 (Uskape). Swab (Nasopharynx) 10/31/2023 2:18 AM CDT 10/31/2023 2:35 AM CDT Corin Chauahn M.D. LAB MICROBIOLOGY - [facility] ORDERABLES Performing Organization Address City/State/[facility] Co de Phone Number [facility] 200 [place] [address], [facility] DTL 200 [facility] 200 [place] [address] documented in this encounter Visit Diagnoses Diagnosis [...] indication: Opioid Use Disorder (OUD), Continuation of ywxvv-fs-nycrgsdrm therapy? Yes Given 10/31/2023 11:41 AM CDT 4 mg of buprenorphine buprenorphine-naloxo ne 4-1 mg per SL Film 4 mg of buprenorphine (Suboxone) 4 mg of buprenorphine (1 Film), sublingual, Once, On Mon10/31/23 at 1115, For 1 dose, Select indication: Opioid Use Disorder (OUD), Continuation of wpqze-ne-sbepsddfi therapy? Yes Given 10/31/2023 11:42 AM CDT 4 mg of buprenorphine buprenorphine-naloxo ne 8-2 mg per SL Film 8 mg of buprenorphine (Suboxone) 8 mg of buprenorphine (1 Film), sublingual, Daily, First dose on Mon11/01/23 at 0900, Select indication: Opioid Use Disorder (OUD), Continuation of nmkhl-hb-wkzwsxijo therapy? Yes Given 11/01/2023 9:24 AM CDT [...] Patient not of reproductive potential, Continuation of wdeds-ne-lraqniepi therapy? Yes, Is the patient under the [...] chloride 0.65 % nasal spray 1 spray ([place]) 1 spray, each nostril, As needed, congestion, [...] indication: Opioid Use Disorder (OUD), Continuation of pxbzu-px-hsxostdsu therapy? Yes 1141 (Given - Provider: Silvina Myers R.N.) buprenorphine-naloxone 4-1 mg per SL Film 4 mg of buprenorphine (Suboxone) (COMPLETED) 4 mg of buprenorphine (1 Film), sublingual, Once, On Mon10/31/23 at 1115, For 1 dose, Select indication: Opioid Use Disorder (OUD), Continuation of mupvm-de-hsnxbzmwv therapy? Yes 1142 (Given - Provider: Silvina Myers R.N.) buprenorphine-naloxone 8-2 mg per SL Film 8 mg of buprenorphine (Suboxone) 8 mg of buprenorphine (1 Film), sublingual, Daily, First dose on Mon11/01/23 at 0900, Select indication: Opioid Use Disorder (OUD), Continuation of hyrzp-nt-agckfccov therapy? Yes 923 (Given - Provid er: [...] Patient not of reproductive potential, Continuation of vbmcw-da-mbwddabxe therapy? Yes, Is the patient under the [...] chloride 0.65 % nasal spray 1 spray ([place]) 1 spray, each nostril, As needed, congestion, dryness, Starting on Mon11/01/23 at 0211 0924 (Given - Provid er: Silvina Myers R.N.) documented in this encounter Additional Health Concerns Infection Onset Date Last Indicated Resolved Time COVID19 Pending 10/31/2023 10/31/2023 10/31/2023 3 :31 AM CDT documented as of this encounter Care Teams Reweaver Relationship Specialty Start Date End Date Ro Norton APRN, C.N.P., D.N.P. [address] [phone] PCP - General Family Medicine 05/07/19 documented as of this encounter
--- OUTSIDE RECORDS SUMMARY | 2023-11-03 15:07 | XMS_ITS | Encounter Summary ---
Author Organization [facility] Address [address] [place] [address] Care Team Providers Care Motel Clerk Name Role Phone Ro Norton APRN, C.N.P., D.N.P. Primary Ca re Provider Reason for Visit * Reason Onset Date Comments Post Hospital Follow-up 11/02/2023 Discharg ed 11/01/23 Encounter Details Date Type Department Care Team (Latest Contact Info) Description 11/02/2023 Clinical Communication Department of Family Medicine, [facility], in [address] [phone] Lizbeth Mcneil R.N. [address] [place] [phone] Post Hospital Follow-up (Discharged 11/01/23) Social History Tobacco Use Types Packs/Day Years Used Date Smoking Tobacco: Every Day Cigarettes 0.5 30 Smokeless Tobacco: Never Comments:4-5 cigarettes a da y Alcohol Use Standard Drinks/Week Comments Not Currently 0 (1 standard drink = 0.6 oz pur e alcohol) ocassionally [facility] Utilities Answer Date Recorded In the [...] Answer Date Recorded PHQ-2 Score 2 07/31/2023 [facility] [place] of Occupat ional Health - Occupational [...] situation today? I have a [facility] place to live 11/01/2023 Education Answer [...] AM CDT Clinical Communication Virtual Review in [place], [place] [address] [place] [phone] 11/15/2023 9:40 AM CDT Appointment Department of Laboratory Medicine and Pathology, [facility], in [place], [place] [address] [place] [address] Lubna Mcmillan M.D. [address] [place] [phone] 11/15/2023 10:10 AM CDT Appointment Department of Cardiovascular Diseases in [place], [place] [address] [place] [phone] Lubna Mcmillan M.D. [address] [place] [phone] Discharge Disposition: Home or Self Care 11/15/2023 1:00 PM CDT Appointment Department of Cardiac Rehabilitation in [place], [place] [address] [place] [phone] Lubna Mcmillan M.D. [address] [place] [phone] 11/15/2023 3:00 PM CDT Office Visit Department of Cardiovascular Medicine in [place], [place] [address] [place] [address] Lubna Mcmillan M.D. [address] [place] [phone] 11/17/2023 2:00 PM CDT Comprehensive Visit Department of Family Medicine, [facility], in [address] [phone] Ro Norton APRN, C.N.P., D.N.P. [address] [place] [phone] 11/21/2023 11:00 AM CDT Office Visit Department of Family Medicine, [facility], in [address] [phone] Ro Norton APRN, C.N.P., D.N.P. [address] [phone] documented as of this encounter Visit Diagnoses Not on filedocumented in this encounter Care Teams Motel Clerk Relationship Specialty Start Date End Date Ro Norton APRN, C.NLisandro., D.N.P. [address] [phone] PCP - General Family Medicine 05/07/19 documented as of this encounter
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
--- OUTSIDE RECORDS SUMMARY | 2023-11-03 15:07 | XMS_ITS ---
Author Organization [facility] Address [address] [place] [address] Care Team Providers Care Kitchen Manager Name Role Phone Unavailable Unavailable Unavailable Surgery Details Not on file Complications Check Surgery Details section. Procedure Estimated Blood Loss Check Surgery Details section. Procedure Findings Check Surgery Details section. Procedure Specimens Taken Check Surgery Details section.
--- OUTSIDE RECORDS SUMMARY | 2023-11-03 15:07 | XMS_ITS | Referral Summary ---
Author Organization [facility] Address [address] [place] [address] Care Team Providers Care Materials Clerk Name Role Phone Ro Norton APRN C.N.PRaffy, D.N.P. Primary Ca re Provider Source Comments Patient records contain information from all sites at [facility]. For routine questions regarding patient records, call [phone] during business hours, M-F 8:00 AM - 5:00 PM Central Time. Record requests for emergency care only can be directed to [phone] at any time.[facility] Encounters Date Type Department Care Team Description 11/02/2023 Clinical Communication Department of Family Medicine, [facility], in [address] [phone] Lizbeth Mcneil R.N. Post Hospital Follow-up (Discharged 11/01/23) 10/31/2023 12:53 AM CDT - 11/01/2023 4:46 PM CDT Hospital Encounter [facility], [facility], [facility], Sixth Floor [address] [place] [phone] Whit Bhatti M.D. Jorge Sosa M.D. Acute Respiratory Failure With Hypoxia (HCC) (Primary Dx); Hypertension Pulmonary Primary (HCC) Discharge Disposition: Home or Self Care 10/30/2023 9:57 PM CDT - 10/31/2023 12:05 AM CDT Emergency [facility] [address] [place] [phone] Serjio Gonsalves APRN, C.N.P., D.N.P., M.S.N. Acute And Chronic Respiratory Failure With Hypoxia (HCC) (Primary Dx); Chronic Obstructive Pulmonary Disease Exacerbation (HCC); Acute Respiratory Failure With Hypercapnia (HCC) Discharge Disposition: [facility] 10/30/2023 Intake T TRANSFER CENTER 10/17/2023 Orders Only [facility] [address] [place] [phone] Ro Norton APRN, Bolivar.N.P., D.N.P. Screening Cancer Colon 10/03/2023 Orders Only [facility] [address] [place] [address] Ro Norton APRN, C.N.P., D.N.P. Screening Cancer Colon 09/27/2023 Patient Self-Triage [facility] [employer], Provider 09/27/2023 Patient Self-Triage [facility] [employer], Provider 09/27/2023 Nurse Triage Department of Family [facility], [facility], [address] [phone] Evelia Hernandez, EthanN. Med Question 09/27/2023 3:00 PM CDT Telemedicine Department of Family Medicine, [facility], in [address] [phone] Berna Snow APRN, C.N.P. Abscess Dental (Primary Dx) Discharge Disposition: Home or Self Care 09/11/2023 Clinical Communication Department of Family [facility], [facility], [address] [phone] Ro Norton APRN, C.N.P., D.N.P. Rx Prior Authorization (ensure); Rx Denial (ENSURE ) 09/11/2023 Clinical Communication Pharmacy Prior Auth [phone] Salome Alfaro 09/07/2023 1:30 PM CDT Telemedicine Department of Family Medicine, [facility], in [place], [place] [address] [place] [address] Valentin Andrea M.D. Pain Teeth (Primary Dx) Discharge Disposition: Home or Self Care 08/25/2023 Refill Department of Family Medicine, [facility], in [address] [phone] Ro Norton APRN, C.N.P., D.N.P. Med Refill 08/22/2023 Orders Only [facility] [address] [phone] Karine Coles, Pharm.D., R.Ph. 08/21/2023 Refill Department of Cardiovascular Medicine in [place], [place] [address] [place] [address] Lubna Mcmillan M.D. Med Refill 08/14/2023 9:30 AM CDT Telemedicine Department of Family Medicine, [facility], in [place], [place] [address] [place] [address] Tc Bee D.O. Pain Teeth (Primary Dx) [...] (07/01/2020): Added automatically from request for surgery [id number] Anemia Posthemorrhagic Acute (Blood Loss Anemia) 10/25/2019 [...] = 0.6 oz pur e alcohol) ocassionally [facility] Utilities Answer Date Recorded In the past 12 months has e [employer], gas, oil, or water [employer] threatened to shut off services in your [...] often do you attend chur ch or faith services? Never 03/25/2022 Do you belong to [...] Answer Date Recorded PHQ-2 Score 2 07/31/2023 [facility] Occupat ional [facility] - Occupational Stress Questionnaire Answer Date Recorded [...] a [facility] place to live 11/01/2023 Education Answer [...] AM CDT Clinical Communication Virtual Review in [place], [place] [address] [place] [address] 11/15/2023 9:40 AM CDT Appointment Department of Laboratory Medicine and Pathology, [facility] in [place], [place] [address] [place] [address] Lubna Mcmillan M.D. [address] [place] [phone] 11/15/2023 10:10 AM CDT Appointment Department of Cardiovascular Diseases in [place], [place] [address] [place] [address] Lubna Mcmillan M.D. [address] [place] [phone] Discharge Disposition: Home or Self Care 11/15/2023 1:00 PM CDT Appointment Department of Cardiac Rehabilitation in [place], [place] [address] [place] [address] Lubna Mcmillan M.D. [address] [place] [address] 11/15/2023 3:00 PM CDT Office Visit Department of Cardiovascular Medicine in [place], [place] [address] [place] [address] Lubna Mcmillan M.D. [address] [place] [address] 11/17/2023 2:00 PM CDT Comprehensive Visit Department of Family Medicine, [facility], in [address] [phone] Ro Norton APRN, C.N.P., D.N.P. [address] [place] [phone] 11/21/2023 11:00 AM CDT Office Visit Department of Family Medicine, [facility], [address] [phone] Ro Norton APRN, C.N.P., D.N.P. [address] [place] [phone] Medical Devices Implanted Type Area Molding Machine Tender Device Identifier Shelf Expiration Date Model / Serial / Lot Osferion Bone Void Filler, 10 X 3 X 30 X 12 Mm Implanted:Qty : 1 on 10/24/2019 by Raudel Lewis M.D. at [facility] Hardware e.g. pins/screws/ rods Left: Tibia Arthrex 09/19/2023 [id number] / N/A / [id number] Scrw Tmx St Fthrd Nlck 3.5x38 - [id number] Implanted:Qty : 1 on 10/24/2019 by Raudel Lewis M.D. at [facility] Hardware e.g. pins/screws/ rods Left: Tibia Depuy Synthes [id number] / / Scrw Tmx St Fthrd Nlck 3.5x55 - [id number] Implanted:Qty : 1 on 10/24/2019 by Raudel Lewis M.D. at [facility] Hardware e.g. pins/screws/ rods Left: Tibia Depuy [employer]ynthes [id number] / / Scrw Tmx St Fthrd Nlck 3.5x65 - [id number] Implanted:Qty : 2 on 10/24/2019 by Raudel Lewis M.D. at [facility] Hardware e.g. pins/screws/ rods Left: Tibia Depuy Synthes [id number] / / Plt Ankl Mei 3h Lck 74.7x35.6 - [id number] Implanted:Qty : 1 on 10/24/2019 by Raudel Lewis M.D. at [facility] Hardware e.g. pins/screws/ rods Left: Tibia Rabia [employer] [id number] / / Scrw Dcp St Fthrd 3.5x75 - [id number] Implanted:Qty : 1 on 10/24/2019 by Raudel Lewis M.D. at [facility] Hardware e.g. pins/screws/ rods Left: Tibia [...] 10/31/2023 2:58 AM CDT RESPIRATORY PANEL, PCR, SUPERINTENDENT CIRCUS Routine 10/31/2023 2:18 AM CDT CRITICAL CARE [...] BLOOD ADD-ON Performing Organization Address [facility] [place] [address] * (ABNORMAL) Potassium (11/01/2023 7:17 AM CDT) Potassium, S 5.3(H) 3.6 - 5.2 mmol/L 11/01/2023 8:16 AM CDT DTL Comment: Specimen collected by special instruction procedure due to recurrent hemolysis. Blood 11/01/2023 7:17 AM CDT 11/01/2023 7:43 AM CDT Corin Chauhan M.D. LAB BLOOD ADD-ON Performing Organization Address [facility] Co de Phone Number [facility] [address] [place] [address] * Bilirubin, Direct (11/01/2023 7:17 AM CDT) Bilirubin, Direct, S 0.2 0.0 - 0.3 mg/dL 11/01/2023 8:16 AM CDT DTL Comment: Specimen collected by special instruction procedure due to recurrent hemolysis. Blood 11/01/2023 7:17 AM CDT 11/01/2023 7:43 AM CDT Corin Chauhan M.D. LAB BLOOD ADD-ON Performing Organization Address [facility]/ZIP Co de Phone Number [facility] [address] [place] [address], [facility] [address] [place] [address] * (ABNORMAL) HCV RNA Detect / Quant, Serum (11/01/2023 3:27 AM CDT) Pathologist [facility] HCV RNA Detect/Quant, S 000418(A ) Undetected IU/mL 11/01/2023 1:32 PM CDT [facility] Comment: Result in log IU/mL is 5.72. ----ADDITIONAL INFORMATION---- The quantification range of this assay is 15 to 100,000,000 IU/mL (1.18 log to 8.00 log IU/mL). Testing was performed using the sandra HCV test ([employer] Blood (Blood, Venous) 11/01/2023 3:27 AM CDT 11/01/2023 8:12 AM CDT Sergei Palomares M.D. LAB MICROBIOLOGY - BLOOD ORDERABLES Performing Organization Address [facility] Co de Phone Number [facility] [address] [place] [address] [facility] [address] [place] [address] [place] [address] * (ABNORMAL) CBC with Differential, Blood (11/01/2023 3:27 AM CDT) Only the most recent of3 resultswithin the time period is included. Pathologist [facility] Hemoglobin 17.1(H) 11.6 - 15.0 g/dL 11/01/2023 [...] ADD-ON [facility] [address] [place] [address], [facility] DTL [facility] [address] [place] [address] [facility] [address] [place] [address] * (ABNORMAL) Hepatic Function Panel (11/01/2023 3:26 [...] CDT Sergei Palomares M.D. LAB BLOOD ADD-ON [address] [address], [facility] [address] [address] * (ABNORMAL) Basic Metabolic Panel (11/01/2023 3:26 [...] M.D. LAB BLOOD ADD-ON Performing Organization Address City/[facility]/ZIP Co de Phone Number [facility] [address] [place] [address], [facility] [place] [address] * (ABNORMAL) Staph aureus / MRSA, Nasal, PCR (10/31/2023 2:27 PM CDT) Staphylococcus aureus, PCR Positive(A) Negative 10/31/2023 4:08 PM CDT DTL MRSA, PCR Negative Negative 10/31/2023 4:08 PM CDT DTL Comment: Methicillin (oxacillin)-susceptible Staphylococcus aureus complex detected. Swab (Nares) 10/31/2023 2:27 PM CDT 10/31/2023 2:51 PM CDT Sergei Palomares M.D. LAB MICROBIOLOGY - GENERAL ORDERABLES Performing Organization Address City/[facility]/ZIP Co de Phone Number [facility] [address] [place], [place] [phone] [place] [address] [facility]TA[facility] [address] [place] [phone] * CT Chest Angiogram and Pulmonary Arteries [...] BLOOD NON ADD-ON [facility] [address] [place] [address], [facility] [address] [place] [address] * (ABNORMAL) Blood Gas without Coox, Arterial (10/31/2023 3:08 AM CDT) Pathologist [facility] pO2 52(L) 83 - 108 mm Hg [...] NON ADD-ON [facility] [address] [place] [address], [facility] [address] [place] [address] * (ABNORMAL) Erythropoietin (EPO) (10/31/2023 2:58 AM CDT) Erythropoietin (EPO), S 18.8(H) 2.6 - 18.5 mIU/mL 10/31/2023 10:11 AM CDT [facility] Blood 10/31/2023 2:58 AM CDT 10/31/2023 8:56 AM CDT Corin Chauhan M.D. LAB BLOOD ADD-ON Performing Organization Address City/[facility]/ZIP Co de Phone Number [facility] [address] [place] [address] [facility] [address] [place] [address] * (ABNORMAL) Respiratory Panel, PCR, Nasopharyngeal (10/31/2023 2:18 AM CDT) Pathologist [facility] Specimen Source NASOPHARYNGEAL SWAB 10/31/2023 3:31 AM [...] using the FDA-Cleared FilmArray Respiratory Panel 2.1 (Symetis). Swab (Nasopharynx) 10/31/2023 2:18 AM CDT 10/31/2023 2:35 AM CDT Corin Chauhan M.D. LAB MICROBIOLOGY - G ENERAL ORDERABLES [facility] [address] [place] [address], [facility] DTL 200 [facility] [address] [place] [address] * Critical Care (10/30/2023 11:19 PM CDT) [...] Katelynn.N.P., M.S.N . LAB BLOOD NON ADD-ON [facility] [address] [place] [address], [facility] in [address] [address] * Troponin T, Baseline with 2 Hour/6 Hour Reflex Biomarker Panel (10/30/2023 10:28 PM CDT) Troponin T, Baseline, 5th gen 10 <=10 ng/L 10/30/2023 11:07 PM CDT [facility] Blood (Blood, Venous) 10/30/2023 10:28 PM CDT 10/30/2023 10:52 PM CDT Serjio Gonsalves APRN, C.N.P., MileN.P., M.S.N . LAB BLOOD TROPONIN [facility] [address] [place] [address], [address] [address] * (ABNORMAL) Venous Blood Gas with Lactate, [...] M.S.N . LAB POCT ORDERABLES - DEVICE [facility] [address] [place] [address], [facility] in [address] [place] [address] * (ABNORMAL) NT-Pro B-Type Natriuretic Peptide (BNP) [...] APRNNLisandro., D.N.P., M.S.N . LAB BLOOD ADD-ON [facility] [address] [place] [address], [facility] in [address] [address] * (ABNORMAL) Prothrombin Time (PT) (10/30/2023 10:26 [...] . LAB BLOOD ADD-ON Performing Organization Address City/[facility]/ZIP Co de Phone Number [address] [address], [address] [address] * SARS Coronavirus 2, PCR Rapid Symptomatic (10/30/2023 9:50 PM CDT) Pathologist [facility] SARS CoV-2, PCR, Rapid, V Undetected Undetected 10/30/2023 10:46 PM CDT CNFL SARS Coronavirus 2, Source, Rapid Swab, Nasopharynx 10/30/2023 10:43 PM CDT CNDE Swab (Nasopharynx) 10/30/2023 9:50 PM CDT 10/30/2023 10:43 PM CDT Serjio Gonsalves APRN, C.N.P., MileNRaffyP., M.S.N . LAB MICROBIOLOGY - GENERAL ORDERABLES Performing Organization Address [facility]/ZIP Co de Phone Number [address] [address], [facility] in [address] [address] * Influenza A/B and RSV, PCR, Point of Care (10/30/2023 9:50 PM CDT) Pathologist [facility] Influenza A, POCT Negative Negative 10/30/2023 11:55 PM CDT CNDE Influenza B, POCT Negative Negative 10/30/2023 11:55 PM CDT CNFL Resp Syncytial Virus, POCT Negative Negative 10/30/2023 11:55 PM CDT CNDE Swab (Nasopharynx) 10/30/2023 9:50 PM CDT 10/30/2023 10:43 PM CDT Serjio Gonsalves APRN, C.N.P., Katelynn.N.P., M.S.N . LAB POCT ORDERABLES - DEVICE Performing Organization Address [facility] Co de Phone Number [facility] [address] [place] [address], [facility] in [address] [address] * ECG 12 Lead (10/30/2023 9:43 PM CDT) Ventricular Rate ECG/Min [address] Interval 146 ms MUSE QRSD Interval 120 ms MUSE QT Interval 434 ms MUSE QTC Interval 481 ms MUSE P [place] 70 degrees MUSE R [place] 108 degrees MUSE T Wave [place] 63 degrees MUSE 10/30/2023 9:43 PM CDT [...] M.S.N . ECG ORDERABLES Performing Organization Address City/[facility] Co de Phone Number MUSE NA * Lipid Panel (07/23/2021 8:56 AM CDT) Cholesterol, Total 106 mg/dL 2021 9:35 AM CDT [facility] Comment: ----REFERENCE VALUE---- Desirable: < 200 [...] Norton APRN, C.N.P., D.N.P. LAB BLOOD ADD-ON [facility] [address] [place] [address], [facility] [place] [address] * HPV with Genotyping, PCR, ThinPrep (07/23/2021 [...] APRNN.PRaffy, D.N.P. LAB MICROBIOLOGY - GENERAL ORDERABLES [facility] [address] [place] [address], [place] ECLR [facility] [place] [address] [place] [address] from Last 3 Months or Most Recently Relevant to Health Maintenance Advance Directives For more information, please contact: [phone] * Full Code (Latest Code Status on [...] Due to: Patient not available Care Teams Materials Clerk Relationship Specialty Start Date End Date Ro Norton APRN, C.N.P., D.N.P. [address] [phone] PCP - General Family Medicine 05/07/19
--- OUTSIDE RECORDS SUMMARY | 2023-11-03 15:07 | XMS_ITS | Encounter Summary ---
Author Organization [facility] Address [address] [place] [address] Care Team Providers Care Glue Mounter Operator Name Role Phone Ro Norton APRN C.N.PRaffy, D.N.P. Primary Ca re Provider Reason for Visit * Reason Comments Shortness of Breath 53 yo presents to [facility] ED via [facility] with c/o worsening shortness of breath, cough, and headache. Patient received Fentanyl, and Ativan en-route for agitation, shortness of breath, and headache. Patient has productive cough with clear sputum. Encounter Details Date Type Department Care Team (Late Contact Info) Description 10/30/2023 9:57 PM CDT - 10/31/2023 12:05 AM CDT Emergency [facility] [address] [place] [phone] Serjio Gonsalves APRN, C.N.P., D.N.P., M.S.N. [address] [place] [phone] Acute And Chronic Respiratory Failure With Hypoxia [...] = 0.6 oz pur e alcohol) ocassionally [facility] Utilities Answer Date Recorded In the [...] often do you attend chur ch or worship services? Never 03/25/2022 Do you belong to [...] Answer Date Recorded PHQ-2 Score 2 07/31/2023 [facility] [place] of Occupat ional [facility] - Occupational Stress Questionnaire Answer Date [...] Serjio Gonsalves APRN, C.N.P., Kristin, M.S.N. 10/30/23 2034 documented in this encounter ED Notes * Serjio Gonaslves APRN, C.N.P., Kristin, M.S.N. - 10/30/2023 10:49 PM CDT SUBJECTIVE CHIEF COMPLAINT/REASON FOR VISIT Shortness of Breath (53 yo presents to the ED via [facility] with c/o worsening shortnessof breath, cough, [...] CCOD consult [address] [facility], Woody Art M.D., M.S. I appreciate his [...] and would like to do it at [facility] in [place]. 2305 CTA chest was ordered but patient was unstable to go to CT due to persistent hypoxia. EMS enroute to transport patient. Will defer CTA chest at this time until patient gets to [facility]. 2308 BUN (Blood Urea Nitrogen), [...] Serjio Gonsalves APRN, C.N.P., D.N.P., M.S.N. 10/30/23 9570 documented in this encounter Plan of Treatment Upcoming Encounters Date Type Department Care Team (Latest Contact Info) Description 11/08/2023 11:30 AM CDT Clinical Communication Virtual Review in [place], [place] [address] [place] [address] 11/15/2023 9:40 AM CDT Appointment Department of Laboratory Medicine and Pathology, [facility], in [place], [place] [address] [place] [address] Lubna Mcmillan M.D. [address] [place] [phone] 11/15/2023 10:10 AM CDT Appointment Department of Cardiovascular Diseases in [place], [place] [address] [place] [phone] Lubna Mcmillan M.D. [address] [place] [phone] Discharge Disposition: Home or Self Care 11/15/2023 1:00 PM CDT Appointment Department of Cardiac Rehabilitation in [place], [place] [address] [place] [address] Lubna Mcmillan M.D. [address] [place] [phone] 11/15/2023 3:00 PM CDT Office Visit Department of Cardiovascular Medicine in [place], [place] [address] [place] [address] Lubna Mcmillan M.D. [address] [place] [phone] 11/17/2023 2:00 PM CDT Comprehensive Visit Department of Family Medicine, [facility], in [address] [phone] Ro Norton APRN, C.N.P., D.N.P. [address] [place] [phone] 11/21/2023 11:00 AM CDT Office Visit Department of Family Medicine, [facility], in [address] [phone] Ro Norton APRN, C.N.PRaffy, D.N.P. [address] [phone] documented as of this encounter Procedures Procedure [...] C.N.P., MileNRaffyP., M.S.N . LAB BLOOD TROPONIN [facility] [address] [place] [address], [facility] CNFL [facility] [place] [address] * Lactate for Sepsis with Reflex (10/30/2023 10:28 PM CDT) Lactate, P 2.2 0.5 - 2.2 mmol/L 10/30/2023 10:55 PM CDT CNFL Blood (Blood, Venous) 10/30/2023 10:28 PM CDT 10/30/2023 10:40 PM CDT Serjio Gonsalves APRN, C.N.P., MileN.P., M.S.N . LAB BLOOD NON ADD-ON [facility] [address] [place] [address], [address] [address] * (ABNORMAL) Venous Blood Gas with Lactate, POCT, B (10/30/2023 10:26 PM CDT) [facility] pH, Venous, POCT, B 7.28(L) 7.32 [...] 10:26 PM CDT 10/30/2023 10:33 PM CDT oBlivar Bradford APRN.N.P., D.N.P., M.S.N . LAB POCT ORDERABLES - DEVICE Performing Organization Address [facility]/ZIP Co de Phone Number [facility] [address] [place] [address], [facility] in [address] [address] * (ABNORMAL) Prothrombin Time (PT) (10/30/2023 10:26 [...] APRN.NRaffyPRaffy, D.N.P., M.S.N . LAB BLOOD ADD-ON [facility] [address] [place] [address], [facility] in [address] [address] * (ABNORMAL) NT-Pro B-Type Natriuretic Peptide (BNP) (10/30/2023 10:26 PM CDT) NT-Pro BNP 1566(H) <=141 pg/mL 10/30/2023 11:17 PM CDT [facility] Comment: NT-proBNP values less than 300 [...] . LAB BLOOD ADD-ON Performing Organization Address City/[facility] Co de Phone Number [facility] [address] [place] [address], [facility] CNFL [facility] in [address] [address] * (ABNORMAL) Basic Metabolic Panel (10/30/2023 10:26 [...] C.N.P., Katelynn.N.P., M.S.N . LAB BLOOD ADD-ON [facility] [address] [place] [address], [facility] CNFL [facility] in [address] [address] * (ABNORMAL) CBC with Differential, Blood (10/30/2023 [...] . LAB BLOOD ADD-ON Performing Organization Address City/[facility] Co de Phone Number [facility] [address] [place] [address], [facility] in [address] [address] * Influenza A/B and RSV, PCR, Point [...] ORDERABLES - DEVICE Performing Organization Address [facility] Co de Phone Number [facility] [address] [place] [address], [facility] in [address] [address] * SARS Coronavirus 2, PCR Rapid Symptomatic (10/30/2023 9:50 PM CDT) SARS CoV-2, PCR, Rapid, V Undetected Undetected 10/30/2023 10:46 PM CDT CNFL SARS Coronavirus 2, Source, Rapid Swab, Nasopharynx 10/30/2023 10:43 PM CDT CNFL Swab (Nasopharynx) 10/30/2023 9:50 PM CDT 10/30/2023 10:43 PM CDT Serjio Gonsalves APRN, C.N.P., MileN.P., M.S.N . LAB MICROBIOLOGY - GENERAL ORDERABLES Performing Organization Address City/[facility] Co de Phone Number [facility] [address] [place] [address], [place] CNFL [facility] in [address] [address] * ECG 12 Lead (10/30/2023 9:43 PM CDT) Ventricular Rate ECG/Min 74 BPM MUSE AK Interval 146 ms MUSE QRSD Interval 120 ms MUSE QT Interval 434 ms MUSE QTC Interval 481 ms MUSE P [place] 70 degrees MUSE R [place] 108 degrees MUSE T Wave [place] 63 degrees MUSE 10/30/2023 9:43 PM CDT [...] M.S.N . ECG ORDERABLES Performing Organization Address [facility]/ZIP Co de Phone Number MUSE NA documented [...] documented as of this encounter Care Teams Glue Mounter Operator Relationship Specialty Start Date End Date Ro Norton APRN, C.N.P., D.N.P. [address] [phone] PCP - General Family Medicine 05/07/19 documented as of this encounter
--- OUTSIDE RECORDS SUMMARY | 2023-11-03 15:08 | XMS_ITS | Encounter Summary ---
Author Organization [facility] Address [address] [place] [address] Care Team Providers Care Control And Recovery Combat Rescue Name Role Phone Ro Norton APRN, C.N.P., D.N.P. Primary Ca re Provider Reason for Visit * Reason Comments tooth infection Encounter Details Date Type Department Care Team (Late st Contact Info) Description 09/07/2023 1:30 PM CDT Telemedicine Department of Family Medicine, [facility], in [place], [place] [address] [place] [phone] Valentin Andrea M.D. [address] [place] [phone] Pain Teeth (Primary Dx) Discharge Disposition: Home or Self Care Social History Tobacco Use Types Packs/Day Years Used Date Smoking Tobacco: Every Day Cigarettes 0.5 30 Smokeless Tobacco: Never Comments:4-5 cigarettes a da y Alcohol Use Standard Drinks/Week Comments Not Currently 0 (1 standard drink = 0.6 oz pur e alcohol) ocassionally [facility] Utilities Answer Date Recorded In the past 12 months has e [employer], gas, oil, or water [employer] threatened to shut off services in your [...] any clubs o r organizations such as temple groups, unions, fraternal [...] Answer Date Recorded PHQ-2 Score 2 07/31/2023 [facility] [place] of Occupat ional Health - Occupational Stress [...] living situation today? I have a [facility] place to live 06/06/2023 Education Answer Date [...] AM CDT Clinical Communication Virtual Review in [place], [place] 200 [place] [address] 11/15/2023 9:40 AM CDT Appointment Department of Laboratory Medicine and Pathology, [facility] in [address] [phone] Lubna Mcmillan M.D. [address] [place] [phone] 11/15/2023 10:10 AM CDT Appointment Department of Cardiovascular Diseases in [address] [phone] Lubna Mcmillan M.D. [address] [place] [phone] Discharge Disposition: Home or Self Care 11/15/2023 1:00 PM CDT Appointment Department of Cardiac Rehabilitation in [address] [phone] Lubna Mcmillan M.D. [address] [place] [address] 11/15/2023 3:00 PM CDT Office Visit Department of Cardiovascular Medicine in [place], [place] [address] [place] [address] Lubna Mcmillan M.D. [address] [place] [phone] 11/17/2023 2:00 PM CDT Comprehensive Visit Department of Family Medicine, [facility], in [address] [phone] Ro Norton APRN, C.N.P., D.N.P. [address] [place] [phone] 11/21/2023 11:00 AM CDT Office Visit Department of Family Medicine, [facility], in [address] [phone] Ro Norton APRN, C.N.P., D.N.P. [address] [place] [phone] documented as of this encounter Visit Diagnoses Diagnosis Pain Teeth- Primary documented in this encounter Care Teams Control And Recovery Combat Rescue Relationship Specialty Start Date End Date Ro Norton APRN, C.N.P., D.N.P. [address] [place] [phone] PCP - General Family Medicine 05/07/19 documented as of this encounter
--- OUTSIDE RECORDS SUMMARY | 2023-11-03 15:08 | XMS_ITS | Encounter Summary ---
Author Organization [facility] Address [address] [place] [address] Care Team Providers Care Pad Tufter Name Role Phone Ro Norton APRN, C.N.P., D.N.P. Primary Ca re Provider Reason for Visit * Reason Comments Med Refill Encounter Details Date Type Department Care Team (Late st Contact Info) Description 08/21/2023 Refill Department of Cardiovascular Medicine in [place], [place] [address] [place] [phone] Lubna Mcmillan M.D. [address] [place] [phone] Med Refill Social History Tobacco Use Types Packs/Day Years Used Date Smoking Tobacco: Every Day Cigarettes 0.5 30 Smokeless Tobacco: Never Comments:4-5 cigarettes a da y Alcohol Use Standard Drinks/Week Comments Not Currently 0 (1 standard drink = 0.6 oz pur e alcohol) ocassionally [facility] Utilities Answer Date Recorded In [...] any clubs o r organizations such as religion groups, unions, fraternal [...] Answer Date Recorded PHQ-2 Score 2 07/31/2023 [facility] [place] of Occupat ional Health - Occupational Stress [...] your living situation today? 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 Found prior authorization for another prescription for the same medication: Approved Pharmacy [facility] [place], [place] - [address] [facility] documented in this encounter Plan of Treatment Upcoming Encounters Date Type Department Care Team (Latest Contact Info) Description 11/08/2023 11:30 AM CDT Clinical Communication Virtual Review in [place], [place] 200 [place] [address] 11/15/2023 9:40 AM CDT Appointment Department of Laboratory Medicine and Pathology, [facility] in [address] [phone] Lubna Mcmillan M.D. [address] [place] [phone] 11/15/2023 10:10 AM CDT Appointment Department of Cardiovascular Diseases in [address] [phone] Lubna Mcmillan M.D. [address] [place] [phone] Discharge Disposition: Home or Self Care 11/15/2023 1:00 PM CDT Appointment Department of Cardiac Rehabilitation in [address] [phone] Lubna Mcmillan M.D. [address] [place] [phone] 11/15/2023 3:00 PM CDT Office Visit Department of Cardiovascular Medicine in [address] [phone] Lubna Mcmillan M.D. [address] [place] [phone] 11/17/2023 2:00 PM CDT Comprehensive Visit Department of Family [facility], [facility], in [address] [phone] Ro Norton APRN, C.N.P., D.N.P. [address] [place] [phone] 11/21/2023 11:00 AM CDT Office Visit Department of Family [facility], [facility], in [address] [phone] Ro Norton APRN, oBlivar.N.P., D.N.P. [address] [place] [phone] documented as of this encounter Visit Diagnoses Not on filedocumented in this encounter Care Teams Pad Tufter Relationship Specialty Start Date End Date Ro Norton APRN C.N.P., D.N.P. [address] [place] [phone] PCP - General Family Medicine 05/07/19 documented as of this encounter
--- OUTSIDE RECORDS SUMMARY | 2023-11-03 15:08 | XMS_ITS | Encounter Summary ---
Author Organization [facility] Address [address] [place] [address] Care Team Providers Care Salsa Dance Instructor Name Role Phone Ro Norton APRN, C.N.P., D.N.P. Primary Ca re Provider Reason for Visit * Reason Onset Date Comments Med Question 09/27/2023 Encounter Details Date Type Department Care Team (Late st Contact Info) Description 09/27/2023 Nurse Triage Department of Family Medicine, [facility], in [address] [phone] Evelia Hernandez, R.N. [address] [place] [phone] Med Question Social History Tobacco Use Types Packs/Day Years Used Date Smoking Tobacco: Every Day Cigarettes 0.5 30 Smokeless Tobacco: Never Comments:4-5 cigarettes a da y Alcohol Use Standard Drinks/Week Comments Not Currently 0 (1 standard drink = 0.6 oz pur e alcohol) ocassionally [facility] Utilities Answer Date Recorded In the [...] How often do you attend chur or mandaeism services? Never 03/25/2022 Do you [...] Answer Date Recorded PHQ-2 Score 2 07/31/2023 [facility] [place] of Occupat ional Health - Occupational Stress [...] your living situation today? I have a [facility] place to live 06/06/2023 Education Answer Date [...] AM CDT Clinical Communication Virtual Review in [place], [place] [address] [place] [phone] 11/15/2023 9:40 AM CDT Appointment Department of Laboratory Medicine and Pathology, [facility] in [place], [place] [address] [place] [phone] Lubna Mcmillan M.D. [address] [place] [phone] 11/15/2023 10:10 AM CDT Appointment Department of Cardiovascular Diseases in [place], [place] [address] [place] [phone] Lubna Mcmillan M.D. [address] [place] [phone] Discharge Disposition: Home or Self Care 11/15/2023 1:00 PM CDT Appointment Department of Cardiac Rehabilitation in [place], [place] [address] [place] [phone] Lubna Mcmillan M.D. [address] [place] [phone] 11/15/2023 3:00 PM CDT Office Visit Department of Cardiovascular Medicine in [place], [place] [address] [place] [phone] Lubna Mcmillan M.D. [address] [place] [phone] 11/17/2023 2:00 PM CDT Comprehensive Visit Department of Family Medicine, [facility], in [address] [phone] Ro Norton APRN, C.N.P., D.N.P. [address] [place] [phone] 11/21/2023 11:00 AM CDT Office Visit Department of Family Medicine, [facility], in [address] [place] [phone] Ro Norton APRN, C.N.Kirsty, D.N.P. [address] [place] [phone] documented as of this encounter Visit Diagnoses Not on filedocumented in this encounter Care Teams Salsa Dance Instructor Relationship Specialty Start Date End Date Ro Norton APRN, C.N.Taylor., D.N.P. [address] [place] [phone] PCP - General Family Medicine 05/07/19 documented as of this encounter
--- OUTSIDE RECORDS SUMMARY | 2023-11-03 15:08 | XMS_ITS | Encounter Summary ---
Author Organization [facility] Address [address] [place] [address] Care Team Providers Care Fuller Brush Man Name Role Phone Ro Norton APRN, C.N.P., D.N.P. Primary Ca re Provider Encounter Details Date Type Department Care Team (Late st Contact Info) Description 09/27/2023 Patient Self-Triage [facility] Symptom Career Development Coordinator/Teacher, Provider Social History Tobacco Use Types Packs/Day Years Used Date Smoking Tobacco: Every Day Cigarettes 0.5 30 Smokeless Tobacco: Never Comments:4-5 cigarettes a da y Alcohol Use Standard Drinks/Week Comments Not Currently 0 (1 standard drink = 0.6 oz pur e alcohol) ocassionally [facility] Utilities Answer Date Recorded In the past 12 months has e [employer], gas, oil, or water [employer] threatened to shut off services in your [...] often do you attend chur ch or synagogue services? Never 03/25/2022 Do you [...] Answer Date Recorded PHQ-2 Score 2 07/31/2023 [facility] Questionnaire Answer Date Recorded [...] your living situation today? I have a [facility] place to live 06/06/2023 Education Answer Date [...] AM CDT Clinical Communication Virtual Review in [place], [place] [address] [place] [phone] 11/15/2023 9:40 AM CDT Appointment Department of Laboratory Medicine and Pathology, [facility] in [place], [place] [address] [place] [phone] Lubna Mcmillan M.D. [address] [place] [phone] 11/15/2023 10:10 AM CDT Appointment Department of Cardiovascular Diseases in [place], [place] [address] [place] [phone] Lubna Mcmillan M.D. [address] [place] [phone] Discharge Disposition: Home or Self Care 11/15/2023 1:00 PM CDT Appointment Department of Cardiac Rehabilitation in [place], [place] [address] [place] [address] Lubna Mcmillan M.D. [address] [place] [address] 11/15/2023 3:00 PM CDT Office Visit Department of Cardiovascular Medicine in [place], [place] [address] [place] [address] Lubna Mcmillan M.D. [address] [place] [phone] 11/17/2023 2:00 PM CDT Comprehensive Visit Department of Family Medicine, [facility], in [address] [phone] Ro Norton APRN, C.N.P., D.N.P. [address] [place] [phone] 11/21/2023 11:00 AM CDT Office Visit Department of Family Medicine, [facility], in [address] [phone] Ro Norton APRN, C.N.P., D.N.P. [address] [place] [phone] documented as of this encounter Visit Diagnoses Not on filedocumented in this encounter Care Teams Fuller Brush Man Relationship Specialty Start Date End Date Ro Norton APRN C.N.P., D.N.P. [address] [place] [phone] PCP - General Family Medicine 05/07/19 documented as of this encounter
--- OUTSIDE RECORDS SUMMARY | 2023-11-03 15:08 | XMS_ITS | Encounter Summary ---
Author Organization [facility] Address [address] [place] [address] Care Team Providers Care Production Supv Name Role Phone Ro Norton APRN, C.N.P., D.N.P. Primary Ca re Provider Encounter Details Date Type Department Care Team (Late st Contact Info) Description 09/11/2023 Clinical Communication Pharmacy Prior Auth RO [phone] Salome Alfaro Social History Tobacco Use Types Packs/Day Years Used Date Smoking Tobacco: Every Day Cigarettes 0.5 30 Smokeless Tobacco: Never Comments:4-5 cigarettes a da y Alcohol Use Standard Drinks/Week Comments Not Currently 0 (1 standard drink = 0.6 oz pur e alcohol) ocassionally [facility] Utilities Answer Date Recorded In the past 12 months has e [employer], gas, oil, or water [employer] threatened to shut off services in your [...] Answer Date Recorded PHQ-2 Score 2 07/31/2023 [facility] - Occupational Stress Questionnaire Answer Date [...] your living situation today? I have a [facility] place to live 06/06/2023 Education Answer [...] AM CDT Clinical Communication Virtual Review in [place], [place] 200 [place] [address] 11/15/2023 9:40 AM CDT Appointment Department of Laboratory Medicine and Pathology, [facility], in [place], [place] [address] [place] [phone] Lubna Mcmillan M.D. [address] [place] [phone] 11/15/2023 10:10 AM CDT Appointment Department of Cardiovascular Diseases in [place], [place] [address] [place] [phone] Lubna Mcmillan M.D. [address] [place] [phone] Discharge Disposition: Home or Self Care 11/15/2023 1:00 PM CDT Appointment Department of Cardiac Rehabilitation in [place], [place] [address] [place] [phone] Lubna Mcmillan M.D. [address] [place] [phone] 11/15/2023 3:00 PM CDT Office Visit Department of Cardiovascular Medicine in [place], [place] [address] [place] [phone] Lubna Mcmillan M.D. [address] [place] [phone] 11/17/2023 2:00 PM CDT Comprehensive Visit Department of Family Medicine, [facility], in [address] [phone] Ro Norton APRN, C.N.P., D.N.P. [address] [place] [phone] 11/21/2023 11:00 AM CDT Office Visit Department of Family Medicine, [facility], in [address] [phone] Ro Norton APRN C.N.P., D.N.P. [address] [place] [phone] documented as of this encounter Visit Diagnoses Not on filedocumented in this encounter Care Teams Production Supv Relationship Specialty Start Date End Date Ro Norton APRN, C.N.P., D.N.P. [address] [phone] PCP - General Family Medicine 05/07/19 documented as of this encounter
--- OUTSIDE RECORDS SUMMARY | 2023-11-03 15:08 | XMS_ITS | Encounter Summary ---
Author Organization [facility] Address [address] [place] [address] Care Team Providers Care Senior Net Architect Name Role Phone Ro Norton APRN, C.N.P., [...] CDT Telemedicine Department of Family Medicine, [facility], in [address] [phone] Corina Nur M.D. [address] [place] [phone] Chronic Obstructive Pulmonary Disease Exacerbation (HCC) Discharge [...] 0.6 oz pur e alcohol) ocassionally [facility] Utilities Answer Date Recorded In the past 12 months has [employer], gas, oil, or water company threatened to [...] How often do you attend chur or adventist services? Never 03/25/2022 Do you belong to any clubs o r organizations such as rastafarian groups, unions, fraternal [...] Answer Date Recorded PHQ-2 Score 2 07/31/2023 [facility] [place] of Occupat ional Health - Occupational Stress [...] your living situation today? I have a [facility] to live 06/06/2023 Education Answer Date [...] audio/video technology by Corina Nur M.D. in [facility] [place] [facility] to the patient in the patient's home. [...] AM CDT Clinical Communication Virtual Review in [place], [place] 200 [place] [address] 11/15/2023 9:40 AM CDT Appointment Department of Laboratory Medicine and Pathology, [facility] in [place], [place] [address] [place] [phone] Lubna Mcmillan M.D. [address] [place] [phone] 11/15/2023 10:10 AM CDT Appointment Department of Cardiovascular Diseases in [place], [place] [address] [place] [phone] Lubna Mcmillan M.D. [address] [place] [phone] Discharge Disposition: Home or Self Care 11/15/2023 1:00 PM CDT Appointment Department of Cardiac Rehabilitation in [place], [place] [address] [place] [phone] Lubna Mcmillan M.D. [address] [place] [phone] 11/15/2023 3:00 PM CDT Office Visit Department of Cardiovascular Medicine in [place], [place] [address] [place] [phone] Lubna Mcmillan M.D. [address] [place] [phone] 11/17/2023 2:00 PM CDT Comprehensive Visit Department of Family Medicine, [facility], in [address] [phone] Ro Norton APRN, C.NDean, D.N.P. [address] [place] [phone] 11/21/2023 11:00 AM CDT Office Visit Department of Family Medicine, [facility], in [address] [place] [phone] Ro Norton APRN, C.NDean, D.N.P. [address] [place] [address], [place] [phone] documented as of this encounter Visit Diagnoses Diagnosis Chronic Obstructive Pulmonary Disease Exacerbation (HCC) documented in this encounter Care Teams Senior Net Architect Relationship Specialty Start Date End Date Ro Norton APRN, C.NLisandro., D.N.P. [address] [place] [phone] PCP - General Family Medicine 05/07/19 documented as of this encounter
--- OUTSIDE RECORDS SUMMARY | 2023-11-03 15:08 | XMS_ITS | Encounter Summary ---
Author Organization [facility] Address [address] [place] [address] Care Team Providers Care Electrical Engineering Intern Name Role Phone Ro Norton APRN, C.N.P., D.N.P. Primary Ca re Provider Reason for Visit * Reason Comments Infection Encounter Details Date Type Department Care Team (Late st Contact Info) Description 08/14/2023 9:30 AM CDT Telemedicine Department of Family Medicine, [facility], in [place], [place] [address] [place] [phone] Tc Bee D.O. [address] [place] [phone] Pain Teeth (Primary Dx) Discharge Disposition: Home or Self Care Social History Tobacco Use Types Packs/Day Years Used Date Smoking Tobacco: Every Day Cigarettes 0.5 30 Smokeless Tobacco: Never Comments:4-5 cigarettes a da y Alcohol Use Standard Drinks/Week Comments Not Currently 0 (1 standard drink = 0.6 oz pur e alcohol) ocassionally [facility] Utilities Answer Date Recorded In the past 12 months has e [employer], gas, oil, or water [employer] threatened to shut off services in your [...] How often do you attend chur or jainism services? Never 03/25/2022 Do you [...] Answer Date Recorded PHQ-2 Score 2 07/31/2023 [facility] [place] of Occupat ional Health - Occupational Stress [...] at her home I am in the [facility]. HISTORY OF PRESENT ILLNESS Ms. [...] CDT Clinical Communication Virtual Review in [place], [place] 200 [place] [address] 11/15/2023 9:40 AM CDT Appointment Department of Laboratory Medicine and Pathology, [facility], in [place], [place] [address] [place] [phone] Lubna Mcmillan M.D. [address] [place] [phone] 11/15/2023 10:10 AM CDT Appointment Department of Cardiovascular Diseases in [place], [place] [address] [place] [phone] Lubna Mcmillan M.D. [address] [place] [phone] Discharge Disposition: Home or Self Care 11/15/2023 1:00 PM CDT Appointment Department of Cardiac Rehabilitation in [place], [place] [address] [place] [phone] Lubna Mcmillan M.D. [address] [place] [phone] 11/15/2023 3:00 PM CDT Office Visit Department of Cardiovascular Medicine in [place], [place] [address] [place] [phone] Lubna Mcmillan M.D. [address] [place] [phone] 11/17/2023 2:00 PM CDT Comprehensive Visit Department of Family Medicine, [facility], in [address] [phone] Ro Norton APRN, C.N.P., D.N.P. [address] [place] [phone] 11/21/2023 11:00 AM CDT Office Visit Department of Family Medicine, [facility], in [address] [phone] Ro Norton APRN, C.N.P., D.N.P. [address] [place] [phone] documented as of this encounter Visit Diagnoses Diagnosis Pain Teeth- Primary documented in this encounter Care Teams Electrical Engineering Intern Relationship Specialty Start Date End Date Ro Norton APRN, C.N.P., D.N.P. [address] [place] [phone] PCP - General Family Medicine 05/07/19 documented as of this encounter
--- OUTSIDE RECORDS SUMMARY | 2023-11-03 15:08 | XMS_ITS | Encounter Summary ---
Author Organization [facility] Address [address] [place] [address] Care Team Providers Care Rental Sales Representative Name Role Phone Ro Norton APRN, C.N.P., D.N.P. Primary Ca re Provider Reason for Visit * Reason Comments Other Tooth infection Encounter Details Date Type Department Care Team (Late st Contact Info) Description 09/27/2023 3:00 PM CDT Telemedicine Department of Family Medicine, [facility], in [place], [place] [address] [place] [phone] Berna Snow APRN, C.N.P. [address] [place] [phone] Abscess Dental (Primary Dx) Discharge Disposition: Home [...] has e electric, gas, oil, or water [employer] threatened to shut off services in your [...] How often do you attend chur or samaritan services? Never 03/25/2022 Do you [...] Answer Date Recorded PHQ-2 Score 2 07/31/2023 [facility] [place] of Occupat ional Health - Occupational Stress [...] your living situation today? I have a [facility] place to live 06/06/2023 Education Answer [...] this encounter Progress Notes * Berna Snow, APPOINTMENT SPECIALIST, C.N.P. - 09/27/2023 3:00 PM CDT SUBJECTIVE [...] technology by Berna Snow APRN, C.N.P. in [facility] to the patient in patient's home. documented in this encounter Plan of Treatment Upcoming Encounters Date Type Department Care Team (Latest Contact Info) Description 11/08/2023 11:30 AM CDT Clinical Communication Virtual Review in [address] [phone] 11/15/2023 9:40 AM CDT Appointment Department of Laboratory Medicine and Pathology, [facility] in [address] [phone] Lubna Mcmillan M.D. [address] [place] [phone] 11/15/2023 10:10 AM CDT Appointment Department of Cardiovascular Diseases in [address] [phone] Lubna Mcmillan M.D. [address] [place] [phone] Discharge Disposition: Home or Self Care 11/15/2023 1:00 PM CDT Appointment Department of Cardiac Rehabilitation in [place], [place] [address] [place] [phone] Lubna Mcmillan M.D. [address] [place] [phone] 11/15/2023 3:00 PM CDT Office Visit Department of Cardiovascular Medicine in [place], [place] [address] [place] [phone] Lubna Mcmillan M.D. [address] [place] [phone] 11/17/2023 2:00 PM CDT Comprehensive Visit Department of Family Medicine, [facility], in [address] [phone] Ro Norton APRN C.N.P., D.N.P. [address] [place] [phone] 11/21/2023 11:00 AM CDT Office Visit Department of Family Medicine, [facility], in [address] [phone] Ro Norton APRN, C.N.P., D.N.P. [address] [place] [phone] documented as of this encounter Visit Diagnoses Diagnosis Abscess Dental- Primary documented in this encounter Care Teams Rental Sales Representative Relationship Specialty Start Date End Date Ro Norton APRN C.N.P., D.N.P. [address] [place] [phone] PCP - General Family Medicine 05/07/19 documented as of this encounter
--- OUTSIDE RECORDS SUMMARY | 2023-11-03 15:08 | XMS_ITS | Encounter Summary ---
Author Organization [facility] Address [address] [place] [address] Care Team Providers Care Cabin Agent Name Role Phone Ro Norton APRN, C.N.P., D.N.P. Primary Ca re Provider Encounter Details Date Type Department Care Team (Late st Contact Info) Description 08/22/[address] [facility] [address] [phone] Karine Coles, Pharm.D., R.Ph. [address] [place] [phone] Social History Tobacco Use Types Packs/Day Years Used Date Smoking Tobacco: Every Day Cigarettes 0.5 30 Smokeless Tobacco: Never Comments:4-5 cigarettes a da y Alcohol Use Standard Drinks/Week Comments Not Currently 0 (1 standard drink = 0.6 oz pur e alcohol) ocassionally [facility] Utilities Answer Date Recorded In [...] Answer Date Recorded PHQ-2 Score 2 07/31/2023 [facility] [place] of Occupat ional Health - Occupational Stress [...] your living situation today? I have a [facility] place to live 06/06/2023 Education Answer [...] AM CDT Clinical Communication Virtual Review in [place], [place] [address] [place] [phone] 11/15/2023 9:40 AM CDT Appointment Department of Laboratory Medicine and Pathology, [facility], in [place], [place] [address] [place] [phone] Lubna Mcmillan M.D. [address] [place] [phone] 11/15/2023 10:10 AM CDT Appointment Department of Cardiovascular Diseases in [place], [place] [address] [place] [phone] Lubna Mcmillan M.D. [address] [place] [phone] Discharge Disposition: Home or Self Care 11/15/2023 1:00 PM CDT Appointment Department of Cardiac Rehabilitation in [place], [place] [address] [place] [phone] Lubna Mcmillan M.D. [address] [place] [phone] 11/15/2023 3:00 PM CDT Office Visit Department of Cardiovascular Medicine in [place], [place] [address] [place] [phone] Lubna Mcmillan M.D. [address] [place] [phone] 11/17/2023 2:00 PM CDT Comprehensive Visit Department of Family Medicine, [facility], in [address] [phone] Ro Norton APRN, C.N.P., D.N.P. [address] [place] [phone] 11/21/2023 11:00 AM CDT Office Visit Department of Family Medicine, [facility], in [address] [phone] Ro Norton APRN, C.N.P., D.N.P. [address] [place] [phone] documented as of this encounter Visit Diagnoses Not on filedocumented in this encounter Care Teams Cabin Agent Relationship Specialty Start Date End Date Ro Norton APRN, C.N.P., D.N.P. [address] [phone] PCP - General Family Medicine 05/07/19 documented as of this encounter
--- OUTSIDE RECORDS SUMMARY | 2023-11-03 15:08 | XMS_ITS | Encounter Summary ---
Author Organization [facility] Address [address] [place] [address] Care Team Providers Care Gear Cutting Machine Operator Name Role Phone Ro Norton APRN, C.N.PRaffy, D.N.P. Primary Ca re Provider Reason for Referral * Medication Prior Authorization - Denied Specialty Diagnoses / Procedures Referred By Maria L t Referred To Contact Ro Norton APRN, C.N.P., D.N.P. [address] [place] [phone] Referral ID Status Reason Start Date Expiration Date Visits Re quested Visits Authorized [id number] Denied 1 1 Reason for Visit * Reason Comments Med Refill Encounter Details Date Type Department Care Team (Late st Contact Info) Description 08/25/2023 Refill Department of Family Medicine, [facility], in [address] [phone] Ro Norton APRN, [place].N.P., D.N.P. [address] [place] [phone] Med Refill Social History Tobacco Use Types Packs/Day Years Used Date Smoking Tobacco: Every Day Cigarettes 0.5 30 Smokeless Tobacco: Never Comments:4-5 cigarettes a da y Alcohol Use Standard Drinks/Week Comments Not Currently 0 (1 standard drink = 0.6 oz pur e alcohol) ocassionally [facility] Utilities Answer Date Recorded In the past 12 months has th e [employer], gas, oil, or water company threatened to [...] often do you attend chur ch or denominational services? Never 03/25/2022 Do you belong to any clubs o r organizations such as sikh groups, unions, fraternal [...] Date Recorded PHQ-2 Score 2 07/31/2023 [facility] [place] of Occupat ional Health - Occupational Stress [...] AM CDT Clinical Communication Virtual Review in [place], [place] [address] [place] [phone] 11/15/2023 9:40 AM CDT Appointment Department of Laboratory Medicine and Pathology, [facility] in [place], [place] [address] [place] [phone] Lubna Mcmillan M.D. [address] [place] [phone] 11/15/2023 10:10 AM CDT Appointment Department of Cardiovascular Diseases in [place], [place] [address] [place] [phone] Lubna Mcmillan M.D. [address] [place] [phone] Discharge Disposition: Home or Self Care 11/15/2023 1:00 PM CDT Appointment Department of Cardiac Rehabilitation in [place], [place] [address] [place] [phone] Lubna Mcmillan M.D. [address] [place] [phone] 11/15/2023 3:00 PM CDT Office Visit Department of Cardiovascular Medicine in [place], [place] [address] [place] [phone] Lubna Mcmillan M.D. [address] [place] [phone] 11/17/2023 2:00 PM CDT Comprehensive Visit Department of Family Medicine, [facility], in [address] [phone] Ro Norton APRN, C.NRaffyP., D.N.P. [address] [place] [address], [place] [phone] 11/21/2023 11:00 AM CDT Office Visit Department of Family Medicine, [facility], in [address] [place] [phone] Ro Norton APRN, C.N.Kirsty, D.N.P. [address] [place] [phone] documented as of this encounter Visit Diagnoses Not on filedocumented in this encounter Care Teams Gear Cutting Machine Operator Relationship Specialty Start Date End Date Ro Norton APRN, C.N.Taylor., D.N.P. [address] [place] [phone] PCP - General Family Medicine 05/07/19 documented as of this encounter
--- OUTSIDE RECORDS SUMMARY | 2023-11-03 15:08 | XMS_ITS | Encounter Summary ---
Author Organization [facility] Address [address] [place] [address] Care Team Providers Care Real Estate Assistant Name Role Phone Ro Norton APRN, C.N.P., D.N.P. Primary Ca re Provider Encounter Details Date Type Department Care Team (Late st Contact Info) Description 09/27/2023 Patient Self-Triage [facility]CTED [facility] Symptom Ornamental Plasterer Helper, Provider Social History Tobacco Use Types Packs/Day Years Used Date Smoking Tobacco: Every Day Cigarettes 0.5 30 Smokeless Tobacco: Never Comments:4-5 cigarettes a da y Alcohol Use Standard Drinks/Week Comments Not Currently 0 (1 standard drink = 0.6 oz pur e alcohol) ocassionally [facility] Utilities Answer Date Recorded In the past 12 months has e [employer], gas, oil, or water [employer] threatened to shut off services in your [...] often do you attend chur ch or jew services? Never 03/25/2022 Do you belong to any clubs o r organizations such as rastafari groups, unions, fraternal [...] Answer Date Recorded PHQ-2 Score 2 07/31/2023 [facility]ational [facility] Questionnaire Answer Date Recorded [...] AM CDT Clinical Communication Virtual Review in [place], [place] [address] [place] [phone] 11/15/2023 9:40 AM CDT Appointment Department of Laboratory Medicine and Pathology, [facility] in [place], [place] [address] [place] [phone] Lubna Mcmillan M.D. [address] [place] [phone] 11/15/2023 10:10 AM CDT Appointment Department of Cardiovascular Diseases in [place], [place] [address] [place] [phone] Lubna Mcmillan M.D. [address] [place] [phone] Discharge Disposition: Home or Self Care 11/15/2023 1:00 PM CDT Appointment Department of Cardiac Rehabilitation in [place], [place] [address] [place] [phone] Lubna Mcmillan M.D. [address] [place] [phone] 11/15/2023 3:00 PM CDT Office Visit Department of Cardiovascular Medicine in [place], [place] [address] [place] [address] Lubna Mcmillan M.D. [address] [place] [phone] 11/17/2023 2:00 PM CDT Comprehensive Visit Department of Family Medicine, [facility], in [address] [phone] Ro Norton APRN, C.N.P., D.N.P. [address] [place] [phone] 11/21/2023 11:00 AM CDT Office Visit Department of Family Medicine, [facility], in [address] [phone] Ro Norton APRN, C.N.P., D.N.P. [address] [place] [phone] documented as of this encounter Visit Diagnoses Not on filedocumented in this encounter Care Teams Real Estate Assistant Relationship Specialty Start Date End Date Ro Norton APRN C.N.P., D.N.P. [address] [place] [phone] PCP - General Family Medicine 05/07/19 documented as of this encounter
--- OUTSIDE RECORDS SUMMARY | 2023-11-03 15:08 | XMS_ITS | Encounter Summary ---
Author Organization [facility] Address [address] [place] [address] Care Team Providers Care Verifier Operator Name Role Phone Ro Norton APRN, [...] alcohol) ocassionally [facility] Utilities Answer Date Recorded In the past 12 months has e electric, gas, oil, or water [employer] threatened to shut off services in your [...] often do you attend chur ch or pentecostal services? Never 03/25/2022 Do you belong to [...] Answer Date Recorded PHQ-2 Score 2 07/31/2023 [facility] - Occupational Stress Questionnaire Answer Date [...] your living situation today? I have a [facility] place to live 11/01/2023 Education [...] AM CDT Clinical Communication Virtual Review in [place], [place] [address] [place] [phone] 11/15/2023 9:40 AM CDT Appointment Department of Laboratory Medicine and Pathology, [facility], in [place], [place] [address] [place] [phone] Lubna Mcmillan M.D. [address] [place] [phone] 11/15/2023 10:10 AM CDT Appointment Department of Cardiovascular Diseases in [place], [place] [address] [place] [phone] Lubna Mcmillan M.D. [address] [place] [phone] Discharge Disposition: Home or Self Care 11/15/2023 1:00 PM CDT Appointment Department of Cardiac Rehabilitation in [place], [place] [address] [place] [phone] Lubna Mcmillan M.D. [address] [place] [phone] 11/15/2023 3:00 PM CDT Office Visit Department of Cardiovascular Medicine in [place], [place] [address] [place] [phone] Lubna Mcmillan M.D. [address] [place] [phone] 11/17/2023 2:00 PM CDT Comprehensive Visit Department of Family Medicine, [facility], in [address] [phone] Ro Norton APRN, C.N.P., D.N.P. [address] [place] [phone] 11/21/2023 11:00 AM CDT Office Visit Department of Family Medicine, [facility], in [address] [phone] Ro Norton APRN, C.N.P., D.N.P. [address] [place] [phone] documented as of this encounter Visit Diagnoses Not on filedocumented in this encounter Additional Health Concerns Infection Onset Date Last Indicated Resolved Time COVID19 Pending 10/30/2023 10/30/2023 10/30/2023 1 1:05 PM CDT COVID19 Pending 10/31/2023 10/31/2023 10/31/2023 3 :31 AM CDT documented as of this encounter Care Teams Verifier Operator Relationship Specialty Start Date End Date Ro Norton APRN, C.N.P., D.N.P. [address] [phone] PCP - General Family Medicine 05/07/19 documented as of this encounter
--- OUTSIDE RECORDS SUMMARY | 2023-11-03 15:08 | XMS_ITS | Encounter Summary ---
Author Organization [facility] Address [address] [place] [address] Care Team Providers Care Tower Observer Name Role Phone Ro Norton APRN, C.N.P., D.N.P. Primary Ca re Provider Encounter Details Date Type Department Care Team (Late st Contact Info) Description 10/03/2023 Orders Only [facility] [address] [place] [phone] Ro Norton APRN, C.N.P., D.N.P. [address] [place] [phone] Screening Cancer Colon Social History Tobacco [...] any clubs o r organizations such as moravian groups, unions, fraternal [...] Date Recorded PHQ-2 Score 2 07/31/2023 [facility] [place] of Occupat ional Health - Occupational Stress [...] living situation today? I have a [facility] place to live 06/06/2023 Education Answer [...] AM CDT Clinical Communication Virtual Review in [place], [place] [address] [place] [phone] 11/15/2023 9:40 AM CDT Appointment Department of Laboratory Medicine and Pathology, [facility], in [place], [place] [address] [place] [phone] Lubna Mcmillan M.D. [address] [place] [phone] 11/15/2023 10:10 AM CDT Appointment Department of Cardiovascular Diseases in [place], [place] [address] [place] [phone] Lubna Mcmillan M.D. [address] [place] [phone] Discharge Disposition: Home or Self Care 11/15/2023 1:00 PM CDT Appointment Department of Cardiac Rehabilitation in [place], [place] [address] [place] [phone] Lubna Mcmillan M.D. [address] [place] [phone] 11/15/2023 3:00 PM CDT Office Visit Department of Cardiovascular Medicine in [place], [place] [address] [place] [phone] Lubna Mcmillan M.D. [address] [place] [phone] 11/17/2023 2:00 PM CDT Comprehensive Visit Department of Family Medicine, [facility], in [address] [phone] Ro Norton APRN, C.N.P., D.N.P. [address] [place] [phone] 11/21/2023 11:00 AM CDT Office Visit Department of Family Medicine, [facility], in [address] [phone] Ro Norton APRN, C.N.P., D.N.P. [address] [place] [phone] Scheduled Orders Name Type Priority Associated Diagnoses Orde r Schedule Cologuard - Sent Out Lab Lab Routine Screening Cancer Colon Expected: 10/17/2023, Expires: 01/02/2025 documented as of this encounter Visit Diagnoses Diagnosis Screening Cancer Colon documented in this encounter Care Teams Tower Observer Relationship Specialty Start Date End Date Ro Norton APRN, C.N.P., D.N.P. [address] [phone] PCP - General Family Medicine 05/07/19 documented as of this encounter
--- OUTSIDE RECORDS SUMMARY | 2023-11-03 15:08 | XMS_ITS | Encounter Summary ---
Author Organization [facility] Address [address] [place] [address] Care Team Providers Care Airways Control Specialist Name Role Phone Ro Norton APRN, C.N.P., D.N.P. Primary Ca re Provider Reason for Visit * Reason Onset Date Comments Rx Prior Authorization 09/11/2023 ensure Rx Denial 09/11/2023 ENSURE Encounter Details Date Type Department Care Team (Latest Contact Info) Description 09/11/2023 Clinical Communication Department of Family Medicine, [facility], in [address] [phone] Ro Norton APRN, C.N.P., D.N.P. [address] [place] [phone] Rx Prior Authorization (ensure); Rx Denial (ENSURE ) Social History Tobacco Use Types Packs/Day Years Used Date Smoking Tobacco: Every Day Cigarettes 0.5 30 Smokeless Tobacco: Never Comments:4-5 cigarettes a da y Alcohol Use Standard Drinks/Week Comments Not Currently 0 (1 standard drink = 0.6 oz pur e alcohol) ocassionally [facility] Utilities Answer Date Recorded In the [...] week 03/25/2022 How often do you attend [facility] or anabaptist services? Never 03/25/2022 Do you belong to [...] Answer Date Recorded PHQ-2 Score 2 07/31/2023 [facility] - [facility]ational Stress Questionnaire [...] Release Rx: Open this encounter, go to [employer], and click on the medication. If the [...] AM CDT Clinical Communication Virtual Review in [place], [place] 200 [place] [phone] 11/15/2023 9:40 AM CDT Appointment Department of Laboratory Medicine and Pathology, [facility], in [address] [phone] Lubna Mcmillan M.D. [address] [place] [phone] 11/15/2023 10:10 AM CDT Appointment Department of Cardiovascular Diseases in [place], [place] [address] [place] [phone] Lubna Mcmillan M.D. [address] [place] [phone] Discharge Disposition: Home or Self Care 11/15/2023 1:00 PM CDT Appointment Department of Cardiac Rehabilitation in [place], [place] [address] [place] [phone] Lubna Mcmillan M.D. [address] [place] [phone] 11/15/2023 3:00 PM CDT Office Visit Department of Cardiovascular Medicine in [place], [place] [address] [place] [phone] Lubna Mcmillan M.D. [address] [place] [phone] 11/17/2023 2:00 PM CDT Comprehensive Visit Department of Family Medicine, [facility], in [address] [phone] Ro Norton APRN, C.N.P., D.N.P. [address] [place] [phone] 11/21/2023 11:00 AM CDT Office Visit Department of Family Medicine, [facility], in [address] [phone] Ro Norton APRN, C.N.P., D.N.P. [address] [place] [phone] documented as of this encounter Visit Diagnoses Not on filedocumented in this encounter Care Teams Airways Control Specialist Relationship Specialty Start Date End Date Ro Norton APRN, C.N.P., D.N.P. [address] [phone] PCP - General Family Medicine 05/07/19 documented as of this encounter
--- OUTSIDE RECORDS SUMMARY | 2023-11-03 15:08 | XMS_ITS | Encounter Summary ---
Author Organization [facility] Address [address] [place] [address] Care Team Providers Care Trip Follower Name Role Phone Ro Norton APRN, C.N.P., D.N.P. Primary Ca re Provider Encounter Details Date Type Department Care Team (Late st Contact Info) Description 10/17/2023 Orders Only [facility] S[facility]F [facility] [address] [place] [phone] Ro Norton APRN, C.N.P., D.N.P. [address] [place] [phone] Screening Cancer Colon Social History Tobacco Use Types Packs/Day Years Used Date Smoking Tobacco: Every Day Cigarettes 0.5 30 Smokeless Tobacco: Never Comments:4-5 cigarettes a da y Alcohol Use Standard Drinks/Week Comments Not Currently 0 (1 standard drink = 0.6 oz pur e alcohol) ocassionally [place] Utilities Answer Date Recorded In the past [...] How often do you attend chur or sikh services? Never 03/25/2022 Do you belong to [...] [facility] [place] of Occupat ional Health - Occupational Stress [...] your living situation today? I have a [facility] place to live 11/01/2023 Education Answer Date [...] Virtual Review in [place], [place] [address] [place] [phone] 11/15/2023 9:40 AM CDT Appointment Department of Laboratory Medicine and Pathology, [facility], in [place], [place] [address] [place] [phone] Lubna Mcmillan M.D. [address] [place] [phone] 11/15/2023 10:10 AM CDT Appointment Department of Cardiovascular Diseases in [place], [place] [address] [place] [phone] Lubna Mcmillan M.D. [address] [place] [phone] Discharge Disposition: Home or Self Care 11/15/2023 1:00 PM CDT Appointment Department of Cardiac Rehabilitation in [place], [place] [address] [place] [phone] Lubna Mcmillan M.D. [address] [place] [phone] 11/15/2023 3:00 PM CDT Office Visit Department of Cardiovascular Medicine in [place], [place] [address] [place] [phone] Lubna Mcmillan M.D. [address] [place] [phone] 11/17/2023 2:00 PM CDT Comprehensive Visit Department of Family Medicine, [facility], in [address] [phone] Ro Norton APRN, C.N.P., D.N.P. [address] [place] [phone] 11/21/2023 11:00 AM CDT Office Visit Department of Family Medicine, [facility], in [address] [phone] Ro Norton APRN, C.N.P., D.N.P. [address] [place] [phone] documented as of this encounter Visit Diagnoses Diagnosis Screening Cancer Colon documented in this encounter Additional Health Concerns Infection Onset Date Last Indicated Resolved Time COVID19 Pending 10/30/2023 10/30/2023 10/30/2023 1 1:05 PM CDT COVID19 Pending 10/31/2023 10/31/2023 10/31/2023 3 :31 AM CDT documented as of this encounter Care Teams Trip Follower Relationship Specialty Start Date End Date Ro Norton APRN, C.N.P., D.N.P. [address] [phone] PCP - General Family Medicine 05/07/19 documented as of this encounter
== END 2023-11-02 02:55 | disposition home or self-care (01) ==
LOC: AMB 11-03 15:04
PROVIDERS: PCP Nurse Practitioner Family; Visit Provider Family Medicine
DX: R06.09 Other forms of dyspnea (principal)
CPT/HCPCS: A0425; A0427

== ENCOUNTER 2023-11-02 03:22 | Emergency (ER) | payer MEDICAID, SELFPAY ==
[2023-11-02] VITALS (13 sets, daily range): BP systolic 111–153; BP diastolic 76–103; PULSE 91–129; RESP 28; TEMP 37.1; O2SAT 78–88; BMI 19.5
--- OUTSIDE RECORDS SUMMARY | 2023-11-02 03:29 | XMS_ITS ---
Author Organization [facility] Address [address] [place] [address] Care Team Providers Care Telecom Analyst Name Role Phone Unavailable Unavailable Unavailable Surgery Details Not on file Complications Check Surgery Details section. Procedure Estimated Blood Loss Check Surgery Details section. Procedure Findings Check Surgery Details section. Procedure Specimens Taken Check Surgery Details section.
--- OUTSIDE RECORDS SUMMARY | 2023-11-02 03:29 | XMS_ITS | Referral Summary ---
Author Organization [facility] Address [address] [place] [address] Care Team Providers Care Freight Clerk Name Role Phone JeseniaRo jacob Elan MORA C.N.P., D.N.P. Primary Ca re Provider Source Comments Patient records contain information from all sites at [facility]. For routine questions regarding patient records, call [phone] during business hours, M-F 8:00 AM - 5:00 PM Central Time. Record requests for emergency care only can be directed to [phone] at any time.[facility] Encounters Date Type Department Care Team Description 10/31/2023 12:53 AM CDT - 11/01/2023 4:46 PM CDT Hospital Encounter [facility], [facility], [facility], Sixth Floor [address] [place] [phone] Whit Bhatti M.D. Cortes Puentes, Gustavo A, M.D. Acute Respiratory Failure With Hypoxia (HCC) (Primary Dx); Hypertension Pulmonary Primary (HCC) Discharge Disposition: Home or Self Care 10/30/2023 9:57 PM CDT - 10/31/2023 12:05 AM CDT Emergency [facility] [address] [place] [phone] Serjio Gonsalves APRN, Bolivar.N.P., D.N.P., M.S.N. Acute And Chronic Respiratory Failure With Hypoxia (HCC) (Primary Dx); Chronic Obstructive Pulmonary Disease Exacerbation (HCC); Acute Respiratory Failure With Hypercapnia (HCC) Discharge Disposition: [facility] 10/30/2023 Intake [facility] 10/17/2023 Orders Only [facility] SELF TEST [facility] [address] [place] [phone] Ro Norton APRN, C.N.P., D.N.P. Screening Cancer Colon 10/03/2023 Orders Only [facility] SELF TEST [facility] [address] [place] [phone] Ro Norton APRN, C.N.P., D.N.P. 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 Med Question 09/27/2023 3:00 PM CDT Telemedicine Department of Family [facility], [facility], [address] [phone] Berna Snow APRN, C.N.P. Abscess Dental (Primary Dx) Discharge Disposition: Home or Self Care 09/11/2023 Clinical Communication Department of Family [facility], [facility], [address] [phone] Ro Norton APRN, C.N.P., D.N.P. Rx Prior Authorization (ensure); Rx Denial (ENSURE ) 09/11/2023 Clinical Communication Pharmacy Prior Auth RO [id number] Salome Alfaro 09/07/2023 1:30 PM CDT Telemedicine Department of Family Medicine, [facility], [place], [place] [address] [place] [phone] Valentin Andrea M.D. Pain Teeth (Primary Dx) Discharge Disposition: Home or Self Care 08/25/2023 Refill Department of Family Medicine, [facility], in [address] [phone] Ro Norton APRN, C.NLisandro., D.N.P. Med Refill 08/22/2023 Orders Only [facility] [address] [phone] Karine Coles, Pharm.D., R.Ph. 08/21/2023 Refill Department of Cardiovascular Medicine in [place], [place] [address] [place] [address] Lubna Mcmillan M.D. Med Refill 08/14/2023 9:30 AM CDT Telemedicine Department of Family Medicine, [facility], in [place], [place] [address] [place] [phone] Tc Bee D.O. Pain Teeth (Primary Dx) Discharge Disposition: Home or Self Care from Last 3 Months Allergies Active Allergy Reactions Criticality Noted Date Comments Sulfa (Sulfonamide Antibiotics) Angioedema (Reselect Reaction) 03/02/2017 Medications Medication Sig Dispensed Refills Start Date End Date Status multivitamin capsule Take 1 capsule by mouth daily. Active DME Oxygen Administer 1 L into nostril(s) at bedtime. DME Order Active Home Nebulizer Plus Sidestream device See Admin Instructions. 11/18/2022 Active ipratropium-albu teroL (DUONEB) 0.5-2.5 mg/3 mL nebulizer solution Inhale 3 mL by nebulization 4 (four) times a day. 180 mL 11 01/19/2023 Active macitentan (OPSUMIT) 10 mg tablet Take 1 tablet (10 mg total) by mouth daily. 30 tablet 11 04/11/2023 Active furosemide (LASIX) 40 mg tablet TAKE 1 TABLET(40 MG) BY MOUTH DAILY 90 tablet 3 06/08/2023 Active albuterol 90 mcg/actuation inhaler INHALE 2 PUFFS BY MOUTH FOUR TIMES A DAY 54 g 3 07/25/2023 Active fluticasone propion-salmeter oL (Advair Diskus) 250-50 mcg/dose diskus inhaler Inhale 1 puff 2 (two) times a day. Rinse mouth with water after use to reduce aftertaste and incidence of candidiasis. Do not swallow. 60 each 11 07/25/2023 Active sildenafil (Revatio) 20 mg tablet Take 1 tablet (20 mg total) by mouth 3 (three) times a day. 90 tablet 11 08/22/2023 08/22/19 25 Active food supplemt, lactose-reduced (Ensure) liquid Take 1 bottle (237 mL) by mouth daily. Medically necessary 7110 mL 08/28/2023 Active buprenorphine-na loxone (Suboxone) 8-2 mg [address] film Place 1 Film under the tongue daily. Active DME OxygenIndication s:Acute Respiratory Failure With Hypoxia (HCC),Hypertensi on Pulmonary Primary (HCC) DME Order - for details see Order Report 1 each 11/01/2023 Active cefdinir (Omnicef) 300 mg capsuleIndicatio ns:Respiratory tract infection, community acquired Take 1 capsule (300 mg total) by mouth 2 (two) times a day before morning and evening meals for 7 doses Indications: Respiratory tract infection, community acquired. 7 capsule 11/01/2023 11/05/19 24 Active predniSONE (Deltasone) 20 mg tablet Take 2 tablets (40 mg total) by mouth daily for 2 doses. 4 tablet 11/02/2023 11/04/19 24 Active ascorbic acid, vitamin C, (VITAMIN C) 100 mg tablet Take 100 mg by mouth daily. 10/31/19 24 Discontinued Suboxone 4-[address] mg [address] film [address] 1 Film under the tongue daily. 01/18/2023 10/31/19 24 Discontinued sildenafil (REVATIO) 20 mg tablet Take 1 tablet (20 mg total) by mouth 3 (three) times a day. 90 tablet 11 04/21/2023 10/31/19 24 Discontinued Migelacidshmuel-Isauro -B.bif-S.therm (Bacid) 1 billion cell- 250 mg per tablet Take 1 tablet by mouth 2 (two) times a day with meals. 180 tablet 08/14/2023 10/31/19 24 Discontinued sildenafil (Revatio) 20 mg tablet Take 1 tablet (20 mg total) by mouth 3 (three) times a day. 90 tablet 11 08/22/2023 10/31/19 24 Discontinued sildenafil (Revatio) 20 mg tablet Take 1 tablet (20 mg total) by mouth 3 (three) times a day. 90 tablet 08/22/2023 10/31/19 24 Discontinued doxycycline hyclate (Vibramycin) 100 mg capsule Take 1 capsule (100 mg total) by mouth 2 (two) times a day. 20 capsule 09/28/2023 10/31/19 24 Discontinued Active Problems Problem Noted Date Diagnosed Date Acute Respiratory Failure With Hypoxia 4 Malnutrition Moderate Protein-Calorie 09/12/2023 Congestive Heart Failure [...] (07/01/2020): Added automatically from request for surgery [id number] Anemia Posthemorrhagic Acute (Blood Loss Anemia) 10/25/2019 [...] = 0.6 oz pur e alcohol) ocassionally [facility] Utilities Answer Date Recorded In the past 12 months has e [employer], gas, oil, or water company threatened to shut off services in your home? No 11/01/2023 Humiliation, Afraid, Rape, and Kick questionnair e Answer Date Recorded Within the last year, have y ou been afraid of your partner or ex-partner? No 11/01/2023 Within the last year, have y ou been humiliated or emotionally abused in other ways by your partner or ex-partner? No Within the last year, have y ou been kicked, hit, slapped, or otherwise physically hurt by your partner or ex-partner? No 11/01/2023 Within the last year, have y ou been raped or forced to have any kind of sexual activity by your partner or ex-partner? No 11/01/2023 Social Connection and Isolat ion Panel [NHANES] Answer Date Recorded In a typical week, how many times do you talk on the phone with family, friends, or neighbors? More than three times a week 03/25/2022 How often do you get togethe r with friends or relatives? More than three times a week 03/25/2022 How often do you attend [facility] or caodaism services? Never 03/25/2022 Do you belong to any clubs o r organizations such as mandaen groups, unions, fraternal [...] 2 07/31/2023 [facility] of Occupat ional [facility] - Occupational Stress Questionnaire Answer Date [...] the money to buy more. Never true 11/01/19 24 Within the past 12 months, t he food you bought just didn't last and you didn't have money to get more. Never true 11/01/2023 PRAPARE - Transportation Answer Date Re corded In the past 12 months, has l ack of transportation kept you from medical appointments or from getting medications? Yes 10/21 In the past 12 months, has l ack of transportation kept you from meetings, work, or from getting things needed for daily living? Yes 11/01/2023 Nutrition Answer Date Recorded On average, how [...] have a [facility] place to live 11/01/2023 Education Answer Date Recorded What is the [...] Sign Reading Time Taken Comments Blood Pressure 111/71 11/01/2023 4:00 PM CDT Pulse 76 11/01/2023 4:30 PM CDT Temperature 37 ??C (98.6 ??F) 11/01/2023 4:00 PM CDT Respiratory Rate 25 11/01/2023 4:30 PM CDT Oxygen Saturation 81% 11/01/2023 4:30 PM CDT Inhaled Oxygen Concentration - - Weight 59.3 kg (130 lb 11.7 oz) 10/31/2023 1:00 AM CDT Height 170 cm (5' 6.93) 10/31/2023 1:00 AM CDT Body Mass Index 20.52 10/31/2023 1:00 AM CDT Plan of Treatment Upcoming Encounters Date Type Department Care Team (Latest Contact Info) Description 11/08/2023 11:30 AM CDT Clinical Communication Virtual Review in [place], [place] [address] [place] [phone] 11/15/2023 9:40 AM CDT Appointment Department of Laboratory Medicine and Pathology, [facility] in [place], [place] [address] [place] [phone] Lubna Mcmillan M.D. [address] [place] [phone] 11/15/2023 10:10 AM CDT Appointment Department of Cardiovascular Diseases in [place], [place] [address] [place] [phone] Lubna Mcmillan M.D. [address] [place] [phone] Discharge Disposition: Home or Self Care 11/15/2023 1:00 PM CDT Appointment Department of Cardiac Rehabilitation in [place], [place] [address] [place] [phone] Lubna Mcmillan M.D. [address] [place] [address] 11/15/2023 3:00 PM CDT Office Visit Department of Cardiovascular Medicine in [place], [place] [address] [place] [address] Lubna Mcmillan M.D. [address] [place] [address] 11/17/2023 2:00 PM CDT Comprehensive Visit Department of Family Medicine, [facility], in [address] [phone] Ro Norton APRN, C.N.P., D.N.P. [address] [place] [phone] 11/21/2023 11:00 AM CDT Office Visit Department of Family Medicine, [facility], in [address] [phone] Ro Norton APRN, C.N.P., D.N.P. [address] [place] [phone] Medical Devices Implanted Type Area Garage Mechanic Device Identifier Shelf Expiration Date Model / Serial / Lot Osferion Bone Void Filler, 10 X 3 X 30 X 12 Mm Implanted:Qty : 1 on 10/24/2019 by Raudel Lewis M.D. at [facility] Hardware e.g. pins/screws/ rods Left: Tibia Arthrex 09/19/2023 [id number] / N/A / [id number] Scrw Tmx St Fthrd Nlck 3.5x38 - [id number] Implanted:Qty : 1 on 10/24/2019 by Raudel Lewis M.D. at [facility] Hardware e.g. pins/screws/ rods Left: Tibia Depuy Synthes [id number] / / Scrw Tmx St Fthrd Nlck 3.5x55 - [id number] Implanted:Qty : 1 on 10/24/2019 by Raudel Lewis M.D. at [facility] Hardware e.g. pins/screws/ rods Left: Tibia Depuy Synthes [id number] / / Scrw Tmx St Fthrd Nlck 3.5x65 - [id number] Implanted:Qty : 2 on 10/24/2019 by Raudel Lewis M.D. at [facility] Hardware e.g. pins/screws/ rods Left: Tibia Depuy Synthes [id number] / / Plt Ankl Mei 3h Lck 74.7x35.6 - [id number] Implanted:Qty : 1 on 10/24/2019 by Raudel Lewis M.D. at [facility] Hardware e.g. pins/screws/ rods Left: Tibia Rabia Biomet [id number] / / Scrw Dcp St Fthrd 3.5x75 - [id number] Implanted:Qty : 1 on 10/24/2019 by Raudel Lewis M.D. at [facility] Hardware e.g. pins/screws/ rods Left: Tibia Depuy Synthes [id number] / / Procedures Procedure Name Priority Date/Time Associated Diagnosis Comments POTASSIUM, S/P STAT 11/01/2023 7:17 AM CDT ASPARTATE AMINOTRANSFERASE (AST), S/P STAT 11/01/2023 7:17 AM CDT BILIRUBIN DIRECT, S/P STAT 11/01/2023 7:17 AM CDT CBC WITH DIFFERENTIAL, B Routine 11/01/2023 3:27 AM CDT HCV RNA DETECT/QUANT Routine 11/01/2023 3:27 AM CDT HEPATIC FUNCTION PANEL, S Routine 11/01/2023 3:26 AM CDT BASIC METABOLIC PANEL, S/P Routine 11/01/2023 3:26 AM CDT MRSA/STAPHYLOCOCCUS AUREUS, NASAL, BY PCR Routine 10/31/2023 2:27 PM CDT HEPATIC FUNCTION PANEL, S Timed 10/31/2023 12:[address] CHEST ANGIOGRAM AND PULMONARY ARTERIES WITH IV CONTRAST RAD - Emergent (Fastest; for the most critically ill patients) 10/31/2023 8:26 AM CDT ADULT OXYGEN THERAPY Routine 10/31/2023 8:01 AM CDT ADULT OXYGEN THERAPY Routine 10/31/2023 7:49 AM CDT BASIC METABOLIC PANEL, S/P Routine 10/31/2023 3:14 AM CDT CBC WITH DIFFERENTIAL, B Routine 10/31/2023 3:14 AM CDT PATIENT STATUS, ABG STAT 10/31/2023 3 :08 AM CDT ABG W/O COOX STAT 10/31/2023 3:08 AM CDT ERYTHROPOIETIN (EPO), S Routine 10/31/2023 2:58 AM CDT HEPATIC FUNCTION PANEL, S Routine 10/31/2023 2:58 AM CDT RESPIRATORY PANEL, PCR, PRODUCT SAFETY AND STANDARDS ENGINEER Routine 10/31/2023 2:18 AM CDT CRITICAL CARE Routine 10/30/2023 11:19 PM CDT DX CHEST PORTABLE 1 VIEW RAD - Semiurgent (Fast; most ED patients; some inpatients) 10/30/2023 10:30 PM CDT TROPONIN T, BASELINE, 5TH GEN, P STAT 10/30/2023 10:28 PM CDT LACTATE FOR SEPSIS WITH REFLEX STAT 10/30/2023 10:28 PM CDT VBG WITH LACTATE, POCT, B STAT 10/30/2023 10:26 PM CDT PROTHROMBIN TIME (PT), P STAT 10/30/2023 10:26 PM CDT NT-PRO B-TYPE NATRIURETIC PEPTIDE (BNP), S STAT 10/30/2023 10:26 PM CDT BASIC METABOLIC PANEL, S/P STAT 10/30/2023 10:26 PM CDT CBC WITH DIFFERENTIAL, B STAT 10/30/2023 10:26 PM CDT INFLUENZA A, B, RSV, PCR, POCT STAT 10/30/2023 9:50 PM CDT SARS CORONAVIRUS 2, PCR RAPID, V STAT 10/30/2023 9:50 PM CDT ECG STAT 10/30/2023 9:43 PM CDT LIPID PANEL, S Routine 07/23/2021 8:56 AM CDT Screening Lipid HPV WITH GENOTYPING, PCR, THINPREP Routine 07/23/2021 8:24 AM CDT from Last 3 Months or Most Recently Relevant to Health Maintenance Results * (ABNORMAL) AST (Aspartate Aminotransferase) (11/01/2023 7:17 AM CDT) Aspartate Aminotransferase (AST), S 64(H) 8 - 43 U/L 11/01/2023 8:43 AM CDT DTL Comment: Specimen collected by special instruction procedure due to recurrent hemolysis. Specimen was received with hemolysis slightly above the acceptable threshold. The AST result may be falsely elevated by 5-10 U/L due to this degree of hemolysis. Interpret in conjunction with other laboratory and clinical findings. Blood 11/01/2023 7:17 AM CDT 11/01/2023 7:43 AM CDT Corin Chauhan M.D. LAB BLOOD ADD-ON [facility] [address] [place] [address] * (ABNORMAL) Potassium (11/01/2023 7:17 AM CDT) Potassium, S 5.3(H) 3.6 - 5.2 mmol/L 11/01/2023 8:16 AM CDT DTL Comment: Specimen collected by special instruction procedure due to recurrent hemolysis. Blood 11/01/2023 7:17 AM CDT 11/01/2023 7:43 AM CDT Corin Chauhan M.D. LAB BLOOD ADD-ON Performing Organization Address City/[facility]/ZIP Co de Phone Number [facility] [address] [place] [address] * Bilirubin, Direct (11/01/2023 7:17 AM CDT) Bilirubin, Direct, S 0.2 0.0 - 0.3 mg/dL 11/01/2023 8:16 AM CDT DTL Comment: Specimen collected by special instruction procedure due to recurrent hemolysis. Blood 11/01/2023 7:17 AM CDT 11/01/2023 7:43 AM CDT Corin Chauhan M.D. LAB BLOOD ADD-ON [facility] [address] [place] [address], [facility] [address] [place] [address] * (ABNORMAL) HCV RNA Detect / Quant, Serum (11/01/2023 3:27 AM CDT) Pathologist [facility] HCV RNA Detect/Quant, S 601803(A ) Undetected IU/mL 11/01/2023 1:32 PM CDT [facility] Comment: Result in log IU/mL is 5.72. ----ADDITIONAL INFORMATION---- The quantification range of this assay is 15 to 100,000,000 IU/mL (1.18 log to 8.00 log IU/mL). Testing was performed using the sandra HCV test ([employer] Blood (Blood, Venous) 11/01/2023 3:27 AM CDT 11/01/2023 8:12 AM CDT Sergei Palomares M.D. LAB MICROBIOLOGY - BLOOD ORDERABLES [facility] [place] [address] [place] [address] [facility] [address] [place] [address] [place] [address] * (ABNORMAL) CBC with Differential, Blood (11/01/2023 3:27 AM CDT) Only the most recent of3 resultswithin the time period is included. [facility] [place] Hemoglobin 17.1(H) 11.6 - 15.0 g/dL 11/01/2023 3:46 AM CDT DTL Hematocrit 52.0(H) 35.5 - 44.9 % 11/01/2023 3:46 AM CDT DTL Erythrocytes 5.31(H) 3.92 - 5.13 x10(12)/L 11/01/2023 3:46 AM CDT DTL MCV 97.9 78.2 - 97.9 fL 11/01/2023 3:46 AM CDT DTL RBC Distrib Width 15.6 12.2 - 16.1 % 11/01/2023 3:46 AM CDT DTL Platelet Count 89(L) 157 - 371 x10(9)/L 11/01/2023 4:20 AM CDT DTL Leukocytes 10.8(H) 3.4 - 9.6 x10(9)/L 11/01/2023 4:20 AM CDT DTL Neutrophils 8.05(H) 1.56 - 6.45 x10(9)/L 11/01/2023 3:46 AM CDT [facility] Lymphocytes 1.74 0.95 - 3.07 x10(9)/L 11/01/2023 3:46 AM CDT DTL Monocytes 0.93(H) 0.26 - 0.81 x10(9)/L 11/01/2023 3:46 AM CDT DTL Eosinophils <0.03 0.03 - 0.48 x10(9)/L 11/01/2023 3:46 AM CDT DTL Basophils 0.03 0.01 - 0.08 x10(9)/L 11/01/2023 3:46 AM CDT DTL Blood (Blood, Venous) 11/01/2023 3:27 AM CDT 11/01/2023 3:40 AM CDT Corin Chauhan M.D. LAB BLOOD ADD-ON [facility] [address] [place] [address], [facility] DTL [facility] [address] [place] [address] [facility] [address] [place] [address] * (ABNORMAL) Hepatic Function Panel (11/01/2023 3:26 AM CDT) Only the most recent of3 resultswithin the time period is included. Bilirubin, Total, S 0.4 0.0 - 1.2 mg/dL 11/01/2023 4:25 AM CDT DTL Bilirubin, Direct, S CANCELED mg/dL 10/21 4:44 AM CDT DTL Comment: Specimen was hemolyzed. Redraw has been ordered and is in progress. Result canceled by the ancillary. Aspartate Aminotransferase (AST), S CANCELED U/L 11/01/2023 4:44 AM CDT DTL Comment: Specimen was hemolyzed. Redraw has been ordered and is in progress. Result canceled by the ancillary. Alanine Aminotransferase (ALT), S 83(H) 7 - 45 U/L 11/01/2023 4:25 AM CDT DTL Alkaline Phosphatase, S 82 35 - 104 U/L 11/01/2023 4:25 AM CDT DTL Albumin, S 3.3(L) 3.5 - 5.0 g/dL 11/01/2023 4:25 AM CDT DTL Protein, Total, S 6.3 6.3 - 7.9 g/dL 11/01/2023 4:25 AM CDT DTL Blood (Blood, Venous) 11/01/2023 3:26 AM CDT 11/01/2023 3:56 AM CDT Sergei Palomares M.D. LAB BLOOD ADD-ON [facility] [address] [place] [address], [facility] [address] [place] [address] * (ABNORMAL) Basic Metabolic Panel (11/01/2023 3:26 AM CDT) Only the most recent of3 resultswithin the time period is included. Potassium, S CANCELED mmol/L 11/01/2023 4:44 AM CDT DTL Comment: Specimen was hemolyzed. Redraw has been ordered and is in progress. Result canceled by the ancillary. Sodium, S 137 135 - 145 mmol/L 11/01/2023 4:25 AM CDT DTL Chloride, S 99 98 - 107 mmol/L 11/01/2023 4:25 AM CDT DTL Bicarbonate, S 31(H) 22 - 29 mmol/L 11/01/2023 4:25 AM CDT DTL Anion Gap 7 7 - 15 11/01/2023 4:25 AM CDT DTL BUN (Blood Urea Nitrogen), S 30(H) 6 - 21 mg/dL 11/01/2023 4:25 AM CDT DTL Creatinine 0.77 0.59 - 1.04 mg/dL 11/01/2023 4:25 AM CDT DTL Estimated GFR (eGFR) >90 >=60 mL/min/BSA 11/01/2023 4:25 AM CDT DTL Comment: Estimated GFR calculated using the 2020 CKD_EPI creatinine equation. Calcium, Total, S 8.8 8.6 - 10.0 mg/dL 11/01/2023 4:25 AM CDT DTL Glucose, S 113 70 - 140 mg/dL 11/01/2023 4:25 AM CDT DTL Blood (Blood, Venous) 11/01/2023 3:26 AM CDT 11/01/2023 3:56 AM CDT Corin Chauhan M.D. LAB BLOOD ADD-ON [facility] [address] [place] [address], [facility] [address] [address] * (ABNORMAL) Staph aureus / MRSA, Nasal, PCR (10/31/2023 2:27 PM CDT) Staphylococcus aureus, PCR Positive(A) Negative 10/31/2023 4:08 PM CDT DTL MRSA, PCR Negative Negative 10/31/2023 4:08 PM CDT DTL Comment: Methicillin (oxacillin)-susceptible Staphylococcus aureus complex detected. Swab (Nares) 10/31/2023 2:27 PM CDT 10/31/2023 2:51 PM CDT Sergei Palomares M.D. LAB MICROBIOLOGY - GENERAL ORDERABLES [facility] [address] [place] [address], [address] [address] * CT Chest Angiogram and Pulmonary Arteries with IV Contrast (10/31/2023 8:26 AM CDT) Anatomical Region Laterality Modality Chest, Cardiovascular RST LO S, Thoracic ARZ LOS, Thoracic FLA LOS N/A Computed Tomography, Compute d Tomography 10/31/2023 8:18 AM CDT Impressions 10/31/2023 8:50 AM CDT 1. ??No evidence of pulmonary embolism. 2. ??Right upper lobe probably infectious/inflammatory process. Consider follow- up to assess for resolution. Narrative 10/31/2023 8:50 AM CDT EXAM: CT CHEST ANGIOGRAM AND PULMONARY ARTERIES WITH IV CONTRAST Including 3D image postprocessing with or without AI assistance. COMPARISON: October 22, 2019 FINDINGS: No evidence of pulmonary embolism. Marked dilation of the main pulmonary artery which measures 5.5 cm, as well as right and left pulmonary arteries. Reflux into hepatic veins. Sternotomy with PDA ligation. Emphysematous findings throughout both lungs. Unchanged mucous plugging and mosaic attenuation throughout both lungs, probably chronic small airways disease. Left upper lobe bronchiectasis. Bibasilar linear atelectasis. New/increased posterior right upper lobe peribronchial consolidation. Prominent mediastinal nodes, which could be reactive. Incipient spine degenerative findings. Sternotomy. Old rib fractures. Procedure Note Angelita Walton M.D. - 10/31/2023 EXAM: CT CHEST ANGIOGRAM AND PULMONARY ARTERIES WITH IV CONTRAST Including 3D image postprocessing with or without AI assistance. COMPARISON: October 22, 2019 FINDINGS: No evidence of pulmonary embolism. Marked dilation of the main pulmonary artery which measures 5.5 cm, aswell as right and left pulmonary arteries. Reflux into hepatic veins.Sternotomy with PDA ligation. Emphysematous findings throughout both lungs. Unchanged mucous plugging and mosaic attenuation throughout both lungs, probably chronic small airways disease. Left upper lobe bronchiectasis. Bibasilar linearatelectasis. New/increased posterior right upper lobe peribronchial consolidation. Prominent mediastinal nodes, which could be reactive. Incipient spine degenerative findings. Sternotomy. Old rib fractures. IMPRESSION: 1. No evidence of pulmonary embolism. 2. Right upper lobe probably infectious/inflammatory process. Considerfollow-up to assess for resolution. Sergei WANG CT PROCEDURES * Patient Status (10/31/2023 3:08 AM CDT) O2 Flow 10.0L L/min 10/31/2023 3:14 AM CDT [facility] Comment:REVISED RESULTS Device NC 10/31/2023 3:14 AM CDT [facility] Comment:REVISED RESULTS Spont. breaths/min 15 10/31/2023 3:14 AM CDT [facility] Comment:REVISED RESULTS Blood 10/31/2023 3:08 AM CDT 10/31/2023 3:08 AM CDT Corin Chauhan M.D. LAB BLOOD NON ADD-ON Performing Organization Address City/[facility]/ZIP Co de Phone Number [facility] [address] [place] [address] * (ABNORMAL) Blood Gas without Coox, Arterial (10/31/2023 3:08 AM CDT) Pathologist [facility] pO2 52(L) 83 - 108 mm Hg 10/31/2023 3:15 AM CDT [facility] pCO2 57(H) 32 - 45 mm Hg 10/31/2023 3:15 AM CDT [facility] pH 7.36 7.35 - 7.45 pH 10/31/2023 3:15 AM CDT [facility] Base Excess 7(H) -2 - 3 mmol/L 10/31/2023 3:15 AM CDT STMA HCO3 32(H) 22 - 26 mmol/L 10/31/2023 3:15 AM CDT [facility] Arterial Sample Site R-Radial 10/31/2023 3:14 AM CDT [facility] Comment: REVISED RESULTS Tc's test not done. Blood (Blood, Arterial) 10/31/2023 3:08 AM CDT 10/31/2023 3:08 AM CDT Corin Chauhan M.D. LAB BLOOD NON ADD-ON Performing Organization Address City/[facility]/ZIP Co de Phone Number [facility] [address] [place] [address], [facility] [address] [place] [address] * (ABNORMAL) Erythropoietin (EPO) (10/31/2023 2:58 AM CDT) Erythropoietin (EPO), S 18.8(H) 2.6 - 18.5 mIU/mL 10/31/2023 10:11 AM CDT [facility] Blood 10/31/2023 2:58 AM CDT 10/31/2023 8:56 AM CDT Corin Chauhan M.D. LAB BLOOD ADD-ON [facility] [address] [place] [address] [facility] [address] [place] [address] * (ABNORMAL) Respiratory Panel, PCR, Nasopharyngeal (10/31/2023 2:18 AM CDT) [facility] Specimen Source NASOPHARYNGEAL SWAB 10/31/2023 3:31 AM CDT DTL Adenovirus Undetected Undetected 10/31/2023 3:31 AM CDT DTL Coronavirus 229E Undetected Undetected 10/31/19 3:31 AM CDT DTL Coronavirus HKU1 Undetected Undetected 10/31/19 3:31 AM CDT DTL Coronavirus NL63 Undetected Undetected 10/31/19 3:31 AM CDT DTL Coronavirus OC43 Undetected Undetected 10/31/19 3:31 AM CDT DTL SARS Coronavirus-2 Undetected Undetected 10/31/2023 3:31 AM CDT DTL Comment: SARS-CoV-2 RNA absent. This result does not rule out COVID-19 in the patient, as the sensitivity of the test depends on the timing of the specimen collection and the quality of the specimen. Result should be correlated with patient's history and clinical presentation. Human Metapneumovirus Undetected Undetected 10/31/2023 3:31 AM CDT DTL Human Rhinovirus/ Enterovirus Detected(A) Undetected 10/31/2023 3:31 AM CDT DTL Influenza A Undetected Undetected 10/31/2023 3:31 AM CDT DTL Influenza B Undetected Undetected 10/31/2023 3:31 AM CDT DTL Parainfluenza Virus 1 Undetected Undetected 10/31/2023 3:31 AM CDT DTL Parainfluenza Virus 2 Undetected Undetected 10/31/2023 3:31 AM CDT DTL Parainfluenza Virus 3 Undetected Undetected 10/31/2023 3:31 AM CDT DTL Parainfluenza Virus 4 Undetected Undetected 10/31/2023 3:31 AM CDT DTL Respiratory Syncytial Virus Undetected Undetected 10/31/2023 3:31 AM CDT DTL Bordetella parapertussis Undetected Undetected 10/31/2023 3:31 AM CDT DTL Bordetella pertussis Undetected Undetected 10/31/2023 3:31 AM CDT DTL Chlamydia pneumoniae Undetected Undetected 10/31/2023 3:31 AM CDT DTL Mycoplasma pneumoniae Undetected Undetected 10/31/2023 3:31 AM CDT DTL Interpretation This assay is not predicted to detect SARS-coronavirus (CoV), or MERS-CoV. If SARS-CoV or MERS-CoV is suspected, coordinate testing through a local public health laboratory. 10/31/2023 3:31 AM CDT DTL Comment: ----ADDITIONAL INFORMATION---- This assay is performed using the FDA-Cleared FilmArray Respiratory Panel 2.1 ([employer]). Swab (Nasopharynx) 10/31/2023 2:18 AM CDT 10/31/2023 2:35 AM CDT Corin Chauhan M.D. LAB MICROBIOLOGY - G ENERAL ORDERABLES [facility] [address] [place] [address], [facility] [address] [facility] [address] [place] [address] * Critical Care (10/30/2023 11:19 PM CDT) Narrative Serjio Gonsalves APRN, C.N.P., D.N.P., M.S.N. - 10/30/2023 11:19 PM CDT Serjio Gonsalves APRN, C.N.PRaffy, Katelynn.N.P., M.S.N. ? 10/30/2023 11:20 PM Critical Care Performed by: Serjio Gonsalves APRN, NinoskaNDean, MileN.PRaffy, M.S.N. Authorized by: Serjio Gonsalves APRN, C.NDean, MileN.P., M.S.N. ?? Critical care provider statement: Critical care total time (minutes): 45 Critical care time was exclusive of: separately [...] of treatment plan with patient or surrogate, discussing treatment issues with family or surrogate, discussions with consultants, documenting in the patient chart, evaluation of [...] another provider in my specialty: no ?? Serjio Gonsalves APRN, C.N.P., Kristin, M.S.N . PROCEDURE/MINOR SURGICAL ORDERABLES * DX Chest Portable 1 View (10/30/2023 10:30 PM CDT) Anatomical Region Laterality Modality Chest, Thoracic RST LOS, Tho racic ARZ LOS, Thoracic FLA LOS N/A Digital Radiography Impressions 10/30/2023 10:34 PM CDT Large masslike consolidation right perihilar region is grossly similar to 06/26/2022. No pneumothorax or significant pleural effusion. No new consolidative opacity identified. Narrative 10/30/2023 10:34 PM CDT EXAM: DX CHEST PORTABLE 1 VIEW Procedure Note Sergei Montiel M.D. - 10/30/2023 EXAM: DX CHEST PORTABLE 1 VIEW IMPRESSION: Large masslike consolidation right perihilar region is grossly similar to06/26/2022. No pneumothorax or significant pleural effusion. No newconsolidative opacity identified. Serjio Gonsalves APRN, C.N.P., MileNRaffyP., M.S.N . IMG DIAGNOSTIC IMAGING PROCEDURES * Lactate for Sepsis with Reflex (10/30/2023 10:28 PM CDT) Lactate, P 2.2 0.5 - 2.2 mmol/L 10/30/2023 10:55 PM CDT CNFL Blood (Blood, Venous) 10/30/2023 10:28 PM CDT 10/30/2023 10:40 PM CDT Serjio Gonsalves APRN, C.N.P., MileN.P., M.S.N . LAB [place] [address], [place] [address] * Troponin T, Baseline with 2 Hour/6 Hour Reflex Biomarker Panel (10/30/2023 10:28 PM CDT) Pathologist [facility] Troponin T, Baseline, 5th gen 10 <=10 ng/L 10/30/2023 11:07 PM CDT [facility] Blood (Blood, Venous) 10/30/2023 10:28 PM CDT 10/30/2023 10:52 PM CDT Serjio Gonsalves APRN, C.N.P., Katelynn.N.P., M.S.N . LAB [place] [address], [facility] [place] [address] * (ABNORMAL) Venous Blood Gas with Lactate, POCT, B (10/30/2023 10:26 PM CDT) pH, Venous, POCT, B 7.28(L) 7.32 - 7.43 10/30/2023 10:37 PM CDT CNFL pCO2, Venous, POCT, B 74(H) 41 - 51 mm Hg 10/30/2023 10:37 PM CDT CNFL pO2, Venous, POCT, B 19 Not applicable mm Hg 10/30/2023 10:37 PM CDT CNFL HCO3, Venous, POCT, B 34 Not applicable mmol/L 10/30/2023 10:37 PM CDT CNFL Base Excess, Venous, POCT, B 8 Not applicable mmol/L 10/30/2023 10:37 PM CDT CNFL O2 Saturation, Venous, POCT, B 22 Not applicable % 10/30/2023 10:37 PM CDT CNFL Sample Type, Blood Gas, POCT ABEL 10/30/2023 10:37 PM CDT CNFL FIO2, POCT 19.00 [id number] 10/30/2023 10:37 PM CDT CNFL Comment: ----ADDITIONAL INFORMATION---- Performed at the Point of Care Lactate, POCT 2.15 0.50 - 2.20 mmol/L 10/30/2023 10:37 PM CDT CN[facility] Blood (Blood, Venous) 10/30/2023 10:26 PM CDT 10/30/2023 10:33 PM CDT Bolivar Bradford APRN.N.P., D.N.P., M.S.N . LAB POCT ORDERABLES - DEVICE [facility] [address] [place] [address], [facility] CNFL [facility] in [address] [address] * (ABNORMAL) NT-Pro B-Type Natriuretic Peptide (BNP) (10/30/2023 10:26 PM CDT) NT-Pro BNP 1566(H) <=141 pg/mL 10/30/2023 11:17 PM CDT [place] Comment: NT-proBNP values less than 300 pg/mL have a 99% negative predictive value for excluding acute congestive heart failure. A cutoff of 1200 pg/mL for patients with an eGFR<60 yields a diagnostic sensitivity and specificity of 89% and 72% for acute congestive heart failure. A diagnostic NT-proBNP cutoff of 900 pg/mL has been suggested in adults 50-75 years of age in the absence of renal failure. Blood (Blood, Venous) 10/30/2023 10:26 PM CDT 10/30/2023 10:57 PM CDT Serjio Gonsalves APRN, C.N.P., MileNRaffyP., M.S.N . LAB BLOOD ADD-ON Performing Organization Address [facility] [place] [address], [place] [address] * (ABNORMAL) Prothrombin Time (PT) (10/30/2023 10:26 PM CDT) Prothrombin Time, P 13.1(H) 9.4 - 12.5 sec 10/30/2023 10:53 PM CDT [facility] INR 1.1 0.9 - 1.1 10/30/2023 10:53 PM CDT [facility] Comment: ----ADDITIONAL INFORMATION---- Standard intensity warfarin therapeutic range: 2.0 to 3.0 ?? High intensity warfarin therapeutic range: 2.5 to 3.5 Blood (Blood, Venous) 10/30/2023 10:26 PM CDT 10/30/2023 10:50 PM CDT Serjio Gonsalves APRN, C.N.P., MileN.P., M.S.N . LAB BLOOD ADD-ON Performing Organization Address [facility] [place] [address], [place] [address] [place] [address] * SARS Coronavirus 2, PCR Rapid Symptomatic (10/30/2023 9:50 PM CDT) SARS CoV-2, PCR, Rapid, V Undetected Undetected 10/30/2023 10:46 PM CDT CNFL SARS Coronavirus 2, Source, Rapid Swab, Nasopharynx 10/30/2023 10:43 PM CDT CNFL Swab (Nasopharynx) 10/30/2023 9:50 PM CDT 10/30/2023 10:43 PM CDT Bolivar Bradford APRN.N.Kirsty, Katelynn.N.P., M.S.N . LAB MICROBIOLOGY - GENERAL ORDERABLES Performing Organization Address [facility] Co de Phone Number [address] [address], [address] [address] * Influenza A/B and RSV, PCR, Point of Care (10/30/2023 9:50 PM CDT) Influenza A, POCT Negative Negative 10/30/2023 11:55 PM CDT CNFL Influenza B, POCT Negative Negative 10/30/2023 11:55 PM CDT CNFL Resp Syncytial Virus, POCT Negative Negative 10/30/2023 11:55 PM CDT [facility] Swab (Nasopharynx) 10/30/2023 9:50 PM CDT 10/30/2023 10:43 PM CDT Ninoska Bradford APRNNRaffyP., Katelynn.N.P., M.S.N . LAB POCT ORDERABLES - DEVICE Performing Organization Address [facility] Co de Phone Number [address] [address], [address] [address] * ECG 12 Lead (10/30/2023 9:43 PM CDT) Ventricular Rate ECG/Min 74 BPM MUSE GA Interval 146 ms MUSE QRSD Interval 120 ms MUSE QT Interval 434 ms MUSE QTC Interval 481 ms MUSE P [place] 70 degrees MUSE R [place] 108 degrees MUSE T Wave [place] 63 degrees MUSE 10/30/2023 9:43 PM CDT 10/30/2023 9:55 PM CDT Impressions MUSE - 10/30/2023 9:55 PM CDT Normal sinus rhythm Biatrial enlargement Right bundle branch block with secondary ST-T abnormalities Right ventricular hypertrophy When compared with ECG of 26-Jun-2022 17:35, Vent. rate has decreased by ??37 bpm QRS axis has changed Reviewed by PRAKASH Vargas Narrative Procedure Note Herman Larios M.D., Ph.D. - 10/30/2023 IMPRESSION: Normal sinus rhythm Biatrial enlargement Right bundle branch block with secondary ST-T abnormalities Right ventricular hypertrophy When compared with ECG of 26-Jun-2022 17:35, Vent. rate has decreased by 37 bpm QRS axis has changed Reviewed by PRAKASH Vargas Giovananatalie Major MORA, C.N.P., D.N.P., M.S.N . ECG ORDERABLES MUSE NA * Lipid Panel (07/23/2021 8:56 AM CDT) [...] 8:56 AM CDT 07/23/2021 9:00 AM CDT Ro Norton APRN, Bolivar.N.P., D.N.P. LAB BLOOD ADD-ON Performing Organization Address City/[facility] Co de Phone Number [facility] [address] [place] [address], [facility] CNFL [facility] [place] [address] * HPV with Genotyping, PCR, ThinPrep (07/23/2021 8:24 AM CDT) [facility] HPV with Genotyping, ThinPrep, PCR Negative Negative [...] C.N.P., D.N.P. LAB MICROBIOLOGY - GENERAL ORDERABLES [facility] [address] [place] [address], [facility] ECLR [facility] in [place] [address] [place] [address] from Last 3 Months or Most Recently Relevant to Health Maintenance Advance Directives For more information, please contact: [phone] * Full Code (Latest Code Status on File) Date Activated Date Inactivated Comments 10/31/2023 1:38 AM 11/01/2023 6:51 PM Question Answer Comments Full Code: Discussed * Full Code Date Activated Date Inactivated Comments 10/30/2023 10:49 PM 10/31/2023 12:53 AM Question Answer Comments Full Code: Discussed * Full Code Date Activated Date Inactivated Comments 06/26/2022 10:23 PM 06/27/2022 3:27 PM Question Answer Comments Full Code: Not Discussed Due to: Patient not available * Full Code Date Activated Date Inactivated Comments 10/23/2019 4:09 AM 10/27/2019 3:11 PM Question Answer Comments Full Code: Not Discussed Due to: Patient not available Care Teams Freight Clerk Relationship Specialty Start Date End Date Ro Norton APRN, C.N.P., D.N.P. [address] [phone] PCP - General Family Medicine 05/07/19
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
--- OUTSIDE RECORDS SUMMARY | 2023-11-02 03:30 | XMS_ITS | Encounter Summary ---
Author Organization [facility] Address [address] [place] [address] Care Team Providers Care Detail Sergeant Name Role Phone Ro Norton APRN, C.N.P., D.N.P. Primary Ca re Provider Reason for Visit * Reason Onset Date Comments Med Question 09/27/2023 Encounter Details Date Type Department Care Team (Late st Contact Info) Description 09/27/2023 Nurse Triage Department of Family Medicine, [facility], in [address] [phone] Evelia Hernandez, R.N. [address] [place] [phone] Med Question Social History Tobacco Use Types Packs/Day Years Used Date Smoking Tobacco: Every Day Cigarettes 0.5 30 Smokeless Tobacco: Never Comments:4-5 cigarettes a da y Alcohol Use Standard Drinks/Week Comments Not Currently 0 (1 standard drink = 0.6 oz pur e alcohol) ocassionally [facility] Utilities Answer Date Recorded In the [...] How often do you attend chur or orthodoxy services? Never 03/25/2022 Do you belong to any clubs o r organizations such as jainism groups, unions, fraternal [...] Answer Date Recorded PHQ-2 Score 2 07/31/2023 [facility] Occupat ional Health - Occupational Stress [...] your living situation today? I have a [facility] place to live 06/06/2023 Education Answer [...] AM CDT Clinical Communication Virtual Review in [place], [place] [address] [place] [phone] 11/15/2023 9:40 AM CDT Appointment Department of Laboratory Medicine and Pathology, [facility] in [place], [place] [address] [place] [phone] Lubna Mcmillan M.D. [address] [place] [phone] 11/15/2023 10:10 AM CDT Appointment Department of Cardiovascular Diseases in [place], [place] [address] [place] [phone] Lubna Mcmillan M.D. [address] [place] [phone] Discharge Disposition: Home or Self Care 11/15/2023 1:00 PM CDT Appointment Department of Cardiac Rehabilitation in [place], [place] [address] [place] [phone] Lubna Mcmillan M.D. [address] [place] [phone] 11/15/2023 3:00 PM CDT Office Visit Department of Cardiovascular Medicine in [place], [place] [address] [place] [phone] Lubna Mcmillan M.D. [address] [place] [phone] 11/17/2023 2:00 PM CDT Comprehensive Visit Department of Family Medicine, [facility], in [address] [phone] Ro Norton APRN, C.N.P., D.N.P. [address] [place] [phone] 11/21/2023 11:00 AM CDT Office Visit Department of Family Medicine, [facility], in [address] [place] [phone] Ro Norton APRN, C.N.Kirsty, D.N.P. [address] [place] [phone] documented as of this encounter Visit Diagnoses Not on filedocumented in this encounter Care Teams Detail Sergeant Relationship Specialty Start Date End Date Ro Norton APRN, C.N.Taylor., D.N.P. [address] [place] [phone] PCP - General Family Medicine 05/07/19 documented as of this encounter
--- OUTSIDE RECORDS SUMMARY | 2023-11-02 03:30 | XMS_ITS | Encounter Summary ---
Author Organization [facility] Address [address] [place] [address] Care Team Providers Care Avionics Electrical Engineer Name Role Phone Ro Norton APRN, C.N.P., D.N.P. Primary Ca re Provider Reason for Visit * Reason Comments Other Tooth infection Encounter Details Date Type Department Care Team (Late st Contact Info) Description 09/27/2023 3:00 PM CDT Telemedicine Department of Family Medicine, [facility], in [place], [place] [address] [place] [phone] Berna Snow APRN, C.N.P. [address] [place] [phone] Abscess Dental (Primary Dx) Discharge Disposition: Home or Self Care Social History Tobacco Use Types Packs/Day Years Used Date Smoking Tobacco: Every Day Cigarettes 0.5 30 Smokeless Tobacco: Never Comments:4-5 cigarettes a da y Alcohol Use Standard Drinks/Week Comments Not Currently 0 (1 standard drink = 0.6 oz pur e alcohol) ocassionally [facility] Utilities Answer Date Recorded In the past 12 months has e electric, gas, oil, or water [employer] threatened to shut off services in your [...] How often do you attend chur or quaker services? Never 03/25/2022 Do you belong to any clubs o r organizations such as methodist groups, unions, fraternal [...] Answer Date Recorded PHQ-2 Score 2 07/31/2023 [facility] [place] of Occupat ional Health - Occupational Stress [...] your living situation today? I have a [facility] place to live 06/06/2023 Education Answer [...] as of this encounter Progress Notes * Berna Snow, PARKING LOT LABORER, C.N.P. - 09/27/2023 3:00 PM CDT SUBJECTIVE Dental pain HISTORY OF PRESENT ILLNESS Allison Schulz is a 53 y.o. female is here today via zoom video encounter for concern regarding dental pain. She was seen via video encounter 08/14/2023 and again on 09/07/2023 for evaluation of dental infection. She was given a prescription initially for Augmentin which she completed. She felt better for a couple weeks and symptoms returned and she was given another prescription for Augmentin. She tells me that she was not faithful with completing this and feels this may have contributed to inadequate treatment. She has a dental appointment scheduled. She was having persistent right upper dental pain. No fever, chills or body aches. REVIEW OF SYSTEMS REVIEW OF SYSTEMS The following portions of the patient's history were reviewed and updated as appropriate: allergies, medications, family history, medical history, social history, surgical history and problem list. OBJECTIVE Physical Exam Limited exam, video encounter. ASSESSMENT / PLAN 1. Abscess Dental Prescription for doxycycline sent to pharmacy. Advised patient to complete full course of treatmentand follow-up with dentist as scheduled. Advised to reach out with any questions or concerns. Consult conducted via real-time audio/video technology by Berna Snow APRN, C.N.P. in [facility] to the patient in patient's home. documented in this encounter Plan of Treatment Upcoming Encounters Date Type Department Care Team (Latest Contact Info) Description 11/08/2023 11:30 AM CDT Clinical Communication Virtual Review in [address] [phone] 11/15/2023 9:40 AM CDT Appointment Department of Laboratory Medicine and Pathology, [facility] in [address] [phone] Lubna Mcmillan M.D. [address] [place] [phone] 11/15/2023 10:10 AM CDT Appointment Department of Cardiovascular Diseases in [address] [phone] Lubna Mcmillan M.D. [address] [place] [phone] Discharge Disposition: Home or Self Care 11/15/2023 1:00 PM CDT Appointment Department of Cardiac Rehabilitation in [place], [place] [address] [place] [address] Lubna Mcmillan M.D. [address] [place] [phone] 11/15/2023 3:00 PM CDT Office Visit Department of Cardiovascular Medicine in [place], [place] [address] [place] [phone] Lubna Mcmillan M.D. [address] [place] [phone] 11/17/2023 2:00 PM CDT Comprehensive Visit Department of Family Medicine, [facility], in [address] [phone] Ro Norton APRN C.N.P., D.N.P. [address] [place] [phone] 11/21/2023 11:00 AM CDT Office Visit Department of Family Medicine, [facility], in [address] [phone] Ro Norton APRN, C.N.P., D.N.P. [address] [place] [phone] documented as of this encounter Visit Diagnoses Diagnosis Abscess Dental- Primary documented in this encounter Care Teams Avionics Electrical Engineer Relationship Specialty Start Date End Date Ro Nortno APRN C.N.P., D.N.P. [address] [place] [phone] PCP - General Family Medicine 05/07/19 documented as of this encounter
--- OUTSIDE RECORDS SUMMARY | 2023-11-02 03:30 | XMS_ITS | Encounter Summary ---
Author Organization [facility] Address [address] [place] [address] Care Team Providers Care High School Library Media Specialist Name Role Phone Ro Norton APRN, C.N.P., D.N.P. Primary Ca re Provider Encounter Details Date Type Department Care Team (Late st Contact Info) Description 09/27/2023 Patient Self-Triage CONNECTED CARE Symptom Greenstone Polisher Operator, Provider Social History Tobacco Use Types Packs/Day Years Used Date Smoking Tobacco: Every Day Cigarettes 0.5 30 Smokeless Tobacco: Never Comments:4-5 cigarettes a da y Alcohol Use Standard Drinks/Week Comments Not Currently 0 (1 standard drink = 0.6 oz pur e alcohol) ocassionally [facility] Utilities Answer Date Recorded In the past 12 months has e [place], gas, oil, or water [employer] threatened to shut off services in your [...] often do you attend chur ch or judaism services? Never 03/25/2022 Do you belong to any clubs o r organizations such as adventist groups, unions, fraternal [...] Answer Date Recorded PHQ-2 Score 2 07/31/2023 [facility]ational Stress Questionnaire Answer Date Recorded [...] your living situation today? I have a [facility] place to live 06/06/2023 Education Answer [...] AM CDT Clinical Communication Virtual Review in [place], [place] [address] [place] [address] 11/15/2023 9:40 AM CDT Appointment Department of Laboratory Medicine and Pathology, [facility] in [place], [place] [address] [place] [phone] Lubna Mcmillan M.D. [address] [place] [phone] 11/15/2023 10:10 AM CDT Appointment Department of Cardiovascular Diseases in [place], [place] [address] [place] [phone] Lubna Mcmillan M.D. [address] [place] [phone] Discharge Disposition: Home or Self Care 11/15/2023 1:00 PM CDT Appointment Department of Cardiac Rehabilitation in [place], [place] [address] [place] [address] Lubna Mcmillan M.D. [address] [place] [address] 11/15/2023 3:00 PM CDT Office Visit Department of Cardiovascular Medicine in [place], [place] [address] [place] [address] Lubna Mcmillan M.D. [address] [place] [phone] 11/17/2023 2:00 PM CDT Comprehensive Visit Department of Family Medicine, [facility], in [address] [phone] Ro Norton APRN, C.N.P., D.N.P. [address] [place] [phone] 11/21/2023 11:00 AM CDT Office Visit Department of Family Medicine, [facility], in [address] [phone] Ro Norton APRN, C.N.P., D.N.P. [address] [place] [phone] documented as of this encounter Visit Diagnoses Not on filedocumented in this encounter Care Teams High [employer] Library Media Specialist Relationship Specialty Start Date End Date Ro Norton APRN C.N.P., D.N.P. [address] [place] [phone] PCP - General Family Medicine 05/07/19 documented as of this encounter
--- OUTSIDE RECORDS SUMMARY | 2023-11-02 03:30 | XMS_ITS | Encounter Summary ---
Author Organization [facility] Address [address] [place] [address] Care Team Providers Care Administration Manager Name Role Phone Ro Norton APRN, C.N.P., D.N.P. Primary Ca re Provider Encounter Details Date Type Department Care Team (Late st Contact Info) Description 09/27/2023 Patient Self-Triage CONNECTED CARE Symptom Picture Frame Maker, Provider Social History Tobacco Use Types Packs/Day Years Used Date Smoking Tobacco: Every Day Cigarettes 0.5 30 Smokeless Tobacco: Never Comments:4-5 cigarettes a da y Alcohol Use Standard Drinks/Week Comments Not Currently 0 (1 standard drink = 0.6 oz pur e alcohol) ocassionally [facility] Utilities Answer Date Recorded In the past 12 months has e [employer], gas, oil, or water [employer] threatened to shut off services in your [...] often do you attend chur ch or roman catholic services? Never 03/25/2022 Do you belong [...] Answer Date Recorded PHQ-2 Score 2 07/31/2023 [facility] - Occupational Stress Questionnaire Answer Date [...] AM CDT Clinical Communication Virtual Review in [place], [place] [address] [place] [address] 11/15/2023 9:40 AM CDT Appointment Department of Laboratory Medicine and Pathology, [facility] in [place], [place] [address] [place] [phone] Lubna Mcmillan M.D. [address] [place] [phone] 11/15/2023 10:10 AM CDT Appointment Department of Cardiovascular Diseases in [place], [place] [address] [place] [phone] Lubna Mcmillan M.D. [address] [place] [phone] Discharge Disposition: Home or Self Care 11/15/2023 1:00 PM CDT Appointment Department of Cardiac Rehabilitation in [place], [place] [address] [place] [address] Lubna Mcmillan M.D. [address] [place] [address] 11/15/2023 3:00 PM CDT Office Visit Department of Cardiovascular Medicine in [place], [place] [address] [place] [address] Lubna Mcmillan M.D. [address] [place] [phone] 11/17/2023 2:00 PM CDT Comprehensive Visit Department of Family Medicine, [facility], in [address] [phone] Ro Norton APRN, C.N.P., D.N.P. [address] [place] [phone] 11/21/2023 11:00 AM CDT Office Visit Department of Family Medicine, [facility], in [address] [phone] Ro Norton APRN, C.N.P., D.N.P. [address] [place] [phone] documented as of this encounter Visit Diagnoses Not on filedocumented in this encounter Care Teams Administration Manager Relationship Specialty Start Date End Date Ro Norton APRN C.N.P., D.N.P. [address] [place] [phone] PCP - General Family Medicine 05/07/19 documented as of this encounter
--- OUTSIDE RECORDS SUMMARY | 2023-11-02 03:30 | XMS_ITS | Encounter Summary ---
Author Organization [facility] Address [address] [place] [address] Care Team Providers Care Photographic Enlarger Operator Name Role Phone Ro Norton APRN, C.N.P., D.N.P. Primary Ca re Provider Encounter Details Date Type Department Care Team (Late st Contact Info) Description 10/17/2023 Orders Only [facility] [address] [place] [phone] Ro Norton APRN, C.N.P., D.N.P. [address] [place] [phone] Screening Cancer Colon Social History Tobacco Use Types Packs/Day Years Used Date Smoking Tobacco: Every Day Cigarettes 0.5 30 Smokeless Tobacco: Never Comments:4-5 cigarettes a da y Alcohol Use Standard Drinks/Week Comments Not Currently 0 (1 standard drink = 0.6 oz pur e alcohol) ocassionally [facility] Utilities Answer Date Recorded In [...] any clubs o r organizations such as evangelical groups, unions, fraternal [...] Answer Date Recorded PHQ-2 Score 2 07/31/2023 [facility] [place] of Occupat ional Health - Occupational Stress [...] your living situation today? I have a [facility] place to live 11/01/2023 Education Answer Date [...] AM CDT Clinical Communication Virtual Review in [place], [place] [address] [place] [phone] 11/15/2023 9:40 AM CDT Appointment Department of Laboratory Medicine and Pathology, [facility], in [place], [place] [address] [place] [phone] Lubna Mcmillan M.D. [address] [place] [phone] 11/15/2023 10:10 AM CDT Appointment Department of Cardiovascular Diseases in [place], [place] [address] [place] [phone] Lubna Mcmillan M.D. [address] [place] [phone] Discharge Disposition: Home or Self Care 11/15/2023 1:00 PM CDT Appointment Department of Cardiac Rehabilitation in [place], [place] [address] [place] [address] Lubna Mcmillan M.D. [address] [place] [phone] 11/15/2023 3:00 PM CDT Office Visit Department of Cardiovascular Medicine in [place], [place] [address] [place] [address] Lubna Mcmillan M.D. [address] [place] [phone] 11/17/2023 2:00 PM CDT Comprehensive Visit Department of Family Medicine, [facility], in [address] [phone] Ro Norton APRN, C.N.P., D.N.P. [address] [place] [phone] 11/21/2023 11:00 AM CDT Office Visit Department of Family Medicine, [facility], in [address] [phone] Ro Norton APRN, C.N.P., D.N.P. [address] [place] [phone] documented as of this encounter Visit Diagnoses Diagnosis Screening Cancer Colon documented in this encounter Additional Health Concerns Infection Onset Date Last Indicated Resolved Time COVID19 Pending 10/30/2023 10/30/2023 10/30/2023 1 1:05 PM CDT COVID19 Pending 10/31/2023 10/31/2023 10/31/2023 3 :31 AM CDT documented as of this encounter Care Teams Photographic Enlarger Operator Relationship Specialty Start Date End Date Ro Norton APRN, C.N.P., D.N.P. [address] [phone] PCP - General Family Medicine 05/07/19 documented as of this encounter
--- OUTSIDE RECORDS SUMMARY | 2023-11-02 03:30 | XMS_ITS | Encounter Summary ---
Author Organization [facility] Address [address] [place] [address] Care Team Providers Care Electrician Maintenance Name Role Phone Ro Norton APRN, C.N.P., D.N.P. Primary Ca re Provider Encounter Details Date Type Department Care Team (Late st Contact Info) Description 10/03/2023 Orders Only [facility] [address] [place] [phone] Ro Norton APRN, C.N.P., D.N.P. [address] [place] [phone] Screening Cancer Colon Social History Tobacco Use Types Packs/Day Years Used Date Smoking Tobacco: Every Day Cigarettes 0.5 30 Smokeless Tobacco: Never Comments:4-5 cigarettes a da y Alcohol Use Standard Drinks/Week Comments Not Currently 0 (1 standard drink = 0.6 oz pur e alcohol) ocassionally [facility] Utilities Answer Date Recorded In the past [...] How often do you attend chur or protestant services? Never 03/25/2022 Do you belong to any clubs o r organizations such as anabaptist groups, unions, fraternal [...] Answer Date Recorded PHQ-2 Score 2 07/31/2023 [facility] [place] of Occupat ional Health - Occupational Stress [...] your living situation today? I have a [facility] place to live 06/06/2023 Education Answer [...] AM CDT Clinical Communication Virtual Review in [place], [place] [address] [place] [phone] 11/15/2023 9:40 AM CDT Appointment Department of Laboratory Medicine and Pathology, [facility], in [place], [place] [address] [place] [phone] Lubna Mcmillan M.D. [address] [place] [phone] 11/15/2023 10:10 AM CDT Appointment Department of Cardiovascular Diseases in [place], [place] [address] [place] [phone] Lubna Mcmillan M.D. [address] [place] [phone] Discharge Disposition: Home or Self Care 11/15/2023 1:00 PM CDT Appointment Department of Cardiac Rehabilitation in [place], [place] [address] [place] [phone] Lubna Mcmillan M.D. [address] [place] [phone] 11/15/2023 3:00 PM CDT Office Visit Department of Cardiovascular Medicine in [place], [place] [address] [place] [address] Lubna Mcmillan M.D. [address] [place] [phone] 11/17/2023 2:00 PM CDT Comprehensive Visit Department of Family Medicine, [facility], in [address] [phone] Ro Norton APRN, C.N.P., D.N.P. [address] [place] [phone] 11/21/2023 11:00 AM CDT Office Visit Department of Family Medicine, [facility], in [address] [phone] Ro Norton APRN, C.N.P., D.N.P. [address] [place] [phone] Scheduled Orders Name Type Priority Associated Diagnoses Orde r Schedule Cologuard - Sent Out Lab Lab Routine Screening Cancer Colon Expected: 10/17/2023, Expires: 01/02/2025 documented as of this encounter Visit Diagnoses Diagnosis Screening Cancer Colon documented in this encounter Care Teams Electrician Maintenance Relationship Specialty Start Date End Date Ro Norton APRN, C.N.P., D.N.P. [address] [phone] PCP - General Family Medicine 05/07/19 documented as of this encounter
--- OUTSIDE RECORDS SUMMARY | 2023-11-02 03:30 | XMS_ITS | Encounter Summary ---
Author Organization [facility] Address [address] [place] [address] Care Team Providers Care Development Specialist Name Role Phone Ro Norton APRN, C.N.P., D.N.P. Primary Ca re Provider Reason for Visit * Reason Onset Date Comments Rx Prior Authorization 09/11/2023 ensure Rx Denial 09/11/2023 ENSURE Encounter Details Date Type Department Care Team (Latest Contact Info) Description 09/11/2023 Clinical Communication Department of Family Medicine, [facility], in [address] [phone] Ro Norton APRN, C.N.P., D.N.P. [address] [place] [phone] Rx Prior Authorization (ensure); Rx Denial (ENSURE ) Social History Tobacco Use Types Packs/Day Years Used Date Smoking Tobacco: Every Day Cigarettes 0.5 30 Smokeless Tobacco: Never Comments:4-5 cigarettes a da y Alcohol Use Standard Drinks/Week Comments Not Currently 0 (1 standard drink = 0.6 oz pur e alcohol) ocassionally [facility] Utilities Answer Date Recorded In the [...] do you attend [facility] or uatsdin services? Never 03/25/2022 Do you [...] Answer Date Recorded PHQ-2 Score 2 07/31/2023 [facility] - Occupational Stress Questionnaire Answer [...] your living situation today? I have a [facility] place to live 06/06/2023 Education Answer Date [...] Miscellaneous Notes * Telephone Encounter - Ro Norton APRN, C.N.P., D.N.P. - 09/14/2023 10:39 AM CDT It looks like she needs to a try an alternative, did they list the alternative anywhere? I can't seem to find it but that would be next step * Telephone Encounter - SarahKala dickinson I. - 09/13/2023 3:18 PM CDT Images [...] Release Rx: Open this encounter, go to [employer], and click on the medication. If the [...] AM CDT Clinical Communication Virtual Review in [place], [place] [address] [place] [phone] 11/15/2023 9:40 AM CDT Appointment Department of Laboratory Medicine and Pathology, [facility], in [address] [phone] Lubna Mcmillan M.D. [address] [place] [phone] 11/15/2023 10:10 AM CDT Appointment Department of Cardiovascular Diseases in [place], [place] [address] [place] [phone] Lubna Mcmillan M.D. [address] [place] [phone] Discharge Disposition: Home or Self Care 11/15/2023 1:00 PM CDT Appointment Department of Cardiac Rehabilitation in [place], [place] [address] [place] [phone] Lubna Mcmillan M.D. [address] [place] [phone] 11/15/2023 3:00 PM CDT Office Visit Department of Cardiovascular Medicine in [place], [place] [address] [place] [phone] Lubna Mcmillan M.D. [address] [place] [phone] 11/17/2023 2:00 PM CDT Comprehensive Visit Department of Family Medicine, [facility], in [address] [phone] Ro Norton APRN, C.N.P., D.N.P. [address] [place] [phone] 11/21/2023 11:00 AM CDT Office Visit Department of Family Medicine, [facility], in [address] [phone] Ro Norton APRN, C.N.P., D.N.P. [address] [place] [phone] documented as of this encounter Visit Diagnoses Not on filedocumented in this encounter Care Teams Development Specialist Relationship Specialty Start Date End Date Ro Norton APRN, C.N.P., D.N.P. [address] [phone] PCP - General Family Medicine 05/07/19 documented as of this encounter
--- OUTSIDE RECORDS SUMMARY | 2023-11-02 03:30 | XMS_ITS | Encounter Summary ---
Author Organization [facility] Address [address] [place] [address] Care Team Providers Care Gopherman Name Role Phone Ro Norton APRN, C.N.P., D.N.P. Primary Ca re Provider Encounter Details Date Type Department Care Team (Late st Contact Info) Description 09/11/2023 Clinical Communication Pharmacy Prior Auth RO [phone] Salome Alfaro Social History Tobacco Use Types Packs/Day Years Used Date Smoking Tobacco: Every Day Cigarettes 0.5 30 Smokeless Tobacco: Never Comments:4-5 cigarettes a da y Alcohol Use Standard Drinks/Week Comments Not Currently 0 (1 standard drink = 0.6 oz pur e alcohol) ocassionally [facility] Utilities Answer Date Recorded In the past 12 months has e News in Shorts, gas, oil, or water [employer] threatened to shut off services in your [...] How often do you attend chur or taoist services? Never 03/25/2022 Do you belong to [...] Date Recorded PHQ-2 Score 2 07/31/2023 [facility] Questionnaire Answer Date [...] your living situation today? I have a [facility] place to live 06/06/2023 Education Answer [...] AM CDT Clinical Communication Virtual Review in [place], [place] [address] [place] [phone] 11/15/2023 9:40 AM CDT Appointment Department of Laboratory Medicine and Pathology, [facility], in [place], [place] [address] [place] [phone] Lubna Mcmillan M.D. [address] [place] [phone] 11/15/2023 10:10 AM CDT Appointment Department of Cardiovascular Diseases in [place], [place] [address] [place] [phone] Lubna Mcmillan M.D. [address] [place] [phone] Discharge Disposition: Home or Self Care 11/15/2023 1:00 PM CDT Appointment Department of Cardiac Rehabilitation in [place], [place] [address] [place] [address] Lubna Mcmillan M.D. [address] [place] [phone] 11/15/2023 3:00 PM CDT Office Visit Department of Cardiovascular Medicine in [place], [place] [address] [place] [phone] Lubna Mcmillan M.D. [address] [place] [phone] 11/17/2023 2:00 PM CDT Comprehensive Visit Department of Family Medicine, [facility], in [address] [phone] Ro Norton APRN, C.N.P., D.N.P. [address] [place] [phone] 11/21/2023 11:00 AM CDT Office Visit Department of Family Medicine, [facility], in [address] [phone] Ro Norton APRN C.N.P., D.N.P. [address] [place] [phone] documented as of this encounter Visit Diagnoses Not on filedocumented in this encounter Care Teams Gopherman Relationship Specialty Start Date End Date Ro Norton APRN, C.N.P., D.N.P. [address] [phone] PCP - General Family Medicine 05/07/19 documented as of this encounter
--- OUTSIDE RECORDS SUMMARY | 2023-11-02 03:30 | XMS_ITS | Encounter Summary ---
Author Organization [facility] Address [address] [place] [id number] Care Team Providers Care Global Mobility Specialist Name Role Phone Ro Norton APRN, C.N.P., D.N.P. Primary Ca re Provider Reason for Visit * Auth/Cert (Routine) Specialty Diagnoses / Procedures Referred By Maria L t Referred To Contact Diagnoses Acute Respiratory Failure With Hypoxia (HCC) Hypoxic resp failure Procedures DIR Referral ID Status Reason Start Date Expiration Date Visits Re quested Visits Authorized [id number] 1 1 Encounter Details Date Type Department Care Team (Latest Contact Info) Description 10/31/2023 12:53 AM CDT - 11/01/2023 4:46 PM CDT Hospital Encounter [facility], [facility], [facility], Sixth Floor [address] [place] [phone] Whit Bhatti M.D. [address] [place] [phone] Jorge Sosa M.D. [address] [place] [phone] Acute Respiratory Failure With Hypoxia (HCC) (Primary Dx); Hypertension Pulmonary Primary (HCC) Discharge Disposition: Home or Self Care Social History Tobacco Use Types Packs/Day Years Used Date Smoking Tobacco: Every Day Cigarettes 0.5 30 Smokeless Tobacco: Never Comments:4-5 cigarettes a da y Alcohol Use Standard Drinks/Week Comments Not Currently 0 (1 standard drink = 0.6 oz pur e alcohol) ocassionally [facility] Utilities Answer Date Recorded In the past 12 months has e [employer], gas, oil, or water [employer] threatened to shut off services in your [...] often do you attend chur ch or bahai services? Never 03/25/2022 Do you belong to any clubs o r organizations such as orthodoxy groups, unions, fraternal [...] Answer Date Recorded PHQ-2 Score 2 07/31/2023 [facility] [place] [facility] - Occupational Stress [...] your living situation today? [facility] 11/01/2023 Education Answer Date [...] Mass Index 20.52 10/31/2023 1:00 AM CDT documented in this encounter Discharge Summaries * Sergei Palomares M.D. - 11/01/2023 3:53 PM CDT DISCHARGE SUMMARY BRIEF OVERVIEW Hospital: [facility] Discharge Provider: Whit Bhatti M.D. Primary Team: [facility] Medicine 1 Primary Care Providers: Ro Norton, MORGAN, C.N.PRaffy, DRaffy* (General) [address] [place] [phone] Primary Care Provider Primary Care Provider Other Providers: None Admission Date: 10/31/2023 Discharge Date: 11/01/2023 PRINCIPAL DIAGNOSIS Acute Respiratory Failure With Hypoxia (HCC) SECONDARY DIAGNOSES Principal Problem: Acute Respiratory Failure With Hypoxia (HCC) Resolved Problems: * No resolved hospital problems. * DISCHARGE DISPOSITION Home or Self Care [1] ACTIVE ISSUES REQUIRING FOLLOW UP You were admitted to the hospital because you were requiring more oxygen than normal to breathe comfortably. This was likely due to a combination of factors, namely a rhinovirus/enterovirus (common cold) infection as well as possible exacerbation of your COPD and a possible pneumonia (lung infection). We treated you with a combination of steroids, antibiotics, and inhaled nebulizer medications tohelp your breathing. You may continue these medications at home as directed below. Please return tothe hospital if you experience further shortness of breath or do not continue to get better. Pleasefollow-up with your primary care provider soon, as well as make every effort to attend your upcoming appointment with Dr. Wren (pulmonary hypertension). INSTRUCTIONS FOR PATIENT: - Cefdinir and prednisone (steroid) prescriptions have been sent to [facility] in [place]. Pleasepick them up tonight, 11/01/2023. - Start taking the cefdinir this evening, then continue twice daily for 7 doses - Start the prednisone tomorrow, and take in the morning for 2 days - Please use your home DuoNeb (Ipratropium bromide/albuterol) nebulizers four times daily until youfeel better - Please use 6 L of oxygen 24 hours a day until you are feeling back to your normal - Please call [phone] or the [facility] general number ([phone]) to schedule an appointment for gastroenterology at a time that works for you for hopeful hepatitis c treatment. OUTPATIENT FOLLOW UP Scheduled Appointments 11/08/2023 11:30 AM RST INTAKE VISIT POD A 01 Admitting/Central Scheduling 11/15/2023 9:40 AM LAB BLOOD [facility] Laboratory Medicine 11/15/2023 10:10 AM ECHO (5) ROGO 06 240 Cardiovascular Disease 11/15/2023 1:00 PM CVD SIX MIN WALK [place] Cardiovascular Disease 11/15/2023 3:00 PM Lubna Wren M.D. Cardiovascular Disease 11/17/2023 2:00 PM Ro Norton APRN, C.N.P., D.N.P. Family Medicine 11/21/2023 11:00 AM Ro Norton APRN, C.N.P., D.N.P. Family Medicine For appointment details refer to your Patient Appointment Guide. TEST RESULTS PENDING AT DISCHARGE Pending Labs None DETAILS OF HOSPITAL STAY REASON FOR ADMISSION Acute Respiratory Failure With Hypoxia (HCC) HOSPITAL COURSE Background 53 y/o female who has hx of COPD, pulmonary HTN c/b severely enlarged RV and RVSP 82 mmHg, HFpEF. Prior to Admission Presented to outside ED with worsening dyspnea and cough. She has self-titrated her home O2 to 4L and has a pulse ox at home and mentions she typically runs 78- 84%. She had been babysitting her grandson who was sick. ED Course She was given fentanyl and ativan for agitation. She was put on 15L nonrebreather then BiPAP /, RR 12, FiO2 100%, received DuoNebs. CXR showed significant pleural effusion and consolidation in R mid lung so she was given IV solumedrol, LASIX and started on ceftriaxone and Zithromax. ICU Course She was continued on CAP coverage. She was switched to doxycycline from azithromycin given prolonged QTc, though ultimately atypical coverage was discontinued because she recently completed a doxycycline course. RPP with (+) for rhinovirus/enterovirus. Throughout her stay here, she was refusing HFNC to target sats > 85%. She says her normal is in the 70's. This in addition to her feeling subjectively better led us to discharging her home from the ICU with strict return precautions. Script for homegoing O2 was updated given she refused to use anything more than NC. Disposition The patient was discharged to home on 11/01/23 in improved condition. Medications Changed Started: Prednisone total 5 day course Cefdinir total 5 day course (7 more doses) Changed: Increased oxygen to 6 liters/min 24 hours a day Stopped: none Follow up: 11/14 with CVD Call to schedule gastroenterology for hep C Primary Care Provider: Ro Norton CONSULTS ORDERED DURING THIS ADMISSION IP CONSULT TO CARE MANAGEMENT CONDITION AT DISCHARGE improved Discharge instructions were provided to the patient and caregiver(s). documented in this encounter Medications at Time of Discharge Medication Sig Dispensed Refills Start Date End Date albuterol 90 mcg/actuation inhaler INHALE 2 PUFFS BY MOUTH FOUR TIMES A DAY 54 g 3 07/25/2023 buprenorphine-naloxon e (Suboxone) 8-2 mg per [address] film Place 1 Film under the tongue daily. cefdinir (Omnicef) 300 mg capsuleIndications:Re spiratory tract infection, community acquired Take 1 capsule (300 mg total) by mouth 2 (two) times a day before morning and evening meals for 7 doses Indications: Respiratory tract infection, community acquired. 7 capsule 11/01/2023 11/05/2023 DME Oxygen Administer 1 L into nostril(s) at bedtime. DME Order DME OxygenIndications:Acu te Respiratory Failure With Hypoxia (HCC),Hypertension Pulmonary Primary (HCC) DME Order - for details see Order Report 1 each 11/01/2023 fluticasone propion-salmeteroL (Advair Diskus) 250-50 mcg/dose diskus inhaler Inhale 1 puff 2 (two) times a day. Rinse mouth with water after use to reduce aftertaste and incidence of candidiasis. Do not swallow. 60 each 11 07/25/2023 food supplemt, lactose-reduced (Ensure) liquid Take 1 bottle (237 mL) by mouth daily. Medically necessary 7110 mL 08/28/2023 furosemide (LASIX) 40 mg tablet TAKE 1 TABLET(40 MG) BY MOUTH DAILY 90 tablet 3 06/08/2023 Home Nebulizer Plus Sidestream device See Admin Instructions. 11/18/2022 ipratropium-albuteroL (DUONEB) 0.5-2.5 mg/3 mL nebulizer solution Inhale 3 mL by nebulization 4 (four) times a day. 180 mL 11 01/19/2023 macitentan (OPSUMIT) 10 mg tablet Take 1 tablet (10 mg total) by mouth daily. 30 tablet 11 04/11/2023 multivitamin capsule Take 1 capsule by mouth daily. predniSONE (Deltasone) 20 mg tablet Take 2 tablets (40 mg total) by mouth daily for 2 doses. 4 tablet 11/02/2023 11/04/2023 sildenafil (Revatio) 20 mg tablet Take 1 tablet (20 mg total) by mouth 3 (three) times a day. 90 tablet 11 08/22/2023 08/21/2024 documented as of this encounter Progress Notes * Velia Zurita M.D. - 11/01/2023 6:53 AM CDT This is a supervisory note for the critical care team. I have seen and examined patient. I have reviewed relevant medical information and discussed patient with the multi-disciplinary team. I agree with today's CCS note except as noted below. Subjective: This is a 53 y.o. year old female who was admitted to MICU for acute on chronic hypoxemic and hypercapnic respiratory failure requiring BiPAP, in the setting of chronic obstructive pulmonary disease exacerbation likely secondary to upper respiratory infection with a recent sick contact (shaila pearl). She also has a history of severe pulmonary arterial hypertension on sildenafil and macitentan (but likely have missed doses given medication refill history) with intermittent follow upin the PH clinic and HCV. Interval events: she continues to refuse oxygen therapy other than nasal cannula. Feeling better although still has saturation in the 80s. She reports her normal is in the 70s. Objective: Vitals: 11/01/23 0545 BP: Pulse: (!) 57 Resp: 15 Temp: SpO2: (!) 89% Diagnostics: I have reviewed relevant laboratory, imaging and other diagnostic tests as appropriate. Impression/ Report/ Plan: #1 Acute on chronic hypoxic respiratory failure #2 Enterovirus/ rhinovirus URI #3 Possible CAP #4 Possible COPD exacerbation #5 Severe pulmonary arterial hypertension #6 Nicotine dependence #7 Difficulty with follow up appointments due to transportation issues #8 Secondary erythrocytosis She does not want to follow our care recommendations of aiming a saturation goal of >85% and would not use any other therapy than nasal cannula, currently on 6 L. She subjectively is feeling better. Given that we can transition her to PO antibiotics and she can finish her 5 day course of prednisone at home, I think she can be discharged home if she feels comfortable. We are not doing anything f or her in the hospital anyways since she refuses any intervention that is not what she typically does at home. * Elsa Toribio R.R.T., L.R.T. - 10/31/2023 11:03 PM CDT Attempted to put patient on Optiflow with aerosol mask. Patient refused. Patient remains on 6 LPM NC * Nathan Kaur, Frankie.D., R.Ph. - 10/31/2023 10:51 AM CDT Images from the original note were not included. Admission Medication History Note Adherence issues: Reports many missed doses per month Medication list source: Patient Medication related information: Patient reports she forgets to use her Advair, last dispense was 07/25/23 for 30 days. Patient reports taking both macitentan and sildenafil (last dispenses were 09/18/23for 30 days for both). Patient reports she completed the 10 day doxycycline course filled 10/20/23. Prior to Admission Medications Med List Status: Pharmacy Complete Set By: Nathan Kaur, Pharm.D., R.Ph. at 10/31/2023 10:49 AM Taking? Last Dose Informant Start Date End Date LT albuterol 90 mcg/actuation inhaler -- -- 07/25/23 -- INHALE 2 PUFFS BY MOUTH FOUR TIMES A DAY Notes: May substitute generic Proair, generic Ventolin or generic Proventil as appropriate for patient or insurance preference buprenorphine-naloxone (Suboxone) 8-2 mg per SL film -- -- -- -- Place 1 Film under the tongue daily. DME Oxygen -- Self -- -- Administer 1 L into nostril(s) at bedtime. DME Order fluticasone propion-salmeteroL (Advair Diskus) 250-50 mcg/dose diskus inhaler -- -- 07/25/23 -- Inhale 1 puff 2 (two) times a day. Rinse mouth with water after use to reduce aftertaste and incidence of candidiasis. Do not swallow. Notes: Patient notes she forgets to use this some time food supplemt, lactose-reduced (Ensure) liquid -- -- 08/28/23 -- Take 1 bottle (237 mL) by mouth daily. Medically necessary furosemide (LASIX) 40 mg tablet -- -- 06/08/23 -- TAKE 1 TABLET(40 MG) BY MOUTH DAILY Home Nebulizer Plus Sidestream device -- -- 11/18/22 -- See Admin Instructions. ipratropium-albuteroL (DUONEB) 0.5-2.5 mg/3 mL nebulizer solution -- -- 01/19/23 -- Inhale 3 mL by nebulization 4 (four) times a day. Patient taking differently: Inhale 3 mL by nebulization 2 (two) times a day. macitentan (OPSUMIT) 10 mg tablet -- -- 04/11/23 -- Take 1 tablet (10 mg total) by mouth daily. multivitamin capsule -- Self -- -- Take 1 capsule by mouth daily. sildenafil (Revatio) 20 mg tablet -- -- 08/22/23 08/21/24 Take 1 tablet (20 mg total) by mouth 3 (three) times a day. * Vikki Bianchi R.Belkis.Yanni., L.R.T. - 10/31/2023 7:35 AM CDT Morning assessment, patient on HFNC at 55% and 35L - sats around 87%, neb given. * Nathan Kaur Pharm.D., R.Ph. 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 Also on prednisone to complete 5 days plus duonebs. Pulmonary hypertension: On home sildenafil and macitentan Med history needed, patient reports taking suboxone 4-1 in AM and PM but recent fills are for 8-2 once daily. Changes to medications anticipated at discharge:TBD Nathan Kaur, PharmRaffyD., R.Ph. documented in this encounter H&P Notes * Jorge Sosa M.D. - 10/31/2023 1:38 AM CDT SUBJECTIVE HISTORY OF PRESENT ILLNESS I met with and examined the patient, reviewed relevant notes, lab and imaging results. I have discussed the plan of care with the multidisciplinary MICU team. Briefly, Ms. Schulz is a 53 y.o. female who is being managed in the MICU for acute hypoxemic and hypercapnic respiratory failure requiring BiPAP, in the setting of chronic obstructive pulmonary disease exacerbation likely secondary to upper respiratory infection with a recent sick contact (babysitting her grandkid). Patient lives in [place], and was transferred from [place] to [facility]. The patient's background medical history includes COPD (FEV1 30% in 2020), PDA S/P ligation on 2007, severe pulmonary hypertension and tobacco use. Patient presented to an outside ED via EMS with worsening shortness of breath, headache, and cough.She requires 4L oxygen at night but began using it during the day due to O2 levels dropping to the 70s (baseline in the mid-80s in ). In the ED, her SpO2 improved to the high 80s with a 15L non-rebreather and further increased to 92-95% on BiPAP (12/6, RR 12, FiO2 100%). She received duonebs x2, and an EKG showed normal sinus rhythm with signs of RVH and T-wave inversions. CXR: large masslike consolidation right perihilar region is grossly similar to 06/26/2022. No pneumothorax or significant pleural effusion. No new consolidative opacity identified. Troponin was 10, BNP 1566, and COVID test was negative. Management prior to ICU admission included IV solu-medrol, Lasix 20 mg, Rocephin, and Zithromax. Upon arrival to the MICU, patient states being clinically improved, her shortness of breath is muchbetter compared to prior to presenting to the outside hospital. No chest pain, no abdominal pain, no headaches. No nausea or vomiting at this time. No signs of GI bleed. OBJECTIVE BP 100/68 Pulse 79 Temp 37.1 ??C (Axillary) Resp 15 Ht 170 cm Wt 59.3 kg SpO2 (!) 85% BMI 20.52 kg/m?? ASSESSMENT / PLAN #GOLD E COPD (FEV1 30% in 2020) with exacerbation #Possible viral prodrome of upper respiratory infection and recent sick contact. #Severe pulmonary hypertension #Large masslike consolidation right perihilar region #PDA S/P ligation on 2007 #Tobacco use. #Full code. Prednisone 40 mg p.o. starting tomorrow. Scheduled DuoNebs q.6 hours Continue oxygen supplementation to maintain oxygen saturations greater than 85% (baseline in the mid-80s on RA). No additional diuresis. CT scan of the chest without contrast to follow up on large masslike consolidation right perihilar region Continue ceftriaxone and azithromycin. Blood cultures and respiratory pathogen panel. Sputum culture. Heparin subQ for DVT prophylaxis. Continue ICU level of care. Family will be updated. Please see today's critical care admission note for the systems-based plan. Critical care time: 30 minutes. This is time spent at this critically ill patient's bedside actively involved in patient care as well as the coordination of care and discussions with the patient's family. This does not include any procedural time which has been billed separately. * Corin Chauhan M.D. - 10/31/2023 12:51 AM CDT RST [facility] Medicine 1 H&P NOTE SUBJECTIVE Brief Summary: Ms. Schulz is a 53 y/o female presenting as a direct admit from an outside hospital for hypoxia. Shehas a history of COPD, pulmonary HTN, HFpEF with severely enlarged RV chamber size and right ventricular systolic pressure of 82mmHg (last echo Feb 2023), current tobacco use (4 cigarettes/day), and HCV. She presented to the outside ED via EMS for worsening SOB, headache, and cough. She is on a baseline of 4L oxygen at night at home, with her baseline SpO2 level typically ranging from 78-84. She states that she called EMS because she felt sick, which was in the setting of her babysitting her grandson over the weekend. She reports that her daughter was fighting a cold and feels like she caught something from her. She endorses a subjective fever on 10/28 as well as an increased oxygen requirement(with use of her 4L oxygen during the day instead of just during the night). She was given IM fentanyl and ativan for agitation to the ED. No increased sputum production, chestpain, fevers. In the ED, she was put on 15L non- rebreather and SpO2 hemal to high 80s. She was then put on BiPAP /, RR 12, FiO2 100%, which caused her SpO2 to rise to 92-95%. Received duonebs x2. Re ceived EKG with normal sinus rhythm, signs of RVH, and some T-wave inversions. Bedside ultrasound showed biventricular enlargement. Contacted [facility], who gave IV solu-medrol, lasix 0mg, rocephin, and zithromax. CXR with significant pleural effusion and consolidation in right mid-lung. Negative COVID test. Troponin 10. BNP 1566. OBJECTIVE VITAL SIGNS Temperature: [36.4 ??C-36.5 ??C] 36.5 ??C Heart Rate: [72-81] 75 Resp Rate: [15-19] 19 Blood Pressure: (99-178)/(71-148) 99/71 SpO2: [78 %-97 %] 92 % Weight: [61.3 kg] 61.3 kg Pulse Rate: [72-79] 78 PHYSICAL EXAMINATION Constitutional: Awake, alert. Agitated with frequent outbursts. Lungs: Breathing comfortably 6L nasal pendant. Slight blue discoloration to lips and toes. Inspiratory and expiratory wheezing in L>R lobes. Crackles in L>R upper and lower lobes. Abdomen: Soft, non-tender, non-distended. Cardiac: regular rate and rhythm, no murmurs DIAGNOSTICS I have personally reviewed the laboratory data and imaging since admission, and ins/outs for past 72 hours. ASSESSMENT / PLAN Ms. Schulz is hospitalized on [facility] Medicine 1 for evaluation and management of hypoxia in the setting of 1 day with increased oxygen requirement, SOB, cough, and headache. She will be treated for aCOPD exacerbation with antibiotic coverage for possible pneumonia given areas of focal consolidation on her CXR. PLAN BY SYSTEMS: NEURO: -- Pain management: prn tylenol 325mg q6h -- Continue home suboxone CARDIAC: -- SBP goal 90-160 #HFpEF -- BNP on admission 1566 (elevated from 384 in March 2023) -- Consider repeat echo, as last one was obtained in February 2023 RESP: #COPD exacerbation #Pulmonary hypertension #Respiratory acidosis with renal compensation -- Goal O2 sat >85% -- Begin duonebs QID with albuterol PRN -- Continue home sildenafil 20mg TID and macitentan 10mg daily -- S/p IV solu-medrol 125mg in outside ED; continue prednisone 40mg daily for 5 days #Large mass-like consolidation on CXR -- CXR at outside hospital: Large masslike consolidation right perihilar region is grossly similar to 06/26/2022. -- CT chest w/o contrast today to investigate this further (no prior CT chest done to define this) : -- Monitor and replace electrolytes as needed -- Avoid nephrotoxic medications -- [employer]CI for strict I&Os GI: #Diffuse hepatic steatosis #HCV, with elevated LFTs #Elevated PT -- PT 13.1 on admission -- Follow-up LFTs -- Most recent LFTs obtained February 2023: AST 183, ALT 212 #Constipation -- PRN miralax ENDO: -- No acute concerns ID: #Possible infection in s/o COPD exacerbation and sick contacts -- Continue IV ceftriaxone 2g and doxycycline 100mg BID for 4 days -- Switched from azithromycin due to prolonged Qtc on EKG -- Sputum culture pending -- Respiratory pathogen panel pending -- Blood cultures pending HEME: #Polycythemia, likely secondary to chronic hypoxia -- Admission Hg 20.2 with Hct 63.1 -- Patient states that she is usually at an oxygenation of 78-84%, with hg and hct increased since 2020 -- EPO level pending (no prior levels in chart) -- Due to patient being under 60 years old without a known history of thrombosis, consider startingASA 81 and obtaining hematology consult given increased risk of thrombosis #Thrombocytopenia -- Admission 78 (decreased from 119 in February 2023) -- Consider peripheral smear #Anticoagulation/DVT prophylaxis -- Heparin 5000 TID ACCESS: x1 PIV DISPO -- Code Status: full -- ICU level of cares -- Diet: low sodium diet. Plan discussed with [facility] Medicine 1 Reel System Operator, Dr. Jorge López, who was present during rachel portions of the evaluation today. Please page the [facility] Medicine 1 [place] [phone] with any questions. Corin Chauhan MD Neurology PGY-1 Pager [phone] 10/31/23 12:51 AM CDT documented in this encounter Consult Notes * Chrystal Delgadillo M.S.W., LJose.S.W. - 11/01/2023 3:58 PM CDTAssociated Order(s): IP CONSULT TO CARE MANAGEMENT SUBJECTIVE Social Work met with the patient on [address] Room 520 to address the care management consult for home oxygen and discharge planning. The patient was sleeping but woke when social work entered the patients room. The patient confirmed that she has [facility] for her oxygen supply company. A reconnection was completed. The patient has new oxygen needs and will need a larger concentrator at home. [facility] was contacted and the soonest they could deliver a concentrator would be AM. The patient would like to discharge home today. [facility] is okay with patient picking up the larger concentrator on her way home to [place], [place]. The patient is being transported by [employer] ([phone]). Jaspreet at [employer] approved the extra stop at [facility]. He requested that [facility] be notified that there is an add-on (extra stop). [facility] that set up the transport was contacted and asked to contact [facility] about the add-on. The patient stated she will be fine getting into her home independently and that her daughter is home and can assist with the new concentrator. OBJECTIVE The patient resides in her [place], [place] home with her adult daughter. The patient presented to [facility] ED on 10/31/23 due to hypoxia. She was transferred to [place] and admitted to the ICU on [address] due to a primary medical problem of Acute Respiratory Failure with Hypoxia. She is medically ready to discharge home and will be discharging from the ICU. [employer] will provide transportation. ASSESSMENT / PLAN ASSESSMENT The patient was oriented x 3. She appeared tired. Her thoughts were intact and linear. Her speech was within normal limits for volume, rhythm, and tone. PLAN - The patient will be discharging from the ICU to her [place] home today, 11/01/23. - The patient will be transported by [employer] ([phone]). 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 - Social Work will continue to follow for any new discharge needs. Oxygen Reconnect: Durable Medical Equipment - Admitted Since 10/31/2023 Service Provider Selected Services Address Phone Fax Patient Preferred [facility] Durable Medical Equipment [phone] [facility] [phone] -- Contact: [facility] Respiratory Equipment : 5 Liter Concentrator and portable tanks Oxygen provider reports patient???s current orders are for 4 liters. NURSING: - Arrange transportation oxygen tank if needed. - If new oxygen requirements are needed, assist primary service with new prescription and fax to provider. PRIMARY SERVICE: - Complete and sign new oxygen prescription if needed. SOCIAL WORK: -Reviewed patient's insurance coverage for the services noted above. The patient appear(s) to have an understanding of this. -Will continue to follow and assist if needs arise. Nini Eason, L.G.S.W. 11/01/23 documented in this encounter Nursing Notes * Silvina Myers R.N. - 11/01/2023 4:15 PM CDT Problem: PAIN - ADULT Goal: PT VERBALIZES/DEMONSTRATES [...] from fall/fall injury Outcome: Adequate for Discharge Shift Goals: Pt educated and ready for discharge. Vital signs WDL except for respiratory status. Pt's SpO2% sitsaround 82% on 6L of oxygen nasal cannula. Patient refuses all other forms of oxygen interventions. Vitals: 11/01/23 1545 11/01/23 1600 11/01/23 1615 11/01/23 1630 BP: 111/71 BP Location: Right arm;Upper Patient Position: Sitting Pulse: 71 71 77 76 Resp: 16 12 20 (!) 25 Temp: 37 ??C TempSrc: Axillary Patient discharged alert and oriented via wheelchair accompanied by transport at 1635. The pt is headed to the [place] doors to get picked up by [facility] with [facility]. All IV's removed without any complications. All belongings sent home with patient. AVS reviewed and education provided. Patient doesnot have any questions or concerns at this time. Electronically signed by: Silvina Myers R.N. 11/01/23 4:40 PM CDT * Ayla Nguyen, C.R.T., L.R.T. - 11/01/2023 3:34 AM CDT Patient is a 53 y.o. female admitted on 10/31/2023 Principal Problem: Acute Respiratory Failure With Hypoxia (HCC) PMH: Past Medical History: Diagnosis Date Asthma NOS 01/2000 Chronic Obstructive Pulmonary Disease (HCC) Heart Failure NOS Hepatitis C 2016 Other Injury Of Unspecified Body Region 2019 Pneumonia N/A Psoriasis Shift Summary: Respiratory medication given. Patient remain on 6 L nasal cannula. Plan of Care: Assess and monitor respiratory status per ICU protocol, Continue to encourage coughing and deep breathing, Anesthesia bag and mask at bedside, and Administer respiratory medications as ordered Oxygen Therapy: $Delivery Method: Nasal cannula FiO2 (%): 55 % Flow Rate (L/min): 6 L/min Recent ABG: No results for input(s): PO2 ART, PCO2 ART, PH ART, HCO3 ART, BASE EXC ART in the last 24hours. Ayla Nguyen C.R.T., L.R.T. 11/01/23 3:34 AM CDT * So Riojas R.R.T., L.R.T. - 10/31/2023 6:15 PM CDT Patient is a 53 y.o. female admitted on 10/31/2023 Principal Problem: Acute Respiratory Failure With Hypoxia (HCC) Plan of Care: Patient remains on nasal cannula with SpO2 anywhere from 75%-85%. RT will continue toassess and monitor while in ICU, emergency bag and mask at bedside. Shift Summary: Patient continues to refuses all other oxygen other than nasal cannula and insists that she was told she should sat 74%- 80% at home. After many attempt to redirect or inform that her O2 is low at 70%, she still continue to pull oxygen off and refuses neb treatments. She has stated multiple times that she wants to leave- service is aware. Oxygen Therapy: $Delivery Method: Nasal cannula FiO2 (%): 55 % Flow Rate (L/min): 6 L/min Recent ABG: Recent Labs 10/31/23 0308 PO2 ART 52 L PCO2 ART 57 H PH ART 7.36 HCO3 ART 32 H BASE EXC ART 7 H oS Riojas R.R.T., L.R.TRaffy 10/31/23 6:15 PM CDT * Silvina Myers, R.NRaffy - 10/31/2023 6:07 PM CDT Shift Goals: Clinical Goals for the Shift: Pt to maintain SpO2% >85 Identify possible barriers to meeting goals/advancing plan of care: Pt compliance End of Shift Summary: Patient maintained a SpO2% above 80% during the shift. Occasionally, the pt became resistant to care refusing blood draws, IV placements, as well removing her oxygen multiple times. The patient refused all other types of oxygen equipment except the nasal cannula. Currently, the patient is on 6L nasal cannula satting around 82%. The patient states, I want to leave. CCM1 notified. The patient also mentioned that at home, her O2 saturations are around 78%-84%. Staff is unable to convince the pt to change oxygen equipment to meet her oxygen needs. Pt is full code. Electronically signed by: Silvina Myers R.N. 10/31/23 6:07 PM CDT * Adina Hernandez, R.R.T., L.R.T. - 10/31/2023 2:58 AM CDT Patient is a 53 y.o. female admitted on 10/31/2023 Principal Problem: Acute Respiratory Failure With Hypoxia (HCC) PMH: Past Medical History: Diagnosis Date Asthma NOS 01/2000 Chronic Obstructive Pulmonary Disease (HCC) Heart Failure NOS Hepatitis C 2016 Other Injury Of Unspecified Body Region 2019 Pneumonia N/A Psoriasis Shift Summary: 0100: Patient arrived to ICU. Patient is placed on BIPAP 01/25, 80% with SPO2 in the 80s. Patientdoes not tolerate the PAP and requesting it to be taken off and ripping off the mask. Patient placed on heated high flow nasal cannula 80%, 45L. Patient is not tolerating this and states the flow is too high. Patient requesting to be placed on normal nasal cannula that she is on at home. RT expressed to patient it is not enough oxygen to support her at this time. Patient is taking off the HHFNC frequentlyand states she will only wear the nasal cannula. RT placed patient on nasal cannula 6L. SPO2 remains in the 80s. Patient placed on nasal pendant 12L. SPO2 remains in the low 80s. Service at bedside and aware. Maintain SPO2 goal > 85% per service. 0258: Respiratory medications administered as ordered. Patient placed on 10L simple mask. SPO2 remains in the mid 80s at this time. Patient is tolerating the simple mask. 0603: Patient placed on HHFNC 65%, 35L. Plan of Care: Assess and monitor respiratory status per ICU protocol, Wean supplemental oxygen as tolerated by patient, Administer respiratory medications as ordered, and Continue to assess BID Oxygen Therapy: $Delivery Method: Simple mask (NEVER lower than 5 L/min) FiO2 (%): 80 % Flow Rate (L/min): 10 L/min Recent ABG: No results for input(s): PO2 ART, PCO2 ART, PH ART, HCO3 ART, BASE EXC ART in the last 24hours. Kiki Hernandez R.R.T., Ynaelis.R.T. 10/31/23 2:59 AM CDT documented in this encounter Miscellaneous Notes * Hospital Course - Sergei Palomares M.D. - 11/01/2023 3:41 PM CDT Background 53 y/o female who has hx of COPD, pulmonary HTN c/b severely enlarged RV and RVSP 82 mmHg, HFpEF. Prior to Admission Presented to outside ED with worsening dyspnea and cough. She has self-titrated her home O2 to 4L and has a pulse ox at home and mentions she typically runs 78- 84%. She had been babysitting her grandson who was sick. ED Course She was given fentanyl and ativan for agitation. She was put on 15L nonrebreather then BiPAP 12/6, RR 12, FiO2 100%, received DuoNebs. CXR showed significant pleural effusion and consolidation in R mid lung so she was given IV solumedrol, LASIX and started on ceftriaxone and Zithromax. ICU Course She was continued on CAP coverage. She was switched to doxycycline from azithromycin given prolonged QTc, though ultimately atypical coverage was discontinued because she recently completed a doxycycline course. RPP with (+) for rhinovirus/enterovirus. Throughout her stay here, she was refusing HFNC to target sats > 85%. She says her normal is in the 70's. This in addition to her feeling subjectively better led us to discharging her home from the ICU with strict return precautions. Script for homegoing O2 was updated given she refused to use anything more than NC. Disposition The patient was discharged to home on 11/01/23 in improved condition. Medications Changed Started: Prednisone total 5 day course Cefdinir total 5 day course (7 more doses) Changed: Increased oxygen to 6 liters/min 24 hours a day Stopped: none Follow up: 11/14 with CVD Call to schedule gastroenterology for hep C Primary Care Provider: Ro Norton documented in this encounter Plan of Treatment Upcoming Encounters Date Type Department Care Team (Latest Contact Info) Description 11/08/2023 11:30 AM CDT Clinical Communication Virtual Review in [address] [phone] 11/15/2023 9:40 AM CDT Appointment Department of Laboratory Medicine and Pathology, [facility] in [address] [phone] Lubna Wren M.D. [address] [place] [phone] 11/15/2023 10:10 AM CDT Appointment Department of Cardiovascular Diseases in [address] [phone] Lubna Wren M.D. [address] [place] [phone] Discharge Disposition: Home or Self Care 11/15/2023 1:00 PM CDT Appointment Department of Cardiac Rehabilitation in [address] [phone] Lubna Wren M.D. [address] [place] [phone] 11/15/2023 3:00 PM CDT Office Visit Department of Cardiovascular Medicine in [place], [place] [address] [place] [phone] Lubna Wren M.D. [address] [place] [address] 11/17/2023 2:00 PM CDT Comprehensive Visit Department of Family Medicine, [facility], in [address] [phone] Ro Norton APRN C.N.P., D.N.P. [address] [place] [phone] 11/21/2023 11:00 AM CDT Office Visit Department of Family Medicine, [facility], in [address] [phone] Ro Norton APRN, C.N.P., D.N.P. [address] [place] [phone] Scheduled Orders Name Type Priority Associated Diagnoses Orde r Schedule Bacterial Culture, Aerobic + Susceptibility, Respiratory Microbiology Routine Routine lab collection (next collection) for 1 Occurrences starting 10/31/2023 until 10/31/2023 Gram Stain Microbiology Routine Routine lab collection (next collection) for 1 Occurrences starting 10/31/2023 until 10/31/2023 documented as of this encounter Procedures Procedure Name Priority Date/Time Associated Diagnosis Comments ASPARTATE AMINOTRANSFERASE (AST), S/P STAT 11/01/2023 7:17 AM CDT POTASSIUM, S/P STAT 11/01/2023 7:17 AM CDT BILIRUBIN DIRECT, S/P STAT 11/01/2023 7:17 AM CDT HCV RNA DETECT/QUANT Routine 11/01/2023 3:27 AM CDT CBC WITH DIFFERENTIAL, B Routine 11/01/2023 3:27 AM CDT HEPATIC FUNCTION [...] OXYGEN THERAPY Routine 10/31/2023 7:49 AM CDT CBC WITH DIFFERENTIAL, B Routine 10/31/2023 3:14 AM CDT BASIC METABOLIC PANEL, S/P Routine 10/31/2023 3:14 AM CDT PATIENT STATUS, ABG STAT 10/31/2023 3 :08 AM CDT ABG W/O COOX STAT 10/31/2023 3:08 AM CDT HEPATIC FUNCTION PANEL, S Routine 10/31/2023 2:58 AM CDT ERYTHROPOIETIN (EPO), S Routine 10/31/2023 2:58 AM CDT RESPIRATORY PANEL, PCR, SITE PLANNER Routine 10/31/2023 2:18 AM CDT documented in this encounter Results * (ABNORMAL) Potassium (11/01/2023 7:17 AM CDT) Potassium, S 5.3(H) 3.6 - 5.2 mmol/L 11/01/2023 8:16 AM CDT DTL Comment: Specimen collected by special instruction procedure due to recurrent hemolysis. Blood 11/01/2023 7:17 AM CDT 11/01/2023 7:43 AM CDT Corin Chauhan M.D. LAB BLOOD ADD-ON Performing Organization Address [facility] Co de Phone Number [facility] [address] [place] [address], [facility] [address] [place] [address] * (ABNORMAL) AST (Aspartate Aminotransferase) (11/01/2023 7:17 [...] M.D. LAB BLOOD ADD-ON Performing Organization Address [facility] Co de Phone Number [facility] [address] [place] [address], [facility] [address] [place] [address] * Bilirubin, Direct (11/01/2023 7:17 AM CDT) Bilirubin, Direct, S 0.2 0.0 - 0.3 mg/dL 11/01/2023 8:16 AM CDT DTL Comment: Specimen collected by special instruction procedure due to recurrent hemolysis. Blood 11/01/2023 7:17 AM CDT 11/01/2023 7:43 AM CDT Corin Chauhan M.D. LAB BLOOD ADD-ON [facility] [address] [place] [address], [facility] DTL [facility] [address] [place] [address] * (ABNORMAL) CBC with Differential, Blood (11/01/2023 3:27 AM CDT) Hemoglobin 17.1(H) 11.6 - 15.0 g/dL 11/01/2023 [...] CDT Corin Chauhan M.D. LAB BLOOD ADD-ON [facility] [address] [place] [address], [place] DTL [facility] [address] [place] [address] [facility] [address] [place] [address] * (ABNORMAL) HCV RNA Detect / Quant, Serum (11/01/2023 3:27 AM CDT) [facility] HCV RNA Detect/Quant, S [id number](A ) Undetected IU/mL 11/01/2023 1:32 PM CDT [facility] Comment: Result in log IU/mL is 5.72. ----ADDITIONAL INFORMATION---- The quantification range of this assay is 15 to 100,000,000 IU/mL (1.18 log to 8.00 log IU/mL). Testing was performed using the sandra HCV test ([employer] Blood (Blood, Venous) 11/01/2023 3:27 AM CDT 11/01/2023 8:12 AM CDT Sergei Palomares M.D. LAB MICROBIOLOGY - BLOOD ORDERABLES Performing Organization Address City/[facility]/ZIP Co de Phone Number [facility] [place] [address] [place] [address] [facility] [address] [place] [address] [place] [address] * (ABNORMAL) Basic Metabolic Panel (11/01/2023 3:26 AM CDT) [facility] Potassium, S CANCELED mmol/L 11/01/2023 4:44 AM [...] CDT Corin Chauhan M.D. LAB BLOOD ADD-ON [address] [address], [facility] [address] [address] * (ABNORMAL) Hepatic Function Panel (11/01/2023 3:26 AM CDT) Bilirubin, Total, S 0.4 0.0 - 1.2 [...] CDT Sergei Palomares M.D. LAB BLOOD ADD-ON Performing Organization Address City/[facility]/[place]IP [place] [address] * (ABNORMAL) Staph aureus / MRSA, Nasal, PCR (10/31/2023 2:27 PM CDT) Pathologist [facility] Staphylococcus aureus, PCR Positive(A) Negative 10/31/2023 4:08 PM CDT DTL MRSA, PCR Negative Negative 10/31/2023 4:08 PM CDT DTL Comment: Methicillin (oxacillin)-susceptible Staphylococcus aureus complex detected. Swab (Nares) 10/31/2023 2:27 PM CDT 10/31/2023 2:51 PM CDT Sergei Palomares M.D. LAB MICROBIOLOGY - GENERAL ORDERABLES Performing Organization Address City/[facility]/[place]IP [place] [address] * (ABNORMAL) Hepatic Function Panel (10/31/2023 12:12 PM CDT) Pathologist [facility] Bilirubin, Total, S 0.6 0.0 - 1.2 mg/dL 10/31/2023 1:36 PM CDT DTL Bilirubin, Direct, S CANCELED mg/dL 10/21 2:01 PM CDT DTL Comment: Specimen was hemolyzed. Provider contacted at [phone] and asked to cancel without redraw. 10/31/2023 ?? 14:00 [employer] Result canceled by the ancillary. Aspartate Aminotransferase (AST), S CANCELED U/L 10/31/2023 2:01 PM CDT DTL Comment: Specimen was hemolyzed. Provider contacted at [phone] and asked to cancel without redraw. 10/31/2023 ?? 14:00 [employer] Result canceled by the ancillary. Alanine Aminotransferase (ALT), S 104(H) 7 - 45 U/L 10/31/2023 1:36 PM CDT DTL Alkaline Phosphatase, S 89 35 - 104 U/L 10/31/2023 1:36 PM CDT DTL Albumin, S 3.4(L) 3.5 - 5.0 g/dL 10/31/2023 1:36 PM CDT DTL Protein, Total, S 6.5 6.3 - 7.9 g/dL 10/31/2023 1:36 PM CDT DTL Blood (Blood, Venous) 10/31/2023 12:12 PM CDT 10/31/2023 1:06 PM CDT Corin Chauhan M.D. LAB BLOOD ADD-ON [facility] [address] [place] [address], [facility] DTL [facility] [address] [place] [address] * CT Chest Angiogram and Pulmonary Arteries [...] to assess for resolution. Sergei Palomares M.D. [facility] PROCEDURES * (ABNORMAL) Basic Metabolic Panel (10/31/2023 3:14 AM CDT) Pathologist [facility] Potassium, S 5.0 3.6 - 5.2 mmol/L 10/31/2023 4:18 AM CDT DTL Sodium, S 139 135 - 145 mmol/L 10/31/2023 4:18 AM CDT DTL Chloride, S 97(L) 98 - 107 mmol/L 10/31/2023 4:18 AM CDT DTL Bicarbonate, S 29 22 - 29 mmol/L 10/31/2023 4:18 AM CDT DTL Anion Gap 13 7 - 15 10/31/2023 4:18 AM CDT DTL BUN (Blood Urea Nitrogen), S 24(H) 6 - 21 mg/dL 10/31/2023 4:18 AM CDT DTL Creatinine 0.89 0.59 - 1.04 mg/dL 10/31/2023 4:18 AM CDT DTL Estimated GFR (eGFR) 78 >=60 mL/min/BSA 10/31/2023 4:18 AM CDT DTL Comment: Estimated GFR calculated using the 2020 CKD_EPI creatinine equation. Calcium, Total, S 8.7 8.6 - 10.0 mg/dL 10/31/2023 4:18 AM CDT DTL Glucose, S 282(H) 70 - 140 mg/dL 10/31/2023 4:18 AM CDT DTL Blood (Blood, Venous) 10/31/2023 3:14 AM CDT 10/31/2023 3:17 AM CDT Corin Chauhan M.D. LAB BLOOD ADD-ON [facility] [address] [place] [address], [facility] [address] [place] [address] * (ABNORMAL) CBC with Differential, Blood (10/31/2023 3:14 AM CDT) Hemoglobin 17.0(H) 11.6 - 15.0 g/dL 10/31/2023 3:48 AM CDT DTL Hematocrit 54.0(H) 35.5 - 44.9 % 10/31/2023 3:48 AM CDT DTL Erythrocytes 5.39(H) 3.92 - 5.13 x10(12)/L 10/31/2023 3:48 AM CDT DTL MCV 100.2(H) 78.2 - 97.9 fL 10/31/2023 3:48 AM CDT DTL RBC Distrib Width 15.8 12.2 - 16.1 % 10/31/2023 3:48 AM CDT DTL Platelet Count 82(L) 157 - 371 x10(9)/L 10/31/2023 4:52 AM CDT DTL Comment:Results confirmed by smear, no clumping or interference seen. Leukocytes 3.9 3.4 - 9.6 x10(9)/L 10/31/2023 4:52 AM CDT DTL Neutrophils 3.39 1.56 - 6.45 x10(9)/L 10/31/2023 3:48 AM CDT DHPM Lymphocytes 0.46(L) 0.95 - 3.07 x10(9)/L 10/31/2023 3:48 AM CDT DTL Monocytes 0.05(L) 0.26 - 0.81 x10(9)/L 10/31/2023 3:48 AM CDT DTL Eosinophils <0.03 0.03 - 0.48 x10(9)/L 10/31/2023 3:48 AM CDT DTL Basophils <0.03 0.01 - 0.08 x10(9)/L 10/31/2023 3:48 AM CDT DTL Blood (Blood, Venous) 10/31/2023 3:14 AM CDT 10/31/2023 3:41 AM CDT Corin Chauhan M.D. LAB BLOOD ADD-ON [facility] [address] [place] [address], [facility] DTL [facility] [address] [place] [address] [facility] [address] [place] [address] * Patient Status (10/31/2023 3:08 AM CDT) O2 Flow 10.0L L/min 10/31/2023 3:14 AM CDT [facility] Comment:REVISED RESULTS Device NC 10/31/2023 3:14 AM CDT [facility] Comment:REVISED RESULTS Spont. breaths/min 15 10/31/2023 3:14 AM CDT [facility] Comment:REVISED RESULTS Blood 10/31/2023 3:08 AM CDT 10/31/2023 3:08 AM CDT Corin Chauhan M.D. LAB BLOOD NON ADD-ON [facility] [address] [place], [place] [address] [place] [address] [address] [place] [address] * (ABNORMAL) Blood Gas without Coox, Arterial [...] Corin Chauhan M.D. LAB BLOOD NON ADD-ON [facility] [place] [address] [place] [address], [facility] [address] [place] [address] * (ABNORMAL) Erythropoietin (EPO) (10/31/2023 2:58 AM CDT) Erythropoietin (EPO), S 18.8(H) 2.6 - 18.5 mIU/mL 10/31/2023 10:11 AM CDT [facility] Blood 10/31/2023 2:58 AM CDT 10/31/2023 8:56 AM CDT Corin Chauhan M.D. LAB BLOOD ADD-ON [facility] [address] [place] [address] [facility] [address] [place] [address] * (ABNORMAL) Hepatic Function Panel (10/31/2023 2:58 AM CDT) Bilirubin, Total, S 0.5 0.0 - 1.2 mg/dL 10/31/2023 4:18 AM CDT DTL Bilirubin, Direct, S CANCELED mg/dL 10/21 4:20 AM CDT DTL Comment: Specimen was hemolyzed. Result canceled by the ancillary. Aspartate Aminotransferase (AST), S CANCELED U/L 10/31/2023 4:20 AM CDT DTL Comment: Specimen was hemolyzed. Result canceled by the ancillary. Alanine Aminotransferase (ALT), S 114(H) 7 - 45 U/L 10/31/2023 4:18 AM CDT DTL Alkaline Phosphatase, S 94 35 - 104 U/L 10/31/2023 4:18 AM CDT DTL Albumin, S 3.6 3.5 - 5.0 g/dL 10/31/2023 4:18 AM CDT DTL Protein, Total, S 6.8 6.3 - 7.9 g/dL 10/31/2023 4:18 AM CDT DTL Blood (Blood, Venous) 10/31/2023 2:58 AM CDT 10/31/2023 3:55 AM CDT Corin Chauhan M.D. LAB BLOOD ADD-ON [facility] [address] [place] [address], [place] DTL [facility] [address] [place] [address] * (ABNORMAL) Respiratory Panel, PCR, Nasopharyngeal (10/31/2023 2:18 AM CDT) Specimen Source NASOPHARYNGEAL SWAB 10/31/2023 3:31 AM [...] using the FDA-Cleared FilmArray Respiratory Panel 2.1 ([employer]). Swab (Nasopharynx) 10/31/2023 2:18 AM CDT 10/31/2023 2:35 AM CDT Corin Chauhan M.D. LAB MICROBIOLOGY - [facility] ORDERABLES Performing Organization Address City/State/[facility] Co de Phone Number [facility] [address] [place] [address], [facility] DTL [address] [facility] [address] [place] [address] documented in this encounter Visit Diagnoses Diagnosis Acute Respiratory Failure With Hypoxia (HCC)- Primary Acute Respiratory Failure With Hypoxia (HCC) Hypertension Pulmonary Primary (HCC) documented in this encounter Admitting Diagnoses Diagnosis Acute Respiratory Failure With Hypoxia (HCC) documented in this encounter Administered Medications Inactive Administered Medications - up to 3 most recent administrations Medication Order MAR Action Action Date Dose Rate Site acetaminophen tablet 325 mg (TylenoL) 325 mg, oral, Every 6 hours PRN, moderate pain or score 4-6 of 10, severe pain or score 7-10 of 10, Starting on Mon10/31/23 at 0319 albuterol nebulizer solution 2.5 mg 2.5 mg, nebulization, Every 4 hours PRN, wheezing, Starting on Mon10/31/23 at 0152 buprenorphine-naloxo ne 4-1 mg per SL Film 4 mg of buprenorphine (Suboxone) 4 mg of buprenorphine (1 Film), sublingual, Daily, First dose (after last modification) on Mon10/31/23 at 1100, For 1 dose, Select indication: Opioid Use Disorder (OUD), Continuation of [id number] therapy? Yes Given 10/31/2023 11:41 AM CDT 4 mg of buprenorphine buprenorphine-naloxo ne 4-1 mg per SL Film 4 mg of buprenorphine (Suboxone) 4 mg of buprenorphine (1 Film), sublingual, Once, On Mon10/31/23 at 1115, For 1 dose, Select indication: Opioid Use Disorder (OUD), Continuation of [id number] therapy? Yes Given 10/31/2023 11:42 AM CDT 4 mg of buprenorphine buprenorphine-naloxo ne 8-2 mg per SL Film 8 mg of buprenorphine (Suboxone) 8 mg of buprenorphine (1 Film), sublingual, Daily, First dose on Mon11/01/23 at 0900, Select indication: Opioid Use Disorder (OUD), Continuation of ftsrn-qr-javudybel therapy? Yes Given 11/01/2023 9:24 AM CDT 8 mg of buprenorphine cefdinir capsule 300 mg (Omnicef) 300 mg, oral, 2 times daily before morning and evening meals, First dose (after last modification) on Mon11/01/23 at 1600, For 7 doses, Administer 2 hours before or 6 hours after taking magnesium, aluminum (antacids, laxatives) or calcium and iron supplements (multivitamins); may be taken with calcium or iron if given with food., Drug Monitoring Program: Pharmacist to adjust medication dosing based on indication and drug clearance factors., Indications: Respiratory tract infection, community acquired Given 11/01/2023 4:28 PM CDT 300 mg cefTRIAXone in dextrose (iso osm) IVPB 2 g (Rocephin) 2 g, intravenous, at 200 mL/hr, Administer over 15 Minutes, Every 24 hours, First dose on Mon10/31/23 at 2300, For 4 days, Drug Monitoring Program: Pharmacist to adjust medication dosing based on indication and drug clearance factors., Indications: Respiratory tract infection, healthcare associated New Bag 10/31/2023 10:14 PM CDT 2 g 200 mL/hr doxycycline monohydrate tablet 100 mg (Adoxa) 100 mg, oral, 2 times daily before morning and evening meals, First dose on Mon10/31/23 at 0700, Administer 2 hours before or 6 hours after taking magnesium, aluminum (antacids, laxatives) or calcium and iron supplements (multivitamins). Ensure patient remains upright for 30 minutes post-dose., Indications: Respiratory tract infection, healthcare associated Given 10/31/2023 6:06 AM CDT 100 mg heparin (porcine) injection 5,000 Units 5,000 Units, subcutaneous, Every 8 hours scheduled, First dose on Mon10/31/23 at 0600 Given 11/01/2023 1:29 PM CDT 5,000 Units Left Upper Arm (Back) Given 10/31/2023 10:14 PM CDT 5,000 Units Right Upper Arm (Back) Given 10/31/2023 2:08 PM CDT 5,000 Units R ight Lower Abdomen hydrOXYzine tablet 25 mg (Atarax) 25 mg, oral, Once, On Mon10/31/23 at 2030, For 1 dose Given 10/31/2023 8:25 PM CDT 25 mg iopromide 370 mg iodine/mL injection 1-162 mL (Ultravist) 1-162 mL, intravenous, Once in imaging, contrast, Starting on Mon10/31/23 at 0811, For 1 dose, Imaging Protocol Orders, Dose per Radiant Medication Guidelines Given 10/31/2023 8:13 AM CDT 80 mL ipratropium-albuteroL 0.5-2.5 mg/3 mL nebulizer solution 3 mL (DuoNeb) 3 mL, nebulization, 4 times daily (RT), First dose on Mon10/31/23 at 0200 Given 11/01/2023 2:41 PM CDT 3 mL Given 11/01/2023 10:51 AM CDT 3 mL Given 11/01/2023 8:53 AM CDT 3 mL macitentan tablet 10 mg (Opsumit) 10 mg, oral, Daily, First dose on Mon11/01/23 at 1145, Is the patient enrolled in the REMS program? Yes, Is the patient of reproductive potential? Patient not of reproductive potential, Continuation of xdtad-kb-glhnoxkpz therapy? Yes, Is the patient under the care of an enrolled provider? Yes, I certify that I have reviewed and ensured compliance to the REMS program requirements outlined in the reference links: Yes Given 11/01/2023 1:29 PM CDT 10 mg polyethylene glycol powder packet 17 g (Miralax) 17 g, oral, 2 times daily, First dose (after last modification) on Mon11/01/23 at 2100, Dissolve in 240 mLs (8 ounces) of water prior to giving. Avoid mixing with starch-based thickened liquids. predniSONE tablet 40 mg (Deltasone) 40 mg, oral, Daily, First dose on Mon10/31/23 at 0900, For 4 days Given 11/01/2023 9:24 AM CDT 40 mg Given 10/31/2023 9:27 AM CDT 40 mg sennosides tablet 8.6 mg (Senokot) 8.6 mg, oral, 2 times daily, First dose (after last modification) on Mon11/01/23 at 2100 sildenafil tablet 20 mg (Revatio) 20 mg, oral, 3 times daily, First dose on Mon10/31/23 at 0900 Given 11/01/2023 1:29 PM CDT 20 mg Given 11/01/2023 9:24 AM CDT 20 mg Given 10/31/2023 8:25 PM CDT 20 mg sodium chloride (PF) 0.9 % injection 1-100 mL 1-100 mL, intravenous, Once, On Mon10/31/23 at 0830, For 1 dose, Imaging Protocol Orders, Dose per Radiant Medication Guidelines Given 10/31/2023 8:13 AM CDT 30 mL sodium chloride 0.65 % nasal spray 1 spray (Breckinridge) 1 spray, each nostril, As needed, congestion, dryness, Starting on Mon11/01/23 at 0211 Given 11/01/2023 9:24 AM CDT 1 spray documented in this encounter Active and Recently Administered Medications Times are shown in CDT. Scheduled Medication Order 10/30/2023 10/31/2023 11/01/2023 buprenorphine-naloxone 4-1 mg per SL Film 4 mg of buprenorphine (Suboxone) (COMPLETED) 4 mg of buprenorphine (1 Film), sublingual, Daily, First dose (after last modification) on Mon10/31/23 at 1100, For 1 dose, Select indication: Opioid Use Disorder (OUD), Continuation of hwhwg-it-odihzqrmv therapy? Yes 1141 (Given - Provider: Silvina Myers R.N.) buprenorphine-naloxone 4-1 mg per SL Film 4 mg of buprenorphine (Suboxone) (COMPLETED) 4 mg of buprenorphine (1 Film), sublingual, Once, On Mon10/31/23 at 1115, For 1 dose, Select indication: Opioid Use Disorder (OUD), Continuation of mxqbm-dx-owgtnnidw therapy? Yes 1142 (Given - Provider: Silvina Myers R.N.) buprenorphine-naloxone 8-2 mg per SL Film 8 mg of buprenorphine (Suboxone) 8 mg of buprenorphine (1 Film), sublingual, Daily, First dose on Mon11/01/23 at 0900, Select indication: Opioid Use Disorder (OUD), Continuation of tlrqv-qb-gomavsmcv therapy? Yes 923 (Given - Provid er: Silvina Myers RRaffyN.) cefdinir capsule 300 mg (Omnicef) 300 mg, oral, 2 times daily before morning and evening meals, First dose (after last modification) on Mon11/01/23 at 1600, For 7 doses, Administer 2 hours before or 6 hours after taking magnesium, aluminum (antacids, laxatives) or calcium and iron supplements (multivitamins); may be taken with calcium or iron if given with food., Drug Monitoring Program: Pharmacist to adjust medication dosing based on indication and drug clearance factors., Indications: Respiratory tract infection, community acquired 1628 (Given - Provid er: Silvina Myers RToya.) cefTRIAXone in dextrose (iso osm) IVPB 2 g (Rocephin) (CANCELED) 2 g, intravenous, at 200 mL/hr, Administer over 15 Minutes, Every 24 hours, First dose on Mon10/31/23 at 2300, For 4 days, Drug Monitoring Program: Pharmacist to adjust medication dosing based on indication and drug clearance factors., Indications: Respiratory tract infection, healthcare associated 4 (New Bag - Provider: Bernard Rowland RRaffyNRaffy) doxycycline monohydrate tablet 100 mg (Adoxa) (CANCELED) 100 mg, oral, 2 times daily before morning and evening meals, First dose on Mon10/31/23 at 0700, Administer 2 hours before or 6 hours after taking magnesium, aluminum (antacids, laxatives) or calcium and iron supplements (multivitamins). Ensure patient remains upright for 30 minutes post-dose., Indications: Respiratory tract infection, healthcare associated 06 (Given - Provider: Diogo Stevenson R.N.) heparin (porcine) injection 5,000 Units 5,000 Units, subcutaneous, Every 8 hours scheduled, First dose on Mon10/31/23 at 0600 0606 (Given - Provider: Diogo Stevenson R.N.)1408 (Given - Provider: Silvina Myers R.N.)2214 (Given - Provider: Bernard Rowland R.N.) 0620 (Not Given - Provider: Bernard Rowland R.N. - Reason: Patient/family refused)1329 (Given - Provider: Silvina Myers R.N.) hydrOXYzine tablet 25 mg (Atarax) (COMPLETED) 25 mg, oral, Once, On Mon10/31/23 at 2030, For 1 dose 2024 (Given - Provider: Bella Navarro R.N., CCRN) ipratropium-albuteroL 0.5-2.5 mg/3 mL nebulizer solution 3 mL (DuoNeb) 3 mL, nebulization, 4 times daily (RT), First dose on Mon10/31/23 at 0200 0247 (Given - Provider: Ayla Nguyen, C.R.T., L.R.T.)0731 (Given - Provider: Vikki Bianchi, R.R.T., L.R.T.)1120 (Not Given - Provider: So Riojas, R.R.T., L.R.T. - Reason: Patient/family refused - Comment: Patient very agitated at this time.)1429 (Given - Provider: Vikki Bianchi, R.R.T., L.R.T.)1944 (Given - Provider: Elsa Toribio, R.R.T., L.R.T.) 0853 (Given - Provider: Blaire Alfred, R.R.T., L.R.T.)1051 (Given - Provider: Tim Aldridge, R.R.T., L.R.T.)1441 (Given - Provider: Tim Aldridge R.R.T., L.R.T.) macitentan tablet 10 mg (Opsumit) 10 mg, oral, Daily, First dose on Mon11/01/23 at 1145, Is the patient enrolled in the REMS program? Yes, Is the patient of reproductive potential? Patient not of reproductive potential, Continuation of hjrpq-ka-jclokgptt therapy? Yes, Is the patient under the care of an enrolled provider? Yes, I certify that I have reviewed and ensured compliance to the REMS program requirements outlined in the reference links: Yes 1329 (Given - Provid er: Silvina Myers R.N.) polyethylene glycol powder packet 17 g (Miralax) 17 g, oral, 2 times daily, First dose (after last modification) on Mon11/01/23 at 2100, Dissolve in 240 mLs (8 ounces) of water prior to giving. Avoid mixing with starch-based thickened liquids. predniSONE tablet 40 mg (Deltasone) 40 mg, oral, Daily, First dose on Mon10/31/23 at 0900, For 4 days 0927 (Given - Provider: Silvina Myers R.N.) 0924 (Given - Provider: Silvina Myers R.N.) sennosides tablet 8.6 mg (Senokot) 8.6 mg, oral, 2 times daily, First dose (after last modification) on Mon11/01/23 at 2100 sildenafil tablet 20 mg (Revatio) 20 mg, oral, 3 times daily, First dose on Mon10/31/23 at 0900 0927 (Given - Provider: Silvina Myers R.N.)1410 (Given - Provider: Silvina Myers R.N.)2024 (Given - Provider: Bella Navarro R.N., CCRN) 0924 (Given - Provider: Silvina Myers R.N.)1329 (Given - Provider: Silvina Myers R.N.) sodium chloride (PF) 0.9 % injection 1-100 mL (COMPLETED) 1-100 mL, intravenous, Once, On Mon10/31/23 at 0830, For 1 dose, Imaging Protocol Orders, Dose per Radiant Medication Guidelines 0813 (Given - Provider: Kurtis Burden R.N.) PRN Medication Order 10/30/2023 10/31/2023 11/01/2023 acetaminophen tablet 325 mg (TylenoL) 325 mg, oral, Every 6 hours PRN, moderate pain or score 4-6 of 10, severe pain or score 7-10 of 10, Starting on Mon10/31/23 at 0319 albuterol nebulizer solution 2.5 mg 2.5 mg, nebulization, Every 4 hours PRN, wheezing, Starting on Mon10/31/23 at 0152 iopromide 370 mg iodine/mL injection 1-162 mL (Ultravist) (COMPLETED) 1-162 mL, intravenous, Once in imaging, contrast, Starting on Mon10/31/23 at 0811, For 1 dose, Imaging Protocol Orders, Dose per Radiant Medication Guidelines 0813 (Given - Provider: Kurtis Burden R.N.) sodium chloride 0.65 % nasal spray 1 spray (Breckinridge) 1 spray, each nostril, As needed, congestion, dryness, Starting on Mon11/01/23 at 0211 0924 (Given - Provid er: Silvina Myers R.N.) documented in this encounter Additional Health Concerns Infection Onset Date Last Indicated Resolved Time COVID19 Pending 10/31/2023 10/31/2023 10/31/2023 3 :31 AM CDT documented as of this encounter Care Teams Global Mobility Specialist Relationship Specialty Start Date End Date Ro Norton APRN, C.N.P., D.N.P. [id number] [id number] PCP - General Family Medicine 05/07/19 documented as of this encounter
--- OUTSIDE RECORDS SUMMARY | 2023-11-02 03:30 | XMS_ITS | Encounter Summary ---
Author Organization [facility] Address [address] [place] [address] Care Team Providers Care Software Asset Manager Name Role Phone Ro Norton APRN C.N.PRaffy, D.N.P. Primary Ca re Provider Reason for Visit * Reason Comments Shortness of Breath 53 yo presents to [facility] ED via [facility] with c/o worsening shortness of breath, cough, and headache. Patient received Fentanyl, and Ativan en-route for agitation, shortness of breath, and headache. Patient has productive cough with clear sputum. Encounter Details Date Type Department Care Team (Late Contact Info) Description 10/30/2023 9:57 PM CDT - 10/31/2023 12:05 AM CDT Emergency [facility] [address] [place] [phone] Serjio Gonsalves APRN, C.N.P., D.N.P., M.S.N. [address] [place] [phone] Acute And Chronic Respiratory Failure With Hypoxia (HCC) (Primary Dx); Chronic Obstructive Pulmonary Disease Exacerbation (HCC); Acute Respiratory Failure With Hypercapnia (HCC) Discharge Disposition: Acute Care Hospital Social History Tobacco Use Types Packs/Day Years Used Date Smoking Tobacco: Every Day Cigarettes 0.5 30 Smokeless Tobacco: Never Comments:4-5 cigarettes a da y Alcohol Use Standard Drinks/Week Comments Not Currently 0 (1 standard drink = 0.6 oz pur e alcohol) ocassionally [facility] Utilities Answer Date Recorded In the [...] any clubs o r organizations such as muslim groups, unions, fraternal [...] Answer Date Recorded PHQ-2 Score 2 07/31/2023 [facility] of Occupat ional [facility] - Occupational Stress Questionnaire Answer Date Recorded [...] Sign Reading Time Taken Comments Blood Pressure 99/71 10/30/2023 11:00 PM CDT Pulse 78 10/30/2023 11:45 PM CDT Temperature 36.5 ??C (97.7 ??F) 10/30/2023 11:00 PM C DT Respiratory Rate 19 10/30/2023 11:15 PM CDT Oxygen Saturation 92% 10/30/2023 11:45 PM CDT Inhaled Oxygen Concentration - - Weight 61.3 kg (135 lb 2.3 oz) 10/30/2023 9:41 P M CDT Height - - Body Mass Index 18.85 06/26/2022 11:03 PM CDT documented in this encounter Medications [...] 08/22/2023 08/21/2024 documented as of this encounter Procedure Notes * Serjio Gonsalves APRN, C.NDean, Katelynn.N.P., M.S.N. - 10/30/2023 11:19 PM CDT Associated Order(s): Critical Care Procedure Critical Care Performed by: Serjio Gonsalves APRN, Bolivar.N.PRaffy, Katelynn.N.P., M.S.N. Authorized by: Serjio Gonsalves APRN, Bolivar.N.PRaffy, D.N.P., M.S.N. Critical care provider statement: Critical care total time (minutes): 45 Critical care time was exclusive of: separately billable procedures and treating other patients andteaching time CPR was performed on this patient: [...] from another provider in my specialty: no Serjio Gonsalves APRN, C.N.P., Kristin, M.S.N. 10/30/23 1017 documented in this encounter ED Notes * Serjio Gonsalves APRN, C.N.P., Kristin, M.S.N. - 10/30/2023 10:49 PM CDT SUBJECTIVE CHIEF COMPLAINT/REASON FOR VISIT Shortness of Breath (53 yo presents to the ED via [facility] with c/o worsening shortnessof breath, cough, and headache. Patient received Fentanyl, and Ativan en-route for agitation, shortness of breath, and headache. Patient has productive cough with clear sputum. ) HISTORY OF PRESENT ILLNESS Allison Schulz is a 53 y.o. female with multiple complex comorbidities including COPD, pulmonary hypertension, heart failure, long-time tobacco use, and other chronic medical conditions. She presentedto ED via EMS ambulance for evaluation of worsening shortness of breath, cough, and headache. Patient verbalized she is usually on 4 L oxygen at night. However since yesterday she has been on 4 L oxygen continuously both day and night because of shortness of breath and SpO2 in the 70s. She verbalized her oxygen is usually in the mid 80s at baseline on oxygen. Per EMS, patient was noted to be hypoxic in the lower 70s on 4 L oxygen. She was then placed on subsequently non-rebreather mask at 15 L and SpO2 hemal up to high 80s. Was given IM fentanyl and Ativan enroute due to agitation. She denies any increased sputum production. No chest pain. No fevers or chills. Denies any recent weight gain or lower extremity swelling. No recent immobilization. Has been using her inhalers and nebulizers as needed with no significant improvement. Has been taking her medications as ordered. Denies any other associated symptoms. REVIEW OF SYSTEMS All negative except as indicated in HPI OBJECTIVE Initial Vitals [10/30/23 2141] Temperature 36.4 ??C Pulse Rate 72 Heart Rate 73 Resp Rate 16 Blood Pressure 130/86 SpO2 (!) 78 % Pain Score 7 PHYSICAL EXAMINATION Constitutional: Nursing note and vitals reviewed. HENT: Head: Atraumatic. Mouth/Throat: Mucous membranes are moist. Eyes: Conjunctivae are normal. Neck: Neck supple. Cardiovascular: Regular rhythm and normal heart sounds. Pulses are palpable. Edema: no edema noted Pulmonary/Chest: No stridor. Tachypnea noted. She is in respiratory distress. Air movement is not decreased. She has wheezes. She has no rales. Abdominal: exhibits no distension. There is no abdominal tenderness. There is no guarding. Musculoskeletal: General: No tenderness, deformity or edema. Normal range of motion. Cervical back: Neck supple. Neurological: Alert and oriented to person, place, and time. Skin: Skin is warm, intact and normal color. Psychiatric: She has a normal mood and affect. ASSESSMENT/PLAN Patient presented today for evaluation of worsening shortness of breath, increased oxygen need, cough, and headache. Upon presenting to the ED, she was alert and oriented x3. Speech is clear and speaking in full sentences but tachypneic. Mentating well. SpO2 was low in the low 70s on 4 L nasal cannula. She was then placed on a Oxy Mask and non-rebreather mask at 15 L but continues to be hypoxic between high 70s and low 80s. Care was subsequently escalated and placed on a BiPAP with initial setting of 12/6, respiratory rate of 12 and FiO2 of 100%. Her SpO2 subsequently hemal up to 95-96%. Her lung signs shows bilateral expiratory wheezing. No obvious crackles. Was given 2 doses of DuoNeb treatment Differential diagnosis include but not limited to COPD exacerbation, pneumonia, ACS, pulmonaryedema/heart failure, pulmonary hypertension, viral syndrome, among others. EKG shows normal sinus rhythm with possible RVH. Some ST depressions noted but appears chronic. No ST elevation. Patient wasgiven 2 doses of DuoNeb. Will obtain CTA of the chest, chemistry, CBC, pro BNP, influenza, VBG, and consider steroids as well as blood culture. On re-evaluation, SpO2 remained between 92-95% on BiPAP. Tolerating BiPAP well. Will continue to re-evaluate and adjust BiPAP setting as needed. Please see ED course for rest of the documentation. Dispo pending ED evaluation. Assessment and Plan Care is significantly affected by the following Social Determinants of Health: low income. I reviewed the following external records: outside ED records, inpatient records, prior outpatient labs, primary care records, office records and prior outpatient radiology tests. ED Course as of 10/31/23 0645 Mon Oct 30, [id number] Patient persistently hypoxic on 4 L oxygen with SpO2 between 93-94%. will place her on OxyMask 2203 My personal interpretation of the EKGs normal sinus rhythm with signs of RVH. QTC 481 MS. SomeT-wave inversions noted. No obvious ST elevation. 2210 Bedside ultrasound shows biventricular enlargement. No obvious pericardial effusion. No significant B-lines on lung exams. 222 ATC contacted for TeleEM and CCOD consult 223 Consulted with CCOD from [facility], Woody Art M.D., M.S. I appreciate his input. He recommends 125 mg of IV Solu-Medrol, Lasix 20 mg, Rocephin, Zithromax. He will contact his team and assign bed. Patient will be admitted to MICU. Her SpO2 is 95% on BiPAP 12/6 FiO2 90% 224 My personal interpretation of the chest x-ray is negative for significant pleural effusion. There appears to be consolidation to the right mid lung. Radiologist read is pending. 2248 pH, Venous, POCT, B(!): 7.28 2248 pCO2, Venous, POCT, B(!): 74 2248 pO2, Venous, POCT, B: 19 2248 Lactate, POCT: 2.15 Respiratory acidosis. Currently on respiratory rate of 14 on BiPAP, will increase respiration to 16. 2249 DX Chest Portable 1 View IMPRESSION: Large masslike consolidation right perihilar region is grossly similar to 06/26/2022. No pneumothoraxor significant pleural effusion. No new consolidative opacity identified. 2256 Hemoglobin(!!): 20.2 2256 Hematocrit(!): 63.1 2256 Erythrocytes(!): 6.32 2256 MCV(!): 99.8 2256 RBC Distrib Width(!): 16.2 2256 Platelet Count(!): 78 2256 Leukocytes: 4.2 Significantly elevated hemoglobin compared to baseline. May be related to chronic hypoxemia. Thrombocytopenia compared to baseline. No leukocytosis. 225 INR: 1.1 2256 Prothrombin Time, P(!): 13.1 Noted 225 Lactate: 2.2 Within normal limits. 230 Patient declined blood culture draw citing she has poor veins and it is uncomfortable. Discussed with her the importance of obtaining a blood culture but she declined and would like to do it at [facility] in [place]. 2305 CTA chest was ordered but patient was unstable to go to CT due to persistent hypoxia. EMS enroute to transport patient. Will defer CTA chest at this time until patient gets to [facility]. 2308 BUN (Blood Urea Nitrogen), P(!): 22 2308 Bicarbonate, P(!): 32 2308 Chloride, P(!): 93 Elevated bicarbonate and BUN. Otherwise the rest of chemistry unremarkable 2308 Troponin T, Baseline, 5th gen: 10 Within normal limits 2308 SARS CoV-2, PCR, Rapid, V: Undetected Negative 2316 EMS arrived and transporting patient. With SpO2 94% on BiPAP 02/04, FiO2 75% and RR 16. Patient tolerating BiPAP well. 2321 NT-Pro BNP(!): 1566 Elevated compared to baseline. May be related to heart failure/Pulmonary edema Final Diagnoses: as of 10/31/23 0645 Acute And Chronic Respiratory Failure With Hypoxia (HCC) Chronic Obstructive Pulmonary Disease Exacerbation (HCC) Acute Respiratory Failure With Hypercapnia (HCC) The following tests were considered but ultimately not performed: CTA chest. My ECG interpretation is documented in ED Course. My Plain Films interpretation is documented in ED Course. I discussed the management of the patient with: Critical Care. Serjio Gonsalves APRN, C.N.P., D.N.P., M.S.N. 10/30/23 7797 documented in this encounter Plan of Treatment Upcoming Encounters Date Type Department Care Team (Latest Contact Info) Description 11/08/2023 11:30 AM CDT Clinical Communication Virtual Review in [place], [place] [address] [place] [phone] 11/15/2023 9:40 AM CDT Appointment Department of Laboratory Medicine and Pathology, [facility], in [place], [place] [address] [place] [phone] Lubna Mcmillan M.D. [address] [place] [phone] 11/15/2023 10:10 AM CDT Appointment Department of Cardiovascular Diseases in [place], [place] [address] [place] [phone] Lubna Mcmillan M.D. [address] [place] [phone] Discharge Disposition: Home or Self Care 11/15/2023 1:00 PM CDT Appointment Department of Cardiac Rehabilitation in [place], [place] [address] [place] [phone] Lubna Mcmillan M.D. [address] [place] [phone] 11/15/2023 3:00 PM CDT Office Visit Department of Cardiovascular Medicine in [place], [place] [address] [place] [phone] Lubna Mcmillan M.D. [address] [place] [phone] 11/17/2023 2:00 PM CDT Comprehensive Visit Department of Family Medicine, [facility], in [address] [phone] Ro Norton APRN, C.N.P., D.N.P. [address] [place] [phone] 11/21/2023 11:00 AM CDT Office Visit Department of Family Medicine, [facility], in [address] [phone] Ro Norton APRN, C.N.PRaffy, D.N.P. [address] [phone] documented as of this encounter Procedures Procedure Name Priority Date/Time Associated Diagnosis Comments CRITICAL CARE Routine 10/30/2023 11:19 PM CDT DX CHEST PORTABLE 1 VIEW RAD - Semiurgent (Fast; most ED patients; some inpatients) 10/30/2023 10:30 PM CDT LACTATE FOR SEPSIS WITH REFLEX STAT 10/30/2023 10:28 PM CDT TROPONIN T, BASELINE, 5TH GEN, P STAT 10/30/2023 10:28 PM CDT VBG WITH LACTATE, POCT, B STAT 10/30/2023 10:26 PM CDT NT-PRO B-TYPE NATRIURETIC PEPTIDE (BNP), S STAT 10/30/2023 10:26 PM CDT PROTHROMBIN TIME (PT), P STAT 10/30/2023 10:26 PM CDT CBC WITH DIFFERENTIAL, B STAT 10/30/2023 10:26 PM CDT BASIC METABOLIC PANEL, S/P STAT 10/30/2023 10:26 PM CDT SARS CORONAVIRUS 2, PCR RAPID, V STAT 10/30/2023 9:50 PM CDT INFLUENZA A, B, RSV, PCR, POCT STAT 10/30/2023 9:50 PM CDT ECG STAT 10/30/2023 9:43 PM CDT documented in this encounter Results * Critical Care (10/30/2023 11:19 PM CDT) Narrative Serjio Gonsalves APRN, C.N.P., D.N.P., M.S.N. - 10/30/2023 11:19 PM CDT Serjio Gonsalves APRN, C.NDean, MileNDean, M.S.N. ? 10/30/2023 11:20 PM Critical Care Performed by: Serjio Gonsalves APRN, Mikala, MileN.Kirsty, M.S.N. Authorized by: Serjio Gonsalves APRN, C.N.P., MileNDean, M.S.N. ?? Critical care provider statement: Critical [...] specialty: no ?? Serjio Gonsalves APRN, C.N.P., MileNDean, M.S.N . PROCEDURE/MINOR SURGICAL ORDERABLES * DX [...] newconsolidative opacity identified. Serjio Gonsalves APRN, C.N.P., Jose., M.S.N . IMG DIAGNOSTIC IMAGING PROCEDURES * Troponin T, Baseline with 2 Hour/6 Hour Reflex Biomarker Panel (10/30/2023 10:28 PM CDT) Troponin T, Baseline, 5th gen 10 <=10 ng/L 10/30/2023 11:07 PM CDT CNFL Blood (Blood, Venous) 10/30/2023 10:28 PM CDT 10/30/2023 10:52 PM CDT Serjio Gonsalves APRN, C.N.P., MileNRaffyP., M.S.N . LAB BLOOD TROPONIN [facility] [address] [place] [address], [facility] CNFL [facility] [place] [address] * Lactate for Sepsis with Reflex (10/30/2023 10:28 PM CDT) Lactate, P 2.2 0.5 - 2.2 mmol/L 10/30/2023 10:55 PM CDT CNFL Blood (Blood, Venous) 10/30/2023 10:28 PM CDT 10/30/2023 10:40 PM CDT Serjio Gonsalves APRN, C.N.P., MileN.P., M.S.N . LAB BLOOD NON ADD-ON [facility] [address] [place] [address], [address] [address] * (ABNORMAL) Venous Blood Gas with Lactate, POCT, B (10/30/2023 10:26 PM CDT) [facility] pH, Venous, POCT, B 7.28(L) 7.32 - [...] POCT ORDERABLES - DEVICE Performing Organization Address [facility]/ZIP Co de Phone Number [facility] [address] [place] [phone], [facility] [address] [address] * (ABNORMAL) Prothrombin Time (PT) (10/30/2023 10:26 PM CDT) Prothrombin Time, P 13.1(H) 9.4 - 12.5 sec 10/30/2023 10:53 PM CDT CNFL INR 1.1 0.9 - 1.1 10/30/2023 10:53 PM CDT CNFL Comment: ----ADDITIONAL INFORMATION---- Standard intensity warfarin therapeutic range: 2.0 to 3.0 ?? High intensity warfarin therapeutic range: 2.5 to 3.5 Blood (Blood, Venous) 10/30/2023 10:26 PM CDT 10/30/2023 10:50 PM CDT Bolivar Bradford APRN.NRaffyPRaffy, D.N.P., M.S.N . LAB BLOOD ADD-ON [facility] [address] [place] [phone], [facility] in [address] [address] * (ABNORMAL) NT-Pro B-Type Natriuretic Peptide (BNP) (10/30/2023 10:26 PM CDT) NT-Pro BNP 1566(H) <=141 pg/mL 10/30/2023 11:17 PM CDT [facility] Comment: NT-proBNP values less than 300 pg/mL [...] 10:57 PM CDT Serjio Gonsalves APRN, C.N.P., RamonP., M.S.N . LAB BLOOD ADD-ON Performing Organization Address City/[facility] Co de Phone Number [facility] [address] [place] [phone], [facility] CNFL [facility] in [address] [address] * (ABNORMAL) Basic Metabolic Panel (10/30/2023 10:26 PM CDT) Potassium, P 4.8 3.6 - 5.2 mmol/L 10/30/2023 11:03 PM CDT CNFL Sodium, P 136 135 - 145 mmol/L 10/30/2023 11:03 PM CDT CNFL Chloride, P 93(L) 98 - 107 mmol/L 10/30/2023 11:03 PM CDT CNFL Bicarbonate, P 32(H) 22 - 29 mmol/L 10/30/2023 11:03 PM CDT CNFL Anion Gap, P 11 7 - 15 10/30/2023 11:03 PM CDT CNFL BUN (Blood Urea Nitrogen), P 22(H) 6 - 21 mg/dL 10/30/2023 11:03 PM CDT CNFL Creatinine 0.78 0.59 - 1.04 mg/dL 10/30/2023 11:03 PM CDT CNFL Estimated GFR (eGFR) >90 >=60 mL/min/BSA 10/30/2023 11:03 PM CDT CNFL Comment: Estimated GFR calculated using the 2020 CKD_EPI creatinine equation. Calcium, Total, P 9.8 8.6 - 10.0 mg/dL 10/30/2023 11:03 PM CDT CNFL Glucose, P 99 70 - 140 mg/dL 10/30/2023 11:03 PM CDT CNFL Blood (Blood, Venous) 10/30/2023 10:26 PM CDT 10/30/2023 10:51 PM CDT Serjio Gonsalves APRN, C.N.P., Katelynn.N.P., M.S.N . LAB BLOOD ADD-ON [facility] [address] [place] [phone], [facility] CNFL [facility] in [address] [address] * (ABNORMAL) CBC with Differential, Blood (10/30/2023 10:26 PM CDT) Hemoglobin 20.2(CH) 11.6 - 15.0 g/dL 10/30/2023 10:49 PM CDT CNFL Hematocrit 63.1(H) 35.5 - 44.9 % 10/30/2023 10:49 PM CDT CNFL Erythrocytes 6.32(H) 3.92 - 5.13 x10(12)/L 10/30/2023 10:49 PM CDT CNFL MCV 99.8(H) 78.2 - 97.9 fL 10/30/2023 10:49 PM CDT CNFL RBC Distrib Width 16.2(H) 12.2 - 16.1 % 10/30/2023 10:49 PM CDT CNFL Platelet Count 78(L) 157 - 371 x10(9)/L 10/30/2023 10:49 PM CDT CNFL Leukocytes 4.2 3.4 - 9.6 x10(9)/L 10/30/2023 10:49 PM CDT CNFL Neutrophils 2.83 1.56 - 6.45 x10(9)/L 10/30/2023 10:49 PM CDT CNFL Lymphocytes 0.97 0.95 - 3.07 x10(9)/L 10/30/2023 10:49 PM CDT CNFL Monocytes 0.36 0.26 - 0.81 x10(9)/L 10/30/2023 10:49 PM CDT CNFL Eosinophils <0.04 0.03 - 0.48 x10(9)/L 10/30/2023 10:49 PM CDT CNFL Basophils <0.04 0.01 - 0.08 x10(9)/L 10/30/2023 10:49 PM CDT CNFL Blood (Blood, Venous) 10/30/2023 10:26 PM CDT 10/30/2023 10:33 PM CDT Serjio Gonsalves APRN, C.N.P., RamonP., M.S.N . LAB BLOOD ADD-ON Performing Organization Address City/[facility] Co de Phone Number [facility] [address] [place] [phone], [facility] in [address] [address] * Influenza A/B and RSV, PCR, Point of Care (10/30/2023 9:50 PM CDT) Influenza A, POCT Negative Negative 10/30/2023 11:55 PM CDT CNFL Influenza B, POCT Negative Negative 10/30/2023 11:55 PM CDT CNFL Resp Syncytial Virus, POCT Negative Negative 10/30/2023 11:55 PM CDT CNFL Swab (Nasopharynx) 10/30/2023 9:50 PM CDT 10/30/2023 10:43 PM CDT Serjio Gonsalves APRN, C.N.P., Katelynn.N.P., M.S.N . LAB POCT ORDERABLES - DEVICE Performing Organization Address [facility] Co de Phone Number [facility] [address] [place] [address], [facility] in [address] [address] * SARS Coronavirus 2, PCR Rapid Symptomatic (10/30/2023 9:50 PM CDT) SARS CoV-2, PCR, Rapid, V Undetected Undetected 10/30/2023 10:46 PM CDT CNFL SARS Coronavirus 2, Source, Rapid Swab, Nasopharynx 10/30/2023 10:43 PM CDT CNFL Swab (Nasopharynx) 10/30/2023 9:50 PM CDT 10/30/2023 10:43 PM CDT Serjio Gonsalves APRN, C.N.P., MileN.P., M.S.N . LAB MICROBIOLOGY - GENERAL ORDERABLES Performing Organization Address City/[facility] Co de Phone Number [facility] [address] [place] [phone], [place] CNFL [facility] in [address] [address] * ECG 12 Lead (10/30/2023 9:43 PM CDT) Ventricular Rate ECG/Min 74 BPM MUSE VT Interval 146 ms MUSE QRSD Interval 120 ms MUSE QT Interval 434 ms MUSE QTC Interval 481 ms MUSE P [place] 70 degrees MUSE R [place] 108 degrees MUSE T Wave [place] 63 degrees MUSE 10/30/2023 9:43 PM CDT [...] axis has changed Reviewed by PRAKASH Vargas Serjio Gonsalves APRN, C.N.P., Katelynn.N.P., M.S.N . ECG ORDERABLES Performing Organization Address [facility]/ZIP Co de Phone Number MUSE NA documented in this encounter Visit Diagnoses Diagnosis Acute And Chronic Respiratory Failure With Hypoxia (HCC)- Primary Chronic Obstructive Pulmonary Disease Exacerbation (HCC) Acute Respiratory Failure With Hypercapnia (HCC) documented in this encounter Administered Medications Inactive Administered Medications - up to 3 most recent administrations Medication Order MAR Action Action Date Dose Rate Site azithromycin 500 mg in NaCl 0.9% IVPB (Zithromax) 500 mg, intravenous, at 250 mL/hr, Administer over 60 Minutes, Once, On Mon10/30/23 at 2236, For 1 dose, Use adapter to dilute and transfer medication into diluent bag, Drug Monitoring Program: Pharmacist to adjust medication dosing based on indication and drug clearance factors., Indications: Respiratory tract infection, community acquired New Bag 10/30/2023 10:57 PM CDT 500 mg 250 mL/hr cefTRIAXone injection 2 g (Rocephin) 2 g, intravenous, Once, On Mon10/30/23 at 2236, For 1 dose, If needed, reconstitute vial per package insert instructions. See IVAG for administration guidelines., Drug Monitoring Program: Pharmacist to adjust medication dosing based on indication and drug clearance factors., Indications: Respiratory tract infection, community acquired Given 10/30/2023 10:56 PM CDT 2 g furosemide injection 40 mg (Lasix) 40 mg, intravenous, Once, On Mon10/30/23 at 2235, For 1 dose, Adults: Doses less than 120 mg: IV push over 20 mg/minute. Doses 120 mg or greater: IVPB at 4 mg/minute. Peds/Neonates: Doses less than 120 mg over 0.5 mg/kg/minute. Doses 120 mg or greater: IVPB at 4 mg/minute. Given 10/30/2023 10:57 PM CDT 40 mg iopromide 370 mg iodine/mL injection 80 mL (Ultravist) 80 mL, intravenous, Once in imaging, contrast, Starting on Mon10/30/23 at 2214, For 1 dose ipratropium-albuteroL 0.5-2.5 mg/3 mL nebulizer solution 3 mL (DuoNeb) 3 mL, nebulization, Once, On Mon10/30/23 at 2156, For 1 dose Given 10/30/2023 10:03 PM CDT 3 mL ipratropium-albuteroL 0.5-2.5 mg/3 mL nebulizer solution 3 mL (DuoNeb) 3 mL, nebulization, Once, On Mon10/30/23 at 2156, For 1 dose Given 10/30/2023 10:00 PM CDT 3 mL methylPREDNISolone sod succinate (PF) injection 125 mg (SOLU-MedroL) 125 mg, intravenous, Once, On Mon10/30/23 at 2235, For 1 dose, Activate vial to a final concentration of 62.5 mg/mL Given 10/30/2023 10:57 PM CDT 125 mg sodium chloride 0.9 % injection 10 mL 10 mL, intravenous, As needed, line care, Starting on Mon10/30/23 at 2145, Peripheral Intravenous Catheter and Rapid Infusion Catheter, prior to blood sampling, post blood transfusion or post blood sampling sodium chloride 0.9 % injection 3 mL 3 mL, intravenous, As needed, line care, Starting on Mon10/30/23 at 2145, Prior to and following infusion and between multiple consecutive infusions: sodium chloride 0.9 % injection sodium chloride 0.9 % injection 3 mL 3 mL, intravenous, Every 12 hours scheduled, First dose on Mon10/31/23 at 0900, Peripheral Intravenous Catheter and Rapid Infusion Catheter, when no infusion to maintain patency documented in this encounter Active and Recently Administered Medications Times are shown in CDT. Scheduled Medication Order 10/29/2023 10/30/2023 10/31/2023 azithromycin 500 mg in NaCl 0.9% IVPB (Zithromax) (COMPLETED) 500 mg, intravenous, at 250 mL/hr, Administer over 60 Minutes, Once, On Mon10/30/23 at 2236, For 1 dose, Use adapter to dilute and transfer medication into diluent bag, Drug Monitoring Program: Pharmacist to adjust medication dosing based on indication and drug clearance factors., Indications: Respiratory tract infection, community acquired 2256 (New Bag - Provider: Tapan De Los Santos R.N.)[id number] (Continue to External Healthcare Facility - Provider: Tapan De Los Santos R.N.) cefTRIAXone injection 2 g (Rocephin) (COMPLETED) 2 g, intravenous, Once, On Mon10/30/23 at 2236, For 1 dose, If needed, reconstitute vial per package insert instructions. See IVAG for administration guidelines., Drug Monitoring Program: Pharmacist to adjust medication dosing based on indication and drug clearance factors., Indications: Respiratory tract infection, community acquired 2255 (Given - Provider: Tapan De Los Santos R.N.) furosemide injection 40 mg (Lasix) (COMPLETED) 40 mg, intravenous, Once, On Mon10/30/23 at 2235, For 1 dose, Adults: Doses less than 120 mg: IV push over 20 mg/minute. Doses 120 mg or greater: IVPB at 4 mg/minute. Peds/Neonates: Doses less than 120 mg over 0.5 mg/kg/minute. Doses 120 mg or greater: IVPB at 4 mg/minute. 2256 (Given - Provider: Tapan De Los Santos R.N.) ipratropium-albuteroL 0.5-2.5 mg/3 mL nebulizer solution 3 mL (DuoNeb) (COMPLETED) 3 mL, nebulization, Once, On Mon10/30/23 at 2156, For 1 dose 2202 (Given - Provider: Tapan De Los Santos R.N.) ipratropium-albuteroL 0.5-2.5 mg/3 mL nebulizer solution 3 mL (DuoNeb) (COMPLETED) 3 mL, nebulization, Once, On Mon10/30/23 at 2156, For 1 dose 2199 (Given - Provider: Tapan De Los Santos R.N.) methylPREDNISolone sod succinate (PF) injection 125 mg (SOLU-MedroL) (COMPLETED) 125 mg, intravenous, Once, On Mon10/30/23 at 2235, For 1 dose, Activate vial to a final concentration of 62.5 mg/mL 2256 (Given - Provider: Tapan De Los Santos R.N.) NaCl 0.9 % bolus 80 mL 80 mL, intravenous, at 80 mL/hr, Administer over 1 Hours, Once, On Mon10/30/23 at 2216, For 1 dose 2256 (Not Given - Provider: Tapan De Los Santos R.N. - Reason: Discontinued) sodium chloride 0.9 % injection 10 mL 10 mL, intravenous, Once, On Mon10/30/23 at 2216, For 1 dose 2257 (Not Given - Provider: Tapan De Los Santos R.N. - Reason: Discontinued) sodium chloride 0.9 % injection 3 mL 3 mL, intravenous, Every 12 hours scheduled, First dose on Mon10/31/23 at 0900, Peripheral Intravenous Catheter and Rapid Infusion Catheter, when no infusion to maintain patency PRN Medication Order 10/29/2023 10/30/2023 10/31/2023 iopromide 370 mg iodine/mL injection 80 mL (Ultravist) 80 mL, intravenous, Once in imaging, contrast, Starting on Mon10/30/23 at 2214, For 1 dose sodium chloride 0.9 % injection 10 mL 10 mL, intravenous, As needed, line care, Starting on Mon10/30/23 at 2145, Peripheral Intravenous Catheter and Rapid Infusion Catheter, prior to blood sampling, post blood transfusion or post blood sampling sodium chloride 0.9 % injection 3 mL 3 mL, intravenous, As needed, line care, Starting on Mon10/30/23 at 2145, Prior to and following infusion and between multiple consecutive infusions: sodium chloride 0.9 % injection documented in this encounter Additional Health Concerns Infection Onset Date Last Indicated Resolved Time COVID19 Pending 10/30/2023 10/30/2023 10/30/2023 1 1:05 PM CDT documented as of this encounter Care Teams Software Asset Manager Relationship Specialty Start Date End Date Ro Norton APRN, C.N.P., D.N.P. [address] [phone] PCP - General Family Medicine 05/07/19 documented as of this encounter
--- OUTSIDE RECORDS SUMMARY | 2023-11-02 03:30 | XMS_ITS | Encounter Summary ---
Author Organization [facility] Address [address] [place] [address] Care Team Providers Care Mailer Apprentice Name Role Phone Ro Norton APRN, C.N.P., D.N.P. Primary Ca re Provider Encounter Details Date Type Department Care Team (Latest Contact Info) Description 10/30/2023 Intake [facility] Social History Tobacco Use Types Packs/Day Years Used Date Smoking Tobacco: Every Day Cigarettes 0.5 30 Smokeless Tobacco: Never Comments:4-5 cigarettes a da y Alcohol Use Standard Drinks/Week Comments Not Currently 0 (1 standard drink = 0.6 oz pur e alcohol) ocassionally [facility] Utilities Answer Date Recorded In the past 12 months has e electric, gas, oil, or water [email or web address] threatened to shut off services in your [...] often do you attend chur ch or protestant services? Never 03/25/2022 Do you belong to any clubs o r organizations such as yarsani groups, unions, fraternal [...] Date Recorded PHQ-2 Score 2 07/31/2023 [facility] - Occupational Stress Questionnaire Answer Date [...] your living situation today? I have a [facility] place to live 11/01/2023 Education Answer [...] AM CDT Clinical Communication Virtual Review in [place], [place] [address] [place] [phone] 11/15/2023 9:40 AM CDT Appointment Department of Laboratory Medicine and Pathology, [facility], in [place], [place] [address] [place] [phone] Lubna Mcmillan M.D. [address] [place] [phone] 11/15/2023 10:10 AM CDT Appointment Department of Cardiovascular Diseases in [place], [place] [address] [place] [phone] Lubna Mcmillan M.D. [address] [place] [phone] Discharge Disposition: Home or Self Care 11/15/2023 1:00 PM CDT Appointment Department of Cardiac Rehabilitation in [place], [place] [address] [place] [phone] Lubna Mcmillan M.D. [address] [place] [address] 11/15/2023 3:00 PM CDT Office Visit Department of Cardiovascular Medicine in [place], [place] [address] [place] [phone] Lubna Mcmillan M.D. [address] [place] [phone] 11/17/2023 2:00 PM CDT Comprehensive Visit Department of Family Medicine, [facility], in [address] [phone] oR Norton APRN, C.N.P., D.N.P. [address] [place] [phone] 11/21/2023 11:00 AM CDT Office Visit Department of Family Medicine, [facility], in [address] [phone] Ro Norton APRN, C.N.P., D.N.P. [address] [place] [phone] documented as of this encounter Visit Diagnoses Not on filedocumented in this encounter Additional Health Concerns Infection Onset Date Last Indicated Resolved Time COVID19 Pending 10/30/2023 10/30/2023 10/30/2023 1 1:05 PM CDT COVID19 Pending 10/31/2023 10/31/2023 10/31/2023 3 :31 AM CDT documented as of this encounter Care Teams Mailer Apprentice Relationship Specialty Start Date End Date Ro Norton APRN, C.N.P., D.N.P. [address] [phone] PCP - General Family Medicine 05/07/19 documented as of this encounter
--- OUTSIDE RECORDS SUMMARY | 2023-11-02 03:31 | XMS_ITS | Encounter Summary ---
Author Organization [facility] Address [address] [place] [address] Care Team Providers Care Gas Pumping Station Operator Name Role Phone Ro Norton APRN, C.N.P., D.N.P. Primary Ca re Provider Reason for Visit * Reason Comments tooth infection Encounter Details Date Type Department Care Team (Late st Contact Info) Description 09/07/2023 1:30 PM CDT Telemedicine Department of Family Medicine, [facility], in [place], [place] [address] [place] [phone] Valentin Andrea M.D. [address] [place] [phone] Pain Teeth (Primary Dx) Discharge Disposition: Home or Self Care Social History Tobacco Use Types Packs/Day Years Used Date Smoking Tobacco: Every Day Cigarettes 0.5 30 Smokeless Tobacco: Never Comments:4-5 cigarettes a da y Alcohol Use Standard Drinks/Week Comments Not Currently 0 (1 standard drink = 0.6 oz pur e alcohol) ocassionally [facility] Utilities Answer Date Recorded In the past 12 months has e [email or web address], gas, oil, or water [employer] threatened to shut off services in your [...] How often do you attend chur or yazdanism services? Never 03/25/2022 Do you belong to any clubs o r organizations such as jew groups, unions, fraternal [...] Answer Date Recorded PHQ-2 Score 2 07/31/2023 [facility] [place] of Occupat ional Health - Occupational Stress [...] your living situation today? I have a [facility] place to live 06/06/2023 Education [...] AM CDT Clinical Communication Virtual Review in [place], [place] 200 [place] [address] 11/15/2023 9:40 AM CDT Appointment Department of Laboratory Medicine and Pathology, [facility] in [address] [phone] Lubna Mcmillan M.D. [address] [place] [phone] 11/15/2023 10:10 AM CDT Appointment Department of Cardiovascular Diseases in [address] [phone] Lubna Mcmillan M.D. [address] [place] [phone] Discharge Disposition: Home or Self Care 11/15/2023 1:00 PM CDT Appointment Department of Cardiac Rehabilitation in [address] [phone] Lubna Mcmillan M.D. [address] [place] [address] 11/15/2023 3:00 PM CDT Office Visit Department of Cardiovascular Medicine in [place], [place] [address] [place] [address] Lubna Mcmillan M.D. [address] [place] [address] 11/17/2023 2:00 PM CDT Comprehensive Visit Department of Family Medicine, [facility], in [address] [phone] Ro Norton APRN, C.N.P., D.N.P. [address] [place] [phone] 11/21/2023 11:00 AM CDT Office Visit Department of Family Medicine, [facility], in [address] [phone] Ro Norton APRN, C.N.P., D.N.P. [address] [place] [phone] documented as of this encounter Visit Diagnoses Diagnosis Pain Teeth- Primary documented in this encounter Care Teams Gas Pumping Station Operator Relationship Specialty Start Date End Date Ro Norton APRN, C.N.P., D.N.P. [address] [place] [phone] PCP - General Family Medicine 05/07/19 documented as of this encounter
--- OUTSIDE RECORDS SUMMARY | 2023-11-02 03:31 | XMS_ITS | Encounter Summary ---
Author Organization [facility] Address [address] [place] [address] Care Team Providers Care Rouge Sifter And Miller Name Role Phone Ro Norton APRN, C.N.P., D.N.P. Primary Ca re Provider Encounter Details Date Type Department Care Team (Late st Contact Info) Description 08/22/2023 Orders Only [facility] [address] [phone] Karine Coles, Pharm.D., R.Ph. [address] [place] [phone] Social History Tobacco Use Types Packs/Day Years Used Date Smoking Tobacco: Every Day Cigarettes 0.5 30 Smokeless Tobacco: Never Comments:4-5 cigarettes a da y Alcohol Use Standard Drinks/Week Comments Not Currently 0 (1 standard drink = 0.6 oz pur e alcohol) ocassionally [facility] Utilities Answer Date Recorded In the [...] How often do you attend chur or confucianism services? Never 03/25/2022 Do you belong to any clubs o r organizations such as anabaptism groups, unions, fraternal [...] Answer Date Recorded PHQ-2 Score 2 07/31/2023 [facility] [place] of Occupat ional Health - Occupational Stress [...] your living situation today? I have a [facility] place to live 06/06/2023 Education Answer [...] AM CDT Clinical Communication Virtual Review in [place], [place] [address] [place] [address] 11/15/2023 9:40 AM CDT Appointment Department of Laboratory Medicine and Pathology, [facility], in [place], [place] [address] [place] [phone] Lubna Mcmillan M.D. [address] [place] [phone] 11/15/2023 10:10 AM CDT Appointment Department of Cardiovascular Diseases in [place], [place] [address] [place] [phone] Lubna Mcmillan M.D. [address] [place] [phone] Discharge Disposition: Home or Self Care 11/15/2023 1:00 PM CDT Appointment Department of Cardiac Rehabilitation in [place], [place] [address] [place] [phone] Lubna Mcmillan M.D. [address] [place] [phone] 11/15/2023 3:00 PM CDT Office Visit Department of Cardiovascular Medicine in [place], [place] [address] [place] [phone] Lubna Mcmillan M.D. [address] [place] [phone] 11/17/2023 2:00 PM CDT Comprehensive Visit Department of Family Medicine, [facility], in [address] [phone] Ro Norton APRN, C.N.P., D.N.P. [address] [place] [phone] 11/21/2023 11:00 AM CDT Office Visit Department of Family Medicine, [facility], in [address] [phone] Ro Norton APRN, C.N.P., D.N.P. [address] [place] [phone] documented as of this encounter Visit Diagnoses Not on filedocumented in this encounter Care Teams Rouge Sifter And Miller Relationship Specialty Start Date End Date Ro Norton APRN, C.N.P., D.N.P. [address] [phone] PCP - General Family Medicine 05/07/19 documented as of this encounter
--- OUTSIDE RECORDS SUMMARY | 2023-11-02 03:31 | XMS_ITS | Encounter Summary ---
Author Organization [facility] Address [address] [place] [address] Care Team Providers Care Crematory Attendant Name Role Phone Ro Norton APRN, C.N.P., [...] PM CDT Telemedicine Department of Family Medicine, [facility], in [address] [phone] Corina Nur M.D. [address] [place] [phone] Chronic Obstructive Pulmonary Disease Exacerbation (HCC) Discharge [...] = 0.6 oz pur e alcohol) ocassionally [facility] Utilities Answer Date Recorded In the past 12 months has [employer], gas, oil, or water company threatened to [...] How often do you attend chur or druze services? Never 03/25/2022 Do you belong to any clubs o r organizations such as pentecostalism groups, unions, fraternal [...] Answer Date Recorded PHQ-2 Score 2 07/31/2023 [facility] [place] of Occupat ional Health - Occupational Stress [...] audio/video technology by Corina Nur M.D. in [facility] to the patient in the patient's home. [...] AM CDT Clinical Communication Virtual Review in [place], [place] 200 [place] [address] 11/15/2023 9:40 AM CDT Appointment Department of Laboratory Medicine and Pathology, [facility] in [place], [place] [address] [place] [phone] Lubna Mcmillan M.D. [address] [place] [phone] 11/15/2023 10:10 AM CDT Appointment Department of Cardiovascular Diseases in [place], [place] [address] [place] [phone] Lubna Mcmillan M.D. [address] [place] [phone] Discharge Disposition: Home or Self Care 11/15/2023 1:00 PM CDT Appointment Department of Cardiac Rehabilitation in [place], [place] [address] [place] [phone] Lubna Mcmillan M.D. [address] [place] [phone] 11/15/2023 3:00 PM CDT Office Visit Department of Cardiovascular Medicine in [place], [place] [address] [place] [phone] Lubna Mcmillan M.D. [address] [place] [phone] 11/17/2023 2:00 PM CDT Comprehensive Visit Department of Family Medicine, [facility], in [address] [phone] Ro Norton APRN, C.NDean, D.N.P. [address] [place] [phone] 11/21/2023 11:00 AM CDT Office Visit Department of Family Medicine, [facility], in [address] [place] [phone] Ro Norton APRN, C.NDean, D.N.P. [address] [place] [address], [place] [phone] documented as of this encounter Visit Diagnoses Diagnosis Chronic Obstructive Pulmonary Disease Exacerbation (HCC) documented in this encounter Care Teams Crematory Attendant Relationship Specialty Start Date End Date Ro Norton APRN, C.NLisandro., D.N.P. [address] [place] [phone] PCP - General Family Medicine 05/07/19 documented as of this encounter
--- OUTSIDE RECORDS SUMMARY | 2023-11-02 03:31 | XMS_ITS | Encounter Summary ---
Author Organization [facility] Address [address] [place] [phone] Care Team Providers Care Customer Technical Services Manager Name Role Phone Ro Norton APRN, C.N.P., D.N.P. Primary Ca re Provider Reason for Visit * Reason Comments Med Refill Encounter Details Date Type Department Care Team (Late st Contact Info) Description 08/21/2023 Refill Department of Cardiovascular Medicine in [place], [place] [address] [place] [phone] Lubna Mcmillan M.D. [address] [place] [phone] Med Refill Social History Tobacco Use Types Packs/Day Years Used Date Smoking Tobacco: Every Day Cigarettes 0.5 30 Smokeless Tobacco: Never Comments:4-5 cigarettes a da y Alcohol Use Standard Drinks/Week Comments Not Currently 0 (1 standard drink = 0.6 oz pur e alcohol) ocassionally [facility] Utilities Answer Date Recorded In [...] How often do you attend chur or adventism services? Never 03/25/2022 Do you belong to [...] Answer Date Recorded PHQ-2 Score 2 07/31/2023 [facility] [employer] of Occupat ional Health - Occupational Stress [...] your living situation today? I have a [facility] place to live 06/06/2023 [...] Receipt confirmed by pharmacy (04/21/2023 4:04 PM DIETETIC TECH) No prior authorization was found for this prescription. Found prior authorization for another prescription for the same medication: Approved Pharmacy [facility] [place] [place] - [address] [facility] documented in this encounter Plan of Treatment Upcoming Encounters Date Type Department Care Team (Latest Contact Info) Description 11/08/2023 11:30 AM CDT Clinical Communication Virtual Review in [place], [place] 200 [place] [phone] 11/15/2023 9:40 AM CDT Appointment Department of Laboratory Medicine and Pathology, [facility] in [address] [phone] Lubna Mcmillan M.D. [address] [place] [phone] 11/15/2023 10:10 AM CDT Appointment Department of Cardiovascular Diseases in [address] [phone] Lubna Mcmillan M.D. [address] [place] [phone] Discharge Disposition: Home or Self Care 11/15/2023 1:00 PM CDT Appointment Department of Cardiac Rehabilitation in [address] [phone] Lubna Mcmillan M.D. [address] [place] [phone] 11/15/2023 3:00 PM CDT Office Visit Department of Cardiovascular Medicine in [address] [phone] Lubna Mcmillan M.D. [address] [place] [phone] 11/17/2023 2:00 PM CDT Comprehensive Visit Department of Family [facility], [facility], in [address] [phone] Ro Norton APRN, C.N.P., D.N.P. [address] [place] [phone] 11/21/2023 11:00 AM CDT Office Visit Department of Family [facility], [facility], in [address] [phone] Ro Norton APRN, Bol[place]ar.N.P., D.N.P. [address] [place] [phone] documented as of this encounter Visit Diagnoses Not on filedocumented in this encounter Care Teams Customer Technical Services Manager Relationship Specialty Start Date End Date Ro Norton APRN C.N.P., D.N.P. [address] [place] [phone] PCP - General Family Medicine 05/07/19 documented as of this encounter
--- OUTSIDE RECORDS SUMMARY | 2023-11-02 03:31 | XMS_ITS | Encounter Summary ---
Author Organization [facility] Address [address] [place] [address] Care Team Providers Care Sourcing Consultant Name Role Phone Ro Norton APRN, C.N.P., D.N.P. Primary Ca re Provider Reason for Visit * Reason Comments Infection Encounter Details Date Type Department Care Team (Late st Contact Info) Description 08/14/2023 9:30 AM CDT Telemedicine Department of Family Medicine, [facility], in [place], [place] [address] [place] [phone] Tc Bee D.O. [address] [place] [phone] Pain Teeth (Primary Dx) Discharge Disposition: Home or Self Care Social History Tobacco Use Types Packs/Day Years Used Date Smoking Tobacco: Every Day Cigarettes 0.5 30 Smokeless Tobacco: Never Comments:4-5 cigarettes a da y Alcohol Use Standard Drinks/Week Comments Not Currently 0 (1 standard drink = 0.6 oz pur e alcohol) ocassionally [facility] Utilities Answer Date Recorded In the past 12 months has e [employer], gas, oil, or water [employer] threatened to shut off services in your [...] any clubs o r organizations such as yazidi groups, unions, fraternal [...] Answer Date Recorded PHQ-2 Score 2 07/31/2023 [facility] [place] of Occupat ional Health - Occupational Stress [...] your living situation today? I have a [facility] place to live 06/06/2023 Education Answer [...] at her home I am in the [facility]. HISTORY OF PRESENT ILLNESS Ms. Schulz Is [...] AM CDT Clinical Communication Virtual Review in [place], [place] [address] [place] [phone] 11/15/2023 9:40 AM CDT Appointment Department of Laboratory Medicine and Pathology, [facility], in [place], [place] [address] [place] [phone] Lubna Mcmillan M.D. [address] [place] [phone] 11/15/2023 10:10 AM CDT Appointment Department of Cardiovascular Diseases in [place], [place] [address] [place] [phone] Lubna Mcmillan M.D. [address] [place] [phone] Discharge Disposition: Home or Self Care 11/15/2023 1:00 PM CDT Appointment Department of Cardiac Rehabilitation in [place], [place] [address] [place] [phone] Lubna Mcmillan M.D. [address] [place] [phone] 11/15/2023 3:00 PM CDT Office Visit Department of Cardiovascular Medicine in [place], [place] [address] [place] [phone] Lubna Mcmillan M.D. [address] [place] [phone] 11/17/2023 2:00 PM CDT Comprehensive Visit Department of Family Medicine, [facility], in [address] [phone] Ro Norton APRN, C.N.P., D.N.P. [address] [place] [phone] 11/21/2023 11:00 AM CDT Office Visit Department of Family Medicine, [facility], in [address] [phone] Ro Norton APRN, C.N.P., D.N.P. [address] [place] [phone] documented as of this encounter Visit Diagnoses Diagnosis Pain Teeth- Primary documented in this encounter Care Teams Sourcing Consultant Relationship Specialty Start Date End Date Ro Norton APRN, C.N.P., D.N.P. [address] [place] [phone] PCP - General Family Medicine 05/07/19 documented as of this encounter
--- OUTSIDE RECORDS SUMMARY | 2023-11-02 03:31 | XMS_ITS | Encounter Summary ---
Author Organization [facility] Address [address] [place] [address] Care Team Providers Care Rubber Heel And Sole Press Tender Name Role Phone Ro Norton APRN, C.N.PRaffy, D.N.P. Primary Ca re Provider Reason for Referral * Medication Prior Authorization - Denied Specialty Diagnoses / Procedures Referred By Maria L t Referred To Contact Ro Norton APRN, C.N.P., D.N.P. [address] [place] [phone] Referral ID Status Reason Start Date Expiration Date Visits Re quested Visits Authorized [id number] Denied 1 1 Reason for Visit * Reason Comments Med Refill Encounter Details Date Type Department Care Team (Late st Contact Info) Description 08/25/2023 Refill Department of Family Medicine, [facility], in [address] [phone] Ro Norton APRN, Bolivar.N.P., D.N.P. [address] [place] [phone] Med Refill Social History Tobacco Use Types Packs/Day Years Used Date Smoking Tobacco: Every Day Cigarettes 0.5 30 Smokeless Tobacco: Never Comments:4-5 cigarettes a da y Alcohol Use Standard Drinks/Week Comments Not Currently 0 (1 standard drink = 0.6 oz pur e alcohol) ocassionally [facility] Utilities Answer Date Recorded In the past 12 months has th e [employer], gas, oil, or water company threatened to [...] often do you attend chur ch or restorationism services? Never 03/25/2022 Do you belong to [...] Date Recorded PHQ-2 Score 2 07/31/2023 [facility] [place] of Occupat ional Health - Occupational Stress [...] AM CDT Clinical Communication Virtual Review in [place], [place] [address] [place] [phone] 11/15/2023 9:40 AM CDT Appointment Department of Laboratory Medicine and Pathology, [facility] in [place], [place] [address] [place] [phone] Lubna Mcmillan M.D. [address] [place] [phone] 11/15/2023 10:10 AM CDT Appointment Department of Cardiovascular Diseases in [place], [place] [address] [place] [phone] Lubna Mcmillan M.D. [address] [place] [phone] Discharge Disposition: Home or Self Care 11/15/2023 1:00 PM CDT Appointment Department of Cardiac Rehabilitation in [place], [place] [address] [place] [phone] Lubna Mcmillan M.D. [address] [place] [phone] 11/15/2023 3:00 PM CDT Office Visit Department of Cardiovascular Medicine in [place], [place] [address] [place] [phone] Lubna Mcmillan M.D. [address] [place] [phone] 11/17/2023 2:00 PM CDT Comprehensive Visit Department of Family Medicine, [facility], in [address] [phone] Ro Norton APRN, C.NRaffyP., D.N.P. [address] [place] [address], [place] [phone] 11/21/2023 11:00 AM CDT Office Visit Department of Family Medicine, [facility], in [address] [place] [phone] Ro Norton APRN, C.N.Kirsty, D.N.P. [address] [place] [phone] documented as of this encounter Visit Diagnoses Not on filedocumented in this encounter Care Teams Rubber Heel And Sole Press Tender Relationship Specialty Start Date End Date Ro Norton APRN, C.N.Taylor., D.N.P. [address] [place] [phone] PCP - General Family Medicine 05/07/19 documented as of this encounter
--- OUTSIDE RECORDS SUMMARY | 2023-11-02 03:31 | XMS_ITS | Encounter Summary ---
Author Organization [facility] Address [address] [place] [address] Care Team Providers Care Hose Tender Name Role Phone Ro Norton APRN, C.N.P., D.N.P. Primary Ca re Provider Reason for Visit * Reason Comments Med Refill Encounter Details Date Type Department Care Team (Late st Contact Info) Description 07/23/2023 Refill Department of Family Medicine, [facility], in [address] [phone] Ro Norton APRN, C.N.P., D.N.P. [address] [place] [phone] Med Refill Social History Tobacco Use Types Packs/Day Years Used Date Smoking Tobacco: Every Day Cigarettes 0.5 30 Smokeless Tobacco: Never Comments:4-5 cigarettes a da y Alcohol Use Standard Drinks/Week Comments Not Currently 0 (1 standard drink = 0.6 oz pur e alcohol) ocassionally [facility] Utilities Answer Date Recorded In the past 12 months has e [employer], gas, oil, or water [employer] threatened to shut off services in your [...] How often do you attend chur or buddhism services? Never 03/25/2022 Do you belong to [...] Answer Date Recorded PHQ-2 Score 1 06/06/2023 [facility] [place] of Occupat ional Health - Occupational Stress [...] your living situation today? I have a [facility] place to live 06/06/2023 Education Answer [...] AM CDT Clinical Communication Virtual Review in [place], [place] [address] [place] [phone] 11/15/2023 9:40 AM CDT Appointment Department of Laboratory Medicine and Pathology, [facility], in [place], [place] [address] [place] [phone] Lubna Mcmillan M.D. [address] [place] [phone] 11/15/2023 10:10 AM CDT Appointment Department of Cardiovascular Diseases in [place], [place] [address] [place] [phone] Lubna Mcmillan M.D. [address] [place] [phone] Discharge Disposition: Home or Self Care 11/15/2023 1:00 PM CDT Appointment Department of Cardiac Rehabilitation in [place], [place] [address] [place] [phone] Luban Mcmillan M.D. [address] [place] [phone] 11/15/2023 3:00 PM CDT Office Visit Department of Cardiovascular Medicine in [place], [place] [address] [place] [phone] Lubna Mcmillan M.D. [address] [place] [phone] 11/17/2023 2:00 PM CDT Comprehensive Visit Department of Family Medicine, [facility], in [address] [phone] Ro Norton APRN, C.N.P., D.N.P. [address] [place] [phone] 11/21/2023 11:00 AM CDT Office Visit Department of Family Medicine, [facility], in [address] [phone] Ro Norton APRN, C.N.P., D.N.P. [address] [place] [address] [place] [phone] documented as of this encounter Visit Diagnoses Not on filedocumented in this encounter Care Teams Hose Tender Relationship Specialty Start Date End Date Ro Norton APRN C.N.P., D.N.P. [address] [phone] PCP - General Family Medicine 05/07/19 documented as of this encounter
--- NOTE | 2023-11-02 03:48 | ED.SOB ---
HPI - SOB/Dyspnea General Date Seen: 11/02/23 <Pj Nicole MD - Last Filed: 11/05/23 14:14> Chief Complaint: Shortness of Breath/Dyspnea <Pj Nicole MD - Last Filed: 11/05/23 14:14> Stated Complaint: copd <Pj Nicole MD - Last Filed: 11/05/23 14:14> Time Seen by Provider: 11/02/23 03:35 <Pj Nicole MD - Last Filed: 11/05/23 14:14> Source: patient <Pj Nicole MD - Last Filed: 11/05/23 14:14> Mode of arrival: EMS <Pj Nicole MD - Last Filed: 11/05/23 14:14> Limitations: no limitations <Pj Nicole MD - Last Filed: 11/05/23 14:14> History of Present Illness HPI Narrative: The patient is a 53-year-old female with severe COPD who is just discharged from [facility] few hours ago. She was post to have oxygen tanks delivered but did get home before [facility] closed. All she had a home were some small tanks and when her oxygen ran out she became progressively more short of breath. She is chronically hypoxic in the 75-85 range. He had to call EMS and they brought in because of her hypoxia. There is no plan for oxygen to be delivered in the morning. She is on antibiotics and steroids. She has been compliant with her medications. Her PCP is in the [facility] system in [place]. She denies fevers or chills. We are attempting to get a hold of her discharge summary and medication list from [facility]. <Pj Nicole MD - Last Filed: 11/05/23 14:14> Related Data Home Medications: Home Medications ?Medication ?Instructions ?Recorded ?Confirmed albuterol sulfate 90 mcg/actuation 2 puff inhalation QID PRN 01/10/22 11/02/23 aerosol inhaler (ProAir HFA) furosemide 20 mg tablet 20 mg PO DAILY 01/10/22 11/02/23 ipratropium 0.5 mg-albuterol 3 mg 3 ml inhalation Q6H PRN 01/11/22 11/02/23 (2.5 mg base)/3 mL nebulization soln pramipexole 0.125 mg tablet 0.125 mg PO DAILY 01/11/22 11/02/23 sildenafil (pulm.hypertension) 20 20 mg PO DAILY 01/11/22 11/02/23 mg tablet Previous Rx's ?Medication ?Instructions ?Recorded furosemide 40 mg tablet 40 mg PO DAILY PRN prn #20 tabs 03/26/22 fluticasone propionate 50 2 spray intranasal DAILY #16 grams 06/25/22 mcg/actuation nasal spray,suspension (Flonase Allergy Relief) ipratropium 0.5 mg-albuterol 3 mg 3 ml inhalation QID #90 mL 06/25/22 (2.5 mg base)/3 mL nebulization soln prednisone 20 mg tablet See Rx Instructions .Route 06/25/22 .COMPLEX #20 tabs nebulizer accessories #1 ea 11/14/22 prednisone 20 mg tablet 40 mg (2 x 20 mg) PO DAILY 5 days 11/14/22 #10 tabs <Pj Nicole MD - Last Filed: 11/05/23 14:14> Allergies/Adverse Reactions: Allergies Allergy/AdvReac Type Severity Reaction Status Date / Time Sulfa (Sulfonamide Allergy Severe Verified 11/02/23 03:35 Antibiotics) <Pj Nicole MD - Last Filed: 11/05/23 14:14> Review of Systems Narrative: She is chronically short of breath. She wears oxygen at 4 L every night and use it on a p.r.n. basis during the day. She lives with her daughter. She is disabled based on her lung disease. Review of systems in all other areas is noted to be negative. <Pj Nicole MD - Last Filed: 11/05/23 14:14> [facility] Medical History: Medical History Shortness of breath ?R06.02 - Shortness of breath (ICD-10) Constipation ?K59.00 - Constipation, unspecified (ICD-10) Hypomagnesemia ?E83.42 - Hypomagnesemia (ICD-10) Hemarthrosis ?M25.00 - Hemarthrosis, unspecified joint (ICD-10) Fracture of tibial plateau, closed ?S82.143A - Displaced bicondylar fracture of unspecified tibia, initial encounter for closed fracture (ICD-10) Fracture of ribs, multiple ?S22.49XA - Multiple fractures of ribs, unspecified side, initial encounter for closed fracture (ICD-10) Traumatic fracture of sternum ?S22.20XA - Unspecified fracture of sternum, initial encounter for closed fracture (ICD-10) Tobacco use ?Z72.0 - Tobacco use (ICD-10) Severe pulmonary hypertension ?I27.20 - Pulmonary hypertension, unspecified (ICD-10) CHF (congestive heart failure) ?I50.9 - Heart failure, unspecified (ICD-10) COPD (chronic obstructive pulmonary disease) ?J44.9 - Chronic obstructive pulmonary disease, unspecified (ICD-10) <Pj Nicole MD - Last Filed: 11/05/23 14:14> Social History: Social History Smoking Status: Current every day smoker What tobacco products do you use: cigarettes Smoking packs per day: 0.5 Smoking cigarettes per day: 10.0 Do you use any of these nicotine containing products: None Second hand tobacco smoke exposure: No How often do you have a drink containing alcohol: never AUDIT-C Alcohol total score: 0 Non-prescribed substance use: denies use service: No <Pj Nicole MD - Last Filed: 11/05/23 14:14> Exam Narrative: Exam Narrative: Vitals noted. She has a chronic cough. HEENT: Conjunctiva clear. Tympanic membranes are pearly white bilaterally. Posterior pharynx is clear without erythema or exudate. Neck is supple without adenopathy, thyromegaly, carotid bruit. Lungs: Greatly diminished with inspiratory and expiratory wheezes. She has coarse rhonchi with coughing. Heart: Distant, tachycardic, regular. No murmur. Abdomen: Thin, Soft and nontender. No guarding, rigidity, rebound. Bowel sounds are normal. No palpable masses. Extremities: No cyanosis or edema. Good distal pulses. Skin: No abnormalities noted of the exposed skin. Neurologic: Awake, alert, fully oriented. Neurologic exam is nonfocal. She is tremulous. <Pj Nicole MD - Last Filed: 11/05/23 14:14> Const: Vital Signs, click to edit/add: Vital Signs - 24 hr 11/02/23 03:31 11/02/23 03:34 11/02/23 03:35 Temperature 98.8 F Pulse Rate 100 95 Pulse Rate [Right Pulse Oximeter] 115 H Respiratory Rate 28 H Blood Pressure 142/101 H Blood Pressure [Ri ght Upper Arm] 153/103 H Pulse Oximetry 85 L 88 88 Oxygen Delivery Me thod Nasal Cannula OxyMask Oxygen Flow Rate 10 11/02/23 04:00 11/02/23 04:01 11/02/23 04:02 Temperature Pulse Rate 96 93 93 Pulse Rate [Right Pulse Oximeter] Respiratory Rate Blood Pressure 144/102 H Blood Pressure [Ri ght Upper Arm] Pulse Oximetry 86 L 85 L 87 L Oxygen Delivery Me thod Oxygen Flow Rate 11/02/23 04:11 11/02/23 04:11 11/02/23 04:30 Temperature Pulse Rate 97 Pulse Rate [Right Pulse Oximeter] Respiratory Rate Blood Pressure Blood Pressure [Ri ght Upper Arm] Pulse Oximetry 85 L 85 L 86 L Oxygen Delivery Me thod OxyMask Oxygen Flow Rate 11/02/23 04:31 11/02/23 05:03 11/02/23 05:04 Temperature Pulse Rate 91 129 H 116 H Pulse Rate [Right Pulse Oximeter] Respiratory Rate Blood Pressure 151/100 H Blood Pressure [Ri ght Upper Arm] Pulse Oximetry 87 L 78 L Oxygen Delivery Me thod Oxygen Flow Rate 11/02/23 05:05 11/02/23 05:34 Temperature Pulse Rate 113 H Pulse Rate [Right Pulse Oximeter] Respiratory Rate Blood Pressure 111/76 Blood Pressure [Ri ght Upper Arm] Pulse Oximetry 83 L Oxygen Delivery Me thod Oxygen Flow Rate <Pj Nicole MD - Last Filed: 11/05/23 14:14> Vital Signs, click to edit/add: Vital Signs - 24 hr 11/02/23 03:31 11/02/23 03:34 11/02/23 03:35 Temperature 98.8 F Pulse Rate 100 95 Pulse Rate [Right Pulse Oximeter] 115 H Respiratory Rate 28 H Blood Pressure 142/101 H Blood Pressure [Ri ght Upper Arm] 153/103 H Pulse Oximetry 85 L 88 88 Oxygen Delivery Me thod Nasal Cannula OxyMask Oxygen Flow Rate 10 10 11/02/23 04:00 11/02/23 04:01 11/02/23 04:02 Temperature Pulse Rate 96 93 93 Pulse Rate [Right Pulse Oximeter] Respiratory Rate Blood Pressure 144/102 H Blood Pressure [Ri ght Upper Arm] Pulse Oximetry 86 L 85 L 87 L Oxygen Delivery Me thod Oxygen Flow Rate 11/02/23 04:11 11/02/23 04:11 11/02/23 04:30 Temperature Pulse Rate 97 Pulse Rate [Right Pulse Oximeter] Respiratory Rate Blood Pressure Blood Pressure [Ri ght Upper Arm] Pulse Oximetry 85 L 85 L 86 L Oxygen Delivery Me thod OxyMask Oxygen Flow Rate 10 11/02/23 04:31 11/02/23 05:03 11/02/23 05:04 Temperature Pulse Rate 91 129 H 116 H Pulse Rate [Right Pulse Oximeter] Respiratory Rate Blood Pressure 151/100 H Blood Pressure [Ri ght Upper Arm] Pulse Oximetry 87 L 78 L Oxygen Delivery Me thod Oxygen Flow Rate 11/02/23 05:05 11/02/23 05:34 Temperature Pulse Rate 113 H Pulse Rate [Right Pulse Oximeter] Respiratory Rate Blood Pressure 111/76 Blood Pressure [Ri ght Upper Arm] Pulse Oximetry 83 L Oxygen Delivery Me thod Oxygen Flow Rate <Tim Cardona MD - Last Filed: 11/02/23 10:26> Course Course ED Course: Patient seen and examined. It seems that the only reason she is here is that she ran out of her home oxygen. She feels back to baseline once we got her sats up with 8 L by mask here. She is given a DuoNeb and 1 mg of lorazepam. Our tentative plan at this point is to keep her in the emergency department until she can get her oxygen delivered in the morning and then discharge her and follow her care instructions from male. Obviously if she has clinical worsening we will need to run some tests and re-evaluate the need for readmission. She is comfortable with this plan. <Pj Nicole MD - Last Filed: 11/05/23 14:14> Reevaluation(s) Additional Reevaluation(s): ER addendum Patient signed over to Dr. Cardona at 7:30 a.m. on 11/01 53-year-old female with a history of pulmonary hypertension and recent hospitalization at [facility]. She was just discharged yesterday evening. She was post discharge home with home oxygen. Apparently she is post be on nasal cannula 6-10 liters/minute. She was not able to get her oxygen tanks filled from [facility] yesterday evening after discharge. Unclear why. She ran out of oxygen overnight so came here to the ER in [place]. She is doing better on oxygen. She did receive Ativan for anxiety and a nebulizer. She does not require rehospitalization. She is at her baseline, per report. [facility]. Her daughter will get her home oxygen set up in 1 bring her home oxygen equipment here to the ER to pick her up and take her home. Recheck at about 9:00 a.m.. Patient was requesting a cab ride home. I went to talk to her. It turns out that she is not able to contact her home oxygen company. At this point would not be advisable to send her home because we do not have a clear plan in place and she does not have her oxygen equipment yet. She agrees to stay here. Her cellphone trending out of battery so she needs a refractive surgeon so she can call her oxygen company of her daughter. Recheck-10 20. Patient has things arranged home. Apparently her daughter has her home oxygen supplies at home now. Daughter is coming here to pick her up. She will be discharged. She is eager for discharge. <Tim Cardona MD - Last Filed: 11/02/23 10:26> Vital Signs Vital signs: Initial Vital Signs Temperature 98.8 F 11/02/23 03:31 Temperature Source Temporal Artery Scan 11/02/23 03:31 Pulse Rate 115 H 11/02/23 03:31 Respiratory Rate 28 H 11/02/23 03:31 Blood Pressure 153/103 H 11/02/23 03:31 Blood Pressure Mean 119 H 11/02/23 03:31 Blood Pressure Position Sitting 11/02/23 03:31 Pulse Oximetry 85 L 11/02/23 03:31 Oxygen Delivery Method Nasal Cannula 11/02/23 03:31 Oxygen Flow Rate 10 11/02/23 03:31 Vital Signs Temperature 98.8 F 11/02/23 03:31 Pulse Rate 115 H 11/02/23 03:31 Respiratory Rate 28 H 11/02/23 03:31 Blood Pressure 153/103 H 11/02/23 03:31 Pulse Oximetry 85 L 11/02/23 03:31 Oxygen Delivery Method Nasal Cannula 11/02/23 03:31 Oxygen Flow Rate 10 11/02/23 03:31 Temperature 98.8 F 11/02/23 03:31 Pulse Rate 113 H 11/02/23 05:05 Respiratory Rate 28 H 11/02/23 03:31 Blood Pressure 111/76 11/02/23 05:34 Pulse Oximetry 83 L 11/02/23 05:05 Oxygen Delivery Method OxyMask 11/02/23 04:11 Oxygen Flow Rate 10 11/02/23 04:11 <Pj Nicole MD - Last Filed: 11/05/23 14:14> Initial Vital Signs Temperature 98.8 F 11/02/23 03:31 Temperature Source Temporal Artery Scan 11/02/23 03:31 Pulse Rate 115 H 11/02/23 03:31 Respiratory Rate H 11/02/23 03:31 Blood Pressure 153/103 H 11/02/23 03:31 Blood Pressure Mean 119 H 11/02/23 03:31 Blood Pressure Position Sitting 11/02/23 03:31 Pulse Oximetry 85 L 11/02/23 03:31 Oxygen Delivery Method Nasal Cannula 11/02/23 03:31 Oxygen Flow Rate 10 11/02/23 03:31 Vital Signs Temperature 98.8 F 11/02/23 03:31 Pulse Rate 115 H 11/02/23 03:31 Respiratory Rate 28 H 11/02/23 03:31 Blood Pressure 153/103 H 11/02/23 03:31 Pulse Oximetry 85 L 11/02/23 03:31 Oxygen Delivery Method Nasal Cannula 11/02/23 03:31 Oxygen Flow Rate 10 11/02/23 03:31 Temperature 98.8 F 11/02/23 03:31 Pulse Rate 113 H 11/02/23 05:05 Respiratory Rate 28 H 11/02/23 03:31 Blood Pressure 111/76 11/02/23 05:34 Pulse Oximetry 83 L 11/02/23 05:05 Oxygen Delivery Method OxyMask 11/02/23 04:11 Oxygen Flow Rate 10 11/02/23 04:11 <Tim Cardona MD - Last Filed: 11/02/23 10:26> Medications Administered Medications: Discontinued Medications Generic Name Dose Route Start Last Admin Trade Name Freq PRN Reason Stop Dose Admin Albuterol 2.5 mg 11/02/23 05:04 11/02/23 05:11 Albuterol Sulfate 2.5 Mg/[address] 11/02/23 05:05 2.5 mg ONCE ONE Administration Albuterol/Ipratropium 1 [facility] 11/02/23 03:47 11/02/23 03:59 Iprat-Albut 0.5-2.5 Mg/3 Ml [facility] 11/02/23 03:48 1 neb ONCE ONE Administration Lorazepam 1 mg 11/02/23 03:47 11/02/23 03:59 Lorazepam 2 Mg/Ml Inj IVP 11/02/23 03:48 1 mg ONCE ONE Administration <Pj Nicole MD - Last Filed: 11/05/23 14:14> Discontinued Medications Generic Name Dose Route Start Last Admin Trade Name Freq PRN Reason Stop Dose Admin Albuterol 2.5 mg 11/02/23 05:04 11/02/23 05:11 Albuterol Sulfate 2.5 Mg/[address] 11/02/23 05:05 2.5 mg ONCE ONE Administration Albuterol/Ipratropium 1 [facility] 11/02/23 03:47 11/02/23 03:59 Iprat-Albut 0.5-2.5 Mg/3 Ml [facility] 11/02/23 03:48 1 neb ONCE ONE Administration Lorazepam 1 mg 11/02/23 03:47 11/02/23 03:59 Lorazepam 2 Mg/Ml Inj IVP 11/02/23 03:48 1 mg ONCE ONE Administration <Tim Cardona MD - Last Filed: 11/02/23 10:26> Discharge Plan Discharge Clinical Impression: COPD exacerbation <Pj Nicole MD - Last Filed: 11/05/23 14:14> Patient Disposition: Home, Self-Care <Pj Nicole MD - Last Filed: 11/05/23 14:14> Condition: Improved <Pj Nicole MD - Last Filed: 11/05/23 14:14> Additional Instructions: Continue all current meds. Home oxygen at 4 liters to keep sats in the mid 80s. Follow up with your PCP as scheduled. <Pj Nicole MD - Last Filed: 11/05/23 14:14> Prescriptions: No Action albuterol sulfate [ProAir HFA] 90 mcg/actuation HFA aerosol inhaler 2 puff INHALATION QID PRN furosemide 20 mg tablet 20 mg PO DAILY ipratropium-albuterol 0.5 mg-3 mg(2.5 mg base)/3 mL solution for nebulization 3 ml INHALATION Q6H PRN pramipexole 0.125 mg tablet 0.125 mg PO DAILY sildenafil (pulm.hypertension) 20 mg tablet 20 mg PO DAILY furosemide 40 mg tablet 40 mg PO DAILY PRN (Reason: prn) Qty: 20 2RF (DME) nebulizer accessories Kit See Rx Instructions .Route Qty: 1 0RF Rx Instructions: As directed prednisone 20 mg tablet 40 mg PO DAILY 5 Days Qty: 10 0RF ipratropium-albuterol 0.5 mg-3 mg(2.5 mg base)/3 mL solution for nebulization 3 ml inhalation QID Qty: 90 0RF prednisone 20 mg tablet See Rx Instructions .ROUTE .COMPLEX Qty: 20 0RF Rx Instructions: 60 mg daily for 3 days then 40 mg daily for 4 days then 20 mg daily for 3 days fluticasone propionate [Flonase Allergy Relief] 50 mcg/actuation spray,suspension 2 spray intranasal DAILY Qty: 16 1RF Rx Instructions: administer into each nostril <Pj Nicole MD - Last Filed: 11/05/23 14:14> Follow Up/Referrals: Ro Norton, DUSTING AND BRUSHING MACHINE OPERATOR, 8[employer] GR[employer] MATHEMATICS TEACHER [Primary Care Provider] - <Pj Nicole MD - Last Filed: 11/05/23 14:14> Stand Alone Forms: [employer] Info Instructions <Pj Nicole MD - Last Filed: 11/05/23 14:14>
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
--- OUTSIDE RECORDS SUMMARY | 2023-11-02 03:53 | XMS_ITS | Referral Summary ---
Author Organization [facility] Address [address] [place] [address] Care Team Providers Care Prom Burn Off Operator Name Role Phone JeseniaRo jacob Elan MORA C.N.P., D.N.P. Primary Ca re Provider Source Comments Patient records contain information from all sites at [facility]. For routine questions regarding patient records, call [phone] during business hours, M-F 8:00 AM - 5:00 PM Central Time. Record requests for emergency care only can be directed to [phone] at any time.[facility] Encounters Date Type Department Care Team Description 10/31/2023 12:53 AM CDT - 11/01/2023 4:46 PM CDT Hospital [facility], [facility], Sixth Floor [address] [place] [phone] Whit Bhatti M.D. Cortes Puentes, Gustavo A, M.D. Acute Respiratory Failure With Hypoxia (HCC) (Primary Dx); Hypertension Pulmonary Primary (HCC) Discharge Disposition: Home or Self Care 10/30/2023 9:57 PM CDT - 10/31/2023 12:05 AM CDT Emergency [facility] [address] [place] [phone] Serjio Gonsalves APRN, Bolivar.N.P., D.N.P., M.S.N. Acute And Chronic Respiratory Failure With Hypoxia (HCC) (Primary Dx); Chronic Obstructive Pulmonary Disease Exacerbation (HCC); Acute Respiratory Failure With Hypercapnia (HCC) Discharge Disposition: [facility] 10/30/2023 Intake [facility] 10/17/2023 Orders Only [facility] SELF TEST AUAC [address] [place] [phone] Ro Norton APRN, C.N.P., D.N.P. Screening Cancer Colon 10/03/2023 Orders Only [facility] SELF TEST AUAC [address] [address] Ro Norton APRN, C.N.P., D.N.P. Screening Cancer Colon 09/27/2023 Patient Self-Triage [facility] Symptom Equity Holder, Provider 09/27/2023 Patient Self-Triage [facility] Symptom Equity Holder, Provider 09/27/2023 Nurse Triage Department of Family [facility], [facility], [address] [phone] Evelia Hernandez, EthanN. Med Question 09/27/2023 3:00 PM CDT Telemedicine Department of Family [facility], [facility], [address] [phone] Berna Snow APRN, C.N.P. Abscess Dental (Primary Dx) Discharge Disposition: Home or Self Care 09/11/2023 Clinical Communication Department of Family [facility], [facility], [address] [address] Ro Norton APRN, C.N.P., D.N.P. Rx Prior Authorization (ensure); Rx Denial (ENSURE ) 09/11/2023 Clinical Communication Pharmacy Prior Auth RO [phone] Salome Alfaro 09/07/2023 1:30 PM CDT Telemedicine Department of Family Medicine, [facility], [place], [place] [address] [place] [phone] Valentin Andrea M.D. Pain Teeth (Primary Dx) Discharge Disposition: Home or Self Care 08/25/2023 Refill Department of Family Medicine, [facility], in [address] [phone] Ro Norton APRN, C.NLisandro., D.N.P. Med Refill 08/22/2023 Orders Only [facility] [address] [phone] Karine Coles, Pharm.D., R.Ph. 08/21/2023 Refill Department of Cardiovascular Medicine in [place], [place] [address] [place] [address] Lubna Mcmillan M.D. Med Refill 08/14/2023 9:30 AM CDT Telemedicine Department of Family Medicine, [facility], in [place], [place] [address] [place] [phone] Tc Bee D.O. Pain Teeth (Primary Dx) [...] (07/01/2020): Added automatically from request for surgery [id number] Anemia Posthemorrhagic Acute (Blood Loss Anemia) 10/25/2019 [...] = 0.6 oz pur e alcohol) ocassionally [facility] Utilities Answer Date Recorded In the past 12 months has e [employer] gas, oil, or water company threatened to [...] week 03/25/2022 How often do you attend [facility] or [facility] services? Never 03/25/2022 Do you belong to [...] Answer Date Recorded PHQ-2 Score 2 07/31/2023 [facility] of Occupat ional [facility] - Occupational Stress Questionnaire Answer [...] AM CDT Clinical Communication Virtual Review in [place], [place] [address] [place] [address] 11/15/2023 9:40 AM CDT Appointment Department of Laboratory Medicine and Pathology, [facility] in [place], [place] [address] [place] [phone] Lubna Mcmillan M.D. [address] [place] [phone] 11/15/2023 10:10 AM CDT Appointment Department of Cardiovascular Diseases in [place], [place] [address] [place] [phone] Lubna Mcmillan M.D. [address] [place] [phone] Discharge Disposition: Home or Self Care 11/15/2023 1:00 PM CDT Appointment Department of Cardiac Rehabilitation in [place], [place] [address] [place] [phone] Lubna Mcmillan M.D. [address] [place] [address] 11/15/2023 3:00 PM CDT Office Visit Department of Cardiovascular Medicine in [place], [place] [address] [place] [address] Lubna Mcmillan M.D. [address] [place] [address] 11/17/2023 2:00 PM CDT Comprehensive Visit Department of Family Medicine, [facility], in [address] [phone] Ro Norton APRN, C.N.P., D.N.P. [address] [place] [phone] 11/21/2023 11:00 AM CDT Office Visit Department of Family Medicine, [facility], in [address] [phone] Ro Norton APRN, C.N.P., D.N.P. [address] [place] [phone] Medical Devices Implanted Type Area Pretzel Cooker Device Identifier Shelf Expiration Date Model / Serial / Lot Osferion Bone Void Filler, 10 X 3 X 30 X 12 Mm Implanted:Qty : 1 on 10/24/2019 by Raudel Lewis M.D. at [facility] Hardware e.g. pins/screws/ rods Left: Tibia Arthrex 09/19/2023 [id number] / N/A / [id number] Scrw T[address] St Fthrd Nlck 3.5x38 - [id number] Implanted:Qty : 1 on 10/24/2019 by Raudel Lewis M.D. at [facility] Hardware e.g. pins/screws/ rods Left: Tibia Depuy Synthes [id number] / / Scrw Tmx St Fthrd Nlck 3.5x55 - [id number] Implanted:Qty : 1 on 10/24/2019 by Raudel Lewis M.D. at [facility] Hardware e.g. pins/screws/ rods Left: Tibia Depuy [employer]ynthes [id number] / / Scrw Tmx St Fthrd Nlck 3.5x65 - [id number] Implanted:Qty : 2 on 10/24/2019 by Raudel Lewis M.D. at [facility] Hardware e.g. pins/screws/ rods Left: Tibia Depuy S[employer]s [id number] / / Plt Ankl Mei 3h Lck 74.7x35.6 - [id number] Implanted:Qty : 1 on 10/24/2019 by Raudel Lewis M.D. at [facility] Hardware e.g. pins/screws/ rods Left: Tibia Rabia [employer] [id number] / / Scrw Dcp St Fthrd 3.5x75 - [id number] Implanted:Qty : 1 on 10/24/2019 by Raudel Lewis M.D. at [facility] Hardware e.g. pins/screws/ rods Left: [...] 10/31/2023 2:58 AM CDT RESPIRATORY PANEL, PCR, PATCH WORKER Routine 10/31/2023 2:18 AM CDT CRITICAL CARE [...] CDT Corin Chauhan M.D. LAB BLOOD ADD-ON [facility] [address] 200 [place] [address] * (ABNORMAL) Potassium (11/01/2023 7:17 AM CDT) Potassium, S 5.3(H) 3.6 - 5.2 mmol/L 11/01/2023 8:16 AM CDT DTL Comment: Specimen collected by special instruction procedure due to recurrent hemolysis. Blood 11/01/2023 7:17 AM CDT 11/01/2023 7:43 AM CDT Corin Chauhan M.D. LAB BLOOD ADD-ON Performing Organization Address City/[facility]/ZIP Co de Phone Number [facility] [address] 200 [place] [address] * Bilirubin, Direct (11/01/2023 7:17 AM CDT) Bilirubin, Direct, S 0.2 0.0 - 0.3 mg/dL 11/01/2023 8:16 AM CDT DTL Comment: Specimen collected by special instruction procedure due to recurrent hemolysis. Blood 11/01/2023 7:17 AM CDT 11/01/2023 7:43 AM CDT Corin Chauhan M.D. LAB BLOOD ADD-ON [facility] [address] [place] [address], [facility] [address] [place] [address] * (ABNORMAL) HCV RNA Detect / Quant, Serum (11/01/2023 3:27 AM CDT) Pathologist [facility] HCV RNA Detect/Quant, S [id number](A ) Undetected IU/mL 11/01/2023 1:[address] [facility] Comment: Result in log IU/mL is 5.72. ----ADDITIONAL INFORMATION---- The quantification range of this assay is 15 to 100,000,000 IU/mL (1.18 log to 8.00 log IU/mL). Testing was performed using the sandra HCV test ([employer] Blood (Blood, Venous) 11/01/2023 3:27 AM CDT 11/01/2023 8:12 AM CDT Sergei Palomares M.D. LAB MICROBIOLOGY - BLOOD ORDERABLES [facility] [address] [place] [address] [facility] [address] [place] [address] [place] [address] * (ABNORMAL) CBC with Differential, Blood (11/01/2023 3:27 AM CDT) Only the most recent of3 resultswithin the time period is included. [facility] Hemoglobin 17.1(H) 11.6 - 15.0 g/dL 11/01/2023 [...] CDT Corin Chauhan M.D. LAB BLOOD ADD-ON [facility] [address] [place] [address], [facility] DTL [facility] [address] [place] [address] [facility] [address] [place] [address] * (ABNORMAL) Hepatic Function Panel (11/01/2023 3:26 [...] CDT Sergei Palomares M.D. LAB BLOOD ADD-ON [facility] [address] [place] [address], [facility] [address] [place] [address] * (ABNORMAL) Basic Metabolic Panel (11/01/2023 3:26 [...] CDT Corin Chauhan M.D. LAB BLOOD ADD-ON [facility] 200 [place] [address], [facility] [address] [address] * (ABNORMAL) Staph aureus / MRSA, Nasal, PCR (10/31/2023 2:27 PM CDT) Staphylococcus aureus, PCR Positive(A) Negative 10/31/2023 4:08 PM CDT DTL MRSA, PCR Negative Negative 10/31/2023 4:08 PM CDT DTL Comment: Methicillin (oxacillin)-susceptible Staphylococcus aureus complex detected. Swab (Nares) 10/31/2023 2:27 PM CDT 10/31/2023 2:51 PM CDT Sergei Palomares M.D. LAB MICROBIOLOGY - GENERAL ORDERABLES [facility] [address] [place] [address], [address] [address] * CT Chest Angiogram and Pulmonary Arteries [...] LAB BLOOD NON ADD-ON Performing Organization Address City/[facility]/ZIP Co de Phone Number [facility] [address] [place] [address] * (ABNORMAL) Blood Gas without Coox, Arterial (10/31/2023 3:08 AM CDT) Pathologist [facility] pO2 52(L) 83 - 108 mm Hg [...] LAB BLOOD NON ADD-ON Performing Organization Address City/[facility]/ZIP Co de Phone Number [facility] [address] [place] [address], [facility] [address] [place] [address] * (ABNORMAL) Erythropoietin (EPO) (10/31/2023 2:58 AM CDT) Erythropoietin (EPO), S 18.8(H) 2.6 - 18.5 mIU/mL 10/31/2023 10:[address] [facility] Blood 10/31/2023 2:58 AM CDT 10/31/2023 8:56 AM CDT Corin Chauhan M.D. LAB BLOOD ADD-ON [facility] [address] [place] [address] [facility] [address] [place] [address] * (ABNORMAL) Respiratory Panel, PCR, Nasopharyngeal (10/31/2023 2:18 AM CDT) [facility] Specimen Source NASOPHARYNGEAL SWAB 10/31/2023 3:31 AM [...] using the FDA-Cleared FilmArray Respiratory Panel 2.1 ([address]). Swab (Nasopharynx) 10/31/2023 2:18 AM CDT 10/31/2023 2:35 AM CDT Corin Chauhan M.D. LAB MICROBIOLOGY - G ENERAL ORDERABLES [facility] [address] [place] [address], [facility] DT 200 [facility] [address] [place] [address] * Critical Care (10/30/2023 11:19 PM CDT) [...] MileN.P., M.S.N . [place] [address], [place] [address] * Troponin T, Baseline with 2 Hour/6 Hour Reflex Biomarker Panel (10/30/2023 10:28 PM CDT) Pathologist [facility] Troponin T, Baseline, 5th gen 10 <=10 ng/L 10/30/2023 11:07 PM CDT [facility] Blood (Blood, Venous) 10/30/2023 10:28 PM CDT 10/30/2023 10:52 PM CDT Serjio Gonsalves APRN, C.N.P., Katelynn.N.P., M.S.N . [place] [address], [facility] [place] [address] * (ABNORMAL) Venous Blood Gas with Lactate, [...] M.S.N . LAB POCT ORDERABLES - DEVICE [facility] [address] [place] [address], [facility] CNFL [facility] in [address] [address] * (ABNORMAL) NT-Pro B-Type Natriuretic Peptide (BNP) [...] . LAB BLOOD ADD-ON Performing Organization Address [facility] [place] [address], [place] [address] * (ABNORMAL) Prothrombin Time (PT) (10/30/2023 10:26 PM CDT) Prothrombin Time, P 13.1(H) 9.4 - 12.5 sec 10/30/2023 10:53 PM CDT [facility] INR 1.1 0.9 - 1.1 10/30/2023 10:53 PM CDT [facility] Comment: ----ADDITIONAL INFORMATION---- Standard intensity warfarin therapeutic range: 2.0 to 3.0 ?? High intensity warfarin therapeutic range: 2.5 to 3.5 Blood (Blood, Venous) 10/30/2023 10:26 PM CDT 10/30/2023 10:50 PM CDT Serjio Gonsalves APRN, C.N.P., MileN.P., M.S.N . LAB BLOOD ADD-ON Performing Organization Address [facility] [place] [address], [place] [address] [place] [address] * SARS Coronavirus 2, PCR Rapid Symptomatic (10/30/2023 9:50 PM CDT) SARS CoV-2, PCR, Rapid, V Undetected Undetected 10/30/2023 10:46 PM CDT CNFL SARS Coronavirus 2, Source, Rapid Swab, Nasopharynx 10/30/2023 10:43 PM CDT [facility] Swab (Nasopharynx) 10/30/2023 9:50 PM CDT 10/30/2023 10:43 PM CDT Bolivar Bradford APRN.N.Kirsty, Katelynn.N.P., M.S.N . LAB MICROBIOLOGY - GENERAL ORDERABLES Performing Organization Address [facility] Co de Phone Number [address] [address], [address] [address] * Influenza A/B and RSV, PCR, Point of Care (10/30/2023 9:50 PM CDT) Influenza A, POCT Negative Negative 10/30/2023 11:55 PM CDT CNFL Influenza B, POCT Negative Negative 10/30/2023 11:55 PM CDT CNFL Resp Syncytial Virus, POCT Negative Negative 10/30/2023 11:55 PM CDT [facility] Swab (Nasopharynx) 10/30/2023 9:50 PM CDT 10/30/2023 10:43 PM CDT Ninoska Bradford APRNNRaffyP., Katelynn.N.P., M.S.N . LAB POCT ORDERABLES - DEVICE Performing Organization Address [facility] Co de Phone Number [address] [address], [address] [address] * ECG 12 Lead (10/30/2023 9:43 PM CDT) Ventricular Rate ECG/Min 74 BPM MUSE UT Interval 146 ms MUSE QRSD Interval 120 ms MUSE QT Interval 434 ms MUSE QTC Interval 481 ms MUSE P Odd 70 degrees MUSE R Odd 108 degrees MUSE T Wave Odd 63 degrees MUSE 10/30/2023 9:43 PM CDT [...] LAB BLOOD ADD-ON Performing Organization Address City/[facility] Co de Phone Number [facility] [address] [place] [address], [facility] CNFL [facility] [place] [address] * HPV with Genotyping, PCR, ThinPrep (07/23/2021 8:24 AM CDT) [facility] HPV with Genotyping, ThinPrep, PCR Negative Negative [...] C.N.P., D.N.P. LAB MICROBIOLOGY - GENERAL ORDERABLES [facility] [address] [place] [address], [facility] ECLR [facility] in [place] [address] [place] [address] from Last 3 Months or Most Recently Relevant to Health Maintenance Advance Directives For more information, please contact: [phone] * Full Code (Latest Code Status on [...] Due to: Patient not available Care Teams Prom Burn Off Operator Relationship Specialty Start Date End Date Ro Norton APRN, C.N.P., D.N.P. [address] [phone] PCP - General Family Medicine 05/07/19
--- OUTSIDE RECORDS SUMMARY | 2023-11-02 03:53 | XMS_ITS ---
Author Organization [facility] Address [address] [place] [address] Care Team Providers Care Biodiesel Engine Specialist Name Role Phone Unavailable Unavailable Unavailable Surgery Details Not on file Complications Check Surgery Details section. Procedure Estimated Blood Loss Check Surgery Details section. Procedure Findings Check Surgery Details section. Procedure Specimens Taken Check Surgery Details section.
--- OUTSIDE RECORDS SUMMARY | 2023-11-02 03:54 | XMS_ITS | Encounter Summary ---
Author Organization [facility] Address [address] [place] [address] Care Team Providers Care Charting Clerk Name Role Phone Ro Norton APRN, C.N.P., D.N.P. Primary Ca re Provider Encounter Details Date Type Department Care Team (Late st Contact Info) Description 09/11/2023 Clinical Communication Pharmacy Prior Auth RO [phone] Salome Alfaro Social History Tobacco Use Types Packs/Day Years Used Date Smoking Tobacco: Every Day Cigarettes 0.5 30 Smokeless Tobacco: Never Comments:4-5 cigarettes a da y Alcohol Use Standard Drinks/Week Comments Not Currently 0 (1 standard drink = 0.6 oz pur e alcohol) ocassionally [facility] Utilities Answer Date Recorded In the past 12 months has e [employer], gas, oil, or water [employer] threatened to shut off services in your [...] How often do you attend chur or yarsanism services? Never 03/25/2022 Do you belong to any clubs o r organizations such as lutheran groups, unions, fraternal [...] Answer Date Recorded PHQ-2 Score 2 07/31/2023 [facility] - Occupational Stress Questionnaire Answer Date [...] your living situation today? I have a [facility] place to live 06/06/2023 Education Answer [...] AM CDT Clinical Communication Virtual Review in [place], [place] 200 [place] [address] 11/15/2023 9:40 AM CDT Appointment Department of Laboratory Medicine and Pathology, [facility], in [place], [place] [address] [place] [phone] Lubna Mcmillan M.D. [address] [place] [phone] 11/15/2023 10:10 AM CDT Appointment Department of Cardiovascular Diseases in [place], [place] [address] [place] [phone] Lubna Mcmillan M.D. [address] [place] [phone] Discharge Disposition: Home or Self Care 11/15/2023 1:00 PM CDT Appointment Department of Cardiac Rehabilitation in [place], [place] [address] [place] [address] Lubna Mcmillan M.D. [address] [place] [phone] 11/15/2023 3:00 PM CDT Office Visit Department of Cardiovascular Medicine in [place], [place] [address] [place] [address] Lubna Mcmillan M.D. [address] [place] [phone] 11/17/2023 2:00 PM CDT Comprehensive Visit Department of Family Medicine, [facility], in [address] [phone] Ro Norton APRN, C.N.P., D.N.P. [address] [place] [phone] 11/21/2023 11:00 AM CDT Office Visit Department of Family Medicine, [facility], in [address] [phone] Ro Norton APRN C.N.P., D.N.P. [address] [place] [phone] documented as of this encounter Visit Diagnoses Not on filedocumented in this encounter Care Teams Charting Clerk Relationship Specialty Start Date End Date Ro Norton APRN, C.N.P., D.N.P. [address] [phone] PCP - General Family Medicine 05/07/19 documented as of this encounter
--- OUTSIDE RECORDS SUMMARY | 2023-11-02 03:54 | XMS_ITS | Encounter Summary ---
Author Organization [facility] Address [address] [place] [address] Care Team Providers Care [employer] Specialist Name Role Phone Ro Norton APRN, C.N.P., D.N.P. Primary Ca re Provider Reason for Visit * Reason Comments Other Tooth infection Encounter Details Date Type Department Care Team (Late st Contact Info) Description 09/27/2023 3:00 PM CDT Telemedicine Department of Family Medicine, [facility], in [place], [place] [address] [place] [phone] Berna Snow APRN, C.N.P. [address] [place] [phone] Abscess Dental (Primary Dx) Discharge Disposition: Home [...] has e electric, gas, oil, or water [employer] threatened to shut off services in your [...] How often do you attend chur or lutheran services? Never 03/25/2022 Do you belong to any clubs o r organizations such as protestant groups, unions, fraternal [...] Answer Date Recorded PHQ-2 Score 2 07/31/2023 [facility] [place] of Occupat ional Health - Occupational Stress [...] your living situation today? I have a [facility] place to live 06/06/2023 Education [...] this encounter Progress Notes * Berna Snow, LINUX NETWORK ENGINEER, C.N.P. - 09/27/2023 3:00 PM CDT SUBJECTIVE [...] technology by Berna Snow APRN, C.N.P. in [facility] to the patient in patient's home. documented in this encounter Plan of Treatment Upcoming Encounters Date Type Department Care Team (Latest Contact Info) Description 11/08/2023 11:30 AM CDT Clinical Communication Virtual Review in [address] [phone] 11/15/2023 9:40 AM CDT Appointment Department of Laboratory Medicine and Pathology, [facility] in [address] [phone] Lubna Mcmillan M.D. [address] [place] [phone] 11/15/2023 10:10 AM CDT Appointment Department of Cardiovascular Diseases in [address] [phone] Lubna Mcmillan M.D. [address] [place] [phone] Discharge Disposition: Home or Self Care 11/15/2023 1:00 PM CDT Appointment Department of Cardiac Rehabilitation in [place], [place] [address] [place] [address] Lubna Mcmillan M.D. [address] [place] [phone] 11/15/2023 3:00 PM CDT Office Visit Department of Cardiovascular Medicine in [place], [place] [address] [place] [address] Lubna Mcmillan M.D. [address] [place] [phone] 11/17/2023 2:00 PM CDT Comprehensive Visit Department of Family Medicine, [facility] [place], in [address] [phone] Ro Norton APRN C.N.P., D.N.P. [address] [place] [phone] 11/21/2023 11:00 AM CDT Office Visit Department of Family Medicine, [facility] [place], in [address] [phone] Ro Norton APRN, C.N.P., D.N.P. [address] [place] [phone] documented as of this encounter Visit Diagnoses Diagnosis Abscess Dental- Primary documented in this encounter Care Teams [employer] Specialist Relationship Specialty Start Date End Date Ro Norton APRN C.N.P., D.N.P. [address] [place] [phone] PCP - General Family Medicine 05/07/19 documented as of this encounter
--- OUTSIDE RECORDS SUMMARY | 2023-11-02 03:54 | XMS_ITS | Encounter Summary ---
Author Organization [facility] Address [address] [place] [address] Care Team Providers Care Billet Shearer Name Role Phone Ro Norton APRN, C.N.P., [...] oz pur e alcohol) ocassionally [facility] Utilities Answer Date Recorded In the past 12 months has e electric, gas, oil, or water [employer] threatened to shut off services in your [...] Answer Date Recorded PHQ-2 Score 2 07/31/2023 [facility] - Occupational Stress Questionnaire Answer Date [...] your living situation today? I have a [facility] place to live 11/01/2023 Education Answer [...] AM CDT Clinical Communication Virtual Review in [place], [place] [address] [place] [address] 11/15/2023 9:40 AM CDT Appointment Department of Laboratory Medicine and Pathology, [facility], in [place], [place] [address] [place] [phone] Lubna Mcmillan M.D. [address] [place] [phone] 11/15/2023 10:10 AM CDT Appointment Department of Cardiovascular Diseases in [place], [place] [address] [place] [phone] Lubna Mcmillan M.D. [address] [place] [phone] Discharge Disposition: Home or Self Care 11/15/2023 1:00 PM CDT Appointment Department of Cardiac Rehabilitation in [place], [place] [address] [place] [address] Lubna Mcmillan M.D. [address] [place] [address] 11/15/2023 3:00 PM CDT Office Visit Department of Cardiovascular Medicine in [place], [place] [address] [place] [phone] Lubna Mcmillan M.D. [address] [place] [phone] 11/17/2023 2:00 PM CDT Comprehensive Visit Department of Family Medicine, [facility], in [address] [phone] Ro Norton APRN, C.N.P., D.N.P. [address] [place] [phone] 11/21/2023 11:00 AM CDT Office Visit Department of Family Medicine, [facility], in [address] [phone] Ro Norton APRN, C.N.P., D.N.P. [address] [place] [phone] documented as of this encounter Visit Diagnoses Not on filedocumented in this encounter Additional Health Concerns Infection Onset Date Last Indicated Resolved Time COVID19 Pending 10/30/2023 10/30/2023 10/30/2023 1 1:05 PM CDT COVID19 Pending 10/31/2023 10/31/2023 10/31/2023 3 :31 AM CDT documented as of this encounter Care Teams Billet Shearer Relationship Specialty Start Date End Date Ro Norton APRN, C.N.P., D.N.P. [phone] [phone] PCP - General Family Medicine 05/07/19 documented as of this encounter
--- OUTSIDE RECORDS SUMMARY | 2023-11-02 03:54 | XMS_ITS | Encounter Summary ---
Author Organization [facility] Address [address] [place] [address] Care Team Providers Care Pattern Worker Name Role Phone Ro Norton APRN, C.N.P., D.N.P. Primary Ca re Provider Encounter Details Date Type Department Care Team (Late st Contact Info) Description 09/27/2023 Patient Self-Triage [facility] Symptom Commercial Roofer, Provider Social History Tobacco Use Types Packs/Day Years Used Date Smoking Tobacco: Every Day Cigarettes 0.5 30 Smokeless Tobacco: Never Comments:4-5 cigarettes a da y Alcohol Use Standard Drinks/Week Comments Not Currently 0 (1 standard drink = 0.6 oz pur e alcohol) ocassionally [facility] Utilities Answer Date Recorded In the past 12 months has e [employer], gas, oil, or water [employer] threatened to shut off services in your [...] often do you attend chur ch or shinto services? Never 03/25/2022 Do you belong to any clubs o r organizations such as adventism groups, unions, fraternal [...] Answer Date Recorded PHQ-2 Score 2 07/31/2023 [facility] - Occupational Stress Questionnaire Answer Date [...] AM CDT Clinical Communication Virtual Review in [place], [place] [address] [place] [phone] 11/15/2023 9:40 AM CDT Appointment Department of Laboratory Medicine and Pathology, [facility] in [place], [place] [address] [place] [phone] Lubna Mcmillan M.D. [address] [place] [phone] 11/15/2023 10:10 AM CDT Appointment Department of Cardiovascular Diseases in [place], [place] [address] [place] [phone] Lubna Mcmillan M.D. [address] [place] [phone] Discharge Disposition: Home or Self Care 11/15/2023 1:00 PM CDT Appointment Department of Cardiac Rehabilitation in [place], [place] [address] [place] [address] Lubna Mcmillan M.D. [address] [place] [address] 11/15/2023 3:00 PM CDT Office Visit Department of Cardiovascular Medicine in [place], [place] [address] [place] [address] Lubna Mcmillan M.D. [address] [place] [phone] 11/17/2023 2:00 PM CDT Comprehensive Visit Department of Family Medicine, [facility], in [address] [phone] Ro Norton APRN, C.N.P., D.N.P. [address] [place] [phone] 11/21/2023 11:00 AM CDT Office Visit Department of Family Medicine, [facility], in [address] [phone] Ro Norton APRN, C.N.P., D.N.P. [address] [place] [phone] documented as of this encounter Visit Diagnoses Not on filedocumented in this encounter Care Teams Pattern Worker Relationship Specialty Start Date End Date Ro Norton APRN C.N.P., D.N.P. [address] [place] [phone] PCP - General Family Medicine 05/07/19 documented as of this encounter
--- OUTSIDE RECORDS SUMMARY | 2023-11-02 03:54 | XMS_ITS | Encounter Summary ---
Author Organization [facility] Address [address] [place] [address] Care Team Providers Care Roller Printer Name Role Phone Ro Norton APRN, C.N.P., D.N.P. Primary Ca re Provider Encounter Details Date Type Department Care Team (Late st Contact Info) Description 10/03/2023 Orders Only [facility] SELF TEST [facility] [address] [place] [phone] Ro Norton APRN, C.N.P., D.N.P. [address] [place] [phone] Screening Cancer Colon Social History Tobacco Use Types Packs/Day Years Used Date Smoking Tobacco: Every Day Cigarettes 0.5 30 Smokeless Tobacco: Never Comments:4-5 cigarettes a da y Alcohol Use Standard Drinks/Week Comments Not Currently 0 (1 standard drink = 0.6 oz pur e alcohol) ocassionally [facility] Utilities Answer Date Recorded In the [...] How often do you attend chur or congregation services? Never 03/25/2022 Do you belong to [...] 2 07/31/2023 [facility] [place] of Occupat ional Health - Occupational Stress [...] your living situation today? I have a [facility] place to live 06/06/2023 Education [...] AM CDT Clinical Communication Virtual Review in [place], [place] [address] [place] [address] 11/15/2023 9:40 AM CDT Appointment Department of Laboratory Medicine and Pathology, [facility], in [place], [place] [address] [place] [phone] Lubna Mcmillan M.D. [address] [place] [phone] 11/15/2023 10:10 AM CDT Appointment Department of Cardiovascular Diseases in [place], [place] [address] [place] [phone] Lubna Mcmillan M.D. [address] [place] [phone] Discharge Disposition: Home or Self Care 11/15/2023 1:00 PM CDT Appointment Department of Cardiac Rehabilitation in [place], [place] [address] [place] [phone] Lubna Mcmillan M.D. [address] [place] [phone] 11/15/2023 3:00 PM CDT Office Visit Department of Cardiovascular Medicine in [place], [place] [address] [place] [address] Lubna Mcmillan M.D. [address] [place] [phone] 11/17/2023 2:00 PM CDT Comprehensive Visit Department of Family Medicine, [facility], in [address] [phone] Ro Norton APRN, C.N.P., D.N.P. [address] [place] [phone] 11/21/2023 11:00 AM CDT Office Visit Department of Family Medicine, [facility], in [address] [phone] Ro Norton APRN, C.N.P., D.N.P. [address] [place] [phone] Scheduled Orders Name Type Priority Associated Diagnoses Orde r Schedule Cologuard - Sent Out Lab Lab Routine Screening Cancer Colon Expected: 10/17/2023, Expires: 01/02/2025 documented as of this encounter Visit Diagnoses Diagnosis Screening Cancer Colon documented in this encounter Care Teams Roller Printer Relationship Specialty Start Date End Date Ro Nortno APRN, C.N.P., D.N.P. [address] [phone] PCP - General Family Medicine 05/07/19 documented as of this encounter
--- OUTSIDE RECORDS SUMMARY | 2023-11-02 03:54 | XMS_ITS | Encounter Summary ---
Author Organization [facility] Address [address] [place] [address] Care Team Providers Care Drop Hammer Setter Up Name Role Phone Ro Norton APRN, C.N.P., D.N.P. Primary Ca re Provider Reason for Visit * Reason Onset Date Comments Med Question 09/27/2023 Encounter Details Date Type Department Care Team (Late st Contact Info) Description 09/27/2023 Nurse Triage Department of Family Medicine, [facility] [place] [facility], in [address] [phone] Evelia Hernandez, R.N. [address] [place] [phone] Med Question Social History Tobacco Use Types Packs/Day Years Used Date Smoking Tobacco: Every Day Cigarettes 0.5 30 Smokeless Tobacco: Never Comments:4-5 cigarettes a da y Alcohol Use Standard Drinks/Week Comments Not Currently 0 (1 standard drink = 0.6 oz pur e alcohol) ocassionally [facility] Utilities Answer Date Recorded In the [...] Answer Date Recorded PHQ-2 Score 2 07/31/2023 [facility] of Occupat ional Health - Occupational Stress [...] your living situation today? I have a [facility] place to live 06/06/2023 Education Answer [...] AM CDT Clinical Communication Virtual Review in [place], [place] [address] [place] [address] 11/15/2023 9:40 AM CDT Appointment Department of Laboratory Medicine and Pathology, [facility] in [place], [place] [address] [place] [phone] Lubna Mcmillan M.D. [address] [place] [phone] 11/15/2023 10:10 AM CDT Appointment Department of Cardiovascular Diseases in [place], [place] [address] [place] [phone] Lubna Mcmillan M.D. [address] [place] [phone] Discharge Disposition: Home or Self Care 11/15/2023 1:00 PM CDT Appointment Department of Cardiac Rehabilitation in [place], [place] [address] [place] [phone] Lubna Mcmillan M.D. [address] [place] [phone] 11/15/2023 3:00 PM CDT Office Visit Department of Cardiovascular Medicine in [place], [place] [address] [place] [phone] Lubna Mcmillan M.D. [address] [place] [phone] 11/17/2023 2:00 PM CDT Comprehensive Visit Department of Family Medicine, [facility] [place] [facility], in [address] [phone] Ro Norton APRN, C.N.P., D.N.P. [address] [place] [phone] 11/21/2023 11:00 AM CDT Office Visit Department of Family Medicine, [facility] [place] [facility], in [address] [place] [phone] Ro Norton APRN, C.N.Kirsty, D.N.P. [address] [place] [phone] documented as of this encounter Visit Diagnoses Not on filedocumented in this encounter Care Teams Drop Hammer Setter Up Relationship Specialty Start Date End Date Ro Norton APRN, C.N.Taylor., D.N.P. [address] [place] [phone] PCP - General Family Medicine 05/07/19 documented as of this encounter
--- OUTSIDE RECORDS SUMMARY | 2023-11-02 03:54 | XMS_ITS | Encounter Summary ---
Author Organization [facility] Address [address] [place] [address] Care Team Providers Care Sleep Technician Name Role Phone Ro Norton APRN C.N.PRaffy, D.N.P. Primary Ca re Provider Reason for Visit * Reason Comments Shortness of Breath 53 yo presents to [facility] ED via [facility] with c/o worsening shortness of breath, cough, and headache. Patient received Fentanyl, and Ativan en-route for agitation, shortness of breath, and headache. Patient has productive cough with clear sputum. Encounter Details Date Type Department Care Team (Late Contact Info) Description 10/30/2023 9:57 PM CDT - 10/31/2023 12:05 AM CDT [facility] [address] [place] [phone] Serjio Gonsalves APRN, C.N.P., D.N.P., M.S.N. [address] [place] [phone] Acute And Chronic Respiratory Failure With Hypoxia [...] = 0.6 oz pur e alcohol) ocassionally [facility] Utilities Answer Date Recorded In the past [...] often do you attend chur ch or yazdanism services? Never 03/25/2022 Do you belong to any clubs o r organizations such as nondenominational groups, unions, fraternal [...] Answer Date Recorded PHQ-2 Score 2 07/31/2023 [facility] [place] of Occupat ional [facility] - Occupational Stress Questionnaire Answer Date Recorded [...] Serjio Gonsalves APRN, C.N.P., Kristin, M.S.N. 10/30/23 3039 documented in this encounter ED Notes * Serjio Gonsalves APRN, C.N.P., Kristin, M.S.N. - 10/30/2023 10:49 PM CDT SUBJECTIVE CHIEF COMPLAINT/REASON FOR VISIT Shortness of Breath (53 yo presents to the ED via [facility] with c/o worsening shortnessof breath, cough, [...] CCOD consult 223 Consulted with CCOD from [facility], Woody Art M.D., M.S. I appreciate [...] and would like to do it at [facility] in [place]. 2305 CTA chest was ordered but patient was unstable to go to CT due to persistent hypoxia. EMS enroute to transport patient. Will defer CTA chest at this time until patient gets to [facility]. 2308 BUN (Blood Urea Nitrogen), P(!): 22 [...] Serjio Gonsalves APRN, C.N.P., D.N.P., M.S.N. 10/30/23 [phone] documented in this encounter Plan of Treatment Upcoming Encounters Date Type Department Care Team (Latest Contact Info) Description 11/08/2023 11:30 AM CDT Clinical Communication Virtual Review in [place], [place] [address] [place] [phone] 11/15/2023 9:40 AM CDT Appointment Department of Laboratory Medicine and Pathology, [facility], in [place], [place] [address] [place] [phone] Lubna Mcmillan M.D. [address] [place] [phone] 11/15/2023 10:10 AM CDT Appointment Department of Cardiovascular Diseases in [place], [place] [address] [place] [phone] Lubna Mcmillan M.D. [address] [place] [phone] Discharge Disposition: Home or Self Care 11/15/2023 1:00 PM CDT Appointment Department of Cardiac Rehabilitation in [place], [place] [address] [place] [phone] Lubna Mcmillan M.D. [address] [place] [phone] 11/15/2023 3:00 PM CDT Office Visit Department of Cardiovascular Medicine in [place], [place] [address] [place] [phone] Lubna Mcmillan M.D. [address] [place] [phone] 11/17/2023 2:00 PM CDT Comprehensive Visit Department of Family Medicine, [facility], in [address] [phone] Ro Norton APRN, C.N.P., D.N.P. [address] [place] [phone] 11/21/2023 11:00 AM CDT Office Visit Department of Family Medicine, [facility], in [address] [phone] Ro Norton APRN, C.N.PRaffy, D.N.P. [address] [phone] documented as of this encounter Procedures Procedure [...] newconsolidative opacity identified. Serjio Gonsalves APRN, C.N.P., Jsoe., M.S.N . IMG DIAGNOSTIC IMAGING PROCEDURES * Troponin T, Baseline with 2 Hour/6 Hour Reflex Biomarker Panel (10/30/2023 10:28 PM CDT) Troponin T, Baseline, 5th gen 10 <=10 ng/L 10/30/2023 11:07 PM CDT CNFL Blood (Blood, Venous) 10/30/2023 10:28 PM CDT 10/30/2023 10:52 PM CDT Serjio Gonsalves APRN, C.N.P., MileNRaffyP., M.S.N . LAB BLOOD TROPONIN [facility] [address] [place] [address], [facility] CNFL [facility] [place] [address] * Lactate for Sepsis with Reflex (10/30/2023 10:28 PM CDT) Lactate, P 2.2 0.5 - 2.2 mmol/L 10/30/2023 10:55 PM CDT CNFL Blood (Blood, Venous) 10/30/2023 10:28 PM CDT 10/30/2023 10:40 PM CDT Serjio Gonsalves APRN, C.N.P., MileN.P., M.S.N . LAB BLOOD NON ADD-ON [facility] [address] [place] [address], [address] [address] * (ABNORMAL) Venous Blood Gas with Lactate, POCT, B (10/30/2023 10:26 PM CDT) [facility] pH, Venous, POCT, B 7.28(L) 7.32 - [...] ORDERABLES - DEVICE Performing Organization Address [facility]/ZIP Co de Phone Number [facility] [address] [place] [address], [facility] in [address] [address] * (ABNORMAL) Prothrombin Time (PT) (10/30/2023 10:26 PM CDT) Prothrombin Time, P 13.1(H) 9.4 - 12.5 sec 10/30/2023 10:53 PM CDT CNFL INR 1.1 0.9 - 1.1 10/30/2023 10:53 PM CDT CNFL Comment: ----ADDITIONAL INFORMATION---- Standard intensity warfarin therapeutic range: 2.0 to 3.0 ?? High intensity warfarin therapeutic range: 2.5 to 3.5 Blood (Blood, Venous) 10/30/2023 10:26 PM CDT 10/30/2023 10:50 PM CDT Bolviar Bradford APRN.NRaffyPRaffy, D.N.P., M.S.N . LAB BLOOD ADD-ON [facility] [address] [place] [address], [facility] in [address] [address] * (ABNORMAL) NT-Pro B-Type Natriuretic Peptide (BNP) (10/30/2023 10:26 PM CDT) NT-Pro BNP 1566(H) <=141 pg/mL 10/30/2023 11:17 PM CDT [facility] Comment: NT-proBNP values less than 300 [...] . LAB BLOOD ADD-ON Performing Organization Address City/[facility] Co de Phone Number [facility] [address] [place] [address], [facility] CNFL [facility] in [address] [address] * (ABNORMAL) Basic Metabolic Panel (10/30/2023 10:26 [...] C.N.P., Katelynn.N.P., M.S.N . LAB BLOOD ADD-ON [facility] [address] [place] [address], [facility] CNFL [facility] in [address] [address] * (ABNORMAL) CBC with Differential, Blood (10/30/2023 [...] . LAB BLOOD ADD-ON Performing Organization Address City/[facility] Co de Phone Number [facility] [address] [place] [address], [address] [address] [facility] in [address] [address] * Influenza A/B and RSV, PCR, Point [...] ORDERABLES - DEVICE Performing Organization Address [facility] Co de Phone Number [facility] [address] [place] [address], [facility] in [address] [address] * SARS Coronavirus 2, PCR Rapid Symptomatic [...] City/[facility] Co de Phone Number [facility] [address] [place] [address], [place] CNFL [facility] in [address] [address] * ECG 12 Lead (10/30/2023 9:43 PM CDT) Ventricular Rate ECG/Min 74 BPM MUSE AK Interval 146 ms MUSE QRSD Interval 120 ms MUSE QT Interval 434 ms MUSE QTC Interval 481 ms MUSE P [place] 70 degrees MUSE R [place] 108 degrees MUSE T Wave [place] 63 degrees MUSE 10/30/2023 9:43 PM CDT [...] M.S.N . ECG ORDERABLES Performing Organization Address [facility]/ZIP Co de Phone Number MUSE NA documented [...] documented as of this encounter Care Teams Sleep Technician Relationship Specialty Start Date End Date Ro Norton APRN, C.N.P., D.N.P. [address] [phone] PCP - General Family Medicine 05/07/19 documented as of this encounter
--- OUTSIDE RECORDS SUMMARY | 2023-11-02 03:54 | XMS_ITS | Encounter Summary ---
Author Organization [facility] Address [address] [place] [address] Care Team Providers Care Dog Groomer Name Role Phone Ro Norton APRN, C.N.P., D.N.P. Primary Ca re Provider Reason for Visit * Reason Onset Date Comments Rx Prior Authorization 09/11/2023 ensure Rx Denial 09/11/2023 ENSURE Encounter Details Date Type Department Care Team (Latest Contact Info) Description 09/11/2023 Clinical Communication Department of Family Medicine, [facility], in [address] [phone] Ro Norton APRN, C.N.P., D.N.P. [address] [place] [phone] Rx Prior Authorization (ensure); Rx Denial (ENSURE ) Social History Tobacco Use Types Packs/Day Years Used Date Smoking Tobacco: Every Day Cigarettes 0.5 30 Smokeless Tobacco: Never Comments:4-5 cigarettes a da y Alcohol Use Standard Drinks/Week Comments Not Currently 0 (1 standard drink = 0.6 oz pur e alcohol) ocassionally [facility] Utilities Answer Date Recorded In the [...] week 03/25/2022 How often do you attend [facility] or jainism services? Never 03/25/2022 Do you belong to any clubs o r organizations such as buddhist groups, unions, fraternal [...] Answer Date Recorded PHQ-2 Score 2 07/31/2023 [facility] - Occupational Stress Questionnaire [...] Release Rx: Open this encounter, go to [employer], and click on the medication. If the [...] AM CDT Clinical Communication Virtual Review in [place], [place] 200 [place] [address] 11/15/2023 9:40 AM CDT Appointment Department of Laboratory Medicine and Pathology, [facility], in [address] [phone] Lubna Mcmillan M.D. [address] [place] [phone] 11/15/2023 10:10 AM CDT Appointment Department of Cardiovascular Diseases in [place], [place] [address] [place] [phone] Lubna Mcmillan M.D. [address] [place] [phone] Discharge Disposition: Home or Self Care 11/15/2023 1:00 PM CDT Appointment Department of Cardiac Rehabilitation in [place], [place] [address] [place] [phone] Lubna Mcmillan M.D. [address] [place] [phone] 11/15/2023 3:00 PM CDT Office Visit Department of Cardiovascular Medicine in [place], [place] [address] [place] [phone] Lubna Mcmillan M.D. [address] [place] [phone] 11/17/2023 2:00 PM CDT Comprehensive Visit Department of Family Medicine, [facility], in [address] [phone] Ro Norton APRN, C.N.P., D.N.P. [address] [place] [phone] 11/21/2023 11:00 AM CDT Office Visit Department of Family Medicine, [facility], in [address] [phone] Ro Norton APRN, C.N.P., D.N.P. [address] [place] [phone] documented as of this encounter Visit Diagnoses Not on filedocumented in this encounter Care Teams Dog Groomer Relationship Specialty Start Date End Date Ro Norton APRN, C.N.P., D.N.P. [address] [phone] PCP - General Family Medicine 05/07/19 documented as of this encounter
--- OUTSIDE RECORDS SUMMARY | 2023-11-02 03:54 | XMS_ITS | Encounter Summary ---
Author Organization [facility] Address [address] [place] [address] Care Team Providers Care Logging Worker Name Role Phone Ro Norton APRN, C.N.P., D.N.P. Primary Ca re Provider Encounter Details Date Type Department Care Team (Late st Contact Info) Description 10/17/2023 Orders Only [facility] [address] [place] [phone] Ro Norton APRN, C.N.P., D.N.P. [address] [place] [phone] Screening Cancer Colon Social History Tobacco Use Types Packs/Day Years Used Date Smoking Tobacco: Every Day Cigarettes 0.5 30 Smokeless Tobacco: Never Comments:4-5 cigarettes a da y Alcohol Use Standard Drinks/Week Comments Not Currently 0 (1 standard drink = 0.6 oz pur e alcohol) ocassionally [facility] Utilities Answer Date Recorded In [...] Answer Date Recorded PHQ-2 Score 2 07/31/2023 [facility] [place] of Occupat ional Health - Occupational Stress [...] living situation today? I have a [facility] place to live 11/01/2023 Education Answer [...] AM CDT Clinical Communication Virtual Review in [place], [place] [address] [place] [phone] 11/15/2023 9:40 AM CDT Appointment Department of Laboratory Medicine and Pathology, [facility], in [place], [place] [address] [place] [phone] Lubna Mcmillan M.D. [address] [place] [phone] 11/15/2023 10:10 AM CDT Appointment Department of Cardiovascular Diseases in [place], [place] [address] [place] [phone] Lubna Mcmillan M.D. [address] [place] [phone] Discharge Disposition: Home or Self Care 11/15/2023 1:00 PM CDT Appointment Department of Cardiac Rehabilitation in [place], [place] [address] [place] [address] Lubna Mcmillan M.D. [address] [place] [phone] 11/15/2023 3:00 PM CDT Office Visit Department of Cardiovascular Medicine in [place], [place] [address] [place] [phone] Lubna Mcmillan M.D. [address] [place] [phone] 11/17/2023 2:00 PM CDT Comprehensive Visit Department of Family Medicine, [facility], in [address] [phone] Ro Norton APRN, C.N.P., D.N.P. [address] [place] [phone] 11/21/2023 11:00 AM CDT Office Visit Department of Family Medicine, [facility], in [address] [phone] Ro Norton APRN, C.N.P., D.N.P. [address] [place] [phone] documented as of this encounter Visit Diagnoses Diagnosis Screening Cancer Colon documented in this encounter Additional Health Concerns Infection Onset Date Last Indicated Resolved Time COVID19 Pending 10/30/2023 10/30/2023 10/30/2023 1 1:05 PM CDT COVID19 Pending 10/31/2023 10/31/2023 10/31/2023 3 :31 AM CDT documented as of this encounter Care Teams Logging Worker Relationship Specialty Start Date End Date Ro Norton APRN, C.N.P., D.N.P. [address] [phone] PCP - General Family Medicine 05/07/19 documented as of this encounter
--- OUTSIDE RECORDS SUMMARY | 2023-11-02 03:54 | XMS_ITS | Encounter Summary ---
Author Organization [facility] Address [address] [place] [id number] Care Team Providers Care Music Engraver Name Role Phone Ro Norton APRN, C.N.P., D.N.P. Primary Ca re Provider Reason for Visit * Auth/Cert (Routine) Specialty Diagnoses / Procedures Referred By Maria L t Referred To Contact Diagnoses Acute Respiratory Failure With Hypoxia (HCC) Hypoxic resp failure Procedures DIR Referral ID Status Reason Start Date Expiration Date Visits Re quested Visits Authorized [id number] 1 1 Encounter Details Date Type Department Care Team (Latest Contact Info) Description 10/31/2023 12:53 AM CDT - 11/01/2023 4:46 PM CDT Hospital Encounter [facility], [facility], [facility], Sixth Floor [address] [place] [phone] Whit Bhatti M.D. [address] [place] [phone] Jorge Sosa M.D. [address] [place] [phone] Acute Respiratory Failure With Hypoxia (HCC) (Primary Dx); Hypertension Pulmonary Primary (HCC) Discharge Disposition: Home or Self Care Social History Tobacco Use Types Packs/Day Years Used Date Smoking Tobacco: Every Day Cigarettes 0.5 30 Smokeless Tobacco: Never Comments:4-5 cigarettes a da y Alcohol Use Standard Drinks/Week Comments Not Currently 0 (1 standard drink = 0.6 oz pur e alcohol) ocassionally [facility] Utilities Answer Date Recorded In the past 12 months has e [employer], gas, oil, or water [employer] threatened to shut off services in your [...] Answer Date Recorded PHQ-2 Score 2 07/31/2023 [facility] [place] of Occupat ional Health - Occupational Stress [...] your living situation today? I have a [facility] place to live 11/01/2023 Education [...] PM CDT DISCHARGE SUMMARY BRIEF OVERVIEW Hospital: [facility] Discharge Provider: Whit Bhatti M.D. Primary Team: [facility] Medicine 1 Primary Care Providers: Ro Norton, MORGAN, C.N.PRaffy, DRaffy* (General) [address] [place] [phone] Primary Care Provider Primary Care Provider Other [...] prednisone (steroid) prescriptions have been sent to [facility] in [place]. Pleasepick them up tonight, 11/01/2023. - Start [...] back to your normal - Please call [phone] or the [facility] general number ([phone]) to schedule an appointment for gastroenterology at [...] Home medications: Held: vit C, Advair, lasix STAFFING RECRUITER: RASS 0, O x 3, pain 0 [...] contact (babysitting her grandkid). Patient lives in [place], and was transferred from [place] to [facility]. The patient's background medical history includes COPD [...] M.D. - 10/31/2023 12:51 AM CDT [facility] Medicine 1 H&P NOTE SUBJECTIVE Brief Summary: [...] inversions. Bedside ultrasound showed biventricular enlargement. Contacted [facility], who gave IV solu-medrol, lasix 0mg, rocephin, [...] / PLAN Ms. Schulz is hospitalized on [facility] Medicine 1 for evaluation and management of [...] Diet: low sodium diet. Plan discussed with [facility] Medicine 1 Paperhanger Contractor, Dr. Jorge López, who was present during rachel portions of the evaluation today. Please page the [facility] Medicine 1 [place] [phone] with any questions. Corin Chauhan MD Neurology PGY-1 Pager [phone] 10/31/23 12:51 AM CDT documented in this encounter Consult Notes * Chrystal Delgadillo M.S.W., LJose.S.W. - 11/01/2023 3:58 PM CDTAssociated Order(s): IP CONSULT TO CARE MANAGEMENT SUBJECTIVE Social Work met with the patient on [address] Room 520 to address the care management consult for home oxygen and discharge planning. The patient was sleeping but woke when social work entered the patients room. The patient confirmed that she has [facility] for her oxygen supply company. A reconnection was completed. The patient has new oxygen needs and will need a larger concentrator at home. [facility] was contacted and the soonest they could deliver a concentrator would be AM. The patient would like to discharge home today. [facility] is okay with patient picking up the larger concentrator on her way home to [place], [place]. The patient is being transported by [employer] ([phone]). Jaspreet at [employer] approved the extra stop at [facility]. He requested that [facility] be notified that there is an add-on (extra stop). [facility] that set up the transport was contacted and asked to contact [facility] about the add-on. The patient stated she will be fine getting into her home independently and that her daughter is home and can assist with the new concentrator. OBJECTIVE The patient resides in her [place] home with her adult daughter. The patient presented to [facility] ED on 10/31/23 due to hypoxia. She was transferred to [place] and admitted to the ICU on [address] due to a primary medical problem of Acute Respiratory Failure with Hypoxia. She is medically ready to discharge home and will be discharging from the ICU. [employer] will provide transportation. ASSESSMENT / PLAN ASSESSMENT The patient was oriented x 3. She appeared tired. Her thoughts were intact and linear. Her speech was within normal limits for volume, rhythm, and tone. PLAN - The patient will be discharging from the ICU to her [place] home today, 11/01/23. - The patient will be transported by [employer] ([phone]). - Patient has agreed to stop by [employer] on her way home and sampler pickup the larger concentrator that she needs. - Social Work will continue to follow for any new discharge needs. Oxygen Reconnect: Durable Medical Equipment - Admitted Since 10/31/2023 Service Provider Selected Services Address Phone Fax Patient Preferred [facility] Durable Medical Equipment [phone] [facility] [phone] -- Contact: [facility] : [...] 32 H BASE EXC ART 7 H So Riojas R.R.T., L.R.TRaffy 10/31/23 6:15 PM CDT [...] in the last 24hours. Kiki Hernandez R.R.T., Yanelis.R.T. 10/31/23 2:59 AM CDT documented in this [...] AM CDT Clinical Communication Virtual Review in [address] [phone] 11/15/2023 9:40 AM CDT Appointment Department of Laboratory Medicine and Pathology, [facility] in [address] [phone] Lubna Wren M.D. [address] [place] [phone] 11/15/2023 10:10 AM CDT Appointment Department of Cardiovascular Diseases in [address] [phone] Lubna Wren M.D. [address] [place] [phone] Discharge Disposition: Home or Self Care 11/15/2023 1:00 PM CDT Appointment Department of Cardiac Rehabilitation in [address] [phone] Lubna Wren M.D. [address] [place] [phone] 11/15/2023 3:00 PM CDT Office Visit Department of Cardiovascular Medicine in [place], [place] [address] [place] [address] Lubna Wren M.D. [address] [place] [address] 11/17/2023 2:00 PM CDT Comprehensive Visit Department of Family Medicine, [facility], in [address] [phone] Ro Norton APRN C.N.P., D.N.P. [address] [place] [phone] 11/21/2023 11:00 AM CDT Office Visit Department of Family Medicine, [facility], in [address] [phone] Ro Norton APRN, C.N.P., D.N.P. [address] [place] [phone] Scheduled Orders Name Type Priority Associated Diagnoses [...] 10/31/2023 2:58 AM CDT RESPIRATORY PANEL, PCR, MANAGER CUSTOM Routine 10/31/2023 2:18 AM CDT documented in this encounter Results * (ABNORMAL) Potassium (11/01/2023 7:17 AM CDT) Potassium, S 5.3(H) 3.6 - 5.2 mmol/L 11/01/2023 8:16 AM CDT DTL Comment: Specimen collected by special instruction procedure due to recurrent hemolysis. Blood 11/01/2023 7:17 AM CDT 11/01/2023 7:43 AM CDT Corin Chauhan M.D. LAB BLOOD ADD-ON Performing Organization Address [facility] Co de Phone Number [facility] [address] [place] [address], [facility] [address] [place] [address] * (ABNORMAL) AST (Aspartate Aminotransferase) (11/01/2023 7:17 [...] M.D. LAB BLOOD ADD-ON Performing Organization Address [facility] Co de Phone Number [facility] [address] [place] [address], [facility] [address] [place] [address] * Bilirubin, Direct (11/01/2023 7:17 AM CDT) Bilirubin, Direct, S 0.2 0.0 - 0.3 mg/dL 11/01/2023 8:16 AM CDT DTL Comment: Specimen collected by special instruction procedure due to recurrent hemolysis. Blood 11/01/2023 7:17 AM CDT 11/01/2023 7:43 AM CDT Corin Chauhan M.D. LAB BLOOD ADD-ON [facility] [address] [place] [address], [facility] DTL [facility] [address] [place] [address] * (ABNORMAL) CBC with Differential, Blood (11/01/2023 [...] CDT Corin Chauhan M.D. LAB BLOOD ADD-ON [facility] [address] [place] [address], [place] DTL [facility] [address] [place] [address] [facility] [address] [place] [address] * (ABNORMAL) HCV RNA Detect / Quant, Serum (11/01/2023 3:27 AM CDT) [facility] HCV RNA Detect/Quant, S 151460(A ) Undetected IU/mL 11/01/2023 1:32 PM CDT [facility] Comment: Result in log IU/mL is 5.72. ----ADDITIONAL INFORMATION---- The quantification range of this assay is 15 to 100,000,000 IU/mL (1.18 log to 8.00 log IU/mL). Testing was performed using the sandra HCV test ([employer] Blood (Blood, Venous) 11/01/2023 3:27 AM CDT 11/01/2023 8:12 AM CDT Sergei Palomares M.D. LAB MICROBIOLOGY - BLOOD ORDERABLES Performing Organization Address City/[facility]/ZIP Co de Phone Number [facility] [address] [place] [address] [facility] [address] [place] [address] [place] [address] * (ABNORMAL) Basic Metabolic Panel (11/01/2023 3:26 AM CDT) [facility] Potassium, S CANCELED mmol/L 11/01/2023 4:44 AM [...] 3:26 AM CDT 11/01/2023 3:56 AM CDT Coirn Chauhan M.D. LAB BLOOD ADD-ON [address] [address], [facility] [address] [address] * (ABNORMAL) Hepatic Function Panel (11/01/2023 3:26 [...] M.D. LAB BLOOD ADD-ON Performing Organization Address City/[facility]/[place] [address] * (ABNORMAL) Staph aureus / MRSA, Nasal, PCR (10/31/2023 2:27 PM CDT) Pathologist [facility] Staphylococcus aureus, PCR Positive(A) Negative 10/31/2023 4:08 PM CDT DTL MRSA, PCR Negative Negative 10/31/2023 4:08 PM CDT DTL Comment: Methicillin (oxacillin)-susceptible Staphylococcus aureus complex detected. Swab (Nares) 10/31/2023 2:27 PM CDT 10/31/2023 2:51 PM CDT Sergei Palomares M.D. LAB MICROBIOLOGY - GENERAL ORDERABLES Performing Organization Address City/[facility]/[place] [address] * (ABNORMAL) Hepatic Function Panel (10/31/2023 12:12 PM CDT) Pathologist [facility] Bilirubin, Total, S 0.6 0.0 - 1.2 mg/dL 10/31/2023 1:36 PM CDT DTL Bilirubin, Direct, S CANCELED mg/dL 10/21 2:01 PM CDT DTL Comment: Specimen was hemolyzed. Provider contacted at [phone] and asked to cancel without redraw. 10/31/2023 ?? 14:00 MACHINING DEPARTMENT SUPERVISOR Result canceled by the ancillary. Aspartate Aminotransferase (AST), S CANCELED U/L 10/31/2023 2:01 PM CDT DTL Comment: Specimen was hemolyzed. Provider contacted at [phone] and asked to cancel without redraw. 10/31/2023 ?? 14:00 MACHINING DEPARTMENT SUPERVISOR Result canceled by the ancillary. Alanine Aminotransferase [...] CDT Corin Chauhan M.D. LAB BLOOD ADD-ON [facility] [address] [place] [address], [facility] DTL [facility] [address] [place] [address] * CT Chest Angiogram and Pulmonary Arteries [...] to assess for resolution. Sergei Palomares M.D. [facility] CT PROCEDURES * (ABNORMAL) Basic Metabolic Panel (10/31/2023 3:14 AM CDT) Pathologist [facility] Potassium, S 5.0 3.6 - 5.2 [...] CDT Corin Chauhan M.D. LAB BLOOD ADD-ON [facility] [address] [place] [address], [facility] [address] [place] [address] * (ABNORMAL) CBC with Differential, Blood (10/31/2023 [...] CDT Corin Chauhan M.D. LAB BLOOD ADD-ON [facility] [address] [place] [address], [facility] DTL [facility] [address] [place] [address] [facility] [address] [place] [address] * Patient Status (10/31/2023 3:08 AM CDT) O2 Flow 10.0L L/min 10/31/2023 3:14 AM CDT [facility] Comment:REVISED RESULTS Device NC 10/31/2023 3:14 AM CDT [facility] Comment:REVISED RESULTS Spont. breaths/min 15 10/31/2023 3:14 AM CDT [facility] Comment:REVISED RESULTS Blood 10/31/2023 3:08 AM CDT 10/31/2023 3:08 AM CDT Corin Chauhan M.D. LAB BLOOD NON ADD-ON [facility] [address] [place], [place] [phone] [place] [address] 200 [place] [address] * (ABNORMAL) Blood Gas without Coox, Arterial [...] Corin Chauhan M.D. LAB BLOOD NON ADD-ON [facility] [address] [place] [address], [facility] [address] [place] [address] * (ABNORMAL) Erythropoietin (EPO) (10/31/2023 2:58 AM CDT) Erythropoietin (EPO), S 18.8(H) 2.6 - 18.5 mIU/mL 10/31/2023 10:11 AM CDT [facility] Blood 10/31/2023 2:58 AM CDT 10/31/2023 8:56 AM CDT Corin Chauhan M.D. LAB BLOOD ADD-ON [facility] [address] [place] [address] [facility] [address] [place] [address] * (ABNORMAL) Hepatic Function Panel (10/31/2023 2:58 [...] CDT Corin Chauhan M.D. LAB BLOOD ADD-ON [facility] [address] [place] [address], [place] DTL [facility] [address] [place] [address] * (ABNORMAL) Respiratory Panel, PCR, Nasopharyngeal (10/31/2023 [...] using the FDA-Cleared FilmArray Respiratory Panel 2.1 (Kiip). Swab (Nasopharynx) 10/31/2023 2:18 AM CDT 10/31/2023 2:35 AM CDT Corin Chauhan M.D. LAB MICROBIOLOGY - [facility] ORDERABLES Performing Organization Address City/State/[facility] Co de Phone Number [facility] 200 [place] [address], [facility] DTL [facility] 200 [place] [address] documented in this encounter Visit Diagnoses Diagnosis [...] indication: Opioid Use Disorder (OUD), Continuation of rgpee-rb-qsddqevkq therapy? Yes Given 10/31/2023 11:41 AM CDT 4 mg of buprenorphine buprenorphine-naloxo ne 4-1 mg per SL Film 4 mg of buprenorphine (Suboxone) 4 mg of buprenorphine (1 Film), sublingual, Once, On Mon10/31/23 at 1115, For 1 dose, Select indication: Opioid Use Disorder (OUD), Continuation of aczrx-oa-tqehuiczo therapy? Yes Given 10/31/2023 11:42 AM CDT 4 mg of buprenorphine buprenorphine-naloxo ne 8-2 mg per SL Film 8 mg of buprenorphine (Suboxone) 8 mg of buprenorphine (1 Film), sublingual, Daily, First dose on Mon11/01/23 at 0900, Select indication: Opioid Use Disorder (OUD), Continuation of aescg-xs-wprorajmo therapy? Yes Given 11/01/2023 9:24 AM CDT [...] Patient not of reproductive potential, Continuation of yozvm-ue-eqxuxqyxj therapy? Yes, Is the patient under the [...] chloride 0.65 % nasal spray 1 spray ([place]) 1 spray, each nostril, As needed, congestion, [...] indication: Opioid Use Disorder (OUD), Continuation of dgrvk-pa-fzgpqdnlw therapy? Yes 1141 (Given - Provider: Silvina Myers R.N.) buprenorphine-naloxone 4-1 mg per SL Film 4 mg of buprenorphine (Suboxone) (COMPLETED) 4 mg of buprenorphine (1 Film), sublingual, Once, On Mon10/31/23 at 1115, For 1 dose, Select indication: Opioid Use Disorder (OUD), Continuation of knqcv-tl-mnxjsdnsg therapy? Yes 1142 (Given - Provider: Silvina Myers R.N.) buprenorphine-naloxone 8-2 mg per SL Film 8 mg of buprenorphine (Suboxone) 8 mg of buprenorphine (1 Film), sublingual, Daily, First dose on Mon11/01/23 at 0900, Select indication: Opioid Use Disorder (OUD), Continuation of nkpal-nc-eqpxkbwaw therapy? Yes 923 (Given - Provid er: [...] Patient not of reproductive potential, Continuation of ltvrw-jv-ukczjuflw therapy? Yes, Is the patient under the [...] chloride 0.65 % nasal spray 1 spray ([place]) 1 spray, each nostril, As needed, congestion, dryness, Starting on Mon11/01/23 at 0211 0924 (Given - Provid er: Silvina Myers R.N.) documented in this encounter Additional Health Concerns Infection Onset Date Last Indicated Resolved Time COVID19 Pending 10/31/2023 10/31/2023 10/31/2023 3 :31 AM CDT documented as of this encounter Care Teams Music Engraver Relationship Specialty Start Date End Date Ro Norton APRN, C.N.P., D.N.P. [address] [phone] PCP - General Family Medicine 05/07/19 documented as of this encounter
--- OUTSIDE RECORDS SUMMARY | 2023-11-02 03:54 | XMS_ITS | Encounter Summary ---
Author Organization [facility] Address [address] [place] [address] Care Team Providers Care Bird Raiser Name Role Phone Ro Norton APRN, C.N.P., D.N.P. Primary Ca re Provider Encounter Details Date Type Department Care Team (Late st Contact Info) Description 09/27/2023 Patient Self-Triage CONNECTED [facility] Symptom Welder Apprentice Arc, Provider Social History Tobacco Use Types Packs/Day Years Used Date Smoking Tobacco: Every Day Cigarettes 0.5 30 Smokeless Tobacco: Never Comments:4-5 cigarettes a da y Alcohol Use Standard Drinks/Week Comments Not Currently 0 (1 standard drink = 0.6 oz pur e alcohol) ocassionally [facility] Utilities Answer Date Recorded In the past 12 months has e [employer], gas, oil, or water [employer] threatened to shut off services in your [...] often do you attend chur ch or orthodox services? Never 03/25/2022 Do you belong to any clubs o r organizations such as hindu groups, unions, fraternal [...] Answer Date Recorded PHQ-2 Score 2 07/31/2023 [facility] - [facility]ational [facility] Questionnaire Answer Date [...] your living situation today? I have a [facility] place to live 06/06/2023 Education [...] AM CDT Clinical Communication Virtual Review in [place], [place] [address] [place] [address] 11/15/2023 9:40 AM CDT Appointment Department of Laboratory Medicine and Pathology, [facility] in [place], [place] [address] [place] [phone] Lubna Mcmillan M.D. [address] [place] [phone] 11/15/2023 10:10 AM CDT Appointment Department of Cardiovascular Diseases in [place], [place] [address] [place] [phone] Lubna Mcmillan M.D. [address] [place] [phone] Discharge Disposition: Home or Self Care 11/15/2023 1:00 PM CDT Appointment Department of Cardiac Rehabilitation in [place], [place] [address] [place] [address] Lubna Mcmillan M.D. [address] [place] [address] 11/15/2023 3:00 PM CDT Office Visit Department of Cardiovascular Medicine in [place], [place] [address] [place] [address] Lubna Mcmillan M.D. [address] [place] [phone] 11/17/2023 2:00 PM CDT Comprehensive Visit Department of Family Medicine, [facility], in [address] [phone] Ro Norton APRN, C.N.P., D.N.P. [address] [place] [phone] 11/21/2023 11:00 AM CDT Office Visit Department of Family Medicine, [facility], in [address] [phone] Ro Norton APRN, C.N.P., D.N.P. [address] [place] [phone] documented as of this encounter Visit Diagnoses Not on filedocumented in this encounter Care Teams Bird Raiser Relationship Specialty Start Date End Date Ro Norton APRN C.N.P., D.N.P. [address] [place] [phone] PCP - General Family Medicine 05/07/19 documented as of this encounter
--- OUTSIDE RECORDS SUMMARY | 2023-11-02 03:55 | XMS_ITS | Encounter Summary ---
Author Organization [facility] Address [address] [place] [address] Care Team Providers Care Materials Handling Coordinator Name Role Phone Ro Norton APRN, C.N.P., D.N.P. Primary Ca re Provider Reason for Visit * Reason Comments tooth infection Encounter Details Date Type Department Care Team (Late st Contact Info) Description 09/07/2023 1:30 PM CDT Telemedicine Department of Family Medicine, [facility], in [place], [place] [address] [place] [phone] Valentin Andrea M.D. [address] [place] [phone] Pain Teeth (Primary Dx) Discharge Disposition: Home or Self Care Social History Tobacco Use Types Packs/Day Years Used Date Smoking Tobacco: Every Day Cigarettes 0.5 30 Smokeless Tobacco: Never Comments:4-5 cigarettes a da y Alcohol Use Standard Drinks/Week Comments Not Currently 0 (1 standard drink = 0.6 oz pur e alcohol) ocassionally [facility] Utilities Answer Date Recorded In the past 12 months has e [employer], gas, oil, or water [employer] threatened to shut off services in your [...] How often do you attend chur or latter day services? Never 03/25/2022 Do you belong to any clubs o r organizations such as denominational groups, unions, fraternal [...] Answer Date Recorded PHQ-2 Score 2 07/31/2023 [facility] [place] of Occupat ional Health - Occupational Stress [...] your living situation today? I have a [facility] place to live 06/06/2023 Education Answer [...] AM CDT Clinical Communication Virtual Review in [place], [place] [address] [place] [address] 11/15/2023 9:40 AM CDT Appointment Department of Laboratory Medicine and Pathology, [facility] in [address] [phone] Lubna Mcmillan M.D. [address] [place] [phone] 11/15/2023 10:10 AM CDT Appointment Department of Cardiovascular Diseases in [address] [phone] Lubna Mcmillan M.D. [address] [place] [phone] Discharge Disposition: Home or Self Care 11/15/2023 1:00 PM CDT Appointment Department of Cardiac Rehabilitation in [address] [phone] Lubna Mcmillan M.D. [address] [place] [address] 11/15/2023 3:00 PM CDT Office Visit Department of Cardiovascular Medicine in [place], [place] [address] [place] [phone] Lubna Mcmillan M.D. [address] [place] [address] 11/17/2023 2:00 PM CDT Comprehensive Visit Department of Family Medicine, [facility], in [address] [phone] Ro Norton APRN, C.N.P., D.N.P. [address] [place] [phone] 11/21/2023 11:00 AM CDT Office Visit Department of Family Medicine, [facility], in [address] [phone] Ro Norton APRN, C.N.P., D.N.P. [address] [place] [phone] documented as of this encounter Visit Diagnoses Diagnosis Pain Teeth- Primary documented in this encounter Care Teams Materials Handling Coordinator Relationship Specialty Start Date End Date Ro Norton APRN, C.N.P., D.N.P. [address] [place] [phone] PCP - General Family Medicine 05/07/19 documented as of this encounter
--- OUTSIDE RECORDS SUMMARY | 2023-11-02 03:55 | XMS_ITS | Encounter Summary ---
Author Organization [facility] Address [address] [place] [address] Care Team Providers Care Well Services Operator Name Role Phone Ro Norton APRN, C.N.P., D.N.P. Primary Ca re Provider Encounter Details Date Type Department Care Team (Late st Contact Info) Description 08/22/2023 Orders Only [facility] [address] [phone] Karine Coles, Pharm.D., R.Ph. [address] [place] [phone] Social History Tobacco Use Types Packs/Day Years Used Date Smoking Tobacco: Every Day Cigarettes 0.5 30 Smokeless Tobacco: Never Comments:4-5 cigarettes a da y Alcohol Use Standard Drinks/Week Comments Not Currently 0 (1 standard drink = 0.6 oz pur e alcohol) ocassionally [facility] Utilities Answer Date Recorded In the past [...] How often do you attend chur or alevism services? Never 03/25/2022 Do you belong to any clubs o r organizations such as pentecostal groups, unions, fraternal [...] Answer Date Recorded PHQ-2 Score 2 07/31/2023 [facility] [place] of Occupat ional Health - Occupational Stress [...] your living situation today? I have a [facility] place to live 06/06/2023 [...] AM CDT Clinical Communication Virtual Review in [place], [place] [address] [place] [address] 11/15/2023 9:40 AM CDT Appointment Department of Laboratory Medicine and Pathology, [facility], in [place], [place] [address] [place] [phone] Lubna Mcmillan M.D. [address] [place] [phone] 11/15/2023 10:10 AM CDT Appointment Department of Cardiovascular Diseases in [place], [place] [address] [place] [phone] Lubna Mcmillan M.D. [address] [place] [phone] Discharge Disposition: Home or Self Care 11/15/2023 1:00 PM CDT Appointment Department of Cardiac Rehabilitation in [place], [place] [address] [place] [phone] Lubna Mcmillan M.D. [address] [place] [phone] 11/15/2023 3:00 PM CDT Office Visit Department of Cardiovascular Medicine in [place], [place] [address] [place] [phone] Lubna Mcmillan M.D. [address] [place] [phone] 11/17/2023 2:00 PM CDT Comprehensive Visit Department of Family Medicine, [facility], in [address] [phone] Ro Norton APRN, C.N.P., D.N.P. [address] [place] [phone] 11/21/2023 11:00 AM CDT Office Visit Department of Family Medicine, [facility], in [address] [phone] Ro Norton APRN, C.N.P., D.N.P. [address] [place] [phone] documented as of this encounter Visit Diagnoses Not on filedocumented in this encounter Care Teams Well Services Operator Relationship Specialty Start Date End Date Ro Norton APRN, C.N.P., D.N.P. [address] [phone] PCP - General Family Medicine 05/07/19 documented as of this encounter
--- OUTSIDE RECORDS SUMMARY | 2023-11-02 03:55 | XMS_ITS | Encounter Summary ---
Author Organization [facility] Address [address] [place] [address] Care Team Providers Care Ore Grader Name Role Phone Ro Norton APRN, C.N.P., [...] Telemedicine Department of Family Medicine, [facility], in [address] [phone] Corina Nur M.D. [address] [place] [phone] Chronic Obstructive Pulmonary Disease Exacerbation (HCC) Discharge [...] = 0.6 oz pur e alcohol) ocassionally [facility] Utilities Answer Date Recorded In the past 12 months has [employer], gas, oil, or water company threatened to [...] How often do you attend chur or moravian services? Never 03/25/2022 Do you belong to any clubs o r organizations such as congregational groups, unions, fraternal [...] Answer Date Recorded PHQ-2 Score 2 07/31/2023 [facility] [place] of Occupat ional Health - Occupational Stress [...] your living situation today? I have a [facility] place to live 06/06/2023 Education [...] technology by Corina Nur M.D. in [facility] to the patient in the patient's home. [...] not improve with prednisone, advised in-person follow-up. Croina Nur M.D. documented in this encounter Plan of Treatment Upcoming Encounters Date Type Department Care Team (Latest Contact Info) Description 11/08/2023 11:30 AM CDT Clinical Communication Virtual Review in [place], [place] 200 [place] [address] 11/15/2023 9:40 AM CDT Appointment Department of Laboratory Medicine and Pathology, [facility] in [place], [place] [address] [place] [phone] Lubna Mcmillan M.D. [address] [place] [phone] 11/15/2023 10:10 AM CDT Appointment Department of Cardiovascular Diseases in [place], [place] [address] [place] [phone] Lubna Mcmillan M.D. [address] [place] [phone] Discharge Disposition: Home or Self Care 11/15/2023 1:00 PM CDT Appointment Department of Cardiac Rehabilitation in [place], [place] [address] [place] [phone] Lubna Mcmillan M.D. [address] [place] [phone] 11/15/2023 3:00 PM CDT Office Visit Department of Cardiovascular Medicine in [place], [place] [address] [place] [phone] Lubna Mcmillan M.D. [address] [place] [phone] 11/17/2023 2:00 PM CDT Comprehensive Visit Department of Family Medicine, [facility], in [address] [phone] Ro Norton APRN, C.NDean, D.N.P. [address] [place] [phone] 11/21/2023 11:00 AM CDT Office Visit Department of Family Medicine, [facility], in [address] [place] [phone] Ro Norton APRN, C.NDean, D.N.P. [address] [place] [address], [place] [phone] documented as of this encounter Visit Diagnoses Diagnosis Chronic Obstructive Pulmonary Disease Exacerbation (HCC) documented in this encounter Care Teams Ore Grader Relationship Specialty Start Date End Date Ro Norton APRN, C.NLisandro., D.N.P. [address] [place] [phone] PCP - General Family Medicine 05/07/19 documented as of this encounter
--- OUTSIDE RECORDS SUMMARY | 2023-11-02 03:55 | XMS_ITS | Encounter Summary ---
Author Organization [facility] Address [address] [place] [address] Care Team Providers Care Dramatic Reader Name Role Phone Ro Norton APRN, C.N.P., D.N.P. Primary Ca re Provider Reason for Visit * Reason Comments Infection Encounter Details Date Type Department Care Team (Late st Contact Info) Description 08/14/2023 9:30 AM CDT Telemedicine Department of Family Medicine, [facility], in [place], [place] [address] [place] [phone] Tc Bee D.O. [address] [place] [phone] Pain Teeth (Primary Dx) Discharge Disposition: Home or Self Care Social History Tobacco Use Types Packs/Day Years Used Date Smoking Tobacco: Every Day Cigarettes 0.5 30 Smokeless Tobacco: Never Comments:4-5 cigarettes a da y Alcohol Use Standard Drinks/Week Comments Not Currently 0 (1 standard drink = 0.6 oz pur e alcohol) ocassionally [facility] Utilities Answer Date Recorded In the past 12 months has e [employer], gas, oil, or water [email or web address] threatened to shut off services in your [...] How often do you attend chur or mormonism services? Never 03/25/2022 Do you belong to any clubs o r organizations such as bahai groups, unions, fraternal [...] Answer Date Recorded PHQ-2 Score 2 07/31/2023 [facility] [place] of Occupat ional Health - Occupational Stress [...] your living situation today? I have a [facility] place to live 06/06/2023 Education Answer [...] at her home I am in the [facility]. HISTORY OF PRESENT ILLNESS Ms. Schulz [...] AM CDT Clinical Communication Virtual Review in [place], [place] 200 [place] [address] 11/15/2023 9:40 AM CDT Appointment Department of Laboratory Medicine and Pathology, [facility], in [place], [place] [address] [place] [phone] Lubna Mmcillan M.D. [address] [place] [phone] 11/15/2023 10:10 AM CDT Appointment Department of Cardiovascular Diseases in [place], [place] [address] [place] [phone] Lubna Mcmillan M.D. [address] [place] [phone] Discharge Disposition: Home or Self Care 11/15/2023 1:00 PM CDT Appointment Department of Cardiac Rehabilitation in [place], [place] [address] [place] [phone] Lubna Mcmillan M.D. [address] [place] [phone] 11/15/2023 3:00 PM CDT Office Visit Department of Cardiovascular Medicine in [place], [place] [address] [place] [phone] Lubna Mcmillan M.D. [address] [place] [phone] 11/17/2023 2:00 PM CDT Comprehensive Visit Department of Family Medicine, [facility], in [address] [phone] Ro Norton APRN, C.N.P., D.N.P. [address] [place] [phone] 11/21/2023 11:00 AM CDT Office Visit Department of Family Medicine, [facility], in [address] [phone] Ro Norton APRN, C.N.P., D.N.P. [address] [place] [phone] documented as of this encounter Visit Diagnoses Diagnosis Pain Teeth- Primary documented in this encounter Care Teams Dramatic Reader Relationship Specialty Start Date End Date Ro Norton APRN, C.N.P., D.N.P. [address] [place] [phone] PCP - General Family Medicine 05/07/19 documented as of this encounter
--- OUTSIDE RECORDS SUMMARY | 2023-11-02 03:55 | XMS_ITS | Encounter Summary ---
Author Organization [facility] Address [address] [place] [address] Care Team Providers Care Oleomargarine Maker Name Role Phone Ro Norton APRN, C.N.PRaffy, D.N.P. Primary Ca re Provider Reason for Referral * Medication Prior Authorization - Denied Specialty Diagnoses / Procedures Referred By Maria L t Referred To Contact Ro Norton APRN, C.N.P., D.N.P. [address] [place] [phone] Referral ID Status Reason Start Date Expiration Date Visits Re quested Visits Authorized [id number] Denied 1 1 Reason for Visit * Reason Comments Med Refill Encounter Details Date Type Department Care Team (Late st Contact Info) Description 08/25/2023 Refill Department of Family Medicine, [facility], in [address] [phone] Ro Norton APRN, Bolivar.N.P., D.N.P. [address] [place] [phone] Med Refill Social History Tobacco Use Types Packs/Day Years Used Date Smoking Tobacco: Every Day Cigarettes 0.5 30 Smokeless Tobacco: Never Comments:4-5 cigarettes a da y Alcohol Use Standard Drinks/Week Comments Not Currently 0 (1 standard drink = 0.6 oz pur e alcohol) ocassionally [facility] Utilities Answer Date Recorded In the past 12 months has th e [employer], gas, oil, or water company threatened to [...] often do you attend chur ch or anglican services? Never 03/25/2022 Do you belong to [...] Answer Date Recorded PHQ-2 Score 2 07/31/2023 [facility] [place] of Occupat ional Health - Occupational Stress [...] AM CDT Clinical Communication Virtual Review in [place], [place] [address] [place] [phone] 11/15/2023 9:40 AM CDT Appointment Department of Laboratory Medicine and Pathology, [facility] in [place], [place] [address] [place] [phone] Lubna Mcmillan M.D. [address] [place] [phone] 11/15/2023 10:10 AM CDT Appointment Department of Cardiovascular Diseases in [place], [place] [address] [place] [phone] Lubna Mcmillan M.D. [address] [place] [phone] Discharge Disposition: Home or Self Care 11/15/2023 1:00 PM CDT Appointment Department of Cardiac Rehabilitation in [place], [place] [address] [place] [phone] Lubna Mcmillan M.D. [address] [place] [phone] 11/15/2023 3:00 PM CDT Office Visit Department of Cardiovascular Medicine in [place], [place] [address] [place] [phone] Lubna Mcmillan M.D. [address] [place] [phone] 11/17/2023 2:00 PM CDT Comprehensive Visit Department of Family Medicine, [facility], in [address] [phone] Ro Norton APRN, C.NRaffyP., D.N.P. [address] [place] [address], [place] [phone] 11/21/2023 11:00 AM CDT Office Visit Department of Family Medicine, [facility], in [address] [place] [phone] Ro Norton APRN, C.N.Kirsty, D.N.P. [address] [place] [phone] documented as of this encounter Visit Diagnoses Not on filedocumented in this encounter Care Teams Oleomargarine Maker Relationship Specialty Start Date End Date Ro Norton APRN, C.N.Taylor., D.N.P. [address] [place] [phone] PCP - General Family Medicine 05/07/19 documented as of this encounter
--- OUTSIDE RECORDS SUMMARY | 2023-11-02 03:55 | XMS_ITS | Encounter Summary ---
Author Organization [facility] Address [address] [place] [address] Care Team Providers Care Director Of Industrial Relations Name Role Phone Ro Norton APRN, C.N.P., D.N.P. Primary Ca re Provider Reason for Visit * Reason Comments Med Refill Encounter Details Date Type Department Care Team (Late st Contact Info) Description 08/21/2023 Refill Department of Cardiovascular Medicine in [place], [place] [address] [place] [phone] Lubna Mcmillan M.D. [address] [place] [phone] Med Refill Social History Tobacco Use Types Packs/Day Years Used Date Smoking Tobacco: Every Day Cigarettes 0.5 30 Smokeless Tobacco: Never Comments:4-5 cigarettes a da y Alcohol Use Standard Drinks/Week Comments Not Currently 0 (1 standard drink = 0.6 oz pur e alcohol) ocassionally [facility] Utilities Answer Date Recorded In the [...] any clubs o r organizations such as sikhism groups, unions, fraternal [...] 2 07/31/2023 [facility] [place] of Occupat ional Health - Occupational Stress [...] your living situation today? I have a [facility] place to live 06/06/2023 Education Answer [...] Receipt confirmed by pharmacy (04/21/2023 4:04 PM SWITCHBOARD CLERK) No prior authorization was found for this prescription. Found prior authorization for another prescription for the same medication: Approved Pharmacy [facility] [place] [place] - [address] [facility] documented in this encounter Plan of Treatment Upcoming Encounters Date Type Department Care Team (Latest Contact Info) Description 11/08/2023 11:30 AM CDT Clinical Communication Virtual Review in [place], [place] 200 [place] [address] 11/15/2023 9:40 AM CDT Appointment Department of Laboratory Medicine and Pathology, [facility] in [address] [phone] Lubna Mcmillan M.D. [address] [place] [phone] 11/15/2023 10:10 AM CDT Appointment Department of Cardiovascular Diseases in [address] [phone] Lubna Mcmillan M.D. [address] [place] [phone] Discharge Disposition: Home or Self Care 11/15/2023 1:00 PM CDT Appointment Department of Cardiac Rehabilitation in [address] [phone] Lubna Mcmillan M.D. [address] [place] [phone] 11/15/2023 3:00 PM CDT Office Visit Department of Cardiovascular Medicine in [address] [phone] Lubna Mcmillan M.D. [address] [place] [phone] 11/17/2023 2:00 PM CDT Comprehensive Visit Department of Family [facility], [facility], in [address] [phone] Ro Norton APRN, C.N.P., D.N.P. [address] [place] [phone] 11/21/2023 11:00 AM CDT Office Visit Department of Family [facility], [facility], in [address] [phone] Ro Norton APRN, Bolivar.N.P., D.N.P. [address] [place] [phone] documented as of this encounter Visit Diagnoses Not on filedocumented in this encounter Care Teams Director Of Industrial Relations Relationship Specialty Start Date End Date Ro Norton APRN C.N.P., D.N.P. [address] [place] [phone] PCP - General Family Medicine 05/07/19 documented as of this encounter
--- OUTSIDE RECORDS SUMMARY | 2023-11-02 03:55 | XMS_ITS | Encounter Summary ---
Author Organization [facility] Address [address] [place] [address] Care Team Providers Care Advertising Writer Name Role Phone Ro Norton APRN, C.N.P., D.N.P. Primary Ca re Provider Reason for Visit * Reason Comments Med Refill Encounter Details Date Type Department Care Team (Late st Contact Info) Description 07/23/2023 Refill Department of Family Medicine, [facility], in [address] [phone] Ro Norton APRN, C.N.P., D.N.P. [address] [place] [phone] Med Refill Social History Tobacco Use Types Packs/Day Years Used Date Smoking Tobacco: Every Day Cigarettes 0.5 30 Smokeless Tobacco: Never Comments:4-5 cigarettes a da y Alcohol Use Standard Drinks/Week Comments Not Currently 0 (1 standard drink = 0.6 oz pur e alcohol) ocassionally [facility] Utilities Answer Date Recorded In the past 12 months has e [employer], gas, oil, or water [employer] threatened to shut off services in your [...] Answer Date Recorded PHQ-2 Score 1 06/06/2023 [facility] [place] [place] of Occupat ional Health - Occupational Stress [...] AM CDT Clinical Communication Virtual Review in [place], [place] [address] [place] [phone] 11/15/2023 9:40 AM CDT Appointment Department of Laboratory Medicine and Pathology, [facility], in [place], [place] [address] [place] [phone] Lubna Mcmillan M.D. [address] [place] [phone] 11/15/2023 10:10 AM CDT Appointment Department of Cardiovascular Diseases in [place], [place] [address] [place] [phone] Lubna Mcmillan M.D. [address] [place] [phone] Discharge Disposition: Home or Self Care 11/15/2023 1:00 PM CDT Appointment Department of Cardiac Rehabilitation in [place], [place] [address] [place] [phone] Lubna Mcmillan M.D. [address] [place] [phone] 11/15/2023 3:00 PM CDT Office Visit Department of Cardiovascular Medicine in [place], [place] [address] [place] [phone] Lubna Mcmillan M.D. [address] [place] [phone] 11/17/2023 2:00 PM CDT Comprehensive Visit Department of Family Medicine, [facility], in [address] [phone] Ro Norton APRN, C.N.P., D.N.P. [address] [place] [phone] 11/21/2023 11:00 AM CDT Office Visit Department of Family Medicine, [facility], in [address] [phone] Ro Norton APRN, C.N.P., D.N.P. [address] [place] [address] [place] [phone] documented as of this encounter Visit Diagnoses Not on filedocumented in this encounter Care Teams Advertising Writer Relationship Specialty Start Date End Date Ro Norton APRN C.N.P., D.N.P. [address] [phone] PCP - General Family Medicine 05/07/19 documented as of this encounter
[2023-11-02] MEDS: IPRAT-ALBUT 0.5-2.5 MG/3 ML NEB 1 NEB IH (03:59)
[2023-11-02] MEDS: LORazepam 2 MG/ML inj 1 MG IVP (03:59)
[2023-11-02] MEDS: ALBUTEROL SULFATE 2.5 MG/3 ML VIAL.NEB NEB (05:11)
== END 2023-11-02 10:34 | disposition home or self-care (01) ==
PROVIDERS: Emergency Provider Emergency Medicine; PCP Nurse Practitioner Family
DX: J44.1 Chronic obstructive pulmonary disease with (acute) exacerbation (principal)
CPT/HCPCS: 94640; 94761; 96374; 99283; 99284; J2060

== ENCOUNTER 2024-05-17 00:02 | Emergency (ER) | payer MEDICAID, SELFPAY ==
--- OUTSIDE RECORDS SUMMARY | 2024-05-17 00:05 | XMS_ITS | Encounter Summary ---
Author Organization [facility] Address [address] [place] [phone] Care Team Providers Care Sales Support Manager Name Role Phone Ro Norton APRN, C.N.P., D.N.P. Primary Ca re Provider Unavailable Encounter Details Date Type Department Care Team (Late st Contact Info) Description 05/01/2024 Orders Only Division of Gastroenterology in [place], [place] [address] [place] [phone] Birdie Nielsen M.D. [address] [place] [phone] Social History Tobacco Use Types Packs/Day Years Used Date Smoking Tobacco: Every Day Cigarettes 0.5 30 Passive Smoke Exposure: Never Smokeless Tobacco: Never Comments:4-5 cigarettes a da y Alcohol Use Standard Drinks/Week Comments Not Currently 0 (1 standard drink = 0.6 oz pur e alcohol) ocassionally [facility] Utilities Answer Date Recorded In the past 12 months has e [employer], gas, oil, or water [employer] threatened to shut off services in your [...] often do you attend chur ch or jehovah's witness services? Never 03/25/2022 Do you belong to any clubs o r organizations such as zoroastrian groups, unions, fraternal [...] a drink containing alc ohol? Never 03/25/2022 Average Number of Drinks Not on file 023 Frequency of Binge Drinking Not on file 04/2022 Overall Financial Resource Strain (CARDIA) Answe r [...] your living situation today? I have a [facility] place to live 11/01/2023 Education Answer Date Recorded What is the highest level of school you have completed or the highest degree you have received? 12th grade 11/13/2019 Comments No Sex and Gender Information Value Date Recorded Sex Assigned at Female 10/14/2020 12:54 PM CDT Legal Sex Female 1:36 PM CDT Gender Identity Female 09/11/2019 2:43 PM CDT Sexual Orientation Straight 09/11/2019 2: 43 PM CDT documented as of this encounter Plan of Treatment Upcoming Encounters Date Type Department Care Team (Latest Contact Info) Description 05/23/2024 3:30 PM CDT Comprehensive Visit Department of Obstetrics and Gynecology in [address] [phone] Aniya Toledo, EXPERIENCE PLANNING STRATEGIST, C.N.P., [facility]- [address] [place] [phone] Discharge Disposition: Home or Self Care documented as of this encounter Visit Diagnoses Not on filedocumented in this encounter Care Teams Sales Support Manager Relationship Specialty Start Date End Date Ro Norton APRN, C.N.P., D.N.P. PCP - General Family Medicine 05/07/19 documented as of this encounter
--- OUTSIDE RECORDS SUMMARY | 2024-05-17 00:05 | XMS_ITS | Encounter Summary ---
Author Organization [facility] Address [address] [place] [address] Care Team Providers Care Contract Paralegal Name Role Phone Ro Norton APRN, C.N.P., [...] oz pur e alcohol) ocassionally [facility] Utilities Answer Date Recorded In the past 12 months has e [employer], gas, oil, or water [employer] threatened to shut off services in your [...] Answer Date Recorded PHQ-2 Score 2 07/31/2023 [facility] of Occupat ional Health - Occupational Stress [...] PM CDT documented as of this encounter Functional Status * Intimate Partner Violence Question Answer Date of Assessment Author Within the last year, have you been humiliated or emotionally abused in other ways by your partner or ex-partner? No 11/01/2023 4:23 PM CDT Mirza Myers R, R.N. Within the last year, have you been afraid of your partner or ex-partner? No 11/01/2023 4:23 PM CDT Corin Myers R, R.N. Within the last year, have you been raped or forced to have any kind of sexual activity by your partner or ex-partner? No 11/01/2023 4:23 PM CDT Mirza Myers, R.N. Within the last year, have you been kicked, hit, slapped, or otherwise physically hurt by your partner or ex-partner? No 11/01/2023 4:23 PM CDT Corin Myers, R.N. documented as of this encounter Plan of Treatment Upcoming Encounters Date Type Department Care Team (Latest Contact Info) Description 05/23/2024 3:30 PM CDT Comprehensive Visit Department of Obstetrics and Gynecology in [address] [place] [phone] Aniya Toledo APRN, C.N.P., [facility] [address] [place] [address] RICH Nazario [phone] Discharge Disposition: Home or Self Care documented as of this encounter Visit Diagnoses Not on filedocumented in this encounter Additional Health Concerns Infection Onset Date Last Indicated Resolved Time COVID19 Pending 10/30/2023 10/30/2023 10/30/2023 1 1:05 PM CDT COVID19 Pending 10/31/2023 10/31/2023 10/31/2023 3 :31 AM CDT documented as of this encounter Care Teams Contract Paralegal Relationship Specialty Start Date End Date Ro Norton APRN, C.N.P., D.N.P. PCP - General Family Medicine 05/07/19 documented as of this encounter
--- OUTSIDE RECORDS SUMMARY | 2024-05-17 00:06 | XMS_ITS | Encounter Summary ---
Author Organization [facility] Address [address] [place] [address] Care Team Providers Care Lead Advisor Name Role Phone Ro Norton APRN, C.N.P., D.N.P. Primary Ca re Provider Unavailable Reason for Referral * Outpatient (Routine) - Closed Specialty Diagnoses / Procedures Referred By Maria L plummer Referred To Contact Diagnoses Hypertension Pulmonary (HCC) Procedures Six Minute Walk Lubna Mcmillan M.D. [address] [place] [address] Phone: tel: fax: [facility] Referral ID Status Reason Start Date Expiration Date Visits Re quested Visits Authorized [id number] Closed 03/05/2024 03/05/2025 1 1 Reason for Visit * Outpatient (Routine) - Closed Specialty Diagnoses / Procedures Referred By Maria L plummer Referred To Contact Diagnoses Hypertension Pulmonary (HCC) Procedures Six Minute Walk Lubna Mcmillan M.D. [address] [place] [address] Phone: tel: fax: [facility] Referral ID Status Reason Start Date Expiration Date Visits Re quested Visits Authorized [id number] Closed 03/05/2024 03/05/2025 1 1 Encounter Details Date Type Department Care Team (Latest Contact Info) Description 05/01/2024 1:16 PM CDT - 05/01/2024 11:59 PM CDT Hospital Encounter Department of Cardiac Rehabilitation in [place], [place] 200 [place] [phone] Lubna Mcmillan M.D. 200 [place] [phone] Hypertension Pulmonary (HCC) Discharge Disposition: Home or Self Care Social History Tobacco Use Types Packs/Day Years Used Date Smoking Tobacco: Every Day Cigarettes 0.5 30 Passive Smoke Exposure: Never Smokeless Tobacco: Never Comments:4-5 cigarettes a da y Alcohol Use Standard Drinks/Week Comments Not Currently 0 (1 standard drink = 0.6 oz pur e alcohol) ocassionally [facility] Utilities Answer Date Recorded In the past 12 months has e [employer], gas, oil, or water [employer] threatened to shut off services in your [...] often do you attend chur ch or hindu services? Never 03/25/2022 Do you belong to [...] Answer Date Recorded PHQ-2 Score 2 07/31/2023 [facility] [place] of Occupat ional Health - Occupational [...] Date Recorded Dental: Regular Dentist Yes 02/25/19 22 Employment Answer Date Recorded Employment status Permanently disabled 04/16/202 4 Housing Stability Answer Date Recorded What [...] this encounter Medications at Time of Discharge albuterol 90 mcg/actuation inhaler INHALE 2 PUFFS BY MOUTH FOUR TIMES A DAY 54 g 3 07/25/2023 amoxicillin-pot clavulanate (Augmentin) 875-125 mg per tablet Take 1 tablet by mouth 2 (two) times a day. 20 tablet 12/07/2023 DME OxygenIndications :Acute Respiratory Failure With Hypoxia (HCC),Hypertensio n Pulmonary Primary (HCC) DME Order - for details see Order Report 1 each 11/01/2023 fluticasone propion-salmetero L (Advair Diskus) 250-50 mcg/dose diskus inhaler Inhale [...] Plus Sidestream device See Admin Instructions. 11/18/2022 multivitamin capsule Take 1 capsule by mouth daily. Opsumit 10 mg tablet Take 1 tablet daily. 30 tablet 11 03/18/2024 sildenafil (Revatio) 20 mg tablet Take 1 tablet (20 mg total) by mouth 3 (three) times a day. 90 tablet 11 08/22/2023 ipratropium-albut Selene (DuoNeb) 0.5-2.5 mg/3 mL nebulizer solution USE 3 ML VIA NEBULIZER FOUR TIMES DAILY 180 mL 11 01/23/2024 documented as of this encounter Procedure Notes * Sean Lewis CRAT - 05/01/2024 1:30 PM CDTAssociated Order(s): Six Minute Walk Pre-Procedure Diagnose(s): Hypertension Pulmonary (HCC) Post-Procedure Diagnose(s): Hypertension Pulmonary (HCC) Six Minute Walk Performed by: Sean Lewis CRAT Authorized by: Lubna Mcmillan M.D. Were medications taken in the last 24 hours?: yes PRE WALK Assistive Device: None 6 Min Walk Distance Type: Track Height (cm): 170 Weight (kg): 65 BMI: 22.5 Resting Heart Rate: 76 Heart Rate Source: Pulse Oximeter Resp Rate: Resting SpO2: 83 SpO2 Site: Forehead Resting BP: 92/60 BP Cuff Arm: Left BP Cuff Size: RegularSupplemental Oxygen used: Supplemental Oxygen Not Used Angina Scale: 0 - No Angina Jesse Dyspnea: 0 - Nothing at all Jesse Fatigue: 0.5 - Very, Very Slight POST WALK Heart Rate: 88 Heart Rate Source: Pulse Oximeter SpO2: 80 BP: 116/62 BP Cuff Side: Left Angina Scale: 0 - No Angina Jesse Dyspnea: 1 - Very Slight Jesse Fatigue: 0.5 - Very, Very Slight Time of Test: 13:20 CDT Total Distance Walked (Feet): 1120 Total Distance Walked (Meters): 341.38 Total # of Times Stopped: 0 Time Stopped (Seconds): 0 Time Walked (Seconds): 360 CALCULATIONS Estimated MPH: 2.1 Estimated METs: 2.61 % of Predicted Distance: 58.93 COMMENTS Patient's base line SpO2 was 84%. At the end of the walk test, SpO2 was at 80%. After resting for 2-3 minutes, SpO2 was back up to 83%. Cosigned by Candie Graham M.D., Ph.D. at 05/01/2024 2:50 PM CDT Associated attestation - Candie Graham M.D., Ph.D. - 05/01/2024 2:50 PM CDT Interpretation: Six minute walk data was reviewed. Blood pressure and heart rate responded appropriately during the test. Oxygen saturation was low at baseline (at 83-84%) and decreased to 80% post-walk. Please see comments. I agree with the reported results. documented in this encounter Plan of Treatment Upcoming Encounters Date Type Department Care Team (Latest Contact Info) Description 05/23/2024 3:30 PM CDT Comprehensive Visit Department of Obstetrics and Gynecology in [address] [phone] Aniya Toledo, MORGAN, C.N.P., [address] [phone] Discharge Disposition: Home or Self Care documented as of this encounter Procedures Procedure Name Priority Date/Time Associated Diagnosis Comments 6 MINUTE WALK Routine 05/01/2024 1:30 PM CDT Hypertension Pulmonary (HCC) documented in this encounter Results * 6 MINUTE WALK (05/01/2024 1:30 PM CDT) Narrative Candie Graham M.D., Ph.D. - 05/01/2024 1:30 PM CDT Candie Graham M.D., Ph.D. 05/01/2024 2:50 PM Six Minute Walk Performed by: Sean Lewis CRAT Authorized by: Lubna Mcmillan M.D. Were medications taken in the last 24 hours?: yes PRE WALK Assistive Device: None 6 Min Walk Distance Type: Track Height (cm): 170 Weight (kg): 65 BMI: 22.5 Resting Heart Rate: 76 Heart Rate Source: Pulse Oximeter Resp Rate: Resting SpO2: 83 SpO2 Site: Forehead Resting BP: 92/60 BP Cuff Arm: Left BP Cuff Size: RegularSupplemental Oxygen used: Supplemental Oxygen Not Used Angina Scale: 0 - No Angina Jesse Dyspnea: 0 - Nothing at all Jesse Fatigue: 0.5 - Very, Very Slight POST WALK Heart Rate: 88 Heart Rate Source: Pulse Oximeter SpO2: 80 BP: 116/62 BP Cuff Side: Left Angina Scale: 0 - No Angina Jesse Dyspnea: 1 - Very Slight Jesse Fatigue: 0.5 - Very, Very Slight Time of Test: 13:20 CDT Total Distance Walked (Feet): 1120 Total Distance Walked (Meters): 341.38 Total # of Times Stopped: 0 Time Stopped (Seconds): 0 Time Walked (Seconds): 360 CALCULATIONS Estimated MPH: 2.1 Estimated METs: 2.61 % of Predicted Distance: 58.93 COMMENTS Patient's base line SpO2 was 84%. At the end of the walk test, SpO2 was at 80%. After resting for 2-3 minutes, SpO2 was back up to 83%. Lubna Mcmillan M.D. CV STRESS PROCEDURES Final Result documented in this encounter Visit Diagnoses Diagnosis Hypertension Pulmonary (HCC) documented in this encounter Care Teams Lead Advisor Relationship Specialty Start Date End Date Ro Norton APRN, C.N.P., D.N.P. PCP - General Family Medicine 05/07/19 documented as of this encounter
--- OUTSIDE RECORDS SUMMARY | 2024-05-17 00:06 | XMS_ITS | Clinical Summary ---
Author Organization [facility] Address [address] [place] [id number] Care Team Providers Care Marketing And Promotions Manager Name Role Phone Ro Norton APRN, SHIVAM Primary Care Provider Unavailable Allergies Active Allergy Reactions Criticality Noted Date Comments Sulfa (Sulfonamide Antibiotics) Angioedema 02/20 Medications predniSONE (DELTASONE) 20 mg tabletIndicatio ns:Pneumonia, bacterial Take 2 tablets by mouth once daily with a meal. 10 tablet 10/31/2018 Active albuterol HFA (VENTOLIN HFA) 90 mcg/actuation inhalerIndicati ons:Bronchitis Inhale 2 Puffs by mouth every 4 hours if needed. 18 g 10/31/2018 Active albuterol HFA 90 mcg/actuation inhalerIndicati ons:Wheezing Inhale 1-2 Puffs by mouth every 4 hours if needed. 3 Inhaler 3 10/31/2018 Active zinc sulfate 50 mg zinc (220 mg) capsule Take 220 mg by mouth. Active sildenafiL, pulm.hypertensi on, (REVATIO) 20 mg tablet Take 20 mg by mouth 3 times daily. 10/12/2020 Active fluticasone propion-salmete roL (Wixela Inhub) 250-50 mcg/Dose diskus inhaler Inhale 1 Puff by mouth 2 times daily. 02/03/2021 Active Docosahexanoic Acid-Eicosapent 120-180 mg cap Take 1,000 mg by mouth. Active ascorbic acid, vitamin C, (VITAMIN C) 100 mg tablet Take 100 mg by mouth. Active oxygen-air delivery systems (HOME OXYGEN) Inhale 1 L into affected nostril(s). Active multivitamin capsule Take 1 Capsule by mouth once daily. Active Active Problems Problem Noted Date Diagnosed Date Tobacco abuse 03/02/2017 COPD exacerbation 03/02/2017 Family History Medical History Relation Name Comments Cancer-breast Maternal Grandmother Cancer-breast Other cousin Relation Name Status Comments Maternal Grandmother Other Social History Tobacco Use Types Packs/Day Years Used Date Smoking Tobacco: Every Day Cigarettes Smokeless Tobacco: Never Tobacco Cessation:Ready to Q uit: No; Counseling Given: Yes Alcohol Use Standard Drinks/Week Comments Yes 0 (1 standard drink = 0.6 oz pur e alcohol) occ Comments No Sex and Gender Information Value Date Recorded Sex Assigned at Not on file Legal Sex Female 8:39 AM SIGNAL TOWER OPERATOR Gender Identity Not on file Sexual Orientation Not on file Occupation Industry Job Start Date Job End Date Not on file Not on file Not on file Not on file Obstetrics History Last Filed Vital Signs Vital Sign Reading Time Taken Comments Blood Pressure 120/80 10/31/2018 3:41 PM CDT Pulse 98 10/31/2018 3:41 PM CDT Temperature 36.5 C (97.7 F) 10/31/2018 3:41 PM CDT Respiratory Rate 32 10/31/2018 3:41 PM CDT Oxygen Saturation 78% 10/31/2018 3:41 PM CDT Inhaled Oxygen Concentration - - Weight 73.9 kg (163 lb) 10/31/2018 3:41 PM CDT Height 178 cm (5' 10.08) 10/31/2018 3:41 PM CDT Body Mass Index 23.34 10/31/2018 3:41 PM CDT Plan of Treatment Health Maintenance Due Date Last Done Comments Tdap 07/29/1983 HIV for age 15-65 07/29/1987 Hepatitis C screening for age 18-79 1990 Tetanus booster 1992 Pap test for age 21-65 1993 Colonoscopy through age 75 2017 Lipids for age 45-75 2017 Depression screening for age 12+ 03/30/2018 03/30/19 18 Mammogram for age 45-75 03/13/2019 03/13/2018 BMI (ht and wt on same day) for age 18+ 11/01/2019 0 10/31/2018, 02/26/2018 Pneumococcal series for age 50+ (1 of 1 - PCV) 2022 Zoster (shingles) series for age 50+ (1 of 2) 2022 COVID-19 vaccine series (2023-25 season) 2023 Influenza Vaccine (#1) 2023 Procedures Procedure Name Priority Date/Time Associated Diagnosis Comments XR MAMMO BILAT DIAGNOSTIC DIONE 03/13/2018 3:48 PM SIGNAL TOWER OPERATOR Breast lump from Last 3 Months or Most Recently Relevant to Health Maintenance Results * XR MAMMO BILAT DIAGNOSTIC (03/13/2018 3:48 PM SIGNAL TOWER OPERATOR) Anatomical Region Laterality Modality BREASTS, Breast Left, Breast Right Bilateral Mammography 03/13/2018 4:14 PM SIGNAL TOWER OPERATOR Impressions 03/14/2018 1:26 PM SIGNAL TOWER OPERATOR Normal fibroglandular tissue LEFT breast upper outer quadrant corresponding to the palpable abnormality. RECOMMENDATIONS: Annual screening mammography. BI-RADS Category 1: Negative Dictated by: Pj Bronson MD @03/13/2018 4:14:47 PM Narrative 03/14/2018 1:26 PM SIGNAL TOWER OPERATOR BILATERAL BREAST FULL-FIELD DIAGNOSTIC MAMMOGRAM WITH COMPUTER-AIDED DETECTION 03/13/2018 LEFT BREAST ULTRASOUND 03/13/2018 CLINICAL HISTORY: LEFT breast lump. COMPARISON: None. TECHNIQUE: Digital BILATERAL mammogram with computer-aided detection. Real-time ultrasound imaging of LEFT breast with imaging documentation. Scanning was performed by both the technologist and the radiologist. BREAST COMPOSITION: Heterogeneously dense parenchyma. FINDINGS: LEFT breast CC, MLO, true lateral, spot compression CC and spot-compression MLO mammograms submitted. Focal asymmetric density is present within the lateral LEFT breast corresponding to the palpable abnormality, 2-3 o'clock 4-5 centimeters from the nipple. No suspicious microcalcifications. RIGHT breast CC and MLO mammograms submitted. Normal fibroglandular tissue without mass or suspicious calcifications. Targeted LEFT breast ultrasound 2 o'clock upper outer quadrant, 4 centimeters from the nipple performed in the area of clinical concern and mammographic density appeared normal fibroglandular tissue is present. Negative for malignancy. us Mariya Winter NP MAMMO Final Resul t from Last 3 Months or Most Recently Relevant to Health Maintenance Insurance MEDICAID Care Teams Marketing And Promotions Manager Relationship Specialty Start Date End Date Ro Norton APRN, STEEL MANAGER PCP - General Nurse Practitioner - Family 04/22/21
--- OUTSIDE RECORDS SUMMARY | 2024-05-17 00:06 | XMS_ITS | Encounter Summary ---
Author Organization [facility] Address [address] [place] [id number] Care Team Providers Care Electro Mechanical Technologist Name Role Phone Ro Norton APRN, C.N.P., D.N.P. Primary Ca re Provider Unavailable Reason for Visit * Reason Onset Date Comments Pre-visit Intake 04/29/2024 * Appointment Request (Routine) - Authorized Specialty Diagnoses / Procedures Referred By Maria L plummer Referred To Contact Cardiovascular Disease Referral ID Status Reason Start Date Expiration Date V isits Requested Visits Authorized [id number] Authorized 03/19/2024 06/19/2025 1 1 Encounter Details Date Type Department Care Team (Latest Contact Info) Description 04/29/2024 1:15 PM CDT Clinical Communication Virtual Review in [place], [place] [address] [place] [address] Pre-visit Intake Social History Tobacco Use Types Packs/Day Years Used Date Smoking Tobacco: Every Day Cigarettes 0.5 30 Passive Smoke Exposure: Never Smokeless Tobacco: Never Tobacco Cessation:Ready to Q uit: Not Asked; Counseling Given: Not Answered Comments:4-5 cigarettes a day Alcohol Use Standard Drinks/Week Comments Not Currently 0 (1 standard drink = 0.6 oz pur e alcohol) ocassionally [facility] Utilities Answer Date Recorded In the past 12 months has e electric, gas, oil, or water [employer] threatened to shut off services in [...] often do you attend chur ch or episcopal services? Never 03/25/2022 Do you belong to [...] Answer Date Recorded PHQ-2 Score 2 07/31/2023 [facility] of Occupat ional Health - Occupational Stress [...] money to buy more. Never true 11/01/19 Within the past 12 months, t he [...] your living situation today? I have a [facility] place to live 11/01/2023 Education Answer Date [...] Visit Department of Obstetrics and Gynecology in [address] [phone] Aniya Toledo, VETERANS' COORDINATOR, C.N.P., NP-BC [address] [place] [phone] Discharge Disposition: Home or Self Care documented as of this encounter Visit Diagnoses Not on filedocumented in this encounter Care Teams Electro Mechanical Technologist Relationship Specialty Start Date End Date Ro Norton APRN, C.N.P., D.N.P. PCP - General Family Medicine 05/07/19 documented as of this encounter
--- OUTSIDE RECORDS SUMMARY | 2024-05-17 00:06 | XMS_ITS | Encounter Summary ---
Author Organization [facility] Address [address] [place] [address] Care Team Providers Care Service Coordinator Name Role Phone Ro Norton APRN, C.N.P., D.N.P. Primary Ca re Provider Unavailable Reason for Visit * Reason Comments Congestion Encounter Details Date Type Department Care Team (Late st Contact Info) Description 05/16/2024 1:00 PM CDT Telemedicine Department of Family Medicine, [facility], in [address] [phone] Sol Lo, D.ORaffy [address] [place] [phone] Chronic Obstructive Pulmonary Disease Exacerbation (HCC) (Primary Dx) Discharge Disposition: Home or Self Care Social History Tobacco Use Types Packs/Day Years Used Date Smoking Tobacco: Every Day Cigarettes 0.5 30 Passive Smoke Exposure: Never Smokeless Tobacco: Never Tobacco Cessation:Ready to Q uit: No; Counseling Given: Yes Comments:4-5 cigarettes a day Alcohol Use Standard Drinks/Week Comments Not Currently 0 (1 standard drink = 0.6 oz pur e alcohol) ocassionally [facility] Utilities Answer Date Recorded In the [...] often do you attend chur ch or druze services? Never 03/25/2022 Do you [...] 03/25/2022 PHQ-2 Answer Date Recorded PHQ-2 Score 0 05/16/2024 [facility] of Occupat ional Health - Occupational Stress [...] as of this encounter Progress Notes * Sol Lo, Consuelo. - 05/16/2024 1:00 PM CDT SUBJECTIVE CHIEF COMPLAINT/REASON FOR VISIT Allison Schulz is a 53 y.o. female who presents for evaluation of Congestion. HISTORY OF PRESENT ILLNESS Allison is a 53 y.o. female who has agreed to a video visit to discuss the following chief complaint: Congestion. Concerns: Video visit to discuss chest congestion, increase in sputum purulence. Not been running a fever. Gus supplemental O2 and reports saturations in the mid 80s, which is typical for her. No known exposure to flu COVID RSV or other infections and notes that she does not go out much. Generally prednisone has worked very well, and occasionally has used Zithromax in combination with prednisone. Does need a refill on duo nebs. Several ongoing health issues including pulmonary hypertension, chronic hypoxic respiratory failurewith nocturnal oxygen supplementation, COPD, HCV (untreated with rising aminotransferases), historyof PDA closure, functional class 1 dyspnea, and history of prior drug use. Social History Social History Narrative Currently lives with boyfriend. They have been together for 1.5 years. CURRENT MEDICATIONS Current Outpatient Medications Medication Sig Dispense Refill albuterol 90 mcg/actuation inhaler INHALE 2 PUFFS BY MOUTH FOUR TIMES A DAY 54 g 3 amoxicillin-pot clavulanate (Augmentin) 875-125 mg per tablet Take 1 tablet by mouth 2 (two) times a day. 20 tablet 0 DME Oxygen DME Order - for details see Order Report 1 each 0 fluticasone propion-salmeteroL (Advair Diskus) 250-50 mcg/dose diskus inhaler Inhale 1 puff 2 (two)times a day. Rinse mouth with water after use to reduce aftertaste and incidence of candidiasis. Donot swallow. 60 each 11 food supplemt, lactose-reduced (Ensure) liquid Take 1 bottle (237 mL) by mouth daily. Medically necessary 7110 mL 0 furosemide (LASIX) 40 mg tablet TAKE 1 TABLET(40 MG) BY MOUTH DAILY 90 tablet 3 Home Nebulizer Plus Sidestream device See Admin Instructions. ipratropium-albuteroL (DuoNeb) 0.5-2.5 mg/3 mL nebulizer solution USE 3 ML VIA NEBULIZER FOUR TIMESDAILY 180 mL 11 multivitamin capsule Take 1 capsule by mouth daily. Opsumit 10 mg tablet Take 1 tablet daily. 30 tablet 11 sildenafil (Revatio) 20 mg tablet Take 1 tablet (20 mg total) by mouth 3 (three) times a day. 90 tablet 11 No current facility-administered medications for this visit. REVIEW OF SYSTEMS Pertinent positives as noted above. The remainder of ROS is negative. Allergies, past medical, social, and family history reviewed. OBJECTIVE VITAL SIGNS General Appearance: Not in respiratory distress, supplemental O2 by nasal cannula in use ASSESSMENT / PLAN #1 Chronic Obstructive Pulmonary Disease Exacerbation (HCC) - Will treat with another week-long course of prednisone, and will treat with Zithromax due to increasing purulence of sputum. I will renew her nebs. Encouraged her to contact us if any concerns or if symptoms continue to worsen. Prescription sent to [facility]. Time spent in video conference: 10 minutes Consult conducted via real-time audio/video technology by Sol Lo D.O. in [place], [place] to the patient in patient's home. documented in this encounter Plan of Treatment Upcoming Encounters Date Type Department Care Team (Latest Contact Info) Description 05/23/2024 3:30 PM CDT Comprehensive Visit Department of Obstetrics and Gynecology in [address] [phone] Aniya Toledo APRN, C.N.P., [address] [phone] Discharge Disposition: Home or Self Care documented as of this encounter Visit Diagnoses Diagnosis Chronic Obstructive Pulmonary Disease Exacerbation (HCC)- Primary documented in this encounter Care Teams Service Coordinator Relationship Specialty Start Date End Date Ro Norton APRN, C.N.P., D.N.P. PCP - General Family Medicine 05/07/19 documented as of this encounter
--- OUTSIDE RECORDS SUMMARY | 2024-05-17 00:06 | XMS_ITS | Encounter Summary ---
Author Organization [facility] Address [address] [place] [address] Care Team Providers Care Instructional Technology Specialist Name Role Phone Ro Norton APRN, C.N.P., D.N.P. Primary Ca re Provider Unavailable Encounter Details Date Type Department Care Team (Late st Contact Info) Description 05/01/2024 Clinical Communication Division of Pulmonary Medicine in [place], [place] [address] [place] [address] Lubna Mcmillan M.D. [address] [place] [address] Social History Tobacco Use Types Packs/Day Years Used Date Smoking Tobacco: Every Day Cigarettes 0.5 30 Passive Smoke Exposure: Never Smokeless Tobacco: Never Comments:4-5 cigarettes a da y Alcohol Use Standard Drinks/Week Comments Not Currently 0 (1 standard drink = 0.6 oz pur e alcohol) ocassionally [facility] Utilities Answer Date Recorded In the past 12 months has e [employer], gas, oil, or water [employer] threatened to shut off services in your [...] often do you attend chur ch or spiritism services? Never 03/25/2022 Do you belong to any clubs o r organizations such as mormonism groups, unions, fraternal [...] Answer Date Recorded PHQ-2 Score 2 07/31/2023 [facility] of Occupat ional Health - [...] a [facility] place to live 11/01/2023 Education Answer [...] encounter Miscellaneous Notes * Telephone Encounter - Desiree Rocha - 05/01/2024 1:56 PM CDT Nitish Mcmillan, Pt called saying she left the clinic due to emergency and wondering if today's appt can be virtual. Thanks Desiree.S documented in this encounter Plan of Treatment Upcoming Encounters Date Type Department Care Team (Latest Contact Info) Description 05/23/2024 3:30 PM CDT Comprehensive Visit Department of Obstetrics and Gynecology in [address] [phone] Aniya Toledo APRN, C.N.P., [facility] [address] [place] [address] RICH Nazario [phone] Discharge Disposition: Home or Self Care documented as of this encounter Visit Diagnoses Not on filedocumented in this encounter Care Teams Instructional Technology Specialist Relationship Specialty Start Date End Date Ro Norton APRN, C.N.P., D.N.P. PCP - General Family Medicine 05/07/19 documented as of this encounter
--- OUTSIDE RECORDS SUMMARY | 2024-05-17 00:06 | XMS_ITS | Encounter Summary ---
Author Organization [facility] Address [address] [place] [address] Care Team Providers Care Tenter Feeder Name Role Phone Ro Norton APRN, C.N.P., D.N.P. Primary Ca re Provider Unavailable Encounter Details Date Type Department Care Team (Latest Contact Info) Description 03/19/2024 Clinical Communication Department of Cardiovascular Medicine in [place], [place] [address] [place] [phone] Property ClerkHe M.D. Social History Tobacco Use Types Packs/Day Years Used Date Smoking Tobacco: Every Day Cigarettes 0.5 30 Smokeless Tobacco: Never Comments:4-5 cigarettes a da y Alcohol Use Standard Drinks/Week Comments Not Currently 0 (1 standard drink = 0.6 oz pur e alcohol) ocassionally [facility] Utilities Answer Date Recorded In the past 12 months has [facility] [employer], gas, oil, or water [employer] threatened to shut off services in your [...] Answer Date Recorded PHQ-2 Score 2 07/31/2023 [facility] of Occupat ional Health - Occupational [...] your living situation today? I have a [facility] place to live 11/01/2023 Education Answer [...] Visit Department of Obstetrics and Gynecology in [address] [place] [address] [phone] Aniya Toledo APRN, C.N.P., [address] [phone] Discharge Disposition: Home or Self Care documented as of this encounter Visit Diagnoses Not on filedocumented in this encounter Care Teams Tenter Feeder Relationship Specialty Start Date End Date Ro Norton APRN, C.N.P., D.N.P. PCP - General Family Medicine 05/07/19 documented as of this encounter
[2024-05-17 00:07] VITALS: BP 108/70; PULSE 112; RESP 27; TEMP 36.4; O2SAT 66; BMI 20.2
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
--- NOTE | 2024-05-17 00:13 | CRLHL7_ITS ---
For Patients: As a result of the Cures Act, medical imaging exams and procedure reports are released immediately into your electronic medical record. You may view this report before your referring provider. If you have questions, please contact your health care provider. Indication: Dyspnea, history of COPD and CHF Technique: Two views of the chest Comparison: None Findings/Impression: Cardiomegaly with irregular opacities along the right hilum/perihilar space. Note is also made of a nodular opacity in the right lung base. At the time of this dictation, prior examinations are not available for comparison. Cross-sectional imaging recommended. Dictated by David Pino MD @ 05/17/2024 1:05:28 AM (Electronically Signed)
--- NOTE | 2024-05-17 00:16 | ED.SOB ---
HPI - SOB/Dyspnea General Time Seen by Provider: 00:16 Date Seen: 05/17/24 Chief Complaint: Shortness of Breath/Dyspnea Stated Complaint: COPD, wants oxygen Time Seen by Provider: 05/17/24 00:13 Source: patient, RN notes reviewed and old records reviewed Mode of arrival: ambulatory Limitations: no limitations History of Present Illness HPI Narrative: 53-year-old female who presents today with shortness of breath. Patient noted she started having some upper respiratory symptoms about 2 days ago with increased sputum production and increased cough, had a telemedicine visit yesterday and was prescribed prednisone and azithromycin, however did not start dose. Breathing got worse about an hour ago. She chronically is on 5 L of oxygen and says her normal oxygen saturation is in the high 70s to low 80s. She denies chest pain, fever, leg swelling, nausea, vomiting, abdominal pain. Related Data Home Medications ?Medication ?Instructions ?Recorded ?Confirmed albuterol sulfate 90 mcg/actuation 2 puff inhalation QID PRN 01/10/22 11/02/23 aerosol inhaler (ProAir HFA) furosemide 20 mg tablet 20 mg PO DAILY 01/10/22 11/02/23 ipratropium 0.5 mg-albuterol 3 mg 3 ml inhalation Q6H PRN 01/11/22 11/02/23 (2.5 mg base)/3 mL nebulization soln pramipexole 0.125 mg tablet 0.125 mg PO DAILY 01/11/22 11/02/23 sildenafil (pulm.hypertension) 20 20 mg PO DAILY 01/11/22 11/02/23 mg tablet Previous Rx's ?Medication ?Instructions ?Recorded furosemide 40 mg tablet 40 mg PO DAILY PRN prn #20 tabs 03/26/22 fluticasone propionate 50 2 spray intranasal DAILY #16 grams 06/25/22 mcg/actuation nasal spray,suspension (Flonase Allergy Relief) ipratropium 0.5 mg-albuterol 3 mg 3 ml inhalation QID #90 mL 06/25/22 (2.5 mg base)/3 mL nebulization soln prednisone 20 mg tablet See Rx Instructions .Route 06/25/22 .COMPLEX #20 tabs nebulizer accessories #1 ea 11/14/22 prednisone 20 mg tablet 40 mg (2 x 20 mg) PO DAILY 5 days 11/14/22 #10 tabs Allergies Allergy/AdvReac Type Severity Reaction Status Date / Time Sulfa (Sulfonamide Allergy Severe Verified 05/17/24 00:10 Antibiotics) [facility] Medical History Shortness of breath ?R06.02 - Shortness of breath (ICD-10) Constipation ?K59.00 - Constipation, unspecified (ICD-10) Hypomagnesemia ?E83.42 - Hypomagnesemia (ICD-10) Hemarthrosis ?M25.00 - Hemarthrosis, unspecified joint (ICD-10) Fracture of tibial plateau, closed ?S82.143A - Displaced bicondylar fracture of unspecified tibia, initial encounter for closed fracture (ICD-10) Fracture of ribs, multiple ?S22.49XA - Multiple fractures of ribs, unspecified side, initial encounter for closed fracture (ICD-10) Traumatic fracture of sternum ?S22.20XA - Unspecified fracture of sternum, initial encounter for closed fracture (ICD-10) Tobacco use ?Z72.0 - Tobacco use (ICD-10) Severe pulmonary hypertension ?I27.20 - Pulmonary hypertension, unspecified (ICD-10) CHF (congestive heart failure) ?I50.9 - Heart failure, unspecified (ICD-10) COPD (chronic obstructive pulmonary disease) ?J44.9 - Chronic obstructive pulmonary disease, unspecified (ICD-10) Social History Smoking Status: Current every day smoker What tobacco products do you use: cigarettes Smoking packs per day: 0.5 Smoking cigarettes per day: 10.0 Do you use any of these nicotine containing products: None Second hand tobacco smoke exposure: No How often do you have a drink containing alcohol: never AUDIT-C Alcohol total score: 0 Non-prescribed substance use: denies use service: No Exam Narrative: Exam Narrative: General: Well-developed and well-nourished, no acute distress Head: Atraumatic and normocephalic Eyes: Pupils are equal reactive, extraocular motions intact, conjunctiva clear ENT: External nose and ears are normal, posterior pharynx without erythema or exudate Neck: No midline cervical tenderness, full spontaneous range of motion the neck, trachea midline, no adenopathy Heart: Tachycardic but regular Lungs: Bilateral inspiratory and expiratory wheezes, no distress Abdomen: Soft, nontender, nondistended with active bowel sounds Musculoskeletal: No tenderness, deformity, or edema Neurologic: Awake, alert, and oriented x3, no gross focal neurologic deficits, cranial nerves intact as tested Psych: Mood and affect are appropriate Skin: No rashes Const: Vital Signs, click to edit/add: Vital Signs - 24 hr 05/17/24 00:07 Temperature 97.6 F Pulse Rate [Right Pulse Oximeter] 112 H Respiratory Rate 27 H Blood Pressure [Ri ght Upper Arm] 108/70 Pulse Oximetry 66 L Oxygen Delivery Me thod Room Air Course Course ED Course: Reviewed most recent telemedicine visit from May 16 when patient was seen with chest congestion, was prescribed prednisone and azithromycin. Patient also has history of heart failure, patient this had a walk test on May 01 with initial oxygen saturation 83%, decreased to 80% with ambulation. Presents today with increased cough and shortness of breath. On exam here, she is tachycardic, oxygen saturations in the 60s to 70s but no distress, no tachypnea, speaking in full sentences, looks clinically quite good given her poor saturations. Patient says she typically has oxygen saturations in the high 70s to low 80s and review of chart shows this to be the case. She is little tachycardic, inspiratory and expiratory wheezes. She feels like this is more a COPD/emphysema problem than related to her heart failure, however labs and chest x-ray ordered for further evaluation. DuoNeb is ordered and patient will be given prednisone in the azithromycin that was previously prescribed yesterday by her primary care provider she was not able to started yesterday. Reevaluation(s) Time of Reevaluation #1: 01:13 Reevaluation #1: Labs independently interpreted by me with venous blood gas pCO2 66 with normal venous pH representing chronic respiratory failure. Basic metabolic panel with metabolic alkalosis which likely is compensatory for her metabolic acidosis. Chest x-ray independently turbid by me with cardiomegaly, irregular opacities of the right hilum and perihilar space with a nodular opacity in the right lung base. Patient is followed by pulmonology at [facility] and can follow-up with them for possible CT scan, it appears she had a CT scan done in October 2023. Time of Reevaluation #2: 01:21 Reevaluation #2: Patient recheck, oxygen saturations still in the high 70s but patient says she feels better, declines admission. Plan to discharge after patient is given Rocephin for community-acquired pneumonia Time of Reevaluation #3: 02:08 Reevaluation #3: Patient rechecked, oxygen saturations are slightly below baseline on usual oxygen. Again recommended admission which patient declines. Vital Signs Vital signs: Initial Vital Signs Temperature 97.6 F 05/17/24 00:07 Temperature Source Temporal Artery Scan 05/17/24 00:07 Pulse Rate 112 H 05/17/24 00:07 Pulse Rhythm Regular 05/17/24 00:07 Pulse Strength 3+ Normal 05/17/24 00:07 Respiratory Rate 27 H 05/17/24 00:07 Blood Pressure 108/70 05/17/24 00:07 Blood Pressure Mean 82 05/17/24 00:07 Blood Pressure Position Sitting 05/17/24 00:07 Pulse Oximetry 66 L 05/17/24 00:07 Oxygen Delivery Method Room Air 05/17/24 00:07 Vital Signs Temperature 97.6 F 05/17/24 00:07 Pulse Rate 112 H 05/17/24 00:07 Respiratory Rate 27 H 05/17/24 00:07 Blood Pressure 108/70 05/17/24 00:07 Pulse Oximetry 66 L 05/17/24 00:07 Oxygen Delivery Method Room Air 05/17/24 00:07 Temperature 97.6 F 05/17/24 00:07 Pulse Rate 112 H 05/17/24 00:07 Respiratory Rate 27 H 05/17/24 00:07 Blood Pressure 108/70 05/17/24 00:07 Pulse Oximetry 66 L 05/17/24 00:07 Oxygen Delivery Method Room Air 05/17/24 00:07 Medications Administered Medications: Discontinued Medications Generic Name Dose Route Start Last Admin Trade Name Freq PRN Reason Stop Dose Admin Albuterol 2.5 mg 05/17/24 01:24 05/17/24 01:36 Albuterol Sulfate 2.5 Mg/3 Ml Vial.Yazan [facility]IANSON 05/17/24 01:25 2.5 mg ONCE ONE Administration Albuterol/Ipratropium 1 neb 05/17/24 00:13 05/17/24 00:18 Iprat-Albut 0.5-2.5 Mg/3 Ml [facility] 05/17/24 00:14 1 [facility] ONCE ONE Administration Albuterol/Ipratropium 1 [facility] 05/17/24 00:40 05/17/24 00:44 Iprat-Albut 0.5-2.5 Mg/3 Ml [facility] 05/17/24 00:41 1 [facility] ONCE ONE Administration Azithromycin 500 mg 05/17/24 00:13 05/17/24 00:39 Azithromycin 250 Mg Tablet PO 05/17/24 00:14 500 mg ONCE ONE Administration Ceftriaxone Sodium 2 gm/ 100 mls @ 200 mls/hr 05/17/24 01:16 05/17/24 01:36 Sodium Chloride IVPB 05/17/24 01:17 200 mls/hr ONCE ONE Administration Ibuprofen 600 mg 05/17/24 01:22 05/17/24 01:36 Ibuprofen 600 Mg Tablet PO 05/17/24 01:23 600 mg ONCE ONE Administration Prednisone 40 mg 05/17/24 00:13 05/17/24 00:40 Prednisone 20 Mg Tablet PO 05/17/24 00:14 40 mg ONCE ONE Administration MDM - SOB/Dyspnea Lab Data Labs: Lab Results 05/17/24 05/17/24 Range/Units 00:19 00:25 VBG pH 7.357 (7.32-7.43) VBG pCO2 66 H* (40-50) mmHG VBG pO2 < 30.1 (25-47) mmHG VBG HCO3 37 H (21-28) mmol/L Sodium 138 (135-149) mmol/L Potassium 4.2 (3.6-5.1) mmol/L Chloride 98 (96-114) mmol/L Carbon Dioxide 36 H (20-32) mmol/L Anion Gap 4 L (7-15) mEq/L BUN 26 (7-30) mg/dL Creatinine 0.8 (0.5-1.5) mg/dL Estimated Creat Clear 86.38 Estimated GFR 89 ml/min Glucose 118 H (60-115) mg/dL Calcium 8.6 (8.4-10.6) mg/dL Magnesium 1.7 (1.5-2.6) mg/dL NT-Pro-B Natriuret Pep 1110 pg/mL SARS-CoV-2 (PCR) Negative SARS-CoV-2 (Negative) Influenza Type A (PCR) Negative PCR FLU A (Negative) Influenza Type B (PCR) Negative PCR FLU B (Negative) RSV (PCR) Negative PCR RSV (Negative) Discharge Plan Discharge Clinical Impression: Acute on chronic respiratory failure with hypoxia and hypercapnia, Acute exacerbation of chronic obstructive pulmonary disease, Community acquired bacterial pneumonia Patient Disposition: Home, Self-Care Condition: Stable Instructions: COPD (Chronic Obstructive Pulmonary Disease) (ED), Community Acquired Pneumonia (ED) Additional Instructions: Take prednisone and antibiotic as previously prescribed use nebulizer treatments every 2-3 hours for the next 24 hours follow-up with your primary care doctor, contact your shaper setter as well to let them know your in the emergency department Activity Level: No Restrictions Discharge Diet: Regular Prescriptions: No Action albuterol sulfate [ProAir HFA] 90 mcg/actuation HFA aerosol inhaler 2 puff INHALATION QID PRN furosemide 20 mg tablet 20 mg PO DAILY ipratropium-albuterol 0.5 mg-3 mg(2.5 mg base)/3 mL solution for nebulization 3 ml INHALATION Q6H PRN pramipexole 0.125 mg tablet 0.125 mg PO DAILY sildenafil (pulm.hypertension) 20 mg tablet 20 mg PO DAILY furosemide 40 mg tablet 40 mg PO DAILY PRN (Reason: prn) Qty: 20 2RF (DME) nebulizer accessories Kit See Rx Instructions .Route Qty: 1 0RF Rx Instructions: As directed prednisone 20 mg tablet 40 mg PO DAILY 5 Days Qty: 10 0RF ipratropium-albuterol 0.5 mg-3 mg(2.5 mg base)/3 mL solution for nebulization 3 ml inhalation QID Qty: 90 0RF prednisone 20 mg tablet See Rx Instructions .ROUTE .COMPLEX Qty: 20 0RF Rx Instructions: 60 mg daily for 3 days then 40 mg daily for 4 days then 20 mg daily for 3 days fluticasone propionate [Flonase Allergy Relief] 50 mcg/actuation spray,suspension 2 spray intranasal DAILY Qty: 16 1RF Rx Instructions: administer into each nostril Follow Up/Referrals: Ro Norton, SHIVAM, REFRIGERATION MECHANIC HELPER [Primary Care Provider] - Stand Alone Forms: [employer] Info Instructions
[2024-05-17] MEDS: IPRAT-ALBUT 0.5-2.5 MG/3 ML NEB 1 NEB IH ×2 (00:18→00:44)
[2024-05-17] MEDS: AZITHROMYCIN 250 MG TABLET 500 MG PO (00:39)
[2024-05-17] MEDS: predniSONE 20 MG TABLET 40 MG PO (00:40)
[2024-05-17 00:45] LABS: HCO3 VBG 37 mmol/L (21-28); PO2 VBG < 30.1 mmHG (25-47); pH VBG 7.357 (7.32-7.43)
--- OUTSIDE RECORDS SUMMARY | 2024-05-17 00:46 | XMS_ITS | Encounter Summary ---
Author Organization [facility] Address [address] [place] [address] Care Team Providers Care Associate Producer Name Role Phone Ro Norton APRN, C.N.P., [...] In the past 12 months has e [employer], gas, oil, or water [employer] threatened to shut off services in your [...] Date Recorded PHQ-2 Score 2 07/31/2023 [facility] - Occupational [...] of [facility] to [facility] 11/01/2023 Education Answer Date [...] Visit Department of Obstetrics and Gynecology in [address] [place] [phone] Aniya Toledo APRN, C.N.P., [facility] [address] [place] [address] RICH Nazario [phone] Discharge Disposition: Home or Self Care documented as of this encounter Visit Diagnoses Not on filedocumented in this encounter Additional Health Concerns Infection Onset Date Last Indicated Resolved Time COVID19 Pending 10/30/2023 10/30/2023 10/30/2023 1 1:05 PM CDT COVID19 Pending 10/31/2023 10/31/2023 10/31/2023 3 :31 AM CDT documented as of this encounter Care Teams Associate Producer Relationship Specialty Start Date End Date Ro Norton APRN, C.N.P., D.N.P. PCP - General Family Medicine 05/07/19 documented as of this encounter
--- OUTSIDE RECORDS SUMMARY | 2024-05-17 00:47 | XMS_ITS | Encounter Summary ---
Author Organization [facility] Address [address] [place] [address] Care Team Providers Care Quick Service Technician Name Role Phone Ro Norton APRN, C.N.P., D.N.P. Primary Ca re Provider Unavailable Encounter Details Date Type Department Care Team (Late st Contact Info) Description 05/01/2024 Orders Only Division of Gastroenterology in [place], [place] [address] [place] [phone] Birdie Nilesen M.D. [address] [place] [phone] Social History Tobacco Use Types Packs/Day Years Used Date Smoking Tobacco: Every Day Cigarettes 0.5 30 Passive Smoke Exposure: Never Smokeless Tobacco: Never Comments:4-5 cigarettes a da y Alcohol Use Standard Drinks/Week Comments Not Currently 0 (1 standard drink = 0.6 oz pur e alcohol) ocassionally [facility] Utilities Answer Date Recorded In the past 12 months has e [employer], gas, oil, or water [employer] threatened to shut off services in your [...] Answer Date Recorded PHQ-2 Score 2 07/31/2023 [facility] - [...] a [facility] to [facility] 11/01/2023 Education Answer [...] Visit Department of Obstetrics and Gynecology in [address] [phone] Aniya Toledo, SEISMOGRAPH CHIEF, C.N.P., [facility]- [address] [place] [phone] Discharge Disposition: Home or Self Care documented as of this encounter Visit Diagnoses Not on filedocumented in this encounter Care Teams Quick Service Technician Relationship Specialty Start Date End Date Ro Norton APRN, C.N.P., D.N.P. PCP - General Family Medicine 05/07/19 documented as of this encounter
--- OUTSIDE RECORDS SUMMARY | 2024-05-17 00:47 | XMS_ITS | Clinical Summary ---
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 RECOMMENDATIONS: Annual screening mammography. 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
--- OUTSIDE RECORDS SUMMARY | 2024-05-17 00:47 | XMS_ITS | Encounter Summary ---
Author Organization [facility] Address [address] [place] [address] Care Team Providers Care Labor Relations Supervisor Name Role Phone Ro Norton APRN, C.N.P., D.N.P. Primary Ca re Provider Unavailable Encounter Details Date Type Department Care Team (Late st Contact Info) Description 05/01/2024 Clinical Communication Division of Pulmonary Medicine in [place], [place] [address] [place] [phone] Lubna Mcmillan M.D. [address] [place] [phone] Social History Tobacco Use Types Packs/Day Years Used Date Smoking Tobacco: Every Day Cigarettes 0.5 30 Passive Smoke Exposure: Never Smokeless Tobacco: Never Comments:4-5 cigarettes a da y Alcohol Use Standard Drinks/Week Comments Not Currently 0 (1 standard drink = 0.6 oz pur e alcohol) ocassionally [facility] Utilities Answer Date Recorded In the past 12 months has e [employer], gas, oil, or water [employer] threatened to shut off services in your [...] often do you attend chur ch or christian services? Never 03/25/2022 Do you [...] Score 2 07/31/2023 [facility] - [...] living situation today? I have a [facility] place to live 11/01/2023 Education Answer [...] Visit Department of Obstetrics and Gynecology in [address] [phone] Aniya Toledo APRN, C.N.P., [facility] [address] [place] [address] R[place] Nazario [phone] Discharge Disposition: Home or Self Care documented as of this encounter Visit Diagnoses Not on filedocumented in this encounter Care Teams Labor Relations Supervisor Relationship Specialty Start Date End Date Ro Norton APRN, C.N.P., D.N.P. PCP - General Family Medicine 05/07/19 documented as of this encounter
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
--- OUTSIDE RECORDS SUMMARY | 2024-05-17 00:47 | XMS_ITS | Encounter Summary ---
Author Organization [facility] Address [address] [place] [address] Care Team Providers Care Cylinder Head Assembler Name Role Phone Ro Norton APRN, C.N.P., D.N.P. Primary Ca re Provider Unavailable Reason for Referral * Outpatient (Routine) - Closed Specialty Diagnoses / Procedures Referred By Maria L plummer Referred To Contact Diagnoses Hypertension Pulmonary (HCC) Procedures Six Minute Walk Lubna Mcmillan M.D. [address] [place] [address] Phone: tel: fax: [facility] Referral ID Status Reason Start Date Expiration Date Visits Re quested Visits Authorized [id number] Closed 03/05/2024 03/05/2025 1 1 Reason for Visit * Outpatient (Routine) - Closed Specialty Diagnoses / Procedures Referred By Maria L plummer Referred To Contact Diagnoses Hypertension Pulmonary (HCC) Procedures Six Minute Walk Lubna Mcmillan M.D. [address] [place] [address] Phone: tel: fax: [facility] Referral ID Status Reason Start Date Expiration Date Visits Re quested Visits Authorized [id number] Closed 03/05/2024 03/05/2025 1 1 Encounter Details Date Type Department Care Team (Latest Contact Info) Description 05/01/2024 1:16 PM CDT - 05/01/2024 11:59 PM CDT Hospital Encounter Department of Cardiac Rehabilitation in [place], [place] 200 [place] [address] Lubna Mcmillan M.D. [address] [place] [address] Hypertension Pulmonary (HCC) Discharge Disposition: Home or [...] In the past 12 months has e [employer], gas, oil, or water [employer] threatened to shut off services in your [...] any clubs o r organizations such as yazidism groups, unions, fraternal [...] Answer Date Recorded PHQ-2 Score 2 07/31/2023 [facility] of Occupat ional Health - Occupational Stress [...] Visit Department of Obstetrics and Gynecology in [address] [phone] Aniya Toledo, MORGAN, C.N.P., [address] [phone] Discharge Disposition: Home or Self [...] (HCC) documented in this encounter Care Teams Cylinder Head Assembler Relationship Specialty Start Date End Date Ro Norton APRN, C.N.P., D.N.P. PCP - General Family Medicine 05/07/19 documented as of this encounter
--- OUTSIDE RECORDS SUMMARY | 2024-05-17 00:47 | XMS_ITS | Encounter Summary ---
Author Organization [facility] Address [address] [place] [address] Care Team Providers Care Flexographic Press Set Up Operator Name Role Phone Ro Norton APRN, C.N.P., D.N.P. Primary Ca re Provider Unavailable Reason for Visit * Reason Comments Congestion Encounter Details Date Type Department Care Team (Late st Contact Info) Description 05/16/2024 1:00 PM CDT Telemedicine Department of Family Medicine, [facility], in [address] [phone] Sol Lo, D.ORaffy [address] [place] [phone] Chronic Obstructive Pulmonary Disease Exacerbation (HCC) [...] = 0.6 oz pur e alcohol) ocassionally [facility] Utilities Answer Date Recorded In the [...] often do you attend chur ch or confucianism services? Never 03/25/2022 Do you [...] Answer Date Recorded PHQ-2 Score 0 05/16/2024 [facility] [place] of Occupat ional Health - Occupational Stress [...] symptoms continue to worsen. Prescription sent to [facility]. Time spent in video conference: 10 minutes Consult conducted via real-time audio/video technology by Sol Lo D.O. in [place], [place] to the patient in patient's home. documented in this encounter Plan of Treatment Upcoming Encounters Date Type Department Care Team (Latest Contact Info) Description 05/23/2024 3:30 PM CDT Comprehensive Visit Department of Obstetrics and Gynecology in [address] [phone] Aniya Toledo APRN, C.N.P., [address] [phone] Discharge Disposition: Home or Self Care documented as of this encounter Visit Diagnoses Diagnosis Chronic Obstructive Pulmonary Disease Exacerbation (HCC)- Primary documented in this encounter Care Teams Flexographic Press Set Up Operator Relationship Specialty Start Date End Date Ro Norton APRN, C.N.P., D.N.P. PCP - General Family Medicine 05/07/19 documented as of this encounter
--- OUTSIDE RECORDS SUMMARY | 2024-05-17 00:47 | XMS_ITS | Encounter Summary ---
Author Organization [facility] Address [address] [place] [address] Care Team Providers Care Corporate Bond Trader Name Role Phone Ro Norton APRN, C.N.P., D.N.P. Primary Ca re Provider Unavailable Encounter Details Date Type Department Care Team (Latest Contact Info) Description 03/19/2024 Clinical Communication Department of Cardiovascular Medicine in [place], [place] [address] [place] [address] Social Security AssessorHe M.D. Social History Tobacco Use Types Packs/Day Years Used Date Smoking Tobacco: Every Day Cigarettes 0.5 30 Smokeless Tobacco: Never Comments:4-5 cigarettes a da y Alcohol Use Standard Drinks/Week Comments Not Currently 0 (1 standard drink = 0.6 oz pur e alcohol) ocassionally [facility] Utilities Answer Date Recorded In the past 12 months has [facility] [employer], gas, oil, or water [employer] threatened to shut off services in your [...] often do you attend chur ch or yarsanism services? Never 03/25/2022 Do you belong to any clubs o r organizations such as jewish groups, unions, fraternal [...] Answer Date Recorded PHQ-2 Score 2 07/31/2023 [facility] of Occupat ional Health - [...] have a [facility] place to live 11/01/2023 Education Answer Date [...] Visit Department of Obstetrics and Gynecology in [address] [phone] Aniya Toledo APRN, C.N.P., [address] [phone] Discharge Disposition: Home or Self Care documented as of this encounter Visit Diagnoses Not on filedocumented in this encounter Care Teams Corporate Bond Trader Relationship Specialty Start Date End Date Ro Norton APRN, C.N.P., D.N.P. PCP - General Family Medicine 05/07/19 documented as of this encounter
--- OUTSIDE RECORDS SUMMARY | 2024-05-17 00:47 | XMS_ITS | Encounter Summary ---
Author Organization [facility] Address [address] [place] [address] Care Team Providers Care Wrapper Stripper Name Role Phone Ro Norton APRN, C.N.P., D.N.P. Primary Ca re Provider Unavailable Reason for Visit * Reason Onset Date Comments Pre-visit Intake 04/29/2024 * Appointment Request (Routine) - Authorized Specialty Diagnoses / Procedures Referred By Maria L plummer Referred To Contact Cardiovascular Disease Referral ID Status Reason Start Date Expiration Date V isits Requested Visits Authorized [id number] Authorized 03/19/2024 06/19/2025 1 1 Encounter Details Date Type Department Care Team (Latest Contact Info) Description 04/29/2024 1:15 PM CDT Clinical Communication Virtual Review in [place], [place] 200 [place] [address] Pre-visit Intake Social History Tobacco Use Types Packs/Day Years Used Date Smoking Tobacco: Every Day Cigarettes 0.5 30 Passive Smoke Exposure: Never Smokeless Tobacco: Never Tobacco Cessation:Ready to Q uit: Not Asked; Counseling Given: Not Answered Comments:4-5 cigarettes a day Alcohol Use Standard Drinks/Week Comments Not Currently 0 (1 standard drink = 0.6 oz pur e alcohol) ocassionally [facility] Utilities Answer Date Recorded In the past 12 months has e electric, gas, oil, or water [employer] threatened to shut off services in your [...] any clubs o r organizations such as judaism groups, unions, fraternal [...] [facility] of Occupat ional Health - Occupational Stress [...] Visit Department of Obstetrics and Gynecology in [address] [phone] Aniya Toledo, RX SPECIALIST, C.N.P., NP-BC [address] [place] [phone] Discharge Disposition: Home or Self Care documented as of this encounter Visit Diagnoses Not on filedocumented in this encounter Care Teams Wrapper Stripper Relationship Specialty Start Date End Date Ro Norton APRN, C.N.P., D.N.P. PCP - General Family Medicine 05/07/19 documented as of this encounter
[2024-05-17 00:59] LABS: PCO2 VBG 66 mmHG (40-50)
[2024-05-17 01:01] LABS: Chloride* 98 mmol/L (96-114); Potassium* 4.2 mmol/L (3.6-5.1); Sodium* 138 mmol/L (135-149)
[2024-05-17 01:04] LABS: Anion Gap 4 mEq/L (7-15); Blood Urea Nitrogen* 26 mg/dL (7-30); Calcium* 8.6 mg/dL (8.4-10.6); Carbon Dioxide* 36 mmol/L (20-32); Creatinine* 0.8 mg/dL (0.5-1.5); Est. Creatinine Clearance* 86.38; Estimated Glomerular Filt Rate 89 ml/min; Glucose* 118 mg/dL (60-115)
[2024-05-17 01:05] LABS: Magnesium* 1.7 mg/dL (1.5-2.6)
[2024-05-17 01:19] LABS: NT Pro B Type NatriureticPept* 1110 pg/mL
[2024-05-17 01:23] LABS: PCR FLU A Negative PCR FLU A (Negative); PCR FLU B Negative PCR FLU B (Negative); PCR RSV Negative PCR RSV (Negative); SARS PCR* Negative SARS-CoV-2 (Negative)
[2024-05-17] MEDS: IBUPROFEN 600 MG TABLET PO (01:36)
[2024-05-17] MEDS: cefTRIAXone 2 GM in 0.9 % SODIUM CHLORIDE Mini-bag 100 ML IVPB (01:36)
[2024-05-17] MEDS: ALBUTEROL SULFATE 2.5 MG/3 ML VIAL.NEB NEB (01:36)
== END 2024-05-17 02:26 | disposition home or self-care (01) ==
PROVIDERS: Emergency Provider Family Medicine; PCP Nurse Practitioner Family
DX: J18.9 Pneumonia, unspecified organism (principal); J44.1 Chronic obstructive pulmonary disease with (acute) exacerbation; J96.21 Acute and chronic respiratory failure with hypoxia
CPT/HCPCS: 36415; 71046; 80048; 82803; 83735; 83880; 87631; 94640; 96365; 99285; A9270; J0696; J7512

== ENCOUNTER 2025-02-13 05:13 | Observation (INO) | payer MEDICAID, SELFPAY ==
--- OUTSIDE RECORDS SUMMARY | 2025-02-12 12:40 | XMS_ITS | Encounter Summary ---
Author Organization [facility] Address [address] [place] [address] Care Team Providers Care Building Supplies Salesperson Retail Name Role Phone Elsewhere, Pcp Primary Care Provider Unavailabl e Reason for Visit * ReasonCommentsUpper Respiratory InfectionPatient has complaint of chest congestion and is requesting an antibiotic and steroid treatment. History includes pulmonary hypertension, CHF, COPD, pneumonia, respiratory failure. Encounter Details DateTypeDepartmentCare Team (Latest Contact Info)Fibkhcikdlo50/24/2025 12:40 PM CSTTelemedicine [facility] at [address] [phone] Ashley Figueroa APRN, C.N.P., M.S.N. [address] [place] [address] Infection Upper Respiratory (Primary Dx) Social History Tobacco UseTypesPacks/DayYears UsedDateSmoking Tobacco: Every DayCigarettes0.530 Passive Smoke Exposure: NeverSmokeless Tobacco: Never Comments:4-5 cigarettes a da y Alcohol UseStandard Drinks/WeekCommentsNot Currently0 (1 standard drink = 0.6 oz pure alcohol)ocassionallyAHC UtilitiesAnswerDate RecordedIn the past 12 months has the electric, gas, oil, or water [employer] threatened to shut off services in your home?No06/25/2024Humiliation, Afraid, Rape, and Kick questionnaireAnswer Date RecordedWithin the last year, have you been afraid of your partner or ex-partner?No11/01/2023Within the last year, have you been humiliated or emotionally abused in other ways by your partner or ex-partner?No11/01/2023 Within the last year, have you been kicked, hit, slapped, or otherwise physically hurt by your partner or ex-partner?No11/01/2023Within the last year, have you been raped or forced to have any kind of sexual activity by your part ner or ex-partner?No11/01/2023Hunger Vital SignAnswerDate RecordedWithin the past 12 months, you worried that your food would run out before you got the money to buymore.Never true06/25/2024Within the past 12 months, the food you bought just didn't last and you didn't have money to get more.Never true 06/25/2024PRAPARE - TransportationAnswerDate RecordedIn the past 12 months, has lack of transportation kept you from medical appointments or from getting medications?No06/25/2024In the past 12 months, has lack of transportation kept you from meetings, work, or from getting things needed for daily living?No 06/25/2024Housing StabilityAnswerDate RecordedWhat is your living situation today?I have a steady place to live06/25/2024EducationAnswerDate RecordedWhat is the highest level of school you have completed or the highest degree you have received?12th grade11/13/2019CommentsNoSex and Gender InformationValue Date RecordedSex Assigned at EurboScfbtu06/25/2021 12:54 PM CDTLegal SexFemale 06/04/2018 1:36 PM CDTGender RadwprcjKbvfix95/22/2020 2:43 PM CDTSexual OkjgplkglymFodszjoi59/22/2020 2:43 PM CDTdocumented as of this encounter Progress Notes * Ashley Figueroa APRN, C.N.P., M.S.N. - 02/12/2025 12:40 PM CST SUBJECTIVE CHIEF COMPLAINT / REASON FOR VISIT Allison Schulz is a 54 y.o. female who presents for evaluation of Upper Respiratory Infection (Patient has complaint of chest congestion and is requesting an antibiotic and steroid treatment. History includes pulmonary hypertension, CHF, COPD, pneumonia, respiratory failure.). She is on oxygen. Patient has complaint of respiratory symptoms and complicated respiratory history, which does not meet inclusion criteria for Express Care guidelines. Allison Schulz's symptoms do not meet criteria for [facility]. She was instructed she would need an in-person exam so that her vital signs and lungs can be evaluated. The patient agrees with the recommendations. There were no vitals taken for this visit. UTIVE CANDIDATE DEVELOPER documented in this encounter Plan of Treatment Not on file documented as of this encounter Visit Diagnoses Diagnosis Infection Upper Respiratory- Primary documented in this encounter Care Teams Team MemberRelationshipSpecialtyStart DateEnd Date Elsewhere, Pcp PCP - GeneralInternal Tumqnnvm68/14/25documented as of this encounter
--- OUTSIDE RECORDS SUMMARY | 2025-02-12 15:00 | XMS_ITS | Encounter Summary ---
Author Organization [facility] Address [address] [place] [address] Care Team Providers Care Staff Cytotechnologist Name Role Phone Elsewhere, Pcp Primary Care Provider Unavailabl e Reason for Visit * ReasonCommentsCough * Appointment Request (Routine) - ClosedSpecialtyDiagnoses / ProceduresReferred By ContactReferred To ContactFamily Medicine Referral IDStatusReasonStart DateExpiration DateVisits RequestedVisits [id number]/24/20253/ Encounter Details DateTypeDepartmentCare Team (Latest Contact Info)Ogkodpxvquw48/24/2025 3:00 PM CSTTelemedicine [facility] [address] [place] [address] Ignacio Sutton M.D. [address] [place] [address] Chronic Obstructive Pulmonary Disease Exacerbation (HCC) (Primary Dx) Social History Tobacco UseTypesPacks/DayYears UsedDateSmoking Tobacco: Every DayCigarettes0.530 Passive Smoke Exposure: NeverSmokeless Tobacco: Never Comments:4-5 cigarettes a da y Alcohol UseStandard Drinks/WeekCommentsNot Currently0 (1 standard drink = 0.6 oz pure alcohol)ocassionallyAHC UtilitiesAnswerDate RecordedIn the past 12 months has the electric, gas, oil, or water company threatened [...] and Gender InformationValue Date RecordedSex Assigned at FevsrFakhkd25/25/2021 12:54 PM CDTLegal SexFemale 06/04/2018 1:36 PM CDTGender MiabibycXuaemi17/22/2020 2:43 PM CDTSexual RgnimekzvziDhqvyohd88/22/2020 2:43 PM CDTdocumented as of this encounter Progress Notes * Ignacio Sutton M.D. - 02/12/2025 3:00 PM CST SUBJECTIVE Consult conducted via real-time audio/video technology by Ignacio Sutton M.D. working in the [facility] location to the patient's home. Chief Complaint Patient presents with Cough HISTORY OF PRESENT ILLNESS 54 years-old Female presenting with Cough. AI SUMMARY: 54-year-old female with history of asthma presents for cough with phlegm, barking cough, and coughing fits for 3 days, associated with headache (worse with coughing), mild sore throat, shortness of breath, fatigue, and chills; symptoms are mild and persistent, worsened by physical activity and deep breathing. Has taken cough suppressants since symptoms started. Denies fever, chest pain, or COVID-19 exposure; COVID-19 antigen/PCR test negative since symptom onset, and no at-home influenza test done. - Quality: Cough with phlegm, Barking cough (coughing fits), Persistent - Severity: Mild - Made worse by: Physical activity, Deep breathing - Trend: The same - Potential triggers ruled out: Recent travel, Eating, Drinking fluids, Exposure to animals/pets, Exposure to cold, Eating suspect food - Does not seem to be worse at any particular time of day/month/cycle/year - Exact starting time: 3 Days ASSOC. SYMPTOMS / EXPOSURE - Headache - Made worse by: Coughing - Started: Gradually - Potential triggers ruled out: Physical activity, Resting or relaxing, Recent injury, Reading, Stress, [place], Heat or sun exposure - Location: Back of the head - Sore throat - Patient unable to indicate the nature/type of the sensation - no typical quality descriptors selected. - Severity: Mild - No aggravating factors identified -- Eating, Lying down, Swallowing - Started: Gradually - Shortness of breath - Fatigue - Chills NOTE FROM PATIENT: chest cold Respiratory - Feb 12, 2025 - History of asthma or regular inhaler usage ?? - Has taken cough suppressants since the symptoms started - No COVID-19 in last 6 months (or knowledge thereof) - No COVID-19 booster shot in the last 6 months - Negative (antigen/PCR) COVID-19 test since symptoms started - No at-home influenza test done since symptom onset ?? Recent care & triage details - Feb 12, 2025 - No prior in-person evaluation for current symptoms & intake - Feb 12, 2025 - Denies possibility of - Not currently DENIES SYMPTOMS - GENERAL X Fever X Malaise X Lymph node swelling - HEENT X Runny nose X Ear pain X Hoarseness X Nasal congestion X Sneezing X Tender sinuses - NEURO X Dizziness - CARDIAC X Chest pain - MUSCULOSKELETAL X Muscle pain - EXPOSURE X Exposure to sick people - OTHER X Loss of taste or smell X COVID-19 exposure Medical History[1] Current Medications[2] REVIEW OF SYSTEMS All systems reviewed with pertinent positives/negatives documented above in HPI; all other review of systems negative. OBJECTIVE Physical Exam General: AAO x 3. Appears well-developed and well-nourished. Pulmonary: Effort appears normal. Does not appear to be in acute respiratory distress. Speaking in complete sentences. Skin: Appears to be intact and dry with no rash, erythema or lesions. Psychiatric: Normal mood and affect. Behavior is normal. Judgement and thought content are normal. ASSESSMENT / PLAN #1 Chronic Obstructive Pulmonary Disease Exacerbation (HCC) - predniSONE (Deltasone) 20 mg tablet; Take 1 tablet (20 mg total) by mouth daily for 5 days., Starting Mon02/12/2025, Until Mon02/17/2025, Normal Patient has a chest cold. Patient usually receives azithromycin and steroid and it will clear it up. Patient is on oxygen 12/09 Patient currently using her nebulizer. Symptoms started 2-3 days ago. Pulse oxy 82%, with oxygen on. Patient states that is normal for her. Took a home covid test and it was negative. Patient states she has no way to leave her house, no oxygen case. She has no transportation. Daughter does not have a car either. Reviewed my concerns with patient. She states my PCP knows me, and i always have low oxygen level. I advised patient she should call 911 or try to seek care in person. She appears well, speaking in full sentences, will start oral steroids. But I advised she seek in person immediately. We have discussed supportive care, return precautions, and symptoms that would prompt more urgent evaluation. All questions answered to the patient's satisfaction. Confirmed patient's allergies and discussed the benefits and risks of today's treatment plan, including side effects of medications and/or ordered procedures. The patient was instructed on the follow up plan, return symptoms were reviewed, how to contact for questions was discussed, and the patient was advised of the limitations of video and the possible need for in person visit with worsening symptoms. Patient verbalized understanding and agrees with the plan. Denies any additional questions at this time. Health Maintenance Topic Date Due Colorectal Cancer Screening Never done Pneumococcal vaccine (50+ years) (1 of 2 - PCV) Never done Hepatitis B Vaccines (1 of 3 - 19+ 3-dose series) Never done Mammogram 03/13/2019 RSV vaccine - (32-36 weeks) or 50+ years (1 - Risk 50-74 years 1-dose series) Never done Zoster Vaccines (1 of 2) Never done COVID-19 Vaccine (1 - 2024- season) Never done Influenza Vaccine (1) 10/21/2024 Creatinine Level (Kidney Function Test) 05/01/2025 Potassium Level 05/01/2025 Sodium Level 05/01/2025 Tobacco Cessation counseling 05/16/2025 Cervical/Vaginal Cancer Screening 07/23/2026 Lipid (Cholesterol) Screening 07/23/2026 Fasting Glucose for Diabetes Screening 05/02/2027 DTaP,Tdap,and Td Vaccines (3 - Td or Tdap) 10/22/2029 Depression Screening (Annual PHQ-2) Completed IPV Vaccines Aged Out Hepatitis B Screening Discontinued [1] Past Medical History: Diagnosis Date Asthma NOS 01/2000 Chronic Obstructive Pulmonary Disease (HCC) 10/2007 Heart Failure NOS Hepatitis C 2016 Other Injury Of Unspecified Body Region 2019 Pneumonia N/A Psoriasis [2] Current Outpatient Medications Medication Sig Dispense Refill albuterol 90 mcg/actuation inhaler Inhale 2 puffs 4 (four) times a day. 54 g 2 DME Oxygen DME Order - for details see Order Report 1 each 0 fluticasone propion-salmeteroL (Advair Diskus) 250-50 mcg/dose diskus inhaler Inhale 1 puff 2 (two)times a day. Rinse mouth with water after use to reduce aftertaste and incidence of candidiasis. Donot swallow. 60 each 0 food supplemt, lactose-reduced (Ensure) liquid Take 1 bottle (237 mL) by mouth daily. Medically necessary 7110 mL 0 furosemide (Lasix) 40 mg tablet Take 1 tablet (40 mg total) by mouth daily. 90 tablet 3 Home Nebulizer Plus Sidestream device See Admin Instructions. ipratropium-albuteroL (DuoNeb) 0.5-2.5 mg/3 mL nebulizer solution Inhale 3 mL by nebulization 4 (four) times a day. 180 mL 11 multivitamin capsule Take 1 capsule by mouth daily. Opsumit 10 mg tablet Take 1 tablet daily. 30 tablet 11 pramipexole (Mirapex) 0.125 mg tablet TAKE 2 TABLETS BY MOUTH AT BEDTIME (Patient not taking: Reported on 10/03/2024) 180 tablet 0 predniSONE (Deltasone) 20 mg tablet Take 1 tablet (20 mg total) by mouth daily for 5 days. 5 tablet0 sildenafil (Revatio) 20 mg tablet TAKE ONE TABLET BY MOUTH THREE TIMES A DAY 90 tablet 11 Suboxone 8-2 mg per SL film No current facility-administered medications for this visit. 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
[2025-02-13] VITALS (10 sets, daily range): BP systolic 91–109; BP diastolic 53–74; PULSE 69–86; RESP 18–34; TEMP 36.8–37.3; O2SAT 56–93; BMI 22.0; BMI 18.7
--- OUTSIDE RECORDS SUMMARY | 2025-02-13 05:16 | XMS_ITS | Encounter Summary ---
Author Organization [facility] Address [address] [place] [address] Care Team Providers Care Oil Laboratory Analyst Name Role Phone Elsewhere, Pcp Primary Care Provider Unavailabl e Reason for Visit * ReasonOnset DateCommentsMed Qlyprl6912/03/2024 Encounter Details DateTypeDepartmentCare Team (Latest Contact Info)Lrkhadcjdpi64/14/2025Refill Department of Family Medicine, [facility], in [address] [phone] Ro Norton APRN, C.N.P., D.N.P. Med Refill Social History Tobacco UseTypesPacks/DayYears UsedDateSmoking Tobacco: Every DayCigarettes0.530 Passive Smoke Exposure: NeverSmokeless Tobacco: Never Comments:4-5 cigarettes a da y Alcohol UseStandard Drinks/WeekCommentsNot Currently0 (1 standard drink = 0.6 oz pure alcohol)ocassionallyBARBERTON CITIZENS H[facility]PITAL UtilitiesAnswerDate RecordedIn the past 12 months has the [employer], oil, or water [employer] threatened to shut off services in your home?No06/25/2024Humiliation, Afraid, Rape, and Kick questionnaireAnswer Date RecordedWithin the last year, have you been afraid of your partner or ex-partner?11/01/2023Within the last year, have you been humiliated [...] and Gender InformationValue Date RecordedSex Assigned at IrbswKoeozd33/25/2021 12:54 PM CDTLegal SexFemale 06/04/2018 1:36 PM CDTGender VaogkdhdFkugbh42/22/2020 2:43 PM CDTSexual ZnaiqsttahaXhpdkwbn79/22/2020 2:43 PM CDTdocumented as of this encounter Miscellaneous Notes * Telephone Encounter - Chiqui, Shaina Cabrera - 12/03/2024 12:01 PM CDT Images from the original note were not included. Needs Review: Med Refill Team is unable to forward request to provider. Discrepancy; Verification Required. Same med? Primary Provider: Ro Norton APRN, C.N.P., D.N.P. Requested Prescriptions Pending Prescriptions Disp Refills fluticasone propion-salmeteroL (Advair Diskus) 250-50 mcg/dose diskus inhaler 60 each 0 Sig: Inhale 1 puff 2 (two) times a day. Rinse mouth with water after use to reduce aftertaste and incidence of candidiasis. Do not swallow. documented in this encounter Plan of Treatment Not on file documented as of this encounter Visit Diagnoses Diagnosis Chronic Obstructive Pulmonary Disease Exacerbation (HCC) documented in this encounter Care Teams Team MemberRelationshipSpecialtyStart DateEnd Date Elsewhere, Pcp PCP - GeneralInternal Cyuaovps97/14/25documented as of this encounter
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
--- OUTSIDE RECORDS SUMMARY | 2025-02-13 05:16 | XMS_ITS | Clinical Summary ---
Author Organization [facility] Address [address] [place] [id number] Care Team Providers Care Log Operations Coordinator Name Role Phone Pcp, No Primary Care Provider Unavailabl e Allergies Active AllergyReactionsCriticalityNoted DateCommentsSulfa (Sulfonamide Antibiotics)Vbrfhxcffu07/11/2018 Medications MedicationSigDispense QuantityRefillsLast FilledStart DateEnd DateStatus albuterol HFA (VENTOLIN HFA) 90 mcg/actuation inhaler Indications:BronchitisInhale 2 Puffs by mouth every 4 hours if needed. 18 g 10/31/2018Active zinc sulfate 50 mg zinc (220 mg) capsule Take 220 mg by mouth.Active sildenafiL, pulm.hypertension, (REVATIO) 20 mg tablet Take 20 mg by mouth 3 times daily.1Active Docosahexanoic Acid-Eicosapent 120-180 mg cap Take 1,000 mg by mouth.Active ascorbic acid, vitamin C, (VITAMIN C) 100 mg tablet Take 100 mg by mouth.Active oxygen-air delivery systems (HOME OXYGEN) Inhale 1 L into affected nostril(s).Active multivitamin capsule Take 1 Capsule by mouth once daily.Active Suboxone 8-[address] 1 Film under the tongue once daily.5Active furosemide (LASIX) 40 mg tablet Take 40 mg by mouth once daily in the morning.5Active Active Problems ProblemNoted DateDiagnosed DateChronic hypoxic respiratory failure, on home oxygen meiasxq11/02/2025Congestive heart zctaltw5112/20/2022Restless leg syndrome 06/09/2022Other secondary pulmonary xzmiygovuzat64/17/2020Tobacco use03/02/2017 Chronic obstructive airway ipcjjdn3603/02/2017 Overview (10/22/2024): AI Summary: The patient had a history of COPD, with FEV1 30% in 2020. In 10/2023, the patient was possibly experiencing an exacerbation of COPD, potentially triggered by a rhinovirus/enterovirus infection. Imaging from 02/2017 showed hyperinflated lungs with flattened hemidiaphragms consistent with COPD. 11/01/23: SpO2 81.0 % 11/01/23: HR 76.0 /min On meds: albuterol, fluticasone / salmeterol, predniSONE Recent encounter dx: 05/16/24: Telemedicine - Department of Family Medicine, [facility], in [place], [place], Family Medicine (from [facility]) 10/30/23: Emergency - [facility], Emergency Medicine (from [facility]) 12/31/21: Emergency - [facility], Emergency Medicine (from [facility]) 07/23/21: Office Visit - Department of Family Medicine, [facility], in [place], [place], Family Medicine (from [facility]) 03/01/21: Telemedicine - Department of Family Medicine, [facility], in [place], [place], Family Medicine (from [facility]) Recent studies: 03/02/17: XR CHEST 2 VIEWS PA AND LATERAL by Terrence Cleary MD, Lorenzo Avalos DO ... [+] Hyperinflated lungs with flattened hemidiaphragms consistent with COPD. ... [-] COPD. ... [+] Impression: 1. Previous median sternotomy. 2. COPD. 3. Bilateral subsegmental atelectasis or fibrosis left greater than right. Pneumonia in the left lower lung zone not excluded. 4. Marked pulmonary arterial enlargement suggesting pulmonary arterial hypertension. Recent notes: 10/31/23: H&P Notes - H&P by Jorge López M.D. (from [facility]) ... [+] The patient's background medical history includes COPD (FEV1 30% in 2020), PDA S/P ligationon 2007, severe pulmonary hypertension and tobacco use. ... [+] #GOLD E COPD (FEV1 30% in 2020) with exacerbation 10/31/23: H&P Notes - H&P by Corin Chauhan M.D. (from [facility]) ... [+] She has a history of COPD, pulmonary HTN, HFpEF with severely enlarged RV chamber size and right ventricular systolic pressure of 82mmHg (last echo Feb 2023), current tobacco use (4 cigarettes/day), and HCV. 01/07/22: ED Notes - ED Provider Notes by Pj Jones C.N.P. (from [facility]) ... [+] Allison Schulz is a 51 y.o. female with a history of COPD, PDA s/p ligation (2007), severe pulmonary hypertension, and tobacco use who presents to the ED for evaluation of Edema in legs. ... [+] Chronic Obstructive Pulmonary Disease (HCC) ... [+] Chronic Obstructive Pulmonary Disease Without Exacerbation (HCC) ... [-] While less likely, other possible etiologies for the patient's symptoms includes ACS, COPD,asthma/reactive airway disease, cardiac valvular disorders, pulmonary embolism, pneumonia, pneumothorax, pleural effusion, influenza, covid 19. 10/31/18: Progress Notes - Nursing Notes by Allison Richardson NP ... [+] Her health history is complicated by open heart surgery in 2007 in [place], and reports a past diagnosis of COPD and pulmonary HTN. ... [+] ? COPD (chronic obstructive pulmonary disease) (HC) 03/30/17: Progress Notes by Julio Manriquez MD ... [+] Acute exacerbation of COPD with asthma (HC) J44.1 predniSONE (DELTASONE) 20 mg tablet Resolved Problems ProblemNoted DateDiagnosed DateResolved DateAcute respiratory failure with okmyoxg59/03/2024 Immunizations ImmunizationAdministration DatesNext DueInfluenza Virus, Vibjfllchrs43/12/2021 Tdap10/23/2019,10/04/2019 Family History Medical HistoryRelationNameCommentsCancer-breastMaternal Grandmother Cancer-breastOthercousinRelationNameStatusCommentsMaternal GrandmotherOther Social History Tobacco UseTypesPacks/DayYears UsedDateSmoking Tobacco: Every DayCigarettes Smokeless Tobacco: Never Tobacco Cessation:Ready to Q uit: Not Asked; Counseling Given: Not Answered Alcohol UseStandard Drinks/WeekCommentsYes0 (1 standard drink = 0.6 oz pure alcohol)occSocial ConnectionsAnswerDate RecordedDo you often feel lonely or isolated from those around you?Financial Resource StrainAnswerDate RecordedDifficulty of Paying Living Ltyducwi934/25/2025Difficulty of Paying Living ExpensesNot on file12/14/2024Food InsecurityAnswerDate RecordedDo you worry your food will run out before you are able to buy more? Transportation NeedsAnswerDate RecordedDoes lack of transportation keep you from medical appointments?Does lack of transportation keep you from work, meetings or getting things that you need?Housing StabilityAnswerDate RecordedWhat is your housing situation today?UtilitiesAnswerDate RecordedDo you have trouble paying for utilities (for example, heat, electricity, water, phone)?CommentsNoSex and Gender InformationValueDate RecordedSex Assigned at BirthNot on fileLegal SexFemale 03/02/2017 8:39 AM CSTGender IdentityNot on fileSexual OrientationNot on file OccupationIndustryJob Start DateJob End DateNot on fileNot on fileNot on fileNot on file Last Filed Vital Signs Vital SignReadingTime TakenCommentsBlood Osfdgeij892/8009 3:41 PM CDT Yuldn5552/11/2019 3:41 PM AEWPgpoykrrstr98.5 ??C (97.7 ??F)10/31/2018 3:41 PM CDTRespiratory Wizi473510/31/2018 3:41 PM CDTOxygen Bgwuqstzgt12%10/31/2018 3:41 PM CDTInhaled Oxygen Concentration--Tbauyu72.9 kg (163 lb)10/31/2018 3:41 PM CDT Wmkigz111 cm (5' 10.08)10/31/2018 3:41 PM CDTBody Mass Index23.34010/31/2018 3:41 PM CDT Plan of Treatment DateTypeDepartmentCare Team (Latest Contact Info)Ashgbhznguw00/08/2026 2:30 PM CSTOffice Visit [facility] [address] [place] [address] Momo Mccarthy MD [address] [place] [address] Health MaintenanceDue DateLast DoneCommentsHIV for age 15-Hepatitis C screening for age 18-Hepatitis B series for 19+ (1 of 3 - 19+ 3- dose series)07/29/1991Pneumococcal series for age 50+ (1 of 2 - PCV)07/29/1991 Colonoscopy through age Lipids for age 45-Depression screening for age 12+Mammogram for age 40-03/13/2018BMI (ht and wt on same day) for age 18+, 02/26/2018RSV vaccine for adults or (1 - Risk 50-74 years 1-dose series)2022Zoster (shingles) series for age 50+ (1 of 2)2022OVID-19 vaccine series (1 - 2024-26 season)2024Influenza Vaccine (#1)2024 1Pap test for age 21- (Verified in Care Everywhere or Patient Record)Tetanus qnadjgm30, 10/04/2019 Procedures Procedure NamePriorityDate/TimeAssociated DiagnosisCommentsXR MAMMO BILAT NJEENJFJQPAPQU00/22/2019 3:48 PM HEEL FINISHER Breast lump from Last 3 Months or Most Recently Relevant to Health Maintenance Results * XR MAMMO BILAT DIAGNOSTIC (03/13/2018 3:48 PM HEEL FINISHER)Anatomical RegionLaterality ModalityBREASTS, Breast Left, Breast RightBilateralMammographySpecimen (Source)Anatomical Location / LateralityCollection Method / VolumeCollection TimeReceived Time03/13/2018 4:14 PM HEEL FINISHER Impressions 03/14/2018 1:26 PM HEEL FINISHER Normal fibroglandular tissue LEFT breast upper outer quadrant corresponding to the palpable abnormality. RECOMMENDATIONS: Annual screening mammography. BI-RADS Category 1: Negative Dictated by: Pj Bronson MD @03/13/2018 4:14:47 PM Narrative 03/14/2018 1:26 PM HEEL FINISHER BILATERAL BREAST FULL-FIELD DIAGNOSTIC MAMMOGRAM WITH COMPUTER-AIDED DETECTION 03/13/2018 ?? LEFT BREAST ULTRASOUND 03/13/2018 CLINICAL HISTORY: LEFT [...] fibroglandular tissue is present. Negative for malignancy. Authorizing ProviderResult TypeResult StatusLydia Veronique [facility] NPMAMMOFinal Result from Last 3 Months or Most Recently Relevant to Health Maintenance Insurance Care Teams Team MemberRelationshipSpecialtyStart DateEnd Date Pcp, No PCP - General11/14/24
--- NOTE | 2025-02-13 05:24 | CRLHL7_ITS ---
For Patients: As a result of the Century Cures Act, medical imaging exams and procedure reports are released immediately into your electronic medical record. You may view this report before your referring provider. If you have questions, please contact your health care provider. INDICATION: Dyspnea. COPD. COMPARISON: Studies dating back to March 26, 2022 TECHNIQUE: A single view study was obtained as a portable CXR, FINDINGS: As discussed below IMPRESSION: 1. Sternotomy. Enlarged heart. Dilated aorta. Profoundly enlarged central pulmonary arteries. Similar appearance to studies dating back to 2022. Likely related to congenital cardiac disease and associated surgical procedures. 2. Linear areas of atelectasis and scarring. 3. Focal opacities at both bases, left greater than right. This is new and could represent atelectasis or developing infiltrate. 4. No pleural effusion or pneumothorax. Dictated by Reji Alvarado MD @ 02/13/2025 6:05:25 AM (Electronically Signed)
--- NOTE | 2025-02-13 05:26 | ED.GENADULT ---
HPI - General Adult General Date Seen: 02/13/25 Chief complaint: Shortness of Breath/Dyspnea Stated complaint: shortness of breath Time Seen by Provider: 02/13/25 05:17 Source: patient, RN notes reviewed and old records reviewed Mode of arrival: ambulatory Limitations: no limitations History of Present Illness HPI narrative: This 54-year-old female with known COPD is coming in with worsening shortness of breath. She developed an upper respiratory infection last couple days, states she did do a home COVID and flu test which was negative. She has had no fevers. She has had increased sputum production, increased shortness of breath. She has been doing her breathing treatments and nebs at home without relief. She awoke short of breath. She has a history of COPD, hypo magnesemia, tobacco use, severe pulmonary hypertension, CHF. She follows with [facility]. She has an excellent note from ED visit on 05/17/[address] Belle. She baseline now is on 6 L oxygen at home. Her baseline home O2 sats are 70 to 80s. This is been documented in medical note before as well. She came in at 56% on room air. She states she did get a prescription for an antibiotic and prednisone but will not be able to pick it up until Monday. Thus, she has not started. Patient came in without her home oxygen. Related Data Home Medications ?Medication ?Instructions ?Recorded ?Confirmed albuterol sulfate 90 mcg/actuation 2 puff inhalation QID PRN 01/10/22 02/13/25 aerosol inhaler (ProAir HFA) ipratropium 0.5 mg-albuterol 3 mg 3 ml inhalation QID 01/11/22 02/13/25 (2.5 mg base)/3 mL nebulization soln sildenafil (pulm.hypertension) 20 20 mg PO DAILY 01/11/22 02/13/25 mg tablet buprenorphine 8 mg-naloxone 2 mg 1 film sublingual DAILY 02/13/25 02/13/25 sublingual film (Suboxone) fluticasone 250 mcg-salmeterol 50 1 inh inhalation BID 02/13/25 02/13/25 mcg/dose blistr powdr for inhalation (Advair Diskus) furosemide 40 mg tablet 40 mg PO DAILY 02/13/25 02/13/25 macitentan 10 mg tablet (Opsumit) 10 mg PO DAILY 02/13/25 02/13/25 multivitamin (Daily Multi-Vitamin 1 tab PO DAILY 02/13/25 02/13/25 tablet) Previous Rx's ?Medication ?Instructions ?Recorded nebulizer accessories #1 ea 11/14/22 azithromycin 250 mg tablet 250 mg PO DAILY 3 days #3 tabs 02/14/25 oseltamivir 75 mg capsule 75 mg PO BID 4 days #8 caps 02/14/25 prednisone 20 mg tablet 40 mg (2 x 20 mg) PO DAILY 4 days 02/14/25 #8 tabs Allergies Allergy/AdvReac Type Severity Reaction Status Date / Time Sulfa (Sulfonamide Allergy Severe Verified 05/17/24 00:10 Antibiotics) Review of Systems Status of ROS: Reports: 6 or more systems reviewed and unremarkable except as noted in History and below [facility] Medical History (Updated 02/13/25 @ 15:29 by Chad Slade MD) Shortness of breath ?R06.02 - Shortness of breath (ICD-10) Constipation ?K59.00 - Constipation, unspecified (ICD-10) Hypomagnesemia ?E83.42 - Hypomagnesemia (ICD-10) Hemarthrosis ?M25.00 - Hemarthrosis, unspecified joint (ICD-10) Fracture of tibial plateau, closed ?S82.143A - Displaced bicondylar fracture of unspecified tibia, initial encounter for closed fracture (ICD-10) Fracture of ribs, multiple ?S22.49XA - Multiple fractures of ribs, unspecified side, initial encounter for closed fracture (ICD-10) Traumatic fracture of sternum ?S22.20XA - Unspecified fracture of sternum, initial encounter for closed fracture (ICD-10) Tobacco use ?Z72.0 - Tobacco use (ICD-10) Severe pulmonary hypertension ?I27.20 - Pulmonary hypertension, unspecified (ICD-10) CHF (congestive heart failure) ?I50.9 - Heart failure, unspecified (ICD-10) COPD (chronic obstructive pulmonary disease) ?J44.9 - Chronic obstructive pulmonary disease, unspecified (ICD-10) Social History What is your current living situation?: I presently have a place to live Problems where you live: no known problems In the past 12 months, utilities in danger of being shut off: no In past 12 months, lack of transportation kept you from medical appts, meetings, work, or getting things needed for daily living: no In the past 12 mos, have been you worried that your food would run out before you had money to buy more?: never true In the past 12 mos, the food you bought just didn't last and you didn't have money to buy more?: never true Smoking Status: Current every day smoker What tobacco products do you use: cigarettes Smoking packs per day: 0.5 Smoking cigarettes per day: 10.0 Do you use any of these nicotine containing products: None Second hand tobacco smoke exposure: No How often do you have a drink containing alcohol: never AUDIT-C Alcohol total score: 0 Non-prescribed substance use: denies use Caffeine: Yes How often does anyone, including family, friends and others, physically hurt you: never How often does anyone, including family, friends and others, insult or talk down to you: never How often does anyone, including family, friends and others, threaten you with harm: never How often does anyone, including family, friends and others, scream or curse at you: never service: No Exam Const: Vital Signs, click to edit/add: Vital Signs - 24 hr 02/13/25 05:24 02/13/25 05:24 02/13/25 05:33 Temperature 98.2 F Pulse Rate Pulse Rate [Right Pulse Oximeter] 82 Respiratory Rate 34 H Blood Pressure Blood Pressure [Ri ght Upper Arm] 109/72 Pulse Oximetry 75 L 56 L 56 L Oxygen Delivery Me thod Room Air Room Air 02/13/25 06:14 02/13/25 07:01 Temperature Pulse Rate 73 69 Pulse Rate [Right Pulse Oximeter] Respiratory Rate 24 20 Blood Pressure 109/73 106/70 Blood Pressure [Ri ght Upper Arm] Pulse Oximetry 79 L 80 L Oxygen Delivery Me thod This 54-year-old female is alert, interactive, no apparent distress but looks like she does not feel well. Is able to speak, no hoarseness, sclera clear, face atraumatic. Does seem to have some bluish discoloration to nail beds. Lungs with distant sounds both inspiratory and expiratory but do here and expiratory wheezing throughout. CV distant, do not hear any murmur. She is sitting upright on the bed with knees crossed. No appreciable lower extremity edema. Initial room air oxygenation is noted to be 54%. Nursing staff for working to get oxygen on her. Documenting provider has reviewed patient's vital signs: yes Course Course ED Course: Will give her 40 mg oral prednisone, portable chest x-ray. Will look at an EKG and full complement of labs to make sure that we are not missing anything cardiac in her. She is going to get a DuoNeb, may need to do some stacked nebs in this patient. Reevaluation(s) Time of Reevaluation #1: 06:23 Reevaluation #1: Patient is resting comfortably. O2 sats upper 70s which is at her baseline. Labs reviewed. Chest x-ray is looking like there may be new infiltrate which would be consistent with community-acquired pneumonia. I do think we should cover this patient with antibiotics. Will initiate Rocephin and Zithromax. She would prefer to stay in the hospital at this time, do think it is reasonable with her advanced severe lung disease. Will talk to the hospitalist. Consultations Consultation #1: Have reviewed with hospitalist Dr. Slade, he accepts. Will be making this patient observation status at this time. Time: 07:50 Vital Signs Vital signs: Initial Vital Signs Respiratory Effort Normal, Spontaneous, Non-Labored 02/13/25 05:24 Respiratory Depth Normal 02/13/25 05:24 Respiratory Pattern Normal 02/13/25 05:24 Pulse Oximetry 75 L 02/13/25 05:24 Oxygen Delivery Method Room Air 02/13/25 05:24 Vital Signs Pulse Oximetry 75 L 02/13/25 05:24 Oxygen Delivery Method Room Air 02/13/25 05:24 Temperature 98.5 F 02/14/25 07:00 Pulse Rate 62 02/14/25 07:00 Respiratory Rate 20 02/14/25 07:00 Blood Pressure 104/67 02/14/25 07:00 Pulse Oximetry 80 L 02/14/25 07:00 Oxygen Delivery Method Nasal Cannula 02/14/25 07:00 Oxygen Flow Rate 2 02/14/25 07:00 Medications Administered Medications: Discontinued Medications Generic Name Dose Route Start Last Admin Trade Name Freq PRN Reason Stop Dose Admin Acetaminophen 1,000 mg 02/13/25 07:52 02/13/25 08:00 Acetaminophen 500 Mg Tablet PO 02/13/25 07:53 1,000 mg ONCE ONE Administration Albuterol/Ipratropium 1 neb 02/13/25 05:25 02/13/25 05:29 Iprat-Albut 0.5-2.5 Mg/3 Ml Neb IH 02/13/25 05:26 1 neb ONCE ONE Administration Albuterol/Ipratropium 1 neb 02/13/25 09:00 02/14/25 08:15 Iprat-Albut 0.5-2.5 Mg/3 Ml [facility] 1 neb QID DAWIT Administration Azithromycin 500 mg 02/13/25 06:25 02/13/25 06:40 Azithromycin 250 Mg Tablet PO 02/13/25 06:26 500 mg ONCE ONE Administration Azithromycin 250 mg 02/14/25 08:00 02/14/25 07:25 Azithromycin 250 Mg Tablet PO 02/17/25 08:01 250 mg Q24H DAWIT Administration Buprenorphine/Naloxone 1 each 02/13/25 10:15 02/13/25 13:06 Buprenorphine-Nalox 8-2mg Film SUBLINGUAL 1 each DAILY DAWIT Administration Fluticasone Propionate 2 spray 02/13/25 09:00 02/13/25 10:03 Fluticasone Propionate Nasal NOSTRIL-B Not Given DAILY DAWIT Furosemide 20 mg 02/13/25 09:00 02/13/25 10:03 Furosemide 20 Mg Tablet PO Not Given DAILY DAWIT Ceftriaxone Sodium 1 gm/ 100 mls @ 200 mls/hr 02/13/25 06:25 02/13/25 07:21 Sodium Chloride IVPB 02/13/25 06:54 Infused ONCE ONE Infusion Ceftriaxone Sodium 1 gm/ 100 mls @ 200 mls/hr 02/14/25 07:00 02/14/25 07:00 Sodium Chloride IVPB Infused Q24H DAWIT Infusion Fluticasone Propion- 0 inhalation 02/13/25 21:00 02/13/25 20:54 Salmeterol [Advair IH 1 inhalation Diskus] 250-50 Mcg/ BID DAWIT Administration Dose Oseltamivir Phosphate 75 mg 02/13/25 10:18 02/13/25 20:54 Oseltamivir Phosphate 75 Mg Capsule PO 02/17/25 21:01 75 mg BID DAWIT Administration Pramipexole Dihydrochloride 0.125 mg 02/13/25 09:00 02/13/25 10:04 Pramipexole 0.125 Mg Tablet PO Not Given DAILY [facility] Prednisone 40 mg 02/13/25 05:25 02/13/25 06:16 Prednisone 20 Mg Tablet PO 02/13/25 05:26 40 mg ONCE ONE Administration Prednisone 40 mg 02/13/25 09:00 02/13/25 10:04 Prednisone 20 Mg Tablet PO Not Given DAILY [facility] Sildenafil Citrate 20 mg 02/13/25 09:00 02/13/25 10:04 Sildenafil Citrate 20 Mg Tablet PO Not Given DAILY [facility] Sodium Chloride 5 ml 02/13/25 09:00 02/13/25 20:54 Sodium Chloride 0.9 % (Flush) 10 Ml Syringe IVF 5 ml BID DAWIT Administration Medical Decision Making Lab Data Lab results reviewed: Yes I reviewed the patient's lab results Labs: Lab Results 02/13/25 02/13/25 Range/Units 05:28 05:50 WBC 5.41 (4.50-11.00) K/uL RBC 5.14 (4.00-5.20) m/uL Hgb 17.0 H (12.0-16.0) gm/dL Hct 53.1 H (33.0-51.0) % MCV 103 H (80-100) fL MCH 33 (26-34) pg MCHC 32 (32-36) gm/dL RDW Coeff of Jovan 13.2 (11.5-15.5) % Plt Count 69 L (140-440) K/uL Neut % (Auto) 38.3 L (42.0-72.0) % Lymph % (Auto) 51.8 H (20-44) % Harvey % (Auto) 8.7 (0.0-11.0) % Eos % (Auto) 0.4 (0.0-7.0) % Baso % (Auto) 0.4 (0.0-3.0) % Neut # (Auto) 2.10 (1.7-7.0) K/uL Lymph # (Auto) 2.80 (0.90-2.90) K/uL Harvey # (Auto) 0.50 (0.00-0.90) K/UL Eos # (Auto) 0.02 (0.00-0.50) K/uL Baso # (Auto) 0.02 (0.00-0.30) K/uL Abs Immat Gran (auto) 0.02 (0.00-0.30) K/uL Imm/Tot Granulo (auto) 0.4 % VBG pH 7.382 (7.32-7.43) VBG pCO2 59 H (40-50) mmHG VBG pO2 < 30.0 (25-47) mmHG VBG HCO3 35 H (21-28) mmol/L Sodium 135 (135-149) mmol/L Potassium 4.8 (3.6-5.1) mmol/L Chloride 98 (96-114) mmol/L Carbon Dioxide 33 H (20-32) mmol/L Anion Gap 4 L (7-15) mEq/L BUN 26 (7-30) mg/dL Creatinine 0.8 (0.5-1.5) mg/dL Estimated Creat Clear 82.98 Estimated GFR 89 ml/min Glucose 92 (60-115) mg/dL Lactate 1.2 (0.5-1.9) mmol/L Calcium 8.5 (8.4-10.6) mg/dL Magnesium 1.7 (1.5-2.6) mg/dL Total Bilirubin 0.8 (0.1-1.5) mg/dL AST 90 H (12-35) U/L ALT 94 H (4-35) U/L Alkaline Phosphatase 102 (40-150) U/L Troponin I 0.02 (0.01-0.04) ng/mL C-Reactive Protein 0.9 (0.5-1.0) mg/dL NT-Pro-B Natriuret Pep 466 H (See Note) pg/mL Total Protein 7.2 (6.0-8.3) g/dL Albumin 3.9 (3.3-5.0) g/dL Lab Acknowledgement Test Added Imaging Data Chest x-ray: Attestation: I have reviewed the pertinent imaging results. Radiologist's impression: Patient: MALCOM PEREZ Facility:?[facility] Patient ID:?[id number] Site Patient ID:?[id number]. Site :?[id number] Study:?XRay-Chest Portable-02/13/2025 5:55:04 AM Ordering Physician:Gagandeep Escalante Final Report: INDICATION: Dyspnea. COPD. COMPARISON: Studies dating back to March 26, 2022 TECHNIQUE: A single view study was obtained as a portable CXR, FINDINGS: As discussed below IMPRESSION: 1. Sternotomy. Enlarged heart. Dilated aorta. Profoundly enlarged central pulmonary arteries. Similar appearance to studies dating back to 2022. Likely related to congenital cardiac disease and associated surgical procedures. 2. Linear areas of atelectasis and scarring. 3. Focal opacities at both bases, left greater than right. This is new and could represent atelectasis or developing infiltrate. 4. No pleural effusion or pneumothorax. Dictated by Reji Alvarado MD @ 02/13/2025 6:05:25 AM (Electronic Signature) ECG Data Attestation: I personally reviewed and interpreted this ECG as follows: (Normal sinus rhythm, incomplete right bundle branch block, rate 74. Poor R-wave progression anterior precordial leads. Right axis deviation. ) Prior ECG tracings: not available for review Discharge Plan Discharge Patient Disposition: Admitted As Inpatient Condition: Stable Activity Level: Activity as Tolerated Discharge Diet: Regular Procedures ABG Interpretation ABG Results: 02/13/25 05:28 VBG pH 7.382 VBG pCO2 59 H VBG pO2 < 30.0 VBG HCO3 35 H
[2025-02-13] MEDS: IPRAT-ALBUT 0.5-2.5 MG/3 ML NEB 1 NEB IH ×5 (05:29→20:54)
[2025-02-13 05:39] LABS: Lactate* 1.2 mmol/L (0.5-1.9)
[2025-02-13 05:44] LABS: Chloride* 98 mmol/L (96-114)
[2025-02-13 05:45] LABS: Albumin* 3.9 g/dL (3.3-5.0); Potassium* 4.8 mmol/L (3.6-5.1); Sodium* 135 mmol/L (135-149)
[2025-02-13 05:47] LABS: Blood Urea Nitrogen* 26 mg/dL (7-30); Creatinine* 0.8 mg/dL (0.5-1.5); Est. Creatinine Clearance* 82.98; Estimated Glomerular Filt Rate 89 ml/min
[2025-02-13 05:48] LABS: Alanine Aminotransferase* 94 U/L (4-35); Alkaline Phosphatase* 102 U/L (40-150); Anion Gap 4 mEq/L (7-15); Aspartate Amino Transferase* 90 U/L (12-35); Bilirubin Total* 0.8 mg/dL (0.1-1.5); Calcium* 8.5 mg/dL (8.4-10.6); Carbon Dioxide* 33 mmol/L (20-32); Glucose* 92 mg/dL (60-115); Total Protein* 7.2 g/dL (6.0-8.3)
[2025-02-13 05:54] LABS: Hematocrit* 53.1 % (33.0-51.0); Hemoglobin* 17.0 gm/dL (12.0-16.0); Immature Granulocytes Abs Auto 0.02 K/uL (0.00-0.30); Immature Granulocytes Pct Auto 0.4 %; Lymphocytes Absolute Auto 2.80 K/uL (0.90-2.90); Mean Corpuscular HGB Conc 32 gm/dL (32-36); Mean Corpuscular Hemoglobin 33 pg (26-34); Mean Corpuscular Volume 103 fL (80-100); RDW Coefficient of Variation % 13.2 % (11.5-15.5); Red Blood Count* 5.14 m/uL (4.00-5.20); White Blood Count* 5.41 K/uL (4.50-11.00)
[2025-02-13 05:59] LABS: HCO3 VBG 35 mmol/L (21-28); PCO2 VBG 59 mmHG (40-50); PO2 VBG < 30.0 mmHG (25-47); pH VBG 7.382 (7.32-7.43)
[2025-02-13 06:00] LABS: NT Pro B Type NatriureticPept* 466 pg/mL (See Note)
[2025-02-13 06:02] LABS: Slide Review Reflex No
[2025-02-13] MEDS: cefTRIAXone 1 GM in 0.9 % SODIUM CHLORIDE Mini-bag 100 ML IVPB (06:40)
[2025-02-13] MEDS: AZITHROMYCIN 250 MG TABLET 500 MG PO (06:40)
--- NOTE | 2025-02-13 07:59 | ED.NURSE ---
Report given to BORIS Fu.
[2025-02-13] MEDS: ACETAMINOPHEN 500 MG TABLET 1000 MG PO (08:00)
[2025-02-13 09:39] LABS: PCR FLU A POSITIVE PCR FLU A (Negative); PCR FLU B Negative PCR FLU B (Negative); PCR RSV Negative PCR RSV (Negative); SARS PCR* Negative SARS-CoV-2 (Negative)
[2025-02-13] MEDS: SODIUM CHLORIDE 0.9 % (FLUSH) 10 ML SYRINGE 5 ML IVF ×2 (10:26→20:54)
[2025-02-13] MEDS: OSELTAMIVIR PHOSPHATE 75 MG CAPSULE PO ×2 (10:26→20:54)
[2025-02-13] MEDS: BUPRENORPHINE-NALOX 8-2MG FILM 1 EACH SUBLINGUAL (13:06)
--- NOTE | 2025-02-13 15:15 | PM.IMHP1 ---
Assessment and Plan Assessment and plan (1) Influenza A: Problem comment: - oseltamivir 75 mg p.o. b.i.d. x5 days Status: Acute (2) Acute on chronic hypoxic respiratory failure: Problem comment: - reinitiate her oxygen therapy with goal of maintaining saturation values around 70% Status: Acute (3) Severe pulmonary hypertension: Problem comment: - continue with outpatient medications Status: Acute (4) CHF (congestive heart failure): Problem comment: - continue with outpatient medications - check transthoracic echocardiogram Status: Acute (5) COPD (chronic obstructive pulmonary disease): Problem comment: - scheduled and p.r.n. bronchodilators plus oral steroids Status: Acute (6) Tobacco use: Status: Acute Plan 1. Reviewed impression, plans, recommendations with patient 2. Answered her questions to her satisfaction 3. Patient agreeable with above stated plans and recommendations Total Time Spent Total Time Spent: 70 minutes Hospitalist- H&P: HPI History of Present Illness Date Seen: 02/13/25 Chief complaint: shortness of breath Narrative: Allison Schulz is a 54 year old woman presents to the emergency department with a 2-3 day history of increasing dyspnea and cough. Drove herself here today on room air, without oxygen supplementation. Is supposed to be on oxygen supplementation but she usually does not use it at all, if she does use it sometimes she uses at nighttime only. Has had to use oxygen supplementation for the last day due to increasing dyspnea. Reportedly a granddaughter has an upper respiratory tract illness. Patient checked home antigen test for COVID-19 and influenza yesterday which was negative. Denies fevers, rigors, diaphoresis. Has had increased dyspnea at rest and increased dyspnea with exertion. Has increased sputum production with coughing. Taking nebulized treatments but not getting a lot of prolonged relief with this. Acknowledges chronic hypoxia with baseline oxygen saturations of around 70% on room air due to underlying COPD, severe pulmonary hypertension, possibly additional cardiomyopathy associated with prior cardiac septal defect not otherwise specified. Review of Systems Status of ROS: Reports: 10 or more systems reviewed and unremarkable except as noted in History and below Narrative: 6 minute walk at [facility] in April 2024: Candie Graham M .D., Ph.D. - 05/01 1:30 PM CDT? Candie Graham M .D., Ph.D. ? ? 04/20 ?2:50 PM Si x Minute Walk Per formed by: Sean Bowens CRAT Authorized by: Lubna Durant M. D. ? Were medicati ons taken in the ast 24 hours?: yes ? PRE WALK Adele tive Device: ?None 6 Min Walk Dista nce Type: ?Track H eight (cm): ?170 W eight (kg): ?65 BM I: ?22.5 Resting H eart Rate: ?76 Hea rt Rate Source: ?P ulse Oximeter Resp Rate: Resting SpO 2: ?83 SpO2 Site: ?Forehead Resting BP: ?92/60 BP Cuff Arm: ?Left BP Cuf f Size: ?RegularSu pplemental Oxygen used: ?Supplementa l Oxygen Not Used Angina Scale: ?0 - No Angina Jesse Dy spnea: ?0 - Nothin g at all Jesse Fati suzie: ?0.5 - Very, Very Slight POST WALK Heart Rate: ? 88 Heart Rate Sour ce: ?Pulse Oximete r SpO2: ?80 BP: ?1 16/62 BP Cuff Side : ?Left Angina Sca le: ?0 - No Angina Jesse Dyspnea: ?1 - Very Slight Jesse Fatigue: ?0.5 - V jami, Very Slight T sandie of Test: ?13:2 0 CDT Total Distan ce Walked (Feet): ?1120 Total Distan ce Walked (Meters) : ?341.38 Total # of Times Stopped: ?0 Time Stopped (S econds): ?0 Time W alked (Seconds): ? 360 CALCULATIONS Estimated MPH: ?2. 1 Estimated METs: ?2.61 % of Predict ed Distance: ?58.9 3 COMMENTS Patien t's base line SpO2 was 84%. ?At the end of the walk te st, SpO2 was at 80 %. After resting f or 2-3 minutes, Sp O2 was back up to 83%. ?? Medical Decision Making Medical Decision Making Code Status: DNR DNI resuscitation status Has patient completed a Health Care Directive: No During This Stay, Who Would You Like To Make Decisions For You In The Event You Are Unable To Make Them For Yourself?: Primary contact is Kelli, the daughter whom she lives with. Secondary contact is her other daughter, Celina. [facility] Medical History (Updated 02/13/25 @ 15:29 by Chad Slade MD) Shortness of breath ?R06.02 - Shortness of breath (ICD-10) Constipation ?K59.00 - Constipation, unspecified (ICD-10) Hypomagnesemia ?E83.42 - Hypomagnesemia (ICD-10) Hemarthrosis ?M25.00 - Hemarthrosis, unspecified joint (ICD-10) Fracture of tibial plateau, closed ?S82.143A - Displaced bicondylar fracture of unspecified tibia, initial encounter for closed fracture (ICD-10) Fracture of ribs, multiple ?S22.49XA - Multiple fractures of ribs, unspecified side, initial encounter for closed fracture (ICD-10) Traumatic fracture of sternum ?S22.20XA - Unspecified fracture of sternum, initial encounter for closed fracture (ICD-10) Tobacco use ?Z72.0 - Tobacco use (ICD-10) Severe pulmonary hypertension ?I27.20 - Pulmonary hypertension, unspecified (ICD-10) CHF (congestive heart failure) ?I50.9 - Heart failure, unspecified (ICD-10) COPD (chronic obstructive pulmonary disease) ?J44.9 - Chronic obstructive pulmonary disease, unspecified (ICD-10) Social History What is your current living situation?: I presently have a place to live Problems where you live: no known problems In the past 12 months, utilities in danger of being shut off: no In past 12 months, lack of transportation kept you from medical appts, meetings, work, or getting things needed for daily living: no In the past 12 mos, have been you worried that your food would run out before you had money to buy more?: never true In the past 12 mos, the food you bought just didn't last and you didn't have money to buy more?: never true Smoking Status: Current every day smoker What tobacco products do you use: cigarettes Smoking packs per day: 0.5 Smoking cigarettes per day: 10.0 Do you use any of these nicotine containing products: None Second hand tobacco smoke exposure: No How often do you have a drink containing alcohol: never AUDIT-C Alcohol total score: 0 Non-prescribed substance use: denies use Caffeine: Yes How often does anyone, including family, friends and others, physically hurt you: never How often does anyone, including family, friends and others, insult or talk down to you: never How often does anyone, including family, friends and others, threaten you with harm: never How often does anyone, including family, friends and others, scream or curse at you: never service: No Meds Home Medications and Allergies Home Medications ?Medication ?Instructions ?Recorded ?Confirmed ?Type albuterol sulfate 90 mcg/actuation 2 puff inhalation QID PRN 01/10/22 02/13/25 History aerosol inhaler (ProAir HFA) ipratropium 0.5 mg-albuterol 3 mg 3 ml inhalation QID 01/11/22 02/13/25 History (2.5 mg base)/3 mL nebulization soln sildenafil (pulm.hypertension) 20 20 mg PO DAILY 01/11/22 02/13/25 History mg tablet prednisone 20 mg tablet See Rx Instructions .Route 06/25/22 02/13/25 Rx .COMPLEX #20 tabs nebulizer accessories #1 ea 11/14/22 11/02/23 Rx buprenorphine 8 mg-naloxone 2 mg 1 film sublingual DAILY 02/13/25 02/13/25 History sublingual film (Suboxone) fluticasone 250 mcg-salmeterol 50 1 inh inhalation BID 02/13/25 02/13/25 History mcg/dose blistr powdr for inhalation (Advair Diskus) furosemide 40 mg tablet 40 mg PO DAILY 02/13/25 02/13/25 History macitentan 10 mg tablet (Opsumit) 10 mg PO DAILY 02/13/25 02/13/25 History multivitamin (Daily Multi-Vitamin 1 tab PO DAILY 02/13/25 02/13/25 History tablet) Allergies Allergy/AdvReac Type Severity Reaction Status Date / Time Sulfa (Sulfonamide Allergy Severe Verified 05/17/24 00:10 Antibiotics) Exam Narrative: Exam Narrative: I 1st examined patient in the emergency department and secondly in her hospital room. Working hard at breathing. Oxygen supplementation via nasal cannula at 6 liters/minute with oxygen saturation values around 70. When she 1st arrived to the emergency department her room air oxygen saturation was around 50-55%. Normally her oxygen saturation values are around 70% according to her. Alert and oriented to self, place, time, situation. Friendly, articulate, cooperative. Clear runny nose. No conjunctival injection or icterus. Oropharynx benign. Dentition in fair repair. Tympanic membranes unremarkable. Neck is supple. Midline trachea. No head neck lymphadenopathy. Lungs with scattered rhonchi and occasional wheezes. Left greater than right basilar end inspiratory rales. Heart tones with regular rhythm. Systolic and diastolic murmurs noted. Abdomen benign. Trace edema pretibially bilaterally. No focal motor neurologic deficits. Skin warm, dry, intact. Const: Vital Signs, click to edit/add: Vital Signs - 24 hr 02/13/25 05:24 02/13/25 05:24 02/13/25 05:33 Temperature 36.8 C Pulse Rate Pulse Rate [Right Pulse Oximeter] 82 Pulse Rate [Right Radial] Respiratory Rate 34 H Blood Pressure Blood Pressure [Le ft Arm] Blood Pressure [Ri ght Upper Arm] 109/72 Pulse Oximetry 75 L 56 L 56 L Oxygen Delivery Me thod Room Air Room Air Oxygen Flow Rate 02/13/25 06:14 02/13/25 07:01 02/13/25 08:28 Temperature 37.1 C Pulse Rate 73 69 Pulse Rate [Right Pulse Oximeter] Pulse Rate [Right Radial] 86 Respiratory Rate 24 20 24 Blood Pressure 109/73 106/70 Blood Pressure [Le ft Arm] 102/74 Blood Pressure [Ri ght Upper Arm] Pulse Oximetry 79 L 80 L 85 L Oxygen Delivery Me thod OxyMask Oxygen Flow Rate 6 02/13/25 10:40 02/13/25 14:59 Temperature 37.1 C Pulse Rate Pulse Rate [Right Pulse Oximeter] Pulse Rate [Right Radial] 86 Respiratory Rate 18 18 Blood Pressure Blood Pressure [Le ft Arm] 95/65 Blood Pressure [Ri ght Upper Arm] Pulse Oximetry 88 88 Oxygen Delivery Me thod OxyMask OxyMask Oxygen Flow Rate 6 6 Hospitalist - H&P: Result Labs Labs: Short CBC 02/13/25 Range/Units 05:28 WBC 5.41 (4.50-11.00) K/uL Hgb 17.0 H (12.0-16.0) gm/dL Hct 53.1 H (33.0-51.0) % Plt Count 69 L (140-440) K/uL BMP 02/13/25 05:28 Sodium 135 Potassium 4.8 Chloride 98 Carbon Dioxide 33 H BUN 26 Creatinine 0.8 Glucose 92 Calcium 8.5 Cardiac Enzymes 02/13/25 Range/Units 05:28 Troponin I 0.02 (0.01-0.04) ng/mL Liver Function 02/13/25 Range/Units 05:28 Total Bilirubin 0.8 (0.1-1.5) mg/dL AST 90 H (12-35) U/L ALT 94 H (4-35) U/L Alkaline Phosphatase 102 (40-150) U/L Albumin 3.9 (3.3-5.0) g/dL ECG Attestation: I personally reviewed and interpreted this ECG as follows: ECG interpretation date: 02/13/25 Prior ECG tracings: not available for review Interpretation: Normal sinus rhythm. Right axis deviation. Incomplete right bundle branch block. Imaging Chest x-ray: Attestation: I have reviewed the pertinent imaging results. Radiologist's impression: IMPRESSION: 1. Sternotomy. Enlarged heart. Dilated aorta. Profoundly enlarged central pulmonary arteries. Similar appearance to studies dating back to 2022. Likely related to congenital cardiac disease and associated surgical procedures. 2. Linear areas of atelectasis and scarring. 3. Focal opacities at both bases, left greater than right. This is new and could represent atelectasis or developing infiltrate. 4. No pleural effusion or pneumothorax.
[2025-02-13] MEDS: Fluticasone Propion-Salmeterol [Advair Diskus] 250-50 mcg/dose IH (20:54)
--- NOTE | 2025-02-13 22:27 | PC.NURSE ---
Patient ambulates independently in room, she is on precautions for influenza. Patient uses 6 liters O2 via oxy mask or NC maintaining saturations 80-88% during this shift, exp wheezes heard on the left. Patient is using her Aerobika and incentive spirometer as ordered. Patient has been interchanging forehead and finger probe per comfort. Nebulizers given as ordered. PIV in Right forearm patent. Echo scheduled for 02/14/2025.
[2025-02-14 00:06] VITALS: BP 110/78; PULSE 72; RESP 20; TEMP 37; O2SAT 82
[2025-02-14 04:08] VITALS: BP 91/64; PULSE 72; RESP 20; TEMP 36.3; O2SAT 85
[2025-02-14 06:00] VITALS: RESP 20; O2SAT 82
--- NOTE | 2025-02-14 06:23 | PC.NURSE ---
[id number]: Patient friendly and cooperative. Independent in room. Denies pain. Denies CP/N/V. Afebrile. Independent with using Aerobika and IS. O2 sats 80-84% on 2-4 Lt NC during noc.
[2025-02-14] MEDS: cefTRIAXone 1 GM in 0.9 % SODIUM CHLORIDE Mini-bag 100 ML IVPB (06:32)
--- NOTE | 2025-02-14 06:58 | PC.NURSE ---
Pt is refusing blood draw this am until she talks to the
[2025-02-14 07:00] VITALS: BP 104/67; PULSE 62; RESP 20; TEMP 36.9; O2SAT 80
[2025-02-14] MEDS: AZITHROMYCIN 250 MG TABLET PO (07:25)
[2025-02-14] MEDS: IPRAT-ALBUT 0.5-2.5 MG/3 ML NEB 1 NEB IH (08:15)
--- NOTE | 2025-02-15 16:26 | PM.DS1 ---
DS: Providers Provider Date Seen: 02/14/25 Date of admission: 02/13/25 08:09 Primary care physician: Ro Norton, STRATEGIC ADVISOR, HAND LENS POLISHER Admitting Clinician: Chad Slade MD Consults: 02/13/25 08:40 Consult to Respiratory Therapy [CONS] Routine Comment: Reason(s) for RT Consult:: Consult Comment: Aerobika devise use hourly while awake Attending Physician on discharge: Chad Slade MD Date of Discharge: 02/14/25 DS: Diagnosis Discharge Diagnosis (1) Influenza A: Status: Acute Problem details: - oseltamivir 75 mg p.o. b.i.d. x5 days (2) Acute on chronic hypoxic respiratory failure: Status: Acute Problem details: - reinitiate her oxygen therapy with goal of maintaining saturation values around 70% (3) Severe pulmonary hypertension: Status: Acute Problem details: - continue with outpatient medications (4) COPD (chronic obstructive pulmonary disease): Status: Acute Problem details: - scheduled and p.r.n. bronchodilators plus oral steroids (5) CHF (congestive heart failure): Status: Acute Problem details: - continue with outpatient medications - check transthoracic echocardiogram (6) Tobacco use: Status: Acute DS: Summary Hospital Course Hospital Course: Admission history of present illness: ?54 year old woman presents to the emergency department with a 2-3 day history of increasing dyspnea and cough. Drove herself here today on room air, without oxygen supplementation. Is supposed to be on oxygen supplementation but she usually does not use it at all, if she does use it sometimes she uses at nighttime only. Has had to use oxygen supplementation for the last day due to increasing dyspnea. ?Reportedly a granddaughter has an upper respiratory tract illness. Patient checked home antigen test for COVID-19 and influenza yesterday which was negative. Denies fevers, rigors, diaphoresis. Has had increased dyspnea at rest and increased dyspnea with exertion. Has increased sputum production with coughing. Taking nebulized treatments but not getting a lot of prolonged relief with this. Acknowledges chronic hypoxia with baseline oxygen saturations of around 70% on room air due to underlying COPD, severe pulmonary hypertension, possibly additional cardiomyopathy associated with prior cardiac septal defect not otherwise specified.? On hospital day 2 the patient states she felt close to baseline. She was stable with the level of stability she achieved during her short hospital stay. She states she is ready for discharge. She continued to require oxygen to maintain saturations 70-80%, her baseline. Tolerated the oseltamivir. Agreed to have follow-up with her primary care physician, correctional officer sergeant, quality assurance director as planned and as warranted. Striving to achieve smoking cessation still. Status at Discharge Functional status at discharge: independent ambulation Overall status at discharge: patient is progressing back to baseline Time Spent with Patient Time attestation: Total time spent providing and/or coordinating discharge services: Time spent: Less than 30 minutes Exam Narrative: Exam Narrative: Alert and oriented to self, place, time, situation. Friendly, articulate, cooperative. Clear runny nose. No conjunctival injection or icterus. Oropharynx benign. Dentition in fair repair. Tympanic membranes unremarkable. Neck is supple. Midline trachea. No head neck lymphadenopathy. Lungs with scattered rhonchi and occasional wheezes. Left greater than right basilar end inspiratory rales. Heart tones with regular rhythm. Systolic and diastolic murmurs noted. Abdomen benign. Trace edema pretibially bilaterally. No focal motor neurologic deficits. Skin warm, dry, intact. DS: Data Imaging Chest x-ray: Radiologist's impression: IMPRESSION: 1. Sternotomy. Enlarged heart. Dilated aorta. Profoundly enlarged central pulmonary arteries. Similar appearance to studies dating back to 2022. Likely related to congenital cardiac disease and associated surgical procedures. 2. Linear areas of atelectasis and scarring. 3. Focal opacities at both bases, left greater than right. This is new and could represent atelectasis or developing infiltrate. 4. No pleural effusion or pneumothorax. Discharge Plan Discharge Disposition: Home, Self-Care Date of Admission: 02/13/25 08:09 Attending Provider on Discharge: Chad Slade Primary Care Provider: Ro Norton Condition: Stable Anticipated Discharge Date/Time: 02/14/25 09:00 Discharge Medications: New prednisone 20 mg Tablet 40 mg PO DAILY 4 Days Qty: 8 0RF oseltamivir 75 mg Capsule 75 mg PO BID 4 Days Qty: 8 0RF azithromycin 250 mg tablet 250 mg PO DAILY 3 Days Qty: 3 0RF Continued albuterol sulfate [ProAir HFA] 90 mcg/actuation HFA aerosol inhaler 2 puff INHALATION QID PRN ipratropium-albuterol 0.5 mg-3 mg(2.5 mg base)/3 mL solution for nebulization 3 ml INHALATION QID sildenafil (pulm.hypertension) 20 mg tablet 20 mg PO DAILY (DME) nebulizer accessories Kit See Rx Instructions .Route Qty: 1 0RF Rx Instructions: As directed buprenorphine-naloxone [Suboxone] 8-2 mg film 1 film sublingual DAILY furosemide 40 mg tablet 40 mg PO DAILY Opsumit 10 mg tablet 10 mg PO DAILY multivitamin [Daily Multi-Vitamin] Tablet 1 tab PO DAILY fluticasone propion-salmeterol [Advair Diskus] 250-50 mcg/dose blister with device 1 inh inhalation BID Discontinued prednisone 20 mg tablet See Rx Instructions .ROUTE .COMPLEX Qty: 20 0RF Rx Instructions: 60 mg daily for 3 days then 40 mg daily for 4 days then 20 mg daily for 3 days Discharge Orders: Discharge Order (Routine); Ordered 02/14/25 Ordered By: Chad Slade Patient Education: Prednisone (By mouth), Azithromycin (By mouth), Oseltamivir (By mouth), Influenza (DC), Flu Shot (Vaccine) for Adults (DC), Pulmonary Arterial Hypertension (DC) Activity Level: Activity as Tolerated Discharge Diet: Regular Follow Up Appointments: Ro Norton, SHIVAM, HAND LENS POLISHER [Primary Care Provider, Family Practice] - 02/24/25 1:25 pm Referral Note: [facility] for follow up with Dr. Maria Del Carmen Norton is no longer working at [employer] Forms: [employer] Info Instructions
== END 2025-02-14 08:45 | disposition home or self-care (01) ==
LOC: ED 08:07 → MEDSURG 08:09
PROVIDERS: Admitting Provider Internal Medicine; Emergency Provider Family Medicine; PCP Nurse Practitioner Family; Visit Provider Internal Medicine
DX: J10.1 Influenza due to other identified influenza virus with other respiratory manifestations (principal); J96.20 Acute and chronic respiratory failure, unspecified whether with hypoxia or hypercapnia; Z72.0 Tobacco use; I27.20 Pulmonary hypertension, unspecified; I50.9 Heart failure, unspecified; J44.9 Chronic obstructive pulmonary disease, unspecified
CPT/HCPCS: 36415; 71045; 80048; 80053; 82803; 82977; 83605; 83735; 83880; 84145; 84450; 84460; 84484; 85025; 85027; 86140; 87631; 93005; 94761; 96365; 99284; 99285; A9270; G0378; J0574; J0696; J7512